=== PATIENT | female | born 1945 | race Caucasian/White ===

== ENCOUNTER 2017-03-20 00:54 | Inpatient (IN) ==
[2017-03-20] MEDS ORDERED: Ipratropium/Albuterol Neb 3 ML IH ONE (00:55)
[2017-03-20] MEDS ORDERED: predniSONE 20 MG TABLET PO ONE (00:56)
[2017-03-20] MEDS ORDERED: methylPREDNISolone 125 MG/2 ML VIAL IVP ONE (01:11)
--- NOTE | 2017-03-20 01:22 | Emergency Department Note ---
Disposition Clinical Impression: Acute exacerbation of chronic obstructive airways disease, Hypoxia Disposition: Admitted As Inpatient Condition: Undetermined Referrals: Lokesh Cooper MD [Primary Care Provider] - Forms: ED Satisfaction Letter Time of Disposition: 01:51 SOB HPI - General Chief Complaint: ED Shortness of Breath/Dyspnea Stated Complaint: matheus Time Seen by Provider: 03/20/17 00:55 Source: patient Mode of arrival: EMS Limitations: no limitations Nursing Notes Reviewed: Yes Vital Signs Reviewed: Yes - History of Present Illness 71-year-old female with history of asthma and COPD arrives [facility] [place] emergency department complaining of shortness of breath after the patient woke up this evening. The patient states that she woke up she cannot catch her breath. Upon arrival by EMS they stated that the patient's O2 saturation was 94% on room air. They quickly placed the patient on nasal cannula 6 L/m which jack her O2 saturation to 93%. The patient was complaining of epigastric pain radiating into her chest that was associated with this difficulty breathing. The patient denies any other complaints including nausea , vomiting, fever, chills, unilateral leg swelling, recent surgeries, recent immobilizations, hemoptysis, history of DVT or PE. 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 Severity: moderate, severe Consistency/Duration: constant Improves with: oxygen Worsens with: nothing Known history of: COPD Associated symptoms: Reports: chest pain Treatment prior to arrival: oxygen Cough present: No Sputum production: No - Related Data Home oxygen amount: none Home Medications Medication Instructions Recorded Confirmed Acetaminophen [Tylenol] 650 mg PO BID PRN 04/30/15 06/19/16 Aspirin Enteric Coated [Aspirin EC] 81 mg PO DAILY 04/30/15 06/19/16 Atorvastatin Calcium [Lipitor] 20 mg PO DAILY 04/30/15 06/19/16 Carvedilol [Coreg] 6.25 mg PO BID 04/30/15 06/19/16 Cyclosporine [Restasis] 1 drop OP BID 04/30/15 06/19/16 Esomeprazole Magnesium [Nexium] 40 mg PO DAILY 04/30/15 06/19/16 Fluticasone Propionate [Flovent 2 puff IH BID 04/30/15 06/19/16 Diskus] Isosorbide MONOnitrate [Isosorbide 60 mg PO DAILY 04/30/15 06/19/16 Mononitrate ER] Psyllium [Metamucil Fiber Singles 1 packet PO DAILY PRN 04/30/15 06/19/16 Packet] Alendronate Sodium [Fosamax] 70 mg PO MO 06/19/16 06/19/16 Cetirizine HCl [Zyrtec] 10 mg PO DAILY PRN 06/19/16 06/19/16 Levalbuterol [Xopenex INH] 2 puff IH Q6H 06/19/16 06/19/16 Potassium Chloride 20 meq PO BID 06/19/16 06/19/16 Quetiapine Fumarate [Seroquel] 50 mg PO HS 06/19/16 06/19/16 Previous Rx's Medication Instructions Recorded HYDROcodone/Acet 7.5/325 mg [[place] 1 tab PO BID PRN #20 tablet 05/07/15 7.5-325 mg] Calcium Carbonate/Vitamin D3 1 each PO DAILY #90 capsule 06/20/16 [Calcium 600 + Vit D Softgel] Docusate [Colace] 100 mg PO BID PRN 30 Days 06/20/16 Allergies Allergy/AdvReac Type Severity Reaction Status Date / Time ciprofloxacin [From Cipro] Allergy Hives Verified 06/19/16 11:04 meperidine [From Demerol] AdvReac Vomiting Verified 06/19/16 11:04 All systems ED: reviewed and negative except as stated. Constitutional: Denies: fever, chills, weakness, weight change Cardiovascular: Reports: chest pain. Denies: palpitations, dyspnea on exertion , edema, syncope Respiratory: Reports: dyspnea. Denies: cough, wheezes, hemoptysis, stridor Gastrointestinal: Denies: abdominal pain, nausea, vomiting, diarrhea, constipation, hematemesis, melena, hematochezia Musculoskeletal: Denies: back pain, neck pain, arthralgia, myalgia Integumentary: Denies: rash, abrasion, lesions Neurological: Denies: headache, weakness, numbness, paresthesias, confusion, abnormal gait, vertigo Past Medical History - Past Medical History Attestation: Yes The following information was validated with the patient. 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 history - Social History Smoking Status: Never smoker Smokeless Tobacco Status: No Alcohol use: Reports: none Drug use: Reports: none Physical Exam - General Limitations: no limitations General appearance: alert, in distress (moderate respiratory) - Head Head exam: atraumatic, normocephalic, normal inspection - Chest Chest inspection: Present: normal inspection, symmetric chest wall rise - Respiratory Respiratory exam: Present: wheezes (Diffuse with overall decreased breath sounds ) - Cardiovascular Cardiovascular exam: Present: regular rate, normal rhythm, normal heart sounds - Abdominal Exam Abdominal exam: Present: soft, Non-Tender. Absent: tenderness, distention, guarding, rebound, rigidity - Extremities Exam Extremities exam: Present: normal inspection, full ROM. Absent: tenderness, pedal edema - Neurological Exam Neurological exam: Present: alert, oriented X3 - Skin Skin exam: Present: warm, dry, intact, normal color Course Vital Signs Temperature 97.6 F 03/20/17 00:54 Pulse Rate 74 03/20/17 00:54 Respiratory Rate 24 03/20/17 00:54 Blood Pressure 114/102 03/20/17 00:54 O2 Sat by Pulse Oximetry 96 03/20/17 00:54 Temperature 97.6 F 03/20/17 00:54 Pulse Rate 70 03/20/17 01:29 Respiratory Rate 18 03/20/17 01:29 Blood Pressure 94/73 03/20/17 01:29 O2 Sat by Pulse Oximetry 100 03/20/17 01:29 Oxygen Delivery Oxygen Delivery Bipap Shortness of Breath/Dyspnea - MDM Narrative Medical decision making narrative: Patient noted to have bilateral trace pleural effusions on chest x-ray. This appears to be more of a COPD exacerbation and CHF exacerbation. The patient has had no unilateral leg swelling or bilateral leg swelling noted. No rails on auscultation. The patient is resting comfortably on BiPAP at this time. The patient was administered DuoNeb as well as steroids. She is resting comfortably on BiPAP. We will admit the patient to the hospital for further workup and care given her symptoms and finding of hypoxia at 62% on room air when found by EMS. The patient agrees to this plan. The patient was accepted by Dr. Diaz. - Lab Data Lab results reviewed: Yes I reviewed the patient's lab results. Result diagrams: 03/20/17 01:10 03/20/17 01:10 Lab Results 03/20/17 03/20/17 03/20/17 Range/Units 01:10 01:10 01:10 WBC 7.9 (4.3-11.1) K/mcL RBC 3.79 L (3.82-4.97) M/mcL Hgb 11.2 L (11.5-15.4) g/dL Hct 34.9 L (35.3-44.9) % MCV 92.1 (83.0-100.0) fL MCH 29.6 (28.0-33.3) pg MCHC 32.1 (31.6-35.5) g/dL RDW 13.6 (11.5-14.5) % Plt Count 160 (140-400) K/mcL MPV 10.0 (9.4-12.4) fL Immature Gran % 3.3 (0-4) % Seg Neutrophils % 83.5 % Lymphocytes % 8.1 % Monocytes % 2.4 % Eosinophils % 2.3 % Basophils % 0.4 % Neutrophils # 6.6 (1.6-8.9) K/mcL Lymphocytes # 0.6 (0.6-4.6) K/mcL Monocytes # 0.2 (0.0-1.3) K/mcL Eosinophils # 0.2 (0.0-0.6) K/mcL Basophils # 0.0 (0.0-0.2) K/mcL Sodium 140 (136-145) mEq/L Potassium 4.3 (3.5-4.5) mEq/L Chloride 106 (98-109) mEq/L Carbon Dioxide 22 (19-29) mEq/L BUN 27 H (7-20) mg/dL Creatinine 1.88 H (0.57-1.11) mg/dL Est GFR ( Amer) 32 L (> 60) Est GFR (Non-Af Amer) 26 L (> 60) BUN/Creatinine Ratio 14 (6-26) Glucose 118 H (70-99) mg/dL Calculated Osmolality 296 (280-300) Lactic Acid (0.5-2.2) mmol/L Calcium 9.3 (8.6-10.8) mg/dL Total Bilirubin 0.4 (0.2-1.2) mg/dL AST 20 (5-34) Units/L ALT 14 (0-55) Units/L Alkaline Phosphatase 75 (38-126) Units/L Troponin I 0.00 (0-0.03) ng/mL Serum Total Protein 7.9 (6.0-8.3) g/dL Albumin 3.5 (3.5-5.0) g/dL Globulin 4.4 H (2.4-3.5) g/dL Albumin/Globulin Ratio 0.8 L (1.1-2.2) 03/20/17 Range/Units 01:10 WBC (4.3-11.1) K/mcL RBC (3.82-4.97) M/mcL Hgb (11.5-15.4) g/dL Hct (35.3-44.9) % MCV (83.0-100.0) fL MCH (28.0-33.3) pg MCHC (31.6-35.5) g/dL RDW (11.5-14.5) % Plt Count (140-400) K/mcL MPV (9.4-12.4) fL Immature Gran % (0-4) % Seg Neutrophils % % Lymphocytes % % Monocytes % % Eosinophils % % Basophils % % Neutrophils # (1.6-8.9) K/mcL Lymphocytes # (0.6-4.6) K/mcL Monocytes # (0.0-1.3) K/mcL Eosinophils # (0.0-0.6) K/mcL Basophils # (0.0-0.2) K/mcL Sodium (136-145) mEq/L Potassium (3.5-4.5) mEq/L Chloride (98-109) mEq/L Carbon Dioxide (19-29) mEq/L BUN (7-20) mg/dL Creatinine (0.57-1.11) mg/dL Est GFR ( Amer) (> 60) Est GFR (Non-Af Amer) (> 60) BUN/Creatinine Ratio (6-26) Glucose (70-99) mg/dL Calculated Osmolality (280-300) Lactic Acid 2.2 (0.5-2.2) mmol/L Calcium (8.6-10.8) mg/dL Total Bilirubin (0.2-1.2) mg/dL AST (5-34) Units/L ALT (0-55) Units/L Alkaline Phosphatase (38-126) Units/L Troponin I (0-0.03) ng/mL Serum Total Protein (6.0-8.3) g/dL Albumin (3.5-5.0) g/dL Globulin (2.4-3.5) g/dL Albumin/Globulin Ratio (1.1-2.2) - Radiology Data Radiology results reviewed: Yes I reviewed the patient's radiology results. - EKG Data EKG attestation: Yes I reviewed and interpreted this EKG. EKG results narrative: Heart rate 81 bpm. MA interval 174 ms. QTc 382 ms. Normal axis. Normal sinus rhythm. No ST elevation or ST depression noted. EKG similar to EKG from 06/19/2016.
[2017-03-20 01:24] LABS: Basophils % 0.4 %; Eosinophils # 0.2 K/mcL (0.0-0.6); Eosinophils % 2.3 %; Hematocrit 34.9 % (35.3-44.9); Hemoglobin 11.2 g/dL (11.5-15.4); Immature Granulocytes % 3.3 % (0-4); Lymphocytes # 0.6 K/mcL (0.6-4.6); Lymphocytes % 8.1 %; Mean Corpuscular HGB Conc 32.1 g/dL (31.6-35.5); Mean Corpuscular Hemoglobin 29.6 pg (28.0-33.3); Mean Corpuscular Volume 92.1 fL (83.0-100.0); Monocytes # 0.2 K/mcL (0.0-1.3); Monocytes % 2.4 %; Neutrophils # 6.6 K/mcL (1.6-8.9); Platelet Count 160 K/mcL (140-400); Red Blood Count 3.79 M/mcL (3.82-4.97); Red Cell Distribution Width 13.6 % (11.5-14.5); Segmented Neutrophils % 83.5 %
--- NOTE | 2017-03-20 01:37 | Emergency Department Note ---
START Narrative - START START: I examined this patient and my medical decision-making was reviewed with the MOBILE LOUNGE DRIVER/PA/Advanced Practice Nurse/Resident Physician. I agree with the documented findings, disposition and treatment plan as described except to the extent set forth below. ED attending note: Patient seen with emergency medicine resident Dr. Head. Please see a copy of his note for details of the H&P, evaluation, management and disposition of this patient. We independently had [id number] contact with the patient Briefly: 71-year-old female by EMS for shortness of breath. Home O2 dependent COPD or woke up with extreme shortness of breath with sats down into the 70s. Perked up to the low 90s with supplemental oxygen. Patient had some expiratory wheezing some respiratory distress much improved after the emergent application of BiPAP. An breathing treatments. Provided 45 minutes critical care services to this patient. Plan is x-ray,labs, breathing treatments and admission. Disposition pending.
[2017-03-20 01:38] LABS: Albumin 3.5 g/dL (3.5-5.0); Albumin/Globulin Ratio 0.8 (1.1-2.2); Bilirubin,Total 0.4 mg/dL (0.2-1.2); Calcium 9.3 mg/dL (8.6-10.8); Globulin 4.4 g/dL (2.4-3.5); Potassium 4.3 mEq/L (3.5-4.5); Total Protein 7.9 g/dL (6.0-8.3)
[2017-03-20] MEDS ORDERED: Naloxone 0.4 MG/ML INJ IVP PRN (03:46)
[2017-03-20] MEDS ORDERED: Ondansetron 4 MG/2 ML VIAL IVP PRN (03:46)
[2017-03-20] MEDS ORDERED: Ipratropium/Albuterol Neb 3 ML IH PRN (03:48)
[2017-03-20] MEDS ORDERED: *HR* OxyCODONE/APAP 7.5/325 TABLET PO PRN (03:49)
--- NOTE | 2017-03-20 03:56 | Internal Med History&Physical ---
Date of Encounter: 03/20/17 Time of Encounter: 03:20 Assessment and Plan (1) Acute respiratory failure with hypoxia Current visit: Yes Status: Acute Secondary to COPD exacerbation Improved with O2 supplementation continue systemic steroids (Methylprednisolone 40mg IV q12h) Bronchodilator support O2 supplementation Bipap support as needed ABG as needed Patient will need to undergo O2 qualification study prior to discharge continue to monitor O2 saturation. Goal O2 sat: 89-92% Please verify home medications and resume after verification (2) Acute exacerbation of chronic obstructive airways disease Current visit: Yes Status: Acute as listed above (3) Chronic back pain Current visit: No Status: Chronic continue home medications after verification Qualifiers: Back pain location: low back pain Back pain laterality: unspecified Sciatica presence: unspecified whether sciatica present Qualified Code(s): M54.5 - Low back pain; G89.29 - Other chronic pain (4) Chronic kidney disease Current visit: No Status: Chronic Renal function at baseline continue to monitor Qualifiers: Chronic kidney disease stage: stage 3 (moderate) Qualified Code(s): N18.3 - Chronic kidney disease, stage 3 (moderate) (5) Hypertension Current visit: No Status: Chronic BP within acceptable range continue home medications after verification Qualifiers: Hypertension type: essential hypertension Qualified Code(s): I10 - Essential (primary) hypertension (6) Congestive heart failure Current visit: Yes Status: Chronic No clinical signs of acute exacerbation continue home medications in am Qualifiers: Congestive heart failure type: diastolic Congestive heart failure chronicity: chronic Qualified Code(s): I50.32 - Chronic diastolic (congestive ) heart failure (7) DVT prophylaxis Current visit: Yes Status: Acute Heparin SQ Internal Medicine - H&P: HPI Chief complaint: shortness of breath Admitted From: Home Plans for Post Hospital Care: Home History of present illness: Ms. Barber is a 71 year old female with PMH of HTN, CKD stage 3, asthma, COPD , chronic back pain, Diastolic CHF, legal blindness, GERD, and psych disorder who was brought to the ER for evaluation of severe respiratory distress. Patient reports of not being on home oxygen and had difficulty breathing. States she took her inhaler at home but that only provided her with mild relief due to which she came to the ER. Upon arrival she was found to have acute respiratory failure with hypoxia with O2 saturation in the 60s. Her respiratory distress improved with O2 supplementation. She reports of never being a smoker, however has COPD due to second hand smoking. At this time she is s/p receiving Solumedrol and duonebs. reports of significant relief in her respiratory status. Denies using oxygen therapy at home. Currently saturating well on nasal cannula. Denies any chest pain, abd pain, n/v, fever, or chills at this time. Reports of having two COPD exacerbations in the recent past. Please verify patient's home medications and start them in am. Past Med Surg Social Fam HX - Past Medical History Medical history: arthritis, asthma, cardiomyopathy, CHF, COPD, GERD, hyperlipidemia, hypertension, osteoporosis, renal disease, venous stasis, valvular heart disease, other Psychiatric history: anxiety, depression, other - Past Surgical History Surgical History: cataract, cholecystectomy, herniorrhaphy, hysterectomy, knee replacement, orthopedic, other, sinus surgery, other - Social History Smoking Status: Never smoker Smokeless Tobacco Status: No Alcohol use: none Drug use: none - Family History Sister Hx Family Endocrine Disorder: Yes Mother Living Status: Internal Medicine - H&P: Meds Acetaminophen [Tylenol] 650 mg PO BID PRN 04/30/15 [History] Aspirin Enteric Coated [Aspirin EC] 81 mg PO DAILY 04/30/15 [History] Atorvastatin Calcium [Lipitor] 20 mg PO DAILY 04/30/15 [History] Carvedilol [Coreg] 6.25 mg PO BID 04/30/15 [History] Cyclosporine [Restasis] 1 drop OP BID 04/30/15 [History] Esomeprazole Magnesium [Nexium] 40 mg PO DAILY 04/30/15 [History] Fluticasone Propionate [Flovent Diskus] 2 puff IH BID 04/30/15 [History] Isosorbide MONOnitrate [Isosorbide Mononitrate ER] 60 mg PO DAILY 04/30/15 [ History] Psyllium [Metamucil Fiber Singles Packet] 1 packet PO DAILY PRN 04/30/15 [ History] HYDROcodone/Acet 7.5/325 mg [[place] 7.5-325 mg] 1 tab PO BID PRN #20 tablet 05/07 [Rx] Alendronate Sodium [Fosamax] 70 mg PO MO 06/19/16 [History] Cetirizine HCl [Zyrtec] 10 mg PO DAILY PRN 06/19/16 [History] Levalbuterol [Xopenex INH] 2 puff IH Q6H 06/19/16 [History] Potassium Chloride 20 meq PO BID 06/19/16 [History] Quetiapine Fumarate [Seroquel] 50 mg PO HS 06/19/16 [History] Calcium Carbonate/Vitamin D3 [Calcium 600 + Vit D Softgel] 1 each PO DAILY #90 capsule 06/20/16 [Rx] Docusate [Colace] 100 mg PO BID PRN 30 Days 06/20/16 [Rx] Allergies ciprofloxacin [From Cipro] Allergy (Verified 06/19/16 11:04) Hives meperidine [From Demerol] Adverse Reaction (Verified 06/19/16 11:04) Vomiting All Systems PM: A 10-system review of systems was performed and is negative for pertinent findings except as documented above in the HPI. - Constitutional Constitutional: as per HPI - Constitutional Vitals: Temp Pulse Resp BP Pulse Ox 97.6 F 68 16 150/73 99 03/20/17 00:54 03/20/17 02:56 03/20/17 02:56 03/20/17 02:56 03/20/17 03:25 General appearance: Present: cooperative, A&O X 3, no acute distress, obese, answers questions appropriately - Head Head exam: Present: atraumatic, normocephalic - Eye Eye exam: Present: conjuntiva pink, sclera anicteric - Respiratory Respiratory exam: Present: decreased breath sounds. Absent: respiratory distress, wheezes - Cardiovascular Cardiovascular exam: Present: RRR, +S1, +S2, systolic murmur. Absent: diastolic murmur, gallop, rubs - GI/Abdominal GI/Abdominal exam: Present: normal bowel sounds, soft, no peritoneal signs. Absent: distended, tenderness - Extremities Exam Extremities exam: Present: pedal edema, warm, radial pulses palpable and symetrical. Absent: calf tenderness - Neurological Exam Neurological exam: Present: alert, oriented X3 - Psychiatric Psychiatric exam: Present: normal affect, normal mood Internal Med - H&P Results - Labs CBC & Chem 7: 03/20/17 01:10 03/20/17 01:10
[2017-03-20 04:54] LABS: Basophils % 0.1 %; Eosinophils # 0.1 K/mcL (0.0-0.6); Eosinophils % 0.9 %; Hematocrit 32.1 % (35.3-44.9); Hemoglobin 10.4 g/dL (11.5-15.4); Immature Granulocytes % 0.8 % (0-4); Lymphocytes # 0.5 K/mcL (0.6-4.6); Lymphocytes % 5.5 %; Mean Corpuscular HGB Conc 32.4 g/dL (31.6-35.5); Mean Corpuscular Hemoglobin 29.6 pg (28.0-33.3); Mean Corpuscular Volume 91.5 fL (83.0-100.0); Mean Platelet Volume 10.3 fL (9.4-12.4); Monocytes # 0.4 K/mcL (0.0-1.3); Monocytes % 3.6 %; Neutrophils # 8.8 K/mcL (1.6-8.9); Platelet Count 156 K/mcL (140-400); Red Blood Count 3.51 M/mcL (3.82-4.97); Red Cell Distribution Width 13.6 % (11.5-14.5); Segmented Neutrophils % 89.1 %
[2017-03-20 05:05] LABS: Magnesium 1.5 mg/dL (1.6-2.6); Phosphorous 2.6 mg/dL (2.3-4.7); Potassium 4.3 mEq/L (3.5-4.5)
[2017-03-20] MEDS: *HR* Heparin 5,000 UNIT/ML VIAL SQ SCH ×2 (05:59→16:07)
[2017-03-20] MEDS ORDERED: Pantoprazole 40 MG VIAL IVP SCH (06:30)
[2017-03-20] MEDS: Ipratropium/Albuterol Neb 3 ML IH SCH ×5 (07:45→23:25)
[2017-03-20] MEDS ORDERED: ALPRAZolam 0.5 MG TABLET PO PRN (07:56)
[2017-03-20] MEDS ORDERED: Magnesium Sulfate 2 GM in D5% in Water 100 ML IVPB ONE (07:59)
[2017-03-20] MEDS: Furosemide 40 MG TABLET PO SCH ×2 (08:56→20:47)
[2017-03-20] MEDS: Aspirin Enteric Coated 81 MG Tablet PO SCH (08:56)
[2017-03-20] MEDS: Isosorbide MONOnitrate (24 HR) 60 MG TAB.ER.24H PO SCH (08:56)
[2017-03-20] MEDS ORDERED: Furosemide 40 MG/4 ML VIAL IVP ONE (10:05)
--- NOTE | 2017-03-20 10:06 | Event Note ---
<Lloyd Mcginnis G - Last Filed: 03/20/17 10:03> Date of Encounter: 03/20/17 Time of Encounter: 10:04 Patient seen and examined at bedside. Patient states that her breathing feels slightly better than on admission. She does report some mild chest pain associated with deep breathing and cough. She denies fever, chills. On physical exam the patient has some scattered end expiratory wheezes, no rales or rhonchi noted. Heart is regular rate and rhythm with no murmurs rubs or gallops. Abdomen soft nontender nondistended with normoactive bowel sounds. Patient has 1+ lower extremity pitting edema. Plan is to continue current treatment for COPD exacerbation during IV steroids, antibiotics, scheduled bronchodilators. For patient's lower extremity edema we will continue with her home by mouth Lasix and give a one-time dose of IV Lasix. No shortness of breath, does not appear to be in acute heart failure. <Liu Shrestha - Last Filed: 03/20/17 17:22> Date of Encounter: 03/20/17 I examined this patient and my medical decision-making was reviewed with the SPOT REMOVER/PA/Advanced Practice Nurse/Resident Physician. I agree with the documented findings, disposition and treatment plan as described except to the extent set forth below.
[2017-03-20] MEDS: Acetaminophen 325 MG TABLET PO PRN ×2 (11:31→20:47)
[2017-03-20] MEDS: MethylPREDNISolone 40 MG/ML VIAL IVP SCH ×2 (11:32→20:47)
--- NOTE | 2017-03-20 13:08 | Electrocardiograph Report ---
[place] [address] Test Date: 2017-03-20 Pat Name: Janiya Barber Department: 105 Room: 2NE24 Gender: F Operations Developer: BRYCE : [id number] Requested By: Jose Rafael Head Order Number: [id number] Reading MD: Arnaud Strickland MD Measurements Intervals [place] Rate: 81 P: 59 NC: 174 QRS: 45 QRSD: 88 T: 61 QT: 345 QTc: 382 Interpretive Statements SINUS RHYTHM BASELINE ARTIFACT Electronically Signed On 03-20-2017 13:06:47 EDT by Arnaud Strickland MD
[2017-03-21] MEDS: Ipratropium/Albuterol Neb 3 ML IH SCH ×6 (04:08→23:39)
[2017-03-21] MEDS: *HR* Heparin 5,000 UNIT/ML VIAL SQ SCH ×2 (04:39→18:20)
[2017-03-21] MEDS: Isosorbide MONOnitrate (24 HR) 60 MG TAB.ER.24H PO SCH (08:24)
[2017-03-21] MEDS: Furosemide 40 MG TABLET PO SCH (08:24)
[2017-03-21] MEDS: Aspirin Enteric Coated 81 MG Tablet PO SCH (08:25)
[2017-03-21] MEDS: MethylPREDNISolone 40 MG/ML VIAL IVP SCH ×2 (08:25→22:05)
[2017-03-21 09:41] LABS: Albumin 3.2 g/dL (3.5-5.0); Albumin/Globulin Ratio 0.8 (1.1-2.2); Bilirubin,Total 0.2 mg/dL (0.2-1.2); Calcium 9.1 mg/dL (8.6-10.8); Globulin 4.1 g/dL (2.4-3.5); Potassium 4.4 mEq/L (3.5-4.5); Total Protein 7.3 g/dL (6.0-8.3)
[2017-03-21 09:45] LABS: Eosinophils % 0.1 %; Hematocrit 30.7 % (35.3-44.9); Hemoglobin 10.4 g/dL (11.5-15.4); Immature Granulocytes % 0.3 % (0-4); Lymphocytes # 0.6 K/mcL (0.6-4.6); Mean Corpuscular HGB Conc 33.9 g/dL (31.6-35.5); Mean Corpuscular Hemoglobin 30.4 pg (28.0-33.3); Mean Corpuscular Volume 89.8 fL (83.0-100.0); Mean Platelet Volume 10.9 fL (9.4-12.4); Monocytes # 0.4 K/mcL (0.0-1.3); Monocytes % 3.2 %; Neutrophils # 10.1 K/mcL (1.6-8.9); Platelet Count 162 K/mcL (140-400); Red Blood Count 3.42 M/mcL (3.82-4.97); Red Cell Distribution Width 13.8 % (11.5-14.5); Segmented Neutrophils % 91.4 %
--- NOTE | 2017-03-21 15:26 | Internal Med Progress Note ---
Date of Encounter: 03/21/17 Time of Encounter: 15:26 - Assessment and plan (1) Acute respiratory failure with hypoxia Current Visit: Yes Status: Acute Assessment and plan: Admitted with COPD exacerbation. On ceftriaxone/azithromycin Methyl prednisone every 12 hours Inhaled bronchodilators. Patient feels much better as compared to yesterday. Plan: We will continue present management (2) Acute exacerbation of chronic obstructive airways disease Current Visit: Yes Status: Acute Assessment and plan: Patient is much improved as compared to yesterday. Antibiotics are needed in view of COPD exacerbation. (3) Chronic kidney disease Current Visit: No Status: Chronic Assessment and plan: Noted that patient's creatinine has worsened. Lasix discontinued. Patient follows with Dr. Clark. If the creatinine is not downward trend tomorrow then we will get Dr. Barbour's help Qualifiers: Chronic kidney disease stage: stage 3 (moderate) Qualified Code(s): N18.3 - Chronic kidney disease, stage 3 (moderate) (4) Hypertension Current Visit: No Status: Chronic Assessment and plan: Presently within acceptable range Qualifiers: Hypertension type: essential hypertension Qualified Code(s): I10 - Essential (primary) hypertension - Subjective Interval history: Patient seen and examined. Chart reviewed. Patient is sitting up in a chair and was taking breathing treatment at the time of examination. Patient denies chest pain, shortness of breath, abdominal pain, nausea and vomiting. - Constitutional Vitals: Temp Pulse Resp BP Pulse Ox 97.6 F 64 16 118/60 96 03/21/17 12:04 03/21/17 12:04 03/21/17 12:04 03/21/17 12:04 03/21/17 12:04 General appearance: Present: cooperative, A&O X 3, no acute distress, obese, answers questions appropriately - Head Head exam: Present: atraumatic, normocephalic - Eye Eye exam: Present: PERRL, conjuntiva pink, sclera anicteric Pupils: Present: PERRL - Neck Neck exam general surgery: Present: supple, trachea midline. Absent: lymphadenopathy - Respiratory Respiratory exam: Present: CTAB, rhonchi. Absent: accessory muscle use, rales, wheezes Additional comments: Still has occasional polyphonic rhonchi. - Cardiovascular Cardiovascular exam: Present: RRR, +S1, +S2. Absent: diastolic murmur, gallop, rubs, systolic murmur - GI/Abdominal GI/Abdominal exam: Present: normal bowel sounds, soft, no peritoneal signs. Absent: distended, tenderness - Extremities Exam Extremities exam: Present: warm, radial pulses palpable and symetrical. Absent : calf tenderness, cyanotic, pedal edema - Neurological Exam Neurological exam: Present: CN II-XII intact, oriented X3, no focal deficits. Absent: pronater drift, facial droop, speech deficit - Skin Skin exam: Present: dry, intact Internal Medicine: Result - Labs CBC & Chem 7: 03/21/17 09:05 03/21/17 09:05 Labs: Short CBC 03/21/17 Range/Units 09:05 WBC 11.1 (4.3-11.1) K/mcL Hgb 10.4 L (11.5-15.4) g/dL Hct 30.7 L (35.3-44.9) % Plt Count 162 (140-400) K/mcL Neutrophils # 10.1 H (1.6-8.9) K/mcL BMP 03/21/17 09:05 Sodium 135 L Potassium 4.4 Chloride 103 Carbon Dioxide 23 BUN 35 H Creatinine 2.10 H Glucose 169 H Calcium 9.1 Liver Function 03/21/17 Range/Units 09:05 Total Bilirubin 0.2 (0.2-1.2) mg/dL AST 17 (5-34) Units/L ALT 10 (0-55) Units/L Alkaline Phosphatase 60 (38-126) Units/L Albumin 3.2 L (3.5-5.0) g/dL Consult Discharge Plan - Plan Referrals: Lokesh Cooper MD [Primary Care Provider] -
[2017-03-21] MEDS: Azithromycin 500 MG in D5% in Water 250 ML IVPB SCH (18:20)
[2017-03-21] MEDS: Acetaminophen 325 MG TABLET PO PRN (22:05)
[2017-03-22] MEDS: Ipratropium/Albuterol Neb 3 ML IH SCH ×5 (04:15→19:52)
[2017-03-22 04:31] LABS: Basophils % 0.1 %; Eosinophils % 0.2 %; Hematocrit 29.5 % (35.3-44.9); Hemoglobin 9.8 g/dL (11.5-15.4); Immature Granulocytes % 0.8 % (0-4); Lymphocytes # 0.4 K/mcL (0.6-4.6); Lymphocytes % 3.6 %; Mean Corpuscular HGB Conc 33.2 g/dL (31.6-35.5); Mean Corpuscular Hemoglobin 29.6 pg (28.0-33.3); Mean Corpuscular Volume 89.1 fL (83.0-100.0); Mean Platelet Volume 10.8 fL (9.4-12.4); Monocytes # 0.4 K/mcL (0.0-1.3); Monocytes % 3.1 %; Nucleated Red Blood Cells 0.2 /100 WBC (0); Platelet Count 167 K/mcL (140-400); Red Blood Count 3.31 M/mcL (3.82-4.97); Red Cell Distribution Width 13.9 % (11.5-14.5); Segmented Neutrophils % 92.2 %
[2017-03-22 04:34] LABS: Albumin/Globulin Ratio 0.8 (1.1-2.2); Bilirubin,Total 0.2 mg/dL (0.2-1.2); Calcium 8.6 mg/dL (8.6-10.8); Globulin 3.7 g/dL (2.4-3.5); Potassium 5.1 mEq/L (3.5-4.5); Total Protein 6.7 g/dL (6.0-8.3)
[2017-03-22] MEDS: *HR* Heparin 5,000 UNIT/ML VIAL SQ SCH ×2 (05:42→17:54)
[2017-03-22] MEDS: Acetaminophen 325 MG TABLET PO PRN ×2 (05:47→20:57)
[2017-03-22] MEDS: Aspirin Enteric Coated 81 MG Tablet PO SCH (08:44)
[2017-03-22] MEDS: MethylPREDNISolone 40 MG/ML VIAL IVP SCH ×2 (08:44→20:57)
[2017-03-22] MEDS: Isosorbide MONOnitrate (24 HR) 60 MG TAB.ER.24H PO SCH (08:44)
--- NOTE | 2017-03-22 14:33 | Internal Med Progress Note ---
Date of Encounter: 03/22/17 Time of Encounter: 14:31 - Assessment and plan (1) Acute respiratory failure with hypoxia Current Visit: Yes Status: Acute Assessment and plan: Admitted with COPD exacerbation. On ceftriaxone/azithromycin Methyl prednisone every 12 hours Inhaled bronchodilators. Patient feels much better as compared to yesterday. Plan: We will continue present management 03/22/2017 Patient has a significant improvement in terms of her respiratory failure. Patient is no more hypoxic. Patient is using 2 L of oxygen and her oxygen saturation is between 90 and 92. Plan: Will continue present management at this point. (2) Acute exacerbation of chronic obstructive airways disease Current Visit: Yes Status: Acute Assessment and plan: Patient is much improved as compared to yesterday. Antibiotics are needed in view of COPD exacerbation. 03/22/2017 Patient is presently on antibiotics, steroids, bronchodilator (3) Chronic kidney disease Current Visit: No Status: Chronic Assessment and plan: Noted that patient's creatinine has worsened. Lasix discontinued. Patient follows with Dr. Clark. If the creatinine is not downward trend tomorrow then we will get Dr. Barbour's help 03/22/2017 Noted that patient's creatinine improved from 2.1-1.9. We will discontinue IV Lasix. We will get nephrology evaluation tomorrow morning. Qualifiers: Chronic kidney disease stage: stage 3 (moderate) Qualified Code(s): N18.3 - Chronic kidney disease, stage 3 (moderate) (4) Hypertension Current Visit: No Status: Chronic Assessment and plan: Presently within acceptable range Qualifiers: Hypertension type: essential hypertension Qualified Code(s): I10 - Essential (primary) hypertension - Subjective Interval history: Patient seen and examined. Chart reviewed. Patient is sitting up in a chair and was taking breathing treatment at the time of examination. Patient denies chest pain, shortness of breath, abdominal pain, nausea and vomiting. 03/22/2017 Patient seen and examined. Chart reviewed. Patient is lying in a bed comfortably. Patient denies any chest pain, shortness of breath, nausea, vomiting and diarrhea. - Constitutional Vitals: Temp Pulse Resp BP Pulse Ox 97.8 F 64 16 131/73 94 03/22/17 12:00 03/22/17 12:00 03/22/17 12:00 03/22/17 12:03/22/17 12:00 General appearance: Present: cooperative, A&O X 3, no acute distress, obese, answers questions appropriately - Head Head exam: Present: atraumatic, normocephalic - Eye Eye exam: Present: PERRL, conjuntiva pink, sclera anicteric Pupils: Present: PERRL - Neck Neck exam general surgery: Present: supple, trachea midline. Absent: lymphadenopathy - Respiratory Respiratory exam: Present: CTAB. Absent: accessory muscle use, rales, rhonchi, wheezes - Cardiovascular Cardiovascular exam: Present: RRR, +S1, +S2. Absent: diastolic murmur, gallop, rubs, systolic murmur - GI/Abdominal GI/Abdominal exam: Present: normal bowel sounds, soft, no peritoneal signs. Absent: distended, tenderness - Extremities Exam Extremities exam: Present: warm, radial pulses palpable and symetrical. Absent : calf tenderness, cyanotic, pedal edema - Neurological Exam Neurological exam: Present: CN II-XII intact, oriented X3, no focal deficits. Absent: pronater drift, facial droop, speech deficit - Skin Skin exam: Present: dry, intact Internal Medicine: Result - Labs CBC & Chem 7: 03/22/17 04:01 03/22/17 04:01 Labs: Short CBC 03/22/17 Range/Units 04:01 WBC 11.9 H (4.3-11.1) K/mcL Hgb 9.8 L (11.5-15.4) g/dL Hct 29.5 L (35.3-44.9) % Plt Count 167 (140-400) K/mcL Neutrophils # 11.0 H (1.6-8.9) K/mcL BMP 03/22/17 04:01 Sodium 136 Potassium 5.1 H Chloride 104 Carbon Dioxide 24 BUN 47 H D Creatinine 1.90 H Glucose 137 H Calcium 8.6 Liver Function 03/22/17 Range/Units 04:01 Total Bilirubin 0.2 (0.2-1.2) mg/dL AST 15 (5-34) Units/L ALT 10 (0-55) Units/L Alkaline Phosphatase 53 (38-126) Units/L Albumin 3.0 L (3.5-5.0) g/dL Consult Discharge Plan - Plan Referrals: Lokesh Cooper MD [Primary Care Provider] -
[2017-03-22] MEDS: Azithromycin 500 MG in D5% in Water 250 ML IVPB SCH (17:55)
[2017-03-22] MEDS: Menthol 9.1 MG LOZENGE PO PRN ×2 (19:31→21:53)
[2017-03-23] MEDS: Ipratropium/Albuterol Neb 3 ML IH SCH ×5 (00:09→15:51)
[2017-03-23 04:17] LABS: Basophils % 0.1 %; Hematocrit 29.7 % (35.3-44.9); Hemoglobin 9.7 g/dL (11.5-15.4); Immature Granulocytes % 1.1 % (0-4); Lymphocytes # 0.4 K/mcL (0.6-4.6); Lymphocytes % 3.7 %; Mean Corpuscular HGB Conc 32.7 g/dL (31.6-35.5); Mean Corpuscular Hemoglobin 29.5 pg (28.0-33.3); Mean Corpuscular Volume 90.3 fL (83.0-100.0); Mean Platelet Volume 10.8 fL (9.4-12.4); Monocytes # 0.4 K/mcL (0.0-1.3); Monocytes % 3.9 %; Neutrophils # 10.2 K/mcL (1.6-8.9); Platelet Count 165 K/mcL (140-400); Red Blood Count 3.29 M/mcL (3.82-4.97); Red Cell Distribution Width 14.1 % (11.5-14.5); Segmented Neutrophils % 91.2 %
[2017-03-23] MEDS: *HR* Heparin 5,000 UNIT/ML VIAL SQ SCH (04:29)
[2017-03-23 04:35] LABS: Albumin 2.9 g/dL (3.5-5.0); Albumin/Globulin Ratio 0.8 (1.1-2.2); Bilirubin,Total 0.2 mg/dL (0.2-1.2); Calcium 8.3 mg/dL (8.6-10.8); Globulin 3.6 g/dL (2.4-3.5); Potassium 4.7 mEq/L (3.5-4.5); Total Protein 6.5 g/dL (6.0-8.3)
[2017-03-23] MEDS: Isosorbide MONOnitrate (24 HR) 60 MG TAB.ER.24H PO SCH (08:40)
[2017-03-23] MEDS: Aspirin Enteric Coated 81 MG Tablet PO SCH (08:40)
[2017-03-23] MEDS: MethylPREDNISolone 40 MG/ML VIAL IVP SCH (08:41)
[2017-03-23] MEDS: Acetaminophen 325 MG TABLET PO PRN (08:44)
--- NOTE | 2017-03-23 09:38 | Nephrology Consult Note ---
Date of Encounter: 03/23/17 Time of Encounter: 09:36 Assessment and Plan (1) Chronic kidney disease, stage III (moderate) Current Visit: Yes Status: Acute The patient has late stage III to early stage IV chronic kidney disease. Currently she is at her baseline. From renal perspective she is stable. It is okay for her to be discharged home. She can follow-up as an outpatient. (2) Acute exacerbation of chronic obstructive airways disease Current Visit: Yes Status: Acute History of Present Illness - History of Present Illness This is a 71-year-old female who is followed as an outpatient for stage III chronic kidney disease. Patient was admitted with worsening shortness of breath thought to be related to acute exacerbation of COPD. Baseline creatinine is 1.6-1.8. During the patient's hospital stay her creatinine went up to 2.10. Currently she is back down to 1.82 which is within her baseline. She reports that her breathing is improved. She does have chronic lower extremity swelling. She denies any chest pain. She denies any difficulty emptying her bladder. Overall she seems to be back to her previous baseline. Past Med Surg Social Fam HX - Past Medical History Medical history: arthritis, asthma, cardiomyopathy, CHF, COPD, GERD, hyperlipidemia, hypertension, osteoporosis, renal disease, venous stasis, valvular heart disease, other Psychiatric history: anxiety, depression, other - Past Surgical History Surgical History: cataract, cholecystectomy, herniorrhaphy, hysterectomy, knee replacement, orthopedic, other, sinus surgery, other - Social History Smoking Status: Never smoker Smokeless Tobacco Status: No Alcohol use: none Drug use: none - Family History Sister Hx Family Endocrine Disorder: Yes Mother Living Status: Medications and Allergies Acetaminophen [Tylenol] 650 mg PO BID PRN 04/30/15 [History] Aspirin Enteric Coated [Aspirin EC] 81 mg PO DAILY 04/30/15 [History] Atorvastatin Calcium [Lipitor] 20 mg PO DAILY 04/30/15 [History] Carvedilol [Coreg] 6.25 mg PO BID 04/30/15 [History] Cyclosporine [Restasis] 1 drop OP BID 04/30/15 [History] Esomeprazole Magnesium [Nexium] 40 mg PO DAILY 04/30/15 [History] Fluticasone Propionate [Flovent Diskus] 2 puff IH BID 04/30/15 [History] Isosorbide MONOnitrate [Isosorbide Mononitrate ER] 60 mg PO DAILY 04/30/15 [ History] HYDROcodone/Acet 7.5/325 mg [[place] 7.5-325 mg] 1 tab PO BID PRN #20 tablet 05/07 [Rx] Alendronate Sodium [Fosamax] 70 mg PO MO 06/19/16 [History] Cetirizine HCl [Zyrtec] 10 mg PO DAILY PRN 06/19/16 [History] Levalbuterol [Xopenex INH] 2 puff IH Q6H 06/19/16 [History] Potassium Chloride 20 meq PO BID 06/19/16 [History] Quetiapine Fumarate [Seroquel] 50 mg PO HS 06/19/16 [History] Calcium Carbonate/Vitamin D3 [Calcium 600 + Vit D Softgel] 1 each PO DAILY #90 capsule 06/20/16 [Rx] Docusate [Colace] 100 mg PO BID PRN 30 Days 06/20/16 [Rx] ALPRAZolam [Xanax 0.5 MG Tablet] 0.5 mg PO DAILY PRN 03/20/17 [History] Calcitriol [Rocaltrol] 0.25 mcg PO DAILY 03/20/17 [History] Fluticasone Propionate Nasal [Flonase] 1 spray NS DAILY 03/20/17 [History] Furosemide [Lasix] 40 mg PO BID 03/20/17 [History] Guaifenesin [Mucinex] 600 mg PO BID PRN 03/20/17 [History] Lactulose 15 ml PO TID PRN 03/20/17 [History] Olopatadine HCl [Pataday] 1 drop OP AD 03/20/17 [History] Allergies ciprofloxacin [From Cipro] Allergy (Verified 06/19/16 11:04) Hives meperidine [From Demerol] Adverse Reaction (Verified 06/19/16 11:04) Vomiting Review of Systems Constitutional: as per HPI Eyes: bilateral: loss of vision Nose, mouth and throat: no dizziness, no headache(s) Cardiovascular: as per HPI, dyspnea, dyspnea on exertion, edema Respiratory: dyspnea, dyspnea on exertion Gastrointestinal: as per HPI Musculoskeletal: no muscle weakness, no numbness Integumentary: no hirsutism, no striae Neurological: as per HPI Psychiatric: no depression, no difficulty concentrating Endocrine: as per HPI Hematologic/Lymphatic: no easy bruising, no lymphadenopathy Exam - Vital Signs Vital signs: Initial Vital Signs Temp Pulse Resp BP Pulse Ox 97.6 F 74 24 114/102 96 03/20/17 00:54 03/20/17 00:54 03/20/17 00:54 03/20/17 00:54 03/20/17 00:54 Vital Signs - Last 8 Hours Temp Pulse Resp BP Pulse Ox 03/23/17 08:52 96 03/23/17 07:46 18 96 03/23/17 07:00 66 16 132/67 97 03/23/17 04:15 97.9 F 72 18 142/63 95 03/23/17 03:53 14 99 Intake and Output 03/22/17 03/23/17 03/23/17 23:59 07:59 15:59 Intake Total 340 / 340 240 / 240 Output Total 200 / 200 Balance 140 / 140 240 / 240 Intake: IV Fluids 100 / 100 Rocephin 1,000 MG In 100 / 100 Dextrose 5% (Minibag+) 100 ML 100 ML @ 200 mls/ hr IVPB Q24H [facility] Rx#: [id number] Oral 240 / 240 240 / 240 Output: Urine 200 / 200 Other: Meal Dinner Breakfast Percent of Meal Consumed 100% 100% Weight 91.8 kg Patient Weight 03/23/17 23:59 Weight 91.8 kg - General Appearance Exam: The patient is alert and oriented. She is in no acute distress. Neck is supple. Lungs symmetric breath sounds otherwise clear. Heart regular rate and rhythm with a 2/6 talk ejection murmur. Abdomen is benign. Lower extremities show 1+ lower extremity swelling. Results - Lab Results 03/23/17 03:57 03/23/17 03:57 Most recent lab results Calcium 8.3 mg/dL (8.6-10.8) L 03/23/17 03:57 Phosphorus 2.6 mg/dL (2.3-4.7) 03/20/17 04:05 Magnesium 1.5 mg/dL (1.6-2.6) L 03/20/17 04:05 Consult Discharge Plan - Plan Additional Instructions: pcp requested Referrals: Lokesh Cooper MD [Primary Care Provider] -
--- NOTE | 2017-03-23 15:11 | Discharge Summary ---
<Jose Pichardo - Last Filed: 03/23/17 17:14> Date of Encounter: 03/23/17 Time of Encounter: 14:57 - Discharge Diagnosis (1) Acute exacerbation of chronic obstructive airways disease Priority: Primary Status: Acute (2) Acute respiratory failure with hypoxia Priority: Primary Status: Acute Comments: resolved (3) Hypertension Priority: Secondary Status: Chronic Qualifiers: Hypertension type: essential hypertension Qualified Code(s): I10 - Essential (primary) hypertension (4) Chronic kidney disease Priority: Secondary Status: Chronic Qualifiers: Chronic kidney disease stage: stage 3 (moderate) Qualified Code(s): N18.3 - Chronic kidney disease, stage 3 (moderate) - Discharge Medications Prescriptions: Cefdinir [Omnicef] 300 mg PO BID 3 Days PredniSONE [Deltasone] 20 mg PO BID 5 Days Home Medications: Acetaminophen [Tylenol] 650 mg PO BID PRN 04/30/15 [History] Aspirin Enteric Coated [Aspirin EC] 81 mg PO DAILY 04/30/15 [History] Atorvastatin Calcium [Lipitor] 20 mg PO DAILY 04/30/15 [History] Carvedilol [Coreg] 6.25 mg PO BID 04/30/15 [History] Cyclosporine [Restasis] 1 drop OP BID 04/30/15 [History] Esomeprazole Magnesium [Nexium] 40 mg PO DAILY 04/30/15 [History] Fluticasone Propionate [Flovent Diskus] 2 puff IH BID 04/30/15 [History] Isosorbide MONOnitrate [Isosorbide Mononitrate ER] 60 mg PO DAILY 04/30/15 [ History] HYDROcodone/Acet 7.5/325 mg [[place] 7.5-325 mg] 1 tab PO BID PRN #20 tablet 05/07 [Rx] Alendronate Sodium [Fosamax] 70 mg PO MO 06/19/16 [History] Cetirizine HCl [Zyrtec] 10 mg PO DAILY PRN 06/19/16 [History] Levalbuterol [Xopenex INH] 2 puff IH Q6H 06/19/16 [History] Potassium Chloride 20 meq PO BID 06/19/16 [History] Quetiapine Fumarate [Seroquel] 50 mg PO HS 06/19/16 [History] Calcium Carbonate/Vitamin D3 [Calcium 600 + Vit D Softgel] 1 each PO DAILY #90 capsule 06/20/16 [Rx] Docusate [Colace] 100 mg PO BID PRN 30 Days 06/20/16 [Rx] ALPRAZolam [Xanax 0.5 MG Tablet] 0.5 mg PO DAILY PRN 03/20/17 [History] Calcitriol [Rocaltrol] 0.25 mcg PO DAILY 03/20/17 [History] Fluticasone Propionate Nasal [Flonase] 1 spray NS DAILY 03/20/17 [History] Furosemide [Lasix] 40 mg PO BID 03/20/17 [History] Guaifenesin [Mucinex] 600 mg PO BID PRN 03/20/17 [History] Lactulose 15 ml PO TID PRN 03/20/17 [History] Olopatadine HCl [Pataday] 1 drop OP AD 03/20/17 [History] Cefdinir [Omnicef] 300 mg PO BID 3 Days 03/23/17 [Rx] PredniSONE [Deltasone] 20 mg PO BID 5 Days 03/23/17 [Rx] Allergies/Adverse Reactions: Allergies ciprofloxacin [From Cipro] Allergy (Verified 06/19/16 11:04) Hives meperidine [From Demerol] Adverse Reaction (Verified 06/19/16 11:04) Vomiting Date of admission: 03/20/17 03:46 Primary care physician: Lokesh Cooper MD Discharging clinician: Jose Pichardo Anticipated date of discharge: 03/23/17 - Patient Status Disposition: Home Health Service Condition: Good Functional capacity at discharge: uses cane/walker Overall status at discharge: patient is progressing back to baseline - Discharge Instructions Instructions: Chronic Obstructive Pulmonary Disease (DC) Follow Up With: Lokesh Cooper MD [Primary Care Provider] - Additional Instructions: pcp requested - Diet and Activity Activity: resume usual activities as tolerated Diet: advance to your usual diet Hospital course: Ms. Barber is a 71 year old female with a past medical history of COPD, asthma who was admitted to the [facility] for an acute exacerbation of COPD as well as acute hypoxemic respiratory failure. The patient was treated with bronchodilators, foods, and antibiotics. She improved significantly. She has had an uncomplicated hospital course. Today she states she is back to her baseline. She is on room air and saturating in the 90s without difficulty. Additionally she has clear breath sounds bilaterally and appears to be comfortable on exam. She has no major vital signs or laboratory abnormalities today. We will discharge her home with home health. Patient has a home health aide establish. At this time the patient voices back her understanding and agreement to the above plan. - Time Spent with Patient Total time spent providing and/or coordinating discharge services: Greater than 30 minutes - Constitutional Vitals: Temp Pulse Resp BP Pulse Ox 97.9 F 66 18 132/67 97 03/23/17 04:15 03/23/17 07:00 03/23/17 11:05 03/23/17 07:00 03/23/17 12:09 Exam: Gen.: This is a well-developed well-nourished 71-year-old female who is alert and orientated to person place time and situation. She sitting in the hospital bed appears to be comfortable and in no acute distress at this time. HEENT: Anicteric sclera, pupils are mildly disproportionate. With the left being greater than right. She states this is her baseline. Pupils are reactive to light. Normal external appearance of ears, nose and eyes. , moist mucous membranes, poor dentition, neck is supple without mass or thyromegaly. No cervical submandibular or supraclavicular lymphadenopathy palpable on exam. Heart: Regular rate and rhythm without murmurs rubs or gallops are Lungs: She has normal effort of breathing. Normal rise express of the chest wall bilaterally. Clear to auscultation bilaterally. Abdomen: The abdomen is obese, nondistended, bowel sounds are positive in all quadrants. No bruits no organomegaly. No tenderness to palpation. Musculoskeletal: Grossly normal for age no gross deformity noted. Extremities: There is no clubbing or cyanosis. She does have a 1+ pedal pedal edema bilaterally that is symmetric. Integument: No rashes or lesions were noted on exam. <Liu Shrestha P - Last Filed: 03/23/17 17:44> Date of Encounter: 03/23/17 - Discharge Diagnosis (1) Acute respiratory failure with hypoxia Status: Acute (2) Acute exacerbation of chronic obstructive airways disease Status: Acute (3) Chronic kidney disease Status: Chronic Qualifiers: Chronic kidney disease stage: stage 3 (moderate) Qualified Code(s): N18.3 - Chronic kidney disease, stage 3 (moderate) (4) Hypertension Status: Chronic Qualifiers: Hypertension type: essential hypertension Qualified Code(s): I10 - Essential (primary) hypertension Date of admission: 03/20/17 03:46 Primary care physician: Lokesh Cooper MD Hospital course: Ms. Barber is a 71 year old female - Time Spent with Patient Total time spent providing and/or coordinating discharge services: - Constitutional Vitals: Temp Pulse Resp BP Pulse Ox 97.9 F 66 17 132/67 98 03/23/17 04:15 03/23/17 07:00 03/23/17 15:52 03/23/17 07:00 03/23/17 15:52 - Attending Attestation I examined this patient and my medical decision-making was reviewed with the MECHANICAL OPERATOR/PA/Advanced Practice Nurse/Resident Physician. I agree with the documented findings, disposition and treatment plan as described except to the extent set forth below.
--- NOTE | 2017-03-23 15:32 | Physician Discharge Referral ---
<Jose Pichardo - Last Filed: 03/23/17 17:14> Home Health/Hosp Referral Info Transfer to: Home Health Provider in Charge Post Discharge: PCP - Diagnosis (1) Acute exacerbation of chronic obstructive airways disease Status: Acute (2) Acute respiratory failure with hypoxia Status: Acute (3) Hypertension Status: Chronic (4) Chronic kidney disease Status: Chronic - Respiratory Orders Smoking Cessation: Smoking cessation has been advised. For more information, call the [place] Tobacco Quit Line at 0-778-NGGP-NOW. - Diet/Nutrition Diet/Nutrition Orders: Cardiac - Activity Activity Orders: Walker (with assistance.) - Services Needed Following services are medically necessary services: Nursing, Home Health Aide, Physical Therapy, Occupational Therapy - Transfer Medications Prescriptions: Cefdinir [Omnicef] 300 mg PO BID 3 Days PredniSONE [Deltasone] 20 mg PO BID 5 Days Home Medications: Acetaminophen [Tylenol] 650 mg PO BID PRN 04/30/15 [History] Aspirin Enteric Coated [Aspirin EC] 81 mg PO DAILY 04/30/15 [History] Atorvastatin Calcium [Lipitor] 20 mg PO DAILY 04/30/15 [History] Carvedilol [Coreg] 6.25 mg PO BID 04/30/15 [History] Cyclosporine [Restasis] 1 drop OP BID 04/30/15 [History] Esomeprazole Magnesium [Nexium] 40 mg PO DAILY 04/30/15 [History] Fluticasone Propionate [Flovent Diskus] 2 puff IH BID 04/30/15 [History] Isosorbide MONOnitrate [Isosorbide Mononitrate ER] 60 mg PO DAILY 04/30/15 [ History] HYDROcodone/Acet 7.5/325 mg [[place] 7.5-325 mg] 1 tab PO BID PRN #20 tablet 05/07 [Rx] Alendronate Sodium [Fosamax] 70 mg PO MO 06/19/16 [History] Cetirizine HCl [Zyrtec] 10 mg PO DAILY PRN 06/19/16 [History] Levalbuterol [Xopenex INH] 2 puff IH Q6H 06/19/16 [History] Potassium Chloride 20 meq PO BID 06/19/16 [History] Quetiapine Fumarate [Seroquel] 50 mg PO HS 06/19/16 [History] Calcium Carbonate/Vitamin D3 [Calcium 600 + Vit D Softgel] 1 each PO DAILY #90 capsule 06/20/16 [Rx] Docusate [Colace] 100 mg PO BID PRN 30 Days 06/20/16 [Rx] ALPRAZolam [Xanax 0.5 MG Tablet] 0.5 mg PO DAILY PRN 03/20/17 [History] Calcitriol [Rocaltrol] 0.25 mcg PO DAILY 03/20/17 [History] Fluticasone Propionate Nasal [Flonase] 1 spray NS DAILY 03/20/17 [History] Furosemide [Lasix] 40 mg PO BID 03/20/17 [History] Guaifenesin [Mucinex] 600 mg PO BID PRN 03/20/17 [History] Lactulose 15 ml PO TID PRN 03/20/17 [History] Olopatadine HCl [Pataday] 1 drop OP AD 03/20/17 [History] Cefdinir [Omnicef] 300 mg PO BID 3 Days 03/23/17 [Rx] PredniSONE [Deltasone] 20 mg PO BID 5 Days 03/23/17 [Rx] Allergies/Adverse Reactions: Allergies ciprofloxacin [From Cipro] Allergy (Verified 06/19/16 11:04) Hives meperidine [From Demerol] Adverse Reaction (Verified 06/19/16 11:04) Vomiting Certification: Further, I certify that my clinical findings support that this patient is homebound (i.e. absences from home require considerable and taxing effort and are for medical reasons or congregation services or infrequently or short duration when for other reasons) because: Homebound Reason: Leaving home requires considerable and taxing effort due to condition, Severity of cardiac or pulmonary status limits activity tolerance Attestation: My signature below is to certify that this patient is under my care and that I, or nurse practitioner, or a physician's assistant banquet manager working with me, has a face-to -face encounter with this patient. <Liu Shrestha - Last Filed: 03/23/17 17:44> - Diagnosis (1) Acute respiratory failure with hypoxia Status: Acute (2) Acute exacerbation of chronic obstructive airways disease Status: Acute (3) Chronic kidney disease Status: Chronic (4) Hypertension Status: Chronic - Respiratory Orders Smoking Cessation: Smoking cessation has been advised. For more information, call the [place] Tobacco Quit Line at 3-716-LKOI-NOW. Certification: Further, I certify that my clinical findings support that this patient is homebound (i.e. absences from home require considerable and taxing effort and are for medical reasons or congregation services or infrequently or short duration when for other reasons) because: Attestation: My signature below is to certify that this patient is under my care and that I, or nurse practitioner, or a physician's assistant banquet manager working with me, has a face-to -face encounter with this patient.
[2017-03-28 12:35] VITALS: BP 132/67
== END 2017-03-23 18:17 | disposition home health service (06) | DRG 190 ==
LOC: EMEROO 00:54 → 2NENU 00:54
PROVIDERS: ADMIT Internal Medicine; ATTEND Internal Medicine

== ENCOUNTER 2017-10-06 13:28 | Inpatient (IN) ==
[2017-10-06] MEDS ORDERED: Ipratropium/Albuterol Neb 3 ML IH ONE (13:33)
[2017-10-06] MEDS ORDERED: Furosemide 40 MG/4 ML VIAL IVP ONE (13:33)
[2017-10-06] MEDS ORDERED: methylPREDNISolone 125 MG/2 ML VIAL IVP ONE (13:33)
[2017-10-06 13:46] LABS: ABG Base Excess -4 mEq/L (-2 to 3); ABG HCO3 23 mEq/L (21-27); ABG Oxygen Saturation 99 % (95-98); ABG PCO2 47 mmHg (35-45); ABG PO2 152 mmHg (85-104); ABG TCO2 25 mEq/L (20-26)
[2017-10-06 13:51] LABS: Basophils % 0.2 %; Eosinophils # 0.2 K/mcL (0.0-0.6); Eosinophils % 1.7 %; Hematocrit 36.8 % (35.3-44.9); Hemoglobin 11.3 g/dL (11.5-15.4); Lymphocytes # 1.7 K/mcL (0.6-4.6); Mean Corpuscular HGB Conc 30.7 g/dL (31.6-35.5); Mean Corpuscular Hemoglobin 28.3 pg (28.0-33.3); Mean Platelet Volume 10.8 fL (9.4-12.4); Monocytes # 0.3 K/mcL (0.0-1.3); Monocytes % 3.2 %; Neutrophils # 8.2 K/mcL (1.6-8.9); Platelet Count 129 K/mcL (140-400); Red Cell Distribution Width 15.4 % (11.5-14.5); Segmented Neutrophils % 77.9 %
[2017-10-06 13:57] LABS: INR 1.2; Prothrombin Time 13.2 Seconds (9.4-12.1)
--- NOTE | 2017-10-06 14:09 | Emergency Department Note ---
Disposition Clinical Impression: Hypoxia CHF exacerbation Qualifiers: Congestive heart failure type: unspecified Qualified Code(s): I50.9 - Heart failure, unspecified Disposition: Admitted As Inpatient Condition: Fair Time of Disposition: 16:28 SOB HPI - General Chief Complaint: ED Shortness of Breath/Dyspnea Stated Complaint: APOLLO, Hypotension Time Seen by Provider: 10/06/17 13:32 Source: patient Mode of arrival: ambulatory Limitations: no limitations Nursing Notes Reviewed: Yes Vital Signs Reviewed: Yes - History of Present Illness 71-year-old female history of CHF, COPD, CAD, presents complaining of shortness of breath, she is brought from home, paramedics gave her Solu-Medrol and a breathing treatment of albuterol. Patient arrives by EMS, she states that she is worsening short of breath today, she reports a cough but denies hemoptysis. Patient denies fever or chills, she denies any chest pain or pressure. She states it is hard to get a breath and she feels more short of breath today. Patient is not hypoxic at baseline. She does not take oxygen but has been exposed to smokers she has a history of CHF, with pulmonary hypertension. She also has a previous admission to [facility] for "brain bleed" in May Pt Subjective Complaint: shortness of breath Onset (ago): day(s) Severity: moderate Consistency/Duration: constant Improves with: oxygen Worsens with: nothing Known history of: COPD, congestive heart failure Associated symptoms: Reports: wheezing, sputum production. Denies: chest pain, pain with inspiration, fever Treatment prior to arrival: none Cough present: Yes - Related Data Home Medications Medication Instructions Recorded Confirmed Carvedilol [Coreg] 6.25 mg PO BID 04/30/15 10/06/17 Cyclosporine [Restasis] 1 drop BOTH EYES BID 04/30/15 10/06/17 Fluticasone Propionate [Flovent 2 puff IH BID 04/30/15 10/06/17 Diskus] Isosorbide MONOnitrate [Isosorbide 60 mg PO DAILY 04/30/15 10/06/17 Mononitrate ER] Potassium Chloride 20 meq PO DAILY 06/19/16 10/06/17 Calcitriol [Rocaltrol] 0.25 mcg PO DAILY 03/20/17 10/06/17 Furosemide [Lasix] 40 mg PO DAILY 03/20/17 10/06/17 Azelastine HCl 1 drop OP BID 07/20/17 10/06/17 Fluticasone/Vilanterol [Breo 1 each IH DAILY 07/20/17 10/06/17 Ellipta 100-25 Mcg INH] Gabapentin [Neurontin] 100 mg PO HS 07/20/17 10/06/17 Loratadine [Claritin] 10 mg PO DAILY 07/20/17 10/06/17 Nystatin POWDER [Nystop] 1 appl TP BID 07/20/17 10/06/17 Tamsulosin [Flomax] 0.4 mg PO DAILY 07/20/17 10/06/17 Albuterol Sulfate [Albuterol 2 puff IH Q4HR PRN 08/27/17 10/06/17 Inhaler] Albuterol Neb [AccuNeb] 0.63 mg IH Q12H PRN 10/06/17 10/06/17 Atorvastatin Calcium [Lipitor] 20 mg PO HS 10/06/17 10/06/17 Esomeprazole Magnesium [Nexium] 40 mg PO DAILY 10/06/17 10/06/17 Guaifenesin [Mucinex] 600 mg PO Q12H PRN 10/06/17 10/06/17 Allergies Allergy/AdvReac Type Severity Reaction Status Date / Time ciprofloxacin [From Cipro] Allergy Hives Verified 08/27/17 11:02 meperidine [From Demerol] AdvReac Vomiting Verified 08/27/17 11:02 All systems ED: reviewed and negative except as stated. Review of Systems: As Per HPI Constitutional: Denies: fever, chills Eyes: Denies: eye pain ENT ED: Denies: ear pain Cardiovascular: Denies: chest pain Respiratory: Reports: as per HPI, cough, dyspnea, wheezes. Denies: hemoptysis, stridor, sputum production Gastrointestinal: Denies: abdominal pain, nausea Genitourinary: Denies: urgency, dysuria Musculoskeletal: Denies: back pain, neck pain Integumentary: Denies: rash, abrasion Neurological: Denies: headache Past Medical History - Past Medical History Attestation: Yes The following information was validated with the patient. Source: patient, old records reviewed Medical history: Reports: arthritis, asthma, cardiomyopathy, CHF, COPD, GERD, hyperlipidemia, hypertension, osteoporosis, renal disease, venous stasis, valvular heart disease, other Surgical history: Reports: cataract, cholecystectomy, heart valve replacement, herniorrhaphy, hysterectomy, knee replacement, orthopedic, other, sinus surgery , other Psychiatric history: Reports: anxiety, depression TIN ASSORTER history: Reports: no TIN ASSORTER history - Social History Smoking Status: Never smoker Smokeless Tobacco Status: No Alcohol use: Reports: none Drug use: Reports: none Physical Exam Constitutional: Dyspneic elderly female is tachypneic and tachycardic Eyes: PERRLA, sclera anicteric ENT & Mouth: MM dry Neck: normal inspection, neck is supple Resp: Diminished breath sounds bilaterally, scattered wheezes diminished bibasilar CV: Tachycardia, no m/g/r, 2 pitting edema GI: normal inspection, soft, no guarding or rigidity Neuro: A&O3, CNII-XII grossly intact, ELIZABETH Skin: Poor skin turgor, right leg post operative, lesion, no cellulitis or echymossis, no crepitus - General General appearance: alert, in distress Course Course Narrative: 71-year-old female with shortness of breath dyspnea, she appears moderately dyspneic on a facemask giving a breathing treatment when she arrives, I suspect the mixed acute respiratory failure picture she is also as part nonproductive cough but she is out of for several days, given the acuity of her hypoxia, and she is not on oxygen at baseline we will get a VQ scan that she has poor kidney function, basic lab work do an absent diuresis. Plan for likely admission also blood gas and BiPAP is been ordered - Reevaluation(s) Reevaluation #1: He was not that acidemic her blood gases 7.3 PCO2 47, she was markedly dyspneic with exertional dyspnea, she is tolerating BiPAP well at this time, her hypoxia is improved, her VQ scan was low probability for pulmonary embolus, she appears in the next respiratory failure from CHF exacerbation and COPD exacerbation, diuresis of 700 mL of fluid so far with 40 of Lasix, Parks placed, patient is going to be admitted to [facility]. for diuresis Lyme overload plan is for admission Dr. Moy is excepting Time: 16:28 Vital Signs Temperature 97.4 F L 10/06/17 13:30 Pulse Rate 117 10/06/17 13:30 Respiratory Rate 30 01/16/18 13:30 Blood Pressure 148/112 10/06/17 13:30 O2 Sat by Pulse Oximetry 96 10/06/17 13:30 Temperature 98.6 F 10/06/17 16:46 Pulse Rate 110 10/06/17 16:46 Respiratory Rate 18 10/06/17 16:48 Blood Pressure 132/77 10/06/17 16:48 O2 Sat by Pulse Oximetry 97 10/06/17 16:46 Oxygen Delivery Oxygen Delivery Bipap Shortness of Breath/Dyspnea - Differential Diagnosis Likely: acute exacerbation of chronic obstructive airways disease, congestive heart failure, pneumonia - Medical Records Medical records reviewed: Yes I reviewed the patient's medical records. - Lab Data Lab results reviewed: Yes I reviewed the patient's lab results. Result diagrams: 10/06/17 13:42 10/06/17 13:42 Lab Results 10/06/17 10/06/17 10/06/17 Range/Units 13:42 13:42 13:42 WBC 10.5 (4.3-11.1) K/mcL RBC 4.00 (3.82-4.97) M/mcL Hgb 11.3 L (11.5-15.4) g/dL Hct 36.8 (35.3-44.9) % MCV 92.0 (83.0-100.0) fL MCH 28.3 (28.0-33.3) pg MCHC 30.7 L (31.6-35.5) g/dL RDW 15.4 H (11.5-14.5) % Plt Count 129 L (140-400) K/mcL MPV 10.8 (9.4-12.4) fL Immature Gran % 1.0 (0-4) % Seg Neutrophils % 77.9 % Lymphocytes % 16.0 % Monocytes % 3.2 % Eosinophils % 1.7 % Basophils % 0.2 % Neutrophils # 8.2 (1.6-8.9) K/mcL Lymphocytes # 1.7 (0.6-4.6) K/mcL Monocytes # 0.3 (0.0-1.3) K/mcL Eosinophils # 0.2 (0.0-0.6) K/mcL Basophils # 0.0 (0.0-0.2) K/mcL PT 13.2 H (9.4-12.1) Seconds INR 1.2 APTT 29.0 (26.0-36.0) Seconds ABG pH (7.32-7.45) pH Units ABG pCO2 (35-45) mmHg ABG pO2 (85-104) mmHg ABG HCO3 (21-27) mEq/L ABG Total CO2 (20-26) mEq/L ABG O2 Saturation (95-98) % ABG Base Excess (-2 to 3) mEq/L Sodium 139 (136-145) mEq/L Potassium 5.0 (3.5-5.1) mEq/L Chloride 107 (98-107) mEq/L Carbon Dioxide 23 (23-29) mEq/L BUN 22 (8-23) mg/dL Creatinine 1.75 H (0.60-1.20) mg/dL Est GFR ( Amer) 35 L (> 60) Est GFR (Non-Af Amer) 28 L (> 60) BUN/Creatinine Ratio 13 (6-26) Glucose 105 (70-105) mg/dL Calculated Osmolality 292 (280-300) Lactic Acid (0.5-2.2) mmol/L Calcium 9.0 (8.6-10.3) mg/dL Troponin I (< 0.04) ng/mL B-Natriuretic Peptide (Less than 100) pg/mL Specimen Rejected 10/06/17 10/06/17 10/06/17 Range/Units 13:42 13:42 13:42 WBC (4.3-11.1) K/mcL RBC (3.82-4.97) M/mcL Hgb (11.5-15.4) g/dL Hct (35.3-44.9) % MCV (83.0-100.0) fL MCH (28.0-33.3) pg MCHC (31.6-35.5) g/dL RDW (11.5-14.5) % Plt Count (140-400) K/mcL MPV (9.4-12.4) fL Immature Gran % (0-4) % Seg Neutrophils % % Lymphocytes % % Monocytes % % Eosinophils % % Basophils % % Neutrophils # (1.6-8.9) K/mcL Lymphocytes # (0.6-4.6) K/mcL Monocytes # (0.0-1.3) K/mcL Eosinophils # (0.0-0.6) K/mcL Basophils # (0.0-0.2) K/mcL PT (9.4-12.1) Seconds INR APTT (26.0-36.0) Seconds ABG pH 7.30 L (7.32-7.45) pH Units ABG pCO2 47 H (35-45) mmHg ABG pO2 152 H (85-104) mmHg ABG HCO3 23 (21-27) mEq/L ABG Total CO2 25 (20-26) mEq/L ABG O2 Saturation 99 H (95-98) % ABG Base Excess -4 L (-2 to 3) mEq/L Sodium (136-145) mEq/L Potassium (3.5-5.1) mEq/L Chloride (98-107) mEq/L Carbon Dioxide (23-29) mEq/L BUN (8-23) mg/dL Creatinine (0.60-1.20) mg/dL Est GFR ( Amer) (> 60) Est GFR (Non-Af Amer) (> 60) BUN/Creatinine Ratio (6-26) Glucose (70-105) mg/dL Calculated Osmolality (280-300) Lactic Acid (0.5-2.2) mmol/L Calcium (8.6-10.3) mg/dL Troponin I < 0.03 (< 0.04) ng/mL B-Natriuretic Peptide 258 H (Less than 100) pg/mL Specimen Rejected 10/06/17 10/06/17 Range/Units 14:02 15:18 WBC (4.3-11.1) K/mcL RBC (3.82-4.97) M/mcL Hgb (11.5-15.4) g/dL Hct (35.3-44.9) % MCV (83.0-100.0) fL MCH (28.0-33.3) pg MCHC (31.6-35.5) g/dL RDW (11.5-14.5) % Plt Count (140-400) K/mcL MPV (9.4-12.4) fL Immature Gran % (0-4) % Seg Neutrophils % % Lymphocytes % % Monocytes % % Eosinophils % % Basophils % % Neutrophils # (1.6-8.9) K/mcL Lymphocytes # (0.6-4.6) K/mcL Monocytes # (0.0-1.3) K/mcL Eosinophils # (0.0-0.6) K/mcL Basophils # (0.0-0.2) K/mcL PT (9.4-12.1) Seconds INR APTT (26.0-36.0) Seconds ABG pH (7.32-7.45) pH Units ABG pCO2 (35-45) mmHg ABG pO2 (85-104) mmHg ABG HCO3 (21-27) mEq/L ABG Total CO2 (20-26) mEq/L ABG O2 Saturation (95-98) % ABG Base Excess (-2 to 3) mEq/L Sodium (136-145) mEq/L Potassium (3.5-5.1) mEq/L Chloride (98-107) mEq/L Carbon Dioxide (23-29) mEq/L BUN (8-23) mg/dL Creatinine (0.60-1.20) mg/dL Est GFR ( Amer) (> 60) Est GFR (Non-Af Amer) (> 60) BUN/Creatinine Ratio (6-26) Glucose (70-105) mg/dL Calculated Osmolality (280-300) Lactic Acid 1.0 (0.5-2.2) mmol/L Calcium (8.6-10.3) mg/dL Troponin I (< 0.04) ng/mL B-Natriuretic Peptide (Less than 100) pg/mL Specimen Rejected Hemolyzed - Radiology Data Radiology results reviewed: Yes I reviewed the patient's radiology results. Chest X-Ray 10/06/17 13:33 IMPRESSION: Stable chest examination with chronic interstitial changes and pleural thickening along the left lateral chest wall as well as atelectasis or scarring at the lung bases. No definite acute process noted. D/ / Gudelia Garcia MD / Gudelia Garcia MD Interpreting Provider: Gudelia Garcia MD Pulmonary Perfusion Imaging 10/06/17 14:12 IMPRESSION: Low probability for pulmonary embolus. D/ / 10/06/2017 15:35:06 Carlos Cueto MD / fab Interpreting Provider: Carlos Cueto MD - EKG Data EKG attestation: Yes I reviewed and interpreted this EKG. EKG shows normal: Reports: sinus rhythm (103 bpm 82QRS 373 QTC) Rate: Reports: normal Rhythm: Reports: NSR Hollister/QRS: Reports: normal - Core Measures AMI Core Measures Followed: No Measure Exclusions: not indicated Attestation Statement - Attestation Attestation: I, Iftikhar Holder, examined this patient and my medical decision-making was reviewed with the GRINDER HAND/PA/Advanced Practice Nurse/Resident Physician. I agree with the documented findings, disposition and treatment plan as described except to the extent set forth below. 71-year-old female presents emergency Department with concerns of shortness of breath and hypotension. EMS states they were called for shortness of breath. Initial BP was hypotensive with systolic BP in the 70s. Repeat blood pressure on arrival to the emergency department was not hypotensive. Patient has a history of CHF exacerbation. Patient started on BiPAP with significant improvement of symptoms. She was given Solu-Medrol and albuterol inhaler by EMS. Patient be admitted to the hospital for further care and evaluation.
[2017-10-06] MEDS ORDERED: Naloxone 0.4 MG/ML INJ IVP PRN (17:18)
[2017-10-06] MEDS ORDERED: Albuterol Neb 0.63 MG/3 ML VIAL IH PRN (17:32)
[2017-10-06] MEDS ORDERED: *HR* Digoxin 0.5 MG/2 ML AMPUL IVP ONE (17:40)
--- NOTE | 2017-10-06 18:18 | Event Note ---
Date of Encounter: 10/06/17 Time of Encounter: 18:12 Patients and examined with nurse practitioner. Acute congestive heart failure exacerbations due to diastolic dysfunction. Respiratory status significantly improved after diuresi. currently on nasal oxygen. Start the patient on Lasix 40 mg IV twice-daily. Patient is currently in atrial flutter will give one dose of digoxin for rate control. Start anticoagulation for now. Also has troponin elevation. Trend. Cardiology input.
[2017-10-06] MEDS ORDERED: *HR* Digoxin 0.5 MG/2 ML AMPUL ONE (18:22)
[2017-10-06 18:27] LABS: Thyroid Stimulating Hormone 4.7 mcIU/mL (0.340-5.600)
[2017-10-06] MEDS: Furosemide 40 MG/4 ML VIAL IVP SCH (18:40)
[2017-10-06] MEDS: Aspirin Enteric Coated 81 MG Tablet PO SCH (18:40)
[2017-10-06] MEDS: Acetaminophen 325 MG TABLET PO PRN (18:42)
--- NOTE | 2017-10-06 18:46 | Internal Med History&Physical ---
Date of Encounter: 10/06/17 Time of Encounter: 17:30 Assessment and Plan (1) CHF exacerbation Current visit: Yes Status: Acute Acute exacerbation of CHF w/sx beginning today. Concern was for possible PE, however perfusion imaging shows low probability for PE. BNP 258 on admission. Pt. reports taking 40 mg PO lasix daily. Will hold PO lasix and administer 40 mg IVP BID. Echocardiogram ordered. Continuous cardiac telemetry. Supplemental O2 w/titration and SpO2 monitoring. DuoNebs Q6 scheduled. Monitor I&O and daily weight. Pt. discussed w/Dr. Moy who is in agreement w/plan of care. Pt. is at high risk for further morbidity, respiratory, and/or cardiac distress d/t current exacerbation of CHF, chest pain, and new onset of atrial flutter. Inpatient. Qualifiers: Congestive heart failure type: diastolic Qualified Code(s): I50.33 - Acute on chronic diastolic (congestive) heart failure (2) Atrial flutter Current visit: Yes Status: Acute Acute onset of new atrial flutter. Pt. denies previous hx. Pt. also denies anticoagulation but reports CP w/radiation to rt. neck. Cardiology consult ordered and discussed with Dr. Arnold recommendation to begin low-dose heparin drip and I appreciate the consult. Echocardiogram. Digoxin .25 IVP once. Check TSH and free T4. Qualifiers: Atrial flutter type: atypical Qualified Code(s): I48.4 - Atypical atrial flutter (3) Chest pain Current visit: Yes Status: Acute Acute episode of right-sided chest pain today w/radiation to right neck. Subsided. Initial troponin <0.03. Will trend x2. Continuous cardiac telemetry. Echocardiogram ordered. Qualifiers: Chest pain type: unspecified Qualified Code(s): R07.9 - Chest pain, unspecified (4) Hypoxia Current visit: Yes Status: Acute Acute hypoxia r/t pts. current exacerbation of CHF. BiPap on/off times ordered. Supplemental O2 w/titration and SpO2 monitoring. (5) CKD (chronic kidney disease) stage 4, GFR 15-29 ml/min Current visit: Yes Status: Chronic Hx of CKD. Pt. is currently stage IV w/GFR of 28 and creatinine of 1.75. Will use IV fluids judiciously if warranted d/t current CKD and CHF exacerbation. Avoid nephrotoxins. Monitor I&O and daily weight. (6) COPD (chronic obstructive pulmonary disease) Current visit: Yes Status: Chronic Hx of chronic COPD. Stable. Supplemental O2 and SpO2 monitoring. DuoNebs Q6 scheduled. Qualifiers: COPD type: unspecified COPD Qualified Code(s): J44.9 - Chronic obstructive pulmonary disease, unspecified (7) GERD (gastroesophageal reflux disease) Current visit: Yes Status: Chronic Hx of chronic GERD. IVP Zofran 4 mg. Q8 for N/V. Continue pts. Nexium. Qualifiers: Esophagitis presence: esophagitis presence not specified Qualified Code(s) : K21.9 - Gastro-esophageal reflux disease without esophagitis (8) HLD (hyperlipidemia) Current visit: Yes Status: Chronic Hx of chronic HLD. Lipid panel in a.m. labs. Continue pts. Lipitor. Qualifiers: Hyperlipidemia type: pure hypercholesterolemia Qualified Code(s): E78.00 - Pure hypercholesterolemia, unspecified; E78.0 - Pure hypercholesterolemia (9) HTN (hypertension) Current visit: Yes Status: Chronic Hx of chronic HTN. Monitor pt. and VS. Continue patient's Coreg and isosorbide. Qualifiers: Hypertension type: essential hypertension Qualified Code(s): I10 - Essential (primary) hypertension (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 Current visit: Yes Status: Chronic Hx of blindness. Falls/safety precautions. PT/OT consults to assess pt. for ambulation strength and stability. (11) DVT prophylaxis Current visit: Yes Status: Acute Pt. placed on heparin drip d/t new onset of atrial flutter. Monitor pt. for signs of bleeding. Internal Medicine - H&P: HPI Chief complaint: SOB/Dyspnea/Chest pain Admitted From: Emergency Dept Plans for Post Hospital Care: Home History of present illness: Ms. Barber is a 71 year old female with medical hx of arthritis, asthma, cardiomyopathy, CHF, COPD, GERD, HLD, HTN, osteoporosis, renal disease, venous stasis, and valvular heart disease presents in the ED with chief complaint of shortness of breath and dyspnea that began at noon today. Patient reports she has shortness of breath chronically patient's symptoms worsened today. Patient reports cough, right-sided chest pain w/radiation to rt. neck, SOB, and dyspnea w/wo exertion but denies recent illness, fever, chills, nausea, vomiting, changes in vision, headache, unusual bleeding, numbness, tingling, weakness, fatigue, dizziness, diaphoresis, lightheadedness, pre-syncope, or syncope. Past Med Surg Social Fam HX - Past Medical History Source: patient, old records reviewed Medical history: arthritis, asthma, cardiomyopathy, CHF, COPD, GERD, hyperlipidemia, hypertension, osteoporosis, renal disease, venous stasis, valvular heart disease, other Psychiatric history: anxiety, depression - Past Surgical History Surgical History: cataract, cholecystectomy, heart valve replacement, herniorrhaphy, hysterectomy, knee replacement, orthopedic, other, sinus surgery , other - Social History Smoking Status: Never smoker Smokeless Tobacco Status: No Alcohol use: none Drug use: none Current living situation: Home Activity Level: Independent ambulation Recent Out of Country Travel Within the Last 8 Weeks: No Exposure or Possible Exposure to Illness During Travel: No - Family History Father Race: Family Member Ethnicity: Non- Living Status: Age at : 88 Cause of : HD Hx Family Cardiac Disorders: Yes (HD, Pig valve, HD) Hx Family Cancer: Yes (Cancer on lip) Hx Family GI Disorders: Yes (CKD) Hx Family Endocrine Disorder: Yes (Gallstones) Sister Race: Family Member Ethnicity: Non- Living Status: Age at : 60 Cause of : DM complications Hx Family Genitourinary Disorders: Yes (Gout) Hx Family Endocrine Disorder: Yes (DM) Mother Living Status: Age at : 81 Cause of : HD Hx Family Cardiac Disorders: Yes (HD, Anemia) Hx Family Genitourinary Disorders: Yes (CKD) Hx Family Medical Disorders: Yes (Anemia) Internal Medicine - H&P: Meds Carvedilol [Coreg] 6.25 mg PO BID 04/30/15 [History] Cyclosporine [Restasis] 1 drop BOTH EYES BID 04/30/15 [History] Fluticasone Propionate [Flovent Diskus] 2 puff IH BID 04/30/15 [History] Isosorbide MONOnitrate [Isosorbide Mononitrate ER] 60 mg PO DAILY 04/30/15 [ History] Potassium Chloride 20 meq PO DAILY 06/19/16 [History] Calcitriol [Rocaltrol] 0.25 mcg PO DAILY 03/20/17 [History] Furosemide [Lasix] 40 mg PO DAILY 03/20/17 [History] Azelastine HCl 1 drop OP BID 07/20/17 [History] Fluticasone/Vilanterol [Breo Ellipta 100-25 Mcg INH] 1 each IH DAILY 07/20/17 [ History] Gabapentin [Neurontin] 100 mg PO HS 07/20/17 [History] Loratadine [Claritin] 10 mg PO DAILY 07/20/17 [History] Nystatin POWDER [Nystop] 1 appl TP BID 07/20/17 [History] Tamsulosin [Flomax] 0.4 mg PO DAILY 07/20/17 [History] Albuterol Sulfate [Albuterol Inhaler] 2 puff IH Q4HR PRN 08/27/17 [History] Albuterol Neb [AccuNeb] 0.63 mg IH Q12H PRN 10/06/17 [History] Atorvastatin Calcium [Lipitor] 20 mg PO HS 10/06/17 [History] Esomeprazole Magnesium [Nexium] 40 mg PO DAILY 10/06/17 [History] Guaifenesin [Mucinex] 600 mg PO Q12H PRN 10/06/17 [History] 3 Allergy/AdvReac Type Severity Reaction Status Date / Time ciprofloxacin [From Cipro] Allergy Hives Verified 08/27/17 11:02 meperidine [From Demerol] AdvReac Vomiting Verified 08/27/17 11:02 All Systems PM: A 10-system review of systems was performed and is negative for pertinent findings except as documented above in the HPI. - Constitutional Constitutional: no chills, no fever(s), no night sweats - EENT Eyes: no change in vision, no discharge, no pain, no photophobia Ears: no ear discharge, no ear pain, no tinnitus Nose, mouth and throat: no dysphagia, no nasal discharge, no neck pain, no sore throat - Breasts Breasts: as per HPI - Cardiovascular Cardiovascular ROS IM: as per HPI, chest pain, dyspnea, dyspnea on exertion, edema (Bilateral LEs), irregular heart rhythm, no lightheadedness, no palpitations, no syncope - Respiratory Respiratory: as per HPI, cough, dyspnea, dyspnea on exertion, no wheezing, no excessive phlegm production - Gastrointestinal Gastrointestinal: no abdominal pain, no diarrhea, no hematemesis, no hematochezia, no melena, no nausea, no vomiting - Genitourinary Genitourinary: no change in urinary stream, no dysuria, no flank pain, no hematuria Menstruation: as per HPI, post hysterectomy - Musculoskeletal Musculoskeletal ROS IM: no numbness, no tingling - Integumentary Integumentary IM: no rash, no unusual bruising - Neurological Neurological ROS: no confusion, no convulsions, no focal weakness, no numbness, no tingling, no tremor(s) - Psychiatric Psychiatric: as per HPI - Endocrine Endocrine IM: as per HPI - Hematologic/Lymphatic Hematologic/Lymphatic: no easy bruising - Allergic/Immunologic Allergic/Immunologic: as per HPI - Constitutional Vitals: Temp Pulse Resp BP Pulse Ox 98.3 F 119 18 125/86 95 10/06/17 18:33 10/06/17 18:33 10/06/17 18:33 10/06/17 18:33 10/06/17 18:33 General appearance: Present: cooperative, A&O X 3, pleasant, no acute distress, obese, answers questions appropriately - Head Head exam: Present: atraumatic, normal inspection, normocephalic - Eye Eye exam: Present: PERRL, conjuntiva pink, sclera anicteric Pupils: Present: PERRL - Neck Neck exam general surgery: Present: normal inspection - Respiratory Respiratory exam: Present: accessory muscle use, decreased breath sounds. Absent: rales, rhonchi, wheezes - Cardiovascular Cardiovascular exam: Present: irregular rhythm. Absent: gallop, rubs - GI/Abdominal GI/Abdominal exam: Present: normal bowel sounds, soft, no peritoneal signs. Absent: distended, tenderness - Rectal Rectal exam: Present: deferred - Additional comments: exam deferred. - Extremities Exam Extremities exam: Present: pedal edema, warm, radial pulses palpable and symmetrical. Absent: calf tenderness, cyanotic - Expanded Lower Extremities Exam Lower Leg exam: Present: erythema (RLE) - Back Exam Back exam: Present: normal inspection - Neurological Exam Neurological exam: Present: CN II-XII intact, oriented X3, no focal deficits. Absent: pronater drift, facial droop, speech deficit - Psychiatric Psychiatric exam: Present: normal affect, normal mood - Skin Skin exam: Present: dry, erythema (RLE), intact Internal Med - H&P Results - Labs CBC & Chem 7: 10/06/17 13:42 10/06/17 13:42 - Diagnostic Studies Chest x-ray Additional comments: Impressions Chest X-Ray 10/06/17 13:33 IMPRESSION: Stable chest examination with chronic interstitial changes and pleural thickening along the left lateral chest wall as well as atelectasis or scarring at the lung bases. No definite acute process noted. D/ / Gudelia Garcia MD / Gudelia Garcia MD Interpreting Provider: Gudelia Garcia MD Other Images Additional comments: Impressions Pulmonary Perfusion Imaging 10/06/17 14:12 IMPRESSION: Low probability for pulmonary embolus. D/ / 10/06/2017 15:35:06 Carlos Cueto MD / fab Interpreting Provider: Carlos Cueto MD
[2017-10-06] MEDS: Heparin 25,000 UNIT/500 ML D5W 25,000 UNIT/500 ML BAG IVC SCH (19:34)
[2017-10-06] MEDS: (Cyclosporine [Restasis] 1 DROP) OP SCH (19:35)
[2017-10-06] MEDS: FLUTICASONE PROPIONATE IH SCH (19:35)
[2017-10-06] MEDS: (Azelastine Hcl [Azelastine Hcl] 1 DROP) OP SCH (19:35)
[2017-10-06] MEDS: Gabapentin 100 MG CAPSULE PO SCH (19:35)
[2017-10-06] MEDS: Nystatin POWDER 30 GM BOTTLE TP SCH (19:36)
[2017-10-06] MEDS: Ipratropium/Albuterol Neb 3 ML IH SCH (22:43)
[2017-10-07 01:27] LABS: Basophils % 0.2 %; Eosinophils % 0.2 %; Hematocrit 30.6 % (35.3-44.9); Immature Granulocytes % 0.2 % (0-4); Immature Platelets 2.6 % (1.1-6.1); Lymphocytes # 0.3 K/mcL (0.6-4.6); Lymphocytes % 6.9 %; Mean Corpuscular HGB Conc 32.7 g/dL (31.6-35.5); Mean Corpuscular Hemoglobin 28.8 pg (28.0-33.3); Mean Corpuscular Volume 88.2 fL (83.0-100.0); Mean Platelet Volume 11.2 fL (9.4-12.4); Monocytes # 0.1 K/mcL (0.0-1.3); Monocytes % 2.4 %; Neutrophils # 4.4 K/mcL (1.6-8.9); Platelet Count 130 K/mcL (140-400); Red Blood Count 3.47 M/mcL (3.82-4.97); Red Cell Distribution Width 15.3 % (11.5-14.5); Segmented Neutrophils % 90.1 %
[2017-10-07 01:41] LABS: Albumin 3.5 g/dL (3.5-5.7); Albumin/Globulin Ratio 1.1 (1.1-2.2); Bilirubin,Total 0.4 mg/dL (0.3-1.0); Calcium 8.4 mg/dL (8.6-10.3); Chol/HDL Ratio 3.3 (0-4.9); Globulin 3.2 g/dL (2.4-3.5); Magnesium 1.7 mg/dL (1.6-2.6); Potassium 3.9 mEq/L (3.5-5.1); Total Protein 6.7 g/dL (6.4-8.9)
[2017-10-07] MEDS: Ipratropium/Albuterol Neb 3 ML IH SCH ×4 (05:06→21:53)
[2017-10-07] MEDS: Nystatin POWDER 30 GM BOTTLE TP SCH ×2 (08:05→21:07)
[2017-10-07] MEDS: (Azelastine Hcl [Azelastine Hcl] 1 DROP) OP SCH ×2 (08:05→21:07)
[2017-10-07] MEDS: (Cyclosporine [Restasis] 1 DROP) OP SCH ×2 (08:06→21:07)
[2017-10-07] MEDS: (Fluticasone/Vilanterol [Breo Ellipta 100-25 Mcg Inh]) IH SCH (08:06)
[2017-10-07] MEDS: FLUTICASONE PROPIONATE IH SCH ×2 (08:06→21:07)
[2017-10-07] MEDS: Furosemide 40 MG/4 ML VIAL IVP SCH ×2 (08:16→16:51)
[2017-10-07] MEDS: Acetaminophen 325 MG TABLET PO PRN ×2 (08:17→21:06)
[2017-10-07] MEDS: Aspirin Enteric Coated 81 MG Tablet PO SCH (08:18)
[2017-10-07] MEDS: Loratadine 10 MG TABLET PO SCH (08:18)
--- NOTE | 2017-10-07 08:36 | Cardiology Consult Note ---
Date of Encounter: 10/07/17 Time of Encounter: 08:32 Assessment and Plan (1) Atrial fibrillation Current Visit: Yes Status: Acute Patient s/p Ross procedure at [facility] in 1994 secondary to congenital bicuspid aortic valve. (Pulmonic valve moved to aortic position, prosthetic PV placed). -Lexiscan nuclear stress test at [place] 05/2017. -No recent echocardiogram. -CXR 10-06-2016- chronic interstitial changes, no acute process. -ECG 10/06/2016 atrial fibrilltion with RVR. -RHC/LHC 2008 at [facility]- pulmonary HTN, related to LV diastolic dysfunction -Patient currently receiving Coreg. HR suboptimal. Optimize as BP will allow. -Agree with heparin drip. Moderate thromboembolic risk. -Coumadin optimal choice for [facility] anticoagulation due to CKD. -FU echocardiogram Qualifiers: Atrial fibrillation type: unspecified Qualified Code(s): I48.91 - Unspecified atrial fibrillation (2) CHF exacerbation Current Visit: Yes Status: Acute Echocardiogram on 01/01/2017 LVEF 60-65% with moderate left ventricular diastolic dysfunction, bioprosthetic aortic valve, moderate aortic regurgitation , mild tricuspid regurgitation, moderate pulmonary regurgitation, and moderate pulmonary hypertension. -IV Lasix twice a day 40 mg. -Monitor SHAMEKA's, daily weights. -FU echocardiogram Qualifiers: Congestive heart failure type: diastolic Qualified Code(s): I50.33 - Acute on chronic diastolic (congestive) heart failure (3) Chronic kidney disease, stage III (moderate) Current Visit: No Status: Acute Creatinine at baseline. -continue to monitor Discussion w patient/family: The assessment and plan as outlined above was discussed with the patient and/or family members who expressed understanding and agreement. All questions were answered. Thank you for involving us in the care of your patient. Please call with any questions. History of Present Illness Consult date: 10/07/17 Requesting physician: Jose Rafael Guzmán Consult reason: New onset atrial flutter/CHF exacerbation Chief complaint: shortness of breath History of present illness: Ms. Barber is a 71 year old female with PMHX of diastolic CHF, COPD, CAD, retinitis pigmentosa, and multiple medical comorbidities who presented to the [facility] on 10/06/2017 complaining of shortness of breath via EMS. Patient reported worsening shortness of breath with a cough and nasal congestion, but denied hemoptysis, fever, or chills. Patient initially denied any chest pain or pressure, however, she subsequently reported right-sided chest pain with radiation to right neck. She denied palpitations. Patient was found to be hypoxic. VQ scan was negative for possible PE. BNP 258. Patient at home dose of 40 mg by mouth Lasix daily was stopped and patient was began on IV Lasix 40 mg twice a day. EKG examination showed atrial flutter, which according to patient was new in onset. Patient was started on BiPAP and DuoNeb' s. Physical examination indicative of fluid overload. Patient's respiratory status improved with interventions. Patient was also started on low dose heparin drip for new onset atrial flutter. Troponins were mildly elevated at less than 0.03. Patient has PMhx of Ross procedure in 1994. She follows with Dr. Lopez in [place]. Her most recent echocardiogram and heart catheterizations are from 2008 at [facility]. Patient also reporting recent neck surgery with subsequent intracranial bleed. She states she is living at home with her nephew. This morning, she is cheerful and resting comfortably. She states her shortness of breath is greatly improved. Past Med Surg Social Fam HX - Past Medical History Attestation: Yes The following information was validated with the patient. Source: patient, old records reviewed Medical history: arthritis, asthma, cardiomyopathy, CHF, COPD, GERD, hyperlipidemia, hypertension, osteoporosis, renal disease, venous stasis, valvular heart disease, other (retinitis pigmentosa and Pablo Bonnet Syndrome) Psychiatric history: anxiety, depression - Past Surgical History Surgical History: cataract, cholecystectomy, heart valve replacement, herniorrhaphy, hysterectomy, knee replacement, orthopedic, other, sinus surgery , other - Social History Smoking Status: Never smoker Smokeless Tobacco Status: No Alcohol use: none Drug use: none - Family History Father Race: Family Member Ethnicity: Non- Living Status: Age at : 88 Cause of : HD Hx Family Cardiac Disorders: Yes (HD, Pig valve, HD) Hx Family Cancer: Yes (Cancer on lip) Hx Family GI Disorders: Yes (CKD) Hx Family Endocrine Disorder: Yes (Gallstones) Sister Race: Family Member Ethnicity: Non- Living Status: Age at : 60 Cause of : DM complications Hx Family Genitourinary Disorders: Yes (Gout) Hx Family Endocrine Disorder: Yes (DM) Mother Living Status: Age at : 81 Cause of : HD Hx Family Cardiac Disorders: Yes (HD, Anemia) Hx Family Genitourinary Disorders: Yes (CKD) Hx Family Medical Disorders: Yes (Anemia) Medications and Allergies Carvedilol [Coreg] 6.25 mg PO BID 04/30/15 [History] Cyclosporine [Restasis] 1 drop BOTH EYES BID 04/30/15 [History] Fluticasone Propionate [Flovent Diskus] 2 puff IH BID 04/30/15 [History] Isosorbide MONOnitrate [Isosorbide Mononitrate ER] 60 mg PO DAILY 04/30/15 [ History] Potassium Chloride 20 meq PO DAILY 06/19/16 [History] Calcitriol [Rocaltrol] 0.25 mcg PO DAILY 03/20/17 [History] Furosemide [Lasix] 40 mg PO DAILY 03/20/17 [History] Azelastine HCl 1 drop OP BID 07/20/17 [History] Fluticasone/Vilanterol [Breo Ellipta 100-25 Mcg INH] 1 each IH DAILY 07/20/17 [ History] Gabapentin [Neurontin] 100 mg PO HS 07/20/17 [History] Loratadine [Claritin] 10 mg PO DAILY 07/20/17 [History] Nystatin POWDER [Nystop] 1 appl TP BID 07/20/17 [History] Tamsulosin [Flomax] 0.4 mg PO DAILY 07/20/17 [History] Albuterol Sulfate [Albuterol Inhaler] 2 puff IH Q4HR PRN 08/27/17 [History] Albuterol Neb [AccuNeb] 0.63 mg IH Q12H PRN 10/06/17 [History] Atorvastatin Calcium [Lipitor] 20 mg PO HS 10/06/17 [History] Esomeprazole Magnesium [Nexium] 40 mg PO DAILY 10/06/17 [History] Guaifenesin [Mucinex] 600 mg PO Q12H PRN 10/06/17 [History] 3 Allergy/AdvReac Type Severity Reaction Status Date / Time ciprofloxacin [From Cipro] Allergy Hives Verified 08/27/17 11:02 meperidine [From Demerol] AdvReac Vomiting Verified 08/27/17 11:02 All Systems Review: A 10-system review of systems was performed and is negative for pertinent findings except as documented above in the HPI. - Constitutional Constitutional: no fatigue, no fever(s), no headache(s) - EENT Eyes: loss of vision (chronic from retinitis pigmetosa) - Cardiovascular Cardiovascular: dyspnea at rest, dyspnea on exertion, no radiating jaw, neck or arm pain, no lightheadedness, no palpitations, no slow heart rate - Respiratory Respiratory: cough - Gastrointestinal Gastrointestinal: constipation, no abdominal pain, no hematemesis, no hematochezia, no melena - Neurological Neurological: other (legal blindness with Pablo Bonnet Syndrome), no abnormal speech Physical Examination Vital Signs, Last 4 Hours Temp Pulse Resp BP Pulse Ox 10/07/17 08:23 75 10/07/17 07:20 97.8 F 101 19 128/78 97 10/07/17 05:06 16 97 General: Conversant, No Apparent Distress HEENT: Atraumatic, Normocephaly, Mucus Membranes Moist Cardiac: Other (Irregular rate and rhythm. ) Lungs: Other (Rales bilaterally at bases of lungs) Neuro: Alert and responsive Abdomen: Soft, Non-Tender Skin: No rashes noted on visualized skin Extremities: No Clubbing, Other (2+ pitting edema. ) Results 10/07/17 01:19 10/07/17 01:19 Lab Results 10/06/17 10/07/17 10/07/17 19:35 01:19 01:19 WBC 4.9 D Hgb 10.0 L Hct 30.6 L Plt Count 130 L APTT Sodium Potassium Chloride Carbon Dioxide BUN Creatinine Glucose Calcium Magnesium Total Bilirubin AST ALT Alkaline Phosphatase Troponin I < 0.03 < 0.03 10/07/17 10/07/17 10/07/17 01:19 01:19 08:06 WBC Hgb Hct Plt Count APTT 79.2 H D 105.2 H Sodium 138 Potassium 3.9 Chloride 105 Carbon Dioxide 25 BUN 24 H Creatinine 1.68 H Glucose 234 H Calcium 8.4 L Magnesium 1.7 Total Bilirubin 0.4 AST 13 ALT 10 Alkaline Phosphatase 57 Troponin I Consult Discharge Plan - Plan Referrals: Lokesh Cooper MD [Primary Care Provider] -
[2017-10-07] MEDS ORDERED: Isosorbide MONOnitrate (24 HR) 60 MG TAB.ER.24H PO SCH (09:00)
--- NOTE | 2017-10-07 09:35 | Internal Med Progress Note ---
Date of Encounter: 10/07/17 Time of Encounter: 09:28 - Assessment and plan (1) Atrial flutter Current Visit: Yes Status: Acute Assessment and plan: Acute onset of new atrial flutter. TSH and free T4. Heart rate is from 90-120 , she denies palpation. She is on carvedilol 6.25 twice a day, allergy cardiology was consulted. Continue heparin drip Qualifiers: Atrial flutter type: atypical Qualified Code(s): I48.4 - Atypical atrial flutter (2) Acute respiratory failure with hypoxia Current Visit: No Status: Acute Assessment and plan: In the emergency room patient was found to hypoxia placed on BiPAP, she received IV Lasix. Her oxygenation improved currently on room air. She had the VQ scan shows low probability. Likely from combination of CHF and atrial flutter (3) CHF exacerbation Current Visit: Yes Status: Acute Assessment and plan: Patient had echocardiogram done in December 2016 showed a normal EF 60-65%, possible acute on chronic diastolic CHF exacerbation improved and was IV Lasix. Qualifiers: Congestive heart failure type: diastolic Qualified Code(s): I50.33 - Acute on chronic diastolic (congestive) heart failure (4) DVT prophylaxis Current Visit: Yes Status: Acute Assessment and plan: All heparin drip (5) Chronic kidney disease, stage III (moderate) Current Visit: No Status: Acute (6) COPD (chronic obstructive pulmonary disease) Current Visit: Yes Status: Chronic Assessment and plan: History of COPD not on acute exacerbation, she is not on home O2. No wheezing Qualifiers: COPD type: unspecified COPD Qualified Code(s): J44.9 - Chronic obstructive pulmonary disease, unspecified (7) GERD (gastroesophageal reflux disease) Current Visit: Yes Status: Chronic Assessment and plan: Continue PPI Qualifiers: Esophagitis presence: esophagitis presence not specified Qualified Code(s) : K21.9 - Gastro-esophageal reflux disease without esophagitis (8) HLD (hyperlipidemia) Current Visit: Yes Status: Chronic Assessment and plan: Continue stain Qualifiers: Hyperlipidemia type: pure hypercholesterolemia Qualified Code(s): E78.00 - Pure hypercholesterolemia, unspecified; E78.0 - Pure hypercholesterolemia (9) HTN (hypertension) Current Visit: Yes Status: Chronic Assessment and plan: Continue home medication home medication Qualifiers: Hypertension type: essential hypertension Qualified Code(s): I10 - Essential (primary) hypertension (10) Chronic kidney disease Current Visit: No Status: Chronic Assessment and plan: CK D stages 3, her baseline creatinine is from 1.5-2.2. Creatinine has been stable Qualifiers: Chronic kidney disease stage: stage 3 (moderate) Qualified Code(s): N18.3 - Chronic kidney disease, stage 3 (moderate) (11) Obesity (BMI 30-39.9) Current Visit: No Status: Chronic Assessment and plan: BMI 33, recommended lifestyle modification (12) Chest pain Current Visit: Yes Status: Acute Assessment and plan: Chest pain is soft, she has 2 negative troponin. Likely from atrial flutter and hypoxia combination. Pending echocardiogram. Qualifiers: Chest pain type: unspecified Qualified Code(s): R07.9 - Chest pain, unspecified - Time Spent With Patient 25 - 35 minutes - Subjective Interval history: Ms. Barber is a 71 year old female with medical hx of arthritis, asthma, cardiomyopathy, CHF, COPD, GERD, HLD, HTN, osteoporosis, renal disease, venous stasis, and valvular heart disease presents in the ED with chief complaint of shortness of breath and dyspnea on 10/06. Patient reports she has shortness of breath chronically patient's symptoms worsening, Patient reports cough, right- sided chest pain w/radiation to rt. neck, SOB, and dyspnea w/wo exertion but denies recent illness, fever, chills, nausea, vomiting, changes in vision, headache, unusual bleeding, numbness, tingling, weakness, fatigue, dizziness, diaphoresis, lightheadedness, pre-syncope, or syncope. Patient was admitted on October 06 for atrial fibrillation was RVR, shortness of breath Patient is doing well overnight she is on room air sitting 98-100%. Patient's reported that she was not on home O2. She was recently discharged from long-term to home. Her shortness of breast improved and her leg swelling also improved. She denies active chest pain Heart rate is between 100-120. Continue heparin drip. - Constitutional Vitals: Temp Pulse Resp BP Pulse Ox 97.8 F 75 19 128/78 97 10/07/17 07:20 10/07/17 08:23 10/07/17 07:20 10/07/17 07:20 10/07/17 07:20 General appearance: Present: cooperative, A&O X 3, pleasant, no acute distress, obese, answers questions appropriately Exam: CONSTITUTIONAL: patient appears as an age appropriate female in no acute distress. EYES Clear sclerae, bilateral pupils are equal, reactive to light. EMOI. RESPIRATORY: No accessory muscle use, bilateral clear to auscultation, no wheezing, no crackles/rales. CARDIOVASCULAR: Irregular irregular heart rate, normal S1 and S2, no murmurs GASTROINTESTINAL: bowel sounds present, soft, no tenderness. MUSCULOSKELETAL: Joints in normal range of motion, no clubbing, mild ankle edema edema, no cyanosis. Bilateral peripheral pulses 2+. NEUROLOGIC: CN II to XII are grossly intact, no focal neurological deficit. Internal Medicine: Result - Labs CBC & Chem 7: 10/07/17 01:19 10/07/17 01:19 Labs: Short CBC 10/07/17 Range/Units 01:19 WBC 4.9 D (4.3-11.1) K/mcL Hgb 10.0 L (11.5-15.4) g/dL Hct 30.6 L (35.3-44.9) % Plt Count 130 L (140-400) K/mcL Neutrophils # 4.4 (1.6-8.9) K/mcL BMP 10/07/17 01:19 Sodium 138 Potassium 3.9 Chloride 105 Carbon Dioxide 25 BUN 24 H Creatinine 1.68 H Glucose 234 H Calcium 8.4 L Cardiac Enzymes 10/06/17 10/07/17 Range/Units 19:35 01:19 Troponin I < 0.03 < 0.03 (< 0.04) ng/mL Liver Function 10/07/17 Range/Units 01:19 Total Bilirubin 0.4 (0.3-1.0) mg/dL AST 13 (13-39) Units/L ALT 10 (7-52) Units/L Alkaline Phosphatase 57 (34-104) Units/L Albumin 3.5 (3.5-5.7) g/dL - ABG Interpretation ABG results: ABG ABG pH 7.30 pH Units (7.32-7.45) L 10/06/17 13:42 ABG pCO2 47 mmHg (35-45) H 10/06/17 13:42 ABG pO2 152 mmHg (85-104) H 10/06/17 13:42 ABG O2 Saturation 99 % (95-98) H 10/06/17 13:42 PT/INR, D-dimer PT 13.2 Seconds (9.4-12.1) H 10/06/17 13:42 Consult Discharge Plan - Plan Referrals: Lokesh Cooper MD [Primary Care Provider] -
--- NOTE | 2017-10-07 11:39 | Electrocardiograph Report ---
[address] [address] Test Date: 2017-10-06 Pat Name: Janiya Barber Department: 104 Room: 2N12 Gender: F Save All Operator: MICHELE : 1945 Requested By: Bill Ferreira Order Number: [id number] Reading MD: Arnaud Strickland MD Measurements Intervals [place] Rate: 103 P: WI: 0 QRS: 55 QRSD: 82 T: 105 QT: 314 QTc: 373 Interpretive Statements ATRIAL FIBRILLATION WITH RAPID VENTRICULAR RESPONSE VERSUS SINUS RHYTHM WITH PACS BASELINE ARTIFACT, REPEAT EKG BASELINE ARTIFACT COMPLICATES ACCURATE INTERPRETATION Electronically Signed On 10-07-2017 11:37:40 EST by Arnaud Strickland MD
--- NOTE | 2017-10-07 11:49 | Electrocardiograph Report ---
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
--- NOTE | 2017-10-07 13:44 | Event Note ---
Date of Encounter: 10/07/17 Time of Encounter: 13:32 Please consider this my attestation to the resident cardiology note performed today. I examined this patient and my medical decision-making was reviewed with the Resident Physician. I agree with the documented findings, disposition and treatment plan as described except to the extent set forth below. 71 y/o with a congenital bicuspid aortic valve. s/p Ross Procedure at [facility] in 1994 (Pulmonic valve moved to aortic position, prosthetic PV placed). No recent TTEs at [place]. Lexiscan nuclear stress test at [place] 05/2017 - negative for ischemia. Presents with increasing dyspnea. Chest xray - chronic interstitial changes. No acute process. ECG 10/06/2017- Atrial fibrillation, RVR. Patient diagnosed with CHF primary team, given Lasix 40 mg IV BID. Examination: Irregular rate and rhythm, unable to appreciate murmurs Breath sounds clear. No significant edema. Impressions: Dyspnea unclear etiology. Symptoms have improved with diuresis. Appears euvolemic on my examination today. AF better HR control, but remains suboptimal. History of bicuspid AV s/p Ross procedure 1994 at [facility]. No recent TTEs at [place]. CKD, Cr at baseline. PHTN (per RHC at [facility]). Group II per reports, related to LV diastolic dysfunction Recommendations: Given dyspnea and new AF, recommend TTE. Agree with Heparin. CHADS-VASc is elevated, at least moderate thromboembolic risk. If no compelling contraindication, I would recommend full anticoagulation. Given CKD, Coumadin would probably be the best choice. HR better controlled, but suboptimal. BP some what marginal, will continue to monitor HR for now. Ok to hold Imdur. Recent negative stress test, no chest pain, no known history of CAD. Ischemic evaluation not necessary at this time. Thanks, Edward Arnold DO, FACC
[2017-10-07] MEDS: Gabapentin 100 MG CAPSULE PO SCH (21:06)
[2017-10-08] MEDS: Heparin 25,000 UNIT/500 ML D5W 25,000 UNIT/500 ML BAG IVC SCH (00:30)
[2017-10-08] MEDS: Ipratropium/Albuterol Neb 3 ML IH SCH ×4 (04:07→21:56)
[2017-10-08 05:22] LABS: Basophils % 0.3 %; Eosinophils # 0.2 K/mcL (0.0-0.6); Eosinophils % 2.3 %; Hematocrit 30.4 % (35.3-44.9); Hemoglobin 9.4 g/dL (11.5-15.4); Immature Granulocytes % 0.1 % (0-4); Lymphocytes # 0.8 K/mcL (0.6-4.6); Lymphocytes % 12.3 %; Mean Corpuscular HGB Conc 30.9 g/dL (31.6-35.5); Mean Corpuscular Hemoglobin 27.7 pg (28.0-33.3); Mean Corpuscular Volume 89.7 fL (83.0-100.0); Monocytes # 0.4 K/mcL (0.0-1.3); Neutrophils # 5.4 K/mcL (1.6-8.9); Platelet Count 121 K/mcL (140-400); Red Blood Count 3.39 M/mcL (3.82-4.97); Red Cell Distribution Width 15.5 % (11.5-14.5)
[2017-10-08 05:38] LABS: Albumin 3.3 g/dL (3.5-5.7); Albumin/Globulin Ratio 1.1 (1.1-2.2); Bilirubin,Total 0.3 mg/dL (0.3-1.0); Calcium 8.2 mg/dL (8.6-10.3); Globulin 3.1 g/dL (2.4-3.5); Potassium 3.6 mEq/L (3.5-5.1); Total Protein 6.4 g/dL (6.4-8.9)
[2017-10-08] MEDS: FLUTICASONE PROPIONATE IH SCH ×2 (08:21→20:23)
[2017-10-08] MEDS: (Cyclosporine [Restasis] 1 DROP) OP SCH ×2 (08:21→20:23)
[2017-10-08] MEDS: (Azelastine Hcl [Azelastine Hcl] 1 DROP) OP SCH ×2 (08:21→20:23)
[2017-10-08] MEDS: (Fluticasone/Vilanterol [Breo Ellipta 100-25 Mcg Inh]) IH SCH (08:22)
[2017-10-08] MEDS: Furosemide 40 MG/4 ML VIAL IVP SCH (08:26)
[2017-10-08] MEDS: Aspirin Enteric Coated 81 MG Tablet PO SCH (08:26)
[2017-10-08] MEDS: Loratadine 10 MG TABLET PO SCH (08:26)
[2017-10-08] MEDS: Nystatin POWDER 30 GM BOTTLE TP SCH ×2 (08:27→20:23)
--- NOTE | 2017-10-08 09:33 | Cardiology Progress Note ---
Addendum entered and electronically signed by Paola Rodriguez MD 10/08/17 14 :13: As patient with recent history of intracranial bleed (subdural hematoma along the falx) (ct head performed here at [facility] on 06/04/2017 with subsequent transfer to [place]) coupled with patient's need for potential halfway anticoagulation, we decided to consult neurology. 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 Original Note: <Paola Rodriguez - Last Filed: 10/08/17 12:51> Date of Encounter: 10/08/17 Time of Encounter: 09:29 Assessment and Plan (1) Atrial fibrillation Current Visit: Yes Status: Acute Patient s/p Ross procedure at [facility] in 1994 secondary to congenital bicuspid aortic valve. (Pulmonic valve moved to aortic position, prosthetic PV placed). -Lexiscan nuclear stress test at [facility] 05/2017. -No recent echocardiogram. -CXR 10-06-2016- chronic interstitial changes, no acute process. -ECG 10/06/2016 atrial fibrilltion with RVR. -RHC/LHC 2008 at [facility]- pulmonary HTN, related to LV diastolic dysfunction -Echcardiogram on 10/06/2017 demonstrates LVEF of 65%, atypical septal wall motion with postoperative status, indeterminate diastolic function, right ventricle dilation with normal function, moderate paravalvular prosthetic aortic regurgitation, bioprosthetic aortic valve well visualized. Mild mitral regurgitation, moderate tricuspid regurgitation, mild pulmonic regurgitation, mild pulmonary hypertension. -Paravalvular aortic regurgitation appears stabled and unchanged from previous echo. -BP stable overnight, increased Coreg to 12.5 mg ADRIÁN BID (from 6.25 mg PO BID). -ASA, lipitor -Agree with heparin drip. Moderate thromboembolic risk (CHADS-VASc score of 4). -Coumadin optimal choice for halfway anticoagulation due to CKD. -Due to patient's history of recent intracranial bleed s/p fall as well as blindness, will discuss with patient halfway anticoagulation with coumadin. Discussed with Dr. Mcgrath the potential for cardioversion. Qualifiers: Atrial fibrillation type: unspecified Qualified Code(s): I48.91 - Unspecified atrial fibrillation (2) CHF exacerbation Current Visit: Yes Status: Acute Echocardiogram on 01/01/2017 LVEF 60-65% with moderate left ventricular diastolic dysfunction, bioprosthetic aortic valve, moderate aortic regurgitation , mild tricuspid regurgitation, moderate pulmonary regurgitation, and moderate pulmonary hypertension. Echcardiogram on 10/06/2017 demonstrates LVEF of 65%, atypical septal wall motion with postoperative status, indeterminate diastolic function, right ventricle dilation with normal function, moderate paravalvular prosthetic aortic regurgitation, bioprosthetic aortic valve well visualized. Mild mitral regurgitation, moderate tricuspid regurgitation, mild pulmonic regurgitation, mild pulmonary hypertension. -Patient appears euvolemic on physical exam. Creatinine trending upwards to 2.16 today. -Changed IV lasix to PO daily. -Monitor SHAMEKA's, daily weights. Qualifiers: Congestive heart failure type: diastolic Qualified Code(s): I50.33 - Acute on chronic diastolic (congestive) heart failure (3) Chronic kidney disease, stage III (moderate) Current Visit: No Status: Acute Creatinine trending upwars from 1.75 on admission to 2.16 today -Patient's dyspnea resolved. Clear lung sounds, minimal extremity edema. -Changed lasix to PO from IV. Discussion w patient/family: The assessment and plan as outlined above was discussed with the patient and/or family members who expressed understanding and agreement. All questions were answered. Thank you for involving us in the care of your patient. Please call with any questions. Subjective Principal diagnosis: Atrial Fibrillation with RVR Interval history: 71 yo female with PMHx of HTN, COPD, GERD, diastolic CHF, s/p Ross procedure in 1994 at [facility] admitted to [facility] on 10/06/2017 for dypnea and CHF acute on chronic failure/exacerbation. Patient is resting comfortably this morning. She does report intermittent chest pressure in the midsternal region with no radiation, associated SOB, or nausea. She does report feeling her heart flutter this morning. Patient expressed concern over the risks of long-term anticoagulation. Objective Vital Signs, Last 4 Hours Temp Pulse Resp BP Pulse Ox 10/08/17 08:34 98.6 F 89 18 117/87 94 General: Conversant, No Apparent Distress HEENT: Atraumatic, Mucus Membranes Moist Cardiac: Normal S1 and S2, Other (Tachycardia, regular.) Lungs: Normal Breath Sounds, No Wheeze, Rales, Rhonchi Neuro: Alert and responsive, Other Abdomen: Soft, Non-Tender Skin: Other (Patient with covered wound on her right lower extremity. Bandage clean/dry/intact. ) Musculoskeletal: No Chest Wall Tenderness Extremities: No Clubbing, No Cyanosis, Other (mild 1+ bilateral pittin edema) Results 10/08/17 04:46 10/08/17 04:46 Lab Results 10/07/17 10/07/17 10/08/17 15:12 21:22 04:46 WBC 6.8 Hgb 9.4 L Hct 30.4 L Plt Count 121 L APTT 67.0 H 57.0 H Sodium Potassium Chloride Carbon Dioxide BUN Creatinine Glucose Calcium Magnesium Total Bilirubin AST ALT Alkaline Phosphatase 10/08/17 10/08/17 10/08/17 04:46 04:46 04:46 WBC Hgb Hct Plt Count APTT 45.6 H Sodium 139 Potassium 3.6 Chloride 105 Carbon Dioxide 25 BUN 37 H Creatinine 2.16 H Glucose 117 H Calcium 8.2 L Magnesium 1.8 Total Bilirubin 0.3 AST 12 L ALT 8 Alkaline Phosphatase 51 Consult Discharge Plan - Plan Referrals: Lokesh Cooper MD [Primary Care Provider] - 10/16/17 9:45 am Fernando Najera MD [Partnered Physician] - 11/17/17 2:30 pm <Criselda Mcgrath - Last Filed: 10/08/17 15:03> Date of Encounter: 10/08/17 Assessment and Plan Discussion w patient/family: I have seen and examined Janiya Barber independently of the house staff and discussed with them all pertinent findings. I have personally reviewed all available clinical data. I have been involved in the formulation of the documented assessment and plan. 1. AFIB: Recent echo demonstrates normal LVEF with moderate paravalvular prosthetic aortic regurgitation, similar to prior echo. Nuclear stress test at [facility] in May 2017 was negative for ischemia. Recommend uptitrating coreg for better HR control. Briefly discussed role for RICHARD/DCCV - patient is open to proceeding but this would require full anticoagulation for at least 3 months. In regards to anticoagulation, CHADSVASC score is 4, possibly higher (history suggests possibility of TIA's). Ideally would recommend full AC. However, she recently had a fall and intracranial bleed in May 2017. She is also legally blind and there is risk for fall. At this time, we've asked Neurology for their assistance to help guide medical therapy. 2. CHF: Presumably diastolic CHF - creatinine is worsening. Recommend stopping IV lasix and transitioning to PO. Objective Vital Signs, Last 4 Hours Temp Pulse Resp BP Pulse Ox 10/08/17 11:52 97.7 F 110 18 101/75 96 10/08/17 11:14 16 95 Results 10/08/17 04:46 10/08/17 04:46 Lab Results 10/07/17 10/07/17 10/08/17 15:12 21:22 04:46 WBC 6.8 Hgb 9.4 L Hct 30.4 L Plt Count 121 L APTT 67.0 H 57.0 H Sodium Potassium Chloride Carbon Dioxide BUN Creatinine Glucose Calcium Magnesium Total Bilirubin AST ALT Alkaline Phosphatase 10/08/17 10/08/17 10/08/17 04:46 04:46 04:46 WBC Hgb Hct Plt Count APTT 45.6 H Sodium 139 Potassium 3.6 Chloride 105 Carbon Dioxide 25 BUN 37 H Creatinine 2.16 H Glucose 117 H Calcium 8.2 L Magnesium 1.8 Total Bilirubin 0.3 AST 12 L ALT 8 Alkaline Phosphatase 51 10/08/17 11:57 WBC Hgb Hct Plt Count APTT 104.2 H D Sodium Potassium Chloride Carbon Dioxide BUN Creatinine Glucose Calcium Magnesium Total Bilirubin AST ALT Alkaline Phosphatase
--- NOTE | 2017-10-08 15:03 | Neurology - Consult Note ---
Date of Encounter: 10/08/17 Time of Encounter: 15:00 Assessment and Plan (1) History of subdural hematoma (post traumatic) Current Visit: Yes Status: Resolved Patient has a history of subdural hematoma in May 2017 that occurred after a fall. Patient was treated nonoperatively at [facility]. In regards to chronic anticoagulation for atrial fibrillation a traumatic subdural hematoma that has resolved is not an absolute contraindication to long-term anticoagulation. We will repeat head CT to ensure resolution and no other intracranial pathology is present. Nevertheless the patient is at high risk for falls and bleeding with chronic anticoagulation given her legal blindness and other chronic medical conditions. On the other hand the patient is at high risk for thromboembolic stroke due to A. fib given that her [id number] score is at least 4 and possibly 6 if the episodes of facial drooping that she reports in the past are considered a TIA. This would put her yearly CVA risk at 5-10%. Will check head CT to ensure resolution of her subdural hematoma and obtain records from [facility] regarding her treatment course of her subdural hematoma. Once all the information is obtained we will have further discussions with the patient and hopefully her nephew who is her primary caregiver so that they can participate in a shared decision making process regarding long-term anticoagulation as patient is high risk for both CVA and falls. This was discussed at length with the cardiology team. (2) Atrial fibrillation Current Visit: Yes Status: Acute Qualifiers: Atrial fibrillation type: unspecified Qualified Code(s): I48.91 - Unspecified atrial fibrillation (3) Legally blind Current Visit: Yes Status: Chronic History of Present Illness Chief complaint: Dyspnea HPI: Ms. 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 She was found to have new onset atrial fibrillation. Neurology was consulted for assistance with possible anticoagulation in the setting of atrial fibrillation for stroke prevention. Patient states that in May she went to sit on a chair and missed in the chair flipped up over her head and she hit her head. She states that she had some soreness in the back of her head but otherwise felt fine. She went to see her primary care physician next day and a head CT was performed at that time that revealed a subdural hematoma. The patient was transferred to [facility] where she was observed and did not require operative management of her subdural hematoma. She states that she has felt good since then. She denies any recent falls but has had episodes where she is unsteady on her feet. She does not use a walker at home. She lives at home with her nephew who assists her in her activities of daily living. She denies history of stroke but does report several episodes of facial drooping that resolved spontaneously and she is not been evaluated for these episodes. She denies any other history of neurologic disorders or abnormal bleeding. Past Med Surg Social Fam HX - Past Medical History Medical history: arthritis, asthma, cardiomyopathy, CHF, COPD, GERD, hyperlipidemia, hypertension, osteoporosis, renal disease, venous stasis, valvular heart disease, other (retinitis pigmentosa and Pablo Bonnet Syndrome) Psychiatric history: anxiety, depression - Past Surgical History Surgical History: cataract, cholecystectomy, heart valve replacement, herniorrhaphy, hysterectomy, knee replacement, orthopedic, other, sinus surgery , other - Social History Smoking Status: Never smoker Smokeless Tobacco Status: No Alcohol use: none Drug use: none - Family History Father Race: Family Member Ethnicity: Non- Living Status: Age at : 88 Cause of : HD Hx Family Cardiac Disorders: Yes (HD, Pig valve, HD) Hx Family Cancer: Yes (Cancer on lip) Hx Family GI Disorders: Yes (CKD) Hx Family Endocrine Disorder: Yes (Gallstones) Sister Race: Family Member Ethnicity: Non- Living Status: Age at : 60 Cause of : DM complications Hx Family Genitourinary Disorders: Yes (Gout) Hx Family Endocrine Disorder: Yes (DM) Mother Living Status: Age at : 81 Cause of : HD Hx Family Cardiac Disorders: Yes (HD, Anemia) Hx Family Genitourinary Disorders: Yes (CKD) Hx Family Medical Disorders: Yes (Anemia) Medications and Allergies Carvedilol [Coreg] 6.25 mg PO BID 04/30/15 [History] Cyclosporine [Restasis] 1 drop BOTH EYES BID 04/30/15 [History] Fluticasone Propionate [Flovent Diskus] 2 puff IH BID 04/30/15 [History] Isosorbide MONOnitrate [Isosorbide Mononitrate ER] 60 mg PO DAILY 04/30/15 [ History] Potassium Chloride 20 meq PO DAILY 06/19/16 [History] Calcitriol [Rocaltrol] 0.25 mcg PO DAILY 03/20/17 [History] Furosemide [Lasix] 40 mg PO DAILY 03/20/17 [History] Azelastine HCl 1 drop OP BID 07/20/17 [History] Fluticasone/Vilanterol [Breo Ellipta 100-25 Mcg INH] 1 each IH DAILY 07/20/17 [ History] Gabapentin [Neurontin] 100 mg PO HS 07/20/17 [History] Loratadine [Claritin] 10 mg PO DAILY 07/20/17 [History] Nystatin POWDER [Nystop] 1 appl TP BID 07/20/17 [History] Tamsulosin [Flomax] 0.4 mg PO DAILY 07/20/17 [History] Albuterol Sulfate [Albuterol Inhaler] 2 puff IH Q4HR PRN 08/27/17 [History] Albuterol Neb [AccuNeb] 0.63 mg IH Q12H PRN 10/06/17 [History] Atorvastatin Calcium [Lipitor] 20 mg PO HS 10/06/17 [History] Esomeprazole Magnesium [Nexium] 40 mg PO DAILY 10/06/17 [History] Guaifenesin [Mucinex] 600 mg PO Q12H PRN 10/06/17 [History] 3 Allergy/AdvReac Type Severity Reaction Status Date / Time ciprofloxacin [From Cipro] Allergy Hives Verified 08/27/17 11:02 meperidine [From Demerol] AdvReac Vomiting Verified 08/27/17 11:02 All Systems: A 10-system review of systems was performed and is negative for pertinent findings except as documented above in the HPI. Physical Examination - Vital Signs Vital Signs: Initial Vital Signs Temp Pulse Resp BP Pulse Ox 97.4 F L 117 30 148/112 96 10/06/17 13:30 10/06/17 13:30 10/06/17 13:30 10/06/17 13:30 10/06/17 13:30 - Exam Exam: Patient is blind and has no reaction to rapid movements in front of her eyes. - Constitutional General appearance: comfortable - Neurologic Sensorimotor examination: intact Detailed motor examination: grossly full strength in all extremities Detailed sensory examination: intact Mental Status Examination: awake, alert, oriented to person, oriented to place, oriented to time, follows commands appropriately, answers questions appropriately Ocular dysmotility: ocular dysmetria Results - Laboratory Findings CBC and BMP: 10/08/17 04:46 10/08/17 04:46 Abnormal lab findings: Abnormal lab results RBC 3.39 M/mcL (3.82-4.97) L 10/08/17 04:46 Hgb 9.4 g/dL (11.5-15.4) L 10/08/17 04:46 Hct 30.4 % (35.3-44.9) L 10/08/17 04:46 MCH 27.7 pg (28.0-33.3) L 10/08/17 04:46 MCHC 30.9 g/dL (31.6-35.5) L 10/08/17 04:46 RDW 15.5 % (11.5-14.5) H 10/08/17 04:46 Plt Count 121 K/mcL (140-400) L 10/08/17 04:46 PT 13.2 Seconds (9.4-12.1) H 10/06/17 13:42 APTT 104.2 Seconds (26.0-36.0) H D 10/08/17 11:57 ABG pH 7.30 pH Units (7.32-7.45) L 10/06/17 13:42 ABG pCO2 47 mmHg (35-45) H 10/06/17 13:42 ABG pO2 152 mmHg (85-104) H 10/06/17 13:42 ABG O2 Saturation 99 % (95-98) H 10/06/17 13:42 ABG Base Excess -4 mEq/L (-2 to 3) L 10/06/17 13:42 BUN 37 mg/dL (8-23) H 10/08/17 04:46 Creatinine 2.16 mg/dL (0.60-1.20) H 10/08/17 04:46 Est GFR ( Amer) 27 (> 60) L 10/08/17 04:46 Est GFR (Non-Af Amer) 22 (> 60) L 10/08/17 04:46 Glucose 117 mg/dL (70-105) H 10/08/17 04:46 Calcium 8.2 mg/dL (8.6-10.3) L 10/08/17 04:46 AST 12 Units/L (13-39) L 10/08/17 04:46 B-Natriuretic Peptide 258 pg/mL (Less than 100) H 10/06/17 13:42 Albumin 3.3 g/dL (3.5-5.7) L 10/08/17 04:46 HDL Cholesterol 28 mg/dL (40-59) L 10/07/17 01:19 Consult Discharge Plan - Plan Referrals: Lokesh Cooper MD [Primary Care Provider] - 10/16/17 9:45 am Fernando Najera MD [Partnered Physician] - 11/17/17 2:30 pm
[2017-10-08] MEDS: Acetaminophen 325 MG TABLET PO PRN (15:57)
[2017-10-08] MEDS: Levalbuterol Neb 0.63 MG/3 ML IH SCH ×2 (16:28→21:57)
--- NOTE | 2017-10-08 17:10 | Internal Med Progress Note ---
Date of Encounter: 10/08/17 Time of Encounter: 17:07 - Assessment and plan (1) Atrial fibrillation Current Visit: Yes Status: Acute Assessment and plan: Acute onset of new atrial flutter. TSH and free T4. Heart rate is from 90-120 , she denies palpation. She is on carvedilol twice a day, cardiology was consulted. Continue heparin drip. cardiology recommend coumadin await for neurology to in due to hx ICH. Qualifiers: Atrial fibrillation type: unspecified Qualified Code(s): I48.91 - Unspecified atrial fibrillation (2) Acute respiratory failure with hypoxia Current Visit: No Status: Acute Assessment and plan: In the emergency room patient was found to hypoxia placed on BiPAP, she received IV Lasix. Her oxygenation improved currently on room air. She had the VQ scan shows low probability. Likely from combination of CHF and atrial flutter resolved on RA now (3) CHF exacerbation Current Visit: Yes Status: Acute Assessment and plan: Patient had echocardiogram done in December 2016 showed a normal EF 60-65%, possible acute on chronic diastolic CHF exacerbation improved and was IV Lasix. Qualifiers: Congestive heart failure type: diastolic Qualified Code(s): I50.33 - Acute on chronic diastolic (congestive) heart failure (4) DVT prophylaxis Current Visit: Yes Status: Acute Assessment and plan: All heparin drip (5) Chronic kidney disease, stage III (moderate) Current Visit: No Status: Acute Assessment and plan: Cr trending up, will monitor (6) COPD (chronic obstructive pulmonary disease) Current Visit: Yes Status: Chronic Assessment and plan: History of COPD not on acute exacerbation, she is not on home O2. No wheezing Qualifiers: COPD type: unspecified COPD Qualified Code(s): J44.9 - Chronic obstructive pulmonary disease, unspecified (7) GERD (gastroesophageal reflux disease) Current Visit: Yes Status: Chronic Assessment and plan: Continue PPI Qualifiers: Esophagitis presence: esophagitis presence not specified Qualified Code(s) : K21.9 - Gastro-esophageal reflux disease without esophagitis (8) HLD (hyperlipidemia) Current Visit: Yes Status: Chronic Assessment and plan: Continue stain Qualifiers: Hyperlipidemia type: pure hypercholesterolemia Qualified Code(s): E78.00 - Pure hypercholesterolemia, unspecified; E78.0 - Pure hypercholesterolemia (9) HTN (hypertension) Current Visit: Yes Status: Chronic Assessment and plan: Continue home medication home medication Qualifiers: Hypertension type: essential hypertension Qualified Code(s): I10 - Essential (primary) hypertension (10) Obesity (BMI 30-39.9) Current Visit: No Status: Chronic (11) Chest pain Current Visit: Yes Status: Acute Assessment and plan: Chest pain is soft, she has 2 negative troponin. Likely from atrial flutter and hypoxia combination.-Echcardiogram on 10/06/2017 demonstrates LVEF of 65%, atypical septal wall motion with postoperative status, indeterminate diastolic function, right ventricle dilation with normal function, moderate paravalvular prosthetic aortic regurgitation, bioprosthetic aortic valve well visualized. Mild mitral regurgitation, moderate tricuspid regurgitation, mild pulmonic regurgitation, mild pulmonary hypertension. Qualifiers: Chest pain type: unspecified Qualified Code(s): R07.9 - Chest pain, unspecified (12) History of subdural hematoma (post traumatic) Current Visit: Yes Status: Resolved Assessment and plan: (1) History of subdural hematoma (post traumatic) Current Visit: Yes Status: Resolved Patient has a history of subdural hematoma in May 2017 that occurred after a fall. neurology was consulted, CT head showed resolving, await for neurology to in for coumadin - Time Spent With Patient Greater than 35 minutes - Subjective Interval history: Ms. Barber is a 71 year old female with medical hx of arthritis, asthma, cardiomyopathy, CHF, COPD, GERD, HLD, HTN, osteoporosis, renal disease, venous stasis, and valvular heart disease presents in the ED with chief complaint of shortness of breath and dyspnea on 10/06. Patient reports she has shortness of breath chronically patient's symptoms worsening, Patient reports cough, right- sided chest pain w/radiation to rt. neck, SOB, and dyspnea w/wo exertion but denies recent illness, fever, chills, nausea, vomiting, changes in vision, headache, unusual bleeding, numbness, tingling, weakness, fatigue, dizziness, diaphoresis, lightheadedness, pre-syncope, or syncope. Patient was admitted on October 06 for atrial fibrillation was RVR, shortness of breath Patient is doing well overnight she is on room air sitting 98-100%. Patient's reported that she was not on home O2. She was recently discharged from long-term to home. Her shortness of breast improved and her leg swelling also improved. She denies active chest pain Heart rate is between 100-120. Continue heparin drip. she c/o nasal congestion, just started last night, will give flonase - Constitutional Vitals: Temp Pulse Resp BP Pulse Ox 98.8 F 94 20 110/76 95 10/08/17 15:59 10/08/17 15:59 10/08/17 16:27 10/08/17 15:59 10/08/17 16:27 General appearance: Present: cooperative, A&O X 3, pleasant, no acute distress, obese, answers questions appropriately Exam: CONSTITUTIONAL: patient appears as an age appropriate female in no acute distress. EYES Clear sclerae, bilateral pupils are equal, reactive to light. EMOI. RESPIRATORY: No accessory muscle use, bilateral diminished breath sounds to auscultation, no wheezing, no crackles/rales. CARDIOVASCULAR: Regular heart rate, normal S1 and S2, no murmurs GASTROINTESTINAL: bowel sounds present, soft, no tenderness. MUSCULOSKELETAL: Joints in normal range of motion, no clubbing, no edema, no cyanosis. Bilateral peripheral pulses 2+. NEUROLOGIC: CN II to XII are grossly intact, no focal neurological deficit. Internal Medicine: Result - Labs CBC & Chem 7: 10/08/17 04:46 10/08/17 04:46 Labs: Short CBC 10/08/17 Range/Units 04:46 WBC 6.8 (4.3-11.1) K/mcL Hgb 9.4 L (11.5-15.4) g/dL Hct 30.4 L (35.3-44.9) % Plt Count 121 L (140-400) K/mcL Neutrophils # 5.4 (1.6-8.9) K/mcL BMP 10/08/17 04:46 Sodium 139 Potassium 3.6 Chloride 105 Carbon Dioxide 25 BUN 37 H Creatinine 2.16 H Glucose 117 H Calcium 8.2 L Liver Function 10/08/17 Range/Units 04:46 Total Bilirubin 0.3 (0.3-1.0) mg/dL AST 12 L (13-39) Units/L ALT 8 (7-52) Units/L Alkaline Phosphatase 51 (34-104) Units/L Albumin 3.3 L (3.5-5.7) g/dL - ABG Interpretation ABG results: ABG ABG pH 7.30 pH Units (7.32-7.45) L 10/06/17 13:42 ABG pCO2 47 mmHg (35-45) H 10/06/17 13:42 ABG pO2 152 mmHg (85-104) H 10/06/17 13:42 ABG O2 Saturation 99 % (95-98) H 10/06/17 13:42 PT/INR, D-dimer PT 13.2 Seconds (9.4-12.1) H 10/06/17 13:42 - Impressions Impressions Head CT 10/08/17 14:39 IMPRESSION: No acute intracranial abnormality. Interval resolution of previously noted foci of intracranial hemorrhage. D/ / Kirt Pemberton MD / Kirt Pemberton MD Interpreting Provider: Kirt Pemberton MD Consult Discharge Plan - Plan Referrals: Lokesh Cooper MD [Primary Care Provider] - 10/16/17 9:45 am Fernando Najera MD [Partnered Physician] - 11/17/17 2:30 pm
[2017-10-08] MEDS: Fluticasone Propionate Nasal 50 MCG/SPRAY BOTTLE NS SCH (18:30)
[2017-10-08] MEDS: Gabapentin 100 MG CAPSULE PO SCH (20:22)
[2017-10-09] MEDS: Heparin 25,000 UNIT/500 ML D5W 25,000 UNIT/500 ML BAG IVC SCH (01:05)
[2017-10-09 01:41] LABS: Basophils % 0.2 %; Eosinophils # 0.2 K/mcL (0.0-0.6); Eosinophils % 2.7 %; Hematocrit 29.4 % (35.3-44.9); Hemoglobin 9.5 g/dL (11.5-15.4); Immature Granulocytes % 0.3 % (0-4); Lymphocytes # 0.8 K/mcL (0.6-4.6); Lymphocytes % 12.9 %; Mean Corpuscular HGB Conc 32.3 g/dL (31.6-35.5); Mean Corpuscular Hemoglobin 28.4 pg (28.0-33.3); Monocytes # 0.4 K/mcL (0.0-1.3); Monocytes % 6.4 %; Neutrophils # 4.9 K/mcL (1.6-8.9); Platelet Count 118 K/mcL (140-400); Red Blood Count 3.34 M/mcL (3.82-4.97); Red Cell Distribution Width 15.5 % (11.5-14.5); Segmented Neutrophils % 77.5 %
[2017-10-09 02:04] LABS: Albumin 3.2 g/dL (3.5-5.7); Bilirubin,Total 0.3 mg/dL (0.3-1.0); Calcium 8.2 mg/dL (8.6-10.3); Globulin 3.1 g/dL (2.4-3.5); Potassium 3.7 mEq/L (3.5-5.1); Total Protein 6.3 g/dL (6.4-8.9)
[2017-10-09] MEDS: Ipratropium/Albuterol Neb 3 ML IH SCH ×4 (03:15→22:35)
[2017-10-09] MEDS: Levalbuterol Neb 0.63 MG/3 ML IH SCH ×4 (03:16→22:34)
[2017-10-09] MEDS: (Cyclosporine [Restasis] 1 DROP) OP SCH ×2 (08:14→19:43)
[2017-10-09] MEDS: FLUTICASONE PROPIONATE IH SCH ×2 (08:14→22:39)
[2017-10-09] MEDS: (Azelastine Hcl [Azelastine Hcl] 1 DROP) OP SCH ×2 (08:14→19:43)
[2017-10-09] MEDS: (Fluticasone/Vilanterol [Breo Ellipta 100-25 Mcg Inh]) IH SCH (08:15)
[2017-10-09] MEDS: Furosemide Oral Soln 40 MG/4 ML UDC PO SCH (08:28)
[2017-10-09] MEDS: Aspirin Enteric Coated 81 MG Tablet PO SCH (08:28)
[2017-10-09] MEDS: Loratadine 10 MG TABLET PO SCH (08:29)
--- NOTE | 2017-10-09 09:25 | Cardiology Progress Note ---
Addendum entered and electronically signed by Paola Rodriguez MD 10/09/17 16 :09: Cardiology signing off. -FU 2 weeks, continue increased dosage of Coreg and Coumadin. Original Note: <Paola Rodriguez - Last Filed: 10/09/17 14:04> Date of Encounter: 10/09/17 Time of Encounter: 09:23 Assessment and Plan (1) Atrial fibrillation Current Visit: Yes Status: Acute Patient s/p Ross procedure at [facility] in 1994 secondary to congenital bicuspid aortic valve. (Pulmonic valve moved to aortic position, prosthetic PV placed). -Lexiscan nuclear stress test at [place] 05/2017. -No recent echocardiogram. -CXR 10-06-2016- chronic interstitial changes, no acute process. -ECG 10/06/2016 atrial fibrilltion with RVR. -RHC/LHC 2008 at [facility]- pulmonary HTN, related to LV diastolic dysfunction -Echcardiogram on 10/06/2017 demonstrates LVEF of 65%, atypical septal wall motion with postoperative status, indeterminate diastolic function, right ventricle dilation with normal function, moderate paravalvular prosthetic aortic regurgitation, bioprosthetic aortic valve well visualized. Mild mitral regurgitation, moderate tricuspid regurgitation, mild pulmonic regurgitation, mild pulmonary hypertension. -Paravalvular aortic regurgitation appears stabled and unchanged from previous echo. -BP stable overnight, increased Coreg to 12.5 mg ADRIÁN BID (from 6.25 mg PO BID). -Patient Tachycardic this morning -ASA, lipitor -Moderate thromboembolic risk (CHADS-VASc score of at least 4). -Coumadin optimal choice for technician terminal and repeater anticoagulation due to CKD. -Neurology consulted. PMHx of traumatic intracranial bleed not a contraindication to anticoagulation. Patient still at risk for falls due to legal blindness combined with multiple chronic medical problems, however, arterial thromboembolic risk moderate to high. -10/09/2017- Reviewed neurology notes, after discussion of fall risk, we have decided that usp anticoagulation benefits outweight potential fall risk. -DC heparin, start coumadin. No need to bridge as its for afib. Qualifiers: Atrial fibrillation type: unspecified Qualified Code(s): I48.91 - Unspecified atrial fibrillation (2) CHF exacerbation Current Visit: Yes Status: Acute Echocardiogram on 01/01/2017 LVEF 60-65% with moderate left ventricular diastolic dysfunction, bioprosthetic aortic valve, moderate aortic regurgitation , mild tricuspid regurgitation, moderate pulmonary regurgitation, and moderate pulmonary hypertension. Echcardiogram on 10/06/2017 demonstrates LVEF of 65%, atypical septal wall motion with postoperative status, indeterminate diastolic function, right ventricle dilation with normal function, moderate paravalvular prosthetic aortic regurgitation, bioprosthetic aortic valve well visualized. Mild mitral regurgitation, moderate tricuspid regurgitation, mild pulmonic regurgitation, mild pulmonary hypertension. -Patient appears euvolemic on physical exam. Creatinine trending downwards from 2.15 yesterday to 2.06 today. -Changed IV lasix to PO daily yesterday. -Patient is minus 2 liters. Weight down from 95 to 91 kg -Does not appear to be fluid overload. -Recommend daily lasix 40 mg PO with follow up as an outpatient. Adjustments as tolerated by renal function. Qualifiers: Congestive heart failure type: diastolic Qualified Code(s): I50.33 - Acute on chronic diastolic (congestive) heart failure (3) Chronic kidney disease, stage III (moderate) Current Visit: No Status: Acute Creatinine trending upwars from 1.75 on admission, 2.16 yesterday, 2.06 today. -Patient's dyspnea resolved. Clear lung sounds, minimal extremity edema. -Changed lasix to PO from IV 10/08/2016. Discussion w patient/family: The assessment and plan as outlined above was discussed with the patient and/or family members who expressed understanding and agreement. All questions were answered. Thank you for involving us in the care of your patient. Please call with any questions. Subjective Principal diagnosis: Atrial Fibrillation with RVR Interval history: 71 yo female with PMHx of HTN, COPD, GERD, diastolic CHF, s/p Ross procedure in 1994 at [facility] admitted [facility] on 10/06/2017 for dypnea and CHF acute on chronic failure/exacerbation. Patient is resting comfortably this morning. She denies chest pain, sob, nausea, or palpitations. She denies lightheadness or dizziness. Objective Vital Signs, Last 4 Hours Temp Pulse Resp BP Pulse Ox 10/09/17 07:03 97.7 F 88 18 117/75 95 General: Conversant, No Apparent Distress HEENT: Atraumatic, Normocephaly, Mucus Membranes Moist Neck: No JVD Cardiac: Normal S1 and S2, Other (Tachycardia, irregular) Lungs: Normal Breath Sounds, No Wheeze, Rales, Rhonchi Neuro: Alert and responsive Abdomen: Soft, Non-Tender Skin: No rashes noted on visualized skin Extremities: No Clubbing, No Cyanosis, No Edema Results 10/09/17 01:32 10/09/17 01:32 Lab Results 10/08/17 10/08/17 10/09/17 11:57 19:30 01:32 WBC 6.4 Hgb 9.5 L Hct 29.4 L Plt Count 118 L APTT 104.2 H D 63.1 H Sodium Potassium Chloride Carbon Dioxide BUN Creatinine Glucose Calcium Total Bilirubin AST ALT Alkaline Phosphatase 10/09/17 10/09/17 01:32 01:32 WBC Hgb Hct Plt Count APTT 81.8 H Sodium 137 Potassium 3.7 Chloride 104 Carbon Dioxide 25 BUN 43 H Creatinine 2.06 H Glucose 103 Calcium 8.2 L Total Bilirubin 0.3 AST 10 L ALT 8 Alkaline Phosphatase 49 Consult Discharge Plan - Plan Referrals: Lokesh Cooper MD [Primary Care Provider] - 10/16/17 9:45 am Fernando Najera MD [Partnered Physician] - 11/17/17 2:30 pm <Criselda Mcgrath - Last Filed: 10/09/17 17:52> Date of Encounter: 10/09/17 Assessment and Plan Discussion w patient/family: I examined this patient and my medical decision-making was reviewed with the Resident Physician. I agree with the documented findings, disposition and treatment plan. Ms. Barber has no new complaints today. No new exam findings. Recommend continuing coreg at present dose - heart rates fairly controlled. Reviewed Neurology notes. Recommend anticoagulation with coumadin dosed per pharmacy. Heparin gtt can be stopped. Will need close outpatient follow up and re-evaluation of fall risk. Renal function improving after stopping IV lasix. Continue PO. No further recommendations. We will sign off. Please call with questions. Objective Vital Signs, Last 4 Hours Temp Pulse Resp BP Pulse Ox 10/09/17 16:11 97.9 F 90 18 112/75 98 Results 10/09/17 01:32 10/09/17 01:32 Lab Results 10/08/17 10/09/17 10/09/17 19:30 01:32 01:32 WBC 6.4 Hgb 9.5 L Hct 29.4 L Plt Count 118 L APTT 63.1 H Sodium 137 Potassium 3.7 Chloride 104 Carbon Dioxide 25 BUN 43 H Creatinine 2.06 H Glucose 103 Calcium 8.2 L Total Bilirubin 0.3 AST 10 L ALT 8 Alkaline Phosphatase 49 B-Natriuretic Peptide 10/09/17 10/09/17 10/09/17 01:32 10:16 12:28 WBC Hgb Hct Plt Count APTT 81.8 H 83.0 H Sodium Potassium Chloride Carbon Dioxide BUN Creatinine Glucose Calcium Total Bilirubin AST ALT Alkaline Phosphatase B-Natriuretic Peptide 311 H
[2017-10-09] MEDS: Fluticasone Propionate Nasal 50 MCG/SPRAY BOTTLE NS SCH (10:01)
[2017-10-09] MEDS: Nystatin POWDER 30 GM BOTTLE TP SCH ×2 (10:01→22:39)
--- NOTE | 2017-10-09 17:55 | Internal Med Progress Note ---
Date of Encounter: 10/09/17 Time of Encounter: 17:53 - Assessment and plan (1) Atrial fibrillation Current Visit: Yes Status: Acute Assessment and plan: Acute onset of new atrial flutter. TSH and free T4. Heart rate is from 90-120 , she denies palpation. She is on carvedilol twice a day, cardiology was consulted. Continue heparin drip. cardiology recommend coumadin await for neurology to ok due to hx ICH. Neurology is ok to start coumadin, cardiology discussed with patient , she agrees to have coumadin, coumadin started to night Qualifiers: Atrial fibrillation type: unspecified Qualified Code(s): I48.91 - Unspecified atrial fibrillation (2) Acute respiratory failure with hypoxia Current Visit: No Status: Acute Assessment and plan: In the emergency room patient was found to hypoxia placed on BiPAP, she received IV Lasix. Her oxygenation improved currently on room air. She had the VQ scan shows low probability. Likely from combination of CHF and atrial flutter resolved on RA now (3) CHF exacerbation Current Visit: Yes Status: Acute Assessment and plan: Patient had echocardiogram done in December 2016 showed a normal EF 60-65%, possible acute on chronic diastolic CHF exacerbation improved and was IV Lasix. Qualifiers: Congestive heart failure type: diastolic Qualified Code(s): I50.33 - Acute on chronic diastolic (congestive) heart failure (4) DVT prophylaxis Current Visit: Yes Status: Acute Assessment and plan: All heparin drip (5) Chronic kidney disease, stage III (moderate) Current Visit: No Status: Acute Assessment and plan: Cr trending up, will monitor (6) COPD (chronic obstructive pulmonary disease) Current Visit: Yes Status: Chronic Assessment and plan: History of COPD not on acute exacerbation, she is not on home O2. No wheezing Qualifiers: COPD type: unspecified COPD Qualified Code(s): J44.9 - Chronic obstructive pulmonary disease, unspecified (7) GERD (gastroesophageal reflux disease) Current Visit: Yes Status: Chronic Assessment and plan: Continue PPI Qualifiers: Esophagitis presence: esophagitis presence not specified Qualified Code(s) : K21.9 - Gastro-esophageal reflux disease without esophagitis (8) HLD (hyperlipidemia) Current Visit: Yes Status: Chronic Assessment and plan: Continue stain Qualifiers: Hyperlipidemia type: pure hypercholesterolemia Qualified Code(s): E78.00 - Pure hypercholesterolemia, unspecified; E78.0 - Pure hypercholesterolemia (9) HTN (hypertension) Current Visit: Yes Status: Chronic Qualifiers: Hypertension type: essential hypertension Qualified Code(s): I10 - Essential (primary) hypertension (10) Obesity (BMI 30-39.9) Current Visit: No Status: Chronic Assessment and plan: BMI 33, recommended lifestyle modification (11) Chest pain Current Visit: Yes Status: Acute Assessment and plan: Chest pain is soft, she has 2 negative troponin. Likely from atrial flutter and hypoxia combination.-Echcardiogram on 10/06/2017 demonstrates LVEF of 65%, atypical septal wall motion with postoperative status, indeterminate diastolic function, right ventricle dilation with normal function, moderate paravalvular prosthetic aortic regurgitation, bioprosthetic aortic valve well visualized. Mild mitral regurgitation, moderate tricuspid regurgitation, mild pulmonic regurgitation, mild pulmonary hypertension. Qualifiers: Chest pain type: unspecified Qualified Code(s): R07.9 - Chest pain, unspecified (12) History of subdural hematoma (post traumatic) Current Visit: Yes Status: Resolved Assessment and plan: (1) History of subdural hematoma (post traumatic) Current Visit: Yes Status: Resolved Patient has a history of subdural hematoma in May 2017 that occurred after a fall. neurology was consulted, CT head showed resolving, await for neurology to [place] for coumadin - Subjective Interval history: Ms. Barber is a 71 year old female with medical hx of arthritis, asthma, cardiomyopathy, CHF, COPD, GERD, HLD, HTN, osteoporosis, renal disease, venous stasis, and valvular heart disease presents in the ED with chief complaint of shortness of breath and dyspnea on 10/06. Patient reports she has shortness of breath chronically patient's symptoms worsening, Patient reports cough, right- sided chest pain w/radiation to rt. neck, SOB, and dyspnea w/wo exertion but denies recent illness, fever, chills, nausea, vomiting, changes in vision, headache, unusual bleeding, numbness, tingling, weakness, fatigue, dizziness, diaphoresis, lightheadedness, pre-syncope, or syncope. Patient was admitted on October 06 for atrial fibrillation was RVR, shortness of breath Patient is doing well overnight she is on room air sitting 98-100%. Patient's reported that she was not on home O2. She was recently discharged from longterm to home. Her shortness of breast improved and her leg swelling also improved. She denies active chest pain Heart rate is between 100-120. Continue heparin drip. nasal congestion improved with flonase she decided to go for coumadin - Constitutional Vitals: Temp Pulse Resp BP Pulse Ox 97.9 F 90 18 112/75 98 10/09/17 16:11 10/09/17 16:11 10/09/17 16:11 10/09/17 16:11 10/09/17 16:11 General appearance: Present: cooperative, A&O X 3, pleasant, no acute distress, obese, answers questions appropriately Exam: CONSTITUTIONAL: patient appears as an age appropriate female in no acute distress. EYES Clear sclerae, bilateral pupils are equal, reactive to light. EMOI. RESPIRATORY: No accessory muscle use, bilateral diminished breath sounds to auscultation, no wheezing, no crackles/rales. CARDIOVASCULAR: Regular heart rate, normal S1 and S2, no murmurs GASTROINTESTINAL: bowel sounds present, soft, no tenderness. MUSCULOSKELETAL: Joints in normal range of motion, no clubbing, no edema, no cyanosis. Bilateral peripheral pulses 2+. NEUROLOGIC: CN II to XII are grossly intact, no focal neurological deficit. Internal Medicine: Result - Labs CBC & Chem 7: 10/09/17 01:32 10/09/17 01:32 Labs: Short CBC 10/09/17 Range/Units 01:32 WBC 6.4 (4.3-11.1) K/mcL Hgb 9.5 L (11.5-15.4) g/dL Hct 29.4 L (35.3-44.9) % Plt Count 118 L (140-400) K/mcL Neutrophils # 4.9 (1.6-8.9) K/mcL BMP 10/09/17 01:32 Sodium 137 Potassium 3.7 Chloride 104 Carbon Dioxide 25 BUN 43 H Creatinine 2.06 H Glucose 103 Calcium 8.2 L Liver Function 10/09/17 Range/Units 01:32 Total Bilirubin 0.3 (0.3-1.0) mg/dL AST 10 L (13-39) Units/L ALT 8 (7-52) Units/L Alkaline Phosphatase 49 (34-104) Units/L Albumin 3.2 L (3.5-5.7) g/dL - ABG Interpretation ABG results: ABG ABG pH 7.30 pH Units (7.32-7.45) L 10/06/17 13:42 ABG pCO2 47 mmHg (35-45) H 10/06/17 13:42 ABG pO2 152 mmHg (85-104) H 10/06/17 13:42 ABG O2 Saturation 99 % (95-98) H 10/06/17 13:42 PT/INR, D-dimer PT 13.2 Seconds (9.4-12.1) H 10/06/17 13:42 Consult Discharge Plan - Plan Referrals: Lokesh Cooper MD [Primary Care Provider] - 10/16/17 9:45 am Fernando Najera MD [Partnered Physician] - 11/17/17 2:30 pm
[2017-10-09] MEDS ORDERED: Warfarin perPT PO PRN (18:00)
[2017-10-09] MEDS ORDERED: *HR* Warfarin 2.5 MG TABLET PO ONE (18:00)
[2017-10-09] MEDS: Acetaminophen 325 MG TABLET PO PRN (19:39)
[2017-10-09] MEDS: Gabapentin 100 MG CAPSULE PO SCH (19:39)
[2017-10-10 03:45] LABS: Basophils % 0.2 %; Eosinophils # 0.2 K/mcL (0.0-0.6); Eosinophils % 3.2 %; Hematocrit 30.7 % (35.3-44.9); Hemoglobin 9.7 g/dL (11.5-15.4); Immature Granulocytes % 0.3 % (0-4); Lymphocytes # 0.7 K/mcL (0.6-4.6); Lymphocytes % 10.7 %; Mean Corpuscular HGB Conc 31.6 g/dL (31.6-35.5); Mean Corpuscular Hemoglobin 28.2 pg (28.0-33.3); Mean Corpuscular Volume 89.2 fL (83.0-100.0); Mean Platelet Volume 10.1 fL (9.4-12.4); Monocytes # 0.4 K/mcL (0.0-1.3); Monocytes % 6.8 %; Platelet Count 132 K/mcL (140-400); Red Blood Count 3.44 M/mcL (3.82-4.97); Red Cell Distribution Width 15.3 % (11.5-14.5); Segmented Neutrophils % 78.8 %
[2017-10-10 04:02] LABS: INR 1.2
[2017-10-10 04:11] LABS: Albumin 3.2 g/dL (3.5-5.7); Albumin/Globulin Ratio 1.1 (1.1-2.2); Bilirubin,Total 0.3 mg/dL (0.3-1.0); Calcium 8.4 mg/dL (8.6-10.3); Potassium 3.9 mEq/L (3.5-5.1); Total Protein 6.2 g/dL (6.4-8.9)
[2017-10-10] MEDS: Ipratropium/Albuterol Neb 3 ML IH SCH ×4 (04:30→22:57)
[2017-10-10] MEDS: Levalbuterol Neb 0.63 MG/3 ML IH SCH ×4 (04:30→22:56)
[2017-10-10] MEDS: Loratadine 10 MG TABLET PO SCH (08:06)
[2017-10-10] MEDS: Aspirin Enteric Coated 81 MG Tablet PO SCH (08:06)
[2017-10-10] MEDS: Furosemide Oral Soln 40 MG/4 ML UDC PO SCH (08:06)
[2017-10-10] MEDS: Fluticasone Propionate Nasal 50 MCG/SPRAY BOTTLE NS SCH (08:06)
[2017-10-10] MEDS: Nystatin POWDER 30 GM BOTTLE TP SCH ×2 (08:07→21:35)
[2017-10-10] MEDS: FLUTICASONE PROPIONATE IH SCH ×2 (08:08→21:35)
[2017-10-10] MEDS: (Azelastine Hcl [Azelastine Hcl] 1 DROP) OP SCH ×2 (08:08→21:34)
[2017-10-10] MEDS: (Cyclosporine [Restasis] 1 DROP) OP SCH ×2 (08:08→21:34)
[2017-10-10] MEDS: (Fluticasone/Vilanterol [Breo Ellipta 100-25 Mcg Inh]) IH SCH (08:08)
[2017-10-10] MEDS: Acetaminophen 325 MG TABLET PO PRN ×2 (08:13→20:46)
--- NOTE | 2017-10-10 13:59 | Internal Med Progress Note ---
Date of Encounter: 10/10/17 Time of Encounter: 13:50 - Assessment and plan (1) Atrial fibrillation Current Visit: Yes Status: Acute Assessment and plan: Patient with atrial flutter/atrial fibrillation with rapid ventricular rate. Shee is on Coreg. Heart rate still in 100s. Cardiology following. Recommendation for anticoagulation documented. The patient had a recent intracranial bleed in May 2000 717. Neurology elevated for up to 20 coagulation. [place]a okay to anticoagulate. She was initially on IV heparin. Being changed to Coumadin. Heart rate needs better control. She also had the Onset of congestive heart failure. Received received diuretics. Her BUN/creatinine increasing. Clinically lungs are better. Qualifiers: Atrial fibrillation type: unspecified Qualified Code(s): I48.91 - Unspecified atrial fibrillation (2) CHF exacerbation Current Visit: Yes Status: Acute Assessment and plan: Patient had echocardiogram done in December 2016 showed a normal EF 60-65%, possible acute on chronic diastolic CHF exacerbation improved and was IV Lasix. Qualifiers: Congestive heart failure type: diastolic Qualified Code(s): I50.33 - Acute on chronic diastolic (congestive) heart failure (3) Acute on chronic renal failure Current Visit: Yes Status: Acute Assessment and plan: He has been on IV diuretics. Her creatinine was 1.75 to start with now it is 1.8 was increased up to 2.1. BUN is 44. Deterioration in renal function likely due to diuretic therapy. Since she is clinically improving with regard to CHF possibly can decrease the Lasix. Qualifiers: Qualified Code(s): N17.9 - Acute kidney failure, unspecified; N18.9 - Chronic kidney disease, unspecified; N18.9 - Chronic kidney disease, unspecified (4) Anemia Current Visit: Yes Status: Acute Assessment and plan: Her hemoglobin has been steadily decreasing. Her hemoglobin was 11.3 to start with has decreased to 9.7. She was on IV heparin. Now on Coumadin. Very closely have to monitor for any GI bleed. But have to reconsider about the anticoagulation again. Qualifiers: Anemia type: unspecified type Qualified Code(s): D64.9 - Anemia, unspecified - Time Spent With Patient Greater than 35 minutes - Subjective Interval history: Patient with atrial fibrillation/atrial flutter with a rapid ventricular rate and a decompensated congestive heart failure. She has been on Coreg. Had a history of intracranial bleed in May 2017. Neurology has been consulted regarding anticoagulation and felt okay to start anticoagulation. She received 2.5 mg of Coumadin last night. She is still in atrial flutter heart rate up to 90s her shortness of breath the is better. Denies any dizziness no syncopal episode. But she is still at very high risk for fall and recurrent bleed. Patient verbalized understanding. We will order another 2.5 mg of Coumadin tonight. Cardiology did not want to bridge with the Lovenox her heart rate has to be better controlled. He also had a CHF exacerbation which was treated with IV Lasix her Echcardiogram on 10/06/2017 demonstrates LVEF of 65%, atypical septal wall motion with postoperative status, indeterminate diastolic function, right ventricle dilation with normal function, moderate paravalvular prosthetic aortic regurgitation, bioprosthetic aortic valve well visualized. Mild mitral regurgitation, moderate tricuspid regurgitation, mild pulmonic regurgitation, mild pulmonary hypertension. - Constitutional Vitals: Temp Pulse Resp BP Pulse Ox 97.3 F L 87 18 107/61 95 10/10/17 11:45 10/10/17 11:45 10/10/17 11:45 10/10/17 11:45 10/10/17 11:45 General appearance: Present: cooperative, A&O X 3, pleasant, no acute distress, obese, answers questions appropriately Exam: Elderly female not in acute respiratory distress. She has pallor but no cyanosis or jaundice. Neck without any cervical or supraclavicular lymphadenopathy. CVS, S1-S2 regular, she is in atrial flutter. No murmur heard. Respiratory system decreased air entry bilaterally, occasional crepitations. Abdomen, soft nontender. No hepatomegaly. Extremities, edema 2+, has a skin lesion on the right leg which is a skin graft healing. There is erythema. On the right leg. 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 No focal neurological deficit. Internal Medicine: Result - Labs CBC & Chem 7: 10/10/17 03:30 10/10/17 03:30 Labs: Short CBC 10/10/17 Range/Units 03:30 WBC 6.3 (4.3-11.1) K/mcL Hgb 9.7 L (11.5-15.4) g/dL Hct 30.7 L (35.3-44.9) % Plt Count 132 L (140-400) K/mcL Neutrophils # 5.0 (1.6-8.9) K/mcL BMP 10/10/17 03:30 Sodium 137 Potassium 3.9 Chloride 105 Carbon Dioxide 25 BUN 44 H Creatinine 1.83 H Glucose 99 Calcium 8.4 L Liver Function 10/10/17 Range/Units 03:30 Total Bilirubin 0.3 (0.3-1.0) mg/dL AST 21 (13-39) Units/L ALT 20 (7-52) Units/L Alkaline Phosphatase 51 (34-104) Units/L Albumin 3.2 L (3.5-5.7) g/dL - ABG Interpretation ABG results: ABG ABG pH 7.30 pH Units (7.32-7.45) L 10/06/17 13:42 ABG pCO2 47 mmHg (35-45) H 10/06/17 13:42 ABG pO2 152 mmHg (85-104) H 10/06/17 13:42 ABG O2 Saturation 99 % (95-98) H 10/06/17 13:42 PT/INR, D-dimer PT 13.0 Seconds (9.4-12.1) H 10/10/17 03:30 Consult Discharge Plan - Plan Referrals: Lokesh Cooper MD [Primary Care Provider] - 10/16/17 9:45 am Fernando Najera MD [Partnered Physician] - 11/17/17 2:30 pm
[2017-10-10] MEDS ORDERED: *HR* Warfarin 5 MG TABLET PO ONE (18:00)
[2017-10-10] MEDS ORDERED: *HR* Warfarin 2.5 MG TABLET PO ONE (18:00)
[2017-10-10] MEDS: Gabapentin 100 MG CAPSULE PO SCH (20:45)
[2017-10-11] MEDS: Levalbuterol Neb 0.63 MG/3 ML IH SCH ×4 (04:46→21:50)
[2017-10-11] MEDS: Ipratropium/Albuterol Neb 3 ML IH SCH ×4 (04:47→21:50)
[2017-10-11 05:10] LABS: Basophils % 0.1 %; Eosinophils # 0.2 K/mcL (0.0-0.6); Eosinophils % 2.8 %; Hematocrit 30.5 % (35.3-44.9); Hemoglobin 9.7 g/dL (11.5-15.4); Immature Granulocytes % 0.4 % (0-4); Lymphocytes # 0.7 K/mcL (0.6-4.6); Lymphocytes % 10.4 %; Mean Corpuscular HGB Conc 31.8 g/dL (31.6-35.5); Mean Corpuscular Hemoglobin 28.4 pg (28.0-33.3); Mean Corpuscular Volume 89.4 fL (83.0-100.0); Mean Platelet Volume 10.7 fL (9.4-12.4); Monocytes # 0.5 K/mcL (0.0-1.3); Monocytes % 7.7 %; Neutrophils # 5.4 K/mcL (1.6-8.9); Platelet Count 128 K/mcL (140-400); Red Blood Count 3.41 M/mcL (3.82-4.97); Red Cell Distribution Width 15.4 % (11.5-14.5); Segmented Neutrophils % 78.6 %
[2017-10-11 05:14] LABS: INR 1.3; Prothrombin Time 13.9 Seconds (9.4-12.1)
[2017-10-11 05:30] LABS: Albumin 3.3 g/dL (3.5-5.7); Albumin/Globulin Ratio 1.1 (1.1-2.2); Bilirubin,Total 0.3 mg/dL (0.3-1.0); Calcium 8.4 mg/dL (8.6-10.3); Potassium 4.3 mEq/L (3.5-5.1); Total Protein 6.3 g/dL (6.4-8.9)
[2017-10-11] MEDS: Aspirin Enteric Coated 81 MG Tablet PO SCH (08:31)
[2017-10-11] MEDS: Furosemide Oral Soln 40 MG/4 ML UDC PO SCH (08:31)
[2017-10-11] MEDS: Loratadine 10 MG TABLET PO SCH (08:31)
[2017-10-11] MEDS: Fluticasone Propionate Nasal 50 MCG/SPRAY BOTTLE NS SCH (08:32)
[2017-10-11] MEDS: Nystatin POWDER 30 GM BOTTLE TP SCH ×2 (08:32→20:58)
[2017-10-11] MEDS: (Azelastine Hcl [Azelastine Hcl] 1 DROP) OP SCH ×2 (08:33→20:56)
[2017-10-11] MEDS: FLUTICASONE PROPIONATE IH SCH ×2 (08:33→20:57)
[2017-10-11] MEDS: (Fluticasone/Vilanterol [Breo Ellipta 100-25 Mcg Inh]) IH SCH (08:33)
[2017-10-11] MEDS: (Cyclosporine [Restasis] 1 DROP) OP SCH ×2 (08:33→20:57)
[2017-10-11] MEDS: Acetaminophen 325 MG TABLET PO PRN ×2 (11:31→20:55)
--- NOTE | 2017-10-11 15:31 | Internal Med Progress Note ---
Date of Encounter: 10/11/17 Time of Encounter: 15:28 - Assessment and plan (1) Chronic atrial fibrillation with rapid ventricular response Current Visit: Yes Status: Acute Assessment and plan: Currently in atrial fibrillation. Continue with Coreg for rate control. Follow -up with cardiology. Heart rate is better controlled between 80 and low 100s. Continue anticoagulation with Coumadin. (2) Legally blind Current Visit: Yes Status: Chronic Assessment and plan: Assistance with ADLs by nursing staff. (3) Obesity (BMI 30-39.9) Current Visit: No Status: Chronic Assessment and plan: BMI 34, recommended lifestyle modification (4) DVT prophylaxis Current Visit: Yes Status: Acute Assessment and plan: On Coumadin (5) CHF exacerbation Current Visit: Yes Status: Acute Assessment and plan: Patient had echocardiogram done in December 2016 showed a normal EF 60-65%, possible acute on chronic diastolic CHF exacerbation. We will continue with oral Lasix 40 mg daily. Daily weights. Strict I's and O' s. Qualifiers: Congestive heart failure type: diastolic Qualified Code(s): I50.33 - Acute on chronic diastolic (congestive) heart failure (6) CKD (chronic kidney disease) stage 4, GFR 15-29 ml/min Current Visit: Yes Status: Chronic Assessment and plan: Monitor GFR. Avoid nephrotoxins. Creatinine is 1.78 today, close to her baseline. (7) COPD (chronic obstructive pulmonary disease) Current Visit: Yes Status: Chronic Assessment and plan: History of COPD not on acute exacerbation, she is not on home O2. No wheezing. Continue inhaled Xopenex. Qualifiers: COPD type: unspecified COPD Qualified Code(s): J44.9 - Chronic obstructive pulmonary disease, unspecified (8) Atrial fibrillation Current Visit: Yes Status: Acute Assessment and plan: Rate controlled with Coreg. Continue with Coumadin for anticoagulation. No need for bridging with heparin due to history of intracranial bleed and increased risk of bleeding. Qualifiers: Atrial fibrillation type: unspecified Qualified Code(s): I48.91 - Unspecified atrial fibrillation - Subjective Interval history: Reports improvement in shortness of breath. She presented to the hospital 4 days ago with severe shortness of breath and respiratory distress. She had been treated for A. fib with RVR and CHF over the last 4 days. - Constitutional Vitals: Temp Pulse Resp BP Pulse Ox 97.7 F 89 20 122/88 98 10/11/17 12:17 10/11/17 12:17 10/11/17 12:17 10/11/17 12:17 10/11/17 12:17 General appearance: Present: cooperative, A&O X 3, pleasant, no acute distress, obese, answers questions appropriately - Respiratory Respiratory exam: Present: CTAB. Absent: accessory muscle use, rales, rhonchi, wheezes - Cardiovascular Cardiovascular exam: Present: irregular rhythm, +S1, +S2. Absent: diastolic murmur, gallop, rubs, systolic murmur - GI/Abdominal GI/Abdominal exam: Present: normal bowel sounds, soft, no peritoneal signs. Absent: distended, tenderness - Extremities Exam Extremities exam: Present: pedal edema, warm, radial pulses palpable and symmetrical. Absent: calf tenderness, cyanotic - Skin Skin exam: Present: dry, intact Internal Medicine: Result - Labs CBC & Chem 7: 10/11/17 04:38 10/11/17 04:38 Labs: Short CBC 10/11/17 Range/Units 04:38 WBC 6.8 (4.3-11.1) K/mcL Hgb 9.7 L (11.5-15.4) g/dL Hct 30.5 L (35.3-44.9) % Plt Count 128 L (140-400) K/mcL Neutrophils # 5.4 (1.6-8.9) K/mcL BMP 10/11/17 04:38 Sodium 142 Potassium 4.3 Chloride 107 Carbon Dioxide 25 BUN 44 H Creatinine 1.78 H Glucose 98 Calcium 8.4 L Liver Function 10/11/17 Range/Units 04:38 Total Bilirubin 0.3 (0.3-1.0) mg/dL AST 27 (13-39) Units/L ALT 28 (7-52) Units/L Alkaline Phosphatase 57 (34-104) Units/L Albumin 3.3 L (3.5-5.7) g/dL - ABG Interpretation ABG results: ABG ABG pH 7.30 pH Units (7.32-7.45) L 10/06/17 13:42 ABG pCO2 47 mmHg (35-45) H 10/06/17 13:42 ABG pO2 152 mmHg (85-104) H 10/06/17 13:42 ABG O2 Saturation 99 % (95-98) H 10/06/17 13:42 PT/INR, D-dimer PT 13.9 Seconds (9.4-12.1) H 10/11/17 04:38 Consult Discharge Plan - Plan Referrals: Lokesh Cooper MD [Primary Care Provider] - 10/16/17 9:45 am Fernando Najera MD [Partnered Physician] - 11/17/17 2:30 pm
[2017-10-11] MEDS ORDERED: *HR* Warfarin 5 MG TABLET PO ONE (18:00)
[2017-10-11] MEDS: Gabapentin 100 MG CAPSULE PO SCH (20:55)
[2017-10-12] MEDS: Ipratropium/Albuterol Neb 3 ML IH SCH ×4 (04:29→22:15)
[2017-10-12] MEDS: Levalbuterol Neb 0.63 MG/3 ML IH SCH ×3 (04:29→16:12)
[2017-10-12 04:42] LABS: Basophils % 0.1 %; Eosinophils # 0.2 K/mcL (0.0-0.6); Hematocrit 30.8 % (35.3-44.9); Hemoglobin 9.6 g/dL (11.5-15.4); Immature Granulocytes % 0.7 % (0-4); Lymphocytes # 0.8 K/mcL (0.6-4.6); Lymphocytes % 11.1 %; Mean Corpuscular HGB Conc 31.2 g/dL (31.6-35.5); Mean Corpuscular Hemoglobin 27.7 pg (28.0-33.3); Mean Platelet Volume 10.5 fL (9.4-12.4); Monocytes # 0.5 K/mcL (0.0-1.3); Monocytes % 7.7 %; Neutrophils # 5.3 K/mcL (1.6-8.9); Platelet Count 136 K/mcL (140-400); Red Blood Count 3.46 M/mcL (3.82-4.97); Red Cell Distribution Width 15.5 % (11.5-14.5); Segmented Neutrophils % 77.4 %
[2017-10-12 04:46] LABS: INR 1.3; Prothrombin Time 14.6 Seconds (9.4-12.1)
[2017-10-12 05:01] LABS: Calcium 8.7 mg/dL (8.6-10.3); Magnesium 1.9 mg/dL (1.6-2.6); Potassium 4.3 mEq/L (3.5-5.1)
[2017-10-12] MEDS: Furosemide 40 MG TABLET PO SCH (08:33)
[2017-10-12] MEDS: Aspirin Enteric Coated 81 MG Tablet PO SCH (08:33)
[2017-10-12] MEDS: Loratadine 10 MG TABLET PO SCH (08:34)
[2017-10-12] MEDS: Fluticasone Propionate Nasal 50 MCG/SPRAY BOTTLE NS SCH (08:35)
[2017-10-12] MEDS: (Cyclosporine [Restasis] 1 DROP) OP SCH (08:35)
[2017-10-12] MEDS: (Fluticasone/Vilanterol [Breo Ellipta 100-25 Mcg Inh]) IH SCH (08:35)
[2017-10-12] MEDS: FLUTICASONE PROPIONATE IH SCH (08:35)
[2017-10-12] MEDS: (Azelastine Hcl [Azelastine Hcl] 1 DROP) OP SCH (08:35)
[2017-10-12] MEDS: Acetaminophen 325 MG TABLET PO PRN ×2 (08:45→21:07)
[2017-10-12] MEDS: Nystatin POWDER 30 GM BOTTLE TP SCH ×2 (11:50→21:04)
--- NOTE | 2017-10-12 15:42 | Internal Med Progress Note ---
Date of Encounter: 10/12/17 Time of Encounter: 15:40 - Assessment and plan (1) Chronic atrial fibrillation with rapid ventricular response Current Visit: Yes Status: Acute Assessment and plan: Currently in atrial fibrillation. Continue with Coreg for rate control. Heart rate is better controlled between 80 and low 100s. Continue anticoagulation with Coumadin monitor daily INR to determine outpatient dosing needs. She had 2 days of IV heparin bridging, no need to continue with IV heparin at this time. CHADS-Vasc score of 4 puts her at high risk for embolic stroke. I have discussed the risk of intracranial bleeding at length with the patient given her multiple falls in the past. She states that she will be living with her nephew who will provide assistance with mobility, ambulation and transfers. (2) Legally blind Current Visit: Yes Status: Chronic Assessment and plan: Assistance with ADLs by nursing staff. (3) Obesity (BMI 30-39.9) Current Visit: No Status: Chronic Assessment and plan: BMI 34, recommended lifestyle modification (4) DVT prophylaxis Current Visit: Yes Status: Acute Assessment and plan: On Coumadin (5) CHF exacerbation Current Visit: Yes Status: Acute Assessment and plan: Patient had echocardiogram done in December 2016 showed a normal EF 60-65%, possible acute on chronic diastolic CHF exacerbation. We will continue with oral Lasix 40 mg daily which is her home dose. Patient currently appears euvolemic. Qualifiers: Congestive heart failure type: diastolic Qualified Code(s): I50.33 - Acute on chronic diastolic (congestive) heart failure (6) CKD (chronic kidney disease) stage 4, GFR 15-29 ml/min Current Visit: Yes Status: Chronic Assessment and plan: Monitor GFR. Avoid nephrotoxins. Creatinine is 1.78 today, close to her baseline. (7) COPD (chronic obstructive pulmonary disease) Current Visit: Yes Status: Chronic Assessment and plan: History of COPD not on acute exacerbation, she is not on home O2. No wheezing. Continue inhaled Xopenex. Qualifiers: COPD type: unspecified COPD Qualified Code(s): J44.9 - Chronic obstructive pulmonary disease, unspecified - Subjective Interval history: Reports breathing now back to normal. She presented to the hospital 6 days ago with severe shortness of breath and respiratory distress. She had been treated for A. fib with RVR and CHF. She reports having had 5 falls in the past while living by herself, last in May when she had an intracranial bleed that resolved w/o surgery. Says she will start living w/ nephew who will take care of her and will provide assistance with transfer and ambulation. - Constitutional Vitals: Temp Pulse Resp BP Pulse Ox 98.3 F 100 20 118/80 97 10/12/17 11:38 10/12/17 14:10 10/12/17 14:10 10/12/17 11:38 10/12/17 14:10 General appearance: Present: cooperative, A&O X 3, pleasant, no acute distress, obese, answers questions appropriately - Respiratory Respiratory exam: Present: CTAB. Absent: accessory muscle use, rales, rhonchi, wheezes - Cardiovascular Cardiovascular exam: Present: irregular rhythm, +S1, +S2. Absent: diastolic murmur, gallop, rubs, systolic murmur - GI/Abdominal GI/Abdominal exam: Present: normal bowel sounds, soft, no peritoneal signs. Absent: distended, tenderness - Extremities Exam Extremities exam: Present: warm, radial pulses palpable and symmetrical. Absent : calf tenderness, cyanotic, pedal edema Internal Medicine: Result - Labs CBC & Chem 7: 10/12/17 03:42 10/12/17 03:42 Labs: Short CBC 10/12/17 Range/Units 03:42 WBC 6.9 (4.3-11.1) K/mcL Hgb 9.6 L (11.5-15.4) g/dL Hct 30.8 L (35.3-44.9) % Plt Count 136 L (140-400) K/mcL Neutrophils # 5.3 (1.6-8.9) K/mcL BMP 10/12/17 03:42 Sodium 140 Potassium 4.3 Chloride 108 H Carbon Dioxide 25 BUN 46 H Creatinine 1.90 H Glucose 101 Calcium 8.7 - ABG Interpretation ABG results: ABG ABG pH 7.30 pH Units (7.32-7.45) L 10/06/17 13:42 ABG pCO2 47 mmHg (35-45) H 10/06/17 13:42 ABG pO2 152 mmHg (85-104) H 10/06/17 13:42 ABG O2 Saturation 99 % (95-98) H 10/06/17 13:42 PT/INR, D-dimer PT 14.6 Seconds (9.4-12.1) H 10/12/17 03:42 Consult Discharge Plan - Plan Referrals: Lokesh Cooper MD [Primary Care Provider] - 10/16/17 9:45 am Fernando Najera MD [Partnered Physician] - 11/17/17 2:30 pm
[2017-10-12] MEDS ORDERED: *HR* Warfarin 5 MG TABLET PO ONE (18:00)
[2017-10-12] MEDS: Gabapentin 100 MG CAPSULE PO SCH (21:04)
[2017-10-12] MEDS: Budesonide/Formoterol 160/4.5 MDI IH SCH (22:15)
[2017-10-13] MEDS: Ipratropium/Albuterol Neb 3 ML IH SCH ×4 (03:39→22:44)
[2017-10-13 06:16] LABS: Basophils % 0.2 %; Eosinophils # 0.2 K/mcL (0.0-0.6); Eosinophils % 3.1 %; Hematocrit 30.4 % (35.3-44.9); Hemoglobin 9.7 g/dL (11.5-15.4); Immature Granulocytes % 0.7 % (0-4); Lymphocytes # 0.6 K/mcL (0.6-4.6); Lymphocytes % 9.1 %; Mean Corpuscular HGB Conc 31.9 g/dL (31.6-35.5); Mean Corpuscular Hemoglobin 28.3 pg (28.0-33.3); Mean Corpuscular Volume 88.6 fL (83.0-100.0); Mean Platelet Volume 10.8 fL (9.4-12.4); Monocytes # 0.6 K/mcL (0.0-1.3); Monocytes % 9.8 %; Neutrophils # 4.7 K/mcL (1.6-8.9); Platelet Count 143 K/mcL (140-400); Red Blood Count 3.43 M/mcL (3.82-4.97); Red Cell Distribution Width 15.6 % (11.5-14.5); Segmented Neutrophils % 77.1 %
[2017-10-13 06:20] LABS: INR 2.4; Prothrombin Time 26.6 Seconds (9.4-12.1)
[2017-10-13 06:31] LABS: Calcium 8.7 mg/dL (8.6-10.3); Magnesium 1.8 mg/dL (1.6-2.6); Potassium 4.1 mEq/L (3.5-5.1)
[2017-10-13] MEDS: Furosemide 40 MG TABLET PO SCH (08:32)
[2017-10-13] MEDS: Aspirin Enteric Coated 81 MG Tablet PO SCH (08:33)
[2017-10-13] MEDS: Loratadine 10 MG TABLET PO SCH (08:33)
[2017-10-13] MEDS: Nystatin POWDER 30 GM BOTTLE TP SCH ×2 (10:31→20:52)
[2017-10-13] MEDS: Fluticasone Propionate Nasal 50 MCG/SPRAY BOTTLE NS SCH (10:31)
[2017-10-13] MEDS: Budesonide/Formoterol 160/4.5 MDI IH SCH ×2 (10:44→22:44)
--- NOTE | 2017-10-13 13:48 | Internal Med Progress Note ---
Date of Encounter: 10/13/17 Time of Encounter: 13:46 - Subjective Interval history: Interval history: A&O x3 in NAD. Complaining of sinus congestion and a nonproductive cough Physical exam: see below Assessment and Plan: Chronic atrial fibrillation with rapid ventricular response Rate controlled with Coreg Stroke prophylaxis (CHADS-Vasc score of 4) was initiate with Heparin drip and transitioned to Coumadin. INR is therapeutic. C Risk of intracranial bleeding d/w with the patient given her multiple falls in the past and recent ICH following fall. She understands and accepts this risk. Chronic Diastolic HF exacerbation Complicated by AFib with RVR Patient had echocardiogram done in December 2016 showed a normal EF 60-65%. Continue with oral Lasix 40 mg daily which is her home dose. Patient currently appears euvolemic. CKD (chronic kidney disease) stage 4, GFR 15-29 ml/min Monitor GFR. Avoid nephrotoxins. Renal function alost back to Legally blind Assistance with ADLs by nursing staff. DVT prophylaxis On Coumadin - Constitutional Vitals: Temp Pulse Resp BP Pulse Ox 97.8 F 78 16 123/68 98 10/13/17 11:39 10/13/17 11:39 10/13/17 11:39 10/13/17 11:39 10/13/17 11:39 General appearance: Present: cooperative, A&O X 3, pleasant, no acute distress, obese, answers questions appropriately - Head Head exam: Present: atraumatic, normocephalic - Eye Eye exam: Present: PERRL, conjuntiva pink, sclera anicteric Pupils: Present: PERRL - ENT ENT exam: Present: mucous membranes moist - Neck Neck exam general surgery: Present: supple. Absent: lymphadenopathy, thyromegaly - Respiratory Respiratory exam: Present: CTAB. Absent: respiratory distress, rhonchi, stridor , wheezes, tachypnea - Cardiovascular Cardiovascular exam: Present: RRR, +S1, +S2 - GI/Abdominal GI/Abdominal exam: Present: normal bowel sounds, soft, no peritoneal signs. Absent: distended, firm, rebound, rigid - Extremities Exam Extremities exam: Present: warm, radial pulses palpable and symmetrical. Absent : calf tenderness, cyanotic, pedal edema - Neurological Exam Neurological exam: Present: oriented X3, no focal deficits - Skin Skin exam: Present: dry, warm Internal Medicine: Result - Labs CBC & Chem 7: 10/13/17 05:26 10/13/17 05:26 Labs: Short CBC 10/13/17 Range/Units 05:26 WBC 6.1 (4.3-11.1) K/mcL Hgb 9.7 L (11.5-15.4) g/dL Hct 30.4 L (35.3-44.9) % Plt Count 143 (140-400) K/mcL Neutrophils # 4.7 (1.6-8.9) K/mcL BMP 10/13/17 05:26 Sodium 140 Potassium 4.1 Chloride 108 H Carbon Dioxide 25 BUN 45 H Creatinine 1.74 H Glucose 96 Calcium 8.7 - ABG Interpretation ABG results: ABG ABG pH 7.30 pH Units (7.32-7.45) L 10/06/17 13:42 ABG pCO2 47 mmHg (35-45) H 10/06/17 13:42 ABG pO2 152 mmHg (85-104) H 10/06/17 13:42 ABG O2 Saturation 99 % (95-98) H 10/06/17 13:42 PT/INR, D-dimer PT 26.6 Seconds (9.4-12.1) H D 10/13/17 05:26 Consult Discharge Plan - Plan Referrals: Lokesh Cooper MD [Primary Care Provider] - 10/16/17 9:45 am Fernando Najera MD [Partnered Physician] - 11/17/17 2:30 pm
[2017-10-13] MEDS: Acetaminophen 325 MG TABLET PO PRN (15:33)
[2017-10-13] MEDS: Benzonatate 100 MG CAPSULE PO PRN (15:33)
[2017-10-13] MEDS: Gabapentin 100 MG CAPSULE PO SCH (20:52)
[2017-10-14] MEDS: Ipratropium/Albuterol Neb 3 ML IH SCH ×4 (04:47→22:10)
[2017-10-14 06:26] LABS: INR 2.5; Prothrombin Time 27.8 Seconds (9.4-12.1)
[2017-10-14] MEDS: Aspirin Enteric Coated 81 MG Tablet PO SCH (09:02)
[2017-10-14] MEDS: Benzonatate 100 MG CAPSULE PO PRN ×2 (09:02→20:44)
[2017-10-14] MEDS: Fluticasone Propionate Nasal 50 MCG/SPRAY BOTTLE NS SCH (09:03)
[2017-10-14] MEDS: Loratadine 10 MG TABLET PO SCH (09:03)
[2017-10-14] MEDS: Nystatin POWDER 30 GM BOTTLE TP SCH ×2 (09:03→20:33)
[2017-10-14] MEDS: Furosemide 40 MG TABLET PO SCH (09:03)
[2017-10-14] MEDS: Acetaminophen 325 MG TABLET PO PRN ×2 (09:08→20:44)
[2017-10-14] MEDS: Budesonide/Formoterol 160/4.5 MDI IH SCH ×2 (10:31→22:10)
--- NOTE | 2017-10-14 15:54 | Internal Med Progress Note ---
Date of Encounter: 10/14/17 Time of Encounter: 15:53 - Subjective Interval history: Interval history: A&O x3 in NAD. Complaining of sinus congestion and a nonproductive cough Physical exam: see below Assessment and Plan: Chronic atrial fibrillation with rapid ventricular response Rate controlled with Coreg Stroke prophylaxis (CHADS-Vasc score of 4) was initiate with Heparin drip and transitioned to Coumadin. INR is therapeutic. C Risk of intracranial bleeding d/w with the patient given her multiple falls in the past and recent ICH following fall. She understands and accepts this risk. Chronic Diastolic HF exacerbation Complicated by AFib with RVR Patient had echocardiogram done in December 2016 showed a normal EF 60-65%. Continue with oral Lasix 40 mg daily which is her home dose. Patient currently appears euvolemic. CKD (chronic kidney disease) stage 4, GFR 15-29 ml/min Monitor GFR. Avoid nephrotoxins. Renal function alost back to Legally blind Assistance with ADLs by nursing staff. DVT prophylaxis On Coumadin General appearance: Present: cooperative, A&O X 3, pleasant, no acute distress, obese, answers questions appropriately - Head Head exam: Present: atraumatic, normocephalic - Eye Eye exam: Present: PERRL, conjuntiva pink, sclera anicteric Pupils: Present: PERRL - ENT ENT exam: Present: mucous membranes moist - Neck Neck exam general surgery: Present: supple. Absent: lymphadenopathy, thyromegaly - Respiratory Respiratory exam: Present: CTAB. Absent: respiratory distress, rhonchi, stridor , wheezes, tachypnea - Cardiovascular Cardiovascular exam: Present: RRR, +S1, +S2 - GI/Abdominal GI/Abdominal exam: Present: normal bowel sounds, soft, no peritoneal signs. Absent: distended, firm, rebound, rigid - Extremities Exam Extremities exam: Present: warm, radial pulses palpable and symmetrical. Absent : calf tenderness, cyanotic, pedal edema - Neurological Exam Neurological exam: Present: oriented X3, no focal deficits - Skin Skin exam: Present: dry, warm - Constitutional Vitals: Temp Pulse Resp BP Pulse Ox 98.5 F 96 18 129/66 92 10/14/17 15:39 10/14/17 15:39 10/14/17 15:39 10/14/17 15:39 10/14/17 15:39 General appearance: Present: cooperative, A&O X 3, pleasant, no acute distress, obese, answers questions appropriately Internal Medicine: Result - Labs CBC & Chem 7: 10/13/17 05:26 10/13/17 05:26 - ABG Interpretation ABG results: ABG ABG pH 7.30 pH Units (7.32-7.45) L 10/06/17 13:42 ABG pCO2 47 mmHg (35-45) H 10/06/17 13:42 ABG pO2 152 mmHg (85-104) H 10/06/17 13:42 ABG O2 Saturation 99 % (95-98) H 10/06/17 13:42 PT/INR, D-dimer PT 27.8 Seconds (9.4-12.1) H 10/14/17 06:10 Consult Discharge Plan - Plan Referrals: Lokesh Cooper MD [Primary Care Provider] - 10/16/17 9:45 am Fernando Najera MD [Partnered Physician] - 11/17/17 2:30 pm
[2017-10-14] MEDS ORDERED: *HR* Warfarin 2.5 MG TABLET PO ONE (18:00)
[2017-10-14] MEDS: Gabapentin 100 MG CAPSULE PO SCH (20:33)
[2017-10-15 04:10] LABS: INR 2.1; Prothrombin Time 22.5 Seconds (9.4-12.1)
[2017-10-15] MEDS: Ipratropium/Albuterol Neb 3 ML IH SCH ×4 (04:45→22:03)
--- NOTE | 2017-10-15 08:43 | Internal Med Progress Note ---
Date of Encounter: 10/16/17 Time of Encounter: 14:20 - Subjective Interval history: Interval history: 10/14/2017: A&O x3 in NAD. Complaining of sinus congestion and a nonproductive cough 10/15/2017: A&O x3 but in respiratory distress. She has mild labored breathing and is tachycardic (A-Fib with rate in 105-110 Range). She's also c/o chest pain. CXR: CM with no interval change ABG: CBC: BMP: BNP: 379 ECG:Tele: Sinus tach Trp: 0.04 Physical exam: see below Assessment and Plan: Acute respiratory distress: ECG, Troponin, CXR, ABG, CBC, BMP, and BNP ordered. PO Lasix decreased and IV Lasix started 40 mg BID mg Watch renal function with increased diaeresis Chronic atrial fibrillation with rapid ventricular response Rate controlled with Coreg Stroke prophylaxis (CHADS-Vasc score of 4) was initiate with Heparin drip and transitioned to Coumadin. INR is therapeutic. C Risk of intracranial bleeding d/w with the patient given her multiple falls in the past and recent ICH following fall. She understands and accepts this risk. Chronic Diastolic HF exacerbation Complicated by AFib with RVR Patient had echocardiogram done in December 2016 showed a normal EF 60-65%. Continue with oral Lasix 40 mg daily which is her home dose. Patient currently appears euvolemic. CKD (chronic kidney disease) stage 4, GFR 15-29 ml/min Monitor GFR. Avoid nephrotoxins. Renal function alost back to Legally blind Assistance with ADLs by nursing staff. DVT prophylaxis On Coumadin General appearance: Present: cooperative, A&O X 3, pleasant, no acute distress, obese, answers questions appropriately - Head Head exam: Present: atraumatic, normocephalic - Eye Eye exam: Present: PERRL, conjuntiva pink, sclera anicteric Pupils: Present: PERRL - ENT ENT exam: Present: mucous membranes moist - Neck Neck exam general surgery: Present: supple. Absent: lymphadenopathy, thyromegaly - Respiratory Respiratory exam: Present: CTAB. Absent: respiratory distress, rhonchi, stridor , wheezes, tachypnea - Cardiovascular Cardiovascular exam: Present: RRR, +S1, +S2 - GI/Abdominal GI/Abdominal exam: Present: normal bowel sounds, soft, no peritoneal signs. Absent: distended, firm, rebound, rigid - Extremities Exam Extremities exam: Present: warm, radial pulses palpable and symmetrical. Absent : calf tenderness, cyanotic, pedal edema - Neurological Exam Neurological exam: Present: oriented X3, no focal deficits - Skin Skin exam: Present: dry, warm - Constitutional Vitals: Temp Pulse Resp BP Pulse Ox 98.2 F 115 22 126/97 97 10/15/17 07:00 10/15/17 07:00 10/15/17 07:00 10/15/17 07:00 10/15/17 07:00 General appearance: Present: cooperative, A&O X 3, pleasant, no acute distress, obese, answers questions appropriately - Respiratory Respiratory exam: Present: decreased breath sounds, respiratory distress, tachypnea. Absent: accessory muscle use, stridor, wheezes Additional comments: Her lungs sound wet with decreased LS at both bases. Internal Medicine: Result - Labs CBC & Chem 7: 10/15/17 09:41 10/15/17 09:41 - ABG Interpretation ABG results: ABG ABG pH 7.30 pH Units (7.32-7.45) L 10/06/17 13:42 ABG pCO2 47 mmHg (35-45) H 10/06/17 13:42 ABG pO2 152 mmHg (85-104) H 10/06/17 13:42 ABG O2 Saturation 99 % (95-98) H 10/06/17 13:42 PT/INR, D-dimer PT 22.5 Seconds (9.4-12.1) H 10/15/17 03:40 - Impressions Impressions Chest X-Ray 10/14/17 15:51 IMPRESSION: Small bilateral pleural effusions, unchanged. Pleural thickening along the left chest wall laterally, similar to previous exam. Findings may represent chronic changes. Streaky perihilar and bibasilar opacities which are similar in distribution on previous exam but slightly more prominent. Findings may represent edema or multifocal pneumonia. D/ / Ana Alberto MD / Ana Alberto MD Interpreting Provider: Ana Alberto MD Consult Discharge Plan - Plan Referrals: Lokesh Cooper MD [Primary Care Provider] - 10/22/17 1:15 pm Fernando Najera MD [Partnered Physician] - 11/17/17 2:30 pm
[2017-10-15 09:15] LABS: ABG Base Excess -1 mEq/L (-2 to 3); ABG HCO3 26 mEq/L (21-27); ABG Oxygen Saturation 98 % (95-98); ABG PCO2 49 mmHg (35-45); ABG PH 7.33 pH Units (7.32-7.45); ABG PO2 112 mmHg (85-104); ABG TCO2 27 mEq/L (20-26)
[2017-10-15] MEDS: Nystatin POWDER 30 GM BOTTLE TP SCH ×2 (09:26→22:04)
[2017-10-15] MEDS: Furosemide 40 MG/4 ML VIAL IVP SCH ×2 (09:26→17:27)
[2017-10-15 09:51] LABS: Basophils % 0.3 %; Eosinophils # 0.2 K/mcL (0.0-0.6); Eosinophils % 3.6 %; Hematocrit 35.6 % (35.3-44.9); Hemoglobin 11.2 g/dL (11.5-15.4); Immature Granulocytes % 0.4 % (0-4); Lymphocytes # 0.5 K/mcL (0.6-4.6); Lymphocytes % 7.3 %; Mean Corpuscular HGB Conc 31.5 g/dL (31.6-35.5); Mean Corpuscular Hemoglobin 28.3 pg (28.0-33.3); Mean Corpuscular Volume 89.9 fL (83.0-100.0); Mean Platelet Volume 10.2 fL (9.4-12.4); Monocytes # 0.7 K/mcL (0.0-1.3); Monocytes % 10.8 %; Neutrophils # 5.2 K/mcL (1.6-8.9); Platelet Count 128 K/mcL (140-400); Red Blood Count 3.96 M/mcL (3.82-4.97); Red Cell Distribution Width 15.2 % (11.5-14.5); Segmented Neutrophils % 77.6 %
[2017-10-15] MEDS: Loratadine 10 MG TABLET PO SCH (10:06)
[2017-10-15] MEDS: Acetaminophen 325 MG TABLET PO PRN ×2 (10:06→17:30)
[2017-10-15] MEDS: Aspirin Enteric Coated 81 MG Tablet PO SCH (10:06)
[2017-10-15] MEDS: Benzonatate 100 MG CAPSULE PO PRN (10:06)
[2017-10-15] MEDS: Fluticasone Propionate Nasal 50 MCG/SPRAY BOTTLE NS SCH (10:07)
[2017-10-15] MEDS: Budesonide/Formoterol 160/4.5 MDI IH SCH ×2 (10:21→22:04)
[2017-10-15 10:27] LABS: Calcium 9.1 mg/dL (8.6-10.3)
[2017-10-15] MEDS: *HR* Warfarin 2.5 MG TABLET PO SCH ×2 (17:27→17:31)
[2017-10-15] MEDS: Gabapentin 100 MG CAPSULE PO SCH (22:03)
[2017-10-16] MEDS ORDERED: *HR* Metoprolol 5 MG/5 ML VIAL IVP ONE ×2 (01:10→04:44)
[2017-10-16] MEDS: Ipratropium/Albuterol Neb 3 ML IH SCH ×4 (04:15→21:49)
[2017-10-16 04:30] LABS: INR 2.3
[2017-10-16 05:23] LABS: VBG HCO3 29 mEq/L (21-27); VBG PCO2 51 mmHg (41-51); VBG PH 7.36 pH Units (7.32-7.42); VBG PO2 57 mmHg (25-50)
[2017-10-16] MEDS: Loratadine 10 MG TABLET PO SCH (09:50)
[2017-10-16] MEDS: Acetaminophen 325 MG TABLET PO PRN ×2 (09:53→21:10)
[2017-10-16] MEDS: Benzonatate 100 MG CAPSULE PO PRN ×2 (09:55→21:10)
[2017-10-16] MEDS: Aspirin Enteric Coated 81 MG Tablet PO SCH (09:57)
[2017-10-16] MEDS: Furosemide 40 MG/4 ML VIAL IVP SCH ×2 (09:58→17:44)
[2017-10-16] MEDS: Fluticasone Propionate Nasal 50 MCG/SPRAY BOTTLE NS SCH (10:18)
[2017-10-16] MEDS: Budesonide/Formoterol 160/4.5 MDI IH SCH ×2 (10:55→21:49)
[2017-10-16] MEDS: *HR* Warfarin 2.5 MG TABLET PO SCH (17:44)
[2017-10-16] MEDS: Nystatin POWDER 30 GM BOTTLE TP SCH ×2 (17:53→21:12)
[2017-10-16] MEDS: Gabapentin 100 MG CAPSULE PO SCH (21:07)
--- NOTE | 2017-10-16 22:22 | Internal Med Progress Note ---
Date of Encounter: 10/16/17 Time of Encounter: 15:20 - Subjective Interval history: Interval history: 10/14/2017: A&O x3 in NAD. Complaining of sinus congestion and a nonproductive cough 10/15/2017: A&O x3 but in respiratory distress. She has mild labored breathing and is tachycardic (A-Fib with rate in 105-110 Range). She's also c/o chest pain. 10/16/2017: A&O x3 in NAD and breathing much more comfortably. Physical exam: see below Assessment and Plan: Acute respiratory distress: ECG, Troponin, CXR, ABG, CBC, BMP, and BNP ordered. PO Lasix d/c'd and IV Lasix started 40 mg BID mg Watch renal function with increased diaeresis. Her breathing improved with increased diuresis. Chronic atrial fibrillation with rapid ventricular response Rate controlled with Coreg Stroke prophylaxis (CHADS-Vasc score of 4) was initiate with Heparin drip and transitioned to Coumadin. INR is therapeutic. C Risk of intracranial bleeding d/w with the patient given her multiple falls in the past and recent ICH following fall. She understands and accepts this risk. Chronic Diastolic HF exacerbation Complicated by AFib with RVR Patient had echocardiogram done in December 2016 showed a normal EF 60-65%. Lasix had been held but was restarte increased temorarily yesterday. She has bilateral LE pitting edema CKD (chronic kidney disease) stage 4, GFR 15-29 ml/min Monitor GFR. Avoid nephrotoxins. Renal function almost back to BL Legally blind Assistance with ADLs by family once home DVT prophylaxis On Coumadin Physical Exam: General appearance: Present: cooperative, A&O X 3, pleasant, no acute distress, obese, answers questions appropriately - Head Head exam: Present: atraumatic, normocephalic - Eye Eye exam: Present: PERRL, conjuntiva pink, sclera anicteric Pupils: Present: PERRL - ENT ENT exam: Present: mucous membranes moist - Neck Neck exam general surgery: Present: supple. Absent: lymphadenopathy, thyromegaly - Respiratory Respiratory exam: Present: CTAB. Absent: respiratory distress, rhonchi, stridor , wheezes, tachypnea - Cardiovascular Cardiovascular exam: Present: RRR, +S1, +S2 - GI/Abdominal GI/Abdominal exam: Present: normal bowel sounds, soft, no peritoneal signs. Absent: distended, firm, rebound, rigid - Extremities Exam Extremities exam: Present: warm, radial pulses palpable and symmetrical. Absent : calf tenderness, cyanotic, pedal edema - Neurological Exam Neurological exam: Present: oriented X3, no focal deficits - Skin Skin exam: Present: dry, warm Labs: - Constitutional Vitals: Temp Pulse Resp BP Pulse Ox 97.8 F 119 18 127/87 97 10/16/17 18:00 10/16/17 18:00 10/16/17 18:00 10/16/17 18:00 10/16/17 18:00 General appearance: Present: cooperative, A&O X 3, pleasant, no acute distress, obese, answers questions appropriately Internal Medicine: Result - Labs CBC & Chem 7: 10/15/17 09:41 10/15/17 09:41 - ABG Interpretation ABG results: ABG ABG pH 7.33 pH Units (7.32-7.45) 10/15/17 09:03 ABG pCO2 49 mmHg (35-45) H 10/15/17 09:03 ABG pO2 112 mmHg (85-104) H 10/15/17 09:03 ABG O2 Saturation 98 % (95-98) 10/15/17 09:03 PT/INR, D-dimer PT 25.0 Seconds (9.4-12.1) H 10/16/17 03:37 Consult Discharge Plan - Plan Referrals: Lokesh Cooper MD [Primary Care Provider] - 10/22/17 1:15 pm Fernando Najera MD [Partnered Physician] - 11/17/17 2:30 pm
[2017-10-17] MEDS: Ipratropium/Albuterol Neb 3 ML IH SCH ×4 (03:30→22:08)
[2017-10-17 06:54] LABS: INR 2.4
[2017-10-17 09:04] LABS: Basophils % 0.2 %; Eosinophils # 0.2 K/mcL (0.0-0.6); Eosinophils % 2.7 %; Hemoglobin 10.7 g/dL (11.5-15.4); Immature Granulocytes % 0.3 % (0-4); Lymphocytes # 0.7 K/mcL (0.6-4.6); Lymphocytes % 11.4 %; Mean Corpuscular HGB Conc 31.5 g/dL (31.6-35.5); Mean Corpuscular Hemoglobin 27.8 pg (28.0-33.3); Mean Corpuscular Volume 88.3 fL (83.0-100.0); Mean Platelet Volume 10.6 fL (9.4-12.4); Monocytes # 0.5 K/mcL (0.0-1.3); Monocytes % 7.7 %; Neutrophils # 4.8 K/mcL (1.6-8.9); Platelet Count 123 K/mcL (140-400); Red Blood Count 3.85 M/mcL (3.82-4.97); Red Cell Distribution Width 14.9 % (11.5-14.5); Segmented Neutrophils % 77.7 %
[2017-10-17] MEDS: Furosemide 40 MG/4 ML VIAL IVP SCH (09:23)
[2017-10-17] MEDS: Aspirin Enteric Coated 81 MG Tablet PO SCH (09:23)
[2017-10-17] MEDS: Loratadine 10 MG TABLET PO SCH (09:23)
[2017-10-17] MEDS: Nystatin POWDER 30 GM BOTTLE TP SCH ×2 (09:24→19:47)
[2017-10-17] MEDS: Fluticasone Propionate Nasal 50 MCG/SPRAY BOTTLE NS SCH (09:24)
[2017-10-17 09:28] LABS: Calcium 8.7 mg/dL (8.6-10.3); Potassium 3.8 mEq/L (3.5-5.1)
[2017-10-17] MEDS: Budesonide/Formoterol 160/4.5 MDI IH SCH ×2 (10:41→22:08)
[2017-10-17] MEDS: *HR* Warfarin 2.5 MG TABLET PO SCH (17:42)
--- NOTE | 2017-10-17 18:28 | Internal Med Progress Note ---
Date of Encounter: 10/18/17 Time of Encounter: 18:28 - Subjective Interval history: Interval history: 10/14/2017: A&O x3 in NAD. Complaining of sinus congestion and a nonproductive cough 10/15/2017: A&O x3 but in respiratory distress. She has mild labored breathing and is tachycardic (A-Fib with rate in 105-110 Range). She's also c/o chest pain. 10/16/2017: A&O x3 in NAD and breathing much more comfortably. 10/17/2017: A&O x3 in NAD but very wheezy. RN concerned pt having A-Flutter with rates in loww 100s. Completely asx and with known h/o of A-fib with tx INR on warfarin. Assessment and Plan: Acute respiratory distress: ECG, Troponin, CXR, ABG, CBC, BMP, and BNP ordered. PO Lasix d/c'd and IV Lasix started 40 mg BID mg Watch renal function with increased diaeresis. Her breathing improved with increased diuresis. Wheezing today so prednisone restarted Continue Nebs PRN Chronic atrial fibrillation with rapid ventricular response Rate controlled with Coreg Stroke prophylaxis (CHADS-Vasc score of 4) was initiate with Heparin drip and transitioned to Coumadin. INR is therapeutic. C Risk of intracranial bleeding d/w with the patient given her multiple falls in the past and recent ICH following fall. She understands and accepts this risk. Chronic Diastolic HF exacerbation Complicated by AFib with RVR Patient had echocardiogram done in December 2016 showed a normal EF 60-65%. Lasix had been held but was restarted increased temporarily yesterday. Closely watch renal function She has bilateral LE pitting edema CKD (chronic kidney disease) stage 4, GFR 15-29 ml/min Monitor GFR. Avoid nephrotoxins. Renal function almost back to BL COPD (chronic obstructive pulmonary disease) Prednisone restarted due to scattered wheezing. Continue PRN DuoNebs Legally blind Assistance with ADLs by family once home DVT prophylaxis On Coumadin Physical Exam: General appearance: Present: cooperative, A&O X 3, pleasant, no acute distress, obese, answers questions appropriately - Head Head exam: Present: atraumatic, normocephalic - Eye Eye exam: Present: PERRL, conjuntiva pink, sclera anicteric Pupils: Present: PERRL - ENT ENT exam: Present: mucous membranes moist - Neck Neck exam general surgery: Present: supple. Absent: lymphadenopathy, thyromegaly - Respiratory Respiratory exam: Present: CTAB except some scattered wheezing. Absent: respiratory distress, rhonchi, stridor, tachypnea - Cardiovascular Cardiovascular exam: Present: RRR, +S1, +S2 - GI/Abdominal GI/Abdominal exam: Present: normal bowel sounds, soft, no peritoneal signs. Absent: distended, firm, rebound, rigid - Extremities Exam Extremities exam: Present: warm, radial pulses palpable and symmetrical. Absent : calf tenderness, cyanotic, pedal edema - Neurological Exam Neurological exam: Present: oriented X3, no focal deficits - Skin Skin exam: Present: dry, warm Labs: - Constitutional Vitals: Temp Pulse Resp BP Pulse Ox 97.2 F L 118 16 110/70 100 10/17/17 16:09 10/17/17 16:09 10/17/17 16:09 10/17/17 16:09 10/17/17 16:09 General appearance: Present: cooperative, A&O X 3, pleasant, no acute distress, obese, answers questions appropriately Internal Medicine: Result - Labs CBC & Chem 7: 10/17/17 08:20 10/17/17 08:20 Labs: Short CBC 10/17/17 Range/Units 08:20 WBC 6.2 (4.3-11.1) K/mcL Hgb 10.7 L (11.5-15.4) g/dL Hct 34.0 L (35.3-44.9) % Plt Count 123 L (140-400) K/mcL Neutrophils # 4.8 (1.6-8.9) K/mcL BMP 10/17/17 08:20 Sodium 138 Potassium 3.8 Chloride 101 Carbon Dioxide 29 BUN 44 H Creatinine 1.82 H Glucose 99 Calcium 8.7 - ABG Interpretation ABG results: ABG ABG pH 7.33 pH Units (7.32-7.45) 10/15/17 09:03 ABG pCO2 49 mmHg (35-45) H 10/15/17 09:03 ABG pO2 112 mmHg (85-104) H 10/15/17 09:03 ABG O2 Saturation 98 % (95-98) 10/15/17 09:03 PT/INR, D-dimer PT 26.0 Seconds (9.4-12.1) H 10/17/17 06:10 Consult Discharge Plan - Plan Referrals: Lokesh Cooper MD [Primary Care Provider] - 10/22/17 1:15 pm Fernando Najera MD [Partnered Physician] - 11/17/17 2:30 pm
[2017-10-17] MEDS: Gabapentin 100 MG CAPSULE PO SCH (19:44)
[2017-10-17] MEDS: Benzonatate 100 MG CAPSULE PO PRN (19:46)
[2017-10-17] MEDS: Acetaminophen 325 MG TABLET PO PRN (19:46)
[2017-10-17] MEDS: *HR* Metoprolol 5 MG/5 ML VIAL IVP PRN (20:32)
[2017-10-18] MEDS: *HR* Metoprolol 5 MG/5 ML VIAL IVP PRN (02:51)
[2017-10-18] MEDS: Ipratropium/Albuterol Neb 3 ML IH SCH ×4 (04:08→22:42)
[2017-10-18 04:26] LABS: INR 2.8; Prothrombin Time 30.6 Seconds (9.4-12.1)
[2017-10-18 07:45] LABS: Basophils % 0.2 %; Eosinophils # 0.1 K/mcL (0.0-0.6); Eosinophils % 2.3 %; Hematocrit 32.8 % (35.3-44.9); Hemoglobin 10.4 g/dL (11.5-15.4); Immature Granulocytes % 0.5 % (0-4); Lymphocytes # 0.7 K/mcL (0.6-4.6); Lymphocytes % 11.8 %; Mean Corpuscular HGB Conc 31.7 g/dL (31.6-35.5); Mean Corpuscular Hemoglobin 28.1 pg (28.0-33.3); Mean Corpuscular Volume 88.6 fL (83.0-100.0); Mean Platelet Volume 10.3 fL (9.4-12.4); Monocytes # 0.4 K/mcL (0.0-1.3); Monocytes % 6.4 %; Neutrophils # 4.4 K/mcL (1.6-8.9); Platelet Count 114 K/mcL (140-400); Red Cell Distribution Width 14.7 % (11.5-14.5); Segmented Neutrophils % 78.8 %
[2017-10-18 08:13] LABS: Calcium 8.6 mg/dL (8.6-10.3); Potassium 3.7 mEq/L (3.5-5.1)
[2017-10-18] MEDS: Loratadine 10 MG TABLET PO SCH (08:47)
[2017-10-18] MEDS: predniSONE 20 MG TABLET PO SCH (08:47)
[2017-10-18] MEDS: Aspirin Enteric Coated 81 MG Tablet PO SCH (08:47)
[2017-10-18] MEDS: Furosemide 40 MG/4 ML VIAL IVP SCH (08:48)
[2017-10-18] MEDS: Fluticasone Propionate Nasal 50 MCG/SPRAY BOTTLE NS SCH (08:49)
[2017-10-18] MEDS: Nystatin POWDER 30 GM BOTTLE TP SCH (08:49)
[2017-10-18] MEDS: Benzonatate 100 MG CAPSULE PO PRN ×2 (08:51→19:55)
[2017-10-18] MEDS: Acetaminophen 325 MG TABLET PO PRN ×2 (08:51→19:55)
[2017-10-18] MEDS: Ondansetron 4 MG/2 ML VIAL IVP PRN (08:54)
[2017-10-18] MEDS: Budesonide/Formoterol 160/4.5 MDI IH SCH ×2 (09:36→22:45)
[2017-10-18] MEDS: *HR* Warfarin 2.5 MG TABLET PO SCH (16:50)
[2017-10-18] MEDS: Gabapentin 100 MG CAPSULE PO SCH (19:55)
--- NOTE | 2017-10-18 22:22 | Internal Med Progress Note ---
Date of Encounter: 10/18/17 Time of Encounter: 13:15 - Subjective Interval history: Interval history: 10/14/2017: A&O x3 in NAD. Complaining of sinus congestion and a nonproductive cough 10/15/2017: A&O x3 but in respiratory distress. She has mild labored breathing and is tachycardic (A-Fib with rate in 105-110 Range). She's also c/o chest pain. 10/16/2017: A&O x3 in NAD and breathing much more comfortably. 10/17/2017: A&O x3 in NAD but very wheezy. RN concerned pt having A-Flutter with rates in loww 100s. Completely asx and with known h/o of A-fib with tx INR on warfarin. 10/18/2017: Breathing much more comforta afterstarting low dose of Prenisone yeserday Assessment and Plan: Acute respiratory distress: Breathing much improved today Continue lasix but change to PO Watch renal function with increased diaeresis. Her breathing improved with increased diuresis. Prednisone restarted yester. Continwith rapid taper Continue Nebs PRN Chronic atrial fibrillation with rapid ventricular response Rate controlled with Coreg Stroke prophylaxis (CHADS-Vasc score of 4) was initiate with Heparin drip and transitioned to Coumadin. INR is therapeutic. Risk of intracranial bleeding d/w with the patient given her multiple falls in the past and recent ICH following fall. She understands and accepts this risk. Chronic Diastolic HF exacerbation Complicated by AFib with RVR Patient had echocardiogram done in December 2016 showed a normal EF 60-65%. Lasix had been held but was restarted increased temporarily yesterday. Closely watch renal function She has bilateral LE pitting edema CKD (chronic kidney disease) stage 4, GFR 15-29 ml/min Monitor GFR. Avoid nephrotoxins. Renal function almost back to BL COPD (chronic obstructive pulmonary disease) Prednisone restarted due to scattered wheezing. Continue PRN DuoNebs Legally blind Assistance with ADLs by family once home DVT prophylaxis On Coumadin Dispo: Tomorrow Physical Exam: General appearance: Present: cooperative, A&O X 3, pleasant, no acute distress, obese, answers questions appropriately - Head Head exam: Present: atraumatic, normocephalic - Eye Eye exam: Present: PERRL, conjuntiva pink, sclera anicteric Pupils: Present: PERRL - ENT ENT exam: Present: mucous membranes moist - Neck Neck exam general surgery: Present: supple. Absent: lymphadenopathy, thyromegaly - Respiratory Respiratory exam: Present: CTAB . Absent: respiratory distress, rhonchi, stridor, tachypnea - Cardiovascular Cardiovascular exam: Present: RRR, +S1, +S2 - GI/Abdominal GI/Abdominal exam: Present: normal bowel sounds, soft, no peritoneal signs. Absent: distended, firm, rebound, rigid - Extremities Exam Extremities exam: Present: warm, radial pulses palpable and symmetrical. Absent : calf tenderness, cyanotic, pedal edema - Neurological Exam Neurological exam: Present: oriented X3, no focal deficits - Skin Skin exam: Present: dry, warm Labs: - Constitutional Vitals: Temp Pulse Resp BP Pulse Ox 97.4 F L 114 18 120/86 98 10/18/17 19:48 10/18/17 19:48 10/18/17 19:48 10/18/17 19:48 10/18/17 19:48 General appearance: Present: cooperative, A&O X 3, pleasant, no acute distress, obese, answers questions appropriately Internal Medicine: Result - Labs CBC & Chem 7: 10/18/17 07:36 10/18/17 07:36 Labs: Short CBC 10/18/17 Range/Units 07:36 WBC 5.6 (4.3-11.1) K/mcL Hgb 10.4 L (11.5-15.4) g/dL Hct 32.8 L (35.3-44.9) % Plt Count 114 L (140-400) K/mcL Neutrophils # 4.4 (1.6-8.9) K/mcL BMP 10/18/17 07:36 Sodium 138 Potassium 3.7 Chloride 102 Carbon Dioxide 27 BUN 48 H Creatinine 1.92 H Glucose 89 Calcium 8.6 - ABG Interpretation ABG results: ABG ABG pH 7.33 pH Units (7.32-7.45) 10/15/17 09:03 ABG pCO2 49 mmHg (35-45) H 10/15/17 09:03 ABG pO2 112 mmHg (85-104) H 10/15/17 09:03 ABG O2 Saturation 98 % (95-98) 10/15/17 09:03 PT/INR, D-dimer PT 30.6 Seconds (9.4-12.1) H 10/18/17 03:54 Consult Discharge Plan - Plan Referrals: Lokesh Cooper MD [Primary Care Provider] - 10/22/17 1:15 pm Fernando Najera MD [Partnered Physician] - 11/17/17 2:30 pm
[2017-10-19] MEDS: Ipratropium/Albuterol Neb 3 ML IH SCH ×4 (04:51→22:54)
[2017-10-19 07:03] LABS: INR 3.8; Prothrombin Time 42.4 Seconds (9.4-12.1)
[2017-10-19 07:20] LABS: Basophils % 0.2 %; Eosinophils % 0.5 %; Hemoglobin 10.2 g/dL (11.5-15.4); Immature Granulocytes % 0.5 % (0-4); Lymphocytes # 0.6 K/mcL (0.6-4.6); Lymphocytes % 8.5 %; Mean Corpuscular HGB Conc 31.9 g/dL (31.6-35.5); Mean Corpuscular Hemoglobin 27.7 pg (28.0-33.3); Mean Platelet Volume 10.8 fL (9.4-12.4); Monocytes # 0.5 K/mcL (0.0-1.3); Monocytes % 6.8 %; Neutrophils # 5.5 K/mcL (1.6-8.9); Platelet Count 127 K/mcL (140-400); Red Blood Count 3.68 M/mcL (3.82-4.97); Red Cell Distribution Width 14.3 % (11.5-14.5); Segmented Neutrophils % 83.5 %
[2017-10-19 09:40] LABS: Calcium 8.6 mg/dL (8.6-10.3)
[2017-10-19] MEDS: Budesonide/Formoterol 160/4.5 MDI IH SCH ×2 (09:43→22:54)
[2017-10-19] MEDS: Nystatin POWDER 30 GM BOTTLE TP SCH ×2 (09:43→20:54)
[2017-10-19] MEDS: Aspirin Enteric Coated 81 MG Tablet PO SCH (09:43)
[2017-10-19] MEDS: Loratadine 10 MG TABLET PO SCH (09:43)
[2017-10-19] MEDS: Furosemide 40 MG/4 ML VIAL IVP SCH (09:44)
[2017-10-19] MEDS: predniSONE 20 MG TABLET PO SCH (09:44)
[2017-10-19] MEDS: Fluticasone Propionate Nasal 50 MCG/SPRAY BOTTLE NS SCH (09:44)
--- NOTE | 2017-10-19 17:43 | Internal Med Progress Note ---
Date of Encounter: 10/19/17 Time of Encounter: 17:43 - Subjective Interval history: Interval history: 10/14/2017: A&O x3 in NAD. Complaining of sinus congestion and a nonproductive cough 10/15/2017: A&O x3 but in respiratory distress. She has mild labored breathing and is tachycardic (A-Fib with rate in 105-110 Range). She's also c/o chest pain. 10/16/2017: A&O x3 in NAD and breathing much more comfortably. 10/17/2017: A&O x3 in NAD but very wheezy. RN concerned pt having A-Flutter with rates in loww 100s. Completely asx and with known h/o of A-fib with tx INR on warfarin. 10/18/2017: Breathing much more comforta afterstarting low dose of Prenisone yeserday 10/19/2017: Respiratory status back to baseline but INR 3.8. No bleeding but with hx of recent ICH, falls and blindness she needs to monirored as INR drifts down to 2-3 range. Assessment and Plan: Acute respiratory distress: Breathing much improved today Continue lasix but change to PO Watch renal function with increased diaeresis. Her breathing improved with increased diuresis. Prednisone restarted yester. Continwith rapid taper Continue Nebs PRN Chronic atrial fibrillation with rapid ventricular response Rate controlled with Coreg Stroke prophylaxis (CHADS-Vasc score of 4) was initiate with Heparin drip and transitioned to Coumadin. INR is therapeutic. Risk of intracranial bleeding d/w with the patient given her multiple falls in the past and recent ICH following fall. She understands and accepts this risk. Chronic Diastolic HF exacerbation Complicated by AFib with RVR Patient had echocardiogram done in December 2016 showed a normal EF 60-65%. Lasix had been held but was restarted increased temporarily yesterday. Closely watch renal function She has bilateral LE pitting edema CKD (chronic kidney disease) stage 4, GFR 15-29 ml/min Monitor GFR. Avoid nephrotoxins. Renal function almost back to BL COPD (chronic obstructive pulmonary disease) Prednisone restarted due to scattered wheezing. Continue PRN DuoNebs Legally blind Assistance with ADLs by family once home DVT prophylaxis On Coumadin Dispo: Tomorrow Physical Exam: General appearance: Present: cooperative, A&O X 3, pleasant, no acute distress, obese, answers questions appropriately - Head Head exam: Present: atraumatic, normocephalic - Eye Eye exam: Present: PERRL, conjuntiva pink, sclera anicteric Pupils: Present: PERRL - ENT ENT exam: Present: mucous membranes moist - Neck Neck exam general surgery: Present: supple. Absent: lymphadenopathy, thyromegaly - Respiratory Respiratory exam: Present: CTAB . Absent: respiratory distress, rhonchi, stridor, tachypnea - Cardiovascular Cardiovascular exam: Present: RRR, +S1, +S2 - GI/Abdominal GI/Abdominal exam: Present: normal bowel sounds, soft, no peritoneal signs. Absent: distended, firm, rebound, rigid - Extremities Exam Extremities exam: Present: warm, radial pulses palpable and symmetrical. Absent : calf tenderness, cyanotic, pedal edema - Neurological Exam Neurological exam: Present: oriented X3, no focal deficits - Skin Skin exam: Present: dry, warm Labs: - Constitutional Vitals: Temp Pulse Resp BP Pulse Ox 97.9 F 113 16 129/92 91 10/19/17 10:51 10/19/17 16:29 10/19/17 16:29 10/19/17 16:29 10/19/17 16:29 General appearance: Present: cooperative, A&O X 3, pleasant, no acute distress, obese, answers questions appropriately Internal Medicine: Result - Labs CBC & Chem 7: 10/19/17 07:07 10/19/17 07:07 Labs: Short CBC 10/19/17 Range/Units 07:07 WBC 6.6 (4.3-11.1) K/mcL Hgb 10.2 L (11.5-15.4) g/dL Hct 32.0 L (35.3-44.9) % Plt Count 127 L (140-400) K/mcL Neutrophils # 5.5 (1.6-8.9) K/mcL BMP 10/19/17 07:07 Sodium 135 L Potassium 4.0 Chloride 101 Carbon Dioxide 25 BUN 55 H Creatinine 1.81 H Glucose 118 H Calcium 8.6 - ABG Interpretation ABG results: ABG ABG pH 7.33 pH Units (7.32-7.45) 10/15/17 09:03 ABG pCO2 49 mmHg (35-45) H 10/15/17 09:03 ABG pO2 112 mmHg (85-104) H 10/15/17 09:03 ABG O2 Saturation 98 % (95-98) 10/15/17 09:03 PT/INR, D-dimer PT 42.4 Seconds (9.4-12.1) H 10/19/17 05:42 Consult Discharge Plan - Plan Referrals: Lokesh Cooper MD [Primary Care Provider] - 10/22/17 1:15 pm Fernando Najera MD [Partnered Physician] - 11/17/17 2:30 pm
[2017-10-19] MEDS: Acetaminophen 325 MG TABLET PO PRN (20:52)
[2017-10-19] MEDS: Benzonatate 100 MG CAPSULE PO PRN (20:52)
[2017-10-19] MEDS: Gabapentin 100 MG CAPSULE PO SCH (20:52)
[2017-10-20] MEDS: Ipratropium/Albuterol Neb 3 ML IH SCH ×4 (03:33→21:34)
[2017-10-20 05:00] LABS: Basophils % 0.1 %; Eosinophils % 0.1 %; Hematocrit 30.5 % (35.3-44.9); Hemoglobin 9.8 g/dL (11.5-15.4); Immature Granulocytes % 0.6 % (0-4); Lymphocytes # 0.6 K/mcL (0.6-4.6); Lymphocytes % 7.1 %; Mean Corpuscular HGB Conc 32.1 g/dL (31.6-35.5); Mean Corpuscular Hemoglobin 27.9 pg (28.0-33.3); Mean Corpuscular Volume 86.9 fL (83.0-100.0); Mean Platelet Volume 11.2 fL (9.4-12.4); Monocytes # 0.5 K/mcL (0.0-1.3); Platelet Count 134 K/mcL (140-400); Red Blood Count 3.51 M/mcL (3.82-4.97); Red Cell Distribution Width 14.3 % (11.5-14.5); Segmented Neutrophils % 86.1 %
[2017-10-20 05:14] LABS: INR 4.8; Prothrombin Time 53.4 Seconds (9.4-12.1)
[2017-10-20 05:31] LABS: Calcium 8.6 mg/dL (8.6-10.3); Potassium 4.4 mEq/L (3.5-5.1)
[2017-10-20] MEDS: Furosemide 40 MG/4 ML VIAL IVP SCH (09:09)
[2017-10-20] MEDS: predniSONE 20 MG TABLET PO SCH (09:10)
[2017-10-20] MEDS: Loratadine 10 MG TABLET PO SCH (09:10)
[2017-10-20] MEDS: Aspirin Enteric Coated 81 MG Tablet PO SCH (09:11)
[2017-10-20] MEDS: Acetaminophen 325 MG TABLET PO PRN ×2 (09:14→21:24)
[2017-10-20] MEDS: Benzonatate 100 MG CAPSULE PO PRN ×2 (09:14→21:24)
[2017-10-20] MEDS: Fluticasone Propionate Nasal 50 MCG/SPRAY BOTTLE NS SCH (09:15)
--- NOTE | 2017-10-20 09:42 | Internal Med Progress Note ---
<Garrick Becker - Last Filed: 10/20/17 09:39> Date of Encounter: 10/20/17 Time of Encounter: 09:39 - Assessment and plan (1) Acute respiratory distress Current Visit: Yes Status: Acute Assessment and plan: Patient's breathing is close to baseline. Patient is currently stable. Patient remains fluid overloaded - IV lasix changed to PO 40 mg BID; will need new lasix Rx on d/c - closely monitor renal function; strict i/o - continue 40 mg PO prednisone, will need taper on d/c - continue breathing treatments - will be D/C to nephew most likely tomorrow, if INR is in goal. High risk right now. (2) Chronic atrial fibrillation with rapid ventricular response Current Visit: Yes Status: Acute Assessment and plan: was in afib, currently not. CHADS-Vasc score 4 - high risk for embolic stroke. - Continue with Coreg for rate control. goal HR <100 - anticoagulation elevated; see above (3) Elevated INR Current Visit: Yes Status: Acute Assessment and plan: INR 4.8 today. - hold coumadin. - goal INR is 2-3. (4) CKD (chronic kidney disease) stage 4, GFR 15-29 ml/min Current Visit: Yes Status: Chronic Assessment and plan: Monitor GFR. Avoid nephrotoxins. Creatinine is 1.65 today, close to her baseline. (5) COPD (chronic obstructive pulmonary disease) Current Visit: Yes Status: Chronic Assessment and plan: History of COPD not on acute exacerbation, she is not on home O2. No wheezing. Continue inhaled Xopenex. Qualifiers: COPD type: unspecified COPD Qualified Code(s): J44.9 - Chronic obstructive pulmonary disease, unspecified (6) Legally blind Current Visit: Yes Status: Chronic Assessment and plan: Assistance with ADLs by nursing staff. (7) Obesity (BMI 30-39.9) Current Visit: No Status: Chronic Assessment and plan: BMI 33.6, recommended lifestyle modification. To be managed outpatient (8) DVT prophylaxis Current Visit: Yes Status: Acute Assessment and plan: On Coumadin (9) CHF exacerbation Current Visit: Yes Status: Acute Assessment and plan: Complicated by AFib with RVR. echo 01/05 - LVEF 60-65%. continues to have bilateral edema - see above Qualifiers: Congestive heart failure type: diastolic Qualified Code(s): I50.33 - Acute on chronic diastolic (congestive) heart failure - Subjective Interval history: Ms Barber is 72 yo F on day 15 admission for Acute Respiratory Distress. Patient reports that her breathing is close to back to baseline but continues to have SOB on exertion. She reports that she continues to have swelling in her legs. - Constitutional Vitals: Temp Pulse Resp BP Pulse Ox 97.6 F 116 16 123/89 99 10/20/17 05:54 10/20/17 05:54 10/20/17 05:54 10/20/17 05:54 10/20/17 05:54 General appearance: Present: cooperative, A&O X 3, pleasant, no acute distress, obese, answers questions appropriately - Respiratory Respiratory exam: Present: decreased breath sounds, prolonged expiratory phase. Absent: accessory muscle use, rales, rhonchi, stridor, wheezes, tachypnea - Cardiovascular Cardiovascular exam: Present: RRR, +S1, +S2. Absent: diastolic murmur, gallop, rubs, systolic murmur - Extremities Exam Extremities exam: Present: pedal edema (3/4 bilateral lower edema) - Neurological Exam Neurological exam: Present: alert, oriented X3. Absent: altered - Psychiatric Psychiatric exam: Present: normal affect, normal mood Internal Medicine: Result - Labs CBC & Chem 7: 10/20/17 04:07 10/20/17 04:07 Labs: Short CBC 10/20/17 Range/Units 04:07 WBC 8.1 (4.3-11.1) K/mcL Hgb 9.8 L (11.5-15.4) g/dL Hct 30.5 L (35.3-44.9) % Plt Count 134 L (140-400) K/mcL Neutrophils # 7.0 (1.6-8.9) K/mcL BMP 10/19/17 10/20/17 07:07 04:07 Sodium 135 L 136 Potassium 4.0 4.4 Chloride 101 101 Carbon Dioxide 25 28 BUN 55 H 56 H Creatinine 1.81 H 1.65 H Glucose 118 H 128 H Calcium 8.6 8.6 - ABG Interpretation ABG results: ABG ABG pH 7.33 pH Units (7.32-7.45) 10/15/17 09:03 ABG pCO2 49 mmHg (35-45) H 10/15/17 09:03 ABG pO2 112 mmHg (85-104) H 10/15/17 09:03 ABG O2 Saturation 98 % (95-98) 10/15/17 09:03 PT/INR, D-dimer PT 53.4 Seconds (9.4-12.1) H* 10/20/17 04:07 Consult Discharge Plan - Plan Referrals: Lokesh Cooper MD [Primary Care Provider] - 10/22/17 1:15 pm Fernando Najera MD [Partnered Physician] - 11/17/17 2:30 pm <Liu Shrestha P - Last Filed: 10/20/17 17:41> Date of Encounter: 10/20/17 - Constitutional Vitals: Temp Pulse Resp BP Pulse Ox 97.9 F 120 18 138/83 96 10/20/17 16:01 10/20/17 16:01 10/20/17 16:01 10/20/17 16:01 10/20/17 16:01 Internal Medicine: Result - Labs CBC & Chem 7: 10/20/17 04:07 10/20/17 04:07 Labs: Short CBC 10/20/17 Range/Units 04:07 WBC 8.1 (4.3-11.1) K/mcL Hgb 9.8 L (11.5-15.4) g/dL Hct 30.5 L (35.3-44.9) % Plt Count 134 L (140-400) K/mcL Neutrophils # 7.0 (1.6-8.9) K/mcL BMP 10/20/17 04:07 Sodium 136 Potassium 4.4 Chloride 101 Carbon Dioxide 28 BUN 56 H Creatinine 1.65 H Glucose 128 H Calcium 8.6 - ABG Interpretation ABG results: ABG ABG pH 7.33 pH Units (7.32-7.45) 10/15/17 09:03 ABG pCO2 49 mmHg (35-45) H 10/15/17 09:03 ABG pO2 112 mmHg (85-104) H 10/15/17 09:03 ABG O2 Saturation 98 % (95-98) 10/15/17 09:03 PT/INR, D-dimer PT 53.4 Seconds (9.4-12.1) H* 10/20/17 04:07 - Attending Attestation I examined this patient and my medical decision-making was reviewed with the Resident Physician. I agree with the documented findings, disposition and treatment plan as described except to the extent set forth below.
[2017-10-20] MEDS: Budesonide/Formoterol 160/4.5 MDI IH SCH ×2 (10:44→21:34)
[2017-10-20] MEDS: Furosemide 40 MG TABLET PO SCH (16:03)
--- NOTE | 2017-10-20 17:16 | Electrocardiograph Report ---
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
[2017-10-20] MEDS: Gabapentin 100 MG CAPSULE PO SCH (21:17)
[2017-10-20] MEDS: Nystatin POWDER 30 GM BOTTLE TP SCH (21:19)
[2017-10-20] MEDS: *HR* Metoprolol 5 MG/5 ML VIAL IVP PRN (21:49)
[2017-10-21] MEDS: Ipratropium/Albuterol Neb 3 ML IH SCH ×4 (04:53→21:33)
[2017-10-21] MEDS: Benzonatate 100 MG CAPSULE PO PRN ×2 (05:29→22:10)
[2017-10-21] MEDS: Acetaminophen 325 MG TABLET PO PRN ×2 (05:32→22:10)
[2017-10-21] MEDS: *HR* Metoprolol 5 MG/5 ML VIAL IVP PRN (05:32)
[2017-10-21 05:38] LABS: Hematocrit 31.3 % (35.3-44.9); Hemoglobin 10.2 g/dL (11.5-15.4); Mean Corpuscular HGB Conc 32.6 g/dL (31.6-35.5); Mean Corpuscular Hemoglobin 28.1 pg (28.0-33.3); Mean Corpuscular Volume 86.2 fL (83.0-100.0); Platelet Count 148 K/mcL (140-400); Red Blood Count 3.63 M/mcL (3.82-4.97); Red Cell Distribution Width 14.5 % (11.5-14.5)
[2017-10-21 05:41] LABS: INR 3.4; Prothrombin Time 37.7 Seconds (9.4-12.1)
[2017-10-21 05:49] LABS: Calcium 8.8 mg/dL (8.6-10.3); Potassium 4.1 mEq/L (3.5-5.1)
[2017-10-21] MEDS: predniSONE 20 MG TABLET PO SCH (09:28)
[2017-10-21] MEDS: Aspirin Enteric Coated 81 MG Tablet PO SCH (09:28)
[2017-10-21] MEDS: Loratadine 10 MG TABLET PO SCH (09:28)
[2017-10-21] MEDS: Fluticasone Propionate Nasal 50 MCG/SPRAY BOTTLE NS SCH (09:28)
[2017-10-21] MEDS: Furosemide 40 MG TABLET PO SCH ×2 (09:28→17:58)
[2017-10-21] MEDS: Budesonide/Formoterol 160/4.5 MDI IH SCH ×2 (10:44→21:33)
--- NOTE | 2017-10-21 17:52 | Internal Med Progress Note ---
Date of Encounter: 10/21/17 Time of Encounter: 17:49 - Assessment and plan (1) Chronic atrial fibrillation with rapid ventricular response Current Visit: Yes Status: Acute Assessment and plan: was in afib, currently not. CHADS-Vasc score 4 - high risk for embolic stroke. - Continue with Coreg for rate control. goal HR <100 - anticoagulation elevated; see above 10/21/2017 Noted that this morning patient was having occasional shortness of breath and continues palpitation. Ventricular rate was between 120 and 140. Patient was symptomatic in terms of shortness of breath secondary to the rapid ventricular response. Plan: Decided to start intravenous Cardizem. We will closely monitor the patient regarding ventricular rate. After 45 minutes it was noted that titration was in upscale direction. At Cardizem 7.5 mg per hour, patient's heart rate was between 80 and 100 bpm. We will closely monitor her. (2) Elevated INR Current Visit: Yes Status: Acute Assessment and plan: INR 4.8 today. - hold coumadin. - goal INR is 2-3. 10/21/2017 INR trending down. Yesterday INR was 4.8. This morning it was 3.4. (3) CKD (chronic kidney disease) stage 4, GFR 15-29 ml/min Current Visit: Yes Status: Chronic Assessment and plan: Monitor GFR. Avoid nephrotoxins. Creatinine is 1.65 today, close to her baseline. (4) HTN (hypertension) Current Visit: Yes Status: Chronic Assessment and plan: Continue home medication home medication Qualifiers: Hypertension type: essential hypertension Qualified Code(s): I10 - Essential (primary) hypertension (5) DVT prophylaxis Current Visit: Yes Status: Acute Assessment and plan: On Coumadin Medical decision making: This patient has a moderate to severe risk of worsening in spite of being on appropriate medication/therapy due to the underlying chronic comorbid conditions. - Subjective Interval history: Patient seen and examined. Chart reviewed. Patient is sitting upright on a chair. Patient is occasionally short of breath. Patient claims that she has a palpitations. - Constitutional Vitals: Temp Pulse Resp BP Pulse Ox 97.6 F 79 16 126/67 96 10/21/17 16:23 10/21/17 16:23 10/21/17 16:23 10/21/17 16:23 10/21/17 16:23 General appearance: Present: cooperative, A&O X 3, pleasant, no acute distress, obese, answers questions appropriately - Head Head exam: Present: atraumatic, normocephalic - Eye Eye exam: Present: PERRL, conjuntiva pink, sclera anicteric Pupils: Present: PERRL - Neck Neck exam general surgery: Present: supple, trachea midline. Absent: lymphadenopathy - Respiratory Respiratory exam: Present: CTAB. Absent: accessory muscle use, rales, rhonchi, wheezes - Cardiovascular Cardiovascular exam: Present: RRR, +S1, +S2. Absent: diastolic murmur, gallop, rubs, systolic murmur - GI/Abdominal GI/Abdominal exam: Present: normal bowel sounds, soft, no peritoneal signs. Absent: distended, tenderness - Extremities Exam Extremities exam: Present: warm, radial pulses palpable and symmetrical. Absent : calf tenderness, cyanotic, pedal edema - Neurological Exam Neurological exam: Present: CN II-XII intact, oriented X3, no focal deficits. Absent: pronater drift, facial droop, speech deficit - Skin Skin exam: Present: dry, intact Internal Medicine: Result - Labs CBC & Chem 7: 10/21/17 04:41 10/21/17 04:41 Labs: Short CBC 10/21/17 Range/Units 04:41 WBC 9.4 (4.3-11.1) K/mcL Hgb 10.2 L (11.5-15.4) g/dL Hct 31.3 L (35.3-44.9) % Plt Count 148 (140-400) K/mcL BMP 10/21/17 04:41 Sodium 137 Potassium 4.1 Chloride 102 Carbon Dioxide 29 BUN 55 H Creatinine 1.65 H Glucose 116 H Calcium 8.8 - ABG Interpretation ABG results: ABG ABG pH 7.33 pH Units (7.32-7.45) 10/15/17 09:03 ABG pCO2 49 mmHg (35-45) H 10/15/17 09:03 ABG pO2 112 mmHg (85-104) H 10/15/17 09:03 ABG O2 Saturation 98 % (95-98) 10/15/17 09:03 PT/INR, D-dimer PT 37.7 Seconds (9.4-12.1) H 10/21/17 04:41 Consult Discharge Plan - Plan Additional Instructions: appt with coumadin clinic oct 27 @ 7102 Referrals: Lokesh Cooper MD [Primary Care Provider] - 10/22/17 1:15 pm Fernando Najera MD [Partnered Physician] - 11/17/17 2:30 pm
[2017-10-21] MEDS ORDERED: *HR* Warfarin 1 MG TABLET PO ONE (18:00)
[2017-10-21] MEDS: Gabapentin 100 MG CAPSULE PO SCH (22:10)
[2017-10-21] MEDS: Nystatin POWDER 30 GM BOTTLE TP SCH (22:11)
[2017-10-22 03:55] LABS: Basophils % 0.1 %; Eosinophils % 0.1 %; Hematocrit 30.5 % (35.3-44.9); Hemoglobin 9.8 g/dL (11.5-15.4); Immature Granulocytes % 0.9 % (0-4); Lymphocytes # 0.5 K/mcL (0.6-4.6); Lymphocytes % 4.3 %; Mean Corpuscular HGB Conc 32.1 g/dL (31.6-35.5); Mean Corpuscular Hemoglobin 27.9 pg (28.0-33.3); Mean Corpuscular Volume 86.9 fL (83.0-100.0); Mean Platelet Volume 11.1 fL (9.4-12.4); Monocytes # 0.7 K/mcL (0.0-1.3); Monocytes % 5.6 %; Neutrophils # 10.3 K/mcL (1.6-8.9); Platelet Count 152 K/mcL (140-400); Red Blood Count 3.51 M/mcL (3.82-4.97); Red Cell Distribution Width 14.6 % (11.5-14.5)
[2017-10-22 03:57] LABS: INR 2.7; Prothrombin Time 29.5 Seconds (9.4-12.1)
[2017-10-22 04:27] LABS: Albumin 3.3 g/dL (3.5-5.7); Albumin/Globulin Ratio 1.1 (1.1-2.2); Bilirubin,Total 0.3 mg/dL (0.3-1.0); Calcium 8.7 mg/dL (8.6-10.3); Globulin 3.1 g/dL (2.4-3.5); Potassium 4.4 mEq/L (3.5-5.1); Total Protein 6.4 g/dL (6.4-8.9)
[2017-10-22] MEDS: Ipratropium/Albuterol Neb 3 ML IH SCH ×4 (04:29→22:34)
[2017-10-22] MEDS: Furosemide 40 MG TABLET PO SCH ×2 (09:13→17:40)
[2017-10-22] MEDS: Loratadine 10 MG TABLET PO SCH (09:13)
[2017-10-22] MEDS: predniSONE 20 MG TABLET PO SCH (09:13)
[2017-10-22] MEDS: Aspirin Enteric Coated 81 MG Tablet PO SCH (09:13)
[2017-10-22] MEDS: Benzonatate 100 MG CAPSULE PO PRN ×2 (09:13→20:45)
[2017-10-22] MEDS: Acetaminophen 325 MG TABLET PO PRN ×2 (09:18→20:45)
[2017-10-22] MEDS: Fluticasone Propionate Nasal 50 MCG/SPRAY BOTTLE NS SCH (09:30)
[2017-10-22] MEDS: Budesonide/Formoterol 160/4.5 MDI IH SCH ×2 (10:33→22:35)
--- NOTE | 2017-10-22 16:08 | Internal Med Progress Note ---
Date of Encounter: 10/22/17 Time of Encounter: 16:06 - Assessment and plan (1) Chronic atrial fibrillation with rapid ventricular response Current Visit: Yes Status: Acute Assessment and plan: was in afib, currently not. CHADS-Vasc score 4 - high risk for embolic stroke. - Continue with Coreg for rate control. goal HR <100 - anticoagulation elevated; see above 10/21/2017 Noted that this morning patient was having occasional shortness of breath and continues palpitation. Ventricular rate was between 120 and 140. Patient was symptomatic in terms of shortness of breath secondary to the rapid ventricular response. Plan: Decided to start intravenous Cardizem. We will closely monitor the patient regarding ventricular rate. After 45 minutes it was noted that titration was in upscale direction. At Cardizem 7.5 mg per hour, patient's heart rate was between 80 and 100 bpm. We will closely monitor her. 10/22/2017 Noted that patient's heart rate is getting better with the Cardizem drip. Patient had rate is within 9200 since morning. We will continue Cardizem drip at this point. We will try to get oral Cardizem tomorrow morning. Gradual weaning off the drip. Plan of care discussed with the patient and she verbalized understanding. (2) Elevated INR Current Visit: Yes Status: Acute Assessment and plan: INR 4.8 today. - hold coumadin. - goal INR is 2-3. 10/21/2017 INR trending down. Yesterday INR was 4.8. This morning it was 3.4. 10/22/2017 Today's INR is 2.7. Pharmacy to resume Coumadin. (3) CKD (chronic kidney disease) stage 4, GFR 15-29 ml/min Current Visit: Yes Status: Chronic Assessment and plan: Monitor GFR. Avoid nephrotoxins. Creatinine is 1.68 today, close to her baseline. (4) HTN (hypertension) Current Visit: Yes Status: Chronic Assessment and plan: Continue home medication home medication Qualifiers: Hypertension type: essential hypertension Qualified Code(s): I10 - Essential (primary) hypertension (5) DVT prophylaxis Current Visit: Yes Status: Acute Assessment and plan: On Coumadin Medical decision making: This patient has a moderate to severe risk of worsening in spite of being on appropriate medication/therapy due to the underlying chronic comorbid conditions. - Subjective Interval history: Patient seen and examined. Chart reviewed. Patient is sitting upright on a chair. Patient is occasionally short of breath. Patient claims that she has a palpitations. 10/22/2017 Patient seen and examined. Chart reviewed. Patient is lying down flat on her bed. Patient denies any chest pain, nausea, abdominal pain, dizziness and diarrhea. - Constitutional Vitals: Temp Pulse Resp BP Pulse Ox 97.9 F 79 18 131/74 94 10/22/17 15:00 10/22/17 15:00 10/22/17 15:45 10/22/17 15:00 10/22/17 15:45 General appearance: Present: cooperative, A&O X 3, pleasant, no acute distress, obese, answers questions appropriately - Head Head exam: Present: atraumatic, normocephalic - Eye Eye exam: Present: PERRL, conjuntiva pink, sclera anicteric Pupils: Present: PERRL - Neck Neck exam general surgery: Present: supple, trachea midline. Absent: lymphadenopathy - Respiratory Respiratory exam: Present: CTAB. Absent: accessory muscle use, rales, rhonchi, wheezes - Cardiovascular Cardiovascular exam: Present: RRR, +S1, +S2. Absent: diastolic murmur, gallop, rubs, systolic murmur - GI/Abdominal GI/Abdominal exam: Present: normal bowel sounds, soft, no peritoneal signs. Absent: distended, tenderness - Extremities Exam Extremities exam: Present: warm, radial pulses palpable and symmetrical. Absent : calf tenderness, cyanotic, pedal edema - Neurological Exam Neurological exam: Present: CN II-XII intact, oriented X3, no focal deficits. Absent: pronater drift, facial droop, speech deficit - Skin Skin exam: Present: dry, intact Internal Medicine: Result - Labs CBC & Chem 7: 10/22/17 03:30 10/22/17 03:30 Labs: Short CBC 10/22/17 Range/Units 03:30 WBC 11.5 H (4.3-11.1) K/mcL Hgb 9.8 L (11.5-15.4) g/dL Hct 30.5 L (35.3-44.9) % Plt Count 152 (140-400) K/mcL Neutrophils # 10.3 H (1.6-8.9) K/mcL BMP 10/22/17 03:30 Sodium 138 Potassium 4.4 Chloride 103 Carbon Dioxide 29 BUN 58 H Creatinine 1.68 H Glucose 121 H Calcium 8.7 Liver Function 10/22/17 Range/Units 03:30 Total Bilirubin 0.3 (0.3-1.0) mg/dL AST 18 (13-39) Units/L ALT 27 (7-52) Units/L Alkaline Phosphatase 51 (34-104) Units/L Albumin 3.3 L (3.5-5.7) g/dL - ABG Interpretation ABG results: ABG ABG pH 7.33 pH Units (7.32-7.45) 10/15/17 09:03 ABG pCO2 49 mmHg (35-45) H 10/15/17 09:03 ABG pO2 112 mmHg (85-104) H 10/15/17 09:03 ABG O2 Saturation 98 % (95-98) 10/15/17 09:03 PT/INR, D-dimer PT 29.5 Seconds (9.4-12.1) H 10/22/17 03:30 Consult Discharge Plan - Plan Additional Instructions: appt with coumadin clinic oct 27 @ 1030 Referrals: Lokesh Cooper MD [Primary Care Provider] - 10/22/17 1:15 pm Fernando Najera MD [Partnered Physician] - 11/17/17 2:30 pm
--- NOTE | 2017-10-22 17:19 | Electrocardiograph Report ---
[address] [address] Test Date: 2017-10-21 Pat Name: Janiya Barber Department: 111 Room: 2NE25 Gender: F Hand Tier: ANGELES : 1945 Requested By: Liu Shrestha Order Number: [id number] Reading MD: Iftikhar Apodaca Measurements Intervals [place] Rate: 79 P: [place]: 0 QRS: 47 QRSD: 86 T: 79 QT: 395 QTc: 430 Interpretive Statements ATRIAL FLUTTER Electronically Signed On 10-22-2017 17:17:36 EST by Iftikhar Apodaca
[2017-10-22] MEDS ORDERED: *HR* Warfarin 2 MG TABLET PO ONE (18:00)
[2017-10-22] MEDS: Gabapentin 100 MG CAPSULE PO SCH (20:42)
[2017-10-22] MEDS: Nystatin POWDER 30 GM BOTTLE TP SCH (20:52)
[2017-10-23] MEDS: Ipratropium/Albuterol Neb 3 ML IH SCH ×4 (04:09→22:36)
[2017-10-23 04:44] LABS: INR 2.7; Prothrombin Time 29.4 Seconds (9.4-12.1)
[2017-10-23 04:53] LABS: Basophils % 0.1 %; Eosinophils % 0.1 %; Hematocrit 31.2 % (35.3-44.9); Hemoglobin 9.9 g/dL (11.5-15.4); Lymphocytes # 0.5 K/mcL (0.6-4.6); Lymphocytes % 3.9 %; Mean Corpuscular HGB Conc 31.7 g/dL (31.6-35.5); Mean Corpuscular Hemoglobin 27.7 pg (28.0-33.3); Mean Corpuscular Volume 87.2 fL (83.0-100.0); Mean Platelet Volume 10.7 fL (9.4-12.4); Monocytes # 0.7 K/mcL (0.0-1.3); Monocytes % 5.7 %; Neutrophils # 11.3 K/mcL (1.6-8.9); Platelet Count 170 K/mcL (140-400); Red Blood Count 3.58 M/mcL (3.82-4.97); Red Cell Distribution Width 14.5 % (11.5-14.5); Segmented Neutrophils % 89.2 %
[2017-10-23 04:58] LABS: Albumin 3.5 g/dL (3.5-5.7); Albumin/Globulin Ratio 1.1 (1.1-2.2); Bilirubin,Total 0.4 mg/dL (0.3-1.0); Calcium 8.7 mg/dL (8.6-10.3); Globulin 3.1 g/dL (2.4-3.5); Potassium 4.1 mEq/L (3.5-5.1); Total Protein 6.6 g/dL (6.4-8.9)
[2017-10-23] MEDS: Nystatin POWDER 30 GM BOTTLE TP SCH ×3 (07:35→21:24)
[2017-10-23] MEDS: Aspirin Enteric Coated 81 MG Tablet PO SCH (09:02)
[2017-10-23] MEDS: Furosemide 40 MG TABLET PO SCH ×2 (09:02→17:06)
[2017-10-23] MEDS: Loratadine 10 MG TABLET PO SCH (09:02)
[2017-10-23] MEDS: predniSONE 20 MG TABLET PO SCH (09:02)
[2017-10-23] MEDS: Acetaminophen 325 MG TABLET PO PRN ×2 (09:04→21:20)
[2017-10-23] MEDS: Budesonide/Formoterol 160/4.5 MDI IH SCH ×2 (11:04→22:36)
--- NOTE | 2017-10-23 12:30 | Cardiology Progress Note ---
<Paola Rodriguez - Last Filed: 10/23/17 12:41> Date of Encounter: 10/23/17 Time of Encounter: 12:19 Assessment and Plan (1) Atrial fibrillation Current Visit: Yes Status: Acute Patient s/p Ross procedure at [facility] in 1994 secondary to congenital bicuspid aortic valve. (Pulmonic valve moved to aortic position, prosthetic PV placed). -Lexiscan nuclear stress test at [place] 05/2017. -No recent echocardiogram. -CXR 10-06-2016- chronic interstitial changes, no acute process. -ECG 10/06/2016 atrial fibrilltion with RVR. -RHC/LHC 2008 at [facility]- pulmonary HTN, related to LV diastolic dysfunction -Echcardiogram on 10/06/2017 demonstrates LVEF of 65%, atypical septal wall motion with postoperative status, indeterminate diastolic function, right ventricle dilation with normal function, moderate paravalvular prosthetic aortic regurgitation, bioprosthetic aortic valve well visualized. Mild mitral regurgitation, moderate tricuspid regurgitation, mild pulmonic regurgitation, mild pulmonary hypertension. -Paravalvular aortic regurgitation appears stabled and unchanged from previous echo. -CHADS-VASc score of 4- continue coumadin for INR goal 2-3. -On 10/21/2017, Patient complained of palpitations and SOB. Found to be in a fib with RVR. 120-140 bpm. Patient was started on cardizem drip. HR controlled at rate of 7.5. On 10/22/2017, HR was well controlled on cardizem drip. 10/23/2017 -Continue coreg 12.5 BID for rate control. -Will start short-acting PO cardizem 30 mg q6. Began to wean IV cardizem drip 2 hours after first dose of oral cardizem, with HR goal of less than 100. -We will continue to titrate short-acting PO cardizem, until able to discontinue IV drip. -After discontinuation of IV drip with HR less than 100, we will convert the effective short acting PO cardizem dose to long acting formulation. Qualifiers: Atrial fibrillation type: unspecified Qualified Code(s): I48.91 - Unspecified atrial fibrillation (2) CHF exacerbation Current Visit: Yes Status: Acute Echocardiogram on 01/01/2017 LVEF 60-65% with moderate left ventricular diastolic dysfunction, bioprosthetic aortic valve, moderate aortic regurgitation , mild tricuspid regurgitation, moderate pulmonary regurgitation, and moderate pulmonary hypertension. Echcardiogram on 10/06/2017 demonstrates LVEF of 65%, atypical septal wall motion with postoperative status, indeterminate diastolic function, right ventricle dilation with normal function, moderate paravalvular prosthetic aortic regurgitation, bioprosthetic aortic valve well visualized. Mild mitral regurgitation, moderate tricuspid regurgitation, mild pulmonic regurgitation, mild pulmonary hypertension. -Resolved, continue management per primary team. Qualifiers: Congestive heart failure type: diastolic Qualified Code(s): I50.33 - Acute on chronic diastolic (congestive) heart failure (3) Chronic kidney disease, stage III (moderate) Current Visit: No Status: Acute Creatinine improved to baseline. Continue managment per primary team. Discussion w patient/family: The assessment and plan as outlined above was discussed with the patient and/or family members who expressed understanding and agreement. All questions were answered. Thank you for involving us in the care of your patient. Please call with any questions. Subjective Principal diagnosis: Atrial Fibrillation with RVR Interval history: 71 yo female with PMHx of HTN, COPD, GERD, diastolic CHF, s/p Ross procedure in 1994 at [facility] admitted to [facility] on 10/06/2017 for dypnea and CHF acute on chronic failure/exacerbation. Patient is resting comfortably this morning. She denies chest pain, sob, nausea, or palpitations. She denies lightheadness or dizziness. She does report wheezing overnight which kept her from getting restful sleep. Objective Vital Signs, Last 4 Hours Resp Pulse Ox 10/23/17 11:04 16 98 General: Conversant, No Apparent Distress HEENT: Atraumatic, Normocephaly, Mucus Membranes Moist Neck: No JVD Cardiac: Reg Rate and Rhythm, Normal S1 and S2 Lungs: Normal Breath Sounds, No Wheeze, Rales, Rhonchi Neuro: Alert and responsive, Other (patient blind, not focusing on physical exam ) Abdomen: Soft, Non-Tender Musculoskeletal: No Chest Wall Tenderness Extremities: No Clubbing, No Cyanosis, No Edema Results 10/23/17 04:30 10/23/17 04:30 Lab Results 10/23/17 10/23/17 10/23/17 04:30 04:30 04:30 WBC 12.6 H Hgb 9.9 L Hct 31.2 L Plt Count 170 INR 2.7 Sodium 141 Potassium 4.1 Chloride 105 Carbon Dioxide 29 BUN 56 H Creatinine 1.67 H Glucose 123 H Calcium 8.7 Total Bilirubin 0.4 AST 20 ALT 38 Alkaline Phosphatase 50 Consult Discharge Plan - Plan Additional Instructions: appt with coumadin clinic oct 27 @ 1031 Referrals: Lokesh Cooper MD [Primary Care Provider] - 10/22/17 1:15 pm Fernando Najera MD [Partnered Physician] - 11/17/17 2:30 pm <Iftikhar Apodaca - Last Filed: 10/23/17 16:56> Date of Encounter: 10/23/17 Assessment and Plan Discussion w patient/family: The assessment and plan as outlined above was discussed with the patient and/or family members who expressed understanding and agreement. All questions were answered. Thank you for involving us in the care of your patient. Please call with any questions. Objective Vital Signs, Last 4 Hours Temp Pulse Resp BP Pulse Ox 10/23/17 16:00 16 96 10/23/17 15:10 98.4 F 81 16 125/72 96 Results 10/23/17 04:30 10/23/17 04:30 Lab Results 10/23/17 10/23/17 10/23/17 04:30 04:30 04:30 WBC 12.6 H Hgb 9.9 L Hct 31.2 L Plt Count 170 INR 2.7 Sodium 141 Potassium 4.1 Chloride 105 Carbon Dioxide 29 BUN 56 H Creatinine 1.67 H Glucose 123 H Calcium 8.7 Total Bilirubin 0.4 AST 20 ALT 38 Alkaline Phosphatase 50
[2017-10-23] MEDS: Fluticasone Propionate Nasal 50 MCG/SPRAY BOTTLE NS SCH (13:11)
--- NOTE | 2017-10-23 16:40 | Internal Med Progress Note ---
Date of Encounter: 10/23/17 Time of Encounter: 16:35 - Assessment and plan (1) Chronic atrial fibrillation with rapid ventricular response Current Visit: Yes Status: Acute Assessment and plan: was in afib, currently not. CHADS-Vasc score 4 - high risk for embolic stroke. - Continue with Coreg for rate control. goal HR <100 - anticoagulation elevated; see above 10/21/2017 Noted that this morning patient was having occasional shortness of breath and continues palpitation. Ventricular rate was between 120 and 140. Patient was symptomatic in terms of shortness of breath secondary to the rapid ventricular response. Plan: Decided to start intravenous Cardizem. We will closely monitor the patient regarding ventricular rate. After 45 minutes it was noted that titration was in upscale direction. At Cardizem 7.5 mg per hour, patient's heart rate was between 80 and 100 bpm. We will closely monitor her. 10/22/2017 Noted that patient's heart rate is getting better with the Cardizem drip. Patient had rate is within 100 b/m since morning. We will continue Cardizem drip at this point. We will try to get oral Cardizem tomorrow morning. Gradual weaning off the drip. Plan of care discussed with the patient and she verbalized understanding. 10/23/2017 Patient's heart rate was still fluctuating between 100-120 bpm She is getting occasional shortness of breath. At this point I will consult/reconsult cardiology for further management. (2) Elevated INR Current Visit: Yes Status: Acute Assessment and plan: INR 4.8 today. - hold coumadin. - goal INR is 2-3. 10/21/2017 INR trending down. Yesterday INR was 4.8. This morning it was 3.4. 10/22/2017 Today's INR is 2.7. Pharmacy to resume Coumadin. 10/23/2017 INR: 2.7. Pharmacy to manage Coumadin. (3) CKD (chronic kidney disease) stage 4, GFR 15-29 ml/min Current Visit: Yes Status: Chronic Assessment and plan: Monitor GFR. Avoid nephrotoxins. Creatinine is 1.67 today, close to her baseline. (4) HTN (hypertension) Current Visit: Yes Status: Chronic Assessment and plan: Continue home medication home medication Qualifiers: Hypertension type: essential hypertension Qualified Code(s): I10 - Essential (primary) hypertension (5) DVT prophylaxis Current Visit: Yes Status: Acute Assessment and plan: On Coumadin Medical decision making: This patient has a moderate to severe risk of worsening in spite of being on appropriate medication/therapy due to the underlying chronic comorbid conditions. - Subjective Interval history: Patient seen and examined. Chart reviewed. Patient is sitting upright on a chair. Patient is occasionally short of breath. Patient claims that she has a palpitations. 10/22/2017 Patient seen and examined. Chart reviewed. Patient is lying down flat on her bed. Patient denies any chest pain, nausea, abdominal pain, dizziness and diarrhea. 10/23/2017 Patient seen and examined. Chart reviewed. Patient is sitting up comfortably in a chair. She denies any palpitation, nausea, vomiting, abdominal pain. - Constitutional Vitals: Temp Pulse Resp BP Pulse Ox 98.4 F 81 16 125/72 96 10/23/17 15:10 10/23/17 15:10 10/23/17 16:00 10/23/17 15:10 10/23/17 16:00 General appearance: Present: cooperative, A&O X 3, pleasant, no acute distress, obese, answers questions appropriately - Head Head exam: Present: atraumatic, normocephalic - Eye Eye exam: Present: PERRL, conjuntiva pink, sclera anicteric Pupils: Present: PERRL - Neck Neck exam general surgery: Present: supple, trachea midline. Absent: lymphadenopathy - Respiratory Respiratory exam: Present: CTAB. Absent: accessory muscle use, rales, rhonchi, wheezes - Cardiovascular Cardiovascular exam: Present: RRR, +S1, +S2. Absent: diastolic murmur, gallop, rubs, systolic murmur - GI/Abdominal GI/Abdominal exam: Present: normal bowel sounds, soft, no peritoneal signs. Absent: distended, tenderness - Extremities Exam Extremities exam: Present: warm, radial pulses palpable and symmetrical. Absent : calf tenderness, cyanotic, pedal edema - Neurological Exam Neurological exam: Present: CN II-XII intact, oriented X3, no focal deficits. Absent: pronater drift, facial droop, speech deficit - Skin Skin exam: Present: dry, intact Internal Medicine: Result - Labs CBC & Chem 7: 10/23/17 04:30 10/23/17 04:30 Labs: Short CBC 10/23/17 Range/Units 04:30 WBC 12.6 H (4.3-11.1) K/mcL Hgb 9.9 L (11.5-15.4) g/dL Hct 31.2 L (35.3-44.9) % Plt Count 170 (140-400) K/mcL Neutrophils # 11.3 H (1.6-8.9) K/mcL BMP 10/23/17 04:30 Sodium 141 Potassium 4.1 Chloride 105 Carbon Dioxide 29 BUN 56 H Creatinine 1.67 H Glucose 123 H Calcium 8.7 Liver Function 10/23/17 Range/Units 04:30 Total Bilirubin 0.4 (0.3-1.0) mg/dL AST 20 (13-39) Units/L ALT 38 (7-52) Units/L Alkaline Phosphatase 50 (34-104) Units/L Albumin 3.5 (3.5-5.7) g/dL - ABG Interpretation ABG results: ABG ABG pH 7.33 pH Units (7.32-7.45) 10/15/17 09:03 ABG pCO2 49 mmHg (35-45) H 10/15/17 09:03 ABG pO2 112 mmHg (85-104) H 10/15/17 09:03 ABG O2 Saturation 98 % (95-98) 10/15/17 09:03 PT/INR, D-dimer PT 29.4 Seconds (9.4-12.1) H 10/23/17 04:30 Consult Discharge Plan - Plan Additional Instructions: appt with coumadin clinic oct 27 @ 1030 Referrals: Lokesh Cooper MD [Primary Care Provider] - 10/22/17 1:15 pm Fernando Najera MD [Partnered Physician] - 11/17/17 2:30 pm
[2017-10-23] MEDS ORDERED: *HR* Warfarin 2 MG TABLET PO ONE (18:00)
[2017-10-23] MEDS: Gabapentin 100 MG CAPSULE PO SCH (21:11)
[2017-10-23] MEDS: *HR* Metoprolol 5 MG/5 ML VIAL IVP PRN (21:11)
[2017-10-23] MEDS: Benzonatate 100 MG CAPSULE PO PRN (21:20)
[2017-10-24] MEDS: Ipratropium/Albuterol Neb 3 ML IH SCH ×4 (03:38→21:52)
[2017-10-24 05:36] LABS: INR 3.4; Prothrombin Time 37.6 Seconds (9.4-12.1)
[2017-10-24] MEDS: *HR* Metoprolol 5 MG/5 ML VIAL IVP PRN ×2 (08:42→15:05)
[2017-10-24] MEDS: Aspirin Enteric Coated 81 MG Tablet PO SCH (08:42)
[2017-10-24] MEDS: Loratadine 10 MG TABLET PO SCH (08:42)
[2017-10-24] MEDS: Benzonatate 100 MG CAPSULE PO PRN ×2 (08:42→21:34)
[2017-10-24] MEDS: Furosemide 40 MG TABLET PO SCH ×2 (08:43→17:26)
[2017-10-24] MEDS: Nystatin POWDER 30 GM BOTTLE TP SCH ×3 (08:43→21:32)
[2017-10-24] MEDS: Fluticasone Propionate Nasal 50 MCG/SPRAY BOTTLE NS SCH (08:43)
--- NOTE | 2017-10-24 10:38 | Event Note ---
Date of Encounter: 10/24/17 Time of Encounter: 10:36 - Cardiology Event Note Pt is rate controlled this AM on PO Cardizem 30mg Q6hrs and Coreg 12.5mg BID. Will transition to long acting Cardizem CD 120mg daily. Continue BB and CCB for rate control, coumadin for anticoagulation. 12 hr tele AVG HR 93, A-Fib, no significant pauses. Cardiology signing off. Reconsult PRN. Will coordinate outpt follow-up in 2-3 weeks.
[2017-10-24] MEDS: Budesonide/Formoterol 160/4.5 MDI IH SCH ×2 (10:46→21:54)
[2017-10-24] MEDS: Diltiazem CD (24hr) 120 MG CAPSULE PO SCH (11:15)
--- NOTE | 2017-10-24 16:00 | Internal Med Progress Note ---
Date of Encounter: 10/24/17 Time of Encounter: 15:58 - Assessment and plan (1) Chronic atrial fibrillation with rapid ventricular response Current Visit: Yes Status: Acute Assessment and plan: was in afib, currently not. CHADS-Vasc score 4 - high risk for embolic stroke. - Continue with Coreg for rate control. goal HR <100 - anticoagulation elevated; see above 10/21/2017 Noted that this morning patient was having occasional shortness of breath and continues palpitation. Ventricular rate was between 120 and 140. Patient was symptomatic in terms of shortness of breath secondary to the rapid ventricular response. Plan: Decided to start intravenous Cardizem. We will closely monitor the patient regarding ventricular rate. After 45 minutes it was noted that titration was in upscale direction. At Cardizem 7.5 mg per hour, patient's heart rate was between 80 and 100 bpm. We will closely monitor her. 10/22/2017 Noted that patient's heart rate is getting better with the Cardizem drip. Patient had rate is within 100 b/m since morning. We will continue Cardizem drip at this point. We will try to get oral Cardizem tomorrow morning. Gradual weaning off the drip. Plan of care discussed with the patient and she verbalized understanding. 10/23/2017 Patient's heart rate was still fluctuating between 100-120 bpm She is getting occasional shortness of breath. At this point I will consult/reconsult cardiology for further management. 10/24/2017 Noted that patient's ventricular rate is between 70 and 96. Presently patient is on Cardizem extended release 120 mg. Noted that patient is on beta blockers. Cardiology has signed off. If patient remains in this condition then probably we will consider discharging on Thursday. (2) Elevated INR Current Visit: Yes Status: Acute Assessment and plan: INR 4.8 today. - hold coumadin. - goal INR is 2-3. 10/21/2017 INR trending down. Yesterday INR was 4.8. This morning it was 3.4. 10/22/2017 Today's INR is 2.7. Pharmacy to resume Coumadin. 10/23/2017 INR: 2.7. Pharmacy to manage Coumadin. 10/24/2017 Today's INR: 3.4. Pharmacy to manage Coumadin (3) CKD (chronic kidney disease) stage 4, GFR 15-29 ml/min Current Visit: Yes Status: Chronic Assessment and plan: Monitor GFR. Avoid nephrotoxins. Creatinine is 1.67 today, close to her baseline. (4) HTN (hypertension) Current Visit: Yes Status: Chronic Assessment and plan: Continue home medication home medication Qualifiers: Hypertension type: essential hypertension Qualified Code(s): I10 - Essential (primary) hypertension (5) DVT prophylaxis Current Visit: Yes Status: Acute Assessment and plan: On Coumadin Medical decision making: This patient has a moderate to severe risk of worsening in spite of being on appropriate medication/therapy due to the underlying chronic comorbid conditions. - Subjective Interval history: Patient seen and examined. Chart reviewed. Patient is sitting upright on a chair. Patient is occasionally short of breath. Patient claims that she has a palpitations. 10/22/2017 Patient seen and examined. Chart reviewed. Patient is lying down flat on her bed. Patient denies any chest pain, nausea, abdominal pain, dizziness and diarrhea. 10/23/2017 Patient seen and examined. Chart reviewed. Patient is sitting up comfortably in a chair. She denies any palpitation, nausea, vomiting, abdominal pain. 10/24/2017 Patient seen and examined. Chart reviewed. Patient is comfortably sitting in a chair. Patient denies any chest pain, palpitation, nausea, vomiting, abdominal pain - Constitutional Vitals: Temp Pulse Resp BP Pulse Ox 98.2 F 79 16 122/46 99 10/24/17 15:40 10/24/17 15:40 10/24/17 15:40 10/24/17 15:40 10/24/17 15:40 General appearance: Present: cooperative, A&O X 3, pleasant, no acute distress, obese, answers questions appropriately - Head Head exam: Present: atraumatic, normocephalic - Eye Eye exam: Present: PERRL, conjuntiva pink, sclera anicteric Pupils: Present: PERRL - Neck Neck exam general surgery: Present: supple, trachea midline. Absent: lymphadenopathy - Respiratory Respiratory exam: Present: CTAB. Absent: accessory muscle use, rales, rhonchi, wheezes - Cardiovascular Cardiovascular exam: Present: RRR, +S1, +S2. Absent: diastolic murmur, gallop, rubs, systolic murmur - GI/Abdominal GI/Abdominal exam: Present: normal bowel sounds, soft, no peritoneal signs. Absent: distended, tenderness - Extremities Exam Extremities exam: Present: warm, radial pulses palpable and symmetrical. Absent : calf tenderness, cyanotic, pedal edema - Neurological Exam Neurological exam: Present: CN II-XII intact, oriented X3, no focal deficits. Absent: pronater drift, facial droop, speech deficit - Skin Skin exam: Present: dry, intact Internal Medicine: Result - Labs CBC & Chem 7: 10/23/17 04:30 10/23/17 04:30 - ABG Interpretation ABG results: ABG ABG pH 7.33 pH Units (7.32-7.45) 10/15/17 09:03 ABG pCO2 49 mmHg (35-45) H 10/15/17 09:03 ABG pO2 112 mmHg (85-104) H 10/15/17 09:03 ABG O2 Saturation 98 % (95-98) 10/15/17 09:03 PT/INR, D-dimer PT 37.6 Seconds (9.4-12.1) H 10/24/17 05:09 Consult Discharge Plan - Plan Additional Instructions: appt with coumadin clinic oct 27 @ 1030 Referrals: Lokesh Cooper MD [Primary Care Provider] - 10/22/17 1:15 pm Fernando Najera MD [Partnered Physician] - 11/17/17 2:30 pm
[2017-10-24] MEDS: Gabapentin 100 MG CAPSULE PO SCH (21:28)
[2017-10-24] MEDS: Acetaminophen 325 MG TABLET PO PRN (21:34)
[2017-10-25] MEDS: Ipratropium/Albuterol Neb 3 ML IH SCH ×4 (04:04→22:25)
[2017-10-25 06:51] LABS: Basophils % 0.2 %; Eosinophils # 0.2 K/mcL (0.0-0.6); Eosinophils % 1.7 %; Hemoglobin 10.2 g/dL (11.5-15.4); Lymphocytes # 0.7 K/mcL (0.6-4.6); Mean Corpuscular HGB Conc 31.9 g/dL (31.6-35.5); Mean Corpuscular Hemoglobin 27.9 pg (28.0-33.3); Mean Corpuscular Volume 87.7 fL (83.0-100.0); Mean Platelet Volume 9.8 fL (9.4-12.4); Monocytes # 0.8 K/mcL (0.0-1.3); Monocytes % 6.8 %; Neutrophils # 9.8 K/mcL (1.6-8.9); Platelet Count 183 K/mcL (140-400); Red Blood Count 3.65 M/mcL (3.82-4.97); Red Cell Distribution Width 14.8 % (11.5-14.5); Segmented Neutrophils % 83.3 %
[2017-10-25 07:01] LABS: INR 2.6
[2017-10-25 07:08] LABS: Albumin 3.4 g/dL (3.5-5.7); Albumin/Globulin Ratio 1.1 (1.1-2.2); Bilirubin,Total 0.5 mg/dL (0.3-1.0); Calcium 8.8 mg/dL (8.6-10.3); Globulin 3.1 g/dL (2.4-3.5); Potassium 3.8 mEq/L (3.5-5.1); Total Protein 6.5 g/dL (6.4-8.9)
[2017-10-25] MEDS: Fluticasone Propionate Nasal 50 MCG/SPRAY BOTTLE NS SCH (07:32)
[2017-10-25] MEDS: Aspirin Enteric Coated 81 MG Tablet PO SCH (07:32)
[2017-10-25] MEDS: Furosemide 40 MG TABLET PO SCH ×2 (07:32→15:48)
[2017-10-25] MEDS: Diltiazem CD (24hr) 120 MG CAPSULE PO SCH (07:32)
[2017-10-25] MEDS: Benzonatate 100 MG CAPSULE PO PRN ×2 (07:32→20:08)
[2017-10-25] MEDS: Loratadine 10 MG TABLET PO SCH (07:32)
[2017-10-25] MEDS: Nystatin POWDER 30 GM BOTTLE TP SCH ×2 (07:32→20:06)
[2017-10-25] MEDS: Acetaminophen 325 MG TABLET PO PRN ×2 (07:39→20:08)
[2017-10-25] MEDS ORDERED: Diltiazem CD (24hr) 120 MG CAPSULE PO SCH (09:00)
[2017-10-25] MEDS: Budesonide/Formoterol 160/4.5 MDI IH SCH ×2 (09:15→22:25)
[2017-10-25] MEDS ORDERED: Diltiazem CD (24hr) 120 MG CAPSULE PO ONE (09:16)
[2017-10-25] MEDS ORDERED: *HR* OxyCODONE/APAP 5/325 TABLET PO ONE (15:25)
--- NOTE | 2017-10-25 15:48 | Internal Med Progress Note ---
Date of Encounter: 10/25/17 Time of Encounter: 15:47 - Assessment and plan (1) Chronic atrial fibrillation with rapid ventricular response Current Visit: Yes Status: Acute Assessment and plan: was in afib, currently not. CHADS-Vasc score 4 - high risk for embolic stroke. - Continue with Coreg for rate control. goal HR <100 - anticoagulation elevated; see above 10/21/2017 Noted that this morning patient was having occasional shortness of breath and continues palpitation. Ventricular rate was between 120 and 140. Patient was symptomatic in terms of shortness of breath secondary to the rapid ventricular response. Plan: Decided to start intravenous Cardizem. We will closely monitor the patient regarding ventricular rate. After 45 minutes it was noted that titration was in upscale direction. At Cardizem 7.5 mg per hour, patient's heart rate was between 80 and 100 bpm. We will closely monitor her. 10/22/2017 Noted that patient's heart rate is getting better with the Cardizem drip. Patient had rate is within 100 b/m since morning. We will continue Cardizem drip at this point. We will try to get oral Cardizem tomorrow morning. Gradual weaning off the drip. Plan of care discussed with the patient and she verbalized understanding. 10/23/2017 Patient's heart rate was still fluctuating between 100-120 bpm She is getting occasional shortness of breath. At this point I will consult/reconsult cardiology for further management. 10/24/2017 Noted that patient's ventricular rate is between 70 and 96. Presently patient is on Cardizem extended release 120 mg. Noted that patient is on beta blockers. Cardiology has signed off. If patient remains in this condition then probably we will consider discharging on Thursday. 10/25/2017 Patient is back in rapid ventricular rate. I personally spoke with Dr. Apodaca who is cardiology cash controller as well as product safety test engineer. Cardiology team will help us to adjust the ventricular rate. We will follow the recommendations from cardiology. (2) Elevated INR Current Visit: Yes Status: Acute Assessment and plan: INR 4.8 today. - hold coumadin. - goal INR is 2-3. 10/21/2017 INR trending down. Yesterday INR was 4.8. This morning it was 3.4. 10/22/2017 Today's INR is 2.7. Pharmacy to resume Coumadin. 10/23/2017 INR: 2.7. Pharmacy to manage Coumadin. 10/24/2017 Today's INR: 3.4. Pharmacy to manage Coumadin (3) CKD (chronic kidney disease) stage 4, GFR 15-29 ml/min Current Visit: Yes Status: Chronic Assessment and plan: Monitor GFR. Avoid nephrotoxins. Creatinine is 1.67 today, close to her baseline. (4) HTN (hypertension) Current Visit: Yes Status: Chronic Assessment and plan: Continue home medication home medication Qualifiers: Hypertension type: essential hypertension Qualified Code(s): I10 - Essential (primary) hypertension (5) DVT prophylaxis Current Visit: Yes Status: Acute Assessment and plan: On Coumadin Medical decision making: This patient has a moderate to severe risk of worsening in spite of being on appropriate medication/therapy due to the underlying chronic comorbid conditions. - Subjective Interval history: Patient seen and examined. Chart reviewed. Patient is sitting upright on a chair. Patient is occasionally short of breath. Patient claims that she has a palpitations. 10/22/2017 Patient seen and examined. Chart reviewed. Patient is lying down flat on her bed. Patient denies any chest pain, nausea, abdominal pain, dizziness and diarrhea. 10/23/2017 Patient seen and examined. Chart reviewed. Patient is sitting up comfortably in a chair. She denies any palpitation, nausea, vomiting, abdominal pain. 10/24/2017 Patient seen and examined. Chart reviewed. Patient is comfortably sitting in a chair. Patient denies any chest pain, palpitation, nausea, vomiting, abdominal pain 10/25/2017 Patient seen and examined. Chart reviewed. Noted that patient is back in rapid ventricular rate. Patient denies chest pain, nausea, vomiting, abdominal pain - Constitutional Vitals: Temp Pulse Resp BP Pulse Ox 97.8 F 108 14 116/77 94 10/25/17 15:06 10/25/17 15:06 10/25/17 15:27 10/25/17 15:06 10/25/17 15:27 General appearance: Present: cooperative, A&O X 3, pleasant, no acute distress, obese, answers questions appropriately - Head Head exam: Present: atraumatic, normocephalic - Eye Eye exam: Present: PERRL, conjuntiva pink, sclera anicteric Pupils: Present: PERRL - Neck Neck exam general surgery: Present: supple, trachea midline. Absent: lymphadenopathy - Respiratory Respiratory exam: Present: CTAB. Absent: accessory muscle use, rales, rhonchi, wheezes - Cardiovascular Cardiovascular exam: Present: RRR, +S1, +S2. Absent: diastolic murmur, gallop, rubs, systolic murmur - GI/Abdominal GI/Abdominal exam: Present: normal bowel sounds, soft, no peritoneal signs. Absent: distended, tenderness - Extremities Exam Extremities exam: Present: warm, radial pulses palpable and symmetrical. Absent : calf tenderness, cyanotic, pedal edema - Neurological Exam Neurological exam: Present: CN II-XII intact, oriented X3, no focal deficits. Absent: pronater drift, facial droop, speech deficit - Skin Skin exam: Present: dry, intact Internal Medicine: Result - Labs CBC & Chem 7: 10/25/17 06:44 10/25/17 06:44 Labs: Short CBC 10/25/17 Range/Units 06:44 WBC 11.8 H (4.3-11.1) K/mcL Hgb 10.2 L (11.5-15.4) g/dL Hct 32.0 L (35.3-44.9) % Plt Count 183 (140-400) K/mcL Neutrophils # 9.8 H (1.6-8.9) K/mcL BMP 10/25/17 06:44 Sodium 143 Potassium 3.8 Chloride 103 Carbon Dioxide 31 H BUN 56 H Creatinine 1.58 H Glucose 91 Calcium 8.8 Liver Function 10/25/17 Range/Units 06:44 Total Bilirubin 0.5 (0.3-1.0) mg/dL AST 15 (13-39) Units/L ALT 27 (7-52) Units/L Alkaline Phosphatase 47 (34-104) Units/L Albumin 3.4 L (3.5-5.7) g/dL - ABG Interpretation ABG results: ABG ABG pH 7.33 pH Units (7.32-7.45) 10/15/17 09:03 ABG pCO2 49 mmHg (35-45) H 10/15/17 09:03 ABG pO2 112 mmHg (85-104) H 10/15/17 09:03 ABG O2 Saturation 98 % (95-98) 10/15/17 09:03 PT/INR, D-dimer PT 29.0 Seconds (9.4-12.1) H 10/25/17 06:44 Consult Discharge Plan - Plan Additional Instructions: appt with coumadin clinic oct 27 @ 1030 Referrals: Lokesh Cooper MD [Primary Care Provider] - 10/22/17 1:15 pm Fernando Najera MD [Partnered Physician] - 11/17/17 2:30 pm
[2017-10-25] MEDS ORDERED: Warfarin perPT PO PRN (18:00)
[2017-10-25] MEDS ORDERED: *HR* Warfarin 2 MG TABLET PO ONE (18:00)
[2017-10-25] MEDS: Gabapentin 100 MG CAPSULE PO SCH (20:06)
[2017-10-26] MEDS: Ipratropium/Albuterol Neb 3 ML IH SCH ×4 (03:47→21:29)
[2017-10-26 03:53] LABS: INR 2.3; Prothrombin Time 25.3 Seconds (9.4-12.1)
[2017-10-26 03:54] LABS: Basophils % 0.2 %; Eosinophils # 0.1 K/mcL (0.0-0.6); Eosinophils % 1.2 %; Hematocrit 30.7 % (35.3-44.9); Hemoglobin 9.6 g/dL (11.5-15.4); Immature Granulocytes % 1.6 % (0-4); Lymphocytes # 0.7 K/mcL (0.6-4.6); Lymphocytes % 6.7 %; Mean Corpuscular HGB Conc 31.3 g/dL (31.6-35.5); Mean Corpuscular Hemoglobin 27.4 pg (28.0-33.3); Mean Corpuscular Volume 87.5 fL (83.0-100.0); Mean Platelet Volume 10.6 fL (9.4-12.4); Monocytes # 0.8 K/mcL (0.0-1.3); Monocytes % 7.3 %; Neutrophils # 8.5 K/mcL (1.6-8.9); Nucleated Red Blood Cells 0.2 /100 WBC (0); Platelet Count 186 K/mcL (140-400); Red Blood Count 3.51 M/mcL (3.82-4.97); Red Cell Distribution Width 14.8 % (11.5-14.5)
[2017-10-26 04:26] LABS: Albumin 3.2 g/dL (3.5-5.7); Albumin/Globulin Ratio 1.1 (1.1-2.2); Bilirubin,Total 0.5 mg/dL (0.3-1.0); Calcium 8.5 mg/dL (8.6-10.3); Potassium 3.8 mEq/L (3.5-5.1); Total Protein 6.2 g/dL (6.4-8.9)
[2017-10-26] MEDS: Loratadine 10 MG TABLET PO SCH (08:12)
[2017-10-26] MEDS: Aspirin Enteric Coated 81 MG Tablet PO SCH (08:12)
[2017-10-26] MEDS: Furosemide 40 MG TABLET PO SCH ×2 (08:13→16:03)
[2017-10-26] MEDS: Benzonatate 100 MG CAPSULE PO PRN ×2 (08:13→21:10)
[2017-10-26] MEDS: Nystatin POWDER 30 GM BOTTLE TP SCH ×2 (08:18→21:11)
[2017-10-26] MEDS: Fluticasone Propionate Nasal 50 MCG/SPRAY BOTTLE NS SCH (08:18)
[2017-10-26] MEDS: Acetaminophen 325 MG TABLET PO PRN ×2 (08:18→21:11)
[2017-10-26] MEDS ORDERED: Diltiazem CD (24hr) 120 MG CAPSULE PO SCH (09:00)
[2017-10-26] MEDS ORDERED: Diltiazem CD (24hr) 120 MG CAPSULE PO ONE (10:28)
[2017-10-26] MEDS: Budesonide/Formoterol 160/4.5 MDI IH SCH ×2 (11:03→21:29)
--- NOTE | 2017-10-26 13:33 | Internal Med Progress Note ---
Date of Encounter: 10/26/17 Time of Encounter: 13:31 - Assessment and plan (1) Chronic atrial fibrillation with rapid ventricular response Current Visit: Yes Status: Acute Assessment and plan: was in afib, currently not. CHADS-Vasc score 4 - high risk for embolic stroke. - Continue with Coreg for rate control. goal HR <100 - anticoagulation elevated; see above 10/21/2017 Noted that this morning patient was having occasional shortness of breath and continues palpitation. Ventricular rate was between 120 and 140. Patient was symptomatic in terms of shortness of breath secondary to the rapid ventricular response. Plan: Decided to start intravenous Cardizem. We will closely monitor the patient regarding ventricular rate. After 45 minutes it was noted that titration was in upscale direction. At Cardizem 7.5 mg per hour, patient's heart rate was between 80 and 100 bpm. We will closely monitor her. 10/22/2017 Noted that patient's heart rate is getting better with the Cardizem drip. Patient had rate is within 100 b/m since morning. We will continue Cardizem drip at this point. We will try to get oral Cardizem tomorrow morning. Gradual weaning off the drip. Plan of care discussed with the patient and she verbalized understanding. 10/23/2017 Patient's heart rate was still fluctuating between 100-120 bpm She is getting occasional shortness of breath. At this point I will consult/reconsult cardiology for further management. 10/24/2017 Noted that patient's ventricular rate is between 70 and 96. Presently patient is on Cardizem extended release 120 mg. Noted that patient is on beta blockers. Cardiology has signed off. If patient remains in this condition then probably we will consider discharging on Thursday. 10/25/2017 Patient is back in rapid ventricular rate. I personally spoke with Dr. Apodaca who is cardiology electronics commodity manager as well as africana studies professor. Cardiology team will help us to adjust the ventricular rate. We will follow the recommendations from cardiology. 10/26/2017 still has RVR in a background of Chronic Afib Cardiology on board. Possibility of cardioversion is coined by cardiology. on 2 j carlos mitzi ( cardizem and metoprolol) will follow cardiology opinion (2) Elevated INR Current Visit: Yes Status: Acute Assessment and plan: INR 4.8 today. - hold coumadin. - goal INR is 2-3. 10/21/2017 INR trending down. Yesterday INR was 4.8. This morning it was 3.4. 10/22/2017 Today's INR is 2.7. Pharmacy to resume Coumadin. 10/23/2017 INR: 2.7. Pharmacy to manage Coumadin. 10/24/2017 Today's INR: 3.4. Pharmacy to manage Coumadin (3) CKD (chronic kidney disease) stage 4, GFR 15-29 ml/min Current Visit: Yes Status: Chronic Assessment and plan: Monitor GFR. Avoid nephrotoxins. Creatinine is 1.67 today, close to her baseline. (4) HTN (hypertension) Current Visit: Yes Status: Chronic Assessment and plan: Continue home medication home medication Qualifiers: Hypertension type: essential hypertension Qualified Code(s): I10 - Essential (primary) hypertension (5) DVT prophylaxis Current Visit: Yes Status: Acute Assessment and plan: On Coumadin Medical decision making: This patient has a moderate to severe risk of worsening in spite of being on appropriate medication/therapy due to the underlying chronic comorbid conditions. - Subjective Interval history: Patient seen and examined. Chart reviewed. Patient is sitting upright on a chair. Patient is occasionally short of breath. Patient claims that she has a palpitations. 10/22/2017 Patient seen and examined. Chart reviewed. Patient is lying down flat on her bed. Patient denies any chest pain, nausea, abdominal pain, dizziness and diarrhea. 10/23/2017 Patient seen and examined. Chart reviewed. Patient is sitting up comfortably in a chair. She denies any palpitation, nausea, vomiting, abdominal pain. 10/24/2017 Patient seen and examined. Chart reviewed. Patient is comfortably sitting in a chair. Patient denies any chest pain, palpitation, nausea, vomiting, abdominal pain 10/25/2017 Patient seen and examined. Chart reviewed. Noted that patient is back in rapid ventricular rate. Patient denies chest pain, nausea, vomiting, abdominal pain 10/26/2017 patient seen and examined. chart reviewed. still complains of palpitations. denies chest pain. - Constitutional Vitals: Temp Pulse Resp BP Pulse Ox 97.5 F L 107 16 101/53 96 10/26/17 11:41 10/26/17 11:41 10/26/17 11:41 10/26/17 11:41 10/26/17 11:41 General appearance: Present: cooperative, A&O X 3, pleasant, no acute distress, obese, answers questions appropriately - Head Head exam: Present: atraumatic, normocephalic - Eye Eye exam: Present: PERRL, conjuntiva pink, sclera anicteric Pupils: Present: PERRL - Neck Neck exam general surgery: Present: supple, trachea midline. Absent: lymphadenopathy - Respiratory Respiratory exam: Present: CTAB. Absent: accessory muscle use, rales, rhonchi, wheezes - Cardiovascular Cardiovascular exam: Present: RRR, +S1, +S2. Absent: diastolic murmur, gallop, rubs, systolic murmur - GI/Abdominal GI/Abdominal exam: Present: normal bowel sounds, soft, no peritoneal signs. Absent: distended, tenderness - Extremities Exam Extremities exam: Present: warm, radial pulses palpable and symmetrical. Absent : calf tenderness, cyanotic, pedal edema - Neurological Exam Neurological exam: Present: CN II-XII intact, oriented X3, no focal deficits. Absent: pronater drift, facial droop, speech deficit - Skin Skin exam: Present: dry, intact Internal Medicine: Result - Labs CBC & Chem 7: 10/26/17 02:42 10/26/17 02:42 Labs: Short CBC 10/26/17 Range/Units 02:42 WBC 10.2 (4.3-11.1) K/mcL Hgb 9.6 L (11.5-15.4) g/dL Hct 30.7 L (35.3-44.9) % Plt Count 186 (140-400) K/mcL Neutrophils # 8.5 (1.6-8.9) K/mcL BMP 10/26/17 02:42 Sodium 136 Potassium 3.8 Chloride 99 Carbon Dioxide 30 H BUN 56 H Creatinine 1.76 H Glucose 114 H Calcium 8.5 L Liver Function 10/26/17 Range/Units 02:42 Total Bilirubin 0.5 (0.3-1.0) mg/dL AST 16 (13-39) Units/L ALT 23 (7-52) Units/L Alkaline Phosphatase 49 (34-104) Units/L Albumin 3.2 L (3.5-5.7) g/dL - ABG Interpretation ABG results: ABG ABG pH 7.33 pH Units (7.32-7.45) 10/15/17 09:03 ABG pCO2 49 mmHg (35-45) H 10/15/17 09:03 ABG pO2 112 mmHg (85-104) H 10/15/17 09:03 ABG O2 Saturation 98 % (95-98) 10/15/17 09:03 PT/INR, D-dimer PT 25.3 Seconds (9.4-12.1) H 10/26/17 02:42 Consult Discharge Plan - Plan Additional Instructions: appt with coumadin clinic oct 27 @ 1032 Referrals: Lokesh Cooper MD [Primary Care Provider] - 10/22/17 1:15 pm Fernando Najera MD [Partnered Physician] - 11/17/17 2:30 pm
[2017-10-26] MEDS ORDERED: *HR* Warfarin 3 MG TABLET PO ONE (18:00)
[2017-10-26] MEDS: Gabapentin 100 MG CAPSULE PO SCH (21:11)
[2017-10-27] MEDS: Ipratropium/Albuterol Neb 3 ML IH SCH ×4 (04:16→21:11)
[2017-10-27 04:21] LABS: Basophils % 0.2 %; Eosinophils # 0.2 K/mcL (0.0-0.6); Eosinophils % 1.4 %; Hematocrit 31.3 % (35.3-44.9); Hemoglobin 9.8 g/dL (11.5-15.4); Immature Granulocytes % 1.4 % (0-4); Lymphocytes # 0.9 K/mcL (0.6-4.6); Lymphocytes % 8.2 %; Mean Corpuscular HGB Conc 31.3 g/dL (31.6-35.5); Mean Corpuscular Hemoglobin 27.5 pg (28.0-33.3); Mean Corpuscular Volume 87.7 fL (83.0-100.0); Mean Platelet Volume 10.9 fL (9.4-12.4); Monocytes # 0.8 K/mcL (0.0-1.3); Monocytes % 7.2 %; Neutrophils # 9.1 K/mcL (1.6-8.9); Platelet Count 192 K/mcL (140-400); Red Blood Count 3.57 M/mcL (3.82-4.97); Red Cell Distribution Width 14.9 % (11.5-14.5); Segmented Neutrophils % 81.6 %
[2017-10-27 04:57] LABS: Albumin 3.3 g/dL (3.5-5.7); Bilirubin,Total 0.6 mg/dL (0.3-1.0); Calcium 8.6 mg/dL (8.6-10.3); Globulin 3.3 g/dL (2.4-3.5); Potassium 3.7 mEq/L (3.5-5.1); Total Protein 6.6 g/dL (6.4-8.9)
[2017-10-27 05:07] LABS: INR 2.2; Prothrombin Time 23.8 Seconds (9.4-12.1)
[2017-10-27] MEDS: Furosemide 40 MG TABLET PO SCH ×2 (08:54→18:07)
[2017-10-27] MEDS: Aspirin Enteric Coated 81 MG Tablet PO SCH (08:55)
[2017-10-27] MEDS: Loratadine 10 MG TABLET PO SCH (08:55)
[2017-10-27] MEDS: Benzonatate 100 MG CAPSULE PO PRN ×2 (08:55→20:28)
[2017-10-27] MEDS: Diltiazem CD (24hr) 120 MG CAPSULE PO SCH (08:56)
[2017-10-27] MEDS: Acetaminophen 325 MG TABLET PO PRN ×2 (08:58→20:29)
[2017-10-27] MEDS: Fluticasone Propionate Nasal 50 MCG/SPRAY BOTTLE NS SCH (09:02)
[2017-10-27] MEDS: Nystatin POWDER 30 GM BOTTLE TP SCH ×2 (09:04→20:29)
[2017-10-27] MEDS: Budesonide/Formoterol 160/4.5 MDI IH SCH ×2 (11:13→21:11)
--- NOTE | 2017-10-27 11:13 | Cardiology Progress Note ---
Date of Encounter: 10/27/17 Time of Encounter: 11:20 Assessment and Plan (1) Atrial fibrillation Current Visit: Yes Status: Acute Newly diagnosed atrial fibrillation, chronicity unclear. Length hospitalization , difficulty with rate control. Hx of Ross procedure. Nuclear stress ([place]) 05/2017: negative for ischemia or infarct. TTE 10/07/17: LVEF 65%, RV mildly dilated with normal function, moderate paravalvular prosthetic AR, mild MR, moderate TR, normal wall motion Telemetry review: avg VM=326 atrial fibrillation. On cardizem, betablocker. Suspect difficulty controlling HR until underlying illness resolved. Continues to desat without supplemental oxygen. Pt. was not on oxygen prior to admission. Discussed with Dr. Iftikhar Apodaca, will start IV digoxin with load today; then every other day dosing given CKD. Will continue to follow. Continue coumadin for AC, pharmacy to dose as inpatient. Qualifiers: Atrial fibrillation type: persistent Qualified Code(s): I48.1 - Persistent atrial fibrillation Discussion w patient/family: The assessment and plan as outlined above was discussed with the patient and/or family members who expressed understanding and agreement. All questions were answered. Thank you for involving us in the care of your patient. Please call with any questions. The patient will be discussed and reviewed with Dr. Strickland, changes to be made accordingly. Subjective Principal diagnosis: Atrial Fibrillation with RVR Interval history: Seen and examined. Reports continues to have shortness of breath, desaturates without supplemental o2. No chest pain/discomfort or palpitations. Objective Vital Signs, Last 4 Hours Temp Pulse Resp BP Pulse Ox 10/27/17 11:09 98 F 123 18 109/71 94 10/27/17 10:16 97.6 F 122 18 102/74 94 10/27/17 09:08 118 94 General: Conversant, No Apparent Distress HEENT: Atraumatic, Normocephaly, Mucus Membranes Moist Cardiac: Other (irregularly irregular) Lungs: Other (decreased throughout) Neuro: Alert and responsive Abdomen: Soft Skin: No rashes noted on visualized skin Musculoskeletal: No Chest Wall Tenderness Extremities: No Edema, Normal Pulses Results 10/27/17 03:16 10/27/17 03:16 Lab Results 10/27/17 10/27/17 10/27/17 03:16 03:16 03:16 WBC 11.1 Hgb 9.8 L Hct 31.3 L Plt Count 192 INR 2.2 Sodium 136 Potassium 3.7 Chloride 100 Carbon Dioxide 29 BUN 57 H Creatinine 1.92 H Glucose 113 H Calcium 8.6 Total Bilirubin 0.6 AST 15 ALT 24 Alkaline Phosphatase 55 Active Medications Acetaminophen (Tylenol) 650 mg PO Q6HR PRN PRN Reason: Mild Pain (1-3) Stop: 04/07/18 17:19 Last Admin: 10/27/17 08:58 Dose: 650 mg Albuterol/Ipratropium (Duoneb) 3 ml IH [id number] DEREK Stop: 04/07/18 22:01 Last Admin: 10/27/17 04:16 Dose: 3 ml Aspirin (Aspirin Ec) 81 mg PO DAILY DEREK Stop: 04/07/18 17:46 Last Admin: 10/27/17 08:55 Dose: 81 mg Atorvastatin Calcium (Lipitor) 20 mg PO HS DEREK Stop: 04/07/18 21:01 Last Admin: 10/26/17 21:11 Dose: 20 mg Benzonatate (Tessalon) 100 mg PO TID PRN PRN Reason: Cough Stop: 04/14/18 13:45 Last Admin: 10/27/17 08:55 Dose: 100 mg Budesonide/Formoterol Fumarate (Symbicort) 2 puff IH BIDR DEREK Stop: 04/13/18 22:01 Last Admin: 10/26/17 21:29 Dose: 2 puff Calcitriol (Rocaltrol) 0.25 mcg PO DAILY DEREK Stop: 04/08/18 09:01 Last Admin: 10/27/17 08:54 Dose: 0.25 mcg Carvedilol (Coreg) 12.5 mg PO BIDWM DEREK PRN Reason: Protocol Stop: 04/09/18 17:01 Last Admin: 10/27/17 08:55 Dose: 12.5 mg Diltiazem HCl (Cardizem Cd) 360 mg PO DAILY DEREK Stop: 04/28/18 09:01 Last Admin: 10/27/17 08:56 Dose: 360 mg Fluticasone Propionate (Flonase) 50 mcg NS DAILY DEREK PRN Reason: Protocol Stop: 04/09/18 17:16 Last Admin: 10/27/17 09:02 Dose: 50 mcg Furosemide (Lasix) 40 mg PO BIDDIURETIC DEREK Stop: 04/21/18 17:01 Last Admin: 10/27/17 08:54 Dose: 40 mg Gabapentin (Neurontin) 100 mg PO HS DEREK Stop: 04/07/18 21:01 Last Admin: 10/26/17 21:11 Dose: 100 mg Guaifenesin (Mucinex) 600 mg PO Q12H PRN PRN Reason: Congestion Stop: 04/07/18 17:33 Last Admin: 10/26/17 08:13 Dose: 600 mg Loratadine (Claritin) 10 mg PO DAILY [facility] Stop: 04/08/18 09:01 Last Admin: 10/27/17 08:55 Dose: 10 mg Naloxone HCl (Narcan) 0.4 mg IVP Q2MIN PRN PRN Reason: Opioid Reversal Stop: 04/07/18 17:19 Nystatin (Nystop) 1 appl TP BID [facility] Stop: 04/07/18 21:01 Last Admin: 10/27/17 09:04 Dose: 1 appl Omeprazole (Prilosec) 40 mg PO 0630 [facility] Stop: 04/08/18 06:31 Last Admin: 10/27/17 06:36 Dose: 40 mg Ondansetron HCl (Zofran) 4 mg IVP Q8HR PRN PRN Reason: Nausea And Vomiting Stop: 04/07/18 17:19 Last Admin: 10/18/17 08:54 Dose: 4 mg Potassium Chloride (Potassium Chloride) 20 meq PO DAILY [facility] Stop: 04/08/18 09:01 Last Admin: 10/27/17 08:54 Dose: 20 meq Tamsulosin HCl (Flomax) 0.4 mg PO DAILY [facility] PRN Reason: Protocol Stop: 04/08/18 09:01 Last Admin: 10/27/17 08:54 Dose: 0.4 mg Warfarin Sodium (Coumadin Perpt) 1 each PO DAILY@1800 PRN PRN Reason: SEE COMMENTS Stop: 04/26/18 18:01 Warfarin Sodium (Coumadin) 2 mg PO 1800 ONE Stop: 10/27/17 18:01 - Imaging and Cardiology Echo: report reviewed - EKG Interpretation EKG results cardiology: personally reviewed Consult Discharge Plan - Plan Additional Instructions: appt with coumadin clinic oct 27 @ 1030 Referrals: Lokesh Cooper MD [Primary Care Provider] - 10/22/17 1:15 pm Fernando Najera MD [Partnered Physician] - 11/17/17 2:30 pm
[2017-10-27] MEDS ORDERED: *HR* Digoxin 0.5 MG/2 ML AMPUL IVP ONE (12:00)
[2017-10-27] MEDS ORDERED: *HR* Warfarin 2 MG TABLET PO ONE (18:00)
--- NOTE | 2017-10-27 18:06 | Internal Med Progress Note ---
<Jose Rafael London - Last Filed: 10/27/17 17:48> Date of Encounter: 10/27/17 Time of Encounter: 13:00 - Assessment and plan (1) Chronic atrial fibrillation with rapid ventricular response Current Visit: Yes Status: Acute Assessment and plan: Currently A-Fib CHADS-Vasc score 4 with high risk for embolic stroke. TTE 10/07/17: LVEF 65%, RV mildly dilated with normal function, moderate paravalvular prosthetic AR, mild MR, moderate TR, normal wall motion Patient has had shortness of breath throughout her inpatient stay with bilateral rhonchi in lung bases. Cardiology recommending trans-esophageal echocardiogram for evaluation of prosthetic aVR for severe aortic regurgitation if hypoxemia is continued to be unexplained. - Continued current IV Lasix dose. 10/27/17: Difficulty controlling atrial fibrillation with rapid ventricular rate, cardiology following appreciated recommendations. - Crowd he started digoxin with current heart rate between 80 and 100 - Continued on Coreg 12.5 mg by mouth twice a day - Continued on Cardizem 360 mg CD - Continue anticoagulation with warfarin therapy goal range INR 2-3 - Strict intake and output monitoring (2) Hypertension Current Visit: No Status: Chronic Assessment and plan: Known history of hypertension. Blood pressures controlled - Continue current antihypertensive therapy Qualifiers: Hypertension type: essential hypertension Qualified Code(s): I10 - Essential (primary) hypertension (3) CKD (chronic kidney disease) stage 4, GFR 15-29 ml/min Current Visit: Yes Status: Chronic Assessment and plan: Patient has stage IV chronic kidney disease, creatinine and GFR is stable - continue to avoid nephrotoxic medications and renally dose antibiotics - Monitor intake and output, avoid excess volume (4) DVT prophylaxis Current Visit: Yes Status: Acute Assessment and plan: On Coumadin, therapeutic - Subjective Interval history: Ms. Barber 72-year-old female seen in the patient bedside. She is alert awake interactive in no acute distress. She has no complaints at this time just awaiting further regulation of her heart rate. She does have some mild shortness of breath which she says comes and goes around her baseline. Denies any further concerns at this time. - Constitutional Vitals: General appearance: Present: cooperative, A&O X 3, pleasant, no acute distress, obese, answers questions appropriately Exam: General: Patient alert, awake, oriented 3, interactive, in no acute distress HEENT: Normocephalic, atraumatic, patient legally blind, slow lateral nystagmus- Baseline, oral mucosa moist, uvula midline, neck supple trachea midline no palpable lymphadenopathy, no thyromegaly. Chest: Symmetric bilateral correlating with respiratory effort, effort nonlabored. Cardiac: Irregularly irregular heart rate and rhythm, Radial pulses 2+ bilateral , posterior tibial and dorsal pedal pulses 2+ bilateral. Respiratory: Bilateral rhonchi at lung bases. Abdomen: Soft, nontender, positive bowel sounds, no palpable masses appreciated on examination Extremities: Symmetric bilateral, bilateral, lower extremities with 1+ pitting edema symmetric bilaterally. Scar secondary to skin graft on right lateral robles , ecchymosis of the distal right lateral/anterior LE Neurologic: No focal deficits appreciated on examination. Face symmetric, muscle strength symmetric bilateral upper and lower extremities. Internal Medicine: Result - Labs CBC & Chem 7: 10/27/17 03:16 10/27/17 03:16 Labs: Short CBC 10/27/17 Range/Units 03:16 WBC 11.1 (4.3-11.1) K/mcL Hgb 9.8 L (11.5-15.4) g/dL Hct 31.3 L (35.3-44.9) % Plt Count 192 (140-400) K/mcL Neutrophils # 9.1 H (1.6-8.9) K/mcL BMP 10/27/17 03:16 Sodium 136 Potassium 3.7 Chloride 100 Carbon Dioxide 29 BUN 57 H Creatinine 1.92 H Glucose 113 H Calcium 8.6 Liver Function 10/27/17 Range/Units 03:16 Total Bilirubin 0.6 (0.3-1.0) mg/dL AST 15 (13-39) Units/L ALT 24 (7-52) Units/L Alkaline Phosphatase 55 (34-104) Units/L Albumin 3.3 L (3.5-5.7) g/dL - ABG Interpretation ABG results: ABG ABG pH 7.33 pH Units (7.32-7.45) 10/15/17 09:03 ABG pCO2 49 mmHg (35-45) H 10/15/17 09:03 ABG pO2 112 mmHg (85-104) H 10/15/17 09:03 ABG O2 Saturation 98 % (95-98) 10/15/17 09:03 PT/INR, D-dimer PT 23.8 Seconds (9.4-12.1) H 10/27/17 03:16 Consult Discharge Plan - Plan Additional Instructions: appt with coumadin clinic oct 27 @ 1030 Referrals: Lokesh Cooper MD [Primary Care Provider] - 10/22/17 1:15 pm Fernando Najera MD [Partnered Physician] - 11/17/17 2:30 pm <Jose Garcia - Last Filed: 10/27/17 18:39> Date of Encounter: 10/27/17 - Assessment and plan (1) Atrial flutter Current Visit: Yes Status: Acute Qualifiers: Atrial flutter type: typical Qualified Code(s): I48.3 - Typical atrial flutter (2) CKD (chronic kidney disease) stage 4, GFR 15-29 ml/min Current Visit: Yes Status: Chronic (3) COPD (chronic obstructive pulmonary disease) Current Visit: Yes Status: Chronic Qualifiers: COPD type: unspecified COPD Qualified Code(s): J44.9 - Chronic obstructive pulmonary disease, unspecified (4) HLD (hyperlipidemia) Current Visit: Yes Status: Chronic Qualifiers: Hyperlipidemia type: mixed hyperlipidemia Qualified Code(s): E78.2 - Mixed hyperlipidemia (5) HTN (hypertension) Current Visit: Yes Status: Chronic Qualifiers: Hypertension type: essential hypertension Qualified Code(s): I10 - Essential (primary) hypertension (6) Legally blind Current Visit: Yes Status: Chronic (7) CHF exacerbation Current Visit: Yes Status: Acute Qualifiers: Congestive heart failure type: diastolic Qualified Code(s): I50.33 - Acute on chronic diastolic (congestive) heart failure - Constitutional Vitals: Temp Pulse Resp BP Pulse Ox 97.9 F 86 18 120/93 95 10/27/17 17:29 10/27/17 17:29 10/27/17 17:29 10/27/17 17:29 10/27/17 17:29 Internal Medicine: Result - Labs CBC & Chem 7: 10/27/17 03:16 10/27/17 03:16 Labs: Short CBC 10/27/17 Range/Units 03:16 WBC 11.1 (4.3-11.1) K/mcL Hgb 9.8 L (11.5-15.4) g/dL Hct 31.3 L (35.3-44.9) % Plt Count 192 (140-400) K/mcL Neutrophils # 9.1 H (1.6-8.9) K/mcL BMP 10/27/17 03:16 Sodium 136 Potassium 3.7 Chloride 100 Carbon Dioxide 29 BUN 57 H Creatinine 1.92 H Glucose 113 H Calcium 8.6 Liver Function 10/27/17 Range/Units 03:16 Total Bilirubin 0.6 (0.3-1.0) mg/dL AST 15 (13-39) Units/L ALT 24 (7-52) Units/L Alkaline Phosphatase 55 (34-104) Units/L Albumin 3.3 L (3.5-5.7) g/dL - ABG Interpretation ABG results: ABG ABG pH 7.33 pH Units (7.32-7.45) 10/15/17 09:03 ABG pCO2 49 mmHg (35-45) H 10/15/17 09:03 ABG pO2 112 mmHg (85-104) H 10/15/17 09:03 ABG O2 Saturation 98 % (95-98) 10/15/17 09:03 PT/INR, D-dimer PT 23.8 Seconds (9.4-12.1) H 10/27/17 03:16 - Attending Attestation I examined this patient and my medical decision-making was reviewed with the Resident Physician on 10/27/17. I agree with the documented findings, disposition and treatment plan as described except to the extent set forth below. Ms Barber remains hospitalized due to rapid atrial flutter. She remains moderate to high risk due to potential for worsening clinical status. Ms Barber is up in chair. She remains in flutter - rapid. She is having palpitations. No pain. No other acute issues. Exam alert. Comfortable Mucus membranes dry Heart irreg Lungs clear Abd soft I/P 1. A flutter Further diagnoses and plan as above.
[2017-10-27] MEDS: *HR* Digoxin 0.5 MG/2 ML AMPUL IVP SCH (18:08)
--- NOTE | 2017-10-27 19:53 | Electrocardiograph Report ---
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
[2017-10-27] MEDS: Gabapentin 100 MG CAPSULE PO SCH (20:28)
[2017-10-27] MEDS: Ondansetron 4 MG/2 ML VIAL IVP PRN (20:44)
[2017-10-28] MEDS: *HR* Digoxin 0.5 MG/2 ML AMPUL IVP SCH (00:15)
[2017-10-28] MEDS: Ipratropium/Albuterol Neb 3 ML IH SCH ×4 (03:47→21:48)
[2017-10-28 05:29] LABS: INR 2.1; Prothrombin Time 22.8 Seconds (9.4-12.1)
[2017-10-28] MEDS: Benzonatate 100 MG CAPSULE PO PRN ×2 (05:30→20:35)
[2017-10-28 05:32] LABS: Basophils % 0.1 %; Eosinophils # 0.1 K/mcL (0.0-0.6); Hematocrit 27.4 % (35.3-44.9); Lymphocytes # 0.9 K/mcL (0.6-4.6); Lymphocytes % 8.7 %; Mean Corpuscular HGB Conc 32.8 g/dL (31.6-35.5); Mean Corpuscular Hemoglobin 28.6 pg (28.0-33.3); Mean Platelet Volume 10.7 fL (9.4-12.4); Monocytes # 0.7 K/mcL (0.0-1.3); Monocytes % 7.3 %; Neutrophils # 8.3 K/mcL (1.6-8.9); Platelet Count 164 K/mcL (140-400); Red Blood Count 3.15 M/mcL (3.82-4.97); Red Cell Distribution Width 14.9 % (11.5-14.5); Segmented Neutrophils % 81.9 %
[2017-10-28 05:44] LABS: Albumin 2.8 g/dL (3.5-5.7); Albumin/Globulin Ratio 0.9 (1.1-2.2); Bilirubin,Total 0.5 mg/dL (0.3-1.0); Calcium 8.2 mg/dL (8.6-10.3); Total Protein 5.8 g/dL (6.4-8.9)
[2017-10-28] MEDS: Nystatin POWDER 30 GM BOTTLE TP SCH ×2 (09:00→20:31)
[2017-10-28] MEDS: Aspirin Enteric Coated 81 MG Tablet PO SCH (09:51)
[2017-10-28] MEDS: *HR* Digoxin 0.125 MG TABLET PO SCH (09:51)
[2017-10-28] MEDS: Loratadine 10 MG TABLET PO SCH (09:52)
[2017-10-28] MEDS: Furosemide 40 MG TABLET PO SCH (09:52)
[2017-10-28] MEDS: Diltiazem CD (24hr) 120 MG CAPSULE PO SCH (09:53)
--- NOTE | 2017-10-28 10:04 | Cardiology Progress Note ---
Date of Encounter: 10/28/17 Time of Encounter: 08:30 Assessment and Plan (1) Atrial fibrillation Current Visit: Yes Status: Acute Per cardiology: -Newly diagnosed atrial fibrillation/flutter, chronicity unclear. Lengthy hospitalization, difficulty with rate control. -Hx of Ross procedure. -Nuclear stress ([place]) 05/2017: negative for ischemia or infarct. -TTE 10/07/17: LVEF 65%, RV mildly dilated with normal function, moderate paravalvular prosthetic AR, mild MR, moderate TR, normal wall motion -Telemetry reviewed with average HR previous 12 hours noted to be 74, atrial fluuter. -Currently on digoxin 0.125mg QOD, cardizem CD 360mg, cored 12.5 BID. -On coumadin for anticoagulation. -Patient reports breathing is better today. Currently on O2 @ 2LPM per nasal cannular. SpO2 98%. -Cardiology will sign off and will follow in outpatient setting. Follow up set. Qualifiers: Atrial fibrillation type: persistent Qualified Code(s): I48.1 - Persistent atrial fibrillation Discussion w patient/family: The assessment and plan as outlined above was discussed with the patient who expressed understanding and agreement. All questions were answered. Thank you for involving us in the care of your patient. Please call with any questions. Discussed and reviewed with . Subjective Principal diagnosis: Atrial Fibrillation with RVR Interval history: Patient reports breathing has improved today. Currently on O2 at 2LPM per nasal cannula. SpO2 98%. Objective Vital Signs, Last 4 Hours Temp Pulse Resp BP Pulse Ox 10/28/17 07:22 98.2 F 78 16 113/60 98 General: Conversant, No Apparent Distress HEENT: Atraumatic, Normocephaly, Mucus Membranes Moist Neck: No JVD, Normal carotid pulses Cardiac: Normal S1 and S2, No Murmur, Other (Regularly irregular) Lungs: Normal Breath Sounds, No Wheeze, Rales, Rhonchi Neuro: Alert and responsive, No focal deficits noted Abdomen: Soft, Non-Tender Skin: No rashes noted on visualized skin Musculoskeletal: No Chest Wall Tenderness Extremities: No Clubbing, No Cyanosis, Normal Pulses, Other (mild bilateral pedal edema, non-pitting. ) Results 10/28/17 04:14 10/28/17 04:14 Lab Results Active Medications Acetaminophen (Tylenol) 650 mg PO Q6HR PRN PRN Reason: Mild Pain (1-3) Stop: 04/07/18 17:19 Last Admin: 10/27/17 20:29 Dose: 650 mg Albuterol/Ipratropium (Duoneb) 3 ml IH [id number] DEREK Stop: 04/07/18 22:01 Last Admin: 10/28/17 03:47 Dose: 3 ml Aspirin (Aspirin Ec) 81 mg PO DAILY DEREK Stop: 04/07/18 17:46 Last Admin: 10/27/17 08:55 Dose: 81 mg Atorvastatin Calcium (Lipitor) 20 mg PO HS DEREK Stop: 04/07/18 21:01 Last Admin: 10/27/17 20:29 Dose: 20 mg Benzonatate (Tessalon) 100 mg PO TID PRN PRN Reason: Cough Stop: 04/14/18 13:45 Last Admin: 10/28/17 05:30 Dose: 100 mg Budesonide/Formoterol Fumarate (Symbicort) 2 puff IH BIDR DEREK Stop: 04/13/18 22:01 Last Admin: 10/27/17 21:11 Dose: 2 puff Calcitriol (Rocaltrol) 0.25 mcg PO DAILY DEREK Stop: 04/08/18 09:01 Last Admin: 10/27/17 08:54 Dose: 0.25 mcg Carvedilol (Coreg) 12.5 mg PO BIDWM DEREK PRN Reason: Protocol Stop: 04/09/18 17:01 Last Admin: 10/27/17 18:07 Dose: 12.5 mg Digoxin (Lanoxin) 0.125 mg PO QOD DEREK Stop: 04/29/18 09:01 Diltiazem HCl (Cardizem Cd) 360 mg PO DAILY DEREK Stop: 04/28/18 09:01 Last Admin: 10/27/17 08:56 Dose: 360 mg Fluticasone Propionate (Flonase) 50 mcg NS DAILY DEREK PRN Reason: Protocol Stop: 04/09/18 17:16 Last Admin: 10/27/17 09:02 Dose: 50 mcg Furosemide (Lasix) 40 mg PO BIDDIURETIC DEREK Stop: 04/21/18 17:01 Last Admin: 10/27/17 18:07 Dose: 40 mg Gabapentin (Neurontin) 100 mg PO HS [facility] Stop: 04/07/18 21:01 Last Admin: 10/27/17 20:28 Dose: 100 mg Guaifenesin (Mucinex) 600 mg PO Q12H PRN PRN Reason: Congestion Stop: 04/07/18 17:33 Last Admin: 10/26/17 08:13 Dose: 600 mg Loratadine (Claritin) 10 mg PO DAILY [facility] Stop: 04/08/18 09:01 Last Admin: 10/27/17 08:55 Dose: 10 mg Naloxone HCl (Narcan) 0.4 mg IVP Q2MIN PRN PRN Reason: Opioid Reversal Stop: 04/07/18 17:19 Nystatin (Nystop) 1 appl TP BID [facility] Stop: 04/07/18 21:01 Last Admin: 10/27/17 20:29 Dose: 1 appl Omeprazole (Prilosec) 40 mg PO 0630 [facility] Stop: 04/08/18 06:31 Last Admin: 10/28/17 05:30 Dose: 40 mg Ondansetron HCl (Zofran) 4 mg IVP Q8HR PRN PRN Reason: Nausea And Vomiting Stop: 04/07/18 17:19 Last Admin: 10/27/17 20:44 Dose: 4 mg Potassium Chloride (Potassium Chloride) 20 meq PO DAILY [facility] Stop: 04/08/18 09:01 Last Admin: 10/27/17 08:54 Dose: 20 meq Tamsulosin HCl (Flomax) 0.4 mg PO DAILY DEREK PRN Reason: Protocol Stop: 04/08/18 09:01 Last Admin: 10/27/17 08:54 Dose: 0.4 mg Warfarin Sodium (Coumadin Perpt) 1 each PO DAILY@1800 PRN PRN Reason: SEE COMMENTS Stop: 04/26/18 18:01 Laboratory Tests 10/27/17 10/28/17 10/28/17 03:16 04:14 04:14 Hgb 9.0 L INR 2.1 Potassium Creatinine 1.92 H 10/28/17 04:14 Hgb INR Potassium 4.0 Creatinine 2.13 H - Imaging and Cardiology Chest Xray: report reviewed Echo: report reviewed - EKG Interpretation EKG results cardiology: other (Telemetry reviewed with average HR previous 12 hours noted to be 74, atrial flutter.) Consult Discharge Plan - Plan Additional Instructions: appt with coumadin clinic oct 27 @ 1030 Referrals: Lokesh Cooper MD [Primary Care Provider] - 10/22/17 1:15 pm Fernando Najera MD [Partnered Physician] - 11/17/17 2:30 pm
[2017-10-28] MEDS: Budesonide/Formoterol 160/4.5 MDI IH SCH ×2 (11:12→21:48)
[2017-10-28] MEDS: Fluticasone Propionate Nasal 50 MCG/SPRAY BOTTLE NS SCH (15:05)
--- NOTE | 2017-10-28 16:07 | Internal Med Progress Note ---
<Jose Rafael London - Last Filed: 10/28/17 16:03> Date of Encounter: 10/28/17 Time of Encounter: 13:00 - Assessment and plan (1) Chronic atrial fibrillation with rapid ventricular response Current Visit: Yes Status: Acute Assessment and plan: Currently A-Fib CHADS-Vasc score 4 with high risk for embolic stroke. TTE 10/07/17: LVEF 65%, RV mildly dilated with normal function, moderate paravalvular prosthetic AR, mild MR, moderate TR, normal wall motion Patient has had shortness of breath throughout her inpatient stay with bilateral rhonchi in lung bases. Cardiology recommending trans-esophageal echocardiogram for evaluation of prosthetic aVR for severe aortic regurgitation if hypoxemia is continued to be unexplained. - Continued current IV Lasix dose. 10/27/17: Difficulty controlling atrial fibrillation with rapid ventricular rate, cardiology following appreciated recommendations. - Crowd he started digoxin with current heart rate between 80 and 100 - Continued on Coreg 12.5 mg by mouth twice a day - Continued on Cardizem 360 mg CD - Continue anticoagulation with warfarin therapy goal range INR 2-3 - Strict intake and output monitoring 10/28/2017: Atrial fibrillation rate controlled. Heart rate decreased to 40-50 on current rate control. - We will hold Cardizem 360 CD - Continue digoxin - Reduce Cardizem to 6.25mg PO BID - Monitor HR closely (2) Hypertension Current Visit: No Status: Chronic Assessment and plan: Known history of hypertension. Blood pressures controlled - Continue current antihypertensive therapy Qualifiers: Hypertension type: essential hypertension Qualified Code(s): I10 - Essential (primary) hypertension (3) CKD (chronic kidney disease) stage 4, GFR 15-29 ml/min Current Visit: Yes Status: Chronic Assessment and plan: Patient has stage IV chronic kidney disease, creatinine and GFR is stable - continue to avoid nephrotoxic medications and renally dose antibiotics - Monitor intake and output, avoid excess volume (4) DVT prophylaxis Current Visit: Yes Status: Acute Assessment and plan: On Coumadin, therapeutic - Subjective Interval history: Ms. Barber 72-year-old female seen in the patient bedside. She is alert awake interactive in no acute distress. She feels better, breathing improved. No acute complaints at this time. She is eating, drinking, and having bowel movements without complaint. - Constitutional Vitals: Temp Pulse Resp BP Pulse Ox 97.7 F 70 16 114/56 100 10/28/17 15:58 10/28/17 15:58 10/28/17 15:58 10/28/17 15:58 10/28/17 15:58 General appearance: Present: cooperative, A&O X 3, pleasant, no acute distress, obese, answers questions appropriately Exam: General: Patient alert, awake, oriented 3, interactive, in no acute distress HEENT: Normocephalic, atraumatic, patient legally blind, slow lateral nystagmus- Baseline, oral mucosa moist, uvula midline, neck supple trachea midline no palpable lymphadenopathy, no thyromegaly. Chest: Symmetric bilateral correlating with respiratory effort, effort nonlabored. Cardiac: Irregularly irregular heart rate and rhythm, Radial pulses 2+ bilateral , posterior tibial and dorsal pedal pulses 2+ bilateral. Respiratory: CTABL Abdomen: Soft, nontender, positive bowel sounds, no palpable masses appreciated on examination Extremities: Symmetric bilateral, bilateral, lower extremities with 1+ pitting edema symmetric bilaterally. Scar secondary to skin graft on right lateral robles , ecchymosis of the distal right lateral/anterior LE Neurologic: No focal deficits appreciated on examination. Face symmetric, muscle strength symmetric bilateral upper and lower extremities. Internal Medicine: Result - Labs CBC & Chem 7: 10/28/17 04:14 10/28/17 04:14 Labs: Short CBC 10/28/17 Range/Units 04:14 WBC 10.1 (4.3-11.1) K/mcL Hgb 9.0 L (11.5-15.4) g/dL Hct 27.4 L (35.3-44.9) % Plt Count 164 (140-400) K/mcL Neutrophils # 8.3 (1.6-8.9) K/mcL BMP 10/28/17 04:14 Sodium 136 Potassium 4.0 Chloride 101 Carbon Dioxide 28 BUN 56 H Creatinine 2.13 H Glucose 97 Calcium 8.2 L Liver Function 10/28/17 Range/Units 04:14 Total Bilirubin 0.5 (0.3-1.0) mg/dL AST 14 (13-39) Units/L ALT 21 (7-52) Units/L Alkaline Phosphatase 52 (34-104) Units/L Albumin 2.8 L (3.5-5.7) g/dL - ABG Interpretation ABG results: ABG ABG pH 7.33 pH Units (7.32-7.45) 10/15/17 09:03 ABG pCO2 49 mmHg (35-45) H 10/15/17 09:03 ABG pO2 112 mmHg (85-104) H 10/15/17 09:03 ABG O2 Saturation 98 % (95-98) 10/15/17 09:03 PT/INR, D-dimer PT 22.8 Seconds (9.4-12.1) H 10/28/17 04:14 Consult Discharge Plan - Plan Additional Instructions: appt with coumadin clinic oct 27 @ 1030 Referrals: Lokesh Cooper MD [Primary Care Provider] - 10/22/17 1:15 pm Fernando Najera MD [Partnered Physician] - 11/17/17 2:30 pm <Jose Garcia - Last Filed: 10/28/17 18:18> Date of Encounter: 10/28/17 - Assessment and plan (1) Atrial flutter Current Visit: Yes Status: Acute Qualifiers: Atrial flutter type: typical Qualified Code(s): I48.3 - Typical atrial flutter (2) CKD (chronic kidney disease) stage 4, GFR 15-29 ml/min Current Visit: Yes Status: Chronic (3) COPD (chronic obstructive pulmonary disease) Current Visit: Yes Status: Chronic Qualifiers: COPD type: unspecified COPD Qualified Code(s): J44.9 - Chronic obstructive pulmonary disease, unspecified (4) HLD (hyperlipidemia) Current Visit: Yes Status: Chronic Qualifiers: Hyperlipidemia type: mixed hyperlipidemia Qualified Code(s): E78.2 - Mixed hyperlipidemia (5) HTN (hypertension) Current Visit: Yes Status: Chronic Qualifiers: Hypertension type: essential hypertension Qualified Code(s): I10 - Essential (primary) hypertension (6) Legally blind Current Visit: Yes Status: Chronic (7) CHF exacerbation Current Visit: Yes Status: Acute Qualifiers: Congestive heart failure type: diastolic Qualified Code(s): I50.33 - Acute on chronic diastolic (congestive) heart failure - Constitutional Vitals: Temp Pulse Resp BP Pulse Ox 97.7 F 70 16 114/56 100 10/28/17 15:58 10/28/17 15:58 10/28/17 16:16 10/28/17 15:58 10/28/17 16:16 Internal Medicine: Result - Labs CBC & Chem 7: 10/28/17 04:14 10/28/17 04:14 Labs: Short CBC 10/28/17 Range/Units 04:14 WBC 10.1 (4.3-11.1) K/mcL Hgb 9.0 L (11.5-15.4) g/dL Hct 27.4 L (35.3-44.9) % Plt Count 164 (140-400) K/mcL Neutrophils # 8.3 (1.6-8.9) K/mcL BMP 10/28/17 04:14 Sodium 136 Potassium 4.0 Chloride 101 Carbon Dioxide 28 BUN 56 H Creatinine 2.13 H Glucose 97 Calcium 8.2 L Liver Function 10/28/17 Range/Units 04:14 Total Bilirubin 0.5 (0.3-1.0) mg/dL AST 14 (13-39) Units/L ALT 21 (7-52) Units/L Alkaline Phosphatase 52 (34-104) Units/L Albumin 2.8 L (3.5-5.7) g/dL - ABG Interpretation ABG results: ABG ABG pH 7.33 pH Units (7.32-7.45) 10/15/17 09:03 ABG pCO2 49 mmHg (35-45) H 10/15/17 09:03 ABG pO2 112 mmHg (85-104) H 10/15/17 09:03 ABG O2 Saturation 98 % (95-98) 10/15/17 09:03 PT/INR, D-dimer PT 22.8 Seconds (9.4-12.1) H 10/28/17 04:14 - Attending Attestation I examined this patient and my medical decision-making was reviewed with the Resident Physician on 10/28/17. I agree with the documented findings, disposition and treatment plan as described except to the extent set forth below. Ms Barber is currently admitted for management of rapid a flutter. She remains moderate to high risk due to potential for worsening clinical status. Ms Barber is up in chair. Her heart rate has improved with dig but now is actually low. No fever. Still has a cough. No CP. Exam Alert. Comfortable Mucus membranes dry Heart irreg - intermittently jac Lungs clear I/P 1. A flutter 2. Cough - check CXR. Add Robitussin Further diagnoses and plan as above.
[2017-10-28] MEDS ORDERED: *HR* Warfarin 2 MG TABLET PO ONE (18:00)
[2017-10-28] MEDS: Gabapentin 100 MG CAPSULE PO SCH (20:32)
[2017-10-28] MEDS: Acetaminophen 325 MG TABLET PO PRN (20:35)
[2017-10-29] MEDS: Ipratropium/Albuterol Neb 3 ML IH SCH ×4 (03:16→23:18)
[2017-10-29] MEDS: Acetaminophen 325 MG TABLET PO PRN ×2 (07:57→18:43)
[2017-10-29] MEDS: Nystatin POWDER 30 GM BOTTLE TP SCH ×2 (08:41→21:18)
[2017-10-29] MEDS: Aspirin Enteric Coated 81 MG Tablet PO SCH (08:41)
[2017-10-29] MEDS: Loratadine 10 MG TABLET PO SCH (08:41)
[2017-10-29] MEDS: Fluticasone Propionate Nasal 50 MCG/SPRAY BOTTLE NS SCH (08:41)
[2017-10-29] MEDS: Budesonide/Formoterol 160/4.5 MDI IH SCH ×2 (10:51→23:18)
--- NOTE | 2017-10-29 11:15 | Internal Med Progress Note ---
<Jose Rafael London - Last Filed: 10/29/17 14:44> Date of Encounter: 10/29/17 Time of Encounter: 11:13 - Assessment and plan (1) Chronic atrial fibrillation with rapid ventricular response Current Visit: Yes Status: Acute Assessment and plan: Currently A-Fib CHADS-Vasc score 4 with high risk for embolic stroke. TTE 10/07/17: LVEF 65%, RV mildly dilated with normal function, moderate paravalvular prosthetic AR, mild MR, moderate TR, normal wall motion Patient has had shortness of breath throughout her inpatient stay with bilateral rhonchi in lung bases. Cardiology recommending trans-esophageal echocardiogram for evaluation of prosthetic aVR for severe aortic regurgitation if hypoxemia is continued to be unexplained. - Continued current IV Lasix dose. 10/27/17: Difficulty controlling atrial fibrillation with rapid ventricular rate, cardiology following appreciated recommendations. - Crowd he started digoxin with current heart rate between 80 and 100 - Continued on Coreg 12.5 mg by mouth twice a day - Continued on Cardizem 360 mg CD - Continue anticoagulation with warfarin therapy goal range INR 2-3 - Strict intake and output monitoring 10/28/2017: Atrial fibrillation rate controlled. Heart rate decreased to 40-50 on current rate control. - We will hold Cardizem 360 CD - Continue digoxin - Reduce Cardizem to 6.25mg PO BID - Monitor HR closely 10/29/2017: Atrial fibrillation rate controlled. - Continue to hold Cardizem 360 CD - Continue digoxin - Continue Coreg 6.25mg PO BID - Monitor HR closely possible D/c tomorrow. (2) Hypertension Current Visit: No Status: Chronic Assessment and plan: Known history of hypertension. Blood pressures controlled - Continue current antihypertensive therapy Qualifiers: Hypertension type: essential hypertension Qualified Code(s): I10 - Essential (primary) hypertension (3) CKD (chronic kidney disease) stage 4, GFR 15-29 ml/min Current Visit: Yes Status: Chronic Assessment and plan: Patient has stage IV chronic kidney disease, creatinine and GFR is stable - continue to avoid nephrotoxic medications and renally dose antibiotics - Monitor intake and output, avoid excess volume (4) DVT prophylaxis Current Visit: Yes Status: Acute Assessment and plan: On Coumadin, therapeutic - Subjective Interval history: Ms. Barber 72-year-old female seen in the patient bedside. She is alert awake interactive in no acute distress. She feels better, breathing improved. No acute complaints at this time. She is eating, drinking, and having bowel movements without complaint. - Constitutional Vitals: Temp Pulse Resp BP Pulse Ox 97.6 F 74 14 127/46 95 10/29/17 07:38 10/29/17 07:38 10/29/17 07:38 10/29/17 07:38 10/29/17 07:38 General appearance: Present: cooperative, A&O X 3, pleasant, no acute distress, obese, answers questions appropriately Exam: General: Patient alert, awake, oriented 3, interactive, in no acute distress HEENT: Normocephalic, atraumatic, patient legally blind, slow lateral nystagmus- Baseline, oral mucosa moist, uvula midline, neck supple trachea midline no palpable lymphadenopathy, no thyromegaly. Chest: Symmetric bilateral correlating with respiratory effort, effort nonlabored. Cardiac: Irregularly irregular heart rate and rhythm, Radial pulses 2+ bilateral , posterior tibial and dorsal pedal pulses 2+ bilateral. Respiratory: CTABL Abdomen: Soft, nontender, positive bowel sounds, no palpable masses appreciated on examination Extremities: Symmetric bilateral, bilateral, lower extremities with 1+ pitting edema symmetric bilaterally. Scar secondary to skin graft on right lateral robles , ecchymosis of the distal right lateral/anterior LE Neurologic: No focal deficits appreciated on examination. Face symmetric, muscle strength symmetric bilateral upper and lower extremities. Internal Medicine: Result - Labs CBC & Chem 7: 10/29/17 11:46 10/29/17 11:46 - ABG Interpretation ABG results: ABG ABG pH 7.33 pH Units (7.32-7.45) 10/15/17 09:03 ABG pCO2 49 mmHg (35-45) H 10/15/17 09:03 ABG pO2 112 mmHg (85-104) H 10/15/17 09:03 ABG O2 Saturation 98 % (95-98) 10/15/17 09:03 PT/INR, D-dimer PT 22.0 Seconds (9.4-12.1) H 10/29/17 06:13 Consult Discharge Plan - Plan Additional Instructions: appt with coumadin clinic oct 27 @ 1030 Referrals: Lokesh Cooper MD [Primary Care Provider] - 10/22/17 1:15 pm Fernando Najera MD [Partnered Physician] - 11/17/17 2:30 pm <Jose Garcia - Last Filed: 10/29/17 16:43> Date of Encounter: 10/29/17 - Assessment and plan (1) Atrial flutter Current Visit: Yes Status: Acute Qualifiers: Atrial flutter type: typical Qualified Code(s): I48.3 - Typical atrial flutter (2) CKD (chronic kidney disease) stage 4, GFR 15-29 ml/min Current Visit: Yes Status: Chronic (3) COPD (chronic obstructive pulmonary disease) Current Visit: Yes Status: Chronic Qualifiers: COPD type: unspecified COPD Qualified Code(s): J44.9 - Chronic obstructive pulmonary disease, unspecified (4) HLD (hyperlipidemia) Current Visit: Yes Status: Chronic Qualifiers: Hyperlipidemia type: mixed hyperlipidemia Qualified Code(s): E78.2 - Mixed hyperlipidemia (5) HTN (hypertension) Current Visit: Yes Status: Chronic Qualifiers: Hypertension type: essential hypertension Qualified Code(s): I10 - Essential (primary) hypertension (6) Legally blind Current Visit: Yes Status: Chronic (7) CHF exacerbation Current Visit: Yes Status: Acute Qualifiers: Congestive heart failure type: diastolic Qualified Code(s): I50.33 - Acute on chronic diastolic (congestive) heart failure - Constitutional Vitals: Temp Pulse Resp BP Pulse Ox 97.6 F 62 16 110/61 97 10/29/17 15:33 10/29/17 15:33 10/29/17 15:58 10/29/17 15:33 10/29/17 15:58 Internal Medicine: Result - Labs CBC & Chem 7: 10/29/17 11:46 10/29/17 11:46 Labs: Short CBC 10/29/17 Range/Units 11:46 WBC 11.1 (4.3-11.1) K/mcL Hgb 9.2 L (11.5-15.4) g/dL Hct 28.8 L (35.3-44.9) % Plt Count 168 (140-400) K/mcL Neutrophils # 9.9 H (1.6-8.9) K/mcL BMP 10/29/17 11:46 Sodium 133 L Potassium 4.5 Chloride 100 Carbon Dioxide 26 BUN 58 H Creatinine 2.38 H Glucose 132 H Calcium 8.5 L Liver Function 10/29/17 Range/Units 11:46 Total Bilirubin 0.5 (0.3-1.0) mg/dL AST 19 (13-39) Units/L ALT 25 (7-52) Units/L Alkaline Phosphatase 54 (34-104) Units/L Albumin 3.1 L (3.5-5.7) g/dL - ABG Interpretation ABG results: ABG ABG pH 7.33 pH Units (7.32-7.45) 10/15/17 09:03 ABG pCO2 49 mmHg (35-45) H 10/15/17 09:03 ABG pO2 112 mmHg (85-104) H 10/15/17 09:03 ABG O2 Saturation 98 % (95-98) 10/15/17 09:03 PT/INR, D-dimer PT 22.0 Seconds (9.4-12.1) H 10/29/17 06:13 - Attending Attestation I examined this patient and my medical decision-making was reviewed with the Resident Physician on 10/29/17. I agree with the documented findings, disposition and treatment plan as described except to the extent set forth below. Ms Barber is currently admitted for a flutter with rate control issues. She remains moderate to high risk due to potential for worsening clinical status. Ms Barber is up in chair. She feels OK. Heart rate appears to be better today. Meds were adjusted yesterday. No CP or SOB. Exam Alert. Comfortable Mucus membranes dry Heart irreg and not tachy Lungs clear at this time. Abd soft I/P 1. A flutter 2. HTN Further diagnoses and plan as above. Will monitor on tele overnight to verify current med doses. Anticipate d/c tomorrow. Did not qualify for home oxygen.
[2017-10-29 11:55] LABS: Basophils % 0.1 %; Eosinophils # 0.1 K/mcL (0.0-0.6); Eosinophils % 0.9 %; Hematocrit 28.8 % (35.3-44.9); Hemoglobin 9.2 g/dL (11.5-15.4); Immature Granulocytes % 0.5 % (0-4); Lymphocytes # 0.7 K/mcL (0.6-4.6); Lymphocytes % 5.8 %; Mean Corpuscular HGB Conc 31.9 g/dL (31.6-35.5); Mean Corpuscular Hemoglobin 28.1 pg (28.0-33.3); Mean Corpuscular Volume 88.1 fL (83.0-100.0); Mean Platelet Volume 10.1 fL (9.4-12.4); Monocytes # 0.4 K/mcL (0.0-1.3); Neutrophils # 9.9 K/mcL (1.6-8.9); Platelet Count 168 K/mcL (140-400); Red Blood Count 3.27 M/mcL (3.82-4.97); Red Cell Distribution Width 14.6 % (11.5-14.5); Segmented Neutrophils % 88.7 %
[2017-10-29 12:13] LABS: Albumin 3.1 g/dL (3.5-5.7); Bilirubin,Total 0.5 mg/dL (0.3-1.0); Calcium 8.5 mg/dL (8.6-10.3); Globulin 3.2 g/dL (2.4-3.5); Potassium 4.5 mEq/L (3.5-5.1); Total Protein 6.3 g/dL (6.4-8.9)
[2017-10-29] MEDS ORDERED: *HR* Warfarin 2 MG TABLET PO SCH (18:00)
[2017-10-29] MEDS: Gabapentin 100 MG CAPSULE PO SCH (21:17)
[2017-10-30] MEDS: Ipratropium/Albuterol Neb 3 ML IH SCH ×4 (04:19→21:37)
[2017-10-30 04:55] LABS: Basophils % 0.1 %; Eosinophils # 0.1 K/mcL (0.0-0.6); Eosinophils % 1.3 %; Hematocrit 26.5 % (35.3-44.9); Hemoglobin 8.5 g/dL (11.5-15.4); Immature Granulocytes % 0.6 % (0-4); Lymphocytes # 0.7 K/mcL (0.6-4.6); Lymphocytes % 7.1 %; Mean Corpuscular HGB Conc 32.1 g/dL (31.6-35.5); Mean Corpuscular Hemoglobin 28.2 pg (28.0-33.3); Mean Platelet Volume 10.1 fL (9.4-12.4); Monocytes # 0.5 K/mcL (0.0-1.3); Monocytes % 5.5 %; Neutrophils # 8.2 K/mcL (1.6-8.9); Platelet Count 161 K/mcL (140-400); Red Blood Count 3.01 M/mcL (3.82-4.97); Red Cell Distribution Width 14.6 % (11.5-14.5); Segmented Neutrophils % 85.4 %
[2017-10-30 05:04] LABS: INR 2.4; Prothrombin Time 26.6 Seconds (9.4-12.1)
[2017-10-30 05:49] LABS: Albumin 2.9 g/dL (3.5-5.7); Albumin/Globulin Ratio 0.9 (1.1-2.2); Bilirubin,Total 0.4 mg/dL (0.3-1.0); Calcium 8.4 mg/dL (8.6-10.3); Globulin 3.1 g/dL (2.4-3.5); Potassium 4.3 mEq/L (3.5-5.1)
--- NOTE | 2017-10-30 08:59 | Discharge Summary ---
Date of Encounter: 10/30/17 Time of Encounter: 08:57 - Discharge Diagnosis (1) Chronic atrial fibrillation with rapid ventricular response Status: Acute (2) Hypertension Status: Chronic Qualifiers: Hypertension type: essential hypertension Qualified Code(s): I10 - Essential (primary) hypertension (3) CKD (chronic kidney disease) stage 4, GFR 15-29 ml/min Status: Chronic (4) DVT prophylaxis Status: Acute - Discharge Medications Home Medications: Carvedilol [Coreg] 6.25 mg PO BID 04/30/15 [History] Cyclosporine [Restasis] 1 drop BOTH EYES BID 04/30/15 [History] Fluticasone Propionate [Flovent Diskus] 2 puff IH BID 04/30/15 [History] Isosorbide MONOnitrate [Isosorbide Mononitrate ER] 60 mg PO DAILY 04/30/15 [ History] Potassium Chloride 20 meq PO DAILY 06/19/16 [History] Calcitriol [Rocaltrol] 0.25 mcg PO DAILY 03/20/17 [History] Furosemide [Lasix] 40 mg PO DAILY 03/20/17 [History] Azelastine HCl 1 drop OP BID 07/20/17 [History] Fluticasone/Vilanterol [Breo Ellipta 100-25 Mcg INH] 1 each IH DAILY 07/20/17 [ History] Gabapentin [Neurontin] 100 mg PO HS 07/20/17 [History] Loratadine [Claritin] 10 mg PO DAILY 07/20/17 [History] Nystatin POWDER [Nystop] 1 appl TP BID 07/20/17 [History] Tamsulosin [Flomax] 0.4 mg PO DAILY 07/20/17 [History] Albuterol Sulfate [Albuterol Inhaler] 2 puff IH Q4HR PRN 08/27/17 [History] Albuterol Neb [AccuNeb] 0.63 mg IH Q12H PRN 10/06/17 [History] Atorvastatin Calcium [Lipitor] 20 mg PO HS 10/06/17 [History] Esomeprazole Magnesium [Nexium] 40 mg PO DAILY 10/06/17 [History] Guaifenesin [Mucinex] 600 mg PO Q12H PRN 10/06/17 [History] Warfarin [Coumadin] 1.5 mg PO MOFR 10/30/17 [History] Warfarin [Coumadin] 2 mg PO SUTUWETHSA 10/30/17 [History] Allergies/Adverse Reactions: 3 Allergy/AdvReac Type Severity Reaction Status Date / Time ciprofloxacin [From Cipro] Allergy Hives Verified 08/27/17 11:02 meperidine [From Demerol] AdvReac Vomiting Verified 08/27/17 11:02 Procedures/tests Complete & Pending: Procedures Performed prior 72 hours Category Date Time Status EV venous imaging UE RT Routine Y 10/30/17 07:45 Ordered Date of admission: 10/06/17 16:24 Primary care physician: Lokesh Cooper MD Consults: 10/06/17 17:15 Consult to Nutrition [CONS] Routine Comment: Consulting Provider: NUTRITION Reason for Dietary Consult: PO Supplementation Consult to [facility] [CONS] Routine Reason for SW Consult: Possible need for home care 10/06/17 17:30 Consult to Occupational Therapy [CONS] Routine Comment: Evaluate, develop and implement POC Reason for Consult: Patient reports she is unsteady on her feet when ambulating. States she is able to use walker but has difficulty. Please assess patient for ambulation strength, stability, safety, and for possible home assistive needs for post- discharge planning. 10/06/17 17:31 Consult to Physical Therapy [CONS] Routine Comment: Evaluate, develop and implement POC Reason for Consult: Patient reports she is unsteady on her feet when ambulating. States she is able to use walker but has difficulty. Please assess patient for ambulation strength, stability, safety, and for possible home assistive needs for post- discharge planning. 10/06/17 17:45 Consult to Wound Care [CONS] Routine Reason for Consult: Patient has wound on RLE that will require wound care recommendations for daily care. Call Completed: No 10/06/17 17:48 Consult to Cardiology [CONS] Routine Comment: Consulting Provider: [facility] Reason for Consult: Patient is being admitted w/CHF exacerbation and has new onset of atrial flutter. Denies previous hx. Pt. also reports right-sided chest pain today w/radiation to right neck. Initial troponin <0.03. Will trend x2. Echocardiogram ordered. Pt. has hx of Ross procedure, cardiomyopathy, valvular heart disease, HLD , and HTN. Call Completed: Yes 10/08/17 13:50 Consult to Neurology [CONS] Routine Consulting Provider: [facility] Reason for Consult: Patient with recent intracraniel bleed/now with new onset atrial fibrillation. Trying to assess need for anti-coagulation with history of fall/ blindness and risk for further head trauma. Call Completed: No 10/25/17 07:15 Consult to Cardiology [CONS] Routine Comment: Consulting Provider: [facility] Reason for Consult: per hospitalist, a-fib rvr Call Completed: Yes - Patient Status Condition: Fair Functional capacity at discharge: uses cane/walker Overall status at discharge: patient is progressing back to baseline - Discharge Instructions Follow Up With: Lokesh Cooper MD [Primary Care Provider] - 10/22/17 1:15 pm Fernando Najera MD [Partnered Physician] - 11/17/17 2:30 pm Additional Instructions: appt with coumadin clinic oct 27 @ 1030 1. Follow-up with your primary care provider in the next 3-5 days 2. Take all prescriptions as prescribed, any concerns or questions contact her primary care provider. 3. Return to the emergency department if: - Diet and Activity Activity: increase activity as tolerated Diet: advance to your usual diet Hospital course: Ms. Barber is a 72 year old female - Time Spent with Patient Total time spent providing and/or coordinating discharge services: - Constitutional Vitals: Temp Pulse Resp BP Pulse Ox 97.8 F 80 15 116/89 100 10/30/17 07:00 10/30/17 07:00 10/30/17 07:00 10/30/17 07:00 10/30/17 07:00 General appearance: Present: cooperative, A&O X 3, pleasant, no acute distress, obese, answers questions appropriately
[2017-10-30] MEDS: *HR* Digoxin 0.125 MG TABLET PO SCH (10:35)
[2017-10-30] MEDS: Loratadine 10 MG TABLET PO SCH (10:35)
[2017-10-30] MEDS: Aspirin Enteric Coated 81 MG Tablet PO SCH (10:35)
[2017-10-30] MEDS: Nystatin POWDER 30 GM BOTTLE TP SCH ×2 (10:35→20:35)
[2017-10-30] MEDS: Fluticasone Propionate Nasal 50 MCG/SPRAY BOTTLE NS SCH (10:36)
[2017-10-30] MEDS: Budesonide/Formoterol 160/4.5 MDI IH SCH ×2 (10:55→21:37)
--- NOTE | 2017-10-30 11:53 | Internal Med Progress Note ---
<PjalliealbertJose Rafael White - Last Filed: 10/30/17 17:11> Date of Encounter: 10/30/17 Time of Encounter: 08:20 - Assessment and plan (1) Chronic atrial fibrillation with rapid ventricular response Current Visit: Yes Status: Acute Assessment and plan: Currently A-Fib CHADS-Vasc score 4 with high risk for embolic stroke. TTE 10/07/17: LVEF 65%, RV mildly dilated with normal function, moderate paravalvular prosthetic AR, mild MR, moderate TR, normal wall motion Patient has had shortness of breath throughout her inpatient stay with bilateral rhonchi in lung bases. Cardiology recommending trans-esophageal echocardiogram for evaluation of prosthetic aVR for severe aortic regurgitation if hypoxemia is continued to be unexplained. - Continued current IV Lasix dose. 10/27/17: Difficulty controlling atrial fibrillation with rapid ventricular rate, cardiology following appreciated recommendations. - Crowd he started digoxin with current heart rate between 80 and 100 - Continued on Coreg 12.5 mg by mouth twice a day - Continued on Cardizem 360 mg CD - Continue anticoagulation with warfarin therapy goal range INR 2-3 - Strict intake and output monitoring 10/28/2017: Atrial fibrillation rate controlled. Heart rate decreased to 40-50 on current rate control. - We will hold Cardizem 360 CD - Continue digoxin - Reduce Cardizem to 6.25mg PO BID - Monitor HR closely 10/29/2017: Atrial fibrillation rate controlled. - Continue to hold Cardizem 360 CD - Continue digoxin - Continue Coreg 6.25mg PO BID - Monitor HR closely 10/30/2017: Atrial fibrillation rate controlled. 14:20 15 second pause with symptomatic patient with spontaneous recover -Cardiology called and patient placed on Amiodarone - Cardizem, coreg discontinued - Continued on Digoxin with next dose scheduled 11/01/2017. Will discuss with Cardiology regarding necessity (2) Hypertension Current Visit: No Status: Chronic Assessment and plan: Known history of hypertension. Blood pressures controlled - Continue current antihypertensive therapy Qualifiers: Hypertension type: essential hypertension Qualified Code(s): I10 - Essential (primary) hypertension (3) CKD (chronic kidney disease) stage 4, GFR 15-29 ml/min Current Visit: Yes Status: Chronic Assessment and plan: Patient has stage IV chronic kidney disease, creatinine and GFR is stable - continue to avoid nephrotoxic medications and renally dose antibiotics - Monitor intake and output, avoid excess volume (4) DVT prophylaxis Current Visit: Yes Status: Acute Assessment and plan: On Coumadin, therapeutic - Subjective Interval history: Ms. Barber 72-year-old female seen in the patient bedside. She is alert awake interactive in no acute distress. She denies any difficulty with her respiratory status feels that is improving compared to admission. She however has developed right upper extremity edema with some erythema around the site of her EPIV which was removed. She denies any pain or discomfort but has noticed a little bit of edema feeling in her right upper extremity. She denies any other fevers chills, riggers, nausea vomiting diarrhea or other symptoms. - Constitutional Vitals: Temp Pulse Resp BP Pulse Ox 97.8 F 80 15 116/89 100 10/30/17 07:00 10/30/17 07:00 10/30/17 07:00 10/30/17 07:00 10/30/17 07:00 General appearance: Present: cooperative, A&O X 3, pleasant, no acute distress, obese, answers questions appropriately Exam: General: Patient alert, awake, oriented 3, interactive, in no acute distress HEENT: Normocephalic, atraumatic, patient legally blind, slow lateral nystagmus- Baseline, oral mucosa moist, uvula midline, neck supple trachea midline no palpable lymphadenopathy, no thyromegaly. Chest: Symmetric bilateral correlating with respiratory effort, effort nonlabored. Cardiac: Irregularly irregular heart rate and rhythm, Radial pulses 2+ bilateral , posterior tibial and dorsal pedal pulses 2+ bilateral. Respiratory: CTABL Abdomen: Soft, nontender, positive bowel sounds, no palpable masses appreciated on examination Extremities: Symmetric bilateral, bilateral, lower extremities with 1+ pitting edema symmetric bilaterally. Scar secondary to skin graft on right lateral robles , ecchymosis of the distal right lateral/anterior LE. Right upper extremity with trace edema and erythema at his previous EPIV site. Neurologic: No focal deficits appreciated on examination. Face symmetric, muscle strength symmetric bilateral upper and lower extremities. Internal Medicine: Result - Labs CBC & Chem 7: 10/30/17 04:44 10/30/17 04:44 Labs: Short CBC 10/29/17 10/30/17 Range/Units 11:46 04:44 WBC 11.1 9.6 (4.3-11.1) K/mcL Hgb 9.2 L 8.5 L (11.5-15.4) g/dL Hct 28.8 L 26.5 L (35.3-44.9) % Plt Count 168 161 (140-400) K/mcL Neutrophils # 9.9 H 8.2 (1.6-8.9) K/mcL BMP 10/29/17 10/30/17 11:46 04:44 Sodium 133 L 135 L Potassium 4.5 4.3 Chloride 100 102 Carbon Dioxide 26 25 BUN 58 H 54 H Creatinine 2.38 H 2.01 H Glucose 132 H 98 Calcium 8.5 L 8.4 L Liver Function 10/29/17 10/30/17 Range/Units 11:46 04:44 Total Bilirubin 0.5 0.4 (0.3-1.0) mg/dL AST 19 20 (13-39) Units/L ALT 25 25 (7-52) Units/L Alkaline Phosphatase 54 53 (34-104) Units/L Albumin 3.1 L 2.9 L (3.5-5.7) g/dL - ABG Interpretation ABG results: ABG ABG pH 7.33 pH Units (7.32-7.45) 10/15/17 09:03 ABG pCO2 49 mmHg (35-45) H 10/15/17 09:03 ABG pO2 112 mmHg (85-104) H 10/15/17 09:03 ABG O2 Saturation 98 % (95-98) 10/15/17 09:03 PT/INR, D-dimer PT 26.6 Seconds (9.4-12.1) H 10/30/17 04:44 Consult Discharge Plan - Plan Additional Instructions: appt with coumadin clinic oct 27 @ 1030 1. Follow-up with your primary care provider in the next 3-5 days 2. Take all prescriptions as prescribed, any concerns or questions contact her primary care provider. 3. Return to the emergency department if: Referrals: Lokesh Cooper MD [Primary Care Provider] - 10/22/17 1:15 pm Fernando Najera MD [Partnered Physician] - 11/17/17 2:30 pm <Jose Garcia - Last Filed: 10/30/17 18:05> Date of Encounter: 10/30/17 - Assessment and plan (1) Atrial flutter Current Visit: Yes Status: Acute Qualifiers: Atrial flutter type: typical Qualified Code(s): I48.3 - Typical atrial flutter (2) Superficial thrombophlebitis of right upper extremity Current Visit: Yes Status: Acute Assessment and plan: RUE. Warm compresses. (3) CKD (chronic kidney disease) stage 4, GFR 15-29 ml/min Current Visit: Yes Status: Chronic (4) COPD (chronic obstructive pulmonary disease) Current Visit: Yes Status: Chronic Qualifiers: COPD type: unspecified COPD Qualified Code(s): J44.9 - Chronic obstructive pulmonary disease, unspecified (5) HLD (hyperlipidemia) Current Visit: Yes Status: Chronic Qualifiers: Hyperlipidemia type: mixed hyperlipidemia Qualified Code(s): E78.2 - Mixed hyperlipidemia (6) HTN (hypertension) Current Visit: Yes Status: Chronic Qualifiers: Hypertension type: essential hypertension Qualified Code(s): I10 - Essential (primary) hypertension (7) Legally blind Current Visit: Yes Status: Chronic (8) CHF exacerbation Current Visit: Yes Status: Acute Qualifiers: Qualified Code(s): I50.33 - Acute on chronic diastolic (congestive) heart failure - Constitutional Vitals: Temp Pulse Resp BP Pulse Ox 97.7 F 70 16 122/49 98 10/30/17 15:30 10/30/17 15:30 10/30/17 16:12 10/30/17 15:30 10/30/17 16:12 Internal Medicine: Result - Labs CBC & Chem 7: 10/30/17 04:44 10/30/17 04:44 Labs: Short CBC 10/30/17 Range/Units 04:44 WBC 9.6 (4.3-11.1) K/mcL Hgb 8.5 L (11.5-15.4) g/dL Hct 26.5 L (35.3-44.9) % Plt Count 161 (140-400) K/mcL Neutrophils # 8.2 (1.6-8.9) K/mcL BMP 10/30/17 04:44 Sodium 135 L Potassium 4.3 Chloride 102 Carbon Dioxide 25 BUN 54 H Creatinine 2.01 H Glucose 98 Calcium 8.4 L Liver Function 10/30/17 Range/Units 04:44 Total Bilirubin 0.4 (0.3-1.0) mg/dL AST 20 (13-39) Units/L ALT 25 (7-52) Units/L Alkaline Phosphatase 53 (34-104) Units/L Albumin 2.9 L (3.5-5.7) g/dL - ABG Interpretation ABG results: ABG ABG pH 7.33 pH Units (7.32-7.45) 10/15/17 09:03 ABG pCO2 49 mmHg (35-45) H 10/15/17 09:03 ABG pO2 112 mmHg (85-104) H 10/15/17 09:03 ABG O2 Saturation 98 % (95-98) 10/15/17 09:03 PT/INR, D-dimer PT 26.6 Seconds (9.4-12.1) H 10/30/17 04:44 - Impressions Impressions Chest X-Ray 10/30/17 09:42 IMPRESSION: Stable chest. No acute cardiopulmonary disease. D/ / Alfredito Ruiz MD / Alfredito Ruiz MD Interpreting Provider: Alfredito Ruiz MD - Attending Attestation I examined this patient and my medical decision-making was reviewed with the Resident Physician on 10/30/17. I agree with the documented findings, disposition and treatment plan as described except to the extent set forth below. Ms Barber is currently admitted for difficult to control atrial flutter. She remains moderate to high risk due to potential for worsening clinical status. Ms Barber had some arm swelling today - has superficial thrombus. Was going to be discharged and at 1420 developed a nearly 15 second ventricular pause. She was very symptomatic. Coreg has been stopped and amiodarone started by cardiology. She also was concerned about her breathing and repeat CXR is negative. At this time she is feeling somewhat better. Exam alert. Comfortable at this time. Mucus membranes dry Heart irreg - not tachy or jac now Lungs with occ upper airway rhonchi Abd soft I/P 1. Atrial flutter with block 2. Superficial thrombophlebitis R arm Further diagnoses and plan as above.
--- NOTE | 2017-10-30 15:41 | Cardiology Progress Note ---
Date of Encounter: 10/30/17 Time of Encounter: 15:36 Assessment and Plan (1) Atrial fibrillation Current Visit: Yes Status: Acute Per cardiology: -Newly diagnosed atrial fibrillation/flutter, chronicity unclear. Lengthy hospitalization, difficulty with rate control. -Hx of Ross procedure. -Nuclear stress ([place]) 05/2017: negative for ischemia or infarct. -TTE 10/07/17: LVEF 65%, RV mildly dilated with normal function, moderate paravalvular prosthetic AR, mild MR, moderate TR, normal wall motion -Telemetry reviewed with average HR previous 12 hours noted to be 74, atrial fluuter. -Currently on digoxin 0.125mg QOD, cored 12.5 BID. -On coumadin for anticoagulation. - Cardiology re-consulted for atrial flutter with slow ventricular response. HR as low as 21 BPM and 8.5 second pause. - Cardizem stopped and coreg decreased two days ago for bradycardia. - Recommend stopping carvedilol. Add amiodarone 400 mg BID. -Continue to monitor telemetry. Qualifiers: Atrial fibrillation type: persistent Qualified Code(s): I48.1 - Persistent atrial fibrillation (2) Atrial flutter Current Visit: Yes Status: Acute Qualifiers: Atrial flutter type: typical Qualified Code(s): I48.3 - Typical atrial flutter (3) CHF exacerbation Current Visit: Yes Status: Acute Echocardiogram on 01/01/2017 LVEF 60-65% with moderate left ventricular diastolic dysfunction, bioprosthetic aortic valve, moderate aortic regurgitation , mild tricuspid regurgitation, moderate pulmonary regurgitation, and moderate pulmonary hypertension. Echcardiogram on 10/06/2017 demonstrates LVEF of 65%, atypical septal wall motion with postoperative status, indeterminate diastolic function, right ventricle dilation with normal function, moderate paravalvular prosthetic aortic regurgitation, bioprosthetic aortic valve well visualized. Mild mitral regurgitation, moderate tricuspid regurgitation, mild pulmonic regurgitation, mild pulmonary hypertension. -Resolved, continue management per primary team. Qualifiers: Qualified Code(s): I50.33 - Acute on chronic diastolic (congestive) heart failure Discussion w patient/family: The assessment and plan as outlined above was discussed with the patient and/or family members who expressed understanding and agreement. All questions were answered. Thank you for involving us in the care of your patient. Please call with any questions. Subjective Principal diagnosis: Atrial Fibrillation with RVR Interval history: Ms. Rathburn developed atrial flutter with slow ventricular response and 8.5 second pause today. She was noted to have nausea and vomiting after the pause. C /o SOB and azar midsternal chest discomfort with ambulation to the bath room. Objective Vital Signs, Last 4 Hours Temp Pulse Resp BP Pulse Ox 10/30/17 15:30 97.7 F 70 16 122/49 97 General: Conversant, No Apparent Distress HEENT: Atraumatic, Normocephaly, Mucus Membranes Moist Neck: No JVD, Normal carotid pulses Cardiac: Other (Irregularly irregular, 2/6 systolic murmur) Lungs: Normal Breath Sounds, No Wheeze, Rales, Rhonchi Neuro: Alert and responsive, No focal deficits noted Abdomen: Soft, Non-Tender Skin: No rashes noted on visualized skin Musculoskeletal: No Chest Wall Tenderness Extremities: No Clubbing, No Cyanosis, No Edema, Normal Pulses Results 10/30/17 04:44 10/30/17 04:44 Lab Results 10/30/17 10/30/17 10/30/17 04:44 04:44 04:44 WBC 9.6 Hgb 8.5 L Hct 26.5 L Plt Count 161 INR 2.4 Sodium 135 L Potassium 4.3 Chloride 102 Carbon Dioxide 25 BUN 54 H Creatinine 2.01 H Glucose 98 Calcium 8.4 L Total Bilirubin 0.4 AST 20 ALT 25 Alkaline Phosphatase 53 - Imaging and Cardiology Echo: report reviewed Consult Discharge Plan - Plan Additional Instructions: appt with coumadin clinic oct 27 @ 1409 1. Follow-up with your primary care provider in the next 3-5 days 2. Take all prescriptions as prescribed, any concerns or questions contact her primary care provider. 3. Return to the emergency department if: Referrals: Lokesh Cooper MD [Primary Care Provider] - 10/22/17 1:15 pm Fernando Najera MD [Partnered Physician] - 11/17/17 2:30 pm
[2017-10-30] MEDS ORDERED: *HR* Amiodarone 200 MG TABLET PO SCH ×2 (17:30→21:00)
[2017-10-30] MEDS ORDERED: *HR* Warfarin 3 MG TABLET PO SCH ×2 (18:00→21:00)
[2017-10-30] MEDS: Acetaminophen 325 MG TABLET PO PRN (20:35)
[2017-10-30] MEDS: Gabapentin 100 MG CAPSULE PO SCH (20:35)
[2017-10-30] MEDS ORDERED: Warfarin perPT PO PRN (21:00)
[2017-10-31] MEDS: Ipratropium/Albuterol Neb 3 ML IH SCH ×4 (03:45→21:23)
[2017-10-31 07:18] LABS: INR 2.1; Prothrombin Time 22.8 Seconds (9.4-12.1)
--- NOTE | 2017-10-31 08:56 | Internal Med Progress Note ---
<LitaJose Rafael White - Last Filed: 10/31/17 15:22> Date of Encounter: 10/31/17 Time of Encounter: 08:56 - Assessment and plan (1) Chronic atrial fibrillation with rapid ventricular response Current Visit: Yes Status: Acute Assessment and plan: Currently A-Fib CHADS-Vasc score 4 with high risk for embolic stroke. TTE 10/07/17: LVEF 65%, RV mildly dilated with normal function, moderate paravalvular prosthetic AR, mild MR, moderate TR, normal wall motion Patient has had shortness of breath throughout her inpatient stay with bilateral rhonchi in lung bases. Cardiology recommending trans-esophageal echocardiogram for evaluation of prosthetic aVR for severe aortic regurgitation if hypoxemia is continued to be unexplained. - Continued current IV Lasix dose. 10/27/17: Difficulty controlling atrial fibrillation with rapid ventricular rate, cardiology following appreciated recommendations. - Crowd he started digoxin with current heart rate between 80 and 100 - Continued on Coreg 12.5 mg by mouth twice a day - Continued on Cardizem 360 mg CD - Continue anticoagulation with warfarin therapy goal range INR 2-3 - Strict intake and output monitoring 10/28/2017: Atrial fibrillation rate controlled. Heart rate decreased to 40-50 on current rate control. - We will hold Cardizem 360 CD - Continue digoxin - Reduce Cardizem to 6.25mg PO BID - Monitor HR closely 10/29/2017: Atrial fibrillation rate controlled. - Continue to hold Cardizem 360 CD - Continue digoxin - Continue Coreg 6.25mg PO BID - Monitor HR closely 10/30/2017: Atrial fibrillation rate controlled. 14:20 15 second pause with symptomatic patient with spontaneous recover -Cardiology called and patient placed on Amiodarone - Cardizem, coreg discontinued - Continued on Digoxin with next dose scheduled 11/01/2017. Will discuss with Cardiology regarding necessity 10/31/17: Atrial fibrillation rate controlled. - Amiodarone 400mg PO per cardiology. - Motoprolol 12.5 BID (2) Hypertension Current Visit: No Status: Chronic Assessment and plan: Known history of hypertension. Blood pressures controlled - Continue current antihypertensive therapy Qualifiers: Hypertension type: essential hypertension Qualified Code(s): I10 - Essential (primary) hypertension (3) CKD (chronic kidney disease) stage 4, GFR 15-29 ml/min Current Visit: Yes Status: Chronic Assessment and plan: Patient has stage IV chronic kidney disease, creatinine and GFR is stable - continue to avoid nephrotoxic medications and renally dose antibiotics - Monitor intake and output, avoid excess volume (4) DVT prophylaxis Current Visit: Yes Status: Acute Assessment and plan: On Coumadin, therapeutic - Subjective Interval history: Ms. Barber 72-year-old female seen in the patient bedside. She is alert awake interactive in no acute distress. She states that she is feeling well no acute concerns at this time. Looking forward to discharge when she is able. Denies any pain or discomfort in her right upper extremity. - Constitutional Vitals: Temp Pulse Resp BP Pulse Ox 97.8 F 77 18 125/55 96 10/31/17 07:52 10/31/17 07:52 10/31/17 07:52 10/31/17 07:52 10/31/17 07:52 General appearance: Present: cooperative, A&O X 3, pleasant, no acute distress, obese, answers questions appropriately Exam: General: Patient alert, awake, oriented 3, interactive, in no acute distress HEENT: Normocephalic, atraumatic, patient legally blind, slow lateral nystagmus- Baseline, oral mucosa moist, uvula midline, neck supple trachea midline no palpable lymphadenopathy, no thyromegaly. Chest: Symmetric bilateral correlating with respiratory effort, effort nonlabored. Cardiac: Irregularly irregular heart rate and rhythm, Radial pulses 2+ bilateral , posterior tibial and dorsal pedal pulses 2+ bilateral. Respiratory: CTABL Abdomen: Soft, nontender, positive bowel sounds, no palpable masses appreciated on examination Extremities: Symmetric bilateral, bilateral, lower extremities with 1+ pitting edema symmetric bilaterally. Scar secondary to skin graft on right lateral robles , ecchymosis of the distal right lateral/anterior LE. Right upper extremity with trace edema and erythema at his previous EPIV site. Neurologic: No focal deficits appreciated on examination. Face symmetric, muscle strength symmetric bilateral upper and lower extremities. Internal Medicine: Result - Labs CBC & Chem 7: 10/30/17 04:44 10/30/17 04:44 - ABG Interpretation ABG results: ABG ABG pH 7.33 pH Units (7.32-7.45) 10/15/17 09:03 ABG pCO2 49 mmHg (35-45) H 10/15/17 09:03 ABG pO2 112 mmHg (85-104) H 10/15/17 09:03 ABG O2 Saturation 98 % (95-98) 10/15/17 09:03 PT/INR, D-dimer PT 22.8 Seconds (9.4-12.1) H 10/31/17 06:26 - Impressions Impressions Chest X-Ray 10/30/17 09:42 IMPRESSION: Stable chest. No acute cardiopulmonary disease. D/ / Alfredito Ruiz MD / Alfredito Ruiz MD Interpreting Provider: Alfredito Ruiz MD Consult Discharge Plan - Plan Additional Instructions: appt with coumadin clinic oct 27 @ 1030 1. Follow-up with your primary care provider in the next 3-5 days 2. Take all prescriptions as prescribed, any concerns or questions contact her primary care provider. 3. Return to the emergency department if: Referrals: Lokesh Cooper MD [Primary Care Provider] - 10/22/17 1:15 pm Fernando Najera MD [Partnered Physician] - 11/17/17 2:30 pm <Jose Garcia - Last Filed: 10/31/17 17:24> Date of Encounter: 10/31/17 - Assessment and plan (1) Atrial flutter Current Visit: Yes Status: Acute Qualifiers: Atrial flutter type: typical Qualified Code(s): I48.3 - Typical atrial flutter (2) Superficial thrombophlebitis of right upper extremity Current Visit: Yes Status: Acute (3) CKD (chronic kidney disease) stage 4, GFR 15-29 ml/min Current Visit: Yes Status: Chronic (4) COPD (chronic obstructive pulmonary disease) Current Visit: Yes Status: Chronic Qualifiers: COPD type: unspecified COPD Qualified Code(s): J44.9 - Chronic obstructive pulmonary disease, unspecified (5) HLD (hyperlipidemia) Current Visit: Yes Status: Chronic Qualifiers: Hyperlipidemia type: mixed hyperlipidemia Qualified Code(s): E78.2 - Mixed hyperlipidemia (6) HTN (hypertension) Current Visit: Yes Status: Chronic Qualifiers: Hypertension type: essential hypertension Qualified Code(s): I10 - Essential (primary) hypertension (7) Legally blind Current Visit: Yes Status: Chronic - Constitutional Vitals: Temp Pulse Resp BP Pulse Ox 98.7 F 78 17 109/63 98 10/31/17 15:10 10/31/17 15:10 10/31/17 15:24 10/31/17 15:10 10/31/17 15:24 Internal Medicine: Result - Labs CBC & Chem 7: 10/30/17 04:44 10/30/17 04:44 - ABG Interpretation ABG results: ABG ABG pH 7.33 pH Units (7.32-7.45) 10/15/17 09:03 ABG pCO2 49 mmHg (35-45) H 10/15/17 09:03 ABG pO2 112 mmHg (85-104) H 10/15/17 09:03 ABG O2 Saturation 98 % (95-98) 10/15/17 09:03 PT/INR, D-dimer PT 22.8 Seconds (9.4-12.1) H 10/31/17 06:26 - Attending Attestation I examined this patient and my medical decision-making was reviewed with the Resident Physician on 10/31/17. I agree with the documented findings, disposition and treatment plan as described except to the extent set forth below. Ms Barber is currently admitted with atrial flutter that is difficult to control. She remains moderate to high risk due to potential for worsening clinical status. Ms Barber is having some tachycardia. She denies CP or SOB. No fever or chills. She actually is feeling a little better. Exam alert. Comfortable Mucus membranes dry Heart irreg Lungs diminished Abd soft I/P 1. A flutter - on amiodarone and metoprolol Hopeful d/c early week. Further diagnoses and plan as above.
[2017-10-31] MEDS: Loratadine 10 MG TABLET PO SCH (09:15)
[2017-10-31] MEDS: Acetaminophen 325 MG TABLET PO PRN ×2 (09:15→21:46)
[2017-10-31] MEDS: Fluticasone Propionate Nasal 50 MCG/SPRAY BOTTLE NS SCH (09:15)
[2017-10-31] MEDS: Aspirin Enteric Coated 81 MG Tablet PO SCH (09:16)
[2017-10-31] MEDS: Nystatin POWDER 30 GM BOTTLE TP SCH ×2 (09:16→21:49)
[2017-10-31] MEDS: Budesonide/Formoterol 160/4.5 MDI IH SCH ×2 (11:31→21:23)
--- NOTE | 2017-10-31 13:36 | Cardiology Progress Note ---
Date of Encounter: 10/31/17 Time of Encounter: 10:30 Assessment and Plan (1) Atrial fibrillation Current Visit: Yes Status: Acute Per cardiology: -Newly diagnosed atrial fibrillation/flutter, chronicity unclear. Lengthy hospitalization, difficulty with rate control. -Hx of Ross procedure. -Nuclear stress ([place]) 05/2017: negative for ischemia or infarct. -TTE 10/07/17: LVEF 65%, RV mildly dilated with normal function, moderate paravalvular prosthetic AR, mild MR, moderate TR, normal wall motion -Telemetry reviewed with average HR previous 12 hours noted to be 79, atrial fluuter. No recurrent pauses or bradycardia. Patient had 8.5 second pause yesterday and cardiology re-consulted. -Currently on amiodarone gtt. Low dose bb started. Digoxin discontinued. -On coumadin for anticoagulation. -Recommend continuing amiodarone 400 mg BID for one week, and then 400 mg daily for one week, and then 200 mg daily. Please call with questions/ concerns. Qualifiers: Atrial fibrillation type: persistent Qualified Code(s): I48.1 - Persistent atrial fibrillation (2) Atrial flutter Current Visit: Yes Status: Acute Qualifiers: Atrial flutter type: typical Qualified Code(s): I48.3 - Typical atrial flutter (3) Diastolic CHF, acute on chronic Current Visit: Yes Status: Resolved Acute on chronic systolic CHF on admission. Now resolved. TTE 10/07/17: LVEF 65%, RV mildly dilated with normal function, moderate paravalvular prosthetic AR, mild MR, moderate TR, normal wall motion. Restart maintenance lasix. Continue low sodium diet and daily weights. Discussion w patient/family: The assessment and plan as outlined above was discussed with the patient and/or family members who expressed understanding and agreement. All questions were answered. Thank you for involving us in the care of your patient. Please call with any questions. Subjective Principal diagnosis: Atrial Fibrillation with RVR Interval history: Ms. Barber is sitting in her chair. No events overnight noted. Objective Vital Signs, Last 4 Hours Temp Pulse Resp BP Pulse Ox 10/31/17 11:31 15 98 10/31/17 11:04 97.7 F 73 16 108/52 96 General: Conversant, No Apparent Distress HEENT: Atraumatic, Normocephaly, Mucus Membranes Moist Neck: No JVD, Normal carotid pulses Cardiac: Other (Irregularly irregular) Lungs: Normal Breath Sounds, No Wheeze, Rales, Rhonchi Neuro: Alert and responsive, No focal deficits noted Abdomen: Soft, Non-Tender Skin: No rashes noted on visualized skin Musculoskeletal: No Chest Wall Tenderness Extremities: No Clubbing, No Cyanosis, No Edema, Normal Pulses Results 10/30/17 04:44 10/30/17 04:44 Lab Results 10/31/17 06:26 INR 2.1 - EKG Interpretation EKG results cardiology: personally reviewed Consult Discharge Plan - Plan Additional Instructions: appt with coumadin clinic oct 27 @ 1037 1. Follow-up with your primary care provider in the next 3-5 days 2. Take all prescriptions as prescribed, any concerns or questions contact her primary care provider. 3. Return to the emergency department if: Referrals: Lokesh Cooper MD [Primary Care Provider] - 10/22/17 1:15 pm Fernando Najera MD [Partnered Physician] - 11/17/17 2:30 pm
[2017-10-31] MEDS: Furosemide 20 MG TABLET PO SCH (14:07)
[2017-10-31] MEDS: *HR* Warfarin 2 MG TABLET PO SCH (18:03)
[2017-10-31] MEDS: Gabapentin 100 MG CAPSULE PO SCH (21:43)
[2017-10-31] MEDS: *HR* Amiodarone 200 MG TABLET PO SCH (21:43)
[2017-10-31] MEDS: Benzonatate 100 MG CAPSULE PO PRN (21:46)
[2017-11-01] MEDS: Ipratropium/Albuterol Neb 3 ML IH SCH ×4 (03:49→21:06)
[2017-11-01 07:53] LABS: INR 2.3; Prothrombin Time 24.7 Seconds (9.4-12.1)
[2017-11-01 08:07] LABS: Basophils % 0.1 %; Eosinophils # 0.1 K/mcL (0.0-0.6); Eosinophils % 1.3 %; Hematocrit 26.9 % (35.3-44.9); Hemoglobin 8.2 g/dL (11.5-15.4); Immature Granulocytes % 0.6 % (0-4); Lymphocytes # 0.7 K/mcL (0.6-4.6); Lymphocytes % 7.8 %; Mean Corpuscular HGB Conc 30.5 g/dL (31.6-35.5); Mean Corpuscular Hemoglobin 27.6 pg (28.0-33.3); Mean Corpuscular Volume 90.6 fL (83.0-100.0); Mean Platelet Volume 10.3 fL (9.4-12.4); Monocytes # 0.4 K/mcL (0.0-1.3); Monocytes % 4.3 %; Neutrophils # 7.4 K/mcL (1.6-8.9); Platelet Count 173 K/mcL (140-400); Red Blood Count 2.97 M/mcL (3.82-4.97); Red Cell Distribution Width 14.8 % (11.5-14.5); Segmented Neutrophils % 85.9 %
[2017-11-01 08:47] LABS: Albumin 2.9 g/dL (3.5-5.7); Bilirubin,Total 0.4 mg/dL (0.3-1.0); Calcium 8.1 mg/dL (8.6-10.3); Potassium 4.3 mEq/L (3.5-5.1); Total Protein 5.9 g/dL (6.4-8.9)
[2017-11-01] MEDS: Acetaminophen 325 MG TABLET PO PRN ×2 (09:47→20:10)
[2017-11-01] MEDS: Nystatin POWDER 30 GM BOTTLE TP SCH ×2 (09:48→20:18)
[2017-11-01] MEDS: Loratadine 10 MG TABLET PO SCH (09:48)
[2017-11-01] MEDS: Fluticasone Propionate Nasal 50 MCG/SPRAY BOTTLE NS SCH (09:48)
[2017-11-01] MEDS: *HR* Amiodarone 200 MG TABLET PO SCH ×2 (09:48→20:10)
[2017-11-01] MEDS: Furosemide 20 MG TABLET PO SCH (09:48)
[2017-11-01] MEDS: Aspirin Enteric Coated 81 MG Tablet PO SCH (09:48)
[2017-11-01] MEDS: Budesonide/Formoterol 160/4.5 MDI IH SCH ×2 (10:46→21:06)
--- NOTE | 2017-11-01 12:14 | Internal Med Progress Note ---
<PjalliealbertJose Rafael White - Last Filed: 11/01/17 12:12> Date of Encounter: 11/01/17 Time of Encounter: 09:30 - Assessment and plan (1) Chronic atrial fibrillation with rapid ventricular response Current Visit: Yes Status: Acute Assessment and plan: Currently A-Fib CHADS-Vasc score 4 with high risk for embolic stroke. TTE 10/07/17: LVEF 65%, RV mildly dilated with normal function, moderate paravalvular prosthetic AR, mild MR, moderate TR, normal wall motion Patient has had shortness of breath throughout her inpatient stay with bilateral rhonchi in lung bases. Cardiology recommending trans-esophageal echocardiogram for evaluation of prosthetic aVR for severe aortic regurgitation if hypoxemia is continued to be unexplained. - Continued current IV Lasix dose. 10/27/17: Difficulty controlling atrial fibrillation with rapid ventricular rate, cardiology following appreciated recommendations. - Crowd he started digoxin with current heart rate between 80 and 100 - Continued on Coreg 12.5 mg by mouth twice a day - Continued on Cardizem 360 mg CD - Continue anticoagulation with warfarin therapy goal range INR 2-3 - Strict intake and output monitoring 10/28/2017: Atrial fibrillation rate controlled. Heart rate decreased to 40-50 on current rate control. - We will hold Cardizem 360 CD - Continue digoxin - Reduce Cardizem to 6.25mg PO BID - Monitor HR closely 10/29/2017: Atrial fibrillation rate controlled. - Continue to hold Cardizem 360 CD - Continue digoxin - Continue Coreg 6.25mg PO BID - Monitor HR closely 10/30/2017: Atrial fibrillation rate controlled. 14:20 15 second pause with symptomatic patient with spontaneous recover -Cardiology called and patient placed on Amiodarone - Cardizem, coreg discontinued - Continued on Digoxin with next dose scheduled 11/01/2017. Will discuss with Cardiology regarding necessity 10/31/17: Atrial fibrillation rate controlled. - Amiodarone 400mg PO per cardiology. - Motoprolol 12.5 BID 11/01/2017: Atrial fibrillation rate controlled. - Amiodarone 400mg PO per cardiology. - Motoprolol 12.5 BID - Continue Warfarin dose, INR theraputic - possible discharge (2) Hypertension Current Visit: No Status: Chronic Assessment and plan: Known history of hypertension. Blood pressures controlled - Continue current antihypertensive therapy Qualifiers: Hypertension type: essential hypertension Qualified Code(s): I10 - Essential (primary) hypertension (3) CKD (chronic kidney disease) stage 4, GFR 15-29 ml/min Current Visit: Yes Status: Chronic Assessment and plan: Patient has stage IV chronic kidney disease, creatinine and GFR is stable - continue to avoid nephrotoxic medications and renally dose antibiotics - Monitor intake and output, avoid excess volume (4) DVT prophylaxis Current Visit: Yes Status: Acute Assessment and plan: On Coumadin, therapeutic - Subjective Interval history: Ms. Barber 72-year-old female seen in the patient bedside. She is alert awake interactive in no acute distress. She states that she is feeling well no acute concerns at this time. Looking forward to discharge when she is able. Continues to deny any pain or discomfort in her right upper extremity. - Constitutional Vitals: Temp Pulse Resp BP Pulse Ox 98.2 F 99 16 115/69 98 11/01/17 08:02 11/01/17 07:37 11/01/17 10:47 11/01/17 07:37 11/01/17 10:47 General appearance: Present: cooperative, A&O X 3, pleasant, no acute distress, obese, answers questions appropriately Exam: General: Patient alert, awake, oriented 3, interactive, in no acute distress HEENT: Normocephalic, atraumatic, patient legally blind, slow lateral nystagmus- Baseline, oral mucosa moist, uvula midline, neck supple trachea midline no palpable lymphadenopathy, no thyromegaly. Chest: Symmetric bilateral correlating with respiratory effort, effort nonlabored. Cardiac: Irregularly irregular heart rate and rhythm, Radial pulses 2+ bilateral , posterior tibial and dorsal pedal pulses 2+ bilateral. Respiratory: CTABL Abdomen: Soft, nontender, positive bowel sounds, no palpable masses appreciated on examination Extremities: Symmetric bilateral, bilateral, lower extremities with 1+ pitting edema symmetric bilaterally. Scar secondary to skin graft on right lateral robles , ecchymosis of the distal right lateral/anterior LE. Neurologic: No focal deficits appreciated on examination. Face symmetric, muscle strength symmetric bilateral upper and lower extremities. Internal Medicine: Result - Labs CBC & Chem 7: 11/01/17 07:30 11/01/17 07:30 Labs: Short CBC 11/01/17 Range/Units 07:30 WBC 8.6 (4.3-11.1) K/mcL Hgb 8.2 L (11.5-15.4) g/dL Hct 26.9 L (35.3-44.9) % Plt Count 173 (140-400) K/mcL Neutrophils # 7.4 (1.6-8.9) K/mcL BMP 11/01/17 07:30 Sodium 139 Potassium 4.3 Chloride 105 Carbon Dioxide 27 BUN 41 H Creatinine 1.82 H Glucose 93 Calcium 8.1 L Liver Function 11/01/17 Range/Units 07:30 Total Bilirubin 0.4 (0.3-1.0) mg/dL AST 19 (13-39) Units/L ALT 27 (7-52) Units/L Alkaline Phosphatase 56 (34-104) Units/L Albumin 2.9 L (3.5-5.7) g/dL - ABG Interpretation ABG results: ABG ABG pH 7.33 pH Units (7.32-7.45) 10/15/17 09:03 ABG pCO2 49 mmHg (35-45) H 10/15/17 09:03 ABG pO2 112 mmHg (85-104) H 10/15/17 09:03 ABG O2 Saturation 98 % (95-98) 10/15/17 09:03 PT/INR, D-dimer PT 24.7 Seconds (9.4-12.1) H 11/01/17 07:30 Consult Discharge Plan - Plan Additional Instructions: appt with coumadin clinic oct 27 @ 1030 1. Follow-up with your primary care provider in the next 3-5 days 2. Take all prescriptions as prescribed, any concerns or questions contact her primary care provider. 3. Return to the emergency department if: Referrals: Lokesh Cooper MD [Primary Care Provider] - 10/22/17 1:15 pm Fernando Najera MD [Partnered Physician] - 11/17/17 2:30 pm <Jose Garcia - Last Filed: 11/01/17 18:45> Date of Encounter: 11/01/17 - Assessment and plan (1) Atrial flutter Current Visit: Yes Status: Acute Qualifiers: Atrial flutter type: typical Qualified Code(s): I48.3 - Typical atrial flutter (2) Superficial thrombophlebitis of right upper extremity Current Visit: Yes Status: Acute (3) CKD (chronic kidney disease) stage 4, GFR 15-29 ml/min Current Visit: Yes Status: Chronic (4) COPD (chronic obstructive pulmonary disease) Current Visit: Yes Status: Chronic Qualifiers: COPD type: unspecified COPD Qualified Code(s): J44.9 - Chronic obstructive pulmonary disease, unspecified (5) HLD (hyperlipidemia) Current Visit: Yes Status: Chronic Qualifiers: Hyperlipidemia type: mixed hyperlipidemia Qualified Code(s): E78.2 - Mixed hyperlipidemia (6) HTN (hypertension) Current Visit: Yes Status: Chronic Qualifiers: Hypertension type: essential hypertension Qualified Code(s): I10 - Essential (primary) hypertension (7) Legally blind Current Visit: Yes Status: Chronic - Constitutional Vitals: Temp Pulse Resp BP Pulse Ox 97.7 F 74 16 109/51 94 11/01/17 16:24 11/01/17 16:24 11/01/17 16:24 11/01/17 16:24 11/01/17 16:24 Internal Medicine: Result - Labs CBC & Chem 7: 11/01/17 07:30 11/01/17 07:30 Labs: Short CBC 11/01/17 Range/Units 07:30 WBC 8.6 (4.3-11.1) K/mcL Hgb 8.2 L (11.5-15.4) g/dL Hct 26.9 L (35.3-44.9) % Plt Count 173 (140-400) K/mcL Neutrophils # 7.4 (1.6-8.9) K/mcL BMP 11/01/17 07:30 Sodium 139 Potassium 4.3 Chloride 105 Carbon Dioxide 27 BUN 41 H Creatinine 1.82 H Glucose 93 Calcium 8.1 L Liver Function 11/01/17 Range/Units 07:30 Total Bilirubin 0.4 (0.3-1.0) mg/dL AST 19 (13-39) Units/L ALT 27 (7-52) Units/L Alkaline Phosphatase 56 (34-104) Units/L Albumin 2.9 L (3.5-5.7) g/dL - ABG Interpretation ABG results: ABG ABG pH 7.33 pH Units (7.32-7.45) 10/15/17 09:03 ABG pCO2 49 mmHg (35-45) H 10/15/17 09:03 ABG pO2 112 mmHg (85-104) H 10/15/17 09:03 ABG O2 Saturation 98 % (95-98) 10/15/17 09:03 PT/INR, D-dimer PT 24.7 Seconds (9.4-12.1) H 11/01/17 07:30 - Attending Attestation I examined this patient and my medical decision-making was reviewed with the Resident Physician on 11/01/17. I agree with the documented findings, disposition and treatment plan as described except to the extent set forth below. Ms Barber is currently admitted for atrial flutter and needing rate control She remains moderate risk at this time. Ms Barber feels OK. No new issues. No fever or chills. No CP or SOB. Exam alert Comfortable Mucus membranes dry Heart irreg Lungs clear I/P 1. A flutter Further diagnoses and plan as above.
[2017-11-01] MEDS: *HR* Warfarin 2 MG TABLET PO SCH (17:46)
[2017-11-01] MEDS: Gabapentin 100 MG CAPSULE PO SCH (20:10)
[2017-11-01] MEDS: Benzonatate 100 MG CAPSULE PO PRN (20:10)
[2017-11-02] MEDS: Ipratropium/Albuterol Neb 3 ML IH SCH ×4 (03:40→22:03)
[2017-11-02 06:49] LABS: INR 2.5; Prothrombin Time 27.7 Seconds (9.4-12.1)
--- NOTE | 2017-11-02 08:34 | Discharge Summary ---
Date of Encounter: 11/02/17 Time of Encounter: 08:31 - Discharge Diagnosis (1) Acute respiratory failure with hypoxia Priority: Primary Status: Resolved (2) Diastolic CHF, acute on chronic Priority: Primary Status: Resolved (3) Atrial flutter Priority: Primary Status: Chronic Qualifiers: Atrial flutter type: typical Qualified Code(s): I48.3 - Typical atrial flutter (4) Superficial thrombophlebitis of right upper extremity Priority: Secondary Status: Resolved (5) CKD (chronic kidney disease) stage 4, GFR 15-29 ml/min Priority: Secondary Status: Chronic (6) COPD (chronic obstructive pulmonary disease) Priority: Secondary Status: Chronic Qualifiers: COPD type: unspecified COPD Qualified Code(s): J44.9 - Chronic obstructive pulmonary disease, unspecified (7) HLD (hyperlipidemia) Priority: Secondary Status: Chronic Qualifiers: Hyperlipidemia type: mixed hyperlipidemia Qualified Code(s): E78.2 - Mixed hyperlipidemia (8) HTN (hypertension) Priority: Secondary Status: Chronic Qualifiers: Hypertension type: essential hypertension Qualified Code(s): I10 - Essential (primary) hypertension (9) Legally blind Priority: Secondary Status: Chronic (10) GERD (gastroesophageal reflux disease) Priority: Secondary Status: Chronic Qualifiers: Esophagitis presence: without esophagitis Qualified Code(s): K21.9 - Gastro -esophageal reflux disease without esophagitis (11) Anemia Priority: Secondary Status: Chronic Qualifiers: Anemia type: other cause Other causes of anemia: chronic disease, other Qualified Code(s): D63.8 - Anemia in other chronic diseases classified elsewhere (12) History of subdural hematoma (post traumatic) Priority: Secondary Status: Resolved - Discharge Medications Prescriptions: Amiodarone [Cordarone] 400 mg PO BID #75 tablet Benzonatate [Tessalon] 100 mg PO TID PRN #60 capsule PRN Reason: Cough Metoprolol [Lopressor] 12.5 mg PO BID #60 tablet Warfarin [Coumadin] 1.5 mg PO 1800 #90 tablet Home Medications: Cyclosporine [Restasis] 1 drop BOTH EYES BID 04/30/15 [History] Fluticasone Propionate [Flovent Diskus] 2 puff IH BID 04/30/15 [History] Isosorbide MONOnitrate [Isosorbide Mononitrate ER] 60 mg PO DAILY 04/30/15 [ History] Potassium Chloride 20 meq PO DAILY 06/19/16 [History] Calcitriol [Rocaltrol] 0.25 mcg PO DAILY 03/20/17 [History] Furosemide [Lasix] 40 mg PO DAILY 03/20/17 [History] Azelastine HCl 1 drop OP BID 07/20/17 [History] Fluticasone/Vilanterol [Breo Ellipta 100-25 Mcg INH] 1 each IH DAILY 07/20/17 [ History] Gabapentin [Neurontin] 100 mg PO HS 07/20/17 [History] Loratadine [Claritin] 10 mg PO DAILY 07/20/17 [History] Nystatin POWDER [Nystop] 1 appl TP BID 07/20/17 [History] Tamsulosin [Flomax] 0.4 mg PO DAILY 07/20/17 [History] Albuterol Sulfate [Albuterol Inhaler] 2 puff IH Q4HR PRN 08/27/17 [History] Albuterol Neb [AccuNeb] 0.63 mg IH Q12H PRN 10/06/17 [History] Atorvastatin Calcium [Lipitor] 20 mg PO HS 10/06/17 [History] Esomeprazole Magnesium [Nexium] 40 mg PO DAILY 10/06/17 [History] Guaifenesin [Mucinex] 600 mg PO Q12H PRN 10/06/17 [History] Amiodarone [Cordarone] 400 mg PO BID #75 tablet 11/02/17 [Rx] Aspirin Enteric Coated [Aspirin EC] 81 mg PO DAILY tablet. 11/02/17 [Rx] Benzonatate [Tessalon] 100 mg PO TID PRN #60 capsule 11/02/17 [Rx] GuaiFENesin/Dextromethorphan [Robitussin/Dm] 10 ml PO Q6HR PRN udc 11/02/17 [Rx ] Metoprolol [Lopressor] 12.5 mg PO BID #60 tablet 11/02/17 [Rx] Warfarin [Coumadin] 1.5 mg PO 1800 #90 tablet 11/02/17 [Rx] Allergies/Adverse Reactions: 3 Allergy/AdvReac Type Severity Reaction Status Date / Time ciprofloxacin [From Cipro] Allergy Hives Verified 08/27/17 11:02 meperidine [From Demerol] AdvReac Vomiting Verified 08/27/17 11:02 Procedures/tests Complete & Pending: Procedures Performed prior 72 hours Category Date Time Status EV venous imaging UE RT Routine Y 10/30/17 07:45 Completed Date of admission: 10/06/17 16:24 Primary care physician: Lokesh Cooper MD Consults: 10/06/17 17:15 Consult to Nutrition [CONS] Routine Comment: Consulting Provider: [facility]UTRITION Reason for Dietary Consult: PO Supplementation Consult to [facility] [CONS] Routine Reason for SW Consult: Possible need for home care 10/06/17 17:30 Consult to Occupational Therapy [CONS] Routine Comment: Evaluate, develop and implement POC Reason for Consult: Patient reports she is unsteady on her feet when ambulating. States she is able to use walker but has difficulty. Please assess patient for ambulation strength, stability, safety, and for possible home assistive needs for post- discharge planning. 10/06/17 17:31 Consult to Physical Therapy [CONS] Routine Comment: Evaluate, develop and implement POC Reason for Consult: Patient reports she is unsteady on her feet when ambulating. States she is able to use walker but has difficulty. Please assess patient for ambulation strength, stability, safety, and for possible home assistive needs for post- discharge planning. 10/06/17 17:45 Consult to Wound Care [CONS] Routine Reason for Consult: Patient has wound on RLE that will require wound care recommendations for daily care. Call Completed: No 10/06/17 17:48 Consult to Cardiology [CONS] Routine Comment: Consulting Provider: [facility] Reason for Consult: Patient is being admitted w/CHF exacerbation and has new onset of atrial flutter. Denies previous hx. Pt. also reports right-sided chest pain today w/radiation to right neck. Initial troponin <0.03. Will trend x2. Echocardiogram ordered. Pt. has hx of Ross procedure, cardiomyopathy, valvular heart disease, HLD , and HTN. Call Completed: Yes 10/08/17 13:50 Consult to Neurology [CONS] Routine Consulting Provider: Neurology [facility] Reason for Consult: Patient with recent intracraniel bleed/now with new onset atrial fibrillation. Trying to assess need for anti-coagulation with history of fall/ blindness and risk for further head trauma. Call Completed: No 10/25/17 07:15 Consult to Cardiology [CONS] Routine Comment: Consulting Provider: [facility] Reason for Consult: per hospitalist, layla-fib rvr Call Completed: Yes Discharging clinician: Jose Garcia Anticipated date of discharge: 11/02/17 - Patient Status Disposition: Transfer SNF Condition: Fair Functional capacity at discharge: uses cane/walker Overall status at discharge: patient is progressing back to baseline - Discharge Instructions Follow Up With: Lokesh Cooper MD [Primary Care Provider] - 11/05/17 2:45 pm Fernando Najera MD [Partnered Physician] - 11/17/17 2:30 pm Additional Instructions: appt with coumadin clinic oct 27 @ 1030 1. Follow-up with your primary care provider in the next 3-5 days 2. Take all prescriptions as prescribed, any concerns or questions contact her primary care provider. 3. Return to the emergency department if: - Diet and Activity Activity: increase activity as tolerated Diet: low fat, low cholesterol, low salt diet Hospital course: Ms. Barber is a 72 year old female - Time Spent with Patient Total time spent providing and/or coordinating discharge services: - Constitutional Vitals: Temp Pulse Resp BP Pulse Ox 98.8 F 92 17 144/78 94 11/02/17 08:10 11/02/17 08:10 11/02/17 08:10 11/02/17 08:10 11/02/17 08:10 General appearance: Present: cooperative, A&O X 3, pleasant, no acute distress, obese, answers questions appropriately
--- NOTE | 2017-11-02 08:51 | Physician Discharge Referral ---
Home Health/Hosp Referral Info Transfer to: Home Health Provider in Charge Post Discharge: PCP - Diagnosis (1) Acute respiratory failure with hypoxia Priority: Primary Status: Resolved (2) Diastolic CHF, acute on chronic Priority: Primary Status: Resolved (3) Atrial flutter Priority: Primary Status: Chronic (4) Superficial thrombophlebitis of right upper extremity Priority: Secondary Status: Resolved (5) CKD (chronic kidney disease) stage 4, GFR 15-29 ml/min Priority: Secondary Status: Chronic (6) COPD (chronic obstructive pulmonary disease) Priority: Secondary Status: Chronic (7) HLD (hyperlipidemia) Priority: Secondary Status: Chronic (8) HTN (hypertension) Priority: Secondary Status: Chronic (9) Legally blind Priority: Secondary Status: Chronic (10) GERD (gastroesophageal reflux disease) Priority: Secondary Status: Chronic (11) Anemia Priority: Secondary Status: Chronic (12) History of subdural hematoma (post traumatic) Priority: Secondary Status: Resolved - Respiratory Orders None Smoking Cessation: Smoking cessation has been advised. For more information, call the [place] Tobacco Quit Line at 2-322-TXZC-NOW. - Diet/Nutrition Diet/Nutrition Orders: No Added Salt (MADELEINE), Cardiac - Activity Activity Orders: Up ad hollie - Services Needed Following services are medically necessary services: Nursing, Physical Therapy, Occupational Therapy - Transfer Medications Prescriptions: Amiodarone [Cordarone] 400 mg PO BID #75 tablet Benzonatate [Tessalon] 100 mg PO TID PRN #60 capsule PRN Reason: Cough Metoprolol [Lopressor] 12.5 mg PO BID #60 tablet Warfarin [Coumadin] 1.5 mg PO 1800 #90 tablet Home Medications: Cyclosporine [Restasis] 1 drop BOTH EYES BID 04/30/15 [History] Fluticasone Propionate [Flovent Diskus] 2 puff IH BID 04/30/15 [History] Isosorbide MONOnitrate [Isosorbide Mononitrate ER] 60 mg PO DAILY 04/30/15 [ History] Potassium Chloride 20 meq PO DAILY 06/19/16 [History] Calcitriol [Rocaltrol] 0.25 mcg PO DAILY 03/20/17 [History] Furosemide [Lasix] 40 mg PO DAILY 03/20/17 [History] Azelastine HCl 1 drop OP BID 07/20/17 [History] Fluticasone/Vilanterol [Breo Ellipta 100-25 Mcg INH] 1 each IH DAILY 07/20/17 [ History] Gabapentin [Neurontin] 100 mg PO HS 07/20/17 [History] Loratadine [Claritin] 10 mg PO DAILY 07/20/17 [History] Nystatin POWDER [Nystop] 1 appl TP BID 07/20/17 [History] Tamsulosin [Flomax] 0.4 mg PO DAILY 07/20/17 [History] Albuterol Sulfate [Albuterol Inhaler] 2 puff IH Q4HR PRN 08/27/17 [History] Albuterol Neb [AccuNeb] 0.63 mg IH Q12H PRN 10/06/17 [History] Atorvastatin Calcium [Lipitor] 20 mg PO HS 10/06/17 [History] Esomeprazole Magnesium [Nexium] 40 mg PO DAILY 10/06/17 [History] Guaifenesin [Mucinex] 600 mg PO Q12H PRN 10/06/17 [History] Amiodarone [Cordarone] 400 mg PO BID #75 tablet 11/02/17 [Rx] Aspirin Enteric Coated [Aspirin EC] 81 mg PO DAILY tablet. 11/02/17 [Rx] Benzonatate [Tessalon] 100 mg PO TID PRN #60 capsule 11/02/17 [Rx] GuaiFENesin/Dextromethorphan [Robitussin/Dm] 10 ml PO Q6HR PRN udc 11/02/17 [Rx ] Metoprolol [Lopressor] 12.5 mg PO BID #60 tablet 11/02/17 [Rx] Warfarin [Coumadin] 1.5 mg PO 1800 #90 tablet 11/02/17 [Rx] Allergies/Adverse Reactions: 3 Allergy/AdvReac Type Severity Reaction Status Date / Time ciprofloxacin [From Cipro] Allergy Hives Verified 08/27/17 11:02 meperidine [From Demerol] AdvReac Vomiting Verified 08/27/17 11:02 Certification: Further, I certify that my clinical findings support that this patient is homebound (i.e. absences from home require considerable and taxing effort and are for medical reasons or sabianism services or infrequently or short duration when for other reasons) because: Homebound Reason: Patient requires assistance of a person or device to safely leave home, Leaving home requires considerable and taxing effort due to condition Attestation: My signature below is to certify that this patient is under my care and that I, or nurse practitioner, or a physician's educational program assistant working with me, has a face-to -face encounter with this patient.
[2017-11-02] MEDS: Budesonide/Formoterol 160/4.5 MDI IH SCH ×2 (11:16→22:03)
[2017-11-02] MEDS: Furosemide 20 MG TABLET PO SCH (11:29)
[2017-11-02] MEDS: *HR* Amiodarone 200 MG TABLET PO SCH ×2 (11:29→22:06)
[2017-11-02] MEDS: Loratadine 10 MG TABLET PO SCH (11:29)
[2017-11-02] MEDS: Aspirin Enteric Coated 81 MG Tablet PO SCH (11:29)
[2017-11-02] MEDS: Fluticasone Propionate Nasal 50 MCG/SPRAY BOTTLE NS SCH (11:30)
[2017-11-02] MEDS: Nystatin POWDER 30 GM BOTTLE TP SCH ×2 (11:30→22:10)
--- NOTE | 2017-11-02 15:27 | Physician Discharge Referral ---
ExtendedCare Referral Info Transfer To: [facility] Provider in Charge after Transfer: PCP Institutional Level of Care: Skilled - Diagnosis (1) Acute respiratory failure with hypoxia Priority: Primary Status: Resolved (2) Diastolic CHF, acute on chronic Priority: Primary Status: Resolved (3) Atrial flutter Priority: Primary Status: Chronic (4) Superficial thrombophlebitis of right upper extremity Priority: Secondary Status: Resolved (5) CKD (chronic kidney disease) stage 4, GFR 15-29 ml/min Priority: Secondary Status: Chronic (6) COPD (chronic obstructive pulmonary disease) Priority: Secondary Status: Chronic (7) HLD (hyperlipidemia) Priority: Secondary Status: Chronic (8) HTN (hypertension) Priority: Secondary Status: Chronic (9) Legally blind Priority: Secondary Status: Chronic (10) GERD (gastroesophageal reflux disease) Priority: Secondary Status: Chronic (11) Anemia Priority: Secondary Status: Chronic (12) History of subdural hematoma (post traumatic) Priority: Secondary Status: Resolved Expected Duration of Placement: Less than 30 days Prognosis: Fair Aware of Diagnosis: Patient, Family Aware of Prognosis: Patient, Family - Transfer Medications Prescriptions: Amiodarone [Cordarone] 400 mg PO BID #75 tablet Benzonatate [Tessalon] 100 mg PO TID PRN #60 capsule PRN Reason: Cough Metoprolol [Lopressor] 12.5 mg PO BID #60 tablet Warfarin [Coumadin] 1.5 mg PO 1800 #90 tablet Home Medications: Cyclosporine [Restasis] 1 drop BOTH EYES BID 04/30/15 [History] Fluticasone Propionate [Flovent Diskus] 2 puff IH BID 04/30/15 [History] Isosorbide MONOnitrate [Isosorbide Mononitrate ER] 60 mg PO DAILY 04/30/15 [ History] Potassium Chloride 20 meq PO DAILY 06/19/16 [History] Calcitriol [Rocaltrol] 0.25 mcg PO DAILY 03/20/17 [History] Furosemide [Lasix] 40 mg PO DAILY 03/20/17 [History] Azelastine HCl 1 drop OP BID 07/20/17 [History] Fluticasone/Vilanterol [Breo Ellipta 100-25 Mcg INH] 1 each IH DAILY 07/20/17 [ History] Gabapentin [Neurontin] 100 mg PO HS 07/20/17 [History] Loratadine [Claritin] 10 mg PO DAILY 07/20/17 [History] Nystatin POWDER [Nystop] 1 appl TP BID 07/20/17 [History] Tamsulosin [Flomax] 0.4 mg PO DAILY 07/20/17 [History] Albuterol Sulfate [Albuterol Inhaler] 2 puff IH Q4HR PRN 08/27/17 [History] Albuterol Neb [AccuNeb] 0.63 mg IH Q12H PRN 10/06/17 [History] Atorvastatin Calcium [Lipitor] 20 mg PO HS 10/06/17 [History] Esomeprazole Magnesium [Nexium] 40 mg PO DAILY 10/06/17 [History] Guaifenesin [Mucinex] 600 mg PO Q12H PRN 10/06/17 [History] Amiodarone [Cordarone] 400 mg PO BID #75 tablet 11/02/17 [Rx] Aspirin Enteric Coated [Aspirin EC] 81 mg PO DAILY tablet. 11/02/17 [Rx] Benzonatate [Tessalon] 100 mg PO TID PRN #60 capsule 11/02/17 [Rx] GuaiFENesin/Dextromethorphan [Robitussin/Dm] 10 ml PO Q6HR PRN udc 11/02/17 [Rx ] Metoprolol [Lopressor] 12.5 mg PO BID #60 tablet 11/02/17 [Rx] Warfarin [Coumadin] 1.5 mg PO 1800 #90 tablet 11/02/17 [Rx] Allergies/Adverse Reactions: 3 Allergy/AdvReac Type Severity Reaction Status Date / Time ciprofloxacin [From Cipro] Allergy Hives Verified 08/27/17 11:02 meperidine [From Demerol] AdvReac Vomiting Verified 08/27/17 11:02 - Respiratory Orders None Smoking Cessation: Smoking cessation has been advised. For more information, call the [place] Tobacco Quit Line at 5-458-GHXF-NOW. - Lab Orders Lab Orders: 2 Step Mantoux Test per State regulation - Ancillary Orders May use pressure relief devices daily prn, May consult with Dentist, Tableau Analyst, Tool/Die Maker PRN - Advance Directives Code Status: Full Code - Mobility Orders Ambulate - Rehabiliation Orders Rehab Potential: Fair Rehab Orders: Evaluation for Physical Therapy, Evaluation for Occupational Therapy - Treatments Skin tear care topically daily PRN per policy, May check for fecal impaction rectally daily PRN, Fleet enema rectally every other day PRN cleansing purposes - Diet Orders No Added Salt (MADELEINE), Cardiac CERTIFICATION: I certify that the transfer of the above named patient to an Extended Care Facility is necessary for the continuing treatment of the diagnosis listed. The above information is true and accurate reflection of patient's current condition. Confidential - Redisclosure prohibited without a patient's written consent.
--- NOTE | 2017-11-02 16:09 | Internal Med Progress Note ---
Date of Encounter: 11/02/17 Time of Encounter: 08:30 - Assessment and plan (1) Diastolic CHF, acute on chronic Current Visit: Yes Status: Resolved Assessment and plan: Resolved at this time. Continue to monitor (2) Atrial flutter Current Visit: Yes Status: Chronic Assessment and plan: Rate controlled most of the time. Had some tachycardia this AM. Improved after metoprolol. Qualifiers: Atrial flutter type: typical Qualified Code(s): I48.3 - Typical atrial flutter (3) Superficial thrombophlebitis of right upper extremity Current Visit: Yes Status: Resolved Assessment and plan: RUE. Warm compresses. (4) CKD (chronic kidney disease) stage 4, GFR 15-29 ml/min Current Visit: Yes Status: Chronic Assessment and plan: Patient has stage IV chronic kidney disease, creatinine and GFR is stable - continue to avoid nephrotoxic medications and renally dose antibiotics - Monitor intake and output, avoid excess volume (5) COPD (chronic obstructive pulmonary disease) Current Visit: Yes Status: Chronic Assessment and plan: History of COPD not on acute exacerbation, she is not on home O2. No wheezing. Qualifiers: COPD type: unspecified COPD Qualified Code(s): J44.9 - Chronic obstructive pulmonary disease, unspecified (6) HLD (hyperlipidemia) Current Visit: Yes Status: Chronic Assessment and plan: Continue stain Qualifiers: Hyperlipidemia type: mixed hyperlipidemia Qualified Code(s): E78.2 - Mixed hyperlipidemia (7) HTN (hypertension) Current Visit: Yes Status: Chronic Assessment and plan: Continue home medication home medication Qualifiers: Hypertension type: essential hypertension Qualified Code(s): I10 - Essential (primary) hypertension (8) Legally blind Current Visit: Yes Status: Chronic Assessment and plan: Assistance with ADLs by nursing staff. (9) GERD (gastroesophageal reflux disease) Current Visit: Yes Status: Chronic Assessment and plan: Continue PPI Qualifiers: Esophagitis presence: without esophagitis Qualified Code(s): K21.9 - Gastro -esophageal reflux disease without esophagitis (10) Anemia Current Visit: Yes Status: Chronic Assessment and plan: Hemoglobin has been drifting down but has been this low in the past. Monitoring at this time. If persists may need outpatient GI work up especially with need for anticoagulation. Qualifiers: Anemia type: other cause Other causes of anemia: chronic disease, other Qualified Code(s): D63.8 - Anemia in other chronic diseases classified elsewhere (11) History of subdural hematoma (post traumatic) Current Visit: Yes Status: Resolved Assessment and plan: (1) History of subdural hematoma (post traumatic) Current Visit: Yes Status: Resolved Patient has a history of subdural hematoma in May 2017 that occurred after a fall. neurology was consulted, CT head showed resolving, await for neurology to [place] for coumadin - Subjective Interval history: Ms Barber is currently admitted for acute CHF exac and a flutter. She remains moderate risk at this time. Ms Barber was to be discharged home today. She then changed her mind and wanted to go to SNF. Referral sent to [facility] and after acceptance nephew said no to [facility]. Not able to get her another place tonight. She denies new issues - no pain or dyspnea. Heartrate has been higher in AM but better now. - Constitutional Vitals: Temp Pulse Resp BP Pulse Ox 98.6 F 74 16 118/57 98 11/02/17 14:46 11/02/17 14:46 11/02/17 15:38 11/02/17 14:46 11/02/17 15:38 General appearance: Present: cooperative, A&O X 3, pleasant, answers questions appropriately - Head Head exam: Present: normocephalic - Eye Eye exam: Present: EOMI, conjuntiva pink - ENT ENT exam: Present: mucous membranes moist - Respiratory Respiratory exam: Present: decreased breath sounds. Absent: rales, rhonchi, wheezes - Cardiovascular Cardiovascular exam: Present: irregular rhythm. Absent: tachycardia - GI/Abdominal GI/Abdominal exam: Present: soft. Absent: tenderness - Extremities Exam Extremities exam: Present: warm. Absent: tenderness - Neurological Exam Neurological exam: Present: alert, oriented X3 - Skin Skin exam: Present: warm. Absent: rash Internal Medicine: Result - Labs CBC & Chem 7: 11/01/17 07:30 11/01/17 07:30 - ABG Interpretation ABG results: ABG ABG pH 7.33 pH Units (7.32-7.45) 10/15/17 09:03 ABG pCO2 49 mmHg (35-45) H 10/15/17 09:03 ABG pO2 112 mmHg (85-104) H 10/15/17 09:03 ABG O2 Saturation 98 % (95-98) 10/15/17 09:03 PT/INR, D-dimer PT 27.7 Seconds (9.4-12.1) H 11/02/17 06:27 Consult Discharge Plan - Plan Additional Instructions: appt with coumadin clinic oct 27 @ 5049 1. Follow-up with your primary care provider in the next 3-5 days 2. Take all prescriptions as prescribed, any concerns or questions contact her primary care provider. 3. Return to the emergency department if: Referrals: Lokesh Cooper MD [Primary Care Provider] - 11/05/17 2:45 pm Fernando Najera MD [Partnered Physician] - 11/17/17 2:30 pm Prescriptions: Amiodarone [Cordarone] 400 mg PO BID #75 tablet Benzonatate [Tessalon] 100 mg PO TID PRN #60 capsule PRN Reason: Cough Metoprolol [Lopressor] 12.5 mg PO BID #60 tablet Warfarin [Coumadin] 1.5 mg PO 1800 #90 tablet
[2017-11-02] MEDS ORDERED: *HR* Warfarin 3 MG TABLET PO SCH (18:00)
[2017-11-02] MEDS: Acetaminophen 325 MG TABLET PO PRN (18:19)
[2017-11-02] MEDS: Gabapentin 100 MG CAPSULE PO SCH (22:07)
[2017-11-03] MEDS: Ipratropium/Albuterol Neb 3 ML IH SCH ×3 (03:34→16:13)
[2017-11-03 07:14] LABS: INR 2.3; Prothrombin Time 25.5 Seconds (9.4-12.1)
[2017-11-03 07:50] LABS: Hematocrit 25.5 % (35.3-44.9); Mean Corpuscular HGB Conc 31.4 g/dL (31.6-35.5); Mean Corpuscular Hemoglobin 27.9 pg (28.0-33.3); Mean Corpuscular Volume 88.9 fL (83.0-100.0); Mean Platelet Volume 10.2 fL (9.4-12.4); Platelet Count 158 K/mcL (140-400); Red Blood Count 2.87 M/mcL (3.82-4.97); Red Cell Distribution Width 15.1 % (11.5-14.5)
[2017-11-03] MEDS: Loratadine 10 MG TABLET PO SCH (08:32)
[2017-11-03] MEDS: Aspirin Enteric Coated 81 MG Tablet PO SCH (08:33)
[2017-11-03] MEDS: *HR* Amiodarone 200 MG TABLET PO SCH (08:33)
[2017-11-03] MEDS: Furosemide 20 MG TABLET PO SCH (08:33)
[2017-11-03] MEDS: Acetaminophen 325 MG TABLET PO PRN (08:36)
[2017-11-03] MEDS: Fluticasone Propionate Nasal 50 MCG/SPRAY BOTTLE NS SCH (08:41)
[2017-11-03] MEDS: Nystatin POWDER 30 GM BOTTLE TP SCH (08:41)
[2017-11-03 08:47] LABS: Calcium 8.5 mg/dL (8.6-10.3); Potassium 4.3 mEq/L (3.5-5.1)
[2017-11-03] MEDS ORDERED: Furosemide 40 MG TABLET PO SCH (10:05)
--- NOTE | 2017-11-03 10:09 | Discharge Summary ---
Date of Encounter: 11/03/17 Time of Encounter: 10:07 - Discharge Diagnosis (1) Diastolic CHF, acute on chronic Priority: Primary Status: Resolved (2) Atrial flutter Priority: Primary Status: Chronic Comments: with RVR Qualifiers: Atrial flutter type: typical Qualified Code(s): I48.3 - Typical atrial flutter (3) CKD (chronic kidney disease) stage 4, GFR 15-29 ml/min Priority: Secondary Status: Chronic (4) Legally blind Priority: Secondary Status: Chronic (5) H/O bicuspid aortic valve Priority: Secondary Status: Chronic (6) History of vertebroplasty Priority: Secondary Status: Chronic (7) GERD (gastroesophageal reflux disease) Priority: Secondary Status: Chronic Qualifiers: Esophagitis presence: without esophagitis Qualified Code(s): K21.9 - Gastro -esophageal reflux disease without esophagitis (8) HTN (hypertension) Priority: Secondary Status: Chronic Qualifiers: Hypertension type: essential hypertension Qualified Code(s): I10 - Essential (primary) hypertension (9) Superficial thrombophlebitis of right upper extremity Priority: Secondary Status: Resolved - Discharge Medications Prescriptions: Amiodarone [Cordarone] 200 mg PO DAILY #90 tablet Benzonatate [Tessalon] 100 mg PO TID PRN #60 capsule PRN Reason: Cough Furosemide [Lasix] 20 mg PO BID #90 tablet Metoprolol [Lopressor] 12.5 mg PO BID #60 tablet Warfarin [Coumadin] 1.5 mg PO 1800 #90 tablet Home Medications: Cyclosporine [Restasis] 1 drop BOTH EYES BID 04/30/15 [History] Fluticasone Propionate [Flovent Diskus] 2 puff IH BID 04/30/15 [History] Isosorbide MONOnitrate [Isosorbide Mononitrate ER] 60 mg PO DAILY 04/30/15 [ History] Potassium Chloride 20 meq PO DAILY 06/19/16 [History] Calcitriol [Rocaltrol] 0.25 mcg PO DAILY 03/20/17 [History] Azelastine HCl 1 drop OP BID 07/20/17 [History] Fluticasone/Vilanterol [Breo Ellipta 100-25 Mcg INH] 1 each IH DAILY 07/20/17 [ History] Gabapentin [Neurontin] 100 mg PO HS 07/20/17 [History] Loratadine [Claritin] 10 mg PO DAILY 07/20/17 [History] Nystatin POWDER [Nystop] 1 appl TP BID 07/20/17 [History] Tamsulosin [Flomax] 0.4 mg PO DAILY 07/20/17 [History] Albuterol Sulfate [Albuterol Inhaler] 2 puff IH Q4HR PRN 08/27/17 [History] Albuterol Neb [AccuNeb] 0.63 mg IH Q12H PRN 10/06/17 [History] Atorvastatin Calcium [Lipitor] 20 mg PO HS 10/06/17 [History] Esomeprazole Magnesium [Nexium] 40 mg PO DAILY 10/06/17 [History] Guaifenesin [Mucinex] 600 mg PO Q12H PRN 10/06/17 [History] Aspirin Enteric Coated [Aspirin EC] 81 mg PO DAILY tablet. 11/02/17 [Rx] Benzonatate [Tessalon] 100 mg PO TID PRN #60 capsule 11/02/17 [Rx] GuaiFENesin/Dextromethorphan [Robitussin/Dm] 10 ml PO Q6HR PRN udc 11/02/17 [Rx ] Metoprolol [Lopressor] 12.5 mg PO BID #60 tablet 11/02/17 [Rx] Warfarin [Coumadin] 1.5 mg PO 1800 #90 tablet 11/02/17 [Rx] Amiodarone [Cordarone] 200 mg PO DAILY #90 tablet 11/03/17 [Rx] Furosemide [Lasix] 20 mg PO BID #90 tablet 11/03/17 [Rx] Warfarin [Coumadin] 1.5 mg PO 1800 tablet 11/03/17 [Rx] Allergies/Adverse Reactions: 3 Allergy/AdvReac Type Severity Reaction Status Date / Time ciprofloxacin [From Cipro] Allergy Hives Verified 08/27/17 11:02 meperidine [From Demerol] AdvReac Vomiting Verified 08/27/17 11:02 Date of admission: 10/06/17 16:24 Primary care physician: Lokesh Cooper MD Consults: 10/06/17 17:15 Consult to Nutrition [CONS] Routine Comment: Consulting Provider: NUTRITION Reason for Dietary Consult: PO Supplementation Consult to Director Of Payroll [CONS] Routine Reason for SW Consult: Possible need for home care 10/06/17 17:30 Consult to Occupational Therapy [CONS] Routine Comment: Evaluate, develop and implement POC Reason for Consult: Patient reports she is unsteady on her feet when ambulating. States she is able to use walker but has difficulty. Please assess patient for ambulation strength, stability, safety, and for possible home assistive needs for post- discharge planning. 10/06/17 17:31 Consult to Physical Therapy [CONS] Routine Comment: Evaluate, develop and implement POC Reason for Consult: Patient reports she is unsteady on her feet when ambulating. States she is able to use walker but has difficulty. Please assess patient for ambulation strength, stability, safety, and for possible home assistive needs for post- discharge planning. 10/06/17 17:45 Consult to Wound Care [CONS] Routine Reason for Consult: Patient has wound on RLE that will require wound care recommendations for daily care. Call Completed: No 10/06/17 17:48 Consult to Cardiology [CONS] Routine Comment: Consulting Provider: Jennifer Chiu Reason for Consult: Patient is being admitted w/CHF exacerbation and has new onset of atrial flutter. Denies previous hx. Pt. also reports right-sided chest pain today w/radiation to right neck. Initial troponin <0.03. Will trend x2. Echocardiogram ordered. Pt. has hx of Ross procedure, cardiomyopathy, valvular heart disease, HLD , and HTN. Call Completed: Yes 10/08/17 13:50 Consult to Neurology [CONS] Routine Consulting Provider: [facility] Reason for Consult: Patient with recent intracraniel bleed/now with new onset atrial fibrillation. Trying to assess need for anti-coagulation with history of fall/ blindness and risk for further head trauma. Call Completed: No 10/25/17 07:15 Consult to Cardiology [CONS] Routine Comment: Consulting Provider: [facility] Reason for Consult: per hospitalistlennie rvr Call Completed: Yes - Patient Status Disposition: Transfer SNF Condition: Fair Overall status at discharge: patient is progressing back to baseline - Discharge Instructions Follow Up With: Lokesh Cooper MD [Primary Care Provider] - 11/05/17 2:45 pm Fernando Najera MD [Partnered Physician] - 11/17/17 2:30 pm Additional Instructions: Follow-up with Coumadin clinic, take coumadin 1.5 mg daily. Amiodarone taper: 400 mg twice a day for 7 days, then 400 mg daily for 7 days, then 200 mg daily. Take 40 mg of Lasix in the morning and 20 mg in the afternoon. Metoprolol 12.5 mg twice daily 1. Follow-up with your primary care provider after discharge from group home facility. 2. Take all prescriptions as prescribed, any concerns or questions contact primary care provider. - Diet and Activity Activity: increase activity as tolerated Diet: low fat, low cholesterol Hospital course: Ms. Barber is a 72 year old female with PMHX of diastolic CHF, COPD not oxygen dependent, CAD, retinitis pigmentosa, history of subdural hematoma in May 2017 after a fall, Pablo Bonnet Syndrome, nearly blind, GERD, hyperlipidemia, hypertension, osteoporosis, chronic kidney disease stage IV, who presented to the [facility] on 10/06/2017 complaining of shortness of breath via EMS. Patient reported worsening shortness of breath with a cough and nasal congestion, but denied hemoptysis, fever, or chills. Patient initially denied any chest pain or pressure, however, she subsequently reported right-sided chest pain with radiation to right neck. She denied palpitations. Patient was found to be hypoxic. VQ scan was negative for possible PE. BNP 258. Patient at home dose of 40 mg by mouth Lasix daily was stopped and patient was began on IV Lasix 40 mg twice a day. EKG examination showed atrial flutter, which according to patient was new in onset. Patient was started on BiPAP and DuoNeb's. Physical examination indicative of fluid overload. Patient's respiratory status improved with interventions. Patient was also started on low dose heparin drip for new onset atrial flutter. Troponins were mildly elevated at less than 0.03. Patient has PMhx of Ross procedure in 1994. She follows with Dr. Lopez in [place]. Her most recent echocardiogram and heart catheterizations are from 2008 at [facility]. Patient also reporting recent neck surgery with subsequent intracranial bleed. She states she is living at home with her nephew. During her hospitalization the patient was on Coreg, Cardizem, digoxin, all of those medications were switched to amiodarone taper and metoprolol 12.5 g twice a day per cardiology. Her leg edema has not improved much for which we will increase her dose of Lasix to 40 mg in the morning and 20 mg in the afternoon. We will be sending her on Coumadin 1.5 mg once daily. - Time Spent with Patient Total time spent providing and/or coordinating discharge services: Greater than 30 minutes (40 min) - Constitutional Vitals: Temp Pulse Resp BP Pulse Ox 98 F 73 16 108/74 95 11/03/17 08:15 11/03/17 08:15 11/03/17 08:15 11/03/17 08:15 11/03/17 08:15 General appearance: Present: cooperative, A&O X 3, pleasant, answers questions appropriately - Head Head exam: Present: atraumatic, normocephalic - Eye Eye exam: Present: conjuntiva pink, sclera anicteric. Absent: PERRL (Legally blind) Pupils: Absent: PERRL - Neck Neck exam general surgery: Present: supple, trachea midline. Absent: lymphadenopathy - Respiratory Respiratory exam: Present: CTAB. Absent: accessory muscle use, rales, rhonchi, wheezes - Cardiovascular Cardiovascular exam: Present: RRR, +S1, +S2. Absent: diastolic murmur, gallop, rubs, systolic murmur - GI/Abdominal GI/Abdominal exam: Present: normal bowel sounds, soft, no peritoneal signs. Absent: distended, tenderness - Extremities Exam Extremities exam: Present: pedal edema (+2 pitting edema in both lower extremities), warm, radial pulses palpable and symmetrical. Absent: calf tenderness, cyanotic - Neurological Exam Neurological exam: Present: CN II-XII intact, oriented X3, no focal deficits. Absent: pronater drift, facial droop, speech deficit - Skin Skin exam: Present: dry, intact
--- NOTE | 2017-11-03 10:20 | Physician Discharge Referral ---
- Diagnosis (1) Diastolic CHF, acute on chronic Priority: Primary Status: Resolved (2) Atrial flutter Priority: Primary Status: Chronic (3) CKD (chronic kidney disease) stage 4, GFR 15-29 ml/min Priority: Secondary Status: Chronic (4) Legally blind Priority: Secondary Status: Chronic (5) H/O bicuspid aortic valve Priority: Secondary Status: Chronic (6) History of vertebroplasty Priority: Secondary Status: Chronic (7) GERD (gastroesophageal reflux disease) Priority: Secondary Status: Chronic (8) HTN (hypertension) Priority: Secondary Status: Chronic (9) Superficial thrombophlebitis of right upper extremity Priority: Secondary Status: Resolved - Transfer Medications Prescriptions: Amiodarone [Cordarone] 200 mg PO DAILY #90 tablet Benzonatate [Tessalon] 100 mg PO TID PRN #60 capsule PRN Reason: Cough Furosemide [Lasix] 20 mg PO BID #90 tablet Metoprolol [Lopressor] 12.5 mg PO BID #60 tablet Warfarin [Coumadin] 1.5 mg PO 1800 #90 tablet Home Medications: Cyclosporine [Restasis] 1 drop BOTH EYES BID 04/30/15 [History] Fluticasone Propionate [Flovent Diskus] 2 puff IH BID 04/30/15 [History] Isosorbide MONOnitrate [Isosorbide Mononitrate ER] 60 mg PO DAILY 04/30/15 [ History] Potassium Chloride 20 meq PO DAILY 06/19/16 [History] Calcitriol [Rocaltrol] 0.25 mcg PO DAILY 03/20/17 [History] Azelastine HCl 1 drop OP BID 07/20/17 [History] Fluticasone/Vilanterol [Breo Ellipta 100-25 Mcg INH] 1 each IH DAILY 07/20/17 [ History] Gabapentin [Neurontin] 100 mg PO HS 07/20/17 [History] Loratadine [Claritin] 10 mg PO DAILY 07/20/17 [History] Nystatin POWDER [Nystop] 1 appl TP BID 07/20/17 [History] Tamsulosin [Flomax] 0.4 mg PO DAILY 07/20/17 [History] Albuterol Sulfate [Albuterol Inhaler] 2 puff IH Q4HR PRN 08/27/17 [History] Albuterol Neb [AccuNeb] 0.63 mg IH Q12H PRN 01/16/18 [History] Atorvastatin Calcium [Lipitor] 20 mg PO HS 10/06/17 [History] Esomeprazole Magnesium [Nexium] 40 mg PO DAILY 10/06/17 [History] Guaifenesin [Mucinex] 600 mg PO Q12H PRN 10/06/17 [History] Aspirin Enteric Coated [Aspirin EC] 81 mg PO DAILY tablet. 11/02/17 [Rx] Benzonatate [Tessalon] 100 mg PO TID PRN #60 capsule 11/02/17 [Rx] GuaiFENesin/Dextromethorphan [Robitussin/Dm] 10 ml PO Q6HR PRN udc 11/02/17 [Rx ] Metoprolol [Lopressor] 12.5 mg PO BID #60 tablet 11/02/17 [Rx] Warfarin [Coumadin] 1.5 mg PO 1800 #90 tablet 11/02/17 [Rx] Amiodarone [Cordarone] 200 mg PO DAILY #90 tablet 11/03/17 [Rx] Furosemide [Lasix] 20 mg PO BID #90 tablet 11/03/17 [Rx] Warfarin [Coumadin] 1.5 mg PO 1800 tablet 11/03/17 [Rx] Allergies/Adverse Reactions: 3 Allergy/AdvReac Type Severity Reaction Status Date / Time ciprofloxacin [From Cipro] Allergy Hives Verified 08/27/17 11:02 meperidine [From Demerol] AdvReac Vomiting Verified 08/27/17 11:02 - Respiratory Orders Smoking Cessation: Smoking cessation has been advised. For more information, call the [place] Tobacco Quit Line at 2-652-DASZ-NOW. - Advance Directives Code Status: Full Code - Rehabiliation Orders Other: Follow-up with Coumadin clinic, take coumadin 1.5 mg daily. Amiodarone taper: 400 mg twice a day for 7 days, then 400 mg daily for 7 days, then 200 mg daily. Take 40 mg of Lasix in the morning and 20 mg in the afternoon. 1. Follow-up with your primary care provider after discharge from residential facility 2. Take all prescriptions as prescribed, any concerns or questions contact primary care provider. - Diet Orders No Added Salt (MADELEINE) CERTIFICATION: I certify that the transfer of the above named patient to an Extended Care Facility is necessary for the continuing treatment of the diagnosis listed. The above information is true and accurate reflection of patient's current condition. Confidential - Redisclosure prohibited without a patient's written consent.
[2017-11-03] MEDS: Budesonide/Formoterol 160/4.5 MDI IH SCH (10:44)
[2017-11-03 12:00] VITALS: BP 108/55
== END 2017-11-03 16:10 | DRG 291 ==
LOC: EMEROO 13:28 → 2NNU 16:24 → SUATTDRO 16:24 → 2NNU 16:42 → 2NENU 10-15 10:47
PROVIDERS: ADMIT Nurse Practitioner Family; ATTEND Internal Medicine

== ENCOUNTER 2017-11-28 09:01 | Inpatient (IN) ==
[2017-11-28] MEDS ORDERED: Ipratropium/Albuterol Neb 3 ML IH ONE (09:12)
[2017-11-28] MEDS ORDERED: methylPREDNISolone 125 MG/2 ML VIAL IVP ONE (09:12)
--- NOTE | 2017-11-28 09:22 | Emergency Department Note ---
Disposition Clinical Impression: Supratherapeutic INR, Severe sepsis CHF exacerbation Qualifiers: Heart failure type: unspecified Qualified Code(s): I50.9 - Heart failure, unspecified Disposition: Admitted As Inpatient Condition: Serious Time of Disposition: 12:42 SOB HPI - General Chief Complaint: ED Shortness of Breath/Dyspnea Source: patient, EMS Mode of arrival: EMS Limitations: no limitations Nursing Notes Reviewed: Yes Vital Signs Reviewed: Yes - History of Present Illness 72-year-old female with a past medical history of CHF, COPD, asthma presents with the complaint of shortness of breath and weakness. Patient states that the symptoms have been present for the past 2 months but have been worse recently. She states the shortness of breath is present both with rest and with exertion and is worse with lying down. Also admits to swelling of the lower extremities as well as a nonproductive cough. States she has chills but denies any symptoms of fevers, chest pain, nausea, vomiting, abdominal pain. Per EMS report, patient has been falling recently from senior care which she was discharged from yesterday. She lives with her nephew at home. She does take Coumadin for what she sates his atrial fibrillation. She is also complaining of some right knee pain at this time. Pt Subjective Complaint: shortness of breath Onset (ago): week(s) Context: recent illness - Related Data Home Medications Medication Instructions Recorded Confirmed Cyclosporine [Restasis] 1 drop BOTH EYES BID 04/30/15 11/28/17 Fluticasone Propionate [Flovent 2 puff IH BID 04/30/15 11/28/17 Diskus] Isosorbide MONOnitrate [Isosorbide 60 mg PO DAILY 04/30/15 11/28/17 Mononitrate ER] Potassium Chloride 20 meq PO DAILY 06/19/16 11/28/17 Calcitriol [Rocaltrol] 0.25 mcg PO DAILY 03/20/17 11/28/17 Azelastine HCl 1 drop OP BID 07/20/17 11/28/17 Fluticasone/Vilanterol [Breo 1 each IH DAILY 07/20/17 11/28/17 Ellipta 100-25 Mcg INH] Loratadine [Claritin] 10 mg PO DAILY 07/20/17 11/28/17 Nystatin POWDER [Nystop] 1 appl TP BID 07/20/17 11/28/17 Tamsulosin [Flomax] 0.4 mg PO DAILY 07/20/17 11/28/17 Albuterol Sulfate [Albuterol 2 puff IH Q4HR PRN 08/27/17 11/28/17 Inhaler] Atorvastatin Calcium [Lipitor] 20 mg PO HS 10/06/17 11/28/17 Esomeprazole Magnesium [Nexium] 40 mg PO DAILY 10/06/17 11/28/17 Amiodarone [Cordarone] 200 mg PO BID 11/28/17 11/28/17 Warfarin [Coumadin] 2 mg PO 1800 11/28/17 11/28/17 Previous Rx's Medication Instructions Recorded Aspirin Enteric Coated [Aspirin EC] 81 mg PO DAILY tablet. 11/02/17 Metoprolol [Lopressor] 12.5 mg PO BID #60 tablet 11/02/17 Furosemide [Lasix] 20 mg PO BID #90 tablet 11/03/17 Allergies Allergy/AdvReac Type Severity Reaction Status Date / Time ciprofloxacin [From Cipro] Allergy Hives Verified 08/27/17 11:02 meperidine [From Demerol] AdvReac Vomiting Verified 08/27/17 11:02 All systems ED: reviewed and negative except as stated. 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 ENGINEERING PROFESSOR history - Social History Smoking Status: Never smoker Smokeless Tobacco Status: No Alcohol use: Reports: none Drug use: Reports: none Physical Exam - General Limitations: no limitations General appearance: alert, in no apparent distress - Head Head exam: normocephalic, normal inspection - ENT ENT exam: normal exam, normal oropharynx, mucous membranes moist - Chest Chest inspection: Present: normal inspection, symmetric chest wall rise - Respiratory Respiratory exam: Present: normal lung sounds bilaterally - Cardiovascular Cardiovascular exam: Present: regular rate, normal rhythm, normal heart sounds - Abdominal Exam Abdominal exam: Present: soft, tenderness, normal bowel sounds. Absent: distention, guarding, rebound, rigidity Abdominal tenderness: Present: epigastrium - Extremities Exam Extremities exam: Present: normal capillary refill, pedal edema. Absent: tenderness - Expanded Lower Extremity Exam Knee exam: Present: ecchymosis Lower leg exam: Present: swelling, ecchymosis. Absent: dislocation, erythema Ankle exam: Present: ecchymosis - Neurological Exam Neurological exam: Present: alert, oriented X3 - Psychiatric Psychiatric exam: Present: normal affect, normal mood - Skin Skin exam: Present: warm, dry, intact, other (diffuse ecchymosis in all extremities, chest wall, abdomen) Course Course Narrative: Will begin sepsis protocol occluding CBC, BMP, lactic acid, BNP, chest x-ray, knee x-ray, x-ray of abdomen and pelvis, blood cultures. Vital Signs Temperature 97.5 F L 11/28/17 09:10 Pulse Rate 95 11/28/17 09:10 Respiratory Rate 18 11/28/17 09:10 Blood Pressure 106/67 11/28/17 09:10 O2 Sat by Pulse Oximetry 100 11/28/17 09:10 Temperature 97.8 F 11/28/17 14:29 Pulse Rate 116 11/28/17 14:29 Respiratory Rate 20 11/28/17 14:29 Blood Pressure 139/68 11/28/17 14:29 O2 Sat by Pulse Oximetry 89 11/28/17 14:29 Oxygen Delivery Oxygen Delivery Nasal Cannula Shortness of Breath/Dyspnea - MDM Narrative Medical decision making narrative: 72 year old female presenting with SOB. Labs significant for WBC of 17, INR of 23, elevated PT/PTT, Hgb of 7.9, Na of 148, TUCKER, troponin of 0.07, lactic acid 2.2. CXR revealed no acute changes. Pelvis and knee xray showed no acute changes. We did start 2 units of FFP and 10 of Vitamin K in the ED for elevated coagulation studies. We also gave 20 IV lasix for clinical fluid overload. We discussed this with the hospitalist who agrees for admission after head CT. Head CT negative for bleed. - Lab Data Result diagrams: 11/28/17 09:51 11/28/17 09:06 Lab Results 11/28/17 11/28/17 11/28/17 Range/Units 09:06 09:06 09:06 WBC (4.3-11.1) K/mcL RBC (3.82-4.97) M/mcL Hgb (11.5-15.4) g/dL Hct (35.3-44.9) % MCV (83.0-100.0) fL MCH (28.0-33.3) pg MCHC (31.6-35.5) g/dL RDW (11.5-14.5) % Plt Count (140-400) K/mcL MPV (9.4-12.4) fL Immature Gran % (0-4) % Seg Neutrophils % % Lymphocytes % % Monocytes % % Eosinophils % % Basophils % % Neutrophils # (1.6-8.9) K/mcL Lymphocytes # (0.6-4.6) K/mcL Monocytes # (0.0-1.3) K/mcL Eosinophils # (0.0-0.6) K/mcL Basophils # (0.0-0.2) K/mcL Nucleated RBCs/100 WBC (0) /100 WBC PT 266.4 H* (9.4-12.1) Seconds INR 23.1 H* APTT 51.9 H (26.0-36.0) Seconds Sodium 148 H (136-145) mEq/L Potassium 3.9 (3.5-5.1) mEq/L Chloride 111 H (98-107) mEq/L Carbon Dioxide 29 (23-29) mEq/L BUN 54 H (8-23) mg/dL Creatinine 2.18 H (0.60-1.20) mg/dL Est GFR ( Amer) 27 L (> 60) Est GFR (Non-Af Amer) 22 L (> 60) BUN/Creatinine Ratio 25 (6-26) Glucose 109 H (70-105) mg/dL Calculated Osmolality 321 H (280-300) Lactic Acid 2.2 (0.5-2.2) mmol/L Calcium 9.3 (8.6-10.3) mg/dL Troponin I 0.07 H* (< 0.04) ng/mL B-Natriuretic Peptide (Less than 100) pg/mL Urine Color (Yellow) Urine Clarity (Clear) Urine pH (5.0-8.0) pH Units Ur Specific Clarence (1.010-1.025) Urine Protein (Neg-Trace) mg/dL Urine Glucose (UA) (Normal) mg/dL Urine Ketones (Negative) mg/dL Urine Blood (Negative) Urine Nitrite (Negative) Urine Bilirubin (Negative) Urine Urobilinogen (Normal) mg/dL Ur Leukocyte Esterase (Negative) Urine Microscopic RBC (0-3) per hpf Urine Microscopic WBC (0-3) per hpf Ur Squamous Epith Cells (None-Few) per lpf Urine Bacteria (None-Few) per hpf Hyaline Casts (None-Few) per lpf Ur Culture Indicated? (NO) Specimen Rejected Blood Type 11/28/17 11/28/17 11/28/17 Range/Units 09:06 09:24 09:51 WBC 17.3 H (4.3-11.1) K/mcL RBC 2.61 L (3.82-4.97) M/mcL Hgb 7.6 L (11.5-15.4) g/dL Hct 26.1 L (35.3-44.9) % MCV 100.0 D (83.0-100.0) fL MCH 29.1 (28.0-33.3) pg MCHC 29.1 L (31.6-35.5) g/dL RDW 20.2 H (11.5-14.5) % Plt Count 172 (140-400) K/mcL MPV 10.6 (9.4-12.4) fL Immature Gran % 0.9 (0-4) % Seg Neutrophils % 85.5 % Lymphocytes % 6.8 % Monocytes % 6.5 % Eosinophils % 0.2 % Basophils % 0.1 % Neutrophils # 14.8 H (1.6-8.9) K/mcL Lymphocytes # 1.2 (0.6-4.6) K/mcL Monocytes # 1.1 (0.0-1.3) K/mcL Eosinophils # 0.0 (0.0-0.6) K/mcL Basophils # 0.0 (0.0-0.2) K/mcL Nucleated RBCs/100 WBC 1.3 H (0) /100 WBC PT (9.4-12.1) Seconds INR APTT (26.0-36.0) Seconds Sodium (136-145) mEq/L Potassium (3.5-5.1) mEq/L Chloride (98-107) mEq/L Carbon Dioxide (23-29) mEq/L BUN (8-23) mg/dL Creatinine (0.60-1.20) mg/dL Est GFR ( Amer) (> 60) Est GFR (Non-Af Amer) (> 60) BUN/Creatinine Ratio (6-26) Glucose (70-105) mg/dL Calculated Osmolality (280-300) Lactic Acid (0.5-2.2) mmol/L Calcium (8.6-10.3) mg/dL Troponin I (< 0.04) ng/mL B-Natriuretic Peptide 1007 H (Less than 100) pg/mL Urine Color (Yellow) Urine Clarity (Clear) Urine pH (5.0-8.0) pH Units Ur Specific [place]rence (1.010-1.025) Urine Protein (Neg-Trace) mg/dL Urine Glucose (UA) (Normal) mg/dL Urine Ketones (Negative) mg/dL Urine Blood (Negative) Urine Nitrite (Negative) Urine Bilirubin (Negative) Urine Urobilinogen (Normal) mg/dL Ur Leukocyte Esterase (Negative) Urine Microscopic RBC (0-3) per hpf Urine Microscopic WBC (0-3) per hpf Ur Squamous Epith Cells (None-Few) per lpf Urine Bacteria (None-Few) per hpf Hyaline Casts (None-Few) per lpf Ur Culture Indicated? (NO) Specimen Rejected MCV Delta Blood Type 11/28/17 11/28/17 Range/Units 10:17 10:35 WBC (4.3-11.1) K/mcL RBC (3.82-4.97) M/mcL Hgb (11.5-15.4) g/dL Hct (35.3-44.9) % MCV (83.0-100.0) fL MCH (28.0-33.3) pg MCHC (31.6-35.5) g/dL RDW (11.5-14.5) % Plt Count (140-400) K/mcL MPV (9.4-12.4) fL Immature Gran % (0-4) % Seg Neutrophils % % Lymphocytes % % Monocytes % % Eosinophils % % Basophils % % Neutrophils # (1.6-8.9) K/mcL Lymphocytes # (0.6-4.6) K/mcL Monocytes # (0.0-1.3) K/mcL Eosinophils # (0.0-0.6) K/mcL Basophils # (0.0-0.2) K/mcL Nucleated RBCs/100 WBC (0) /100 WBC PT (9.4-12.1) Seconds INR APTT (26.0-36.0) Seconds Sodium (136-145) mEq/L Potassium (3.5-5.1) mEq/L Chloride (98-107) mEq/L Carbon Dioxide (23-29) mEq/L BUN (8-23) mg/dL Creatinine (0.60-1.20) mg/dL Est GFR ( Amer) (> 60) Est GFR (Non-Af Amer) (> 60) BUN/Creatinine Ratio (6-26) Glucose (70-105) mg/dL Calculated Osmolality (280-300) Lactic Acid (0.5-2.2) mmol/L Calcium (8.6-10.3) mg/dL Troponin I (< 0.04) ng/mL B-Natriuretic Peptide (Less than 100) pg/mL Urine Color Yellow (Yellow) Urine Clarity Clear (Clear) Urine pH 5.5 (5.0-8.0) pH Units Ur Specific Clarence 1.027 H (1.010-1.025) Urine Protein 100 H (Neg-Trace) mg/dL Urine Glucose (UA) Normal (Normal) mg/dL Urine Ketones Negative (Negative) mg/dL Urine Blood Trace H (Negative) Urine Nitrite Negative (Negative) Urine Bilirubin Negative (Negative) Urine Urobilinogen Normal (Normal) mg/dL Ur Leukocyte Esterase Negative (Negative) Urine Microscopic RBC 3-5 H (0-3) per hpf Urine Microscopic WBC 0-3 (0-3) per hpf Ur Squamous Epith Cells Many H (None-Few) per lpf Urine Bacteria None Seen (None-Few) per hpf Hyaline Casts Few (None-Few) per lpf Ur Culture Indicated? NO (NO) Specimen Rejected Blood Type A POSITIVE - EKG Data EKG shows normal: Reports: sinus rhythm Rate: Reports: normal Rhythm: Reports: NSR [place]/QRS: Reports: normal Heart block present: Reports: 1st Degree When compared to previous EKG there are: no significant changes Interpretation: Reports: unchanged when compared to prior tracing (date) Critical Care Time Critical Care Time: Yes Total Critical Care Time: 35 Attestation: Critical care time 35 minutes. Attestation Statement - Attestation Attestation: Patient was seen with resident physician. I reviewed the history, physical, assessment and plan, and agree with the findings. I also personally evaluated this patient and had [id number] time with this patient. 72-year-old female presents to the emergency department with chief complaint shortness of breath. Patient's been in and out of the hospital with pneumonia CHF and COPD for the last month or so. She also notes that she has been taking her Coumadin but they have not been able to test her blood. She said the shortness of breath has gotten progressively worse over the last 48 hours. No fevers or chills. She does have a raspy cough. On exam vital signs pulse is stable. Blood pressure is greater than 100 systolic. Initial oxygenation per EMS was in the high 80s. This improved with the breathing treatment. Heart was regular rhythm and rate. ENT is unremarkable. Lungs poor air exchange diffuse wheezing and crackles heard throughout. Abdomen soft and nontender. Extremities swelling of the lower exam is bilaterally multiple bruises over the arms or legs knees and hips. Neurologically alert and oriented. Skin bruising is noted. Psych normal. ED course patient was found to have multiple abnormalities. BNP was elevated. INR was also severely elevated. X-rays did not reveal any obvious fractures. Patient had an elevated troponin. Her EKG was similar to her prior EKG. Patient was given breathing treatments while in the emergency department she was also given Lasix. Hemodynamically patient remained stable while in the emergency department. She will require intensive care once hospitalized. Hospitalist did come and evaluate patient while in the emergency department. Antibiotics were also ordered while she was in the emergency department though we do not have a source for potential infection, she did not meet some of the SIRS criteria. We will admit to the hospitalist service for further evaluation treatment. Critical care time is 35 minutes for this patient.
[2017-11-28 09:45] LABS: Activated Partial Thrombo Time 51.9 Seconds (26.0-36.0)
[2017-11-28 09:50] LABS: Calcium 9.3 mg/dL (8.6-10.3); Potassium 3.9 mEq/L (3.5-5.1)
[2017-11-28 09:51] LABS: Troponin I 0.07 ng/mL (< 0.04)
[2017-11-28 09:55] LABS: Prothrombin Time 266.4 Seconds (9.4-12.1)
[2017-11-28 09:56] LABS: INR 23.1
[2017-11-28] MEDS ORDERED: Furosemide 20 MG/2 ML VIAL IVP ONE (10:01)
[2017-11-28 10:10] LABS: Basophils % 0.1 %; Eosinophils % 0.2 %; Hematocrit 26.1 % (35.3-44.9); Immature Granulocytes % 0.9 % (0-4); Lymphocytes # 1.2 K/mcL (0.6-4.6); Lymphocytes % 6.8 %; Mean Corpuscular HGB Conc 29.1 g/dL (31.6-35.5); Mean Corpuscular Hemoglobin 29.1 pg (28.0-33.3); Mean Platelet Volume 10.6 fL (9.4-12.4); Monocytes # 1.1 K/mcL (0.0-1.3); Monocytes % 6.5 %; Neutrophils # 14.8 K/mcL (1.6-8.9); Nucleated Red Blood Cells 1.3 /100 WBC (0); Platelet Count 172 K/mcL (140-400); Red Blood Count 2.61 M/mcL (3.82-4.97); Red Cell Distribution Width 20.2 % (11.5-14.5); Segmented Neutrophils % 85.5 %
[2017-11-28 10:18] LABS: Hemoglobin 7.6 g/dL (11.5-15.4)
[2017-11-28 10:49] LABS: Bilirubin,Urine Negative (Negative); Blood,Urine Trace (Negative); Clarity,Urine Clear (Clear); Color,Urine Yellow (Yellow); Glucose,Urine (UA) Normal (Normal); Ketones,Urine Negative (Negative); Leukocyte Esterase,Urine Negative (Negative); Nitrite,Urine Negative (Negative); PH,Urine 5.5 pH Units (5.0-8.0); Protein,Urine 100 mg/dL (Neg-Trace); Specific Gravity,Urine 1.027 (1.010-1.025); Urobilinogen,Urine Normal (Normal)
[2017-11-28 10:51] LABS: Bacteria,Urine None Seen per hpf (None-Few); Hyaline Casts,Urine Few per lpf (None-Few); Squamous Epithelial Cell,Urine Many per lpf (None-Few); WBC,Urine 0-3 per hpf (0-3)
[2017-11-28] MEDS ORDERED: 0.9 % Sodium Chloride 250 ML IVC ONE (11:02)
[2017-11-28] MEDS ORDERED: Piperacillin/Tazobactam 3.375 GM in 0.9 % Sodium Chloride Mini Bag 100 ML IVPB ONE ×2 (12:48→18:14)
[2017-11-28] MEDS ORDERED: Acetaminophen 325 MG TABLET PO PRN (12:50)
[2017-11-28] MEDS ORDERED: Naloxone 0.4 MG/ML INJ IVP PRN ×2 (12:50→18:14)
[2017-11-28] MEDS ORDERED: *HR* Promethazine 25 MG/ML VIAL IVP PRN ×2 (12:50→18:14)
[2017-11-28] MEDS ORDERED: Ondansetron 4 MG/2 ML VIAL IVP PRN ×2 (12:50→18:14)
[2017-11-28] MEDS ORDERED: *HR* HYDROcodone/Acet 5/325 mg TABLET PO PRN (12:50)
[2017-11-28] MEDS ORDERED: 0.9 % Sodium Chloride 250 ML ONE (13:25)
--- NOTE | 2017-11-28 15:35 | Internal Med History&Physical ---
Date of Encounter: 11/28/17 Time of Encounter: 12:30 Assessment and Plan (1) Supratherapeutic INR Current visit: Yes Status: Acute Severe supra therapeutic INR Admit the pt into ICU for close monitoring since she is very high risk for fall and bleed IV Vit K 10 mg and 2 U FFP given already Check PT / INR at [address] of head - no ICH (2) Sepsis Current visit: Yes Status: Acute Pt does meet sepsis criteria with elevated WBC, source of inf as pneumonia and tachycardia blood cx drawn in the ER check step pneumonia, Legionella antigen, sputum culture and resp viral panel on broad spec abx Zosyn Qualifiers: Qualified Code(s): A41.9 - Sepsis, unspecified organism (3) Acute respiratory failure with hypoxia Current visit: No Status: Acute Due to CHF exacerbation + PNA Cont abx, IV lasix (4) Pneumonia Current visit: Yes Status: Acute Mostly bacterial reviewed chest x-ray showed patching infiltrates in the right middle lobe and lower lobe abx Zosyn Qualifiers: Pneumonia type: due to unspecified organism Laterality: right Lung location: middle lobe of lung Qualified Code(s): J18.1 - Lobar pneumonia, unspecified organism (5) Diastolic CHF, acute on chronic Current visit: No Status: Acute Decompensated started on IV Lasix Resumed all other home meds slightly elevated Trop - mostly demand ischemia will trend on them reviewed Echo from 11/08 showed preserved LVEF, Diastolic dysfunction (6) Elevated troponin Current visit: Yes Status: Acute slightly elevated Trop - mostly demand ischemia will trend on them (7) Paroxysmal A-fib Current visit: Yes Status: Acute rate fairly controlled resumed home medication metoprolol and Amiodarone held Coumadin (8) CKD (chronic kidney disease) stage 4, GFR 15-29 ml/min Current visit: No Status: Chronic stable Cr (9) COPD (chronic obstructive pulmonary disease) Current visit: No Status: Chronic not in exacerbation cont Duoneb Qualifiers: COPD type: unspecified COPD Qualified Code(s): J44.9 - Chronic obstructive pulmonary disease, unspecified (10) Hypertension Current visit: No Status: Chronic resumed home meds Qualifiers: Hypertension type: essential hypertension Qualified Code(s): I10 - Essential (primary) hypertension Internal Medicine - H&P: HPI Chief complaint: Shortness of breath Admitted From: Emergency Dept Plans for Post Hospital Care: Home History of present illness: Ms. Barber is a 72 year old female PMHX of diastolic CHF, COPD not oxygen dependent, CAD, retinitis pigmentosa, history of subdural hematoma in May 2017 after a fall, Pablo Bonnet Syndrome, nearly blind, GERD, hyperlipidemia, hypertension, osteoporosis, chronic kidney disease stage IV, and recently diagnosed A. Flutter currently on Coumadin for anti coag, who presented to the ER complaining of shortness of breath. She states the shortness of breath is present both with rest and with exertion and is worse with lying down. She was recently admitted here in October for CHF exacerbation and Atrila flutter. She also mentioned her b/l LE swelling never got better. She has been having multiple falls at home, had a fall last night too. She does have ecchmmosis over both extremities mainly over Rt arm side. Her lab work showed significantly elevated INR 23.1, she denied of an active bleeding anywhere. She denied any melena, BRBPR and hematemesis. Past Med Surg Social Fam HX - Past Medical History Medical history: arthritis, asthma, cardiomyopathy, CHF, COPD, GERD, hyperlipidemia, hypertension, osteoporosis, renal disease, venous stasis, valvular heart disease, other Psychiatric history: anxiety, depression - Past Surgical History Surgical History: cataract, cholecystectomy, heart valve replacement, herniorrhaphy, hysterectomy, knee replacement, orthopedic, other, sinus surgery , other - Social History Smoking Status: Never smoker Smokeless Tobacco Status: No Alcohol use: none Drug use: none - Family History Father History Unknown: Yes Family Member Ethnicity: Non- Living Status: Hx Family Cardiac Disorders: Yes (HD, Pig valve, HD) Hx Family Cancer: Yes (Cancer on lip) Hx Family GI Disorders: Yes (CKD) Hx Family Endocrine Disorder: Yes (Gallstones) Sister History Unknown: Yes Family Member Ethnicity: Non- Living Status: Hx Family Endocrine Disorder: Yes (DM) Mother History Unknown: Yes Living Status: Hx Family Cardiac Disorders: Yes (HD, Anemia) Internal Medicine - H&P: Meds Cyclosporine [Restasis] 1 drop BOTH EYES BID 04/30/15 [History] Fluticasone Propionate [Flovent Diskus] 2 puff IH BID 04/30/15 [History] Isosorbide MONOnitrate [Isosorbide Mononitrate ER] 60 mg PO DAILY 04/30/15 [ History] Potassium Chloride 20 meq PO DAILY 06/19/16 [History] Calcitriol [Rocaltrol] 0.25 mcg PO DAILY 03/20/17 [History] Azelastine HCl 1 drop OP BID 07/20/17 [History] Fluticasone/Vilanterol [Breo Ellipta 100-25 Mcg INH] 1 each IH DAILY 07/20/17 [ History] Loratadine [Claritin] 10 mg PO DAILY 07/20/17 [History] Nystatin POWDER [Nystop] 1 appl TP BID 07/20/17 [History] Tamsulosin [Flomax] 0.4 mg PO DAILY 07/20/17 [History] Albuterol Sulfate [Albuterol Inhaler] 2 puff IH Q4HR PRN 08/27/17 [History] Atorvastatin Calcium [Lipitor] 20 mg PO HS 10/06/17 [History] Esomeprazole Magnesium [Nexium] 40 mg PO DAILY 10/06/17 [History] Aspirin Enteric Coated [Aspirin EC] 81 mg PO DAILY tablet. 11/02/17 [Rx] Metoprolol [Lopressor] 12.5 mg PO BID #60 tablet 11/02/17 [Rx] Furosemide [Lasix] 20 mg PO BID #90 tablet 11/03/17 [Rx] Amiodarone [Cordarone] 200 mg PO BID 11/28/17 [History] Warfarin [Coumadin] 2 mg PO 1800 11/28/17 [History] 3 Allergy/AdvReac Type Severity Reaction Status Date / Time ciprofloxacin [From Cipro] Allergy Hives Verified 08/27/17 11:02 meperidine [From Demerol] AdvReac Vomiting Verified 08/27/17 11:02 All Systems PM: A 10-system review of systems was performed and is negative for pertinent findings except as documented above in the HPI. Review of systems: All the systems are reviewed everything is benign except the systems and symptoms I mentioned in the history of present illness - Constitutional Vitals: Temp Pulse Resp BP Pulse Ox 97.8 F 116 20 139/68 89 11/28/17 14:29 11/28/17 14:29 11/28/17 14:29 11/28/17 14:29 11/28/17 14:29 General appearance: Present: cooperative, mild distress, A&O X 3, answers questions appropriately - Head Head exam: Present: atraumatic, normal inspection - Neck Neck exam general surgery: Present: supple - Respiratory Respiratory exam: Present: decreased breath sounds, rales (+), respiratory distress (mild), wheezes (mild) - Cardiovascular Cardiovascular exam: Present: RRR, +S1, +S2. Absent: tachycardia - GI/Abdominal GI/Abdominal exam: Present: normal bowel sounds, soft. Absent: distended, rebound, rigid, tenderness - Extremities Exam Extremities exam: Present: pedal edema (2-3+). Absent: calf tenderness, tenderness - Back Exam Back exam: Absent: CVA tenderness (L), CVA tenderness (R) - Neurological Exam Neurological exam: Present: alert, oriented X3 - Psychiatric Psychiatric exam: Present: normal affect, normal mood Internal Med - H&P Results - Labs CBC & Chem 7: 11/28/17 09:51 11/28/17 09:06
[2017-11-28] MEDS ORDERED: Piperacillin/Tazobactam 3.375 GM in 0.9 % Sodium Chloride Mini Bag 100 ML IVPB SCH (16:00)
[2017-11-28 16:35] LABS: INR 2.8; Prothrombin Time 31.1 Seconds (9.4-12.1)
[2017-11-28] MEDS: Acetaminophen 325 MG TABLET PO PRN (19:16)
[2017-11-28] MEDS: Furosemide 40 MG/4 ML VIAL IVP SCH (19:55)
[2017-11-28] MEDS ORDERED: Furosemide 40 MG/4 ML VIAL IVP SCH (21:00)
[2017-11-28] MEDS ORDERED: RESTASIS OP SCH (21:00)
[2017-11-28] MEDS: (Azelastine Hcl [Azelastine Hcl] 1 DROP) OP SCH (22:35)
--- NOTE | 2017-11-28 22:44 | Event Note ---
Date of Encounter: 11/28/17 Time of Encounter: 22:21 Notified this evening of troponin of 0.56. This is the 3rd in the series. The patient was admitted with sepsis pneumonia and acute on chronic respiratory failure with hypoxia. Troponin elevation is likely result of demand ischemia as she is denying any chest pain or shortness of breath. The patient is currently anticoagulated with Coumadin and was severe supratherapeutic originally this morning however PT INR is now 2.8/31.1. Consult cardiology, dayshift team to call.
[2017-11-29] MEDS: Piperacillin/Tazobactam 3.375 GM in 0.9 % Sodium Chloride Mini Bag 100 ML IVPB SCH ×2 (05:21→18:00)
[2017-11-29 06:54] LABS: Basophils % 0.1 %; Hematocrit 21.6 % (35.3-44.9); Hemoglobin 6.4 g/dL (11.5-15.4); Immature Granulocytes % 0.8 % (0-4); Lymphocytes # 0.6 K/mcL (0.6-4.6); Lymphocytes % 5.6 %; Mean Corpuscular HGB Conc 29.6 g/dL (31.6-35.5); Mean Corpuscular Hemoglobin 29.2 pg (28.0-33.3); Mean Corpuscular Volume 98.6 fL (83.0-100.0); Mean Platelet Volume 10.1 fL (9.4-12.4); Monocytes # 0.7 K/mcL (0.0-1.3); Monocytes % 6.6 %; Neutrophils # 9.6 K/mcL (1.6-8.9); Nucleated Red Blood Cells 1.7 /100 WBC (0); Platelet Count 134 K/mcL (140-400); Red Blood Count 2.19 M/mcL (3.82-4.97); Red Cell Distribution Width 21.1 % (11.5-14.5); Segmented Neutrophils % 86.9 %
[2017-11-29 06:59] LABS: INR 1.6; Prothrombin Time 17.1 Seconds (9.4-12.1)
[2017-11-29 07:12] LABS: Albumin 3.4 g/dL (3.5-5.7); Albumin/Globulin Ratio 1.4 (1.1-2.2); Bilirubin,Total 1.3 mg/dL (0.3-1.0); Calcium 8.9 mg/dL (8.6-10.3); Chol/HDL Ratio 4.5 (0-4.9); Globulin 2.4 g/dL (2.4-3.5); Magnesium 2.1 mg/dL (1.6-2.6); Potassium 3.4 mEq/L (3.5-5.1); Total Protein 5.8 g/dL (6.4-8.9)
[2017-11-29] MEDS: (Azelastine Hcl [Azelastine Hcl] 1 DROP) OP SCH (07:38)
[2017-11-29] MEDS: *HR* Amiodarone 200 MG TABLET PO SCH (07:42)
[2017-11-29] MEDS: Loratadine 10 MG TABLET PO SCH (07:42)
[2017-11-29] MEDS: Isosorbide MONOnitrate (24 HR) 60 MG TAB.ER.24H PO SCH (07:43)
[2017-11-29] MEDS: Furosemide 40 MG/4 ML VIAL IVP SCH ×2 (07:43→18:00)
[2017-11-29] MEDS: Fluticasone Propionate Nasal 50 MCG/SPRAY BOTTLE NS SCH (07:44)
[2017-11-29] MEDS ORDERED: *HR* Amiodarone 200 MG TABLET PO SCH (09:00)
[2017-11-29] MEDS ORDERED: Fluticasone Propionate Nasal 50 MCG/SPRAY BOTTLE NS SCH (09:00)
[2017-11-29] MEDS ORDERED: Loratadine 10 MG TABLET PO SCH (09:00)
[2017-11-29] MEDS ORDERED: Isosorbide MONOnitrate (24 HR) 60 MG TAB.ER.24H PO SCH (09:00)
[2017-11-29] MEDS ORDERED: (Fluticasone/Vilanterol [Breo Ellipta 100-25 Mcg Inh] IH SCH (09:00)
--- NOTE | 2017-11-29 09:40 | Cardiology Consult Note ---
Date of Encounter: 11/29/17 Time of Encounter: 09:39 Assessment and Plan (1) Elevated troponin Current Visit: Yes Status: Acute Elevated troponin likely secondary to sepsis, doubt ACS. Would continue medical mgmt. Doubt further cardiac testing will be needed. (2) Paroxysmal A-fib Current Visit: Yes Status: Acute AF, atypical atrial flutter. Continue amio., resume anticoagulation when able. Discussion w patient/family: The assessment and plan as outlined above was discussed with the patient and/or family members who expressed understanding and agreement. All questions were answered. Thank you for involving us in the care of your patient. Please call with any questions. History of Present Illness Consult date: 11/29/17 Requesting physician: Edgard Newman Consult reason: Abnormal troponin History of present illness: Ms. Barber is a 72 year old female with multiple medical problems including bicuspid aortic valve S/P Ross procedure, AF , diastolic CHF presents with sepsis form possible pneumonia and supratherapeutic INR. Noted to have mildy positive trop. which is likely secondary. C/O SOB but no chest pain. Past Med Surg Social Fam HX - Past Medical History Medical history: arthritis, asthma, cardiomyopathy, CHF, COPD, GERD, hyperlipidemia, hypertension, osteoporosis, renal disease, venous stasis, valvular heart disease, other Psychiatric history: anxiety, depression - Past Surgical History Surgical History: cataract, cholecystectomy, heart valve replacement, herniorrhaphy, hysterectomy, knee replacement, orthopedic, other, sinus surgery , other - Social History Smoking Status: Never smoker Smokeless Tobacco Status: No Alcohol use: none Drug use: none - Family History Father History Unknown: Yes Family Member Ethnicity: Non- Living Status: Hx Family Cardiac Disorders: Yes (HD, Pig valve, HD) Hx Family Cancer: Yes (Cancer on lip) Hx Family GI Disorders: Yes (CKD) Hx Family Endocrine Disorder: Yes (Gallstones) Sister History Unknown: Yes Family Member Ethnicity: Non- Living Status: Hx Family Endocrine Disorder: Yes (DM) Mother History Unknown: Yes Living Status: Hx Family Cardiac Disorders: Yes (HD, Anemia) Medications and Allergies Cyclosporine [Restasis] 1 drop BOTH EYES BID 04/30/15 [History] Isosorbide MONOnitrate [Isosorbide Mononitrate ER] 60 mg PO DAILY 04/30/15 [ History] Potassium Chloride 20 meq PO DAILY 06/19/16 [History] Calcitriol [Rocaltrol] 0.25 mcg PO DAILY 03/20/17 [History] Azelastine HCl 1 drop OP BID 07/20/17 [History] Fluticasone/Vilanterol [Breo Ellipta 100-25 Mcg INH] 1 each IH DAILY 07/20/17 [ History] Loratadine [Claritin] 10 mg PO DAILY 07/20/17 [History] Nystatin POWDER [Nystop] 1 appl TP BID 07/20/17 [History] Tamsulosin [Flomax] 0.4 mg PO DAILY 07/20/17 [History] Albuterol Sulfate [Albuterol Inhaler] 2 puff IH Q4HR PRN 08/27/17 [History] Atorvastatin Calcium [Lipitor] 20 mg PO HS 10/06/17 [History] Esomeprazole Magnesium [Nexium] 40 mg PO DAILY 10/06/17 [History] Aspirin Enteric Coated [Aspirin EC] 81 mg PO DAILY tablet. 11/02/17 [Rx] Metoprolol [Lopressor] 12.5 mg PO BID #60 tablet 11/02/17 [Rx] Furosemide [Lasix] 20 mg PO BID #90 tablet 11/03/17 [Rx] Amiodarone [Cordarone] 200 mg PO DAILY 11/28/17 [History] Fluticasone Propionate Nasal [Flonase] 1 spray NS DAILY 11/28/17 [History] Warfarin [Coumadin] 2 mg PO 1800 11/28/17 [History] 3 Allergy/AdvReac Type Severity Reaction Status Date / Time ciprofloxacin [From Cipro] Allergy Hives Verified 08/27/17 11:02 meperidine [From Demerol] AdvReac Vomiting Verified 08/27/17 11:02 All Systems Review: The remainder of the systems were reviewed and are negative Physical Examination Vital Signs, Last 4 Hours Temp Pulse Resp BP Pulse Ox 11/29/17 07:27 98.0 F 104 18 138/76 99 General: Conversant, No Apparent Distress HEENT: Atraumatic, Normocephaly, Mucus Membranes Moist Neck: No JVD, Normal carotid pulses Cardiac: Other (Irregular, systolic murmur) Lungs: Other (Scattered ronchi) Neuro: Alert and responsive, No focal deficits noted Abdomen: Soft Skin: No rashes noted on visualized skin Results 11/29/17 06:33 11/29/17 06:33 Lab Results 11/28/17 11/28/17 11/28/17 16:08 16:08 21:30 WBC Hgb Hct Plt Count INR 2.8 D Sodium Potassium Chloride Carbon Dioxide BUN Creatinine Glucose Calcium Magnesium Total Bilirubin AST ALT Alkaline Phosphatase Troponin I 0.14 H* 0.56 H* 11/29/17 11/29/17 11/29/17 06:33 06:33 06:33 WBC 11.0 Hgb 6.4 L Hct 21.6 L Plt Count 134 L INR 1.6 Sodium 147 H Potassium 3.4 L Chloride 109 H Carbon Dioxide 32 H BUN 50 H Creatinine 1.94 H Glucose 120 H Calcium 8.9 Magnesium 2.1 Total Bilirubin 1.3 H AST 16 ALT 16 Alkaline Phosphatase 54 Troponin I Consult Discharge Plan - Plan Referrals: Lokesh Cooper MD [Primary Care Provider] -
[2017-11-29] MEDS ORDERED: 0.9 % Sodium Chloride 250 ML ONE (10:50)
[2017-11-29 11:40] LABS: Hemoglobin 6.6 g/dL (11.5-15.4)
--- NOTE | 2017-11-29 17:39 | Internal Med Progress Note ---
Date of Encounter: 11/29/17 Time of Encounter: 12:15 - Assessment and plan (1) Supratherapeutic INR Current Visit: Yes Status: Acute Assessment and plan: Due to sepsis s/p IV Vit K 10 mg and 2 U FFP Improved INR today @ 1.6 (2) Sepsis Current Visit: Yes Status: Acute Assessment and plan: Pt does meet sepsis criteria with elevated WBC, source of inf as pneumonia and tachycardia Blood Cx - P Con broad spec abx Zosyn Qualifiers: Qualified Code(s): A41.9 - Sepsis, unspecified organism (3) Acute respiratory failure with hypoxia Current Visit: No Status: Acute Assessment and plan: Due to CHF exacerbation + PNA Improving Cont empirical abx, Cont diuresis IV lasix (4) Pneumonia Current Visit: Yes Status: Acute Assessment and plan: Mostly bacterial Qualifiers: Pneumonia type: due to unspecified organism Laterality: right Lung location: middle lobe of lung Qualified Code(s): J18.1 - Lobar pneumonia, unspecified organism (5) Diastolic CHF, acute on chronic Current Visit: No Status: Acute Assessment and plan: Decompensated Improving slowly Strict I & O Cont IV Lasix Resumed all other home meds (6) Elevated troponin Current Visit: Yes Status: Acute Assessment and plan: NSTEMI Due to demand ischemia + CHF exacerbation + Sepsis cont close monitoring for now Card on board resume anti coag with Coumadin today (7) Paroxysmal A-fib Current Visit: Yes Status: Acute Assessment and plan: rate controlled with BB + Amiodarone Resumed Coumadin (8) CKD (chronic kidney disease) stage 4, GFR 15-29 ml/min Current Visit: No Status: Chronic (9) COPD (chronic obstructive pulmonary disease) Current Visit: No Status: Chronic Assessment and plan: On Duoneb Qualifiers: COPD type: unspecified COPD Qualified Code(s): J44.9 - Chronic obstructive pulmonary disease, unspecified (10) Hypertension Current Visit: No Status: Chronic Assessment and plan: stable with current meds Qualifiers: Hypertension type: essential hypertension Qualified Code(s): I10 - Essential (primary) hypertension - Subjective Interval history: Ms. Barber is a 72 year old female PMHX of diastolic CHF, COPD not oxygen dependent, CAD, retinitis pigmentosa, history of subdural hematoma in May 2017 after a fall, Pablo Bonnet Syndrome, nearly blind, GERD, hyperlipidemia, hypertension, osteoporosis, chronic kidney disease stage IV, and recently diagnosed Francisco Javier Hartley currently on Coumadin for anti coag, who presented to the ER complaining of shortness of breath. She has been having multiple falls at home.Her lab work showed significantly elevated INR 23.1. Pt was admitted into ICU for close monitoring. Her INR improved so she got moved to step down unit. Pt is more alert, awake and O x 3. Denied any CP. Still has mild SOB. No abdominal pain. - Constitutional Vitals: Temp Pulse Resp BP Pulse Ox 98.7 F 102 16 127/86 99 11/29/17 15:30 11/29/17 15:30 11/29/17 13:58 11/29/17 15:30 11/29/17 15:30 General appearance: Present: cooperative, A&O X 3, answers questions appropriately - Head Head exam: Present: atraumatic, normal inspection - Neck Neck exam general surgery: Present: supple - Respiratory Respiratory exam: Present: decreased breath sounds. Absent: rales, respiratory distress, rhonchi, wheezes - Cardiovascular Cardiovascular exam: Present: irregular rhythm, +S1, +S2. Absent: tachycardia - GI/Abdominal GI/Abdominal exam: Present: normal bowel sounds, soft. Absent: rebound, rigid, tenderness - Extremities Exam Extremities exam: Present: pedal edema. Absent: calf tenderness, tenderness - Back Exam Back exam: Absent: CVA tenderness (L), CVA tenderness (R) - Neurological Exam Neurological exam: Present: alert, oriented X3 - Psychiatric Psychiatric exam: Present: normal affect, normal mood Internal Medicine: Result - Labs CBC & Chem 7: 11/29/17 10:42 11/29/17 06:33 Labs: Short CBC 11/29/17 11/29/17 Range/Units 06:33 10:42 WBC 11.0 (4.3-11.1) K/mcL Hgb 6.4 L 6.6 L (11.5-15.4) g/dL Hct 21.6 L 23.0 L (35.3-44.9) % Plt Count 134 L (140-400) K/mcL Neutrophils # 9.6 H (1.6-8.9) K/mcL BMP 11/29/17 06:33 Sodium 147 H Potassium 3.4 L Chloride 109 H Carbon Dioxide 32 H BUN 50 H Creatinine 1.94 H Glucose 120 H Calcium 8.9 Cardiac Enzymes 11/28/17 11/28/17 Range/Units 16:08 21:30 Troponin I 0.14 H* 0.56 H* (< 0.04) ng/mL Liver Function 11/29/17 Range/Units 06:33 Total Bilirubin 1.3 H (0.3-1.0) mg/dL AST 16 (13-39) Units/L ALT 16 (7-52) Units/L Alkaline Phosphatase 54 (34-104) Units/L Albumin 3.4 L (3.5-5.7) g/dL - ABG Interpretation ABG results: PT/INR, D-dimer PT 17.1 Seconds (9.4-12.1) H 11/29/17 06:33 Consult Discharge Plan - Plan Referrals: Lokesh Cooper MD [Primary Care Provider] -
[2017-11-29] MEDS ORDERED: Warfarin perPT PO PRN (18:00)
[2017-11-29] MEDS: Acetaminophen 325 MG TABLET PO PRN (19:17)
[2017-11-30 03:43] LABS: Eosinophils # 0.1 K/mcL (0.0-0.6); Eosinophils % 0.8 %; Hematocrit 29.7 % (35.3-44.9); Lymphocytes # 0.8 K/mcL (0.6-4.6); Lymphocytes % 7.7 %; Mean Corpuscular HGB Conc 31.3 g/dL (31.6-35.5); Mean Corpuscular Hemoglobin 29.7 pg (28.0-33.3); Mean Corpuscular Volume 94.9 fL (83.0-100.0); Mean Platelet Volume 10.2 fL (9.4-12.4); Monocytes # 0.7 K/mcL (0.0-1.3); Monocytes % 6.5 %; Neutrophils # 9.1 K/mcL (1.6-8.9); Nucleated Red Blood Cells 0.9 /100 WBC (0); Platelet Count 125 K/mcL (140-400); Red Blood Count 3.13 M/mcL (3.82-4.97); Red Cell Distribution Width 19.6 % (11.5-14.5)
[2017-11-30 03:47] LABS: Hemoglobin 9.3 g/dL (11.5-15.4)
[2017-11-30 04:05] LABS: Calcium 8.7 mg/dL (8.6-10.3); Magnesium 1.9 mg/dL (1.6-2.6)
[2017-11-30 04:15] LABS: Troponin I 1.58 ng/mL (< 0.04)
[2017-11-30] MEDS: Piperacillin/Tazobactam 3.375 GM in 0.9 % Sodium Chloride Mini Bag 100 ML IVPB SCH ×2 (05:50→16:45)
[2017-11-30] MEDS: (Azelastine Hcl [Azelastine Hcl] 1 DROP) OP SCH ×3 (05:51→21:15)
[2017-11-30] MEDS: Isosorbide MONOnitrate (24 HR) 60 MG TAB.ER.24H PO SCH (08:37)
[2017-11-30] MEDS: Loratadine 10 MG TABLET PO SCH (08:37)
[2017-11-30] MEDS: *HR* Amiodarone 200 MG TABLET PO SCH (08:37)
[2017-11-30] MEDS: Furosemide 40 MG/4 ML VIAL IVP SCH ×2 (08:37→16:09)
[2017-11-30] MEDS: Fluticasone Propionate Nasal 50 MCG/SPRAY BOTTLE NS SCH (08:38)
[2017-11-30] MEDS: *HR* HYDROcodone/Acet 5/325 mg TABLET PO PRN ×2 (09:04→16:08)
[2017-11-30] MEDS: Ipratropium/Albuterol Neb 3 ML IH SCH ×4 (10:45→20:48)
--- NOTE | 2017-11-30 17:50 | Internal Med Progress Note ---
Date of Encounter: 11/30/17 Time of Encounter: 17:49 - Assessment and plan (1) Supratherapeutic INR Current Visit: Yes Status: Acute Assessment and plan: Due to sepsis Resolved s/p IV Vit K 10 mg and 2 U FFP Improved INR Resumed Coumadin (2) Sepsis Current Visit: Yes Status: Acute Assessment and plan: Pt does meet sepsis criteria with elevated WBC, source of inf as pneumonia and tachycardia Blood Cx - No growth so far Con broad spec abx Zosyn Qualifiers: Sepsis type: sepsis due to unspecified organism Qualified Code(s): A41.9 - Sepsis, unspecified organism (3) Acute respiratory failure with hypoxia Current Visit: No Status: Acute Assessment and plan: Due to CHF exacerbation + PNA Improving Cont empirical abx, Cont diuresis IV lasix (4) Pneumonia Current Visit: Yes Status: Acute Assessment and plan: Mostly bacterial on Abx Zosyn will change to PO Augmentin in AM Qualifiers: Pneumonia type: due to unspecified organism Laterality: right Lung location: middle lobe of lung Qualified Code(s): J18.1 - Lobar pneumonia, unspecified organism (5) Diastolic CHF, acute on chronic Current Visit: No Status: Acute Assessment and plan: Decompensated Improving slowly Strict I & O Cont IV Lasix Resumed all other home meds (6) Elevated troponin Current Visit: Yes Status: Acute Assessment and plan: NSTEMI Peaked at 1.58, started trending down now Due to demand ischemia + CHF exacerbation + Sepsis cont close monitoring for now Card on board resume anti coag with Coumadin (7) Paroxysmal A-fib Current Visit: Yes Status: Acute (8) CKD (chronic kidney disease) stage 4, GFR 15-29 ml/min Current Visit: No Status: Chronic (9) COPD (chronic obstructive pulmonary disease) Current Visit: No Status: Chronic Assessment and plan: On Duoneb Qualifiers: COPD type: unspecified COPD Qualified Code(s): J44.9 - Chronic obstructive pulmonary disease, unspecified (10) Hypertension Current Visit: No Status: Chronic Assessment and plan: stable with current meds Qualifiers: Hypertension type: essential hypertension Qualified Code(s): I10 - Essential (primary) hypertension - Subjective Interval history: Ms. Barber is a 72 year old female PMHX of diastolic CHF, COPD not oxygen dependent, CAD, retinitis pigmentosa, history of subdural hematoma in May 2017 after a fall, Pablo Bonnet Syndrome, nearly blind, GERD, hyperlipidemia, hypertension, osteoporosis, chronic kidney disease stage IV, and recently diagnosed Francisco Javier Hartley currently on Coumadin for anti coag, who presented to the ER complaining of shortness of breath. She has been having multiple falls at home.Her lab work showed significantly elevated INR 23.1. Pt was admitted into ICU for close monitoring. Her INR improved so she got moved to step down unit. Pt is more alert, awake and O x 3. Denied any CP. Pt stated her SOB also lot better today. Overall feels better. - Constitutional Vitals: Temp Pulse Resp BP Pulse Ox 97.7 F 105 16 119/65 96 11/30/17 12:12 11/30/17 15:56 11/30/17 15:56 11/30/17 16:45 11/30/17 15:56 General appearance: Present: cooperative, A&O X 3, answers questions appropriately - Head Head exam: Present: atraumatic, normal inspection - Neck Neck exam general surgery: Present: supple - Respiratory Respiratory exam: Present: decreased breath sounds, rales (+), wheezes (mild). Absent: respiratory distress, rhonchi - Cardiovascular Cardiovascular exam: Present: irregular rhythm, +S1, +S2. Absent: tachycardia - GI/Abdominal GI/Abdominal exam: Present: normal bowel sounds, soft. Absent: rebound, rigid, tenderness - Extremities Exam Extremities exam: Present: pedal edema (2+ ..Improving). Absent: calf tenderness, tenderness - Back Exam Back exam: Absent: CVA tenderness (L), CVA tenderness (R) - Neurological Exam Neurological exam: Present: alert, oriented X3 - Psychiatric Psychiatric exam: Present: normal affect, normal mood - Skin Skin exam: Absent: rash Internal Medicine: Result - Labs CBC & Chem 7: 11/30/17 03:10 11/30/17 03:10 Labs: Short CBC 11/30/17 Range/Units 03:10 WBC 10.9 (4.3-11.1) K/mcL Hgb 9.3 L D (11.5-15.4) g/dL Hct 29.7 L (35.3-44.9) % Plt Count 125 L (140-400) K/mcL Neutrophils # 9.1 H (1.6-8.9) K/mcL BMP 11/30/17 03:10 Sodium 146 H Potassium 3.0 L Chloride 106 Carbon Dioxide 31 H BUN 54 H Creatinine 2.07 H Glucose 97 Calcium 8.7 Cardiac Enzymes 11/30/17 11/30/17 Range/Units 03:10 09:34 Troponin I 1.58 H* 1.15 H* (< 0.04) ng/mL - ABG Interpretation ABG results: PT/INR, D-dimer PT 17.1 Seconds (9.4-12.1) H 11/29/17 06:33 - Impressions Impressions Chest X-Ray 11/30/17 09:04 IMPRESSION: No significant change in left-sided effusion and associated airspace disease which could represent atelectasis or pneumonia. D/ / Jose Edwards MD / Jose Edwards MD Interpreting Provider: Jose Edwards MD Consult Discharge Plan - Plan Referrals: Lokesh Cooper MD [Primary Care Provider] - 12/08/17 9:45 am
[2017-11-30] MEDS ORDERED: *HR* Warfarin 2 MG TABLET PO ONE (18:00)
[2017-12-01] MEDS: Ipratropium/Albuterol Neb 3 ML IH SCH ×6 (00:02→19:55)
[2017-12-01] MEDS: Acetaminophen 325 MG TABLET PO PRN ×2 (00:17→18:13)
[2017-12-01 05:10] LABS: Basophils % 0.1 %; Eosinophils # 0.1 K/mcL (0.0-0.6); Eosinophils % 1.2 %; Hematocrit 27.6 % (35.3-44.9); Hemoglobin 8.6 g/dL (11.5-15.4); Immature Granulocytes % 0.6 % (0-4); Lymphocytes # 0.6 K/mcL (0.6-4.6); Lymphocytes % 6.7 %; Mean Corpuscular HGB Conc 31.2 g/dL (31.6-35.5); Mean Corpuscular Hemoglobin 29.9 pg (28.0-33.3); Mean Corpuscular Volume 95.8 fL (83.0-100.0); Mean Platelet Volume 10.9 fL (9.4-12.4); Monocytes # 0.6 K/mcL (0.0-1.3); Monocytes % 6.5 %; Neutrophils # 7.4 K/mcL (1.6-8.9); Nucleated Red Blood Cells 0.7 /100 WBC (0); Platelet Count 104 K/mcL (140-400); Red Blood Count 2.88 M/mcL (3.82-4.97); Red Cell Distribution Width 19.9 % (11.5-14.5); Segmented Neutrophils % 84.9 %
[2017-12-01 05:17] LABS: INR 1.4
[2017-12-01 05:26] LABS: Calcium 8.4 mg/dL (8.6-10.3); Magnesium 1.8 mg/dL (1.6-2.6); Potassium 3.1 mEq/L (3.5-5.1)
[2017-12-01] MEDS: Piperacillin/Tazobactam 3.375 GM in 0.9 % Sodium Chloride Mini Bag 100 ML IVPB SCH ×2 (05:51→17:11)
--- NOTE | 2017-12-01 07:14 | Electrocardiograph Report ---
[address] [address] Test Date: 2017-11-30 Pat Name: Janiya Barber Department: 110 Room: 2N04 Gender: F Account Support Manager: TOVA : 1945 Requested By: Néstor Chacon Order Number: [id number] Reading MD: Arnaud Strickland MD Measurements Intervals [place] Rate: 104 P: [place]: 0 QRS: 47 QRSD: 95 T: 240 QT: 210 QTc: 271 Interpretive Statements Supraventricular Tachycardia 2:1 BLOCK, CONSIDER ATRIAL FLUTTER Electronically Signed On 12-01-2017 7:12:28 EDT by Arnaud Strickland MD
[2017-12-01] MEDS ORDERED: Potassium Chloride Elixir 20 MEQ/15 ML UDC PO ONE (08:19)
[2017-12-01] MEDS: *HR* Amiodarone 200 MG TABLET PO SCH (08:22)
[2017-12-01] MEDS: Loratadine 10 MG TABLET PO SCH (08:22)
[2017-12-01] MEDS: Isosorbide MONOnitrate (24 HR) 60 MG TAB.ER.24H PO SCH (08:22)
[2017-12-01] MEDS: Furosemide 40 MG/4 ML VIAL IVP SCH ×2 (08:23→17:18)
[2017-12-01] MEDS: Fluticasone Propionate Nasal 50 MCG/SPRAY BOTTLE NS SCH (08:34)
[2017-12-01] MEDS: (Azelastine Hcl [Azelastine Hcl] 1 DROP) OP SCH ×2 (10:03→19:52)
[2017-12-01] MEDS ORDERED: MOM Conc 10 ML UD.LIQ PO PRN (12:10)
--- NOTE | 2017-12-01 16:52 | Electrocardiograph Report ---
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
--- NOTE | 2017-12-01 17:53 | Internal Med Progress Note ---
Date of Encounter: 12/01/17 Time of Encounter: 10:00 - Assessment and plan (1) Supratherapeutic INR Current Visit: Yes Status: Acute Assessment and plan: Due to sepsis Resolved s/p IV Vit K 10 mg and 2 U FFP Improved INR ..today @ 1.4 Resumed Coumadin (2) Sepsis Current Visit: Yes Status: Acute Assessment and plan: Pt does meet sepsis criteria with elevated WBC, source of inf as pneumonia and tachycardia Blood Cx - No growth so far Con broad spec abx Zosyn Qualifiers: Sepsis type: sepsis due to unspecified organism Qualified Code(s): A41.9 - Sepsis, unspecified organism (3) Acute respiratory failure with hypoxia Current Visit: No Status: Acute Assessment and plan: Due to CHF exacerbation + PNA Improving Cont empirical abx, will switch to PO Lasix (4) Pneumonia Current Visit: Yes Status: Acute Assessment and plan: Mostly bacterial on Abx Zosyn will change to PO Augmentin in AM Qualifiers: Pneumonia type: due to unspecified organism Laterality: right Lung location: middle lobe of lung Qualified Code(s): J18.1 - Lobar pneumonia, unspecified organism (5) Diastolic CHF, acute on chronic Current Visit: No Status: Acute Assessment and plan: Decompensated Improving slowly Strict I & O Switch to PO Lasix Resumed all other home meds (6) Elevated troponin Current Visit: Yes Status: Acute Assessment and plan: NSTEMI Peaked at 1.58, started trending down now Due to demand ischemia + CHF exacerbation + Sepsis cont close monitoring for now Card on board resume anti coag with Coumadin Her Echo fro 10/07/17 showed Preserved LVEF, atypical septal motion consistent with post operative status (7) Paroxysmal A-fib Current Visit: Yes Status: Acute Assessment and plan: rate fairly controlled Inc Metoprolol to 50mg BID (8) CKD (chronic kidney disease) stage 4, GFR 15-29 ml/min Current Visit: No Status: Chronic (9) COPD (chronic obstructive pulmonary disease) Current Visit: No Status: Chronic Qualifiers: COPD type: unspecified COPD Qualified Code(s): J44.9 - Chronic obstructive pulmonary disease, unspecified (10) Hypertension Current Visit: No Status: Chronic Qualifiers: Hypertension type: essential hypertension Qualified Code(s): I10 - Essential (primary) hypertension - Subjective Interval history: Ms. Barber is a 72 year old female PMHX of diastolic CHF, COPD not oxygen dependent, CAD, retinitis pigmentosa, history of subdural hematoma in May 2017 after a fall, Pablo Bonnet Syndrome, nearly blind, GERD, hyperlipidemia, hypertension, osteoporosis, chronic kidney disease stage IV, and recently diagnosed A. Flutter currently on Coumadin for anti coag, who presented to the ER complaining of shortness of breath. She has been having multiple falls at home.Her lab work showed significantly elevated INR 23.1. Pt was admitted into ICU for close monitoring. Her INR improved so she got moved to step down unit. Pt is more alert, awake and O x 3. Denied any CP. Pt stated her SOB also lot better today. Overall feels better. No events over night - Constitutional Vitals: Temp Pulse Resp BP Pulse Ox 97.9 F 107 21 120/71 95 12/01/17 15:34 12/01/17 15:34 12/01/17 15:34 12/01/17 15:34 12/01/17 15:34 General appearance: Present: cooperative, A&O X 3, answers questions appropriately - Head Head exam: Present: atraumatic, normal inspection - Neck Neck exam general surgery: Present: supple - Respiratory Respiratory exam: Present: decreased breath sounds, wheezes (mild). Absent: rales, respiratory distress, rhonchi - Cardiovascular Cardiovascular exam: Present: RRR, +S1, +S2. Absent: tachycardia - GI/Abdominal GI/Abdominal exam: Present: normal bowel sounds, soft. Absent: rebound, rigid, tenderness - Extremities Exam Extremities exam: Present: pedal edema (improving). Absent: calf tenderness, tenderness - Back Exam Back exam: Absent: CVA tenderness (L), CVA tenderness (R) - Neurological Exam Neurological exam: Present: alert, oriented X3 - Psychiatric Psychiatric exam: Present: normal affect, normal mood Internal Medicine: Result - Labs CBC & Chem 7: 12/01/17 03:31 12/01/17 03:31 Labs: Short CBC 12/01/17 Range/Units 03:31 WBC 8.7 (4.3-11.1) K/mcL Hgb 8.6 L (11.5-15.4) g/dL Hct 27.6 L (35.3-44.9) % Plt Count 104 L (140-400) K/mcL Neutrophils # 7.4 (1.6-8.9) K/mcL BMP 12/01/17 03:31 Sodium 146 H Potassium 3.1 L Chloride 104 Carbon Dioxide 31 H BUN 50 H Creatinine 1.91 H Glucose 97 Calcium 8.4 L - ABG Interpretation ABG results: PT/INR, D-dimer PT 15.0 Seconds (9.4-12.1) H 12/01/17 03:31 Consult Discharge Plan - Plan Referrals: Lokesh Cooper MD [Primary Care Provider] - 12/08/17 9:45 am
[2017-12-01] MEDS ORDERED: Furosemide 40 MG TABLET PO SCH (18:00)
[2017-12-01] MEDS ORDERED: *HR* Warfarin 3 MG TABLET PO ONE (18:00)
[2017-12-02] MEDS: Ipratropium/Albuterol Neb 3 ML IH SCH ×4 (00:25→11:36)
[2017-12-02 03:49] LABS: Mean Corpuscular Volume 95.5 fL (83.0-100.0)
[2017-12-02 03:51] LABS: Eosinophils # 0.1 K/mcL (0.0-0.6); Eosinophils % 1.2 %; Hematocrit 27.7 % (35.3-44.9); Hemoglobin 8.6 g/dL (11.5-15.4); Immature Granulocytes % 0.8 % (0-4); Immature Platelets 4.1 % (1.1-6.1); Lymphocytes # 0.6 K/mcL (0.6-4.6); Lymphocytes % 9.6 %; Mean Corpuscular Hemoglobin 29.7 pg (28.0-33.3); Mean Platelet Volume 10.6 fL (9.4-12.4); Monocytes # 0.5 K/mcL (0.0-1.3); Monocytes % 7.1 %; Neutrophils # 5.4 K/mcL (1.6-8.9); Nucleated Red Blood Cells 0.8 /100 WBC (0); Platelet Count 101 K/mcL (140-400); Red Cell Distribution Width 19.9 % (11.5-14.5); Segmented Neutrophils % 81.3 %
[2017-12-02 04:33] LABS: INR 1.9; Prothrombin Time 20.2 Seconds (9.4-12.1)
[2017-12-02 05:22] LABS: Calcium 8.3 mg/dL (8.6-10.3); Magnesium 2.1 mg/dL (1.6-2.6); Potassium 3.2 mEq/L (3.5-5.1)
[2017-12-02] MEDS: Piperacillin/Tazobactam 3.375 GM in 0.9 % Sodium Chloride Mini Bag 100 ML IVPB SCH (06:00)
[2017-12-02] MEDS: Acetaminophen 325 MG TABLET PO PRN (06:06)
[2017-12-02] MEDS ORDERED: Furosemide 40 MG TABLET PO SCH (08:00)
[2017-12-02] MEDS: Loratadine 10 MG TABLET PO SCH (08:26)
[2017-12-02] MEDS: *HR* Amiodarone 200 MG TABLET PO SCH (08:26)
[2017-12-02] MEDS: Isosorbide MONOnitrate (24 HR) 60 MG TAB.ER.24H PO SCH (08:27)
[2017-12-02] MEDS: Fluticasone Propionate Nasal 50 MCG/SPRAY BOTTLE NS SCH (08:27)
[2017-12-02] MEDS: (Azelastine Hcl [Azelastine Hcl] 1 DROP) OP SCH (08:40)
--- NOTE | 2017-12-02 10:24 | Discharge Summary ---
- NOTES TO OUTPATIENT PROVIDER Notes to Outpatient Provider: Please stop taking Coumadin since you are high risk for fall and bleeding. Cont taking Lasix 40mg BID for now, once your leg swelling improves you can go down to daily dose. Also talk to SNF staff about life alert for emergency situations. f/u with [facility] Dr. Mantilla in 1 week Orders not resulted at time of discharge: Pending orders 11/29/17 10:30 Red Blood Cells [BBK] Stat 11/30/17 09:06 Culture,Sputum with Gram Stain [RM] Stat Respiratory Infection Panel [MOLMIC] Stat 12/03/17 04:00 PT/INR [Prothrombin Time INR] [COAG] AM 0400 12/04/17 04:00 PT/INR [Prothrombin Time INR] [COAG] AM 0400 12/05/17 04:00 PT/INR [Prothrombin Time INR] [COAG] AM 0400 Date of Encounter: 12/02/17 Time of Encounter: 10:22 - Discharge Diagnosis (1) Supratherapeutic INR Priority: Primary Status: Acute (2) Sepsis Priority: Primary Status: Acute Qualifiers: Sepsis type: sepsis due to unspecified organism Qualified Code(s): A41.9 - Sepsis, unspecified organism (3) Acute respiratory failure with hypoxia Priority: Primary Status: Acute (4) Pneumonia Priority: Primary Status: Acute Qualifiers: Pneumonia type: due to unspecified organism Laterality: right Lung location: middle lobe of lung Qualified Code(s): J18.1 - Lobar pneumonia, unspecified organism (5) Diastolic CHF, acute on chronic Priority: Secondary Status: Acute (6) Elevated troponin Priority: Secondary Status: Acute (7) Paroxysmal A-fib Priority: Secondary Status: Acute (8) CKD (chronic kidney disease) stage 4, GFR 15-29 ml/min Priority: Secondary Status: Chronic (9) COPD (chronic obstructive pulmonary disease) Priority: Secondary Status: Chronic Qualifiers: COPD type: unspecified COPD Qualified Code(s): J44.9 - Chronic obstructive pulmonary disease, unspecified (10) Hypertension Priority: Secondary Status: Chronic Qualifiers: Hypertension type: essential hypertension Qualified Code(s): I10 - Essential (primary) hypertension Hospital course: Ms. Barber is a 72 year old female PMHX of diastolic CHF, COPD not oxygen dependent, CAD, retinitis pigmentosa, history of subdural hematoma in May 2017 after a fall, Pablo Bonnet Syndrome, nearly blind, GERD, hyperlipidemia, hypertension, osteoporosis, chronic kidney disease stage IV, and recently diagnosed Fred. Flutter currently on Coumadin for anti coag, who presented to the ER complaining of shortness of breath. She has been having multiple falls at home.Her lab work showed significantly elevated INR 23.1. Pt was admitted into ICU for close monitoring. Her INR improved so she got moved to step down unit. Pt does have decompensated diastolic CHF exacerbation so started her on aggressive IV diuresis with Lasix 40mg BID. She did meet sepsis criteria initially with Pneumonia. Pt was placed on empirical abx Zosyn and switched to Augmentin today. Pt has been doing well now. She did have significantly elevated Troponin peak at 1. 58 due to demand ischemia and sepsis. Pt was evaluated Card, did not recommend any further work up. She is high risk for falls and possible cranial bleed, so she is not a cnadiate for Coumadin. Talked to [facility] [employer] Dr. Mantilla, pt does have bioprosthetic aortic valve for which she does not need any Coumadin, since it is for A fib and she is high risk for bleeding, so he is ok to d/c her Coumadin. Pt is more alert, awake and O x 3. Tolerating PO intake well. Her pedal edema also improved - Time Spent with Patient Total time spent providing and/or coordinating discharge services: - Discharge Medications Prescriptions: Amoxicillin/Clavulanate [Augmentin] 500 mg PO BIDWM #6 tablet Home Medications: Cyclosporine [Restasis] 1 drop BOTH EYES BID 04/30/15 [History] Isosorbide MONOnitrate [Isosorbide Mononitrate ER] 60 mg PO DAILY 04/30/15 [ History] Potassium Chloride 20 meq PO DAILY 06/19/16 [History] Calcitriol [Rocaltrol] 0.25 mcg PO DAILY 03/20/17 [History] Azelastine HCl 1 drop OP BID 07/20/17 [History] Fluticasone/Vilanterol [Breo Ellipta 100-25 Mcg INH] 1 each IH DAILY 07/20/17 [ History] Loratadine [Claritin] 10 mg PO DAILY 07/20/17 [History] Nystatin POWDER [Nystop] 1 appl TP BID 07/20/17 [History] Tamsulosin [Flomax] 0.4 mg PO DAILY 07/20/17 [History] Albuterol Sulfate [Albuterol Inhaler] 2 puff IH Q4HR PRN 08/27/17 [History] Atorvastatin Calcium [Lipitor] 20 mg PO HS 10/06/17 [History] Esomeprazole Magnesium [Nexium] 40 mg PO DAILY 10/06/17 [History] Aspirin Enteric Coated [Aspirin EC] 81 mg PO DAILY tablet. 11/02/17 [Rx] Amiodarone [Cordarone] 200 mg PO DAILY 11/28/17 [History] Fluticasone Propionate Nasal [Flonase] 1 spray NS DAILY 11/28/17 [History] Amoxicillin/Clavulanate [Augmentin] 500 mg PO BIDWM #6 tablet 12/02/17 [Rx] Docusate [Colace] 100 mg PO BID PRN capsule 12/02/17 [Rx] Fluticasone Propionate Nasal [Flonase] 50 mcg NS DAILY bottle 12/02/17 [Rx] Furosemide [Lasix] 40 mg PO BIDDIURETIC tablet 12/02/17 [Rx] Ipratropium/Albuterol Neb [Duoneb] 3 ml IH [id number] PRN 30 Days inhsol 12/02/17 [Rx] Metoprolol [Lopressor] 50 mg PO BID tablet 12/02/17 [Rx] Omeprazole [PriLOSEC] 20 mg PO DAILY@0630 capsule. 12/02/17 [Rx] Allergies/Adverse Reactions: 3 Allergy/AdvReac Type Severity Reaction Status Date / Time ciprofloxacin [From Cipro] Allergy Hives Verified 08/27/17 11:02 meperidine [From Demerol] AdvReac Vomiting Verified 08/27/17 11:02 Date of admission: 11/28/17 12:57 Primary care physician: Lokesh Cooper MD Consults: 11/28/17 14:49 Consult to Pastoral Services [CONS] Routine Comment: 11/28/17 18:50 Consult to Mixer Pigment [CONS] Routine Reason for SW Consult: Need for placement 11/28/17 22:23 Consult to Cardiology [CONS] Routine Comment: Consulting Provider: Cardiology Apple Reason for Consult: elevated troponin of 0.56. This is the 3rd in the series. 0.7, 0.14 and now 0.56 Time Notified: 22:24 Call Completed: No 11/29/17 13:01 Consult to Physical Therapy [CONS] Routine Comment: Evaluate, develop and implement POC Reason for Consult: Possible need for placement OT [Consult to Occupational Therapy] [CONS] Routine Comment: Evaluate, develop and implement POC Reason for Consult: Possible need for placement - Constitutional Vitals: Temp Pulse Resp BP Pulse Ox 97.6 F 107 16 117/64 94 12/02/17 07:51 12/02/17 08:20 12/02/17 07:51 12/02/17 07:51 12/02/17 07:51 General appearance: Present: cooperative, A&O X 3, answers questions appropriately - Head Head exam: Present: atraumatic, normal inspection - Neck Neck exam general surgery: Present: supple - Respiratory Respiratory exam: Present: decreased breath sounds, wheezes (mild). Absent: respiratory distress, rhonchi - Cardiovascular Cardiovascular exam: Present: +S1, +S2, systolic murmur. Absent: tachycardia - GI/Abdominal GI/Abdominal exam: Present: normal bowel sounds, soft. Absent: rebound, rigid, tenderness - Extremities Exam Extremities exam: Present: pedal edema. Absent: calf tenderness, tenderness - Neurological Exam Neurological exam: Present: alert, oriented X3 - Patient Status Disposition: Transfer SNF Condition: Good Overall status at discharge: patient is back to baseline - Discharge Instructions Follow Up With: Lokesh Cooper MD [Primary Care Provider] - 12/08/17 9:45 am Slim Lopez MD [Partnered Physician] - - Diet and Activity Activity: as per physical therapy, increase activity as tolerated, wear oxygen at all times Diet: low salt diet
--- NOTE | 2017-12-02 10:37 | Physician Discharge Referral ---
ExtendedCare Referral Info Transfer To: ECF Provider in Charge after Transfer: PCP Institutional Level of Care: Skilled (check daily weights) - Diagnosis (1) Supratherapeutic INR Status: Acute (2) Sepsis Status: Acute (3) Acute respiratory failure with hypoxia Status: Acute (4) Pneumonia Status: Acute (5) Diastolic CHF, acute on chronic Status: Acute (6) Elevated troponin Status: Acute (7) Paroxysmal A-fib Status: Acute (8) CKD (chronic kidney disease) stage 4, GFR 15-29 ml/min Status: Chronic (9) COPD (chronic obstructive pulmonary disease) Status: Chronic (10) Hypertension Status: Chronic - Transfer Medications Prescriptions: Amoxicillin/Clavulanate [Augmentin] 500 mg PO BIDWM #6 tablet Home Medications: Cyclosporine [Restasis] 1 drop BOTH EYES BID 04/30/15 [History] Isosorbide MONOnitrate [Isosorbide Mononitrate ER] 60 mg PO DAILY 04/30/15 [ History] Potassium Chloride 20 meq PO DAILY 06/19/16 [History] Calcitriol [Rocaltrol] 0.25 mcg PO DAILY 03/20/17 [History] Azelastine HCl 1 drop OP BID 07/20/17 [History] Fluticasone/Vilanterol [Breo Ellipta 100-25 Mcg INH] 1 each IH DAILY 07/20/17 [ History] Loratadine [Claritin] 10 mg PO DAILY 07/20/17 [History] Nystatin POWDER [Nystop] 1 appl TP BID 07/20/17 [History] Tamsulosin [Flomax] 0.4 mg PO DAILY 07/20/17 [History] Albuterol Sulfate [Albuterol Inhaler] 2 puff IH Q4HR PRN 08/27/17 [History] Atorvastatin Calcium [Lipitor] 20 mg PO HS 10/06/17 [History] Esomeprazole Magnesium [Nexium] 40 mg PO DAILY 10/06/17 [History] Aspirin Enteric Coated [Aspirin EC] 81 mg PO DAILY tablet. 11/02/17 [Rx] Amiodarone [Cordarone] 200 mg PO DAILY 11/28/17 [History] Fluticasone Propionate Nasal [Flonase] 1 spray NS DAILY 11/28/17 [History] Amoxicillin/Clavulanate [Augmentin] 500 mg PO BIDWM #6 tablet 12/02/17 [Rx] Docusate [Colace] 100 mg PO BID PRN capsule 12/02/17 [Rx] Fluticasone Propionate Nasal [Flonase] 50 mcg NS DAILY bottle 12/02/17 [Rx] Furosemide [Lasix] 40 mg PO BIDDIURETIC tablet 12/02/17 [Rx] Ipratropium/Albuterol Neb [Duoneb] 3 ml IH [id number] PRN 30 Days inhsol 12/02/17 [Rx] Metoprolol [Lopressor] 50 mg PO BID tablet 12/02/17 [Rx] Omeprazole [PriLOSEC] 20 mg PO DAILY@0630 capsule. 12/02/17 [Rx] Allergies/Adverse Reactions: 3 Allergy/AdvReac Type Severity Reaction Status Date / Time ciprofloxacin [From Cipro] Allergy Hives Verified 08/27/17 11:02 meperidine [From Demerol] AdvReac Vomiting Verified 08/27/17 11:02 - Respiratory Orders Smoking Cessation: Smoking cessation has been advised. For more information, call the [place] Tobacco Quit Line at 6-077-GMGX-NOW. CERTIFICATION: I certify that the transfer of the above named patient to an Extended Care Facility is necessary for the continuing treatment of the diagnosis listed. The above information is true and accurate reflection of patient's current condition. Confidential - Redisclosure prohibited without a patient's written consent.
[2017-12-02 10:47] VITALS: BP 108/64
[2017-12-02] MEDS ORDERED: *HR* Warfarin 1 MG TABLET PO ONE (18:00)
== END 2017-12-02 15:18 | DRG 871 ==
LOC: EMEROO 09:01 → 2ANU 12:57 → 2NNU 13:02 → ICNU 13:06 → 2NNU 18:14
PROVIDERS: ADMIT Family Medicine; ATTEND Family Medicine

== ENCOUNTER 2018-03-09 16:49 | Inpatient (IN) ==
[2018-03-09] MEDS ORDERED: Piperacillin/Tazobactam 3.375 GM in 0.9 % Sodium Chloride Mini Bag 100 ML IVPB ONE (17:07)
--- NOTE | 2018-03-09 17:12 | Emergency Department Note ---
Disposition Clinical Impression: Paroxysmal A-fib, Chronic kidney disease, stage III (moderate) Acute appendicitis Qualifiers: Acute appendicitis type: unspecified acute appendicitis type Qualified Code(s) : K35.80 - Unspecified acute appendicitis CHF (congestive heart failure) Qualifiers: Heart failure type: unspecified Heart failure chronicity: chronic Qualified Code(s): I50.9 - Heart failure, unspecified Disposition: Admitted As Inpatient Condition: Undetermined Referrals: Lokesh Cooper MD [Primary Care Provider] - Forms: Work/School Release, ED Satisfaction Letter Time of Disposition: 19:19 General Adult HPI - General Chief complaint: ED Abdominal Pain Stated complaint: Abdominal pain Time Seen by Provider: 03/09/18 16:58 Source: patient, EMS Mode of arrival: EMS Limitations: no limitations Nursing Notes Reviewed: Yes Vital Signs Reviewed: Yes - History of Present Illness HPI Narrative: 72-year-old female with history of pancytopenia is currently being seen at the [facility] by Dr. Michelle who receive an outpatient CT of the abdomen and pelvis today arrives to the emergency department with concern for acute appendicitis on CT scan. The patient does state that she does have a small amount of right lower quadrant pain that is nonradiating. No associated nausea. No diarrhea. The patient is unsure when this started. She denies any fevers or chills. Patient has a history of atrial fibrillation, hyperlipidemia, hypertension, and renal disease stage IV. The patient denies any other complaints at this time. She is resting comfortably in the room. The patient does have a history of blindness. - Related Data Home Medications Medication Instructions Recorded Confirmed Cyclosporine [Restasis] 1 drop BOTH EYES BID 04/30/15 03/09/18 Isosorbide MONOnitrate [Isosorbide 60 mg PO DAILY 04/30/15 03/09/18 Mononitrate ER] Potassium Chloride 20 meq PO DAILY 06/19/16 03/09/18 Calcitriol [Rocaltrol] 0.25 mcg PO DAILY 03/20/17 03/09/18 Fluticasone/Vilanterol [Breo 1 each IH DAILY 07/20/17 03/09/18 Ellipta 100-25 Mcg INH] Loratadine [Claritin] 10 mg PO DAILY 07/20/17 03/09/18 Nystatin POWDER [Nystop] 1 appl TP BID 07/20/17 03/09/18 Albuterol Sulfate [Albuterol 2 puff IH Q4HR PRN 08/27/17 03/09/18 Inhaler] Atorvastatin Calcium [Lipitor] 20 mg PO HS 10/06/17 03/09/18 Esomeprazole Magnesium [Nexium] 40 mg PO DAILY 10/06/17 03/09/18 Amiodarone [Cordarone] 200 mg PO DAILY 11/28/17 03/09/18 Acetaminophen [Tylenol] 650 mg PO Q4HR PRN 02/11/18 03/09/18 GuaiFENesin Liq [Robitussin Liq] 200 mg PO Q4HR PRN 02/11/18 03/09/18 Furosemide [Lasix] 40 mg PO DAILY 03/09/18 03/09/18 Quetiapine Fumarate [Seroquel] 50 mg PO HS 03/09/18 03/09/18 Previous Rx's Medication Instructions Recorded Aspirin Enteric Coated [Aspirin EC] 81 mg PO DAILY tablet. 11/02/17 Docusate [Colace] 100 mg PO BID PRN capsule 12/02/17 Fluticasone Propionate Nasal 50 mcg NS DAILY bottle 12/02/17 [Flonase] Ipratropium/Albuterol Neb [Duoneb] 3 ml IH [id number] PRN 30 Days inhsol 12/02/17 Metoprolol [Lopressor] 50 mg PO BID tablet 12/02/17 Allergies Allergy/AdvReac Type Severity Reaction Status Date / Time ciprofloxacin [From Cipro] Allergy Hives Verified 02/11/18 14:06 meperidine [From Demerol] AdvReac Vomiting Verified 02/11/18 14:06 All systems ED: reviewed and negative except as stated. Constitutional: Reports: weakness. Denies: fever, chills ENT ED: Denies: congestion Cardiovascular: Denies: chest pain Respiratory: Denies: dyspnea Gastrointestinal: Reports: abdominal pain. Denies: nausea, vomiting, diarrhea, constipation, hematemesis, melena, hematochezia Genitourinary: Denies: urgency, dysuria Musculoskeletal: Denies: back pain, neck pain Past Medical History - Past Medical History Attestation: Yes The following information was validated with the patient. 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 HEALTH SOCIAL WORKER history: Reports: no MENTAL HEALTH SOCIAL WORKER history - Social History Smoking Status: Never smoker Smokeless Tobacco Status: No Alcohol use: Reports: none Drug use: Reports: none Physical Exam - General Limitations: physical limitation General appearance: alert, in no apparent distress - Head Head exam: atraumatic, normocephalic, normal inspection - Eye Eye exam: Present: EOMI - ENT ENT exam: normal exam, normal oropharynx, mucous membranes moist - Neck Neck exam: Present: normal inspection, full ROM, trachea midline - Chest Chest inspection: Present: normal inspection, symmetric chest wall rise - Respiratory Respiratory exam: Present: normal lung sounds bilaterally - Cardiovascular Cardiovascular exam: Present: regular rate, normal rhythm, normal heart sounds - Abdominal Exam Abdominal exam: Present: soft, tenderness (RLQ pain), tenderness at McBurney's Point, scar. Absent: distention, guarding, rebound, rigidity, Humphries's sign, Rovsing's sign, pulsatile mass, hernia - Extremities Exam Extremities exam: Present: normal inspection, full ROM. Absent: tenderness, pedal edema - Neurological Exam Neurological exam: Present: alert, oriented X3 - Skin Skin exam: Present: warm, dry, intact, normal color Course - Consultations Consultation #1: Spoke with Dr. Barahona who will see patient at bedside. Time: 17:55 Consultation #2: Spoke with Dr. Barahona who requested admit to medicine. They are currently consulted. Time: 18:11 Consultation #3: We spoke with Jose Rafael Small NP who stated that he will not accept this patient until he speaks with his attending as he was concerned about an appendix rupture. We explained that he should discuss the case with Dr. Barahona in Surgery in order to clarify. He agreed and stated he will return the call. Time: 18:44 Vital Signs Temperature 98.9 F 03/09/18 17:08 Pulse Rate 84 03/09/18 17:08 Respiratory Rate 16 03/09/18 17:08 Blood Pressure 141/98 03/09/18 17:08 O2 Sat by Pulse Oximetry 100 03/09/18 17:08 Temperature 98.9 F 03/09/18 17:08 Pulse Rate 75 03/09/18 19:09 Respiratory Rate 16 03/09/18 19:09 Blood Pressure 134/81 03/09/18 19:09 O2 Sat by Pulse Oximetry 100 03/09/18 19:09 Oxygen Delivery Oxygen Delivery Nasal Cannula Medical Decision Making - MDM Narrative Medical decision making narrative: 1918: Patient accepted by hospitalist, Jose Rafael Small. - Medical Records Medical records reviewed: Yes I reviewed the patient's medical records. - Lab Data Lab results reviewed: Yes I reviewed the patient's lab results. Result diagrams: 03/09/18 17:14 03/09/18 17:14 Lab Results 03/09/18 03/09/18 03/09/18 Range/Units 17:14 17:14 17:14 WBC 9.8 (4.3-11.1) K/mcL RBC 3.22 L (3.82-4.97) M/mcL Hgb 9.8 L (11.5-15.4) g/dL Hct 30.7 L (35.3-44.9) % MCV 95.3 (83.0-100.0) fL MCH 30.4 (28.0-33.3) pg MCHC 31.9 (31.6-35.5) g/dL RDW 16.8 H (11.5-14.5) % Plt Count 124 L (140-400) K/mcL MPV 10.5 (9.4-12.4) fL Immature Gran % 0.8 (0-4) % Seg Neutrophils % 81.4 % Lymphocytes % 11.1 % Monocytes % 5.6 % Eosinophils % 0.9 % Basophils % 0.2 % Neutrophils # 8.0 (1.6-8.9) K/mcL Lymphocytes # 1.1 (0.6-4.6) K/mcL Monocytes # 0.6 (0.0-1.3) K/mcL Eosinophils # 0.1 (0.0-0.6) K/mcL Basophils # 0.0 (0.0-0.2) K/mcL Nucleated RBCs/100 WBC 0.2 H (0) /100 WBC PT 13.8 H (9.4-12.1) Seconds INR 1.3 APTT 34.1 (26.0-36.0) Seconds Sodium 136 (136-145) mEq/L Potassium 4.9 (3.5-5.1) mEq/L Chloride 104 (98-107) mEq/L Carbon Dioxide 25 (23-29) mEq/L BUN 52 H (8-23) mg/dL Creatinine 2.57 H (0.60-1.20) mg/dL Est GFR ( Amer) 22 L (> 60) Est GFR (Non-Af Amer) 18 L (> 60) BUN/Creatinine Ratio 20 (6-26) Glucose 96 (70-105) mg/dL Calculated Osmolality 296 (280-300) Calcium 9.3 (8.6-10.3) mg/dL
--- NOTE | 2018-03-09 17:35 | Emergency Department Note ---
Disposition Clinical Impression: Abdominal pain Disposition: Still a Patient Condition: Fair Forms: ED Satisfaction Letter, Work/School Release Abdominal Pain HPI - General Chief Complaint: ED Abdominal Pain Stated Complaint: Abdominal pain Time Seen by Provider: 03/09/18 16:58 Source: patient, EMS Mode of arrival: EMS Nursing Notes Reviewed: Yes Vital Signs Reviewed: Yes - History of Present Illness Pain Scale: 6 - Related Data Home Medications Medication Instructions Recorded Confirmed Cyclosporine [Restasis] 1 drop BOTH EYES BID 04/30/15 02/11/18 Isosorbide MONOnitrate [Isosorbide 60 mg PO DAILY 04/30/15 02/11/18 Mononitrate ER] Potassium Chloride 20 meq PO DAILY 06/19/16 02/11/18 Calcitriol [Rocaltrol] 0.25 mcg PO DAILY 03/20/17 02/11/18 Azelastine HCl 1 drop OP BID 07/20/17 02/11/18 Fluticasone/Vilanterol [Breo 1 each IH DAILY 07/20/17 02/11/18 Ellipta 100-25 Mcg INH] Loratadine [Claritin] 10 mg PO DAILY 07/20/17 02/11/18 Nystatin POWDER [Nystop] 1 appl TP BID 07/20/17 02/11/18 Albuterol Sulfate [Albuterol 2 puff IH Q4HR PRN 08/27/17 02/11/18 Inhaler] Atorvastatin Calcium [Lipitor] 20 mg PO HS 10/06/17 02/11/18 Esomeprazole Magnesium [Nexium] 40 mg PO DAILY 10/06/17 02/11/18 Amiodarone [Cordarone] 200 mg PO DAILY 11/28/17 02/11/18 Acetaminophen [Tylenol] 650 mg PO Q4HR PRN 02/11/18 02/11/18 Atorvastatin Calcium [Lipitor] 20 mg PO DAILY 02/11/18 02/11/18 GuaiFENesin Liq [Robitussin Liq] 200 mg PO Q4HR PRN 02/11/18 02/11/18 Quetiapine Fumarate [Quetiapine 50 mg PO HS 02/11/18 02/11/18 Fumarate ER] metOLazone [Zaroxolyn] 2.5 mg PO DAILY 02/11/18 02/11/18 Previous Rx's Medication Instructions Recorded Aspirin Enteric Coated [Aspirin EC] 81 mg PO DAILY tablet. 11/02/17 Docusate [Colace] 100 mg PO BID PRN capsule 12/02/17 Fluticasone Propionate Nasal 50 mcg NS DAILY bottle 12/02/17 [Flonase] Furosemide [Lasix] 40 mg PO BIDDIURETIC tablet 12/02/17 Ipratropium/Albuterol Neb [Duoneb] 3 ml IH [id number] PRN 30 Days inhsol 12/02/17 Metoprolol [Lopressor] 50 mg PO BID tablet 12/02/17 Allergies Allergy/AdvReac Type Severity Reaction Status Date / Time ciprofloxacin [From Cipro] Allergy Hives Verified 02/11/18 14:06 meperidine [From Demerol] AdvReac Vomiting Verified 02/11/18 14:06 Constitutional: Reports: weakness. Denies: fever, chills ENT ED: Denies: congestion Cardiovascular: Denies: chest pain Respiratory: Denies: dyspnea Gastrointestinal: Reports: abdominal pain. 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 history: Reports: no APPRENTICE COSMETOLOGIST history Psychiatric history: Reports: anxiety, depression - Social History Smoking status: Never smoker Alcohol use: Reports: none Drug use: Reports: none Physical Exam - General Limitations: physical limitation General appearance: alert, in no apparent distress Course Vital Signs Temperature 98.9 F 03/09/18 17:08 Pulse Rate 84 03/09/18 17:08 Respiratory Rate 16 03/09/18 17:08 Blood Pressure 141/98 03/09/18 17:08 O2 Sat by Pulse Oximetry 100 03/09/18 17:08 Temperature 98.9 F 03/09/18 17:08 Pulse Rate 84 03/09/18 17:08 Respiratory Rate 16 03/09/18 17:08 Blood Pressure 141/98 03/09/18 17:08 O2 Sat by Pulse Oximetry 100 03/09/18 17:08 Oxygen Delivery Oxygen Delivery Nasal Cannula Attestation Statement - Attestation Attestation: I, Iftikhar Holder, examined this patient and my medical decision-making was reviewed with the SENIOR WINDOWS ENGINEER/PA/Advanced Practice Nurse/Resident Physician. I agree with the documented findings, disposition and treatment plan as described except to the extent set forth below. 72-year-old female presents emergency Department with concerns of right lower quadrant abdominal pain and possible appendicitis. She had a CT performed as outpatient for screening secondary to pancytopenia. CT showed evidence of likely appendicitis. Patient is tender to the right lower quadrant but states the pain does not radiate. Patient is unable to describe when the pain started. Patient denies fever, chills, nausea, vomiting, diarrhea. Patient will likely be admitted to the hospital for further evaluation by surgery. Laboratory evaluation and Disposition pending at this time.
[2018-03-09 17:44] LABS: Basophils % 0.2 %; Eosinophils # 0.1 K/mcL (0.0-0.6); Eosinophils % 0.9 %; Hematocrit 30.7 % (35.3-44.9); Hemoglobin 9.8 g/dL (11.5-15.4); Immature Granulocytes % 0.8 % (0-4); Lymphocytes # 1.1 K/mcL (0.6-4.6); Lymphocytes % 11.1 %; Mean Corpuscular HGB Conc 31.9 g/dL (31.6-35.5); Mean Corpuscular Hemoglobin 30.4 pg (28.0-33.3); Mean Corpuscular Volume 95.3 fL (83.0-100.0); Mean Platelet Volume 10.5 fL (9.4-12.4); Monocytes # 0.6 K/mcL (0.0-1.3); Monocytes % 5.6 %; Nucleated Red Blood Cells 0.2 /100 WBC (0); Platelet Count 124 K/mcL (140-400); Red Blood Count 3.22 M/mcL (3.82-4.97); Red Cell Distribution Width 16.8 % (11.5-14.5); Segmented Neutrophils % 81.4 %
[2018-03-09 18:00] LABS: Calcium 9.3 mg/dL (8.6-10.3); Potassium 4.9 mEq/L (3.5-5.1)
[2018-03-09 18:06] LABS: INR 1.3; Prothrombin Time 13.8 Seconds (9.4-12.1)
[2018-03-09 18:08] LABS: Activated Partial Thrombo Time 34.1 Seconds (26.0-36.0)
--- NOTE | 2018-03-09 18:23 | General Surgery Consult Note ---
Date of Encounter: 03/09/18 Time of Encounter: 18:21 Assessment and Plan (1) Atrial fibrillation Current Visit: Yes Status: Chronic medical management per hospitalist Qualifiers: Atrial fibrillation type: chronic Qualified Code(s): I48.2 - Chronic atrial fibrillation (2) H/O prosthetic heart valve Current Visit: Yes Status: Chronic (3) Pulmonary hypertension Current Visit: Yes Status: Chronic will consult cardiology for cardiac clearance (4) Right lower quadrant pain Current Visit: Yes Status: Acute discussed with patient that she states she has RLQ pain that she has had for years and hasnt changed but during deep palpation of RLQ she states "oh thats a new pain". CT scan personally reviewed by myself and was done for pancystopenia will admit to hosptilist with general surgery on consult serial abdominal exams antibiotics cardiology consult for clearance for possible OR will re-evaluate in am (5) Abnormal CT of the abdomen Current Visit: Yes Status: Acute reviewed History of Present Illness Consult date: 03/09/18 Reason for consult: abdominal pain Requesting physician: Jose Rafael Head History of present illness: Patient isa72 yo female who was recently seen by oncology for pancytopenia. A ct scan of the abdomen and pelvis was ordered as an outpatient. CT was done showing " Prominent appendix identified in the right lower quadrant with focus of high density within the lumen that could represent a small appendicular with or focus of hemorrhage. Regional inflammation is identified, with free fluid tracking into the cul-de-sac. Unremarkable appendix." Patient states she has had RLQ pain for years and that she doesnt feel the pain has changed at all. She denies nausea or emesis. She has no diarrhea. Patient was admitted for pneumonia in November and went to rehab and has been there since. She fell recently in rehab and hit her right shoulder neck area which is why there is bruising. She used to be on anticoagulation for her atrial fibrillation but is no longer on it. She has pulmonary hypertension and has a history of a Ross procedure, right pleurodesis. Past Med Surg Social Fam HX - Past Medical History Source: patient Medical history: arthritis, asthma, atrial fibrillation, cardiomyopathy, CHF, COPD, GERD, hyperlipidemia, hypertension, osteoporosis, renal disease (CKD4), venous stasis, valvular heart disease, other Additional medical history: blind Psychiatric history: anxiety, depression - Past Surgical History Surgical History: cataract, cholecystectomy (open), heart valve replacement, herniorrhaphy, hysterectomy, knee replacement, orthopedic, other, sinus surgery , other Additional surgical history: lung surgery - right pleurodesis secondary to pleural effusions after cardiac surgery. "Ross" heart procedure- 1994 [facility] - Social History Smoking Status: Never smoker Smokeless Tobacco Status: No Alcohol use: none Drug use: none - Family History Father Family Member Ethnicity: Non- Living Status: Hx Family Cardiac Disorders: Yes (HD, Pig valve, HD) Hx Family Cancer: Yes (Cancer on lip) Hx Family GI Disorders: Yes (CKD) Hx Family Endocrine Disorder: Yes (Gallstones) Sister Family Member Ethnicity: Non- Living Status: Hx Family Endocrine Disorder: Yes (DM) Mother Living Status: Hx Family Cardiac Disorders: Yes (HD, Anemia) Medications and Allergies Cyclosporine [Restasis] 1 drop BOTH EYES BID 04/30/15 [History] Isosorbide MONOnitrate [Isosorbide Mononitrate ER] 60 mg PO DAILY 04/30/15 [ History] Potassium Chloride 20 meq PO DAILY 06/19/16 [History] Calcitriol [Rocaltrol] 0.25 mcg PO DAILY 03/20/17 [History] Fluticasone/Vilanterol [Breo Ellipta 100-25 Mcg INH] 1 each IH DAILY 07/20/17 [ History] Loratadine [Claritin] 10 mg PO DAILY 07/20/17 [History] Nystatin POWDER [Nystop] 1 appl TP BID 07/20/17 [History] Albuterol Sulfate [Albuterol Inhaler] 2 puff IH Q4HR PRN 08/27/17 [History] Atorvastatin Calcium [Lipitor] 20 mg PO HS 10/06/17 [History] Esomeprazole Magnesium [Nexium] 40 mg PO DAILY 10/06/17 [History] Aspirin Enteric Coated [Aspirin EC] 81 mg PO DAILY tablet. 11/02/17 [Rx] Amiodarone [Cordarone] 200 mg PO DAILY 11/28/17 [History] Docusate [Colace] 100 mg PO BID PRN capsule 12/02/17 [Rx] Fluticasone Propionate Nasal [Flonase] 50 mcg NS DAILY bottle 12/02/17 [Rx] Ipratropium/Albuterol Neb [Duoneb] 3 ml IH [id number] PRN 30 Days inhsol 12/02/17 [Rx] Metoprolol [Lopressor] 50 mg PO BID tablet 12/02/17 [Rx] Acetaminophen [Tylenol] 650 mg PO Q4HR PRN 02/11/18 [History] GuaiFENesin Liq [Robitussin Liq] 200 mg PO Q4HR PRN 02/11/18 [History] Furosemide [Lasix] 40 mg PO DAILY 03/09/18 [History] Quetiapine Fumarate [Seroquel] 50 mg PO HS 03/09/18 [History] 3 Allergy/AdvReac Type Severity Reaction Status Date / Time ciprofloxacin [From Cipro] Allergy Hives Verified 02/11/18 14:06 meperidine [From Demerol] AdvReac Vomiting Verified 02/11/18 14:06 Review of Systems All systems PM: reviewed and no additional remarkable complaints except as stated All systems PM: The remainder of the systems were reviewed and are negative General Surgery Exam Initial Vital Signs Temp Pulse Resp BP Pulse Ox 98.9 F 84 16 141/98 100 03/09/18 17:08 03/09/18 17:08 03/09/18 17:08 03/09/18 17:08 03/09/18 17:08 - General physical appearance well developed, no distress, obese - Eyes normal ocular movement - ENT normal mucosa, normocephalic - Neck other (right neck ecchymosis) - Respiratory normal expansion, clear to auscultation - Cardiovascular Cardiovascular exam: Present: irregular rhythm - Abdomen Abdomen general surgery: Present: bowel sounds present, soft, tender. Absent: guarding, rebound Abdominal Tenderness: Present: RLQ (mild pain with deep palpation) - Neurologic Present: CN 2-12 grossly intact - Musculoskeletal Present: normal posture - Psychiatric Psychiatric general surgery: Present: A&Ox3, speech is normal Exam Initial Vital Signs Temp Pulse Resp BP Pulse Ox 98.9 F 84 16 141/98 100 03/09/18 17:08 03/09/18 17:08 03/09/18 17:08 03/09/18 17:08 03/09/18 17:08 Results - Labs 03/09/18 17:14 03/09/18 17:14 Abnormal lab results RBC 3.22 M/mcL (3.82-4.97) L 03/09/18 17:14 Hgb 9.8 g/dL (11.5-15.4) L 03/09/18 17:14 Hct 30.7 % (35.3-44.9) L 03/09/18 17:14 RDW 16.8 % (11.5-14.5) H 03/09/18 17:14 Plt Count 124 K/mcL (140-400) L 03/09/18 17:14 Nucleated RBCs/100 WBC 0.2 /100 WBC (0) H 03/09/18 17:14 PT 13.8 Seconds (9.4-12.1) H 03/09/18 17:14 BUN 52 mg/dL (8-23) H 03/09/18 17:14 Creatinine 2.57 mg/dL (0.60-1.20) H 03/09/18 17:14 Est GFR ( Amer) 22 (> 60) L 03/09/18 17:14 Est GFR (Non-Af Amer) 18 (> 60) L 03/09/18 17:14 Diabetes panel 03/09/18 Range/Units 17:14 Sodium 136 (136-145) mEq/L Potassium 4.9 (3.5-5.1) mEq/L Chloride 104 (98-107) mEq/L Carbon Dioxide 25 (23-29) mEq/L BUN 52 H (8-23) mg/dL Creatinine 2.57 H (0.60-1.20) mg/dL Glucose 96 (70-105) mg/dL Calcium 9.3 (8.6-10.3) mg/dL Calcium panel 03/09/18 Range/Units 17:14 Calcium 9.3 (8.6-10.3) mg/dL Pituitary panel 03/09/18 Range/Units 17:14 Sodium 136 (136-145) mEq/L Potassium 4.9 (3.5-5.1) mEq/L Chloride 104 (98-107) mEq/L Carbon Dioxide 25 (23-29) mEq/L BUN 52 H (8-23) mg/dL Creatinine 2.57 H (0.60-1.20) mg/dL Glucose 96 (70-105) mg/dL Calcium 9.3 (8.6-10.3) mg/dL Adrenal panel 03/09/18 Range/Units 17:14 Sodium 136 (136-145) mEq/L Potassium 4.9 (3.5-5.1) mEq/L Chloride 104 (98-107) mEq/L Carbon Dioxide 25 (23-29) mEq/L BUN 52 H (8-23) mg/dL Creatinine 2.57 H (0.60-1.20) mg/dL Glucose 96 (70-105) mg/dL Calcium 9.3 (8.6-10.3) mg/dL All other labs normal. - Imaging CT scan - abdomen: report reviewed, image reviewed CT scan - pelvis: report reviewed, image reviewed Consult Discharge Plan - Plan Referrals: Lokesh Cooper MD [Primary Care Provider] -
[2018-03-09] MEDS ORDERED: Acetaminophen 325 MG TABLET PO PRN (20:58)
[2018-03-09] MEDS ORDERED: Naloxone 0.4 MG/ML INJ IVP PRN (20:58)
--- NOTE | 2018-03-09 21:16 | Internal Med History&Physical ---
Date of Encounter: 03/09/18 Time of Encounter: 20:00 Internal Medicine - H&P: HPI Chief complaint: Acute Appendicitis Admitted From: Home Plans for Post Hospital Care: Home History of present illness: Ms. Barber is a 72 year old female Patient was being seen in outpatient by an oncologist and was having imaging done of her abdomen. CT results showed a prominent appendix with right lower quadrant with high density focus within the lumen as well as a focus of hemorrhage and regional inflammation and free fluid tracking to the cul-de-sac. [facility], and told to go the emergency room. She denies nausea and vomiting fever and chills. She has had some constipation lately but no diarrhea. She states that she has had right lower quadrant pain for many years, earlier when the general surgeon did his exam and palpated her right lower quadrant she noted an increased pain in that area that she was not familiar with. Patient has a past medical history of atrial fibrillation, chronic kidney disease stage IV, retinitis pigmentosa and macular degeneration. She also has congestive heart failure and history of pancytopenia for which the oncologist is investigating. General surgeon decided to have patient be evaluated by cardiology prior to any decision regarding appendectomy. She will be admitted and treated with antibiotics in the meantime. Patient is also been having some burning with urination over the last few days. Past Med Surg Social Fam HX - Past Medical History Medical history: arthritis, asthma, cardiomyopathy, CHF, COPD, GERD, hyperlipidemia, hypertension, osteoporosis, renal disease, venous stasis, valvular heart disease, other Additional medical history: blind Psychiatric history: anxiety, depression - Past Surgical History Surgical History: cataract, cholecystectomy, heart valve replacement, herniorrhaphy, hysterectomy, knee replacement, orthopedic, other, sinus surgery , other Additional surgical history: lung surgery - right pleurodesis secondary to pleural effusions after cardiac surgery. "Ross" heart procedure- 1994 [facility] - Social History Smoking Status: Never smoker Smokeless Tobacco Status: No Alcohol use: none Drug use: none - Family History Father Family Member Ethnicity: Non- Living Status: Hx Family Cardiac Disorders: Yes (HD, Pig valve, HD) Hx Family Cancer: Yes (Cancer on lip) Hx Family GI Disorders: Yes (CKD) Hx Family Endocrine Disorder: Yes (Gallstones) Sister Family Member Ethnicity: Non- Living Status: Hx Family Endocrine Disorder: Yes (DM) Mother Living Status: Hx Family Cardiac Disorders: Yes (HD, Anemia) Internal Medicine - H&P: Meds Cyclosporine [Restasis] 1 drop BOTH EYES BID 04/30/15 [History] Isosorbide MONOnitrate [Isosorbide Mononitrate ER] 60 mg PO DAILY 04/30/15 [ History] Potassium Chloride 20 meq PO DAILY 06/19/16 [History] Calcitriol [Rocaltrol] 0.25 mcg PO DAILY 03/20/17 [History] Fluticasone/Vilanterol [Breo Ellipta 100-25 Mcg INH] 1 each IH DAILY 07/20/17 [ History] Loratadine [Claritin] 10 mg PO DAILY 07/20/17 [History] Nystatin POWDER [Nystop] 1 appl TP BID 07/20/17 [History] Albuterol Sulfate [Albuterol Inhaler] 2 puff IH Q4HR PRN 08/27/17 [History] Atorvastatin Calcium [Lipitor] 20 mg PO HS 10/06/17 [History] Esomeprazole Magnesium [Nexium] 40 mg PO DAILY 10/06/17 [History] Aspirin Enteric Coated [Aspirin EC] 81 mg PO DAILY tablet. 11/02/17 [Rx] Amiodarone [Cordarone] 200 mg PO DAILY 11/28/17 [History] Docusate [Colace] 100 mg PO BID PRN capsule 12/02/17 [Rx] Fluticasone Propionate Nasal [Flonase] 50 mcg NS DAILY bottle 12/02/17 [Rx] Ipratropium/Albuterol Neb [Duoneb] 3 ml IH [id number] PRN 30 Days inhsol 12/02/17 [Rx] Metoprolol [Lopressor] 50 mg PO BID tablet 12/02/17 [Rx] Acetaminophen [Tylenol] 650 mg PO Q4HR PRN 02/11/18 [History] GuaiFENesin Liq [Robitussin Liq] 200 mg PO Q4HR PRN 02/11/18 [History] Furosemide [Lasix] 40 mg PO DAILY 03/09/18 [History] Quetiapine Fumarate [Seroquel] 50 mg PO HS 03/09/18 [History] 3 Allergy/AdvReac Type Severity Reaction Status Date / Time ciprofloxacin [From Cipro] Allergy Hives Verified 02/11/18 14:06 meperidine [From Demerol] AdvReac Vomiting Verified 02/11/18 14:06 All Systems PM: A 10-system review of systems was performed and is negative for pertinent findings except as documented above in the HPI. - Constitutional Vitals: Temp Pulse Resp BP Pulse Ox 98.9 F 75 18 132/79 100 03/09/18 17:08 03/09/18 19:09 03/09/18 20:19 03/09/18 20:19 03/09/18 19:09 General appearance: Present: A&O X 3, pleasant, no acute distress, answers questions appropriately - Head Head exam: Present: normal inspection - Eye Eye exam: Present: normal appearance Additional comments: Blindness bilaterally, can identify objects but not with acuity. - Respiratory Respiratory exam: Present: CTAB. Absent: rales, rhonchi, wheezes - Cardiovascular Cardiovascular exam: Present: irregular rhythm. Absent: diastolic murmur, systolic murmur - GI/Abdominal GI/Abdominal exam: Present: normal bowel sounds, soft, tenderness. Absent: distended, firm, guarding, rebound Additional comments: Tenderness in the right lower quadrant with palpation. No rebound tenderness - Extremities Exam Extremities exam: Present: pedal edema, warm, radial pulses palpable and symmetrical. Absent: calf tenderness, tenderness - Neurological Exam Neurological exam: Present: oriented X3, no focal deficits. Absent: speech deficit - Skin Skin exam: Present: dry, warm. Absent: rash Internal Med - H&P Results - Labs CBC & Chem 7: 03/09/18 17:14 03/09/18 17:14 - Assessment and plan (1) Right lower quadrant pain Current Visit: No Status: Acute Assessment and plan: Patient's CT results indicate possible acute appendicitis, however patient also states that she has a history of multiple abdominal surgeries including hernia repair, hysterectomy, and exploratory surgeries for endometriosis. Scar tissue and adhesions could also be contributing to her pain. The CT also showed regional inflammation and a focus of hemorrhage in the right lower quadrant with free fluid tracking to the cul-de-sac. General surgery evaluated the patient and will continue to monitor and consult. Cardiology has also been consulted and will see the patient tomorrow, as patient is a complicated candidate for surgery due to her multiple cardiac comorbidities. Continue Unasyn 3.375 g every 6 hours NPO after midnight Follow-up Gen. surgery and cardiology recommendations. (2) Abnormal CT of the abdomen Current Visit: No Status: Acute Assessment and plan: As above. CT showed prominent appendix in RLQ with high density focus within lumen. There was a focus of hemorrhage and regional inflammation seen as well with free fluid tracking to the cul-de-sac. (3) Dysuria Current Visit: No Status: Acute Assessment and plan: Patient expressed during my exam that she had some burning with urination. Order urinalysis follow-up results (4) Chronic kidney disease, stage IV (severe) Current Visit: No Status: Acute Assessment and plan: A review of patient's labs and her GFR shows that her glomerular filtration rate ranges between 15 to below 30 over the last several months. This places her in Chronic Kidney Disease stage IV category. Continue to monitor. (5) Atrial fibrillation Current Visit: No Status: Acute Assessment and plan: Noted on exam, chronic history of atrial fibrillation. Patient is on amiodarone 200 mg daily. Continue current management. Cardiology consult tomorrow. Follow-up recommendations. Qualifiers: Atrial fibrillation type: persistent Qualified Code(s): I48.1 - Persistent atrial fibrillation (6) Congestive heart failure Current Visit: No Status: Chronic Assessment and plan: Patient has chronic history of congestive heart failure, she is currently on metoprolol 50 mg twice a day. Based on her list available at time of admission I am unsure if her treatment has been optimized. Follow-up cardiology recommendations. Continue current regimen. Qualifiers: Heart failure type: unspecified Heart failure chronicity: chronic Qualified Code(s): I50.9 - Heart failure, unspecified (7) Legally blind Current Visit: No Status: Chronic Assessment and plan: Patient has history of retinitis pigmentosa and macular degeneration. (8) HTN (hypertension) Current Visit: No Status: Chronic Assessment and plan: Chronic continue home meds. Qualifiers: Hypertension type: essential hypertension Qualified Code(s): I10 - Essential (primary) hypertension (9) GERD (gastroesophageal reflux disease) Current Visit: No Status: Chronic Assessment and plan: Chronic patient takes esomeprazole Continue current management. Qualifiers: Esophagitis presence: without esophagitis Qualified Code(s): K21.9 - Gastro -esophageal reflux disease without esophagitis (10) DVT prophylaxis Current Visit: No Status: Acute Assessment and plan: Calf compression devices. Because patient may be going to surgery, we will hold chemical prophylaxis. Patient's platelets are also borderline low and 124. - Time Spent With Patient Total time spent is greater than 50% in coordination of care (as documented) at patient's floor/unit and/or counseling patient:
[2018-03-09] MEDS ORDERED: Ipratropium/Albuterol Neb 3 ML IH PRN (22:16)
[2018-03-09] MEDS ORDERED: GuaiFENesin Liq 200 MG/10 ML UDC PO PRN (22:16)
[2018-03-10] MEDS: Piperacillin/Tazobactam 3.375 GM in 0.9 % Sodium Chloride Mini Bag 100 ML IVPB SCH ×2 (05:40→18:02)
[2018-03-10 07:10] LABS: Hemoglobin 9.3 g/dL (11.5-15.4); Mean Corpuscular HGB Conc 32.1 g/dL (31.6-35.5); Mean Corpuscular Hemoglobin 30.5 pg (28.0-33.3); Mean Corpuscular Volume 95.1 fL (83.0-100.0); Mean Platelet Volume 10.2 fL (9.4-12.4); Platelet Count 101 K/mcL (140-400); Red Blood Count 3.05 M/mcL (3.82-4.97); Red Cell Distribution Width 16.7 % (11.5-14.5)
[2018-03-10 07:31] LABS: Calcium 8.8 mg/dL (8.6-10.3); Potassium 4.1 mEq/L (3.5-5.1)
[2018-03-10] MEDS ORDERED: Fluticasone Propionate Nasal 50 MCG/SPRAY BOTTLE NS SCH (09:00)
[2018-03-10] MEDS ORDERED: Aspirin Enteric Coated 81 MG Tablet PO SCH (09:00)
[2018-03-10] MEDS ORDERED: Isosorbide MONOnitrate (24 HR) 60 MG TAB.ER.24H PO SCH (09:00)
[2018-03-10] MEDS ORDERED: (Fluticasone/Vilanterol [Breo Ellipta 100-25 Mcg Inh]) IH SCH (09:00)
[2018-03-10] MEDS ORDERED: *HR* Amiodarone 200 MG TABLET PO SCH (09:00)
[2018-03-10] MEDS ORDERED: Loratadine 10 MG TABLET PO SCH (09:00)
[2018-03-10] MEDS: Furosemide 40 MG TABLET PO SCH ×2 (09:27→09:42)
[2018-03-10] MEDS: (Cyclosporine [Restasis] 1 DROP) OP SCH (09:30)
--- NOTE | 2018-03-10 09:55 | Cardiology Consult Note ---
Addendum entered and electronically signed by Andrew Rivera CNP 03/10/18 14:28 : Discussed with Kasandra Breaux CNP, surgery [employer]ITION GUIDE. Stress test was not completed today due to patient receiving medications. Stress test ordered for risk stratification as requested by Dr. Jimenez. If surgery is deemed urgent patient should proceed with surgery without further cardiac testing per guidelines. If it is not urgent we will proceed with stress test tomorrow. Please call with questions. Addendum entered and electronically signed by Andrew Rivera CNP 03/10/18 10:57 : Patient received imdur this morning. She will not be able to have stress test until tomorrow. Original Note: <Andrew Rivera - Last Filed: 03/10/18 09:43> Date of Encounter: 03/10/18 Time of Encounter: 09:44 Assessment and Plan (1) Pre-operative cardiovascular examination Current Visit: Yes Status: Acute Patient may need appendectomy for appendicitis. If surgery is urgent patient should proceed with surgery as per guidelines. If surgery is not urgent recommend optimizing from cardiac standpoint if needed based on testing. Check EKG- history of atrial fibrillation and c/o intermittent chest pain. Recommend telemetry monitoring-ordered. Prior cardiac testing reviewed. Stress test completed at OSH 05/2017 was negative for ischemia. TTE completed 09/2017- preserved EF, moderate peravalvular regurgitation, bioprosthetic valve was not well visualized. Mild PAH. [facility] 2008- luminal irregularities. No CAD seen. Reports atypical chest pain and dyspnea on exertion over the past month. EKG reviewed, shows rate controlled atrial fibrillation and no acute T/ST changes. Check BNP. CT showed small chronic left pleural effusion. No acute CHF on CT. BLE appears to be chronic. Continue lasix. Discussed with Dr. Mcgrath, if surgery is not urgent we will proceed with stress test and echocardiogram for further risk startification. If stress test is abnormal she would be high risk. Do not expect that she would be a good candidate for LHC with known pancytopenia and advanced CKD. (2) H/O bicuspid aortic valve Current Visit: No Status: Chronic S/p Ross procedure in 1994. Moderate peravalvular regurgitation seen on last TTE. WIll repeat for risk assessment. (3) Congestive heart failure Current Visit: No Status: Chronic H/o chronic CHFpEF. Last TTE 09/2017 showed EF 65%. Also whith CKD. Chronic BLE edema. Reports some increase in BLE and dyspnea on exertion. CT of abdomen and pelvis showed small LLL pleural effusion. No acute findings noted. Check BNP. Continue oral lasix. Qualifiers: Heart failure type: diastolic Heart failure chronicity: chronic Qualified Code(s): I50.32 - Chronic diastolic (congestive) heart failure (4) Paroxysmal A-fib Current Visit: No Status: Acute EKG shows rate controlled afib. Recommend telemetry tyron-procedure. Continue amiodarone and bb periopertively. She is not on AC due to history of falls and low PLT earlier this year. Continue asa. Discussion w patient/family: The assessment and plan as outlined above was discussed with the patient and/or family members who expressed understanding and agreement. All questions were answered. Thank you for involving us in the care of your patient. Please call with any questions. History of Present Illness Consult date: 03/10/18 Requesting physician: Crystal Jimenez Consult reason: Pre-operative cardiovascular risk assessment. Chief complaint: Sent to ED for abnormal abdomen CT. History of present illness: Ms. Barber is a 72 year old female with past medical history of atrial fibrillation/atrial flutter, chronic diastolic CHF, aortic bicuspid valve s/p Ross procedure in 1994, HTN, COPD, CKD and she is legally blind. She was sent to the ED after having a abdominal CT showing acute appendicitis. Abdominal CT was ordered by hematology for pancytopenia. She admits to abdominal pain. C/o intermittent substernal chest pain over the past month that occurs at rest. Her pain occasionally radiates to her abdomen in the LUQ. C/o dyspnea on exertion and increased BLE edema. C/o orthopnea. Symptoms have been on going since her last hospital stay in November of this year. Prior cardiac testing: Nuclear Stress test 05/2017 at [facility] found to be negative for ischemia. EF 70%. TTE 10/07/17-EF 65%, Atypical septal motion consistent with post-operative status. Indeterminate diastolic function. RV is dilated with normal function. Moderate paravalvular prosthetic aortic regurgitation. Bioprosthetic aortic valve is not well visualized. No evidence of stenosis. Mild MR. Moderate TR Mild MT. Mild PAH. [facility] 2008- PAH related to LV diastolic dysfunction. Luminal irregularities. Past Med Surg Social Fam HX - Past Medical History Medical history: arthritis, asthma, CHF, COPD, GERD, hyperlipidemia, hypertension, osteoporosis, renal disease, venous stasis, valvular heart disease , other Additional medical history: blind Psychiatric history: anxiety, depression - Past Surgical History Surgical History: cataract, cholecystectomy, heart valve replacement, herniorrhaphy, hysterectomy, knee replacement, orthopedic, other, sinus surgery , other Additional surgical history: lung surgery - right pleurodesis secondary to pleural effusions after cardiac surgery. "Ross" heart procedure- 1994 [facility] - Social History Smoking Status: Never smoker Smokeless Tobacco Status: No Alcohol use: none Drug use: none - Family History Father Family Member Ethnicity: Non- Living Status: Hx Family Cardiac Disorders: Yes (HD, Pig valve, HD) Hx Family Cancer: Yes (Cancer on lip) Hx Family GI Disorders: Yes (CKD) Hx Family Endocrine Disorder: Yes (Gallstones) Sister Family Member Ethnicity: Non- Living Status: Hx Family Endocrine Disorder: Yes (DM) Mother Living Status: Hx Family Cardiac Disorders: Yes (HD, Anemia) Medications and Allergies Cyclosporine [Restasis] 1 drop BOTH EYES BID 04/30/15 [History] Isosorbide MONOnitrate [Isosorbide Mononitrate ER] 60 mg PO DAILY 04/30/15 [ History] Potassium Chloride 20 meq PO DAILY 06/19/16 [History] Calcitriol [Rocaltrol] 0.25 mcg PO DAILY 03/20/17 [History] Fluticasone/Vilanterol [Breo Ellipta 100-25 Mcg INH] 1 each IH DAILY 07/20/17 [ History] Loratadine [Claritin] 10 mg PO DAILY 07/20/17 [History] Nystatin POWDER [Nystop] 1 appl TP BID 07/20/17 [History] Albuterol Sulfate [Albuterol Inhaler] 2 puff IH Q4HR PRN 08/27/17 [History] Atorvastatin Calcium [Lipitor] 20 mg PO HS 10/06/17 [History] Esomeprazole Magnesium [Nexium] 40 mg PO DAILY 10/06/17 [History] Aspirin Enteric Coated [Aspirin EC] 81 mg PO DAILY tablet. 11/02/17 [Rx] Amiodarone [Cordarone] 200 mg PO DAILY 11/28/17 [History] Docusate [Colace] 100 mg PO BID PRN capsule 12/02/17 [Rx] Fluticasone Propionate Nasal [Flonase] 50 mcg NS DAILY bottle 12/02/17 [Rx] Ipratropium/Albuterol Neb [Duoneb] 3 ml IH [id number] PRN 30 Days inhsol 12/02/17 [Rx] Metoprolol [Lopressor] 50 mg PO BID tablet 12/02/17 [Rx] Acetaminophen [Tylenol] 650 mg PO Q4HR PRN 02/11/18 [History] GuaiFENesin Liq [Robitussin Liq] 200 mg PO Q4HR PRN 02/11/18 [History] Furosemide [Lasix] 40 mg PO DAILY 03/09/18 [History] Quetiapine Fumarate [Seroquel] 50 mg PO HS 03/09/18 [History] 3 Allergy/AdvReac Type Severity Reaction Status Date / Time ciprofloxacin [From Cipro] Allergy Hives Verified 02/11/18 14:06 meperidine [From Demerol] AdvReac Vomiting Verified 02/11/18 14:06 All Systems Review: The remainder of the systems were reviewed and are negative Physical Examination Vital Signs Temp Pulse Resp BP Pulse Ox 03/10/18 09:45 69 109/70 03/10/18 05:36 97.9 F 71 16 97/69 97 03/10/18 00:11 97.8 F 72 16 98/62 98 03/09/18 21:22 97.3 F L 74 15 93/55 98 03/09/18 20:19 18 132/79 03/09/18 19:09 75 16 134/81 100 03/09/18 17:08 98.9 F 84 16 141/98 100 Intake and Output 03/09/18 03/10/18 03/10/18 23:59 07:59 15:59 Intake Total 0 / 0 0 / 0 100 / 100 Output Total 0 / 0 200 / 200 Balance 0 / 0 -200 / -200 100 / 100 Intake: IV Fluids 100 / 100 Zosyn 3.375 GM In 0.9 % Sodium 100 / 100 Chloride (Mini-Bag +) 100 ML @ 25 mls/hr IVPB Q12HR [facility] Rx#: [id number] Oral 0 / 0 0 / 0 Output: Urine 0 / 0 200 / 200 Other: Meal NPO BREAKFAST Stool Characteristics Normal for Patient Weight 93.7 kg 93.7 kg Blood Glucose* 126 Patient Weight 03/10/18 23:59 Weight 93.7 kg General: Conversant, No Apparent Distress HEENT: Atraumatic, Normocephaly, Mucus Membranes Moist Neck: No JVD, Normal carotid pulses Cardiac: No Murmur, Other (Apical irregular) Lungs: Normal Breath Sounds, No Wheeze, Rales, Rhonchi Neuro: Alert and responsive, No focal deficits noted Abdomen: Soft, Other (Tender to palpation over midepigastric and LUQ) Skin: No rashes noted on visualized skin Musculoskeletal: Other (Midsternal chest wall tender to palpation.) Extremities: Other (1-2 + edema in BLE. ) Results 03/10/18 06:30 03/10/18 06:30 Lab Results 03/10/18 03/10/18 06:30 06:30 WBC 6.1 Hgb 9.3 L Hct 29.0 L Plt Count 101 L Sodium 140 Potassium 4.1 Chloride 107 Carbon Dioxide 26 BUN 52 H Creatinine 2.25 H Glucose 93 Calcium 8.8 - Imaging and Cardiology Stress Test: report reviewed Echo: report reviewed Cardiac cath: report reviewed - EKG Interpretation EKG results cardiology: other (EKG ordered) Consult Discharge Plan - Plan Referrals: Lokesh Cooper MD [Primary Care Provider] - <[email or web address] - Last Filed: 03/10/18 16:41> Date of Encounter: 03/10/18 - Attending Attestation I examined this patient and my medical decision-making was reviewed with the RECRUITING CONSULTANT. I agree with the documented findings, disposition and treatment plan. Ms. Barber presents to the hospital after an incidental finding discovered on CT ordered by Hematology for pancytopenia. This demonstrated findings concerning for acute appendicitis. We were asked by the Surgical Team to evaluate the patient's cardiac risk for possible surgery. At the bedside, she admits to mild abdominal discomfort but she is in no acute distress. She is hemodynamically stable. She endorses recent chest pain intermittently occurring over the past month. Prior stress testing in May demonstrated no evidence for ischemia. LVEF previously normal. ECG without acute ischemic findings on presentation. Given patient's recent complaints of chest pain and poor/unknown functional capacity with risk factors for CAD, we have recommended risk assessment with stress testing. If patient's surgery is emergent, recommend proceeding with surgery without further testing as recommended by the ACC/AHA guidelines. If surgery is not emergent, will proceed with stress testing for risk assessment. Assessment and Plan Discussion w patient/family: The assessment and plan as outlined above was discussed with the patient and/or family members who expressed understanding and agreement. All questions were answered. Thank you for involving us in the care of your patient. Please call with any questions. History of Present Illness History of present illness: Ms. Barber is a 72 year old female All Systems Review: The remainder of the systems were reviewed and are negative Physical Examination Vital Signs, Last 4 Hours Temp Pulse Resp BP Pulse Ox 03/10/18 14:23 97.6 F 75 16 114/74 99 Results 03/10/18 06:30 03/10/18 06:30 Lab Results 03/10/18 03/10/18 03/10/18 06:30 06:30 06:30 WBC 6.1 Hgb 9.3 L Hct 29.0 L Plt Count 101 L Sodium 140 Potassium 4.1 Chloride 107 Carbon Dioxide 26 BUN 52 H Creatinine 2.25 H Glucose 93 Calcium 8.8 B-Natriuretic Peptide 597 H
--- NOTE | 2018-03-10 11:37 | Internal Med Progress Note ---
Date of Encounter: 03/10/18 Time of Encounter: 11:33 - Assessment and plan (1) Acute appendicitis Current Visit: Yes Status: Acute Assessment and plan: Patient presented with right lower quadrant abdominal pain as well as nausea and vomiting CT imaging of the abdomen showed prominent appendix in the right lower quadrant with high density focus within the lumen as well as a focus of hemorrhage and regional inflammation and free fluid tracking to the cul-de-sac. Concern for appendicitis per imaging as previously mentioned Surgery seeing in consultation, appreciate recommendations. Patient to have surgery this afternoon. Cardiology seeing in consultation for cardiac clearance, appreciate recommendations patient will need stress test in the morning for risk stratification; as noted per cardiology if surgery is urgent consider foregoing cardiac stress per guidelines nothing by mouth after midnight hold Imdur in the morning Continue serial abdominal exams Continue antibiotics DVT and antibiotic prophylaxis per surgical team Qualifiers: Acute appendicitis type: unspecified acute appendicitis type Qualified Code (s): K35.80 - Unspecified acute appendicitis (2) Right lower quadrant pain Current Visit: No Status: Acute Assessment and plan: Please see above (3) Abnormal CT of the abdomen Current Visit: No Status: Acute Assessment and plan: Findings concerning for acute appendicitis Also, new findings of 10 mm lateral basal left lower lobe pulmonary nodules slightly increased in city left-sided pleural effusion with calcifications. Consider follow-up CT scan 3 months (4) Dysuria Current Visit: Yes Status: Acute Assessment and plan: Patient having intermittent dysuria Urinalysis does not appear to show UTI (5) Atrial fibrillation Current Visit: No Status: Acute Assessment and plan: History of A. fib, irregular rhythm noted per auscultation A. fib chronically, currently rate controlled Taking amiodarone, continue this medication Cardiology seeing in consultation. Appreciate recommendations-follow up recommendations Qualifiers: Atrial fibrillation type: persistent Qualified Code(s): I48.1 - Persistent atrial fibrillation (6) Chronic kidney disease, stage IV (severe) Current Visit: No Status: Acute Assessment and plan: History of chronic renal disease Serum creatinine, BUN and GFR at baseline Continue to monitor, avoid nephrotoxins (7) Congestive heart failure Current Visit: No Status: Chronic Assessment and plan: History of CHF, not in acute exacerbation Lasix 40 mg by mouth daily TTE 03/10/18- LVEF 60-65%. Normal LV chamber size, wall thickness and function. Indeterminate diastolic function. Right ventricle was not well visualized. Grossly, it is normal in function. Atypical septal motion consistent with post-operative status. Prosthetic aortic valve per reported. Appears well seated, leaflets not well visualized. Mild aortic regurgitation. No aortic stenosis. Moderate tricuspid regurgitation. Moderate-severe pulmonary hypertension. Estimated RVSP is 52-57 mmHg. Estimated RA pressure is 15-20 mmHg. Cardiology following in consultation, appreciate recommendations Qualifiers: Heart failure type: diastolic Heart failure chronicity: chronic Qualified Code(s): I50.32 - Chronic diastolic (congestive) heart failure (8) GERD (gastroesophageal reflux disease) Current Visit: No Status: Chronic Assessment and plan: Continue Prilosec Qualifiers: Esophagitis presence: without esophagitis Qualified Code(s): K21.9 - Gastro -esophageal reflux disease without esophagitis (9) HTN (hypertension) Current Visit: No Status: Chronic Assessment and plan: History of HTN, continue beta mitzi Qualifiers: Hypertension type: essential hypertension Qualified Code(s): I10 - Essential (primary) hypertension (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 Current Visit: No Status: Chronic Assessment and plan: History of retinitis pigmentosa and macula degeneration Falls precautions, up with assist only (11) History of aortic valve replacement Current Visit: Yes Status: Acute Assessment and plan: History of valve replacement with prosthetic valve No longer taking Coumadin due to history of recurrent falls Coumadin was stopped by patient's development lead Dr. Lopez Remains on daily aspirin See above (12) Cardiomyopathy Current Visit: Yes Status: Acute Assessment and plan: See above Qualifiers: Cardiomyopathy type: unspecified Qualified Code(s): I42.9 - Cardiomyopathy , unspecified - Time Spent With Patient Total time spent is greater than 50% in coordination of care (as documented) at patient's floor/unit and/or counseling patient: 25 - 35 minutes - Subjective Interval history: Patient seen and examined at bedside today. No acute changes overnight. Continued to report right lower quadrant abdominal pain. However, denies nausea , vomiting or diarrhea. - Constitutional Vitals: Temp Pulse Resp BP Pulse Ox 97.4 F L 73 16 103/67 100 03/10/18 10:17 03/10/18 10:17 03/10/18 10:17 03/10/18 10:17 03/10/18 10:17 General appearance: Present: A&O X 3, pleasant, no acute distress, answers questions appropriately - Head Head exam: Present: atraumatic, normocephalic - Eye Eye exam: Present: EOMI, PERRL, conjuntiva pink, sclera anicteric Pupils: Present: PERRL - Neck Neck exam general surgery: Present: supple, trachea midline. Absent: lymphadenopathy - Respiratory Respiratory exam: Present: decreased breath sounds, CTAB. Absent: accessory muscle use, rales, respiratory distress, rhonchi, wheezes, tachypnea - Cardiovascular Cardiovascular exam: Present: RRR, +S1, +S2. Absent: diastolic murmur, gallop, rubs, systolic murmur - GI/Abdominal GI/Abdominal exam: Present: normal bowel sounds, soft, tenderness (RLQ), no peritoneal signs. Absent: distended, rebound - Extremities Exam Extremities exam: Present: normal capillary refill, normal inspection, warm, radial pulses palpable and symmetrical. Absent: calf tenderness, cyanotic, joint swelling, pedal edema, tenderness - Neurological Exam Neurological exam: Present: alert, CN II-XII intact, oriented X3, no focal deficits. Absent: pronater drift, facial droop, speech deficit - Skin Skin exam: Present: dry, intact Internal Medicine: Result - Labs CBC & Chem 7: 03/10/18 06:30 03/10/18 06:30 Labs: Short CBC 03/10/18 Range/Units 06:30 WBC 6.1 (4.3-11.1) K/mcL Hgb 9.3 L (11.5-15.4) g/dL Hct 29.0 L (35.3-44.9) % Plt Count 101 L (140-400) K/mcL [facility] 03/10/18 06:30 Sodium 140 Potassium 4.1 Chloride 107 Carbon Dioxide 26 BUN 52 H Creatinine 2.25 H Glucose 93 Calcium 8.8 - ABG Interpretation ABG results: PT/INR, D-dimer PT 13.8 Seconds (9.4-12.1) H 03/09/18 17:14 - VTE Documentation of Mechanical Device: Intermittent pneumatic compression device Consult Discharge Plan - Plan Referrals: Lokesh Cooper MD [Primary Care Provider] -
[2018-03-10] MEDS: Regadenoson 0.4 MG/5 ML SYRINGE IVP ONE ×2 (12:16→12:22)
--- NOTE | 2018-03-10 12:40 | Electrocardiograph Report ---
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
[2018-03-10 14:29] LABS: Bilirubin,Urine Negative (Negative); Blood,Urine Small (Negative); Clarity,Urine Clear (Clear); Color,Urine Yellow (Yellow); Glucose,Urine (UA) Normal (Normal); Ketones,Urine Negative (Negative); Leukocyte Esterase,Urine Small (Negative); Nitrite,Urine Negative (Negative); Protein,Urine 30 mg/dL (Neg-Trace); Specific Gravity,Urine 1.024 (1.010-1.025); Urobilinogen,Urine Normal (Normal)
[2018-03-10 14:31] LABS: Bacteria,Urine None Seen per hpf (None-Few); Hyaline Casts,Urine None Seen per lpf (None-Few); Squamous Epithelial Cell,Urine Many per lpf (None-Few)
--- NOTE | 2018-03-10 19:23 | Anesthesia Evaluation PreOp ---
Date of Encounter: 03/10/18 Time of Encounter: 20:34 - Past History Planned Operation: Lap. APPY Cardiac History: CHF, HTN, Hyperlipidemia, Cardiac Surgery (s/p cadaveric aortic valve replacement) Pulmonary History: Asthma, COPD, Other (Severe multilevel cervical myopathy with stenosis) Other Medical History: Renal (cri), Other (blind) Anesthesia History: No Prior Anesthetic Complications, Past Anesthesia (PAM, AVR ) : No Alcohol Use: none Drug use: none Medications and Allergies Cyclosporine [Restasis] 1 drop BOTH EYES BID 04/30/15 [History] Isosorbide MONOnitrate [Isosorbide Mononitrate ER] 60 mg PO DAILY 04/30/15 [ History] Potassium Chloride 20 meq PO DAILY 06/19/16 [History] Calcitriol [Rocaltrol] 0.25 mcg PO DAILY 03/20/17 [History] Fluticasone/Vilanterol [Breo Ellipta 100-25 Mcg INH] 1 each IH DAILY 07/20/17 [ History] Loratadine [Claritin] 10 mg PO DAILY 07/20/17 [History] Nystatin POWDER [Nystop] 1 appl TP BID 07/20/17 [History] Albuterol Sulfate [Albuterol Inhaler] 2 puff IH Q4HR PRN 08/27/17 [History] Atorvastatin Calcium [Lipitor] 20 mg PO HS 10/06/17 [History] Esomeprazole Magnesium [Nexium] 40 mg PO DAILY 10/06/17 [History] Aspirin Enteric Coated [Aspirin EC] 81 mg PO DAILY tablet. 11/02/17 [Rx] Amiodarone [Cordarone] 200 mg PO DAILY 11/28/17 [History] Docusate [Colace] 100 mg PO BID PRN capsule 12/02/17 [Rx] Fluticasone Propionate Nasal [Flonase] 50 mcg NS DAILY bottle 12/02/17 [Rx] Ipratropium/Albuterol Neb [Duoneb] 3 ml IH [id number] PRN 30 Days inhsol 12/02/17 [Rx] Metoprolol [Lopressor] 50 mg PO BID tablet 12/02/17 [Rx] Acetaminophen [Tylenol] 650 mg PO Q4HR PRN 02/11/18 [History] GuaiFENesin Liq [Robitussin Liq] 200 mg PO Q4HR PRN 02/11/18 [History] Furosemide [Lasix] 40 mg PO DAILY 03/09/18 [History] Quetiapine Fumarate [Seroquel] 50 mg PO HS 03/09/18 [History] 3 Allergy/AdvReac Type Severity Reaction Status Date / Time ciprofloxacin [From Cipro] Allergy Hives Verified 02/11/18 14:06 meperidine [From Demerol] AdvReac Vomiting Verified 02/11/18 14:06 - Meds/Allergy Pre-op Review Medications Reviewed: Yes Allergies Reviewed: Yes Beta Blockers on Current Med List: No (Not given Due to BP) Anesthesia Results - Labs 03/10/18 06:30 03/10/18 06:30 Echocardiogram Name: Janiya Barber Date of Study: 03/10/2018 EV/EV echocardiogram Impressions: Technically sub-optimal due to poor echocardiographic windows. LVEF 60-65%. Normal LV chamber size, wall thickness and function. Indeterminate diastolic function. Right ventricle was not well visualized. Grossly, it is normal in function. Atypical septal motion consistent with post-operative status. Prosthetic aortic valve per reported. Appears well seated, leaflets not well visualized. Mild aortic regurgitation. No aortic stenosis. Moderate tricuspid regurgitation. Moderate-severe pulmonary hypertension. - Imaging EKG: report reviewed (ATRIAL FIBRILLATION LOW QRS VOLTAGE IN EXTREMITY LEADS PROLONGED QT INTERVAL) Anesthesia Exam Vital Signs/O2 Sat, Most Current Temp Pulse Resp BP Pulse Ox 97.6 F 75 16 114/74 99 03/10/18 14:23 03/10/18 14:23 03/10/18 14:23 03/10/18 14:23 03/10/18 14:23 - HEENT Pupil (Motor): Pupils equal, EOMI Mallampati: II Teeth: Poor dentition Oral Opening: Greater than 3 - CLINICAL APPEALS SPECIALIST LOC: Oriented CLINICAL APPEALS SPECIALIST Motor: Normal RUE, Normal LUE, Normal RLE, Normal LLE, Normal Face CLINICAL APPEALS SPECIALIST Sensory: Normal: RUE, LUE, RLE, LLE, Face - Cardiac Rhythm: Irregular Murmur: None JVD: No Carotid Bruit: No - Pulmonary Breath Sounds: bilateral Clear Respiratory Effort: Symmetrical Anesthesia Assess/Plan ASA Score: 4 Modified Brenda Scale for Level of Consciousness: Cooperative, oriented, and tranquil Anesthetic Plan: General Autologous Blood: Yes Monitoring Plan: Standard Monitors Recovery Plan: PACU
[2018-03-10] MEDS ORDERED: *HR* Rocuronium Bromide 50 MG/5 ML VIAL ONE (20:38)
[2018-03-10] MEDS ORDERED: Ondansetron 4 MG/2 ML VIAL ONE (20:38)
[2018-03-10] MEDS ORDERED: *HR* Midazolam HCl 2 MG/2 ML VIAL ONE (20:38)
[2018-03-10] MEDS ORDERED: Dexamethasone 4 MG/ML VIAL ONE (20:38)
[2018-03-10] MEDS ORDERED: Lidocaine -MPF 2% 2 ML VIAL ONE (20:38)
[2018-03-10] MEDS ORDERED: *HR* FentaNYL (PF) 100 MCG/2 ML VIAL ONE (20:38)
[2018-03-10] MEDS ORDERED: *HR* Succinylcholine 200 MG/10 ML VIAL IVP ONE (20:38)
[2018-03-10] MEDS ORDERED: *HR* Propofol 200 MG/20 ML VIAL IVP ONE (20:38)
[2018-03-10] MEDS ORDERED: *HR* PHENYLEPHRINE 1,000 MCG/10 ML SYRINGE IVP ONE (20:57)
[2018-03-10] MEDS ORDERED: Albuterol 2.5 MG/3 ML NEBULIZER IH ONE (21:08)
[2018-03-10] MEDS ORDERED: Ondansetron 4 MG/2 ML VIAL IVP ONE (21:08)
[2018-03-10] MEDS ORDERED: Ketorolac 15 MG/ML VIAL IVP ONE (21:08)
[2018-03-10] MEDS ORDERED: *HR* Promethazine 25 MG/ML VIAL IVP PRN (21:08)
[2018-03-10] MEDS ORDERED: *HR* OxyCODONE Immed Rel 5 MG TABLET PO PRN (21:08)
[2018-03-10] MEDS ORDERED: *HR* Labetalol 20 MG/4 ML SYRINGE IVP PRN (21:08)
[2018-03-10] MEDS ORDERED: MORPHINE SUL Oral CONC 10 MG/0.5 ML ORAL.SYG SL PRN (21:08)
--- NOTE | 2018-03-10 21:37 | Operative Note ---
Date of procedure: 03/10/18 Pre-op diagnosis: acute appendicitis Post-op diagnosis: same Procedure: laparoscopic appendectomy Complications: none immediate Anesthesia: GETA, local Local Anesthetics: 0.5% Sensorcaine HCL SubQ (cc) Surgeon: Crystal Jimenez Was there an workers compensation claims assistant present: No Estimated blood loss (cc): 5 Specimen: appendix Condition: stable Disposition: PACU Procedure in Detail: The patient was brought into the operating suite and placed supine on the operating table. Sign-in was performed and everyone was in agreement. Anesthesia was induced and patient was endotracheally intubated by anesthesia without incident. An OG tube was placed by anesthesia. Parks catheter was placed by circulating nurse. The abdomen was prepped and draped in the usual sterile fashion. A timeout was performed and again everyone was in agreement. A supraumbilical incision was made through the skin and the subcutaneous tissue with an 11 blade. Towel clamps were placed on either side of the umbilicus for retraction. S-retractors were used to dissect down to the anterior abdominal wall linea alba fascia. A Veress needle was placed into this incision and a water drop test confirmed placement and the abdomen was insufflated. We then entered the abdomen with the 5 mm 0 degree laparoscope on a 5 mm X-kavon trocar. The area under entry was visualized and there was no bleeding and no apparent bowel injury. We placed a suprapubic 5 mm port under direct visualization after first incising the skin with an 11 blade. The laparoscope was placed through this and we exchanged the supraumbilical port for a 12 mm port under direct visualization. We then placed another 5 mm port in the left lower quadrant position under direct visualization after first incising the skin with an 11 blade. The patient was placed in slight Trendelenburg left side down position. The cecum was located as was the appendix. The appendix was grasped and retracted anteriorly and caudally with a laparoscopic Radha. The tip of the appendix was adherent to the retroperitoneum. A [place] was used to dissect between the mesoappendix and the appendix at the base of the cecum. The appendix was transected at the base of the cecum with the Flex-ex ETS stapler utilizing a white load. The appendix was then elevated with a laparoscopic radha and mesoappendix was dissected off the retroperitoneum with the bovie. During the retraction the appendix tore. The still adherent distal appendix tip was dissected free with gentle blunt dissection. Both pieces of appendix were removed from the abdomen. The staple line was evaluated and there was no bleeding and the staple line were intact. The area was irrigated with sterile saline which was then suctioned free from the abdomen. A large surgicel was placed at the site for 5 minutes then removed. There was no bleeding at the site. The insufflation was suctioned free from the abdomen and all trochars removed. We closed the abdominal wall at the supraumbilical incision site with an 0 Vicryl [id number] stitch. A 30 cc of 0.5% Marcaine was injected subcutaneously at the 3 port sites. The skin at the two 5 mm port sites was closed with 4-0 Monocryl interrupted subcuticular stitches. The skin at the supraumbilical incision site was closed with a 4-0 Monocryl running subcuticular stitch. Steri-Strips were applied to the wounds. The patient was extubated in the OR and tolerated the procedure well and was taken to PACU after all lap and instrument counts were correct at the end of the case.
[2018-03-10] MEDS ORDERED: Acetaminophen IV 1,000 MG/100 ML INFUS..BTL ONE (22:05)
[2018-03-10] MEDS ORDERED: Acetaminophen IV 1,000 MG/100 ML INFUS..BTL IVPB ONE (22:12)
[2018-03-10] MEDS ORDERED: *HR* Labetalol 100 MG/20 ML MDV IVP PRN (22:15)
--- NOTE | 2018-03-10 22:36 | Anesthesia Evaluation Post Op ---
Date of Encounter: 03/10/18 Time of Encounter: 22:36 - Vital Signs Vital Signs: Vital Signs/O2 Sat, Most Current Temp Pulse Resp BP Pulse Ox 97.2 F L 85 16 111/89 98 03/10/18 22:19 03/10/18 22:29 03/10/18 22:29 03/10/18 22:29 03/10/18 22:29 - Lungs Lungs: Clear Ascult./Percussion - Airway Airway: Non-obstructed - Cardiovascular Regular Rate - Mental Status Mental Status: Alert & Oriented, Answers Appropriately - Pain Pain Scale: 5 Pain Scale used: Numeric (1 - 10) - Nausea Vomiting Nausea Vomiting: Not Present - Hydration Hydration: Ice chips, Has not voided - Discharge PostOp Status: Transfer Patient to floor
[2018-03-10] MEDS ORDERED: Ipratropium/Albuterol Neb 3 ML IH PRN (22:40)
[2018-03-10] MEDS ORDERED: GuaiFENesin Liq 200 MG/10 ML UDC PO PRN (22:40)
[2018-03-11] MEDS ORDERED: 0.9 % Sodium Chloride 500 ML ONE ×3 (00:06→04:11)
[2018-03-11 01:27] LABS: Basophils % 0.2 %; Eosinophils # 0.1 K/mcL (0.0-0.6); Hematocrit 21.7 % (35.3-44.9); Hemoglobin 6.7 g/dL (11.5-15.4); Immature Granulocytes % 0.6 % (0-4); Mean Corpuscular HGB Conc 30.9 g/dL (31.6-35.5); Mean Corpuscular Volume 97.3 fL (83.0-100.0); Mean Platelet Volume 10.3 fL (9.4-12.4); Monocytes # 0.2 K/mcL (0.0-1.3); Monocytes % 2.2 %; Neutrophils # 7.4 K/mcL (1.6-8.9); Platelet Count 118 K/mcL (140-400); Red Blood Count 2.23 M/mcL (3.82-4.97)
[2018-03-11] MEDS ORDERED: 0.9 % Sodium Chloride 250 ML IVC ONE (01:30)
--- NOTE | 2018-03-11 01:30 | Event Note ---
Date of Encounter: 03/10/18 Time of Encounter: 23:58 Alerted by pts. nurse NICKY Carl that pt. had returned to the floor post- laparoscopic appendectomy by Dr. Jimenez this evening. Pt. returned to floor at approximately 22:40. BP was 62/43 w/axillary temperature of 96.1F, HR of 95, and SpO2 of 100% on 2L via NC. Went to see the pt. who was alert and oriented x3 and resting comfortably in bed. Pt. stated she was experiencing minor abdominal pain from the surgery but denied any SOB, CP, or other discomfort. Discussed pt. w/Dr. Fraga. Order for 500 mL 0.9 NS bolus placed w/orders to check BP Q15MIN. BP @ 00:11 was 62/48, @ 00:20 was 82/45, and @ 00:35 was 85/ 49. BP continued to drop w/IV fluids running. @ 01:15 BP was 58/40. Discussion to place central line and move pt. to ICU discussed w/Dr. Fraga and Elder in Bed Management. Pts. Hgb 9.3 @ 06:30 this morning. Hgb 6.7 @ 00:47. Concern for bleeding post-procedure. Surgery paged and pt. condition discussed by Dr. Fraga w/Dr. Silva. Pt. to be transfused 2 units PRBCs and transferred to ICU.
[2018-03-11 01:32] LABS: Calcium 8.1 mg/dL (8.6-10.3); Potassium 4.8 mEq/L (3.5-5.1)
[2018-03-11] MEDS: 0.9 % Sodium Chloride 500 ML IVC ONE ×2 (01:33→03:15)
[2018-03-11] MEDS: Piperacillin/Tazobactam 3.375 GM in 0.9 % Sodium Chloride Mini Bag 100 ML IVPB SCH ×2 (02:10→14:01)
[2018-03-11] MEDS ORDERED: Ringers Solution, Lactated 1,000 ML ONE (02:17)
[2018-03-11] MEDS ORDERED: Ondansetron 4 MG/2 ML VIAL ONE (02:21)
--- NOTE | 2018-03-11 04:06 | Event Note ---
Date of Encounter: 03/11/18 Time of Encounter: 03:57 Patient arrived to the ICU and does not look well at all. She is pale, hypotensive and hypoxic. She is complaining of severe nausea and had a very loose non-bloody BM. Nursing staff placed a herrera catheter and noticed large clots of blood in her vagina. Patient was started on Dopamine via peripheral IV for MAP in the low 50's. She was c/o nausea and started to dry heave when she became bradycardic into the 40's. She was placed on transcutaneous pacer pads and have atropine on standby. Patient also getting blood at this time but we decided to pressure bag it in and her BP responded very well to this. 2U PRBCs have been given, 2 more will be ordered for a total of 4U PRBCs. Bedside US shows moderate amount of free fluid in the RUQ concerning for blood but patient is very recent post-op and according to the note had saline irrigation prior to closure. On-call surgeon consulted, Dr. Silva, and is on his way in to see the patient. Suspect that she is bleeding post-procedure and will likely need to return to the OR if she does not stabilize. Patient is quite anxious and tachycardic now and has a h/o A-fib. EKG shows a-fib with no acute ischemia. We were setting up for a R-IJ CVC and patient will not tolerate laying flat and pre-procedure US shows that her IJ is directly overlying her carotid and she is very difficult to keep still. Her MAP has now improved with blood and dopamine. We will hold off on CVC placement at this time as this would be safest for the patient to have it placed under general anesthesia if she returns to the OR. 04:15 - Dr. Silva at bedside. Ordering STAT labs and will monitor. Patient has significantly stabilized after blood administration and has now been weaned off pressors. Labs are looking ok as well. Will continue to monitor. No OR currently per surgery but patient will remain in the ICU and will consult critical care team
[2018-03-11] MEDS ORDERED: 0.9 % Sodium Chloride 250 ML ONE (04:17)
[2018-03-11 04:46] LABS: Basophils % 0.1 %; Monocytes % 3.6 %
[2018-03-11 04:48] LABS: Eosinophils % 0.2 %; Hematocrit 30.5 % (35.3-44.9); Hemoglobin 10.2 g/dL (11.5-15.4); Immature Granulocytes % 0.8 % (0-4); Immature Platelets 3.7 % (1.1-6.1); Lymphocytes # 1.1 K/mcL (0.6-4.6); Lymphocytes % 5.8 %; Mean Corpuscular HGB Conc 33.4 g/dL (31.6-35.5); Mean Corpuscular Hemoglobin 31.4 pg (28.0-33.3); Mean Corpuscular Volume 93.8 fL (83.0-100.0); Mean Platelet Volume 10.7 fL (9.4-12.4); Monocytes # 0.7 K/mcL (0.0-1.3); Neutrophils # 17.3 K/mcL (1.6-8.9); Nucleated Red Blood Cells 0.3 /100 WBC (0); Platelet Count 101 K/mcL (140-400); Red Blood Count 3.25 M/mcL (3.82-4.97); Red Cell Distribution Width 15.2 % (11.5-14.5); Segmented Neutrophils % 89.5 %
[2018-03-11 04:56] LABS: INR 1.8; Prothrombin Time 19.7 Seconds (9.4-12.1)
[2018-03-11 04:58] LABS: Activated Partial Thrombo Time 27.9 Seconds (26.0-36.0)
[2018-03-11 05:09] LABS: Albumin 2.8 g/dL (3.5-5.7); Albumin/Globulin Ratio 1.2 (1.1-2.2); Bilirubin,Direct 0.2 mg/dL (0.0-0.2); Bilirubin,Indirect 0.6 mg/dL (0.0-1.2); Bilirubin,Total 0.8 mg/dL (0.3-1.0); Calcium 7.9 mg/dL (8.6-10.3); Globulin 2.4 g/dL (2.4-3.5); Potassium 5.3 mEq/L (3.5-5.1); Total Protein 5.2 g/dL (6.4-8.9)
[2018-03-11] MEDS ORDERED: Regadenoson 0.4 MG/5 ML SYRINGE IVP ONE (06:09)
--- NOTE | 2018-03-11 06:16 | Event Note ---
Date of Encounter: 03/11/18 Time of Encounter: 04:00 Patient seen and examined; 72F PMH significant for asthma, atrial fibrillation, cardiomyopathy, CHF, COPD, valvular heart disease s/p Ross Procedure who is now patient is s/p lap appy now with hypotension (lowest SBP ~ 60s, currently @ 80s- 100s); tachycardic (patient has history of afib), elevated Cr (patient has CKD stage IV); currently on pressors; concerned that the abdomen is more distended since arrival to ICU, possibly indicating post procedural bleeding. patient is A&Ox 3, pale skin, appropriately tender post op; abdomen is obese, but soft; mildly distended; non peritoneal; hgb@6.7, currently on dopamine; completing third PRBC; recommend repeat labs; if poor response, then patient will need to return to the OR; This was discussed with the patient 2nd evaluation - patient did have appropriate response to transfusion; recommended weaning off pressors; 3rd evaluation - The nurse managed to wean pressors off; patient maintaining blood pressure; Will continue to monitor; no return to OR at present
--- NOTE | 2018-03-11 06:44 | Pulmonology Consult Note ---
<Chris Henriquez - Last Filed: 03/11/18 09:18> Date of Encounter: 03/11/18 Time of Encounter: 06:39 Assessment and Plan (1) Anemia Current Visit: Yes Status: Acute 1. s/p 3U PRBC transfusion 2. Monitor H/H closely 3. Transfuse to keep HGB >7 4. Surgery following, if high concern of bleeding then will likely need trip to OR but is stable for now 5. Patient was hypotensive and tachycardic prior to PRBCs and was on pressors for a short time. A CVC was not placed at that time and she is now off pressors , if she develops the need again for pressure support, will place a CVC Qualifiers: Anemia type: other cause Other causes of anemia: acute posthemorrhagic Qualified Code(s): D62 - Acute posthemorrhagic anemia (2) Atrial fibrillation Current Visit: No Status: Acute 1. Chronic, maintain home meds Qualifiers: Atrial fibrillation type: persistent Qualified Code(s): I48.1 - Persistent atrial fibrillation (3) Right lower quadrant pain Current Visit: No Status: Acute 1. POD 1 s/p lap appy 2. Abd distended and expected post-op tenderness 3. Abd slightly more distended than her usual and some concern over potential bleeding, will monitor closely while in ICU but otherwise surgery is aware and following (4) DVT prophylaxis Current Visit: No Status: Acute 1. Hold chemical prophylaxis at this time due to concern over bleeding 2. EPCDs ordered and on History of Present Illness Consult date: 03/11/18 Requesting physician: Renetta Fraga Reason for consult: other Chief complaint: hypotension s/p surgery History of present illness: Patient is a 72-year-old female who underwent laparoscopic appendectomy yesterday for appendicitis. Patient was postop on the surgery floor when she became hypotensive and short of breath so she was transferred down to the ICU. Upon arrival to the ICU. Patient was hypotensive with maps in the 50s. Her abdomen was distended and mildly tender but soft. There was some concern over postoperative bleeding, so 2 units of blood were ordered. She had responded well to the blood, but was requiring pressor support with dopamine. A third unit of blood was ordered and she was able to be weaned off the dopamine. Central line was not placed as she has stabilized and likely will not require continued pressors support. Patient denying any chest pain, shortness of breath at this time. Her abdominal pain has not worsened and her nausea is under control. Also of note, she had some bleeding from her vagina and has a small laceration to her inferior introitus Past Med Surg Social Fam HX - Past Medical History Medical history: arthritis, asthma, CHF, COPD, GERD, hyperlipidemia, hypertension, osteoporosis, renal disease, venous stasis, valvular heart disease , other Additional medical history: blind Psychiatric history: anxiety, depression - Past Surgical History Surgical History: cataract, cholecystectomy, heart valve replacement, herniorrhaphy, hysterectomy, knee replacement, orthopedic, other, sinus surgery , other Additional surgical history: lung surgery - right pleurodesis secondary to pleural effusions after cardiac surgery. "Ross" heart procedure- 1994 [facility] - Social History Smoking Status: Never smoker Smokeless Tobacco Status: No Alcohol use: none Drug use: none - Family History Father Family Member Ethnicity: Non- Living Status: Hx Family Cardiac Disorders: Yes (HD, Pig valve, HD) Hx Family Cancer: Yes (Cancer on lip) Hx Family GI Disorders: Yes (CKD) Hx Family Endocrine Disorder: Yes (Gallstones) Sister Family Member Ethnicity: Non- Living Status: Hx Family Endocrine Disorder: Yes (DM) Mother Living Status: Hx Family Cardiac Disorders: Yes (HD, Anemia) Medications and Allergies Cyclosporine [Restasis] 1 drop BOTH EYES BID 04/30/15 [History] Isosorbide MONOnitrate [Isosorbide Mononitrate ER] 60 mg PO DAILY 04/30/15 [ History] Potassium Chloride 20 meq PO DAILY 06/19/16 [History] Calcitriol [Rocaltrol] 0.25 mcg PO DAILY 03/20/17 [History] Fluticasone/Vilanterol [Breo Ellipta 100-25 Mcg INH] 1 each IH DAILY 07/20/17 [ History] Loratadine [Claritin] 10 mg PO DAILY 07/20/17 [History] Nystatin POWDER [Nystop] 1 appl TP BID 07/20/17 [History] Albuterol Sulfate [Albuterol Inhaler] 2 puff IH Q4HR PRN 08/27/17 [History] Atorvastatin Calcium [Lipitor] 20 mg PO HS 10/06/17 [History] Esomeprazole Magnesium [Nexium] 40 mg PO DAILY 10/06/17 [History] Aspirin Enteric Coated [Aspirin EC] 81 mg PO DAILY tablet. 11/02/17 [Rx] Amiodarone [Cordarone] 200 mg PO DAILY 11/28/17 [History] Docusate [Colace] 100 mg PO BID PRN capsule 12/02/17 [Rx] Fluticasone Propionate Nasal [Flonase] 50 mcg NS DAILY bottle 12/02/17 [Rx] Ipratropium/Albuterol Neb [Duoneb] 3 ml IH [id number] PRN 30 Days inhsol 12/02/17 [Rx] Metoprolol [Lopressor] 50 mg PO BID tablet 12/02/17 [Rx] Acetaminophen [Tylenol] 650 mg PO Q4HR PRN 02/11/18 [History] GuaiFENesin Liq [Robitussin Liq] 200 mg PO Q4HR PRN 02/11/18 [History] Furosemide [Lasix] 40 mg PO DAILY 03/09/18 [History] Quetiapine Fumarate [Seroquel] 50 mg PO HS 03/09/18 [History] 3 Allergy/AdvReac Type Severity Reaction Status Date / Time ciprofloxacin [From Cipro] Allergy Hives Verified 02/11/18 14:06 meperidine [From Demerol] AdvReac Vomiting Verified 02/11/18 14:06 All Systems: The remainder of the systems were reviewed and are negative Review of Systems: As reviewed in the HPI. All other systems reviewed are negative or normal. Physical Examination Vital Signs: Vital Signs, Last 4 Hours Temp Pulse Resp BP Pulse Ox 03/11/18 06:00 96.6 F L 90 18 107/57 100 03/11/18 05:27 96.2 F L 98 16 100/54 100 03/11/18 05:11 96.2 F L 101 16 92/58 98 03/11/18 05:00 108 16 111/66 99 03/11/18 04:52 96.6 F L 107 16 94/63 100 03/11/18 04:47 96.6 F L 109 18 92/57 100 03/11/18 04:33 95.7 F L 105 18 111/64 100 03/11/18 04:30 111 14 117/69 100 03/11/18 04:22 96.4 F L 110 28 102/62 100 03/11/18 04:08 96.4 F L 106 18 105/63 100 03/11/18 03:44 95 F L 115 22 111/76 100 03/11/18 03:37 95.2 F L 112 16 90/54 100 03/11/18 03:30 107 22 71/47 81 03/11/18 03:20 95.4 F L 111 16 103/88 100 03/11/18 03:05 95.9 F L 90 20 103/88 97 General appearance: no acute distress, alert Eyes: nonicteric ENT: oropharynx dry Neck: supple Effort: normal Inspection: normal Auscultation: bilateral: diminished breath sounds Cardiovascular: irregular rhythm (Tachycardic) Gastrointestinal: hypoactive bowel sounds, tender (as expected post-op, laparoscopic incisions are clean, dry and intact, no guarding) Integumentary: other (There is a small laceration to the inferior introitus which is unclear in etiology, but no active bleeding after clot was evacuated.) Extremities: no cyanosis, pulses normal Musculoskeletal: no deformities, ROM normal normal mental status, non-focal exam, pupils equal and round mood appropriate, affect normal Results - Laboratory Findings CBC and BMP: 03/11/18 06:49 03/11/18 04:17 PT/INR, D-dimer PT 19.7 Seconds (9.4-12.1) H 03/11/18 04:17 Abnormal lab findings: Abnormal lab results WBC 19.3 K/mcL (4.3-11.1) H D 03/11/18 04:17 RBC 3.25 M/mcL (3.82-4.97) L 03/11/18 04:17 Hgb 10.2 g/dL (11.5-15.4) L D 03/11/18 04:17 Hct 30.5 % (35.3-44.9) L 03/11/18 04:17 RDW 15.2 % (11.5-14.5) H 03/11/18 04:17 Plt Count 101 K/mcL (140-400) L 03/11/18 04:17 Neutrophils # 17.3 K/mcL (1.6-8.9) H 03/11/18 04:17 Nucleated RBCs/100 WBC 0.3 /100 WBC (0) H 03/11/18 04:17 PT 19.7 Seconds (9.4-12.1) H 03/11/18 04:17 Potassium 5.3 mEq/L (3.5-5.1) H 03/11/18 04:17 Chloride 111 mEq/L (98-107) H 03/11/18 04:17 Carbon Dioxide 19 mEq/L (23-29) L 03/11/18 04:17 BUN 46 mg/dL (8-23) H 03/11/18 04:17 Creatinine 2.27 mg/dL (0.60-1.20) H 03/11/18 04:17 Est GFR ( Amer) 26 (> 60) L 03/11/18 04:17 Est GFR (Non-Af Amer) 21 (> 60) L 03/11/18 04:17 Glucose 204 mg/dL (70-105) H 03/11/18 04:17 POC Glucose 134 mg/dL (70-99) H 03/11/18 02:07 Calculated Osmolality 308 (280-300) H 03/11/18 04:17 Calcium 7.9 mg/dL (8.6-10.3) L 03/11/18 04:17 B-Natriuretic Peptide 597 pg/mL (Less than 100) H 03/10/18 06:30 Serum Total Protein 5.2 g/dL (6.4-8.9) L 03/11/18 04:17 Albumin 2.8 g/dL (3.5-5.7) L 03/11/18 04:17 Urine Protein 30 mg/dL (Neg-Trace) H 03/10/18 14:10 Urine Blood Small (Negative) H 03/10/18 14:10 Ur Leukocyte Esterase Small (Negative) H 03/10/18 14:10 Urine Microscopic RBC 5-15 per hpf (0-3) H 03/10/18 14:10 Urine Microscopic WBC 5-15 per hpf (0-3) H 03/10/18 14:10 Ur Squamous Epith Cells Many per lpf (None-Few) H 03/10/18 14:10 Ur Culture Indicated? NO. (NO) A 03/10/18 14:10 - Clinical Findings Intake & Output: Intake & Output 0603/10/18 03/11/18 15:59 23:59 07:59 Intake Total 100 / 100 100 / 100 1982.1981.1 Output Total 800 / 800 205 / 205 50 / 50 Balance -700 / -700 -105 / -105 1931.1931. Consult Discharge Plan - Plan Referrals: Lokesh Cooper MD [Primary Care Provider] - <[place] Minor Gaurang - Last Filed: 03/11/18 17:06> Date of Encounter: 03/11/18 All Systems: The remainder of the systems were reviewed and are negative Physical Examination Vital Signs: Vital Signs, Last 4 Hours Temp Pulse Resp BP Pulse Ox 03/11/18 16:00 99.0 F 98 18 102/54 96 03/11/18 15:15 102 22 103/53 96 03/11/18 14:33 100 16 102/50 97 Results - Laboratory Findings CBC and BMP: 03/11/18 11:55 03/11/18 04:17 PT/INR, D-dimer PT 19.7 Seconds (9.4-12.1) H 03/11/18 04:17 Abnormal lab findings: Abnormal lab results WBC 19.3 K/mcL (4.3-11.1) H D 03/11/18 04:17 RBC 3.25 M/mcL (3.82-4.97) L 03/11/18 04:17 RDW 15.2 % (11.5-14.5) H 03/11/18 04:17 Plt Count 101 K/mcL (140-400) L 03/11/18 04:17 Neutrophils # 17.3 K/mcL (1.6-8.9) H 03/11/18 04:17 Nucleated RBCs/100 WBC 0.3 /100 WBC (0) H 03/11/18 04:17 PT 19.7 Seconds (9.4-12.1) H 03/11/18 04:17 Potassium 5.3 mEq/L (3.5-5.1) H 03/11/18 04:17 Chloride 111 mEq/L (98-107) H 03/11/18 04:17 Carbon Dioxide 19 mEq/L (23-29) L 03/11/18 04:17 BUN 46 mg/dL (8-23) H 03/11/18 04:17 Creatinine 2.27 mg/dL (0.60-1.20) H 03/11/18 04:17 Est GFR ( Amer) 26 (> 60) L 03/11/18 04:17 Est GFR (Non-Af Amer) 21 (> 60) L 03/11/18 04:17 Glucose 204 mg/dL (70-105) H 03/11/18 04:17 POC Glucose 107 mg/dL (70-99) H 03/11/18 11:16 Calculated Osmolality 308 (280-300) H 03/11/18 04:17 Calcium 7.9 mg/dL (8.6-10.3) L 03/11/18 04:17 B-Natriuretic Peptide 597 pg/mL (Less than 100) H 03/10/18 06:30 Serum Total Protein 5.2 g/dL (6.4-8.9) L 03/11/18 04:17 Albumin 2.8 g/dL (3.5-5.7) L 03/11/18 04:17 Urine Protein 30 mg/dL (Neg-Trace) H 03/10/18 14:10 Urine Blood Small (Negative) H 03/10/18 14:10 Ur Leukocyte Esterase Small (Negative) H 03/10/18 14:10 Urine Microscopic RBC 5-15 per hpf (0-3) H 03/10/18 14:10 Urine Microscopic WBC 5-15 per hpf (0-3) H 03/10/18 14:10 Ur Squamous Epith Cells Many per lpf (None-Few) H 03/10/18 14:10 Ur Culture Indicated? NO. (NO) A 03/10/18 14:10 - Clinical Findings Intake & Output: Intake & Output 03/11/18 03/11/18 03/11/18 07:59 15:59 23:59 Intake Total 1981.1981.1 75 / 75 25 / 25 Output Total 50 / 50 30 Balance 1931. / 1931.1 45 / 45 - Attending Attestation I examined this patient and my medical decision-making was reviewed with the Resident Physician. I agree with the documented findings, disposition and treatment plan as described except to the extent set forth below. Patient seen and examined. Labs, radiology, chart personally reviewed. Agree with resident's history and physical, assessment, plan with following comments: CONSULTING TECHNICAL MANAGER: Patient follows commands, Pulmonary: Acceptable oxygenation and ventilation and need bronchodilators. Cardiovascular: stable GI: Nutrition per dietary and GI prophylaxis per routine. Patient abdominal examination is tender and its postsurgical and surgery is aware of CT finding and for now with monitoring. Heme: DVT prophylaxis per routine. Monitor H&H and transfuse packed RBC if hemoglobin drops. Renal; urine out put and renal funtion reviewed Endorcine: blood glucose is monitored Lines: all lines checked and no evidence of infections Skin: skin care to prevent pressure ulcers per nursing routine care Patient needs close monitoring in ICU.
[2018-03-11 07:08] LABS: Hematocrit 42.9 % (35.3-44.9)
[2018-03-11 07:23] LABS: Hemoglobin 14.4 g/dL (11.5-15.4)
[2018-03-11] MEDS ORDERED: FLUTICASONE IH SCH (09:00)
[2018-03-11] MEDS ORDERED: (Cyclosporine [Restasis] 1 DROP) OP SCH (09:00)
[2018-03-11] MEDS ORDERED: VILANTEROL IH SCH (09:00)
[2018-03-11] MEDS ORDERED: Isosorbide MONOnitrate (24 HR) 60 MG TAB.ER.24H PO SCH (09:00)
[2018-03-11] MEDS: Loratadine 10 MG TABLET PO SCH (09:44)
[2018-03-11] MEDS: Aspirin Enteric Coated 81 MG Tablet PO SCH (09:45)
[2018-03-11] MEDS: Furosemide 40 MG TABLET PO SCH (09:45)
[2018-03-11] MEDS: *HR* Amiodarone 200 MG TABLET PO SCH (09:45)
[2018-03-11] MEDS ORDERED: Artificial Tears SOLN 15 ML BOTTLE OP PRN (10:28)
[2018-03-11] MEDS ORDERED: D5% in Water 1,000 ML IVC PRN (10:29)
[2018-03-11] MEDS ORDERED: *HR* Dextrose 50 % in Water (Syg) 50 ML SYRINGE IVP PRN (10:29)
[2018-03-11] MEDS ORDERED: Dextrose Gel 15 GM/37.5 ML TUBE PO PRN ×2 (10:29)
[2018-03-11] MEDS: *HR* HYDROcodone/Acet 5/325 mg TABLET PO PRN ×2 (11:19→19:35)
[2018-03-11] MEDS: Fluticasone Propionate Nasal 50 MCG/SPRAY BOTTLE NS SCH (11:20)
[2018-03-11] MEDS: Insulin LISPRO 300 UNITS/3 ML VIAL SQ SCH ×3 (11:27→23:03)
--- NOTE | 2018-03-11 12:13 | Cardiology Progress Note ---
Date of Encounter: 03/11/18 Time of Encounter: 12:05 Assessment and Plan (1) Pre-operative cardiovascular examination Current Visit: Yes Status: Acute Cardiology consulted for pre-operative cardiovascular examination. S/p laparoscopic appendectomy. Surgery completed last night. Stress test deferred due to urgency of surgey. TTE was completed and reviewed. EF remains preserved. No cardiac complications noted tyron-operatively. Remains in rate controlled afib. Stress test cancelled. Cardiology will sign off. Call with questions or cardiac concerns. (2) Chest pain Current Visit: No Status: Acute C/o intermittent chest pain over lawt month. Chest pain is atypical. Stress test cancelled due to urgency of surgery. TTE reviewed:LVEF 60-65%. Normal LV chamber size, wall thickness and function. Indeterminate diastolic function. Right ventricle was not well visualized. Grossly, it is normal in function. Atypical septal motion consistent with post- operative status. Prosthetic aortic valve per reported. Appears well seated, leaflets not well visualized. Mild aortic regurgitation. No aortic stenosis. Moderate tricuspid regurgitation. Moderate-severe pulmonary hypertension. Estimated RVSP is 52-57 mmHg. Estimated RA pressure is 15-20 mmHg. No hsitory of CAD. LHC in 2008 showed luminal irregularities. Stress test 2014 was negative for ischemia. No further cardiac testing at this time recommended s/p appendectomy. She is not a candidate for ischemic evaluation. Out-pt f/u with Dr. Lopez will be scheduled. Qualifiers: Chest pain type: unspecified Qualified Code(s): R07.9 - Chest pain, unspecified (3) H/O bicuspid aortic valve Current Visit: No Status: Chronic S/p Ross procedure in 1994.TTE shows well seated aortic valve with mild regurgitation. Follows with Dr. Lopez. (4) Congestive heart failure Current Visit: No Status: Chronic H/o chronic CHFpEF. Repeat TTE shows preserved EF. Noted to have chronic BLE edema. Currently receiving IV fluid for resucitation. Monitor closely while receiving IV fluid. On maintenence oral lasix. Low sodium diet. Qualifiers: Heart failure type: diastolic Heart failure chronicity: chronic Qualified Code(s): I50.32 - Chronic diastolic (congestive) heart failure (5) Paroxysmal A-fib Current Visit: No Status: Acute EKG shows rate controlled afib. Rate controlled afib on telemetry. Continue amiodarone. Re-start lopressor when bb allows. Reports multiple falls this year and was evaluated for pancytopenia. AC stopped in November for concerns. Restart asa when safe from surgery standpoint. CT shows hematoma after surgery. Currently not a candidate for snf AC. Discussion w patient/family: The assessment and plan as outlined above was discussed with the patient and/or family members who expressed understanding and agreement. All questions were answered. Thank you for involving us in the care of your patient. Please call with any questions. Subjective Principal diagnosis: acute appendacitis Interval history: s/p lap appendectomy for acute appendacitis. Patient taken to OR last night due to concern of no improvement with IV antibiotic. No cardiac events noted during surgery. After surgery patient developed hypotension and anemia (Hgb 6.7) requiring blood transfusion. Blood pressure improved. Hgb up to 14.4. Patient currently denies chest pain. States that she did have chest discomfort last night when blood pressure was low. Chest pain resolved. C/o abdominal discomfort and tenderness. Objective Vital Signs, Last 4 Hours Temp Pulse Resp BP Pulse Ox 03/11/18 12:00 98.1 F 94 20 119/54 99 03/11/18 11:09 95 22 115/64 100 03/11/18 10:00 96 20 107/56 99 03/11/18 09:20 98 20 98/52 96 03/11/18 08:24 98 16 95/49 98 03/11/18 08:06 94 General: Conversant, No Apparent Distress HEENT: Atraumatic, Normocephaly, Mucus Membranes Moist Neck: No JVD, Normal carotid pulses Cardiac: Other (Irregularly irregular) Lungs: Normal Breath Sounds, No Wheeze, Rales, Rhonchi Neuro: Alert and responsive, No focal deficits noted Abdomen: Other (abdomen distended and tender) Skin: No rashes noted on visualized skin Musculoskeletal: No Chest Wall Tenderness Extremities: No Clubbing, No Cyanosis, Normal Pulses, Other (Non-pitting edema noted. ) Results 03/11/18 06:49 03/11/18 04:17 Lab Results 03/11/18 03/11/18 03/11/18 00:47 00:47 04:17 WBC 8.7 19.3 H D Hgb 6.7 L D 10.2 L D Hct 21.7 L 30.5 L Plt Count 118 L 101 L INR APTT Sodium 140 Potassium 4.8 Chloride 111 H Carbon Dioxide 24 BUN 46 H Creatinine 2.30 H Glucose 140 H Calcium 8.1 L Total Bilirubin AST ALT Alkaline Phosphatase 03/11/18 03/11/18 03/11/18 04:17 04:17 06:49 WBC Hgb 14.4 D Hct 42.9 Plt Count INR 1.8 APTT 27.9 Sodium 140 Potassium 5.3 H Chloride 111 H Carbon Dioxide 19 L BUN 46 H Creatinine 2.27 H Glucose 204 H Calcium 7.9 L Total Bilirubin 0.8 AST 27 ALT 18 Alkaline Phosphatase 46 - Imaging and Cardiology Echo: report reviewed - EKG Interpretation EKG results cardiology: personally reviewed - VTE Documentation of Mechanical Device: Graduated compression elastic hosiery Consult Discharge Plan - Plan Referrals: Lokesh Cooper MD [Primary Care Provider] -
[2018-03-11 12:44] LABS: Hematocrit 39.7 % (35.3-44.9); Hemoglobin 13.6 g/dL (11.5-15.4)
[2018-03-11] MEDS: Acetaminophen 325 MG TABLET PO PRN (15:31)
[2018-03-11] MEDS: MORPHINE SUL Oral CONC 10 MG/0.5 ML ORAL.SYG SL PRN ×2 (15:53→21:12)
[2018-03-11 18:29] LABS: Hematocrit 37.9 % (35.3-44.9); Hemoglobin 13.2 g/dL (11.5-15.4)
[2018-03-11] MEDS: Budesonide/Formoterol 160/4.5 MDI IH SCH (20:33)
[2018-03-12 00:36] LABS: Hematocrit 35.7 % (35.3-44.9); Hemoglobin 11.9 g/dL (11.5-15.4)
[2018-03-12] MEDS ORDERED: 0.9 % Sodium Chloride 500 ML IVC ONE (01:11)
[2018-03-12] MEDS: Piperacillin/Tazobactam 3.375 GM in 0.9 % Sodium Chloride Mini Bag 100 ML IVPB SCH ×2 (01:24→13:17)
[2018-03-12 04:20] LABS: Basophils % 0.2 %; Lymphocytes % 5.2 %; Mean Corpuscular Volume 90.4 fL (83.0-100.0); Mean Platelet Volume 10.9 fL (9.4-12.4); Nucleated Red Blood Cells 0.1 /100 WBC (0)
[2018-03-12 04:22] LABS: Eosinophils # 0.1 K/mcL (0.0-0.6); Eosinophils % 0.5 %; Hematocrit 36.8 % (35.3-44.9); Hemoglobin 12.3 g/dL (11.5-15.4); Immature Granulocytes % 0.4 % (0-4); Immature Platelets 3.7 % (1.1-6.1); Mean Corpuscular HGB Conc 33.4 g/dL (31.6-35.5); Mean Corpuscular Hemoglobin 30.2 pg (28.0-33.3); Monocytes # 0.8 K/mcL (0.0-1.3); Monocytes % 4.1 %; Red Blood Count 4.07 M/mcL (3.82-4.97); Red Cell Distribution Width 17.5 % (11.5-14.5); Segmented Neutrophils % 89.6 %
[2018-03-12 04:25] LABS: Neutrophils # 16.7 K/mcL (1.6-8.9); Platelet Count 89 K/mcL (140-400)
[2018-03-12 04:28] LABS: Calcium 8.2 mg/dL (8.6-10.3); Potassium 5.4 mEq/L (3.5-5.1)
[2018-03-12] MEDS ORDERED: 0.9 % Sodium Chloride 500 ML ONE ×2 (05:45→10:24)
[2018-03-12] MEDS: Insulin LISPRO 300 UNITS/3 ML VIAL SQ SCH ×4 (05:51→23:06)
--- NOTE | 2018-03-12 07:16 | Electrocardiograph Report ---
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
[2018-03-12] MEDS: (Cyclosporine [Restasis] 1 DROP) OP SCH (07:30)
[2018-03-12] MEDS ORDERED: 0.9 % Sodium Chloride 1,000 ML IVC ONE (08:13)
[2018-03-12] MEDS: Furosemide 40 MG TABLET PO SCH (08:30)
[2018-03-12] MEDS: Loratadine 10 MG TABLET PO SCH (08:30)
[2018-03-12] MEDS: *HR* Amiodarone 200 MG TABLET PO SCH (08:30)
[2018-03-12] MEDS: Aspirin Enteric Coated 81 MG Tablet PO SCH (08:30)
[2018-03-12] MEDS: Fluticasone Propionate Nasal 50 MCG/SPRAY BOTTLE NS SCH (08:31)
[2018-03-12] MEDS ORDERED: Saliva Stimulant 100ml BOTTLE PO PRN (08:32)
--- NOTE | 2018-03-12 09:52 | Pulmonology Progress Note ---
<Cheyenne Minor M - Last Filed: 03/12/18 16:22> Date of Encounter: 03/12/18 Objective PUL Vital signs: Last Vital Signs Temp 98.3 F 03/12/18 12:09 Pulse 92 03/12/18 16:00 Resp 16 03/12/18 16:00 BP 103/59 03/12/18 16:00 Pulse Ox 98 03/12/18 16:00 Results - Laboratory Findings CBC and BMP: 03/12/18 10:00 03/12/18 03:59 PT/INR, D-dimer PT 19.7 Seconds (9.4-12.1) H 03/11/18 04:17 Abnormal lab findings: Abnormal lab results WBC 18.6 K/mcL (4.3-11.1) H 03/12/18 03:59 RDW 17.5 % (11.5-14.5) H 03/12/18 03:59 Plt Count 89 K/mcL (140-400) L 03/12/18 03:59 Neutrophils # 16.7 K/mcL (1.6-8.9) H 03/12/18 03:59 Nucleated RBCs/100 WBC 0.1 /100 WBC (0) H 03/12/18 03:59 PT 19.7 Seconds (9.4-12.1) H 03/11/18 04:17 Potassium 5.4 mEq/L (3.5-5.1) H 03/12/18 03:59 Chloride 109 mEq/L (98-107) H 03/12/18 03:59 Carbon Dioxide 21 mEq/L (23-29) L 03/12/18 03:59 BUN 55 mg/dL (8-23) H 03/12/18 03:59 Creatinine 3.15 mg/dL (0.60-1.20) H 03/12/18 03:59 Est GFR ( Amer) 17 (> 60) L 03/12/18 03:59 Est GFR (Non-Af Amer) 14 (> 60) L 03/12/18 03:59 POC Glucose 100 mg/dL (70-99) H 03/12/18 15:23 Calculated Osmolality 301 (280-300) H 03/12/18 03:59 Calcium 8.2 mg/dL (8.6-10.3) L 03/12/18 03:59 B-Natriuretic Peptide 597 pg/mL (Less than 100) H 03/10/18 06:30 Serum Total Protein 5.2 g/dL (6.4-8.9) L 03/11/18 04:17 Albumin 2.8 g/dL (3.5-5.7) L 03/11/18 04:17 Urine Protein 30 mg/dL (Neg-Trace) H 03/10/18 14:10 Urine Blood Small (Negative) H 03/10/18 14:10 Ur Leukocyte Esterase Small (Negative) H 03/10/18 14:10 Urine Microscopic RBC 5-15 per hpf (0-3) H 03/10/18 14:10 Urine Microscopic WBC 5-15 per hpf (0-3) H 03/10/18 14:10 Ur Squamous Epith Cells Many per lpf (None-Few) H 03/10/18 14:10 Ur Culture Indicated? NO. (NO) A 03/10/18 14:10 - Clinical Findings Intake & Output: Intake & Output 03/12/18 03/12/18 03/12/18 07:59 15:59 23:59 Intake Total 600 / 600 946.9 / 946.9 Output Total 75 / 75 10 / 10 Balance 525 / 525 936.9 / 936.9 Weight 93.9 kg Consult Discharge Plan - Plan Referrals: Lokesh Cooper MD [Primary Care Provider] - - Attending Attestation I examined this patient and my medical decision-making was reviewed with the Resident Physician. I agree with the documented findings, disposition and treatment plan as described except to the extent set forth below. Patient seen and examined. Labs, radiology, chart personally reviewed. Agree with resident's history and physical, assessment, plan with following comments: QUALITY CONTROL CHEMIST: Patient follows commands, Pulmonary: Acceptable oxygenation and ventilation and continue bronchodilators. Cardiovascular: Patient initially was on low-dose dopamine and after giving her fluid boluses she responded and were able to get her off dopamine. GI: Nutrition per dietary and GI prophylaxis per routine. I have discussed with the surgery team and abdominal examination was done. Concern about increase intra-abdominal pressure, however surgery does not believe there is abdominal compartment syndrome. Continue to monitor. Heme: DVT prophylaxis per routine. Continue monitoring H&H. ID: Continue antibiotics and plan to de-escalation Renal; urine out put and renal funtion reviewed. Patient with acute on chronic stage IV kidney disease and fluid was given and nephrology is being consulted. Endorcine: blood glucose is monitored Lines: all lines checked and no evidence of infections Skin: skin care to prevent pressure ulcers per nursing routine care <Gary Navarrete - Last Filed: 03/12/18 16:36> Date of Encounter: 03/12/18 Time of Encounter: 10:45 Assessment and Plan (1) Anemia Current Visit: Yes Status: Acute CT 03/11/18: postoperative mesenteric hemorrhage in RLQ/central lower abdomen along ARSEN - no IV contrast used. Hgb level stable at 12.3. S/P 4 units of PRBC tranfusion. - Continue to monitor H/H q6H. - Transfuse to keep hgb > 7. - Hold ASA. Qualifiers: Anemia type: other cause Other causes of anemia: acute posthemorrhagic Qualified Code(s): D62 - Acute posthemorrhagic anemia (2) Atrial fibrillation Current Visit: Yes Status: Chronic Chronic, maintain home meds. Qualifiers: Atrial fibrillation type: chronic Qualified Code(s): I48.2 - Chronic atrial fibrillation (3) Acute appendicitis Current Visit: Yes Status: Acute POD #2 s/p laparoscopic appendectomy. WBC count decreased from yesterday at 19.3 down to 18.6. Abdomen is tender b/l in lower region. There was an increas in abdominal pressure at 22. Given that the creatinine was also elevated, there was a concern for compartment syndrome v. intrabdominal HTN. However after evaluation from surgery, patient's symptoms seem inconsistent with compartment syndrome. CT scan was reviewed and seems there is mostly irrigation fluid in the abdominal cavity. On zosyn day #2. Patient afebrile. - Continue NPO. - Hold off on TPN for now. - Continue zosyn - Serial abdominal exams. Qualifiers: Acute appendicitis type: with localized peritonitis Qualified Code(s): K35.3 - Acute appendicitis with localized peritonitis (4) Sepsis Current Visit: No Status: Acute Leukocytosis of 18.6 and hypotensive BP of 74/37. Currently on DA. Good O2 sat on nasal cannula 2 L. Lactic acid within normal limits at 0.8. Patient to be given 250 IV fluid bolus challenges. On day 2 of zosyn. Qualifiers: Sepsis type: sepsis due to unspecified organism Qualified Code(s): A41.9 - Sepsis, unspecified organism (5) Acute on chronic renal failure Current Visit: No Status: Acute Creatinine level increased yesterday from 2.27 to 3.15. Baseline creatinine from 2.5-3.0. Hyperkalemic at 5.4. - Consult to nephrology placed. Qualifiers: Qualified Code(s): N17.9 - Acute kidney failure, unspecified; N18.9 - Chronic kidney disease, unspecified; N18.9 - Chronic kidney disease, unspecified (6) DVT prophylaxis Current Visit: No Status: Acute SCDs. Subjective Principal diagnosis: acute appendacitis Interval history: Patient denies any chest pain, shortness of breath, fever. She continues to admit to lower abdominal pain although she says it has improved since yesterday. Objective PUL Vital signs: Last Vital Signs Temp 98.3 F 03/12/18 07:41 Pulse 92 03/12/18 09:00 Resp 16 03/12/18 09:00 BP 93/62 03/12/18 09:00 Pulse Ox 100 03/12/18 09:00 General appearance: no acute distress Eyes: nonicteric ENT: oropharynx moist Neck: supple Effort: normal Auscultation: bilateral: clear Percussion: bilateral: not dull Tactile fremitus: bilateral: normal Cardiovascular: regular rate and rhythm Gastrointestinal: normoactive bowel sounds, non-distended, other (Abdominal incision over umbilicus intact with no signs of bleeding, pus, or drainage.) Integumentary: other (There is noted in left lower abdominal region.) Extremities: no cyanosis, no edema, no clubbing, pulses normal, no ischemia or petechiae Musculoskeletal: no deformities normal mental status Results - Laboratory Findings CBC and BMP: 03/12/18 16:00 03/12/18 03:59 PT/INR, D-dimer PT 19.7 Seconds (9.4-12.1) H 03/11/18 04:17 Abnormal lab findings: Abnormal lab results WBC 18.6 K/mcL (4.3-11.1) H 03/12/18 03:59 RDW 17.5 % (11.5-14.5) H 03/12/18 03:59 Plt Count 89 K/mcL (140-400) L 03/12/18 03:59 Neutrophils # 16.7 K/mcL (1.6-8.9) H 03/12/18 03:59 Nucleated RBCs/100 WBC 0.1 /100 WBC (0) H 03/12/18 03:59 PT 19.7 Seconds (9.4-12.1) H 03/11/18 04:17 Potassium 5.4 mEq/L (3.5-5.1) H 03/12/18 03:59 Chloride 109 mEq/L (98-107) H 03/12/18 03:59 Carbon Dioxide 21 mEq/L (23-29) L 03/12/18 03:59 BUN 55 mg/dL (8-23) H 03/12/18 03:59 Creatinine 3.15 mg/dL (0.60-1.20) H 03/12/18 03:59 Est GFR ( Amer) 17 (> 60) L 03/12/18 03:59 Est GFR (Non-Af Amer) 14 (> 60) L 03/12/18 03:59 Calculated Osmolality 301 (280-300) H 03/12/18 03:59 Calcium 8.2 mg/dL (8.6-10.3) L 03/12/18 03:59 B-Natriuretic Peptide 597 pg/mL (Less than 100) H 03/10/18 06:30 Serum Total Protein 5.2 g/dL (6.4-8.9) L 03/11/18 04:17 Albumin 2.8 g/dL (3.5-5.7) L 03/11/18 04:17 Urine Protein 30 mg/dL (Neg-Trace) H 03/10/18 14:10 Urine Blood Small (Negative) H 03/10/18 14:10 Ur Leukocyte Esterase Small (Negative) H 03/10/18 14:10 Urine Microscopic RBC 5-15 per hpf (0-3) H 03/10/18 14:10 Urine Microscopic WBC 5-15 per hpf (0-3) H 03/10/18 14:10 Ur Squamous Epith Cells Many per lpf (None-Few) H 03/10/18 14:10 Ur Culture Indicated? NO. (NO) A 03/10/18 14:10 - Clinical Findings Intake & Output: Intake & Output 03/11/18 03/12/18 03/12/18 23:59 07:59 15:59 Intake Total 175 / 175 500 / 500 354.9 / 354.9 Output Total 34 / 34 75 / 75 Balance 141 / 141 425 / 425 354.9 / 354.9 Weight 93.9 kg - VTE Documentation of Mechanical Device: Intermittent pneumatic compression device
[2018-03-12] MEDS: Budesonide/Formoterol 160/4.5 MDI IH SCH ×2 (09:59→19:59)
--- NOTE | 2018-03-12 10:26 | General Surgery Progress Note ---
<Jun Pierce - Last Filed: 03/12/18 15:44> Date of Encounter: 03/12/18 Time of Encounter: 07:40 - Assessment and Plan (2) Acute appendicitis Status: Acute POD #2 s/p laparoscopic appendectomy with Dr. Jimenez Became hypotensive and dyspnic and moved to the ICU - on Dopamine infusion CT 03/11/18: postoperative mesenteric hemorrhage in RLQ/central lower abdomen along ARSEN - no IV contrast used Pt does have anemia - now hgb stable at 12.3 s/p 4U RBCs yesterday morning Abdomen is tender as expected post-op, firm but not rigid without rebound Symptoms inconsistent with abdominal compartment syndrome at this time, abdominal pressure is less useful with an awake patient No acute need for surgical intervention at this time PLAN: NPO today - anticipate ability to start diet soon Do not think it is necessary to start TPN yet Pain and nausea control Serial abdominal exams and close monitoring of her symptoms Hypotension and IV fluids per primary team Renal management per nephrology Final recommendations pending Attending Attestation Qualifiers: Acute appendicitis type: with localized peritonitis Qualified Code(s): K35.3 - Acute appendicitis with localized peritonitis (3) Anemia Status: Acute Hgb stable at 12.3 - s/p 4 total U RBCs - management per primary team Qualifiers: Anemia type: other cause Other causes of anemia: acute posthemorrhagic Qualified Code(s): D62 - Acute posthemorrhagic anemia (4) Atrial fibrillation Status: Chronic Management per primary team Qualifiers: Atrial fibrillation type: chronic Qualified Code(s): I48.2 - Chronic atrial fibrillation (5) Chronic kidney disease, stage IV (severe) Status: Acute Management per nephrology (6) Hypotension Status: Acute Management per primary team Qualifiers: Hypotension type: unspecified hypotension type Qualified Code(s): I95.9 - Hypotension, unspecified Subjective Patient reports: no new complaints, feels better, still having pain, pain is less, flatus, bowel movement, afebrile Narrative: Pt states that her pain is mildly improved compared to yesterday. She is passing gas and having BMs. No N/V noted. Poor UOP. Objective Vital Signs - Last 8 Hours Temp Pulse Resp BP Pulse Ox 03/12/18 10:00 92 74/37 94 03/12/18 09:59 16 99 03/12/18 09:00 92 16 93/62 100 03/12/18 08:40 95 20 84/58 100 03/12/18 08:00 86 03/12/18 07:41 98.3 F 03/12/18 07:00 87 16 76/51 99 03/12/18 05:53 90 12 87/56 95 03/12/18 05:00 90 12 74/53 95 03/12/18 03:54 97.6 F 98 14 79/52 95 03/12/18 03:00 93 14 74/43 95 Intake and Output 03/11/18 03/12/18 03/12/18 23:59 07:59 15:59 Intake Total 175 / 175 500 / 500 354.9 / 354.9 Output Total 75 / 75 Balance 141 / 141 425 / 425 354.9 / 354.9 Intake: IV Fluids 100 / 100 500 / 500 354.9 / 354.9 0.9 % Sodium Chloride 1,000 ML 250 / 250 @ 250 mls/hr IVC .Q4H [facility] Rx#: [id number] 0.9 % Sodium Chloride 500 ML @ 500 / 500 999 mls/hr IVC .Q31M [facility] Rx#: [id number] DOPamine Premix 400mg/250mL 400 0 / 0 104.9 / 104.9 mg In 250 ml @ 2.5 MCG/KG/MIN 8.784 mls/hr IVC .Q24H [facility] Rx#: [id number] Zosyn 3.375 GM In 0.9 % Sodium 100 / 100 Chloride (Mini-Bag +) 100 ML @ 25 mls/hr IVPB Q12H [facility] Rx#: [id number] Oral 75 / 75 Output: Catheter 75 / 75 Other: Weight 93.9 kg Blood Glucose* 86 Patient Weight 03/12/18 23:59 Weight 93.9 kg - General physical appearance well developed, well nourished, no distress - Eyes normal ocular movement - Respiratory normal expansion, normal respiratory effort - Cardiovascular Cardiovascular exam: Present: irregular rhythm - Abdomen Abdomen: Present: bowel sounds present, distended (firm, but not rigid), tender (expected), guarding. Absent: rebound, rigid, peritoneal - Incision Incision: Present: clean and dry, intact. Absent: erythema, purulent - Integumentary no rash, no growths, other (ecchymosis near incision sites) - Neurologic CN 2-12 grossly intact, normal coordination - Labs 03/12/18 10:00 03/12/18 03:59 Diabetes panel 03/12/18 Range/Units 03:59 Sodium 138 (136-145) mEq/L Potassium 5.4 H (3.5-5.1) mEq/L Chloride 109 H (98-107) mEq/L Carbon Dioxide 21 L (23-29) mEq/L BUN 55 H (8-23) mg/dL Creatinine 3.15 H (0.60-1.20) mg/dL Glucose 100 (70-105) mg/dL Calcium 8.2 L (8.6-10.3) mg/dL Calcium panel 03/12/18 Range/Units 03:59 Calcium 8.2 L (8.6-10.3) mg/dL Pituitary panel 03/12/18 Range/Units 03:59 Sodium 138 (136-145) mEq/L Potassium 5.4 H (3.5-5.1) mEq/L Chloride 109 H (98-107) mEq/L Carbon Dioxide 21 L (23-29) mEq/L BUN 55 H (8-23) mg/dL Creatinine 3.15 H (0.60-1.20) mg/dL Glucose 100 (70-105) mg/dL Calcium 8.2 L (8.6-10.3) mg/dL Adrenal panel 03/12/18 Range/Units 03:59 Sodium 138 (136-145) mEq/L Potassium 5.4 H (3.5-5.1) mEq/L Chloride 109 H (98-107) mEq/L Carbon Dioxide 21 L (23-29) mEq/L BUN 55 H (8-23) mg/dL Creatinine 3.15 H (0.60-1.20) mg/dL Glucose 100 (70-105) mg/dL Calcium 8.2 L (8.6-10.3) mg/dL - VTE Documentation of Mechanical Device: Intermittent pneumatic compression device Consult Discharge Plan - Plan Instructions: Laparoscopic Appendectomy (DC) Additional Instructions: General Surgical Discharge Instructions 1. No pushing, pulling, or lifting greater than 15 lbs for 2 weeks (depending upon procedure). 2. You may shower beginning today, but no tub baths, soaking, or swimming for 2 weeks. 3. You may resume driving when you are off narcotics and are safe to react in a car. 4. You may take the as needed Percocet. Take narcotics as directed. Do not take more narcotics then directed and do not share your narcotics with any other person. Do not drink alcohol while on narcotics. 5. Take stool softeners (Colace) or a water based laxative (Miralax) while taking narcotics. You may hold for loose stools. 6. Report any fevers greater than 100.5F, increase abdominal discomfort, drainage that looks like pus, increased redness or pain at the surgical site, or any vomiting. 7. Report any pain in the calves, shortness of breath, or rapid heartbeat. 8. Follow-up in the office as directed. 9. If you were prescribed antibiotics, do not stop them without talking to your provider. Referrals: Lokesh Cooper MD [Primary Care Provider] - Ericka Breaux CNP [Advanced Practice Nurse] - 03/25/18 8:30 am Prescriptions: Amoxicillin/Clavulanate [Augmentin] 875 mg PO BIDWM 5 Days #10 tablet Budesonide/Formoterol 160/4.5 [Symbicort 160/4.5] 2 puff IH BIDR 30 Days #30 inhaler <Crystal Jimenez - Last Filed: 03/16/18 16:41> Date of Encounter: 03/12/18 - Assessment and Plan (1) Atrial fibrillation Status: Chronic Qualifiers: Atrial fibrillation type: chronic Qualified Code(s): I48.2 - Chronic atrial fibrillation (2) H/O prosthetic heart valve Status: Chronic (3) Pulmonary hypertension Status: Chronic (4) Right lower quadrant pain Status: Acute (5) Abnormal CT of the abdomen Status: Acute (6) Sepsis Status: Acute repeat CT scan of abdomen reviewed by myself, there is increased fluid within intra-abdominal cavity compared to admission but not significantly, does not account for sepsis presentation was transfused for what was likely erroneous lab result, TUCKER secondary to volume depletion/dehydration, will bolus and recommend start fluid resuscitation abdominal exam is not unexpected postoperatively, she does have more bruising at each port site compared to what is usual but she was still taking her aspirin until yesterday am. agree with antibiotics but intra-abdominal source of sepsis is unlikely herrera -strict I/O's. prn pain control would start diet when more hemodynamically stable Qualifiers: Sepsis type: sepsis due to unspecified organism Qualified Code(s): A41.9 - Sepsis, unspecified organism Subjective Patient reports: no new complaints, still having pain, flatus, bowel movement, afebrile Objective - General physical appearance well developed, no distress - Eyes normal ocular movement - ENT normal mucosa, normocephalic - Neck Neck exam: trachea midline - Respiratory normal expansion, clear to auscultation - Cardiovascular Cardiovascular exam: Present: irregular rhythm - Abdomen Abdomen: Present: bowel sounds present, soft, distended (minimally distended, mildly firm), tender (appropriate post op tenderness). Absent: guarding, rebound - Incision Incision: Present: clean and dry, intact (ecchymosis at each incision site) - Integumentary no rash, no growths - Neurologic normal coordination - Musculoskeletal normal posture - Psychiatric oriented to time, oriented to person, memory intact - Labs 03/15/18 04:05 03/15/18 04:05 - Attending Attestation I examined this patient and my medical decision-making was reviewed with the Resident Physician. I agree with the documented findings, disposition and treatment plan as described except to the extent set forth below.
[2018-03-12 10:50] LABS: Hematocrit 35.8 % (35.3-44.9)
[2018-03-12] MEDS ORDERED: Lidocaine -MPF 1% 5 ML AMPUL INFILT ONE (11:13)
[2018-03-12] MEDS: MORPHINE SUL Oral CONC 10 MG/0.5 ML ORAL.SYG SL PRN (11:45)
[2018-03-12 16:26] LABS: Hematocrit 33.5 % (35.3-44.9); Hemoglobin 11.1 g/dL (11.5-15.4)
[2018-03-12] MEDS: Acetaminophen 325 MG TABLET PO PRN (21:14)
[2018-03-12 21:31] LABS: Hematocrit 32.5 % (35.3-44.9); Hemoglobin 10.9 g/dL (11.5-15.4)
[2018-03-13] MEDS: Piperacillin/Tazobactam 3.375 GM in 0.9 % Sodium Chloride Mini Bag 100 ML IVPB SCH ×2 (03:42→15:23)
[2018-03-13 04:08] LABS: Basophils % 0.1 %; Eosinophils # 0.1 K/mcL (0.0-0.6); Eosinophils % 1.2 %; Hematocrit 30.3 % (35.3-44.9); Hemoglobin 9.9 g/dL (11.5-15.4); Immature Granulocytes % 0.6 % (0-4); Lymphocytes # 0.7 K/mcL (0.6-4.6); Lymphocytes % 7.7 %; Mean Corpuscular HGB Conc 32.7 g/dL (31.6-35.5); Mean Corpuscular Hemoglobin 30.3 pg (28.0-33.3); Mean Corpuscular Volume 92.7 fL (83.0-100.0); Mean Platelet Volume 10.6 fL (9.4-12.4); Monocytes # 0.3 K/mcL (0.0-1.3); Monocytes % 3.3 %; Neutrophils # 7.4 K/mcL (1.6-8.9); Red Blood Count 3.27 M/mcL (3.82-4.97); Red Cell Distribution Width 17.2 % (11.5-14.5); Segmented Neutrophils % 87.1 %
[2018-03-13 04:10] LABS: Platelet Count 64 K/mcL (140-400)
[2018-03-13 04:18] LABS: Potassium 5.4 mEq/L (3.5-5.1)
[2018-03-13] MEDS: Insulin LISPRO 300 UNITS/3 ML VIAL SQ SCH ×3 (04:53→19:48)
--- NOTE | 2018-03-13 07:26 | Pulmonology Progress Note ---
<PamelaJohny W - Last Filed: 03/13/18 09:47> Date of Encounter: 03/13/18 Objective PUL Vital signs: Last Vital Signs Temp 98.3 F 03/13/18 07:56 Pulse 90 03/13/18 09:00 Resp 16 03/13/18 09:00 BP 122/58 03/13/18 09:00 Pulse Ox 100 03/13/18 09:00 Results - Laboratory Findings CBC and BMP: 03/13/18 03:15 03/13/18 03:15 PT/INR, D-dimer PT 19.7 Seconds (9.4-12.1) H 03/11/18 04:17 Abnormal lab findings: Abnormal lab results RBC 3.27 M/mcL (3.82-4.97) L 03/13/18 03:15 Hgb 9.9 g/dL (11.5-15.4) L 03/13/18 03:15 Hct 30.3 % (35.3-44.9) L 03/13/18 03:15 RDW 17.2 % (11.5-14.5) H 03/13/18 03:15 Plt Count 64 K/mcL (140-400) L 03/13/18 03:15 Nucleated RBCs/100 WBC 0.1 /100 WBC (0) H 03/12/18 03:59 PT 19.7 Seconds (9.4-12.1) H 03/11/18 04:17 Potassium 5.4 mEq/L (3.5-5.1) H 03/13/18 03:15 Chloride 112 mEq/L (98-107) H 03/13/18 03:15 Carbon Dioxide 20 mEq/L (23-29) L 03/13/18 03:15 BUN 58 mg/dL (8-23) H 03/13/18 03:15 Creatinine 3.21 mg/dL (0.60-1.20) H 03/13/18 03:15 Est GFR ( Amer) 17 (> 60) L 03/13/18 03:15 Est GFR (Non-Af Amer) 14 (> 60) L 03/13/18 03:15 Calculated Osmolality 308 (280-300) H 03/13/18 03:15 Calcium 8.0 mg/dL (8.6-10.3) L 03/13/18 03:15 B-Natriuretic Peptide 597 pg/mL (Less than 100) H 03/10/18 06:30 Serum Total Protein 5.2 g/dL (6.4-8.9) L 03/11/18 04:17 Albumin 2.8 g/dL (3.5-5.7) L 03/11/18 04:17 Urine Protein 30 mg/dL (Neg-Trace) H 03/10/18 14:10 Urine Blood Small (Negative) H 03/10/18 14:10 Ur Leukocyte Esterase Small (Negative) H 03/10/18 14:10 Urine Microscopic RBC 5-15 per hpf (0-3) H 03/10/18 14:10 Urine Microscopic WBC 5-15 per hpf (0-3) H 03/10/18 14:10 Ur Squamous Epith Cells Many per lpf (None-Few) H 03/10/18 14:10 Ur Culture Indicated? NO. (NO) A 03/10/18 14:10 - Clinical Findings Intake & Output: Intake & Output 03/12/18 03/13/18 03/13/18 23:59 07:59 15:59 Intake Total 100 / 100 100 / 100 Output Total 227 / 227 275 / 275 Balance -127 / -127 -175 / -175 Weight 96.3 kg Consult Discharge Plan - Plan Referrals: Lokesh Cooper MD [Primary Care Provider] - - Attending Attestation I examined this patient and my medical decision-making was reviewed with the Resident Physician. I agree with the documented findings, disposition and treatment plan as described except to the extent set forth below. We independently had [id number] contact with the patient Patient seen and examined at bedside Labs, radiology, chart personally reviewed. Management was reviewed during multidisciplinary critical care rounds. Impression/Recs: Acute Hypoxic Respiratory Failure s/t Hydrostatic Pulmonary Edema Acute Blood Loss Anemia Sepsis s/t Acute Appendicitis s/p LAP/APPY TUCKER on CKD -Stable on nasal cannula wean as tolerated encourage incentive spirometry out of bed to chair and ambulation as tolerated -Transfusion goal greater than 7 continue to trend CBC -General surgery monitoring -Continue antibiotics will likely need 10-14 day course de-escalation to oral antibiotics once taking by mouth -Nephrology recommendations appreciated Pulmonary will sign off please reconsult with any questions <Gary Navarrete - Last Filed: 03/13/18 11:29> Date of Encounter: 03/13/18 Time of Encounter: 08:30 Assessment and Plan (1) Anemia Current Visit: Yes Status: Acute CT 03/11/18: postoperative mesenteric hemorrhage in RLQ/central lower abdomen along ARSEN - no IV contrast used. Hgb level stable at 12.3. S/P 4 units of PRBC tranfusion. Hemoglobin decreased from 10.9 to 9.9 which seems to likely be a dilution effect from IVF. - Continue to monitor H/H. - Transfuse to keep hgb > 7. - Hold ASA. Patient to be transferred out of the ICU by surgery team to telemetry floor. Pulmonology will now sign off on this patient. Qualifiers: Anemia type: other cause Other causes of anemia: acute posthemorrhagic Qualified Code(s): D62 - Acute posthemorrhagic anemia (2) Atrial fibrillation Current Visit: Yes Status: Chronic Chronic, maintain home meds. Qualifiers: Atrial fibrillation type: chronic Qualified Code(s): I48.2 - Chronic atrial fibrillation (3) Acute appendicitis Current Visit: Yes Status: Acute POD #3 s/p laparoscopic appendectomy. White blood cell count has normalized from 18.6 down to 8.5. Abdomen is tender b/l in lower region although has improved from yesterday. No guarding or rigidity on exam. Symptoms inconsistent with compartment syndrome. Blood pressure stable. Patient afebrile. On day 3 of Zosyn. - Advance to clear liquid diet. - Continue zosyn - Serial abdominal exams. Qualifiers: Acute appendicitis type: with localized peritonitis Qualified Code(s): K35.3 - Acute appendicitis with localized peritonitis (4) Sepsis Current Visit: No Status: Acute Leukocytosis is improved from 18.6 down to 8.5 from yesterday. Dopamine was stopped. Stable blood pressure. Good O2 sat on nasal cannula 2 L. On day 3 of zosyn. - Continue antibiotics. Qualifiers: Sepsis type: sepsis due to unspecified organism Qualified Code(s): A41.9 - Sepsis, unspecified organism (5) Acute on chronic renal failure Current Visit: No Status: Acute Creatinine level increased yesterday from 3.15 to 3.21. Baseline creatinine from 2.5-3.0. Hyperkalemic at 5.4. Nephrology consultation. - Per nephrology patient's creatinine starting to plateau. Urine output remains to be low. Echocardiogram shows moderate to severe pulmonary hypertension. This signifies that patient might require higher preload to maintain cardiac output and as a result she was started on IV fluids in addition to a 1 time dose of Lasix to stimulate urine output. Hemodialysis not indicated at this point. Note: PICC line was inserted on patient yesterday. Decision was place was brought to attention of nephrology for which they were okay with. Qualifiers: Acute renal failure type: unspecified Chronic kidney disease stage: stage 4 (severe) Qualified Code(s): N17.9 - Acute kidney failure, unspecified; N18.4 - Chronic kidney disease, stage 4 (severe) (6) DVT prophylaxis Current Visit: No Status: Acute SCDs. Subjective Principal diagnosis: acute appendacitis Interval history: Patient denies any chest pain, shortness of breath, nausea, or vomiting. Patient unsure whether she has a fever or not but admits to chills. Admits to right lower quadrant abdominal pain which she says has improved from yesterday. Objective PUL Vital signs: Last Vital Signs Temp 98.6 F 03/13/18 04:00 Pulse 89 03/13/18 06:00 Resp 12 03/13/18 06:00 BP 103/52 03/13/18 06:00 Pulse Ox 99 03/13/18 06:00 General appearance: no acute distress Eyes: nonicteric ENT: oropharynx moist Neck: supple Effort: normal Auscultation: bilateral: clear Percussion: bilateral: not dull Tactile fremitus: bilateral: normal Cardiovascular: regular rate and rhythm Gastrointestinal: normoactive bowel sounds, soft, non-distended Integumentary: normal Extremities: no cyanosis, no clubbing, pulses normal, no ischemia or petechiae, edema (+1 bilateral pedal pitting edema) Musculoskeletal: no deformities normal mental status mood appropriate, affect normal Results - Laboratory Findings CBC and BMP: 03/13/18 03:15 03/13/18 03:15 PT/INR, D-dimer PT 19.7 Seconds (9.4-12.1) H 03/11/18 04:17 Abnormal lab findings: Abnormal lab results RBC 3.27 M/mcL (3.82-4.97) L 03/13/18 03:15 Hgb 9.9 g/dL (11.5-15.4) L 03/13/18 03:15 Hct 30.3 % (35.3-44.9) L 03/13/18 03:15 RDW 17.2 % (11.5-14.5) H 03/13/18 03:15 Plt Count 64 K/mcL (140-400) L 03/13/18 03:15 Nucleated RBCs/100 WBC 0.1 /100 WBC (0) H 03/12/18 03:59 PT 19.7 Seconds (9.4-12.1) H 03/11/18 04:17 Potassium 5.4 mEq/L (3.5-5.1) H 03/13/18 03:15 Chloride 112 mEq/L (98-107) H 03/13/18 03:15 Carbon Dioxide 20 mEq/L (23-29) L 03/13/18 03:15 BUN 58 mg/dL (8-23) H 03/13/18 03:15 Creatinine 3.21 mg/dL (0.60-1.20) H 03/13/18 03:15 Est GFR ( Amer) 17 (> 60) L 03/13/18 03:15 Est GFR (Non-Af Amer) 14 (> 60) L 03/13/18 03:15 Calculated Osmolality 308 (280-300) H 03/13/18 03:15 Calcium 8.0 mg/dL (8.6-10.3) L 03/13/18 03:15 B-Natriuretic Peptide 597 pg/mL (Less than 100) H 03/10/18 06:30 Serum Total Protein 5.2 g/dL (6.4-8.9) L 03/11/18 04:17 Albumin 2.8 g/dL (3.5-5.7) L 03/11/18 04:17 Urine Protein 30 mg/dL (Neg-Trace) H 03/10/18 14:10 Urine Blood Small (Negative) H 03/10/18 14:10 Ur Leukocyte Esterase Small (Negative) H 03/10/18 14:10 Urine Microscopic RBC 5-15 per hpf (0-3) H 03/10/18 14:10 Urine Microscopic WBC 5-15 per hpf (0-3) H 03/10/18 14:10 Ur Squamous Epith Cells Many per lpf (None-Few) H 03/10/18 14:10 Ur Culture Indicated? NO. (NO) A 03/10/18 14:10 - Clinical Findings Intake & Output: Intake & Output 03/12/18 03/12/18 03/13/18 15:59 23:59 07:59 Intake Total 946.9 / 946.9 100 / 100 Output Total 227 / 227 125 / 125 Balance 936.9 / 936.9 -127 / -127 -125 / -125 Weight 96.3 kg - VTE Documentation of Mechanical Device: Intermittent pneumatic compression device
--- NOTE | 2018-03-13 07:59 | Nephrology Consult Note ---
Date of Encounter: 03/13/18 Time of Encounter: 07:57 Assessment and Plan (1) Acute kidney failure, unspecified Current Visit: Yes Status: Acute The patient has a clinical picture of acute kidney injury superimposed on stage IV chronic kidney disease in the setting of postoperative hemorrhage following a laparoscopic appendectomy. Patient's serum creatinine may be starting to plateau. Urine output does remain low. Echocardiogram shows a finding of moderate to severe pulmonary hypertension. She may require a higher preload to help maintain cardiac output. For that reason she may benefit from some maintenance IV fluids. She also may benefit from 1 dose of Lasix to try and stimulate her urine output. Potassium is mildly elevated. Acid base status appears to be satisfactory. At this point time I do not believe the patient needs urgent dialysis. Certainly if her renal function should worsen she may require dialysis in the near future. Qualifiers: Acute renal failure type: unspecified Qualified Code(s): N17.9 - Acute kidney failure, unspecified (2) Chronic kidney disease, stage IV (severe) Current Visit: Yes Status: Acute History of Present Illness - History of Present Illness This is a 72-year-old female is followed as an outpatient for stage IV chronic kidney disease. Baseline creatinine is 1.8-2.3. Patient was measured on March 09 with symptoms of acute appendicitis. She underwent an appendectomy on March 10. Postoperative period was complicated by postoperative hemorrhage in hypotension requiring transfer to the intensive care unit on March 11. She did receive several units of packed red blood cells and did require vasopressors for blood pressure support. Her serum creatinine went from 2.27 up to 3.15 intimidates up to 3.21. Urine output yesterday was about 312 mL. Patient is now off vasopressors. Blood pressure is 103/52. Hemoglobin is 9.9. Patient's main complaint is of some postoperative pain. She denies any shortness of breath or chest pain. She did have a preoperative cardiology evaluation. Echocardiogram showed left ventricular ejection fraction of 60% and moderate to severe pulmonary hypertension. 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 Past Med Surg Social Fam HX - Past Medical History Medical history: arthritis, asthma, CHF, COPD, GERD, hyperlipidemia, hypertension, osteoporosis, renal disease, venous stasis, valvular heart disease , other Additional medical history: blind Psychiatric history: anxiety, depression - Past Surgical History Surgical History: cataract, cholecystectomy, heart valve replacement, herniorrhaphy, hysterectomy, knee replacement, orthopedic, other, sinus surgery , other Additional surgical history: lung surgery - right pleurodesis secondary to pleural effusions after cardiac surgery. "Ross" heart procedure- 1994 [facility] - Social History Smoking Status: Never smoker Smokeless Tobacco Status: No Alcohol use: none Drug use: none - Family History Father Family Member Ethnicity: Non- Living Status: Hx Family Cardiac Disorders: Yes (HD, Pig valve, HD) Hx Family Cancer: Yes (Cancer on lip) Hx Family GI Disorders: Yes (CKD) Hx Family Endocrine Disorder: Yes (Gallstones) Sister Family Member Ethnicity: Non- Living Status: Hx Family Endocrine Disorder: Yes (DM) Mother Living Status: Hx Family Cardiac Disorders: Yes (HD, Anemia) Medications and Allergies Cyclosporine [Restasis] 1 drop BOTH EYES BID 04/30/15 [History] Isosorbide MONOnitrate [Isosorbide Mononitrate ER] 60 mg PO DAILY 04/30/15 [ History] Potassium Chloride 20 meq PO DAILY 06/19/16 [History] Calcitriol [Rocaltrol] 0.25 mcg PO DAILY 03/20/17 [History] Fluticasone/Vilanterol [Breo Ellipta 100-25 Mcg INH] 1 each IH DAILY 07/20/17 [ History] Loratadine [Claritin] 10 mg PO DAILY 07/20/17 [History] Nystatin POWDER [Nystop] 1 appl TP BID 07/20/17 [History] Albuterol Sulfate [Albuterol Inhaler] 2 puff IH Q4HR PRN 08/27/17 [History] Atorvastatin Calcium [Lipitor] 20 mg PO HS 10/06/17 [History] Esomeprazole Magnesium [Nexium] 40 mg PO DAILY 10/06/17 [History] Aspirin Enteric Coated [Aspirin EC] 81 mg PO DAILY tablet. 11/02/17 [Rx] Amiodarone [Cordarone] 200 mg PO DAILY 11/28/17 [History] Docusate [Colace] 100 mg PO BID PRN capsule 12/02/17 [Rx] Fluticasone Propionate Nasal [Flonase] 50 mcg NS DAILY bottle 12/02/17 [Rx] Ipratropium/Albuterol Neb [Duoneb] 3 ml IH [id number] PRN 30 Days inhsol 12/02/17 [Rx] Metoprolol [Lopressor] 50 mg PO BID tablet 12/02/17 [Rx] Acetaminophen [Tylenol] 650 mg PO Q4HR PRN 02/11/18 [History] GuaiFENesin Liq [Robitussin Liq] 200 mg PO Q4HR PRN 02/11/18 [History] Furosemide [Lasix] 40 mg PO DAILY 03/09/18 [History] Quetiapine Fumarate [Seroquel] 50 mg PO HS 03/09/18 [History] 3 Allergy/AdvReac Type Severity Reaction Status Date / Time ciprofloxacin [From Cipro] Allergy Hives Verified 02/11/18 14:06 meperidine [From Demerol] AdvReac Vomiting Verified 02/11/18 14:06 Review of Systems Constitutional: as per HPI, weakness Eyes: bilateral: blurred vision (patient denies), diplopia (patient denies) Nose, mouth and throat: no dizziness, no headache(s) Cardiovascular: edema, no chest pain, no palpitations Respiratory: dyspnea Gastrointestinal: abdominal pain Musculoskeletal: no muscle weakness, no numbness Integumentary: no hirsutism, no striae Neurological: as per HPI Psychiatric: no depression, no difficulty concentrating Endocrine: as per HPI Hematologic/Lymphatic: no easy bruising, no lymphadenopathy Exam - Vital Signs Vital signs: Initial Vital Signs Temp Pulse Resp BP Pulse Ox 98.9 F 84 16 141/98 100 03/09/18 17:08 03/09/18 17:08 03/09/18 17:08 03/09/18 17:08 03/09/18 17:08 Vital Signs - Last 8 Hours Temp Pulse Resp BP Pulse Ox 03/13/18 07:00 88 16 124/59 100 03/13/18 06:00 89 12 103/52 99 03/13/18 05:00 89 12 105/50 99 03/13/18 04:00 98.6 F 86 12 119/57 99 03/13/18 03:00 86 12 114/55 99 03/13/18 02:00 84 16 104/48 99 03/13/18 01:00 96 16 97/53 99 03/12/18 23:59 101 16 93/51 99 Intake and Output 03/12/18 03/12/18 03/13/18 15:59 23:59 07:59 Intake Total 946.9 / 946.9 100 / 100 Output Total 227 / 227 275 / 275 Balance 936.9 / 936.9 -127 / -127 -275 / -275 Intake: IV Fluids 725.9 / 725.9 100 / 100 0.9 % Sodium Chloride 1,000 ML 500 / 500 @ 250 mls/hr IVC .Q4H ONE Rx#: [id number] DOPamine Premix 400mg/250mL 400 225.9 / 225.9 mg In 250 ml @ 2.5 MCG/KG/MIN 8.784 mls/hr IVC .Q24H [facility] Rx#: [id number] Zosyn 3.375 GM In 0.9 % Sodium 100 / 100 Chloride (Mini-Bag +) 100 ML @ 25 mls/hr IVPB Q12H [facility] Rx#: [id number] Oral 0 / 0 0 / 0 Blood Product 221 / 221 Platelet Pheresis Lp Irr 2nd 221 / 221 Unit [id number] Output: Catheter 227 / 227 275 / 275 Urethral (Parks) 150 / 150 Other: Weight 96.3 kg Blood Glucose* 78 82 - General Appearance Exam: The patient is alert and oriented. She is no acute distress. She is on nasal cannula oxygen and resting comfortably. Blood pressure is 103/52. Lungs somewhat diminished breath sounds otherwise clear. Heart regular rate and rhythm with a 2/6 ejection murmur. Abdomen is tender. There is minimal lower extremity swelling. Results - Lab Results 03/13/18 03:15 03/13/18 03:15 Most recent lab results Calcium 8.0 mg/dL (8.6-10.3) L 03/13/18 03:15 Urine Sodium 97.5 mEq/L 03/12/18 08:45 Consult Discharge Plan - Plan Referrals: Lokesh Cooper MD [Primary Care Provider] -
[2018-03-13] MEDS ORDERED: Furosemide 40 MG/4 ML VIAL IVP ONE (08:04)
[2018-03-13] MEDS ORDERED: 0.9 % Sodium Chloride 1,000 ML IVC SCH (08:15)
[2018-03-13] MEDS: Loratadine 10 MG TABLET PO SCH (09:24)
[2018-03-13] MEDS: *HR* Amiodarone 200 MG TABLET PO SCH (09:24)
[2018-03-13] MEDS: Fluticasone Propionate Nasal 50 MCG/SPRAY BOTTLE NS SCH (09:25)
[2018-03-13] MEDS: Budesonide/Formoterol 160/4.5 MDI IH SCH ×2 (09:47→19:53)
[2018-03-13] MEDS ORDERED: Dextrose Gel 15 GM/37.5 ML TUBE PO PRN ×2 (10:28)
[2018-03-13] MEDS ORDERED: Saliva Stimulant 100ml BOTTLE PO PRN (10:28)
[2018-03-13] MEDS ORDERED: MORPHINE SUL Oral CONC 10 MG/0.5 ML ORAL.SYG SL PRN (10:28)
[2018-03-13] MEDS ORDERED: Artificial Tears SOLN 15 ML BOTTLE OP PRN (10:28)
[2018-03-13] MEDS ORDERED: *HR* Dextrose 50 % in Water (Syg) 50 ML SYRINGE IVP PRN (10:28)
[2018-03-13] MEDS ORDERED: D5% in Water 1,000 ML IVC PRN (10:28)
[2018-03-13] MEDS ORDERED: GuaiFENesin Liq 200 MG/10 ML UDC PO PRN (10:28)
[2018-03-13] MEDS ORDERED: Ipratropium/Albuterol Neb 3 ML IH PRN (10:28)
--- NOTE | 2018-03-13 11:33 | General Surgery Progress Note ---
<Jun Pierce - Last Filed: 03/13/18 11:31> Date of Encounter: 03/13/18 Time of Encounter: 07:30 - Assessment and Plan (1) Sepsis Current Visit: Yes Status: Acute Sepsis of undetermined origin Appendicitis unlikely the cause with no rupture or abscess formation Leukocytosis improving. Improving clinically No longer hypotensive. No longer on pressors Continue antibiotics Qualifiers: Sepsis type: sepsis due to unspecified organism Qualified Code(s): A41.9 - Sepsis, unspecified organism (2) Acute appendicitis Current Visit: Yes Status: Acute POD #3 s/p laparoscopic appendectomy with Dr. Jimenez CT 03/11/18: postoperative mesenteric hemorrhage/fluid in RLQ/central lower abdomen along ARSEN - no IV contrast used, Likely post-op fluid Pt does have anemia - hgb 9.9 - transfuse to maintain > 7 Abdomen is tender as expected post-op, softer and less distended than yesterday No acute need for surgical intervention at this time PLAN: Advance to liquid diet - advance as tolerated Pain and nausea control Serial abdominal exams Renal management per nephrology AM labs Pt may be transferred to with telemetry Qualifiers: Acute appendicitis type: with localized peritonitis Qualified Code(s): K35.3 - Acute appendicitis with localized peritonitis (3) Hypotension Current Visit: Yes Status: Acute Management per primary team No longer requiring pressor support Qualifiers: Hypotension type: unspecified hypotension type Qualified Code(s): I95.9 - Hypotension, unspecified (4) Anemia Current Visit: Yes Status: Acute Hgb 9.9 - s/p 4 total U RBCs - transfuse to maintain > 7 Qualifiers: Anemia type: other cause Other causes of anemia: acute posthemorrhagic Qualified Code(s): D62 - Acute posthemorrhagic anemia (5) Atrial fibrillation Current Visit: Yes Status: Chronic Regular now. Management per primary team Qualifiers: Atrial fibrillation type: chronic Qualified Code(s): I48.2 - Chronic atrial fibrillation (6) Chronic kidney disease, stage IV (severe) Current Visit: Yes Status: Acute Management per nephrology Subjective Patient reports: no new complaints, feels better, still having pain, pain is less, flatus Narrative: Pt reports some abdominal tenderness, but no distention. States her abdomen feels better than yesterday. No N/V. No BM for a couple of days. Low grade temp to 99.9 overnight. Objective Vital Signs - Last 8 Hours Temp Pulse Resp BP Pulse Ox 03/13/18 09:47 16 100 03/13/18 09:00 90 16 122/58 100 03/13/18 07:56 98.3 F 88 16 121/58 100 03/13/18 07:00 88 16 124/59 100 03/13/18 06:00 89 12 103/52 99 03/13/18 05:00 89 12 105/50 99 03/13/18 04:00 98.6 F 86 12 119/57 99 Intake and Output 03/12/18 03/13/18 03/13/18 23:59 07:59 15:59 Intake Total 100 / 100 100 / 100 Output Total 227 / 227 275 / 275 Balance -127 / -127 -175 / -175 Intake: IV Fluids 100 / 100 100 / 100 Zosyn 3.375 GM In 0.9 % Sodium 100 / 100 100 / 100 Chloride (Mini-Bag +) 100 ML @ 25 mls/hr IVPB Q12H [facility] Rx#: [id number] Oral 0 / 0 Output: Catheter 227 / 227 275 / 275 Urethral (Parks) 150 / 150 Other: Weight 96.3 kg Blood Glucose* 82 - General physical appearance no distress - Respiratory normal expansion, normal respiratory effort, clear to auscultation - Cardiovascular Cardiovascular exam: Present: RRR - Abdomen Abdomen: Present: bowel sounds present, soft, tender (appropriately). Absent: distended - Integumentary no rash, no abnormal pigmentation, other (no cyanosis) - Neurologic CN 2-12 grossly intact, normal coordination - Psychiatric oriented to time, oriented to person, oriented to place, speech is normal, memory intact - Labs 03/13/18 03:15 03/13/18 03:15 Diabetes panel 03/13/18 Range/Units 03:15 Sodium 141 (136-145) mEq/L Potassium 5.4 H (3.5-5.1) mEq/L Chloride 112 H (98-107) mEq/L Carbon Dioxide 20 L (23-29) mEq/L BUN 58 H (8-23) mg/dL Creatinine 3.21 H (0.60-1.20) mg/dL Glucose 89 (70-105) mg/dL Calcium 8.0 L (8.6-10.3) mg/dL Calcium panel 03/13/18 Range/Units 03:15 Calcium 8.0 L (8.6-10.3) mg/dL Pituitary panel 03/13/18 Range/Units 03:15 Sodium 141 (136-145) mEq/L Potassium 5.4 H (3.5-5.1) mEq/L Chloride 112 H (98-107) mEq/L Carbon Dioxide 20 L (23-29) mEq/L BUN 58 H (8-23) mg/dL Creatinine 3.21 H (0.60-1.20) mg/dL Glucose 89 (70-105) mg/dL Calcium 8.0 L (8.6-10.3) mg/dL Adrenal panel 03/13/18 Range/Units 03:15 Sodium 141 (136-145) mEq/L Potassium 5.4 H (3.5-5.1) mEq/L Chloride 112 H (98-107) mEq/L Carbon Dioxide 20 L (23-29) mEq/L BUN 58 H (8-23) mg/dL Creatinine 3.21 H (0.60-1.20) mg/dL Glucose 89 (70-105) mg/dL Calcium 8.0 L (8.6-10.3) mg/dL - VTE Documentation of Mechanical Device: Intermittent pneumatic compression device Consult Discharge Plan - Plan Referrals: Lokesh Cooper MD [Primary Care Provider] - <Chapito Calderon - Last Filed: 03/13/18 12:24> Date of Encounter: 03/13/18 Objective Vital Signs - Last 8 Hours Temp Pulse Resp BP Pulse Ox 03/13/18 12:00 98.0 F 90 16 120/95 100 03/13/18 09:47 16 100 03/13/18 09:00 90 16 122/58 100 03/13/18 07:56 98.3 F 88 16 121/58 100 03/13/18 07:00 88 16 124/59 100 03/13/18 06:00 89 12 103/52 99 03/13/18 05:00 89 12 105/50 99 Intake and Output 03/12/18 03/13/18 03/13/18 23:59 07:59 15:59 Intake Total 100 / 100 100 / 100 120 / 120 Output Total 227 / 227 275 / 275 525 / 525 Balance -127 / -127 -175 / -175 -405 / -405 Intake: IV Fluids 100 / 100 100 / 100 Zosyn 3.375 GM In 0.9 % Sodium 100 / 100 100 / 100 Chloride (Mini-Bag +) 100 ML @ 25 mls/hr IVPB Q12H [facility] Rx#: [id number] Oral 0 / 0 120 / 120 Output: Catheter 227 / 227 275 / 275 525 / 525 Urethral (Parks) 150 / 150 Other: Weight 96.3 kg Blood Glucose* 82 67 - Labs 03/13/18 03:15 03/13/18 03:15 Diabetes panel 03/13/18 Range/Units 03:15 Sodium 141 (136-145) mEq/L Potassium 5.4 H (3.5-5.1) mEq/L Chloride 112 H (98-107) mEq/L Carbon Dioxide 20 L (23-29) mEq/L BUN 58 H (8-23) mg/dL Creatinine 3.21 H (0.60-1.20) mg/dL Glucose 89 (70-105) mg/dL Calcium 8.0 L (8.6-10.3) mg/dL Calcium panel 03/13/18 Range/Units 03:15 Calcium 8.0 L (8.6-10.3) mg/dL Pituitary panel 03/13/18 Range/Units 03:15 Sodium 141 (136-145) mEq/L Potassium 5.4 H (3.5-5.1) mEq/L Chloride 112 H (98-107) mEq/L Carbon Dioxide 20 L (23-29) mEq/L BUN 58 H (8-23) mg/dL Creatinine 3.21 H (0.60-1.20) mg/dL Glucose 89 (70-105) mg/dL Calcium 8.0 L (8.6-10.3) mg/dL Adrenal panel 03/13/18 Range/Units 03:15 Sodium 141 (136-145) mEq/L Potassium 5.4 H (3.5-5.1) mEq/L Chloride 112 H (98-107) mEq/L Carbon Dioxide 20 L (23-29) mEq/L BUN 58 H (8-23) mg/dL Creatinine 3.21 H (0.60-1.20) mg/dL Glucose 89 (70-105) mg/dL Calcium 8.0 L (8.6-10.3) mg/dL - Attending Attestation I examined this patient and my medical decision-making was reviewed with the Resident Physician. I agree with the documented findings, disposition and treatment plan as described except to the extent set forth below. The patient is seen and evaluated on morning rounds with resident. She is awake and alert. Complaining of less abdominal pain compared to yesterday. There is no guarding and no rebound. She has normal bowel sounds. Blood pressure has markedly improved. She has increasing urinary output with IV fluid and Lasix. Her BUN and creatinine are still elevated. We will continue with hydration support. We can start her on clear liquids. She can be transferred out of the intensive care unit. Thanks to nephrology for followed closely Chapito Calderon MD FACS
[2018-03-13] MEDS: 0.9 % Sodium Chloride 1,000 ML IVC SCH (15:23)
[2018-03-13] MEDS: Acetaminophen 325 MG TABLET PO PRN (19:49)
[2018-03-14] MEDS: Insulin LISPRO 300 UNITS/3 ML VIAL SQ SCH ×2 (00:26→06:32)
[2018-03-14] MEDS: Piperacillin/Tazobactam 3.375 GM in 0.9 % Sodium Chloride Mini Bag 100 ML IVPB SCH ×2 (01:55→13:14)
[2018-03-14] MEDS: 0.9 % Sodium Chloride 1,000 ML IVC SCH ×2 (02:00→15:09)
[2018-03-14 04:25] LABS: Eosinophils # 0.1 K/mcL (0.0-0.6); Eosinophils % 1.8 %; Immature Granulocytes % 0.6 % (0-4); Lymphocytes # 0.5 K/mcL (0.6-4.6); Mean Corpuscular HGB Conc 31.5 g/dL (31.6-35.5); Mean Corpuscular Hemoglobin 29.7 pg (28.0-33.3); Mean Corpuscular Volume 94.2 fL (83.0-100.0); Mean Platelet Volume 10.6 fL (9.4-12.4); Monocytes # 0.3 K/mcL (0.0-1.3); Monocytes % 3.8 %; Neutrophils # 5.7 K/mcL (1.6-8.9); Nucleated Red Blood Cells 0.3 /100 WBC (0); Red Blood Count 2.76 M/mcL (3.82-4.97); Red Cell Distribution Width 17.3 % (11.5-14.5); Segmented Neutrophils % 86.8 %
[2018-03-14 04:26] LABS: Hemoglobin 8.2 g/dL (11.5-15.4); Platelet Count 60 K/mcL (140-400)
[2018-03-14 04:42] LABS: Albumin 2.3 g/dL (3.5-5.7); Bilirubin,Total 0.6 mg/dL (0.3-1.0); Calcium 6.8 mg/dL (8.6-10.3); Globulin 2.2 g/dL (2.4-3.5); Potassium 3.2 mEq/L (3.5-5.1); Total Protein 4.5 g/dL (6.4-8.9)
[2018-03-14] MEDS: Budesonide/Formoterol 160/4.5 MDI IH SCH ×2 (07:24→19:55)
[2018-03-14] MEDS: Loratadine 10 MG TABLET PO SCH (08:28)
[2018-03-14] MEDS: *HR* Amiodarone 200 MG TABLET PO SCH (08:28)
[2018-03-14] MEDS: Fluticasone Propionate Nasal 50 MCG/SPRAY BOTTLE NS SCH (08:29)
[2018-03-14] MEDS ORDERED: Aspirin Enteric Coated 81 MG Tablet PO SCH (09:00)
[2018-03-14] MEDS ORDERED: Isosorbide MONOnitrate (24 HR) 60 MG TAB.ER.24H PO SCH (09:00)
--- NOTE | 2018-03-14 09:16 | General Surgery Progress Note ---
<Jun Pierce - Last Filed: 03/14/18 10:19> Date of Encounter: 03/14/18 Time of Encounter: 08:10 - Assessment and Plan (1) Sepsis Current Visit: Yes Status: Acute Sepsis of undetermined origin Appendicitis unlikely the cause with no rupture or abscess formation Leukocytosis improving. Improving clinically No longer hypotensive. No longer on pressors Continue antibiotics Qualifiers: Sepsis type: sepsis due to unspecified organism Qualified Code(s): A41.9 - Sepsis, unspecified organism (2) Acute appendicitis Current Visit: Yes Status: Acute POD #4 s/p laparoscopic appendectomy with Dr. Jimenez CT 03/11/18: postoperative mesenteric hemorrhage/fluid in RLQ/central lower abdomen along ARSEN - no IV contrast used, Likely post-op fluid Pt does have anemia - hgb 8.2 - transfuse to maintain > 7 Abdomen is tender as expected post-op, softer and not distended PLAN: Full liquid diet - Advance diet as tolerated Pain and nausea control Serial abdominal exams Renal management per nephrology - hypokalemia today - replacement per nephrology AM labs - continue to monitor Hgb closely Qualifiers: Acute appendicitis type: with localized peritonitis Qualified Code(s): K35.3 - Acute appendicitis with localized peritonitis (3) Anemia Current Visit: Yes Status: Acute Hgb 8.2 - s/p 4 total U RBCs - transfuse to maintain > 7 No signs of bleeding Has decreased but also received IV fluids yesterday - continue to monitor Qualifiers: Anemia type: other cause Other causes of anemia: acute posthemorrhagic Qualified Code(s): D62 - Acute posthemorrhagic anemia (4) Atrial fibrillation Current Visit: Yes Status: Chronic Regular now. Management per primary team Qualifiers: Atrial fibrillation type: chronic Qualified Code(s): I48.2 - Chronic atrial fibrillation (5) Chronic kidney disease, stage IV (severe) Current Visit: Yes Status: Acute Management per nephrology Renal function improving Subjective Patient reports: no new complaints, feels better, still having pain, pain is less, tolerating liquids well, voiding w/o difficulty (herrera in place), bowel movement, afebrile Narrative: She denies complaints. Reports having BM. States her pain is a little better. Able to tolerate liquids yesterday without N/V. Objective Vital Signs - Last 8 Hours Temp Pulse Resp BP Pulse Ox 03/14/18 07:24 16 99 03/14/18 07:16 97.6 F 73 16 112/70 93 03/14/18 04:33 97.5 F L 74 15 105/68 96 Intake and Output 03/13/18 03/14/18 03/14/18 23:59 07:59 15:59 Intake Total 580 / 580 1120 / 1120 Output Total 350 / 350 Balance 580 / 580 770 / 770 Intake: IV Fluids 100 / 100 1000 / 1000 0.9 % Sodium Chloride 1,000 ML 1000 / 1000 @ 75 mls/hr IVC .[id number] [facility] Rx #:[id number] Zosyn 3.375 GM In 0.9 % Sodium 100 / 100 Chloride (Mini-Bag +) 100 ML @ 25 mls/hr IVPB Q12H [facility] Rx#: [id number] Oral 480 / 480 120 / 120 Output: Urine 0 / 0 Catheter 350 / 350 Other: Stool Size Small Moderate Stool Consistency liquid loose Stool Characteristics Mucoid Stool Color Brown Brown # Bowel Movements 1 2 Weight 97.8 kg Blood Glucose* 110 87 Patient Weight 03/14/18 23:59 Weight 97.8 kg - General physical appearance no distress - Respiratory normal expansion, normal respiratory effort, clear to auscultation - Cardiovascular Cardiovascular exam: Present: RRR - Abdomen Abdomen: Present: bowel sounds present, soft, tender (appropriately). Absent: distended, guarding, rebound, rigid - Incision Incision: Present: clean and dry, intact - Integumentary no rash, no growths, no abnormal pigmentation - Psychiatric oriented to time, oriented to person, oriented to place, speech is normal, memory intact - Labs 03/14/18 04:00 03/14/18 04:00 Diabetes panel 03/14/18 Range/Units 04:00 Sodium 143 (136-145) mEq/L Potassium 3.2 L (3.5-5.1) mEq/L Chloride 117 H (98-107) mEq/L Carbon Dioxide 19 L (23-29) mEq/L BUN 45 H (8-23) mg/dL Creatinine 2.35 H (0.60-1.20) mg/dL Glucose 92 (70-105) mg/dL Calcium 6.8 L (8.6-10.3) mg/dL AST 9 L (13-39) Units/L ALT 11 (7-52) Units/L Alkaline Phosphatase 39 (34-104) Units/L Albumin 2.3 L (3.5-5.7) g/dL Calcium panel 03/14/18 Range/Units 04:00 Calcium 6.8 L (8.6-10.3) mg/dL Albumin 2.3 L (3.5-5.7) g/dL Pituitary panel 03/14/18 Range/Units 04:00 Sodium 143 (136-145) mEq/L Potassium 3.2 L (3.5-5.1) mEq/L Chloride 117 H (98-107) mEq/L Carbon Dioxide 19 L (23-29) mEq/L BUN 45 H (8-23) mg/dL Creatinine 2.35 H (0.60-1.20) mg/dL Glucose 92 (70-105) mg/dL Calcium 6.8 L (8.6-10.3) mg/dL Adrenal panel 03/14/18 Range/Units 04:00 Sodium 143 (136-145) mEq/L Potassium 3.2 L (3.5-5.1) mEq/L Chloride 117 H (98-107) mEq/L Carbon Dioxide 19 L (23-29) mEq/L BUN 45 H (8-23) mg/dL Creatinine 2.35 H (0.60-1.20) mg/dL Glucose 92 (70-105) mg/dL Calcium 6.8 L (8.6-10.3) mg/dL Total Bilirubin 0.6 (0.3-1.0) mg/dL AST 9 L (13-39) Units/L ALT 11 (7-52) Units/L Alkaline Phosphatase 39 (34-104) Units/L Albumin 2.3 L (3.5-5.7) g/dL - VTE Documentation of Mechanical Device: Intermittent pneumatic compression device Consult Discharge Plan - Plan Referrals: Lokesh Cooper MD [Primary Care Provider] - <Chapito Calderon - Last Filed: 03/14/18 11:11> Date of Encounter: 03/14/18 Objective Vital Signs - Last 8 Hours Temp Pulse Resp BP Pulse Ox 03/14/18 07:24 16 99 03/14/18 07:16 97.6 F 73 16 112/70 93 03/14/18 04:33 97.5 F L 74 15 105/68 96 Intake and Output 03/13/18 03/14/18 03/14/18 23:59 07:59 15:59 Intake Total 580 / 580 1120 / 1120 580 / 580 Output Total 350 / 350 Balance 580 / 580 770 / 770 580 / 580 Intake: IV Fluids 100 / 100 1000 / 1000 100 / 100 0.9 % Sodium Chloride 1,000 ML 1000 / 1000 @ 75 mls/hr IVC .[id number] [facility] Rx #:[id number] Zosyn 3.375 GM In 0.9 % Sodium 100 / 100 100 / 100 Chloride (Mini-Bag +) 100 ML @ 25 mls/hr IVPB Q12H [facility] Rx#: [id number] Oral 480 / 480 120 / 120 480 / 480 Output: Urine 0 / 0 Catheter 350 / 350 Other: Meal clear liquids Stool Size Small Moderate Stool Consistency liquid loose Stool Characteristics Mucoid Stool Color Brown Brown # Bowel Movements 1 2 Weight 97.8 kg Blood Glucose* 110 87 Patient Weight 03/14/18 23:59 Weight 97.8 kg - Labs 03/14/18 04:00 03/14/18 04:00 Diabetes panel 03/14/18 Range/Units 04:00 Sodium 143 (136-145) mEq/L Potassium 3.2 L (3.5-5.1) mEq/L Chloride 117 H (98-107) mEq/L Carbon Dioxide 19 L (23-29) mEq/L BUN 45 H (8-23) mg/dL Creatinine 2.35 H (0.60-1.20) mg/dL Glucose 92 (70-105) mg/dL Calcium 6.8 L (8.6-10.3) mg/dL AST 9 L (13-39) Units/L ALT 11 (7-52) Units/L Alkaline Phosphatase 39 (34-104) Units/L Albumin 2.3 L (3.5-5.7) g/dL Calcium panel 03/14/18 Range/Units 04:00 Calcium 6.8 L (8.6-10.3) mg/dL Albumin 2.3 L (3.5-5.7) g/dL Pituitary panel 03/14/18 Range/Units 04:00 Sodium 143 (136-145) mEq/L Potassium 3.2 L (3.5-5.1) mEq/L Chloride 117 H (98-107) mEq/L Carbon Dioxide 19 L (23-29) mEq/L BUN 45 H (8-23) mg/dL Creatinine 2.35 H (0.60-1.20) mg/dL Glucose 92 (70-105) mg/dL Calcium 6.8 L (8.6-10.3) mg/dL Adrenal panel 03/14/18 Range/Units 04:00 Sodium 143 (136-145) mEq/L Potassium 3.2 L (3.5-5.1) mEq/L Chloride 117 H (98-107) mEq/L Carbon Dioxide 19 L (23-29) mEq/L BUN 45 H (8-23) mg/dL Creatinine 2.35 H (0.60-1.20) mg/dL Glucose 92 (70-105) mg/dL Calcium 6.8 L (8.6-10.3) mg/dL Total Bilirubin 0.6 (0.3-1.0) mg/dL AST 9 L (13-39) Units/L ALT 11 (7-52) Units/L Alkaline Phosphatase 39 (34-104) Units/L Albumin 2.3 L (3.5-5.7) g/dL - Attending Attestation I examined this patient and my medical decision-making was reviewed with the Resident Physician. I agree with the documented findings, disposition and treatment plan as described except to the extent set forth below. The patient is seen and evaluated with the resident on morning rounds. The patient is doing much better. Her BUN/creatinine have improved. We will start her on a diet today. She is not having any abdominal pain. Chapito Calderon MD FACS
--- NOTE | 2018-03-14 11:45 | Internal Med Progress Note ---
Date of Encounter: 03/14/18 Time of Encounter: 11:40 - Assessment and plan (1) Severe sepsis Current Visit: No Status: Acute Assessment and plan: Likely from appendicitis. Leukocytosis has improved and patient is off pressors. Cotninue zosyn. Plan to complete 10- 14 day course of antibiotics once ready for discharge (2) Acute appendicitis Current Visit: Yes Status: Acute Assessment and plan: POD #4 s/p laparoscopic appendectomy. Surgery following. Continue antibiotics Qualifiers: Acute appendicitis type: with localized peritonitis Qualified Code(s): K35.3 - Acute appendicitis with localized peritonitis (3) Atrial fibrillation Current Visit: No Status: Acute Assessment and plan: Continue amiodarone and aspirin. Pt currently not a candidate for usp anticoagulation Qualifiers: Atrial fibrillation type: persistent Qualified Code(s): I48.1 - Persistent atrial fibrillation (4) Anemia Current Visit: Yes Status: Acute Assessment and plan: LCT 03/11/18: postoperative mesenteric hemorrhage in RLQ/central lower abdomen along ARSEN - no IV contrast used. S/P 4 units of PRBC tranfusion. Hemoglobin levels 8.2 this am. Monitor hemoglobin and transfuse as needed Qualifiers: Anemia type: other cause Other causes of anemia: acute posthemorrhagic Qualified Code(s): D62 - Acute posthemorrhagic anemia (5) Legally blind Current Visit: No Status: Chronic Assessment and plan: History of retinitis pigmentosa and macula degeneration Falls precautions, up with assist only (6) Congestive heart failure Current Visit: No Status: Chronic Assessment and plan: Euvolemic, not in acute exacerbation. Lasix on hold Qualifiers: Heart failure type: diastolic Heart failure chronicity: chronic Qualified Code(s): I50.32 - Chronic diastolic (congestive) heart failure (7) GERD (gastroesophageal reflux disease) Current Visit: No Status: Chronic Assessment and plan: Continue Prilosec Qualifiers: Esophagitis presence: without esophagitis Qualified Code(s): K21.9 - Gastro -esophageal reflux disease without esophagitis (8) HTN (hypertension) Current Visit: No Status: Chronic Assessment and plan: History of HTN, continue beta mitzi Qualifiers: Hypertension type: essential hypertension Qualified Code(s): I10 - Essential (primary) hypertension (9) Chronic kidney disease, stage IV (severe) Current Visit: Yes Status: Acute Assessment and plan: History of chronic renal disease Serum creatinine, BUN and GFR at baseline Continue to monitor, avoid nephrotoxins (10) Acute kidney injury superimposed on CKD Current Visit: Yes Status: Acute Assessment and plan: Possibly worsened by hypvolemia from post op hemorrhage. Renal following. Continue IV fluids and lasix to stimulate urine output (11) Hypokalemia Current Visit: Yes Status: Acute Assessment and plan: Replaced - Time Spent With Patient Total time spent is greater than 50% in coordination of care (as documented) at patient's floor/unit and/or counseling patient: - Subjective Interval history: No acute events overnight - Constitutional Vitals: Temp Pulse Resp BP Pulse Ox 97.6 F 73 16 112/70 99 03/14/18 07:16 03/14/18 07:16 03/14/18 07:24 03/14/18 07:16 03/14/18 07:24 General appearance: Present: A&O X 3, pleasant, no acute distress, answers questions appropriately - Head Head exam: Present: atraumatic, normocephalic - Eye Eye exam: Present: PERRL, conjuntiva pink, sclera anicteric Pupils: Present: PERRL - Neck Neck exam general surgery: Present: supple, trachea midline. Absent: lymphadenopathy - Respiratory Respiratory exam: Present: CTAB. Absent: accessory muscle use, rales, rhonchi, wheezes - Cardiovascular Cardiovascular exam: Present: RRR, +S1, +S2. Absent: diastolic murmur, gallop, rubs, systolic murmur - GI/Abdominal GI/Abdominal exam: Present: normal bowel sounds, soft, no peritoneal signs. Absent: distended, tenderness - Extremities Exam Extremities exam: Present: warm, radial pulses palpable and symmetrical. Absent : calf tenderness, cyanotic, pedal edema - Neurological Exam Neurological exam: Present: CN II-XII intact, oriented X3, no focal deficits. Absent: pronater drift, facial droop, speech deficit - Skin Skin exam: Present: dry, intact Internal Medicine: Result - Labs CBC & Chem 7: 03/14/18 04:00 03/14/18 04:00 Labs: Short CBC 03/14/18 Range/Units 04:00 WBC 6.6 (4.3-11.1) K/mcL Hgb 8.2 L D (11.5-15.4) g/dL Hct 26.0 L (35.3-44.9) % Plt Count 60 L (140-400) K/mcL Neutrophils # 5.7 (1.6-8.9) K/mcL BMP 03/14/18 04:00 Sodium 143 Potassium 3.2 L Chloride 117 H Carbon Dioxide 19 L BUN 45 H Creatinine 2.35 H Glucose 92 Calcium 6.8 L Liver Function 03/14/18 Range/Units 04:00 Total Bilirubin 0.6 (0.3-1.0) mg/dL AST 9 L (13-39) Units/L ALT 11 (7-52) Units/L Alkaline Phosphatase 39 (34-104) Units/L Albumin 2.3 L (3.5-5.7) g/dL - ABG Interpretation ABG results: PT/INR, D-dimer PT 19.7 Seconds (9.4-12.1) H 03/11/18 04:17 - VTE Documentation of Mechanical Device: Intermittent pneumatic compression device Consult Discharge Plan - Plan Referrals: Lokesh Cooper MD [Primary Care Provider] -
[2018-03-14] MEDS: *HR* HYDROcodone/Acet 5/325 mg TABLET PO PRN (20:30)
[2018-03-15] MEDS: Piperacillin/Tazobactam 3.375 GM in 0.9 % Sodium Chloride Mini Bag 100 ML IVPB SCH (02:52)
[2018-03-15] MEDS: *HR* HYDROcodone/Acet 5/325 mg TABLET PO PRN (03:15)
[2018-03-15 04:24] LABS: Basophils % 0.1 %; Lymphocytes % 7.9 %; Monocytes % 5.3 %; Nucleated Red Blood Cells 0.4 /100 WBC (0)
[2018-03-15 04:26] LABS: Eosinophils # 0.2 K/mcL (0.0-0.6); Eosinophils % 2.6 %; Hematocrit 29.8 % (35.3-44.9); Hemoglobin 9.7 g/dL (11.5-15.4); Immature Granulocytes % 0.6 % (0-4); Immature Platelets 2.6 % (1.1-6.1); Mean Corpuscular HGB Conc 32.6 g/dL (31.6-35.5); Mean Corpuscular Hemoglobin 31.2 pg (28.0-33.3); Mean Corpuscular Volume 95.8 fL (83.0-100.0); Mean Platelet Volume 10.3 fL (9.4-12.4); Monocytes # 0.4 K/mcL (0.0-1.3); Red Blood Count 3.11 M/mcL (3.82-4.97); Red Cell Distribution Width 17.4 % (11.5-14.5); Segmented Neutrophils % 83.5 %
[2018-03-15 04:29] LABS: Lymphocytes # 0.7 K/mcL (0.6-4.6); Neutrophils # 6.9 K/mcL (1.6-8.9); Platelet Count 88 K/mcL (140-400)
[2018-03-15] MEDS: 0.9 % Sodium Chloride 1,000 ML IVC SCH (04:30)
[2018-03-15 04:41] LABS: Calcium 7.9 mg/dL (8.6-10.3); Magnesium 1.7 mg/dL (1.6-2.6); Phosphorous 2.6 mg/dL (2.7-4.5); Potassium 4.6 mEq/L (3.5-5.1)
[2018-03-15] MEDS: Budesonide/Formoterol 160/4.5 MDI IH SCH (07:54)
[2018-03-15] MEDS: *HR* Amiodarone 200 MG TABLET PO SCH (08:30)
[2018-03-15] MEDS: Loratadine 10 MG TABLET PO SCH (08:30)
[2018-03-15] MEDS: Fluticasone Propionate Nasal 50 MCG/SPRAY BOTTLE NS SCH (08:34)
--- NOTE | 2018-03-15 10:19 | General Surgery Progress Note ---
<GioJosephine Locke - Last Filed: 03/15/18 10:17> Date of Encounter: 03/15/18 Time of Encounter: 10:00 - Assessment and Plan (1) Acute appendicitis Status: Acute Date of procedure: 03/10/18 Pre-op diagnosis: acute appendicitis Post-op diagnosis: same Procedure: laparoscopic appendectomy Complications: none immediate POD #[address] 03/11/2018 postoperative mesenteric hemorrhage/fluid in RLQ/central lower abdomen along ARSEN - no IV contrast used, Likely post-op fluid s/p transfusion 4U PRBCs and 1 Platelets for acute on chronic anemia. Current hgb 9.7 and no evidence of acute bleeding WBC normal Her abdominal exam is as expected postoperatively, with the exception of abdominal edema (most likely 3rd spacing versus fluid overload). Her Herrera catheter remains in place. There are some small areas of ecchymosis at the surgical sites but otherwise the sites are within normal limits. She reports having a bowel movement yesterday and passing small amounts of flatus. She denies nausea or vomiting. No surgical indication to continue IV fluids I did review with Dr. Florez (primary team) who is agreeable to stop IVF and also noted continued acute on chronic KI and further fluid management per primary/nephrology. Plan: advance diet to soft dietary supplement TID stopped IVF as above add MiraLAX daily until p.m. daily. Continue Colace continue supportive care and discomfort management PT/OT per primary team Continue IV ATBX; may transition to p.o. when applicable Qualifiers: Acute appendicitis type: with localized peritonitis Qualified Code(s): K35.3 - Acute appendicitis with localized peritonitis (2) Anemia Status: Acute Acute on chronic anemia. See a/p above Qualifiers: Anemia type: other cause Other causes of anemia: acute posthemorrhagic Qualified Code(s): D62 - Acute posthemorrhagic anemia (3) Acute kidney injury superimposed on CKD Status: Acute Creatinine 2.22 today, no surgical indication for continued IV fluids at this time. nephrology is following and noted that patient may benefit from preloaded to help maintain cardiac output and they did trial one dose of Lasix yesterday. Noted certainly for renal function worsens then she may require dialysis in the future. Management per nephrology. Subjective Patient reports: no new complaints, feels better, still having pain, pain is less, tolerating liquids well, voiding w/o difficulty (per herrera), flatus, bowel movement (Yesterday), shortness of breath (with activity) Objective Vital Signs - Last 8 Hours Temp Pulse Resp BP Pulse Ox 03/15/18 07:54 15 97 03/15/18 07:34 97.8 F 85 15 113/70 97 03/15/18 03:15 97.7 F 78 15 114/72 94 Intake and Output 03/14/18 03/15/18 03/15/18 23:59 07:59 15:59 Intake Total 220 / 220 1000 / 1000 340 / 340 Output Total 575 / 575 100 / 100 Balance -355 / -355 900 / 900 340 / 340 Intake: IV Fluids 100 / 100 1000 / 1000 100 / 100 0.9 % Sodium Chloride 1,000 ML 1000 / 1000 @ 75 mls/hr IVC .[id number] [facility] Rx #:[id number] Zosyn 3.375 GM In 0.9 % Sodium 100 / 100 100 / 100 Chloride (Mini-Bag +) 100 ML @ 25 mls/hr IVPB Q12H [facility] Rx#: [id number] Oral 120 / 120 0 / 0 240 / 240 Output: Urine 0 / 0 0 / 0 Catheter 575 / 575 100 / 100 Other: Meal Breakfast Percent of Meal Consumed 75% VITAL SIGNS: [facility] GENERAL: In no apparent distress. HEENT: Normocephalic, atraumatic, legally blind, oropharynx is pink and moist, there is no neck adenopathy. There is +JVD noted. CHEST/RESPIRATORY: The thorax is free from signs of trauma. Lung sounds: crackles noted BL CARDIAC: Distant heart tones. Irregular. VASCULAR: 3+ pitting edema BLLE. 2+ peripheral pulses. ABDOMEN: Edmatous (appears 3rd spaced vs fluid overload), ABS, expected postoperative tenderness INCISION: Surgical incision is clean, dry, and intact. There are no signs of cellulitis or infection noted. MUSCULOSKELETAL: generalized deconditioning noted. NEUROLOGIC EXAM: Alert and oriented x 3. Speech normal. Follows commands. PSYCHIATRIC: Mood normal. SKIN: No rash or lesions. - Labs 03/15/18 04:05 03/15/18 04:05 Diabetes panel 03/15/18 Range/Units 04:05 Sodium 143 (136-145) mEq/L Potassium 4.6 (3.5-5.1) mEq/L Chloride 116 H (98-107) mEq/L Carbon Dioxide 23 (23-29) mEq/L BUN 42 H (8-23) mg/dL Creatinine 2.22 H (0.60-1.20) mg/dL Glucose 107 H (70-105) mg/dL Calcium 7.9 L (8.6-10.3) mg/dL Calcium panel 03/15/18 Range/Units 04:05 Calcium 7.9 L (8.6-10.3) mg/dL Phosphorus 2.6 L (2.7-4.5) mg/dL Pituitary panel 03/15/18 Range/Units 04:05 Sodium 143 (136-145) mEq/L Potassium 4.6 (3.5-5.1) mEq/L Chloride 116 H (98-107) mEq/L Carbon Dioxide 23 (23-29) mEq/L BUN 42 H (8-23) mg/dL Creatinine 2.22 H (0.60-1.20) mg/dL Glucose 107 H (70-105) mg/dL Calcium 7.9 L (8.6-10.3) mg/dL Adrenal panel 03/15/18 Range/Units 04:05 Sodium 143 (136-145) mEq/L Potassium 4.6 (3.5-5.1) mEq/L Chloride 116 H (98-107) mEq/L Carbon Dioxide 23 (23-29) mEq/L BUN 42 H (8-23) mg/dL Creatinine 2.22 H (0.60-1.20) mg/dL Glucose 107 H (70-105) mg/dL Calcium 7.9 L (8.6-10.3) mg/dL - VTE Documentation of Mechanical Device: Intermittent pneumatic compression device Consult Discharge Plan - Plan Instructions: Laparoscopic Appendectomy (DC) Additional Instructions: General Surgical Discharge Instructions 1. No pushing, pulling, or lifting greater than 15 lbs for 2 weeks (depending upon procedure). 2. You may shower beginning today, but no tub baths, soaking, or swimming for 2 weeks. 3. You may resume driving when you are off narcotics and are safe to react in a car. 4. You may take the as needed Percocet. Take narcotics as directed. Do not take more narcotics then directed and do not share your narcotics with any other person. Do not drink alcohol while on narcotics. 5. Take stool softeners (Colace) or a water based laxative (Miralax) while taking narcotics. You may hold for loose stools. 6. Report any fevers greater than 100.5F, increase abdominal discomfort, drainage that looks like pus, increased redness or pain at the surgical site, or any vomiting. 7. Report any pain in the calves, shortness of breath, or rapid heartbeat. 8. Follow-up in the office as directed. 9. If you were prescribed antibiotics, do not stop them without talking to your provider. Referrals: Lokesh Cooper MD [Primary Care Provider] - Ericka Breaux CNP [Advanced Practice Nurse] - 03/25/18 8:30 am Prescriptions: Amoxicillin/Clavulanate [Augmentin] 875 mg PO BIDWM 5 Days #10 tablet Budesonide/Formoterol 160/4.5 [Symbicort 160/4.5] 2 puff IH BIDR 30 Days #30 inhaler <Crystal Jimenez - Last Filed: 03/15/18 15:33> Date of Encounter: 03/15/18 - Assessment and Plan (1) Atrial fibrillation Status: Chronic Qualifiers: Atrial fibrillation type: chronic Qualified Code(s): I48.2 - Chronic atrial fibrillation (2) H/O prosthetic heart valve Status: Chronic (3) Pulmonary hypertension Status: Chronic (4) Right lower quadrant pain Status: Acute (5) Abnormal CT of the abdomen Status: Acute Objective Vital Signs - Last 8 Hours Temp Pulse Resp BP Pulse Ox 03/15/18 10:54 97.5 F L 91 15 104/72 97 03/15/18 07:54 15 97 03/15/18 07:34 97.8 F 85 15 113/70 97 Intake and Output 03/14/18 03/15/18 03/15/18 23:59 07:59 15:59 Intake Total 220 / 220 1000 / 1000 340 / 340 Output Total 575 / 575 100 / 100 0 / 0 Balance -355 / -355 900 / 900 340 / 340 Intake: IV Fluids 100 / 100 1000 / 1000 100 / 100 0.9 % Sodium Chloride 1,000 ML 1000 / 1000 @ 75 mls/hr IVC .[id number] REPLACED BY [facility] Rx #:[id number] Zosyn 3.375 GM In 0.9 % Sodium 100 / 100 100 / 100 Chloride (Mini-Bag +) 100 ML @ 25 mls/hr IVPB Q12H REPLACED BY [facility] Rx#: [id number] Oral 120 / 120 0 / 0 240 / 240 Output: Urine 0 / 0 0 / 0 Catheter 575 / 575 100 / 100 0 / 0 Other: Meal Breakfast Percent of Meal Consumed 75% - Labs 03/15/18 04:05 03/15/18 04:05 Diabetes panel 03/15/18 Range/Units 04:05 Sodium 143 (136-145) mEq/L Potassium 4.6 (3.5-5.1) mEq/L Chloride 116 H (98-107) mEq/L Carbon Dioxide 23 (23-29) mEq/L BUN 42 H (8-23) mg/dL Creatinine 2.22 H (0.60-1.20) mg/dL Glucose 107 H (70-105) mg/dL Calcium 7.9 L (8.6-10.3) mg/dL Calcium panel 03/15/18 Range/Units 04:05 Calcium 7.9 L (8.6-10.3) mg/dL Phosphorus 2.6 L (2.7-4.5) mg/dL Pituitary panel 03/15/18 Range/Units 04:05 Sodium 143 (136-145) mEq/L Potassium 4.6 (3.5-5.1) mEq/L Chloride 116 H (98-107) mEq/L Carbon Dioxide 23 (23-29) mEq/L BUN 42 H (8-23) mg/dL Creatinine 2.22 H (0.60-1.20) mg/dL Glucose 107 H (70-105) mg/dL Calcium 7.9 L (8.6-10.3) mg/dL Adrenal panel 03/15/18 Range/Units 04:05 Sodium 143 (136-145) mEq/L Potassium 4.6 (3.5-5.1) mEq/L Chloride 116 H (98-107) mEq/L Carbon Dioxide 23 (23-29) mEq/L BUN 42 H (8-23) mg/dL Creatinine 2.22 H (0.60-1.20) mg/dL Glucose 107 H (70-105) mg/dL Calcium 7.9 L (8.6-10.3) mg/dL - Attending Attestation patient was discharged by hospitalist before I was able to see patient
[2018-03-15] MEDS: Acetaminophen 325 MG TABLET PO PRN (10:39)
[2018-03-15 10:56] VITALS: BP 104/72
--- NOTE | 2018-03-15 12:01 | Discharge Summary ---
Date of Encounter: 03/15/18 Time of Encounter: 11:55 - Discharge Diagnosis (1) Severe sepsis Priority: Primary Status: Acute Assessment and Plan: 72 year old female patient with right lower quadrant pain with nausea and vomiting. Was being seen in outpatient by an oncologist and was having imaging done of her abdomen. CT results showed a prominent appendix with high density focus within the lumen as well as a focus of hemorrhage and regional inflammation and free fluid tracking to the cul-de-sac. She was notified at her long term, and told to go the emergency room She was assessed with appendicitis and seen by surgery. She underwent laparoscopic appendectomy on 03/10. Patient was postop on the surgery floor when she became hypotensive and short of breath so she was transferred down to the ICU. Upon arrival to the ICU. Patient was hypotensive with maps in the 50s. Her abdomen was distended and mildly tender but soft. There was some concern over postoperative bleeding, so 2 units of blood were ordered. She responded well to the blood, but was requiring pressor support with dopamine. A third unit of blood was ordered and she was able to be weaned off the dopamine. She was also noted to have a leukocytosis up to 19 and was treated for sepsis with zosyn. Possible source of sepsis was from appendicitis. Elvis WBC gradually trended down, she was weaned off pressors and transferred back to the floor. Etiology of her hypotension was thought to be secondary to acute blood loss anemia from post op mesenteric hemorrhage which was demonstrated on CT scan vs sepsis. These resolved with PRBC and antibiotics. She also had Tiffany and received IV fluids. She was gradually transitioned to a diet and was discharged to F once she tolerated her diet. She will complete a 5 day course of augmentin. 35minutes was spent discharging this patient (2) Acute appendicitis Priority: Secondary Status: Acute Assessment and Plan: POD #4 s/p laparoscopic appendectomy. Surgery following. 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 (6) Congestive heart failure Priority: Secondary Status: Chronic Qualifiers: Heart failure type: diastolic Heart failure chronicity: chronic Qualified Code(s): I50.32 - Chronic diastolic (congestive) heart failure (7) GERD (gastroesophageal reflux disease) Priority: Secondary Status: Chronic Qualifiers: Esophagitis presence: without esophagitis Qualified Code(s): K21.9 - Gastro -esophageal reflux disease without esophagitis (8) HTN (hypertension) Priority: Secondary Status: Chronic Qualifiers: Hypertension type: essential hypertension Qualified Code(s): I10 - Essential (primary) hypertension (9) Chronic kidney disease, stage IV (severe) Priority: Secondary Status: Acute (10) Acute kidney injury superimposed on CKD Priority: Secondary Status: Acute (11) Hypokalemia Priority: Secondary Status: Acute Hospital course: Ms. Barber is a 72 year old female - Time Spent with Patient Total time spent providing and/or coordinating discharge services: - Discharge Medications Prescriptions: Amoxicillin/Clavulanate [Augmentin] 875 mg PO BIDWM 5 Days #10 tablet Budesonide/Formoterol 160/4.5 [Symbicort 160/4.5] 2 puff IH BIDR 30 Days #30 inhaler Home Medications: Cyclosporine [Restasis] 1 drop BOTH EYES BID 04/30/15 [History] Isosorbide MONOnitrate [Isosorbide Mononitrate ER] 60 mg PO DAILY 04/30/15 [ History] Potassium Chloride 20 meq PO DAILY 06/19/16 [History] Calcitriol [Rocaltrol] 0.25 mcg PO DAILY 03/20/17 [History] Fluticasone/Vilanterol [Breo Ellipta 100-25 Mcg INH] 1 each IH DAILY 07/20/17 [ History] Loratadine [Claritin] 10 mg PO DAILY 07/20/17 [History] Nystatin POWDER [Nystop] 1 appl TP BID 07/20/17 [History] Albuterol Sulfate [Albuterol Inhaler] 2 puff IH Q4HR PRN 08/27/17 [History] Atorvastatin Calcium [Lipitor] 20 mg PO HS 10/06/17 [History] Esomeprazole Magnesium [Nexium] 40 mg PO DAILY 10/06/17 [History] Aspirin Enteric Coated [Aspirin EC] 81 mg PO DAILY tablet. 11/02/17 [Rx] Amiodarone [Cordarone] 200 mg PO DAILY 11/28/17 [History] Docusate [Colace] 100 mg PO BID PRN capsule 12/02/17 [Rx] Fluticasone Propionate Nasal [Flonase] 50 mcg NS DAILY bottle 12/02/17 [Rx] Ipratropium/Albuterol Neb [Duoneb] 3 ml IH [id number] PRN 30 Days inhsol 12/02/17 [Rx] Metoprolol [Lopressor] 50 mg PO BID tablet 12/02/17 [Rx] Acetaminophen [Tylenol] 650 mg PO Q4HR PRN 02/11/18 [History] GuaiFENesin Liq [Robitussin Liq] 200 mg PO Q4HR PRN 02/11/18 [History] Furosemide [Lasix] 40 mg PO DAILY 03/09/18 [History] Quetiapine Fumarate [Seroquel] 50 mg PO HS 03/09/18 [History] Amoxicillin/Clavulanate [Augmentin] 875 mg PO BIDWM 5 Days #10 tablet 03/15/18 [ Rx] Budesonide/Formoterol 160/4.5 [Symbicort 160/4.5] 2 puff IH BIDR 30 Days #30 inhaler 03/15/18 [Rx] Allergies/Adverse Reactions: 3 Allergy/AdvReac Type Severity Reaction Status Date / Time ciprofloxacin [From Cipro] Allergy Hives Verified 02/11/18 14:06 meperidine [From Demerol] AdvReac Vomiting Verified 02/11/18 14:06 Date of admission: 03/09/18 20:58 Primary care physician: Lokesh Cooper MD Consults: 03/09/18 21:41 Consult to [employer] [CONS] Routine Reason for SW Consult: ECF 03/11/18 06:23 Consult to Critical Care [CONS] Stat Consulting Provider: Pulm [facility] Reason for Consult: AMS, hypotension, recent lap appy, concern for bleeding Time Notified: 06:23 Call Completed: Yes 03/12/18 09:44 Consult to Nephrology [CONS] Routine Consulting Provider: [facility]ONAK Reason for Consult: Acute/chronic kidney injury Time Notified: 09:44 Call Completed: Yes 03/14/18 11:52 Consult to Physical Therapy [CONS] Routine Comment: Evaluate, develop and implement POC Reason for Consult: mobilization, weakness Does patient have active BEDREST order?: No Is patient medically & hemodynamically stable?: Yes Patient assessed for mobility or mobilized this visit?: Yes - Constitutional Vitals: Temp Pulse Resp BP Pulse Ox 97.5 F L 91 15 104/72 97 03/15/18 10:54 03/15/18 10:54 03/15/18 10:54 03/15/18 10:54 03/15/18 10:54 General appearance: Present: A&O X 3, pleasant, no acute distress, answers questions appropriately - Head Head exam: Present: atraumatic, normocephalic - Eye Eye exam: Present: PERRL, conjuntiva pink, sclera anicteric Pupils: Present: PERRL - Neck Neck exam general surgery: Present: supple, trachea midline. Absent: lymphadenopathy - Respiratory Respiratory exam: Present: CTAB. Absent: accessory muscle use, rales, rhonchi, wheezes - Cardiovascular Cardiovascular exam: Present: RRR, +S1, +S2. Absent: diastolic murmur, gallop, rubs, systolic murmur - GI/Abdominal GI/Abdominal exam: Present: normal bowel sounds, soft, no peritoneal signs. Absent: distended, tenderness - Extremities Exam Extremities exam: Present: warm, radial pulses palpable and symmetrical. Absent : calf tenderness, cyanotic, pedal edema - Neurological Exam Neurological exam: Present: CN II-XII intact, oriented X3, no focal deficits. Absent: pronater drift, facial droop, speech deficit - Skin Skin exam: Present: dry, intact - Patient Status Disposition: Transfer SNF Condition: Good - Discharge Instructions Instructions: Laparoscopic Appendectomy (DC) Follow Up With: Lokesh Cooper MD [Primary Care Provider] - Ericka Breaux CNP [Advanced Practice Nurse] - 03/25/18 8:30 am Additional Instructions: General Surgical Discharge Instructions 1. No pushing, pulling, or lifting greater than 15 lbs for 2 weeks (depending upon procedure). 2. You may shower beginning today, but no tub baths, soaking, or swimming for 2 weeks. 3. You may resume driving when you are off narcotics and are safe to react in a car. 4. You may take the as needed Percocet. Take narcotics as directed. Do not take more narcotics then directed and do not share your narcotics with any other person. Do not drink alcohol while on narcotics. 5. Take stool softeners (Colace) or a water based laxative (Miralax) while taking narcotics. You may hold for loose stools. 6. Report any fevers greater than 100.5F, increase abdominal discomfort, drainage that looks like pus, increased redness or pain at the surgical site, or any vomiting. 7. Report any pain in the calves, shortness of breath, or rapid heartbeat. 8. Follow-up in the office as directed. 9. If you were prescribed antibiotics, do not stop them without talking to your provider. - VTE Documentation of Mechanical Device: Intermittent pneumatic compression device
--- NOTE | 2018-03-15 12:20 | Nephrology Progress Note ---
Date of Encounter: 03/15/18 Time of Encounter: 12:00 - Assessment and Plan (1) Acute on chronic renal failure Current Visit: No Status: Acute TUCKER superimosed on CKD, post op lap appy with post hemorrhage. Renal fct stable , creat 2.22 Baseline creat 1.8-2.3. Documented urine output 1125cc. Will continue to monitor. Qualifiers: Acute renal failure type: unspecified Chronic kidney disease stage: stage 4 (severe) Qualified Code(s): N17.9 - Acute kidney failure, unspecified; N18.4 - Chronic kidney disease, stage 4 (severe) Subjective Principal diagnosis: acute appendacitis Interval history: Laying inbed. Complains of RLQ discomfort. States had pain RX earlier. Objective - Vital Signs Vital signs: Vital Signs Temp Pulse Resp BP Pulse Ox 03/15/18 10:54 97.5 F L 91 15 104/72 97 03/15/18 07:54 15 97 03/15/18 07:34 97.8 F 85 15 113/70 97 03/15/18 03:15 97.7 F 78 15 114/72 94 03/14/18 23:44 99.1 F 91 15 111/70 98 03/14/18 19:59 16 96 03/14/18 18:59 97.8 F 66 15 117/75 94 03/14/18 16:32 98.1 F 73 16 112/68 93 Intake and Output 03/14/18 03/15/18 03/15/18 23:59 07:59 15:59 Intake Total 220 / 220 1000 / 1000 340 / 340 Output Total 575 / 575 100 / 100 0 / 0 Balance -355 / -355 900 / 900 340 / 340 Intake: IV Fluids 100 / 100 1000 / 1000 100 / 100 0.9 % Sodium Chloride 1,000 ML 1000 / 1000 @ 75 mls/hr IVC .[id number] DEREK Rx #:[id number] Zosyn 3.375 GM In 0.9 % Sodium 100 / 100 100 / 100 Chloride (Mini-Bag +) 100 ML @ 25 mls/hr IVPB Q12H DEREK Rx#: [id number] Oral 120 / 120 0 / 0 240 / 240 Output: Urine 0 / 0 0 / 0 Catheter 575 / 575 100 / 100 0 / 0 Other: Meal Breakfast Percent of Meal Consumed 75% - General Appearance General appearance: Present: well-developed, well-nourished, appears started age , obese EENT: Present: mucous membranes moist Neck: Present: no JVD Respiratory: Present: clear Cardiology: Present: edema, regular rate, regular rhythm Gastrointestinal: Present: normoactive bowel sounds, tenderness Integumentary: Present: warm and dry Psychiatric: Present: mood/affect appropriate, cooperative - Lab 03/15/18 04:05 03/15/18 04:05 Most recent lab results Calcium 7.9 mg/dL (8.6-10.3) L 03/15/18 04:05 Phosphorus 2.6 mg/dL (2.7-4.5) L 03/15/18 04:05 Magnesium 1.7 mg/dL (1.6-2.6) 03/15/18 04:05 Urine Sodium 97.5 mEq/L 03/12/18 08:45 - VTE Documentation of Mechanical Device: Intermittent pneumatic compression device Consult Discharge Plan - Plan Instructions: Laparoscopic Appendectomy (DC) Additional Instructions: General Surgical Discharge Instructions 1. No pushing, pulling, or lifting greater than 15 lbs for 2 weeks (depending upon procedure). 2. You may shower beginning today, but no tub baths, soaking, or swimming for 2 weeks. 3. You may resume driving when you are off narcotics and are safe to react in a car. 4. You may take the as needed Percocet. Take narcotics as directed. Do not take more narcotics then directed and do not share your narcotics with any other person. Do not drink alcohol while on narcotics. 5. Take stool softeners (Colace) or a water based laxative (Miralax) while taking narcotics. You may hold for loose stools. 6. Report any fevers greater than 100.5F, increase abdominal discomfort, drainage that looks like pus, increased redness or pain at the surgical site, or any vomiting. 7. Report any pain in the calves, shortness of breath, or rapid heartbeat. 8. Follow-up in the office as directed. 9. If you were prescribed antibiotics, do not stop them without talking to your provider. Referrals: Lokesh Cooper MD [Primary Care Provider] - Ericka Breaux CNP [Advanced Practice Nurse] - 03/25/18 8:30 am Prescriptions: Amoxicillin/Clavulanate [Augmentin] 875 mg PO BIDWM 5 Days #10 tablet Budesonide/Formoterol 160/4.5 [Symbicort 160/4.5] 2 puff IH BIDR 30 Days #30 inhaler
--- NOTE | 2018-03-15 13:01 | Physician Discharge Referral ---
ExtendedCare Referral Info Transfer To: [facility] - Diagnosis (1) Severe sepsis Priority: Primary Status: Acute (2) Acute appendicitis Status: Acute (3) Atrial fibrillation Status: Acute (4) Anemia Status: Acute (5) Legally blind Status: Chronic (6) Congestive heart failure Status: Chronic (7) GERD (gastroesophageal reflux disease) Status: Chronic (8) HTN (hypertension) Status: Chronic (9) Chronic kidney disease, stage IV (severe) Status: Acute (10) Acute kidney injury superimposed on CKD Status: Acute (11) Hypokalemia Status: Acute - Transfer Medications Prescriptions: Amoxicillin/Clavulanate [Augmentin] 875 mg PO BIDWM 5 Days #10 tablet Budesonide/Formoterol 160/4.5 [Symbicort 160/4.5] 2 puff IH BIDR 30 Days #30 inhaler Home Medications: Cyclosporine [Restasis] 1 drop BOTH EYES BID 04/30/15 [History] Isosorbide MONOnitrate [Isosorbide Mononitrate ER] 60 mg PO DAILY 04/30/15 [ History] Potassium Chloride 20 meq PO DAILY 06/19/16 [History] Calcitriol [Rocaltrol] 0.25 mcg PO DAILY 03/20/17 [History] Fluticasone/Vilanterol [Breo Ellipta 100-25 Mcg INH] 1 each IH DAILY 07/20/17 [ History] Loratadine [Claritin] 10 mg PO DAILY 07/20/17 [History] Nystatin POWDER [Nystop] 1 appl TP BID 07/20/17 [History] Albuterol Sulfate [Albuterol Inhaler] 2 puff IH Q4HR PRN 08/27/17 [History] Atorvastatin Calcium [Lipitor] 20 mg PO HS 10/06/17 [History] Esomeprazole Magnesium [Nexium] 40 mg PO DAILY 10/06/17 [History] Aspirin Enteric Coated [Aspirin EC] 81 mg PO DAILY tablet. 11/02/17 [Rx] Amiodarone [Cordarone] 200 mg PO DAILY 11/28/17 [History] Docusate [Colace] 100 mg PO BID PRN capsule 12/02/17 [Rx] Fluticasone Propionate Nasal [Flonase] 50 mcg NS DAILY bottle 12/02/17 [Rx] Ipratropium/Albuterol Neb [Duoneb] 3 ml IH [id number] PRN 30 Days inhsol 12/02/17 [Rx] Metoprolol [Lopressor] 50 mg PO BID tablet 12/02/17 [Rx] Acetaminophen [Tylenol] 650 mg PO Q4HR PRN 02/11/18 [History] GuaiFENesin Liq [Robitussin Liq] 200 mg PO Q4HR PRN 02/11/18 [History] Furosemide [Lasix] 40 mg PO DAILY 03/09/18 [History] Quetiapine Fumarate [Seroquel] 50 mg PO HS 03/09/18 [History] Amoxicillin/Clavulanate [Augmentin] 875 mg PO BIDWM 5 Days #10 tablet 03/15/18 [ Rx] Budesonide/Formoterol 160/4.5 [Symbicort 160/4.5] 2 puff IH BIDR 30 Days #30 inhaler 03/15/18 [Rx] Allergies/Adverse Reactions: 3 Allergy/AdvReac Type Severity Reaction Status Date / Time ciprofloxacin [From Cipro] Allergy Hives Verified 02/11/18 14:06 meperidine [From Demerol] AdvReac Vomiting Verified 02/11/18 14:06 - Respiratory Orders Smoking Cessation: Smoking cessation has been advised. For more information, call the [place] Tobacco Quit Line at 9-108-FVMX-NOW. - Mobility Orders Ambulate - Rehabiliation Orders Rehab Potential: Good - Diet Orders Cardiac CERTIFICATION: I certify that the transfer of the above named patient to an Extended Care Facility is necessary for the continuing treatment of the diagnosis listed. The above information is true and accurate reflection of patient's current condition. Confidential - Redisclosure prohibited without a patient's written consent.
== END 2018-03-15 14:28 | DRG 338 ==
LOC: EMEROO 16:49 → 3ANU 16:49 → ICNU 03-11 02:13 → 3ANU 03-13 12:56
PROVIDERS: ADMIT Nurse Practitioner Family; ATTEND Nurse Practitioner Family

== ENCOUNTER 2018-03-29 11:38 | Inpatient (IN) ==
--- NOTE | 2018-03-29 12:05 | Emergency Department Note ---
Disposition Clinical Impression: Chronic kidney disease, stage IV (severe) UTI (urinary tract infection) Qualifiers: Urinary tract infection type: site unspecified Hematuria presence: with hematuria Qualified Code(s): N39.0 - Urinary tract infection, site not specified ; R31.9 - Hematuria, unspecified Abdominal pain Qualifiers: Abdominal location: generalized Qualified Code(s): R10.84 - Generalized abdominal pain Atrial fibrillation Qualifiers: Atrial fibrillation type: chronic Qualified Code(s): I48.2 - Chronic atrial fibrillation Disposition: Admitted As Inpatient Condition: Undetermined Referrals: Lokesh Cooper MD [Primary Care Provider] - Forms: ED Satisfaction Letter, Work/School Release Time of Disposition: 15:26 Abdominal Pain HPI - General Chief Complaint: ED Abdominal Pain Stated Complaint: Abdominal Pain Time Seen by Provider: 03/29/18 11:44 Source: patient Mode of arrival: ambulatory Limitations: no limitations Nursing Notes Reviewed: Yes Vital Signs Reviewed: Yes - History of Present Illness HPI Narrative: 72-year-old female with recent history of appendectomy roughly 2 weeks ago. The patient had postop complication likely postoperative bleeding with the patient received 3 units of blood and became hypotensive. The patient was in the ICU at this time. The patient continued to experience worsening abdominal pain. She has a history of chronic atrial fibrillation on aspirin only. The patient also appears to have some chronic kidney disease based on lab work when I was looking through the patient's medical record. The patient arrives today with continued abdominal pain that is worse since she had her appendectomy. Hypertension pain is primarily in the right lower quadrant radiating posteriorly into her back and right flank. The patient does have some radiation as well to her left lower quadrant. She denies any fevers but admits to chills. She denies any nausea, vomiting, dysuria. She denies any cough as well. The patient was scheduled to see her client reporting associate today outpatient. The patient decided to come to the emergency department from her [facility] facility to be evaluated for this worsening abdominal pain. Pain Scale: 8 - Related Data Home Medications Medication Instructions Recorded Confirmed Cyclosporine [Restasis] 1 drop BOTH EYES BID 04/30/15 03/29/18 Isosorbide MONOnitrate [Isosorbide 60 mg PO DAILY 04/30/15 03/29/18 Mononitrate ER] Potassium Chloride 20 meq PO DAILY 06/19/16 03/29/18 Calcitriol [Rocaltrol] 0.25 mcg PO DAILY 03/20/17 03/29/18 Loratadine [Claritin] 10 mg PO DAILY 07/20/17 03/29/18 Albuterol Sulfate [Albuterol 2 puff IH Q4HR PRN 08/27/17 03/29/18 Inhaler] Atorvastatin Calcium [Lipitor] 20 mg PO HS 10/06/17 03/29/18 Esomeprazole Magnesium [Nexium] 40 mg PO DAILY 10/06/17 03/29/18 Amiodarone [Cordarone] 200 mg PO DAILY 11/28/17 03/29/18 Acetaminophen [Tylenol] 650 mg PO Q4HR PRN 02/11/18 03/29/18 GuaiFENesin Liq [Robitussin Liq] 200 mg PO Q4HR PRN 02/11/18 03/29/18 Furosemide [Lasix] 40 mg PO DAILY 03/09/18 03/29/18 Quetiapine Fumarate [Seroquel] 50 mg PO HS 03/09/18 03/29/18 Loperamide [Imodium] 2 mg PO Q6H PRN 03/29/18 03/29/18 Ondansetron [Zofran] 8 mg PO Q6H PRN 03/29/18 03/29/18 Oxycodone HCl [Oxaydo] 5 mg PO QID PRN 03/29/18 03/29/18 Previous Rx's Medication Instructions Recorded Aspirin Enteric Coated [Aspirin EC] 81 mg PO DAILY tablet. 11/02/17 Docusate [Colace] 100 mg PO BID PRN capsule 12/02/17 Fluticasone Propionate Nasal 50 mcg NS DAILY bottle 12/02/17 [Flonase] Ipratropium/Albuterol Neb [Duoneb] 3 ml IH [id number] PRN 30 Days inhsol 12/02/17 Metoprolol [Lopressor] 50 mg PO BID tablet 12/02/17 Budesonide/Formoterol 160/4.5 2 puff IH BIDR 30 Days #30 inhaler 03/15/18 [Symbicort 160/4.5] Allergies Allergy/AdvReac Type Severity Reaction Status Date / Time ciprofloxacin [From Cipro] Allergy Hives Verified 02/11/18 14:06 meperidine [From Demerol] AdvReac Vomiting Verified 02/11/18 14:06 All systems ED: reviewed and negative except as stated. Constitutional: Reports: chills, weakness. Denies: fever ENT ED: Denies: ear pain Cardiovascular: Denies: chest pain Respiratory: Denies: dyspnea Gastrointestinal: Reports: abdominal pain. Denies: nausea, vomiting, diarrhea, constipation, hematemesis, melena Genitourinary: Denies: urgency, dysuria, frequency Musculoskeletal: Reports: back pain. Denies: neck pain, arthralgia, myalgia Integumentary: Denies: rash Neurological: Reports: weakness. Denies: headache Abdominal Pain PMH - Past Medical History Medical history: Reports: arthritis, asthma, atrial fibrillation, CHF, COPD, GERD, hyperlipidemia, hypertension, osteoporosis, renal disease, venous stasis, valvular heart disease, other Female Surgical History: Reports: appendectomy CRATE LINER history: Reports: no CRATE LINER history Psychiatric history: Reports: anxiety, depression - Social History Smoking status: Never smoker Alcohol use: Reports: none Drug use: Reports: none Physical Exam - General Limitations: physical limitation (Patient is blind at baseline) General appearance: alert, in no apparent distress - Head Head exam: atraumatic, normocephalic, normal inspection - Eye Eye exam: Present: normal appearance, PERRL, EOMI - ENT ENT exam: normal exam, normal oropharynx, mucous membranes moist - Neck Neck exam: Present: normal inspection, full ROM, trachea midline - Chest Chest inspection: Present: normal inspection, symmetric chest wall rise - Respiratory Respiratory exam: Present: normal lung sounds bilaterally - Cardiovascular Cardiovascular exam: Present: regular rate, irregular rhythm, normal heart sounds - Abdominal Exam Abdominal exam: Present: tenderness (Diffuse), distention, incision (intact without erythema, large amount of ecchymosis). Absent: guarding, rebound, rigidity - Extremities Exam Extremities exam: Present: full ROM, pedal edema (1+). Absent: tenderness - Neurological Exam Neurological exam: Present: alert, oriented X3 - Skin Skin exam: Present: warm, dry, intact, normal color Course Vital Signs Temperature 97.6 F 03/29/18 11:41 Pulse Rate 90 03/29/18 11:41 Respiratory Rate 18 03/29/18 11:41 Blood Pressure 110/72 03/29/18 11:41 O2 Sat by Pulse Oximetry 100 03/29/18 11:41 Temperature 97.6 F 03/29/18 11:41 Pulse Rate 92 03/29/18 15:04 Respiratory Rate 18 03/29/18 15:04 Blood Pressure 110/68 03/29/18 15:04 O2 Sat by Pulse Oximetry 100 03/29/18 15:04 Oxygen Delivery Oxygen Delivery Nasal Cannula Abdominal Pain - MDM Narrative Medical decision making narrative: Patient's lab work did not treats a leukocytosis. Physical exam demonstrates ecchymosis of her abdomen. There is increased amount of free fluid in her belly but no increase in blood. A subacute blood that was noted within her belly is less than previously. The patient is resting comfortably at this time. The patient does have a urinary tract infection on lab work as well. The patient was given 1 g or Rocephin here in the emergency department. Surgical consult was placed due to abdominal pain and status post surgery. The patient will be admitted to the hospital at this time, accepted by Dr. Banerjee. - Medical Records Medical records reviewed: Yes I reviewed the patient's medical records. - Lab Data Lab results reviewed: Yes I reviewed the patient's lab results. Result diagrams: 03/29/18 12:28 03/29/18 12:28 Lab Results 03/29/18 03/29/18 03/29/18 Range/Units 12:28 12:28 12:28 WBC 12.7 H (4.3-11.1) K/mcL RBC 3.52 L (3.82-4.97) M/mcL Hgb 10.4 L (11.5-15.4) g/dL Hct 31.7 L (35.3-44.9) % MCV 90.1 (83.0-100.0) fL MCH 29.5 (28.0-33.3) pg MCHC 32.8 (31.6-35.5) g/dL RDW 16.8 H (11.5-14.5) % Plt Count 276 (140-400) K/mcL MPV 9.6 (9.4-12.4) fL Immature Gran % 1.9 (0-4) % Seg Neutrophils % 86.1 % Lymphocytes % 5.1 % Monocytes % 5.9 % Eosinophils % 0.9 % Basophils % 0.1 % Neutrophils # 10.9 H (1.6-8.9) K/mcL Lymphocytes # 0.6 (0.6-4.6) K/mcL Monocytes # 0.8 (0.0-1.3) K/mcL Eosinophils # 0.1 (0.0-0.6) K/mcL Basophils # 0.0 (0.0-0.2) K/mcL Nucleated RBCs/100 WBC 0.2 H (0) /100 WBC Sodium 133 L (136-145) mEq/L Potassium 5.0 (3.5-5.1) mEq/L Chloride 105 (98-107) mEq/L Carbon Dioxide 19 L (23-29) mEq/L BUN 51 H (8-23) mg/dL Creatinine 2.71 H (0.60-1.20) mg/dL Est GFR ( Amer) 21 L (> 60) Est GFR (Non-Af Amer) 17 L (> 60) BUN/Creatinine Ratio 19 (6-26) Glucose 99 (70-105) mg/dL Calculated Osmolality 290 (280-300) Calcium 8.4 L (8.6-10.3) mg/dL Total Bilirubin 0.7 (0.3-1.0) mg/dL AST 16 (13-39) Units/L ALT 10 (7-52) Units/L Alkaline Phosphatase 98 (34-104) Units/L Troponin I 0.03 (< 0.04) ng/mL B-Natriuretic Peptide 379 H (Less than 100) pg/mL Serum Total Protein 5.6 L (6.4-8.9) g/dL Albumin 2.5 L (3.5-5.7) g/dL Globulin 3.1 (2.4-3.5) g/dL Albumin/Globulin Ratio 0.8 L (1.1-2.2) Urine Color (Yellow) Urine Clarity (Clear) Urine pH (5.0-8.0) pH Units Ur Specific [place] (1.010-1.025) Urine Protein (Neg-Trace) mg/dL Urine Glucose (UA) (Normal) mg/dL Urine Ketones (Negative) mg/dL Urine Blood (Negative) Urine Nitrite (Negative) Urine Bilirubin (Negative) Urine Urobilinogen (Normal) mg/dL Ur Leukocyte Esterase (Negative) Urine Microscopic RBC (0-3) per hpf Urine Microscopic WBC (0-3) per hpf Ur Squamous Epith Cells (None-Few) per lpf Ur Transition Epith Cell (None-Few) per hpf Ur Renal Epithelial Cell (None-Few) per hpf Urine Bacteria (None-Few) per hpf Urine Yeast (None Seen) per hpf Ur Culture Indicated? (NO) 03/29/18 Range/Units 12:44 WBC (4.3-11.1) K/mcL RBC (3.82-4.97) M/mcL Hgb (11.5-15.4) g/dL Hct (35.3-44.9) % MCV (83.0-100.0) fL MCH (28.0-33.3) pg MCHC (31.6-35.5) g/dL RDW (11.5-14.5) % Plt Count (140-400) K/mcL MPV (9.4-12.4) fL Immature Gran % (0-4) % Seg Neutrophils % % Lymphocytes % % Monocytes % % Eosinophils % % Basophils % % Neutrophils # (1.6-8.9) K/mcL Lymphocytes # (0.6-4.6) K/mcL Monocytes # (0.0-1.3) K/mcL Eosinophils # (0.0-0.6) K/mcL Basophils # (0.0-0.2) K/mcL Nucleated RBCs/100 WBC (0) /100 WBC Sodium (136-145) mEq/L Potassium (3.5-5.1) mEq/L Chloride (98-107) mEq/L Carbon Dioxide (23-29) mEq/L BUN (8-23) mg/dL Creatinine (0.60-1.20) mg/dL Est GFR ( Amer) (> 60) Est GFR (Non-Af Amer) (> 60) BUN/Creatinine Ratio (6-26) Glucose (70-105) mg/dL Calculated Osmolality (280-300) Calcium (8.6-10.3) mg/dL Total Bilirubin (0.3-1.0) mg/dL AST (13-39) Units/L ALT (7-52) Units/L Alkaline Phosphatase (34-104) Units/L Troponin I (< 0.04) ng/mL B-Natriuretic Peptide (Less than 100) pg/mL Serum Total Protein (6.4-8.9) g/dL Albumin (3.5-5.7) g/dL Globulin (2.4-3.5) g/dL Albumin/Globulin Ratio (1.1-2.2) Urine Color Yellow (Yellow) Urine Clarity Turbid A (Clear) Urine pH 5.0 (5.0-8.0) pH Units Ur Specific [place] 1.016 (1.010-1.025) Urine Protein Negative (Neg-Trace) mg/dL Urine Glucose (UA) Normal (Normal) mg/dL Urine Ketones Negative (Negative) mg/dL Urine Blood Small H (Negative) Urine Nitrite Positive A (Negative) Urine Bilirubin Negative (Negative) Urine Urobilinogen Normal (Normal) mg/dL Ur Leukocyte Esterase Large H (Negative) Urine Microscopic RBC Present (0-3) per hpf Urine Microscopic WBC TNTC H (0-3) per hpf Ur Squamous Epith Cells Many H (None-Few) per lpf Ur Transition Epith Cell Present (None-Few) per hpf Ur Renal Epithelial Cell Present (None-Few) per hpf Urine Bacteria Many H (None-Few) per hpf Urine Yeast Present H (None Seen) per hpf Ur Culture Indicated? NO. A (NO) - Radiology Data Radiology results reviewed: Yes I reviewed the patient's radiology results. Abdomen/Pelvis CT 03/29/18 11:48 IMPRESSION: 1. Moderate volume of fluid in the pelvis and along the mesentery with subacute blood. The volume of blood has slightly decreased compared to the exam of March 11, 2018. The volume of fluid has increased. 2. Circumferential subcutaneous edema. Please correlate with clinical symptoms of anasarca. 3. Status post cholecystectomy, hysterectomy, and appendectomy. 4. Atrophic left kidney. 5. Calcified pleural plaques in the left hemithorax suggestive of prior asbestos exposure. Stable loculated 5.2 x 0.9 cm fluid collection along the left anterior hemithorax. D/ / 03/29/2018 12:40:39 Pepito Cruz MD / deepali Interpreting Provider: Pepito Cruz MD Chest X-Ray 03/29/18 12:01 IMPRESSION: 1. Stable chest demonstrating cardiomegaly without evidence of failure. 2. Chronic left pleural thickening versus loculated pleural effusion. 3. Bilateral lung parenchymal scarring. D/ / Brian Coto MD / Brian Coto MD Interpreting Provider: Brian Coto MD - EKG Data EKG attestation: Yes I reviewed and interpreted this EKG. EKG results narrative: Heart rate [address]pm[address]. No ST elevation or ST depression noted. No acute changes noted.
[2018-03-29 12:52] LABS: Basophils % 0.1 %; Eosinophils # 0.1 K/mcL (0.0-0.6); Eosinophils % 0.9 %; Hematocrit 31.7 % (35.3-44.9); Hemoglobin 10.4 g/dL (11.5-15.4); Immature Granulocytes % 1.9 % (0-4); Lymphocytes # 0.6 K/mcL (0.6-4.6); Lymphocytes % 5.1 %; Mean Corpuscular HGB Conc 32.8 g/dL (31.6-35.5); Mean Corpuscular Hemoglobin 29.5 pg (28.0-33.3); Mean Corpuscular Volume 90.1 fL (83.0-100.0); Mean Platelet Volume 9.6 fL (9.4-12.4); Monocytes # 0.8 K/mcL (0.0-1.3); Monocytes % 5.9 %; Neutrophils # 10.9 K/mcL (1.6-8.9); Nucleated Red Blood Cells 0.2 /100 WBC (0); Platelet Count 276 K/mcL (140-400); Red Blood Count 3.52 M/mcL (3.82-4.97); Red Cell Distribution Width 16.8 % (11.5-14.5); Segmented Neutrophils % 86.1 %
[2018-03-29 13:10] LABS: Bilirubin,Urine Negative (Negative); Blood,Urine Small (Negative); Clarity,Urine Turbid (Clear); Color,Urine Yellow (Yellow); Glucose,Urine (UA) Normal (Normal); Ketones,Urine Negative (Negative); Leukocyte Esterase,Urine Large (Negative); Nitrite,Urine Positive (Negative); Protein,Urine Negative (Neg-Trace); Specific Gravity,Urine 1.016 (1.010-1.025); Urobilinogen,Urine Normal (Normal)
[2018-03-29 13:14] LABS: Bacteria,Urine Many per hpf (None-Few); Squamous Epithelial Cell,Urine Many per lpf (None-Few); WBC,Urine TNTC per hpf (0-3)
[2018-03-29 13:26] LABS: Troponin I 0.03 ng/mL (< 0.04)
[2018-03-29 13:29] LABS: RBC,Urine Present per hpf (0-3); Yeast,Urine Present per hpf (None Seen)
[2018-03-29 13:30] LABS: Renal Epithelial Cells,Urine Present per hpf (None-Few); Transitional Epi Cells,Urine Present per hpf (None-Few)
[2018-03-29] MEDS ORDERED: cefTRIAXone 1,000 MG in Water for inj. (sterile) 20 ML 10 ML IVP ONE (14:02)
--- NOTE | 2018-03-29 14:16 | Emergency Department Note ---
Disposition Clinical Impression: UTI (urinary tract infection) Qualifiers: Urinary tract infection type: site unspecified Hematuria presence: with hematuria Qualified Code(s): N39.0 - Urinary tract infection, site not specified ; R31.9 - Hematuria, unspecified Disposition: Admitted As Inpatient Forms: ED Satisfaction Letter, Work/School Release General Adult HPI - General Chief complaint: ED Abdominal Pain Stated complaint: Abdominal Pain Time Seen by Provider: 03/29/18 11:44 Source: patient Mode of arrival: ambulatory Limitations: physical limitation (Patient is blind at baseline) - History of Present Illness Pain Scale: 9 - Related Data Home Medications Medication Instructions Recorded Confirmed Cyclosporine [Restasis] 1 drop BOTH EYES BID 04/30/15 03/09/18 Isosorbide MONOnitrate [Isosorbide 60 mg PO DAILY 04/30/15 03/09/18 Mononitrate ER] Potassium Chloride 20 meq PO DAILY 06/19/16 03/09/18 Calcitriol [Rocaltrol] 0.25 mcg PO DAILY 03/20/17 03/09/18 Fluticasone/Vilanterol [Breo 1 each IH DAILY 07/20/17 03/09/18 Ellipta 100-25 Mcg INH] Loratadine [Claritin] 10 mg PO DAILY 07/20/17 03/09/18 Nystatin POWDER [Nystop] 1 appl TP BID 07/20/17 03/09/18 Albuterol Sulfate [Albuterol 2 puff IH Q4HR PRN 08/27/17 03/09/18 Inhaler] Atorvastatin Calcium [Lipitor] 20 mg PO HS 10/06/17 03/09/18 Esomeprazole Magnesium [Nexium] 40 mg PO DAILY 10/06/17 03/09/18 Amiodarone [Cordarone] 200 mg PO DAILY 11/28/17 03/09/18 Acetaminophen [Tylenol] 650 mg PO Q4HR PRN 02/11/18 03/09/18 GuaiFENesin Liq [Robitussin Liq] 200 mg PO Q4HR PRN 02/11/18 03/09/18 Furosemide [Lasix] 40 mg PO DAILY 03/09/18 03/09/18 Quetiapine Fumarate [Seroquel] 50 mg PO HS 03/09/18 03/09/18 Previous Rx's Medication Instructions Recorded Aspirin Enteric Coated [Aspirin EC] 81 mg PO DAILY tablet. 11/02/17 Docusate [Colace] 100 mg PO BID PRN capsule 12/02/17 Fluticasone Propionate Nasal 50 mcg NS DAILY bottle 12/02/17 [Flonase] Ipratropium/Albuterol Neb [Duoneb] 3 ml IH [id number] PRN 30 Days inhsol 12/02/17 Metoprolol [Lopressor] 50 mg PO BID tablet 12/02/17 Amoxicillin/Clavulanate [Augmentin] 875 mg PO BIDWM 5 Days #10 tablet 03/15/18 Budesonide/Formoterol 160/4.5 2 puff IH BIDR 30 Days #30 inhaler 03/15/18 [Symbicort 160/4.5] Allergies Allergy/AdvReac Type Severity Reaction Status Date / Time ciprofloxacin [From Cipro] Allergy Hives Verified 02/11/18 14:06 meperidine [From Demerol] AdvReac Vomiting Verified 02/11/18 14:06 Constitutional: Reports: chills, weakness. Denies: fever ENT ED: Denies: ear pain Cardiovascular: Denies: chest pain Respiratory: Denies: dyspnea Gastrointestinal: Reports: abdominal pain. Denies: nausea, vomiting, diarrhea, constipation, hematemesis, melena Genitourinary: Denies: urgency, dysuria, frequency Musculoskeletal: Reports: back pain. Denies: neck pain, arthralgia, myalgia Integumentary: Denies: rash Neurological: Reports: weakness. Denies: headache Past Medical History - Past Medical History Medical history: Reports: arthritis, asthma, atrial fibrillation, CHF, COPD, GERD, hyperlipidemia, hypertension, osteoporosis, renal disease, venous stasis, valvular heart disease, other Surgical history: Reports: cataract, cholecystectomy, heart valve replacement, herniorrhaphy, hysterectomy, knee replacement, orthopedic, other, sinus surgery , other Psychiatric history: Reports: anxiety, depression WARP STARTER history: Reports: no WARP STARTER history - Social History Smoking Status: Never smoker Smokeless Tobacco Status: No Alcohol use: Reports: none Drug use: Reports: none Physical Exam - General Limitations: physical limitation (Patient is blind at baseline) General appearance: alert, in no apparent distress Course Vital Signs Temperature 97.6 F 03/29/18 11:41 Pulse Rate 90 03/29/18 11:41 Respiratory Rate 18 03/29/18 11:41 Blood Pressure 110/72 03/29/18 11:41 O2 Sat by Pulse Oximetry 100 03/29/18 11:41 Temperature 97.6 F 03/29/18 11:41 Pulse Rate 90 03/29/18 14:04 Respiratory Rate 16 03/29/18 14:04 Blood Pressure 115/78 03/29/18 14:04 O2 Sat by Pulse Oximetry 100 03/29/18 14:04 Oxygen Delivery Oxygen Delivery Nasal Cannula Medical Decision Making - Lab Data Result diagrams: 03/29/18 12:28 Lab Results 03/29/18 03/29/18 03/29/18 Range/Units 12:28 12:28 12:28 WBC 12.7 H (4.3-11.1) K/mcL RBC 3.52 L (3.82-4.97) M/mcL Hgb 10.4 L (11.5-15.4) g/dL Hct 31.7 L (35.3-44.9) % MCV 90.1 (83.0-100.0) fL MCH 29.5 (28.0-33.3) pg MCHC 32.8 (31.6-35.5) g/dL RDW 16.8 H (11.5-14.5) % Plt Count 276 (140-400) K/mcL MPV 9.6 (9.4-12.4) fL Immature Gran % 1.9 (0-4) % Seg Neutrophils % 86.1 % Lymphocytes % 5.1 % Monocytes % 5.9 % Eosinophils % 0.9 % Basophils % 0.1 % Neutrophils # 10.9 H (1.6-8.9) K/mcL Lymphocytes # 0.6 (0.6-4.6) K/mcL Monocytes # 0.8 (0.0-1.3) K/mcL Eosinophils # 0.1 (0.0-0.6) K/mcL Basophils # 0.0 (0.0-0.2) K/mcL Nucleated RBCs/100 WBC 0.2 H (0) /100 WBC Troponin I 0.03 (< 0.04) ng/mL B-Natriuretic Peptide 379 H (Less than 100) pg/mL Urine Color (Yellow) Urine Clarity (Clear) Urine pH (5.0-8.0) pH Units Ur Specific [place] (1.010-1.025) Urine Protein (Neg-Trace) mg/dL Urine Glucose (UA) (Normal) mg/dL Urine Ketones (Negative) mg/dL Urine Blood (Negative) Urine Nitrite (Negative) Urine Bilirubin (Negative) Urine Urobilinogen (Normal) mg/dL Ur Leukocyte Esterase (Negative) Urine Microscopic RBC (0-3) per hpf Urine Microscopic WBC (0-3) per hpf Ur Squamous Epith Cells (None-Few) per lpf Ur Transition Epith Cell (None-Few) per hpf Ur Renal Epithelial Cell (None-Few) per hpf Urine Bacteria (None-Few) per hpf Urine Yeast (None Seen) per hpf Ur Culture Indicated? (NO) 03/29/18 Range/Units 12:44 WBC (4.3-11.1) K/mcL RBC (3.82-4.97) M/mcL Hgb (11.5-15.4) g/dL Hct (35.3-44.9) % MCV (83.0-100.0) fL MCH (28.0-33.3) pg MCHC (31.6-35.5) g/dL RDW (11.5-14.5) % Plt Count (140-400) K/mcL MPV (9.4-12.4) fL Immature Gran % (0-4) % Seg Neutrophils % % Lymphocytes % % Monocytes % % Eosinophils % % Basophils % % Neutrophils # (1.6-8.9) K/mcL Lymphocytes # (0.6-4.6) K/mcL Monocytes # (0.0-1.3) K/mcL Eosinophils # (0.0-0.6) K/mcL Basophils # (0.0-0.2) K/mcL Nucleated RBCs/100 WBC (0) /100 WBC Troponin I (< 0.04) ng/mL B-Natriuretic Peptide (Less than 100) pg/mL Urine Color Yellow (Yellow) Urine Clarity Turbid A (Clear) Urine pH 5.0 (5.0-8.0) pH Units Ur Specific [place] 1.016 (1.010-1.025) Urine Protein Negative (Neg-Trace) mg/dL Urine Glucose (UA) Normal (Normal) mg/dL Urine Ketones Negative (Negative) mg/dL Urine Blood Small H (Negative) Urine Nitrite Positive A (Negative) Urine Bilirubin Negative (Negative) Urine Urobilinogen Normal (Normal) mg/dL Ur Leukocyte Esterase Large H (Negative) Urine Microscopic RBC Present (0-3) per hpf Urine Microscopic WBC TNTC H (0-3) per hpf Ur Squamous Epith Cells Many H (None-Few) per lpf Ur Transition Epith Cell Present (None-Few) per hpf Ur Renal Epithelial Cell Present (None-Few) per hpf Urine Bacteria Many H (None-Few) per hpf Urine Yeast Present H (None Seen) per hpf Ur Culture Indicated? NO. A (NO) Attestation Statement - Attestation Attestation: I examined this patient and my medical decision-making was reviewed with the Resident Physician. I agree with the documented findings, disposition and treatment plan as described except to the extent set forth below. 72 year old female presnet to the ED with complants of abdominal pain s/o appendectomy per Dr. Jimenez and has CHF and appears to have volume overload as well althugh she is not dypsneic or hypoxic and no crackles. PAtint appears to also have a UTI. CT confris in subactue bleed but increase in fluid and her BP is stable. We will treat her with Rocephin and consult with surgery after labs and then admit to medicine.
[2018-03-29 15:13] LABS: Albumin 2.5 g/dL (3.5-5.7); Albumin/Globulin Ratio 0.8 (1.1-2.2); Bilirubin,Total 0.7 mg/dL (0.3-1.0); Calcium 8.4 mg/dL (8.6-10.3); Globulin 3.1 g/dL (2.4-3.5); Total Protein 5.6 g/dL (6.4-8.9)
--- NOTE | 2018-03-29 16:14 | Internal Med History&Physical ---
Date of Encounter: 03/29/18 Time of Encounter: 16:14 Internal Medicine - H&P: HPI Chief complaint: Abdominal pain History of present illness: Ms. Barber is a 72 year old female with recent history of appendectomy roughly 2 weeks ago with postop complication due to postoperative bleeding with the patient received 3 units of blood and became hypotensive who presented with abdominal pain that is persistent since surgery. The pain is dull aching in character and localized in the right lower quadrant radiating posteriorly into her back and right flank as well to her left lower quadrant. She denies any fevers but admits to chills. She denies any nausea, vomiting, dysuria. CT scan of the abdomen revealed Moderate volume of fluid in the pelvis and along the mesentery with subacute blood. The volume of blood has slightly decreased compared to the exam of March 11, 2018. The volume of fluid has increased. Surgery was consulted and they stated that the finding were similar to last exam and patient is showing some improvement. Laboratory data revealed a UTI and patient was admitted for further evaluation and management Past Med Surg Social Fam HX - Past Medical History Medical history: arthritis, asthma, atrial fibrillation, CHF, COPD, GERD, hyperlipidemia, hypertension, osteoporosis, renal disease, venous stasis, valvular heart disease, other Additional medical history: blind Psychiatric history: anxiety, depression - Past Surgical History Surgical History: cataract, cholecystectomy, heart valve replacement, herniorrhaphy, hysterectomy, knee replacement, orthopedic, other, sinus surgery , other Additional surgical history: lung surgery - right pleurodesis secondary to pleural effusions after cardiac surgery. "Ross" heart procedure- 1994 [facility] - Social History Smoking Status: Never smoker Smokeless Tobacco Status: No Alcohol use: none Drug use: none - Family History Father Family Member Ethnicity: Non- Living Status: Hx Family Cardiac Disorders: Yes (HD, Pig valve, HD) Hx Family Cancer: Yes (Cancer on lip) Hx Family GI Disorders: Yes (CKD) Hx Family Endocrine Disorder: Yes (Gallstones) Sister Family Member Ethnicity: Non- Living Status: Hx Family Endocrine Disorder: Yes (DM) Mother Living Status: Hx Family Cardiac Disorders: Yes (HD, Anemia) Internal Medicine - H&P: Meds Cyclosporine [Restasis] 1 drop BOTH EYES BID 04/30/15 [History] Potassium Chloride 20 meq PO DAILY 06/19/16 [History] Calcitriol [Rocaltrol] 0.25 mcg PO DAILY 03/20/17 [History] Loratadine [Claritin] 10 mg PO DAILY 07/20/17 [History] Albuterol Sulfate [Albuterol Inhaler] 2 puff IH Q4HR PRN 08/27/17 [History] Atorvastatin Calcium [Lipitor] 20 mg PO HS 10/06/17 [History] Esomeprazole Magnesium [Nexium] 40 mg PO DAILY 10/06/17 [History] Aspirin Enteric Coated [Aspirin EC] 81 mg PO DAILY tablet. 11/02/17 [Rx] Amiodarone [Cordarone] 200 mg PO DAILY 11/28/17 [History] Docusate [Colace] 100 mg PO BID PRN capsule 12/02/17 [Rx] Fluticasone Propionate Nasal [Flonase] 50 mcg NS DAILY bottle 12/02/17 [Rx] Metoprolol [Lopressor] 50 mg PO BID tablet 12/02/17 [Rx] Acetaminophen [Tylenol] 650 mg PO Q4HR PRN 02/11/18 [History] GuaiFENesin Liq [Robitussin Liq] 200 mg PO Q4HR PRN 02/11/18 [History] Furosemide [Lasix] 40 mg PO DAILY 03/09/18 [History] Quetiapine Fumarate [Seroquel] 50 mg PO HS 03/09/18 [History] Budesonide/Formoterol 160/4.5 [Symbicort 160/4.5] 2 puff IH BIDR 30 Days #30 inhaler 03/15/18 [Rx] Fluticasone/Vilanterol [Breo Ellipta 100-25 Mcg INH] 1 puff IH DAILY 03/29/18 [ History] Isosorbide MONOnitrate (24 HR) [Imdur] 60 mg PO DAILY 03/29/18 [History] Loperamide [Imodium] 2 mg PO Q6H PRN 03/29/18 [History] Ondansetron [Zofran] 8 mg PO Q6H PRN 03/29/18 [History] Oxycodone HCl [Oxaydo] 5 mg PO QID PRN 03/29/18 [History] 3 Allergy/AdvReac Type Severity Reaction Status Date / Time ciprofloxacin [From Cipro] Allergy Hives Verified 03/29/18 21:41 meperidine [From Demerol] AdvReac Vomiting Verified 03/29/18 21:41 All Systems PM: A 10-system review of systems was performed and is negative for pertinent findings except as documented above in the HPI. - Constitutional Constitutional: no chills, no fever(s), no night sweats - Cardiovascular Cardiovascular ROS IM: no chest pain, no diaphoresis, no dyspnea, no lightheadedness, no palpitations, no syncope - Respiratory Respiratory: no cough, no dyspnea, no wheezing, no excessive phlegm production - Gastrointestinal Gastrointestinal: abdominal pain, no diarrhea, no hematemesis, no hematochezia, no melena, no nausea, no vomiting - Genitourinary Genitourinary: as per HPI - Neurological Neurological ROS: no confusion, no convulsions, no focal weakness, no numbness, no tingling, no tremor(s) - Constitutional Vitals: Temp Pulse Resp BP Pulse Ox 97.6 F 87 18 116/85 99 03/29/18 11:41 03/29/18 15:51 03/29/18 15:51 03/29/18 15:51 03/29/18 15:51 General appearance: Present: A&O X 3 - Neck Neck exam general surgery: Present: supple, trachea midline. Absent: lymphadenopathy - Respiratory Respiratory exam: Present: CTAB. Absent: accessory muscle use, rales, rhonchi, wheezes - Cardiovascular Cardiovascular exam: Present: RRR, +S1, +S2. Absent: diastolic murmur, gallop, rubs, systolic murmur - GI/Abdominal GI/Abdominal exam: Present: normal bowel sounds, soft, no peritoneal signs. Absent: distended, tenderness - Extremities Exam Extremities exam: Present: warm, radial pulses palpable and symmetrical. Absent : calf tenderness, cyanotic, pedal edema Internal Med - H&P Results - Labs CBC & Chem 7: 03/29/18 12:28 03/29/18 12:28 Labs: Short CBC 03/29/18 Range/Units 12:28 WBC 12.7 H (4.3-11.1) K/mcL Hgb 10.4 L (11.5-15.4) g/dL Hct 31.7 L (35.3-44.9) % Plt Count 276 (140-400) K/mcL Neutrophils # 10.9 H (1.6-8.9) K/mcL BMP 03/29/18 12:28 Sodium 133 L Potassium 5.0 Chloride 105 Carbon Dioxide 19 L BUN 51 H Creatinine 2.71 H Glucose 99 Calcium 8.4 L Cardiac Enzymes 03/29/18 Range/Units 12:28 Troponin I 0.03 (< 0.04) ng/mL Liver Function 03/29/18 Range/Units 12:28 Total Bilirubin 0.7 (0.3-1.0) mg/dL AST 16 (13-39) Units/L ALT 10 (7-52) Units/L Alkaline Phosphatase 98 (34-104) Units/L Albumin 2.5 L (3.5-5.7) g/dL Urine 03/29/18 Range/Units 12:44 Urine Color Yellow (Yellow) Urine Clarity Turbid A (Clear) Urine pH 5.0 (5.0-8.0) pH Units Ur Specific [place] 1.016 (1.010-1.025) Urine Protein Negative (Neg-Trace) mg/dL Urine Glucose (UA) Normal (Normal) mg/dL - Impressions ITS Impressions Abdomen/Pelvis CT 03/29/18 11:48 IMPRESSION: 1. Moderate volume of fluid in the pelvis and along the mesentery with subacute blood. The volume of blood has slightly decreased compared to the exam of March 11, 2018. The volume of fluid has increased. 2. Circumferential subcutaneous edema. Please correlate with clinical symptoms of anasarca. 3. Status post cholecystectomy, hysterectomy, and appendectomy. 4. Atrophic left kidney. 5. Calcified pleural plaques in the left hemithorax suggestive of prior asbestos exposure. Stable loculated 5.2 x 0.9 cm fluid collection along the left anterior hemithorax. D/ / 03/29/2018 12:40:39 Pepito Cruz MD / [facility] Interpreting Provider: Pepito Cruz MD Chest X-Ray 03/29/18 12:01 IMPRESSION: 1. Stable chest demonstrating cardiomegaly without evidence of failure. 2. Chronic left pleural thickening versus loculated pleural effusion. 3. Bilateral lung parenchymal scarring. D/ / Brian Coto MD / Brian Coto MD Interpreting Provider: Brian Coto MD - Assessment and plan (1) UTI (urinary tract infection) Current Visit: Yes Status: Acute Assessment and plan: The patient was started and antibiotics with ceftriaxone, urine culture were obtained. We will follow up on culture result and adjust antibiotic accordingly Qualifiers: Urinary tract infection type: site unspecified Hematuria presence: with hematuria Qualified Code(s): N39.0 - Urinary tract infection, site not specified; R31.9 - Hematuria, unspecified (2) Chronic kidney disease, stage IV (severe) Current Visit: Yes Status: Acute Assessment and plan: Patient creatinine appears to be at baseline, we will continue to monitor renal function, renal dosing of medication, strict I&O's (3) Hypertension Current Visit: No Status: Chronic Assessment and plan: We will continue home antihypertensive and adjust regimen if indicated Qualifiers: Hypertension type: essential hypertension Qualified Code(s): I10 - Essential (primary) hypertension (4) Atrial fibrillation Current Visit: Yes Status: Chronic Assessment and plan: The patient not an anticoagulation, she is in aspirin, we will continue home meds Qualifiers: Atrial fibrillation type: chronic Qualified Code(s): I48.2 - Chronic atrial fibrillation (5) Anemia Current Visit: No Status: Acute Assessment and plan: Hemoglobin is stable, will continue to monitor H&H Qualifiers: Anemia type: other cause Other causes of anemia: acute posthemorrhagic Qualified Code(s): D62 - Acute posthemorrhagic anemia (6) Hyponatremia Current Visit: Yes Status: Acute Assessment and plan: Mild hyponatremia, most likely secondary to hypovolemia, patient started an IV hydration with isotonic fluid. (7) Metabolic acidosis Current Visit: Yes Status: Acute Assessment and plan: Most likely secondary to impaired kidney function, target bicarbonate is 22 we will start sodium bicarbonate, and consult nephrology to establish outpatient follow-up (8) DVT prophylaxis Current Visit: No Status: Acute Assessment and plan: We will start the patient on SCDs - Time Spent With Patient Total time spent is greater than 50% in coordination of care (as documented) at patient's floor/unit and/or counseling patient:
--- NOTE | 2018-03-29 16:39 | General Surgery Consult Note ---
<PariUrbanCorwin Maryam - Last Filed: 03/29/18 17:00> Date of Encounter: 03/29/18 Time of Encounter: 16:28 Assessment and Plan (1) Abdominal pain Current Visit: Yes Status: Acute Abdominal pain from previous surgery vs UTI or combination - At this point we do not recommend surgical intervention - Will continue to follow if needed - Hematoma from previous surgery is resolving Qualifiers: Abdominal location: lower abdomen, unspecified Qualified Code(s): R10.30 - Lower abdominal pain, unspecified (2) UTI (urinary tract infection) Current Visit: Yes Status: Acute Follow primary's plan of treatment Qualifiers: Urinary tract infection type: site unspecified Hematuria presence: with hematuria Qualified Code(s): N39.0 - Urinary tract infection, site not specified; R31.9 - Hematuria, unspecified (3) Abnormal CT of the abdomen Current Visit: No Status: Acute 1. Moderate volume of fluid in the pelvis and along the mesentery with subacute blood. The volume of blood has slightly decreased compared to the exam of March 11, 2018. The volume of fluid has increased. 2. Circumferential subcutaneous edema. Please correlate with clinical symptoms of anasarca. -Findings were similar to last exam and patient is showing some improvement History of Present Illness Consult date: 03/29/18 Reason for consult: abdominal pain History of present illness: Patient is a 72-year-old female who presented to the ED with abdominal pain and pain with urination. Patient is status post Appendectomy on 03/10/18. Also status post cholecystectomy, hysterectomy and cardiac valve repair. Patient has several comorbidities. Patient lives in a senior care facility. Patient states the pain with urination as lasted a few days and she has an increased urgency. Patient has abdominal pain and difficult when she gets up to move the pain is located in the right lower quadrant and the left lower quadrant. The pain is dull. It is relieved by laying still. The patient has not had any nausea vomiting from her last bowel movement was yesterday. White blood cell count is elevated at 12.7. H&H is low at 10.4 and 31.7% but this. The H&H appears to be similar to her baseline. CT abdomen and pelvis: "1. Moderate volume of fluid in the pelvis and along the mesentery with subacute blood. The volume of blood has slightly decreased compared to the exam of March 11, 2018. The volume of fluid has increased. 2. Circumferential subcutaneous edema. Please correlate with clinical symptoms of anasarca..." Past Med Surg Social Fam HX - Past Medical History Medical history: arthritis, asthma, atrial fibrillation, CHF, COPD, GERD, hyperlipidemia, hypertension, osteoporosis, renal disease, venous stasis, valvular heart disease, other Additional medical history: blind Psychiatric history: anxiety, depression - Past Surgical History Surgical History: cataract, cholecystectomy, heart valve replacement, herniorrhaphy, hysterectomy, knee replacement, orthopedic, other, sinus surgery , other Additional surgical history: lung surgery - right pleurodesis secondary to pleural effusions after cardiac surgery. "Ross" heart procedure- 1994 [facility] - Social History Smoking Status: Never smoker Smokeless Tobacco Status: No Alcohol use: none Drug use: none - Family History Father Family Member Ethnicity: Non- Living Status: Hx Family Cardiac Disorders: Yes (HD, Pig valve, HD) Hx Family Cancer: Yes (Cancer on lip) Hx Family GI Disorders: Yes (CKD) Hx Family Endocrine Disorder: Yes (Gallstones) Sister Family Member Ethnicity: Non- Living Status: Hx Family Endocrine Disorder: Yes (DM) Mother Living Status: Hx Family Cardiac Disorders: Yes (HD, Anemia) Medications and Allergies Cyclosporine [Restasis] 1 drop BOTH EYES BID 04/30/15 [History] Isosorbide MONOnitrate [Isosorbide Mononitrate ER] 60 mg PO DAILY 04/30/15 [ History] Potassium Chloride 20 meq PO DAILY 06/19/16 [History] Calcitriol [Rocaltrol] 0.25 mcg PO DAILY 03/20/17 [History] Loratadine [Claritin] 10 mg PO DAILY 07/20/17 [History] Albuterol Sulfate [Albuterol Inhaler] 2 puff IH Q4HR PRN 08/27/17 [History] Atorvastatin Calcium [Lipitor] 20 mg PO HS 10/06/17 [History] Esomeprazole Magnesium [Nexium] 40 mg PO DAILY 10/06/17 [History] Aspirin Enteric Coated [Aspirin EC] 81 mg PO DAILY tablet. 11/02/17 [Rx] Amiodarone [Cordarone] 200 mg PO DAILY 11/28/17 [History] Docusate [Colace] 100 mg PO BID PRN capsule 12/02/17 [Rx] Fluticasone Propionate Nasal [Flonase] 50 mcg NS DAILY bottle 12/02/17 [Rx] Ipratropium/Albuterol Neb [Duoneb] 3 ml IH [id number] PRN 30 Days inhsol 12/02/17 [Rx] Metoprolol [Lopressor] 50 mg PO BID tablet 12/02/17 [Rx] Acetaminophen [Tylenol] 650 mg PO Q4HR PRN 02/11/18 [History] GuaiFENesin Liq [Robitussin Liq] 200 mg PO Q4HR PRN 02/11/18 [History] Furosemide [Lasix] 40 mg PO DAILY 03/09/18 [History] Quetiapine Fumarate [Seroquel] 50 mg PO HS 03/09/18 [History] Budesonide/Formoterol 160/4.5 [Symbicort 160/4.5] 2 puff IH BIDR 30 Days #30 inhaler 03/15/18 [Rx] Loperamide [Imodium] 2 mg PO Q6H PRN 03/29/18 [History] Ondansetron [Zofran] 8 mg PO Q6H PRN 03/29/18 [History] Oxycodone HCl [Oxaydo] 5 mg PO QID PRN 03/29/18 [History] 3 Allergy/AdvReac Type Severity Reaction Status Date / Time ciprofloxacin [From Cipro] Allergy Hives Verified 02/11/18 14:06 meperidine [From Demerol] AdvReac Vomiting Verified 02/11/18 14:06 Review of Systems All systems PM: The remainder of the systems were reviewed and are negative - EENT Eyes: bilateral: loss of vision (retinitis pigmentosa) - Cardiovascular no chest pain at rest, no dyspnea on exertion - Respiratory no dyspnea on exertion - Gastrointestinal as per HPI - Genitourinary Genitourinary: dysuria, urinary frequency, urinary urgency General Surgery Exam Initial Vital Signs Temp Pulse Resp BP Pulse Ox 97.6 F 90 18 110/72 100 03/29/18 11:41 03/29/18 11:41 03/29/18 11:41 03/29/18 11:41 03/29/18 11:41 - General physical appearance obese - Eyes deviation - Respiratory normal expansion - Cardiovascular Cardiovascular exam: Present: RRR - Abdomen Abdomen general surgery: Present: bowel sounds present, tender, surgical scars Abdominal Tenderness: Present: RLQ, LLQ Exam Initial Vital Signs Temp Pulse Resp BP Pulse Ox 97.6 F 90 18 110/72 100 03/29/18 11:41 03/29/18 11:41 03/29/18 11:41 03/29/18 11:41 03/29/18 11:41 Results - Labs 03/29/18 12:28 03/29/18 12:28 Abnormal lab results WBC 12.7 K/mcL (4.3-11.1) H 03/29/18 12:28 RBC 3.52 M/mcL (3.82-4.97) L 03/29/18 12:28 Hgb 10.4 g/dL (11.5-15.4) L 03/29/18 12:28 Hct 31.7 % (35.3-44.9) L 03/29/18 12:28 RDW 16.8 % (11.5-14.5) H 03/29/18 12:28 Neutrophils # 10.9 K/mcL (1.6-8.9) H 03/29/18 12:28 Nucleated RBCs/100 WBC 0.2 /100 WBC (0) H 03/29/18 12:28 Sodium 133 mEq/L (136-145) L 03/29/18 12:28 Carbon Dioxide 19 mEq/L (23-29) L 03/29/18 12:28 BUN 51 mg/dL (8-23) H 03/29/18 12:28 Creatinine 2.71 mg/dL (0.60-1.20) H 03/29/18 12:28 Est GFR ( Amer) 21 (> 60) L 03/29/18 12:28 Est GFR (Non-Af Amer) 17 (> 60) L 03/29/18 12:28 Calcium 8.4 mg/dL (8.6-10.3) L 03/29/18 12:28 B-Natriuretic Peptide 379 pg/mL (Less than 100) H 03/29/18 12:28 Serum Total Protein 5.6 g/dL (6.4-8.9) L 03/29/18 12:28 Albumin 2.5 g/dL (3.5-5.7) L 03/29/18 12:28 Albumin/Globulin Ratio 0.8 (1.1-2.2) L 03/29/18 12:28 Urine Clarity Turbid (Clear) A 03/29/18 12:44 Urine Blood Small (Negative) H 03/29/18 12:44 Urine Nitrite Positive (Negative) A 03/29/18 12:44 Ur Leukocyte Esterase Large (Negative) H 03/29/18 12:44 Urine Microscopic WBC TNTC per hpf (0-3) H 03/29/18 12:44 Ur Squamous Epith Cells Many per lpf (None-Few) H 03/29/18 12:44 Urine Bacteria Many per hpf (None-Few) H 03/29/18 12:44 Urine Yeast Present per hpf (None Seen) H 03/29/18 12:44 Ur Culture Indicated? NO. (NO) A 03/29/18 12:44 Diabetes panel 03/29/18 Range/Units 12:28 Sodium 133 L (136-145) mEq/L Potassium 5.0 (3.5-5.1) mEq/L Chloride 105 (98-107) mEq/L Carbon Dioxide 19 L (23-29) mEq/L BUN 51 H (8-23) mg/dL Creatinine 2.71 H (0.60-1.20) mg/dL Glucose 99 (70-105) mg/dL Calcium 8.4 L (8.6-10.3) mg/dL AST 16 (13-39) Units/L ALT 10 (7-52) Units/L Alkaline Phosphatase 98 (34-104) Units/L Albumin 2.5 L (3.5-5.7) g/dL Calcium panel 03/29/18 Range/Units 12:28 Calcium 8.4 L (8.6-10.3) mg/dL Albumin 2.5 L (3.5-5.7) g/dL Pituitary panel 03/29/18 Range/Units 12:28 Sodium 133 L (136-145) mEq/L Potassium 5.0 (3.5-5.1) mEq/L Chloride 105 (98-107) mEq/L Carbon Dioxide 19 L (23-29) mEq/L BUN 51 H (8-23) mg/dL Creatinine 2.71 H (0.60-1.20) mg/dL Glucose 99 (70-105) mg/dL Calcium 8.4 L (8.6-10.3) mg/dL Adrenal panel 03/29/18 Range/Units 12:28 Sodium 133 L (136-145) mEq/L Potassium 5.0 (3.5-5.1) mEq/L Chloride 105 (98-107) mEq/L Carbon Dioxide 19 L (23-29) mEq/L BUN 51 H (8-23) mg/dL Creatinine 2.71 H (0.60-1.20) mg/dL Glucose 99 (70-105) mg/dL Calcium 8.4 L (8.6-10.3) mg/dL Total Bilirubin 0.7 (0.3-1.0) mg/dL AST 16 (13-39) Units/L ALT 10 (7-52) Units/L Alkaline Phosphatase 98 (34-104) Units/L Albumin 2.5 L (3.5-5.7) g/dL All other labs normal. Consult Discharge Plan - Plan Referrals: Lokesh Cooper MD [Primary Care Provider] - <Crystal Jimenez - Last Filed: 03/29/18 17:29> Date of Encounter: 03/29/18 Assessment and Plan (1) Abdominal pain Current Visit: Yes Status: Acute Hb has increased since previous admission labs CT results noted, will follow peripherally patient states tolerating diet and having appropriate bm's recommend diet no surgical intervention at this time Qualifiers: Abdominal location: lower abdomen, unspecified Qualified Code(s): R10.30 - Lower abdominal pain, unspecified (2) Abnormal CT of the abdomen Current Visit: No Status: Acute History of Present Illness Reason for consult: abdominal pain Requesting physician: Jose Rafael Head History of present illness: Patient is a 72 yo female known to me. She is status post laparoscopic appendectomy with postoperative mesenteric bleed on 03/10/18. She states she was having some RLQ abdominal pain upon discharge. The pain has not necessarily gone away. She has sharp, sometimes dull, RLQ and LLQ pain that occurs intermittently. The pain is mostly with movement. She denies pain when laying still. She has become very weak since her surgery. She had nausea and emesis a few days after getting home from the hospital but none since. Denies diarrhea and no bm today (calls it constipation). Patient has been having pain with urination but cannot tell me for how long. She denies fevers or chills. Denies pain changes or increases with eating. CT showed "Moderate volume of fluid in the pelvis and along the mesentery with subacute blood. The volume of blood has slightly decreased compared to the exam of March 11, 2018. The volume of fluid has increased." wbc 12.7. Past Med Surg Social Fam HX - Past Medical History Source: patient Medical history: other Review of Systems All systems PM: reviewed and no additional remarkable complaints except as stated All systems PM: The remainder of the systems were reviewed and are negative General Surgery Exam Initial Vital Signs Temp Pulse Resp BP Pulse Ox 97.6 F 90 18 110/72 100 03/29/18 11:41 03/29/18 11:41 03/29/18 11:41 03/29/18 11:41 03/29/18 11:41 - General physical appearance well developed, well nourished, no distress - Eyes PERRL, normal ocular movement - ENT normal mucosa, normocephalic - Neck trachea midline - Respiratory normal expansion, normal respiratory effort - Cardiovascular Cardiovascular exam: Present: RRR - Abdomen Abdomen general surgery: Present: bowel sounds present, soft, tender. Absent: distended, guarding, rebound Abdominal Tenderness: Present: RLQ, LLQ - Integumentary Integumentary general surgery: Present: warm and dry, other (healing ecchymosis anterior abdominal wall) - Neurologic Present: CN 2-12 grossly intact - Musculoskeletal Present: normal posture - Psychiatric Psychiatric general surgery: Present: A&Ox3 Exam Initial Vital Signs Temp Pulse Resp BP Pulse Ox 97.6 F 90 18 110/72 100 03/29/18 11:41 03/29/18 11:41 03/29/18 11:41 03/29/18 11:41 03/29/18 11:41 Results - Labs 03/29/18 12:28 03/29/18 12:28 Abnormal lab results WBC 12.7 K/mcL (4.3-11.1) H 03/29/18 12:28 RBC 3.52 M/mcL (3.82-4.97) L 03/29/18 12:28 Hgb 10.4 g/dL (11.5-15.4) L 03/29/18 12:28 Hct 31.7 % (35.3-44.9) L 03/29/18 12:28 RDW 16.8 % (11.5-14.5) H 03/29/18 12:28 Neutrophils # 10.9 K/mcL (1.6-8.9) H 03/29/18 12:28 Nucleated RBCs/100 WBC 0.2 /100 WBC (0) H 03/29/18 12:28 Sodium 133 mEq/L (136-145) L 03/29/18 12:28 Carbon Dioxide 19 mEq/L (23-29) L 03/29/18 12:28 BUN 51 mg/dL (8-23) H 03/29/18 12:28 Creatinine 2.71 mg/dL (0.60-1.20) H 03/29/18 12:28 Est GFR ( Amer) 21 (> 60) L 03/29/18 12:28 Est GFR (Non-Af Amer) 17 (> 60) L 03/29/18 12:28 Calcium 8.4 mg/dL (8.6-10.3) L 03/29/18 12:28 B-Natriuretic Peptide 379 pg/mL (Less than 100) H 03/29/18 12:28 Serum Total Protein 5.6 g/dL (6.4-8.9) L 03/29/18 12:28 Albumin 2.5 g/dL (3.5-5.7) L 03/29/18 12:28 Albumin/Globulin Ratio 0.8 (1.1-2.2) L 03/29/18 12:28 Urine Clarity Turbid (Clear) A 03/29/18 12:44 Urine Blood Small (Negative) H 03/29/18 12:44 Urine Nitrite Positive (Negative) A 03/29/18 12:44 Ur Leukocyte Esterase Large (Negative) H 03/29/18 12:44 Urine Microscopic WBC TNTC per hpf (0-3) H 03/29/18 12:44 Ur Squamous Epith Cells Many per lpf (None-Few) H 03/29/18 12:44 Urine Bacteria Many per hpf (None-Few) H 03/29/18 12:44 Urine Yeast Present per hpf (None Seen) H 03/29/18 12:44 Ur Culture Indicated? NO. (NO) A 03/29/18 12:44 Diabetes panel 03/29/18 Range/Units 12:28 Sodium 133 L (136-145) mEq/L Potassium 5.0 (3.5-5.1) mEq/L Chloride 105 (98-107) mEq/L Carbon Dioxide 19 L (23-29) mEq/L BUN 51 H (8-23) mg/dL Creatinine 2.71 H (0.60-1.20) mg/dL Glucose 99 (70-105) mg/dL Calcium 8.4 L (8.6-10.3) mg/dL AST 16 (13-39) Units/L ALT 10 (7-52) Units/L Alkaline Phosphatase 98 (34-104) Units/L Albumin 2.5 L (3.5-5.7) g/dL Calcium panel 03/29/18 Range/Units 12:28 Calcium 8.4 L (8.6-10.3) mg/dL Albumin 2.5 L (3.5-5.7) g/dL Pituitary panel 03/29/18 Range/Units 12:28 Sodium 133 L (136-145) mEq/L Potassium 5.0 (3.5-5.1) mEq/L Chloride 105 (98-107) mEq/L Carbon Dioxide 19 L (23-29) mEq/L BUN 51 H (8-23) mg/dL Creatinine 2.71 H (0.60-1.20) mg/dL Glucose 99 (70-105) mg/dL Calcium 8.4 L (8.6-10.3) mg/dL Adrenal panel 03/29/18 Range/Units 12:28 Sodium 133 L (136-145) mEq/L Potassium 5.0 (3.5-5.1) mEq/L Chloride 105 (98-107) mEq/L Carbon Dioxide 19 L (23-29) mEq/L BUN 51 H (8-23) mg/dL Creatinine 2.71 H (0.60-1.20) mg/dL Glucose 99 (70-105) mg/dL Calcium 8.4 L (8.6-10.3) mg/dL Total Bilirubin 0.7 (0.3-1.0) mg/dL AST 16 (13-39) Units/L ALT 10 (7-52) Units/L Alkaline Phosphatase 98 (34-104) Units/L Albumin 2.5 L (3.5-5.7) g/dL All other labs normal. - Imaging CT scan - abdomen: report reviewed, image reviewed CT scan - pelvis: report reviewed, image reviewed - Attending Attestation I examined this patient and my medical decision-making was reviewed with the Resident Physician. I agree with the documented findings, disposition and treatment plan as described except to the extent set forth below.
[2018-03-29] MEDS ORDERED: GuaiFENesin Liq 200 MG/10 ML UDC PO PRN (20:51)
[2018-03-29] MEDS ORDERED: Acetaminophen 325 MG TABLET PO PRN (20:51)
[2018-03-29] MEDS ORDERED: Naloxone 0.4 MG/ML INJ IVP PRN (20:58)
[2018-03-29] MEDS ORDERED: Ondansetron 4 MG/2 ML VIAL IVP PRN (20:58)
[2018-03-29] MEDS: Budesonide/Formoterol 160/4.5 MDI IH SCH (22:39)
[2018-03-29] MEDS: 0.9 % Sodium Chloride 1,000 ML IVC SCH (23:54)
[2018-03-30] MEDS: *HR* HYDROcodone/Acet 5/325 mg TABLET PO PRN ×3 (00:03→23:39)
[2018-03-30] MEDS: (Cyclosporine [Restasis] 1 DROP) OP SCH (02:09)
--- NOTE | 2018-03-30 06:28 | Internal Med Progress Note ---
Date of Encounter: 03/30/18 Time of Encounter: 06:28 - Assessment and plan (1) UTI (urinary tract infection) Current Visit: Yes Status: Acute Assessment and plan: The patient was started and antibiotics with ceftriaxone, urine culture were obtained. We will follow up on culture result and adjust antibiotic accordingly Qualifiers: Hematuria presence: with hematuria Qualified Code(s): N39.0 - Urinary tract infection, site not specified; R31.9 - Hematuria, unspecified (2) Chronic kidney disease, stage IV (severe) Current Visit: No Status: Acute (3) Hypertension Current Visit: No Status: Chronic Assessment and plan: We will continue home antihypertensive and adjust regimen if indicated Qualifiers: Hypertension type: essential hypertension Qualified Code(s): I10 - Essential (primary) hypertension (4) Atrial fibrillation Current Visit: No Status: Chronic Assessment and plan: The patient not an anticoagulation, she is in aspirin, we will continue home meds Qualifiers: Atrial fibrillation type: chronic Qualified Code(s): I48.2 - Chronic atrial fibrillation (5) Anemia Current Visit: No Status: Acute Assessment and plan: Hemoglobin is stable, will continue to monitor H&H Qualifiers: Anemia type: other cause Other causes of anemia: acute posthemorrhagic Qualified Code(s): D62 - Acute posthemorrhagic anemia (6) Hyponatremia Current Visit: Yes Status: Acute Assessment and plan: Mild hyponatremia, most likely secondary to hypervolemia, DC IV fluid. (7) Metabolic acidosis Current Visit: Yes Status: Acute Assessment and plan: Most likely secondary to impaired kidney function, target bicarbonate is 22 we will start sodium bicarbonate, and consult nephrology to establish outpatient follow-up (8) Hypervolemia without edema Current Visit: Yes Status: Acute Assessment and plan: Rule out cardiorenal syndrome versus nutritional due to low albumin We will obtain 2-D echo, the prelbumin We will start Lasix 40 IV daily (9) DVT prophylaxis Current Visit: No Status: Acute Assessment and plan: We will start the patient on SCDs - Time Spent With Patient Total time spent is greater than 50% in coordination of care (as documented) at patient's floor/unit and/or counseling patient: - Subjective Interval history: The patient is lying in the mid comfortable, however she has be volume overloaded. - Constitutional Vitals: Temp Pulse Resp BP Pulse Ox 97.9 F 91 14 112/72 100 03/30/18 04:35 03/30/18 04:35 03/30/18 04:35 03/30/18 04:35 03/30/18 04:35 General appearance: Present: A&O X 3 - Head Head exam: Present: atraumatic, normocephalic - Neck Neck exam general surgery: Present: supple, trachea midline. Absent: lymphadenopathy - Respiratory Respiratory exam: Present: rhonchi, wheezes. Absent: accessory muscle use, rales - Cardiovascular Cardiovascular exam: Present: RRR, +S1, +S2. Absent: diastolic murmur, gallop, rubs, systolic murmur - GI/Abdominal GI/Abdominal exam: Present: normal bowel sounds, soft, no peritoneal signs. Absent: distended, tenderness - Extremities Exam Extremities exam: Present: pedal edema, warm, radial pulses palpable and symmetrical. Absent: calf tenderness, cyanotic - Neurological Exam Neurological exam: Present: CN II-XII intact, oriented X3, no focal deficits. Absent: pronater drift, facial droop, speech deficit Internal Medicine: Result - Labs CBC & Chem 7: 03/30/18 06:58 03/30/18 06:58 Consult Discharge Plan - Plan Referrals: Lokesh Cooper MD [Primary Care Provider] -
[2018-03-30 07:17] LABS: Hematocrit 29.8 % (35.3-44.9); Hemoglobin 9.3 g/dL (11.5-15.4); Mean Corpuscular HGB Conc 31.2 g/dL (31.6-35.5); Mean Corpuscular Hemoglobin 28.5 pg (28.0-33.3); Mean Corpuscular Volume 91.4 fL (83.0-100.0); Mean Platelet Volume 9.8 fL (9.4-12.4); Platelet Count 241 K/mcL (140-400); Red Blood Count 3.26 M/mcL (3.82-4.97); Red Cell Distribution Width 16.8 % (11.5-14.5)
[2018-03-30 07:34] LABS: INR 1.4; Prothrombin Time 15.8 Seconds (9.4-12.1)
[2018-03-30 07:36] LABS: Activated Partial Thrombo Time 29.5 Seconds (26.0-36.0)
[2018-03-30 07:40] LABS: Albumin 2.3 g/dL (3.5-5.7); Albumin/Globulin Ratio 0.8 (1.1-2.2); Bilirubin,Total 0.6 mg/dL (0.3-1.0); Calcium 8.2 mg/dL (8.6-10.3); Chol/HDL Ratio 4.1 (0-4.9); Globulin 2.9 g/dL (2.4-3.5); Magnesium 1.6 mg/dL (1.6-2.6); Phosphorous 4.6 mg/dL (2.7-4.5); Potassium 4.8 mEq/L (3.5-5.1); Total Protein 5.2 g/dL (6.4-8.9)
[2018-03-30] MEDS: Budesonide/Formoterol 160/4.5 MDI IH SCH ×2 (07:49→19:31)
[2018-03-30] MEDS: cefTRIAXone 1,000 MG in Water for inj. (sterile) 20 ML 10 ML IVP SCH (08:01)
[2018-03-30] MEDS: Aspirin Enteric Coated 81 MG Tablet PO SCH (08:01)
[2018-03-30] MEDS: Loratadine 10 MG TABLET PO SCH (08:02)
[2018-03-30] MEDS: *HR* Amiodarone 200 MG TABLET PO SCH (08:02)
[2018-03-30] MEDS: Isosorbide MONOnitrate (24 HR) 60 MG TAB.ER.24H PO SCH (08:02)
[2018-03-30] MEDS: *HR* OxyCODONE Immed Rel 5 MG TABLET PO PRN (08:04)
[2018-03-30] MEDS ORDERED: Furosemide 40 MG TABLET PO SCH (09:00)
[2018-03-30] MEDS: Fluticasone Propionate Nasal 50 MCG/SPRAY BOTTLE NS SCH (10:00)
--- NOTE | 2018-03-30 13:46 | Nephrology Consult Note ---
Date of Encounter: 03/30/18 Time of Encounter: 13:39 Assessment and Plan (1) Chronic kidney disease, stage IV (severe) Current Visit: Yes Status: Acute Is a patient of Dr. Bustos for CKD IV. Scr 2.51 down from 2.71. GFR 19 up from 17, improving. GFR was 26 when d/c from hospital 03/19/18. Continue to renal dose and avoid nephrotoxins. Retroperitoneal US ordered. Serum/urine studies ordered to rule out other processes. Patient reported poor appetite when at home and has not eaten/or drank much this hospital stay. Encouraged adequate PO intake. (2) Abdominal pain Current Visit: Yes Status: Acute Per primary/surgery. Qualifiers: Abdominal location: lower abdomen, unspecified Qualified Code(s): R10.30 - Lower abdominal pain, unspecified (3) UTI (urinary tract infection) Current Visit: Yes Status: Acute Per primary. Qualifiers: Urinary tract infection type: site unspecified Hematuria presence: with hematuria Qualified Code(s): N39.0 - Urinary tract infection, site not specified; R31.9 - Hematuria, unspecified History of Present Illness - Reason for Consult Acute Kidney Injury, Chronic Kidney Disease - Chief Complaint abdominal pain - History of Present Illness Ms. Barber is a CKD IV patient of Dr. Bustos. She has not been seen by him recently because of her recent illness. Pt is s/p appendectomy 2 weeks ago. She went to ICU after for bleeding issues, had since been released to [facility]. Presented back to ED with abdominal pain. Surgery on board for management. I am unable to see her baseline outpatient records but it does appear she is CKD IV with the recent hospitalizations. Retroperitoneal US ordered for today. Urine and serum labs ordered to rule out other processes. Will hold off on CKD workup at this time. Past Med Surg Social Fam HX - Past Medical History Medical history: arthritis, asthma, atrial fibrillation, CHF, COPD, GERD, hyperlipidemia, hypertension, osteoporosis, renal disease, venous stasis, valvular heart disease, other Additional medical history: blind Psychiatric history: anxiety, depression - Past Surgical History Surgical History: cataract, cholecystectomy, heart valve replacement, herniorrhaphy, hysterectomy, knee replacement, orthopedic, other, sinus surgery , other Additional surgical history: lung surgery - right pleurodesis secondary to pleural effusions after cardiac surgery. "Ross" heart procedure- 1994 [facility] - Social History Smoking Status: Never smoker Smokeless Tobacco Status: No Alcohol use: none Drug use: none - Family History Father History Unknown: Yes Adopted: No Family Member Ethnicity: Non- Living Status: Hx Family Cardiac Disorders: Yes (HD, Pig valve, HD) Hx Family Cancer: Yes (Cancer on lip) Hx Family GI Disorders: Yes (CKD) Hx Family Endocrine Disorder: Yes (Gallstones) Sister Family Member Ethnicity: Non- Living Status: Hx Family Endocrine Disorder: Yes (DM) Mother History Unknown: Yes Adopted: No Family Member Ethnicity: Non- Living Status: Hx Family Cardiac Disorders: Yes (HD, Anemia) Medications and Allergies Cyclosporine [Restasis] 1 drop BOTH EYES BID 04/30/15 [History] Potassium Chloride 20 meq PO DAILY 06/19/16 [History] Calcitriol [Rocaltrol] 0.25 mcg PO DAILY 03/20/17 [History] Loratadine [Claritin] 10 mg PO DAILY 07/20/17 [History] Albuterol Sulfate [Albuterol Inhaler] 2 puff IH Q4HR PRN 08/27/17 [History] Atorvastatin Calcium [Lipitor] 20 mg PO HS 10/06/17 [History] Esomeprazole Magnesium [Nexium] 40 mg PO DAILY 10/06/17 [History] Aspirin Enteric Coated [Aspirin EC] 81 mg PO DAILY tablet. 11/02/17 [Rx] Amiodarone [Cordarone] 200 mg PO DAILY 11/28/17 [History] Docusate [Colace] 100 mg PO BID PRN capsule 12/02/17 [Rx] Fluticasone Propionate Nasal [Flonase] 50 mcg NS DAILY bottle 12/02/17 [Rx] Metoprolol [Lopressor] 50 mg PO BID tablet 12/02/17 [Rx] Acetaminophen [Tylenol] 650 mg PO Q4HR PRN 02/11/18 [History] GuaiFENesin Liq [Robitussin Liq] 200 mg PO Q4HR PRN 02/11/18 [History] Furosemide [Lasix] 40 mg PO DAILY 03/09/18 [History] Quetiapine Fumarate [Seroquel] 50 mg PO HS 03/09/18 [History] Budesonide/Formoterol 160/4.5 [Symbicort 160/4.5] 2 puff IH BIDR 30 Days #30 inhaler 03/15/18 [Rx] Fluticasone/Vilanterol [Breo Ellipta 100-25 Mcg INH] 1 puff IH DAILY 03/29/18 [ History] Isosorbide MONOnitrate (24 HR) [Imdur] 60 mg PO DAILY 03/29/18 [History] Loperamide [Imodium] 2 mg PO Q6H PRN 03/29/18 [History] Ondansetron [Zofran] 8 mg PO Q6H PRN 03/29/18 [History] Oxycodone HCl [Oxaydo] 5 mg PO QID PRN 03/29/18 [History] 3 Allergy/AdvReac Type Severity Reaction Status Date / Time ciprofloxacin [From Cipro] Allergy Hives Verified 03/29/18 21:41 meperidine [From Demerol] AdvReac Vomiting Verified 03/29/18 21:41 Review of Systems Constitutional: no chills, no fever(s) Cardiovascular: no chest pain Respiratory: no cough Gastrointestinal: abdominal pain, no diarrhea, no nausea, no vomiting Genitourinary Female: no difficulty urinating, no urinary frequency, no urinary hesitancy, no urinary incontinence Exam - Vital Signs Vital signs: Initial Vital Signs Temp Pulse Resp BP Pulse Ox 97.6 F 90 18 110/72 100 03/29/18 11:41 03/29/18 11:41 03/29/18 11:41 03/29/18 11:41 03/29/18 11:41 Vital Signs - Last 8 Hours Temp Pulse Resp BP Pulse Ox 03/30/18 12:24 98.4 F 93 14 123/77 99 03/30/18 07:42 16 100 03/30/18 07:20 98.3 F 94 14 108/72 100 Intake and Output 03/29/18 03/30/18 03/30/18 23:59 07:59 15:59 Intake Total 100 / 100 Balance 100 / 100 Intake: Oral 100 / 100 Other: # Urine Diapers 1 Weight 103.2 kg 103.2 kg Patient Weight 03/30/18 23:59 Weight 103.2 kg - General Appearance General appearance: frail EENT: ATNC, hearing intact, vision intact Neck: supple Respiratory: clear Cardiology: edema (+2 pitting edema noted bilateral lower extremities.), normal S1, normal S2 Gastrointestinal: normoactive bowel sounds, no tenderness, no guarding Integumentary: no rash, warm and dry Neurologic: alert and oriented x3 Psychiatric: mood/affect appropriate, cooperative Results - Lab Results 03/30/18 06:58 03/30/18 06:58 Most recent lab results Calcium 8.2 mg/dL (8.6-10.3) L 03/30/18 06:58 Phosphorus 4.6 mg/dL (2.7-4.5) H 03/30/18 06:58 Magnesium 1.6 mg/dL (1.6-2.6) 03/30/18 06:58 Consult Discharge Plan - Plan Referrals: Lokesh Cooper MD [Primary Care Provider] -
[2018-03-30] MEDS ORDERED: Furosemide 40 MG/4 ML VIAL IVP ONE (14:06)
[2018-03-30 14:12] LABS: Bilirubin,Urine Negative (Negative); Blood,Urine Negative (Negative); Clarity,Urine Cloudy (Clear); Color,Urine Yellow (Yellow); Glucose,Urine (UA) Normal (Normal); Ketones,Urine Negative (Negative); Leukocyte Esterase,Urine Large (Negative); Nitrite,Urine Negative (Negative); PH,Urine 5.5 pH Units (5.0-8.0); Protein,Urine Negative (Neg-Trace); Specific Gravity,Urine 1.014 (1.010-1.025); Urobilinogen,Urine Normal (Normal)
[2018-03-30 14:14] LABS: Squamous Epithelial Cell,Urine Many per lpf (None-Few); WBC,Urine 50-100 per hpf (0-3)
--- NOTE | 2018-03-30 14:36 | Electrocardiograph Report ---
[facility] Test Date: 2018-03-29 Pat Name: Janiya Barber Department: 103 Room: 3A47 Gender: F Map Maker: ALBER : 1945 Requested By: Jose Rafael Head Order Number: [id number] Reading MD: Chetan Ybarra Measurements Intervals [place] Rate: 91 P: CA: 0 QRS: 40 QRSD: 97 T: 91 QT: 380 QTc: 429 Interpretive Statements ATRIAL FIBRILLATION LOW QRS VOLTAGE IN EXTREMITY LEADS [QRS DEFLECTION < 0.5 mV IN LIMB LEADS] POSSIBLE ANTERIOR MYOCARDIAL INFARCTION [30 ms Q WAVE IN V3/V4, OR R < 0.2 mV IN V4], PROBABLY OLD ABNORMAL RHYTHM ECG Electronically Signed On 03-30-2018 14:34:59 EDT by Chetan Ybarra
[2018-03-30 14:45] LABS: Bacteria,Urine Moderate per hpf (None-Few); Granular Casts,Urine Few per lpf (None Seen); Hyaline Casts,Urine Few per lpf (None-Few); Mucus,Urine Moderate (Few); RBC,Urine 0-3 per hpf (0-3)
[2018-03-31 07:22] LABS: Uric Acid 12.7 mg/dL (2.3-7.6)
[2018-03-31] MEDS: Budesonide/Formoterol 160/4.5 MDI IH SCH ×2 (07:47→20:24)
[2018-03-31] MEDS: (Cyclosporine [Restasis] 1 DROP) OP SCH ×3 (10:43→11:05)
[2018-03-31] MEDS: cefTRIAXone 1,000 MG in Water for inj. (sterile) 20 ML 10 ML IVP SCH (10:46)
[2018-03-31] MEDS: Furosemide 40 MG/4 ML VIAL IVP SCH (10:47)
[2018-03-31] MEDS: Aspirin Enteric Coated 81 MG Tablet PO SCH (10:47)
[2018-03-31] MEDS: *HR* OxyCODONE Immed Rel 5 MG TABLET PO PRN ×2 (10:47→18:47)
[2018-03-31] MEDS: Loratadine 10 MG TABLET PO SCH (10:47)
[2018-03-31 10:59] LABS: Calcium 8.1 mg/dL (8.6-10.3); Potassium 5.1 mEq/L (3.5-5.1)
[2018-03-31] MEDS: *HR* Amiodarone 200 MG TABLET PO SCH (11:04)
[2018-03-31] MEDS: Isosorbide MONOnitrate (24 HR) 60 MG TAB.ER.24H PO SCH (11:04)
[2018-03-31] MEDS: Fluticasone Propionate Nasal 50 MCG/SPRAY BOTTLE NS SCH (11:05)
--- NOTE | 2018-03-31 11:37 | Nephrology Progress Note ---
Date of Encounter: 03/31/18 Time of Encounter: 11:33 - Assessment and Plan (1) Chronic kidney disease, stage IV (severe) Current Visit: No Status: Acute Scr 2.57 up from 2.51. GFR 22 down from 23. Continue to avoid nephrotoxins and renal dose all medications. Uop hard to measure due to incontinence, unable to obtain urine studies as well. Pt does c/o of burning with urination. (2) Abdominal pain Current Visit: Yes Status: Acute Per primary. Qualifiers: Abdominal location: unspecified location Qualified Code(s): R10.9 - Unspecified abdominal pain (3) UTI (urinary tract infection) Current Visit: Yes Status: Acute Per primary. Qualifiers: Hematuria presence: without hematuria Qualified Code(s): N30.00 - Acute cystitis without hematuria Subjective Principal diagnosis: Abdominal Pain Interval history: Pt seen and examined.NAD. Objective - Vital Signs Vital signs: Vital Signs Temp Pulse Resp BP Pulse Ox 03/31/18 10:39 97.9 F 104 16 101/67 98 03/31/18 07:50 18 100 03/31/18 04:29 98.0 F 70 18 94/61 96 03/30/18 23:35 98.0 F 96 16 97/63 100 03/30/18 19:33 97.9 F 108 18 110/63 98 03/30/18 19:31 18 98 03/30/18 17:16 97.6 F 105 18 109/72 97 03/30/18 12:24 98.4 F 93 14 123/77 99 Intake and Output 03/30/18 03/31/18 03/31/18 23:59 07:59 15:59 Intake Total 240 / 240 120 / 120 Balance 240 / 240 120 / 120 Intake: Oral 240 / 240 120 / 120 Other: Meal Dinner Percent of Meal Consumed 15% # Urine Diapers 0 0 # Bowel Movement Diapers 0 - General Appearance General appearance: Present: chronically ill, frail EENT: Present: ATNC, hearing intact, vision intact Neck: Present: supple Respiratory: Present: clear Cardiology: Present: edema (+1 pitting edema to all four extremities.), normal S1, normal S2 Gastrointestinal: Present: normoactive bowel sounds, no tenderness, no guarding Integumentary: Present: no rash, warm and dry Neurologic: Present: alert and oriented x3 Psychiatric: Present: mood/affect appropriate, cooperative - Lab 03/30/18 06:58 03/31/18 10:33 Most recent lab results Calcium 8.1 mg/dL (8.6-10.3) L 03/31/18 10:33 Phosphorus 4.6 mg/dL (2.7-4.5) H 03/30/18 06:58 Magnesium 1.6 mg/dL (1.6-2.6) 03/30/18 06:58 Consult Discharge Plan - Plan Referrals: Lokesh Cooper MD [Primary Care Provider] -
[2018-03-31] MEDS: 0.9 % Sodium Chloride 1,000 ML IVC SCH (13:38)
[2018-03-31] MEDS: *HR* HYDROcodone/Acet 5/325 mg TABLET PO PRN ×2 (13:45→20:52)
[2018-03-31] MEDS ORDERED: Perflutren Lipid Microsphere 1.3 ML in 0.9 % Sodium Chloride 8.7 ML IVP ONE (15:05)
--- NOTE | 2018-03-31 19:06 | Internal Med Progress Note ---
Date of Encounter: 03/31/18 Time of Encounter: 19:00 - Assessment and plan (1) Abdominal pain Current Visit: Yes Status: Acute Assessment and plan: Abdomen firm and tender today. Checking STAT abd x ray. Will encourage give stool softner. Seen bby surgery no surgical intervention at this time. Qualifiers: Abdominal location: unspecified location Qualified Code(s): R10.9 - Unspecified abdominal pain (2) Abnormal CT of the abdomen Current Visit: No Status: Acute Assessment and plan: Surgery on board. CT abdomen and pelvis 1. Moderate volume of fluid in the pelvis and along the mesentery with subacute blood. The volume of blood has slightly decreased compared to the exam of March 11, 2018. The volume of fluid has increased. 2. Circumferential subcutaneous edema. Please correlate with clinical symptoms of anasarca. -Findings were similar to last exam and patient is showing some improvement (3) UTI (urinary tract infection) Current Visit: Yes Status: Acute Assessment and plan: [place] Qualifiers: Hematuria presence: without hematuria Qualified Code(s): N30.00 - Acute cystitis without hematuria (4) HTN (hypertension) Current Visit: No Status: Chronic Assessment and plan: Lopressor, imdur, Qualifiers: Hypertension type: essential hypertension Qualified Code(s): I10 - Essential (primary) hypertension (5) Atrial fibrillation Current Visit: No Status: Acute Assessment and plan: The patient is not an anticoagulation, she is in aspirin, amiodarone and lopressor, we will continue home meds Qualifiers: Atrial fibrillation type: persistent Qualified Code(s): I48.1 - Persistent atrial fibrillation (6) Anemia Current Visit: No Status: Acute Qualifiers: Anemia type: other cause Other causes of anemia: acute posthemorrhagic Qualified Code(s): D62 - Acute posthemorrhagic anemia (7) Chronic kidney disease, stage IV (severe) Current Visit: No Status: Acute Assessment and plan: Nephrology following. Continue to avoid nephrotoxins and renal dose all medications. (8) Hyponatremia Current Visit: Yes Status: Acute Assessment and plan: Mild hyponatremia, most likely secondary to hypervolemia, DC IV fluid. Na 133 now 135 (9) Metabolic acidosis Current Visit: Yes Status: Acute Assessment and plan: Most likely secondary to impaired kidney function, target bicarbonate is 22 we will start sodium bicarbonate, and consult nephrology to establish outpatient follow-up. (10) Hypervolemia without edema Current Visit: Yes Status: Acute Assessment and plan: Rule out cardiorenal syndrome versus nutritional due to low albumin Obtaining 2-D echo, the prelbumin. Was started on Lasix 40 IV daily - Time Spent With Patient Total time spent is greater than 50% in coordination of care (as documented) at patient's floor/unit and/or counseling patient: less than 15 minutes - Subjective Interval history: Pt complaining of abdomen being firm and painful. States she developed abdominal pain when eating her lunch. Denies fever or chills. Denies CP or SOB. - Constitutional Vitals: Temp Pulse Resp BP Pulse Ox 98.2 F 107 15 120/77 99 03/31/18 18:44 03/31/18 18:44 03/31/18 18:44 03/31/18 18:44 03/31/18 18:44 General appearance: Present: A&O X 3 - Head Head exam: Present: atraumatic, normocephalic - Eye Eye exam: Present: PERRL, conjuntiva pink, sclera anicteric Pupils: Present: PERRL - Neck Neck exam general surgery: Present: supple, trachea midline. Absent: lymphadenopathy - Respiratory Respiratory exam: Present: CTAB. Absent: accessory muscle use, rales, rhonchi, wheezes - Cardiovascular Cardiovascular exam: Present: RRR, +S1, +S2. Absent: diastolic murmur, gallop, rubs, systolic murmur - GI/Abdominal GI/Abdominal exam: Present: distended, normal bowel sounds, no peritoneal signs. Absent: soft, tenderness Additional comments: slightly firm - Extremities Exam Extremities exam: Present: warm, radial pulses palpable and symmetrical. Absent : calf tenderness, cyanotic, pedal edema - Neurological Exam Neurological exam: Present: CN II-XII intact, oriented X3, no focal deficits. Absent: pronater drift, facial droop, speech deficit - Skin Skin exam: Present: dry, intact Internal Medicine: Result - Labs CBC & Chem 7: 03/30/18 06:58 03/31/18 10:33 Labs: BMP 03/31/18 10:33 Sodium 135 L Potassium 5.1 Chloride 107 Carbon Dioxide 19 L BUN 51 H Creatinine 2.57 H Glucose 136 H Calcium 8.1 L - ABG Interpretation ABG results: PT/INR, D-dimer PT 15.8 Seconds (9.4-12.1) H 03/30/18 06:58 - Impressions Impressions Retroperitoneum Ultrasound 03/30/18 17:30 IMPRESSION: 1. Large septated collection superior to the bladder within the pelvis which corresponds to large volume of intra-abdominal fluid on recent CT. Sterility of this fluid is indeterminate. Findings may reflect sequela of previously described postoperative hemorrhage is noted on CT abdomen pelvis from March 11, 2018. 2. Unremarkable appearance of the right kidney with no evidence for hydronephrosis. 3. The left kidney is not visualized. The left kidney is atrophic per the prior CTs. D/ / Jf Braden MD / Jf Braden MD Interpreting Provider: Jf Braden MD Echocardiogram 03/31/18 23:43 Impressions: LVEF 65%. Normal LV chamber size, wall thickness and function. Indeterminate diastolic function. Technically sub-optimal due to poor echocardiographic windows. Right ventricle was not well visualized. Bioprosthetic aortic valve appears well seated. Leaflets not well visualized. Acceptable function by Doppler. Mild tricuspid regurgitation. Mild pulmonary hypertension. Left Ventricular Wall Motion: Rest Echo Findings All wall segments showed normal motion. Findings: Study Quality * Technically sub-optimal due to poor echocardiographic windows. ECG Findings * Difficult to determine rhythm, tachycardia noted. Left Ventricle * LVEF 65%. * Normal LV chamber size, wall thickness and function. * Indeterminate diastolic function. Right Ventricle * Right ventricle was not well visualized. Left Atrium * Mildly dilated left atrium. Right Atrium * Normal right atrial size. Aortic Valve * Bioprosthetic aortic valve appears well seated. Leaflets not well visualized. Acceptable function by Doppler. * Mild aortic regurgitation. * No aortic stenosis. Mean gradient 8 mmHg. Mitral Valve * Mild mitral annular calcification * Trace mitral regurgitation. * No mitral stenosis. Tricuspid Valve * Normal tricuspid valve structure. * Mild tricuspid regurgitation. * Mild pulmonary hypertension. Pulmonic Valve * Pulmonic valve not well visualized. Aorta * Normally sized aortic root. Pericardium * The pericardium appears normal. IVC * The IVC is not well evaluated. Pulmonary Artery * Normal visualized portions of the main pulmonary artery. Consult Discharge Plan - Plan Referrals: Lokesh Cooper MD [Primary Care Provider] -
[2018-03-31 20:15] LABS: Protein/Creatinine Ratio,Urine 0.29 mg/mg (0.00-0.20); Sodium, Urine 16.5 mEq/L
[2018-04-01] MEDS: Budesonide/Formoterol 160/4.5 MDI IH SCH ×2 (07:40→20:06)
[2018-04-01] MEDS: *HR* HYDROcodone/Acet 5/325 mg TABLET PO PRN ×2 (09:03→20:51)
[2018-04-01] MEDS: Isosorbide MONOnitrate (24 HR) 60 MG TAB.ER.24H PO SCH (09:03)
[2018-04-01] MEDS: Furosemide 40 MG/4 ML VIAL IVP SCH ×2 (09:04→20:52)
[2018-04-01] MEDS: cefTRIAXone 1,000 MG in Water for inj. (sterile) 20 ML 10 ML IVP SCH (09:04)
[2018-04-01] MEDS: Loratadine 10 MG TABLET PO SCH (09:04)
[2018-04-01] MEDS: Aspirin Enteric Coated 81 MG Tablet PO SCH (09:04)
[2018-04-01] MEDS: *HR* Amiodarone 200 MG TABLET PO SCH (09:04)
[2018-04-01] MEDS: Fluticasone Propionate Nasal 50 MCG/SPRAY BOTTLE NS SCH (09:05)
[2018-04-01 10:11] LABS: Basophils % 0.2 %; Eosinophils # 0.1 K/mcL (0.0-0.6); Eosinophils % 1.4 %; Hematocrit 32.4 % (35.3-44.9); Hemoglobin 10.1 g/dL (11.5-15.4); Immature Granulocytes % 2.3 % (0-4); Lymphocytes # 0.5 K/mcL (0.6-4.6); Lymphocytes % 4.9 %; Mean Corpuscular HGB Conc 31.2 g/dL (31.6-35.5); Mean Corpuscular Volume 89.8 fL (83.0-100.0); Mean Platelet Volume 9.9 fL (9.4-12.4); Monocytes # 0.5 K/mcL (0.0-1.3); Monocytes % 4.9 %; Neutrophils # 7.8 K/mcL (1.6-8.9); Nucleated Red Blood Cells 0.2 /100 WBC (0); Platelet Count 235 K/mcL (140-400); Red Blood Count 3.61 M/mcL (3.82-4.97); Segmented Neutrophils % 86.3 %
--- NOTE | 2018-04-01 10:20 | Internal Med Progress Note ---
<Abdirashid Major S - Last Filed: 04/01/18 14:01> Date of Encounter: 04/01/18 Time of Encounter: 09:35 - Assessment and plan (1) UTI (urinary tract infection) Current Visit: Yes Status: Acute Assessment and plan: Rocephin day 3 UA showed 50-100 WBC, (+) leukocyte esterase, (+) bacteria Culture is pending Pt not complaining of any dysuria or hematuria (2) Hypertension Current Visit: No Status: Chronic Assessment and plan: Pt BP today is 123/77 Pt BP stable on Lopressor home med Qualifiers: Hypertension type: essential hypertension Qualified Code(s): I10 - Essential (primary) hypertension (3) DVT prophylaxis Current Visit: No Status: Acute Assessment and plan: Pt on 5000U heparin SQ (4) Atrial fibrillation Current Visit: No Status: Chronic Assessment and plan: Pt is on ASA, Lopressor HR today is 104 Qualifiers: Atrial fibrillation type: chronic Qualified Code(s): I48.2 - Chronic atrial fibrillation (5) Anemia Current Visit: No Status: Chronic Assessment and plan: Monitor H&H Qualifiers: Anemia type: other cause Other causes of anemia: other cause, not classified Qualified Code(s): D64.89 - Other specified anemias (6) Chronic kidney disease, stage IV (severe) Current Visit: No Status: Chronic Assessment and plan: Strict I&O's, 2L fluid restriction, renal diet Creatinine 2.57, BUN 51. Appears to be stable and at baseline. Range of creatinine 1.6-3.35. BUN was 111 on 02/05/18 but is stable as of now. In february was averaged around 40. March average is around 49-50. (7) Abdominal pain Current Visit: Yes Status: Acute Assessment and plan: Pt had complaints of abdominal pain last night -was firm and tender yesterday -attending ordered STAT x-ray - showed no acute obstruction -added colace BID and miralax one time daily -surgery evaluated and said no acute surgical intervention needed CT showed moderate volume of fluid in the pelvis and along the mesentery with subacute blood -volume of fluid has increased but blood has decreased compared to March 11, 2018 -circumferential SQ edema, correlate with clinical s/s of spring Pt is s/p appendectomy. She was her for lap appy 2 weeks ago Qualifiers: Abdominal location: unspecified location Qualified Code(s): R10.9 - Unspecified abdominal pain - Time Spent With Patient Total time spent is greater than 50% in coordination of care (as documented) at patient's floor/unit and/or counseling patient: less than 15 minutes - Subjective Interval history: Pt is seen at bedside. SHe came to the ER from her SNF on 03/29 because of increasing abdominal pain. She had some radiation to the back. She was recently here for an appendectomy and had to be transfused 3U of blood and was in the ICU because she was hypotensive. She denies any chest pain, SOB, n/v/d, painful urination She currently has abdominal pain still, says her back hurts and it is rated as a 6/10. She denies any radiation or any palliative/provocative factors. Nurse recommends increasing colace BID and miralax 1 time daily. Put in orders for this. Pt reported to nurse her belly pain got better Fluids - currently held, strict I&O's, 2L fluid restriction Electrolytes - currently normal Nutrition - renal diet GI prophylaxis - on prilosec DVT prophylaxis - heparin 5000U SQ - Constitutional Vitals: Temp Pulse Resp BP Pulse Ox 98.4 F 104 16 123/77 98 04/01/18 06:57 04/01/18 06:57 04/01/18 07:40 04/01/18 06:57 04/01/18 07:40 General appearance: Present: A&O X 3 - Head Head exam: Present: normal inspection - Respiratory Respiratory exam: Present: decreased breath sounds - Cardiovascular Cardiovascular exam: Present: irregular rhythm - GI/Abdominal GI/Abdominal exam: Present: hypoactive bowel sounds, tenderness, no peritoneal signs - Incison Incision: Present: clean and dry, intact - Skin Skin exam: Present: intact Additional comments: multiple bruises Internal Medicine: Result - Labs CBC & Chem 7: 04/01/18 09:55 04/01/18 09:55 Labs: Short CBC 04/01/18 Range/Units 09:55 WBC 9.1 (4.3-11.1) K/mcL Hgb 10.1 L (11.5-15.4) g/dL Hct 32.4 L (35.3-44.9) % Plt Count 235 (140-400) K/mcL Neutrophils # 7.8 (1.6-8.9) K/mcL BMP 03/31/18 10:33 Sodium 135 L Potassium 5.1 Chloride 107 Carbon Dioxide 19 L BUN 51 H Creatinine 2.57 H Glucose 136 H Calcium 8.1 L - ABG Interpretation ABG results: PT/INR, D-dimer PT 15.8 Seconds (9.4-12.1) H 03/30/18 06:58 - Impressions Impressions Chest/Abdomen X-ray 03/31/18 19:01 IMPRESSION: 1. Re- demonstration chronic parenchymal scarring within the lungs as well as chronic left pleural thickening and likely loculated pleural fluid is noted on recent CT. 2. Nonspecific bowel gas pattern with no obstruction identified. D/ / Jf Braden MD / Jf Braden MD Interpreting Provider: Jf Braden MD Echocardiogram 03/31/18 23:43 Impressions: LVEF 65%. Normal LV chamber size, wall thickness and function. Indeterminate diastolic function. Technically sub-optimal due to poor echocardiographic windows. Right ventricle was not well visualized. Bioprosthetic aortic valve appears well seated. Leaflets not well visualized. Acceptable function by Doppler. Mild tricuspid regurgitation. Mild pulmonary hypertension. Left Ventricular Wall Motion: Rest Echo Findings All wall segments showed normal motion. Findings: Study Quality * Technically sub-optimal due to poor echocardiographic windows. ECG Findings * Difficult to determine rhythm, tachycardia noted. Left Ventricle * LVEF 65%. * Normal LV chamber size, wall thickness and function. * Indeterminate diastolic function. Right Ventricle * Right ventricle was not well visualized. Left Atrium * Mildly dilated left atrium. Right Atrium * Normal right atrial size. Aortic Valve * Bioprosthetic aortic valve appears well seated. Leaflets not well visualized. Acceptable function by Doppler. * Mild aortic regurgitation. * No aortic stenosis. Mean gradient 8 mmHg. Mitral Valve * Mild mitral annular calcification * Trace mitral regurgitation. * No mitral stenosis. Tricuspid Valve * Normal tricuspid valve structure. * Mild tricuspid regurgitation. * Mild pulmonary hypertension. Pulmonic Valve * Pulmonic valve not well visualized. Aorta * Normally sized aortic root. Pericardium * The pericardium appears normal. IVC * The IVC is not well evaluated. Pulmonary Artery * Normal visualized portions of the main pulmonary artery. Consult Discharge Plan - Plan Referrals: Lokesh Cooper MD [Primary Care Provider] - <Jess Lee - Last Filed: 04/01/18 18:09> Date of Encounter: 04/01/18 - Assessment and plan (1) Hypertension Current Visit: No Status: Chronic (2) DVT prophylaxis Current Visit: No Status: Acute (3) Atrial fibrillation Current Visit: No Status: Chronic (4) Anemia Current Visit: No Status: Chronic Qualifiers: Anemia type: other cause Other causes of anemia: other cause, not classified Qualified Code(s): D64.89 - Other specified anemias (5) Chronic kidney disease, stage IV (severe) Current Visit: No Status: Chronic (6) UTI (urinary tract infection) Current Visit: Yes Status: Acute (7) Abdominal pain Current Visit: Yes Status: Acute Qualifiers: Abdominal location: unspecified location Qualified Code(s): R10.9 - Unspecified abdominal pain - Time Spent With Patient Total time spent is greater than 50% in coordination of care (as documented) at patient's floor/unit and/or counseling patient: - Constitutional Vitals: Temp Pulse Resp BP Pulse Ox 98.4 F 102 14 92/61 100 04/01/18 15:22 04/01/18 15:22 04/01/18 15:22 04/01/18 15:22 04/01/18 15:22 Internal Medicine: Result - Labs CBC & Chem 7: 04/01/18 09:55 04/01/18 09:55 Labs: Short CBC 04/01/18 Range/Units 09:55 WBC 9.1 (4.3-11.1) K/mcL Hgb 10.1 L (11.5-15.4) g/dL Hct 32.4 L (35.3-44.9) % Plt Count 235 (140-400) K/mcL Neutrophils # 7.8 (1.6-8.9) K/mcL BMP 04/01/18 09:55 Sodium 134 L Potassium 4.4 Chloride 106 Carbon Dioxide 18 L BUN 51 H Creatinine 2.50 H Glucose 122 H Calcium 8.2 L - ABG Interpretation ABG results: PT/INR, D-dimer PT 15.8 Seconds (9.4-12.1) H 03/30/18 06:58 - Impressions Impressions Chest/Abdomen X-ray 03/31/18 19:01 IMPRESSION: 1. Re- demonstration chronic parenchymal scarring within the lungs as well as chronic left pleural thickening and likely loculated pleural fluid is noted on recent CT. 2. Nonspecific bowel gas pattern with no obstruction identified. D/ / Jf Braden MD / Jf Braden MD Interpreting Provider: Jf Braden MD - Attending Attestation I saw and evaluated the patient at bedside. I have reviewed the progress note obtained and documented by the resident and personally participated in the baltazar components. I have discussed the case and management of the patient's care. I agree with the findings and plan of care.The following comments revise or confirm relevant baltazar components of their note Post op Appendicitis Ct AP reveals pelvic fluid plus blood - pt seen by Gen surgery and deemed to be stable Her abdomne feels distended and harder Will check new imaging today- may need bowel protocol consider GI consult or reconsult to Gen surgery if abdominal complaints continue. Discussed in detail with Resident team as well.
[2018-04-01 10:33] LABS: Calcium 8.2 mg/dL (8.6-10.3); Potassium 4.4 mEq/L (3.5-5.1)
--- NOTE | 2018-04-01 10:51 | Event Note ---
Date of Encounter: 04/01/18 Time of Encounter: 10:47 Pt states abdominal discomfort is improved. She reports BM and passing flatus ( BM last recorded 03/29). Her abdominal exam is unchanged. Noted she is on Colace PRN-would recommend changing this to scheduled BID and add miralax daily prn. There remains no acute surgical intervention indicated. Surgery will sign off at this time. Thank you for allowing us to participate in Ms. Barber. Further questions or needs.
[2018-04-01] MEDS ORDERED: Furosemide 40 MG/4 ML VIAL IVP ONE (13:59)
[2018-04-01] MEDS: *HR* Heparin 5,000 UNIT/ML VIAL SQ SCH ×2 (16:58→20:52)
[2018-04-01] MEDS: Ondansetron ODT 4 MG TAB.RAPDIS PO PRN (20:51)
--- NOTE | 2018-04-01 22:50 | Nephrology Progress Note ---
Date of Encounter: 04/01/18 Time of Encounter: 22:40 - Assessment and Plan (1) Acute kidney injury superimposed on CKD Current Visit: No Status: Acute Renal function improving. Continue current therapy. Subjective Principal diagnosis: Abdominal Pain Interval history: Patient seen. No new complaint. Objective - Vital Signs Vital signs: Vital Signs Temp Pulse Resp BP Pulse Ox 04/01/18 20:06 16 98 04/01/18 19:12 98.7 F 107 15 112/73 97 04/01/18 15:22 98.4 F 102 14 92/61 100 04/01/18 10:57 97.9 F 92 14 92/60 97 04/01/18 10:46 98 04/01/18 07:40 16 98 04/01/18 06:57 98.4 F 104 14 123/77 99 04/01/18 04:28 98.4 F 107 15 119/76 100 Intake and Output 04/01/18 04/01/18 04/01/18 07:59 15:59 23:59 Intake Total 100 / 100 240 / 240 340 / 340 Output Total 0 / 0 0 / 0 Balance 100 / 100 240 / 240 340 / 340 Intake: Oral 100 / 100 240 / 240 340 / 340 Output: Urine 0 / 0 Catheter 0 / 0 Other: Meal Lunch Dinner Percent of Meal Consumed 0% 0% # Voids 1 # Urine Diapers 1 1 0 Weight 104.9 kg Blood Glucose* 249 Patient Weight 04/01/18 23:59 Weight 104.9 kg - Lab 04/01/18 09:55 04/01/18 09:55 Most recent lab results Calcium 8.2 mg/dL (8.6-10.3) L 04/01/18 09:55 Phosphorus 4.6 mg/dL (2.7-4.5) H 03/30/18 06:58 Magnesium 1.6 mg/dL (1.6-2.6) 03/30/18 06:58 Urine Creatinine 89 mg/dL 03/31/18 19:50 Urine Sodium 16.5 mEq/L 03/31/18 19:50 Urine Total Protein 26 mg/dL (1-14) H 03/31/18 19:50 Consult Discharge Plan - Plan Referrals: Lokesh Cooper MD [Primary Care Provider] -
[2018-04-02 06:01] LABS: Basophils % 0.5 %; Eosinophils # 0.1 K/mcL (0.0-0.6); Eosinophils % 0.9 %; Hematocrit 31.9 % (35.3-44.9); Immature Granulocytes % 2.7 % (0-4); Lymphocytes # 0.6 K/mcL (0.6-4.6); Lymphocytes % 6.5 %; Mean Corpuscular HGB Conc 31.3 g/dL (31.6-35.5); Mean Corpuscular Hemoglobin 28.4 pg (28.0-33.3); Mean Corpuscular Volume 90.6 fL (83.0-100.0); Mean Platelet Volume 10.1 fL (9.4-12.4); Monocytes # 0.4 K/mcL (0.0-1.3); Monocytes % 4.9 %; Neutrophils # 7.3 K/mcL (1.6-8.9); Nucleated Red Blood Cells 0.3 /100 WBC (0); Platelet Count 231 K/mcL (140-400); Red Blood Count 3.52 M/mcL (3.82-4.97); Red Cell Distribution Width 16.9 % (11.5-14.5); Segmented Neutrophils % 84.5 %
[2018-04-02] MEDS: *HR* Heparin 5,000 UNIT/ML VIAL SQ SCH ×2 (06:07→15:15)
[2018-04-02 06:23] LABS: Potassium 4.6 mEq/L (3.5-5.1)
[2018-04-02 06:26] LABS: Albumin 2.3 g/dL (3.5-5.7); Albumin/Globulin Ratio 0.7 (1.1-2.2); Bilirubin,Total 0.5 mg/dL (0.3-1.0); Calcium 8.1 mg/dL (8.6-10.3); Globulin 3.2 g/dL (2.4-3.5); Potassium 4.6 mEq/L (3.5-5.1); Total Protein 5.5 g/dL (6.4-8.9)
[2018-04-02] MEDS: Budesonide/Formoterol 160/4.5 MDI IH SCH ×2 (07:14→23:32)
[2018-04-02] MEDS: *HR* Amiodarone 200 MG TABLET PO SCH (09:14)
[2018-04-02] MEDS: Furosemide 40 MG/4 ML VIAL IVP SCH ×2 (09:14→15:35)
[2018-04-02] MEDS: Aspirin Enteric Coated 81 MG Tablet PO SCH (09:14)
[2018-04-02] MEDS: Loratadine 10 MG TABLET PO SCH (09:15)
[2018-04-02] MEDS: Isosorbide MONOnitrate (24 HR) 60 MG TAB.ER.24H PO SCH (09:15)
[2018-04-02] MEDS: Fluticasone Propionate Nasal 50 MCG/SPRAY BOTTLE NS SCH (09:15)
[2018-04-02] MEDS: cefTRIAXone 1,000 MG in Water for inj. (sterile) 20 ML 10 ML IVP SCH (09:17)
--- NOTE | 2018-04-02 11:03 | Nephrology Progress Note ---
Date of Encounter: 04/02/18 Time of Encounter: 11:00 - Assessment and Plan (1) Chronic kidney disease, stage IV (severe) Current Visit: No Status: Chronic Baseline GFR 22-25, she does see Dr. Bustos in the office. GFR 19 today. Parks placed for accurate I/Os. Continue to avoid nephrotoxins and renal dose all medications. (2) Abdominal pain Current Visit: Yes Status: Acute Per primary. Qualifiers: Abdominal location: unspecified location Qualified Code(s): R10.9 - Unspecified abdominal pain (3) UTI (urinary tract infection) Current Visit: Yes Status: Acute Per primary. Qualifiers: Hematuria presence: without hematuria Qualified Code(s): N30.00 - Acute cystitis without hematuria Subjective Principal diagnosis: Abdominal Pain Interval history: Pt seen and examined.NAD. Objective - Vital Signs Vital signs: Vital Signs Pulse Ox 04/02/18 10:35 98 - General Appearance General appearance: Present: chronically ill, frail EENT: Present: ATNC, hearing intact Neck: Present: supple Respiratory: Present: clear Cardiology: Present: edema (+2 pitting edema noted bilat lower etremities.), normal S1, normal S2 Gastrointestinal: Present: normoactive bowel sounds, no tenderness, no guarding Integumentary: Present: no rash, warm and dry Neurologic: Present: alert and oriented x3 Psychiatric: Present: mood/affect appropriate, cooperative - Lab 04/02/18 05:22 04/02/18 05:22 Most recent lab results Calcium 8.1 mg/dL (8.6-10.3) L 04/02/18 05:22 Phosphorus 4.6 mg/dL (2.7-4.5) H 03/30/18 06:58 Magnesium 1.6 mg/dL (1.6-2.6) 03/30/18 06:58 Urine Creatinine 89 mg/dL 03/31/18 19:50 Urine Sodium 16.5 mEq/L 03/31/18 19:50 Urine Total Protein 26 mg/dL (1-14) H 03/31/18 19:50 Consult Discharge Plan - Plan Referrals: Lokesh Cooper MD [Primary Care Provider] -
[2018-04-02] MEDS: Ondansetron ODT 4 MG TAB.RAPDIS PO PRN ×2 (12:20→19:31)
--- NOTE | 2018-04-02 13:29 | Internal Med Progress Note ---
<Abdirashid Major S - Last Filed: 04/02/18 13:26> Date of Encounter: 04/02/18 Time of Encounter: 09:00 - Assessment and plan (1) Abdominal pain Current Visit: Yes Status: Acute Assessment and plan: Pt had complaints of abdominal pain last night -was firm and tender today moreso than yesterday, increasing periumbilical bruising -attending ordered STAT x-ray - showed no acute obstruction. -CT abdomen showed complex fluid collection in pelvis, decreasing size of hematoma, possible capsule formation vs possible abscess. Increased right hydronephrosis causing compression of rt ureter -added colace BID and miralax one time daily. Will add mag citrate PO today -surgery evaluated and said no acute surgical intervention, surgery signed off Pt is s/p appendectomy. She was her for lap appy 2 weeks ago Pt is extremely fluid overload. We will add IV albumin 25g twice today with a dose of Lasix 20mg IVP right after the first dose. Give albumin over 30min-1hr Qualifiers: Abdominal location: unspecified location Qualified Code(s): R10.9 - Unspecified abdominal pain (2) UTI (urinary tract infection) Current Visit: Yes Status: Acute Assessment and plan: Rocephin day 3 UA showed 50-100 WBC, (+) leukocyte esterase, (+) bacteria Culture is pending Pt not complaining of any dysuria or hematuria (3) Hypertension Current Visit: No Status: Chronic Assessment and plan: Pt BP today is 102/67 Pt BP stable on Lopressor home med Qualifiers: Hypertension type: essential hypertension Qualified Code(s): I10 - Essential (primary) hypertension (4) DVT prophylaxis Current Visit: No Status: Acute Assessment and plan: Pt on 5000U heparin SQ -some brusing noted around injection site (5) Atrial fibrillation Current Visit: No Status: Chronic Assessment and plan: Pt is on ASA, Lopressor HR today is 107 Qualifiers: Atrial fibrillation type: chronic Qualified Code(s): I48.2 - Chronic atrial fibrillation (6) Anemia Current Visit: No Status: Chronic Assessment and plan: Monitor H&H -likely due to anemia of chronic dz Qualifiers: Anemia type: other cause Other causes of anemia: other cause, not classified Qualified Code(s): D64.89 - Other specified anemias (7) Chronic kidney disease, stage IV (severe) Current Visit: No Status: Chronic Assessment and plan: Strict I&O's, 1.5L fluid restriction, renal diet Creatinine 2.45 BUN 56. Appears to be stable and at baseline. Range of creatinine 1.6-3.35. BUN was 111 on 02/05/18 but is stable as of now. In february was averaged around 40. March average is around 49-50. (8) CHF exacerbation Current Visit: Yes Status: Acute Assessment and plan: Acute exacerbation of chronic CHF -ECHO showed LVEF 65%, mild pulmonary HTN -Lasix IV 40mg BID -Pt has a lot of fluid overload and has hypoalbuminemia, contributing to low oncotic pressure which is worsening third spacing and not allowing proper diuresis of pt. We will add 25g IV albumin BID given over 30min-1hr followed by IV Lasix 20mg after the first dose. Will make nursing aware of these specific instructions Strict I&O's -pt has catheter in. Urine output was 200cc overnight -fluid restrict to 1.5 L per day -cardiac /renal diet, low fat low cholesterol low salt Qualifiers: Heart failure type: diastolic Qualified Code(s): I50.33 - Acute on chronic diastolic (congestive) heart failure - Time Spent With Patient Total time spent is greater than 50% in coordination of care (as documented) at patient's floor/unit and/or counseling patient: less than 15 minutes - Subjective Interval history: Pt is seen at bedside. SHe came to the ER from her SNF on 03/29 because of increasing abdominal pain. She had some radiation to the back. She was recently here for an appendectomy and had to be transfused 3U of blood and was in the ICU because she was hypotensive. She denies any chest pain, SOB, n/v/d, painful urination Today the patient has complaints of abdominal pain, she has diffuse tenderness on palpation -CT abdomen yesterday showed complex fluid collection in pelvis with decreasing hematoma size, possible capsule formation, possible abscess; increasing right hydronephrosis and compression of the right ureter -no fecal impaction seen but yesterday I increased colace BID and miralax 1 time daily. Put in orders for this. Pt reported to nurse her belly pain got better after a bowel movement -today will add mag citrate PO for the patient to see if this relieves any of the belly pain Fluids - strict I&O's, 2L fluid restriction Electrolytes - currently normal Nutrition - renal diet GI prophylaxis - on prilosec DVT prophylaxis - heparin 5000U SQ - Constitutional Vitals: Temp Pulse Resp BP Pulse Ox 97.9 F 106 16 125/81 98 04/02/18 11:10 04/02/18 11:10 04/02/18 11:10 04/02/18 11:10 04/02/18 11:10 General appearance: Present: A&O X 3, obese - Head Head exam: Present: normal inspection - Neck Neck exam general surgery: Present: supple - Respiratory Respiratory exam: Present: decreased breath sounds - Cardiovascular Cardiovascular exam: Present: tachycardia - GI/Abdominal GI/Abdominal exam: Present: hypoactive bowel sounds, tenderness, no peritoneal signs - Extremities Exam Extremities exam: Present: pedal edema (3+ pitting edema) - Incison Incision: Present: clean and dry (increased bruising noted around periumbilical region) - Skin Skin exam: Present: intact Internal Medicine: Result - Labs CBC & Chem 7: 04/02/18 05:22 04/02/18 05:22 - ABG Interpretation ABG results: PT/INR, D-dimer PT 15.8 Seconds (9.4-12.1) H 03/30/18 06:58 Consult Discharge Plan - Plan Referrals: Lokesh Cooper MD [Primary Care Provider] - <Jess Lee - Last Filed: 04/02/18 17:53> Date of Encounter: 04/02/18 - Assessment and plan (1) Hypertension Current Visit: No Status: Chronic (2) DVT prophylaxis Current Visit: No Status: Acute (3) Atrial fibrillation Current Visit: No Status: Chronic (4) Anemia Current Visit: No Status: Chronic Qualifiers: Anemia type: other cause Other causes of anemia: other cause, not classified Qualified Code(s): D64.89 - Other specified anemias (5) Chronic kidney disease, stage IV (severe) Current Visit: No Status: Chronic (6) UTI (urinary tract infection) Current Visit: Yes Status: Acute (7) Abdominal pain Current Visit: Yes Status: Acute (8) CHF exacerbation Current Visit: Yes Status: Acute Qualifiers: Heart failure type: diastolic Qualified Code(s): I50.33 - Acute on chronic diastolic (congestive) heart failure - Time Spent With Patient Total time spent is greater than 50% in coordination of care (as documented) at patient's floor/unit and/or counseling patient: - Constitutional Vitals: Temp Pulse Resp BP Pulse Ox 98.0 F 112 18 122/81 100 04/02/18 15:32 04/02/18 15:32 04/02/18 15:32 04/02/18 15:32 04/02/18 15:32 Internal Medicine: Result - Labs CBC & Chem 7: 04/02/18 05:22 04/02/18 05:22 - ABG Interpretation ABG results: PT/INR, D-dimer PT 15.8 Seconds (9.4-12.1) H 03/30/18 06:58 - Attending Attestation I saw and evaluated the patient at bedside. I have reviewed the progress note obtained and documented by the resident and personally participated in the baltazar components. I have discussed the case and management of the patient's care. I agree with the findings and plan of care.The following comments revise or confirm relevant baltazar components of their note. Abdominal pain better but exam still shows abdominal tenderness imaging does not suggest any new pathology but old post op changes will start a bowel regimen low threshold to get GI or Surgery back on board rest as per resident plan
[2018-04-02] MEDS ORDERED: Furosemide 20 MG/2 ML VIAL IVP ONE ×2 (13:39→16:30)
[2018-04-02] MEDS: Albumin 25% 25gram/100mL 25 GM/100 ML IV.SOLN IVPB SCH ×2 (15:26→17:17)
[2018-04-02] MEDS: *HR* OxyCODONE Immed Rel 5 MG TABLET PO PRN (19:15)
[2018-04-03] MEDS: *HR* Heparin 5,000 UNIT/ML VIAL SQ SCH ×4 (01:32→20:50)
[2018-04-03 02:37] LABS: Basophils % 0.3 %; Eosinophils # 0.1 K/mcL (0.0-0.6); Eosinophils % 0.9 %; Hematocrit 28.7 % (35.3-44.9); Hemoglobin 9.3 g/dL (11.5-15.4); Immature Granulocytes % 4.2 % (0-4); Lymphocytes # 0.5 K/mcL (0.6-4.6); Lymphocytes % 5.8 %; Mean Corpuscular HGB Conc 32.4 g/dL (31.6-35.5); Mean Corpuscular Hemoglobin 28.9 pg (28.0-33.3); Mean Corpuscular Volume 89.1 fL (83.0-100.0); Mean Platelet Volume 9.8 fL (9.4-12.4); Monocytes # 0.3 K/mcL (0.0-1.3); Monocytes % 4.2 %; Neutrophils # 6.7 K/mcL (1.6-8.9); Nucleated Red Blood Cells 0.3 /100 WBC (0); Platelet Count 200 K/mcL (140-400); Red Blood Count 3.22 M/mcL (3.82-4.97); Red Cell Distribution Width 16.8 % (11.5-14.5); Segmented Neutrophils % 84.6 %
[2018-04-03 02:54] LABS: Albumin/Globulin Ratio 1.1 (1.1-2.2); Bilirubin,Total 0.5 mg/dL (0.3-1.0); Calcium 8.4 mg/dL (8.6-10.3); Globulin 2.8 g/dL (2.4-3.5); Potassium 4.2 mEq/L (3.5-5.1); Total Protein 5.8 g/dL (6.4-8.9)
[2018-04-03 06:15] LABS: Calcium 8.2 mg/dL (8.6-10.3); Potassium 4.7 mEq/L (3.5-5.1)
[2018-04-03] MEDS: Budesonide/Formoterol 160/4.5 MDI IH SCH ×2 (08:10→21:48)
[2018-04-03] MEDS ORDERED: Bisacodyl 10 MG RECTAL SUPPOSITORY RC PRN (10:11)
[2018-04-03] MEDS: cefTRIAXone 1,000 MG in Water for inj. (sterile) 20 ML 10 ML IVP SCH (10:25)
[2018-04-03] MEDS: Furosemide 40 MG/4 ML VIAL IVP SCH (10:25)
[2018-04-03] MEDS: *HR* Amiodarone 200 MG TABLET PO SCH (10:25)
[2018-04-03] MEDS: Aspirin Enteric Coated 81 MG Tablet PO SCH (10:25)
[2018-04-03] MEDS: Isosorbide MONOnitrate (24 HR) 60 MG TAB.ER.24H PO SCH (10:25)
[2018-04-03] MEDS: Ondansetron ODT 4 MG TAB.RAPDIS PO PRN (10:36)
--- NOTE | 2018-04-03 14:51 | Internal Med Progress Note ---
Date of Encounter: 04/03/18 Time of Encounter: 08:00 - Assessment and plan (1) Abdominal pain Current Visit: Yes Status: Acute Assessment and plan: Multifactorial: UTI, resolving post-op hematoma, increasing R hydronephrosis ? extrinsic compression from pelvic fluid no BM charted since 03/29, may also be attributed to constipation will try dulcolax suppository today and increase miralax to BID no evidence of pyelonephritis, D6 abx -> complete today if Cr continues to get worse (presumably from worsening mass effect from pelvic fluid), will reconsult surgery (2) UTI (urinary tract infection) Current Visit: Yes Status: Acute Assessment and plan: D6 Rocephin today, d/c after today's dose (3) Anasarca Current Visit: Yes Status: Acute Assessment and plan: patient appears to have total body volume overload but intravascularly depleted -> was given IV lasix 40mg x 2 followed by additional 20mg x 2 with 2 doses of IV albumin yesterday, Cr higher today and BP low normal. hold off all diuretics and imdur, monitor BP closely nutritional supplement for hypoalbuminemia (4) Atrial fibrillation Current Visit: No Status: Chronic Assessment and plan: on bb, amiodarone. Not on AC hold bb in view of borderline BP (5) Chronic kidney disease, stage IV (severe) Current Visit: No Status: Chronic Assessment and plan: Cr slightly increased as above, likely due to diuretic use yesterday but unable to exclude obstructive uropathy from pelvic fluid as a cause in view of the CT finding of R hydronephrosis monitor without diuretic today, may need to reconsult surgery (6) Anemia Current Visit: No Status: Chronic Assessment and plan: likely due to AoCD monitor Qualifiers: Anemia type: other cause Other causes of anemia: other cause, not classified Qualified Code(s): D64.89 - Other specified anemias (7) DVT prophylaxis Current Visit: No Status: Acute Assessment and plan: SQ heparin - Time Spent With Patient Total time spent is greater than 50% in coordination of care (as documented) at patient's floor/unit and/or counseling patient: - Subjective Interval history: Does not complain of significant abdominal pain but has not had any BM and mildly nauseous. No fever/chills, chest pain, SOB. No BM charted since 03/29 - Constitutional Vitals: Temp Pulse Resp BP Pulse Ox 97.7 F 97 16 90/60 93 04/03/18 11:15 04/03/18 11:15 04/03/18 11:15 04/03/18 11:15 04/03/18 11:15 General appearance: Present: A&O X 3, obese Exam: General: Alert and oriented, blind Cardiovascular:Normal S1 & S2, no murmurs or gallops. No JVD. Pulse regular. Lungs:Normal breath sounds, no wheezes or crackles. Abdomen: Firm on palpation but non-tender, no rebound/guarding Extremities:No deformity, no edema or tenderness, no joint swelling. Internal Medicine: Result - Labs CBC & Chem 7: 04/03/18 01:55 04/03/18 05:39 Labs: Short CBC 04/03/18 Range/Units 01:55 WBC 7.9 (4.3-11.1) K/mcL Hgb 9.3 L (11.5-15.4) g/dL Hct 28.7 L (35.3-44.9) % Plt Count 200 (140-400) K/mcL Neutrophils # 6.7 (1.6-8.9) K/mcL BMP 04/03/18 04/03/18 01:55 05:39 Sodium 135 L 134 L Potassium 4.2 4.7 Chloride 103 104 Carbon Dioxide 20 L 19 L BUN 55 H 57 H Creatinine 2.76 H 2.73 H Glucose 96 88 Calcium 8.4 L 8.2 L Liver Function 04/03/18 Range/Units 01:55 Total Bilirubin 0.5 (0.3-1.0) mg/dL AST 25 (13-39) Units/L ALT 10 (7-52) Units/L Alkaline Phosphatase 168 H (34-104) Units/L Albumin 3.0 L (3.5-5.7) g/dL - ABG Interpretation ABG results: PT/INR, D-dimer PT 15.8 Seconds (9.4-12.1) H 03/30/18 06:58 Consult Discharge Plan - Plan Referrals: Lokesh Cooper MD [Primary Care Provider] -
--- NOTE | 2018-04-03 16:59 | Nephrology Progress Note ---
Date of Encounter: 04/03/18 Time of Encounter: 16:57 - Assessment and Plan (1) Acute kidney injury superimposed on CKD Current Visit: No Status: Acute Renal function stable. Continue current therapy. She is at her baseline renal function. Avoid nephrotoxins. Subjective Principal diagnosis: Abdominal Pain Interval history: Patient seen. No new complaint. Patient is asleep Objective - Vital Signs Vital signs: Vital Signs Temp Pulse Resp BP Pulse Ox 04/03/18 15:08 98 F 98 16 93/48 93 04/03/18 11:15 97.7 F 97 16 90/60 93 04/03/18 08:10 16 95 04/03/18 06:51 97.8 F 100 17 99/65 93 04/03/18 04:23 97.4 F L 97 15 96/62 95 04/03/18 00:11 97.6 F 96 17 93/61 95 04/02/18 23:32 18 96 04/02/18 19:35 97.8 F 114 16 123/78 99 Intake and Output 04/03/18 04/03/18 04/03/18 07:59 15:59 23:59 Intake Total 120 / 120 240 / 240 Output Total 200 / 200 150 / 150 Balance -80 / -80 90 / 90 Intake: Oral 120 / 120 240 / 240 Output: Catheter 200 / 200 150 / 150 Other: # Urine Diapers 0 Weight 104 kg Patient Weight 04/03/18 23:59 Weight 104 kg - General Appearance General appearance: Present: well-developed, well-nourished Cardiology: Present: regular rate - Lab 04/03/18 01:55 04/03/18 05:39 Most recent lab results Calcium 8.2 mg/dL (8.6-10.3) L 04/03/18 05:39 Phosphorus 4.6 mg/dL (2.7-4.5) H 03/30/18 06:58 Magnesium 1.6 mg/dL (1.6-2.6) 03/30/18 06:58 Urine Creatinine 89 mg/dL 03/31/18 19:50 Urine Sodium 16.5 mEq/L 03/31/18 19:50 Urine Total Protein 26 mg/dL (1-14) H 03/31/18 19:50 Consult Discharge Plan - Plan Referrals: Lokesh Cooper MD [Primary Care Provider] -
[2018-04-03] MEDS: Fluticasone Propionate Nasal 50 MCG/SPRAY BOTTLE NS SCH (17:31)
[2018-04-04] MEDS: *HR* Heparin 5,000 UNIT/ML VIAL SQ SCH ×3 (05:01→21:01)
[2018-04-04 06:34] LABS: Basophils % 0.4 %; Eosinophils # 0.1 K/mcL (0.0-0.6); Eosinophils % 1.1 %; Hematocrit 30.2 % (35.3-44.9); Hemoglobin 9.7 g/dL (11.5-15.4); Immature Granulocytes % 4.2 % (0-4); Lymphocytes # 0.6 K/mcL (0.6-4.6); Lymphocytes % 5.9 %; Mean Corpuscular HGB Conc 32.1 g/dL (31.6-35.5); Mean Corpuscular Hemoglobin 28.9 pg (28.0-33.3); Mean Corpuscular Volume 89.9 fL (83.0-100.0); Mean Platelet Volume 10.1 fL (9.4-12.4); Monocytes # 0.5 K/mcL (0.0-1.3); Monocytes % 4.7 %; Neutrophils # 8.7 K/mcL (1.6-8.9); Nucleated Red Blood Cells 0.3 /100 WBC (0); Platelet Count 190 K/mcL (140-400); Red Blood Count 3.36 M/mcL (3.82-4.97); Red Cell Distribution Width 16.9 % (11.5-14.5); Segmented Neutrophils % 83.7 %
[2018-04-04 06:55] LABS: Calcium 8.4 mg/dL (8.6-10.3); Potassium 4.6 mEq/L (3.5-5.1)
[2018-04-04] MEDS: Budesonide/Formoterol 160/4.5 MDI IH SCH ×2 (08:16→22:02)
[2018-04-04] MEDS: Aspirin Enteric Coated 81 MG Tablet PO SCH (10:15)
[2018-04-04] MEDS: Loratadine 10 MG TABLET PO SCH (10:15)
[2018-04-04] MEDS: *HR* Amiodarone 200 MG TABLET PO SCH (10:15)
[2018-04-04] MEDS: Fluticasone Propionate Nasal 50 MCG/SPRAY BOTTLE NS SCH (10:20)
--- NOTE | 2018-04-04 12:39 | Event Note ---
Date of Encounter: 04/04/18 Time of Encounter: 12:37 I spoke with the primary service. Pt with a hematoma from a surgery by Dr. Jimenez on 03/10. There are concerns about hydro ureter as a result of the hematoma. I asked for an opinion by urology. There would be no indication for surgical evacuation of the hematoma. Stent placement may be an option vs CT guided drainage if radiology felt necessary.
--- NOTE | 2018-04-04 14:03 | Urology - Consult Note ---
Date of Encounter: 04/04/18 Time of Encounter: 14:02 - Assessment and Plan (1) Hydronephrosis Current Visit: Yes Status: Acute Assessment and plan: I reviewed the CT images. very large pelvic fluid collection described as a hematoma on CT report. Gen surgery has planned to observe. On my review there is very mild hydroureter/nephrosis. There seems to be a transition point in the pelvis near the fluid collection. I agree extrinsic compression of the ureter from the fluid collection could be causing obstruction. At the same time inflammation from the hematoma could be causing decreased peristalsis of the ureter which can also cause a similar appearance. She unfortunately has an atrophic kidney on the left side and I suspect the majority of her renal function is derived from the right kidney. The creatinine is up today but she is producing adequate urine. Will reassess renal function in the morning and hopefully a renal stent will not be required. If the renal function worsens we will definitely need to consider cystoscopy and ureteral stent placement. Alternatively, need to consider management of the large pelvic hematoma as it is now causing other issues such as pain, fullness and potential ureteral obstruction. I will defer management to general surgery but consider interventional radiology drainage. If the patient is percutaneously drained and the fluid appears more serous in nature it will need to be sent for creatinine level to rule out urine. will reassess patient in the AM. Qualifiers: Qualified Code(s): N13.39 - Other hydronephrosis Urology CN:HPI Consult date: 04/04/18 Reason for consult Urology: Hydronephrosis History of present illness: 72-year-old female underwent a lap appendectomy last month. known post op hematoma. pt continues to return to hospital bc of pain. CT from shows large pelvic hematoma. Cr up to 3.0 today. baseline in mid 2 range. pt states no flank pain. unable to eat much bc of fullness. Past Med Surg Social Fam HX - Past Medical History Medical history: arthritis, asthma, atrial fibrillation, CHF, COPD, GERD, hyperlipidemia, hypertension, osteoporosis, renal disease, venous stasis, valvular heart disease, other Additional medical history: blind Psychiatric history: anxiety, depression - Past Surgical History Surgical History: cataract, cholecystectomy, heart valve replacement, herniorrhaphy, hysterectomy, knee replacement, orthopedic, other, sinus surgery , other Additional surgical history: lung surgery - right pleurodesis secondary to pleural effusions after cardiac surgery. "Ross" heart procedure- 1994 [facility] - Social History Smoking Status: Never smoker Smokeless Tobacco Status: No Alcohol use: none Drug use: none - Family History Father History Unknown: Yes Adopted: No Family Member Ethnicity: Non- Living Status: Hx Family Cardiac Disorders: Yes (HD, Pig valve, HD) Hx Family Cancer: Yes (Cancer on lip) Hx Family GI Disorders: Yes (CKD) Hx Family Endocrine Disorder: Yes (Gallstones) Sister Family Member Ethnicity: Non- Living Status: Hx Family Endocrine Disorder: Yes (DM) Mother History Unknown: Yes Adopted: No Family Member Ethnicity: Non- Living Status: Hx Family Cardiac Disorders: Yes (HD, Anemia) Medications and Allergies Cyclosporine [Restasis] 1 drop BOTH EYES BID 04/30/15 [History] Potassium Chloride 20 meq PO DAILY 06/19/16 [History] Calcitriol [Rocaltrol] 0.25 mcg PO DAILY 03/20/17 [History] Loratadine [Claritin] 10 mg PO DAILY 07/20/17 [History] Albuterol Sulfate [Albuterol Inhaler] 2 puff IH Q4HR PRN 08/27/17 [History] Atorvastatin Calcium [Lipitor] 20 mg PO HS 10/06/17 [History] Esomeprazole Magnesium [Nexium] 40 mg PO DAILY 10/06/17 [History] Aspirin Enteric Coated [Aspirin EC] 81 mg PO DAILY tablet. 11/02/17 [Rx] Amiodarone [Cordarone] 200 mg PO DAILY 11/28/17 [History] Docusate [Colace] 100 mg PO BID PRN capsule 12/02/17 [Rx] Fluticasone Propionate Nasal [Flonase] 50 mcg NS DAILY bottle 12/02/17 [Rx] Metoprolol [Lopressor] 50 mg PO BID tablet 12/02/17 [Rx] Acetaminophen [Tylenol] 650 mg PO Q4HR PRN 02/11/18 [History] GuaiFENesin Liq [Robitussin Liq] 200 mg PO Q4HR PRN 02/11/18 [History] Furosemide [Lasix] 40 mg PO DAILY 03/09/18 [History] Quetiapine Fumarate [Seroquel] 50 mg PO HS 03/09/18 [History] Fluticasone/Vilanterol [Breo Ellipta 100-25 Mcg INH] 1 puff IH DAILY 03/29/18 [ History] Isosorbide MONOnitrate (24 HR) [Imdur] 60 mg PO DAILY 03/29/18 [History] Loperamide [Imodium] 2 mg PO Q6H PRN 03/29/18 [History] Ondansetron [Zofran] 8 mg PO Q6H PRN 03/29/18 [History] Oxycodone HCl [Oxaydo] 5 mg PO QID PRN 03/29/18 [History] 3 Allergy/AdvReac Type Severity Reaction Status Date / Time ciprofloxacin [From Cipro] Allergy Hives Verified 03/29/18 21:41 meperidine [From Demerol] AdvReac Vomiting Verified 03/29/18 21:41 Review of Systems - Constitutional fatigue, weakness, no fever(s), no malaise - EENT Nose, mouth and throat: no dizziness - Cardiovascular no chest pain - Respiratory no cough - Gastrointestinal abdominal pain, nausea - Genitourinary Genitourinary: difficulty urinating, no flank pain - Musculoskeletal back pain - Integumentary no erythema - Neurological no confusion - Psychiatric no anxiety Exam Initial Vital Signs Temp Pulse Resp BP Pulse Ox 97.6 F 90 18 110/72 100 03/29/18 11:41 03/29/18 11:41 03/29/18 11:41 03/29/18 11:41 03/29/18 11:41 - General physical appearance Present: no distress, chronically ill - Eyes Present: PERRL - ENT Present: normal nares, no congestion - Neck Present: no masses, no lymphadenopathy - Respiratory Present: normal respiratory effort - Cardiovascular Cardiovascular exam IM: RRR - Abdomen Abdomen: Present: distended (ecchymosis around umbilicus. not acute. tender on deep palpation. ) - Integumentary Absent: lesions, disoriented - Neurologic Absent: disoriented, confused - Additional Findings herrera with clear urine. small debris. Urology Results - Labs 04/04/18 05:32 04/04/18 05:32 Abnormal lab results RBC 3.36 M/mcL (3.82-4.97) L 04/04/18 05:32 Hgb 9.7 g/dL (11.5-15.4) L 04/04/18 05:32 Hct 30.2 % (35.3-44.9) L 04/04/18 05:32 RDW 16.9 % (11.5-14.5) H 04/04/18 05:32 Immature Gran % 4.2 % (0-4) H 04/04/18 05:32 Nucleated RBCs/100 WBC 0.3 /100 WBC (0) H 04/04/18 05:32 PT 15.8 Seconds (9.4-12.1) H 03/30/18 06:58 Sodium 135 mEq/L (136-145) L 04/04/18 05:32 Carbon Dioxide 18 mEq/L (23-29) L 04/04/18 05:32 BUN 64 mg/dL (8-23) H 04/04/18 05:32 Creatinine 3.01 mg/dL (0.60-1.20) H 04/04/18 05:32 Est GFR ( Amer) 18 (> 60) L 04/04/18 05:32 Est GFR (Non-Af Amer) 15 (> 60) L 04/04/18 05:32 Uric Acid 12.7 mg/dL (2.3-7.6) H 03/31/18 06:31 Calcium 8.4 mg/dL (8.6-10.3) L 04/04/18 05:32 Phosphorus 4.6 mg/dL (2.7-4.5) H 03/30/18 06:58 Alkaline Phosphatase 168 Units/L (34-104) H 04/03/18 01:55 Creatine Kinase 13 Units/L (30-223) L 03/31/18 06:31 B-Natriuretic Peptide 379 pg/mL (Less than 100) H 03/29/18 12:28 Serum Total Protein 5.8 g/dL (6.4-8.9) L 04/03/18 01:55 Albumin 3.0 g/dL (3.5-5.7) L 04/03/18 01:55 Prealbumin 5.6 mg/dL (17.0-34.0) L 03/31/18 06:31 HDL Cholesterol 19 mg/dL (40-59) L 03/30/18 06:58 Urine Clarity Cloudy (Clear) A 03/30/18 13:25 Ur Leukocyte Esterase Large (Negative) H 03/30/18 13:25 Urine Microscopic WBC 50-100 per hpf (0-3) H 03/30/18 13:25 Ur Squamous Epith Cells Many per lpf (None-Few) H 03/30/18 13:25 Urine Bacteria Moderate per hpf (None-Few) H 03/30/18 13:25 Granular Casts Few per lpf (None Seen) H 03/30/18 13:25 Urine Mucus Moderate (Few) H 03/30/18 13:25 Urine Yeast Present per hpf (None Seen) H 03/29/18 12:44 Ur Culture Indicated? NO. (NO) A 03/29/18 12:44 Protein/Creatinin Ratio 0.29 mg/mg (0.00-0.20) H 03/31/18 19:50 Urine Total Protein 26 mg/dL (1-14) H 03/31/18 19:50 Diabetes panel 04/04/18 Range/Units 05:32 Sodium 135 L (136-145) mEq/L Potassium 4.6 (3.5-5.1) mEq/L Chloride 104 (98-107) mEq/L Carbon Dioxide 18 L (23-29) mEq/L BUN 64 H (8-23) mg/dL Creatinine 3.01 H (0.60-1.20) mg/dL Glucose 84 (70-105) mg/dL Calcium 8.4 L (8.6-10.3) mg/dL Calcium panel 04/04/18 Range/Units 05:32 Calcium 8.4 L (8.6-10.3) mg/dL Pituitary panel 04/04/18 Range/Units 05:32 Sodium 135 L (136-145) mEq/L Potassium 4.6 (3.5-5.1) mEq/L Chloride 104 (98-107) mEq/L Carbon Dioxide 18 L (23-29) mEq/L BUN 64 H (8-23) mg/dL Creatinine 3.01 H (0.60-1.20) mg/dL Glucose 84 (70-105) mg/dL Calcium 8.4 L (8.6-10.3) mg/dL Adrenal panel 04/04/18 Range/Units 05:32 Sodium 135 L (136-145) mEq/L Potassium 4.6 (3.5-5.1) mEq/L Chloride 104 (98-107) mEq/L Carbon Dioxide 18 L (23-29) mEq/L BUN 64 H (8-23) mg/dL Creatinine 3.01 H (0.60-1.20) mg/dL Glucose 84 (70-105) mg/dL Calcium 8.4 L (8.6-10.3) mg/dL All other labs normal. Consult Discharge Plan - Plan Referrals: Lokesh Cooper MD [Primary Care Provider] -
--- NOTE | 2018-04-04 14:19 | Internal Med Progress Note ---
Date of Encounter: 04/04/18 Time of Encounter: 14:00 - Assessment and plan (1) Chronic kidney disease, stage IV (severe) Current Visit: No Status: Chronic Assessment and plan: Cr continues to trend up, likely due to diuretic use yesterday but unable to exclude obstructive uropathy from pelvic fluid as a cause in view of the CT finding of increasing R hydronephrosis L kidney is atrophic was given AM dose of diuretic yesterday before it was d/osbaldo. Will monitor today without any diuretic spoke to nephrology over the phone, obstructive uropathy could certainly contribute to worsening Cr re-consulted surgery in view of potential hematoma causing R hydronephrosis -> no indication for evacuation of hematoma by surgery, requested for urology's opinion appreciate urology's input -> monitor Cr and if worsens, may require cystoscopy +/- stent placement. Can also consider IR guided drainage. (2) Abdominal pain Current Visit: Yes Status: Acute Assessment and plan: Multifactorial: UTI, resolving post-op hematoma, increasing R hydronephrosis ? extrinsic compression from pelvic fluid no BM charted since 03/29, may also be attributed to constipation -> had BM this AM, continue current bowel regimen no evidence of pyelonephritis, D6 abx -> completed yesterday see above for mx of ?obstructive uropathy (3) Anasarca Current Visit: Yes Status: Acute Assessment and plan: patient appears to have total body volume overload but intravascularly depleted -> was given IV lasix 40mg x 2 followed by additional 20mg x 2 with 2 doses of IV albumin on 04/02, Cr trending up and drop in BP hold off all diuretics and imdur, BP marginally improved nutritional supplement for hypoalbuminemia (4) UTI (urinary tract infection) Current Visit: Yes Status: Acute Assessment and plan: completed Rocephin (5) Atrial fibrillation Current Visit: No Status: Chronic Assessment and plan: on bb, amiodarone. Not on AC hold bb in view of borderline BP (6) Anemia Current Visit: No Status: Chronic Assessment and plan: likely due to AoCD monitor Qualifiers: Anemia type: other cause Other causes of anemia: other cause, not classified Qualified Code(s): D64.89 - Other specified anemias (7) DVT prophylaxis Current Visit: No Status: Acute Assessment and plan: SQ heparin - Time Spent With Patient Total time spent is greater than 50% in coordination of care (as documented) at patient's floor/unit and/or counseling patient: - Subjective Interval history: Had moderate BM this morning, denies nausea or significant abdominal pain. Cr trending up, produced about 25ml/hr of urine for the last 4 hours - Constitutional Vitals: Temp Pulse Resp BP Pulse Ox 98.9 F 105 16 113/80 97 04/04/18 11:06 04/04/18 11:06 04/04/18 11:06 04/04/18 11:06 04/04/18 11:06 General appearance: Present: A&O X 3, obese Exam: General: Alert and oriented, blind Cardiovascular:Normal S1 & S2, no murmurs or gallops. No JVD. Pulse regular. Lungs:Normal breath sounds, no wheezes or crackles. Abdomen: Firm on palpation but non-tender, no rebound/guarding Extremities:diffuse limb swelling consistent with anasarca Internal Medicine: Result - Labs CBC & Chem 7: 04/04/18 05:32 04/04/18 05:32 Labs: Short CBC 04/04/18 Range/Units 05:32 WBC 10.4 (4.3-11.1) K/mcL Hgb 9.7 L (11.5-15.4) g/dL Hct 30.2 L (35.3-44.9) % Plt Count 190 (140-400) K/mcL Neutrophils # 8.7 (1.6-8.9) K/mcL BMP 04/04/18 05:32 Sodium 135 L Potassium 4.6 Chloride 104 Carbon Dioxide 18 L BUN 64 H Creatinine 3.01 H Glucose 84 Calcium 8.4 L - ABG Interpretation ABG results: PT/INR, D-dimer PT 15.8 Seconds (9.4-12.1) H 03/30/18 06:58 Consult Discharge Plan - Plan Referrals: Lokesh Cooper MD [Primary Care Provider] -
--- NOTE | 2018-04-04 17:47 | Nephrology Progress Note ---
Date of Encounter: 04/04/18 Time of Encounter: 10:27 - Assessment and Plan (1) Acute kidney injury superimposed on CKD Current Visit: No Status: Acute Patient's creatinine is slowly trending up. She is nonoliguric, but on a CT scan on Thursday there was hydronephrosis right kidney. Her left kidney is atrophic. I spoke to the primary team and based off the CT finding and associated mild decrease in her renal function I agree with having general surgery and/or urology evaluate the patient. Appreciate general surgery and urology's note. Patient does not emergently need dialysis. Avoid nephrotoxins. Adjust medication for renal function. (2) Anemia Current Visit: No Status: Chronic Patient has anemia. Hemoglobin appears to be stable. Monitor for the need for transfusion. Qualifiers: Anemia type: other cause Other causes of anemia: other cause, not classified Qualified Code(s): D64.89 - Other specified anemias (3) Hydronephrosis Current Visit: Yes Status: Acute Urology following. Qualifiers: Hydronephrosis type: other Qualified Code(s): N13.39 - Other hydronephrosis (4) Pelvic fluid collection Current Visit: Yes Status: Acute Defer management to surgery. Subjective Principal diagnosis: Abdominal Pain Interval history: Patient seen and evaluated. She has some discomfort in her abdomen. She denies aster pain in her abdomen. She denies chest pain, shortness of breath. Her review of system otherwise is stable. Objective - Vital Signs Vital signs: Vital Signs Temp Pulse Resp BP Pulse Ox 04/04/18 14:53 98.3 F 99 17 108/71 96 04/04/18 11:06 98.9 F 105 16 113/80 97 04/04/18 08:16 16 102/61 97 04/04/18 07:07 98.8 F 104 16 102/61 93 04/04/18 04:25 97.5 F L 104 16 103/69 95 04/04/18 00:00 98 F 108 15 106/73 95 04/03/18 21:49 16 94 04/03/18 20:49 99.2 F 107 14 103/70 92 Intake and Output 04/04/18 04/04/18 04/04/18 07:59 15:59 23:59 Intake Total 180 / 180 240 / 240 Output Total 250 / 250 200 / 200 Balance -70 / -70 40 / 40 Intake: Oral 180 / 180 240 / 240 Output: Catheter 250 / 250 200 / 200 Other: Stool Size Moderate Stool Consistency soft Stool Characteristics Pasty Stool Color Brown # Bowel Movements 1 Weight 106.2 kg Patient Weight 04/04/18 23:59 Weight 106.2 kg - General Appearance General appearance: Present: well-developed, well-nourished EENT: Present: ATNC Neck: Present: supple Respiratory: Present: clear (Anteriorly) Cardiology: Present: edema (2 + pitting edema in the bilateral lower extremity' s.) Additional Comments: Tachycardic Gastrointestinal: Present: distended Neurologic: Present: alert and oriented x3 Additional Comments: Patient is blind Musculoskeletal: Present: no cyanosis - Lab 04/04/18 05:32 04/04/18 05:32 Most recent lab results Calcium 8.4 mg/dL (8.6-10.3) L 04/04/18 05:32 Phosphorus 4.6 mg/dL (2.7-4.5) H 03/30/18 06:58 Magnesium 1.6 mg/dL (1.6-2.6) 03/30/18 06:58 Urine Creatinine 89 mg/dL 03/31/18 19:50 Urine Sodium 16.5 mEq/L 03/31/18 19:50 Urine Total Protein 26 mg/dL (1-14) H 03/31/18 19:50 Consult Discharge Plan - Plan Referrals: Lokesh Cooper MD [Primary Care Provider] -
[2018-04-04] MEDS: *HR* HYDROcodone/Acet 5/325 mg TABLET PO PRN (21:02)
[2018-04-05 02:33] LABS: Calcium 8.4 mg/dL (8.6-10.3); Potassium 4.3 mEq/L (3.5-5.1)
[2018-04-05] MEDS: *HR* Heparin 5,000 UNIT/ML VIAL SQ SCH ×3 (05:07→20:38)
--- NOTE | 2018-04-05 06:46 | Event Note ---
Date of Encounter: 04/05/18 Time of Encounter: 06:45 renal function slightly improved. no need for urgent stent today. will await decision regarind possible IR drainage of the hematoma.
[2018-04-05] MEDS: *HR* Amiodarone 200 MG TABLET PO SCH (09:50)
[2018-04-05] MEDS: Aspirin Enteric Coated 81 MG Tablet PO SCH (09:50)
[2018-04-05] MEDS: Fluticasone Propionate Nasal 50 MCG/SPRAY BOTTLE NS SCH (09:51)
[2018-04-05] MEDS: Budesonide/Formoterol 160/4.5 MDI IH SCH ×2 (10:36→20:07)
--- NOTE | 2018-04-05 12:13 | Internal Med Progress Note ---
Date of Encounter: 04/05/18 Time of Encounter: 10:40 - Assessment and plan (1) Chronic kidney disease, stage IV (severe) Current Visit: Yes Status: Chronic Assessment and plan: Cr slightly trended down today with adequote UOP unable to exclude obstructive uropathy from pelvic fluid as a cause in view of the CT finding of increasing R hydronephrosis L kidney is atrophic Continue to monitor without any diuretic spoke to IR regarding percutaneous drainage of the complex pelvic fluid collection, will be done tomorrow Urology also on consult -> follow Cr, no urgent need for stent insertion (2) Abdominal pain Current Visit: Yes Status: Acute Assessment and plan: Multifactorial: UTI, resolving post-op hematoma, increasing R hydronephrosis ? extrinsic compression from pelvic fluid no BM charted since 03/29, may also be attributed to constipation -> had BM yesterday, continue current bowel regimen no evidence of pyelonephritis, D6 abx -> completed see above for mx of ?obstructive uropathy Qualifiers: Abdominal location: unspecified location Qualified Code(s): R10.9 - Unspecified abdominal pain (3) Anasarca Current Visit: Yes Status: Acute Assessment and plan: patient appears to have total body volume overload but intravascularly depleted -> was given IV lasix 40mg x 2 followed by additional 20mg x 2 with 2 doses of IV albumin on 04/02, Cr trending up and drop in BP hold off all diuretics and imdur, BP has improved since then nutritional supplement for hypoalbuminemia (4) Atrial fibrillation Current Visit: No Status: Chronic Assessment and plan: on bb, amiodarone at home. Not on AC HR ~ 100, BP stable. Restart bb if BP tolerates Qualifiers: Atrial fibrillation type: chronic Qualified Code(s): I48.2 - Chronic atrial fibrillation (5) UTI (urinary tract infection) Current Visit: Yes Status: Resolved Assessment and plan: completed Rocephin (6) Anemia Current Visit: No Status: Chronic Assessment and plan: likely due to AoCD monitor Qualifiers: Anemia type: other cause Other causes of anemia: other cause, not classified Qualified Code(s): D64.89 - Other specified anemias (7) DVT prophylaxis Current Visit: No Status: Acute Assessment and plan: SQ heparin - Time Spent With Patient Total time spent is greater than 50% in coordination of care (as documented) at patient's floor/unit and/or counseling patient: 25 - 35 minutes - Subjective Interval history: No new complaints today, intermittent abdominal discomfort but certainly not worsening. Cr slightly came down today with UOP ~ 30cc/hr for the last 24 hours. - Constitutional Vitals: Temp Pulse Resp BP Pulse Ox 97.8 F 113 16 93/59 94 04/05/18 10:50 04/05/18 10:50 04/05/18 10:50 04/05/18 10:50 04/05/18 10:50 General appearance: Present: A&O X 3, obese Exam: General: Alert and oriented, blind Cardiovascular:Normal S1 & S2, no murmurs or gallops. No JVD. Pulse regular. Lungs:Normal breath sounds, no wheezes or crackles. Abdomen: feels softer today on palpation, non-tender, no rebound/guarding Extremities:diffuse limb swelling consistent with anasarca Internal Medicine: Result - Labs CBC & Chem 7: 04/04/18 05:32 04/05/18 01:01 Labs: BMP 04/05/18 01:01 Sodium 135 L Potassium 4.3 Chloride 104 Carbon Dioxide 21 L BUN 64 H Creatinine 2.88 H Glucose 96 Calcium 8.4 L - ABG Interpretation ABG results: PT/INR, D-dimer PT 15.8 Seconds (9.4-12.1) H 03/30/18 06:58 Consult Discharge Plan - Plan Referrals: Lokesh Cooper MD [Primary Care Provider] -
[2018-04-05 13:34] LABS: Bilirubin,Urine Small (Negative); Blood,Urine Moderate (Negative); Clarity,Urine Clear (Clear); Color,Urine Yellow (Yellow); Glucose,Urine (UA) Normal (Normal); Ketones,Urine Negative (Negative); Leukocyte Esterase,Urine Small (Negative); Nitrite,Urine Negative (Negative); PH,Urine 5.5 pH Units (5.0-8.0); Protein,Urine 100 mg/dL (Neg-Trace); Urobilinogen,Urine Normal (Normal)
[2018-04-05 13:39] LABS: Bacteria,Urine None Seen per hpf (None-Few); Squamous Epithelial Cell,Urine Many per lpf (None-Few); WBC,Urine 50-100 per hpf (0-3)
--- NOTE | 2018-04-05 13:55 | General Surgery Progress Note ---
Date of Encounter: 04/05/18 Time of Encounter: 13:52 - Assessment and Plan (1) Abdominal pain Current Visit: Yes Status: Acute Placed order for IR consult to drain complex pelvic fluid. No indications for surgery. Will continue monitoring. Qualifiers: Abdominal location: unspecified location Qualified Code(s): R10.9 - Unspecified abdominal pain Subjective Patient reports: no new complaints, bowel movement, diarrhea Narrative: Patient is in no acute distress. Has moderate pain in lower abdominal quadrants. Reports having bowel water bowel movement today. Patient reports she is drowsy today. Objective Vital Signs - Last 8 Hours Temp Pulse Resp BP Pulse Ox 04/05/18 10:50 97.8 F 113 16 93/59 94 04/05/18 10:41 16 96 04/05/18 06:46 97.6 F 103 15 132/81 96 Intake and Output 04/04/18 04/05/18 04/05/18 23:59 07:59 15:59 Intake Total 240 / 240 50 / 50 120 / 120 Output Total 350 / 350 300 / 300 Balance 240 / 240 -300 / -300 -180 / -180 Intake: Oral 240 / 240 50 / 50 120 / 120 Output: Catheter 350 / 350 300 / 300 Other: Meal Dinner Breakfast Percent of Meal Consumed 15% 25% Stool Size Smear Stool Color Brown # Bowel Movements 1 Weight 107.4 kg Patient Weight 04/05/18 23:59 Weight 107.4 kg - General physical appearance well developed, no distress - Respiratory normal expansion, normal respiratory effort - Cardiovascular Cardiovascular exam: Present: RRR - Abdomen Abdominal Tenderness: RLQ, LLQ - Neurologic CN 2-12 grossly intact - Psychiatric oriented to time, oriented to person, oriented to place, speech is normal - Labs 04/04/18 05:32 04/05/18 01:01 Diabetes panel 04/05/18 Range/Units 01:01 Sodium 135 L (136-145) mEq/L Potassium 4.3 (3.5-5.1) mEq/L Chloride 104 (98-107) mEq/L Carbon Dioxide 21 L (23-29) mEq/L BUN 64 H (8-23) mg/dL Creatinine 2.88 H (0.60-1.20) mg/dL Glucose 96 (70-105) mg/dL Calcium 8.4 L (8.6-10.3) mg/dL Calcium panel 04/05/18 Range/Units 01:01 Calcium 8.4 L (8.6-10.3) mg/dL Pituitary panel 04/05/18 Range/Units 01:01 Sodium 135 L (136-145) mEq/L Potassium 4.3 (3.5-5.1) mEq/L Chloride 104 (98-107) mEq/L Carbon Dioxide 21 L (23-29) mEq/L BUN 64 H (8-23) mg/dL Creatinine 2.88 H (0.60-1.20) mg/dL Glucose 96 (70-105) mg/dL Calcium 8.4 L (8.6-10.3) mg/dL Adrenal panel 04/05/18 Range/Units 01:01 Sodium 135 L (136-145) mEq/L Potassium 4.3 (3.5-5.1) mEq/L Chloride 104 (98-107) mEq/L Carbon Dioxide 21 L (23-29) mEq/L BUN 64 H (8-23) mg/dL Creatinine 2.88 H (0.60-1.20) mg/dL Glucose 96 (70-105) mg/dL Calcium 8.4 L (8.6-10.3) mg/dL Consult Discharge Plan - Plan Referrals: Lokesh Cooper MD [Primary Care Provider] -
[2018-04-05 13:56] LABS: Yeast,Urine Moderate per hpf (None Seen)
--- NOTE | 2018-04-05 14:39 | Nephrology Progress Note ---
Date of Encounter: 04/05/18 Time of Encounter: 10:00 - Assessment and Plan (1) Chronic kidney disease, stage IV (severe) Current Visit: Yes Status: Chronic Relatively stable CKD stage IV without hyperkalemia. Found to have hydro and Urology has been closely following: appreciate Urology and Gen Surgery. She is not hyperkalemic or fluid overloaded and not uremic on my exam, so today she does not have indications for [employer] INCOME [employer]. SCr actually slightly improved. Continue to follow a renal protective strategy. Will follow with you. (2) Hydronephrosis Current Visit: Yes Status: Acute Appreciate urology Qualifiers: Hydronephrosis type: other Qualified Code(s): N13.39 - Other hydronephrosis Subjective Principal diagnosis: Abdominal Pain Interval history: Pt was s/e earlier today. She did not affirm uremic complaints of confusion, N/V , diminished appetite. Objective - Vital Signs Vital signs: Vital Signs Temp Pulse Resp BP Pulse Ox 04/05/18 10:50 97.8 F 113 16 93/59 94 04/05/18 10:41 16 96 04/05/18 06:46 97.6 F 103 15 132/81 96 04/05/18 04:45 97.4 F L 100 15 108/73 98 04/04/18 22:04 18 97 04/04/18 20:22 97.6 F 107 14 137/81 98 04/04/18 14:53 98.3 F 99 17 108/71 96 Intake and Output 04/04/18 04/05/18 04/05/18 23:59 07:59 15:59 Intake Total 240 / 240 50 / 50 120 / 120 Output Total 350 / 350 300 / 300 Balance 240 / 240 -300 / -300 -180 / -180 Intake: Oral 240 / 240 50 / 50 120 / 120 Output: Catheter 350 / 350 300 / 300 Other: Meal Dinner Breakfast Percent of Meal Consumed 15% 25% Stool Size Smear Stool Color Brown # Bowel Movements 1 Weight 107.4 kg Patient Weight 04/05/18 23:59 Weight 107.4 kg - General Appearance General appearance: Present: well-developed, fatigue, frail EENT: Present: ATNC, PERRL Neck: Present: supple Respiratory: Present: course breath sounds Cardiology: Present: edema (1-2+ pitting pretibial edema b/l), normal S1, normal S2 Gastrointestinal: Present: normoactive bowel sounds, no tenderness Integumentary: Present: no rash Neurologic: Present: no asterixis, alert and oriented x3 Musculoskeletal: Present: no clubbing Psychiatric: Present: cooperative - Lab 04/04/18 05:32 04/05/18 01:01 Most recent lab results Calcium 8.4 mg/dL (8.6-10.3) L 04/05/18 01:01 Phosphorus 4.6 mg/dL (2.7-4.5) H 03/30/18 06:58 Magnesium 1.6 mg/dL (1.6-2.6) 03/30/18 06:58 Urine Creatinine 89 mg/dL 03/31/18 19:50 Urine Sodium 16.5 mEq/L 03/31/18 19:50 Urine Total Protein 26 mg/dL (1-14) H 03/31/18 19:50 - Imaging Kidney/bladder ultrasound: image reviewed Consult Discharge Plan - Plan Referrals: Lokesh Cooper MD [Primary Care Provider] -
[2018-04-05] MEDS: *HR* HYDROcodone/Acet 5/325 mg TABLET PO PRN (20:37)
[2018-04-06] MEDS: *HR* Heparin 5,000 UNIT/ML VIAL SQ SCH ×3 (05:53→20:56)
[2018-04-06 07:06] LABS: Eosinophils # 0.2 K/mcL (0.0-0.6); Hematocrit 31.7 % (35.3-44.9); Mean Corpuscular HGB Conc 31.5 g/dL (31.6-35.5); Mean Corpuscular Hemoglobin 28.2 pg (28.0-33.3); Mean Corpuscular Volume 89.3 fL (83.0-100.0); Mean Platelet Volume 10.4 fL (9.4-12.4); Monocytes # 0.5 K/mcL (0.0-1.3); Nucleated Red Blood Cells 0.3 /100 WBC (0); Platelet Count 174 K/mcL (140-400); Red Blood Count 3.55 M/mcL (3.82-4.97); Red Cell Distribution Width 17.1 % (11.5-14.5)
[2018-04-06 07:21] LABS: Calcium 8.6 mg/dL (8.6-10.3); Potassium 4.6 mEq/L (3.5-5.1)
[2018-04-06] MEDS: Loratadine 10 MG TABLET PO SCH (07:52)
[2018-04-06] MEDS: Aspirin Enteric Coated 81 MG Tablet PO SCH (07:52)
[2018-04-06] MEDS: Fluticasone Propionate Nasal 50 MCG/SPRAY BOTTLE NS SCH (07:52)
[2018-04-06] MEDS: *HR* Amiodarone 200 MG TABLET PO SCH (07:53)
[2018-04-06 08:02] LABS: Lymphocytes # 1.2 K/mcL (0.6-4.6); Neutrophils # 9.8 K/mcL (1.6-8.9); Platelet Estimate Normal (Normal)
[2018-04-06] MEDS: Budesonide/Formoterol 160/4.5 MDI IH SCH ×2 (10:32→20:01)
--- NOTE | 2018-04-06 10:43 | Nephrology Progress Note ---
Date of Encounter: 04/06/18 Time of Encounter: 10:41 - Assessment and Plan (1) Chronic kidney disease, stage IV (severe) Current Visit: Yes Status: Chronic Baseline GFR 22-25, she does see Dr. Bustos in the office. GFR 19 today. Continue to avoid nephrotoxins and renal dose all medications. Gen. Surgery EMERGENCY DEPT TECH spoke with IR to drain fluid today. Hopeful this will help perfusion to the right kidney, left is atrophic. CT 04/01/18: There is increasing right-sided hydronephrosis, presumably from compression of the distal right ureteral compression. (2) Hydronephrosis Current Visit: Yes Status: Acute Appreciate Urology and Gen. Surgery recommendations. Usually CKD IV with Akash. Qualifiers: Hydronephrosis type: other Qualified Code(s): N13.39 - Other hydronephrosis (3) Abdominal pain Current Visit: Yes Status: Acute Per primary. Qualifiers: Abdominal location: unspecified location Qualified Code(s): R10.9 - Unspecified abdominal pain (4) UTI (urinary tract infection) Current Visit: Yes Status: Resolved Per primary. Qualifiers: Hematuria presence: without hematuria Qualified Code(s): N39.0 - Urinary tract infection, site not specified Subjective Principal diagnosis: Abdominal Pain Interval history: Pt seen and examined.NAD. Objective - Vital Signs Vital signs: Vital Signs Temp Pulse Resp BP Pulse Ox 04/06/18 10:38 97.8 F 87 16 94/67 99 04/06/18 10:35 16 97 04/06/18 06:38 97.7 F 94 16 113/73 97 04/06/18 03:16 97.6 F 94 15 103/68 97 04/05/18 20:08 16 94 04/05/18 18:51 97.8 F 98 15 96/68 94 04/05/18 15:15 98.3 F 99 18 114/79 94 04/05/18 10:50 97.8 F 113 16 93/59 94 04/05/18 10:41 16 96 Intake and Output 04/05/18 04/06/18 04/06/18 23:59 07:59 15:59 Intake Total 120 / 120 0 / 0 Output Total 0 / 0 0 / 0 350 / 350 Balance 120 / 120 0 / 0 -350 / -350 Intake: Oral 120 / 120 0 / 0 Output: Urine 0 / 0 0 / 0 Catheter 0 / 0 350 / 350 Other: Meal Dinner Percent of Meal Consumed 25% Weight 107.9 kg Blood Glucose* 109 Patient Weight 04/06/18 23:59 Weight 107.9 kg - General Appearance General appearance: Present: well-developed, well-nourished EENT: Present: ATNC, hearing intact Neck: Present: supple Respiratory: Present: clear Cardiology: Present: edema (+2 pitting edema noted to bilateral lower extremities.), normal S1, normal S2 Gastrointestinal: Present: normoactive bowel sounds, no tenderness, no guarding Integumentary: Present: no rash, warm and dry Neurologic: Present: alert and oriented x3 Psychiatric: Present: mood/affect appropriate, cooperative - Lab 04/06/18 06:31 04/06/18 06:31 Most recent lab results Calcium 8.6 mg/dL (8.6-10.3) 04/06/18 06:31 Phosphorus 4.6 mg/dL (2.7-4.5) H 03/30/18 06:58 Magnesium 1.6 mg/dL (1.6-2.6) 03/30/18 06:58 Urine Creatinine 89 mg/dL 03/31/18 19:50 Urine Sodium 16.5 mEq/L 03/31/18 19:50 Urine Total Protein 26 mg/dL (1-14) H 03/31/18 19:50 Consult Discharge Plan - Plan Referrals: Lokesh Cooper MD [Primary Care Provider] -
[2018-04-06] MEDS: *HR* HYDROcodone/Acet 5/325 mg TABLET PO PRN (20:55)
--- NOTE | 2018-04-06 20:55 | Internal Med Progress Note ---
Date of Encounter: 04/06/18 Time of Encounter: 20:55 - Assessment and plan (1) Abdominal pain Current Visit: Yes Status: Acute Qualifiers: Abdominal location: unspecified location Qualified Code(s): R10.9 - Unspecified abdominal pain (2) Atrial fibrillation Current Visit: No Status: Acute Qualifiers: Atrial fibrillation type: persistent Qualified Code(s): I48.1 - Persistent atrial fibrillation (3) COPD (chronic obstructive pulmonary disease) Current Visit: No Status: Chronic Qualifiers: COPD type: unspecified COPD Qualified Code(s): J44.9 - Chronic obstructive pulmonary disease, unspecified (4) GERD (gastroesophageal reflux disease) Current Visit: No Status: Chronic Qualifiers: Esophagitis presence: esophagitis presence not specified Qualified Code(s) : K21.9 - Gastro-esophageal reflux disease without esophagitis - Time Spent With Patient Total time spent is greater than 50% in coordination of care (as documented) at patient's floor/unit and/or counseling patient: 25 - 35 minutes - Subjective Interval history: .. The patient continues to have pain in lower quadrants of abdomen, right more than left. She had the drainage of her pelvic fluid by interventional radiology today. 60 mL of hemorrhagic purulent fluid was removed. The fluid was sent for diagnostic tests. The patient is drowsy. Denies nausea and vomiting. Denies chest pain. Denies difficulty breathing. OBJECTIVE: .. Skin: Free of rash and discoloration. ENMT: Oral/pharyngeal mucosa is normal in appearance. Eyes: Sclera is white. There is no discharge from eyes. Respiratory: Normal breath sounds; no crackles or wheezes. CV: Heart is regular; no gallop or murmur. GI: Abdomen is soft and mildly tender in the right lower quadrant.. There is no palpable mass or visceromegaly. Neuro: There is no focal deficits. ASSESSMENT AND PLAN: .. Abdominal pain. Fluid collection in pelvis. She had an appendectomy about 2 weeks ago. She developed some bleeding/got blood transfusions after the surgery. See notes from surgery. Awaiting cultures. She is not getting any antibiotics at this time. Atrial fibrillation. Rate controlled. We will continue amiodarone and Lopressor. COPD. Stable. We will continue Symbicort and when necessary DuoNeb inhalations. GERD. Under control. Will continue omeprazole. - Constitutional Vitals: Temp Pulse Resp BP Pulse Ox 97.3 F L 101 15 103/70 100 04/06/18 19:53 04/06/18 19:53 04/06/18 20:03 04/06/18 19:53 04/06/18 20:03 General appearance: Present: A&O X 3, obese Internal Medicine: Result - Labs CBC & Chem 7: 04/07/18 07:44 04/07/18 07:44 Labs: Short CBC 04/06/18 Range/Units 06:31 WBC 11.7 H (4.3-11.1) K/mcL Hgb 10.0 L (11.5-15.4) g/dL Hct 31.7 L (35.3-44.9) % Plt Count 174 (140-400) K/mcL Neutrophils # 9.8 H (1.6-8.9) K/mcL BMP 04/06/18 06:31 Sodium 136 Potassium 4.6 Chloride 106 Carbon Dioxide 19 L BUN 69 H Creatinine 2.70 H Glucose 103 Calcium 8.6 - ABG Interpretation ABG results: PT/INR, D-dimer PT 15.8 Seconds (9.4-12.1) H 03/30/18 06:58 - Impressions Impressions Needle Aspiration CT 04/06/18 00:00 IMPRESSION: Successful CT guided placement of abdominal abscess drainage catheter. D/ / Jf Toledo MD / Jf Toledo MD Interpreting Provider: Jf Toledo MD Consult Discharge Plan - Plan Referrals: Lokesh Cooper MD [Primary Care Provider] -
[2018-04-07] MEDS: *HR* Heparin 5,000 UNIT/ML VIAL SQ SCH ×3 (06:24→21:34)
[2018-04-07] MEDS: Budesonide/Formoterol 160/4.5 MDI IH SCH ×2 (07:32→20:40)
--- NOTE | 2018-04-07 08:16 | Urology Progress Note ---
Date of Encounter: 04/07/18 Time of Encounter: 08:15 - Assessment and Plan (1) Hydronephrosis Current Visit: Yes Status: Acute Assessment and plan: awaiting serum creatinine. if creatinine is improving will sign off. will follow up on labs. Qualifiers: Hydronephrosis type: other Qualified Code(s): N13.39 - Other hydronephrosis Progress Note Narrative: patient seen. feeling better after drainage. labs pending. Objective Initial Vital Signs Temp Pulse Resp BP Pulse Ox 97.6 F 90 18 110/72 100 03/29/18 11:41 03/29/18 11:41 03/29/18 11:41 03/29/18 11:41 03/29/18 11:41 - General physical appearance Present: well developed, well nourished - Abdomen Present: soft. Absent: tender (drain in place draining bloody appearing fluid) - Labs 04/06/18 06:31 04/06/18 06:31 Consult Discharge Plan - Plan Referrals: Lokesh Cooper MD [Primary Care Provider] -
[2018-04-07 08:20] LABS: Calcium 8.3 mg/dL (8.6-10.3); Potassium 4.2 mEq/L (3.5-5.1)
[2018-04-07 08:30] LABS: Hematocrit 29.4 % (35.3-44.9); Lymphocytes # 0.7 K/mcL (0.6-4.6); Mean Corpuscular HGB Conc 30.6 g/dL (31.6-35.5); Mean Corpuscular Hemoglobin 27.7 pg (28.0-33.3); Mean Corpuscular Volume 90.5 fL (83.0-100.0); Mean Platelet Volume 10.1 fL (9.4-12.4); Nucleated Red Blood Cells 0.2 /100 WBC (0); Platelet Count 154 K/mcL (140-400); Red Blood Count 3.25 M/mcL (3.82-4.97); Red Cell Distribution Width 17.2 % (11.5-14.5)
[2018-04-07] MEDS: Aspirin Enteric Coated 81 MG Tablet PO SCH (08:32)
[2018-04-07] MEDS: Fluticasone Propionate Nasal 50 MCG/SPRAY BOTTLE NS SCH (08:32)
[2018-04-07] MEDS: *HR* Amiodarone 200 MG TABLET PO SCH (08:32)
[2018-04-07 11:16] LABS: Monocytes # 0.7 K/mcL (0.0-1.3); Neutrophils # 9.5 K/mcL (1.6-8.9)
[2018-04-07 11:17] LABS: Platelet Estimate Normal (Normal)
[2018-04-07] MEDS ORDERED: Albumin 25% 25gram/100mL 25 GM/100 ML IV.SOLN IVPB ONE (12:13)
[2018-04-07] MEDS ORDERED: Furosemide 40 MG/4 ML VIAL IVP ONE (12:14)
--- NOTE | 2018-04-07 13:15 | Nephrology Progress Note ---
Date of Encounter: 04/07/18 Time of Encounter: 13:12 - Assessment and Plan (1) Chronic kidney disease, stage IV (severe) Current Visit: Yes Status: Chronic Baseline GFR 22-25, she does see Dr. Bustos in the office. GFR 20 today. Continue to avoid nephrotoxins and renal dose all medications. Abdominal drain noted. Ordered Albumin and Lasix to help with diuresis. Would recommend a voiding trial tomorrow to see if Parks can be d/osbaldo. (2) Hydronephrosis Current Visit: Yes Status: Acute Appears resolving with hematoma evacuation. Qualifiers: Hydronephrosis type: other Qualified Code(s): N13.39 - Other hydronephrosis (3) Abdominal pain Current Visit: Yes Status: Acute Per primary. Qualifiers: Abdominal location: unspecified location Qualified Code(s): R10.9 - Unspecified abdominal pain (4) Physical deconditioning Current Visit: Yes Status: Acute PT/OT ordered. Subjective Principal diagnosis: Abdominal Pain Interval history: Pt seen and examined.NAD. Objective - Vital Signs Vital signs: Vital Signs Temp Pulse Resp BP Pulse Ox 04/07/18 11:03 97.5 F L 89 18 92/64 98 04/07/18 08:25 100 04/07/18 07:33 18 100 04/07/18 06:47 98.5 F 86 18 93/61 100 04/07/18 04:21 97.4 F L 82 16 94/56 99 04/07/18 01:08 97.4 F L 84 15 94/64 99 04/06/18 20:03 15 100 04/06/18 19:53 97.3 F L 101 15 103/70 100 04/06/18 14:39 97.9 F 89 16 89/68 99 Intake and Output 04/06/18 04/07/18 04/07/18 23:59 07:59 15:59 Intake Total 0 / 0 150 / 150 120 / 120 Output Total 400 / 400 400 / 400 175 / 175 Balance -400 / -400 -250 / -250 -55 / -55 Intake: Oral 0 / 0 150 / 150 120 / 120 Output: Urine 0 / 0 Peracentesis 100 / 100 75 / 75 Catheter 300 / 300 100 / 100 Wound Drainage 400 / 400 0 / 0 Left paracentesis drain 400 / 400 0 / 0 Other: Meal Breakfast Percent of Meal Consumed 10% Stool Size Copious Stool Consistency loose liquid Stool Color Brown # Bowel Movements 0 1 # Bowel Movement Diapers 0 Weight 105 kg Patient Weight 04/07/18 23:59 Weight 105 kg - General Appearance General appearance: Present: well-developed, well-nourished EENT: Present: ATNC, hearing intact Neck: Present: supple Respiratory: Present: clear Cardiology: Present: edema (+2 pitting edema noted bilat lower extremities.), normal S1, normal S2 Gastrointestinal: Present: normoactive bowel sounds, no tenderness, no guarding Integumentary: Present: no rash, warm and dry Neurologic: Present: alert and oriented x3 Psychiatric: Present: mood/affect appropriate, cooperative - Lab 04/07/18 07:44 04/07/18 07:44 Most recent lab results Calcium 8.3 mg/dL (8.6-10.3) L 04/07/18 07:44 Phosphorus 4.6 mg/dL (2.7-4.5) H 03/30/18 06:58 Magnesium 1.6 mg/dL (1.6-2.6) 03/30/18 06:58 Urine Creatinine 89 mg/dL 03/31/18 19:50 Urine Sodium 16.5 mEq/L 03/31/18 19:50 Urine Total Protein 26 mg/dL (1-14) H 03/31/18 19:50 Consult Discharge Plan - Plan Referrals: Lokesh Cooper MD [Primary Care Provider] -
--- NOTE | 2018-04-07 21:48 | Internal Med Progress Note ---
Date of Encounter: 04/07/18 Time of Encounter: 21:48 - Assessment and plan (1) Abdominal pain Current Visit: Yes Status: Acute Qualifiers: Abdominal location: unspecified location Qualified Code(s): R10.9 - Unspecified abdominal pain (2) Atrial fibrillation Current Visit: No Status: Acute Qualifiers: Atrial fibrillation type: persistent Qualified Code(s): I48.1 - Persistent atrial fibrillation (3) COPD (chronic obstructive pulmonary disease) Current Visit: No Status: Chronic Qualifiers: COPD type: unspecified COPD Qualified Code(s): J44.9 - Chronic obstructive pulmonary disease, unspecified (4) GERD (gastroesophageal reflux disease) Current Visit: No Status: Chronic Qualifiers: Esophagitis presence: esophagitis presence not specified Qualified Code(s) : K21.9 - Gastro-esophageal reflux disease without esophagitis - Time Spent With Patient Total time spent is greater than 50% in coordination of care (as documented) at patient's floor/unit and/or counseling patient: 25 - 35 minutes - Subjective Interval history: .. The patient feels pretty good today. She continues to have mild pain in lower abdominal quadrants; right more than left. Denies nausea and vomiting. She seems to have normal appetite. Denies chest pain. Denies difficulty breathing. She has normal urination. OBJECTIVE: .. Skin: Free of rash and discoloration. ENMT: Oral/pharyngeal mucosa is normal in appearance. Eyes: Sclera is white. There is no discharge from eyes. Respiratory: Normal breath sounds; no crackles or wheezes. CV: Heart is regular; no gallop or murmur. GI: Abdomen is soft and mildly tender in the right lower quadrant.. There is no palpable mass or visceromegaly. Neuro: There is no focal deficits. ASSESSMENT AND PLAN: .. Abdominal pain. Fluid collection in pelvis. The fluid was drained by interventional radiology yesterday. They got 60 cc of hemorrhagic/purulent liquid. They sent it for diagnostic testing. She had an appendectomy about 2 weeks ago. She developed some bleeding/got blood transfusions after the surgery. See notes from surgery. Awaiting cultures. She is not getting any antibiotics at this time. Atrial fibrillation. Rate controlled. We will continue amiodarone and Lopressor. COPD. Stable. We will continue Symbicort and when necessary DuoNeb inhalations. GERD. Under control. Will continue omeprazole. Hypertensive renal disease with first CKD stage III. Will continue metoprolol tartrate. See notes from nephrology. - Constitutional Vitals: Temp Pulse Resp BP Pulse Ox 98.4 F 87 18 99/66 100 04/07/18 19:22 04/07/18 19:22 04/07/18 20:40 04/07/18 19:22 04/07/18 20:40 General appearance: Present: A&O X 3, obese Internal Medicine: Result - Labs CBC & Chem 7: 04/07/18 07:44 04/07/18 07:44 Labs: Short CBC 04/07/18 Range/Units 07:44 WBC 10.8 (4.3-11.1) K/mcL Hgb 9.0 L (11.5-15.4) g/dL Hct 29.4 L (35.3-44.9) % Plt Count 154 (140-400) K/mcL Neutrophils # 9.5 H (1.6-8.9) K/mcL BMP 04/07/18 07:44 Sodium 135 L Potassium 4.2 Chloride 106 Carbon Dioxide 22 L BUN 62 H Creatinine 2.42 H Glucose 90 Calcium 8.3 L - ABG Interpretation ABG results: PT/INR, D-dimer PT 15.8 Seconds (9.4-12.1) H 03/30/18 06:58 Consult Discharge Plan - Plan Referrals: Lokesh Cooper MD [Primary Care Provider] -
[2018-04-07] MEDS: *HR* OxyCODONE Immed Rel 5 MG TABLET PO PRN (22:26)
[2018-04-08] MEDS: *HR* Heparin 5,000 UNIT/ML VIAL SQ SCH ×3 (06:21→21:38)
[2018-04-08 06:54] LABS: Basophils % 0.3 %; Eosinophils # 0.1 K/mcL (0.0-0.6); Hematocrit 30.8 % (35.3-44.9); Hemoglobin 9.5 g/dL (11.5-15.4); Immature Granulocytes % 6.1 % (0-4); Lymphocytes # 0.9 K/mcL (0.6-4.6); Lymphocytes % 7.8 %; Mean Corpuscular HGB Conc 30.8 g/dL (31.6-35.5); Mean Corpuscular Hemoglobin 28.5 pg (28.0-33.3); Mean Corpuscular Volume 92.5 fL (83.0-100.0); Mean Platelet Volume 10.2 fL (9.4-12.4); Monocytes # 0.5 K/mcL (0.0-1.3); Monocytes % 4.3 %; Nucleated Red Blood Cells 0.2 /100 WBC (0); Platelet Count 151 K/mcL (140-400); Red Blood Count 3.33 M/mcL (3.82-4.97); Red Cell Distribution Width 17.2 % (11.5-14.5); Segmented Neutrophils % 80.5 %
[2018-04-08 06:59] LABS: Neutrophils # 8.9 K/mcL (1.6-8.9)
[2018-04-08 07:06] LABS: Calcium 8.5 mg/dL (8.6-10.3); Potassium 4.2 mEq/L (3.5-5.1)
[2018-04-08 07:39] LABS: Platelet Estimate Normal (Normal)
[2018-04-08] MEDS ORDERED: Albumin 25% 25gram/100mL 25 GM/100 ML IV.SOLN IVPB ONE (08:01)
[2018-04-08] MEDS ORDERED: Furosemide 40 MG/4 ML VIAL IVP ONE (08:02)
--- NOTE | 2018-04-08 08:03 | Nephrology Progress Note ---
Date of Encounter: 04/08/18 Time of Encounter: 08:03 - Assessment and Plan (1) Chronic kidney disease, stage IV (severe) Current Visit: Yes Status: Chronic Baseline GFR 22-25, she does see Dr. Bustos in the office. GFR 21 today. Continue to avoid nephrotoxins and renal dose all medications. Abdominal drain noted. Ordered Albumin and Lasix to help with diuresis yesterday and will order again today. Pt is very edematous, but pt verified today that she is typically "puffy" in bilat lower extremities. (2) Hydronephrosis Current Visit: Yes Status: Acute Appears resolving with hematoma evacuation. Qualifiers: Hydronephrosis type: other Qualified Code(s): N13.39 - Other hydronephrosis (3) Abdominal pain Current Visit: Yes Status: Acute Per primary. Qualifiers: Abdominal location: unspecified location Qualified Code(s): R10.9 - Unspecified abdominal pain (4) Physical deconditioning Current Visit: Yes Status: Acute PT/OT ordered. Subjective Principal diagnosis: Abdominal Pain Interval history: Pt seen and examined.NAD. Objective - Vital Signs Vital signs: Vital Signs Temp Pulse Resp BP Pulse Ox 04/08/18 07:42 97.4 F L 89 16 103/69 93 04/08/18 03:31 98.3 F 87 15 94/63 100 04/08/18 00:06 98.2 F 96 15 102/69 98 04/07/18 20:40 18 100 04/07/18 19:22 98.4 F 87 16 99/66 100 04/07/18 14:26 97.5 F L 84 16 94/64 99 04/07/18 11:03 97.5 F L 89 18 92/64 98 04/07/18 08:25 100 Intake and Output 04/07/18 04/08/18 04/08/18 23:59 07:59 15:59 Intake Total 770 / 770 0 / 0 Output Total 1240 / 1240 Balance 770 / 770 -1240 / -1240 Intake: Oral 770 / 770 0 / 0 Output: Peracentesis 125 / 125 Catheter 1050 / 1050 Wound Drainage Left paracentesis drain Other: Meal Lunch Percent of Meal Consumed 25% Stool Size Smear Stool Consistency liquid Stool Color Brown # Bowel Movement Diapers 1 Weight 103.7 kg Patient Weight 04/08/18 23:59 Weight 103.7 kg - General Appearance General appearance: Present: chronically ill, frail EENT: Present: ATNC, hearing intact Neck: Present: supple Respiratory: Present: clear Cardiology: Present: edema (+3 pitting edema to bilat feet. +2 pitting edema noted to bilat hips.), normal S1, normal S2 Gastrointestinal: Present: normoactive bowel sounds, no tenderness, no guarding Integumentary: Present: no rash, warm and dry Neurologic: Present: alert and oriented x3 Psychiatric: Present: mood/affect appropriate, cooperative - Lab 04/08/18 06:30 04/08/18 06:30 Most recent lab results Calcium 8.5 mg/dL (8.6-10.3) L 04/08/18 06:30 Phosphorus 4.6 mg/dL (2.7-4.5) H 03/30/18 06:58 Magnesium 1.6 mg/dL (1.6-2.6) 03/30/18 06:58 Urine Creatinine 89 mg/dL 03/31/18 19:50 Urine Sodium 16.5 mEq/L 03/31/18 19:50 Urine Total Protein 26 mg/dL (1-14) H 03/31/18 19:50 Consult Discharge Plan - Plan Referrals: Lokesh Cooper MD [Primary Care Provider] -
[2018-04-08] MEDS: Fluticasone Propionate Nasal 50 MCG/SPRAY BOTTLE NS SCH (09:27)
[2018-04-08] MEDS: Loratadine 10 MG TABLET PO SCH (09:27)
[2018-04-08] MEDS: Aspirin Enteric Coated 81 MG Tablet PO SCH (09:27)
[2018-04-08] MEDS: *HR* HYDROcodone/Acet 5/325 mg TABLET PO PRN (09:51)
[2018-04-08] MEDS: Budesonide/Formoterol 160/4.5 MDI IH SCH ×2 (10:43→22:40)
[2018-04-08] MEDS: *HR* Amiodarone 200 MG TABLET PO SCH (12:33)
[2018-04-08] MEDS: Ondansetron ODT 4 MG TAB.RAPDIS PO PRN (13:14)
--- NOTE | 2018-04-08 22:51 | Internal Med Progress Note ---
Date of Encounter: 04/08/18 Time of Encounter: 22:42 - Assessment and plan (1) Abdominal pain Current Visit: Yes Status: Acute Qualifiers: Abdominal location: unspecified location Qualified Code(s): R10.9 - Unspecified abdominal pain (2) Atrial fibrillation Current Visit: No Status: Acute Qualifiers: Atrial fibrillation type: persistent Qualified Code(s): I48.1 - Persistent atrial fibrillation (3) GERD (gastroesophageal reflux disease) Current Visit: No Status: Chronic Qualifiers: Esophagitis presence: esophagitis presence not specified Qualified Code(s) : K21.9 - Gastro-esophageal reflux disease without esophagitis (4) Hypertensive renal disease with renal failure Current Visit: Yes Status: Chronic (5) Anemia Current Visit: Yes Status: Chronic Qualifiers: Anemia type: other cause Other causes of anemia: chronic disease, other Qualified Code(s): D63.8 - Anemia in other chronic diseases classified elsewhere - Time Spent With Patient Total time spent is greater than 50% in coordination of care (as documented) at patient's floor/unit and/or counseling patient: 25 - 35 minutes - Subjective Interval history: .. She complains of nausea but not vomiting. She complains of lower abdominal pain. KARAN catheter was inserted by interventional radiology. It keeps draining fair amounts of hemorrhagic/purulent fluid. The patient is bedbound. She is legally blind. She needs assistance with feeding. OBJECTIVE: .. Skin: Free of rash and discoloration. ENMT: Oral/pharyngeal mucosa is normal in appearance. Eyes: Sclera is white. There is no discharge from eyes. Respiratory: Normal breath sounds; no crackles or wheezes. CV: Heart is regular; no gallop or murmur. GI: Abdomen is soft and mildly tender in the right lower quadrant.. There is no palpable mass or visceromegaly. Neuro: There is no focal deficits. ASSESSMENT AND PLAN: .. Abdominal pain. Fluid collection in pelvis, suspected of abscess. KARAN drain was inserted by interventional radiology the day before yesterday. We will continue drainage. She had an appendectomy about 2 weeks ago. She developed some bleeding/got blood transfusions after the surgery. See notes from surgery. Awaiting cultures. She is not getting any antibiotics at this time. Atrial fibrillation. Rate controlled. We will continue amiodarone and Lopressor. She is not a candidate for anticoagulation. COPD. Stable. We will continue Symbicort and when necessary DuoNeb inhalations. GERD. Under control. Will continue omeprazole. Hypertensive renal disease with first CKD stage III. Will continue metoprolol tartrate. See notes from nephrology. - Constitutional Vitals: Temp Pulse Resp BP Pulse Ox 98.1 F 94 16 90/59 97 04/08/18 19:12 04/08/18 19:12 04/08/18 19:12 04/08/18 19:12 04/08/18 19:12 General appearance: Present: A&O X 3, obese Internal Medicine: Result - Labs CBC & Chem 7: 04/11/18 07:15 04/11/18 07:15 Labs: Short CBC 04/08/18 Range/Units 06:30 WBC 11.1 (4.3-11.1) K/mcL Hgb 9.5 L (11.5-15.4) g/dL Hct 30.8 L (35.3-44.9) % Plt Count 151 (140-400) K/mcL Neutrophils # 8.9 (1.6-8.9) K/mcL BMP 04/08/18 06:30 Sodium 136 Potassium 4.2 Chloride 105 Carbon Dioxide 25 BUN 62 H Creatinine 2.32 H Glucose 98 Calcium 8.5 L - ABG Interpretation ABG results: PT/INR, D-dimer PT 15.8 Seconds (9.4-12.1) H 03/30/18 06:58 Consult Discharge Plan - Plan Referrals: Lokesh Cooper MD [Primary Care Provider] -
[2018-04-09] MEDS: Budesonide/Formoterol 160/4.5 MDI IH SCH ×2 (14:15→22:43)
[2018-04-09] MEDS: Ondansetron ODT 4 MG TAB.RAPDIS PO PRN (15:38)
[2018-04-09] MEDS: *HR* Heparin 5,000 UNIT/ML VIAL SQ SCH ×2 (19:06→19:08)
[2018-04-09] MEDS: Aspirin Enteric Coated 81 MG Tablet PO SCH (19:07)
[2018-04-09] MEDS: Fluticasone Propionate Nasal 50 MCG/SPRAY BOTTLE NS SCH (19:08)
[2018-04-09] MEDS: *HR* Amiodarone 200 MG TABLET PO SCH (19:08)
[2018-04-09] MEDS: *HR* HYDROcodone/Acet 5/325 mg TABLET PO PRN (19:48)
--- NOTE | 2018-04-09 21:04 | Internal Med Progress Note ---
Date of Encounter: 04/09/18 Time of Encounter: 21:03 - Assessment and plan (1) Abdominal pain Current Visit: Yes Status: Acute Qualifiers: Abdominal location: unspecified location Qualified Code(s): R10.9 - Unspecified abdominal pain (2) Atrial fibrillation Current Visit: No Status: Acute Qualifiers: Atrial fibrillation type: persistent Qualified Code(s): I48.1 - Persistent atrial fibrillation (3) GERD (gastroesophageal reflux disease) Current Visit: No Status: Chronic Qualifiers: Esophagitis presence: esophagitis presence not specified Qualified Code(s) : K21.9 - Gastro-esophageal reflux disease without esophagitis (4) Hypertensive renal disease with renal failure Current Visit: Yes Status: Chronic (5) Anemia Current Visit: Yes Status: Chronic Qualifiers: Anemia type: other cause Other causes of anemia: chronic disease, other Qualified Code(s): D63.8 - Anemia in other chronic diseases classified elsewhere - Time Spent With Patient Total time spent is greater than 50% in coordination of care (as documented) at patient's floor/unit and/or counseling patient: 25 - 35 minutes - Subjective Interval history: .. She she continues to have nausea but not vomiting. She does not complain of lower abdominal pain. KARAN catheter was inserted by interventional radiology. It keeps draining fair amounts of hemorrhagic/purulent fluid. The patient is bedbound. She is legally blind. She needs assistance with feeding. OBJECTIVE: .. Skin: Free of rash and discoloration. ENMT: Oral/pharyngeal mucosa is normal in appearance. Eyes: Sclera is white. There is no discharge from eyes. Respiratory: Normal breath sounds; no crackles or wheezes. CV: Heart is regular; no gallop or murmur. GI: Abdomen is soft and mildly tender in the right lower quadrant.. There is no palpable mass or visceromegaly. Neuro: There is no focal deficits. ASSESSMENT AND PLAN: .. Abdominal pain. Fluid collection in pelvis, suspected of abscess. KARAN drain was inserted by interventional radiology the day before yesterday. We will continue drainage. She had an appendectomy about 2 weeks ago. She developed some bleeding/got blood transfusions after the surgery. See notes from surgery. Awaiting cultures. She is not getting any antibiotics at this time. We will treat her nausea with low dose Phenergan and when necessary sublingual Zofran. Atrial fibrillation. Rate controlled. We will continue amiodarone and Lopressor. She is not a candidate for anticoagulation. COPD. Stable. We will continue Symbicort and when necessary DuoNeb inhalations. GERD. Under control. Will continue omeprazole. Hypertensive renal disease with first CKD stage III. Will continue metoprolol tartrate. See notes from nephrology. - Constitutional Vitals: Temp Pulse Resp BP Pulse Ox 97.8 F 90 16 110/71 98 04/09/18 19:42 04/09/18 19:42 04/09/18 19:42 04/09/18 19:42 04/09/18 19:42 General appearance: Present: A&O X 3, obese Internal Medicine: Result - Labs CBC & Chem 7: 04/11/18 07:15 04/11/18 07:15 - ABG Interpretation ABG results: PT/INR, D-dimer PT 15.8 Seconds (9.4-12.1) H 03/30/18 06:58 - VTE Documentation of Mechanical Device: Intermittent pneumatic compression device Consult Discharge Plan - Plan Referrals: Lokesh Cooper MD [Primary Care Provider] -
[2018-04-10] MEDS: *HR* Heparin 5,000 UNIT/ML VIAL SQ SCH ×4 (03:41→20:55)
[2018-04-10] MEDS: *HR* OxyCODONE Immed Rel 5 MG TABLET PO PRN (05:27)
[2018-04-10] MEDS: Budesonide/Formoterol 160/4.5 MDI IH SCH ×2 (07:44→20:10)
[2018-04-10] MEDS: *HR* HYDROcodone/Acet 5/325 mg TABLET PO PRN (09:18)
[2018-04-10] MEDS: Loratadine 10 MG TABLET PO SCH (09:18)
[2018-04-10] MEDS: Aspirin Enteric Coated 81 MG Tablet PO SCH (09:18)
[2018-04-10] MEDS: Ondansetron ODT 4 MG TAB.RAPDIS PO PRN ×2 (09:19→15:27)
[2018-04-10] MEDS: *HR* Amiodarone 200 MG TABLET PO SCH (09:19)
[2018-04-10] MEDS: Fluticasone Propionate Nasal 50 MCG/SPRAY BOTTLE NS SCH (09:23)
[2018-04-10 10:13] LABS: Basophils % 0.2 %; Calcium 8.6 mg/dL (8.6-10.3); Eosinophils # 0.1 K/mcL (0.0-0.6); Eosinophils % 0.6 %; Hematocrit 32.4 % (35.3-44.9); Hemoglobin 10.2 g/dL (11.5-15.4); Immature Granulocytes % 4.4 % (0-4); Lymphocytes # 1.5 K/mcL (0.6-4.6); Lymphocytes % 9.3 %; Magnesium 2.1 mg/dL (1.6-2.6); Mean Corpuscular HGB Conc 31.5 g/dL (31.6-35.5); Mean Corpuscular Hemoglobin 28.8 pg (28.0-33.3); Mean Corpuscular Volume 91.5 fL (83.0-100.0); Mean Platelet Volume 10.6 fL (9.4-12.4); Monocytes # 0.5 K/mcL (0.0-1.3); Monocytes % 3.2 %; Neutrophils # 13.5 K/mcL (1.6-8.9); Nucleated Red Blood Cells 0.1 /100 WBC (0); Platelet Count 170 K/mcL (140-400); Red Blood Count 3.54 M/mcL (3.82-4.97); Red Cell Distribution Width 17.5 % (11.5-14.5); Segmented Neutrophils % 82.3 %
--- NOTE | 2018-04-10 21:38 | Internal Med Progress Note ---
Date of Encounter: 04/10/18 Time of Encounter: 21:34 - Assessment and plan (1) Abdominal pain Current Visit: Yes Status: Acute Qualifiers: Abdominal location: unspecified location Qualified Code(s): R10.9 - Unspecified abdominal pain (2) Atrial fibrillation Current Visit: No Status: Acute Qualifiers: Atrial fibrillation type: persistent Qualified Code(s): I48.1 - Persistent atrial fibrillation (3) COPD (chronic obstructive pulmonary disease) Current Visit: No Status: Chronic Qualifiers: COPD type: unspecified COPD Qualified Code(s): J44.9 - Chronic obstructive pulmonary disease, unspecified (4) GERD (gastroesophageal reflux disease) Current Visit: No Status: Chronic Qualifiers: Esophagitis presence: esophagitis presence not specified Qualified Code(s) : K21.9 - Gastro-esophageal reflux disease without esophagitis - Time Spent With Patient Total time spent is greater than 50% in coordination of care (as documented) at patient's floor/unit and/or counseling patient: 25 - 35 minutes - Subjective Interval history: .. She continues to have nausea but not vomiting. She does not complain of lower abdominal pain. KARAN catheter was inserted by interventional radiology. It keeps draining fair amounts of hemorrhagic/purulent fluid. The patient is bedbound. She is legally blind. She needs assistance with feeding. OBJECTIVE: .. Skin: Free of rash and discoloration. ENMT: Oral/pharyngeal mucosa is normal in appearance. Eyes: Sclera is white. There is no discharge from eyes. Respiratory: Normal breath sounds; no crackles or wheezes. CV: Heart is regular; no gallop or murmur. GI: Abdomen is soft and mildly tender in the right lower quadrant.. There is no palpable mass or visceromegaly. Neuro: There is no focal deficits. ASSESSMENT AND PLAN: .. Abdominal pain. Fluid collection in pelvis, suspected of abscess. She is afebrile. Her WBC from today is 16.4; 11.1 two days ago. KARAN drain was inserted by interventional radiology. We will continue drainage. She had an appendectomy about 2 weeks ago. She developed some bleeding/got blood transfusions after the surgery. See notes from surgery. Awaiting cultures. She is not getting any antibiotics at this time. We will treat her nausea with low dose Phenergan and when necessary sublingual Zofran. Atrial fibrillation. Rate controlled. We will continue amiodarone and Lopressor. She is not a candidate for anticoagulation. COPD. Stable. We will continue Symbicort and when necessary DuoNeb inhalations. GERD. Under control. Will continue omeprazole. Hypertensive renal disease with first CKD stage III. Will continue metoprolol tartrate. See notes from nephrology. - Constitutional Vitals: Temp Pulse Resp BP Pulse Ox 97.5 F L 82 15 110/71 99 04/10/18 19:04 04/10/18 19:04 04/10/18 20:12 04/10/18 19:04 04/10/18 20:12 General appearance: Present: A&O X 3, obese Internal Medicine: Result - Labs CBC & Chem 7: 04/11/18 07:15 04/11/18 07:15 Labs: Short CBC 04/10/18 Range/Units 09:17 WBC 16.4 H (4.3-11.1) K/mcL Hgb 10.2 L (11.5-15.4) g/dL Hct 32.4 L (35.3-44.9) % Plt Count 170 (140-400) K/mcL Neutrophils # 13.5 H (1.6-8.9) K/mcL BMP 04/10/18 09:17 Sodium 135 L Potassium 4.0 Chloride 104 Carbon Dioxide 23 BUN 51 H Creatinine 1.88 H Glucose 96 Calcium 8.6 - ABG Interpretation ABG results: PT/INR, D-dimer PT 15.8 Seconds (9.4-12.1) H 03/30/18 06:58 - VTE Documentation of Mechanical Device: Intermittent pneumatic compression device Consult Discharge Plan - Plan Referrals: Lokesh Cooper MD [Primary Care Provider] -
[2018-04-11] MEDS: *HR* Heparin 5,000 UNIT/ML VIAL SQ SCH ×3 (06:02→21:10)
[2018-04-11 07:32] LABS: Basophils % 0.2 %; Eosinophils # 0.1 K/mcL (0.0-0.6); Eosinophils % 0.6 %; Hematocrit 33.3 % (35.3-44.9); Hemoglobin 10.4 g/dL (11.5-15.4); Immature Granulocytes % 4.1 % (0-4); Lymphocytes # 0.9 K/mcL (0.6-4.6); Lymphocytes % 6.1 %; Mean Corpuscular HGB Conc 31.2 g/dL (31.6-35.5); Mean Corpuscular Hemoglobin 28.7 pg (28.0-33.3); Mean Platelet Volume 9.5 fL (9.4-12.4); Monocytes # 0.7 K/mcL (0.0-1.3); Neutrophils # 12.2 K/mcL (1.6-8.9); Platelet Count 186 K/mcL (140-400); Red Blood Count 3.62 M/mcL (3.82-4.97); Red Cell Distribution Width 17.8 % (11.5-14.5)
[2018-04-11 07:53] LABS: Calcium 8.7 mg/dL (8.6-10.3)
[2018-04-11] MEDS: Budesonide/Formoterol 160/4.5 MDI IH SCH ×2 (07:56→19:29)
[2018-04-11] MEDS: Aspirin Enteric Coated 81 MG Tablet PO SCH (11:01)
[2018-04-11] MEDS: *HR* Amiodarone 200 MG TABLET PO SCH (11:01)
[2018-04-11] MEDS: Fluticasone Propionate Nasal 50 MCG/SPRAY BOTTLE NS SCH (11:01)
--- NOTE | 2018-04-11 23:03 | Internal Med Progress Note ---
Date of Encounter: 04/11/18 Time of Encounter: 23:03 - Assessment and plan (1) Abdominal pain Current Visit: Yes Status: Acute Qualifiers: Abdominal location: unspecified location Qualified Code(s): R10.9 - Unspecified abdominal pain (2) Atrial fibrillation Current Visit: No Status: Acute Qualifiers: Atrial fibrillation type: persistent Qualified Code(s): I48.1 - Persistent atrial fibrillation (3) GERD (gastroesophageal reflux disease) Current Visit: No Status: Chronic Qualifiers: Esophagitis presence: esophagitis presence not specified Qualified Code(s) : K21.9 - Gastro-esophageal reflux disease without esophagitis (4) Hypertensive renal disease with renal failure Current Visit: Yes Status: Chronic (5) Anemia Current Visit: Yes Status: Chronic Qualifiers: Anemia type: other cause Other causes of anemia: chronic disease, other Qualified Code(s): D63.8 - Anemia in other chronic diseases classified elsewhere - Time Spent With Patient Total time spent is greater than 50% in coordination of care (as documented) at patient's floor/unit and/or counseling patient: 25 - 35 minutes - Subjective Interval history: .. Her nausea seems to be under control. She denies abdominal pain. KARAN catheter is draining fair amounts of hemorrhagic/purulent fluid. It was 350 cc and 425 cc in the last 2 days. The patient is bedbound. She is legally blind. She needs assistance with feeding. OBJECTIVE: .. Skin: Free of rash and discoloration. ENMT: Oral/pharyngeal mucosa is normal in appearance. Eyes: Sclera is white. There is no discharge from eyes. Respiratory: Normal breath sounds; no crackles or wheezes. CV: Heart is regular; no gallop or murmur. GI: Abdomen is soft and mildly tender in the right lower quadrant.. There is no palpable mass or visceromegaly. ASSESSMENT AND PLAN: .. Abdominal pain. Fluid collection in pelvis, suspected of abscess. She is afebrile. Her WBC from today is 14.5 thousand; 16.4 thousand yesterday. KARAN drain was inserted by interventional radiology. We will continue drainage. She had an appendectomy about 2 weeks ago. She developed some bleeding/got blood transfusions after the surgery. See notes from surgery. Awaiting cultures. She is not getting any antibiotics at this time. We will treat her nausea with low dose Phenergan and when necessary sublingual Zofran. Atrial fibrillation. Rate controlled. We will continue amiodarone and Lopressor. She is not a candidate for anticoagulation. COPD. Stable. We will continue Symbicort and when necessary DuoNeb inhalations. GERD. Under control. Will continue omeprazole. Hypertensive renal disease with first CKD stage III. Will continue metoprolol tartrate. See notes from nephrology. - Constitutional Vitals: Temp Pulse Resp BP Pulse Ox 97.7 F 88 14 123/69 98 04/11/18 19:56 04/11/18 19:56 04/11/18 19:56 04/11/18 19:56 04/11/18 19:56 General appearance: Present: A&O X 3, obese Internal Medicine: Result - Labs CBC & Chem 7: 04/11/18 07:15 04/11/18 07:15 Labs: Short CBC 04/11/18 Range/Units 07:15 WBC 14.5 H (4.3-11.1) K/mcL Hgb 10.4 L (11.5-15.4) g/dL Hct 33.3 L (35.3-44.9) % Plt Count 186 (140-400) K/mcL Neutrophils # 12.2 H (1.6-8.9) K/mcL BMP 04/11/18 07:15 Sodium 138 Potassium 4.0 Chloride 104 Carbon Dioxide 26 BUN 50 H Creatinine 1.90 H Glucose 95 Calcium 8.7 - ABG Interpretation ABG results: PT/INR, D-dimer PT 15.8 Seconds (9.4-12.1) H 03/30/18 06:58 - VTE Documentation of Mechanical Device: Intermittent pneumatic compression device Consult Discharge Plan - Plan Referrals: Lokesh Cooper MD [Primary Care Provider] -
[2018-04-12] MEDS: *HR* Heparin 5,000 UNIT/ML VIAL SQ SCH ×3 (05:47→22:17)
[2018-04-12] MEDS: Budesonide/Formoterol 160/4.5 MDI IH SCH ×2 (07:29→20:41)
[2018-04-12] MEDS: Loratadine 10 MG TABLET PO SCH (09:04)
[2018-04-12] MEDS: Fluticasone Propionate Nasal 50 MCG/SPRAY BOTTLE NS SCH (09:05)
[2018-04-12] MEDS: *HR* Amiodarone 200 MG TABLET PO SCH (09:05)
[2018-04-12] MEDS: Aspirin Enteric Coated 81 MG Tablet PO SCH (09:05)
[2018-04-12] MEDS: *HR* HYDROcodone/Acet 5/325 mg TABLET PO PRN ×2 (11:58→18:29)
--- NOTE | 2018-04-12 17:41 | General Surgery Progress Note ---
Date of Encounter: 04/12/18 Time of Encounter: 17:39 - Assessment and Plan (1) Abnormal CT of the abdomen Current Visit: No Status: Acute (2) Intra-abdominal hematoma Current Visit: Yes Status: Acute patient s/p IR drain placement into hematoma - is infected, start antibiotics - meropenum and consult to ID need to leave drain in place at this time, no dot remove Qualifiers: Encounter type: initial encounter Qualified Code(s): S36.92XA - Contusion of unspecified intra-abdominal organ, initial encounter (3) Leukocytosis Current Visit: Yes Status: Acute continue antibiotics Qualifiers: Leukocytosis type: unspecified Qualified Code(s): D72.829 - Elevated white blood cell count, unspecified Subjective Patient reports: no new complaints, still having pain, pain is less, tolerating liquids well, flatus, bowel movement, afebrile Objective Vital Signs - Last 8 Hours Temp Pulse Resp BP Pulse Ox 04/12/18 14:42 98.0 F 79 18 106/66 98 04/12/18 10:44 97.8 F 78 16 115/68 100 Intake and Output 04/12/18 04/12/18 04/12/18 07:59 15:59 23:59 Intake Total 120 / 120 Output Total 300 / 300 550 / 550 100 / 100 Balance -300 / -300 -430 / -430 -100 / -100 Intake: Oral 120 / 120 Output: Urine 100 / 100 Catheter 200 / 200 300 / 300 50 / 50 Urethral (Parks) 50 / 50 50 / 50 Wound Drainage 100 / 100 150 / 150 50 / 50 Left paracentesis drain 100 / 100 150 / 150 50 / 50 Other: Meal Breakfast Percent of Meal Consumed 25% Stool Size Large Stool Consistency liquid Stool Color Brown Weight 101.6 kg Patient Weight 04/12/18 23:59 Weight 101.6 kg - General physical appearance no distress, chronically ill - ENT normal mucosa, normocephalic - Neck Neck exam: trachea midline - Respiratory normal expansion, clear to auscultation - Cardiovascular Cardiovascular exam: Present: RRR - Abdomen Abdomen: Present: soft, tender (minimal discomfort generalized). Absent: distended, guarding, rebound - Integumentary no rash, no growths - Neurologic normal sensation - Musculoskeletal normal posture - Psychiatric oriented to time, oriented to person, oriented to place, speech is normal, memory intact - Labs 04/11/18 07:15 04/11/18 07:15 Vital Signs Temp Pulse Resp BP Pulse Ox 04/12/18 14:42 98.0 F 79 18 106/66 98 04/12/18 10:44 97.8 F 78 16 115/68 100 04/12/18 09:13 98 04/12/18 07:32 97.9 F 81 18 110/73 98 04/12/18 07:29 18 100 04/12/18 04:18 96.8 F L 80 14 113/73 99 04/11/18 19:56 97.7 F 88 14 123/69 98 04/11/18 19:50 99 04/11/18 19:31 14 99 Intake and Output 04/12/18 04/12/18 04/12/18 07:59 15:59 23:59 Intake Total 120 / 120 Output Total 300 / 300 550 / 550 100 / 100 Balance -300 / -300 -430 / -430 -100 / -100 Intake: Oral 120 / 120 Output: Urine 100 / 100 Catheter 200 / 200 300 / 300 50 / 50 Urethral (Parks) 50 / 50 50 / 50 Wound Drainage 100 / 100 150 / 150 50 / 50 Left paracentesis drain 100 / 100 150 / 150 50 / 50 Other: Meal Breakfast Percent of Meal Consumed 25% Stool Size Large Stool Consistency liquid Stool Color Brown Weight 101.6 kg Patient Weight 04/12/18 23:59 Weight 101.6 kg - VTE Documentation of Mechanical Device: Intermittent pneumatic compression device Consult Discharge Plan - Plan Referrals: Lokesh Cooper MD [Primary Care Provider] -
[2018-04-12] MEDS ORDERED: Meropenem 1,000 MG in Water for inj. (sterile) 20 ML 10 ML IVP SCH (19:00)
--- NOTE | 2018-04-13 06:32 | Internal Med Progress Note ---
Date of Encounter: 04/12/18 Time of Encounter: 19:00 - Assessment and plan (1) Abdominal pain Current Visit: Yes Status: Acute Qualifiers: Abdominal location: unspecified location Qualified Code(s): R10.9 - Unspecified abdominal pain (2) Atrial fibrillation Current Visit: No Status: Acute Qualifiers: Atrial fibrillation type: persistent Qualified Code(s): I48.1 - Persistent atrial fibrillation (3) GERD (gastroesophageal reflux disease) Current Visit: No Status: Chronic Qualifiers: Esophagitis presence: esophagitis presence not specified Qualified Code(s) : K21.9 - Gastro-esophageal reflux disease without esophagitis (4) Hypertensive renal disease with renal failure Current Visit: Yes Status: Chronic (5) Anemia Current Visit: Yes Status: Chronic Qualifiers: Anemia type: other cause Other causes of anemia: chronic disease, other Qualified Code(s): D63.8 - Anemia in other chronic diseases classified elsewhere - Time Spent With Patient Total time spent is greater than 50% in coordination of care (as documented) at patient's floor/unit and/or counseling patient: 25 - 35 minutes - Subjective Interval history: .. Her nausea seems to be under control. She denies abdominal pain. KARAN catheter is draining fair amounts of hemorrhagic/purulent fluid. It was 425 cc yesterday The patient is bedbound. She is legally blind. She needs assistance with feeding. OBJECTIVE: .. Skin: Free of rash and discoloration. ENMT: Oral/pharyngeal mucosa is normal in appearance. Eyes: Sclera is white. There is no discharge from eyes. Respiratory: Normal breath sounds; no crackles or wheezes. CV: Heart is regular; no gallop or murmur. GI: Abdomen is soft and not tender. There is no palpable mass or visceromegaly. There is a KAARN drain located on the left side. ASSESSMENT AND PLAN: .. Abdominal pain. Fluid collection in pelvis. It seems to be infected. See microbiology report. She is afebrile. Her last WBC is 14.5 thousand. KARAN drain was inserted by interventional radiology at admission to drain "hematoma" resulting from earlier appendectomy. I talked to the general surgery. They are going to reevaluate the patient. Atrial fibrillation. Rate controlled. We will continue amiodarone and Lopressor. She is not a candidate for anticoagulation. COPD. Stable. We will continue Symbicort and when necessary DuoNeb inhalations. GERD. Under control. Will continue omeprazole. Hypertensive renal disease with first CKD stage III. Will continue metoprolol tartrate. See notes from nephrology. - Constitutional Vitals: Temp Pulse Resp BP Pulse Ox 97.5 F L 76 16 84/53 100 04/13/18 04:30 04/13/18 04:30 04/13/18 04:30 04/13/18 04:30 04/13/18 04:30 General appearance: Present: A&O X 3, obese Internal Medicine: Result - Labs CBC & Chem 7: 04/11/18 07:15 04/11/18 07:15 - ABG Interpretation ABG results: PT/INR, D-dimer PT 15.8 Seconds (9.4-12.1) H 03/30/18 06:58 - Impressions Impressions Abdomen/Pelvis CT 04/12/18 10:00 IMPRESSION: Again identified is a large complex appearing fluid collection which may represent an abscess, with an indwelling locking loop drainage catheter. This measures approximately 17 x 11 x 8 cm in size, and appears somewhat decreased in size when compared to the previous examination however a large amount of fluid remains. Anasarca with mesenteric edema. Chronic appearing calcified pleural plaques with loculated chronic appearing small left pleural effusion. This can be seen in the setting of asbestos exposure. Small right pleural effusion also noted. The increasing right-sided hydronephrosis has improved on today's examination. Gaseous distention of the colon, particularly the transverse colon, related to ileus. No obstruction point is identified. D/ / Slim Vega MD / Slim Vega MD Interpreting Provider: Slim Vega MD - VTE Documentation of Mechanical Device: Intermittent pneumatic compression device Consult Discharge Plan - Plan Referrals: Lokesh Cooper MD [Primary Care Provider] -
[2018-04-13] MEDS: *HR* Heparin 5,000 UNIT/ML VIAL SQ SCH ×3 (06:58→21:41)
[2018-04-13] MEDS: Fluticasone Propionate Nasal 50 MCG/SPRAY BOTTLE NS SCH (07:37)
[2018-04-13] MEDS: *HR* Amiodarone 200 MG TABLET PO SCH (07:37)
[2018-04-13] MEDS: Aspirin Enteric Coated 81 MG Tablet PO SCH (07:37)
[2018-04-13] MEDS: Budesonide/Formoterol 160/4.5 MDI IH SCH ×2 (07:48→20:57)
[2018-04-13 11:20] LABS: Basophils % 0.1 %; Eosinophils # 0.1 K/mcL (0.0-0.6); Eosinophils % 0.8 %; Hematocrit 32.8 % (35.3-44.9); Hemoglobin 10.1 g/dL (11.5-15.4); Immature Granulocytes % 2.5 % (0-4); Lymphocytes # 0.7 K/mcL (0.6-4.6); Lymphocytes % 4.8 %; Mean Corpuscular HGB Conc 30.8 g/dL (31.6-35.5); Mean Corpuscular Hemoglobin 28.5 pg (28.0-33.3); Mean Corpuscular Volume 92.7 fL (83.0-100.0); Mean Platelet Volume 9.9 fL (9.4-12.4); Monocytes # 0.7 K/mcL (0.0-1.3); Monocytes % 4.6 %; Neutrophils # 12.3 K/mcL (1.6-8.9); Platelet Count 198 K/mcL (140-400); Red Blood Count 3.54 M/mcL (3.82-4.97); Segmented Neutrophils % 87.2 %
[2018-04-13 11:35] LABS: Albumin 2.7 g/dL (3.5-5.7); Bilirubin,Total 0.3 mg/dL (0.3-1.0); Calcium 8.7 mg/dL (8.6-10.3); Globulin 2.6 g/dL (2.4-3.5); Potassium 3.9 mEq/L (3.5-5.1); Total Protein 5.3 g/dL (6.4-8.9)
--- NOTE | 2018-04-13 12:52 | Event Note ---
Date of Encounter: 04/13/18 Time of Encounter: 10:00 Bedside RN concerned b/c patient with significant anasarca and no iv access. Reviewed nephrology notes for albumin followed by lasix. Advised RN to place peripheal line. Will order one time albumin followed by lasix. Further management per primary team or nephrology. Surgical drains are not ready to be removed. See progress note.
[2018-04-13] MEDS ORDERED: Furosemide 40 MG/4 ML VIAL IVP ONE (13:15)
[2018-04-13] MEDS: Albumin 25% 25gram/100mL 25 GM/100 ML IV.SOLN IVC SCH ×2 (13:33→15:38)
--- NOTE | 2018-04-13 13:35 | Infectious Disease Consult ---
Date of Encounter: 04/13/18 Time of Encounter: 13:33 Assessment and Plan (1) Infected hematoma following procedure Status: Acute Assessment and plan: - Secondary to gram-negative sammy as demonstrated by culture on 04/10 -Interventional radiology has placed a drain; per the instructions of general surgery, drainage remain in place - White count is improving; 14.2 today - Will discontine meropenem; instead will place patient on cefepime 2g IV daily and flagyl 500 IV Q8 (2) Leukocytosis Status: Acute Assessment and plan: -Secondary to infectious versus non-infectious process; likely secondary to intra-abdominal infection - Continue IV antibiotics as above Qualifiers: Leukocytosis type: unspecified Qualified Code(s): D72.829 - Elevated white blood cell count, unspecified (3) Chronic kidney disease, stage IV (severe) Status: Acute Assessment and plan: - has known stage IV chronic kidney disease - Nephrology is currently on board - Creatinine is improving Infectious Disease HPI - Data of Consult Requesting Physician: Bruce Trejo Primary Care Provider: Lokesh Cooper MD - Consult Narrative Reason for consult: infcted hematoma History of present illness: Patient is a 72-year-old female who presented to the emergency department on 03/29 for abdominal pain. We are consulted by general surgery for an infected hematoma. Patient presented with a recent history of appendectomy 2 weeks prior to admission. Patient had a postop competition in the form of postop bleeding. Patient received 3 units of blood and became hypotensive. She was in the ICU at that time. Patient continued to experience worsening abdominal pain, and presented to the emergency department with worsening pain located in the right lower quadrant radiating posteriorly into her back and right flank. There is also some radiation to the left lower quadrant. Admitted to having some chills. Denied having any nausea, vomiting, diarrhea. Patient is normally a resident at the senior care facility. Upon arrival, patients vital signs were as follows: Temperature is 97.6, pulse was 90, respiratory rate was 18, blood pressure was 110/72, and O2 sat was 100. Initial labs demonstrated the following: Patient had an elevated white count of 12.7 with left shift, elevated creatinine at 2.71, BNP was elevated at 379, and urinalysis demonstrated likely UTI. Abdomen and pelvis CT demonstrated moderate amount of fluid in the pelvis along the mesentery with subacute blood. Circumferential subcutaneous edema. Atrophic left kidney. Calcified pleural plaques suggestive of prior asbestos exposure. Stable loculated 5.2 x 0.9 cm fluid collection along the left anterior hemithorax. Chest x-ray does read as stable chest demonstrating cardiac regular without evidence of failure. Chronic left pleural thickening versus loculated pleural effusion. Bilateral lung parenchymal scarring. Patient was initially placed on Rocephin for her UTI, and surgery was consulted. She was found to have a hematoma in the abdomen. Nephrology was consulted for the management of patients chronic kidney disease. CT demonstrated very large pelvic fluid collection which was described as a hematoma. Urology was consulted, as it was suspected that this hematoma was causing hydronephrosis. Eventual radiology was consulted to drain the fluid. IR placed a drain into the hematoma. Per surgery note, hematoma is infected. Meropenem was started. Drain must be left in place at this time; do not remove. Peritoneal fluid from 04/10 grew gram-negative rods; final report is still pending. Patient had a jump in white count on 04/10 from 11.1-16.4. White count has been decreasing since then, it is 14.2 today. Retinae and has been improving; 1.71 today. Patient is currently day 2 of meropenem. Patient seen and examined at bedside; patient reports that she is feeling somewhat better than she did on admission. Drain is visible at bedside; blood and pus is visible from the drain. She denies fever, chills, nausea, vomiting. No complaints at this time. CC: Bruce Trejo Past Med Surg Social Fam HX - Past Medical History Medical history: arthritis, asthma, atrial fibrillation, CHF, COPD, GERD, hyperlipidemia, hypertension, osteoporosis, renal disease, venous stasis, valvular heart disease, other Additional medical history: blind Psychiatric history: anxiety, depression - Past Surgical History Surgical History: cataract, cholecystectomy, heart valve replacement, herniorrhaphy, hysterectomy, knee replacement, orthopedic, other, sinus surgery , other Additional surgical history: lung surgery - right pleurodesis secondary to pleural effusions after cardiac surgery. "Ross" heart procedure- 1994 [facility] - Social History Smoking Status: Never smoker Smokeless Tobacco Status: No Alcohol use: none Drug use: none - Family History Father History Unknown: Yes Adopted: No Family Member Ethnicity: Non- Living Status: Hx Family Cardiac Disorders: Yes (HD, Pig valve, HD) Hx Family Cancer: Yes (Cancer on lip) Hx Family GI Disorders: Yes (CKD) Hx Family Endocrine Disorder: Yes (Gallstones) Sister Family Member Ethnicity: Non- Living Status: Hx Family Endocrine Disorder: Yes (DM) Mother History Unknown: Yes Adopted: No Family Member Ethnicity: Non- Living Status: Hx Family Cardiac Disorders: Yes (HD, Anemia) Infectious Disease-CN:Meds Cyclosporine [Restasis] 1 drop BOTH EYES BID 04/30/15 [History] Potassium Chloride 20 meq PO DAILY 06/19/16 [History] Calcitriol [Rocaltrol] 0.25 mcg PO DAILY 03/20/17 [History] Loratadine [Claritin] 10 mg PO DAILY 07/20/17 [History] Albuterol Sulfate [Albuterol Inhaler] 2 puff IH Q4HR PRN 08/27/17 [History] Atorvastatin Calcium [Lipitor] 20 mg PO HS 10/06/17 [History] Esomeprazole Magnesium [Nexium] 40 mg PO DAILY 10/06/17 [History] Aspirin Enteric Coated [Aspirin EC] 81 mg PO DAILY tablet. 11/02/17 [Rx] Amiodarone [Cordarone] 200 mg PO DAILY 11/28/17 [History] Docusate [Colace] 100 mg PO BID PRN capsule 12/02/17 [Rx] Fluticasone Propionate Nasal [Flonase] 50 mcg NS DAILY bottle 12/02/17 [Rx] Metoprolol [Lopressor] 50 mg PO BID tablet 12/02/17 [Rx] Acetaminophen [Tylenol] 650 mg PO Q4HR PRN 02/11/18 [History] GuaiFENesin Liq [Robitussin Liq] 200 mg PO Q4HR PRN 02/11/18 [History] Furosemide [Lasix] 40 mg PO DAILY 03/09/18 [History] Quetiapine Fumarate [Seroquel] 50 mg PO HS 03/09/18 [History] Fluticasone/Vilanterol [Breo Ellipta 100-25 Mcg INH] 1 puff IH DAILY 03/29/18 [ History] Isosorbide MONOnitrate (24 HR) [Imdur] 60 mg PO DAILY 03/29/18 [History] Loperamide [Imodium] 2 mg PO Q6H PRN 03/29/18 [History] Ondansetron [Zofran] 8 mg PO Q6H PRN 03/29/18 [History] Oxycodone HCl [Oxaydo] 5 mg PO QID PRN 03/29/18 [History] 3 Allergy/AdvReac Type Severity Reaction Status Date / Time ciprofloxacin [From Cipro] Allergy Hives Verified 03/29/18 21:41 meperidine [From Demerol] AdvReac Vomiting Verified 03/29/18 21:41 Review of systems: 10 point review of systems done, negative other for what mentioned in history of present illness. - Constitutional Constitutional: Absent: chills, fatigue, fever(s), lethargy - Respiratory Respiratory: Absent: cough, dyspnea Exam - Constitutional Vitals: Temp Pulse Resp BP Pulse Ox 97.5 F L 86 18 118/73 100 04/13/18 11:02 04/13/18 11:02 04/13/18 11:02 04/13/18 11:02 04/13/18 11:02 - Head Head exam: Present: atraumatic, normal inspection - Eye Eye exam: Present: EOMI, PERRL, sclera anicteric - ENT ENT exam: Present: mucous membranes dry Additional comments: No oral lesions - Respiratory Respiratory exam: Present: CTAB. Absent: rhonchi, wheezes, tachypnea - Cardiovascular Cardiovascular exam: Present: RRR, +S1, +S2. Absent: bradycardia, tachycardia - GI/Abdominal GI/Abdominal exam: Present: normal bowel sounds, soft, tenderness Additional comments: Drain visible from the left side of the abdomen. Purulent and sanguinous drainage is visible. - Extremities Exam Extremities exam: Present: full ROM. Absent: pedal edema - Neurological Exam Neurological exam: Present: alert, oriented X3 - Psychiatric Psychiatric exam: Present: normal affect, normal mood - Skin Skin exam: Present: dry, intact Infectious Disease CN: Results - Labs CBC & Chem 7: 04/13/18 10:29 04/13/18 10:29 Cultures: Cultures 04/10/18 20:55 Body Fluid Culture - Preliminary Peritoneal Fluid Gram Negative Sammy Serology: Serology 04/05/18 Range/Units 13:15 Urine Color Yellow (Yellow) Urine Clarity Clear (Clear) Urine pH 5.5 (5.0-8.0) pH Units Ur Specific [place] 1.020 (1.010-1.025) Urine Protein 100 H (Neg-Trace) mg/dL Urine Glucose (UA) Normal (Normal) mg/dL Urine Ketones Negative (Negative) mg/dL Urine Blood Moderate H (Negative) Urine Nitrite Negative (Negative) Urine Bilirubin Small H (Negative) Urine Urobilinogen Normal (Normal) mg/dL Ur Leukocyte Esterase Small H (Negative) Urine Microscopic RBC 5-15 H (0-3) per hpf Urine Microscopic WBC 50-100 H (0-3) per hpf Ur Squamous Epith Cells Many H (None-Few) per lpf Urine Bacteria None Seen (None-Few) per hpf Urine Yeast Moderate H (None Seen) per hpf Ur Culture Indicated? NO. A (NO) - VTE Documentation of Mechanical Device: Intermittent pneumatic compression device Consult Discharge Plan - Plan Referrals: Lokesh Cooper MD [Primary Care Provider] - - Attending Attestation I examined this patient and my medical decision-making was reviewed with the Resident Physician. I agree with the documented findings, disposition and treatment plan as described except to the extent set forth below. This is an addendum to original report dictated by resident physician. Please refer to resident's note for full detail. Patient is 72-year-old woman who got admitted to [place] around March 10 and underwent an appendectomy. Post surgery patient had abdominal bleeding and was transferred to the ICU for hemodynamic stability. Patient was discharged home and then came back with abdominal pain and nausea. On admission patient was tachycardic and had leukocytosis. Patient also had acute kidney injury. A CT abdomen of this revealed moderate amount of fluid in the pelvis. Patient was taken to the interventional radiology where she had a drain placed. Fluid culture were positive for gram-negative rods. Patient was started on empiric meropenem we were asked to evaluate the patient and make further recommendations. Assessment and plan: Infected hematoma following procedure: Causative organism is gram-negative sammy. Status post drain placement. Repeat CT significantly improved than the initial CT on admission. I was able to review both of them. Patient is on meropenem which I think is a great antibiotic and is adequate for treatment but I think we can go with something simpler likely cefepime plus Flagyl. Patient' s creatinine clearance was measured by me at around 2024 so we will do cefepime 22 g IV every 24 hours sensitive every 12 hours. Patient has sepsis on admission Acute on chronic kidney disease; kidney seems to be improving. Duration of treatment likely 4 weeks depending on the clinical picture. Based on the culture results we will make further recommendations if we can do oral antibiotics or if we can continue IV antibiotics. Monitor labs and for drug toxicity
[2018-04-13] MEDS ORDERED: Meropenem 1,000 MG in Water for inj. (sterile) 20 ML 10 ML IVP SCH (14:00)
--- NOTE | 2018-04-13 16:19 | General Surgery Progress Note ---
Date of Encounter: 04/13/18 Time of Encounter: 16:17 - Assessment and Plan (1) Intra-abdominal hematoma Current Visit: Yes Status: Acute patient s/p IR drain placement into hematoma - is infected, started meropenum yesterday ID consult - awaiting input need to leave drain in place at this time, no dot remove continue diet Qualifiers: Encounter type: initial encounter Qualified Code(s): S36.92XA - Contusion of unspecified intra-abdominal organ, initial encounter (2) Leukocytosis Current Visit: Yes Status: Acute continue antibiotics trend, improved Qualifiers: Leukocytosis type: unspecified Qualified Code(s): D72.829 - Elevated white blood cell count, unspecified Subjective Patient reports: no new complaints, feels better, still having pain, tolerating a regular diet, flatus, afebrile Objective Vital Signs - Last 8 Hours Temp Pulse Resp BP Pulse Ox 04/13/18 15:01 97.9 F 85 16 93/60 100 04/13/18 11:02 97.5 F L 86 18 118/73 100 04/13/18 09:00 115/66 Intake and Output 04/13/18 04/13/18 04/13/18 07:59 15:59 23:59 Intake Total 0 / 0 340 / 340 Output Total 400 / 400 175 / 175 Balance -400 / -400 165 / 165 Intake: IV Fluids 100 / 100 Flexbumin 25 gm In 100 ml @ 60 100 / 100 mls/hr IVC .Q1H40M [facility] Rx#: [id number] Oral 0 / 0 240 / 240 Output: Urine 0 / 0 Catheter 250 / 250 175 / 175 Wound Drainage 150 / 150 0 / 0 Left paracentesis drain 150 / 150 0 / 0 Other: Meal Lunch Percent of Meal Consumed 15% Stool Size Moderate Stool Consistency liquid Stool Color Brown Weight 103.6 kg Patient Weight 04/13/18 23:59 Weight 103.6 kg - General physical appearance well developed, well nourished, no distress, obese - Eyes normal ocular movement - ENT normal mucosa, normocephalic - Neck Neck exam: trachea midline - Respiratory normal expansion, clear to auscultation - Cardiovascular Cardiovascular exam: Present: RRR - Abdomen Abdomen: Present: bowel sounds present, soft, tender (minimal discomfort with palpation). Absent: guarding, rebound - Integumentary no rash, no growths - Neurologic CN 2-12 grossly intact - Musculoskeletal normal posture - Psychiatric oriented to time, oriented to person, oriented to place, speech is normal, memory intact - Labs 04/13/18 10:29 04/13/18 10:29 Diabetes panel 04/13/18 Range/Units 10:29 Sodium 136 (136-145) mEq/L Potassium 3.9 (3.5-5.1) mEq/L Chloride 102 (98-107) mEq/L Carbon Dioxide 28 (23-29) mEq/L BUN 44 H (8-23) mg/dL Creatinine 1.71 H (0.60-1.20) mg/dL Glucose 105 (70-105) mg/dL Calcium 8.7 (8.6-10.3) mg/dL AST 26 (13-39) Units/L ALT 15 (7-52) Units/L Alkaline Phosphatase 93 (34-104) Units/L Albumin 2.7 L (3.5-5.7) g/dL Calcium panel 04/13/18 Range/Units 10:29 Calcium 8.7 (8.6-10.3) mg/dL Albumin 2.7 L (3.5-5.7) g/dL Pituitary panel 04/13/18 Range/Units 10:29 Sodium 136 (136-145) mEq/L Potassium 3.9 (3.5-5.1) mEq/L Chloride 102 (98-107) mEq/L Carbon Dioxide 28 (23-29) mEq/L BUN 44 H (8-23) mg/dL Creatinine 1.71 H (0.60-1.20) mg/dL Glucose 105 (70-105) mg/dL Calcium 8.7 (8.6-10.3) mg/dL Adrenal panel 04/13/18 Range/Units 10:29 Sodium 136 (136-145) mEq/L Potassium 3.9 (3.5-5.1) mEq/L Chloride 102 (98-107) mEq/L Carbon Dioxide 28 (23-29) mEq/L BUN 44 H (8-23) mg/dL Creatinine 1.71 H (0.60-1.20) mg/dL Glucose 105 (70-105) mg/dL Calcium 8.7 (8.6-10.3) mg/dL Total Bilirubin 0.3 (0.3-1.0) mg/dL AST 26 (13-39) Units/L ALT 15 (7-52) Units/L Alkaline Phosphatase 93 (34-104) Units/L Albumin 2.7 L (3.5-5.7) g/dL - VTE Documentation of Mechanical Device: Intermittent pneumatic compression device Consult Discharge Plan - Plan Referrals: Lokesh Cooper MD [Primary Care Provider] -
[2018-04-13] MEDS: MetroNIDAZOLE 500 MG/100 ML 500 MG/100 ML BAG IVPB SCH (17:22)
[2018-04-13] MEDS: Cefepime HCl 2,000 MG in 0.9 % Sodium Chloride Mini Bag 100 ML IVPB SCH (17:22)
--- NOTE | 2018-04-13 17:22 | Internal Med Progress Note ---
Date of Encounter: 04/13/18 Time of Encounter: 17:15 - Assessment and plan (1) Abdominal pain Current Visit: Yes Status: Acute Assessment and plan: 04/12/18 -Multifactorial: UTI, resolving post-op hematoma, increasing R hydronephrosis ?extrinsic compression from pelvic fluid no BM charted since 03/29, may also be attributed to constipation -> had BM yesterday, continue current bowel regimen no evidence of pyelonephritis, D6 abx -> completed see above for mx of ?obstructive uropathy 04/13/18 -also with infected hematoma which could be contributing to symptoms; pain not worsening; infectious disease consultation today. Meropenem was initially started by general surgery however this was changed to cefepime and IV Flagyl. Cultures from the abdominal catheter are growing gram-negative rods sensitivities are currently pending; ID and general surgery following, appreciate recs. Qualifiers: Abdominal location: unspecified location Qualified Code(s): R10.9 - Unspecified abdominal pain (2) Hypotension Current Visit: Yes Status: Acute Assessment and plan: Likely due to IV Lasix. The patient's become hypotensive with IV Lasix earlier in the admission. IV albumin being given today for a total of 50g; this may need to be repeated. Although the patient has an infected hematoma the patient is afebrile and white count is improving; i believe this hypotension is unlikely this is due to infection. We will monitor closely. Qualifiers: Hypotension type: unspecified hypotension type Qualified Code(s): I95.9 - Hypotension, unspecified (3) Anasarca Current Visit: Yes Status: Acute Assessment and plan: 04/12/18 - patient appears to have total body volume overload but intravascularly depleted -> was given IV lasix 40mg x 2 followed by additional 20mg x 2 with 2 doses of IV albumin on 04/02, Cr trending up and drop in BP hold off all diuretics and imdur, BP has improved since then nutritional supplement for hypoalbuminemia 04/13/18 - patient was given 50 g of 25% albumin today as well as IV Lasix. The patient does appear volume overloaded however the patient's blood pressure does drop moderately with IV Lasix. Due to her relative hypotension with IV Lasix earlier this admission and today we will likely hold off on scheduled diuresis (4) Acute thrombosis of cephalic vein Current Visit: Yes Status: Acute Assessment and plan: Left upper extremity swelling was noted and ultrasound was performed which revealed acute superficial venous thrombosis of the left cephalic vein. Due to the patient's current intra-abdominal hematoma and superficial nature anticoagulation will not be started. We will monitor. Qualifiers: Laterality: left Qualified Code(s): I82.612 - Acute embolism and thrombosis of superficial veins of left upper extremity (5) Atrial fibrillation Current Visit: Yes Status: Chronic Assessment and plan: 04/12/18 - on bb, amiodarone at home. Not on AC HR ~ 100, BP stable. Restart bb if BP tolerates 04/13/18 - HR controlled in 80-90s, cannot tolerate anticoagulation currently (6) Anemia Current Visit: Yes Status: Chronic Assessment and plan: 04/12/18 likely due to AoCD monitor 04/13/18 - hgb stable Qualifiers: Anemia type: other cause Other causes of anemia: chronic disease, other Qualified Code(s): D63.8 - Anemia in other chronic diseases classified elsewhere (7) Chronic kidney disease, stage IV (severe) Current Visit: Yes Status: Chronic Assessment and plan: 04/12/18 - Cr slightly trended down today with adequote UOP unable to exclude obstructive uropathy from pelvic fluid as a cause in view of the CT finding of increasing R hydronephrosis L kidney is atrophic Continue to monitor without any diuretic spoke to IR regarding percutaneous drainage of the complex pelvic fluid collection, will be done tomorrow Urology also on consult -> follow Cr, no urgent need for stent insertion 04/13/18 - creatinine continues to improve, fluid balance -1.9L; will monitor (8) UTI (urinary tract infection) Current Visit: Yes Status: Resolved Assessment and plan: s/p completed Rocephin regimen (9) DVT prophylaxis Current Visit: Yes Status: Acute Assessment and plan: SQ heparin - Time Spent With Patient Total time spent is greater than 50% in coordination of care (as documented) at patient's floor/unit and/or counseling patient: Greater than 35 minutes - Subjective Interval history: Patient was seen and examined at bedside. Previously she is doing "okay". Patient states that she has intermittent abdominal pain. Patient denies any fevers or chills overnight. The patient denies any chest pain, shortness of breath, nausea vomiting or diarrhea. Patient states she feels swollen. Patient was given IV Lasix and IV albumin has been ordered. Patient was started on IV meropenem per general surgery with infectious disease consult. Patient had PICC line placed today. - Constitutional Vitals: Temp Pulse Resp BP Pulse Ox 97.9 F 85 16 93/60 100 04/13/18 15:01 04/13/18 15:01 04/13/18 15:01 04/13/18 15:01 04/13/18 15:01 General appearance: Present: A&O X 3, obese Exam: Constitutional: No acute distress, Alert, cooperative but keeps eyes closed Psych: AAO x 3 HEENT: NCAT, EOMI Neck: supple Cardio: regular rate, +s1s2, 2/6 systolic murmur, no jvd difficult to appreciate Resp: Decreased breath sounds in the bases Abd: soft, mildly ttp/non distended, drain in place draining prululent material Extremities: no clubbing/cyanosis/ 2+ pitting edema appreciated in bl le; LUE mildy more edematous than right Neuro: no focal deficits appreciated Internal Medicine: Result - Labs CBC & Chem 7: 04/13/18 10:29 04/13/18 10:29 Labs: Short CBC 04/13/18 Range/Units 10:29 WBC 14.2 H (4.3-11.1) K/mcL Hgb 10.1 L (11.5-15.4) g/dL Hct 32.8 L (35.3-44.9) % Plt Count 198 (140-400) K/mcL Neutrophils # 12.3 H (1.6-8.9) K/mcL BMP 04/13/18 10:29 Sodium 136 Potassium 3.9 Chloride 102 Carbon Dioxide 28 BUN 44 H Creatinine 1.71 H Glucose 105 Calcium 8.7 Liver Function 04/13/18 Range/Units 10:29 Total Bilirubin 0.3 (0.3-1.0) mg/dL AST 26 (13-39) Units/L ALT 15 (7-52) Units/L Alkaline Phosphatase 93 (34-104) Units/L Albumin 2.7 L (3.5-5.7) g/dL - ABG Interpretation ABG results: PT/INR, D-dimer PT 15.8 Seconds (9.4-12.1) H 03/30/18 06:58 - VTE Documentation of Mechanical Device: Intermittent pneumatic compression device Consult Discharge Plan - Plan Referrals: Lokesh Cooper MD [Primary Care Provider] -
[2018-04-14] MEDS: MetroNIDAZOLE 500 MG/100 ML 500 MG/100 ML BAG IVPB SCH ×4 (03:31→23:38)
[2018-04-14] MEDS: *HR* Heparin 5,000 UNIT/ML VIAL SQ SCH ×3 (06:08→21:44)
[2018-04-14] MEDS: Budesonide/Formoterol 160/4.5 MDI IH SCH ×2 (07:52→20:05)
--- NOTE | 2018-04-14 08:55 | General Surgery Progress Note ---
<Corwin Yañez W - Last Filed: 04/14/18 09:11> Date of Encounter: 04/14/18 Time of Encounter: 08:52 - Assessment and Plan (1) Abdominal pain Current Visit: Yes Status: Acute patient s/p IR drain placement into hematoma - infected ID recommended switching meropenum to cefepime 2g IV daily and flagyl 500 IV Q8 appreciate rec continue drain, do not remove continue diet as tolerated will continue to follow For additional information please refer to Dr. Jimenez's attestation below Qualifiers: Abdominal location: unspecified location Qualified Code(s): R10.9 - Unspecified abdominal pain (2) Leukocytosis Current Visit: Yes Status: Acute continue antibiotics per ID and primary Qualifiers: Qualified Code(s): D72.829 - Elevated white blood cell count, unspecified Subjective Patient reports: no new complaints, feels better, still having pain, pain is less, tolerating a regular diet, voiding w/o difficulty, bowel movement, afebrile Narrative: Patient was laying in bed sleeping when we entered the room. Patient states she is feeling better today. Only has minimal discomfort in her abdomen. Denies fevers, chills, or night sweats. Denies SOB and chest pain. Has been having BM' s and passing gas. Objective Vital Signs - Last 8 Hours Temp Pulse Resp BP Pulse Ox 04/14/18 07:00 98.2 F 75 15 109/69 95 04/14/18 04:10 98.0 F 83 16 96/60 100 Intake and Output 04/13/18 04/14/18 04/14/18 23:59 07:59 15:59 Intake Total 320 / 320 150 / 150 Output Total 500 / 500 150 / 150 Balance -180 / -180 0 / 0 Intake: IV Fluids 200 / 200 100 / 100 Flexbumin 25 gm In 100 ml @ 60 100 / 100 mls/hr IVC .[id number] [facility] Rx#: [id number] Flagyl Premix 500 MG/100 ML 500 100 / 100 100 / 100 mg In 100 ml @ 100 mls/hr IVPB Q8HR [facility] Rx#:[id number] Oral 120 / 120 50 / 50 Output: Catheter 450 / 450 150 / 150 Wound Drainage 50 / 50 0 / 0 Left paracentesis drain 50 / 50 0 / 0 Other: Meal Dinner Percent of Meal Consumed 20% Stool Size Small Stool Consistency loose liquid Stool Color Manjinder Colored # Bowel Movements 1 Weight 104.5 kg Patient Weight 04/14/18 23:59 Weight 104.5 kg - General physical appearance well developed, well nourished, no distress - Eyes PERRL, normal ocular movement - ENT atraumatic, normocephalic, CN 2-12 grossly intact - Neck Neck exam: no masses - Respiratory normal expansion, normal respiratory effort, clear to auscultation - Cardiovascular Cardiovascular exam: Present: RRR, no murmurs/rubs/gallops - Abdomen Abdomen: Present: bowel sounds present, soft, tender (mild TTP) Abdominal Tenderness: diffusely - Incision Incision: Present: serosanguinous (drainage improving slightly from yesterday) - Labs 04/13/18 10:29 04/13/18 10:29 Diabetes panel 04/13/18 Range/Units 10:29 Sodium 136 (136-145) mEq/L Potassium 3.9 (3.5-5.1) mEq/L Chloride 102 (98-107) mEq/L Carbon Dioxide 28 (23-29) mEq/L BUN 44 H (8-23) mg/dL Creatinine 1.71 H (0.60-1.20) mg/dL Glucose 105 (70-105) mg/dL Calcium 8.7 (8.6-10.3) mg/dL AST 26 (13-39) Units/L ALT 15 (7-52) Units/L Alkaline Phosphatase 93 (34-104) Units/L Albumin 2.7 L (3.5-5.7) g/dL Calcium panel 04/13/18 Range/Units 10:29 Calcium 8.7 (8.6-10.3) mg/dL Albumin 2.7 L (3.5-5.7) g/dL Pituitary panel 04/13/18 Range/Units 10:29 Sodium 136 (136-145) mEq/L Potassium 3.9 (3.5-5.1) mEq/L Chloride 102 (98-107) mEq/L Carbon Dioxide 28 (23-29) mEq/L BUN 44 H (8-23) mg/dL Creatinine 1.71 H (0.60-1.20) mg/dL Glucose 105 (70-105) mg/dL Calcium 8.7 (8.6-10.3) mg/dL Adrenal panel 04/13/18 Range/Units 10:29 Sodium 136 (136-145) mEq/L Potassium 3.9 (3.5-5.1) mEq/L Chloride 102 (98-107) mEq/L Carbon Dioxide 28 (23-29) mEq/L BUN 44 H (8-23) mg/dL Creatinine 1.71 H (0.60-1.20) mg/dL Glucose 105 (70-105) mg/dL Calcium 8.7 (8.6-10.3) mg/dL Total Bilirubin 0.3 (0.3-1.0) mg/dL AST 26 (13-39) Units/L ALT 15 (7-52) Units/L Alkaline Phosphatase 93 (34-104) Units/L Albumin 2.7 L (3.5-5.7) g/dL - VTE Documentation of Mechanical Device: Intermittent pneumatic compression device Consult Discharge Plan - Plan Referrals: Lokesh Cooper MD [Primary Care Provider] - <Crystal Jimenez - Last Filed: 04/14/18 17:55> Date of Encounter: 04/14/18 - Assessment and Plan (1) Intra-abdominal hematoma Current Visit: Yes Status: Acute Qualifiers: Encounter type: initial encounter Qualified Code(s): S36.92XA - Contusion of unspecified intra-abdominal organ, initial encounter (2) Leukocytosis Current Visit: Yes Status: Acute Qualifiers: Leukocytosis type: unspecified Qualified Code(s): D72.829 - Elevated white blood cell count, unspecified Objective Vital Signs - Last 8 Hours Temp Pulse Resp BP Pulse Ox 04/14/18 15:00 98.4 F 76 16 130/71 100 04/14/18 11:14 98.5 F 85 17 106/59 99 Intake and Output 04/14/18 04/14/18 04/14/18 07:59 15:59 23:59 Intake Total 150 / 150 480 / 480 Output Total 150 / 150 300 / 300 Balance 0 / 0 180 / 180 Intake: IV Fluids 100 / 100 100 / 100 Flagyl Premix 500 MG/100 ML 500 100 / 100 100 / 100 mg In 100 ml @ 100 mls/hr IVPB Q8HR [facility] Rx#:[id number] Oral 50 / 50 380 / 380 Output: Catheter 150 / 150 300 / 300 Wound Drainage 0 / 0 0 / 0 Left paracentesis drain 0 / 0 0 / 0 Other: Meal Lunch few bites of noodles and ice cream Percent of Meal Consumed 0% Stool Size Large Stool Consistency loose Stool Characteristics [place] Stool Color Brown # Bowel Movements 1 Weight 104.5 kg Patient Weight 04/14/18 23:59 Weight 104.5 kg - Labs 04/13/18 10:29 04/13/18 10:29 - Attending Attestation I examined this patient and my medical decision-making was reviewed with the Resident Physician. I agree with the documented findings, disposition and treatment plan as described except to the extent set forth below.
--- NOTE | 2018-04-14 10:36 | Infectious Disease Progress No ---
Date of Encounter: 04/14/18 Time of Encounter: 11:30 - Assessment and Plan (1) Infected hematoma following procedure Current Visit: Yes Status: Acute - Secondary to GNRX2 and CPCX2 as demonstrated by culture on 04/10 -Interventional radiology has placed a drain; per the instructions of general surgery, drainage remain in place - White count is improving; 14.2 today - Cefepime 2g IV daily and flagyl 500 IV Q8 - Due to CX growing 2 GPC, will add Vancomycin (2) Leukocytosis Current Visit: Yes Status: Acute -Secondary to infectious versus non-infectious process; likely secondary to intra-abdominal infection - Continue IV antibiotics as above Qualifiers: Leukocytosis type: unspecified Qualified Code(s): D72.829 - Elevated white blood cell count, unspecified (3) Chronic kidney disease, stage IV (severe) Current Visit: No Status: Acute - Has known stage IV chronic kidney disease - Nephrology is currently on board - Creatinine is improving - Subjective Interval history: Patient was seen and exmained at bedside; she is feeling similar today as she was yeaterday. She admits to having some abdominal pain in the LLQ and RLQ, but that it is relatively unchanged. Drain is visible at bedside, purulent drainage noted. There is more pus than yesterday. She denies fever, chills, nausea, or vomiting. No complaints at this time. Infect Dis PN-Objective Data - Labs CBC & Chem 7: 04/15/18 03:15 04/15/18 03:15 Labs: Laboratory Results - last 24 hr 04/13/18 04/13/18 04/13/18 10:29 10:29 10:29 WBC 14.2 H RBC 3.54 L Hgb 10.1 L Hct 32.8 L MCV 92.7 MCH 28.5 MCHC 30.8 L RDW 18.0 H Plt Count 198 MPV 9.9 Immature Gran % 2.5 Seg Neutrophils % 87.2 Lymphocytes % 4.8 Monocytes % 4.6 Eosinophils % 0.8 Basophils % 0.1 Neutrophils # 12.3 H Lymphocytes # 0.7 Monocytes # 0.7 Eosinophils # 0.1 Basophils # 0.0 Sodium 136 Potassium 3.9 Chloride 102 Carbon Dioxide 28 BUN 44 H Creatinine 1.71 H Est GFR ( Amer) 35 L Est GFR (Non-Af Amer) 29 L BUN/Creatinine Ratio 26 Glucose 105 Calculated Osmolality 294 Calcium 8.7 Total Bilirubin 0.3 AST 26 ALT 15 Alkaline Phosphatase 93 Serum Total Protein 5.3 L Albumin 2.7 L Globulin 2.6 Albumin/Globulin Ratio 1.0 L Prealbumin 11.2 L Cultures: Cultures 04/10/18 20:55 Body Fluid Culture - Preliminary Peritoneal Fluid Gram Negative Sammy Serology 04/05/18 Range/Units 13:15 Urine Color Yellow (Yellow) Urine Clarity Clear (Clear) Urine pH 5.5 (5.0-8.0) pH Units Ur Specific Brandt 1.020 (1.010-1.025) Urine Protein 100 H (Neg-Trace) mg/dL Urine Glucose (UA) Normal (Normal) mg/dL Urine Ketones Negative (Negative) mg/dL Urine Blood Moderate H (Negative) Urine Nitrite Negative (Negative) Urine Bilirubin Small H (Negative) Urine Urobilinogen Normal (Normal) mg/dL Ur Leukocyte Esterase Small H (Negative) Urine Microscopic RBC 5-15 H (0-3) per hpf Urine Microscopic WBC 50-100 H (0-3) per hpf Ur Squamous Epith Cells Many H (None-Few) per lpf Urine Bacteria None Seen (None-Few) per hpf Urine Yeast Moderate H (None Seen) per hpf Ur Culture Indicated? NO. A (NO) Exam - Constitutional Vitals: Temp Pulse Resp BP Pulse Ox 98.2 F 75 16 109/69 100 04/14/18 07:00 04/14/18 07:00 04/14/18 07:52 04/14/18 07:00 04/14/18 07:52 - Additional findings Additional findings: - Head Head exam: Present: atraumatic, normal inspection - Eye Eye exam: Present: EOMI, PERRL, sclera anicteric - ENT ENT exam: Present: mucous membranes dry Additional comments: No oral lesions - Respiratory Respiratory exam: Present: CTAB. Absent: rhonchi, wheezes, tachypnea - Cardiovascular Cardiovascular exam: Present: RRR, +S1, +S2. Absent: bradycardia, tachycardia - GI/Abdominal GI/Abdominal exam: Present: normal bowel sounds, soft, tenderness Additional comments: Drain visible from the left side of the abdomen. Purulent drainage is visible. - Extremities Exam Extremities exam: Present: full ROM. Absent: pedal edema - Neurological Exam Neurological exam: Present: alert, oriented X3 - Psychiatric Psychiatric exam: Present: normal affect, normal mood - Skin Skin exam: Present: dry, intact - VTE Documentation of Mechanical Device: Intermittent pneumatic compression device Consult Discharge Plan - Plan Referrals: Lokesh Cooper MD [Primary Care Provider] - - Attending Attestation I examined this patient and my medical decision-making was reviewed with the Resident Physician. I agree with the documented findings, disposition and treatment plan as described except to the extent set forth below. Patient on cefepime and Flagyl. Cultures are also growing gram-positive cocci, not sure this is enterococcus versus MRSA versus staph aureus versus Streptococcus versus anaerobes. I will add vancomycin empirically
[2018-04-14] MEDS: Aspirin Enteric Coated 81 MG Tablet PO SCH (11:44)
[2018-04-14] MEDS: *HR* Amiodarone 200 MG TABLET PO SCH (11:44)
[2018-04-14] MEDS: Loratadine 10 MG TABLET PO SCH (11:44)
[2018-04-14] MEDS ORDERED: 0.9 % Sodium Chloride Mini Bag 100 ML ONE (11:47)
[2018-04-14] MEDS: Fluticasone Propionate Nasal 50 MCG/SPRAY BOTTLE NS SCH (11:48)
[2018-04-14] MEDS: Cefepime HCl 2,000 MG in 0.9 % Sodium Chloride Mini Bag 100 ML IVPB SCH (11:48)
[2018-04-14] MEDS: Acetaminophen 325 MG TABLET PO PRN (11:58)
--- NOTE | 2018-04-14 12:03 | Internal Med Progress Note ---
Date of Encounter: 04/14/18 Time of Encounter: 11:56 - Assessment and plan (1) Abdominal pain Current Visit: Yes Status: Acute Assessment and plan: 04/12/18 -Multifactorial: UTI, resolving post-op hematoma, increasing R hydronephrosis ?extrinsic compression from pelvic fluid no BM charted since 03/29, may also be attributed to constipation -> had BM yesterday, continue current bowel regimen no evidence of pyelonephritis, D6 abx -> completed see above for mx of ?obstructive uropathy 04/13/18 -also with infected hematoma which could be contributing to symptoms; pain not worsening; infectious disease consultation today. Meropenem was initially started by general surgery however this was changed to cefepime and IV Flagyl. Cultures from the abdominal catheter are growing gram-negative rods sensitivities are currently pending; ID and general surgery following, appreciate recs. 04/14/18 -cultures from the abdominal hematoma drain are currently growing 2 different gram-negative rods in 2 different gram-positive cocci -Drain remains in place draining purulent material -Infectious disease following will continue IV Flagyl and cefepime -Patient now with diffuse abdominal pain and copious loose diarrhea. Will check C. difficile toxin; if positive will start oral vancomycin -We will likely need long-term antibiotics will discuss with ID -Infectious disease recommendations appreciated Qualifiers: Abdominal location: unspecified location Qualified Code(s): R10.9 - Unspecified abdominal pain (2) Diarrhea Current Visit: Yes Status: Acute Assessment and plan: Patient with copious loose diarrhea this morning. This could be antibiotic associated diarrhea with abdominal pain and recent antibiotic use and current antibiotic use we will check C. difficile toxin. Positive we will start oral pain medicine. Qualifiers: Qualified Code(s): R19.7 - Diarrhea, unspecified (3) Hypotension Current Visit: Yes Status: Acute Assessment and plan: Patient's blood pressure is slowly improving. Patient will be unlikely to tolerate scheduled diuresis at this time. Patient's renal dysfunction patient may need Midrin in the future. Qualifiers: Hypotension type: unspecified hypotension type Qualified Code(s): I95.9 - Hypotension, unspecified (4) Anasarca Current Visit: Yes Status: Acute Assessment and plan: 04/12/18 - patient appears to have total body volume overload but intravascularly depleted -> was given IV lasix 40mg x 2 followed by additional 20mg x 2 with 2 doses of IV albumin on 04/02, Cr trending up and drop in BP hold off all diuretics and imdur, BP has improved since then nutritional supplement for hypoalbuminemia 04/13/18 - patient was given 50 g of 25% albumin today as well as IV Lasix. The patient does appear volume overloaded however the patient's blood pressure does drop moderately with IV Lasix. Due to her relative hypotension with IV Lasix earlier this admission and today we will likely hold off on scheduled diuresis 04/14/18- patient with a -2 L fluid balance over the last 24 hours; Patient would obviously benefit from scheduled diuresis but however blood pressures unable to tolerate. May need Midrin with diuresis the future. (5) Acute thrombosis of cephalic vein Current Visit: Yes Status: Acute Assessment and plan: Left upper extremity swelling was noted and ultrasound was performed which revealed acute superficial venous thrombosis of the left cephalic vein. Due to the patient's current intra-abdominal hematoma and superficial nature anticoagulation will not be started. We will monitor. -We will apply warm compress to the left upper extremity Qualifiers: Laterality: left Qualified Code(s): I82.612 - Acute embolism and thrombosis of superficial veins of left upper extremity (6) Atrial fibrillation Current Visit: Yes Status: Chronic Assessment and plan: 04/12/18 - on bb, amiodarone at home. Not on AC HR ~ 100, BP stable. Restart bb if BP tolerates 04/13/18 - HR controlled in 80-90s, cannot tolerate anticoagulation currently 04/14/18-ray still controlled Qualifiers: Atrial fibrillation type: chronic Qualified Code(s): I48.2 - Chronic atrial fibrillation (7) Anemia Current Visit: Yes Status: Chronic Assessment and plan: Likely due to anemia of chronic disease. Hemoglobin stable. Qualifiers: Anemia type: other cause Other causes of anemia: chronic disease, other Qualified Code(s): D63.8 - Anemia in other chronic diseases classified elsewhere (8) Chronic kidney disease, stage IV (severe) Current Visit: Yes Status: Chronic Assessment and plan: 04/12/18 - Cr slightly trended down today with adequote UOP unable to exclude obstructive uropathy from pelvic fluid as a cause in view of the CT finding of increasing R hydronephrosis L kidney is atrophic Continue to monitor without any diuretic spoke to IR regarding percutaneous drainage of the complex pelvic fluid collection, will be done tomorrow Urology also on consult -> follow Cr, no urgent need for stent insertion 04/13/18 - creatinine continues to improve, fluid balance -1.9L; will monitor 04/14/18 -2 L fluid balance over the last 24 hours. Creatinine stable at 1.71. (9) UTI (urinary tract infection) Current Visit: Yes Status: Resolved Assessment and plan: s/p completed Rocephin regimen (10) DVT prophylaxis Current Visit: Yes Status: Acute Assessment and plan: SQ heparin - Time Spent With Patient Total time spent is greater than 50% in coordination of care (as documented) at patient's floor/unit and/or counseling patient: - Subjective Interval history: Patient seen and evaluated at bedside. Patient then had several copious loose bowel movements this morning With a foul odor; check C. difficile. Patient states she feels a little better than yesterday. Having some abdominal pain. Patient denies any nausea or vomiting but does admit to diarrhea started this morning. Patient denies any chest pain or shortness of breath. No acute events overnight. - Constitutional Vitals: Temp Pulse Resp BP Pulse Ox 98.5 F 85 17 106/59 99 04/14/18 11:14 04/14/18 11:14 04/14/18 11:14 04/14/18 11:14 04/14/18 11:14 General appearance: Present: A&O X 3, obese Exam: Constitutional: No acute distress, Alert Psych: AAO x 3 HEENT: NCAT, EOMI Neck: supple, no JVD Cardio: regular rate and rhythm, +s1s2, no murmurs/rubs/ronchi, no lower extremity edema, no JVD Resp: Decreased breath sounds in bases. Abd: soft, mildly tender to palpation throughout, no guarding rebound or rigidity, drain in place still draining purulent material. Extremities: Pain in the bilateral lower extremities there is 2-3+ pitting edema bilaterally unchanged, there is some mild ecchymosis on the anterior shins. Neuro: Moves extremities symmetrically, notable chronic weakness in the lower cavities Internal Medicine: Result - Labs CBC & Chem 7: 04/13/18 10:29 04/13/18 10:29 - ABG Interpretation ABG results: PT/INR, D-dimer PT 15.8 Seconds (9.4-12.1) H 03/30/18 06:58 - VTE Documentation of Mechanical Device: Intermittent pneumatic compression device Consult Discharge Plan - Plan Referrals: Lokesh Cooper MD [Primary Care Provider] -
[2018-04-15 03:33] LABS: Basophils % 0.1 %; Eosinophils # 0.1 K/mcL (0.0-0.6); Eosinophils % 1.2 %; Hematocrit 27.6 % (35.3-44.9); Hemoglobin 8.6 g/dL (11.5-15.4); Immature Granulocytes % 2.7 % (0-4); Lymphocytes # 0.6 K/mcL (0.6-4.6); Lymphocytes % 7.1 %; Mean Corpuscular HGB Conc 31.2 g/dL (31.6-35.5); Mean Corpuscular Hemoglobin 28.6 pg (28.0-33.3); Mean Corpuscular Volume 91.7 fL (83.0-100.0); Mean Platelet Volume 9.7 fL (9.4-12.4); Monocytes # 0.4 K/mcL (0.0-1.3); Monocytes % 4.8 %; Neutrophils # 7.1 K/mcL (1.6-8.9); Platelet Count 164 K/mcL (140-400); Red Blood Count 3.01 M/mcL (3.82-4.97); Red Cell Distribution Width 18.5 % (11.5-14.5); Segmented Neutrophils % 84.1 %
[2018-04-15 03:52] LABS: Calcium 8.2 mg/dL (8.6-10.3); Potassium 3.6 mEq/L (3.5-5.1)
[2018-04-15] MEDS: *HR* Heparin 5,000 UNIT/ML VIAL SQ SCH ×3 (05:17→22:58)
[2018-04-15] MEDS: Budesonide/Formoterol 160/4.5 MDI IH SCH ×2 (07:47→20:50)
[2018-04-15] MEDS: Aspirin Enteric Coated 81 MG Tablet PO SCH (10:10)
[2018-04-15] MEDS: *HR* Amiodarone 200 MG TABLET PO SCH (10:10)
[2018-04-15] MEDS: MetroNIDAZOLE 500 MG/100 ML 500 MG/100 ML BAG IVPB SCH ×2 (10:10→16:43)
[2018-04-15] MEDS: Fluticasone Propionate Nasal 50 MCG/SPRAY BOTTLE NS SCH (10:11)
--- NOTE | 2018-04-15 11:46 | Internal Med Progress Note ---
Date of Encounter: 04/15/18 Time of Encounter: 11:51 - Assessment and plan (1) Abdominal pain Current Visit: Yes Status: Acute Assessment and plan: Multifactorial: UTI s/p tx Should with infected abdominal hematoma -cultures from the abdominal hematoma drain are currently growing Escherichia coli/staph epidermidis/enteroccocus -Drain remains in place draining purulent material -Infectious disease following will continue IV Flagyl and cefepime; IV vancomycin added secondary to cultures -Diarrhea improved and C. difficile is negative -We will likely need long-term antibiotics will discuss with ID; however continue to await sensitivities -Infectious disease recommendations appreciated Qualifiers: Abdominal location: unspecified location Qualified Code(s): R10.9 - Unspecified abdominal pain (2) Diarrhea Current Visit: Yes Status: Acute Assessment and plan: Diarrhea has improved C. difficile is negative Qualifiers: Qualified Code(s): R19.7 - Diarrhea, unspecified (3) Hypotension Current Visit: Yes Status: Acute Assessment and plan: Patient's blood pressure continues to be stable and improved Patient will be unlikely to tolerate scheduled diuresis at this time. Patient' s renal dysfunction patient may need Midrin in the future. Qualifiers: Hypotension type: unspecified hypotension type Qualified Code(s): I95.9 - Hypotension, unspecified (4) Anasarca Current Visit: Yes Status: Acute Assessment and plan: Patient has been given several doses of IV Lasix with albumin and this has been effective with diuresis however the patient's blood pressure is unable to tolerate scheduled diuresis Patient is a -1.2 L fluid last 24 hours (5) Acute thrombosis of cephalic vein Current Visit: Yes Status: Acute Assessment and plan: Left upper extremity swelling was noted and ultrasound was performed which revealed acute superficial venous thrombosis of the left cephalic vein. Due to the patient's current intra-abdominal hematoma and superficial nature anticoagulation will not be started. We will monitor. -Continue to apply warm compress to the left upper extremity Qualifiers: Laterality: left Qualified Code(s): I82.612 - Acute embolism and thrombosis of superficial veins of left upper extremity (6) Atrial fibrillation Current Visit: Yes Status: Chronic Assessment and plan: 04/12/18 - on bb, amiodarone at home. Not on AC Heart rate remains controlled patient will not tolerate anticoagulation therapy Will resume medications as blood pressure allows (7) Anemia Current Visit: Yes Status: Chronic Assessment and plan: Likely due to anemia of chronic disease. Patient did have a slight drop in her hemoglobin today from 10.1 to 8.6 however the patient is hemodynamically stable with improved physical exam, we will monitor Qualifiers: Anemia type: other cause Other causes of anemia: chronic disease, other Qualified Code(s): D63.8 - Anemia in other chronic diseases classified elsewhere (8) Chronic kidney disease, stage IV (severe) Current Visit: Yes Status: Chronic Assessment and plan: 04/12/18 - Cr slightly trended down today with adequote UOP unable to exclude obstructive uropathy from pelvic fluid as a cause in view of the CT finding of increasing R hydronephrosis L kidney is atrophic Continue to monitor without any diuretic spoke to IR regarding percutaneous drainage of the complex pelvic fluid collection, will be done tomorrow Urology also on consult -> follow Cr, no urgent need for stent insertion 04/13/18 - creatinine continues to improve, fluid balance -1.9L; will monitor 04/14/18 -2 L fluid balance over the last 24 hours. Creatinine stable at 1.71. 04/14/18 - -1.2 L fluid balance over the last 24 hours creatinine remained stable at 1.69 (9) UTI (urinary tract infection) Current Visit: Yes Status: Resolved Assessment and plan: s/p completed Rocephin regimen (10) DVT prophylaxis Current Visit: Yes Status: Acute Assessment and plan: SQ heparin - Time Spent With Patient Total time spent is greater than 50% in coordination of care (as documented) at patient's floor/unit and/or counseling patient: 25 - 35 minutes - Subjective Interval history: Patient seen and evaluated at bedside. Patient had no overnight events. Patient states her diarrhea has improved. Clostridium difficile toxin is negative. Patient states her abdominal pain is a little improved, denies any chest pain, shortness breath, nausea, vomiting. IV vancomycin was added by ID yesterday secondary to culture results. - Constitutional Vitals: Temp Pulse Resp BP Pulse Ox 97.6 F 84 16 118/72 99 04/15/18 07:22 04/15/18 07:22 04/15/18 07:49 04/15/18 07:22 04/15/18 07:49 General appearance: Present: A&O X 3, obese Exam: Constitutional: No acute distress, Alert Psych: AAO x 3 HEENT: NCAT, EOMI Neck: supple, no JVD Cardio: regular rate and rhythm, +s1s2, no murmurs/rubs/ronchi, no lower extremity edema, no JVD Resp: Decreased breath sounds in bases. Abd: soft, mildly tender to palpation throughout, no guarding rebound or rigidity, drain in place still draining purulent material. No change in exam Extremities: Pain in the bilateral lower extremities there is 2-3+ pitting edema bilaterally unchanged, there is some mild ecchymosis on the anterior shins. Neuro: Moves extremities symmetrically, notable chronic weakness in the lower cavities Internal Medicine: Result - Labs CBC & Chem 7: 04/15/18 03:15 04/15/18 03:15 Labs: Short CBC 04/15/18 Range/Units 03:15 WBC 8.5 (4.3-11.1) K/mcL Hgb 8.6 L D (11.5-15.4) g/dL Hct 27.6 L (35.3-44.9) % Plt Count 164 (140-400) K/mcL Neutrophils # 7.1 (1.6-8.9) K/mcL BMP 04/15/18 03:15 Sodium 138 Potassium 3.6 Chloride 106 Carbon Dioxide 22 L BUN 39 H Creatinine 1.69 H Glucose 90 Calcium 8.2 L - ABG Interpretation ABG results: PT/INR, D-dimer PT 15.8 Seconds (9.4-12.1) H 03/30/18 06:58 - VTE Documentation of Mechanical Device: Intermittent pneumatic compression device Consult Discharge Plan - Plan Referrals: Lokesh Cooper MD [Primary Care Provider] -
[2018-04-15] MEDS: Cefepime HCl 2,000 MG in 0.9 % Sodium Chloride Mini Bag 100 ML IVPB SCH (12:22)
--- NOTE | 2018-04-15 12:43 | Infectious Disease Progress No ---
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 Her only complaint today is a feeling of mild indigestion. She denies worsening abdominal pain. Denies fever , chills, nausea, or vomiting. No further complaints. Infect Dis PN-Objective Data - Labs CBC & Chem 7: 04/15/18 03:15 04/15/18 03:15 Labs: Laboratory Results - last 24 hr 04/14/18 04/15/18 04/15/18 11:25 03:15 03:15 WBC 8.5 RBC 3.01 L Hgb 8.6 L D Hct 27.6 L MCV 91.7 MCH 28.6 MCHC 31.2 L RDW 18.5 H Plt Count 164 MPV 9.7 Immature Gran % 2.7 Seg Neutrophils % 84.1 Lymphocytes % 7.1 Monocytes % 4.8 Eosinophils % 1.2 Basophils % 0.1 Neutrophils # 7.1 Lymphocytes # 0.6 Monocytes # 0.4 Eosinophils # 0.1 Basophils # 0.0 Sodium 138 Potassium 3.6 Chloride 106 Carbon Dioxide 22 L BUN 39 H Creatinine 1.69 H Est GFR ( Amer) 36 L Est GFR (Non-Af Amer) 30 L BUN/Creatinine Ratio 23 Glucose 90 Calculated Osmolality 295 Calcium 8.2 L Stl C. diff Tox B Gene Negative Random Vancomycin 04/15/18 03:15 WBC RBC Hgb Hct MCV MCH MCHC RDW Plt Count MPV Immature Gran % Seg Neutrophils % Lymphocytes % Monocytes % Eosinophils % Basophils % Neutrophils # Lymphocytes # Monocytes # Eosinophils # Basophils # Sodium Potassium Chloride Carbon Dioxide BUN Creatinine Est GFR ( Amer) Est GFR (Non-Af Amer) BUN/Creatinine Ratio Glucose Calculated Osmolality Calcium Stl C. diff Tox B Gene Random Vancomycin 15 Cultures: Cultures 04/10/18 20:55 Body Fluid Culture - Preliminary Peritoneal Fluid Gram Negative Sammy Escherichia coli Staphylococcus epidermidis Enterococcus faecium Serology 04/14/18 04/05/18 Range/Units 11:25 13:15 Urine Color Yellow (Yellow) Urine Clarity Clear (Clear) Urine pH 5.5 (5.0-8.0) pH Units Ur Specific [place] 1.020 (1.010-1.025) Urine Protein 100 H (Neg-Trace) mg/dL Urine Glucose (UA) Normal (Normal) mg/dL Urine Ketones Negative (Negative) mg/dL Urine Blood Moderate H (Negative) Urine Nitrite Negative (Negative) Urine Bilirubin Small H (Negative) Urine Urobilinogen Normal (Normal) mg/dL Ur Leukocyte Esterase Small H (Negative) Urine Microscopic RBC 5-15 H (0-3) per hpf Urine Microscopic WBC 50-100 H (0-3) per hpf Ur Squamous Epith Cells Many H (None-Few) per lpf Urine Bacteria None Seen (None-Few) per hpf Urine Yeast Moderate H (None Seen) per hpf Ur Culture Indicated? NO. A (NO) Stl C. diff Tox B Gene Negative (Negative) Exam - Constitutional Vitals: Temp Pulse Resp BP Pulse Ox 98.2 F 76 14 110/73 95 04/15/18 11:55 04/15/18 11:55 04/15/18 11:55 04/15/18 11:55 04/15/18 11:55 - Additional findings Additional findings: - Head Head exam: Present: atraumatic, normal inspection - Respiratory Respiratory exam: Present: CTAB. Absent: rhonchi, wheezes, tachypnea - Cardiovascular Cardiovascular exam: Present: RRR, +S1, +S2. Absent: bradycardia, tachycardia - GI/Abdominal GI/Abdominal exam: Present: normal bowel sounds, soft, tenderness Additional comments: Drain visible from the left side of the abdomen. Purulent drainage is visible. - Extremities Exam Extremities exam: Present: full ROM. Absent: pedal edema - Neurological Exam Neurological exam: Present: alert, oriented X3 - Psychiatric Psychiatric exam: Present: normal affect, normal mood - Skin Skin exam: Present: dry, intact - VTE Documentation of Mechanical Device: Intermittent pneumatic compression device Consult Discharge Plan - Plan Referrals: Lokesh Cooper MD [Primary Care Provider] - - Attending Attestation I examined this patient and my medical decision-making was reviewed with the Resident Physician. I agree with the documented findings, disposition and treatment plan as described except to the extent set forth below.
[2018-04-15] MEDS ORDERED: DAPTOmycin 500 MG in 0.9 % Sodium Chloride 100 ML IVPB SCH (16:00)
[2018-04-15] MEDS: Acetaminophen 325 MG TABLET PO PRN (23:02)
[2018-04-16] MEDS: MetroNIDAZOLE 500 MG/100 ML 500 MG/100 ML BAG IVPB SCH ×3 (00:43→15:53)
[2018-04-16 05:07] LABS: Basophils % 0.2 %; Eosinophils # 0.1 K/mcL (0.0-0.6); Eosinophils % 1.3 %; Hematocrit 27.5 % (35.3-44.9); Hemoglobin 8.6 g/dL (11.5-15.4); Immature Granulocytes % 2.1 % (0-4); Lymphocytes # 0.8 K/mcL (0.6-4.6); Lymphocytes % 9.3 %; Mean Corpuscular HGB Conc 31.3 g/dL (31.6-35.5); Mean Corpuscular Hemoglobin 28.8 pg (28.0-33.3); Mean Platelet Volume 10.7 fL (9.4-12.4); Monocytes # 0.4 K/mcL (0.0-1.3); Monocytes % 4.5 %; Platelet Count 188 K/mcL (140-400); Red Blood Count 2.99 M/mcL (3.82-4.97); Red Cell Distribution Width 18.8 % (11.5-14.5); Segmented Neutrophils % 82.6 %
[2018-04-16 05:20] LABS: BUN/Creatinine Ratio 22 (6-26); Blood Urea Nitrogen 36 mg/dL (8-23); Calcium 8.3 mg/dL (8.6-10.3); Carbon Dioxide 24 mEq/L (23-29); Chloride 106 mEq/L (98-107); Creatine Kinase < 10 Units/L (30-223); Glucose 91 mg/dL (70-105); Osmolality,Calculated 290 (280-300); Potassium 3.6 mEq/L (3.5-5.1); Sodium 136 mEq/L (136-145); eGFR For Non-African Americans 31 (> 60)
[2018-04-16] MEDS: *HR* Heparin 5,000 UNIT/ML VIAL SQ SCH ×3 (06:28→21:27)
[2018-04-16] MEDS: Budesonide/Formoterol 160/4.5 MDI IH SCH ×2 (07:40→21:47)
--- NOTE | 2018-04-16 09:17 | General Surgery Progress Note ---
Date of Encounter: 04/16/18 Time of Encounter: 08:00 - Assessment and Plan (1) Intra-abdominal hematoma Current Visit: Yes Status: Acute patient s/p IR drain placement into hematoma - is infected, antibiotics per ID need to leave drain in place at this time, no not remove continue diet having appropriate bowel function Qualifiers: Encounter type: initial encounter Qualified Code(s): S36.92XA - Contusion of unspecified intra-abdominal organ, initial encounter Subjective Patient reports: no new complaints, still having pain, pain is less, tolerating a regular diet, flatus, bowel movement Objective Vital Signs - Last 8 Hours Temp Pulse Resp BP Pulse Ox 04/16/18 07:41 17 98 04/16/18 04:20 97.9 F 80 16 109/70 97 Intake and Output 04/15/18 04/16/18 04/16/18 23:59 07:59 15:59 Intake Total 460 / 460 100 / 100 Output Total 225 / 225 125 / 125 Balance 235 / 235 -25 / -25 Intake: IV Fluids 100 / 100 100 / 100 Flagyl Premix 500 MG/100 ML 500 100 / 100 100 / 100 mg In 100 ml @ 100 mls/hr IVPB Q8HR [facility] Rx#:[id number] Oral 360 / 360 0 / 0 Output: Catheter 200 / 200 100 / 100 Wound Drainage 25 / 25 25 / 25 Left paracentesis drain 25 / 25 25 / 25 Other: Meal Dinner Percent of Meal Consumed 25% Stool Size Small Stool Consistency liquid Stool Color Brown Weight 103.4 kg Patient Weight 04/16/18 23:59 Weight 103.4 kg - General physical appearance well developed, well nourished, no distress - Eyes normal ocular movement - ENT normal mucosa, normocephalic - Neck Neck exam: trachea midline - Respiratory normal expansion, normal respiratory effort - Cardiovascular Cardiovascular exam: Present: RRR - Abdomen Abdomen: Present: bowel sounds present, soft, distended, tender (minimal tenderness). Absent: guarding, rebound - Integumentary no growths - Neurologic CN 2-12 grossly intact - Musculoskeletal normal posture - Psychiatric oriented to time, oriented to person, speech is normal - Labs 04/16/18 04:05 04/16/18 04:05 Diabetes panel 04/16/18 Range/Units 04:05 Sodium 136 (136-145) mEq/L Potassium 3.6 (3.5-5.1) mEq/L Chloride 106 (98-107) mEq/L Carbon Dioxide 24 (23-29) mEq/L BUN 36 H (8-23) mg/dL Creatinine 1.61 H (0.60-1.20) mg/dL Glucose 91 (70-105) mg/dL Calcium 8.3 L (8.6-10.3) mg/dL Calcium panel 04/16/18 Range/Units 04:05 Calcium 8.3 L (8.6-10.3) mg/dL Pituitary panel 04/16/18 Range/Units 04:05 Sodium 136 (136-145) mEq/L Potassium 3.6 (3.5-5.1) mEq/L Chloride 106 (98-107) mEq/L Carbon Dioxide 24 (23-29) mEq/L BUN 36 H (8-23) mg/dL Creatinine 1.61 H (0.60-1.20) mg/dL Glucose 91 (70-105) mg/dL Calcium 8.3 L (8.6-10.3) mg/dL Adrenal panel 04/16/18 Range/Units 04:05 Sodium 136 (136-145) mEq/L Potassium 3.6 (3.5-5.1) mEq/L Chloride 106 (98-107) mEq/L Carbon Dioxide 24 (23-29) mEq/L BUN 36 H (8-23) mg/dL Creatinine 1.61 H (0.60-1.20) mg/dL Glucose 91 (70-105) mg/dL Calcium 8.3 L (8.6-10.3) mg/dL - VTE Documentation of Mechanical Device: Intermittent pneumatic compression device Consult Discharge Plan - Plan Referrals: Lokesh Cooper MD [Primary Care Provider] -
[2018-04-16] MEDS: Aspirin Enteric Coated 81 MG Tablet PO SCH (09:30)
[2018-04-16] MEDS: *HR* Amiodarone 200 MG TABLET PO SCH (09:30)
[2018-04-16] MEDS: Loratadine 10 MG TABLET PO SCH (09:30)
[2018-04-16] MEDS: Fluticasone Propionate Nasal 50 MCG/SPRAY BOTTLE NS SCH (09:31)
--- NOTE | 2018-04-16 09:56 | Infectious Disease Progress No ---
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 Her only complaint today was mild left sided groin pain. She denies worsening abdominal pain. Denies fever, chills, nausea, or vomiting. No further complaints. Infect Dis PN-Objective Data - Labs CBC & Chem 7: 04/16/18 04:05 04/16/18 04:05 Labs: Laboratory Results - last 24 hr 04/16/18 04/16/18 04:05 04:05 WBC 8.5 RBC 2.99 L Hgb 8.6 L Hct 27.5 L MCV 92.0 MCH 28.8 MCHC 31.3 L RDW 18.8 H Plt Count 188 MPV 10.7 Immature Gran % 2.1 Seg Neutrophils % 82.6 Lymphocytes % 9.3 Monocytes % 4.5 Eosinophils % 1.3 Basophils % 0.2 Neutrophils # 7.0 Lymphocytes # 0.8 Monocytes # 0.4 Eosinophils # 0.1 Basophils # 0.0 Sodium 136 Potassium 3.6 Chloride 106 Carbon Dioxide 24 BUN 36 H Creatinine 1.61 H Est GFR ( Amer) 38 L Est GFR (Non-Af Amer) 31 L BUN/Creatinine Ratio 22 Glucose 91 Calculated Osmolality 290 Calcium 8.3 L Creatine Kinase < 10 L Cultures: Cultures 04/10/18 20:55 Body Fluid Culture - Preliminary Peritoneal Fluid Gram Negative Sammy Escherichia coli Staphylococcus epidermidis Enterococcus faecium Serology 04/14/18 04/05/18 Range/Units 11:25 13:15 Urine Color Yellow (Yellow) Urine Clarity Clear (Clear) Urine pH 5.5 (5.0-8.0) pH Units Ur Specific [place] 1.020 (1.010-1.025) Urine Protein 100 H (Neg-Trace) mg/dL Urine Glucose (UA) Normal (Normal) mg/dL Urine Ketones Negative (Negative) mg/dL Urine Blood Moderate H (Negative) Urine Nitrite Negative (Negative) Urine Bilirubin Small H (Negative) Urine Urobilinogen Normal (Normal) mg/dL Ur Leukocyte Esterase Small H (Negative) Urine Microscopic RBC 5-15 H (0-3) per hpf Urine Microscopic WBC 50-100 H (0-3) per hpf Ur Squamous Epith Cells Many H (None-Few) per lpf Urine Bacteria None Seen (None-Few) per hpf Urine Yeast Moderate H (None Seen) per hpf Ur Culture Indicated? NO. A (NO) Stl C. diff Tox B Gene Negative (Negative) Exam - Constitutional Vitals: Temp Pulse Resp BP Pulse Ox 97.4 F L 87 15 114/72 98 04/16/18 08:25 04/16/18 08:25 04/16/18 08:25 04/16/18 08:25 04/16/18 08:25 - Additional findings Additional findings: - Head Head exam: Present: atraumatic, normal inspection - Respiratory Respiratory exam: Present: CTAB. Absent: rhonchi, wheezes, tachypnea - Cardiovascular Cardiovascular exam: Present: RRR, +S1, +S2. Absent: bradycardia, tachycardia - GI/Abdominal GI/Abdominal exam: Present: normal bowel sounds, soft, tenderness Additional comments: Drain visible from the left side of the abdomen. Purulent drainage is visible. - Extremities Exam Extremities exam: Present: full ROM. Absent: pedal edema - Skin Skin exam: Present: dry, intact - VTE Documentation of Mechanical Device: Intermittent pneumatic compression device Consult Discharge Plan - Plan Referrals: Lokesh Cooper MD [Primary Care Provider] - - Attending Attestation I examined this patient and my medical decision-making was reviewed with the Resident Physician. I agree with the documented findings, disposition and treatment plan as described except to the extent set forth below.
[2018-04-16] MEDS: Cefepime HCl 2,000 MG in 0.9 % Sodium Chloride Mini Bag 100 ML IVPB SCH (10:50)
--- NOTE | 2018-04-16 11:49 | Internal Med Progress Note ---
Date of Encounter: 04/16/18 Time of Encounter: 11:48 - Assessment and plan (1) Abdominal pain Current Visit: Yes Status: Acute Assessment and plan: Multifactorial: UTI s/p tx Should with infected abdominal hematoma -cultures from the abdominal hematoma drain are currently growing Escherichia coli/staph epidermidis/enteroccocus -Drain remains in place draining purulent material -Infectious disease following will continue IV Flagyl and cefepime; IV vanco changed to dapto 2/2 enteroccus fac. typically being VRE -Diarrhea improved and C. difficile is negative -We will likely need long-term antibiotics will discuss with ID; however continue to await sensitivities; possibly rocephin and dapto per current sensitivies; await final report -Infectious disease recommendations appreciated Qualifiers: Abdominal location: unspecified location Qualified Code(s): R10.9 - Unspecified abdominal pain (2) Diarrhea Current Visit: Yes Status: Acute Assessment and plan: Diarrhea has continue to improve C. difficile is negative Qualifiers: Qualified Code(s): R19.7 - Diarrhea, unspecified (3) Hypotension Current Visit: Yes Status: Acute Assessment and plan: Patient's blood pressure continues to be stable and improved and is now normal Patient will be unlikely to tolerate scheduled diuresis at this time. may need Midrin in the future. Qualifiers: Hypotension type: unspecified hypotension type Qualified Code(s): I95.9 - Hypotension, unspecified (4) Anasarca Current Visit: Yes Status: Acute Assessment and plan: Patient has been given several doses of IV Lasix with albumin and this has been effective with diuresis however the patient's blood pressure is unable to tolerate scheduled diuresis; although this is improved today Patient is a -0.9L fluid last 24 hours (5) Acute thrombosis of cephalic vein Current Visit: Yes Status: Acute Assessment and plan: Left upper extremity swelling was noted and ultrasound was performed which revealed acute superficial venous thrombosis of the left cephalic vein. Due to the patient's current intra-abdominal hematoma and superficial nature anticoagulation will not be started. We will monitor. -Continue to apply warm compress to the left upper extremity Qualifiers: Laterality: left Qualified Code(s): I82.612 - Acute embolism and thrombosis of superficial veins of left upper extremity (6) Atrial fibrillation Current Visit: Yes Status: Chronic Assessment and plan: on bb, amiodarone at home. Not on AC Heart rate remains controlled patient will not tolerate anticoagulation therapy Will resume medications as blood pressure allows; continue to hold for now (7) Anemia Current Visit: Yes Status: Chronic Assessment and plan: Likely due to anemia of chronic disease. Patient did have a slight drop in her hemoglobin yesterday from 10.1 to 8.6 however the patient is hemodynamically stable with improved physical exam, we will monitor -hg 8.6 again today Qualifiers: Anemia type: other cause Other causes of anemia: chronic disease, other Qualified Code(s): D63.8 - Anemia in other chronic diseases classified elsewhere (8) Chronic kidney disease, stage IV (severe) Current Visit: Yes Status: Chronic Assessment and plan: 04/12/18 - Cr slightly trended down today with adequote UOP unable to exclude obstructive uropathy from pelvic fluid as a cause in view of the CT finding of increasing R hydronephrosis L kidney is atrophic Continue to monitor without any diuretic spoke to IR regarding percutaneous drainage of the complex pelvic fluid collection, will be done tomorrow Urology also on consult -> follow Cr, no urgent need for stent insertion 04/13/18 - creatinine continues to improve, fluid balance -1.9L; will monitor 04/14/18 -2 L fluid balance over the last 24 hours. Creatinine stable at 1.71. 04/15/18 - -1.2 L fluid balance over the last 24 hours creatinine remained stable at 1.69 04/16/18 - creatinine continues to improve the 1.69 which is better than her baseline, continue to monitor (9) UTI (urinary tract infection) Current Visit: Yes Status: Resolved Assessment and plan: s/p completed Rocephin regimen (10) DVT prophylaxis Current Visit: Yes Status: Acute Assessment and plan: SQ heparin - Time Spent With Patient Total time spent is greater than 50% in coordination of care (as documented) at patient's floor/unit and/or counseling patient: 25 - 35 minutes - Subjective Interval history: Patient seen and examined at bedside. Patient had no overnight events. Patient working with physical therapy and evaluation. The patient is in much better spirits today. Patient denies any complaints other than weakness. She denies any chest pain, shortness breath, nausea, vomiting. Patient states that her abdominal pain is improved. Patient also states that her diarrhea is improved. Still awaiting the final microbiology culture report for sensitivities. - Constitutional Vitals: Temp Pulse Resp BP Pulse Ox 97.4 F L 87 15 114/72 98 04/16/18 08:25 04/16/18 08:25 04/16/18 08:25 04/16/18 08:25 04/16/18 09:40 General appearance: Present: A&O X 3, obese Exam: Constitutional: No acute distress, Alert Psych: AAO x 3 HEENT: NCAT, EOMI Neck: supple, no JVD Cardio: regular rate and rhythm, 2/6 systolic murmur that is chronic Resp: Decreased breath sounds in bases 2/2 habitus Abd: soft, mildly tender to palpation throughout but less than prior. no guarding rebound or rigidity, drain in place still draining purulent material. Extremities: Pain in the bilateral lower extremities there is 2-3+ pitting edema bilaterally unchanged, there is some mild ecchymosis on the anterior shins. Neuro: Moves extremities symmetrically, notable chronic weakness in the lower cavities Internal Medicine: Result - Labs CBC & Chem 7: 04/16/18 04:05 04/16/18 04:05 Labs: Short CBC 04/16/18 Range/Units 04:05 WBC 8.5 (4.3-11.1) K/mcL Hgb 8.6 L (11.5-15.4) g/dL Hct 27.5 L (35.3-44.9) % Plt Count 188 (140-400) K/mcL Neutrophils # 7.0 (1.6-8.9) K/mcL BMP 04/16/18 04:05 Sodium 136 Potassium 3.6 Chloride 106 Carbon Dioxide 24 BUN 36 H Creatinine 1.61 H Glucose 91 Calcium 8.3 L - ABG Interpretation ABG results: PT/INR, D-dimer PT 15.8 Seconds (9.4-12.1) H 03/30/18 06:58 - VTE Documentation of Mechanical Device: Intermittent pneumatic compression device Consult Discharge Plan - Plan Referrals: Lokesh Cooper MD [Primary Care Provider] -
[2018-04-16] MEDS: Acetaminophen 325 MG TABLET PO PRN (16:08)
[2018-04-17] MEDS: MetroNIDAZOLE 500 MG/100 ML 500 MG/100 ML BAG IVPB SCH ×3 (00:41→16:08)
[2018-04-17 01:51] LABS: Basophils % 0.2 %; Eosinophils # 0.1 K/mcL (0.0-0.6); Eosinophils % 1.4 %; Hematocrit 29.6 % (35.3-44.9); Hemoglobin 9.3 g/dL (11.5-15.4); Immature Granulocytes % 1.7 % (0-4); Lymphocytes # 0.9 K/mcL (0.6-4.6); Lymphocytes % 9.7 %; Mean Corpuscular HGB Conc 31.4 g/dL (31.6-35.5); Mean Corpuscular Hemoglobin 29.2 pg (28.0-33.3); Mean Corpuscular Volume 92.8 fL (83.0-100.0); Mean Platelet Volume 9.5 fL (9.4-12.4); Monocytes # 0.4 K/mcL (0.0-1.3); Monocytes % 4.3 %; Neutrophils # 7.5 K/mcL (1.6-8.9); Platelet Count 175 K/mcL (140-400); Red Blood Count 3.19 M/mcL (3.82-4.97); Red Cell Distribution Width 18.9 % (11.5-14.5); Segmented Neutrophils % 82.7 %
[2018-04-17 02:17] LABS: Calcium 8.1 mg/dL (8.6-10.3); Potassium 3.5 mEq/L (3.5-5.1)
[2018-04-17] MEDS: *HR* Heparin 5,000 UNIT/ML VIAL SQ SCH ×3 (06:22→22:47)
[2018-04-17] MEDS: Aspirin Enteric Coated 81 MG Tablet PO SCH (08:38)
[2018-04-17] MEDS: *HR* Amiodarone 200 MG TABLET PO SCH (08:39)
[2018-04-17] MEDS: Fluticasone Propionate Nasal 50 MCG/SPRAY BOTTLE NS SCH (10:00)
[2018-04-17] MEDS: Budesonide/Formoterol 160/4.5 MDI IH SCH ×2 (10:42→19:36)
--- NOTE | 2018-04-17 11:57 | Internal Med Progress Note ---
Date of Encounter: 04/17/18 Time of Encounter: 11:55 - Assessment and plan (1) Abdominal pain Current Visit: Yes Status: Acute Assessment and plan: Multifactorial: UTI s/p tx Should with infected abdominal hematoma -cultures from the abdominal hematoma drain are currently growing Escherichia coli/staph epidermidis/enteroccocus -Drain remains in place draining purulent material -Infectious disease following will continue IV Flagyl and cefepime; IV vanco -Diarrhea improved and C. difficile is negative -Case discussed with infectious disease; we will obtain a repeat CT scan on Thursday 04/19 for evaluation of hematoma -We will likely discharge on IV antibiotics with IV vancomycin and possibly Rocephin(or ID recs) for 2 additional weeks followed by 2 additional weeks of by mouth antibiotics -We will discontinue Flagyl soon if okay with ID Qualifiers: Abdominal location: unspecified location Qualified Code(s): R10.9 - Unspecified abdominal pain (2) Diarrhea Current Visit: Yes Status: Acute Assessment and plan: Patient denies diarrhea today C. difficile is negative Qualifiers: Qualified Code(s): R19.7 - Diarrhea, unspecified (3) Hypotension Current Visit: Yes Status: Acute Assessment and plan: Patient's blood pressure continues to be stable and improved and is now normal -We will attempt to restart the patient's Lasix today; may have to discontinue if blood pressure cannot tolerate -may need Midrin in the future. Qualifiers: Hypotension type: unspecified hypotension type Qualified Code(s): I95.9 - Hypotension, unspecified (4) Anasarca Current Visit: Yes Status: Acute Assessment and plan: Patient has been given several doses of IV Lasix with albumin and this has been effective with diuresis -She has been unable to tolerate diuresis; however due to her improved blood pressure, will resume her home Lasix of 40 mg daily; need to be increased to reach threshold with her chronic kidney disease, -will monitor Patient is a -0.875L fluid last 24 hours (5) Acute thrombosis of cephalic vein Current Visit: Yes Status: Acute Assessment and plan: Left upper extremity swelling was noted and ultrasound was performed which revealed acute superficial venous thrombosis of the left cephalic vein. Due to the patient's current intra-abdominal hematoma and superficial nature anticoagulation will not be started. We will monitor. -Continue to apply warm compress to the left upper extremity Qualifiers: Laterality: left Qualified Code(s): I82.612 - Acute embolism and thrombosis of superficial veins of left upper extremity (6) Atrial fibrillation Current Visit: Yes Status: Chronic Assessment and plan: on bb, amiodarone at home. Not on AC -Heart rate remains controlled patient will not tolerate anticoagulation therapy -Will resume medications as blood pressure allows; continue to hold for now -resuming Lasix today and blood pressure is stable tomorrow will likely resume amiodarone (7) Anemia Current Visit: Yes Status: Chronic Assessment and plan: Likely due to anemia of chronic disease. -hg 9.3 today -will monitor Qualifiers: Anemia type: other cause Other causes of anemia: chronic disease, other Qualified Code(s): D63.8 - Anemia in other chronic diseases classified elsewhere (8) Chronic kidney disease, stage IV (severe) Current Visit: Yes Status: Chronic Assessment and plan: 04/12/18 - Cr slightly trended down today with adequote UOP unable to exclude obstructive uropathy from pelvic fluid as a cause in view of the CT finding of increasing R hydronephrosis L kidney is atrophic Continue to monitor without any diuretic spoke to IR regarding percutaneous drainage of the complex pelvic fluid collection, will be done tomorrow Urology also on consult -> follow Cr, no urgent need for stent insertion 04/13/18 - creatinine continues to improve, fluid balance -1.9L; will monitor 04/14/18 -2 L fluid balance over the last 24 hours. Creatinine stable at 1.71. 04/15/18 - -1.2 L fluid balance over the last 24 hours creatinine remained stable at 1.69 04/16/18 - creatinine continues to improve the 1.69 which is better than her baseline, continue to monitor 04/17/18 - creatinine stable 1.59 today; will resume home Lasix (9) UTI (urinary tract infection) Current Visit: Yes Status: Resolved Assessment and plan: s/p completed Rocephin regimen (10) DVT prophylaxis Current Visit: Yes Status: Acute Assessment and plan: SQ heparin - Time Spent With Patient Total time spent is greater than 50% in coordination of care (as documented) at patient's floor/unit and/or counseling patient: 25 - 35 minutes - Subjective Interval history: Patient seen and examined at bedside. Patient had no overnight events. Patient denies any specific complaints other than some discomfort at the site of the abdominal drain. Patient denies any chest pain, shortness breath, nausea , vomiting, diarrhea. Patient remains afebrile. - Constitutional Vitals: Temp Pulse Resp BP Pulse Ox 97.8 F 86 18 114/73 100 04/17/18 11:03 04/17/18 11:03 04/17/18 11:03 04/17/18 11:03 04/17/18 11:03 General appearance: Present: A&O X 3, obese Exam: Constitutional: No acute distress, Alert Psych: AAO x 3 HEENT: NCAT, EOMI Neck: supple, no JVD Cardio: regular rate and rhythm, 2/6 systolic murmur that is chronic Resp: Decreased breath sounds in bases 2/2 habitus Abd: soft, mildly tender to palpation throughout but; no guarding rebound or rigidity, drain in place still draining purulent material. benign exam Extremities: Pain in the bilateral lower extremities there is 2-3+ pitting edema bilaterally unchanged, there is some mild ecchymosis on the anterior shins. PICC in RUE with no erythema Neuro: Moves extremities symmetrically, notable chronic weakness in the lower cavities Internal Medicine: Result - Labs CBC & Chem 7: 04/17/18 01:39 04/17/18 01:39 Labs: Short CBC 04/17/18 Range/Units 01:39 WBC 9.1 (4.3-11.1) K/mcL Hgb 9.3 L (11.5-15.4) g/dL Hct 29.6 L (35.3-44.9) % Plt Count 175 (140-400) K/mcL Neutrophils # 7.5 (1.6-8.9) K/mcL BMP 04/17/18 01:39 Sodium 138 Potassium 3.5 Chloride 106 Carbon Dioxide 22 L BUN 32 H Creatinine 1.59 H Glucose 98 Calcium 8.1 L - ABG Interpretation ABG results: PT/INR, D-dimer PT 15.8 Seconds (9.4-12.1) H 03/30/18 06:58 - VTE Documentation of Mechanical Device: Intermittent pneumatic compression device Consult Discharge Plan - Plan Referrals: Lokesh Cooper MD [Primary Care Provider] -
[2018-04-17] MEDS: Furosemide 40 MG TABLET PO SCH (12:36)
[2018-04-17] MEDS: Ondansetron ODT 4 MG TAB.RAPDIS PO PRN (12:58)
[2018-04-17] MEDS: Acetaminophen 325 MG TABLET PO PRN (16:11)
[2018-04-17] MEDS: Ipratropium/Albuterol Neb 3 ML IH PRN (19:36)
[2018-04-18] MEDS: MetroNIDAZOLE 500 MG/100 ML 500 MG/100 ML BAG IVPB SCH ×4 (00:50→23:58)
[2018-04-18 04:37] LABS: Basophils % 0.2 %; Eosinophils # 0.2 K/mcL (0.0-0.6); Eosinophils % 1.8 %; Hematocrit 29.5 % (35.3-44.9); Hemoglobin 8.9 g/dL (11.5-15.4); Lymphocytes % 9.6 %; Mean Corpuscular HGB Conc 30.2 g/dL (31.6-35.5); Mean Corpuscular Hemoglobin 28.2 pg (28.0-33.3); Mean Corpuscular Volume 93.4 fL (83.0-100.0); Mean Platelet Volume 10.4 fL (9.4-12.4); Monocytes # 0.5 K/mcL (0.0-1.3); Monocytes % 4.9 %; Neutrophils # 8.3 K/mcL (1.6-8.9); Platelet Count 203 K/mcL (140-400); Red Blood Count 3.16 M/mcL (3.82-4.97); Red Cell Distribution Width 19.3 % (11.5-14.5); Segmented Neutrophils % 81.5 %
[2018-04-18 04:53] LABS: Calcium 7.9 mg/dL (8.6-10.3); Potassium 3.8 mEq/L (3.5-5.1)
[2018-04-18] MEDS: *HR* Heparin 5,000 UNIT/ML VIAL SQ SCH ×3 (06:38→21:08)
[2018-04-18] MEDS: Acetaminophen 325 MG TABLET PO PRN ×2 (06:39→16:31)
[2018-04-18] MEDS: Budesonide/Formoterol 160/4.5 MDI IH SCH ×2 (07:49→21:42)
--- NOTE | 2018-04-18 08:59 | Internal Med Progress Note ---
Date of Encounter: 04/18/18 Time of Encounter: 08:56 - Assessment and plan (1) Abdominal pain Current Visit: Yes Status: Acute Assessment and plan: Multifactorial: UTI s/p tx Pt with infected abdominal hematoma; with hx of recent appendectomy -cultures from the abdominal hematoma drain are currently growing Escherichia coli/staph epidermidis/enteroccocus -Drain remains in place draining purulent material -Infectious disease following will continue IV Flagyl and cefepime; IV vanco -Diarrhea improved and C. difficile is negative -We will likely discharge on IV antibiotics with IV vancomycin and possibly Rocephin(or ID recs) for 2 additional weeks followed by 2 additional weeks of by mouth antibiotics -We will discontinue Flagyl soon if okay with ID -Obtain CT scan of the abdomen without contrast tomorrow for evaluation of hematoma size Qualifiers: Abdominal location: unspecified location Qualified Code(s): R10.9 - Unspecified abdominal pain (2) Diarrhea Current Visit: Yes Status: Acute Assessment and plan: Patient denies diarrhea today -likely secondary to antibiotic -C. difficile is negative Qualifiers: Qualified Code(s): R19.7 - Diarrhea, unspecified (3) Hypotension Current Visit: Yes Status: Acute Assessment and plan: Patient's blood pressure continues to be stable and improved and is now normal -Patient vomited Lasix yesterday so today will be her first dose -We will monitor renal function -Blood pressure tolerates Lasix will consider adding amiodarone back within 24- 48 hours -may need Midrin in the future. Qualifiers: Hypotension type: unspecified hypotension type Qualified Code(s): I95.9 - Hypotension, unspecified (4) Anasarca Current Visit: Yes Status: Acute Assessment and plan: Patient has been given several doses of IV Lasix with albumin and this has been effective with diuresis -Home dose of Lasix will be restarted today 40 mg daily as she vomited her first dose yesterday; may need to be increased to reach threshold with her chronic kidney disease, -will monitor Patient is a -0.6L fluid last 24 hours (5) Acute thrombosis of cephalic vein Current Visit: Yes Status: Acute Assessment and plan: Left upper extremity swelling was noted and ultrasound was performed which revealed acute superficial venous thrombosis of the left cephalic vein. Due to the patient's current intra-abdominal hematoma and superficial nature anticoagulation will not be started. We will monitor. -Continue to apply warm compress to the left upper extremity Qualifiers: Laterality: left Qualified Code(s): I82.612 - Acute embolism and thrombosis of superficial veins of left upper extremity (6) Atrial fibrillation Current Visit: Yes Status: Chronic Assessment and plan: on bb, amiodarone at home. Not on AC -Heart rate remains controlled patient will not tolerate anticoagulation therapy -Will resume medications as blood pressure allows; continue to hold for now -resuming Lasix today, if blood pressure is stable tomorrow will likely resume amiodarone soon (7) Anemia Current Visit: Yes Status: Chronic Assessment and plan: Likely due to anemia of chronic disease. -hg 8.9 today; stable -will monitor Qualifiers: Anemia type: other cause Other causes of anemia: chronic disease, other Qualified Code(s): D63.8 - Anemia in other chronic diseases classified elsewhere (8) Chronic kidney disease, stage IV (severe) Current Visit: Yes Status: Chronic Assessment and plan: 04/12/18 - Cr slightly trended down today with adequote UOP unable to exclude obstructive uropathy from pelvic fluid as a cause in view of the CT finding of increasing R hydronephrosis L kidney is atrophic Urology recommended to follow Cr, no urgent need for stent insertion; if creatinine worsens and hydronephrosis worsens then would likely need ureteral stent 04/13/18 - creatinine continues to improve, fluid balance -1.9L; will monitor 04/14/18 -2 L fluid balance over the last 24 hours. Creatinine stable at 1.71. 04/15/18 - -1.2 L fluid balance over the last 24 hours creatinine remained stable at 1.69 04/16/18 - creatinine continues to improve the 1.69 which is better than her baseline, continue to monitor 04/17/18 - creatinine stable 1.59 today 04/18/18 - creatinine continues to be stable 1.61 today; will monitor with the resumption of Lasix today (9) UTI (urinary tract infection) Current Visit: Yes Status: Resolved Assessment and plan: s/p completed Rocephin regimen (10) DVT prophylaxis Current Visit: Yes Status: Acute Assessment and plan: SQ heparin - Time Spent With Patient Total time spent is greater than 50% in coordination of care (as documented) at patient's floor/unit and/or counseling patient: 25 - 35 minutes - Subjective Interval history: Patient seen and examined at bedside. Patient had no overnight events. Pt states that her abdominal pain is about the same. Patient denies any chest pain , shortness breath, nausea, vomiting. Patient states she is no longer having frequent bowel movements but her bowel movements continue to be loose. Patient remains afebrile. - Constitutional Vitals: Temp Pulse Resp BP Pulse Ox 97.2 F L 78 16 110/76 99 04/18/18 06:43 04/18/18 06:43 04/18/18 06:43 04/18/18 06:43 04/18/18 06:43 General appearance: Present: A&O X 3, obese Exam: Constitutional: No acute distress, Alert, anasarca is present Psych: AAO x 3 HEENT: NCAT, EOMI Neck: supple, no JVD Cardio: regular rate and rhythm, 2/6 systolic murmur that is chronic Resp: Decreased breath sounds in bases 2/2 habitus Abd: soft, mildly tender to palpation throughout but; no guarding rebound or rigidity, drain in place still draining purulent material. benign exam Extremities: Pain in the bilateral lower extremities there is 2-3+ pitting edema bilaterally unchanged, there is some mild ecchymosis on the anterior shins. PICC in RUE with no erythema Neuro: Moves extremities symmetrically, notable chronic weakness in the lower cavities Internal Medicine: Result - Labs CBC & Chem 7: 04/18/18 03:45 04/18/18 03:45 Labs: Short CBC 04/18/18 Range/Units 03:45 WBC 10.2 (4.3-11.1) K/mcL Hgb 8.9 L (11.5-15.4) g/dL Hct 29.5 L (35.3-44.9) % Plt Count 203 (140-400) K/mcL Neutrophils # 8.3 (1.6-8.9) K/mcL BMP 04/18/18 03:45 Sodium 137 Potassium 3.8 Chloride 108 H Carbon Dioxide 24 BUN 31 H Creatinine 1.61 H Glucose 84 Calcium 7.9 L - ABG Interpretation ABG results: PT/INR, D-dimer PT 15.8 Seconds (9.4-12.1) H 03/30/18 06:58 - VTE Documentation of Mechanical Device: Intermittent pneumatic compression device Consult Discharge Plan - Plan Referrals: Lokesh Cooper MD [Primary Care Provider] -
[2018-04-18] MEDS: Fluticasone Propionate Nasal 50 MCG/SPRAY BOTTLE NS SCH (09:25)
[2018-04-18] MEDS: *HR* Amiodarone 200 MG TABLET PO SCH (09:49)
[2018-04-18] MEDS: Aspirin Enteric Coated 81 MG Tablet PO SCH (09:50)
[2018-04-18] MEDS: Loratadine 10 MG TABLET PO SCH (09:50)
[2018-04-18] MEDS: Furosemide 40 MG TABLET PO SCH (09:50)
[2018-04-18] MEDS: Cefepime HCl 2,000 MG in 0.9 % Sodium Chloride Mini Bag 100 ML IVPB SCH (09:50)
[2018-04-18] MEDS: Lactobacillus 1 EACH CAP.SPRINK PO SCH (16:13)
[2018-04-18] MEDS: Nystatin POWDER 30 GM BOTTLE TP SCH (21:07)
[2018-04-19 05:39] LABS: Basophils % 0.1 %; Eosinophils # 0.2 K/mcL (0.0-0.6); Eosinophils % 1.8 %; Hematocrit 29.1 % (35.3-44.9); Hemoglobin 8.8 g/dL (11.5-15.4); Immature Granulocytes % 2.4 % (0-4); Lymphocytes # 0.8 K/mcL (0.6-4.6); Lymphocytes % 8.3 %; Mean Corpuscular HGB Conc 30.2 g/dL (31.6-35.5); Mean Corpuscular Hemoglobin 28.2 pg (28.0-33.3); Mean Corpuscular Volume 93.3 fL (83.0-100.0); Mean Platelet Volume 10.2 fL (9.4-12.4); Monocytes # 0.5 K/mcL (0.0-1.3); Monocytes % 4.6 %; Neutrophils # 8.4 K/mcL (1.6-8.9); Platelet Count 189 K/mcL (140-400); Red Blood Count 3.12 M/mcL (3.82-4.97); Red Cell Distribution Width 19.5 % (11.5-14.5); Segmented Neutrophils % 82.8 %
[2018-04-19 05:59] LABS: Calcium 8.1 mg/dL (8.6-10.3); Phosphorous 2.7 mg/dL (2.7-4.5); Potassium 3.4 mEq/L (3.5-5.1)
[2018-04-19] MEDS: *HR* Heparin 5,000 UNIT/ML VIAL SQ SCH ×3 (06:12→21:22)
[2018-04-19] MEDS: Budesonide/Formoterol 160/4.5 MDI IH SCH ×2 (07:33→20:15)
[2018-04-19] MEDS: Lactobacillus 1 EACH CAP.SPRINK PO SCH (08:23)
[2018-04-19] MEDS: MetroNIDAZOLE 500 MG/100 ML 500 MG/100 ML BAG IVPB SCH ×2 (08:24→16:02)
[2018-04-19] MEDS: Cefepime HCl 2,000 MG in 0.9 % Sodium Chloride Mini Bag 100 ML IVPB SCH ×2 (08:25→08:26)
[2018-04-19] MEDS: Aspirin Enteric Coated 81 MG Tablet PO SCH (08:27)
[2018-04-19] MEDS: Furosemide 40 MG TABLET PO SCH (08:27)
[2018-04-19] MEDS: *HR* Amiodarone 200 MG TABLET PO SCH (08:27)
[2018-04-19] MEDS: Nystatin POWDER 30 GM BOTTLE TP SCH ×3 (08:28→23:06)
[2018-04-19] MEDS: Fluticasone Propionate Nasal 50 MCG/SPRAY BOTTLE NS SCH (08:33)
--- NOTE | 2018-04-19 10:00 | General Surgery Progress Note ---
<Pamela Garza E - Last Filed: 04/19/18 11:27> Date of Encounter: 04/19/18 Time of Encounter: 09:58 - Assessment and Plan (1) Intra-abdominal hematoma Current Visit: Yes Status: Acute IR drain placement into hematoma- is infected, antibiotics per ID drain to be left in place at this time continue diet Qualifiers: Encounter type: subsequent encounter Qualified Code(s): S36.92XD - Contusion of unspecified intra-abdominal organ, subsequent encounter Subjective Patient reports: feels better, pain is less, flatus, afebrile Narrative: tolerating diet, no bowel movement today but had one yesterday Objective Vital Signs - Last 8 Hours Temp Pulse Resp BP Pulse Ox 04/19/18 07:33 16 99 04/19/18 06:57 97.7 F 78 15 113/73 98 04/19/18 04:45 98.2 F 76 15 109/70 97 Intake and Output 04/18/18 04/19/18 04/19/18 23:59 07:59 15:59 Intake Total 140 / 140 700 / 700 320 / 320 Output Total 0 / 0 Balance 140 / 140 700 / 700 320 / 320 Intake: IV Fluids 100 / 100 600 / 600 200 / 200 Maxipime 2,000 MG In 0.9 % 100 / 100 Sodium Chloride (Mini-Bag +) 100 ML @ 200 mls/hr IVPB DAILY [facility] Rx#:[id number] Flagyl Premix 500 MG/100 ML 500 100 / 100 100 / 100 100 / 100 mg In 100 ml @ 100 mls/hr IVPB Q8HR [facility] Rx#:[id number] Vancocin 750 MG In 0.9 % Sodium 250 / 250 Chloride 250 ML @ 250 mls/hr IVPB ONCE ONE Rx#:[id number] Oral 40 / 40 100 / 100 120 / 120 Output: Urine 0 / 0 Other: Meal Dinner Breakfast Percent of Meal Consumed 20% 35% - General physical appearance well developed, well nourished, no distress, moderate pain - Eyes PERRL, normal ocular movement - ENT atraumatic, normocephalic - Respiratory normal expansion, normal respiratory effort, clear to auscultation - Cardiovascular Cardiovascular exam: Present: RRR, no murmurs/rubs/gallops - Abdomen Abdomen: Present: bowel sounds present, soft, non tender - Incision Incision: Present: draining, intact, purulent (drainage looks red/brown and purulent on the bottom of the drainage collection but has a layer of more serosanguinous drainage on top), serosanguinous - Integumentary no rash, no growths, no abnormal pigmentation - Neurologic normal coordination, normal sensation - Musculoskeletal normal posture - Psychiatric oriented to time, oriented to person, oriented to place - Labs 04/19/18 04:40 04/19/18 04:40 Diabetes panel 04/19/18 Range/Units 04:40 Sodium 136 (136-145) mEq/L Potassium 3.4 L (3.5-5.1) mEq/L Chloride 106 (98-107) mEq/L Carbon Dioxide 23 (23-29) mEq/L BUN 31 H (8-23) mg/dL Creatinine 1.67 H (0.60-1.20) mg/dL Glucose 84 (70-105) mg/dL Calcium 8.1 L (8.6-10.3) mg/dL Calcium panel 04/19/18 Range/Units 04:40 Calcium 8.1 L (8.6-10.3) mg/dL Phosphorus 2.7 (2.7-4.5) mg/dL Pituitary panel 04/19/18 Range/Units 04:40 Sodium 136 (136-145) mEq/L Potassium 3.4 L (3.5-5.1) mEq/L Chloride 106 (98-107) mEq/L Carbon Dioxide 23 (23-29) mEq/L BUN 31 H (8-23) mg/dL Creatinine 1.67 H (0.60-1.20) mg/dL Glucose 84 (70-105) mg/dL Calcium 8.1 L (8.6-10.3) mg/dL Adrenal panel 04/19/18 Range/Units 04:40 Sodium 136 (136-145) mEq/L Potassium 3.4 L (3.5-5.1) mEq/L Chloride 106 (98-107) mEq/L Carbon Dioxide 23 (23-29) mEq/L BUN 31 H (8-23) mg/dL Creatinine 1.67 H (0.60-1.20) mg/dL Glucose 84 (70-105) mg/dL Calcium 8.1 L (8.6-10.3) mg/dL - VTE Documentation of Mechanical Device: Intermittent pneumatic compression device Consult Discharge Plan - Plan Referrals: Lokesh Cooper MD [Primary Care Provider] - <Crystal Jimenez Chucky - Last Filed: 04/19/18 14:56> Date of Encounter: 04/19/18 Time of Encounter: 14:53 - Assessment and Plan (1) Intra-abdominal hematoma Current Visit: Yes Status: Acute patient had repeat CT abd/pelvis done 04/19 - if any further CT scans done please do with po contrast CT shows no signficant decrease in intraabdominal abscess size as drain is high , consulted IR for second drain placement lower on abdomen, cultures ordered continue abx Qualifiers: Qualified Code(s): S36.92XD - Contusion of unspecified intra-abdominal organ , subsequent encounter Subjective Patient reports: no new complaints Objective Vital Signs - Last 8 Hours Temp Pulse Resp BP Pulse Ox 04/19/18 10:30 98.7 F 85 17 116/59 99 04/19/18 07:33 16 99 04/19/18 06:57 97.7 F 78 15 113/73 98 Intake and Output 04/18/18 04/19/18 04/19/18 23:59 07:59 15:59 Intake Total 140 / 140 700 / 700 320 / 320 Output Total 0 / 0 30 Balance 140 / 140 700 / 700 290 / 290 Intake: IV Fluids 100 / 100 600 / 600 200 / 200 Maxipime 2,000 MG In 0.9 % 100 / 100 Sodium Chloride (Mini-Bag +) 100 ML @ 200 mls/hr IVPB DAILY [facility] Rx#:[id number] Flagyl Premix 500 MG/100 ML 500 100 / 100 100 / 100 100 / 100 mg In 100 ml @ 100 mls/hr IVPB Q8HR [facility] Rx#:[id number] Vancocin 750 MG In 0.9 % Sodium 250 / 250 Chloride 250 ML @ 250 mls/hr IVPB ONCE ONE Rx#:[id number] Oral 40 / 40 100 / 100 120 / 120 Output: Urine 0 / 0 Stool 30 / 30 Other: Meal Dinner Lunch Percent of Meal Consumed 20% 25% Stool Size Small Stool Consistency soft Stool Characteristics Foamy Stool Color Brown # Bowel Movements 1 - General physical appearance well developed, well nourished, no distress - Eyes PERRL, normal ocular movement - ENT dry mucosa, normocephalic - Neck Neck exam: trachea midline - Respiratory normal expansion, clear to auscultation - Cardiovascular Cardiovascular exam: Present: RRR - Abdomen Abdomen: Present: bowel sounds present, soft, non tender - Integumentary no growths - Neurologic normal sensation - Musculoskeletal normal posture - Psychiatric oriented to time, oriented to person, oriented to place, memory intact - Labs 04/19/18 04:40 04/19/18 04:40 Diabetes panel 04/19/18 Range/Units 04:40 Sodium 136 (136-145) mEq/L Potassium 3.4 L (3.5-5.1) mEq/L Chloride 106 (98-107) mEq/L Carbon Dioxide 23 (23-29) mEq/L BUN 31 H (8-23) mg/dL Creatinine 1.67 H (0.60-1.20) mg/dL Glucose 84 (70-105) mg/dL Calcium 8.1 L (8.6-10.3) mg/dL Calcium panel 04/19/18 Range/Units 04:40 Calcium 8.1 L (8.6-10.3) mg/dL Phosphorus 2.7 (2.7-4.5) mg/dL Pituitary panel 04/19/18 Range/Units 04:40 Sodium 136 (136-145) mEq/L Potassium 3.4 L (3.5-5.1) mEq/L Chloride 106 (98-107) mEq/L Carbon Dioxide 23 (23-29) mEq/L BUN 31 H (8-23) mg/dL Creatinine 1.67 H (0.60-1.20) mg/dL Glucose 84 (70-105) mg/dL Calcium 8.1 L (8.6-10.3) mg/dL Adrenal panel 04/19/18 Range/Units 04:40 Sodium 136 (136-145) mEq/L Potassium 3.4 L (3.5-5.1) mEq/L Chloride 106 (98-107) mEq/L Carbon Dioxide 23 (23-29) mEq/L BUN 31 H (8-23) mg/dL Creatinine 1.67 H (0.60-1.20) mg/dL Glucose 84 (70-105) mg/dL Calcium 8.1 L (8.6-10.3) mg/dL - Attending Attestation I examined this patient and my medical decision-making was reviewed with the Resident Physician. I agree with the documented findings, disposition and treatment plan as described except to the extent set forth below.
--- NOTE | 2018-04-19 14:49 | Internal Med Progress Note ---
Hospitalist Progress Note - Encounter Date of Encounter: 04/19/18 Time of Encounter: 15:37 - Subjective Interval History: Patient seen and examined at bedside. Patient had no overnight events. Continues to complain of mild abdominal pain. Patient denies any chest pain, shortness breath, nausea, vomiting. Patient had significant loose bowels yesterday however this is improved today. Patient remains afebrile. - Exam Vitals: Temp Pulse Resp BP Pulse Ox 98.7 F 85 17 116/59 99 04/19/18 10:30 04/19/18 10:30 04/19/18 10:30 04/19/18 10:30 04/19/18 10:30 Exam: Constitutional: No acute distress, Alert, anasarca is present Psych: AAO x 3 HEENT: NCAT, EOMI Neck: supple, no JVD Cardio: regular rate and rhythm, 2/6 systolic murmur that is chronic Resp: Decreased breath sounds in bases 2/2 habitus Abd: soft, mildly tender to palpation throughout but; no guarding rebound or rigidity, drain in place still draining purulent material. benign exam Extremities: Pain in the bilateral lower extremities there is 2-3+ pitting edema bilaterally unchanged, there is ecchymosis on the anterior shins. PICC in RUE with no erythema, eccymosis on left hand Neuro: Moves extremities symmetrically, notable chronic weakness in the lower cavities - Assessment and Plan (1) Abdominal pain Current Visit: Yes Status: Acute Assessment and Plan: Pt with infected abdominal hematoma/abcess; with hx of recent appendectomy 2 weeks prior to admission -repeat CT done 04/19 compared to 04/12 shows :Complex large abscess in the lower abdomen and pelvis. Unchanged appearance of the percutaneous drainage catheter. Only slight decrease in size of the large abscess compared to prior examination possibly secondary to multiloculation. Large amount of fluid remains in the abscess. -cultures from 04/10 from the the abdominal hematoma drain with 2 strains of Escherichia coli/staph epidermidis/enteroccocus faecium -Drain remains in place draining purulent material -General sx following; recommends 2nd abd drain into hematoma/abcess with repeat cx which will be done today by IR -Infectious disease following will continue IV Flagyl and cefepime; IV vanco -fungal cx ordered -Diarrhea improved and C. difficile is negative -previous hydronephrosis not appreciated on CT done 04/19 (2) Diarrhea Current Visit: Yes Status: Acute Assessment and Plan: Diarrhea improved -likely secondary to antibiotic -C. difficile is negative (3) Hypotension Current Visit: Yes Status: Acute Assessment and Plan: Patient's blood pressure continues to be stable and improved and is now normal -Lasix resumed yesterday -continue to monitor renal function -BP continues to be stable; will resume amiodarone tomorrow; start with 100mg daily (pt takes 200mg/day normally but has been held this admission) -may need Midrin in the future. (4) Anasarca Current Visit: Yes Status: Acute Assessment and Plan: Patient has been given several doses of IV Lasix with albumin and this has been effective with diuresis -Home dose of Lasix will be restarted 40 mg daily as she vomited her first dose yesterday; may need to be increased to reach threshold with her chronic kidney disease, -will monitor -Patient is a positive 0.99L -Previously reported I&Os on prior progress notes by myself are incorrect; those reported numbers were cumulative intake and output since admission. . -Pts weight up 2kg since admission (5) Acute thrombosis of cephalic vein Current Visit: Yes Status: Acute Assessment and Plan: Left upper extremity swelling was noted and ultrasound was performed which revealed acute superficial venous thrombosis of the left cephalic vein. Due to the patient's current intra-abdominal hematoma and superficial nature anticoagulation will not be started. We will monitor. -Continue to apply warm compress to the left upper extremity -No change in exam (6) Atrial fibrillation Current Visit: Yes Status: Chronic Assessment and Plan: on bb, amiodarone at home. Not on AC -Heart rate remains controlled patient will not tolerate anticoagulation therapy -Will resume medications as blood pressure allows; continue to hold for now -resume half of pts home dose amiodarone tomorrow; will start 100mg/day (7) Anemia Current Visit: Yes Status: Chronic Assessment and Plan: Likely due to anemia of chronic disease. -hg 8.8 today; stable -will monitor (8) Chronic kidney disease, stage IV (severe) Current Visit: Yes Status: Chronic Assessment and Plan: Stage IV chronic kidney disease; Baseline SCr appears to be anywhere between 1.7 -2.5 with wide variation -initally unable to exclude obstructive uropathy from pelvic fluid as a cause in view of the CT finding of increasing R hydronephrosis -L kidney is atrophic; repeat CT scan on 04/19 revealed no evidence of hydronephrosis previously seen -Urology has signed off the patient developed hydronephrosis again place ureteral stent -04/19/18 - serum creatinine 1.67 today up slightly from 1.61 yesterday continue Lasix; continue to renally dose medications and avoid nephrotoxins (9) UTI (urinary tract infection) Current Visit: Yes Status: Resolved Assessment and Plan: s/p completed Rocephin regimen (10) DVT prophylaxis Current Visit: Yes Status: Acute Assessment and Plan: SQ heparin - Time Spent with Patient Total time spent is greater than 50% in coordination of care (as documented) at patient's floor/unit and/or counseling patient: 25 - 35 minutes Plan of Care Discussed with: patient Internal Medicine: Result - Labs CBC & Chem 7: 04/19/18 04:40 04/19/18 04:40 Labs: Short CBC 04/19/18 Range/Units 04:40 WBC 10.2 (4.3-11.1) K/mcL Hgb 8.8 L (11.5-15.4) g/dL Hct 29.1 L (35.3-44.9) % Plt Count 189 (140-400) K/mcL Neutrophils # 8.4 (1.6-8.9) K/mcL BMP 04/19/18 04:40 Sodium 136 Potassium 3.4 L Chloride 106 Carbon Dioxide 23 BUN 31 H Creatinine 1.67 H Glucose 84 Calcium 8.1 L - ABG Interpretation ABG results: PT/INR, D-dimer PT 15.8 Seconds (9.4-12.1) H 03/30/18 06:58 - Impressions Impressions Abdomen/Pelvis CT 04/19/18 08:00 IMPRESSION: Complex large abscess in the lower abdomen and pelvis. Unchanged appearance of the percutaneous drainage catheter. Only slight decrease in size of the large abscess compared to prior examination possibly secondary to multiloculation. Large amount of fluid remains in the abscess. Findings suggesting anasarca with bilateral pleural effusions, mesenteric edema and diffuse subcutaneous edema. Chronic pleural thickening with calcified pleural plaques and stable small bilateral pleural effusions. This may be related to prior asbestos exposure. No evidence of hydronephrosis or obstructing renal stones. Severe left renal atrophy. D/ / 04/19/2018 08:52:40 Sidney Morrison MD / marcelo Interpreting Provider: Sidney Morrison MD - VTE Documentation of Mechanical Device: Intermittent pneumatic compression device Consult Discharge Plan - Plan Referrals: Lokesh Cooper MD [Primary Care Provider] - (1) Abdominal pain Qualifiers: Abdominal location: unspecified location Qualified Code(s): R10.9 - Unspecified abdominal pain (2) Diarrhea Qualifiers: Diarrhea type: unspecified type (3) Hypotension Qualifiers: Hypotension type: unspecified hypotension type Qualified Code(s): I95.9 - Hypotension, unspecified (5) Acute thrombosis of cephalic vein Qualifiers: Laterality: left Qualified Code(s): I82.612 - Acute embolism and thrombosis of superficial veins of left upper extremity (6) Atrial fibrillation Qualifiers: Atrial fibrillation type: chronic Qualified Code(s): I48.2 - Chronic atrial fibrillation (7) Anemia Qualifiers: Anemia type: other cause Other causes of anemia: chronic disease, other Qualified Code(s): D63.8 - Anemia in other chronic diseases classified elsewhere
--- NOTE | 2018-04-19 15:02 | Infectious Disease Progress No ---
Date of Encounter: 04/19/18 Time of Encounter: 14:58 - Assessment and Plan (1) Leukocytosis Current Visit: Yes Status: Acute Likely secondary to infected hematoma. Resolved. Continue to trend. Qualifiers: Leukocytosis type: unspecified Qualified Code(s): D72.829 - Elevated white blood cell count, unspecified (2) Infected hematoma following procedure Current Visit: Yes Status: Acute CT scan completed 03/29/2018 showed moderate volume of fluid in the pelvis and along the mesentery with subacute blood. Repeat CT of the abdomen and pelvis completed 04/01/18 showed a complex fluid collection within the pelvis, here unchanged in size and the density continued to decrease making the finding concerning for an organizing hematoma, although there was suggestion of possible capsule formation, and the possibility of an abscess should be considered. She also had some increasing right-sided hydronephrosis, but presumably from compression of the distal right ureteral compression. Status post CT-guided placement of abdominal abscess drainage catheter on by interventional radiology. No cultures were obtained at the time of catheter placement, but pathology was negative for malignancy. Culture obtained on 04/10/18 positive for and or coccus fascia, staph epi, and 2 strains of Escherichia coli. Repeat CT scan on 04/12/18 showed a large complex appearing fluid collection likely representing an abscess measuring approximately 17 x 11 x 8 cm in size and appears somewhat decreased in size when compared to the previous examination , however a large amount of fluid remained. Additional repeat CAT scan completed 04/19/18 showed complex large abscess in the lower abdomen and pelvis, unchanged in appearance and only slightly decreased in the size of the large abscess compared to prior examination, possibly secondary to multi loculation with a large amount of fluid remaining in the abscess. Gen. surgery continues to follow. They have consult would interventional radiology to place a new drain as it appears the old one seems to be too high. Please resend specimen for cultures. Clinically, the patient is improved. Her white blood cell count has normalized. Continue vancomycin IV. Pharmacy to dose. Goal trough approximately 15. Continue cefepime 2 g IV daily. Continue Flagyl 500 mg IV 3 times a day. Duration of treatment depends on the clinical picture. Monitor renal function and for drug toxicity and dose adjust antibiotics. (3) Diarrhea Current Visit: Yes Status: Acute Etiology unclear, but likely secondary to antibiotics. C. difficile was checked last week and was negative. Continue probiotics, consider increasing to twice a day. At this time, low index of suspicion for C. difficile given the patient's clinical picture. Qualifiers: Diarrhea type: unspecified type Qualified Code(s): R19.7 - Diarrhea, unspecified (4) Chronic kidney disease, stage IV (severe) Current Visit: Yes Status: Chronic Serum creatinine is improved, appears to be back at baseline. Continue to trend. Dose adjust antibiotics and avoid nephrotoxins as able. - Subjective Interval history: Patient seen and examined. No acute events noted overnight. Patient states overall she feels okay. She does report some abdominal pain, but denies nausea or vomiting. Denies fevers, chills, rigors. Denies chest pain, shortness of breath, or cough. Denies urinary complaints or appetite changes. Denies oral thrush or new skin lesions. Infect Dis PN-Objective Data - Labs CBC & Chem 7: 04/21/18 04:26 04/21/18 04:26 Labs: Laboratory Results - last 24 hr 04/18/18 04/19/18 04/19/18 19:15 04:40 04:40 WBC 10.2 RBC 3.12 L Hgb 8.8 L Hct 29.1 L MCV 93.3 MCH 28.2 MCHC 30.2 L RDW 19.5 H Plt Count 189 MPV 10.2 Immature Gran % 2.4 Seg Neutrophils % 82.8 Lymphocytes % 8.3 Monocytes % 4.6 Eosinophils % 1.8 Basophils % 0.1 Neutrophils # 8.4 Lymphocytes # 0.8 Monocytes # 0.5 Eosinophils # 0.2 Basophils # 0.0 Sodium 136 Potassium 3.4 L Chloride 106 Carbon Dioxide 23 BUN 31 H Creatinine 1.67 H Est GFR ( Amer) 36 L Est GFR (Non-Af Amer) 30 L BUN/Creatinine Ratio 19 Glucose 84 Calculated Osmolality 288 Calcium 8.1 L Phosphorus 2.7 Magnesium 2.0 Random Vancomycin 17 04/19/18 04:40 WBC RBC Hgb Hct MCV MCH MCHC RDW Plt Count MPV Immature Gran % Seg Neutrophils % Lymphocytes % Monocytes % Eosinophils % Basophils % Neutrophils # Lymphocytes # Monocytes # Eosinophils # Basophils # Sodium Potassium Chloride Carbon Dioxide BUN Creatinine Est GFR ( Amer) Est GFR (Non-Af Amer) BUN/Creatinine Ratio Glucose Calculated Osmolality Calcium Phosphorus Magnesium Random Vancomycin 22 Cultures: Cultures 04/10/18 20:55 Body Fluid Culture - Final Peritoneal Fluid Escherichia coli#2 Escherichia coli Staphylococcus epidermidis Enterococcus faecium Serology 04/14/18 04/05/18 Range/Units 11:25 13:15 Urine Color Yellow (Yellow) Urine Clarity Clear (Clear) Urine pH 5.5 (5.0-8.0) pH Units Ur Specific [place] 1.020 (1.010-1.025) Urine Protein 100 H (Neg-Trace) mg/dL Urine Glucose (UA) Normal (Normal) mg/dL Urine Ketones Negative (Negative) mg/dL Urine Blood Moderate H (Negative) Urine Nitrite Negative (Negative) Urine Bilirubin Small H (Negative) Urine Urobilinogen Normal (Normal) mg/dL Ur Leukocyte Esterase Small H (Negative) Urine Microscopic RBC 5-15 H (0-3) per hpf Urine Microscopic WBC 50-100 H (0-3) per hpf Ur Squamous Epith Cells Many H (None-Few) per lpf Urine Bacteria None Seen (None-Few) per hpf Urine Yeast Moderate H (None Seen) per hpf Ur Culture Indicated? NO. A (NO) Stl C. diff Tox B Gene Negative (Negative) - Impressions Impressions Abdomen/Pelvis CT 04/19/18 08:00 IMPRESSION: Complex large abscess in the lower abdomen and pelvis. Unchanged appearance of the percutaneous drainage catheter. Only slight decrease in size of the large abscess compared to prior examination possibly secondary to multiloculation. Large amount of fluid remains in the abscess. Findings suggesting anasarca with bilateral pleural effusions, mesenteric edema and diffuse subcutaneous edema. Chronic pleural thickening with calcified pleural plaques and stable small bilateral pleural effusions. This may be related to prior asbestos exposure. No evidence of hydronephrosis or obstructing renal stones. Severe left renal atrophy. D/ / 04/19/2018 08:52:40 Sidney Morrison MD / marcelo Interpreting Provider: Sidney Morrison MD Exam - Constitutional Vitals: Temp Pulse Resp BP Pulse Ox 98.7 F 85 17 116/59 99 04/19/18 10:30 04/19/18 10:30 04/19/18 10:30 04/19/18 10:30 04/19/18 10:30 General appearance: cooperative, no acute distress, obese - Head Head exam: Present: atraumatic, normal inspection, normocephalic - Eye Eye exam: Present: EOMI, normal appearance, PERRL Pupils: Present: normal accommodation - ENT ENT exam: Present: mucous membranes moist - Neck Neck exam: Present: normal inspection - Respiratory Respiratory exam: Present: CTAB. Absent: rales, respiratory distress, rhonchi, wheezes - Cardiovascular Cardiovascular exam: Present: RRR, +S1, +S2 - GI/Abdominal GI/Abdominal exam: Present: distended (Obese), normal bowel sounds, soft, tenderness (Generalized) Additional comments: Drain noted to the left lower quadrant with seropurulent drainage noted. Parks catheter noted draining clear yellow urine. - Extremities Exam Extremities exam: Present: normal inspection. Absent: joint swelling, pedal edema, tenderness - Neurological Exam Neurological exam: Present: alert, oriented X3, no focal deficits - Psychiatric Psychiatric exam: Present: normal affect, normal mood - Skin Skin exam: Present: dry, intact, normal color, warm - VTE Documentation of Mechanical Device: Intermittent pneumatic compression device Consult Discharge Plan - Plan Referrals: Lokesh Cooper MD [Primary Care Provider] - - Attending Attestation I examined this patient and my medical decision-making was reviewed with the Resident Physician. I agree with the documented findings, disposition and treatment plan as described except to the extent set forth below.
--- NOTE | 2018-04-19 15:32 | IR Procedure Note ---
Date of procedure: 04/19/18 Consent Obtained: Verbal consent, Written consent Timeout: Correct patient and procedure verified, Correct site verified, Time out performed, Skin prep completed Local anesthetic: Lidocaine 1% Indications: Pelvic abscess Procedure Performed: CT guided drain placement Was there an office services assistant present: No Site/Technique: 14 Fr pelvic abscess drain placed Results/Findings: CT guided placement of midline pelvic abscess drain Estimated blood loss (cc): 2 Complications: None; Tolerated procedure well Post Procedure Treatment Plan: Routine flushes and drain to KARAN suction Specimen: 30 cc purulent fluid
--- NOTE | 2018-04-19 15:54 | Event Note ---
Date of Encounter: 04/19/18 Time of Encounter: 15:52 IR placed new drain, may resume previous diet
[2018-04-19] MEDS: Acetaminophen 325 MG TABLET PO PRN (21:20)
[2018-04-20] MEDS: MetroNIDAZOLE 500 MG/100 ML 500 MG/100 ML BAG IVPB SCH ×3 (00:20→15:39)
[2018-04-20 03:27] LABS: Basophils % 0.2 %; Eosinophils # 0.2 K/mcL (0.0-0.6); Hematocrit 29.7 % (35.3-44.9); Hemoglobin 9.1 g/dL (11.5-15.4); Immature Granulocytes % 2.3 % (0-4); Lymphocytes # 0.9 K/mcL (0.6-4.6); Lymphocytes % 8.5 %; Mean Corpuscular HGB Conc 30.6 g/dL (31.6-35.5); Mean Corpuscular Hemoglobin 28.4 pg (28.0-33.3); Mean Corpuscular Volume 92.8 fL (83.0-100.0); Mean Platelet Volume 10.1 fL (9.4-12.4); Monocytes # 0.5 K/mcL (0.0-1.3); Monocytes % 4.9 %; Neutrophils # 8.3 K/mcL (1.6-8.9); Platelet Count 185 K/mcL (140-400); Red Cell Distribution Width 19.6 % (11.5-14.5); Segmented Neutrophils % 82.1 %
[2018-04-20 03:44] LABS: Calcium 8.1 mg/dL (8.6-10.3); Magnesium 1.9 mg/dL (1.6-2.6); Phosphorous 2.8 mg/dL (2.7-4.5); Potassium 3.3 mEq/L (3.5-5.1)
[2018-04-20] MEDS: Acetaminophen 325 MG TABLET PO PRN ×2 (03:48→14:06)
[2018-04-20] MEDS: *HR* Heparin 5,000 UNIT/ML VIAL SQ SCH (05:58)
[2018-04-20] MEDS: Budesonide/Formoterol 160/4.5 MDI IH SCH ×2 (07:40→20:17)
--- NOTE | 2018-04-20 08:14 | General Surgery Progress Note ---
Date of Encounter: 04/20/18 Time of Encounter: 08:12 - Assessment and Plan (1) Intra-abdominal hematoma Current Visit: Yes Status: Acute second drain placed yesterday, is bloody purulent continue drains continue antibiotics prn pain control, added po morphine low dose OOB to chair for all meals start scheduled miralax cont diet she continues to bleed from poke sites from IR, stop heparin sq, is on asa, start epcds right leg only due to tenderness LLE check PT/INR Qualifiers: Encounter type: subsequent encounter Qualified Code(s): S36.92XD - Contusion of unspecified intra-abdominal organ, subsequent encounter Subjective Narrative: patient had IR drain placed yesterday, complained of abdominal pain last night and took tylenol but she states was not enough pain control no nausea passing flatus Objective Vital Signs - Last 8 Hours Temp Pulse Resp BP Pulse Ox 04/20/18 07:39 18 99 04/20/18 03:42 97.8 F 73 15 96/59 100 Intake and Output 04/19/18 04/20/18 04/20/18 23:59 07:59 15:59 Intake Total 240 / 240 200 / 200 Output Total 520 / 520 170 / 170 Balance -280 / -280 30 / 30 Intake: IV Fluids 100 / 100 100 / 100 Flagyl Premix 500 MG/100 ML 500 100 / 100 100 / 100 mg In 100 ml @ 100 mls/hr IVPB Q8HR [facility] Rx#:[id number] Oral 140 / 140 100 / 100 Output: Catheter 400 / 400 150 / 150 Wound Drainage 120 / 120 20 / 20 Left paracentesis drain 100 / 100 20 / 20 Medial Abdomen 20 / 20 0 / 0 Other: Meal Dinner Percent of Meal Consumed 50% Weight 105.7 kg Patient Weight 04/20/18 23:59 Weight 105.7 kg - General physical appearance well developed, well nourished, no distress, obese - ENT normal mucosa, normocephalic - Neck Neck exam: trachea midline - Respiratory normal expansion - Cardiovascular Cardiovascular exam: Present: RRR - Abdomen Abdomen: Present: bowel sounds present, soft, tender (minimal discomfort, diffuesly) - Integumentary no growths - Neurologic CN 2-12 grossly intact - Musculoskeletal normal posture - Psychiatric oriented to time, oriented to person, oriented to place, speech is normal, memory intact - Labs 04/20/18 03:10 04/20/18 03:10 Diabetes panel 04/20/18 Range/Units 03:10 Sodium 135 L (136-145) mEq/L Potassium 3.3 L (3.5-5.1) mEq/L Chloride 105 (98-107) mEq/L Carbon Dioxide 22 L (23-29) mEq/L BUN 31 H (8-23) mg/dL Creatinine 1.81 H (0.60-1.20) mg/dL Glucose 102 (70-105) mg/dL Calcium 8.1 L (8.6-10.3) mg/dL Calcium panel 04/20/18 Range/Units 03:10 Calcium 8.1 L (8.6-10.3) mg/dL Phosphorus 2.8 (2.7-4.5) mg/dL Pituitary panel 04/20/18 Range/Units 03:10 Sodium 135 L (136-145) mEq/L Potassium 3.3 L (3.5-5.1) mEq/L Chloride 105 (98-107) mEq/L Carbon Dioxide 22 L (23-29) mEq/L BUN 31 H (8-23) mg/dL Creatinine 1.81 H (0.60-1.20) mg/dL Glucose 102 (70-105) mg/dL Calcium 8.1 L (8.6-10.3) mg/dL Adrenal panel 04/20/18 Range/Units 03:10 Sodium 135 L (136-145) mEq/L Potassium 3.3 L (3.5-5.1) mEq/L Chloride 105 (98-107) mEq/L Carbon Dioxide 22 L (23-29) mEq/L BUN 31 H (8-23) mg/dL Creatinine 1.81 H (0.60-1.20) mg/dL Glucose 102 (70-105) mg/dL Calcium 8.1 L (8.6-10.3) mg/dL - VTE Documentation of Mechanical Device: Intermittent pneumatic compression device Consult Discharge Plan - Plan Referrals: Lokesh Cooper MD [Primary Care Provider] -
[2018-04-20] MEDS: Nystatin POWDER 30 GM BOTTLE TP SCH ×3 (10:00→21:16)
[2018-04-20 10:03] LABS: INR 1.3; Prothrombin Time 14.8 Seconds (9.4-12.1)
[2018-04-20] MEDS: Furosemide 40 MG TABLET PO SCH (10:51)
[2018-04-20] MEDS: *HR* Amiodarone 200 MG TABLET PO SCH (10:51)
[2018-04-20] MEDS: Aspirin Enteric Coated 81 MG Tablet PO SCH (10:51)
[2018-04-20] MEDS: Lactobacillus 1 EACH CAP.SPRINK PO SCH ×2 (10:51→21:00)
[2018-04-20] MEDS: Loratadine 10 MG TABLET PO SCH (10:52)
[2018-04-20] MEDS: Cefepime HCl 2,000 MG in 0.9 % Sodium Chloride Mini Bag 100 ML IVPB SCH (10:53)
[2018-04-20] MEDS: Fluticasone Propionate Nasal 50 MCG/SPRAY BOTTLE NS SCH (11:21)
--- NOTE | 2018-04-20 14:19 | Infectious Disease Progress No ---
Date of Encounter: 04/20/18 Time of Encounter: 12:35 - Assessment and Plan (1) Leukocytosis Current Visit: Yes Status: Acute Likely secondary to infected hematoma. Resolved. Continue to trend. Qualifiers: Leukocytosis type: unspecified Qualified Code(s): D72.829 - Elevated white blood cell count, unspecified (2) Infected hematoma following procedure Current Visit: Yes Status: Acute CT scan completed 03/29/2018 showed moderate volume of fluid in the pelvis and along the mesentery with subacute blood. Repeat CT of the abdomen and pelvis completed 04/01/18 showed a complex fluid collection within the pelvis, here unchanged in size and the density continued to decrease making the finding concerning for an organizing hematoma, although there was suggestion of possible capsule formation, and the possibility of an abscess should be considered. She also had some increasing right-sided hydronephrosis, but presumably from compression of the distal right ureteral compression. Status post CT-guided placement of abdominal abscess drainage catheter on by interventional radiology. No cultures were obtained at the time of catheter placement, but pathology was negative for malignancy. Culture obtained on 04/10/18 positive for Enterococcus faecium, staph epi, and 2 strains of Escherichia coli. Repeat CT scan on 04/12/18 showed a large complex appearing fluid collection likely representing an abscess measuring approximately 17 x 11 x 8 cm in size and appears somewhat decreased in size when compared to the previous examination , however a large amount of fluid remained. Additional repeat CAT scan completed 04/19/18 showed complex large abscess in the lower abdomen and pelvis, unchanged in appearance and only slightly decreased in the size of the large abscess compared to prior examination, possibly secondary to multi loculation with a large amount of fluid remaining in the abscess. Gen. surgery continues to follow. Status post new drain placed in the lower LLQ due to previous drain being too high. 30ml pus removed and sent for culture this morning. Clinically, the patient is improved. Her white blood cell count has normalized. Continue vancomycin IV. Pharmacy to dose. Goal trough approximately 15. Continue cefepime 2 g IV daily. Continue Flagyl 500 mg IV 3 times a day. Duration of treatment depends on the clinical picture. Monitor renal function and for drug toxicity and dose adjust antibiotics. (3) Diarrhea Current Visit: Yes Status: Acute Etiology unclear, but likely secondary to antibiotics. C. difficile was checked last week and was negative. Continue probiotics, consider increasing to twice a day. At this time, low index of suspicion for C. difficile given the patient's clinical picture. Qualifiers: Diarrhea type: unspecified type Qualified Code(s): R19.7 - Diarrhea, unspecified (4) Chronic kidney disease, stage IV (severe) Current Visit: Yes Status: Chronic Serum creatinine is improved, appears to be back at baseline. Continue to trend. Dose adjust antibiotics and avoid nephrotoxins as able. - Subjective Interval history: Patient seen and examined. No acute events noted overnight. Patient states overall she feels okay. She does report some abdominal pain, but denies nausea or vomiting. Denies fevers, chills, rigors. Denies chest pain, shortness of breath, or cough. Denies urinary complaints or appetite changes. Denies oral thrush or new skin lesions. Infect Dis PN-Objective Data - Labs CBC & Chem 7: 04/20/18 03:10 04/20/18 03:10 Labs: Laboratory Results - last 24 hr 04/20/18 04/20/18 04/20/18 03:10 03:10 09:45 WBC 10.1 RBC 3.20 L Hgb 9.1 L Hct 29.7 L MCV 92.8 MCH 28.4 MCHC 30.6 L RDW 19.6 H Plt Count 185 MPV 10.1 Immature Gran % 2.3 Seg Neutrophils % 82.1 Lymphocytes % 8.5 Monocytes % 4.9 Eosinophils % 2.0 Basophils % 0.2 Neutrophils # 8.3 Lymphocytes # 0.9 Monocytes # 0.5 Eosinophils # 0.2 Basophils # 0.0 PT 14.8 H INR 1.3 Sodium 135 L Potassium 3.3 L Chloride 105 Carbon Dioxide 22 L BUN 31 H Creatinine 1.81 H Est GFR ( Amer) 33 L Est GFR (Non-Af Amer) 27 L BUN/Creatinine Ratio 17 Glucose 102 Calculated Osmolality 287 Calcium 8.1 L Phosphorus 2.8 Magnesium 1.9 Cultures: Cultures 04/19/18 15:21 Wound Culture - Preliminary Abdomen Gram Negative Sammy 04/10/18 20:55 Body Fluid Culture - Final Peritoneal Fluid Escherichia coli#2 Escherichia coli Staphylococcus epidermidis Enterococcus faecium Serology 04/14/18 04/05/18 Range/Units 11:25 13:15 Urine Color Yellow (Yellow) Urine Clarity Clear (Clear) Urine pH 5.5 (5.0-8.0) pH Units Ur Specific [place] 1.020 (1.010-1.025) Urine Protein 100 H (Neg-Trace) mg/dL Urine Glucose (UA) Normal (Normal) mg/dL Urine Ketones Negative (Negative) mg/dL Urine Blood Moderate H (Negative) Urine Nitrite Negative (Negative) Urine Bilirubin Small H (Negative) Urine Urobilinogen Normal (Normal) mg/dL Ur Leukocyte Esterase Small H (Negative) Urine Microscopic RBC 5-15 H (0-3) per hpf Urine Microscopic WBC 50-100 H (0-3) per hpf Ur Squamous Epith Cells Many H (None-Few) per lpf Urine Bacteria None Seen (None-Few) per hpf Urine Yeast Moderate H (None Seen) per hpf Ur Culture Indicated? NO. A (NO) Stl C. diff Tox B Gene Negative (Negative) - Impressions Impressions Needle Aspiration CT 04/19/18 15:35 IMPRESSION: Successful CT guided placement of a 14 Irish pelvic abscess drain. No immediate complications. Cultures are pending. D/ / Alfredito Ruiz MD / Alfredito Ruiz MD Interpreting Provider: Alfredito Ruiz MD Exam - Constitutional Vitals: Temp Pulse Resp BP Pulse Ox 96.9 F L 76 16 113/68 100 04/20/18 11:25 04/20/18 11:25 04/20/18 11:25 04/20/18 11:25 04/20/18 11:25 General appearance: cooperative, no acute distress, obese - Head Head exam: Present: atraumatic, normal inspection, normocephalic - Eye Eye exam: Present: conjuntiva pink - ENT ENT exam: Present: mucous membranes moist - Neck Neck exam: Present: normal inspection - Respiratory Respiratory exam: Present: CTAB. Absent: rales, respiratory distress, rhonchi, wheezes - Cardiovascular Cardiovascular exam: Present: RRR, +S1, +S2 - GI/Abdominal GI/Abdominal exam: Present: distended (obese), normal bowel sounds, soft. Absent: tenderness Additional comments: Parks catheter noted to be draining clear yellow urine. KARAN drain noted to the LLQ x 2 with purulent drainage noted. - Extremities Exam Extremities exam: Present: pedal edema (1+ BLE). Absent: joint swelling, tenderness - Neurological Exam Neurological exam: Present: alert, oriented X3, no focal deficits - Psychiatric Psychiatric exam: Present: normal affect, normal mood - Skin Skin exam: Present: dry, intact, normal color, warm - VTE Documentation of Mechanical Device: Intermittent pneumatic compression device Consult Discharge Plan - Plan Referrals: Lokesh Cooper MD [Primary Care Provider] -
--- NOTE | 2018-04-20 15:04 | Internal Med Progress Note ---
Hospitalist Progress Note - Encounter Date of Encounter: 04/20/18 Time of Encounter: 10:00 - Subjective Interval History: patient was seen and examined at bedside. has had no over night events. remains afebrile. she is S/P IR guided 14Fr pelvic abscess drain on 04/19/18 placed in the lower LLQ due to previous drain being too high. 30ml pus removed and sent for culture she denies any pain at the incision currently, reports that the diarrhea she had a few days ago has improved. denies nausea or vomiting is hopefull that with new drain placement she could be closer to discharge. denies fever, chills, chest pain, palpitations, SOB. - Exam Vitals: Temp Pulse Resp BP Pulse Ox 96.9 F L 76 16 113/68 100 04/20/18 11:25 04/20/18 11:25 04/20/18 11:25 04/20/18 11:25 04/20/18 11:25 Exam: Constitutional: No acute distress, Alert, Anasarca, obese HEENT: NCAT, legally blind, poor dentition, external ears normal. Neck: supple, no JVD Cardio: regular rate and rhythm, 2/6 systolic murmur Resp: Decreased breath sounds in bases 2/2 habitus Abd: soft, obese, BS+ve, new drain placed above umblicus dressing has minimal blood drainage. KARAN drain has yellow fluid about 30 cc Extremities: 2 anasarca of all extremities, there is ecchymosis on the anterior shins. PICC in RUE with no erythema, eccymosis on left hand Neuro: Moves extremities symmetrically, notable chronic weakness in the lower extremities - at baseline Psych: AAO x 3, affect is appropriate - Assessment and Plan (1) Abdominal pain Current Visit: Yes Status: Acute Assessment and Plan: Pt with infected abdominal hematoma/abcess; with hx of recent appendectomy 2 weeks prior to admission -repeat CT done 04/19 compared to 04/12 shows :Complex large abscess in the lower abdomen and pelvis. Unchanged appearance of the percutaneous drainage catheter. Only slight decrease in size of the large abscess compared to prior examination possibly secondary to multiloculation. Large amount of fluid remains in the abscess. -cultures from 04/10 from the the abdominal hematoma drain with 2 strains of Escherichia coli/staph epidermidis/enteroccocus faecium -General sx following -S/P new drain placement by IR on 04/19/18- cultures were sent will follow -Infectious disease following will continue IV Flagyl and cefepime; IV vanco -fungal cx ordered -Diarrhea improved and C. difficile is negative -previous hydronephrosis not appreciated on CT done 04/19 - will continue to follow renal function and adjust Abx - leukocytosis- resolved / clinically doing better. (2) Atrial fibrillation Current Visit: Yes Status: Chronic Assessment and Plan: currently on Amidarone, BB and ASA not on AC Heart rate remains controlled patient will not tolerate anticoagulation therapy vitals as per protocol (3) Anemia Current Visit: Yes Status: Chronic Assessment and Plan: will continue to monitor patients H/H with daily CBC H/H stable at 9.1 (4) Hypotension Current Visit: Yes Status: Resolved Assessment and Plan: Patient's blood pressure continues to be stable and improved and is now normal continue to monitor renal function BP continues to be stable; will resume amiodarone tomorrow; start with 100mg daily (pt takes 200mg/day normally but has been held this admission) -may need Midrin in the future. (5) Chronic kidney disease, stage IV (severe) Current Visit: Yes Status: Chronic Assessment and Plan: Stage IV chronic kidney disease; Baseline SCr appears to be anywhere between 1.7 -2.5 with wide variation as per previous documentation L kidney is atrophic; repeat CT scan on 04/19 revealed no evidence of hydronephrosis previously seen Urology has signed off the patient developed hydronephrosis again place ureteral stent 04/19/18 - serum creatinine increased to 1.81 will continue lasix - will follow BMP in AM and consider stopping it if renal function worsens. renally dose medications and avoid nephrotoxins (6) Anasarca Current Visit: Yes Status: Acute Assessment and Plan: Patient has been given several doses of IV Lasix with albumin and this has been effective with diuresis Home dose of Lasix was started on 04/17/18- now has mild increase in her creatinine 1.67 to 1.81. will continue lasix and follow BMP in the AM as she has anasarca. if creatinine trends up will consider discontinue lasix. nutrition following will follow recommendations . (7) Acute thrombosis of cephalic vein Current Visit: Yes Status: Acute Assessment and Plan: Left upper extremity swelling was noted and ultrasound was performed which revealed acute superficial venous thrombosis of the left cephalic vein. Due to the patient's current intra-abdominal hematoma and superficial nature anticoagulation will not be started. We will monitor. Continue to apply warm compress to the left upper extremity No change in exam (8) Diarrhea Current Visit: Yes Status: Acute Assessment and Plan: Diarrhea improved, likely secondary to antibiotic C. difficile was sent last week and negative probiotics increased to twice per day as per ID recs (9) Hypokalemia Current Visit: Yes Status: Acute Assessment and Plan: replaced will follow AM labs (10) UTI (urinary tract infection) Current Visit: Yes Status: Resolved Assessment and Plan: s/p completed Rocephin regimen (11) DVT prophylaxis Current Visit: Yes Status: Acute Assessment and Plan: SQ heparinheld due to minimal blood stained on the new abdominal drain dressing - on SCDs for now will consider restaring SC heparin in the AM DVT Prophylaxis: SQ heparinheld due to minimal blood stained on the new abdominal drain dressing - on SCDs for now will consider restaring SC heparin in the AM - Time Spent with Patient Total time spent is greater than 50% in coordination of care (as documented) at patient's floor/unit and/or counseling patient: Greater than 35 minutes (60) Plan of Care Discussed with: nurse Internal Medicine: Result - Labs CBC & Chem 7: 04/20/18 03:10 04/20/18 03:10 Labs: Short CBC 04/20/18 Range/Units 03:10 WBC 10.1 (4.3-11.1) K/mcL Hgb 9.1 L (11.5-15.4) g/dL Hct 29.7 L (35.3-44.9) % Plt Count 185 (140-400) K/mcL Neutrophils # 8.3 (1.6-8.9) K/mcL BMP 04/20/18 03:10 Sodium 135 L Potassium 3.3 L Chloride 105 Carbon Dioxide 22 L BUN 31 H Creatinine 1.81 H Glucose 102 Calcium 8.1 L - ABG Interpretation ABG results: PT/INR, D-dimer PT 14.8 Seconds (9.4-12.1) H 04/20/18 09:45 - Impressions Impressions Needle Aspiration CT 04/19/18 15:35 IMPRESSION: Successful CT guided placement of a 14 Yi pelvic abscess drain. No immediate complications. Cultures are pending. D/ / Alfredito Ruiz MD / Alfredito Ruiz MD Interpreting Provider: Alfredito Ruiz MD - VTE Documentation of Mechanical Device: Intermittent pneumatic compression device Consult Discharge Plan - Plan Referrals: Lokesh Cooper MD [Primary Care Provider] - (1) Abdominal pain Qualifiers: Abdominal location: unspecified location Qualified Code(s): R10.9 - Unspecified abdominal pain (2) Atrial fibrillation Qualifiers: Atrial fibrillation type: chronic Qualified Code(s): I48.2 - Chronic atrial fibrillation (3) Anemia Qualifiers: Anemia type: other cause Other causes of anemia: chronic disease, other Qualified Code(s): D63.8 - Anemia in other chronic diseases classified elsewhere (4) Hypotension Qualifiers: Hypotension type: unspecified hypotension type Qualified Code(s): I95.9 - Hypotension, unspecified (7) Acute thrombosis of cephalic vein Qualifiers: Laterality: left Qualified Code(s): I82.612 - Acute embolism and thrombosis of superficial veins of left upper extremity (8) Diarrhea Qualifiers: Diarrhea type: unspecified type Qualified Code(s): R19.7 - Diarrhea, unspecified
[2018-04-20] MEDS: *HR* Morphine Soln 10 MG/5 ML UDC PO PRN (21:01)
[2018-04-21] MEDS: MetroNIDAZOLE 500 MG/100 ML 500 MG/100 ML BAG IVPB SCH ×3 (00:01→15:37)
[2018-04-21 04:43] LABS: Hematocrit 26.9 % (35.3-44.9); Hemoglobin 8.3 g/dL (11.5-15.4); Mean Corpuscular HGB Conc 30.9 g/dL (31.6-35.5); Mean Corpuscular Hemoglobin 28.5 pg (28.0-33.3); Mean Corpuscular Volume 92.4 fL (83.0-100.0); Mean Platelet Volume 10.1 fL (9.4-12.4); Platelet Count 157 K/mcL (140-400); Red Blood Count 2.91 M/mcL (3.82-4.97); Red Cell Distribution Width 19.5 % (11.5-14.5)
[2018-04-21 05:00] LABS: Calcium 7.8 mg/dL (8.6-10.3); Potassium 3.4 mEq/L (3.5-5.1)
[2018-04-21] MEDS: Budesonide/Formoterol 160/4.5 MDI IH SCH ×2 (08:07→20:01)
[2018-04-21] MEDS: Aspirin Enteric Coated 81 MG Tablet PO SCH (08:21)
[2018-04-21] MEDS: Lactobacillus 1 EACH CAP.SPRINK PO SCH ×2 (08:21→20:47)
[2018-04-21] MEDS: Furosemide 40 MG TABLET PO SCH (08:21)
[2018-04-21] MEDS: Cefepime HCl 2,000 MG in 0.9 % Sodium Chloride Mini Bag 100 ML IVPB SCH (08:23)
[2018-04-21] MEDS: *HR* Amiodarone 200 MG TABLET PO SCH (08:23)
[2018-04-21] MEDS: Nystatin POWDER 30 GM BOTTLE TP SCH ×3 (12:37→20:48)
[2018-04-21] MEDS: Fluticasone Propionate Nasal 50 MCG/SPRAY BOTTLE NS SCH (12:37)
--- NOTE | 2018-04-21 13:51 | Infectious Disease Progress No ---
Date of Encounter: 04/21/18 Time of Encounter: 12:40 - Assessment and Plan (1) Leukocytosis Current Visit: Yes Status: Acute Likely secondary to infected hematoma. Resolved. Continue to trend. Qualifiers: Leukocytosis type: unspecified Qualified Code(s): D72.829 - Elevated white blood cell count, unspecified (2) Infected hematoma following procedure Current Visit: Yes Status: Acute Causative organism: S. epi, E. coli x 2, and Enterococcus faecium. Additional culture obtained with new drain placement grew E. coli. CT scan completed 03/29/2018 showed moderate volume of fluid in the pelvis and along the mesentery with subacute blood. Repeat CT of the abdomen and pelvis completed 04/01/18 showed a complex fluid collection within the pelvis, here unchanged in size and the density continued to decrease making the finding concerning for an organizing hematoma, although there was suggestion of possible capsule formation, and the possibility of an abscess should be considered. She also had some increasing right-sided hydronephrosis, but presumably from compression of the distal right ureteral compression. Status post CT-guided placement of abdominal abscess drainage catheter on by interventional radiology. No cultures were obtained at the time of catheter placement, but pathology was negative for malignancy. Culture obtained on 04/10/18 positive for and or coccus fascia, staph epi, and 2 strains of Escherichia coli. Repeat CT scan on 04/12/18 showed a large complex appearing fluid collection likely representing an abscess measuring approximately 17 x 11 x 8 cm in size and appears somewhat decreased in size when compared to the previous examination , however a large amount of fluid remained. Additional repeat CAT scan completed 04/19/18 showed complex large abscess in the lower abdomen and pelvis, unchanged in appearance and only slightly decreased in the size of the large abscess compared to prior examination, possibly secondary to multi loculation with a large amount of fluid remaining in the abscess. Gen. surgery continues to follow. New drain placed in the abscess 04/19/18. Clinically, the patient is improved. Her white blood cell count has normalized. Continue vancomycin IV. Pharmacy to dose. Goal trough approximately 15. Continue cefepime 2 g IV daily. Continue Flagyl 500 mg IV 3 times a day. Duration of treatment depends on the clinical picture. Monitor renal function and for drug toxicity and dose adjust antibiotics. (3) Diarrhea Current Visit: Yes Status: Resolved Etiology unclear, but likely secondary to antibiotics. C. difficile was checked last week and was negative. Continue probiotics, consider increasing to twice a day. Resolved. Qualifiers: Diarrhea type: unspecified type Qualified Code(s): R19.7 - Diarrhea, unspecified (4) Chronic kidney disease, stage IV (severe) Current Visit: Yes Status: Chronic Serum creatinine is improved, appears to be back at baseline. Continue to trend. Dose adjust antibiotics and avoid nephrotoxins as able. - Subjective Interval history: Patient seen and examined. No acute events noted overnight. Patient states overall she feels okay. She does report some abdominal pain at the drain sites , but denies nausea or vomiting. Denies fevers, chills, rigors. Denies chest pain, shortness of breath, or cough. Denies urinary complaints or appetite changes. Denies oral thrush or new skin lesions. Infect Dis PN-Objective Data - Labs CBC & Chem 7: 04/22/18 03:48 04/22/18 03:48 Labs: Laboratory Results - last 24 hr 04/20/18 04/21/18 04/21/18 20:00 04:26 04:26 WBC 8.1 RBC 2.91 L Hgb 8.3 L Hct 26.9 L MCV 92.4 MCH 28.5 MCHC 30.9 L RDW 19.5 H Plt Count 157 MPV 10.1 Sodium 133 L Potassium 3.4 L Chloride 105 Carbon Dioxide 22 L BUN 30 H Creatinine 1.78 H Est GFR ( Amer) 34 L Est GFR (Non-Af Amer) 28 L BUN/Creatinine Ratio 17 Glucose 83 Calculated Osmolality 281 Calcium 7.8 L Random Vancomycin 20 04/21/18 04/21/18 04:26 07:27 WBC RBC Hgb Hct MCV MCH MCHC RDW Plt Count MPV Sodium Potassium Chloride Carbon Dioxide BUN Creatinine Est GFR ( Amer) Est GFR (Non-Af Amer) BUN/Creatinine Ratio Glucose Calculated Osmolality Calcium Random Vancomycin 20 21 Cultures: Cultures 04/19/18 15:21 Wound Culture - Final Abdomen Escherichia coli 04/10/18 20:55 Body Fluid Culture - Final Peritoneal Fluid Escherichia coli#2 Escherichia coli Staphylococcus epidermidis Enterococcus faecium Serology 04/14/18 04/05/18 Range/Units 11:25 13:15 Urine Color Yellow (Yellow) Urine Clarity Clear (Clear) Urine pH 5.5 (5.0-8.0) pH Units Ur Specific [place] 1.020 (1.010-1.025) Urine Protein 100 H (Neg-Trace) mg/dL Urine Glucose (UA) Normal (Normal) mg/dL Urine Ketones Negative (Negative) mg/dL Urine Blood Moderate H (Negative) Urine Nitrite Negative (Negative) Urine Bilirubin Small H (Negative) Urine Urobilinogen Normal (Normal) mg/dL Ur Leukocyte Esterase Small H (Negative) Urine Microscopic RBC 5-15 H (0-3) per hpf Urine Microscopic WBC 50-100 H (0-3) per hpf Ur Squamous Epith Cells Many H (None-Few) per lpf Urine Bacteria None Seen (None-Few) per hpf Urine Yeast Moderate H (None Seen) per hpf Ur Culture Indicated? NO. A (NO) Stl C. diff Tox B Gene Negative (Negative) Exam - Constitutional Vitals: Temp Pulse Resp BP Pulse Ox 97.6 F 74 15 90/63 97 04/21/18 11:07 04/21/18 11:07 04/21/18 11:07 04/21/18 11:07 04/21/18 11:07 General appearance: cooperative, morbidly obese, no acute distress - Head Head exam: Present: atraumatic, normal inspection, normocephalic - ENT ENT exam: Present: mucous membranes moist - Neck Neck exam: Present: normal inspection - Respiratory Respiratory exam: Present: CTAB. Absent: rales, respiratory distress, rhonchi, wheezes - Cardiovascular Cardiovascular exam: Present: RRR, +S1, +S2 - GI/Abdominal GI/Abdominal exam: Present: distended, normal bowel sounds, soft, tenderness ( LLQ) Additional comments: Drain noted to the LLQ with small amount of seropurulent drainage noted in the collection bag. KARAN drain noted to the middle/LLQ with small amount of purulent sanguinous drainage. Parks catheter noted to be draining clear yellow urine. - Extremities Exam Extremities exam: Present: pedal edema (1+ BLE). Absent: joint swelling, tenderness - Neurological Exam Neurological exam: Present: alert, oriented X3, no focal deficits - Psychiatric Psychiatric exam: Present: normal affect, normal mood - Skin Skin exam: Present: dry, intact, normal color, warm - VTE Documentation of Mechanical Device: Intermittent pneumatic compression device Consult Discharge Plan - Plan Referrals: Lokesh Cooper MD [Primary Care Provider] - - Attending Attestation I examined this patient and my medical decision-making was reviewed with the Resident Physician. I agree with the documented findings, disposition and treatment plan as described except to the extent set forth below.
--- NOTE | 2018-04-21 15:29 | General Surgery Progress Note ---
Date of Encounter: 04/21/18 Time of Encounter: 15:30 - Assessment and Plan (1) Intra-abdominal hematoma Current Visit: Yes Status: Acute s/p IR drain placement X 2 Continue drainage Microbiology- e. coli IV antibiotic- management per ID Supportive care WBC normal Continue cardiac diet OOB to chair for meals PT/OT for mobilization INR- 1.3, PT- 14.8 Surgery will continue to follow from a distance Qualifiers: Encounter type: subsequent encounter Qualified Code(s): S36.92XD - Contusion of unspecified intra-abdominal organ, subsequent encounter Subjective Patient reports: no new complaints, feels better, still having pain, pain is less, tolerating a regular diet, flatus, bowel movement, afebrile Objective Vital Signs - Last 8 Hours Temp Pulse Resp BP Pulse Ox 04/21/18 15:04 98 F 81 17 130/70 100 04/21/18 11:07 97.6 F 74 15 90/63 97 04/21/18 08:08 15 97 Intake and Output 04/20/18 04/21/18 04/21/18 23:59 07:59 15:59 Intake Total 100 / 100 100 / 100 180 / 180 Output Total 0 / 0 270 / 270 150 / 150 Balance 100 / 100 -170 / -170 30 / 30 Intake: IV Fluids 100 / 100 100 / 100 Flagyl Premix 500 MG/100 ML 500 100 / 100 100 / 100 mg In 100 ml @ 100 mls/hr IVPB Q8HR [facility] Rx#:[id number] Oral 0 / 0 0 / 0 180 / 180 Output: Catheter 0 / 0 250 / 250 150 / 150 Wound Drainage 0 / 0 20 / 20 Left paracentesis drain 0 / 0 0 / 0 Medial Abdomen 0 / 0 20 / 20 Other: Stool Size Large Stool Consistency loose Stool Characteristics Foamy Stool Color Brown # Bowel Movements 1 Weight 104.9 kg Patient Weight 04/21/18 23:59 Weight 104.9 kg - General physical appearance no distress, chronically ill - ENT normal mucosa, atraumatic, normocephalic - Neck Neck exam: trachea midline - Respiratory normal respiratory effort, clear to auscultation, other (diminished bibasilar bases) - Cardiovascular Cardiovascular exam: Present: RRR - Abdomen Abdomen: Present: bowel sounds present, soft, tender (Expected tenderness around drain sites), wound (Pigtail drain medial- purulent, foul smelling (20ml since midnight); Pigtail drain left lateral- mostly serous, no odor (minimal drainage noted)) - Incision Incision: Present: clean and dry, intact - Genitourinary other (herrera cateter to SD with linarse, yellow urine noted) - Neurologic CN 2-12 grossly intact - Psychiatric oriented to person, oriented to place, speech is normal - Labs 04/21/18 04:26 04/21/18 04:26 Diabetes panel 04/21/18 Range/Units 04:26 Sodium 133 L (136-145) mEq/L Potassium 3.4 L (3.5-5.1) mEq/L Chloride 105 (98-107) mEq/L Carbon Dioxide 22 L (23-29) mEq/L BUN 30 H (8-23) mg/dL Creatinine 1.78 H (0.60-1.20) mg/dL Glucose 83 (70-105) mg/dL Calcium 7.8 L (8.6-10.3) mg/dL Calcium panel 04/21/18 Range/Units 04:26 Calcium 7.8 L (8.6-10.3) mg/dL Pituitary panel 04/21/18 Range/Units 04:26 Sodium 133 L (136-145) mEq/L Potassium 3.4 L (3.5-5.1) mEq/L Chloride 105 (98-107) mEq/L Carbon Dioxide 22 L (23-29) mEq/L BUN 30 H (8-23) mg/dL Creatinine 1.78 H (0.60-1.20) mg/dL Glucose 83 (70-105) mg/dL Calcium 7.8 L (8.6-10.3) mg/dL Adrenal panel 04/21/18 Range/Units 04:26 Sodium 133 L (136-145) mEq/L Potassium 3.4 L (3.5-5.1) mEq/L Chloride 105 (98-107) mEq/L Carbon Dioxide 22 L (23-29) mEq/L BUN 30 H (8-23) mg/dL Creatinine 1.78 H (0.60-1.20) mg/dL Glucose 83 (70-105) mg/dL Calcium 7.8 L (8.6-10.3) mg/dL - VTE Documentation of Mechanical Device: Intermittent pneumatic compression device Consult Discharge Plan - Plan Referrals: Lokesh Cooper MD [Primary Care Provider] - - Attending Attestation For this encounter, I have reviewed the COVER [employer]ER or PA documentation, treatment plan, and medical decision making; and I have had face to face time with this patient.
--- NOTE | 2018-04-21 15:48 | Internal Med Progress Note ---
Hospitalist Progress Note - Encounter Date of Encounter: 04/21/18 Time of Encounter: 10:00 - Subjective Interval History: patient was seen and examined at bedside. has had no over night events. remains afebrile. she is S/P IR guided 14Fr pelvic abscess drain on 04/19/18 placed in the lower LLQ due to previous drain being too high. 30ml pus removed and sent for culture which is growing E.coli. she denies any pain at the incision currently, reports that the diarrhea she had a few days ago has improved. denies nausea or vomiting denies fever, chills, chest pain, palpitations, SOB. - Exam Vitals: Temp Pulse Resp BP Pulse Ox 98 F 81 17 130/70 100 04/21/18 15:04 04/21/18 15:04 04/21/18 15:04 04/21/18 15:04 04/21/18 15:04 Exam: Constitutional: No acute distress, Alert, Anasarca, obese HEENT: NCAT, legally blind, poor dentition, external ears normal. Neck: supple, no JVD Cardio: regular rate and rhythm, 2/6 systolic murmur Resp: Decreased breath sounds in bases 2/2 habitus Abd: soft, obese, BS+ve, new drain placed above umblicus dressing has minimal blood drainage. KARAN drain has yellow fluid about 30 cc Extremities: 2 anasarca of all extremities, there is ecchymosis on the anterior shins. PICC in RUE with no erythema, ecchymosis on left hand Neuro: Moves extremities symmetrically, notable chronic weakness in the lower extremities - at baseline Psych: AAO x 3, affect is appropriate - Assessment and Plan (1) Abdominal pain Current Visit: Yes Status: Acute Assessment and Plan: Pt with infected abdominal hematoma/abcess; with hx of recent appendectomy 2 weeks prior to admission -repeat CT done 04/19 compared to 04/12 shows :Complex large abscess in the lower abdomen and pelvis. Unchanged appearance of the percutaneous drainage catheter. Only slight decrease in size of the large abscess compared to prior examination possibly secondary to multiloculation. Large amount of fluid remains in the abscess. -cultures from 04/10 from the the abdominal hematoma drain with 2 strains of Escherichia coli/staph epidermidis/enteroccocus faecium -General surgery following -S/P new drain placement by IR on 04/19/18- cultures growing E.coli -Infectious disease following will continue IV Flagyl and cefepime; IV vanco -fungal cx ordered -Diarrhea improved and C. difficile is negative -previous hydronephrosis not appreciated on CT done 04/19 - will continue to follow renal function and adjust Abx - leukocytosis- resolved / clinically doing better. (2) Atrial fibrillation Current Visit: Yes Status: Chronic Assessment and Plan: currently on Amidarone, BB and ASA not on AC Heart rate remains controlled patient will not tolerate anticoagulation therapy vitals as per protocol (3) Anemia Current Visit: Yes Status: Chronic Assessment and Plan: will continue to monitor patients H/H with daily CBC H/H stable above 8 (4) Chronic kidney disease, stage IV (severe) Current Visit: Yes Status: Chronic Assessment and Plan: Stage IV chronic kidney disease; Baseline SCr appears to be anywhere between 1.7 -2.5 with wide variation as per previous documentation L kidney is atrophic; repeat CT scan on 04/19 revealed no evidence of hydronephrosis previously seen Urology has signed off the patient developed hydronephrosis again place ureteral stent currntly renal function is improving again CR trended down will follow BMP in AM renally dose medications and avoid nephrotoxins (5) Anasarca Current Visit: Yes Status: Acute Assessment and Plan: Patient has been given several doses of IV Lasix with albumin and this has been effective with diuresis Home dose of Lasix was started on 04/17/18- now has mild increase in her creatinine 1.67 to 1.81. will continue lasix and follow BMP in the AM as she has anasarca. if creatinine trends up will consider discontinue lasix. nutrition following will follow recommendations Out of bed to chair during meals . (6) Acute thrombosis of cephalic vein Current Visit: Yes Status: Acute Assessment and Plan: Left upper extremity swelling was noted and ultrasound was performed which revealed acute superficial venous thrombosis of the left cephalic vein. Due to the patient's current intra-abdominal hematoma and superficial nature anticoagulation will not be started. We will monitor. Continue to apply warm compress to the left upper extremity (7) Diarrhea Current Visit: Yes Status: Resolved Assessment and Plan: Diarrhea improved, likely secondary to antibiotic C. difficile was sent last week and negative probiotics increased to twice per day as per ID recs all the stool softeners were discontinued today (8) Hypokalemia Current Visit: Yes Status: Acute Assessment and Plan: replaced will follow AM labs (9) UTI (urinary tract infection) Current Visit: Yes Status: Resolved Assessment and Plan: s/p completed Rocephin regimen (10) DVT prophylaxis Current Visit: Yes Status: Acute Assessment and Plan: on heparin Sc DVT Prophylaxis: on heparin SC - Time Spent with Patient Total time spent is greater than 50% in coordination of care (as documented) at patient's floor/unit and/or counseling patient: Plan of Care Discussed with: patient Internal Medicine: Result - Labs CBC & Chem 7: 04/21/18 04:26 04/21/18 04:26 Labs: Short CBC 04/21/18 Range/Units 04:26 WBC 8.1 (4.3-11.1) K/mcL Hgb 8.3 L (11.5-15.4) g/dL Hct 26.9 L (35.3-44.9) % Plt Count 157 (140-400) K/mcL BMP 04/21/18 04:26 Sodium 133 L Potassium 3.4 L Chloride 105 Carbon Dioxide 22 L BUN 30 H Creatinine 1.78 H Glucose 83 Calcium 7.8 L - ABG Interpretation ABG results: PT/INR, D-dimer PT 14.8 Seconds (9.4-12.1) H 04/20/18 09:45 - VTE Documentation of Mechanical Device: Intermittent pneumatic compression device Consult Discharge Plan - Plan Referrals: Lokesh Cooper MD [Primary Care Provider] - (1) Abdominal pain Qualifiers: Abdominal location: unspecified location (3) Anemia Qualifiers: Anemia type: other cause Other causes of anemia: chronic disease, other Qualified Code(s): D63.8 - Anemia in other chronic diseases classified elsewhere (6) Acute thrombosis of cephalic vein Qualifiers: Laterality: left Qualified Code(s): I82.612 - Acute embolism and thrombosis of superficial veins of left upper extremity (7) Diarrhea Qualifiers: Diarrhea type: unspecified type Qualified Code(s): R19.7 - Diarrhea, unspecified
[2018-04-21] MEDS: *HR* Heparin 5,000 UNIT/ML VIAL SQ SCH (18:41)
[2018-04-21] MEDS: *HR* Morphine Soln 10 MG/5 ML UDC PO PRN (20:47)
[2018-04-22] MEDS: MetroNIDAZOLE 500 MG/100 ML 500 MG/100 ML BAG IVPB SCH ×3 (00:22→15:02)
[2018-04-22 04:14] LABS: Hematocrit 28.5 % (35.3-44.9); Mean Corpuscular HGB Conc 31.6 g/dL (31.6-35.5); Mean Corpuscular Hemoglobin 29.4 pg (28.0-33.3); Mean Corpuscular Volume 93.1 fL (83.0-100.0); Platelet Count 160 K/mcL (140-400); Red Blood Count 3.06 M/mcL (3.82-4.97); Red Cell Distribution Width 19.8 % (11.5-14.5)
[2018-04-22 04:22] LABS: Potassium 3.3 mEq/L (3.5-5.1)
[2018-04-22] MEDS: *HR* Heparin 5,000 UNIT/ML VIAL SQ SCH (05:04)
[2018-04-22] MEDS: Budesonide/Formoterol 160/4.5 MDI IH SCH ×2 (08:00→20:10)
[2018-04-22] MEDS: Cefepime HCl 2,000 MG in 0.9 % Sodium Chloride Mini Bag 100 ML IVPB SCH (08:04)
[2018-04-22] MEDS: Aspirin Enteric Coated 81 MG Tablet PO SCH (08:06)
[2018-04-22] MEDS: Loratadine 10 MG TABLET PO SCH (08:06)
[2018-04-22] MEDS: *HR* Amiodarone 200 MG TABLET PO SCH (08:06)
[2018-04-22] MEDS: Lactobacillus 1 EACH CAP.SPRINK PO SCH ×2 (08:06→21:15)
[2018-04-22] MEDS: Nystatin POWDER 30 GM BOTTLE TP SCH ×3 (08:07→21:15)
[2018-04-22] MEDS: Fluticasone Propionate Nasal 50 MCG/SPRAY BOTTLE NS SCH (09:48)
--- NOTE | 2018-04-22 12:38 | Infectious Disease Progress No ---
Date of Encounter: 04/22/18 Time of Encounter: 12:36 - Assessment and Plan (1) Leukocytosis Current Visit: Yes Status: Acute Likely secondary to infected hematoma. Resolved. Continue to trend. Qualifiers: Leukocytosis type: unspecified Qualified Code(s): D72.829 - Elevated white blood cell count, unspecified (2) Infected hematoma following procedure Current Visit: Yes Status: Acute Causative organism: S. epi, E. coli x 2, and Enterococcus faecium. Additional culture obtained with new drain placement grew E. coli. CT scan completed 03/29/2018 showed moderate volume of fluid in the pelvis and along the mesentery with subacute blood. Repeat CT of the abdomen and pelvis completed 04/01/18 showed a complex fluid collection within the pelvis, here unchanged in size and the density continued to decrease making the finding concerning for an organizing hematoma, although there was suggestion of possible capsule formation, and the possibility of an abscess should be considered. She also had some increasing right-sided hydronephrosis, but presumably from compression of the distal right ureteral compression. Status post CT-guided placement of abdominal abscess drainage catheter on by interventional radiology. No cultures were obtained at the time of catheter placement, but pathology was negative for malignancy. Culture obtained on 04/10/18 positive for and or coccus fascia, staph epi, and 2 strains of Escherichia coli. Repeat CT scan on 04/12/18 showed a large complex appearing fluid collection likely representing an abscess measuring approximately 17 x 11 x 8 cm in size and appears somewhat decreased in size when compared to the previous examination , however a large amount of fluid remained. Additional repeat CAT scan completed 04/19/18 showed complex large abscess in the lower abdomen and pelvis, unchanged in appearance and only slightly decreased in the size of the large abscess compared to prior examination, possibly secondary to multi loculation with a large amount of fluid remaining in the abscess. Gen. surgery continues to follow. New drain placed in the abscess 04/19/18. Clinically, the patient is improved. Her white blood cell count has normalized. Continue vancomycin IV. Pharmacy to dose. Goal trough approximately 15. Discontinue Cefepime. Start Rocephin 2 grams IV daily. Continue Flagyl 500 mg 3 times a day, but can transition to PO. Duration of treatment depends on the clinical picture, but likely a total of 4 weeks from the placement of the second drain, through 05/17/18. Will plan to repeat CT scan before the patient is due to finish her antibiotics and make further recommendations at that time. Monitor renal function and for drug toxicity and dose adjust antibiotics. Due to the patient's CKD, she may need to have a tunneled PICC placed prior to discharge. Will discuss with the VAT and nephrology. Will need weekly CBC, BUN/Cr, ESR, CRP, and Vanc trough. Will need weekly PICC care per protocol. Follow up with ID 05/12/18 at 1350. (3) Diarrhea Current Visit: Yes Status: Resolved Etiology unclear, but likely secondary to antibiotics. C. difficile was checked last week and was negative. Continue probiotics twice a day. Resolved. Qualifiers: Diarrhea type: unspecified type Qualified Code(s): R19.7 - Diarrhea, unspecified (4) Chronic kidney disease, stage IV (severe) Current Visit: Yes Status: Chronic Serum creatinine is improved, appears to be back at baseline. Continue to trend. Dose adjust antibiotics and avoid nephrotoxins as able. - Subjective Interval history: Patient seen and examined. No acute events noted overnight. Patient states overall she feels okay. She does report some abdominal pain at the drain sites , but denies nausea or vomiting. Denies fevers, chills, rigors. Denies chest pain, shortness of breath, or cough. Denies urinary complaints or appetite changes. Denies oral thrush or new skin lesions. Complains of pain the lower portion of the LLE. Infect Dis PN-Objective Data - Labs CBC & Chem 7: 04/22/18 03:48 04/22/18 03:48 Labs: Laboratory Results - last 24 hr 04/22/18 04/22/18 04/22/18 03:48 03:48 03:48 WBC 8.5 RBC 3.06 L Hgb 9.0 L Hct 28.5 L MCV 93.1 MCH 29.4 MCHC 31.6 RDW 19.8 H Plt Count 160 MPV 10.0 Sodium 135 L Potassium 3.3 L Chloride 107 Carbon Dioxide 22 L BUN 29 H Creatinine 1.95 H Est GFR ( Amer) 30 L Est GFR (Non-Af Amer) 25 L BUN/Creatinine Ratio 15 Glucose 90 Calculated Osmolality 285 Calcium 8.0 L Random Vancomycin 18 Cultures: Cultures 04/19/18 15:21 Wound Culture - Final Abdomen Escherichia coli 07/21/18 20:55 Body Fluid Culture - Final Peritoneal Fluid Escherichia coli#2 Escherichia coli Staphylococcus epidermidis Enterococcus faecium Serology 04/14/18 04/05/18 Range/Units 11:25 13:15 Urine Color Yellow (Yellow) Urine Clarity Clear (Clear) Urine pH 5.5 (5.0-8.0) pH Units Ur Specific [place] 1.020 (1.010-1.025) Urine Protein 100 H (Neg-Trace) mg/dL Urine Glucose (UA) Normal (Normal) mg/dL Urine Ketones Negative (Negative) mg/dL Urine Blood Moderate H (Negative) Urine Nitrite Negative (Negative) Urine Bilirubin Small H (Negative) Urine Urobilinogen Normal (Normal) mg/dL Ur Leukocyte Esterase Small H (Negative) Urine Microscopic RBC 5-15 H (0-3) per hpf Urine Microscopic WBC 50-100 H (0-3) per hpf Ur Squamous Epith Cells Many H (None-Few) per lpf Urine Bacteria None Seen (None-Few) per hpf Urine Yeast Moderate H (None Seen) per hpf Ur Culture Indicated? NO. A (NO) Stl C. diff Tox B Gene Negative (Negative) Exam - Constitutional Vitals: Temp Pulse Resp BP Pulse Ox 98.5 F 84 17 91/63 97 04/22/18 10:42 04/22/18 10:42 04/22/18 10:42 04/22/18 10:42 04/22/18 10:42 General appearance: cooperative, morbidly obese, no acute distress - Head Head exam: Present: atraumatic, normal inspection, normocephalic - Eye Eye exam: Present: normal appearance, PERRL - ENT ENT exam: Present: mucous membranes moist - Neck Neck exam: Present: normal inspection - Respiratory Respiratory exam: Present: CTAB. Absent: rales, respiratory distress, rhonchi, wheezes - Cardiovascular Cardiovascular exam: Present: RRR, +S1, +S2 - GI/Abdominal GI/Abdominal exam: Present: distended (obese), normal bowel sounds, soft, tenderness (LLQ) Additional comments: Parks catheter noted to be draining clear yellow urine. Drainage catheter noted to the LLQ with small amount of dark yellow purulent drainage. KARAN drain noted to the middle of the abdomen with small amount of bloody purulent drainage. - Extremities Exam Extremities exam: Present: pedal edema (2+ BLE), tenderness (LLE). Absent: joint swelling - Neurological Exam Neurological exam: Present: alert, oriented X3, no focal deficits - Psychiatric Psychiatric exam: Present: normal affect, normal mood - Skin Skin exam: Present: dry, intact, normal color, warm - VTE Documentation of Mechanical Device: Intermittent pneumatic compression device Consult Discharge Plan - Plan Referrals: Lokesh Cooper MD [Primary Care Provider] - Grace Hicks MD [Partnered Physician] - 05/12/18 1:50 pm - Attending Attestation I examined this patient and my medical decision-making was reviewed with the Resident Physician. I agree with the documented findings, disposition and treatment plan as described except to the extent set forth below.
--- NOTE | 2018-04-22 17:45 | Internal Med Progress Note ---
Hospitalist Progress Note - Encounter Date of Encounter: 04/22/18 Time of Encounter: 07:45 - Subjective Interval History: patient was seen and examined at bedside. has had no over night events. remains afebrile. is working with PT and is OOB to chair daily for meals which she enjoys she denies any pain at the incision currently, reports that the diarrhea she had a few days ago hasnearly resolved. denies nausea or vomiting denies fever, chills, chest pain, palpitations, SOB. - Exam Vitals: Temp Pulse Resp BP Pulse Ox 98.3 F 83 17 103/59 98 04/22/18 15:11 04/22/18 15:11 04/22/18 15:11 04/22/18 15:11 04/22/18 15:11 Exam: Constitutional: No acute distress, Alert, Anasarca, obese HEENT: NCAT, legally blind, poor dentition, external ears normal. Neck: supple, no JVD Cardio: regular rate and rhythm, 2/6 systolic murmur Resp: Decreased breath sounds in bases 2/2 habitus Abd: soft, obese, BS+ve, new drain placed above umblicus dressing has minimal blood drainage. KARAN drain has yellow fluid about 30 cc Extremities: 2 anasarca of all extremities, there is ecchymosis on the anterior shins. PICC in RUE with no erythema, ecchymosis on left hand Neuro: Moves extremities symmetrically, notable chronic weakness in the lower extremities - at baseline Psych: AAO x 3, affect is appropriate - Assessment and Plan (1) Abdominal pain Current Visit: Yes Status: Acute Assessment and Plan: Pt with infected abdominal hematoma/abcess; with hx of recent appendectomy 2 weeks prior to admission -repeat CT done 04/19 compared to 04/12 shows :Complex large abscess in the lower abdomen and pelvis. Unchanged appearance of the percutaneous drainage catheter. Only slight decrease in size of the large abscess compared to prior examination possibly secondary to multiloculation. Large amount of fluid remains in the abscess. -cultures from 04/10 from the the abdominal hematoma drain with 2 strains of Escherichia coli/staph epidermidis/enteroccocus faecium -General surgery following -S/P new drain placement by IR on 04/19/18- cultures growing E.coli -Infectious disease following will continue IV Flagyl; IV vanco and now started on ceftriaxone as per ID -fungal cx ordered -Diarrhea improved and C. difficile is negative -previous hydronephrosis not appreciated on CT done 04/19 - will continue to follow renal function and adjust Abx - leukocytosis- resolved / clinically doing better. -Duration of treatment depends on the clinical picture, but likely a total of 4 weeks from the placement of the second drain, through 05/17/18 -CT scan before the patient is due to finish her antibiotics and make further recommendations at that time. -as per ID - Due to the patient's CKD, she may need to have a tunneled PICC placed prior to discharge. ID to discuss with the VAT and nephrology. Will need weekly CBC, BUN/Cr, ESR, CRP, and Vanc trough. on discharge Will need weekly PICC care per protocol. on discharge Follow up with ID 05/12/18 at 1350. (2) Atrial fibrillation Current Visit: Yes Status: Chronic Assessment and Plan: currently on Amidarone, BB and ASA not on AC Heart rate remains controlled patient will not tolerate anticoagulation therapy vitals as per protocol (3) Anemia Current Visit: Yes Status: Chronic Assessment and Plan: will continue to monitor patients H/H with daily CBC H/H stable above 8 (4) Chronic kidney disease, stage IV (severe) Current Visit: Yes Status: Chronic Assessment and Plan: Stage IV chronic kidney disease; Baseline SCr appears to be anywhere between 1.7 -2.5 with wide variation as per previous documentation L kidney is atrophic; repeat CT scan on 04/19 revealed no evidence of hydronephrosis previously seen Urology has signed off the patient developed hydronephrosis again place ureteral stent BMP on 04/22/18 shows that creatinine has trended up - will discontinue lasix for now will follow BMP in AM renally dose medications and avoid nephrotoxins (5) Anasarca Current Visit: Yes Status: Acute Assessment and Plan: will discontinue continue lasix and follow BMP in the AM as she has anasarca. nutrition following will follow recommendations Out of bed to chair during meals . (6) Acute thrombosis of cephalic vein Current Visit: Yes Status: Acute Assessment and Plan: Left upper extremity swelling was noted and ultrasound was performed which revealed acute superficial venous thrombosis of the left cephalic vein. Due to the patient's current intra-abdominal hematoma and superficial nature anticoagulation will not be started. We will monitor. Continue to apply warm compress to the left upper extremity (7) Diarrhea Current Visit: Yes Status: Resolved Assessment and Plan: Diarrhea resolved, likely secondary to antibiotic C. difficile was sent last week and negative probiotics increased to twice per day as per ID recs all the stool softeners were discontinued yesterday (8) Hypokalemia Current Visit: Yes Status: Acute Assessment and Plan: replaced will follow AM labs (9) UTI (urinary tract infection) Current Visit: Yes Status: Resolved Assessment and Plan: s/p completed Rocephin regimen (10) DVT prophylaxis Current Visit: Yes Status: Acute Assessment and Plan: on scds as rosalina drain site showed minimal bleeding DVT Prophylaxis: scds - Time Spent with Patient Total time spent is greater than 50% in coordination of care (as documented) at patient's floor/unit and/or counseling patient: Internal Medicine: Result - Labs CBC & Chem 7: 04/22/18 03:48 04/22/18 03:48 Labs: Short CBC 04/22/18 Range/Units 03:48 WBC 8.5 (4.3-11.1) K/mcL Hgb 9.0 L (11.5-15.4) g/dL Hct 28.5 L (35.3-44.9) % Plt Count 160 (140-400) K/mcL BMP 04/22/18 03:48 Sodium 135 L Potassium 3.3 L Chloride 107 Carbon Dioxide 22 L BUN 29 H Creatinine 1.95 H Glucose 90 Calcium 8.0 L - ABG Interpretation ABG results: PT/INR, D-dimer PT 14.8 Seconds (9.4-12.1) H 04/20/18 09:45 - VTE Documentation of Mechanical Device: Intermittent pneumatic compression device Consult Discharge Plan - Plan Referrals: Lokesh Cooper MD [Primary Care Provider] - Grace Hicks MD [Partnered Physician] - 05/12/18 1:50 pm (1) Abdominal pain Qualifiers: Abdominal location: unspecified location Qualified Code(s): R10.9 - Unspecified abdominal pain (2) Atrial fibrillation Qualifiers: Atrial fibrillation type: chronic Qualified Code(s): I48.2 - Chronic atrial fibrillation (3) Anemia Qualifiers: Anemia type: other cause Other causes of anemia: chronic disease, other Qualified Code(s): D63.8 - Anemia in other chronic diseases classified elsewhere (6) Acute thrombosis of cephalic vein Qualifiers: Laterality: left Qualified Code(s): I82.612 - Acute embolism and thrombosis of superficial veins of left upper extremity (7) Diarrhea Qualifiers: Diarrhea type: unspecified type Qualified Code(s): R19.7 - Diarrhea, unspecified
[2018-04-22] MEDS: cefTRIAXone 2,000 MG in Water for inj. (sterile) 20 ML 20 ML IVP SCH (18:29)
[2018-04-22] MEDS: Acetaminophen 325 MG TABLET PO PRN (18:29)
[2018-04-22] MEDS: metroNIDAZOLE 500 MG TABLET PO SCH (21:15)
[2018-04-23 03:47] LABS: Hematocrit 28.2 % (35.3-44.9); Hemoglobin 8.9 g/dL (11.5-15.4); Mean Corpuscular HGB Conc 31.6 g/dL (31.6-35.5); Mean Corpuscular Hemoglobin 29.6 pg (28.0-33.3); Mean Corpuscular Volume 93.7 fL (83.0-100.0); Mean Platelet Volume 9.6 fL (9.4-12.4); Platelet Count 160 K/mcL (140-400); Red Blood Count 3.01 M/mcL (3.82-4.97); Red Cell Distribution Width 20.2 % (11.5-14.5)
[2018-04-23 03:55] LABS: Calcium 7.9 mg/dL (8.6-10.3); Potassium 3.7 mEq/L (3.5-5.1)
[2018-04-23] MEDS: *HR* Morphine Soln 10 MG/5 ML UDC PO PRN (05:22)
[2018-04-23] MEDS: Budesonide/Formoterol 160/4.5 MDI IH SCH ×2 (07:37→20:18)
[2018-04-23] MEDS: metroNIDAZOLE 500 MG TABLET PO SCH ×3 (09:12→20:33)
[2018-04-23] MEDS: *HR* Amiodarone 200 MG TABLET PO SCH (09:13)
[2018-04-23] MEDS: Aspirin Enteric Coated 81 MG Tablet PO SCH (09:13)
[2018-04-23] MEDS: Lactobacillus 1 EACH CAP.SPRINK PO SCH ×2 (09:13→20:33)
[2018-04-23] MEDS ORDERED: Vancomycin 500 MG in 0.9 % Sodium Chloride Mini Bag 100 ML IVPB ONE (10:00)
[2018-04-23] MEDS: Fluticasone Propionate Nasal 50 MCG/SPRAY BOTTLE NS SCH (10:17)
[2018-04-23] MEDS: Nystatin POWDER 30 GM BOTTLE TP SCH ×3 (10:17→20:33)
[2018-04-23] MEDS: Acetaminophen 325 MG TABLET PO PRN (10:44)
[2018-04-23 10:51] LABS: Bilirubin,Urine Negative (Negative); Blood,Urine Small (Negative); Clarity,Urine Turbid (Clear); Color,Urine Yellow (Yellow); Glucose,Urine (UA) Normal (Normal); Ketones,Urine Trace mg/dL (Negative); Leukocyte Esterase,Urine Large (Negative); Nitrite,Urine Negative (Negative); PH,Urine 5.5 pH Units (5.0-8.0); Protein,Urine 100 mg/dL (Neg-Trace); Specific Gravity,Urine 1.023 (1.010-1.025); Urobilinogen,Urine Normal (Normal)
[2018-04-23 10:54] LABS: Bacteria,Urine None Seen per hpf (None-Few); Squamous Epithelial Cell,Urine Many per lpf (None-Few); WBC,Urine TNTC per hpf (0-3)
--- NOTE | 2018-04-23 11:16 | Infectious Disease Progress No ---
Date of Encounter: 04/23/18 Time of Encounter: 11:13 - Assessment and Plan (1) Leukocytosis Current Visit: Yes Status: Acute Likely secondary to infected hematoma. Resolved. Continue to trend. Qualifiers: Leukocytosis type: unspecified Qualified Code(s): D72.829 - Elevated white blood cell count, unspecified (2) Infected hematoma following procedure Current Visit: Yes Status: Acute Causative organism: S. epi, E. coli x 2, and Enterococcus faecium. Additional culture obtained with new drain placement grew E. coli. CT scan completed 03/29/2018 showed moderate volume of fluid in the pelvis and along the mesentery with subacute blood. Repeat CT of the abdomen and pelvis completed 04/01/18 showed a complex fluid collection within the pelvis, here unchanged in size and the density continued to decrease making the finding concerning for an organizing hematoma, although there was suggestion of possible capsule formation, and the possibility of an abscess should be considered. She also had some increasing right-sided hydronephrosis, but presumably from compression of the distal right ureteral compression. Status post CT-guided placement of abdominal abscess drainage catheter on by interventional radiology. No cultures were obtained at the time of catheter placement, but pathology was negative for malignancy. Culture obtained on 04/10/18 positive for and or coccus fascia, staph epi, and 2 strains of Escherichia coli. Repeat CT scan on 04/12/18 showed a large complex appearing fluid collection likely representing an abscess measuring approximately 17 x 11 x 8 cm in size and appears somewhat decreased in size when compared to the previous examination , however a large amount of fluid remained. Additional repeat CAT scan completed 04/19/18 showed complex large abscess in the lower abdomen and pelvis, unchanged in appearance and only slightly decreased in the size of the large abscess compared to prior examination, possibly secondary to multi loculation with a large amount of fluid remaining in the abscess. Gen. surgery continues to follow. New drain placed in the abscess 04/19/18. Clinically, the patient is improved. Her white blood cell count has normalized. Continue vancomycin IV. Pharmacy to dose. Goal trough approximately 15. Continue Rocephin 2 grams IV daily. Continue Flagyl 500 mg PO TID. Duration of treatment depends on the clinical picture, but likely a total of 4 weeks from the placement of the second drain, through 05/17/18. Will plan to repeat CT scan before the patient is due to finish her antibiotics and make further recommendations at that time. Monitor renal function and for drug toxicity and dose adjust antibiotics. Due to the patient's CKD, she may need to have a tunneled PICC placed prior to discharge. Discussed with the primary team. Will need weekly CBC, BUN/Cr, ESR, CRP, and Vanc trough. Will need weekly PICC care per protocol. Follow up with ID 05/12/18 at 1350. (3) Diarrhea Current Visit: Yes Status: Resolved Etiology unclear, but likely secondary to antibiotics. C. difficile was checked last week and was negative. Continue probiotics twice a day. Resolved. Qualifiers: Diarrhea type: unspecified type Qualified Code(s): R19.7 - Diarrhea, unspecified (4) Chronic kidney disease, stage IV (severe) Current Visit: Yes Status: Chronic Serum creatinine is improved, appears to be back at baseline. Continue to trend. Dose adjust antibiotics and avoid nephrotoxins as able. Typically follows with Dr. Bustos. Nephrology consulted. Await recommendations. - Subjective Interval history: Patient seen and examined. No acute events noted overnight. Patient states overall she feels okay. She does report some abdominal pain at the drain sites. She reports some nausea when she was eating breakfast this morning. Denies fevers, chills, rigors. Denies chest pain, shortness of breath, or cough. Denies urinary complaints or appetite changes. Denies oral thrush or new skin lesions. Complains of pain the lower portion of the LLE and right groin. Infect Dis PN-Objective Data - Labs CBC & Chem 7: 04/23/18 03:24 04/23/18 03:24 Labs: Laboratory Results - last 24 hr 04/23/18 04/23/18 04/23/18 03:24 03:24 03:24 WBC 7.8 RBC 3.01 L Hgb 8.9 L Hct 28.2 L MCV 93.7 MCH 29.6 MCHC 31.6 RDW 20.2 H Plt Count 160 MPV 9.6 Sodium 136 Potassium 3.7 Chloride 107 Carbon Dioxide 21 L BUN 29 H Creatinine 2.05 H Est GFR ( Amer) 29 L Est GFR (Non-Af Amer) 24 L BUN/Creatinine Ratio 14 Glucose 92 Calculated Osmolality 287 Calcium 7.9 L Magnesium Urine Color Urine Clarity Urine pH Ur Specific [place] Urine Protein Urine Glucose (UA) Urine Ketones Urine Blood Urine Nitrite Urine Bilirubin Urine Urobilinogen Ur Leukocyte Esterase Random Vancomycin 15 04/23/18 04/23/18 03:24 10:46 WBC RBC Hgb Hct MCV MCH MCHC RDW Plt Count MPV Sodium Potassium Chloride Carbon Dioxide BUN Creatinine Est GFR ( Amer) Est GFR (Non-Af Amer) BUN/Creatinine Ratio Glucose Calculated Osmolality Calcium Magnesium 1.8 Urine Color Yellow Urine Clarity Turbid A Urine pH 5.5 Ur Specific [place] 1.023 Urine Protein 100 H Urine Glucose (UA) Normal Urine Ketones Trace H Urine Blood Small H Urine Nitrite Negative Urine Bilirubin Negative Urine Urobilinogen Normal Ur Leukocyte Esterase Large H Random Vancomycin Cultures: Cultures 04/19/18 15:21 Wound Culture - Final Abdomen Escherichia coli 04/10/18 20:55 Body Fluid Culture - Final Peritoneal Fluid Escherichia coli#2 Escherichia coli Staphylococcus epidermidis Enterococcus faecium Serology 04/23/18 04/14/18 04/05/18 Range/Units 10:46 11:25 13:15 Urine Color Yellow Yellow (Yellow) Urine Clarity Turbid A Clear (Clear) Urine pH 5.5 5.5 (5.0-8.0) pH Units Ur Specific [place] 1.023 1.020 (1.010-1.025) Urine Protein 100 H 100 H (Neg-Trace) mg/dL Urine Glucose (UA) Normal Normal (Normal) mg/dL Urine Ketones Trace H Negative (Negative) mg/dL Urine Blood Small H Moderate H (Negative) Urine Nitrite Negative Negative (Negative) Urine Bilirubin Negative Small H (Negative) Urine Urobilinogen Normal Normal (Normal) mg/dL Ur Leukocyte Esterase Large H Small H (Negative) Urine Microscopic RBC 5-15 H (0-3) per hpf Urine Microscopic WBC 50-100 H (0-3) per hpf Ur Squamous Epith Cells Many H (None-Few) per lpf Urine Bacteria None Seen (None-Few) per hpf Urine Yeast Moderate H (None Seen) per hpf Ur Culture Indicated? NO. A (NO) Stl C. diff Tox B Gene Negative (Negative) Exam - Constitutional Vitals: Temp Pulse Resp BP Pulse Ox 97.8 F 94 18 104/64 99 04/23/18 08:00 04/23/18 08:00 04/23/18 08:00 04/23/18 08:00 04/23/18 08:00 General appearance: cooperative, no acute distress, obese - Head Head exam: Present: atraumatic, normal inspection, normocephalic - Eye Eye exam: Present: normal appearance - ENT ENT exam: Present: mucous membranes moist - Neck Neck exam: Present: normal inspection - Respiratory Respiratory exam: Present: CTAB. Absent: rales, respiratory distress, rhonchi, wheezes - Cardiovascular Cardiovascular exam: Present: RRR, +S1, +S2 - GI/Abdominal GI/Abdominal exam: Present: distended (obese), normal bowel sounds, soft, tenderness (LLQ) Additional comments: Drain noted to the LLQ with small amount of dark yellow purulent drainage. Drain noted to the middle of the lower abdomen with small amount of bloody purulent drainage noted. Parks catheter noted to be draining cloudy yellow urine. - Extremities Exam Extremities exam: Present: pedal edema (2+ BLE). Absent: joint swelling, normal inspection, tenderness - Neurological Exam Neurological exam: Present: alert, oriented X3, no focal deficits - Psychiatric Psychiatric exam: Present: normal affect, normal mood - Skin Skin exam: Present: dry, intact, normal color, warm - VTE Documentation of Mechanical Device: Intermittent pneumatic compression device Consult Discharge Plan - Plan Referrals: Lokesh Cooper MD [Primary Care Provider] - Grace Hicks MD [Partnered Physician] - 05/12/18 1:50 pm - Attending Attestation I examined this patient and my medical decision-making was reviewed with the Resident Physician. I agree with the documented findings, disposition and treatment plan as described except to the extent set forth below.
[2018-04-23 11:40] LABS: Yeast,Urine Many per hpf (None Seen)
--- NOTE | 2018-04-23 12:55 | Nephrology Consult Note ---
Date of Encounter: 04/23/18 Time of Encounter: 12:50 Assessment and Plan (1) Chronic kidney disease, stage IV (severe) Current Visit: Yes Status: Chronic Baseline SCR appears to be 1.8-2.5 and GFR appears to be 20-25, with a few in the 30's. This mostly depends on hydration status and whether she is on IV lasix or other nephrotoxins. I would recommend to continue to hold Lasix and avoid other nephrotoxins. Strict I/O. (2) Hydronephrosis Current Visit: Yes Status: Acute Appears resolved when hematoma was drained. Qualifiers: Hydronephrosis type: other Qualified Code(s): N13.39 - Other hydronephrosis (3) Abdominal pain Current Visit: Yes Status: Acute Per primary. Qualifiers: Abdominal location: unspecified location Qualified Code(s): R10.9 - Unspecified abdominal pain (4) Physical deconditioning Current Visit: Yes Status: Acute Pt is sitting on in chair, much improved from last time I saw the patient. Continue to get up to chair. History of Present Illness - Reason for Consult Consult date: 04/23/18 Chronic Kidney Disease - Chief Complaint abdominal pain - History of Present Illness Ms. Barber is a CKD IV patient of Dr. Bustos. She has not been seen by him recently because of her recent illness. Pt is s/p appendectomy 03/10/18. She went to ICU after for bleeding issues, had since been released to ECF. Presented back to ED with abdominal pain. Surgery on board for management. I am unable to see her baseline outpatient records but it does appear she is CKD IV with the recent hospitalizations. We saw this patient on February 28 of this year for worsening kidney function. At the time she was found to have hydronephrosis related to a hematoma that was hindering the right kidney function. The left kidney is atrophic. Her Scr varies from 1.8-2.5. No need to repeat TUCKER workup at this time. Continue to hold Lasix. If patient needs outpatient Antibiotics I would recommend a Tunneled CVC to not damage any veins for future Fistula placement. This is a patient of Dr. Bustos's patient and she will see him outpatient after hospitalization. Past Med Surg Social Fam HX - Past Medical History Medical history: arthritis, asthma, atrial fibrillation, CHF, COPD, GERD, hyperlipidemia, hypertension, osteoporosis, renal disease, venous stasis, valvular heart disease, other Additional medical history: blind Psychiatric history: anxiety, depression - Past Surgical History Surgical History: cataract, cholecystectomy, heart valve replacement, herniorrhaphy, hysterectomy, knee replacement, orthopedic, other, sinus surgery , other Additional surgical history: lung surgery - right pleurodesis secondary to pleural effusions after cardiac surgery. "Ross" heart procedure- 1994 [facility] - Social History Smoking Status: Never smoker Smokeless Tobacco Status: No Alcohol use: none Drug use: none - Family History Father History Unknown: Yes Adopted: No Family Member Ethnicity: Non- Living Status: Hx Family Cardiac Disorders: Yes (HD, Pig valve, HD) Hx Family Cancer: Yes (Cancer on lip) Hx Family GI Disorders: Yes (CKD) Hx Family Endocrine Disorder: Yes (Gallstones) Sister Family Member Ethnicity: Non- Living Status: Hx Family Endocrine Disorder: Yes (DM) Mother History Unknown: Yes Adopted: No Family Member Ethnicity: Non- Living Status: Hx Family Cardiac Disorders: Yes (HD, Anemia) Medications and Allergies Cyclosporine [Restasis] 1 drop BOTH EYES BID 04/30/15 [History] Potassium Chloride 20 meq PO DAILY 06/19/16 [History] Calcitriol [Rocaltrol] 0.25 mcg PO DAILY 03/20/17 [History] Loratadine [Claritin] 10 mg PO DAILY 07/20/17 [History] Albuterol Sulfate [Albuterol Inhaler] 2 puff IH Q4HR PRN 08/27/17 [History] Atorvastatin Calcium [Lipitor] 20 mg PO HS 10/06/17 [History] Esomeprazole Magnesium [Nexium] 40 mg PO DAILY 10/06/17 [History] Aspirin Enteric Coated [Aspirin EC] 81 mg PO DAILY tablet. 11/02/17 [Rx] Amiodarone [Cordarone] 200 mg PO DAILY 11/28/17 [History] Docusate [Colace] 100 mg PO BID PRN capsule 12/02/17 [Rx] Fluticasone Propionate Nasal [Flonase] 50 mcg NS DAILY bottle 12/02/17 [Rx] Metoprolol [Lopressor] 50 mg PO BID tablet 12/02/17 [Rx] Acetaminophen [Tylenol] 650 mg PO Q4HR PRN 02/11/18 [History] GuaiFENesin Liq [Robitussin Liq] 200 mg PO Q4HR PRN 02/11/18 [History] Furosemide [Lasix] 40 mg PO DAILY 03/09/18 [History] Quetiapine Fumarate [Seroquel] 50 mg PO HS 03/09/18 [History] Fluticasone/Vilanterol [Breo Ellipta 100-25 Mcg INH] 1 puff IH DAILY 03/29/18 [ History] Isosorbide MONOnitrate (24 HR) [Imdur] 60 mg PO DAILY 03/29/18 [History] Loperamide [Imodium] 2 mg PO Q6H PRN 03/29/18 [History] Ondansetron [Zofran] 8 mg PO Q6H PRN 03/29/18 [History] Oxycodone HCl [Oxaydo] 5 mg PO QID PRN 03/29/18 [History] 3 Allergy/AdvReac Type Severity Reaction Status Date / Time ciprofloxacin [From Cipro] Allergy Hives Verified 03/29/18 21:41 meperidine [From Demerol] AdvReac Vomiting Verified 03/29/18 21:41 Review of Systems Constitutional: no chills, no fever(s) Cardiovascular: no chest pain Respiratory: no cough Gastrointestinal: no change in bowel habits, no diarrhea, no nausea, no vomiting Exam - Vital Signs Vital signs: Initial Vital Signs Temp Pulse Resp BP Pulse Ox 97.6 F 90 18 110/72 100 03/29/18 11:41 03/29/18 11:41 03/29/18 11:41 03/29/18 11:41 03/29/18 11:41 Vital Signs - Last 8 Hours Temp Pulse Resp BP Pulse Ox 04/23/18 08:00 97.8 F 94 18 104/64 99 04/23/18 07:37 18 99 04/23/18 05:18 97.7 F 93 15 107/75 97 Intake and Output 04/22/18 04/23/18 04/23/18 23:59 07:59 15:59 Intake Total 120 / 120 0 / 0 170 / 170 Output Total 0 / 0 200 / 200 Balance 120 / 120 -200 / -200 170 / 170 Intake: IV Fluids 20 Rocephin 2,000 MG In Water for 20 / 20 inj. (sterile) 20 ML @ 600 mls/ hr IVP Q24H [facility] Rx#:[id number] Oral 120 / 120 0 / 0 150 / 150 Output: Urine 0 / 0 Catheter 200 / 200 Other: Meal Dinner Breakfast Percent of Meal Consumed 25% - General Appearance General appearance: well-developed, well-nourished EENT: ATNC, hearing intact Neck: supple Respiratory: clear Cardiology: edema (+2 pitting edema noted bilaterally.), normal S1, normal S2 Gastrointestinal: normoactive bowel sounds, no tenderness, no guarding Integumentary: no rash, warm and dry Neurologic: alert and oriented x3 Psychiatric: mood/affect appropriate, cooperative Results - Lab Results 04/23/18 03:24 04/23/18 03:24 Most recent lab results Calcium 7.9 mg/dL (8.6-10.3) L 04/23/18 03:24 Phosphorus 2.8 mg/dL (2.7-4.5) 04/20/18 03:10 Magnesium 1.8 mg/dL (1.6-2.6) 04/23/18 03:24 Urine Creatinine 89 mg/dL 03/31/18 19:50 Urine Sodium 16.5 mEq/L 03/31/18 19:50 Urine Total Protein 26 mg/dL (1-14) H 03/31/18 19:50 Consult Discharge Plan - Plan Referrals: Lokesh Cooper MD [Primary Care Provider] - Grace Hicks MD [Partnered Physician] - 05/12/18 1:50 pm
--- NOTE | 2018-04-23 14:10 | Internal Med Progress Note ---
Hospitalist Progress Note - Encounter Date of Encounter: 04/23/18 Time of Encounter: 09:00 - Subjective Interval History: patient was seen and examined at bedside. has had no over night events. remains afebrile. is OOB to chair daily for meals which she enjoys she denies any pain at the incision currently, reports that the diarrhea she had a few days ago has resolved. denies nausea or vomiting denies fever, chills, chest pain, palpitations, SOB. - Exam Vitals: Temp Pulse Resp BP Pulse Ox 97.4 F L 95 18 133/95 97 04/23/18 13:00 04/23/18 13:00 04/23/18 13:00 04/23/18 13:00 04/23/18 13:00 Exam: Constitutional: No acute distress, Alert, Anasarca, obese HEENT: NCAT, legally blind, poor dentition, external ears normal. Neck: supple, no JVD Cardio: regular rate and rhythm, 2/6 systolic murmur Resp: Decreased breath sounds in bases 2/2 habitus Abd: soft, obese, BS+ve, new drain placed above umblicus dressing has minimal blood drainage. KARAN drain has yellow fluid about 30 cc Extremities: +2 anasarca of all extremities, there is ecchymosis on the anterior shins. PICC in RUE with no erythema, ecchymosis on left hand Neuro: Moves extremities symmetrically, notable chronic weakness in the lower extremities - at baseline Psych: AAO x 3, affect is appropriate - Assessment and Plan (1) Abdominal pain Current Visit: Yes Status: Acute Assessment and Plan: Pt with infected abdominal hematoma/abcess; with hx of recent appendectomy 2 weeks prior to admission -repeat CT done 04/19 compared to 04/12 shows :Complex large abscess in the lower abdomen and pelvis. Unchanged appearance of the percutaneous drainage catheter. Only slight decrease in size of the large abscess compared to prior examination possibly secondary to multiloculation. Large amount of fluid remains in the abscess. -cultures from 04/10 from the the abdominal hematoma drain with 2 strains of Escherichia coli/staph epidermidis/enteroccocus faecium -General surgery following -S/P new drain placement by IR on 04/19/18- cultures growing E.coli -Infectious disease following will continue IV Flagyl; IV vanco and now started on ceftriaxone as per ID -fungal cx ordered -Diarrhea improved and C. difficile is negative -previous hydronephrosis not appreciated on CT done 04/19 - will continue to follow renal function and adjust Abx - leukocytosis- resolved / clinically doing better. -Duration of treatment depends on the clinical picture, but likely a total of 4 weeks from the placement of the second drain, through 05/17/18 -CT scan before the patient is due to finish her antibiotics and make further recommendations at that time. -as per ID - Due to the patient's CKD, she may need to have a tunneled PICC placed prior to discharge. ID to discuss with the VAT Will need weekly CBC, BUN/Cr, ESR, CRP, and Vanc trough. on discharge Will need weekly PICC care per protocol. on discharge Follow up with ID 05/12/18 at 1350. nephrology was consulted (2) Atrial fibrillation Current Visit: Yes Status: Chronic Assessment and Plan: currently on Amidarone, BB and ASA not on AC Heart rate remains controlled patient will not tolerate anticoagulation therapy vitals as per protocol (3) Anemia Current Visit: Yes Status: Chronic Assessment and Plan: will continue to monitor patients H/H with daily CBC H/H stable above 8 (4) Chronic kidney disease, stage IV (severe) Current Visit: Yes Status: Chronic Assessment and Plan: Stage IV chronic kidney disease; Baseline SCr appears to be anywhere between 1.7 -2.5 with wide variation as per previous documentation L kidney is atrophic; repeat CT scan on 04/19 revealed no evidence of hydronephrosis previously seen Urology has signed off the patient developed hydronephrosis again place ureteral stent BMP on 04/22/18 shows that creatinine has trended up - will continue to hold will follow BMP in AM renally dose medications and avoid nephrotoxins nephrology consulted will follow recommendations renal US ordered continue to follow I/O (5) Anasarca Current Visit: Yes Status: Acute Assessment and Plan: hold lasix and follow BMP in the AM as she has anasarca. nutrition following will follow recommendations Out of bed to chair during meals . (6) Acute thrombosis of cephalic vein Current Visit: Yes Status: Acute Assessment and Plan: Left upper extremity swelling was noted and ultrasound was performed which revealed acute superficial venous thrombosis of the left cephalic vein. Due to the patient's current intra-abdominal hematoma and superficial nature anticoagulation will not be started. We will monitor. Continue to apply warm compress to the left upper extremity (7) Diarrhea Current Visit: Yes Status: Resolved Assessment and Plan: Diarrhea resolved, likely secondary to antibiotic C. difficile was sent last week and negative probiotics increased to twice per day as per ID recs all the stool softeners were discontinued (8) Hypokalemia Current Visit: Yes Status: Acute Assessment and Plan: resolved (9) DVT prophylaxis Current Visit: Yes Status: Acute Assessment and Plan: on scds as the drain site showed minimal bleeding DVT Prophylaxis: as above - Time Spent with Patient Total time spent is greater than 50% in coordination of care (as documented) at patient's floor/unit and/or counseling patient: Plan of Care Discussed with: patient Internal Medicine: Result - Labs CBC & Chem 7: 04/23/18 03:24 04/23/18 03:24 Labs: Short CBC 04/23/18 Range/Units 03:24 WBC 7.8 (4.3-11.1) K/mcL Hgb 8.9 L (11.5-15.4) g/dL Hct 28.2 L (35.3-44.9) % Plt Count 160 (140-400) K/mcL BMP 04/23/18 03:24 Sodium 136 Potassium 3.7 Chloride 107 Carbon Dioxide 21 L BUN 29 H Creatinine 2.05 H Glucose 92 Calcium 7.9 L Urine 04/23/18 Range/Units 10:46 Urine Color Yellow (Yellow) Urine Clarity Turbid A (Clear) Urine pH 5.5 (5.0-8.0) pH Units Ur Specific [place] 1.023 (1.010-1.025) Urine Protein 100 H (Neg-Trace) mg/dL Urine Glucose (UA) Normal (Normal) mg/dL - ABG Interpretation ABG results: PT/INR, D-dimer PT 14.8 Seconds (9.4-12.1) H 04/20/18 09:45 - VTE Documentation of Mechanical Device: Intermittent pneumatic compression device Consult Discharge Plan - Plan Referrals: Lokesh Cooper MD [Primary Care Provider] - Grace Hicks MD [Partnered Physician] - 05/12/18 1:50 pm (1) Abdominal pain Qualifiers: Abdominal location: unspecified location Qualified Code(s): R10.9 - Unspecified abdominal pain (3) Anemia Qualifiers: Anemia type: other cause Other causes of anemia: chronic disease, other Qualified Code(s): D63.8 - Anemia in other chronic diseases classified elsewhere (6) Acute thrombosis of cephalic vein Qualifiers: Laterality: left Qualified Code(s): I82.612 - Acute embolism and thrombosis of superficial veins of left upper extremity (7) Diarrhea Qualifiers: Diarrhea type: unspecified type Qualified Code(s): R19.7 - Diarrhea, unspecified
[2018-04-23] MEDS: cefTRIAXone 2,000 MG in Water for inj. (sterile) 20 ML 20 ML IVP SCH (17:45)
[2018-04-24 03:41] LABS: Hematocrit 27.1 % (35.3-44.9); Hemoglobin 8.6 g/dL (11.5-15.4); Mean Corpuscular HGB Conc 31.7 g/dL (31.6-35.5); Mean Corpuscular Hemoglobin 29.5 pg (28.0-33.3); Mean Corpuscular Volume 92.8 fL (83.0-100.0); Mean Platelet Volume 9.9 fL (9.4-12.4); Platelet Count 163 K/mcL (140-400); Red Blood Count 2.92 M/mcL (3.82-4.97); Red Cell Distribution Width 20.4 % (11.5-14.5)
[2018-04-24 03:57] LABS: Calcium 7.7 mg/dL (8.6-10.3); Potassium 3.7 mEq/L (3.5-5.1)
[2018-04-24] MEDS: Budesonide/Formoterol 160/4.5 MDI IH SCH ×2 (08:13→20:04)
--- NOTE | 2018-04-24 08:48 | Nephrology Progress Note ---
Date of Encounter: 04/24/18 Time of Encounter: 08:48 - Assessment and Plan (1) Chronic kidney disease, stage IV (severe) Current Visit: Yes Status: Chronic The patient renal function appears to be relatively stable. Continue to monitor. If her renal function remains stable may be able to safely add her loop diuretic to improve her edema. (2) Hydronephrosis Current Visit: Yes Status: Acute Qualifiers: Hydronephrosis type: other Qualified Code(s): N13.39 - Other hydronephrosis Subjective Principal diagnosis: Abdominal Pain Interval history: Patient seen and evaluated. She denies any new complaints. Objective - Vital Signs Vital signs: Vital Signs Temp Pulse Resp BP Pulse Ox 04/24/18 08:14 16 100 04/24/18 06:32 98.1 F 79 16 111/59 98 04/24/18 03:26 97.8 F 80 15 101/65 97 04/23/18 20:19 16 99 04/23/18 18:50 97.3 F L 91 15 98/73 97 04/23/18 17:40 97.7 F 92 18 113/71 96 04/23/18 13:00 97.4 F L 95 18 133/95 97 Intake and Output 04/23/18 04/24/18 04/24/18 23:59 07:59 15:59 Intake Total 92 / 92 100 / 100 Output Total 25 / 25 190 / 190 Balance 67 / 67 -90 / -90 Intake: IV Fluids 20 / 20 Rocephin 2,000 MG In Water for 20 / 20 inj. (sterile) 20 ML @ 600 mls/ hr IVP Q24H [facility] Rx#:[id number] Oral 72 / 72 100 / 100 Output: Catheter 150 / 150 Wound Drainage 25 / 25 40 / 40 Left paracentesis drain 0 / 0 Medial Abdomen 25 / 25 40 / 40 Other: Meal Dinner Percent of Meal Consumed 5% Weight 108.6 kg Patient Weight 04/24/18 23:59 Weight 108.6 kg - General Appearance General appearance: Present: well-developed, well-nourished EENT: Present: ATNC Cardiology: Present: edema, regular rate Gastrointestinal: Present: obese Integumentary: Present: warm and dry Neurologic: Present: alert and oriented x3 Additional Comments: Blind. Psychiatric: Present: mood/affect appropriate - Lab 04/24/18 03:05 04/24/18 03:05 Most recent lab results Calcium 7.7 mg/dL (8.6-10.3) L 04/24/18 03:05 Phosphorus 2.8 mg/dL (2.7-4.5) 04/20/18 03:10 Magnesium 1.8 mg/dL (1.6-2.6) 04/23/18 03:24 Urine Creatinine 89 mg/dL 03/31/18 19:50 Urine Sodium 16.5 mEq/L 03/31/18 19:50 Urine Total Protein 26 mg/dL (1-14) H 03/31/18 19:50 - VTE Documentation of Mechanical Device: Intermittent pneumatic compression device Consult Discharge Plan - Plan Referrals: Lokesh Cooper MD [Primary Care Provider] - Grace Hicks MD [Partnered Physician] - 05/12/18 1:50 pm
[2018-04-24] MEDS: Aspirin Enteric Coated 81 MG Tablet PO SCH (11:16)
[2018-04-24] MEDS: Lactobacillus 1 EACH CAP.SPRINK PO SCH ×2 (11:16→20:37)
[2018-04-24] MEDS: Acetaminophen 325 MG TABLET PO PRN (11:16)
[2018-04-24] MEDS: Fluticasone Propionate Nasal 50 MCG/SPRAY BOTTLE NS SCH (11:17)
[2018-04-24] MEDS: Loratadine 10 MG TABLET PO SCH (11:17)
[2018-04-24] MEDS: Nystatin POWDER 30 GM BOTTLE TP SCH ×4 (11:17→21:27)
[2018-04-24] MEDS: *HR* Amiodarone 200 MG TABLET PO SCH (11:17)
[2018-04-24] MEDS: metroNIDAZOLE 500 MG TABLET PO SCH ×3 (11:17→20:37)
--- NOTE | 2018-04-24 14:46 | Internal Med Progress Note ---
Hospitalist Progress Note - Encounter Date of Encounter: 04/24/18 Time of Encounter: 09:00 - Subjective Interval History: patient was seen and examined at bedside. has had no over night events. remains afebrile. is OOB to chair daily for meals which she enjoys she denies any pain at the incision currently, reports that the diarrhea she had a few days ago has resolved. denies nausea or vomiting denies fever, chills, chest pain, palpitations, SOB. - Exam Vitals: Temp Pulse Resp BP Pulse Ox 97.8 F 86 16 102/68 96 04/24/18 14:19 04/24/18 14:19 04/24/18 14:19 04/24/18 14:19 04/24/18 14:19 Exam: Constitutional: No acute distress, Alert, Anasarca, obese HEENT: NCAT, legally blind, poor dentition, external ears normal. Neck: supple, no JVD Cardio: regular rate and rhythm, 2/6 systolic murmur Resp: Decreased breath sounds in bases 2/2 habitus Abd: soft, obese, BS+ve, new drain placed above umblicus dressing has minimal blood drainage. KARAN drain has yellow fluid about 30 cc Extremities: +2 anasarca of all extremities, there is ecchymosis on the anterior shins. PICC in RUE with no erythema, ecchymosis on left hand Neuro: Moves extremities symmetrically, notable chronic weakness in the lower extremities - at baseline Psych: AAO x 3, affect is appropriate - Assessment and Plan (1) Abdominal pain Current Visit: Yes Status: Acute Assessment and Plan: Pt with infected abdominal hematoma/abcess; with hx of recent appendectomy 2 weeks prior to admission -repeat CT done 04/19 compared to 04/12 shows :Complex large abscess in the lower abdomen and pelvis. Unchanged appearance of the percutaneous drainage catheter. Only slight decrease in size of the large abscess compared to prior examination possibly secondary to multiloculation. Large amount of fluid remains in the abscess. -cultures from 04/10 from the the abdominal hematoma drain with 2 strains of Escherichia coli/staph epidermidis/enteroccocus faecium -General surgery following -S/P new drain placement by IR on 04/19/18- cultures growing E.coli -Infectious disease following will continue IV Flagyl; IV vanco and now started on ceftriaxone as per ID -fungal cx ordered -Diarrhea improved and C. difficile is negative -previous hydronephrosis not appreciated on CT done 04/19 - will continue to follow renal function and adjust Abx - leukocytosis- resolved / clinically doing better. -Duration of treatment depends on the clinical picture, but likely a total of 4 weeks from the placement of the second drain, through 05/17/18 -CT scan before the patient is due to finish her antibiotics and make further recommendations at that time. -as per ID - Due to the patient's CKD, she may need to have a tunneled PICC placed prior to discharge. ID to discuss with the VAT Will need weekly CBC, BUN/Cr, ESR, CRP, and Vanc trough. on discharge Will need weekly PICC care per protocol. on discharge Follow up with ID 05/12/18 at 1350. nephrology was consulted (2) Atrial fibrillation Current Visit: Yes Status: Chronic Assessment and Plan: currently on Amidarone, BB and ASA not on AC Heart rate remains controlled patient will not tolerate anticoagulation therapy vitals as per protocol (3) Anemia Current Visit: Yes Status: Chronic Assessment and Plan: will continue to monitor patients H/H with daily CBC H/H stable above 8 (4) Chronic kidney disease, stage IV (severe) Current Visit: Yes Status: Chronic Assessment and Plan: Stage IV chronic kidney disease; Baseline SCr appears to be anywhere between 1.7 -2.5 with wide variation as per previous documentation L kidney is atrophic; repeat CT scan on 04/19 revealed no evidence of hydronephrosis previously seen Urology has signed off the patient developed hydronephrosis again place ureteral stent BMP on 04/22/18 shows that creatinine has trended up - will continue to hold will follow BMP in AM renally dose medications and avoid nephrotoxins nephrology consulted will follow recommendations renal US ordered continue to follow I/O (5) Anasarca Current Visit: Yes Status: Acute Assessment and Plan: hold lasix and follow BMP in the AM as she has anasarca. nutrition following will follow recommendations Out of bed to chair during meals . (6) Acute thrombosis of cephalic vein Current Visit: Yes Status: Acute Assessment and Plan: Left upper extremity swelling was noted and ultrasound was performed which revealed acute superficial venous thrombosis of the left cephalic vein. Due to the patient's current intra-abdominal hematoma and superficial nature anticoagulation will not be started. We will monitor. Continue to apply warm compress to the left upper extremity (7) Diarrhea Current Visit: Yes Status: Resolved Assessment and Plan: Diarrhea resolved, likely secondary to antibiotic C. difficile was sent last week and negative probiotics increased to twice per day as per ID recs all the stool softeners were discontinued (8) Hypokalemia Current Visit: Yes Status: Acute Assessment and Plan: resolved (9) DVT prophylaxis Current Visit: Yes Status: Acute Assessment and Plan: on scds as the drain site showed minimal bleeding DVT Prophylaxis: scds - Time Spent with Patient Total time spent is greater than 50% in coordination of care (as documented) at patient's floor/unit and/or counseling patient: Plan of Care Discussed with: patient Internal Medicine: Result - Labs CBC & Chem 7: 04/24/18 03:05 04/24/18 03:05 Labs: Short CBC 04/24/18 Range/Units 03:05 WBC 8.1 (4.3-11.1) K/mcL Hgb 8.6 L (11.5-15.4) g/dL Hct 27.1 L (35.3-44.9) % Plt Count 163 (140-400) K/mcL BMP 04/24/18 03:05 Sodium 135 L Potassium 3.7 Chloride 107 Carbon Dioxide 20 L BUN 30 H Creatinine 2.17 H Glucose 89 Calcium 7.7 L - ABG Interpretation ABG results: PT/INR, D-dimer PT 14.8 Seconds (9.4-12.1) H 04/20/18 09:45 - Impressions Impressions Retroperitoneum Ultrasound 04/23/18 16:30 IMPRESSION: 1. The partially visualized right kidney appears grossly unremarkable with no evidence for hydronephrosis. 2. Nonvisualization of the left kidney. 3. Nonvisualization of the bladder secondary to large complex fluid collection within the abdomen measuring approximately 9.3 x 15.9 x 8 cm. Drainage catheter in place. D/ / Jf Braden MD / Jf Braden MD Interpreting Provider: Jf Braden MD - VTE Documentation of Mechanical Device: Intermittent pneumatic compression device Consult Discharge Plan - Plan Referrals: Lokesh Cooper MD [Primary Care Provider] - Grace Hicks MD [Partnered Physician] - 05/12/18 1:50 pm (1) Abdominal pain Qualifiers: Abdominal location: unspecified location Qualified Code(s): R10.9 - Unspecified abdominal pain (3) Anemia Qualifiers: Anemia type: other cause Other causes of anemia: chronic disease, other Qualified Code(s): D63.8 - Anemia in other chronic diseases classified elsewhere (6) Acute thrombosis of cephalic vein Qualifiers: Laterality: left Qualified Code(s): I82.612 - Acute embolism and thrombosis of superficial veins of left upper extremity (7) Diarrhea Qualifiers: Diarrhea type: unspecified type Qualified Code(s): R19.7 - Diarrhea, unspecified
[2018-04-24] MEDS: cefTRIAXone 2,000 MG in Water for inj. (sterile) 20 ML 20 ML IVP SCH (17:48)
[2018-04-24] MEDS: *HR* Morphine Soln 10 MG/5 ML UDC PO PRN (17:48)
[2018-04-25] MEDS: *HR* Morphine Soln 10 MG/5 ML UDC PO PRN (03:48)
[2018-04-25 04:48] LABS: Basophils % 0.3 %; Eosinophils # 0.1 K/mcL (0.0-0.6); Eosinophils % 1.8 %; Hematocrit 26.8 % (35.3-44.9); Hemoglobin 8.4 g/dL (11.5-15.4); Immature Granulocytes % 2.2 % (0-4); Lymphocytes # 0.7 K/mcL (0.6-4.6); Lymphocytes % 9.7 %; Mean Corpuscular HGB Conc 31.3 g/dL (31.6-35.5); Mean Corpuscular Hemoglobin 28.8 pg (28.0-33.3); Mean Corpuscular Volume 91.8 fL (83.0-100.0); Mean Platelet Volume 10.1 fL (9.4-12.4); Monocytes # 0.4 K/mcL (0.0-1.3); Monocytes % 5.5 %; Neutrophils # 6.1 K/mcL (1.6-8.9); Platelet Count 165 K/mcL (140-400); Red Blood Count 2.92 M/mcL (3.82-4.97); Red Cell Distribution Width 20.6 % (11.5-14.5); Segmented Neutrophils % 80.5 %
[2018-04-25 04:53] LABS: Potassium 3.5 mEq/L (3.5-5.1)
[2018-04-25] MEDS: Ipratropium/Albuterol Neb 3 ML IH PRN ×2 (05:40→10:00)
[2018-04-25] MEDS ORDERED: Vancomycin 500 MG in 0.9 % Sodium Chloride Mini Bag 100 ML IVPB ONE (07:00)
[2018-04-25] MEDS: Budesonide/Formoterol 160/4.5 MDI IH SCH ×2 (08:12→22:55)
[2018-04-25] MEDS: Acetaminophen 325 MG TABLET PO PRN ×2 (08:22→19:53)
[2018-04-25] MEDS: *HR* Amiodarone 200 MG TABLET PO SCH (08:22)
[2018-04-25] MEDS: metroNIDAZOLE 500 MG TABLET PO SCH ×3 (08:22→20:01)
[2018-04-25] MEDS: Lactobacillus 1 EACH CAP.SPRINK PO SCH ×2 (08:22→20:01)
[2018-04-25] MEDS: Aspirin Enteric Coated 81 MG Tablet PO SCH (08:22)
[2018-04-25] MEDS: Fluticasone Propionate Nasal 50 MCG/SPRAY BOTTLE NS SCH (08:23)
[2018-04-25] MEDS: Nystatin POWDER 30 GM BOTTLE TP SCH ×3 (08:24→20:02)
--- NOTE | 2018-04-25 11:23 | Internal Med Progress Note ---
Hospitalist Progress Note - Encounter Date of Encounter: 04/25/18 Time of Encounter: 07:15 - Subjective Interval History: patient was seen and examined at bedside. has had no over night events. remains afebrile. is OOB to chair daily for meals which she enjoys pain is controlled, no N/v/D tolerating PO diet denies fever, chills, chest pain, palpitations, SOB. - Exam Vitals: Temp Pulse Resp BP Pulse Ox 98.1 F 95 16 114/71 97 04/25/18 10:31 04/25/18 10:31 04/25/18 10:31 04/25/18 10:31 04/25/18 10:31 Exam: Constitutional: No acute distress, Alert, Anasarca, obese HEENT: NCAT, legally blind, poor dentition, external ears normal. Neck: supple, no JVD Cardio: regular rate and rhythm, 2/6 systolic murmur Resp: Decreased breath sounds in bases 2/2 habitus Abd: soft, obese, BS+ve, new drain placed above umblicus dressing has minimal blood drainage. KARAN drain has yellow fluid about 30 cc Extremities: +2 anasarca of all extremities, there is ecchymosis on the anterior shins. PICC in RUE with no erythema, ecchymosis on left hand Neuro: Moves extremities symmetrically, notable chronic weakness in the lower extremities - at baseline Psych: AAO x 3, affect is appropriate - Assessment and Plan (1) Abdominal pain Current Visit: Yes Status: Acute Assessment and Plan: Pt with infected abdominal hematoma/abcess; with hx of recent appendectomy 2 weeks prior to admission -repeat CT done 04/19 compared to 04/12 shows :Complex large abscess in the lower abdomen and pelvis. Unchanged appearance of the percutaneous drainage catheter. Only slight decrease in size of the large abscess compared to prior examination possibly secondary to multiloculation. Large amount of fluid remains in the abscess. -cultures from 04/10 from the the abdominal hematoma drain with 2 strains of Escherichia coli/staph epidermidis/enteroccocus faecium -General surgery following -S/P new drain placement by IR on 04/19/18- cultures growing E.coli -Infectious disease following will continue IV Flagyl; IV vanco and now started on ceftriaxone as per ID -fungal cx ordered -Diarrhea improved and C. difficile is negative -previous hydronephrosis not appreciated on CT done 04/19 - will continue to follow renal function and adjust Abx - leukocytosis- resolved / clinically doing better. -Duration of treatment depends on the clinical picture, but likely a total of 4 weeks from the placement of the second drain, through 05/17/18 -CT scan before the patient is due to finish her antibiotics and make further recommendations at that time. -as per ID - Due to the patient's CKD, she may need to have a tunneled PICC placed prior to discharge. ID to discuss with the VAT Will need weekly CBC, BUN/Cr, ESR, CRP, and Vanc trough. on discharge Will need weekly PICC care per protocol. on discharge Follow up with ID 05/12/18 at 1350. nephrology was consulted will follow uyp With ID, nephrology and social work in the AM (2) Atrial fibrillation Current Visit: Yes Status: Chronic Assessment and Plan: currently on Amidarone, BB and ASA not on AC Heart rate remains controlled patient will not tolerate anticoagulation therapy vitals as per protocol (3) Anemia Current Visit: Yes Status: Chronic Assessment and Plan: will continue to monitor patients H/H with daily CBC H/H stable above 8 (4) Chronic kidney disease, stage IV (severe) Current Visit: Yes Status: Chronic Assessment and Plan: Stage IV chronic kidney disease; Baseline SCr appears to be anywhere between 1.7 -2.5 with wide variation as per previous documentation L kidney is atrophic; repeat CT scan on 04/19 revealed no evidence of hydronephrosis previously seen Urology has signed off the patient developed hydronephrosis again place ureteral stent BMP on 04/22/18 shows that creatinine has trended up - will continue to hold lasix will follow BMP in AM renally dose medications and avoid nephrotoxins nephrology consulted will follow recommendations continue to follow I/O (5) Anasarca Current Visit: Yes Status: Acute Assessment and Plan: hold lasix and follow BMP in the AM as she has anasarca. nutrition following will follow recommendations Out of bed to chair during meals . (6) Acute thrombosis of cephalic vein Current Visit: Yes Status: Acute Assessment and Plan: Left upper extremity swelling was noted and ultrasound was performed which revealed acute superficial venous thrombosis of the left cephalic vein. Due to the patient's current intra-abdominal hematoma and superficial nature anticoagulation will not be started. We will monitor. Continue to apply warm compress to the left upper extremity (7) Diarrhea Current Visit: Yes Status: Resolved Assessment and Plan: Diarrhea resolved, likely secondary to antibiotic C. difficile was sent last week and negative probiotics increased to twice per day as per ID recs all the stool softeners were discontinued (8) Hypokalemia Current Visit: Yes Status: Resolved Assessment and Plan: resolved (9) DVT prophylaxis Current Visit: Yes Status: Acute Assessment and Plan: on scds as the drain site showed minimal bleeding DVT Prophylaxis: as above - Time Spent with Patient Total time spent is greater than 50% in coordination of care (as documented) at patient's floor/unit and/or counseling patient: Plan of Care Discussed with: patient Internal Medicine: Result - Labs CBC & Chem 7: 04/25/18 04:00 04/25/18 04:00 Labs: Short CBC 04/25/18 Range/Units 04:00 WBC 7.6 (4.3-11.1) K/mcL Hgb 8.4 L (11.5-15.4) g/dL Hct 26.8 L (35.3-44.9) % Plt Count 165 (140-400) K/mcL Neutrophils # 6.1 (1.6-8.9) K/mcL BMP 04/25/18 04:00 Sodium 136 Potassium 3.5 Chloride 107 Carbon Dioxide 22 L BUN 28 H Creatinine 2.26 H Glucose 88 Calcium 8.0 L - ABG Interpretation ABG results: PT/INR, D-dimer PT 14.8 Seconds (9.4-12.1) H 04/20/18 09:45 - VTE Documentation of Mechanical Device: Intermittent pneumatic compression device Consult Discharge Plan - Plan Referrals: Lokesh Cooper MD [Primary Care Provider] - Grace Hicks MD [Partnered Physician] - 05/12/18 1:50 pm (1) Abdominal pain Qualifiers: Abdominal location: unspecified location Qualified Code(s): R10.9 - Unspecified abdominal pain (2) Atrial fibrillation Qualifiers: Atrial fibrillation type: chronic Qualified Code(s): I48.2 - Chronic atrial fibrillation (3) Anemia Qualifiers: Anemia type: other cause Other causes of anemia: chronic disease, other Qualified Code(s): D63.8 - Anemia in other chronic diseases classified elsewhere (6) Acute thrombosis of cephalic vein Qualifiers: Laterality: left Qualified Code(s): I82.612 - Acute embolism and thrombosis of superficial veins of left upper extremity (7) Diarrhea Qualifiers: Diarrhea type: unspecified type Qualified Code(s): R19.7 - Diarrhea, unspecified
[2018-04-25] MEDS: Ondansetron ODT 4 MG TAB.RAPDIS PO PRN (12:52)
[2018-04-25] MEDS: cefTRIAXone 2,000 MG in Water for inj. (sterile) 20 ML 20 ML IVP SCH (15:02)
[2018-04-26] MEDS: *HR* Morphine Soln 10 MG/5 ML UDC PO PRN (03:44)
[2018-04-26 05:04] LABS: Basophils % 0.1 %; Eosinophils # 0.2 K/mcL (0.0-0.6); Eosinophils % 2.2 %; Hematocrit 26.8 % (35.3-44.9); Hemoglobin 8.3 g/dL (11.5-15.4); Immature Granulocytes % 2.2 % (0-4); Lymphocytes # 0.6 K/mcL (0.6-4.6); Lymphocytes % 9.4 %; Mean Corpuscular Hemoglobin 28.5 pg (28.0-33.3); Mean Corpuscular Volume 92.1 fL (83.0-100.0); Mean Platelet Volume 10.3 fL (9.4-12.4); Monocytes # 0.4 K/mcL (0.0-1.3); Monocytes % 6.1 %; Neutrophils # 5.3 K/mcL (1.6-8.9); Platelet Count 171 K/mcL (140-400); Red Blood Count 2.91 M/mcL (3.82-4.97); Red Cell Distribution Width 21.1 % (11.5-14.5)
[2018-04-26 05:19] LABS: Potassium 3.5 mEq/L (3.5-5.1)
[2018-04-26] MEDS: Budesonide/Formoterol 160/4.5 MDI IH SCH ×2 (08:05→19:58)
--- NOTE | 2018-04-26 08:57 | Nephrology Progress Note ---
Date of Encounter: 04/26/18 Time of Encounter: 08:48 - Assessment and Plan (1) Chronic kidney disease, stage IV (severe) Current Visit: Yes Status: Chronic Scr is 2.3 today up from 2.26. Uop was 850 yesterday 250 already today. Baseline SCR appears to be 1.8-2.5 and GFR appears to be 20-25. For outpatient antibiotic administration I would recommend a Tunneled Picc Line to be placed by IR. A powerwand or midline or regular Picc line is not recommended due to her CKD IV. When ready to be d/osbaldo would recommend placing IR consult, making patient NPO at midnight the day before procedure. The only other recommendation to avoid a Tunneled line is to speak with her Supervisor Steffen House Dr. Bustos to see if he would be okay with an extended peripheral IV. Would recommend starting 40 MG PO Lasix daily to help with edema, discussed with Dr. Souza. (2) Hydronephrosis Current Visit: Yes Status: Acute Appears resolved with Parks Cath. Would recommend voiding trial to see if she can void without Parks cath. Qualifiers: Hydronephrosis type: other Qualified Code(s): N13.39 - Other hydronephrosis (3) Anemia Current Visit: Yes Status: Acute Goal Hgb is 10-11. Hgb is 8.3 today. Will do iron profile. Qualifiers: Qualified Code(s): D64.9 - Anemia, unspecified Subjective Principal diagnosis: Abdominal Pain Interval history: Pt seen and examined.NAD. C/O of pain around Parks catheter, clear urine noted in Parks bag. Objective - Vital Signs Vital signs: Vital Signs Temp Pulse Resp BP Pulse Ox 04/26/18 08:05 16 98 04/26/18 06:55 98.0 F 79 16 136/79 97 04/26/18 04:50 97.7 F 92 14 116/74 98 04/26/18 03:38 97.7 F 93 16 109/71 95 04/26/18 00:16 98.2 F 92 14 133/73 97 04/25/18 22:55 16 97 04/25/18 20:12 97 04/25/18 18:42 97.9 F 91 15 100/72 97 04/25/18 16:11 98.2 F 94 15 117/70 95 04/25/18 10:31 98.1 F 95 16 114/71 97 04/25/18 10:00 16 97 Intake and Output 04/25/18 04/26/18 04/26/18 23:59 07:59 15:59 Intake Total 120 / 120 0 / 0 Output Total 400 / 400 250 / 250 Balance -280 / -280 -250 / -250 Intake: Oral 120 / 120 0 / 0 Output: Catheter 400 / 400 250 / 250 Other: # Bowel Movements 0 0 Weight 110.2 kg Patient Weight 04/26/18 23:59 Weight 110.2 kg - General Appearance General appearance: Present: well-developed, well-nourished EENT: Present: ATNC, hearing intact Neck: Present: supple Respiratory: Present: clear Cardiology: Present: edema (+2 pitting edema noted to all extremities.), normal S1, normal S2 Gastrointestinal: Present: normoactive bowel sounds, no tenderness, no guarding Integumentary: Present: no rash, warm and dry Neurologic: Present: alert and oriented x3 Psychiatric: Present: mood/affect appropriate, cooperative - Lab 04/26/18 04:34 04/26/18 04:34 Most recent lab results Calcium 8.0 mg/dL (8.6-10.3) L 04/26/18 04:34 Phosphorus 2.8 mg/dL (2.7-4.5) 04/20/18 03:10 Magnesium 1.8 mg/dL (1.6-2.6) 04/23/18 03:24 Urine Creatinine 89 mg/dL 03/31/18 19:50 Urine Sodium 16.5 mEq/L 03/31/18 19:50 Urine Total Protein 26 mg/dL (1-14) H 03/31/18 19:50 - VTE Documentation of Mechanical Device: Intermittent pneumatic compression device Consult Discharge Plan - Plan Referrals: Lokesh Cooper MD [Primary Care Provider] - Grace Hicks MD [Partnered Physician] - 05/12/18 1:50 pm
--- NOTE | 2018-04-26 09:05 | Internal Med Progress Note ---
Hospitalist Progress Note - Encounter Date of Encounter: 04/26/18 Time of Encounter: 07:45 - Subjective Interval History: patient was seen and examined at bedside. has had no over night events. remains afebrile. is OOB to chair daily for meals which she enjoys pain is controlled, no N/v/D tolerating PO diet denies fever, chills, chest pain, palpitations, SOB. - Exam Vitals: Temp Pulse Resp BP Pulse Ox 98.0 F 79 16 136/79 98 04/26/18 06:55 04/26/18 06:55 04/26/18 08:05 04/26/18 06:55 04/26/18 08:05 Exam: Constitutional: No acute distress, Alert, Anasarca, obese HEENT: NCAT, legally blind, poor dentition, external ears normal. Neck: supple, no JVD Cardio: regular rate and rhythm, 2/6 systolic murmur Resp: Decreased breath sounds in bases 2/2 habitus Abd: soft, obese, BS+ve, new drain placed above umblicus dressing has minimal blood drainage. KARAN drain has yellow fluid about 30 cc Extremities: +2 anasarca of all extremities, there is ecchymosis on the anterior shins. PICC in RUE with no erythema, ecchymosis on left hand Neuro: Moves extremities symmetrically, notable chronic weakness in the lower extremities - at baseline Psych: AAO x 3, affect is appropriate - Assessment and Plan (1) Abdominal pain Current Visit: Yes Status: Acute Assessment and Plan: Pt with infected abdominal hematoma/abcess; with hx of recent appendectomy 2 weeks prior to admission -repeat CT done 04/19 compared to 04/12 shows :Complex large abscess in the lower abdomen and pelvis. Unchanged appearance of the percutaneous drainage catheter. Only slight decrease in size of the large abscess compared to prior examination possibly secondary to multiloculation. Large amount of fluid remains in the abscess. -cultures from 04/10 from the the abdominal hematoma drain with 2 strains of Escherichia coli/staph epidermidis/enteroccocus faecium -General surgery following -S/P new drain placement by IR on 04/19/18- cultures growing E.coli -Infectious disease following will continue IV Flagyl; IV vanco and now started on ceftriaxone as per ID -fungal cx ordered -Diarrhea improved and C. difficile is negative -previous hydronephrosis not appreciated on CT done 04/19 - will continue to follow renal function and adjust Abx - leukocytosis- resolved / clinically doing better. -Duration of treatment depends on the clinical picture, but likely a total of 4 weeks from the placement of the second drain, through 05/17/18 -CT scan before the patient is due to finish her antibiotics and make further recommendations at that time. -as per ID - Due to the patient's CKD, she may need to have a tunneled PICC placed prior to discharge. ID to discuss with the VAT Will need weekly CBC, BUN/Cr, ESR, CRP, and Vanc trough. on discharge Will need weekly PICC care per protocol. on discharge Follow up with ID 05/12/18 at 1350. nephrology was consulted and recommend tunneled Picc line on 04/26/18 will speak to SW about placement LTAC vs ECF (2) Atrial fibrillation Current Visit: Yes Status: Chronic Assessment and Plan: currently on Amidarone, BB and ASA not on AC Heart rate remains controlled patient will not tolerate anticoagulation therapy vitals as per protocol (3) Anemia Current Visit: Yes Status: Chronic Assessment and Plan: will continue to monitor patients H/H H/H stable above 8 (4) Chronic kidney disease, stage IV (severe) Current Visit: Yes Status: Chronic Assessment and Plan: Stage IV chronic kidney disease; Baseline SCr appears to be anywhere between 1.7 -2.5 with wide variation as per previous documentation L kidney is atrophic; repeat CT scan on 04/19 revealed no evidence of hydronephrosis previously seen Urology has signed off the patient developed hydronephrosis again place ureteral stent BMP shows Cr at about the baseline - will restart lasix 40 mg Po qday - discussed with nephrology will follow BMP in AM renally dose medications and avoid nephrotoxins nephrology recommendations appreciated continue to follow I/O (5) Anasarca Current Visit: Yes Status: Acute Assessment and Plan: starte dlasix 40 mg PO nutrition following will follow recommendations Out of bed to chair during meals . (6) Acute thrombosis of cephalic vein Current Visit: Yes Status: Acute Assessment and Plan: Left upper extremity swelling was noted and ultrasound was performed which revealed acute superficial venous thrombosis of the left cephalic vein. Due to the patient's current intra-abdominal hematoma and superficial nature anticoagulation will not be started. We will monitor. Continue to apply warm compress to the left upper extremity (7) Diarrhea Current Visit: Yes Status: Resolved Assessment and Plan: Diarrhea resolved, likely secondary to antibiotic C. difficile was sent last week and negative probiotics increased to twice per day as per ID recs all the stool softeners were discontinued (8) DVT prophylaxis Current Visit: Yes Status: Acute DVT Prophylaxis: as per above - Time Spent with Patient Total time spent is greater than 50% in coordination of care (as documented) at patient's floor/unit and/or counseling patient: 25 - 35 minutes Plan of Care Discussed with: patient Internal Medicine: Result - Labs CBC & Chem 7: 04/26/18 04:34 04/26/18 04:34 Labs: Short CBC 04/26/18 Range/Units 04:34 WBC 6.7 (4.3-11.1) K/mcL Hgb 8.3 L (11.5-15.4) g/dL Hct 26.8 L (35.3-44.9) % Plt Count 171 (140-400) K/mcL Neutrophils # 5.3 (1.6-8.9) K/mcL BMP 04/26/18 04:34 Sodium 136 Potassium 3.5 Chloride 107 Carbon Dioxide 21 L BUN 27 H Creatinine 2.30 H Glucose 90 Calcium 8.0 L - ABG Interpretation ABG results: PT/INR, D-dimer PT 14.8 Seconds (9.4-12.1) H 04/20/18 09:45 - VTE Documentation of Mechanical Device: Intermittent pneumatic compression device Consult Discharge Plan - Plan Referrals: Lokesh Cooper MD [Primary Care Provider] - Grace Hicks MD [Partnered Physician] - 05/12/18 1:50 pm (1) Abdominal pain Qualifiers: Abdominal location: unspecified location Qualified Code(s): R10.9 - Unspecified abdominal pain (2) Atrial fibrillation Qualifiers: Atrial fibrillation type: chronic Qualified Code(s): I48.2 - Chronic atrial fibrillation (3) Anemia Qualifiers: Anemia type: other cause Other causes of anemia: chronic disease, other Qualified Code(s): D63.8 - Anemia in other chronic diseases classified elsewhere (6) Acute thrombosis of cephalic vein Qualifiers: Laterality: left Qualified Code(s): I82.612 - Acute embolism and thrombosis of superficial veins of left upper extremity (7) Diarrhea Qualifiers: Diarrhea type: unspecified type Qualified Code(s): R19.7 - Diarrhea, unspecified
[2018-04-26] MEDS: Lactobacillus 1 EACH CAP.SPRINK PO SCH ×2 (10:01→20:29)
[2018-04-26] MEDS: *HR* Amiodarone 200 MG TABLET PO SCH (10:01)
[2018-04-26] MEDS: Loratadine 10 MG TABLET PO SCH (10:01)
[2018-04-26] MEDS: Aspirin Enteric Coated 81 MG Tablet PO SCH (10:01)
[2018-04-26] MEDS: metroNIDAZOLE 500 MG TABLET PO SCH ×3 (10:01→20:29)
[2018-04-26] MEDS: Fluticasone Propionate Nasal 50 MCG/SPRAY BOTTLE NS SCH (10:02)
[2018-04-26] MEDS: Nystatin POWDER 30 GM BOTTLE TP SCH ×3 (10:03→20:30)
[2018-04-26] MEDS: Furosemide 40 MG TABLET PO SCH (10:07)
--- NOTE | 2018-04-26 11:13 | Infectious Disease Progress No ---
Date of Encounter: 04/26/18 Time of Encounter: 11:11 - Assessment and Plan (1) Leukocytosis Current Visit: Yes Status: Acute Likely secondary to infected hematoma. Resolved. Continue to trend. Qualifiers: Leukocytosis type: unspecified Qualified Code(s): D72.829 - Elevated white blood cell count, unspecified (2) Infected hematoma following procedure Current Visit: Yes Status: Acute Causative organism: S. epi, E. coli x 2, and Enterococcus faecium. Additional culture obtained with new drain placement grew E. coli. CT scan completed 03/29/2018 showed moderate volume of fluid in the pelvis and along the mesentery with subacute blood. Repeat CT of the abdomen and pelvis completed 04/01/18 showed a complex fluid collection within the pelvis, here unchanged in size and the density continued to decrease making the finding concerning for an organizing hematoma, although there was suggestion of possible capsule formation, and the possibility of an abscess should be considered. She also had some increasing right-sided hydronephrosis, but presumably from compression of the distal right ureteral compression. Status post CT-guided placement of abdominal abscess drainage catheter on by interventional radiology. No cultures were obtained at the time of catheter placement, but pathology was negative for malignancy. Culture obtained on 04/10/18 positive for and or coccus fascia, staph epi, and 2 strains of Escherichia coli. Repeat CT scan on 04/12/18 showed a large complex appearing fluid collection likely representing an abscess measuring approximately 17 x 11 x 8 cm in size and appears somewhat decreased in size when compared to the previous examination , however a large amount of fluid remained. Additional repeat CAT scan completed 04/19/18 showed complex large abscess in the lower abdomen and pelvis, unchanged in appearance and only slightly decreased in the size of the large abscess compared to prior examination, possibly secondary to multi loculation with a large amount of fluid remaining in the abscess. Gen. surgery continues to follow. New drain placed in the abscess 04/19/18. Large complex fluid collection noted to hbe obscuring the view of the bladder on RP UTS last week. Repeat CT scan now with PO contrast. Clinically, the patient is improved. Her white blood cell count has normalized. Continue vancomycin IV. Pharmacy to dose. Goal trough approximately 15. Continue Rocephin 2 grams IV daily. Continue Flagyl 500 mg PO TID. Duration of treatment depends on the clinical picture, but likely a total of 4 weeks from the placement of the second drain, through 05/17/18. Will plan to repeat CT scan before the patient is due to finish her antibiotics and make further recommendations at that time. Monitor renal function and for drug toxicity and dose adjust antibiotics. Due to the patient's CKD, she will need a tunneled PICC line placed per IR prior to discharge. Will need weekly CBC, BUN/Cr, ESR, CRP, and Vanc trough. Will need weekly PICC care per protocol. Follow up with ID 05/12/18 at 1350. (3) Diarrhea Current Visit: Yes Status: Resolved Etiology unclear, but likely secondary to antibiotics. C. difficile was checked last week and was negative. Continue probiotics twice a day. Resolved. Qualifiers: Diarrhea type: unspecified type Qualified Code(s): R19.7 - Diarrhea, unspecified (4) Chronic kidney disease, stage IV (severe) Current Visit: Yes Status: Chronic Serum creatinine is improved, appears to be back at baseline. Continue to trend. Dose adjust antibiotics and avoid nephrotoxins as able. Typically follows with Dr. Bustos. Nephrology consulted. - Subjective Interval history: Patient seen and examined. No acute events noted overnight. Patient states overall she feels okay. She does report some abdominal pain at the drain sites and intermittent bilateral groin pain. Denies fevers, chills, rigors. Denies chest pain, shortness of breath, or cough. Denies urinary complaints or appetite changes. Reports loose stool x 1 this morning. Denies oral thrush or new skin lesions. Infect Dis PN-Objective Data - Labs CBC & Chem 7: 04/27/18 04:00 04/27/18 04:00 Labs: Laboratory Results - last 24 hr 04/26/18 04/26/18 04:34 04:34 WBC 6.7 RBC 2.91 L Hgb 8.3 L Hct 26.8 L MCV 92.1 MCH 28.5 MCHC 31.0 L RDW 21.1 H Plt Count 171 MPV 10.3 Immature Gran % 2.2 Seg Neutrophils % 80.0 Lymphocytes % 9.4 Monocytes % 6.1 Eosinophils % 2.2 Basophils % 0.1 Neutrophils # 5.3 Lymphocytes # 0.6 Monocytes # 0.4 Eosinophils # 0.2 Basophils # 0.0 Sodium 136 Potassium 3.5 Chloride 107 Carbon Dioxide 21 L BUN 27 H Creatinine 2.30 H Est GFR ( Amer) 25 L Est GFR (Non-Af Amer) 21 L BUN/Creatinine Ratio 12 Glucose 90 Calculated Osmolality 287 Calcium 8.0 L Cultures: Cultures 04/19/18 15:21 Anaerobic Culture - Final Aspirate Anaerobic Gram Negative Cocci 04/19/18 15:21 Wound Culture - Final Abdomen Escherichia coli 04/10/18 20:55 Body Fluid Culture - Final Peritoneal Fluid Escherichia coli#2 Escherichia coli Staphylococcus epidermidis Enterococcus faecium Serology 04/23/18 04/14/18 04/05/18 Range/Units 10:46 11:25 13:15 Urine Color Yellow Yellow (Yellow) Urine Clarity Turbid A Clear (Clear) Urine pH 5.5 5.5 (5.0-8.0) pH Units Ur Specific [place] 1.023 1.020 (1.010-1.025) Urine Protein 100 H 100 H (Neg-Trace) mg/dL Urine Glucose (UA) Normal Normal (Normal) mg/dL Urine Ketones Trace H Negative (Negative) mg/dL Urine Blood Small H Moderate H (Negative) Urine Nitrite Negative Negative (Negative) Urine Bilirubin Negative Small H (Negative) Urine Urobilinogen Normal Normal (Normal) mg/dL Ur Leukocyte Esterase Large H Small H (Negative) Urine Microscopic RBC 3-5 H 5-15 H (0-3) per hpf Urine Microscopic WBC TNTC H 50-100 H (0-3) per hpf Ur Squamous Epith Cells Many H Many H (None-Few) per lpf Urine Bacteria None Seen None Seen (None-Few) per hpf Urine Yeast Many H Moderate H (None Seen) per hpf Ur Culture Indicated? NO. A (NO) Stl C. diff Tox B Gene Negative (Negative) Exam - Constitutional Vitals: Temp Pulse Resp BP Pulse Ox 98.2 F 80 16 129/80 100 04/26/18 09:00 04/26/18 09:00 04/26/18 09:00 04/26/18 09:00 04/26/18 09:00 General appearance: cooperative, morbidly obese, no acute distress - Head Head exam: Present: atraumatic, normal inspection, normocephalic - Eye Eye exam: Present: normal appearance - ENT ENT exam: Present: mucous membranes moist - Neck Neck exam: Present: normal inspection - Respiratory Respiratory exam: Present: CTAB. Absent: rales, respiratory distress, rhonchi, wheezes - Cardiovascular Cardiovascular exam: Present: RRR, +S1, +S2 - GI/Abdominal GI/Abdominal exam: Present: distended (obese), normal bowel sounds, soft, tenderness (LLQ) Additional comments: KARAN drain noted to the middle of the abdomen draining bloody/purulent drainage. LLQ drain noted to have moderate amount of dark yellow purulent drainage. Parks catheter noted to be draining clear yellow urine. - Extremities Exam Extremities exam: Present: pedal edema (2+ BLE). Absent: joint swelling, tenderness Additional comments: Anasarca noted. - Neurological Exam Neurological exam: Present: alert, oriented X3, no focal deficits - Psychiatric Psychiatric exam: Present: normal affect, normal mood - Skin Skin exam: Present: dry, intact, normal color, warm - VTE Documentation of Mechanical Device: Intermittent pneumatic compression device Consult Discharge Plan - Plan Referrals: Crystal Jimenez MD [Partnered Physician] - 05/13/18 9:55 am Lokesh Cooper MD [Primary Care Provider] - Grace Hicks MD [Partnered Physician] - 05/12/18 1:50 pm - Attending Attestation I examined this patient and my medical decision-making was reviewed with the Monica Waller CNP. I agree with the documented findings, disposition and treatment plan as described except to the extent set forth below.
[2018-04-26] MEDS: Ondansetron ODT 4 MG TAB.RAPDIS PO PRN (13:06)
[2018-04-26] MEDS: Acetaminophen 325 MG TABLET PO PRN ×2 (13:56→23:36)
--- NOTE | 2018-04-26 15:04 | Event Note ---
Date of Encounter: 04/26/18 Time of Encounter: 15:02 Drains functioning appropriately. Sites are unremarkable. Noted plans for LTAC vs ECF. If patient is d/c'd to LTAC, follow-up with Dr. Jimenez after d/c from LTAC. IF pt goes to ECF, follow-up with Dr. Jimenez in 1-2 weeks after d/c. - Patient Status Disposition: Still a Patient Condition: Undetermined - Discharge Instructions Follow Up With: Lokesh Cooper MD [Primary Care Provider] - Grace Hicks MD [Partnered Physician] - 05/12/18 1:50 pm
[2018-04-26] MEDS: cefTRIAXone 2,000 MG in Water for inj. (sterile) 20 ML 20 ML IVP SCH (16:57)
[2018-04-26] MEDS: Ipratropium/Albuterol Neb 3 ML IH PRN (19:58)
[2018-04-27 04:26] LABS: Basophils % 0.2 %; Eosinophils # 0.2 K/mcL (0.0-0.6); Eosinophils % 2.3 %; Hematocrit 27.1 % (35.3-44.9); Hemoglobin 8.6 g/dL (11.5-15.4); Immature Granulocytes % 2.2 % (0-4); Lymphocytes # 0.6 K/mcL (0.6-4.6); Lymphocytes % 9.7 %; Mean Corpuscular HGB Conc 31.7 g/dL (31.6-35.5); Mean Corpuscular Hemoglobin 29.8 pg (28.0-33.3); Mean Corpuscular Volume 93.8 fL (83.0-100.0); Monocytes # 0.4 K/mcL (0.0-1.3); Monocytes % 6.1 %; Neutrophils # 5.1 K/mcL (1.6-8.9); Platelet Count 150 K/mcL (140-400); Red Blood Count 2.89 M/mcL (3.82-4.97); Red Cell Distribution Width 20.9 % (11.5-14.5); Segmented Neutrophils % 79.5 %
[2018-04-27 04:44] LABS: Calcium 8.3 mg/dL (8.6-10.3); Potassium 3.4 mEq/L (3.5-5.1)
[2018-04-27 04:48] LABS: % Iron Saturation 27 % (15-50); Iron 36 mcg/dL (50-170); Transferrin 94 mg/dL (203-362)
[2018-04-27 05:04] LABS: Ferritin 668 ng/mL (10-120)
[2018-04-27 05:10] LABS: Folate 5.8 ng/mL (3.0-16.0)
[2018-04-27] MEDS ORDERED: Vancomycin 500 MG in 0.9 % Sodium Chloride Mini Bag 100 ML IVPB ONE (07:00)
[2018-04-27] MEDS: Budesonide/Formoterol 160/4.5 MDI IH SCH ×2 (08:07→22:29)
[2018-04-27] MEDS: Aspirin Enteric Coated 81 MG Tablet PO SCH (09:44)
[2018-04-27] MEDS: metroNIDAZOLE 500 MG TABLET PO SCH ×3 (09:48→21:16)
[2018-04-27] MEDS: Lactobacillus 1 EACH CAP.SPRINK PO SCH ×2 (09:48→21:16)
[2018-04-27] MEDS: *HR* Amiodarone 200 MG TABLET PO SCH (09:48)
[2018-04-27] MEDS: Furosemide 40 MG TABLET PO SCH (09:48)
[2018-04-27] MEDS: Nystatin POWDER 30 GM BOTTLE TP SCH ×3 (09:49→21:17)
[2018-04-27] MEDS: Fluticasone Propionate Nasal 50 MCG/SPRAY BOTTLE NS SCH (09:50)
--- NOTE | 2018-04-27 10:03 | Nephrology Progress Note ---
Date of Encounter: 04/27/18 Time of Encounter: 09:58 - Assessment and Plan (1) Chronic kidney disease, stage IV (severe) Current Visit: Yes Status: Chronic Kidney function at baseline Continue Lasix Good UOP 1000ml Avoid nephrotoxins if possible (2) Hydronephrosis Current Visit: Yes Status: Resolved Qualifiers: Hydronephrosis type: other Qualified Code(s): N13.39 - Other hydronephrosis (3) Anemia Current Visit: Yes Status: Acute Hgb 8.6, up from 8.3 Goal hgb 10-11 Transfuse per parameters Tsat 27 Iron 36 Ferritin 668 Qualifiers: Anemia type: unspecified type Qualified Code(s): D64.9 - Anemia, unspecified Subjective Principal diagnosis: Abdominal Pain Interval history: Patient seen and examined. Awaiting discharge to [facility] Objective - Vital Signs Vital signs: Vital Signs Temp Pulse Resp BP Pulse Ox 04/27/18 08:09 18 98 04/27/18 06:45 97.4 F L 84 18 113/71 98 04/27/18 03:44 97.6 F 79 16 100/65 100 04/26/18 23:39 97.6 F 81 16 94/58 100 04/26/18 20:37 77 108/59 100 04/26/18 19:59 16 100 04/26/18 19:11 97.6 F 76 15 78/49 100 04/26/18 16:23 99.1 F 80 16 105/70 99 Intake and Output 04/26/18 04/27/18 04/27/18 23:59 07:59 15:59 Intake Total 290 / 290 100 / 100 Output Total 890 / 890 10 Balance -600 / -600 90 / 90 Intake: IV Fluids 20 / 20 100 / 100 Rocephin 2,000 MG In Water for 20 20 inj. (sterile) 20 ML @ 600 mls/ hr IVP Q24H [facility] Rx#:[id number] Vancocin 500 MG In 0.9 % Sodium 100 / 100 Chloride (Mini-Bag +) 100 ML @ 100 mls/hr IVPB ONCE ONE Rx#: [id number] Oral 270 / 270 Output: Catheter 750 / 750 0 / 0 Wound Drainage 140 / 140 10 / 10 Left paracentesis drain 120 / 120 0 / 0 Medial Abdomen 20 / 20 10 / 10 Other: Meal Dinner Percent of Meal Consumed 25% Blood Glucose* 87 - General Appearance General appearance: Present: well-developed, well-nourished EENT: Present: ATNC, hearing intact Neck: Present: supple Respiratory: Present: clear Cardiology: Present: edema, normal S1, normal S2 Gastrointestinal: Present: no tenderness, no guarding Integumentary: Present: warm and dry Neurologic: Present: alert and oriented x3 Psychiatric: Present: mood/affect appropriate, cooperative - Lab 04/27/18 04:00 04/27/18 04:00 Most recent lab results Calcium 8.3 mg/dL (8.6-10.3) L 04/27/18 04:00 Phosphorus 2.8 mg/dL (2.7-4.5) 04/20/18 03:10 Magnesium 1.8 mg/dL (1.6-2.6) 04/23/18 03:24 Urine Creatinine 89 mg/dL 03/31/18 19:50 Urine Sodium 16.5 mEq/L 03/31/18 19:50 Urine Total Protein 26 mg/dL (1-14) H 03/31/18 19:50 - VTE Documentation of Mechanical Device: Intermittent pneumatic compression device Consult Discharge Plan - Plan Referrals: Crystal Jimenez MD [Partnered Physician] - 05/13/18 9:55 am Lokesh Cooper MD [Primary Care Provider] - Grace Hicks MD [Partnered Physician] - 05/12/18 1:50 pm
--- NOTE | 2018-04-27 10:36 | Event Note ---
Date of Encounter: 04/27/18 Time of Encounter: 10:[address] with po contrast 04/26/[address] Jimenez. No evidence of leak contributing to fluid collections. No acute surgical indication at this time. Continue drains. Recommend switching both drains to KARAN suction as the drain on the left is to gravity. If patient does not tolerate, can switch back to gravity.
--- NOTE | 2018-04-27 11:37 | Infectious Disease Progress No ---
Date of Encounter: 04/27/18 Time of Encounter: 09:35 - Assessment and Plan (1) Leukocytosis Current Visit: Yes Status: Resolved Likely secondary to infected hematoma. Resolved. Continue to trend. Qualifiers: Leukocytosis type: unspecified Qualified Code(s): D72.829 - Elevated white blood cell count, unspecified (2) Infected hematoma following procedure Current Visit: Yes Status: Acute Causative organism: S. epi, E. coli x 2, and Enterococcus faecium. Additional culture obtained with new drain placement grew E. coli. CT scan completed 03/29/2018 showed moderate volume of fluid in the pelvis and along the mesentery with subacute blood. Repeat CT of the abdomen and pelvis completed 04/01/18 showed a complex fluid collection within the pelvis, here unchanged in size and the density continued to decrease making the finding concerning for an organizing hematoma, although there was suggestion of possible capsule formation, and the possibility of an abscess should be considered. She also had some increasing right-sided hydronephrosis, but presumably from compression of the distal right ureteral compression. Status post CT-guided placement of abdominal abscess drainage catheter on by interventional radiology. No cultures were obtained at the time of catheter placement, but pathology was negative for malignancy. Culture obtained on 04/10/18 positive for and or coccus fascia, staph epi, and 2 strains of Escherichia coli. Repeat CT scan on 04/12/18 showed a large complex appearing fluid collection likely representing an abscess measuring approximately 17 x 11 x 8 cm in size and appears somewhat decreased in size when compared to the previous examination , however a large amount of fluid remained. Additional repeat CAT scan completed 04/19/18 showed complex large abscess in the lower abdomen and pelvis, unchanged in appearance and only slightly decreased in the size of the large abscess compared to prior examination, possibly secondary to multi loculation with a large amount of fluid remaining in the abscess. Gen. surgery continues to follow. New drain placed in the abscess 04/19/18. Large complex fluid collection noted to hbe obscuring the view of the bladder on RP UTS last week. Repeat CT scan with PO contrast shows minimal improvement in the intra- abdominal abscess, likely secondary to multiple loculations. Discussed with the surgery team. Await their recommendations. Clinically, the patient is improved. Her white blood cell count has normalized. Continue vancomycin IV. Pharmacy to dose. Goal trough approximately 15. Continue Rocephin 2 grams IV daily. Continue Flagyl 500 mg PO TID. Duration of treatment depends on the clinical picture, but likely a total of 4 weeks from the placement of the second drain, through 05/17/18. Will plan to repeat CT scan before the patient is due to finish her antibiotics and make further recommendations at that time. Monitor renal function and for drug toxicity and dose adjust antibiotics. Due to the patient's CKD, she will need a tunneled PICC line placed per IR prior to discharge.--> placement scheduled for later today. Will need weekly CBC, BUN/Cr, ESR, CRP, and Vanc trough. Will need weekly PICC care per protocol. Follow up with ID 05/12/18 at 1350. (3) Diarrhea Current Visit: Yes Status: Resolved Etiology unclear, but likely secondary to antibiotics. C. difficile was checked last week and was negative. Continue probiotics twice a day. Resolved. Qualifiers: Diarrhea type: unspecified type Qualified Code(s): R19.7 - Diarrhea, unspecified (4) Chronic kidney disease, stage IV (severe) Current Visit: Yes Status: Chronic Serum creatinine is improved, appears to be back at baseline. Continue to trend. Dose adjust antibiotics and avoid nephrotoxins as able. Typically follows with Dr. Bustos. Nephrology consulted. - Subjective Interval history: Patient seen and examined. No acute events noted overnight. Patient states overall she feels okay. She does report some abdominal pain at the drain sites. Denies fevers, chills, rigors. Denies chest pain, shortness of breath, or cough. Denies urinary complaints or appetite changes. Reports loose stool x 1 yesterday. Currently NPO for tunneled PICC line placement later today. Denies oral thrush or new skin lesions. Infect Dis PN-Objective Data - Labs CBC & Chem 7: 04/27/18 04:00 04/27/18 04:00 Labs: Laboratory Results - last 24 hr 04/27/18 04/27/18 04/27/18 04:00 04:00 04:00 WBC RBC Hgb Hct MCV MCH MCHC RDW Plt Count MPV Immature Gran % Seg Neutrophils % Lymphocytes % Monocytes % Eosinophils % Basophils % Neutrophils # Lymphocytes # Monocytes # Eosinophils # Basophils # Sodium Potassium Chloride Carbon Dioxide BUN Creatinine Est GFR ( Amer) Est GFR (Non-Af Amer) BUN/Creatinine Ratio Glucose POC Glucose Calculated Osmolality Calcium Iron 36 L % Saturation 27 Transferrin 94 L Ferritin 668 H Vitamin B12 1224 H Folate 5.8 Random Vancomycin 16 04/27/18 04/27/18 04/27/18 04:00 04:00 05:52 WBC 6.4 RBC 2.89 L Hgb 8.6 L Hct 27.1 L MCV 93.8 MCH 29.8 MCHC 31.7 RDW 20.9 H Plt Count 150 MPV 10.0 Immature Gran % 2.2 Seg Neutrophils % 79.5 Lymphocytes % 9.7 Monocytes % 6.1 Eosinophils % 2.3 Basophils % 0.2 Neutrophils # 5.1 Lymphocytes # 0.6 Monocytes # 0.4 Eosinophils # 0.2 Basophils # 0.0 Sodium 135 L Potassium 3.4 L Chloride 107 Carbon Dioxide 21 L BUN 28 H Creatinine 2.19 H Est GFR ( Amer) 27 L Est GFR (Non-Af Amer) 22 L BUN/Creatinine Ratio 13 Glucose 87 POC Glucose 87 Calculated Osmolality 285 Calcium 8.3 L Iron % Saturation Transferrin Ferritin Vitamin B12 Folate Random Vancomycin Cultures: Cultures 04/19/18 15:21 Anaerobic Culture - Final Aspirate Anaerobic Gram Negative Cocci 04/19/18 15:21 Wound Culture - Final Abdomen Escherichia coli 04/10/18 20:55 Body Fluid Culture - Final Peritoneal Fluid Escherichia coli#2 Escherichia coli Staphylococcus epidermidis Enterococcus faecium Serology 04/23/18 04/14/18 04/05/18 Range/Units 10:46 11:25 13:15 Urine Color Yellow Yellow (Yellow) Urine Clarity Turbid A Clear (Clear) Urine pH 5.5 5.5 (5.0-8.0) pH Units Ur Specific [place] 1.023 1.020 (1.010-1.025) Urine Protein 100 H 100 H (Neg-Trace) mg/dL Urine Glucose (UA) Normal Normal (Normal) mg/dL Urine Ketones Trace H Negative (Negative) mg/dL Urine Blood Small H Moderate H (Negative) Urine Nitrite Negative Negative (Negative) Urine Bilirubin Negative Small H (Negative) Urine Urobilinogen Normal Normal (Normal) mg/dL Ur Leukocyte Esterase Large H Small H (Negative) Urine Microscopic RBC 3-5 H 5-15 H (0-3) per hpf Urine Microscopic WBC TNTC H 50-100 H (0-3) per hpf Ur Squamous Epith Cells Many H Many H (None-Few) per lpf Urine Bacteria None Seen None Seen (None-Few) per hpf Urine Yeast Many H Moderate H (None Seen) per hpf Ur Culture Indicated? NO. A (NO) Stl C. diff Tox B Gene Negative (Negative) - Impressions Impressions Abdomen/Pelvis CT 04/26/18 17:00 IMPRESSION: The fluid collection with the pelvis now has [address]. Despite that, the fluid collection is only mildly decreased in size, now measuring 14.2 x 10.5 cm (previously 17.8 x 11.0 cm). Presumably this is secondary to multiple loculations. Re- demonstration of anasarca, with subcutaneous edema, small bilateral pleural effusions, and a small amount of intra- abdominal ascites. Patchy airspace disease in the lower lungs, atelectasis versus less likely pneumonia. Re- demonstration of calcified pleural plaques on the left. These could be from remote inflammation/ infection (and that is favored) but asbestosis measures also considered. D/ / Jey Houston MD / Jey Houston MD Interpreting Provider: Jey Houston MD Exam - Constitutional Vitals: Temp Pulse Resp BP Pulse Ox 97.1 F L 89 16 111/74 99 04/27/18 10:25 04/27/18 10:25 04/27/18 10:25 04/27/18 10:25 04/27/18 10:25 General appearance: cooperative, no acute distress, obese - Head Head exam: Present: atraumatic, normal inspection, normocephalic - Eye Eye exam: Present: normal appearance - ENT ENT exam: Present: mucous membranes moist - Neck Neck exam: Present: normal inspection - Respiratory Respiratory exam: Present: CTAB. Absent: rales, respiratory distress, rhonchi, wheezes - Cardiovascular Cardiovascular exam: Present: RRR, +S1, +S2 - GI/Abdominal GI/Abdominal exam: Present: distended (obese), normal bowel sounds, soft, tenderness (LLQ) Additional comments: Parks catheter noted to be draining clear yellow urine. Drain noted to the LLQ to gravity with dark yellow purulent drainage noted. KARAN drain noted to the middle lower abdomen with small amount of bloody purulent drainage noted. - Extremities Exam Extremities exam: Present: pedal edema (2+ BLE/BUE). Absent: joint swelling, tenderness - Neurological Exam Neurological exam: Present: alert, oriented X3, no focal deficits - Psychiatric Psychiatric exam: Present: normal affect, normal mood - Skin Skin exam: Present: dry, intact, normal color, warm - VTE Documentation of Mechanical Device: Intermittent pneumatic compression device Consult Discharge Plan - Plan Referrals: Crystal Jimenez MD [Partnered Physician] - 05/13/18 9:55 am Lokesh Cooper MD [Primary Care Provider] - Grace Hicks MD [Partnered Physician] - 05/12/18 1:50 pm - Attending Attestation I examined this patient and my medical decision-making was reviewed with the Resident Physician. I agree with the documented findings, disposition and treatment plan as described except to the extent set forth below.
--- NOTE | 2018-04-27 13:31 | Internal Med Progress Note ---
Hospitalist Progress Note - Encounter Date of Encounter: 04/27/18 Time of Encounter: 10:20 - Subjective Interval History: Patient is awake and alert. Denies any new complaints at this time. Feels better overall. No fever reported overnight. No nausea or vomiting. 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 Normal breath sounds. No wheezing or crackles.. Cardiovascular: Regular rate and rhythm. s1 and s2 No clicks, rubs, gallops, or murmurs. No pedal edema Abdomen: Abdomen is soft, distended. Mildly tender. KARAN drains in place. Skin: warm, dry, intact. Neuro: Alert, oriented x 3 normal cranial nerves, no focal deficits Psych: Patient's affect is normal - Assessment and Plan (1) Infected hematoma following procedure Current Visit: Yes Status: Acute Assessment and Plan: Infected hematoma following intra-abdominal procedure. Patient has KARAN drains in place for complex fluid abscesses. CT scan done yesterday did not show significant improvement in the size of the fluid collection. Likely due to loculations. Surgery adjusted drain position today. Per their recommendations , no further intervention needed. The recommend discharging patient with drains in place as there is no further leak whenever she is clinically stable and accepted at LTAC. Continue current antibiotics including vancomycin, Rocephin and Flagyl. (2) Atrial fibrillation Current Visit: Yes Status: Chronic Assessment and Plan: Rate controlled. Not on anticoagulation due to intra-abdominal hematoma with acute infection. (3) Anemia Current Visit: Yes Status: Chronic Assessment and Plan: Hemoglobin levels are stable. 8.6 today. She does have iron deficiency. We will replace orally. (4) Chronic kidney disease, stage IV (severe) Current Visit: Yes Status: Chronic Assessment and Plan: Creatinine 2.19. Stable. Nephrology following. No Changes to her treatment plan at this time (5) Abdominal pain Current Visit: Yes Status: Acute Assessment and Plan: Due to infected intra-abdominal hematoma. Pain is better controlled today. Continue IV antibiotics (6) Anasarca Current Visit: Yes Status: Acute Assessment and Plan: Patient has been restarted back on Lasix (7) Acute thrombosis of cephalic vein Current Visit: Yes Status: Acute Assessment and Plan: Not on medical anticoagulation as this is superficial thrombosis. Recommend warm compress (8) Diarrhea Current Visit: Yes Status: Resolved Assessment and Plan: Improved. Stool was negative for C. difficile. DVT Prophylaxis: SCDs - Time Spent with Patient Total time spent is greater than 50% in coordination of care (as documented) at patient's floor/unit and/or counseling patient: Plan of Care Discussed with: patient Internal Medicine: Result - Labs CBC & Chem 7: 04/27/18 04:00 04/27/18 04:00 Labs: Short CBC 04/27/18 Range/Units 04:00 WBC 6.4 (4.3-11.1) K/mcL Hgb 8.6 L (11.5-15.4) g/dL Hct 27.1 L (35.3-44.9) % Plt Count 150 (140-400) K/mcL Neutrophils # 5.1 (1.6-8.9) K/mcL BMP 04/27/18 04:00 Sodium 135 L Potassium 3.4 L Chloride 107 Carbon Dioxide 21 L BUN 28 H Creatinine 2.19 H Glucose 87 Calcium 8.3 L - ABG Interpretation ABG results: PT/INR, D-dimer PT 14.8 Seconds (9.4-12.1) H 04/20/18 09:45 - Impressions Impressions Abdomen/Pelvis CT 04/26/18 17:00 IMPRESSION: The fluid collection with the pelvis now has [address]. Despite that, the fluid collection is only mildly decreased in size, now measuring 14.2 x 10.5 cm (previously 17.8 x 11.0 cm). Presumably this is secondary to multiple loculations. Re- demonstration of anasarca, with subcutaneous edema, small bilateral pleural effusions, and a small amount of intra- abdominal ascites. Patchy airspace disease in the lower lungs, atelectasis versus less likely pneumonia. Re- demonstration of calcified pleural plaques on the left. These could be from remote inflammation/ infection (and that is favored) but asbestosis measures also considered. D/ / Jey Houston MD / Jey Houston MD Interpreting Provider: Jey Houston MD - VTE Documentation of Mechanical Device: Intermittent pneumatic compression device Consult Discharge Plan - Plan Referrals: Crystal Jimenez MD [Partnered Physician] - 05/13/18 9:55 am Lokesh Cooper MD [Primary Care Provider] - Grace Hicks MD [Partnered Physician] - 05/12/18 1:50 pm (3) Anemia Qualifiers: Anemia type: other cause Other causes of anemia: chronic disease, other Qualified Code(s): D63.8 - Anemia in other chronic diseases classified elsewhere (5) Abdominal pain Qualifiers: Abdominal location: unspecified location Qualified Code(s): R10.9 - Unspecified abdominal pain (7) Acute thrombosis of cephalic vein Qualifiers: Laterality: left Qualified Code(s): I82.612 - Acute embolism and thrombosis of superficial veins of left upper extremity (8) Diarrhea Qualifiers: Diarrhea type: unspecified type Qualified Code(s): R19.7 - Diarrhea, unspecified
--- NOTE | 2018-04-27 13:45 | IR Procedure Note ---
Date of procedure: 04/27/18 Consent Obtained: Verbal consent Timeout: Correct patient and procedure verified, Correct site verified, Time out performed, Skin prep completed Indications: infection Procedure Performed: tuneled picc Was there an field assistant present: No Site/Technique: rt IJ to SVC Results/Findings: CXR verificatiojn Estimated blood loss (cc): 2 Complications: None; Tolerated procedure well Post Procedure Treatment Plan: CXR Specimen: none
[2018-04-27] MEDS: cefTRIAXone 2,000 MG in Water for inj. (sterile) 20 ML 20 ML IVP SCH (17:51)
[2018-04-27] MEDS: Acetaminophen 325 MG TABLET PO PRN (21:18)
[2018-04-28] MEDS: Acetaminophen 325 MG TABLET PO PRN ×2 (04:50→20:44)
[2018-04-28] MEDS: Budesonide/Formoterol 160/4.5 MDI IH SCH ×2 (08:02→20:11)
[2018-04-28] MEDS: Ipratropium/Albuterol Neb 3 ML IH PRN ×2 (08:04→20:12)
[2018-04-28] MEDS: metroNIDAZOLE 500 MG TABLET PO SCH ×3 (10:32→20:42)
[2018-04-28] MEDS: Loratadine 10 MG TABLET PO SCH (10:33)
[2018-04-28] MEDS: Lactobacillus 1 EACH CAP.SPRINK PO SCH ×2 (10:33→20:42)
[2018-04-28] MEDS: Aspirin Enteric Coated 81 MG Tablet PO SCH (10:33)
[2018-04-28] MEDS: Nystatin POWDER 30 GM BOTTLE TP SCH ×3 (10:34→20:43)
[2018-04-28] MEDS: Furosemide 40 MG TABLET PO SCH (10:37)
[2018-04-28] MEDS: *HR* Amiodarone 200 MG TABLET PO SCH (10:37)
[2018-04-28] MEDS: Fluticasone Propionate Nasal 50 MCG/SPRAY BOTTLE NS SCH (10:44)
--- NOTE | 2018-04-28 13:08 | Infectious Disease Progress No ---
Date of Encounter: 04/28/18 Time of Encounter: 10:20 - Assessment and Plan (1) Leukocytosis Current Visit: Yes Status: Resolved Likely secondary to infected hematoma. Resolved. Continue to trend. Qualifiers: Leukocytosis type: unspecified Qualified Code(s): D72.829 - Elevated white blood cell count, unspecified (2) Infected hematoma following procedure Current Visit: Yes Status: Acute Causative organism: S. epi, E. coli x 2, and Enterococcus faecium. Additional culture obtained with new drain placement grew E. coli. CT scan completed 03/29/2018 showed moderate volume of fluid in the pelvis and along the mesentery with subacute blood. Repeat CT of the abdomen and pelvis completed 04/01/18 showed a complex fluid collection within the pelvis, here unchanged in size and the density continued to decrease making the finding concerning for an organizing hematoma, although there was suggestion of possible capsule formation, and the possibility of an abscess should be considered. She also had some increasing right-sided hydronephrosis, but presumably from compression of the distal right ureteral compression. Status post CT-guided placement of abdominal abscess drainage catheter on by interventional radiology. No cultures were obtained at the time of catheter placement, but pathology was negative for malignancy. Culture obtained on 04/10/18 positive for and or coccus fascia, staph epi, and 2 strains of Escherichia coli. Repeat CT scan on 04/12/18 showed a large complex appearing fluid collection likely representing an abscess measuring approximately 17 x 11 x 8 cm in size and appears somewhat decreased in size when compared to the previous examination , however a large amount of fluid remained. Additional repeat CAT scan completed 04/19/18 showed complex large abscess in the lower abdomen and pelvis, unchanged in appearance and only slightly decreased in the size of the large abscess compared to prior examination, possibly secondary to multi loculation with a large amount of fluid remaining in the abscess. Gen. surgery continues to follow. New drain placed in the abscess 04/19/18. Large complex fluid collection noted to hbe obscuring the view of the bladder on RP UTS last week. Repeat CT scan with PO contrast shows minimal improvement in the intra- abdominal abscess, likely secondary to multiple loculations. Discussed with the surgery team. Await their recommendations. Clinically, the patient is improved. Her white blood cell count has normalized. Continue vancomycin IV. Pharmacy to dose. Goal trough approximately 15. Continue Rocephin 2 grams IV daily. Continue Flagyl 500 mg PO TID. Duration of treatment depends on the clinical picture, but likely a total of 4 weeks from the placement of the second drain, through 05/17/18. Will plan to repeat CT scan before the patient is due to finish her antibiotics and make further recommendations at that time. Monitor renal function and for drug toxicity and dose adjust antibiotics. Status post tunneled PICC line placement 04/27/18. Will need weekly CBC, BUN/Cr, ESR, CRP, and Vanc trough. Will need weekly PICC care per protocol. Follow up with ID 05/12/18 at 1350. (3) Diarrhea Current Visit: Yes Status: Resolved Etiology unclear, but likely secondary to antibiotics. C. difficile was checked last week and was negative. Continue probiotics twice a day. Resolved. Qualifiers: Diarrhea type: unspecified type Qualified Code(s): R19.7 - Diarrhea, unspecified (4) Chronic kidney disease, stage IV (severe) Current Visit: Yes Status: Chronic Serum creatinine is improved, appears to be back at baseline. Continue to trend. Dose adjust antibiotics and avoid nephrotoxins as able. Typically follows with Dr. Bustos. Nephrology consulted. - Subjective Interval history: Patient seen and examined. No acute events noted overnight. Patient states overall she feels okay. She does report some abdominal pain at the drain sites. Denies fevers, chills, rigors. Denies chest pain, shortness of breath, or cough. Denies urinary complaints or appetite changes. Reports loose stool two days ago, but has flatus. Denies oral thrush or new skin lesions. Infect Dis PN-Objective Data - Labs CBC & Chem 7: 04/27/18 04:00 04/27/18 04:00 Labs: Laboratory Results - last 24 hr 04/27/18 17:04 POC Glucose 78 Cultures: Cultures 04/19/18 15:21 Anaerobic Culture - Final Aspirate Anaerobic Gram Negative Cocci 04/19/18 15:21 Wound Culture - Final Abdomen Escherichia coli 04/10/18 20:55 Body Fluid Culture - Final Peritoneal Fluid Escherichia coli#2 Escherichia coli Staphylococcus epidermidis Enterococcus faecium Serology 04/23/18 04/14/18 04/05/18 Range/Units 10:46 11:25 13:15 Urine Color Yellow Yellow (Yellow) Urine Clarity Turbid A Clear (Clear) Urine pH 5.5 5.5 (5.0-8.0) pH Units Ur Specific [place] 1.023 1.020 (1.010-1.025) Urine Protein 100 H 100 H (Neg-Trace) mg/dL Urine Glucose (UA) Normal Normal (Normal) mg/dL Urine Ketones Trace H Negative (Negative) mg/dL Urine Blood Small H Moderate H (Negative) Urine Nitrite Negative Negative (Negative) Urine Bilirubin Negative Small H (Negative) Urine Urobilinogen Normal Normal (Normal) mg/dL Ur Leukocyte Esterase Large H Small H (Negative) Urine Microscopic RBC 3-5 H 5-15 H (0-3) per hpf Urine Microscopic WBC TNTC H 50-100 H (0-3) per hpf Ur Squamous Epith Cells Many H Many H (None-Few) per lpf Urine Bacteria None Seen None Seen (None-Few) per hpf Urine Yeast Many H Moderate H (None Seen) per hpf Ur Culture Indicated? NO. A (NO) Stl C. diff Tox B Gene Negative (Negative) - Impressions Impressions Guidance Ultrasound 04/27/18 00:00 IMPRESSION: Successful ultrasound guided tunneled PICC catheter placement in the appropriate position. D/ / 04/27/2018 14:34:30 Yany Barrett MD / deepali Interpreting Provider: Yany Barrett MD Insertion Non-Tunneled Catheter 04/27/18 00:00 IMPRESSION: Successful ultrasound guided tunneled PICC catheter placement in the appropriate position. D/ / 04/27/2018 14:34:30 Yany Barrett MD / deepali Interpreting Provider: Yany Barrett MD Chest X-Ray 04/27/18 13:31 IMPRESSION: 1. Right side CVC tip overlies the proximal to mid superior vena cava level. 2. Findings suggestive of congestive heart failure. Pneumonia is a consideration. 3. Calcific atherosclerosis aorta. 4. Cardiomegaly. D/ / Bhanu Chen / Bhanu Chen Interpreting Provider: Bhanu Chen Exam - Constitutional Vitals: Temp Pulse Resp BP Pulse Ox 97.4 F L 77 15 93/56 97 08/08/18 04:47 04/28/18 04:47 04/28/18 08:06 04/28/18 04:47 04/28/18 08:06 General appearance: cooperative, morbidly obese, no acute distress - Head Head exam: Present: atraumatic, normal inspection, normocephalic - Eye Eye exam: Present: normal appearance - ENT ENT exam: Present: mucous membranes moist - Neck Neck exam: Present: normal inspection - Respiratory Respiratory exam: Present: CTAB. Absent: rales, respiratory distress, rhonchi, wheezes - Cardiovascular Cardiovascular exam: Present: RRR, +S1, +S2 - GI/Abdominal GI/Abdominal exam: Present: distended (obese), normal bowel sounds, soft, tenderness (LLQ) Additional comments: Drains x 2 noted to the LLQ and middle lower abdomen with small amount of bloody purulent drainage noted. Parks catheter noted to be draining clear yellow urine. - Extremities Exam Extremities exam: Present: pedal edema (2+ BLE). Absent: joint swelling, tenderness - Neurological Exam Neurological exam: Present: alert, oriented X3, no focal deficits - Psychiatric Psychiatric exam: Present: normal affect, normal mood - Skin Skin exam: Present: dry, intact, normal color, warm - Additional findings Additional findings: Tunneled PICC line noted to the right upper chest with transparent dressing C/D/ I. - VTE Documentation of Mechanical Device: Intermittent pneumatic compression device Consult Discharge Plan - Plan Referrals: Crystal Jimenez MD [Partnered Physician] - 05/13/18 9:55 am Lokesh oCoper MD [Primary Care Provider] - Grace Hicks MD [Partnered Physician] - 05/12/18 1:50 pm - Attending Attestation I examined this patient and my medical decision-making was reviewed with the Monica Waller CNP I agree with the documented findings, disposition and treatment plan as described except to the extent set forth below.
--- NOTE | 2018-04-28 13:47 | Internal Med Progress Note ---
Hospitalist Progress Note - Encounter Date of Encounter: 04/28/18 Time of Encounter: 10:30 - Subjective Interval History: Patient seen earlier today. Lying in bed. Comfortable. Getting ready to work with physical therapy. Underwent placement of tunneled PICC line yesterday. No complications postprocedure. No new complaints at this time. No fever reported overnight. - Exam Vitals: Temp Pulse Resp BP Pulse Ox 97.4 F L 77 15 93/56 97 04/28/18 04:47 04/28/18 04:47 04/28/18 08:06 04/28/18 04:47 04/28/18 08:06 Exam: General: Patient is alert, no acute distress, oriented x 3 Head: atraumatic, normocephalic, Eye: Blindness ENT: mucous membranes moist, normal external ear exam Neck: normal inspection, trachea midline, full ROM, no carotid bruits Chest: normal inspection, symmetric chest rise Respiratory: Good respiratory effort. Normal breath sounds. No wheezing or crackles.. Cardiovascular: Regular rate and rhythm. s1 and s2 No clicks, rubs, gallops, or murmurs. No pedal edema Abdomen: Abdomen is soft, nontender. Bowel sounds are present. KARAN drains are in place and draining serous fluid Musculoskeletal: Spontaneously moving all extremities. Skin: warm, dry, intact. Neuro: Alert oriented x 3 normal cranial nerves, no focal deficits Psych: Patient's affect is normal - Assessment and Plan (1) Infected hematoma following procedure Current Visit: Yes Status: Acute Assessment and Plan: Continue management per infectious disease recommendations. Continue IV antibiotics-vancomycin and Rocephin and Flagyl for a total of 4 weeks. Tunneled PICC line placed. counter supply worker working on placement for patient. From a medical standpoint she is stable to be discharged at this time. Will be discharged once she has an accepting facility. (2) Atrial fibrillation Current Visit: Yes Status: Chronic Assessment and Plan: Rate controlled. However patient is having low blood pressure. We will decrease metoprolol dosage to 12.5 mg twice daily. Continue amiodarone. Not on anticoagulation due to anemia and intra-abdominal hematoma (3) Anemia Current Visit: Yes Status: Chronic Assessment and Plan: Hemoglobin 8.6 yesterday. Will continue to monitor. Recheck levels in the morning (4) Chronic kidney disease, stage IV (severe) Current Visit: Yes Status: Chronic Assessment and Plan: Stable renal function. Creatinine 2.19 today. (5) Abdominal pain Current Visit: Yes Status: Acute Assessment and Plan: Improving. Due to infected hematoma. KARAN drains in place. (6) Anasarca Current Visit: Yes Status: Acute Assessment and Plan: Continue Lasix (7) Acute thrombosis of cephalic vein Current Visit: Yes Status: Acute Assessment and Plan: Superficial vein thrombosis. Local warm compresses and pain control. Swelling appears to be improving overall. (8) Diarrhea Current Visit: Yes Status: Resolved DVT Prophylaxis: SCDs - Time Spent with Patient Total time spent is greater than 50% in coordination of care (as documented) at patient's floor/unit and/or counseling patient: Plan of Care Discussed with: patient Internal Medicine: Result - Labs CBC & Chem 7: 04/27/18 04:00 04/27/18 04:00 - ABG Interpretation ABG results: PT/INR, D-dimer PT 14.8 Seconds (9.4-12.1) H 04/20/18 09:45 - Impressions Impressions Guidance Ultrasound 04/27/18 00:00 IMPRESSION: Successful ultrasound guided tunneled PICC catheter placement in the appropriate position. D/ / 04/27/2018 14:34:30 Yany Barrett MD / deepali Interpreting Provider: Yany Barrett MD Insertion Non-Tunneled Catheter 04/27/18 00:00 IMPRESSION: Successful ultrasound guided tunneled PICC catheter placement in the appropriate position. D/ / 04/27/2018 14:34:30 Yany Barrett MD / deepali Interpreting Provider: Yany Barrett MD Chest X-Ray 04/27/18 13:31 IMPRESSION: 1. Right side CVC tip overlies the proximal to mid superior vena cava level. 2. Findings suggestive of congestive heart failure. Pneumonia is a consideration. 3. Calcific atherosclerosis aorta. 4. Cardiomegaly. D/ / Bhanu Chen / Bhanu Chen Interpreting Provider: Bhanu Chen - VTE Documentation of Mechanical Device: Intermittent pneumatic compression device Consult Discharge Plan - Plan Referrals: Spahn,Crystal L, MD [Partnered Physician] - 05/13/18 9:55 am Lokesh Cooper MD [Primary Care Provider] - Grace Hicks MD [Partnered Physician] - 05/12/18 1:50 pm (3) Anemia Qualifiers: Anemia type: other cause Other causes of anemia: chronic disease, other Qualified Code(s): D63.8 - Anemia in other chronic diseases classified elsewhere (5) Abdominal pain Qualifiers: Abdominal location: unspecified location Qualified Code(s): R10.9 - Unspecified abdominal pain (7) Acute thrombosis of cephalic vein Qualifiers: Laterality: left Qualified Code(s): I82.612 - Acute embolism and thrombosis of superficial veins of left upper extremity (8) Diarrhea Qualifiers: Diarrhea type: unspecified type Qualified Code(s): R19.7 - Diarrhea, unspecified
[2018-04-28] MEDS: cefTRIAXone 2,000 MG in Water for inj. (sterile) 20 ML 20 ML IVP SCH (15:00)
[2018-04-29] MEDS: Acetaminophen 325 MG TABLET PO PRN ×3 (03:04→16:00)
[2018-04-29] MEDS ORDERED: Vancomycin 500 MG in 0.9 % Sodium Chloride Mini Bag 100 ML IVPB SCH (07:00)
[2018-04-29] MEDS: Budesonide/Formoterol 160/4.5 MDI IH SCH (08:21)
[2018-04-29] MEDS: Furosemide 40 MG TABLET PO SCH (08:25)
[2018-04-29] MEDS: Aspirin Enteric Coated 81 MG Tablet PO SCH (08:25)
[2018-04-29] MEDS: Lactobacillus 1 EACH CAP.SPRINK PO SCH (08:26)
[2018-04-29] MEDS: metroNIDAZOLE 500 MG TABLET PO SCH ×2 (08:26→14:39)
[2018-04-29] MEDS: Fluticasone Propionate Nasal 50 MCG/SPRAY BOTTLE NS SCH (08:27)
[2018-04-29] MEDS: *HR* Amiodarone 200 MG TABLET PO SCH (08:27)
[2018-04-29] MEDS: Nystatin POWDER 30 GM BOTTLE TP SCH ×2 (08:27→14:39)
[2018-04-29 09:14] LABS: Calcium 8.4 mg/dL (8.6-10.3); Potassium 3.4 mEq/L (3.5-5.1)
[2018-04-29 09:15] LABS: Eosinophils # 0.1 K/mcL (0.0-0.6); Eosinophils % 1.3 %; Hematocrit 29.3 % (35.3-44.9); Hemoglobin 9.2 g/dL (11.5-15.4); Immature Granulocytes % 2.5 % (0-4); Lymphocytes # 0.6 K/mcL (0.6-4.6); Lymphocytes % 10.5 %; Mean Corpuscular HGB Conc 31.4 g/dL (31.6-35.5); Mean Corpuscular Hemoglobin 29.7 pg (28.0-33.3); Mean Corpuscular Volume 94.5 fL (83.0-100.0); Mean Platelet Volume 9.8 fL (9.4-12.4); Monocytes # 0.4 K/mcL (0.0-1.3); Monocytes % 6.2 %; Neutrophils # 4.8 K/mcL (1.6-8.9); Platelet Count 142 K/mcL (140-400); Red Cell Distribution Width 21.1 % (11.5-14.5); Segmented Neutrophils % 79.5 %
[2018-04-29 09:54] VITALS: BP 102/74
--- NOTE | 2018-04-29 10:35 | Infectious Disease Progress No ---
Date of Encounter: 04/29/18 Time of Encounter: 10:33 - Assessment and Plan (1) Leukocytosis Current Visit: Yes Status: Resolved Likely secondary to infected hematoma. Resolved. Continue to trend. Qualifiers: Leukocytosis type: unspecified Qualified Code(s): D72.829 - Elevated white blood cell count, unspecified (2) Infected hematoma following procedure Current Visit: Yes Status: Acute Causative organism: S. epi, E. coli x 2, and Enterococcus faecium. Additional culture obtained with new drain placement grew E. coli. CT scan completed 03/29/2018 showed moderate volume of fluid in the pelvis and along the mesentery with subacute blood. Repeat CT of the abdomen and pelvis completed 04/01/18 showed a complex fluid collection within the pelvis, here unchanged in size and the density continued to decrease making the finding concerning for an organizing hematoma, although there was suggestion of possible capsule formation, and the possibility of an abscess should be considered. She also had some increasing right-sided hydronephrosis, but presumably from compression of the distal right ureteral compression. Status post CT-guided placement of abdominal abscess drainage catheter on by interventional radiology. No cultures were obtained at the time of catheter placement, but pathology was negative for malignancy. Culture obtained on 04/10/18 positive for and or coccus fascia, staph epi, and 2 strains of Escherichia coli. Repeat CT scan on 04/12/18 showed a large complex appearing fluid collection likely representing an abscess measuring approximately 17 x 11 x 8 cm in size and appears somewhat decreased in size when compared to the previous examination , however a large amount of fluid remained. Additional repeat CAT scan completed 04/19/18 showed complex large abscess in the lower abdomen and pelvis, unchanged in appearance and only slightly decreased in the size of the large abscess compared to prior examination, possibly secondary to multi loculation with a large amount of fluid remaining in the abscess. Gen. surgery continues to follow. New drain placed in the abscess 04/19/18. Large complex fluid collection noted to hbe obscuring the view of the bladder on RP UTS last week. Repeat CT scan with PO contrast shows minimal improvement in the intra- abdominal abscess, likely secondary to multiple loculations. Discussed with the surgery team. Await their recommendations. Clinically, the patient is improved. Her white blood cell count has normalized. Continue vancomycin IV. Pharmacy to dose. Goal trough approximately 15. Continue Rocephin 2 grams IV daily. Continue Flagyl 500 mg PO TID. Duration of treatment depends on the clinical picture, but likely a total of 4 weeks from the placement of the second drain, through 05/17/18. Will plan to repeat CT scan before the patient is due to finish her antibiotics and make further recommendations at that time. Monitor renal function and for drug toxicity and dose adjust antibiotics. Status post tunneled PICC line placement 04/27/18. Will need weekly CBC, BUN/Cr, ESR, CRP, and Vanc trough. Will need weekly PICC care per protocol. Follow up with ID 05/12/18 at 1350. (3) Diarrhea Current Visit: Yes Status: Resolved Etiology unclear, but likely secondary to antibiotics. C. difficile was checked last week and was negative. Continue probiotics twice a day. Resolved. Qualifiers: Diarrhea type: unspecified type Qualified Code(s): R19.7 - Diarrhea, unspecified (4) Chronic kidney disease, stage IV (severe) Current Visit: Yes Status: Chronic Serum creatinine is improved, appears to be back at baseline. Continue to trend. Dose adjust antibiotics and avoid nephrotoxins as able. Typically follows with Dr. Bustos. Nephrology consulted. - Subjective Interval history: Patient seen and examined. No acute events noted overnight. Patient states overall she feels okay. She does report some abdominal pain at the drain sites. Denies fevers, chills, rigors. Denies chest pain, shortness of breath, or cough. Denies urinary complaints or appetite changes. Reports loose stool this morning. Denies oral thrush or new skin lesions. Infect Dis PN-Objective Data - Labs CBC & Chem 7: 04/29/18 08:35 04/29/18 08:35 Labs: Laboratory Results - last 24 hr 04/29/18 04/29/18 04/29/18 03:12 08:35 08:35 WBC 6.1 RBC 3.10 L Hgb 9.2 L Hct 29.3 L MCV 94.5 MCH 29.7 MCHC 31.4 L RDW 21.1 H Plt Count 142 MPV 9.8 Immature Gran % 2.5 Seg Neutrophils % 79.5 Lymphocytes % 10.5 Monocytes % 6.2 Eosinophils % 1.3 Basophils % 0.0 Neutrophils # 4.8 Lymphocytes # 0.6 Monocytes # 0.4 Eosinophils # 0.1 Basophils # 0.0 Sodium 138 Potassium 3.4 L Chloride 107 Carbon Dioxide 22 L BUN 27 H Creatinine 2.38 H Est GFR ( Amer) 24 L Est GFR (Non-Af Amer) 20 L BUN/Creatinine Ratio 11 Glucose 86 Calculated Osmolality 290 Calcium 8.4 L Vancomycin Trough 15 H Cultures: Cultures 04/19/18 15:21 Anaerobic Culture - Final Aspirate Anaerobic Gram Negative Cocci 04/19/18 15:21 Wound Culture - Final Abdomen Escherichia coli 04/10/18 20:55 Body Fluid Culture - Final Peritoneal Fluid Escherichia coli#2 Escherichia coli Staphylococcus epidermidis Enterococcus faecium Serology 04/23/18 04/14/18 04/05/18 Range/Units 10:46 11:25 13:15 Urine Color Yellow Yellow (Yellow) Urine Clarity Turbid A Clear (Clear) Urine pH 5.5 5.5 (5.0-8.0) pH Units Ur Specific Powell 1.023 1.020 (1.010-1.025) Urine Protein 100 H 100 H (Neg-Trace) mg/dL Urine Glucose (UA) Normal Normal (Normal) mg/dL Urine Ketones Trace H Negative (Negative) mg/dL Urine Blood Small H Moderate H (Negative) Urine Nitrite Negative Negative (Negative) Urine Bilirubin Negative Small H (Negative) Urine Urobilinogen Normal Normal (Normal) mg/dL Ur Leukocyte Esterase Large H Small H (Negative) Urine Microscopic RBC 3-5 H 5-15 H (0-3) per hpf Urine Microscopic WBC TNTC H 50-100 H (0-3) per hpf Ur Squamous Epith Cells Many H Many H (None-Few) per lpf Urine Bacteria None Seen None Seen (None-Few) per hpf Urine Yeast Many H Moderate H (None Seen) per hpf Ur Culture Indicated? NO. A (NO) Stl C. diff Tox B Gene Negative (Negative) - Impressions Impressions Guidance Ultrasound 04/27/18 00:00 IMPRESSION: Successful ultrasound guided tunneled PICC catheter placement in the appropriate position. D/ / 04/27/2018 14:34:30 Yany Barrett MD / deepali Interpreting Provider: Yany Barrett MD Insertion Non-Tunneled Catheter 04/27/18 00:00 IMPRESSION: Successful ultrasound guided tunneled PICC catheter placement in the appropriate position. D/ / 04/27/2018 14:34:30 Yany Barrett MD / deepali Interpreting Provider: Yany Barrett MD Exam - Constitutional Vitals: Temp Pulse Resp BP Pulse Ox 98.0 F 82 16 102/74 99 04/29/18 09:53 04/29/18 09:53 04/29/18 09:53 04/29/18 09:53 04/29/18 09:53 General appearance: cooperative, no acute distress, obese - Head Head exam: Present: atraumatic, normal inspection, normocephalic - Eye Eye exam: Present: normal appearance - ENT ENT exam: Present: mucous membranes moist - Neck Neck exam: Present: normal inspection - Respiratory Respiratory exam: Present: CTAB. Absent: rales, respiratory distress, rhonchi, wheezes - Cardiovascular Cardiovascular exam: Present: RRR, +S1, +S2 - GI/Abdominal GI/Abdominal exam: Present: distended (obese), normal bowel sounds, soft, tenderness (LLQ) Additional comments: KARAN drain noted x2 to the left lower/middle abdomen with small amount of dark brown purulent drainage. Parks catheter noted to be draining clear yellow urine. - Extremities Exam Extremities exam: Present: normal inspection, pedal edema (2+ BLE). Absent: joint swelling, tenderness Additional comments: Upper extremity swelling noted bilaterally 1+. - Neurological Exam Neurological exam: Present: alert, oriented X3, no focal deficits - Psychiatric Psychiatric exam: Present: normal affect, normal mood - Skin Skin exam: Present: dry, intact, normal color, warm - Additional findings Additional findings: Tunneled PICC line noted to the right upper chest with transparent dressing C/D/ I. Mild ecchymosis noted surrounding the insertion site. - VTE Documentation of Mechanical Device: Intermittent pneumatic compression device Consult Discharge Plan - Plan Referrals: Crystal Jimenez MD [Partnered Physician] - 05/13/18 9:55 am Lokesh Cooper MD [Primary Care Provider] - Grace Hicks MD [Partnered Physician] - 05/12/18 1:50 pm
--- NOTE | 2018-04-29 14:01 | Discharge Summary ---
- NOTES TO OUTPATIENT PROVIDER Notes to Outpatient Provider: Patient who initially came in initially with postoperative complications following appendectomy with bleeding and hypotension has been hospitalized here for several days related to this. She developed Infected hematoma which was growing Escherichia coli, staph epidermidis and enterococcus faecium. She has had drains placed but there has not been much improvement in the size of the complex abscess. Most likely related to septations or loculations. At this time, she continues to have KARAN drain in place. Surgery will follow as outpatient for further management. Patient will be discharged on intravenous antibiotics to complete at least 4 weeks of IV antibiotics. Patient will be discharged to nursing home facility and has a tunneled PICC line in place to receive intravenous antibiotics. She did develop acute thrombosis of the superficial cephalic vein in the left upper extremity which is being managed conservatively. She will also follow-up with infectious disease after discharge. Orders not resulted at time of discharge: Pending orders 04/19/18 15:21 Fungal Culture [MYC] Routine Date of Encounter: 04/29/18 Time of Encounter: 13:56 - Discharge Diagnosis (1) Infected hematoma following procedure Priority: Primary Status: Acute (2) Atrial fibrillation Priority: Secondary Status: Chronic Qualifiers: Atrial fibrillation type: chronic Qualified Code(s): I48.2 - Chronic atrial fibrillation (3) Anemia Priority: Secondary Status: Chronic Qualifiers: Anemia type: other cause Other causes of anemia: chronic disease, other Qualified Code(s): D63.8 - Anemia in other chronic diseases classified elsewhere (4) Chronic kidney disease, stage IV (severe) Priority: Secondary Status: Chronic (5) Abdominal pain Priority: Secondary Status: Acute Qualifiers: Abdominal location: unspecified location Qualified Code(s): R10.9 - Unspecified abdominal pain (6) Anasarca Priority: Secondary Status: Acute (7) Acute thrombosis of cephalic vein Priority: Secondary Status: Acute Qualifiers: Laterality: left Qualified Code(s): I82.612 - Acute embolism and thrombosis of superficial veins of left upper extremity (8) Diarrhea Priority: Secondary Status: Resolved Qualifiers: Diarrhea type: unspecified type Qualified Code(s): R19.7 - Diarrhea, unspecified Hospital course: Ms. Barber is a 72 year old female Patient with history of blindness, COPD, atrial fibrillation, hypertension, chronic kidney disease, gastroesophageal reflux disease who initially came in initially with postoperative complications following appendectomy 2 weeks prior with bleeding and hypotension. She has been hospitalized here for several days related to this with a complicated course. She developed Infected hematoma which was growing Escherichia coli, staph epidermidis and enterococcus faecium. She has had drains placed but there has not been much improvement in the size of the complex abscess. Most likely related to septations or loculations. At this time, she continues to have [address] Surgery will follow as outpatient for further management. Patient will be discharged on intravenous antibiotics to complete at least 4 weeks of IV antibiotics. Patient will be discharged to nursing home facility and has a tunneled PICC line in place to receive intravenous antibiotics. She did develop acute thrombosis of the superficial cephalic vein in the left upper extremity which is being managed conservatively. She will also follow-up with infectious disease after discharge. Patient has atrial fibrillation and her heart rate has been controlled. She is not on anticoagulation due to anemia and intra-abdominal hematoma. She also has chronic kidney disease and bilateral renal function has been stable here, she underwent placement of tunneled PIC catheter per nephrology recommendations for IV antibiotics. Discharge discussed with: patient, nurse, social work, case management, telecom sales consultant - Time Spent with Patient Total time spent providing and/or coordinating discharge services: Greater than 30 minutes (50 min) - Discharge Medications Prescriptions: Acetaminophen [Tylenol] 650 mg PO Q4HR PRN #60 tablet PRN Reason: Pain Calcium Carbonate [Tums] 1,000 mg PO Q4HR PRN #30 tab.chew PRN Reason: Heartburn cefTRIAXone [Rocephin] 2,000 mg IVPB DAILY #20 vial Ferrous Sulfate 325 mg PO BIDWM #60 tablet Lactobacillus [Culturelle] 1 each PO BID #60 cap.sprink Metoprolol [Lopressor] 12.5 mg PO BID #30 tablet metroNIDAZOLE [Flagyl] 500 mg PO TID #54 tablet Vancomycin [Vancocin] 500 each IV Q48H #10 vial Home Medications: Cyclosporine [Restasis] 1 drop BOTH EYES BID 04/30/15 [History] Potassium Chloride 20 meq PO DAILY 06/19/16 [History] Calcitriol [Rocaltrol] 0.25 mcg PO DAILY 03/20/17 [History] Albuterol Sulfate [Albuterol Inhaler] 2 puff IH Q4HR PRN 08/27/17 [History] Atorvastatin Calcium [Lipitor] 20 mg PO HS 10/06/17 [History] Esomeprazole Magnesium [Nexium] 40 mg PO DAILY 10/06/17 [History] Aspirin Enteric Coated [Aspirin EC] 81 mg PO DAILY tablet. 11/02/17 [Rx] Amiodarone [Cordarone] 200 mg PO DAILY 11/28/17 [History] Docusate [Colace] 100 mg PO BID PRN capsule 12/02/17 [Rx] Fluticasone Propionate Nasal [Flonase] 50 mcg NS DAILY bottle 12/02/17 [Rx] GuaiFENesin Liq [Robitussin Liq] 200 mg PO Q4HR PRN 02/11/18 [History] Furosemide [Lasix] 40 mg PO DAILY 03/09/18 [History] Quetiapine Fumarate [Seroquel] 50 mg PO HS 03/09/18 [History] Fluticasone/Vilanterol [Breo Ellipta 100-25 Mcg INH] 1 puff IH DAILY 03/29/18 [ History] Loperamide [Imodium] 2 mg PO Q6H PRN 03/29/18 [History] Ondansetron [Zofran] 8 mg PO Q6H PRN 03/29/18 [History] Oxycodone HCl [Oxaydo] 5 mg PO QID PRN 03/29/18 [History] Acetaminophen [Tylenol] 650 mg PO Q4HR PRN #60 tablet 04/29/18 [Rx] Bisacodyl [Dulcolax] 10 mg RC DAILY PRN supp.rect 04/29/18 [Rx] Calcium Carbonate [Tums] 1,000 mg PO Q4HR PRN #30 tab.chew 04/29/18 [Rx] Ferrous Sulfate 325 mg PO BIDWM #60 tablet 04/29/18 [Rx] Lactobacillus [Culturelle] 1 each PO BID #60 cap.sprink 04/29/18 [Rx] Loratadine [Claritin] 10 mg PO Q48H #0 04/29/18 [Rx] Metoprolol [Lopressor] 12.5 mg PO BID #30 tablet 04/29/18 [Rx] Vancomycin [Vancocin] 500 each IV Q48H #10 vial 04/29/18 [Rx] cefTRIAXone [Rocephin] 2,000 mg IVPB DAILY #20 vial 04/29/18 [Rx] metroNIDAZOLE [Flagyl] 500 mg PO TID #54 tablet 04/29/18 [Rx] Allergies/Adverse Reactions: 3 Allergy/AdvReac Type Severity Reaction Status Date / Time ciprofloxacin [From Cipro] Allergy Hives Verified 03/29/18 21:41 meperidine [From Demerol] AdvReac Vomiting Verified 03/29/18 21:41 Date of admission: 04/02/18 09:46 Primary care physician: Lokesh Cooper MD Consults: 04/04/18 10:33 Consult to Surgery [CONS] Routine Consulting Provider: [facility] Reason for Consult: s/p appendectomy with hematoma, now causing R hydronephrosis with worsening Cr Time Notified: 10:40 Call Completed: Yes 04/04/18 10:44 Consult to Urology [CONS] Routine Consulting Provider: [facility] [place] Reason for Consult: R hydronephrosis with worsening Cr due to extrinsinc compression from post-surgical fluid collection. ?need for intervention Time Notified: 10:45 Call Completed: Yes 04/05/18 08:00 Consult to Interventional Radiology [CONS] Routine Consulting Provider: [facility]iology [facility] Reason for Consult: complex fluid collection in pelvis post lap appendectomy , now causing R hydronephrosis. For IR guided drainage Time Notified: 08:30 Call Completed: Yes 04/07/18 13:13 Consult to Occupational Therapy [CONS] Routine Comment: Evaluate, develop and implement POC Reason for Consult: physical deconditioning Does patient have active BEDREST order?: No Is patient medically & hemodynamically stable?: Yes Patient assessed for mobility or mobilized this visit?: No Consult to Physical Therapy [CONS] Routine Comment: Evaluate, develop and implement POC Reason for Consult: physical deconditioning. Does patient have active BEDREST order?: No Is patient medically & hemodynamically stable?: Yes Patient assessed for mobility or mobilized this visit?: No 04/12/18 13:13 Consult to Surgery [CONS] Routine Consulting Provider: [facility] Reason for Consult: Pelvic fluid; possible abscess. Time Notified: 13:15 Call Completed: Yes 04/12/18 17:45 Consult to Infectious Diseases [CONS] Routine Consulting Provider: Infectious [facility] [place] Reason for Consult: infected hematoma Time Notified: 17:45 Call Completed: No 04/19/18 11:04 Consult to Interventional Radiology [CONS] Routine Consulting Provider: Radiology [facility] Reason for Consult: please place another intraabdominal abscess drain, cultures ordered Time Notified: 11:04 Call Completed: Yes 04/23/18 12:09 Consult to Nephrology [CONS] Routine Consulting Provider: [facility] [place] Reason for Consult: kidney failure Call Completed: Yes 04/26/18 14:13 Consult to Interventional Radiology [CONS] Routine Consulting Provider: [facility] Reason for Consult: tunneled picc line for ABx Call Completed: No Discharging clinician: Timmy Lockett Anticipated date of discharge: 04/29/18 - Constitutional Vitals: Temp Pulse Resp BP Pulse Ox 98.0 F 82 16 102/74 99 04/29/18 09:53 04/29/18 09:53 04/29/18 09:53 04/29/18 09:53 04/29/18 09:53 General appearance: Present: A&O X 3, obese, answers questions appropriately - Eye Additional comments: Blindness - Respiratory Respiratory exam: Present: CTAB. Absent: accessory muscle use, rales, rhonchi, wheezes - Cardiovascular Cardiovascular exam: Present: RRR, +S1, +S2. Absent: diastolic murmur, gallop, rubs, systolic murmur - GI/Abdominal GI/Abdominal exam: Present: normal bowel sounds, soft, tenderness (Around KARAN drain site), no peritoneal signs. Absent: distended - Extremities Exam Extremities exam: Present: pedal edema, warm, radial pulses palpable and symmetrical. Absent: calf tenderness, cyanotic Additional comments: Pedal edema and swelling in both upper extremities. Improving overall. - Neurological Exam Neurological exam: Present: alert, CN II-XII intact, oriented X3, no focal deficits. Absent: facial droop, speech deficit - Skin Skin exam: Present: dry, intact - Patient Status Disposition: Transfer SNF Condition: Undetermined Functional capacity at discharge: bed bound Overall status at discharge: patient is not back to baseline - Discharge Instructions Follow Up With: Crystal Jimenez MD [Partnered Physician] - 05/13/18 9:55 am Grace Hicks MD [Partnered Physician] - 05/12/18 1:50 pm Lokesh Cooper MD [Primary Care Provider] - (In 1-2 weeks) - Diet and Activity Activity: as per physical therapy Diet: low fat, low cholesterol, low salt diet - VTE Documentation of Mechanical Device: Intermittent pneumatic compression device
--- NOTE | 2018-04-29 14:19 | Physician Discharge Referral ---
ExtendedCare Referral Info Provider in Charge after Transfer: PCP Institutional Level of Care: Intermediate - Diagnosis (1) Infected hematoma following procedure Priority: Primary Status: Acute (2) Atrial fibrillation Priority: Secondary Status: Chronic (3) Anemia Priority: Secondary Status: Chronic (4) Chronic kidney disease, stage IV (severe) Priority: Secondary Status: Chronic (5) Abdominal pain Priority: Secondary Status: Acute (6) Anasarca Priority: Secondary Status: Acute (7) Acute thrombosis of cephalic vein Priority: Secondary Status: Acute (8) Diarrhea Priority: Secondary Status: Resolved Prognosis: Fair Aware of Diagnosis: Patient Aware of Prognosis: Patient - Transfer Medications Prescriptions: Acetaminophen [Tylenol] 650 mg PO Q4HR PRN #60 tablet PRN Reason: Pain Calcium Carbonate [Tums] 1,000 mg PO Q4HR PRN #30 tab.chew PRN Reason: Heartburn cefTRIAXone [Rocephin] 2,000 mg IVPB DAILY #20 vial Ferrous Sulfate 325 mg PO BIDWM #60 tablet Lactobacillus [Culturelle] 1 each PO BID #60 cap.sprink Metoprolol [Lopressor] 12.5 mg PO BID #30 tablet metroNIDAZOLE [Flagyl] 500 mg PO TID #54 tablet Vancomycin [Vancocin] 500 each IV Q48H #10 vial Home Medications: Cyclosporine [Restasis] 1 drop BOTH EYES BID 04/30/15 [History] Potassium Chloride 20 meq PO DAILY 06/19/16 [History] Calcitriol [Rocaltrol] 0.25 mcg PO DAILY 03/20/17 [History] Albuterol Sulfate [Albuterol Inhaler] 2 puff IH Q4HR PRN 08/27/17 [History] Atorvastatin Calcium [Lipitor] 20 mg PO HS 10/06/17 [History] Esomeprazole Magnesium [Nexium] 40 mg PO DAILY 10/06/17 [History] Aspirin Enteric Coated [Aspirin EC] 81 mg PO DAILY tablet. 11/02/17 [Rx] Amiodarone [Cordarone] 200 mg PO DAILY 11/28/17 [History] Docusate [Colace] 100 mg PO BID PRN capsule 12/02/17 [Rx] Fluticasone Propionate Nasal [Flonase] 50 mcg NS DAILY bottle 12/02/17 [Rx] GuaiFENesin Liq [Robitussin Liq] 200 mg PO Q4HR PRN 02/11/18 [History] Furosemide [Lasix] 40 mg PO DAILY 03/09/18 [History] Quetiapine Fumarate [Seroquel] 50 mg PO HS 03/09/18 [History] Fluticasone/Vilanterol [Breo Ellipta 100-25 Mcg INH] 1 puff IH DAILY 03/29/18 [ History] Loperamide [Imodium] 2 mg PO Q6H PRN 03/29/18 [History] Ondansetron [Zofran] 8 mg PO Q6H PRN 03/29/18 [History] Oxycodone HCl [Oxaydo] 5 mg PO QID PRN 03/29/18 [History] Acetaminophen [Tylenol] 650 mg PO Q4HR PRN #60 tablet 04/29/18 [Rx] Bisacodyl [Dulcolax] 10 mg RC DAILY PRN supp.rect 04/29/18 [Rx] Calcium Carbonate [Tums] 1,000 mg PO Q4HR PRN #30 tab.chew 04/29/18 [Rx] Ferrous Sulfate 325 mg PO BIDWM #60 tablet 04/29/18 [Rx] Lactobacillus [Culturelle] 1 each PO BID #60 cap.sprink 04/29/18 [Rx] Loratadine [Claritin] 10 mg PO Q48H #0 04/29/18 [Rx] Metoprolol [Lopressor] 12.5 mg PO BID #30 tablet 04/29/18 [Rx] Vancomycin [Vancocin] 500 each IV Q48H #10 vial 04/29/18 [Rx] cefTRIAXone [Rocephin] 2,000 mg IVPB DAILY #20 vial 04/29/18 [Rx] metroNIDAZOLE [Flagyl] 500 mg PO TID #54 tablet 04/29/18 [Rx] Allergies/Adverse Reactions: 3 Allergy/AdvReac Type Severity Reaction Status Date / Time ciprofloxacin [From Cipro] Allergy Hives Verified 03/29/18 21:41 meperidine [From Demerol] AdvReac Vomiting Verified 03/29/18 21:41 - Respiratory Orders Smoking Cessation: Smoking cessation has been advised. For more information, call the [employer] Tobacco Quit Line at 1-290-RDJK-NOW. - Lab Orders Lab Orders: Other (include drug levels w/frequency) (Please check CBC, basic panel, ESR, CRP and Vancomycin trough levels every Thursday while receiving IV antibiotics) - Advance Directives Code Status: Full Code - Mobility Orders Other (per PT) - Rehabiliation Orders Rehab Potential: Fair Rehab Orders: Evaluation for Physical Therapy, Evaluation for Occupational Therapy - Treatments List/Other: KARAN drains care; - Diet Orders Cardiac CERTIFICATION: I certify that the transfer of the above named patient to an Extended Care Facility is necessary for the continuing treatment of the diagnosis listed. The above information is true and accurate reflection of patient's current condition. Confidential - Redisclosure prohibited without a patient's written consent.
[2018-04-29] MEDS: cefTRIAXone 2,000 MG in Water for inj. (sterile) 20 ML 20 ML IVP SCH (16:01)
[2018-04-29] MEDS ORDERED: Aminoglycoside Consult 1 EACH MC ONE (17:59)
== END 2018-04-29 18:00 | DRG 862 ==
LOC: EMEROO 11:38 → 3ANU 11:38 → SUATTDRO 18:57 → 3ANU 20:09 → SUATTDRO 04-02 09:46
PROVIDERS: ADMIT Internal Medicine Nephrology; ATTEND Internal Medicine
PROC: IRDRAIN (2018-04-19 12:00)

== ENCOUNTER 2018-05-12 12:55 | Inpatient (IN) ==
[2018-05-12] MEDS ORDERED: *HR* Dextrose 50 % in Water (Syg) 50 ML SYRINGE ONE (14:55)
[2018-05-12] MEDS ORDERED: Naloxone 0.4 MG/ML INJ IVP PRN (15:28)
[2018-05-12] MEDS ORDERED: Artificial Tears SOLN 15 ML BOTTLE BOTH EYES PRN (15:28)
[2018-05-12] MEDS ORDERED: D5% in Water 1,000 ML IVC PRN (15:43)
[2018-05-12] MEDS ORDERED: Dextrose Gel 15 GM/37.5 ML TUBE PO PRN ×2 (15:43)
--- NOTE | 2018-05-12 15:48 | General Surgery Consult Note ---
Date of Encounter: 05/12/18 Time of Encounter: 15:30 Assessment and Plan (1) Infected hematoma following procedure Current Visit: No Status: Acute NPO due to intubation Continue Pigtail drains- place smaller bulbs on drains (notified RN) IV antibiotics have been managed per ID- recommend consultation Supportive care No acute surgical intervention indicated Surgery will continue to follow and assess progress and make recommendations History of Present Illness Consult date: 05/12/18 Reason for consult: other (Hx of intra-abdominal abscess; s/p appendectomy) History of present illness: Patient is a 72-year-old female who presented to the ED with abdominal pain and pain with urination. Patient is status post Appendectomy on 03/10/18. Also status post cholecystectomy, hysterectomy and cardiac valve repair. Patient has several comorbidities. Her appendectomy was complicated by a post-operative hematoma which became infected. She was admitted to the hospital on 03/29/18 and had drains placed per IR which are currently in place. She was discharged to [facility] for rehabilitation on 04/29/18. The patient was intubated at [facility] and is currently unable to provide any information. The information is the chart was pulled from medical records sent with the patient from [facility]. The patient reportedly had hematemesis this morning and EMS was called. The patient was minimally responsive and she was intubated to protect her airway. She did have an OG tube placed at [facility] and there has been no reported bloody drainage since insertion. The patient's Hgb is 10.7 on presentation at [facility]. Her INR is 1.23. Her occult stool is negative for blood. She does have [address] (intra-abdominal) which are draining purulent, foul smelling drainage. She did have CT of the chest/abdomen/pelvis which will be uploaded to PACS. We have been asked to see and evaluate the patient for recommendations. Past Med Surg Social Fam HX - Past Medical History Source: old records reviewed Medical history: arthritis, asthma, atrial fibrillation, CHF, COPD, GERD, hyperlipidemia, hypertension, osteoporosis, renal disease, venous stasis, valvular heart disease, other Additional medical history: blind Psychiatric history: anxiety, depression - Past Surgical History Surgical History: cataract, cholecystectomy, heart valve replacement, herniorrhaphy, hysterectomy, knee replacement, orthopedic, other, sinus surgery , other Additional surgical history: lung surgery - right pleurodesis secondary to pleural effusions after cardiac surgery. "Ross" heart procedure- 1994 [facility] - Social History Smoking Status: Never smoker Smokeless Tobacco Status: No Alcohol use: none Drug use: none Current living situation: ECF - Family History Father Adopted: No Family Member Ethnicity: Non- Living Status: Hx Family Cardiac Disorders: Yes (HD, Pig valve, HD) Hx Family Cancer: Yes (Cancer on lip) Hx Family GI Disorders: Yes (CKD) Hx Family Endocrine Disorder: Yes (Gallstones) Sister Family Member Ethnicity: Non- Living Status: Hx Family Endocrine Disorder: Yes (DM) Mother Adopted: No Family Member Ethnicity: Non- Living Status: Hx Family Cardiac Disorders: Yes (HD, Anemia) Medications and Allergies Cyclosporine [Restasis] 1 drop BOTH EYES BID 04/30/15 [History] Potassium Chloride 20 meq PO DAILY 06/19/16 [History] Calcitriol [Rocaltrol] 0.25 mcg PO DAILY 03/20/17 [History] Albuterol Sulfate [Albuterol Inhaler] 2 puff IH Q4HR PRN 08/27/17 [History] Atorvastatin Calcium [Lipitor] 20 mg PO HS 10/06/17 [History] Esomeprazole Magnesium [Nexium] 40 mg PO DAILY 10/06/17 [History] Aspirin Enteric Coated [Aspirin EC] 81 mg PO DAILY tablet. 11/02/17 [Rx] Amiodarone [Cordarone] 200 mg PO DAILY 11/28/17 [History] Docusate [Colace] 100 mg PO BID PRN capsule 12/02/17 [Rx] Fluticasone Propionate Nasal [Flonase] 50 mcg NS DAILY bottle 12/02/17 [Rx] GuaiFENesin Liq [Robitussin Liq] 200 mg PO Q4HR PRN 02/11/18 [History] Furosemide [Lasix] 40 mg PO DAILY 03/09/18 [History] Quetiapine Fumarate [Seroquel] 50 mg PO HS 03/09/18 [History] Fluticasone/Vilanterol [Breo Ellipta 100-25 Mcg INH] 1 puff IH DAILY 03/29/18 [ History] Loperamide [Imodium] 2 mg PO Q6H PRN 03/29/18 [History] Ondansetron [Zofran] 8 mg PO Q6H PRN 03/29/18 [History] Oxycodone HCl [Oxaydo] 5 mg PO QID PRN 03/29/18 [History] Acetaminophen [Tylenol] 650 mg PO Q4HR PRN #60 tablet 04/29/18 [Rx] Bisacodyl [Dulcolax] 10 mg RC DAILY PRN supp.rect 04/29/18 [Rx] Calcium Carbonate [Tums] 1,000 mg PO Q4HR PRN #30 tab.chew 04/29/18 [Rx] Ferrous Sulfate 325 mg PO BIDWM #60 tablet 04/29/18 [Rx] Lactobacillus [Culturelle] 1 each PO BID #60 cap.sprink 04/29/18 [Rx] Loratadine [Claritin] 10 mg PO Q48H #0 04/29/18 [Rx] Metoprolol [Lopressor] 12.5 mg PO BID #30 tablet 04/29/18 [Rx] Vancomycin [Vancocin] 500 each IV Q48H #10 vial 04/29/18 [Rx] cefTRIAXone [Rocephin] 2,000 mg IVPB DAILY #20 vial 04/29/18 [Rx] metroNIDAZOLE [Flagyl] 500 mg PO TID #54 tablet 04/29/18 [Rx] 3 Allergy/AdvReac Type Severity Reaction Status Date / Time ciprofloxacin [From Cipro] Allergy Hives Verified 03/29/18 21:41 meperidine [From Demerol] AdvReac Vomiting Verified 03/29/18 21:41 Review of Systems ROS unobtainable: due to endotracheal tube All systems PM: The remainder of the systems were reviewed and are negative General Surgery Exam Initial Vital Signs Resp Pulse Ox 13 100 05/12/18 14:45 05/12/18 14:45 - General physical appearance chronically ill, other (Patient sedated and on ventilator support) - Eyes PERRL - ENT normal mucosa, atraumatic, normocephalic - Neck trachea midline - Respiratory clear to auscultation, other (Patient intubated and on ventilator support) - Abdomen Abdomen general surgery: Present: bowel sounds present, soft, non tender (no grimace with palpation), wound (Pigtail drain X 2 with purulent, foul smelling drainage noted) - Incision Incision: Present: clean and dry, intact - Integumentary Integumentary general surgery: Present: warm and dry - Psychiatric Psychiatric general surgery: Present: other (Unable to assess) Exam Initial Vital Signs Resp Pulse Ox 13 100 05/12/18 14:45 05/12/18 14:45 Results - Labs All other labs normal. Consult Discharge Plan - Plan Referrals: Lokesh Cooper MD [Primary Care Provider] - - Attending Attestation For this encounter, I have reviewed the OIL REFINERY PROCESS TECHNICIAN or PA documentation, treatment plan, and medical decision making; and I have had face to face time with this patient.
[2018-05-12] MEDS: *HR* Dextrose 50 % in Water (Syg) 50 ML SYRINGE IVP PRN ×2 (15:58→17:57)
[2018-05-12 16:08] LABS: Eosinophils % 1.7 %; Immature Granulocytes % 0.7 % (0-4); Red Cell Distribution Width 19.8 % (11.5-14.5)
[2018-05-12 16:10] LABS: Eosinophils # 0.1 K/mcL (0.0-0.6); Hematocrit 29.3 % (35.3-44.9); Hemoglobin 9.3 g/dL (11.5-15.4); Immature Platelets 2.4 % (1.1-6.1); Lymphocytes # 0.6 K/mcL (0.6-4.6); Mean Corpuscular HGB Conc 31.7 g/dL (31.6-35.5); Mean Corpuscular Hemoglobin 29.9 pg (28.0-33.3); Mean Corpuscular Volume 94.2 fL (83.0-100.0); Mean Platelet Volume 9.5 fL (9.4-12.4); Monocytes # 0.2 K/mcL (0.0-1.3); Monocytes % 5.4 %; Neutrophils # 3.2 K/mcL (1.6-8.9); Platelet Count 104 K/mcL (140-400); Red Blood Count 3.11 M/mcL (3.82-4.97); Segmented Neutrophils % 77.2 %
[2018-05-12 16:26] LABS: Albumin/Globulin Ratio 0.9 (1.1-2.2); Bilirubin,Total 0.3 mg/dL (0.3-1.0); Calcium 7.1 mg/dL (8.6-10.3); Globulin 2.3 g/dL (2.4-3.5); Magnesium 1.3 mg/dL (1.6-2.6); Potassium 2.9 mEq/L (3.5-5.1); Total Protein 4.3 g/dL (6.4-8.9)
[2018-05-12] MEDS: FentaNYL (PF) 1,000 MCG in 0.9 % Sodium Chloride 80 ML IVC SCH (16:27)
[2018-05-12 16:39] LABS: Hypochromasia Present (Not Present)
[2018-05-12] MEDS: Artificial Tears SOLN 15 ML BOTTLE BOTH EYES SCH ×2 (16:39→20:04)
[2018-05-12 16:40] LABS: ABG Base Excess -1 mEq/L (-2 to 3); ABG HCO3 22 mEq/L (21-27); ABG Oxygen Saturation 99 % (95-98); ABG PCO2 29 mmHg (35-45); ABG PH 7.49 pH Units (7.32-7.45); ABG PO2 108 mmHg (85-104); ABG TCO2 23 mEq/L (20-26); Blood Gas Modality VC; Blood Gas PEEP 5 cm H2O; Blood Gas Respiration Rate 12; Blood Gas VT 430 cc
[2018-05-12] MEDS ORDERED: Potassium Phosphate 44 MEQ in 0.9 % Sodium Chloride 250 ML IVPB PRN (16:47)
[2018-05-12] MEDS: Potassium Chloride Elixir 20 MEQ/15 ML UDC GTUBE SCH ×2 (16:48→22:52)
[2018-05-12] MEDS: Piperacillin/Tazobactam 3.375 GM in 0.9 % Sodium Chloride Mini Bag 100 ML IVPB SCH (16:56)
[2018-05-12] MEDS: Pantoprazole 40 MG VIAL IVP SCH (16:57)
--- NOTE | 2018-05-12 17:34 | Pulmonology History & Physical ---
<Lloyd Mcginnis - Last Filed: 05/12/18 17:32> Date of Encounter: 05/12/18 Time of Encounter: 17:33 Assessment and Plan (1) Acute respiratory failure with hypoxia Current visit: No Status: Acute Etiology unclear. Patient was apparently found unresponsive at the intermediate with blood in her mouth. No evidence of active bleeding at this time. Patient is currently intubated on mechanical ventilation which she is tolerating well. When sedation is lightened she is able to open her eyes, or spot verbal stimuli and follows basic commands. Except low oxygenation and ventilation. Continue mechanical ventilation and plan for spontaneous awake trial morning. (2) Infected hematoma following procedure Current visit: No Status: Acute Patient currently being treated with an extended course of IV antibiotics for infected intra-abdominal hematoma. Was on vanc, ceftriaxone, metronidazole at the intermediate. Has started vancomycin and Zosyn here. Does not appear to be septic at this time. Not requiring pressors, lactate normal. If the patient decompensates then we will consider adding antifungal regimen given that the patient had fungal elements on recent culture. Consider ID consult in the morning. (3) Chronic kidney disease, stage III (moderate) Current visit: No Status: Acute Creatinine appears to baseline. Good urine output. Continue to monitor. Electrolyte replacement per protocol. (4) COPD (chronic obstructive pulmonary disease) Current visit: No Status: Chronic Stable. Does not appear to be in acute exacerbation. No indication for steroids at this time. Continue mechanical ventilation as above and as needed bronchodilators. Qualifiers: COPD type: unspecified COPD Qualified Code(s): J44.9 - Chronic obstructive pulmonary disease, unspecified (5) GERD (gastroesophageal reflux disease) Current visit: No Status: Chronic Patient reportedly had blood in her mouth at outside facility however no evidence of bleeding at this time. Hemoglobin stable. We will start Protonix 40 mg twice a day Qualifiers: Esophagitis presence: esophagitis presence not specified Qualified Code(s) : K21.9 - Gastro-esophageal reflux disease without esophagitis (6) Atrial fibrillation Current visit: No Status: Acute Rate controlled. No anticoagulation due to concern for possible bleed as discussed above. Qualifiers: Atrial fibrillation type: persistent Qualified Code(s): I48.1 - Persistent atrial fibrillation (7) HLD (hyperlipidemia) Current visit: No Status: Chronic Qualifiers: Hyperlipidemia type: mixed hyperlipidemia Qualified Code(s): E78.2 - Mixed hyperlipidemia (8) HTN (hypertension) Current visit: No Status: Chronic Qualifiers: Hypertension type: essential hypertension Qualified Code(s): I10 - Essential (primary) hypertension (9) DVT prophylaxis Current visit: No Status: Acute EPCDs for now given concern for bleeding History of Present Illness Chief complaint: Unresponsive HPI: Ms. Barber is a 72 year old female with history of recent intra-abdominal abscess currently on IV antibiotics presented to outside emergency department unresponsive. Patient is currently intubated and sedated and there is no family present so history is extremely limited and obtained from the medical record. Patient was apparently found unresponsive at the intermediate and transported to the emergency department where she was intubated. The cause of this is unclear at this time. On evaluation the patient this afternoon she would respond to verbal stimuli, answer yes and no questions appropriately, and follow basic commands. She does not appear to be in any acute distress. Past Med Surg Social Fam HX - Past Medical History Medical history: arthritis, asthma, atrial fibrillation, CHF, COPD, GERD, hyperlipidemia, hypertension, osteoporosis, renal disease, venous stasis, valvular heart disease, other Additional medical history: blind Psychiatric history: anxiety, depression - Past Surgical History Surgical History: cataract, cholecystectomy, heart valve replacement, herniorrhaphy, hysterectomy, knee replacement, orthopedic, other, sinus surgery , other Additional surgical history: lung surgery - right pleurodesis secondary to pleural effusions after cardiac surgery. "Ross" heart procedure- 1994 [facility] - Social History Smoking Status: Never smoker Smokeless Tobacco Status: No Alcohol use: none Drug use: none - Family History Father Adopted: No Family Member Ethnicity: Non- Living Status: Hx Family Cardiac Disorders: Yes (HD, Pig valve, HD) Hx Family Cancer: Yes (Cancer on lip) Hx Family GI Disorders: Yes (CKD) Hx Family Endocrine Disorder: Yes (Gallstones) Sister Family Member Ethnicity: Non- Living Status: Hx Family Endocrine Disorder: Yes (DM) Mother Adopted: No Family Member Ethnicity: Non- Living Status: Hx Family Cardiac Disorders: Yes (HD, Anemia) Medications and Allergies Cyclosporine [Restasis] 1 drop BOTH EYES BID 04/30/15 [History] Potassium Chloride 20 meq PO DAILY 06/19/16 [History] Calcitriol [Rocaltrol] 0.25 mcg PO DAILY 03/20/17 [History] Albuterol Sulfate [Albuterol Inhaler] 2 puff IH Q4HR PRN 08/27/17 [History] Atorvastatin Calcium [Lipitor] 20 mg PO HS 10/06/17 [History] Esomeprazole Magnesium [Nexium] 40 mg PO DAILY 10/06/17 [History] Aspirin Enteric Coated [Aspirin EC] 81 mg PO DAILY tablet. 11/02/17 [Rx] Amiodarone [Cordarone] 200 mg PO DAILY 11/28/17 [History] Docusate [Colace] 100 mg PO BID PRN capsule 12/02/17 [Rx] Fluticasone Propionate Nasal [Flonase] 50 mcg NS DAILY bottle 12/02/17 [Rx] GuaiFENesin Liq [Robitussin Liq] 200 mg PO Q4HR PRN 02/11/18 [History] Furosemide [Lasix] 40 mg PO DAILY 03/09/18 [History] Quetiapine Fumarate [Seroquel] 50 mg PO HS 03/09/18 [History] Fluticasone/Vilanterol [Breo Ellipta 100-25 Mcg INH] 1 puff IH DAILY 03/29/18 [ History] Loperamide [Imodium] 2 mg PO Q6H PRN 03/29/18 [History] Ondansetron [Zofran] 8 mg PO Q6H PRN 03/29/18 [History] Oxycodone HCl [Oxaydo] 5 mg PO QID PRN 03/29/18 [History] Acetaminophen [Tylenol] 650 mg PO Q4HR PRN #60 tablet 04/29/18 [Rx] Bisacodyl [Dulcolax] 10 mg RC DAILY PRN supp.rect 04/29/18 [Rx] Calcium Carbonate [Tums] 1,000 mg PO Q4HR PRN #30 tab.chew 04/29/18 [Rx] Ferrous Sulfate 325 mg PO BIDWM #60 tablet 04/29/18 [Rx] Lactobacillus [Culturelle] 1 each PO BID #60 cap.sprink 04/29/18 [Rx] Loratadine [Claritin] 10 mg PO Q48H #0 04/29/18 [Rx] Metoprolol [Lopressor] 12.5 mg PO BID #30 tablet 04/29/18 [Rx] Vancomycin [Vancocin] 500 each IV Q48H #10 vial 04/29/18 [Rx] cefTRIAXone [Rocephin] 2,000 mg IVPB DAILY #20 vial 04/29/18 [Rx] metroNIDAZOLE [Flagyl] 500 mg PO TID #54 tablet 04/29/18 [Rx] 3 Allergy/AdvReac Type Severity Reaction Status Date / Time ciprofloxacin [From Cipro] Allergy Hives Verified 03/29/18 21:41 meperidine [From Demerol] AdvReac Vomiting Verified 03/29/18 21:41 ROS unobtainable: due to endotracheal tube All Systems: The remainder of the systems were reviewed and are negative Physical Examination Vital Signs: Vital Signs, Last 4 Hours Temp Pulse Resp BP Pulse Ox 05/12/18 17:20 15 110/88 100 05/12/18 17:00 73 20 110/68 100 05/12/18 16:20 12 89/58 100 05/12/18 16:00 74 12 89/58 100 05/12/18 15:37 74 05/12/18 15:15 72 05/12/18 14:48 97.1 F L 71 13 123/80 99 05/12/18 14:45 13 100 General appearance: no acute distress ENT: oropharynx dry Effort: normal Inspection: other (Tunnelled IV line present in the right anterior chest wall, no surrounding erythema or drainage noted) Auscultation: bilateral: diminished breath sounds Cardiovascular: regular rate and rhythm Gastrointestinal: normoactive bowel sounds, soft, non-tender, other (2 KARAN drains present to the abdomen draining purulent material. Dressing applied over these drains) Extremities: no cyanosis, no clubbing, edema (1+ lower extremities bilaterally) Musculoskeletal: no deformities unable to assess due to mental status Results - Laboratory Findings CBC and BMP: 05/12/18 15:29 05/12/18 15:28 ABG ABG pH 7.49 pH Units (7.32-7.45) H 05/12/18 16:37 ABG pCO2 29 mmHg (35-45) L 05/12/18 16:37 ABG pO2 108 mmHg (85-104) H 05/12/18 16:37 ABG O2 Saturation 99 % (95-98) H 05/12/18 16:37 Abnormal lab findings: Abnormal lab results WBC 4.1 K/mcL (4.3-11.1) L 05/12/18 15: RBC 3.11 M/mcL (3.82-4.97) L 05/12/18 15:29 Hgb 9.3 g/dL (11.5-15.4) L 05/12/18 15: Hct 29.3 % (35.3-44.9) L 05/12/18 15: RDW 19.8 % (11.5-14.5) H 05/12/18 15:29 Plt Count 104 K/mcL (140-400) L 05/12/18 15:29 Hypochromasia Present (Not Present) A 05/12/18 15:29 ABG pH 7.49 pH Units (7.32-7.45) H 05/12/18 16:37 ABG pCO2 29 mmHg (35-45) L 05/12/18 16:37 ABG pO2 108 mmHg (85-104) H 05/12/18 16:37 ABG O2 Saturation 99 % (95-98) H 05/12/18 16:37 Potassium 2.9 mEq/L (3.5-5.1) L 05/12/18 15:28 Chloride 108 mEq/L (98-107) H 05/12/18 15:28 Creatinine 1.30 mg/dL (0.60-1.20) H 05/12/18 15:28 Est GFR ( Amer) 49 (> 60) L 05/12/18 15:28 Est GFR (Non-Af Amer) 40 (> 60) L 05/12/18 15:28 Glucose 119 mg/dL (70-105) H 05/12/18 15:28 Calcium 7.1 mg/dL (8.6-10.3) L 05/12/18 15:28 Magnesium 1.3 mg/dL (1.6-2.6) L 05/12/18 15:28 ALT 5 Units/L (7-52) L 05/12/18 15:28 Serum Total Protein 4.3 g/dL (6.4-8.9) L 05/12/18 15:28 Albumin 2.0 g/dL (3.5-5.7) L 05/12/18 15:28 Globulin 2.3 g/dL (2.4-3.5) L 05/12/18 15:28 Albumin/Globulin Ratio 0.9 (1.1-2.2) L 05/12/18 15:28 <Fernando Najera S - Last Filed: 05/12/18 21:56> Date of Encounter: 05/12/18 History of Present Illness HPI: Ms. Barber is a 72 year old female All Systems: The remainder of the systems were reviewed and are negative Physical Examination Vital Signs: Vital Signs, Last 4 Hours Temp Pulse Resp BP Pulse Ox 05/12/18 20:52 96.2 F L 05/12/18 19:39 78 05/12/18 18:00 75 14 110/67 100 Results - Laboratory Findings CBC and BMP: 05/12/18 15:29 05/12/18 15:28 ABG ABG pH 7.49 pH Units (7.32-7.45) H 05/12/18 16:37 ABG pCO2 29 mmHg (35-45) L 05/12/18 16:37 ABG pO2 108 mmHg (85-104) H 05/12/18 16:37 ABG O2 Saturation 99 % (95-98) H 05/12/18 16:37 Abnormal lab findings: Abnormal lab results WBC 4.1 K/mcL (4.3-11.1) L 05/12/18 15:29 RBC 3.11 M/mcL (3.82-4.97) L 05/12/18 15:29 Hgb 9.3 g/dL (11.5-15.4) L 05/12/18 15:29 Hct 29.3 % (35.3-44.9) L 05/12/18 15:29 RDW 19.8 % (11.5-14.5) H 05/12/18 15:29 Plt Count 104 K/mcL (140-400) L 05/12/18 15:29 Hypochromasia Present (Not Present) A 05/12/18 15:29 ABG pH 7.49 pH Units (7.32-7.45) H 05/12/18 16:37 ABG pCO2 29 mmHg (35-45) L 05/12/18 16:37 ABG pO2 108 mmHg (85-104) H 05/12/18 16:37 ABG O2 Saturation 99 % (95-98) H 05/12/18 16:37 Potassium 2.9 mEq/L (3.5-5.1) L 05/12/18 15:28 Chloride 108 mEq/L (98-107) H 05/12/18 15:28 Creatinine 1.30 mg/dL (0.60-1.20) H 05/12/18 15:28 Est GFR ( Amer) 49 (> 60) L 05/12/18 15:28 Est GFR (Non-Af Amer) 40 (> 60) L 05/12/18 15:28 Glucose 119 mg/dL (70-105) H 05/12/18 15:28 Calcium 7.1 mg/dL (8.6-10.3) L 05/12/18 15:28 Magnesium 1.3 mg/dL (1.6-2.6) L 05/12/18 15:28 ALT 5 Units/L (7-52) L 05/12/18 15:28 Serum Total Protein 4.3 g/dL (6.4-8.9) L 05/12/18 15:28 Albumin 2.0 g/dL (3.5-5.7) L 05/12/18 15:28 Globulin 2.3 g/dL (2.4-3.5) L 05/12/18 15:28 Albumin/Globulin Ratio 0.9 (1.1-2.2) L 05/12/18 15:28 - Attending Attestation I saw and evaluated this patient and my medical decision-making was reviewed with the Resident Physician. I agree with the documented findings, disposition and treatment plan as described except to the extent set forth below. We independently had [id number] contact with the patient I spent 40 minutes of Critical Care time with this patient. It involved decision making of high complexity to assess, manipulate, and support vital organ system failure and/or to prevent further life threatening deterioration of the patient's condition. The time involved in the performance of separately reportable procedures was not counted toward critical care time. Patient seen and examined at bedside Labs, radiology, chart personally reviewed. Management was reviewed during multidisciplinary critical care rounds. [employer]ING [employer]CH[employer]IC: Patient is intubated and sedated when she wakes up and follows commands and clear etiology of encephalopathy may be due to underlying infectious process , spontaneous awakening trial tomorrow. Pulm: Supple oxygenation and ventilation no attempt low tidal volume strategy no significant consolidation or pneumonia found in the chest x-ray. Cards: And is hemodynamically stable no evidence of acute coronary syndrome as of now we will continue to monitor. Will be nothing by mouth FEN-GI: Gen. be nothing by mouth. Patient has this complicated pelvic abscess will consult surgery for further evaluation. Renal: Lab and urine output reviewed. ID:Patient has complicated pelvic abscess was on long-term antibiotic vancomycin ceftriaxone and Flagyl patient is getting her antibiotic [facility] at [email or web address] Patient also has fungal elements in the body fluid culture . If patient developing septic shock will order Anti fungal for now add Zosyn to Vancomycin . ID consult tomorrow . Heme/Onc: Thromboprophylaxis Endo: Glucose Monitored Integ/MSK: Skin Care per routine ICU Nursing Protocol to prevent ulcers. Lines: All lines examined without evidence of infection : Dispo: Critically ill CODE: Full Code
[2018-05-12] MEDS: Insulin LISPRO 300 UNITS/3 ML VIAL SQ SCH (17:59)
[2018-05-12] MEDS ORDERED: *HR* Heparin 5,000 UNIT/ML VIAL SQ SCH (18:00)
[2018-05-12] MEDS: Chlorhexidine Rinse 15 ML MOUTHWASH MM SCH (20:03)
[2018-05-13] MEDS: Artificial Tears SOLN 15 ML BOTTLE BOTH EYES SCH ×6 (00:17→19:20)
[2018-05-13] MEDS: Insulin LISPRO 300 UNITS/3 ML VIAL SQ SCH ×3 (00:21→12:30)
[2018-05-13] MEDS: *HR* Dextrose 50 % in Water (Syg) 50 ML SYRINGE IVP PRN ×2 (00:23→01:26)
[2018-05-13] MEDS: Piperacillin/Tazobactam 3.375 GM in 0.9 % Sodium Chloride Mini Bag 100 ML IVPB SCH ×3 (00:28→16:24)
[2018-05-13] MEDS: FentaNYL (PF) 1,000 MCG in 0.9 % Sodium Chloride 80 ML IVC SCH (01:19)
[2018-05-13 04:39] LABS: Basophils % 0.1 %; Eosinophils # 0.1 K/mcL (0.0-0.6); Hematocrit 34.6 % (35.3-44.9); Immature Granulocytes % 0.9 % (0-4); Lymphocytes # 1.1 K/mcL (0.6-4.6); Lymphocytes % 15.5 %; Mean Corpuscular HGB Conc 31.8 g/dL (31.6-35.5); Mean Corpuscular Hemoglobin 30.1 pg (28.0-33.3); Mean Corpuscular Volume 94.5 fL (83.0-100.0); Monocytes # 0.4 K/mcL (0.0-1.3); Monocytes % 5.1 %; Neutrophils # 5.2 K/mcL (1.6-8.9); Platelet Count 110 K/mcL (140-400); Red Blood Count 3.66 M/mcL (3.82-4.97); Red Cell Distribution Width 19.9 % (11.5-14.5); Segmented Neutrophils % 76.4 %
[2018-05-13 04:41] LABS: VBG Ionized Calcium 1.03 mmol/L (1.15-1.35)
[2018-05-13 04:43] LABS: INR 1.2; Prothrombin Time 13.3 Seconds (9.4-12.1)
[2018-05-13 05:01] LABS: Albumin 2.4 g/dL (3.5-5.7); Albumin/Globulin Ratio 0.9 (1.1-2.2); Bilirubin,Total 0.4 mg/dL (0.3-1.0); Calcium 7.2 mg/dL (8.6-10.3); Globulin 2.6 g/dL (2.4-3.5); Magnesium 1.8 mg/dL (1.6-2.6); Potassium 3.6 mEq/L (3.5-5.1)
[2018-05-13 05:14] LABS: ABG Base Excess -1 mEq/L (-2 to 3); ABG HCO3 24 mEq/L (21-27); ABG Oxygen Saturation 99 % (95-98); ABG PCO2 40 mmHg (35-45); ABG PH 7.38 pH Units (7.32-7.45); ABG PO2 122 mmHg (85-104); ABG TCO2 25 mEq/L (20-26); Blood Gas Modality ASSIST CONTROL; Blood Gas PEEP 5 cm H2O; Blood Gas Respiration Rate 12; Blood Gas VT 350 cc
[2018-05-13 05:37] LABS: Phosphorous 2.1 mg/dL (2.7-4.5)
[2018-05-13] MEDS: Pantoprazole 40 MG VIAL IVP SCH ×2 (05:59→17:02)
[2018-05-13] MEDS: Chlorhexidine Rinse 15 ML MOUTHWASH MM SCH ×2 (08:12→19:20)
--- NOTE | 2018-05-13 09:58 | General Surgery Progress Note ---
<Ericka Louise Fred - Last Filed: 05/13/18 09:56> Date of Encounter: 05/13/18 Time of Encounter: 09:45 - Assessment and Plan (1) Infected hematoma following procedure Current Visit: No Status: Acute May resume diet after evaluation by speech therapy- okay for soft from surgery standpoint Continue Pigtail drains IV antibiotics- Zosyn and Vancomycin ID consulted for management of antibiotics Supportive care No acute surgical intervention indicated at this time Subjective Patient reports: no new complaints, feels better, still having pain (lower abdominal discomfort and sore throat), no bowel movement, afebrile, other ( Patient extubated this morning. Awake and alert with no acute distress noted.) Objective Vital Signs - Last 8 Hours Temp Pulse Resp BP Pulse Ox 05/13/18 09:41 99 05/13/18 09:00 91 14 127/90 99 05/13/18 08:43 21 97 05/13/18 08:00 94 12 148/83 99 05/13/18 07:00 97.5 F L 98 18 142/84 100 05/13/18 06:30 22 126/77 100 05/13/18 06:00 93 12 120/86 100 05/13/18 05:00 78 17 126/75 100 05/13/18 04:35 96.4 F L 05/13/18 04:00 73 12 105/69 100 05/13/18 03:23 12 104/72 99 05/13/18 03:00 75 12 104/72 99 05/13/18 02:00 72 15 107/88 100 Intake and Output 05/12/18 05/13/18 05/13/18 23:59 07:59 15:59 Intake Total 722 / 722 292 / 292 174 / 174 Output Total 330 / 330 305 / 305 Balance 392 / 392 -13 / -13 174 / 174 Intake: IV Fluids 722 / 722 292 / 292 174 / 174 FentaNYL (PF) 1,000 MCG In 0.9 82 / 82 70 / 70 % Sodium Chloride 80 ML @ 50 MCG/HR 5 mls/hr IVC CONT DEREK Rx #:[id number] Calcium Gluconate 1,000 MG In 0 110 / 110 .9 % Sodium Chloride 100 ML @ 220 mls/hr IVPB Q6HR PRN Rx#: [id number] Magnesium Sulfate 2 GM In 0.9 % 104 / 104 104 / 104 Sodium Chloride 100 ML @ 52 mls/hr IVPB Q6H PRN Rx#: [id number] Zosyn 3.375 GM In 0.9 % Sodium 100 / 100 100 / 100 Chloride (Mini-Bag +) 100 ML @ 25 mls/hr IVPB Q8H [facility] Rx#: [id number] Vancocin 1,750 MG In 0.9 % 500 / 500 Sodium Chloride 500 ML @ 334. 014 mls/hr IVPB Q24H [facility] Rx#: [id number] Oral 0 / 0 Output: Catheter 300 / 300 225 / 225 Gastric Drainage 50 / 50 Wound Drainage / 30 30 / 30 Left Medial Abdomen 30 30 Other: Weight 109.9 kg Blood Glucose* 95 96 Patient Weight 05/13/18 23:59 Weight 109.9 kg - General physical appearance well developed, no distress, chronically ill - Eyes PERRL - ENT dry mucosa, atraumatic, normocephalic - Neck Neck exam: trachea midline - Respiratory normal respiratory effort, clear to auscultation, other (diminished bibasilar bases) - Cardiovascular Cardiovascular exam: Present: RRR - Abdomen Abdomen: Present: bowel sounds present, soft, tender, wound (Pigtail drains X 2 (suprapubic and LLQ) with small amount of purulent drainage noted (30ml noted from each drain since admission)) Abdominal Tenderness: RLQ, LLQ, suprapubic - Incision Incision: Present: clean and dry, intact - Genitourinary other (herrera catheter to SD with yellow urine noted) - Musculoskeletal other (physical deconditioning noted) - Psychiatric oriented to person, oriented to place, speech is normal - Labs 05/13/18 04:18 05/13/18 04:18 Diabetes panel 05/12/18 05/13/18 Range/Units 15:28 04:18 Sodium 138 134 L (136-145) mEq/L Potassium 2.9 L 3.6 (3.5-5.1) mEq/L Chloride 108 H 113 H (98-107) mEq/L Carbon Dioxide 25 23 (23-29) mEq/L BUN 14 13 (8-23) mg/dL Creatinine 1.30 H 1.31 H (0.60-1.20) mg/dL Glucose 119 H 102 (70-105) mg/dL Calcium 7.1 L 7.2 L (8.6-10.3) mg/dL AST 14 14 (13-39) Units/L ALT 5 L 5 L (7-52) Units/L Alkaline Phosphatase 63 72 (34-104) Units/L Albumin 2.0 L 2.4 L (3.5-5.7) g/dL Calcium panel 05/12/18 05/13/18 Range/Units 15:28 04:18 Calcium 7.1 L 7.2 L (8.6-10.3) mg/dL Phosphorus 2.1 L (2.7-4.5) mg/dL Albumin 2.0 L 2.4 L (3.5-5.7) g/dL Pituitary panel 05/12/18 05/13/18 Range/Units 15:28 04:18 Sodium 138 134 L (136-145) mEq/L Potassium 2.9 L 3.6 (3.5-5.1) mEq/L Chloride 108 H 113 H (98-107) mEq/L Carbon Dioxide 25 23 (23-29) mEq/L BUN 14 13 (8-23) mg/dL Creatinine 1.30 H 1.31 H (0.60-1.20) mg/dL Glucose 119 H 102 (70-105) mg/dL Calcium 7.1 L 7.2 L (8.6-10.3) mg/dL Adrenal panel 18 05/13/18 Range/Units 15:28 04:18 Sodium 138 134 L (136-145) mEq/L Potassium 2.9 L 3.6 (3.5-5.1) mEq/L Chloride 108 H 113 H (98-107) mEq/L Carbon Dioxide 25 23 (23-29) mEq/L BUN 14 13 (8-23) mg/dL Creatinine 1.30 H 1.31 H (0.60-1.20) mg/dL Glucose 119 H 102 (70-105) mg/dL Calcium 7.1 L 7.2 L (8.6-10.3) mg/dL Total Bilirubin 0.3 0.4 (0.3-1.0) mg/dL AST 14 14 (13-39) Units/L ALT 5 L 5 L (7-52) Units/L Alkaline Phosphatase 63 72 (34-104) Units/L Albumin 2.0 L 2.4 L (3.5-5.7) g/dL - VTE Documentation of Mechanical Device: Intermittent pneumatic compression device Consult Discharge Plan - Plan Referrals: Lokesh Cooper MD [Primary Care Provider] - - Attending Attestation For this encounter, I have reviewed the ECONOMIC FORECASTER or PA documentation, treatment plan, and medical decision making; and I have had face to face time with this patient. <Crystal Jimenez - Last Filed: 05/13/18 16:21> Date of Encounter: 05/13/18 - Assessment and Plan (1) Infected hematoma following procedure Current Visit: No Status: Acute Abdomen is soft and minimally tender at best, patient has anasarca. CT scan of the abdomen and pelvis was personally reviewed by myself in the infected hematoma is much smaller. Continue drains. Antibiotics per infectious disease. We will continue to follow along with patient's care as an outpatient. Subjective Patient reports: feels better, no bowel movement, shortness of breath, afebrile Objective Vital Signs - Last 8 Hours Temp Pulse Resp BP Pulse Ox 05/13/18 15:00 93 16 130/84 99 05/13/18 14:00 87 16 116/72 98 05/13/18 13:00 93 16 100 05/13/18 12:00 97.1 F L 80 16 118/95 100 05/13/18 11:00 92 18 116/89 100 05/13/18 10:00 82 18 133/86 100 05/13/18 09:41 99 05/13/18 09:00 91 14 127/90 99 05/13/18 08:43 21 97 Intake and Output 05/13/18 05/13/18 05/13/18 07:59 15:59 23:59 Intake Total 292 / 292 384 / 384 Output Total 305 / 305 50 / 50 Balance -13 / -13 334 / 334 Intake: IV Fluids 292 / 292 384 / 384 FentaNYL (PF) 1,000 MCG In 0.9 82 / 82 70 / 70 % Sodium Chloride 80 ML @ 50 MCG/HR 5 mls/hr IVC CONT DEREK Rx #:[id number] Calcium Gluconate 1,000 MG In 0 110 / 110 110 / 110 .9 % Sodium Chloride 100 ML @ 220 mls/hr IVPB Q6HR PRN Rx#: [id number] Magnesium Sulfate 2 GM In 0.9 % 104 / 104 Sodium Chloride 100 ML @ 52 mls/hr IVPB Q6H PRN Rx#: [id number] Zosyn 3.375 GM In 0.9 % Sodium 100 / 100 100 / 100 Chloride (Mini-Bag +) 100 ML @ 25 mls/hr IVPB Q8H [facility] Rx#: [id number] Oral 0 / 0 0 / 0 Output: Catheter 225 / 225 50 / 50 Gastric Drainage 50 / 50 Wound Drainage 30 / 30 Left Medial Abdomen Other: Weight 109.9 kg Blood Glucose* 96 74 Patient Weight 05/13/18 23:59 Weight 109.9 kg - General physical appearance well developed, no distress, chronically ill - Eyes PERRL - ENT dry mucosa, normocephalic - Neck Neck exam: trachea midline - Respiratory normal expansion, normal respiratory effort - Cardiovascular Cardiovascular exam: Present: RRR - Abdomen Abdomen: Present: soft, tender (anasarca) Additional Comments: drains with purulent drainage - Incision Incision: Present: clean and dry, intact - Neurologic CN 2-12 grossly intact - Musculoskeletal normal posture - Psychiatric oriented to time, oriented to person, oriented to place, speech is normal, memory intact - Labs 05/13/18 04:18 05/13/18 11:53 Diabetes panel 05/12/18 05/13/18 05/13/18 Range/Units 15:28 04:18 11:53 Sodium 138 134 L (136-145) mEq/L Potassium 2.9 L 3.6 3.6 (3.5-5.1) mEq/L Chloride 108 H 113 H (98-107) mEq/L Carbon Dioxide 25 23 (23-29) mEq/L BUN 14 13 (8-23) mg/dL Creatinine 1.30 H 1.31 H (0.60-1.20) mg/dL Glucose 119 H 102 (70-105) mg/dL Calcium 7.1 L 7.2 L (8.6-10.3) mg/dL AST 14 14 (13-39) Units/L ALT 5 L 5 L (7-52) Units/L Alkaline Phosphatase 63 72 (34-104) Units/L Albumin 2.0 L 2.4 L (3.5-5.7) g/dL Calcium panel 05/12/18 05/13/18 Range/Units 15:28 04:18 Calcium 7.1 L 7.2 L (8.6-10.3) mg/dL Phosphorus 2.1 L (2.7-4.5) mg/dL Albumin 2.0 L 2.4 L (3.5-5.7) g/dL Pituitary panel 05/12/18 05/13/18 05/13/18 Range/Units 15:28 04:18 11:53 Sodium 138 134 L (136-145) mEq/L Potassium 2.9 L 3.6 3.6 (3.5-5.1) mEq/L Chloride 108 H 113 H (98-107) mEq/L Carbon Dioxide 25 23 (23-29) mEq/L BUN 14 13 (8-23) mg/dL Creatinine 1.30 H 1.31 H (0.60-1.20) mg/dL Glucose 119 H 102 (70-105) mg/dL Calcium 7.1 L 7.2 L (8.6-10.3) mg/dL Adrenal panel 05/12/18 05/13/18 05/13/18 Range/Units 15: 04:18 11:53 Sodium 138 134 L (136-145) mEq/L Potassium 2.9 L 3.6 3.6 (3.5-5.1) mEq/L Chloride 108 H 113 H (98-107) mEq/L Carbon Dioxide 25 23 (23-29) mEq/L BUN 14 13 (8-23) mg/dL Creatinine 1.30 H 1.31 H (0.60-1.20) mg/dL Glucose 119 H 102 (70-105) mg/dL Calcium 7.1 L 7.2 L (8.6-10.3) mg/dL Total Bilirubin 0.3 0.4 (0.3-1.0) mg/dL AST 14 14 (13-39) Units/L ALT 5 L 5 L (7-52) Units/L Alkaline Phosphatase 63 72 (34-104) Units/L Albumin 2.0 L 2.4 L (3.5-5.7) g/dL - Attending Attestation I have personally performed a face to face evaluation on this patient. I have reviewed and agree with the care plan. History and Exam by me shows:
[2018-05-13 12:10] LABS: VBG Ionized Calcium 1.06 mmol/L (1.15-1.35)
[2018-05-13 12:47] LABS: Magnesium 2.1 mg/dL (1.6-2.6); Potassium 3.6 mEq/L (3.5-5.1)
--- NOTE | 2018-05-13 13:36 | Pulmonology Progress Note ---
<Lili Vo - Last Filed: 05/13/18 18:56> Date of Encounter: 05/13/18 Time of Encounter: 13:36 Assessment and Plan (1) Acute respiratory failure with hypoxia Current Visit: No Status: Acute Etiology unclear. Patient was apparently found unresponsive at the [facility] with blood in her mouth. No evidence of active bleeding at this time. She is extubated and is comfortable on 2 liters with 99% oxygen saturation. She is awake and alert and comfortable in bed. (2) Infected hematoma following procedure Current Visit: No Status: Acute Patient currently being treated with an extended course of IV antibiotics for infected intra-abdominal hematoma. Blood cultures from the outside facility were gram + cocci. Blood cultures here, preliminary is negative. She was discharged on 04/29/18 for the complicated abdominal abcess and intra-abdominal hematoma. Was on vanc, ceftriaxone, metronidazole at the [facility]. Has started vancomycin and Zosyn here. Does not appear to be septic at this time. Not requiring pressors, lactate normal. If the patient decompensates then we will consider adding antifungal regimen given that the patient had fungal elements on recent culture. ID is consulted. (3) COPD (chronic obstructive pulmonary disease) Current Visit: No Status: Chronic Stable. Has history of COPD. She does not appear to be in acute exacerbation. THere is no indicated for steroids. Albuterol as needed. Qualifiers: COPD type: unspecified COPD Qualified Code(s): J44.9 - Chronic obstructive pulmonary disease, unspecified (4) GERD (gastroesophageal reflux disease) Current Visit: Yes Status: Acute Has history of GERD. She was reported to have blood in her mouth at outside facility however there was no evidence of blood this loss at this time. Stopped the protonix IV BID and started the home dose of nexium. Qualifiers: Esophagitis presence: esophagitis presence not specified Qualified Code(s) : K21.9 - Gastro-esophageal reflux disease without esophagitis (5) HLD (hyperlipidemia) Current Visit: Yes Status: Acute History of hyperlipidemia, can start home lipitor tomorrow. Qualifiers: Hyperlipidemia type: unspecified Qualified Code(s): E78.5 - Hyperlipidemia , unspecified (6) Chronic kidney disease, stage 3 Current Visit: Yes Status: Chronic She has history of stage three kidney disease. She is on home lasix. Her home lasix was restarted today along with metolazone 2.5 mg one time dose. She also received albumin as her urine output was very minimal. She has responded to the therapies and has great urine output now. Her creatinine is baseline. Continue to monitor ad replace electrolytes given we started lasix. (7) Hypokalemia Current Visit: Yes Status: Acute Presenting potassium was 2.9 and she is on electrolyte protocol and receiving replacement potassium. Her repeat potassium today was 3.6. She is on diet now. Continue to monitor and replace as needed. (8) Hypocalcemia Current Visit: Yes Status: Acute Her presenting calcium was 7.1 and she is on replacement calcium. It is likely due to poor nutrition intake, her albumin was low as well. She is receiving replacement calcium gluconate. Continue to monitor. (9) Atrial fibrillation Current Visit: Yes Status: Acute History of atrial fibrillation. Since her presentation her heart rate has been controlled but her rhythm has remained irregular. Her home amiodarone is being restarted tomorrow as she is now able to have PO intake. Qualifiers: Atrial fibrillation type: persistent Qualified Code(s): I48.1 - Persistent atrial fibrillation (10) Depression Current Visit: Yes Status: Acute Started home dose of seroquel. Qualifiers: Depression Type: unspecified Qualified Code(s): F32.9 - Major depressive disorder, single episode, unspecified (11) DVT prophylaxis Current Visit: Yes Status: Acute EPCDs due to concern for bleeding Subjective Principal diagnosis: unresponsive Interval history: Ms. Barber was seen at bedside this morning. She was awake and alert this morning and was extubated. She is on 2 liters of nasal canula and has oxygen saturation of 99%. She has history of recent intra-abdominal abscess for which she was admitted in 03/29/18 and discharged on 04/29/18. She is comfortable in bed, she denies fever, chills, nausea, emesis, shortness of breath or chest pain. She does complain of abdominal pain only when palpating. Speech evaluated her this afternoon and she can tolerate oral diet. She is now producing urine after starting albumin. Objective PUL Vital signs: Last Vital Signs Temp 97.1 F L 05/13/18 12:00 Pulse 93 05/13/18 13:00 Resp 16 05/13/18 13:00 BP 118/95 05/13/18 12:00 Pulse Ox 100 05/13/18 13:00 General appearance: no acute distress Eyes: nonicteric ENT: oropharynx moist Auscultation: bilateral: clear Cardiovascular: irregular rhythm (a fib) Gastrointestinal: normoactive bowel sounds, tender (mild tenderness at right side of the abdomen near the drain site), non-distended Extremities: no cyanosis, edema (non pitting lower extremity edema) normal mental status (anxious) mood appropriate, affect normal Ventilator Settings Ventilator Settings: Ventilator Settings, Last 8 Hours Ventilator Tidal Volume 350 Setting Ventilator Tidal Volume 350 Setting Ventilator Respiratory Rate 12 Setting Ventilator Respiratory Rate 12 Setting Actual Respiratory Rate 22 Actual Respiratory Rate 12 Positive End Expiratory 5 Pressure Peak Inspiratory Airway 30 Pressure Peak Inspiratory Airway 30 Pressure Peak Inspiratory Airway 23 Pressure Peak Inspiratory Airway 23 Pressure Results - Laboratory Findings CBC and BMP: 05/13/18 04:18 05/13/18 11:53 ABG ABG pH 7.38 pH Units (7.32-7.45) 05/13/18 05:11 ABG pCO2 40 mmHg (35-45) 05/13/18 05:11 ABG pO2 122 mmHg (85-104) H 05/13/18 05:11 ABG O2 Saturation 99 % (95-98) H 05/13/18 05:11 PT/INR, D-dimer PT 13.3 Seconds (9.4-12.1) H 05/13/18 04:18 Abnormal lab findings: Abnormal lab results RBC 3.66 M/mcL (3.82-4.97) L 05/13/18 04:18 Hgb 11.0 g/dL (11.5-15.4) L D 05/13/18 04:18 Hct 34.6 % (35.3-44.9) L 05/13/18 04:18 RDW 19.9 % (11.5-14.5) H 05/13/18 04:18 Plt Count 110 K/mcL (140-400) L 05/13/18 04:18 Hypochromasia Present (Not Present) A 05/12/18 15:29 PT 13.3 Seconds (9.4-12.1) H 05/13/18 04:18 ABG pO2 122 mmHg (85-104) H 05/13/18 05:11 ABG O2 Saturation 99 % (95-98) H 05/13/18 05:11 Sodium 134 mEq/L (136-145) L 05/13/18 04:18 Chloride 113 mEq/L (98-107) H 05/13/18 04:18 Creatinine 1.31 mg/dL (0.60-1.20) H 05/13/18 04:18 Est GFR ( Amer) 48 (> 60) L 05/13/18 04:18 Est GFR (Non-Af Amer) 40 (> 60) L 05/13/18 04:18 Calculated Osmolality 278 (280-300) L 05/13/18 04:18 Calcium 7.2 mg/dL (8.6-10.3) L 05/13/18 04:18 Venous Ioniz Calcium 1.06 mmol/L (1.15-1.35) L 05/13/18 12:08 Phosphorus 2.1 mg/dL (2.7-4.5) L 05/13/18 04:18 ALT 5 Units/L (7-52) L 05/13/18 04:18 Serum Total Protein 5.0 g/dL (6.4-8.9) L 05/13/18 04:18 Albumin 2.4 g/dL (3.5-5.7) L 05/13/18 04:18 Albumin/Globulin Ratio 0.9 (1.1-2.2) L 05/13/18 04:18 - Microbiology Findings Microbiology Findings: Microbiology, Last 48 Hours 05/13/18 13:05 Blood Culture - Preliminary Central Venous Catheter Culture is incubating and being continuously monitored for growth. Final report to follow. - Clinical Findings Intake & Output: Intake & Output 05/12/18 05/13/18 05/13/18 23:59 07:59 15:59 Intake Total 722 / 722 292 / 292 274 / 274 Output Total 330 / 330 305 / 305 50 / 50 Balance 392 / 392 -13 / -13 224 / 224 Weight 109.9 kg - VTE Documentation of Mechanical Device: Intermittent pneumatic compression device Consult Discharge Plan - Plan Referrals: Lokesh Cooper MD [Primary Care Provider] - <Fernando Najera - Last Filed: 05/13/18 23:44> Date of Encounter: 05/13/18 Objective PUL Vital signs: Last Vital Signs Temp 97.6 F 05/13/18 19:35 Pulse 90 05/13/18 23:00 Resp 16 05/13/18 23:00 BP 106/65 05/13/18 23:00 Pulse Ox 100 05/13/18 23:00 Results - Laboratory Findings CBC and BMP: 05/13/18 04:18 05/13/18 11:53 ABG ABG pH 7.38 pH Units (7.32-7.45) 05/13/18 05:11 ABG pCO2 40 mmHg (35-45) 05/13/18 05:11 ABG pO2 122 mmHg (85-104) H 05/13/18 05:11 ABG O2 Saturation 99 % (95-98) H 05/13/18 05:11 PT/INR, D-dimer PT 13.3 Seconds (9.4-12.1) H 05/13/18 04:18 Abnormal lab findings: Abnormal lab results RBC 3.66 M/mcL (3.82-4.97) L 05/13/18 04:18 Hgb 11.0 g/dL (11.5-15.4) L D 05/13/18 04:18 Hct 34.6 % (35.3-44.9) L 05/13/18 04:18 RDW 19.9 % (11.5-14.5) H 05/13/18 04:18 Plt Count 110 K/mcL (140-400) L 05/13/18 04:18 Hypochromasia Present (Not Present) A 05/12/18 15:29 PT 13.3 Seconds (9.4-12.1) H 05/13/18 04:18 ABG pO2 122 mmHg (85-104) H 05/13/18 05:11 ABG O2 Saturation 99 % (95-98) H 05/13/18 05:11 Sodium 134 mEq/L (136-145) L 05/13/18 04:18 Chloride 113 mEq/L (98-107) H 05/13/18 04:18 Creatinine 1.31 mg/dL (0.60-1.20) H 05/13/18 04:18 Est GFR ( Amer) 48 (> 60) L 05/13/18 04:18 Est GFR (Non-Af Amer) 40 (> 60) L 05/13/18 04:18 Calculated Osmolality 278 (280-300) L 05/13/18 04:18 Calcium 7.2 mg/dL (8.6-10.3) L 05/13/18 04:18 Venous Ioniz Calcium 1.06 mmol/L (1.15-1.35) L 05/13/18 12:08 Phosphorus 2.1 mg/dL (2.7-4.5) L 05/13/18 04:18 ALT 5 Units/L (7-52) L 05/13/18 04:18 Serum Total Protein 5.0 g/dL (6.4-8.9) L 05/13/18 04:18 Albumin 2.4 g/dL (3.5-5.7) L 05/13/18 04:18 Albumin/Globulin Ratio 0.9 (1.1-2.2) L 05/13/18 04:18 - Microbiology Findings Microbiology Findings: Microbiology, Last 48 Hours 05/13/18 13:05 Blood Culture - Preliminary Peripheral Venipuncture Culture is incubating and being continuously monitored for growth. Final report to follow. 05/13/18 13:05 Blood Culture - Preliminary Peripheral Venipuncture Culture is incubating and being continuously monitored for growth. Final report to follow. 05/13/18 13:05 Blood Culture - Preliminary Central Venous Catheter Culture is incubating and being continuously monitored for growth. Final report to follow. - Clinical Findings Intake & Output: Intake & Output 05/13/18 05/13/18 05/13/18 07:59 15:59 23:59 Intake Total 292 / 292 384 / 384 250 / 250 Output Total 305 / 305 50 / 50 900 / 900 Balance -13 / -13 334 / 334 -650 / -650 Weight 109.9 kg - Attending Attestation - Attending Attestation I saw and evaluated this patient and my medical decision-making was reviewed with the Resident Physician. I agree with the documented findings, disposition and treatment plan as described except to the extent set forth below. We independently had [id number] contact with the patient I spent 33 minutes of Critical Care time with this patient. It involved decision making of high complexity to assess, manipulate, and support vital organ system failure and/or to prevent further life threatening deterioration of the patient's condition. The time involved in the performance of separately reportable procedures was not counted toward critical care time. Patient seen and examined at bedside Labs, radiology, chart personally reviewed. Management was reviewed during multidisciplinary critical care rounds. INVENTORY SPECIALIST MANAGER: Patient is intubated and sedated when she wakes up and follows commands and clear etiology of encephalopathy may be due to underlying infectious process , spontaneous awakening trial tomorrow. 05/13 Patient is awake and following commands Pulm: Supple oxygenation and ventilation no attempt low tidal volume strategy no significant consolidation or pneumonia found in the chest x-ray. Acceptable oxygenation and ventilation patient doing well on CPAP trial will extubate her today . Cards: And is hemodynamically stable no evidence of acute coronary syndrome as of now we will continue to monitor. FEN-GI: After extubation advance diet as tolerated . Renal: Lab and urine output reviewed. ID:Patient has complicated pelvic abscess was on long-term antibiotic vancomycin ceftriaxone and Flagyl patient is getting her antibiotic [facility]. Patient also has fungal elements in the body fluid culture . If patient developing septic shock will order Anti fungal for now add Zosyn to Vancomycin . ID consult tomorrow . 05/13 To continue broad spectrum antibiotics ID on Consult Heme/Onc: Thromboprophylaxis Endo: Glucose Monitored Integ/MSK: Skin Care per routine ICU Nursing Protocol to prevent ulcers. Lines: All lines examined without evidence of infection : Dispo: High chance of respiratory decline CODE: Full Code
[2018-05-13] MEDS: metOLazone 2.5 MG TABLET PO SCH (14:54)
[2018-05-13] MEDS: Furosemide 40 MG/4 ML VIAL IVP SCH (14:54)
[2018-05-14] MEDS: Artificial Tears SOLN 15 ML BOTTLE BOTH EYES SCH ×5 (00:05→18:34)
[2018-05-14] MEDS: Piperacillin/Tazobactam 3.375 GM in 0.9 % Sodium Chloride Mini Bag 100 ML IVPB SCH ×3 (00:06→17:48)
[2018-05-14 04:43] LABS: Calcium 7.8 mg/dL (8.6-10.3); Potassium 3.3 mEq/L (3.5-5.1)
[2018-05-14 05:45] LABS: Basophils % 0.2 %; Eosinophils # 0.2 K/mcL (0.0-0.6); Hematocrit 29.1 % (35.3-44.9); Immature Granulocytes % 0.9 % (0-4); Lymphocytes # 0.8 K/mcL (0.6-4.6); Lymphocytes % 17.4 %; Mean Corpuscular HGB Conc 30.9 g/dL (31.6-35.5); Mean Platelet Volume 10.3 fL (9.4-12.4); Monocytes # 0.3 K/mcL (0.0-1.3); Neutrophils # 3.2 K/mcL (1.6-8.9); Segmented Neutrophils % 71.5 %
[2018-05-14 05:59] LABS: Platelet Count 95 K/mcL (140-400)
[2018-05-14] MEDS ORDERED: Vancomycin 500 MG in 0.9 % Sodium Chloride Mini Bag 100 ML IVPB ONE (06:00)
[2018-05-14] MEDS: metOLazone 2.5 MG TABLET PO SCH (08:19)
[2018-05-14] MEDS: Furosemide 40 MG/4 ML VIAL IVP SCH (08:20)
[2018-05-14] MEDS: Chlorhexidine Rinse 15 ML MOUTHWASH MM SCH (08:42)
[2018-05-14] MEDS ORDERED: *HR* Amiodarone 200 MG TABLET PO SCH (09:00)
[2018-05-14] MEDS ORDERED: Lidocaine 1% 20 ML MDV INFILT ONE (09:38)
[2018-05-14] MEDS ORDERED: Vancomycin 1 EACH in EMPTY BAG 1 EACH IVPB SCH ×2 (10:00→15:46)
--- NOTE | 2018-05-14 10:10 | General Surgery Progress Note ---
Date of Encounter: 05/14/18 Time of Encounter: 08:45 - Assessment and Plan (1) Infected hematoma following procedure Current Visit: No Status: Acute Tolerating a cardiac diet without difficulty Continue Pigtail drains IV antibiotics- Zosyn and Vancomycin ID consulted for management of antibiotics Supportive care No acute surgical intervention indicated at this time Will plan to re-secure drains today Surgery will sign off and patient will need to follow-up as outpatient for management of drains Subjective Patient reports: no new complaints, feels better, tolerating a regular diet, flatus, bowel movement, afebrile Objective Vital Signs - Last 8 Hours Temp Pulse Resp BP Pulse Ox 05/14/18 08:42 92 05/14/18 08:02 92 16 128/85 99 05/14/18 07:43 96.8 F L 05/14/18 07:00 92 121/81 05/14/18 06:00 96 20 100/44 100 05/14/18 05:05 97.6 F 05/14/18 05:00 90 14 89/70 100 05/14/18 04:00 81 14 117/74 100 05/14/18 03:00 82 14 96/66 100 Intake and Output 05/13/18 05/14/18 05/14/18 23:59 07:59 15:59 Intake Total 350 / 350 350 / 350 Output Total 1350 / 1350 520 / 520 Balance -1000 / -1000 -170 / -170 Intake: IV Fluids 350 / 350 350 / 350 ALBURX 5% 12.5 gm In 250 ml @ 250 / 250 250 / 250 60 mls/hr IVC .[id number] DEREK Rx#: [id number] Zosyn 3.375 GM In 0.9 % Sodium 100 / 100 100 / 100 Chloride (Mini-Bag +) 100 ML @ 25 mls/hr IVPB Q8H DEREK Rx#: [id number] Output: Catheter 1350 / 1350 500 / 500 Wound Drainage 20 / 20 Left Lower Abdomen 0 / 0 Left Medial Abdomen 20 / 20 Other: Stool Size Small Stool Consistency soft Stool Color Brown Weight 109.7 kg 110.1 kg Blood Glucose* 76 Patient Weight 05/14/18 23:59 Weight 110.1 kg - General physical appearance no distress, chronically ill - Eyes PERRL - ENT normal mucosa, atraumatic, normocephalic - Neck Neck exam: trachea midline - Respiratory normal respiratory effort, clear to auscultation, other (Diminished bibasilar bases) - Cardiovascular Cardiovascular exam: Present: RRR - Abdomen Abdomen: Present: bowel sounds present, soft, tender, wound (KARAN drain X 2 with purulent drainage noted ) Abdominal Tenderness: RLQ, LLQ, suprapubic - Incision Incision: Present: clean and dry, intact - Genitourinary other (herrera catheter to SD ) - Musculoskeletal other (severe physical deconditioning) - Psychiatric oriented to person, oriented to place, speech is normal, memory intact - Labs 05/14/18 04:00 05/14/18 04:00 Diabetes panel 05/13/18 05/14/18 Range/Units 11:53 04:00 Sodium 142 (136-145) mEq/L Potassium 3.6 3.3 L (3.5-5.1) mEq/L Chloride 109 H (98-107) mEq/L Carbon Dioxide 26 (23-29) mEq/L BUN 12 (8-23) mg/dL Creatinine 1.33 H (0.60-1.20) mg/dL Glucose 78 (70-105) mg/dL Calcium 7.8 L (8.6-10.3) mg/dL Calcium panel 05/14/18 Range/Units 04:00 Calcium 7.8 L (8.6-10.3) mg/dL Pituitary panel 05/13/18 05/14/18 Range/Units 11:53 04:00 Sodium 142 (136-145) mEq/L Potassium 3.6 3.3 L (3.5-5.1) mEq/L Chloride 109 H (98-107) mEq/L Carbon Dioxide 26 (23-29) mEq/L BUN 12 (8-23) mg/dL Creatinine 1.33 H (0.60-1.20) mg/dL Glucose 78 (70-105) mg/dL Calcium 7.8 L (8.6-10.3) mg/dL Adrenal panel 05/13/18 05/14/18 Range/Units 11:53 04:00 Sodium 142 (136-145) mEq/L Potassium 3.6 3.3 L (3.5-5.1) mEq/L Chloride 109 H (98-107) mEq/L Carbon Dioxide 26 (23-29) mEq/L BUN 12 (8-23) mg/dL Creatinine 1.33 H (0.60-1.20) mg/dL Glucose 78 (70-105) mg/dL Calcium 7.8 L (8.6-10.3) mg/dL - VTE Documentation of Mechanical Device: Intermittent pneumatic compression device Consult Discharge Plan - Plan Additional Instructions: KARAN drain X 2- cleanse around drains with soap and water and pat dry daily, apply split 4X4 gauze and tape to secure daily. Empty drains 2 times per day and records outputs (mls) and bring to follow-up appointment on 05/20/18. Referrals: Lokesh Cooper MD [Primary Care Provider] - Ericka Louise CNP [Advanced Practice Nurse] - 05/20/18 10:30 am (hospital follow-up)
--- NOTE | 2018-05-14 11:34 | Infectious Disease Consult ---
Date of Encounter: 05/15/18 Time of Encounter: 11:18 Assessment and Plan (1) Bacteremia Status: Acute Assessment and plan: Causative organism: Enterococcus. Final ID and susceptibilities are pending. Source: Unclear. The patient does have a pelvic fluid collection that appears to be decreased in size from previous exams. Previous cultures did grow out enterococcus faecium. She also has a tunneled PICC line which is also a potential source. [facility]2 out of 2 sets for enterococcus species. Final ID and susceptibilities are pending. It appears that both sets of cultures were drawn peripherally. Repeat blood cultures obtained here 3 sets (2 peripheral and one from her tunneled PICC line) are pending. No endocarditis stigmata noted on exam. The patient does have a prosthetic heart valve. Depending on the strain of Enterococcus, may need to have TTE prior to discharge. Await finalization of cultures. Will discontinue Vancomycin. The patient's pelvic abscess cultures previously grew E. faecium, which is typically Vanc resistant, although it was reported as sensitive. Since the patient now has Enterococcus bacteremia, will discontinue Vanc and start Daptomycin as I am concerned that maybe this is a VRE until we get susceptibilities back. Start Daptomycin. Will ask pharmacy to assist with dosing due to the patient's CKD. Check baseline CK level. Continue Zosyn 2.375 g IV every 8 hours. If there is a high index of suspicion that the line is infected, we may need to remove it and/or exchange it, although clinically it does not appear infected. Duration of treatment depends on the clinical picture. Monitor renal function for drug toxicity and dosage adjust antibiotics. (2) Infected hematoma following procedure Status: Acute Assessment and plan: Causative organism: S. epi, E. coli x 2, and Enterococcus faecium. Additional culture obtained with new drain placement grew E. coli. Aspergillus also came back on the culture after the patient was discharged, but this is likely a contaminant. CT scan completed 03/29/2018 showed moderate volume of fluid in the pelvis and along the mesentery with subacute blood. Repeat CT of the abdomen and pelvis completed 04/01/18 showed a complex fluid collection within the pelvis, here unchanged in size and the density continued to decrease making the finding concerning for an organizing hematoma, although there was suggestion of possible capsule formation, and the possibility of an abscess should be considered. She also had some increasing right-sided hydronephrosis, but presumably from compression of the distal right ureteral compression. Status post CT-guided placement of abdominal abscess drainage catheter on by interventional radiology. No cultures were obtained at the time of catheter placement, but pathology was negative for malignancy. Culture obtained on 04/10/18 positive for and or coccus fascia, staph epi, and 2 strains of Escherichia coli. Repeat CT scan on 04/12/18 showed a large complex appearing fluid collection likely representing an abscess measuring approximately 17 x 11 x 8 cm in size and appears somewhat decreased in size when compared to the previous examination , however a large amount of fluid remained. Additional repeat CAT scan completed 04/19/18 showed complex large abscess in the lower abdomen and pelvis, unchanged in appearance and only slightly decreased in the size of the large abscess compared to prior examination, possibly secondary to multi loculation with a large amount of fluid remaining in the abscess. New drain placed in the abscess 04/19/18. Repeat CT scan 04/26/18 with PO contrast shows minimal improvement in the intra- abdominal abscess, likely secondary to multiple loculations. No surgical recommendations from the surgery team at that time. Gen. surgery consult and following. Repeat CT scan done at [place] was reviewed by the general surgery team who feels that the abscess has decreased in size. Discontinue Vanc and start Dapto as above. Continue Zosyn 3.375 g IV every 8 hours. Duration of treatment depends on the clinical picture. Originally, the patient was supposed to follow up with ID next week, but given the new incidence of bacteremia, we will likely continue IV antibiotics. Monitor renal function and for drug toxicity and dose adjust antibiotics. (3) Altered mental status Status: Resolved Assessment and plan: Etiology unclear. Based on the documentation, the patient had blood in her mouth and was incontinent of stool. Not sure if she had a seizure or if this was some other issue. CT of the head was negative. Altered mental status seems to have resolved. Continue to monitor closely. Qualifiers: Altered mental status type: unspecified Qualified Code(s): R41.82 - Altered mental status, unspecified (4) Anemia Status: Acute Assessment and plan: Hemoglobin stable around 9. Further workup and management per the primary team. Qualifiers: Anemia type: unspecified type Qualified Code(s): D64.9 - Anemia, unspecified (5) Acute respiratory failure with hypoxia Status: Resolved Assessment and plan: Etiology unclear. Intubated in the ER, but extubated 05/13/18. Resolved. (6) Hypokalemia Status: Resolved (7) Atrial fibrillation Status: Acute Qualifiers: Atrial fibrillation type: persistent Qualified Code(s): I48.1 - Persistent atrial fibrillation (8) HLD (hyperlipidemia) Status: Acute Qualifiers: Hyperlipidemia type: unspecified Qualified Code(s): E78.5 - Hyperlipidemia , unspecified (9) H/O prosthetic heart valve Status: Chronic (10) Chronic kidney disease, stage 3 Status: Chronic (11) GERD (gastroesophageal reflux disease) Status: Acute Qualifiers: Esophagitis presence: esophagitis presence not specified Qualified Code(s) : K21.9 - Gastro-esophageal reflux disease without esophagitis (12) COPD (chronic obstructive pulmonary disease) Status: Chronic Qualifiers: COPD type: unspecified COPD Qualified Code(s): J44.9 - Chronic obstructive pulmonary disease, unspecified Infectious Disease HPI - Data of Consult Patient: known to practice within the last 3 years Consult date: 05/14/18 Requesting Physician: Fernando Najera MD Primary Care Provider: Lokesh Cooper MD - Consult Narrative Reason for consult: Intra-abdominal abscess History of present illness: Ms. Barber is a 72 year old female with a past medical history of asthma, A. fib, CHF, COPD, blindness, hypertension hyperlipidemia, chronic kidney disease, and an intra-abdominal abscess following an appendectomy back in March. The patient was admitted to the hospital May 12 for altered mental status. We are consulted May 14 for further recommendations for intra-abdominal abscess. Briefly, the patient is a 72-year-old female with past medical history as stated above. The patient is well-known to the infectious disease service as we will consult on her case during her most recent hospitalization. At that time, the patient had come back to the hospital for postop hematoma/abscess in the pelvis status post lap appendectomy in February. Cultures grew Escherichia coli 2 stiff different strains, staph epi, enterococcus faecium. She had multiple CT scans while here in the hospital that showed minimal improvement in the abscess and she was discharged to a local extended care facility to complete a prolonged course of IV antibiotics including think, Rocephin, and Flagyl. She was scheduled for repeat CT scan as an outpatient was to follow up with us in the office in about a week. Apparently, on the day of admission, the patient was found unresponsive at the skilled nursing with blood in her mouth and on her down. It is unclear if the patient had actually been vomiting blood or not. Upon arrival to the ER, she was afebrile and hemodynamically stable. Her white blood cell count was normal. Troponin was negative. Her renal function was consistent with her known chronic kidney disease. She had a chest x-ray that showed chronic left pleural thickening. Blood cultures at pain 2 sets. She was intubated in the ER to protect her airway. She was given vancomycin and Rocephin and transferred here for evaluation. Upon arrival here, the patient was intubated and mildly sedated. She was responsive to verbal stimuli and attempted to follow commands. Repeat labs here again reveal a normal white blood cell count with a stable serum creatinine. LFTs were normal. Lactic acid was normal as well. Blood cultures obtained 3 sets here (1 from her tunneled PICC line and 2 from a peripheral stick) are pending. She had a repeat chest x-ray yesterday that showed a left basilar pleural/parenchymal disease that was unchanged from prior exams. Blood cultures obtained in the ER are +2 out of 2 sets for enterococcus, but final ID and susceptibilities are pending. She was extubated yesterday. Currently, the patient is on IV vancomycin Zosyn. We have been asked to evaluate and make further recommendations. During my exam today, the patient does not really remember what happened. She states she has been in her usual state of health until yesterday. She denies any known fevers or rigors. She reports she is chronically cold and has chills. She denies any chest pain. She reports intermittent chronic shortness of breath. She denies any cough. She states overall her appetite has not been very good since her original surgery back in February. She reports chronic intermittent bilateral groin pain, right worse than left. She reports chronic loosely stools 2-3 times per day. She has a chronic indwelling Parks catheter and denies any bladder spasms or dysuria. She denies any oral thrush. She is blind and is not aware of any new skin lesions. CC: Fernando Najera MD Past Med Surg Social Fam HX - Past Medical History Attestation: Yes The following information was validated with the patient. Source: patient, old records reviewed, nursing notes reviewed Medical history: arthritis, asthma, atrial fibrillation, CHF, COPD, GERD, hyperlipidemia, hypertension, osteoporosis, renal disease, venous stasis, valvular heart disease, other Additional medical history: blind Psychiatric history: anxiety, depression - Past Surgical History Surgical History: cataract, cholecystectomy, heart valve replacement, herniorrhaphy, hysterectomy, knee replacement, orthopedic, other, sinus surgery , other Additional surgical history: lung surgery - right pleurodesis secondary to pleural effusions after cardiac surgery. "Ross" heart procedure- 1994 [facility] - Social History Smoking Status: Never smoker Smokeless Tobacco Status: No Alcohol use: none Drug use: none - Family History Father Adopted: No Family Member Ethnicity: Non- Living Status: Hx Family Cardiac Disorders: Yes (HD, Pig valve, HD) Hx Family Cancer: Yes (Cancer on lip) Hx Family GI Disorders: Yes (CKD) Hx Family Endocrine Disorder: Yes (Gallstones) Sister Family Member Ethnicity: Non- Living Status: Hx Family Endocrine Disorder: Yes (DM) Mother Adopted: No Family Member Ethnicity: Non- Living Status: Hx Family Cardiac Disorders: Yes (HD, Anemia) Infectious Disease-CN:Meds Cyclosporine [Restasis] 1 drop BOTH EYES BID 04/30/15 [History] Potassium Chloride 20 meq PO DAILY 06/19/16 [History] Calcitriol [Rocaltrol] 0.25 mcg PO DAILY 03/20/17 [History] Albuterol Sulfate [Albuterol Inhaler] 2 puff IH Q4HR PRN 08/27/17 [History] Atorvastatin Calcium [Lipitor] 20 mg PO HS 10/06/17 [History] Esomeprazole Magnesium [Nexium] 40 mg PO DAILY 10/06/17 [History] Aspirin Enteric Coated [Aspirin EC] 81 mg PO DAILY tablet. 11/02/17 [Rx] Amiodarone [Cordarone] 200 mg PO DAILY 11/28/17 [History] Docusate [Colace] 100 mg PO BID PRN capsule 12/02/17 [Rx] Fluticasone Propionate Nasal [Flonase] 50 mcg NS DAILY bottle 12/02/17 [Rx] GuaiFENesin Liq [Robitussin Liq] 200 mg PO Q4HR PRN 02/11/18 [History] Furosemide [Lasix] 40 mg PO DAILY 03/09/18 [History] Quetiapine Fumarate [Seroquel] 50 mg PO HS 03/09/18 [History] Fluticasone/Vilanterol [Breo Ellipta 100-25 Mcg INH] 1 puff IH DAILY 03/29/18 [ History] Loperamide [Imodium] 2 mg PO Q6H PRN 03/29/18 [History] Ondansetron [Zofran] 8 mg PO Q6H PRN 03/29/18 [History] Acetaminophen [Tylenol] 650 mg PO Q4HR PRN #60 tablet 04/29/18 [Rx] Bisacodyl [Dulcolax] 10 mg RC DAILY PRN supp.rect 04/29/18 [Rx] Calcium Carbonate [Tums] 1,000 mg PO Q4HR PRN #30 tab.chew 04/29/18 [Rx] Ferrous Sulfate 325 mg PO BIDWM #60 tablet 04/29/18 [Rx] Lactobacillus [Culturelle] 1 each PO BID #60 cap.sprink 04/29/18 [Rx] Loratadine [Claritin] 10 mg PO Q48H #0 04/29/18 [Rx] Metoprolol [Lopressor] 12.5 mg PO BID #30 tablet 04/29/18 [Rx] Vancomycin [Vancocin] 500 each IV Q48H #10 vial 04/29/18 [Rx] cefTRIAXone [Rocephin] 2,000 mg IVPB DAILY #20 vial 04/29/18 [Rx] metroNIDAZOLE [Flagyl] 500 mg PO TID #54 tablet 04/29/18 [Rx] 3 Allergy/AdvReac Type Severity Reaction Status Date / Time ciprofloxacin [From Cipro] Allergy Hives Verified 03/29/18 21:41 meperidine [From Demerol] AdvReac Vomiting Verified 03/29/18 21:41 All systems: reviewed and no additional remarkable complaints except as stated Exam - Constitutional Vitals: Temp Pulse Resp BP Pulse Ox 96.8 F L 92 18 116/90 99 05/14/18 07:43 05/14/18 11:05 05/14/18 11:05 05/14/18 11:05 05/14/18 11:05 General appearance: cooperative, morbidly obese, no acute distress - Head Head exam: Present: atraumatic, normal inspection, normocephalic - Eye Additional comments: Conjunctiva clear bilaterally. Patient tracks sound around the room. - ENT ENT exam: Present: mucous membranes moist Additional comments: Ecchymosis noted to the tip of the tongue. No open sores or lesions noted. - Neck Neck exam: Present: normal inspection - Respiratory Respiratory exam: Present: CTAB. Absent: rales, respiratory distress, rhonchi, wheezes - Cardiovascular Cardiovascular exam: Present: irregular rhythm. Absent: tachycardia - GI/Abdominal GI/Abdominal exam: Present: distended (Obese), normal bowel sounds, soft, tenderness (Left lower quadrant) Additional comments: Parks catheter noted to be draining clear yellow urine. KARAN drain x 2 noted to the lower abdomen with small amount of purulent fluid noted. - Extremities Exam Extremities exam: Present: pedal edema (2+ bilateral lower extremities). Absent : joint swelling, tenderness - Neurological Exam Neurological exam: Present: alert, oriented X3, no focal deficits - Psychiatric Psychiatric exam: Present: normal affect, normal mood - Skin Skin exam: Present: dry, intact, normal color, warm - Additional findings Additional findings: Tunneled PICC line noted to the right upper chest with transparent dressing clean, dry, and intact. No erythema, warmth, tenderness, or drainage noted. Infectious Disease CN: Results - Labs CBC & Chem 7: 05/14/18 04:00 05/14/18 04:00 Cultures: Cultures 05/13/18 13:05 Blood Culture - Preliminary Peripheral Venipuncture Culture is incubating and being continuously monitored for growth. Final report to follow. 05/13/18 13:05 Blood Culture - Preliminary Peripheral Venipuncture Culture is incubating and being continuously monitored for growth. Final report to follow. 05/13/18 13:05 Blood Culture - Preliminary Central Venous Catheter Culture is incubating and being continuously monitored for growth. Final report to follow. - VTE Documentation of Mechanical Device: Intermittent pneumatic compression device Consult Discharge Plan - Plan Additional Instructions: KARAN drain X 2- cleanse around drains with soap and water and pat dry daily, apply split 4X4 gauze and tape to secure daily. Empty drains 2 times per day and records outputs (mls) and bring to follow-up appointment on 05/20/18. Referrals: Lokesh Cooper MD [Primary Care Provider] - Ericka Louise CNP [Advanced Practice Nurse] - 05/20/18 10:30 am (hospital follow-up)
[2018-05-14] MEDS ORDERED: Artificial Tears SOLN 15 ML BOTTLE BOTH EYES PRN (15:46)
[2018-05-14] MEDS ORDERED: Potassium Phosphate 44 MEQ in 0.9 % Sodium Chloride 250 ML IVPB PRN (15:46)
[2018-05-14] MEDS ORDERED: Naloxone 0.4 MG/ML INJ IVP PRN (15:46)
--- NOTE | 2018-05-14 22:29 | Pulmonology Progress Note ---
Date of Encounter: 05/14/18 Time of Encounter: 09:00 Assessment and Plan (1) Acute respiratory failure with hypoxia Current Visit: No Status: Resolved Patient was extubated yesterday patient is doing well with acceptable oxygenation and ventilation to continue O2 supplementation to keep saturation about 92% (2) COPD (chronic obstructive pulmonary disease) Current Visit: No Status: Chronic Symptoms are stable to continue bronchodilators. Qualifiers: COPD type: unspecified COPD Qualified Code(s): J44.9 - Chronic obstructive pulmonary disease, unspecified (3) Acute on chronic renal failure Current Visit: No Status: Acute giving some daily albumin helping her urine output and kidney function Qualifiers: Acute renal failure type: unspecified Chronic kidney disease stage: stage 4 (severe) Qualified Code(s): N17.9 - Acute kidney failure, unspecified; N18.4 - Chronic kidney disease, stage 4 (severe) (4) Pelvic fluid collection Current Visit: No Status: Acute Patient has complicated pelvic abscess after appendicectomy patient is on broad- spectrum antibiotics consult ID appreciate the recs. (5) Infected hematoma following procedure Current Visit: No Status: Acute Patient had this complicated abscess after appendectomy (6) DVT prophylaxis Current Visit: Yes Status: Acute Continue thromboprophylaxis. We will transfer the patient to medical telemetry. Subjective Principal diagnosis: Encephalopathy with acute respiratory failure Interval history: Patient says she is feeling a lot better doesnt have any chest pain, chest tightness denies any palpitations or syncope not much cough or sputum production denies any other constitutional symptoms. Objective PUL Vital signs: Last Vital Signs Temp 98.0 F 05/14/18 20:40 Pulse 88 05/14/18 20:40 Resp 14 05/14/18 20:40 BP 131/70 05/14/18 20:40 Pulse Ox 100 05/14/18 20:40 Auscultation: bilateral: diminished breath sounds (basilar diminshed breadth sounds ), rales (scattered rales ) Extremities: edema other (blind ) Results - Laboratory Findings CBC and BMP: 05/14/18 04:00 05/14/18 04:00 ABG ABG pH 7.38 pH Units (7.32-7.45) 05/13/18 05:11 ABG pCO2 40 mmHg (35-45) 05/13/18 05:11 ABG pO2 122 mmHg (85-104) H 05/13/18 05:11 ABG O2 Saturation 99 % (95-98) H 05/13/18 05:11 PT/INR, D-dimer PT 13.3 Seconds (9.4-12.1) H 05/13/18 04:18 Abnormal lab findings: Abnormal lab results RBC 3.00 M/mcL (3.82-4.97) L 05/14/18 04:00 Hgb 9.0 g/dL (11.5-15.4) L D 05/14/18 04:00 Hct 29.1 % (35.3-44.9) L 05/14/18 04:00 MCHC 30.9 g/dL (31.6-35.5) L 05/14/18 04:00 RDW 20.0 % (11.5-14.5) H 05/14/18 04:00 Plt Count 95 K/mcL (140-400) L 05/14/18 04:00 Hypochromasia Present (Not Present) A 05/12/18 15:29 PT 13.3 Seconds (9.4-12.1) H 05/13/18 04:18 ABG pO2 122 mmHg (85-104) H 05/13/18 05:11 ABG O2 Saturation 99 % (95-98) H 05/13/18 05:11 Potassium 3.3 mEq/L (3.5-5.1) L 05/14/18 04:00 Chloride 109 mEq/L (98-107) H 05/14/18 04:00 Creatinine 1.33 mg/dL (0.60-1.20) H 05/14/18 04:00 Est GFR ( Amer) 47 (> 60) L 05/14/18 04:00 Est GFR (Non-Af Amer) 39 (> 60) L 05/14/18 04:00 Calcium 7.8 mg/dL (8.6-10.3) L 05/14/18 04:00 Venous Ioniz Calcium 1.06 mmol/L (1.15-1.35) L 05/13/18 12:08 Phosphorus 2.1 mg/dL (2.7-4.5) L 05/13/18 04:18 ALT 5 Units/L (7-52) L 05/13/18 04:18 Serum Total Protein 5.0 g/dL (6.4-8.9) L 05/13/18 04:18 Albumin 2.4 g/dL (3.5-5.7) L 05/13/18 04:18 Albumin/Globulin Ratio 0.9 (1.1-2.2) L 05/13/18 04:18 - Microbiology Findings Microbiology Findings: Microbiology, Last 48 Hours 05/13/18 13:05 Blood Culture - Preliminary Peripheral Venipuncture Culture is incubating and being continuously monitored for growth. Final report to follow. 05/13/18 13:05 Blood Culture - Preliminary Peripheral Venipuncture Culture is incubating and being continuously monitored for growth. Final report to follow. 05/13/18 13:05 Blood Culture - Preliminary Central Venous Catheter Culture is incubating and being continuously monitored for growth. Final report to follow. - Clinical Findings Intake & Output: Intake & Output 05/14/18 05/14/18 05/14/18 07:59 15:59 23:59 Intake Total 350 / 350 250 / 250 160 / 160 Output Total 520 / 520 650 / 650 875 / 875 Balance -170 / -170 -400 / -400 -715 / -715 Weight 110.1 kg - VTE Documentation of Mechanical Device: Intermittent pneumatic compression device Consult Discharge Plan - Plan Additional Instructions: KARAN drain X 2- cleanse around drains with soap and water and pat dry daily, apply split 4X4 gauze and tape to secure daily. Empty drains 2 times per day and records outputs (mls) and bring to follow-up appointment on 05/20/18. Referrals: Lokesh Cooper MD [Primary Care Provider] - Ericka Louise CNP [Advanced Practice Nurse] - 05/20/18 10:30 am (hospital follow-up)
[2018-05-15] MEDS: Piperacillin/Tazobactam 3.375 GM in 0.9 % Sodium Chloride Mini Bag 100 ML IVPB SCH ×3 (01:31→16:15)
[2018-05-15] MEDS: Artificial Tears SOLN 15 ML BOTTLE BOTH EYES SCH ×6 (05:53→16:18)
[2018-05-15] MEDS ORDERED: Aminoglycoside Consult 1 EACH MC ONE (07:38)
[2018-05-15] MEDS: BREO ELLIPTA IH SCH ×2 (07:52→13:18)
[2018-05-15] MEDS: metOLazone 2.5 MG TABLET PO SCH (08:40)
[2018-05-15] MEDS: Acetaminophen 325 MG TABLET PO PRN ×2 (08:40→21:24)
[2018-05-15] MEDS: *HR* Amiodarone 200 MG TABLET PO SCH (08:40)
[2018-05-15] MEDS ORDERED: Furosemide 40 MG/4 ML VIAL IVP SCH (09:00)
[2018-05-15] MEDS: Furosemide 40 MG/4 ML VIAL IVP SCH (12:32)
[2018-05-15] MEDS: SODIUM CHLORIDE 0.9% IVPB SCH (13:46)
[2018-05-15] MEDS: DAPTOMYCIN IVPB SCH (13:46)
--- NOTE | 2018-05-15 15:21 | Internal Med Progress Note ---
Hospitalist Progress Note - Encounter Date of Encounter: 05/15/18 Time of Encounter: 13:00 - Subjective Interval History: Ms. Barber is a 72 year old female PMHX of diastolic CHF, COPD not oxygen dependent, CAD, retinitis pigmentosa, history of subdural hematoma in May 2017 after a fall, Pablo Bonnet Syndrome, nearly blind, GERD, hyperlipidemia, hypertension, osteoporosis, chronic kidney disease stage IV, recent intra- abdominal abscess / hematoma infection after appendectomy , who is currently on IV antibiotics presented to outside emergency department unresponsive. Pt was intubated in the ER and admitted into our ICU. She was extubated on 05/13/18 and transferred to [facility] for further care. She is alert, awake and O x 3. Denied any CP / SOB. Currently on 2 lit O2 - Exam Vitals: Temp Pulse Resp BP Pulse Ox 98.0 F 92 20 124/77 98 05/15/18 14:33 05/15/18 14:33 05/15/18 14:33 05/15/18 14:33 05/15/18 14:33 Exam: Gen: Alert, awake, Oriented to time,place and person Chest: Diminished breath sounds B/L, No wheezing, No crackles, No rales Heart: S1S2+ Abd: Soft, Tenderness lower abdomen, 2 KARAN drainage tubes with minimal secretions Ext: No edema, pulses are palpable, No calf tenderness Neuro : Benign findings Skin: No rash. - Assessment and Plan (1) Acute and chronic respiratory failure with hypoxia Current Visit: Yes Status: Acute Assessment and Plan: s/p VDRF Cont Duoneb and O2 (2) Bacteremia Current Visit: Yes Status: Acute Assessment and Plan: Blood cx from our hospital no growth so far will obtain blood cx results from her initial ER visit cont Zosyn and Vanc for now ID on board (3) Chronic kidney disease, stage 3 Current Visit: Yes Status: Chronic Assessment and Plan: stable Cr (4) Infected hematoma following procedure Current Visit: No Status: Acute Assessment and Plan: still has drainage tubes cont broad spec abx ID on board (5) Sepsis Current Visit: No Status: Acute Assessment and Plan: improving (6) COPD (chronic obstructive pulmonary disease) Current Visit: No Status: Chronic Assessment and Plan: improving cont duoneb (7) HTN (hypertension) Current Visit: No Status: Chronic Assessment and Plan: stable with current regimen - Time Spent with Patient Total time spent is greater than 50% in coordination of care (as documented) at patient's floor/unit and/or counseling patient: Internal Medicine: Result - Labs CBC & Chem 7: 05/14/18 04:00 05/14/18 04:00 - ABG Interpretation ABG results: ABG ABG pH 7.38 pH Units (7.32-7.45) 05/13/18 05:11 ABG pCO2 40 mmHg (35-45) 05/13/18 05:11 ABG pO2 122 mmHg (85-104) H 05/13/18 05:11 ABG O2 Saturation 99 % (95-98) H 05/13/18 05:11 PT/INR, D-dimer PT 13.3 Seconds (9.4-12.1) H 05/13/18 04:18 - VTE Documentation of Mechanical Device: Intermittent pneumatic compression device Consult Discharge Plan - Plan Additional Instructions: KARAN drain X 2- cleanse around drains with soap and water and pat dry daily, apply split 4X4 gauze and tape to secure daily. Empty drains 2 times per day and records outputs (mls) and bring to follow-up appointment on 05/20/18. Referrals: Lokesh Cooper MD [Primary Care Provider] - Ericka Louise CNP [Advanced Practice Nurse] - 05/20/18 10:30 am (hospital follow-up) (5) Sepsis Qualifiers: Sepsis type: sepsis due to unspecified organism Qualified Code(s): A41.9 - Sepsis, unspecified organism (6) COPD (chronic obstructive pulmonary disease) Qualifiers: COPD type: unspecified COPD Qualified Code(s): J44.9 - Chronic obstructive pulmonary disease, unspecified (7) HTN (hypertension) Qualifiers: Hypertension type: essential hypertension Qualified Code(s): I10 - Essential (primary) hypertension
[2018-05-16] MEDS: Piperacillin/Tazobactam 3.375 GM in 0.9 % Sodium Chloride Mini Bag 100 ML IVPB SCH ×3 (00:42→16:15)
[2018-05-16] MEDS: Artificial Tears SOLN 15 ML BOTTLE BOTH EYES SCH ×5 (08:25→15:21)
[2018-05-16] MEDS: *HR* Amiodarone 200 MG TABLET PO SCH (08:35)
[2018-05-16] MEDS: metOLazone 2.5 MG TABLET PO SCH (08:35)
[2018-05-16] MEDS: Furosemide 40 MG/4 ML VIAL IVP SCH (08:35)
[2018-05-16] MEDS: BREO ELLIPTA IH SCH (08:43)
[2018-05-16] MEDS: SODIUM CHLORIDE 0.9% IVPB SCH (11:34)
[2018-05-16] MEDS: DAPTOMYCIN IVPB SCH (11:34)
[2018-05-16] MEDS: Acetaminophen 325 MG TABLET PO PRN ×2 (12:27→20:57)
--- NOTE | 2018-05-16 13:51 | Internal Med Progress Note ---
Hospitalist Progress Note - Encounter Date of Encounter: 05/16/18 Time of Encounter: 11:30 - Subjective Interval History: Ms. Barber is a 72 year old female PMHX of diastolic CHF, COPD not oxygen dependent, CAD, retinitis pigmentosa, history of subdural hematoma in May 2017 after a fall, Pablo Bonnet Syndrome, nearly blind, GERD, hyperlipidemia, hypertension, osteoporosis, chronic kidney disease stage IV, recent intra- abdominal abscess / hematoma infection after appendectomy , who is currently on IV antibiotics presented to outside emergency department unresponsive. Pt was intubated in the ER and admitted into our ICU. She was extubated on 05/13/18 and transferred to [facility] for further care. She is alert, awake and O x 3. Denied any CP / SOB. Currently breathing comfortably on RA - Exam Vitals: Temp Pulse Resp BP Pulse Ox 97.8 F 92 18 108/69 95 05/16/18 10:47 05/16/18 10:47 05/16/18 10:47 05/16/18 10:47 05/16/18 10:47 Exam: Gen: Alert, awake, Oriented to time,place and person Chest: Diminished breath sounds B/L, No wheezing, No crackles, No rales Heart: S1S2+ Abd: Soft, Tenderness lower abdomen, 2 KARAN drainage tubes with minimal secretions Ext: 2+ edema, pulses are palpable, No calf tenderness Neuro : Benign findings Skin: No rash. - Assessment and Plan (1) Acute and chronic respiratory failure with hypoxia Current Visit: Yes Status: Acute Assessment and Plan: s/p VDRF Pt is off the O2 now She was on 2 lit O2 a assisted Cont Duoneb and O2 (2) Bacteremia Current Visit: Yes Status: Acute Assessment and Plan: Blood cx from our hospital no growth so far will obtain blood cx results from her initial ER visit cont Zosyn and Vanc for now ID on board (3) Diastolic CHF, acute on chronic Current Visit: No Status: Acute Assessment and Plan: Cont Lasix 40mg IV Daily resumed other home meds (4) Chronic kidney disease, stage 3 Current Visit: Yes Status: Chronic Assessment and Plan: stable Cr (5) Infected hematoma following procedure Current Visit: No Status: Acute Assessment and Plan: still has drainage tubes cont broad spec abx ID on board (6) Sepsis Current Visit: No Status: Acute Assessment and Plan: improving (7) COPD (chronic obstructive pulmonary disease) Current Visit: No Status: Chronic Assessment and Plan: improving cont duoneb (8) HTN (hypertension) Current Visit: No Status: Chronic Assessment and Plan: stable with current regimen - Time Spent with Patient Total time spent is greater than 50% in coordination of care (as documented) at patient's floor/unit and/or counseling patient: Internal Medicine: Result - Labs CBC & Chem 7: 05/14/18 04:00 05/14/18 04:00 - ABG Interpretation ABG results: ABG ABG pH 7.38 pH Units (7.32-7.45) 05/13/18 05:11 ABG pCO2 40 mmHg (35-45) 05/13/18 05:11 ABG pO2 122 mmHg (85-104) H 05/13/18 05:11 ABG O2 Saturation 99 % (95-98) H 05/13/18 05:11 PT/INR, D-dimer PT 13.3 Seconds (9.4-12.1) H 05/13/18 04:18 - VTE Documentation of Mechanical Device: Intermittent pneumatic compression device Consult Discharge Plan - Plan Additional Instructions: KARAN drain X 2- cleanse around drains with soap and water and pat dry daily, apply split 4X4 gauze and tape to secure daily. Empty drains 2 times per day and records outputs (mls) and bring to follow-up appointment on 05/20/18. Referrals: Lokesh Cooper MD [Primary Care Provider] - Ericka Louise CNP [Advanced Practice Nurse] - 05/20/18 10:30 am (hospital follow-up) (6) Sepsis Qualifiers: Sepsis type: sepsis due to unspecified organism Qualified Code(s): A41.9 - Sepsis, unspecified organism (7) COPD (chronic obstructive pulmonary disease) Qualifiers: COPD type: unspecified COPD Qualified Code(s): J44.9 - Chronic obstructive pulmonary disease, unspecified (8) HTN (hypertension) Qualifiers: Hypertension type: essential hypertension Qualified Code(s): I10 - Essential (primary) hypertension
[2018-05-17] MEDS: Artificial Tears SOLN 15 ML BOTTLE BOTH EYES SCH ×7 (00:57→22:20)
[2018-05-17] MEDS: Piperacillin/Tazobactam 3.375 GM in 0.9 % Sodium Chloride Mini Bag 100 ML IVPB SCH ×2 (01:05→10:13)
[2018-05-17] MEDS: Acetaminophen 325 MG TABLET PO PRN ×2 (05:27→22:20)
[2018-05-17 05:35] LABS: Basophils % 0.3 %; Immature Granulocytes % 0.5 % (0-4)
[2018-05-17 05:37] LABS: Eosinophils # 0.1 K/mcL (0.0-0.6); Eosinophils % 2.1 %; Hematocrit 28.9 % (35.3-44.9); Immature Platelets 2.7 % (1.1-6.1); Lymphocytes # 0.9 K/mcL (0.6-4.6); Lymphocytes % 23.6 %; Mean Corpuscular HGB Conc 31.1 g/dL (31.6-35.5); Mean Corpuscular Hemoglobin 29.9 pg (28.0-33.3); Mean Platelet Volume 9.4 fL (9.4-12.4); Monocytes # 0.3 K/mcL (0.0-1.3); Monocytes % 6.6 %; Neutrophils # 2.5 K/mcL (1.6-8.9); Platelet Count 93 K/mcL (140-400); Red Blood Count 3.01 M/mcL (3.82-4.97); Red Cell Distribution Width 18.6 % (11.5-14.5); Segmented Neutrophils % 66.9 %
[2018-05-17 05:54] LABS: Albumin 2.6 g/dL (3.5-5.7); Albumin/Globulin Ratio 1.1 (1.1-2.2); Bilirubin,Total 0.5 mg/dL (0.3-1.0); Calcium 8.1 mg/dL (8.6-10.3); Globulin 2.4 g/dL (2.4-3.5); Magnesium 1.5 mg/dL (1.6-2.6); Potassium 2.9 mEq/L (3.5-5.1)
--- NOTE | 2018-05-17 09:29 | Internal Med Progress Note ---
<Gabi Wheeler - Last Filed: 05/17/18 11:45> Hospitalist Progress Note - Encounter Date of Encounter: 05/17/18 - Exam Vitals: Temp Pulse Resp BP Pulse Ox 97.6 F 86 15 112/68 100 05/17/18 11:14 05/17/18 11:14 05/17/18 11:14 05/17/18 11:14 05/17/18 11:14 - Time Spent with Patient Total time spent is greater than 50% in coordination of care (as documented) at patient's floor/unit and/or counseling patient: Internal Medicine: Result - Labs CBC & Chem 7: 05/17/18 05:20 05/17/18 05:20 Labs: Short CBC 05/17/18 Range/Units 05:20 WBC 3.8 L (4.3-11.1) K/mcL Hgb 9.0 L (11.5-15.4) g/dL Hct 28.9 L (35.3-44.9) % Plt Count 93 L (140-400) K/mcL Neutrophils # 2.5 (1.6-8.9) K/mcL BMP 05/17/18 05:20 Sodium 140 Potassium 2.9 L Chloride 103 Carbon Dioxide 31 H BUN 10 Creatinine 1.34 H Glucose 75 Calcium 8.1 L Liver Function 05/17/18 Range/Units 05:20 Total Bilirubin 0.5 (0.3-1.0) mg/dL AST 13 (13-39) Units/L ALT 5 L (7-52) Units/L Alkaline Phosphatase 54 (34-104) Units/L Albumin 2.6 L (3.5-5.7) g/dL - ABG Interpretation ABG results: ABG ABG pH 7.38 pH Units (7.32-7.45) 05/13/18 05:11 ABG pCO2 40 mmHg (35-45) 05/13/18 05:11 ABG pO2 122 mmHg (85-104) H 05/13/18 05:11 ABG O2 Saturation 99 % (95-98) H 05/13/18 05:11 PT/INR, D-dimer PT 13.3 Seconds (9.4-12.1) H 05/13/18 04:18 Consult Discharge Plan - Plan Additional Instructions: KARAN drain X 2- cleanse around drains with soap and water and pat dry daily, apply split 4X4 gauze and tape to secure daily. Empty drains 2 times per day and records outputs (mls) and bring to follow-up appointment on 05/20/18. Referrals: Lokesh Cooper MD [Primary Care Provider] - Ericka Louise CNP [Advanced Practice Nurse] - 05/20/18 10:30 am (hospital follow-up) <Abraham Brandt - Last Filed: 05/17/18 13:29> Hospitalist Progress Note - Encounter Date of Encounter: 05/17/18 Time of Encounter: 09:05 - Subjective Interval History: Janiya Barber is a 72 yo F with a PMHx of arthritis, asthma, atrial fibrillation, CHF, COPD, GERD, hyperlipidemia, hypertension, osteoporosis, renal disease that was admitted initially for respiratory failure at [facility] rehab facility. Pt was at the rehab facility following an appendectomy that was complicated with a hematoma that became infected. Pt was extubated on 05/13/18 and states that she has had some trouble speaking and has had sore throat since that time. The pt states last night she began to have some sinus pressure and drainage that has gone down the back of her throat and she was given some Mucinex last night but has had minimal improvement. She notes that she has also had some coughing this morning as well, but believes that it is secondary to the drainage. She denies any fever or chills this morning. The pt reports still having some upper abd pain that she describes as "a tight band and fluid" across the epigastric region. She also notes some increased swelling to her left hand and states that she is feeling nauseated and has a decreased appetite. Pt notes that she was able to have a small BM last night as well. - Exam Vitals: Temp Pulse Resp BP Pulse Ox 97.6 F 91 14 116/67 99 05/17/18 08:04 05/17/18 08:04 05/17/18 08:04 05/17/18 08:04 05/17/18 08:04 Exam: Gen: A&O x 3, NAD, ENT: + left maxillary sinus tenderness, no frontal sinus tenderness CVS: 2+ DP pulses bilat, RRR, midline sternotomy scar, 2+ pitting edema to BLE and hands, right subclavian triple lumen in place, no signs of infection. Pulm: Decreased breath sounds bilaterally, no rales or rhonchi Abd: soft, mild tenderness to epigastric region without rebound or guarding, KARAN drains in place with small amount of brownish drainage Skin: warm dry and intact. - Assessment and Plan (1) Congestive heart failure Current Visit: No Status: Chronic Comments: increased edema of extremities. Increase 40 mg of Lasix to BID from QD. (2) Sepsis Current Visit: No Status: Acute (3) Infected hematoma following procedure Current Visit: No Status: Acute Comments: Continue Zosyn and Daptomycin (4) COPD (chronic obstructive pulmonary disease) Current Visit: No Status: Chronic Comments: Continue with Duoneb treatments BID. (5) Chronic kidney disease, stage 3 Current Visit: Yes Status: Chronic Comments: Creatinine is stable (6) Bacteremia Current Visit: Yes Status: Acute Comments: Cultures done here show no growth. (7) Acute and chronic respiratory failure with hypoxia Current Visit: Yes Status: Acute Comments: Improving. - Time Spent with Patient Total time spent is greater than 50% in coordination of care (as documented) at patient's floor/unit and/or counseling patient: 25 - 35 minutes Plan of Care Discussed with: patient Internal Medicine: Result - Labs CBC & Chem 7: 05/17/18 05:20 05/17/18 05:20 Labs: Short CBC 05/17/18 Range/Units 05:20 WBC 3.8 L (4.3-11.1) K/mcL Hgb 9.0 L (11.5-15.4) g/dL Hct 28.9 L (35.3-44.9) % Plt Count 93 L (140-400) K/mcL Neutrophils # 2.5 (1.6-8.9) K/mcL BMP 05/17/18 05:20 Sodium 140 Potassium 2.9 L Chloride 103 Carbon Dioxide 31 H BUN 10 Creatinine 1.34 H Glucose 75 Calcium 8.1 L Liver Function 05/17/18 Range/Units 05:20 Total Bilirubin 0.5 (0.3-1.0) mg/dL AST 13 (13-39) Units/L ALT 5 L (7-52) Units/L Alkaline Phosphatase 54 (34-104) Units/L Albumin 2.6 L (3.5-5.7) g/dL - ABG Interpretation ABG results: ABG ABG pH 7.38 pH Units (7.32-7.45) 05/13/18 05:11 ABG pCO2 40 mmHg (35-45) 05/13/18 05:11 ABG pO2 122 mmHg (85-104) H 05/13/18 05:11 ABG O2 Saturation 99 % (95-98) H 05/13/18 05:11 PT/INR, D-dimer PT 13.3 Seconds (9.4-12.1) H 05/13/18 04:18 - VTE Documentation of Mechanical Device: Intermittent pneumatic compression device <Abraham Brandt L - Last Filed: 05/17/18 13:29> (1) Congestive heart failure Qualifiers: Heart failure type: diastolic Heart failure chronicity: chronic Qualified Code(s): I50.32 - Chronic diastolic (congestive) heart failure (2) Sepsis Qualifiers: Sepsis type: sepsis due to unspecified organism Qualified Code(s): A41.9 - Sepsis, unspecified organism (4) COPD (chronic obstructive pulmonary disease) Qualifiers: COPD type: unspecified COPD Qualified Code(s): J44.9 - Chronic obstructive pulmonary disease, unspecified
[2018-05-17] MEDS: BREO ELLIPTA IH SCH (10:10)
[2018-05-17] MEDS: metOLazone 2.5 MG TABLET PO SCH (10:12)
[2018-05-17] MEDS: Furosemide 40 MG/4 ML VIAL IVP SCH ×2 (10:12→16:47)
[2018-05-17] MEDS: *HR* Amiodarone 200 MG TABLET PO SCH (10:12)
[2018-05-17] MEDS ORDERED: Potassium Chloride 40 MEQ, Lidocaine 1% 2 ML in D5% in Water 500 ML IVPB ONE (10:41)
[2018-05-17] MEDS: SODIUM CHLORIDE 0.9% IVPB SCH (13:10)
[2018-05-17] MEDS: Loratadine 10 MG TABLET PO SCH (13:10)
[2018-05-17] MEDS: DAPTOMYCIN IVPB SCH (13:10)
--- NOTE | 2018-05-17 14:26 | Infectious Disease Progress No ---
Date of Encounter: 05/17/18 Time of Encounter: 14:24 - Assessment and Plan (1) Bacteremia Current Visit: Yes Status: Acute Causative organism: VRE. Source: Unclear. The patient does have a pelvic fluid collection that appears to be decreased in size from previous exams. Previous cultures did grow out enterococcus faecium, which is typically Vanc-resistant, although her strain tested Vanc-susceptible. She also has a tunneled PICC line which is also a potential source. [facility]2 out of 2 sets for VRE. The specimen is labeled as being drawn from her PICI am unsure if there were any peripheral cultures drawn. Repeat blood cultures obtained here 3 sets (2 peripheral and one from her tunneled PICC line) are NGTD. No endocarditis stigmata noted on exam. The patient does have a prosthetic heart valve. Continue Daptomycin 6mg/kg IV daily. Check baseline CK level.--> 20. Given that the blood culture that is positive if from the tunneled PICC, we will need to remove it although I'm s the source vs. seeding from the bacteremia. Duration of treatment depends on the clinical picture. Monitor renal function for drug toxicity and dosage adjust antibiotics. (2) Infected hematoma following procedure Current Visit: No Status: Acute Causative organism: S. epi, E. coli x 2, and Enterococcus faecium. Additional culture obtained with new drain placement grew E. coli. Aspergillus also came back on the culture after the patient was discharged, but this is likely a contaminant as we recently had a known lab contamination. CT scan completed 03/29/2018 showed moderate volume of fluid in the pelvis and along the mesentery with subacute blood. Repeat CT of the abdomen and pelvis completed 04/01/18 showed a complex fluid collection within the pelvis, here unchanged in size and the density continued to decrease making the finding concerning for an organizing hematoma, although there was suggestion of possible capsule formation, and the possibility of an abscess should be considered. She also had some increasing right-sided hydronephrosis, but presumably from compression of the distal right ureteral compression. Status post CT-guided placement of abdominal abscess drainage catheter on by interventional radiology. No cultures were obtained at the time of catheter placement, but pathology was negative for malignancy. Culture obtained on 04/10/18 positive for and or coccus fascia, staph epi, and 2 strains of Escherichia coli. Repeat CT scan on 04/12/18 showed a large complex appearing fluid collection likely representing an abscess measuring approximately 17 x 11 x 8 cm in size and appears somewhat decreased in size when compared to the previous examination , however a large amount of fluid remained. Additional repeat CAT scan completed 04/19/18 showed complex large abscess in the lower abdomen and pelvis, unchanged in appearance and only slightly decreased in the size of the large abscess compared to prior examination, possibly secondary to multi loculation with a large amount of fluid remaining in the abscess. New drain placed in the abscess 04/19/18. Repeat CT scan 04/26/18 with PO contrast shows minimal improvement in the intra- abdominal abscess, likely secondary to multiple loculations. No surgical recommendations from the surgery team at that time. Get CT of the abdomen and pelvis with PO contrast in the AM. Continue Daptomycin 6mg/kg IV daily as above. Discontinue Zosyn. Start Rocephin 2 grams IV daily. Duration of treatment depends on the clinical picture. She has completed 4 weeks of IV antibiotics since the last drain was placed, which is likely adequate duration for the anaerobes. Monitor renal function and for drug toxicity and dose adjust antibiotics. (3) Altered mental status Current Visit: Yes Status: Resolved Etiology unclear. Based on the documentation, the patient had blood in her mouth and was incontinent of stool. Not sure if she had a seizure or if this was some other issue. CT of the head was negative. Altered mental status seems to have resolved. Continue to monitor closely. Qualifiers: Qualified Code(s): R41.82 - Altered mental status, unspecified (4) Anemia Current Visit: No Status: Acute Hemoglobin stable around 9. Further workup and management per the primary team. Qualifiers: Qualified Code(s): D64.9 - Anemia, unspecified (5) Acute respiratory failure with hypoxia Current Visit: No Status: Resolved Etiology unclear. Intubated in the ER, but extubated 05/13/18. Resolved. (6) Hypokalemia Current Visit: Yes Status: Acute (7) Atrial fibrillation Current Visit: Yes Status: Chronic Qualifiers: Qualified Code(s): I48.1 - Persistent atrial fibrillation (8) HLD (hyperlipidemia) Current Visit: Yes Status: Acute Qualifiers: Qualified Code(s): E78.5 - Hyperlipidemia, unspecified (9) H/O prosthetic heart valve Current Visit: No Status: Chronic (10) Chronic kidney disease, stage 3 Current Visit: Yes Status: Chronic (11) GERD (gastroesophageal reflux disease) Current Visit: Yes Status: Acute Qualifiers: Qualified Code(s): K21.9 - Gastro-esophageal reflux disease without esophagitis (12) COPD (chronic obstructive pulmonary disease) Current Visit: No Status: Chronic Qualifiers: Qualified Code(s): J44.9 - Chronic obstructive pulmonary disease, unspecified - Subjective Interval history: Patient seen and examined. No acute events noted overnight. Patient resting quietly in bed. Awakens easily to verbal stimuli. States overall she feels well. Reports intermittent chills, but denies fevers or rigors. Denies chest pain or cough, but does endorse some shortness of breath. She states she got nauseated with breakfast this morning, but she did eat some and the nausea has since resolved. She continues to report right groin pain and lower abdomen pain. Denies oral thrush. Infect Dis PN-Objective Data - Labs CBC & Chem 7: 05/17/18 05:20 05/18/18 07:21 Labs: Laboratory Results - last 24 hr 05/17/18 05/17/18 05:20 05:20 WBC 3.8 L RBC 3.01 L Hgb 9.0 L Hct 28.9 L MCV 96.0 MCH 29.9 MCHC 31.1 L RDW 18.6 H Plt Count 93 L MPV 9.4 Immature Gran % 0.5 Seg Neutrophils % 66.9 Lymphocytes % 23.6 Monocytes % 6.6 Eosinophils % 2.1 Basophils % 0.3 Neutrophils # 2.5 Lymphocytes # 0.9 Monocytes # 0.3 Eosinophils # 0.1 Basophils # 0.0 Immature Plt Fraction 2.7 Sodium 140 Potassium 2.9 L Chloride 103 Carbon Dioxide 31 H BUN 10 Creatinine 1.34 H Est GFR ( Amer) 47 L Est GFR (Non-Af Amer) 39 L BUN/Creatinine Ratio 7 Glucose 75 Calculated Osmolality 288 Calcium 8.1 L Magnesium 1.5 L Total Bilirubin 0.5 AST 13 ALT 5 L Alkaline Phosphatase 54 Serum Total Protein 5.0 L Albumin 2.6 L Globulin 2.4 Albumin/Globulin Ratio 1.1 Cultures: Cultures 05/13/18 13:05 Blood Culture - Preliminary Peripheral Venipuncture Culture is incubating and being continuously monitored for growth. Final report to follow. 05/13/18 13:05 Blood Culture - Preliminary Peripheral Venipuncture Culture is incubating and being continuously monitored for growth. Final report to follow. 05/13/18 13:05 Blood Culture - Preliminary Central Venous Catheter Culture is incubating and being continuously monitored for growth. Final report to follow. Exam - Constitutional Vitals: Temp Pulse Resp BP Pulse Ox 97.7 F 75 16 124/72 96 05/17/18 14:19 05/17/18 14:19 05/17/18 14:19 05/17/18 14:19 05/17/18 14:19 General appearance: cooperative, no acute distress, obese - Head Head exam: Present: atraumatic, normal inspection, normocephalic - Eye Eye exam: Present: normal appearance - ENT ENT exam: Present: mucous membranes moist - Neck Neck exam: Present: normal inspection - Respiratory Respiratory exam: Present: CTAB. Absent: rales, respiratory distress, rhonchi, wheezes - Cardiovascular Cardiovascular exam: Present: irregular rhythm. Absent: tachycardia - GI/Abdominal GI/Abdominal exam: Present: distended (obese), normal bowel sounds, soft, tenderness (LLQ) Additional comments: KARAN drain x 2 noted to the LLQ and left middle abdomen with small amount of cloudy, light brown drainage noted. Parks catheter noted to be draining clear yellow urine. - Extremities Exam Extremities exam: Present: normal inspection, pedal edema (1+ BLE). Absent: joint swelling, tenderness - Neurological Exam Neurological exam: Present: alert, oriented X3, no focal deficits - Psychiatric Psychiatric exam: Present: normal affect, normal mood - Skin Skin exam: Present: dry, intact, normal color, warm - Additional findings Additional findings: Tunneled PICC line noted to the right upper chest with transparent dressing C/D/ I. No erythema, warmth, drainage, or tenderness noted at the insertion site. - VTE Documentation of Mechanical Device: Intermittent pneumatic compression device Consult Discharge Plan - Plan Additional Instructions: KARAN drain X 2- cleanse around drains with soap and water and pat dry daily, apply split 4X4 gauze and tape to secure daily. Empty drains 2 times per day and records outputs (mls) and bring to follow-up appointment on 05/20/18. Referrals: Lokesh Cooper MD [Primary Care Provider] - Ericka Louise CNP [Advanced Practice Nurse] - 05/20/18 10:30 am (hospital follow-up) - Attending Attestation I examined this patient and my medical decision-making was reviewed with Monica Waller CNP. I agree with the documented findings, disposition and treatment plan as described except to the extent set forth below.
--- NOTE | 2018-05-17 15:02 | Internal Med Progress Note ---
<Gabi Wheeler - Last Filed: 05/17/18 14:58> Hospitalist Progress Note - Encounter Date of Encounter: 05/17/18 Time of Encounter: 10:00 - Subjective Interval History: Janiya Barber is a 72 yo F with a PMHx of arthritis, asthma, atrial fibrillation, CHF, COPD, GERD, hyperlipidemia, hypertension, osteoporosis, renal disease that was admitted initially for respiratory failure at [facility] rehab facility. Pt was at the rehab facility following an appendectomy that was complicated with a hematoma that became infected. Pt was extubated on 05/13/18 and states that she has had some trouble speaking and has had sore throat since that time. The pt states last night she began to have some sinus pressure and drainage that has gone down the back of her throat and she was given some Mucinex last night but has had minimal improvement. She notes that she has also had some coughing this morning as well, but believes that it is secondary to the drainage. She denies any fever or chills this morning. The pt reports still having some upper abd pain that she describes as "a tight band and fluid" across the epigastric region. She also notes some increased swelling to her left hand but denies pain and states that she is feeling nauseated and has a decreased appetite. Pt notes that she was able to have a small BM last night as well. - Exam Vitals: Temp Pulse Resp BP Pulse Ox 97.7 F 75 16 124/72 96 05/17/18 14:19 05/17/18 14:19 05/17/18 14:19 05/17/18 14:19 05/17/18 14:19 Exam: Exam: Gen: A&O x 3, NAD, ENT: + left maxillary sinus tenderness, no frontal sinus tenderness CVS: 2+ DP pulses bilat, RRR, midline sternotomy scar, 2+ pitting edema to BLE and left hand, right subclavian triple lumen in place, no signs of infection. Pulm: Decreased breath sounds bilaterally, no rales or rhonchi Abd: soft, mild tenderness to epigastric region without rebound or guarding, KARAN drains in place with small amount of brownish drainage Skin: warm dry and intact. Neuro: alert, answering questions appropriately Psych: cooperative with exam, affect appropriate - Assessment and Plan (1) Bacteremia Current Visit: Yes Status: Acute Assessment and Plan: 2/2 to enterococcus (e. faecium), unclear source, likely 2/2 to pelvic fluid but could be due to PICC line. Plan: - ID following - awaiting sensitivities - blood cultures negative here - consider RICHARD, depending upon strain - Antibiotics: continue Daptomycin day 3(started on 05/15) and Zosyn day 5, s/p 1 dose vancomycin 05/14 Comments: Cultures done here show no growth. (2) Acute and chronic respiratory failure with hypoxia Current Visit: Yes Status: Resolved Assessment and Plan: S/p intubation. Home O2 is NC 2L at night. She has been weaned to RA during the day. Plan: - continue DuoNebs prn - continue O2 support as needed Comments: Improving. (3) Hypomagnesemia Current Visit: Yes Status: Acute Assessment and Plan: Today Mg= 1.5, replaced with 2mg. Recheck in the AM (4) Chronic kidney disease, stage IV (severe) Current Visit: No Status: Chronic Assessment and Plan: stable currently with a creatinine of 1.33. Will recheck tomorrow. Continue avoiding nephrotoxic medications and will renally dose appropriate meds. (5) Hypokalemia Current Visit: No Status: Acute Assessment and Plan: Most likely 2/2 to Lasix. Replaced with 40mcg IV and 40mg orally. Will recheck K level at 6pm. (6) Congestive heart failure Current Visit: No Status: Chronic Assessment and Plan: Increasing Lasix from 40mg daily to 40mg BID due to pitting edema persistent. Comments: increased edema of extremities. Increase 40 mg of Lasix to BID from QD. (7) Infected hematoma following procedure Current Visit: No Status: Acute Assessment and Plan: See bactermia above. Drains still in place. (8) Thrombocytopenia Current Visit: Yes Status: Acute Assessment and Plan: Continue to monitor. DVT Prophylaxis: IPCDs - Time Spent with Patient Total time spent is greater than 50% in coordination of care (as documented) at patient's floor/unit and/or counseling patient: Plan of Care Discussed with: patient Internal Medicine: Result - Labs CBC & Chem 7: 05/17/18 05:20 05/17/18 05:20 Labs: Short CBC 05/17/18 Range/Units 05:20 WBC 3.8 L (4.3-11.1) K/mcL Hgb 9.0 L (11.5-15.4) g/dL Hct 28.9 L (35.3-44.9) % Plt Count 93 L (140-400) K/mcL Neutrophils # 2.5 (1.6-8.9) K/mcL BMP 05/17/18 05:20 Sodium 140 Potassium 2.9 L Chloride 103 Carbon Dioxide 31 H BUN 10 Creatinine 1.34 H Glucose 75 Calcium 8.1 L Liver Function 05/17/18 Range/Units 05:20 Total Bilirubin 0.5 (0.3-1.0) mg/dL AST 13 (13-39) Units/L ALT 5 L (7-52) Units/L Alkaline Phosphatase 54 (34-104) Units/L Albumin 2.6 L (3.5-5.7) g/dL - ABG Interpretation ABG results: ABG ABG pH 7.38 pH Units (7.32-7.45) 05/13/18 05:11 ABG pCO2 40 mmHg (35-45) 05/13/18 05:11 ABG pO2 122 mmHg (85-104) H 05/13/18 05:11 ABG O2 Saturation 99 % (95-98) H 05/13/18 05:11 PT/INR, D-dimer PT 13.3 Seconds (9.4-12.1) H 05/13/18 04:18 - VTE Documentation of Mechanical Device: Intermittent pneumatic compression device Consult Discharge Plan - Plan Additional Instructions: KARAN drain X 2- cleanse around drains with soap and water and pat dry daily, apply split 4X4 gauze and tape to secure daily. Empty drains 2 times per day and records outputs (mls) and bring to follow-up appointment on 05/20/18. Referrals: Lokesh Cooper MD [Primary Care Provider] - Ericka Louise CNP [Advanced Practice Nurse] - 05/20/18 10:30 am (hospital follow-up) <Edgard Newman - Last Filed: 05/17/18 15:53> Hospitalist Progress Note - Encounter Date of Encounter: 05/17/18 - Exam Vitals: Temp Pulse Resp BP Pulse Ox 97.7 F 75 16 124/72 96 05/17/18 14:19 05/17/18 14:19 05/17/18 14:19 05/17/18 14:19 05/17/18 14:19 - Assessment and Plan (1) Acute and chronic respiratory failure with hypoxia Current Visit: Yes Status: Resolved Comments: Improving. (2) Bacteremia Current Visit: Yes Status: Acute Comments: Cultures done here show no growth. (3) Diastolic CHF, acute on chronic Current Visit: No Status: Acute (4) Chronic kidney disease, stage 3 Current Visit: Yes Status: Chronic Comments: Creatinine is stable (5) Infected hematoma following procedure Current Visit: No Status: Acute (6) Sepsis Current Visit: No Status: Acute (7) COPD (chronic obstructive pulmonary disease) Current Visit: No Status: Chronic (8) HTN (hypertension) Current Visit: No Status: Chronic - Time Spent with Patient Total time spent is greater than 50% in coordination of care (as documented) at patient's floor/unit and/or counseling patient: Internal Medicine: Result - Labs CBC & Chem 7: 05/17/18 05:20 05/17/18 05:20 Labs: Short CBC 05/17/18 Range/Units 05:20 WBC 3.8 L (4.3-11.1) K/mcL Hgb 9.0 L (11.5-15.4) g/dL Hct 28.9 L (35.3-44.9) % Plt Count 93 L (140-400) K/mcL Neutrophils # 2.5 (1.6-8.9) K/mcL BMP 05/17/18 05:20 Sodium 140 Potassium 2.9 L Chloride 103 Carbon Dioxide 31 H BUN 10 Creatinine 1.34 H Glucose 75 Calcium 8.1 L Liver Function 05/17/18 Range/Units 05:20 Total Bilirubin 0.5 (0.3-1.0) mg/dL AST 13 (13-39) Units/L ALT 5 L (7-52) Units/L Alkaline Phosphatase 54 (34-104) Units/L Albumin 2.6 L (3.5-5.7) g/dL - ABG Interpretation ABG results: ABG ABG pH 7.38 pH Units (7.32-7.45) 05/13/18 05:11 ABG pCO2 40 mmHg (35-45) 05/13/18 05:11 ABG pO2 122 mmHg (85-104) H 05/13/18 05:11 ABG O2 Saturation 99 % (95-98) H 05/13/18 05:11 PT/INR, D-dimer PT 13.3 Seconds (9.4-12.1) H 05/13/18 04:18 - Attending Attestation I examined this patient and my medical decision-making was reviewed with the Resident Physician Dr. Wheeler. I agree with the documented findings, disposition and treatment plan as described except to the extent set forth below. Ms. Barber is a 72 year old female PMHX of diastolic CHF, COPD not oxygen dependent, CAD, retinitis pigmentosa, history of subdural hematoma in May 2017 after a fall, Pablo Bonnet Syndrome, nearly blind, GERD, hyperlipidemia, hypertension, osteoporosis, chronic kidney disease stage IV, recent intra- abdominal abscess / hematoma infection after appendectomy , who is currently on IV antibiotics presented to outside emergency department unresponsive. Pt was intubated in the ER and admitted into our ICU. She was extubated on 05/13/18 and transferred to [facility] for further care. She is alert, awake and O x 3. Denied any CP / SOB. Currently breathing comfortably on 2 lit O2. Gen : A, A, O x 3 Chest: Diminished BS b/l,no wheezing, no crackles Heart: S1S2+ Ext: 2+ pitting edema 1. Sepsis with bacteremia Pt did meet sepsis criteria with initial presentation now improving 2. Intra abdominal hematoma infection cont empirical abx Zosyn and Daptomycin 3. Acute on chronic hypoxic resp failure cont Duoneb and O2 cont IV diuresis 4. Acute on chronic diastolic CHF exacerbation 5. volume overload inc Lasix to 40 IV BID 6. She does have CKD-3 <Gabi Wheeler - Last Filed: 05/17/18 14:58> (6) Congestive heart failure Qualifiers: Heart failure type: diastolic Heart failure chronicity: chronic Qualified Code(s): I50.32 - Chronic diastolic (congestive) heart failure <Edgard Newman - Last Filed: 05/17/18 15:53> (6) Sepsis Qualifiers: Sepsis type: sepsis due to unspecified organism Qualified Code(s): A41.9 - Sepsis, unspecified organism (7) COPD (chronic obstructive pulmonary disease) Qualifiers: COPD type: unspecified COPD Qualified Code(s): J44.9 - Chronic obstructive pulmonary disease, unspecified (8) HTN (hypertension) Qualifiers: Hypertension type: essential hypertension Qualified Code(s): I10 - Essential (primary) hypertension
[2018-05-17] MEDS: Ondansetron 4 MG/2 ML VIAL IVP PRN (18:30)
[2018-05-17] MEDS: Lactobacillus 1 EACH CAP.SPRINK PO SCH (22:20)
[2018-05-17] MEDS: Budesonide/Formoterol 160/4.5 1 PUFF INH IH SCH (22:59)
[2018-05-18] MEDS: Artificial Tears SOLN 15 ML BOTTLE BOTH EYES SCH ×6 (01:05→21:24)
[2018-05-18 07:32] LABS: Basophils % 0.2 %; Eosinophils % 2.3 %; Immature Granulocytes % 0.5 % (0-4)
[2018-05-18 07:34] LABS: Eosinophils # 0.1 K/mcL (0.0-0.6); Hematocrit 29.6 % (35.3-44.9); Hemoglobin 9.3 g/dL (11.5-15.4); Immature Platelets 3.1 % (1.1-6.1); Lymphocytes # 1.1 K/mcL (0.6-4.6); Lymphocytes % 24.7 %; Mean Corpuscular HGB Conc 31.4 g/dL (31.6-35.5); Mean Corpuscular Hemoglobin 29.8 pg (28.0-33.3); Mean Corpuscular Volume 94.9 fL (83.0-100.0); Mean Platelet Volume 9.5 fL (9.4-12.4); Monocytes # 0.3 K/mcL (0.0-1.3); Monocytes % 7.1 %; Neutrophils # 2.8 K/mcL (1.6-8.9); Platelet Count 100 K/mcL (140-400); Red Blood Count 3.12 M/mcL (3.82-4.97); Red Cell Distribution Width 18.4 % (11.5-14.5); Segmented Neutrophils % 65.2 %
[2018-05-18 07:54] LABS: Calcium 8.3 mg/dL (8.6-10.3); Magnesium 1.6 mg/dL (1.6-2.6); Potassium 3.1 mEq/L (3.5-5.1)
--- NOTE | 2018-05-18 08:47 | Internal Med Progress Note ---
<Abraham Brandt Chucky - Last Filed: 05/18/18 14:49> Hospitalist Progress Note - Encounter Date of Encounter: 05/18/18 Time of Encounter: 08:30 - Subjective Interval History: Ms. Barber is a 72 yo F who was admitted for sepsis, infected hematoma, bacteremia, acute respiratory failure. Today the pt states that her sinus congestion and drainage has improved slightly but is still having some drainage and now has some left ear pain associated as well. She notes that she still has some lower abd pain and nausea when she attempts to eat but denies any vomiting and states that the Zofran does help with her nausea. She reports that she is feeling a little bit better compared to yesterday and states that she feels that the swelling in her hands has improved. The pt currently denies any fever, SOB, CP or any other sx at this time. - Exam Vitals: Temp Pulse Resp BP Pulse Ox 97.5 F L 93 15 116/77 100 05/18/18 08:00 05/18/18 08:00 05/18/18 08:00 05/18/18 08:00 05/18/18 08:00 Exam: Gen: A&O x 3, NAD, ENT: + left maxillary sinus tenderness, no frontal sinus tenderness, TMs are clear without erythema or bulging and good light reflex CVS: 2+ DP pulses bilat, RRR, midline sternotomy scar, 2+ pitting edema to BLE and decreased edema to the left hand compared to yesterday, right subclavian triple lumen in place without signs of infection. Pulm: Decreased breath sounds bilaterally, no rales or rhonchi. Pt is on 2 L O2 via nasal cannula. Abd: soft, mild tenderness to the RLQ but no rebound or guarding, KARAN drains in place with small amount of brownish drainage Skin: warm dry and intact. Neuro: alert, answering questions appropriately Psych: cooperative with exam, affect appropriate - Assessment and Plan (1) Bacteremia Current Visit: Yes Status: Acute Assessment and Plan: 2/2 to enterococcus (e. faecium), unclear source, likely 2/2 to pelvic fluid but could be due to PICC line as culture positive from [place] source was labeled PICC line per ID. Will remove today. Zosyn was d/c as anerobic coverage was given for 4 weeks, therefore switched to Rocephin. Plan: - ID following, due to Enterocococus growing on PICC line the PICC line will need to be removed today. Will consult IR. - blood cultures negative here - consider RICHARD, depending upon strain - Antibiotics: continue Daptomycin day 4(started on 05/15) and started Rocephin day 1, s/p 1 dose vancomycin 05/14, Zosyn 1 month per ID note. (2) Infected hematoma following procedure Current Visit: No Status: Acute Assessment and Plan: See bactermia above. Drains still in place. Repeat CT abd/pelvis with PO contrast ordered for re-evaluation shows that the abscess is still 9.2 x 5.[address] from 04/19/18 where it was 10.2 x 6.4 cm. Will consult IR regarding the KARAN drains given the abscess has not decreased sufficiently over the past month. (3) Acute and chronic respiratory failure with hypoxia Current Visit: Yes Status: Resolved Assessment and Plan: S/p intubation. Home O2 is NC 2L at night. Pt is currently on NC 2L O2. Plan: - continue DuoNebs prn - continue O2 support as needed (4) Congestive heart failure Current Visit: No Status: Chronic Assessment and Plan: Diastolic CHF. 2+ pitting edema to BLE, improved edema of the left hand. Pt's creatinine has increased from yesterday so will discontinue IV lasix and continue with home dose of 40 mg PO QD instead. (5) Sepsis Current Visit: No Status: Acute (6) COPD (chronic obstructive pulmonary disease) Current Visit: No Status: Chronic (7) Chronic kidney disease, stage 3 Current Visit: Yes Status: Chronic Comments: Creatinine is stable (8) Hypokalemia Current Visit: Yes Status: Acute Assessment and Plan: Most likely 2/2 to Lasix. Replaced with 40mcg IV and 40mg orally yesterday. This morning K is still 3.1. Will monitor as Lasix will be decreased. (9) Hypomagnesemia Current Visit: Yes Status: Acute Assessment and Plan: Magnesium was 1.5 yesterday and given 2 mg of magnesium and rechecked today and has improved to 1.6. DVT Prophylaxis: IPCDs - Time Spent with Patient Total time spent is greater than 50% in coordination of care (as documented) at patient's floor/unit and/or counseling patient: Plan of Care Discussed with: patient Internal Medicine: Result - Labs CBC & Chem 7: 05/18/18 12:45 05/18/18 07:21 Labs: BMP 05/17/18 05/18/18 18:37 07:21 Sodium 139 Potassium 3.4 L 3.1 L Chloride 99 Carbon Dioxide 34 H BUN 10 Creatinine 1.43 H Glucose 80 Calcium 8.3 L - ABG Interpretation ABG results: ABG ABG pH 7.38 pH Units (7.32-7.45) 05/13/18 05:11 ABG pCO2 40 mmHg (35-45) 05/13/18 05:11 ABG pO2 122 mmHg (85-104) H 05/13/18 05:11 ABG O2 Saturation 99 % (95-98) H 05/13/18 05:11 PT/INR, D-dimer PT 13.3 Seconds (9.4-12.1) H 05/13/18 04:18 - VTE Documentation of Mechanical Device: Intermittent pneumatic compression device Consult Discharge Plan - Plan Additional Instructions: KARAN drain X 2- cleanse around drains with soap and water and pat dry daily, apply split 4X4 gauze and tape to secure daily. Empty drains 2 times per day and records outputs (mls) and bring to follow-up appointment on 05/20/18. Referrals: Lokesh Cooper MD [Primary Care Provider] - Ericka Louise CNP [Advanced Practice Nurse] - 05/20/18 10:30 am (hospital follow-up) <Renetta Fraga - Last Filed: 05/18/18 15:07> Hospitalist Progress Note - Encounter Date of Encounter: 05/18/18 - Exam Vitals: Temp Pulse Resp BP Pulse Ox 97.5 F L 94 15 93/61 99 05/18/18 12:00 05/18/18 12:00 05/18/18 12:00 05/18/18 12:00 05/18/18 12:00 - Assessment and Plan (1) COPD (chronic obstructive pulmonary disease) Current Visit: No Status: Chronic (2) HTN (hypertension) Current Visit: No Status: Chronic (3) Diastolic CHF, acute on chronic Current Visit: No Status: Acute (4) Sepsis Current Visit: No Status: Acute (5) Infected hematoma following procedure Current Visit: No Status: Acute (6) Chronic kidney disease, stage 3 Current Visit: Yes Status: Chronic Comments: Creatinine is stable (7) Bacteremia Current Visit: Yes Status: Acute (8) Acute and chronic respiratory failure with hypoxia Current Visit: Yes Status: Resolved - Time Spent with Patient Total time spent is greater than 50% in coordination of care (as documented) at patient's floor/unit and/or counseling patient: Internal Medicine: Result - Labs CBC & Chem 7: 05/18/18 12:45 05/18/18 07:21 Labs: Short CBC 05/18/18 05/18/18 Range/Units 07:21 12:45 WBC 4.3 4.2 L (4.3-11.1) K/mcL Hgb 9.3 L 9.6 L (11.5-15.4) g/dL Hct 29.6 L 30.4 L (35.3-44.9) % Plt Count 100 L 100 L (140-400) K/mcL Neutrophils # 2.8 (1.6-8.9) K/mcL BMP 05/17/18 05/18/18 18:37 07:21 Sodium 139 Potassium 3.4 L 3.1 L Chloride 99 Carbon Dioxide 34 H BUN 10 Creatinine 1.43 H Glucose 80 Calcium 8.3 L - ABG Interpretation ABG results: ABG ABG pH 7.38 pH Units (7.32-7.45) 05/13/18 05:11 ABG pCO2 40 mmHg (35-45) 05/13/18 05:11 ABG pO2 122 mmHg (85-104) H 05/13/18 05:11 ABG O2 Saturation 99 % (95-98) H 05/13/18 05:11 PT/INR, D-dimer PT 14.9 Seconds (9.4-12.1) H 05/18/18 12:45 - Impressions Impressions Abdomen/Pelvis CT 05/18/18 10:45 IMPRESSION: Decreased size of large abscess in the intra-abdominal midline measuring approximately 9.2 x 5.1 cm status post percutaneous drainage. Abscess extends into the pelvis. Bilateral pleural effusions, abdominal/pelvic ascites and diffuse soft tissue edema suggesting anasarca/third-spacing. Other chronic findings are stable. D/ /18/2018 12:27:27 Sidney Morrison MD / Kandice Lopez Interpreting Provider: Sidney Morrison MD - Attending Attestation I have seen and examined this pt independently. I have discussed with resident physician Dr Wheeler and medical student regarding the management plan. Agree with the documentation. <Abraham Brandt - Last Filed: 05/18/18 14:49> (4) Congestive heart failure Qualifiers: Heart failure type: diastolic Heart failure chronicity: chronic Qualified Code(s): I50.32 - Chronic diastolic (congestive) heart failure (5) Sepsis Qualifiers: Sepsis type: sepsis due to unspecified organism Qualified Code(s): A41.9 - Sepsis, unspecified organism (6) COPD (chronic obstructive pulmonary disease) Qualifiers: COPD type: unspecified COPD Qualified Code(s): J44.9 - Chronic obstructive pulmonary disease, unspecified <Renetta Fraga - Last Filed: 05/18/18 15:07> (1) COPD (chronic obstructive pulmonary disease) Qualifiers: COPD type: unspecified COPD Qualified Code(s): J44.9 - Chronic obstructive pulmonary disease, unspecified (2) HTN (hypertension) Qualifiers: Hypertension type: essential hypertension Qualified Code(s): I10 - Essential (primary) hypertension (4) Sepsis Qualifiers: Sepsis type: sepsis due to unspecified organism Qualified Code(s): A41.9 - Sepsis, unspecified organism
[2018-05-18] MEDS: Furosemide 40 MG/4 ML VIAL IVP SCH (08:52)
[2018-05-18] MEDS: metOLazone 2.5 MG TABLET PO SCH (08:53)
[2018-05-18] MEDS: Loratadine 10 MG TABLET PO SCH (08:53)
[2018-05-18] MEDS: Lactobacillus 1 EACH CAP.SPRINK PO SCH ×2 (08:53→21:27)
[2018-05-18] MEDS: *HR* Amiodarone 200 MG TABLET PO SCH (08:53)
--- NOTE | 2018-05-18 10:23 | Infectious Disease Progress No ---
Date of Encounter: 05/18/18 Time of Encounter: 09:15 - Assessment and Plan (1) Bacteremia Current Visit: Yes Status: Acute Causative organism: VRE. Source: Unclear. The patient does have a pelvic fluid collection that appears to be decreased in size from previous exams. Previous cultures did grow out enterococcus faecium, which is typically Vanc-resistant, although her strain tested Vanc-susceptible. She also has a tunneled PICC line which is also a potential source. [facility] are +2 out of 2 sets for VRE. The specimen is labeled as being drawn from her PICC. I am unsure if there were any peripheral cultures drawn. Repeat blood cultures obtained here 3 sets (2 peripheral and one from her tunneled PICC line) are NGTD. No endocarditis stigmata noted on exam. The patient does have a prosthetic heart valve. Continue Daptomycin 6mg/kg IV daily. Check baseline CK level.--> 20. Given that the blood culture that is positive if from the tunneled PICC, we will need to remove it although I'm s the source vs. seeding from the bacteremia. Discussed with the primary team. Duration of treatment depends on the clinical picture. Monitor renal function for drug toxicity and dosage adjust antibiotics. (2) Infected hematoma following procedure Current Visit: No Status: Acute Causative organism: S. epi, E. coli x 2, and Enterococcus faecium. Additional culture obtained with new drain placement grew E. coli. Aspergillus also came back on the culture after the patient was discharged, but this is likely a contaminant as we recently had a known lab contamination. CT scan completed 03/29/2018 showed moderate volume of fluid in the pelvis and along the mesentery with subacute blood. Repeat CT of the abdomen and pelvis completed 04/01/18 showed a complex fluid collection within the pelvis, here unchanged in size and the density continued to decrease making the finding concerning for an organizing hematoma, although there was suggestion of possible capsule formation, and the possibility of an abscess should be considered. She also had some increasing right-sided hydronephrosis, but presumably from compression of the distal right ureteral compression. Status post CT-guided placement of abdominal abscess drainage catheter on by interventional radiology. No cultures were obtained at the time of catheter placement, but pathology was negative for malignancy. Culture obtained on 04/10/18 positive for and or coccus fascia, staph epi, and 2 strains of Escherichia coli. Repeat CT scan on 04/12/18 showed a large complex appearing fluid collection likely representing an abscess measuring approximately 17 x 11 x 8 cm in size and appears somewhat decreased in size when compared to the previous examination , however a large amount of fluid remained. Additional repeat CAT scan completed 04/19/18 showed complex large abscess in the lower abdomen and pelvis, unchanged in appearance and only slightly decreased in the size of the large abscess compared to prior examination, possibly secondary to multi loculation with a large amount of fluid remaining in the abscess. New drain placed in the abscess 04/19/18. Repeat CT scan 04/26/18 with PO contrast shows minimal improvement in the intra- abdominal abscess, likely secondary to multiple loculations. No surgical recommendations from the surgery team at that time. Get CT of the abdomen and pelvis with PO contrast this morning. Scheduled for 1045. Continue Daptomycin 6mg/kg IV daily as above. Continue Rocephin 2 grams IV daily. Re-start Flagyl 500mg PO TID. Duration of treatment depends on the clinical picture. She has completed 4 weeks of IV antibiotics since the last drain was placed. Monitor renal function and for drug toxicity and dose adjust antibiotics. (3) Altered mental status Current Visit: Yes Status: Resolved Etiology unclear. Based on the documentation, the patient had blood in her mouth and was incontinent of stool. Not sure if she had a seizure or if this was some other issue. CT of the head was negative. Altered mental status seems to have resolved. Continue to monitor closely. Qualifiers: Altered mental status type: unspecified Qualified Code(s): R41.82 - Altered mental status, unspecified (4) Anemia Current Visit: No Status: Acute Hemoglobin stable around 9. Further workup and management per the primary team. Qualifiers: Anemia type: unspecified type Qualified Code(s): D64.9 - Anemia, unspecified (5) Acute respiratory failure with hypoxia Current Visit: No Status: Resolved Etiology unclear. Intubated in the ER, but extubated 05/13/18. Resolved. (6) Hypokalemia Current Visit: Yes Status: Resolved Replacement per the primary team. (7) Atrial fibrillation Current Visit: Yes Status: Chronic Qualifiers: Atrial fibrillation type: persistent Qualified Code(s): I48.1 - Persistent atrial fibrillation (8) HLD (hyperlipidemia) Current Visit: Yes Status: Acute Qualifiers: Hyperlipidemia type: unspecified Qualified Code(s): E78.5 - Hyperlipidemia , unspecified (9) H/O prosthetic heart valve Current Visit: No Status: Chronic (10) Chronic kidney disease, stage 3 Current Visit: Yes Status: Chronic Continue to trend and dose-adjust antibiotics. (11) GERD (gastroesophageal reflux disease) Current Visit: Yes Status: Acute Qualifiers: Esophagitis presence: esophagitis presence not specified Qualified Code(s) : K21.9 - Gastro-esophageal reflux disease without esophagitis (12) COPD (chronic obstructive pulmonary disease) Current Visit: No Status: Chronic Qualifiers: COPD type: unspecified COPD Qualified Code(s): J44.9 - Chronic obstructive pulmonary disease, unspecified - Subjective Interval history: Patient seen and examined. No acute events noted overnight. Patient resting quietly in bed. Awakens easily to verbal stimuli. States overall she feels well. Reports intermittent chills, but denies fevers or rigors. Denies chest pain or cough, but does endorse some shortness of breath. Denies nausea, vomiting, or diarrhea. Last BM was two days ago. She continues to report right groin pain and lower abdomen pain. Denies oral thrush. CT of the abdomen and pelvis scheduled for 1045 this morning. Infect Dis PN-Objective Data - Labs CBC & Chem 7: 05/18/18 12:45 05/19/18 04:53 Labs: Laboratory Results - last 24 hr 05/17/18 05/18/18 05/18/18 18:37 05:40 07:21 Sodium 139 Potassium 3.4 L 3.1 L Chloride 99 Carbon Dioxide 34 H BUN 10 Creatinine 1.43 H Est GFR ( Amer) 43 L Est GFR (Non-Af Amer) 36 L BUN/Creatinine Ratio 7 Glucose 80 POC Glucose 90 Calculated Osmolality 286 Calcium 8.3 L Magnesium 1.6 Cultures: Cultures 05/13/18 13:05 Blood Culture - Preliminary Peripheral Venipuncture Culture is incubating and being continuously monitored for growth. Final report to follow. 05/13/18 13:05 Blood Culture - Preliminary Peripheral Venipuncture Culture is incubating and being continuously monitored for growth. Final report to follow. 05/13/18 13:05 Blood Culture - Preliminary Central Venous Catheter Culture is incubating and being continuously monitored for growth. Final report to follow. Exam - Constitutional Vitals: Temp Pulse Resp BP Pulse Ox 97.5 F L 93 15 116/77 100 05/18/18 08:00 05/18/18 08:00 05/18/18 08:00 05/18/18 08:00 05/18/18 08:00 General appearance: cooperative, no acute distress, obese - Head Head exam: Present: atraumatic, normal inspection, normocephalic - Eye Eye exam: Present: normal appearance - ENT ENT exam: Present: mucous membranes moist - Neck Neck exam: Present: normal inspection - Respiratory Respiratory exam: Present: CTAB. Absent: rales, respiratory distress, rhonchi, wheezes - Cardiovascular Cardiovascular exam: Present: irregular rhythm. Absent: tachycardia - GI/Abdominal GI/Abdominal exam: Present: distended (obese), normal bowel sounds, soft, tenderness (RLQ) Additional comments: KARAN drain x 2 to the lower left abdomen with small amount of dark brown purulent drainage noted. Parks catheter noted to be draining clear yellow urine. - Extremities Exam Extremities exam: Present: pedal edema (1+ BLE). Absent: joint swelling, tenderness - Neurological Exam Neurological exam: Present: alert, oriented X3, no focal deficits - Psychiatric Psychiatric exam: Present: normal affect, normal mood - Skin Skin exam: Present: dry, intact, normal color, warm - Additional findings Additional findings: Tunnelled PICC line noted to the right upper chest without redness, warmth, drainage, or tenderness. Transparent dressing C/D/I. - VTE Documentation of Mechanical Device: Intermittent pneumatic compression device Consult Discharge Plan - Plan Additional Instructions: KARAN drain X 2- cleanse around drains with soap and water and pat dry daily, apply split 4X4 gauze and tape to secure daily. Empty drains 2 times per day and records outputs (mls) and bring to follow-up appointment on 05/20/18. Referrals: Lokesh Cooper MD [Primary Care Provider] - Ericka Louise CNP [Advanced Practice Nurse] - 05/20/18 10:30 am (hospital follow-up) - Attending Attestation I examined this patient and my medical decision-making was reviewed with Monica Waller CNP. I agree with the documented findings, disposition and treatment plan as described except to the extent set forth below.
[2018-05-18] MEDS: Budesonide/Formoterol 160/4.5 1 PUFF INH IH SCH ×2 (10:26→19:59)
[2018-05-18 11:21] LABS: Anisocytosis 1+ (Not Present); Platelet Estimate Slight Decrease (Normal)
[2018-05-18] MEDS: DAPTOMYCIN IVPB SCH (12:53)
[2018-05-18] MEDS: SODIUM CHLORIDE 0.9% IVPB SCH (12:53)
[2018-05-18] MEDS: cefTRIAXone 2,000 MG in 0.9 % Sodium Chloride Mini Bag 100 ML IVPB SCH (12:54)
[2018-05-18 13:32] LABS: Hematocrit 30.4 % (35.3-44.9); Hemoglobin 9.6 g/dL (11.5-15.4); Mean Corpuscular HGB Conc 31.6 g/dL (31.6-35.5); Mean Corpuscular Hemoglobin 29.8 pg (28.0-33.3); Mean Corpuscular Volume 94.4 fL (83.0-100.0); Mean Platelet Volume 9.9 fL (9.4-12.4); Platelet Count 100 K/mcL (140-400); Red Blood Count 3.22 M/mcL (3.82-4.97); Red Cell Distribution Width 18.2 % (11.5-14.5)
[2018-05-18 13:37] LABS: INR 1.3; Prothrombin Time 14.9 Seconds (9.4-12.1)
[2018-05-19] MEDS: Artificial Tears SOLN 15 ML BOTTLE BOTH EYES SCH ×6 (00:23→20:37)
[2018-05-19 06:18] LABS: Calcium 8.6 mg/dL (8.6-10.3); Magnesium 1.9 mg/dL (1.6-2.6); Potassium 3.7 mEq/L (3.5-5.1)
[2018-05-19] MEDS: Budesonide/Formoterol 160/4.5 1 PUFF INH IH SCH ×2 (08:17→19:58)
--- NOTE | 2018-05-19 09:11 | Internal Med Progress Note ---
<AidaeliudAbraham Chucky - Last Filed: 05/19/18 11:46> Hospitalist Progress Note - Encounter Date of Encounter: 05/19/18 Time of Encounter: 11:46 - Subjective Interval History: Ms. Barber is a 72 yo F who was admitted for sepsis, infected hematoma, bacteremia, acute respiratory failure. Today the pt states that she feels like she has some "gas pain" but denies any abd pain currently and has been able to have a BM. She reports that she is feeling better today but feels like her mouth is dry. The pt states that her sins drainage has improved. She currently denies any nausea, vomiting, fever, chills, SOB or any other sx at this time. - Exam Vitals: Temp Pulse Resp BP Pulse Ox 97.8 F 95 18 112/70 97 05/19/18 06:54 05/19/18 06:54 05/19/18 06:54 05/19/18 06:54 05/19/18 06:54 Exam: Gen: A&O x 3, NAD, ENT: no sinus tenderness, slightly dry mucous membranes CVS: 2+ DP pulses bilat, slightly tachycardic with regular rhythm, midline sternotomy scar, 2+ pitting edema to BLE, no upper extremity edema. Pulm: Decreased breath sounds bilaterally, no rales or rhonchi. Pt is on 2 L O2 via nasal cannula. Abd: soft, mild tenderness to the RLQ but no rebound or guarding, KARAN drains in place with slightly increased amount of drainage today compared to yesterday Skin: warm dry and intact. Neuro: alert, answering questions appropriately Psych: cooperative with exam, affect appropriate - Assessment and Plan (1) Bacteremia Current Visit: Yes Status: Acute Assessment and Plan: 2/2 to enterococcus (e. faecium), unclear source, likely 2/2 to pelvic fluid but could be due to PICC line as culture positive from [place] source was labeled PICC line per ID. Will remove today. Zosyn was d/c as anerobic coverage was given for 4 weeks, therefore switched to Rocephin. Plan: - ID following, due to Enterocococus growing on PICC line the PICC was removed yesterday by IR. - blood cultures negative here - consider RICHARD, depending upon strain - Antibiotics: continue Daptomycin day 5(started on 05/15) and started Rocephin day 2 (started 05/18) s/p 1 dose vancomycin 05/14, Zosyn 1 month per ID note. (2) Infected hematoma following procedure Current Visit: No Status: Acute Assessment and Plan: See bactermia above. Drains still in place. Repeat CT abd/pelvis with PO contrast ordered for re-evaluation shows that the abscess is still 9.2 x 5.[address] from 04/19/18 where it was 10.2 x 6.4 cm. IR called nursing last night and requested that the drains be flushed by nursing and drains have been flushed twice since yesterday evening and there have only been 15 cc drained from both drains in over 12 hours. - Will discuss with IR regarding further intervention at this time given continued size of the abscess. (3) Acute and chronic respiratory failure with hypoxia Current Visit: Yes Status: Resolved Assessment and Plan: Pt is s/p intubation and currently on 2L NC and breathing comfortably. (4) Congestive heart failure Current Visit: No Status: Chronic (5) Sepsis Current Visit: No Status: Acute Assessment and Plan: Refer to bactermia above. (6) COPD (chronic obstructive pulmonary disease) Current Visit: No Status: Chronic (7) Chronic kidney disease, stage 3 Current Visit: Yes Status: Chronic Assessment and Plan: Creatinine has improved from 1.43 to 1.34. Will continue with lasix 40 mg PO, pt 's home dosing. Comments: Creatinine is stable (8) Hypokalemia Current Visit: Yes Status: Resolved Assessment and Plan: Potassium has improved to 3.7. Will hold off on furhter PO potassium and monitor. (9) Hypomagnesemia Current Visit: Yes Status: Resolved Assessment and Plan: Resolved. Magnesium is now 1.9. DVT Prophylaxis: IPCDs - Time Spent with Patient Total time spent is greater than 50% in coordination of care (as documented) at patient's floor/unit and/or counseling patient: Internal Medicine: Result - Labs CBC & Chem 7: 05/18/18 12:45 05/19/18 04:53 Labs: Short CBC 05/18/18 05/18/18 Range/Units 07:21 12:45 WBC 4.3 4.2 L (4.3-11.1) K/mcL Hgb 9.3 L 9.6 L (11.5-15.4) g/dL Hct 29.6 L 30.4 L (35.3-44.9) % Plt Count 100 L 100 L (140-400) K/mcL Neutrophils # 2.8 (1.6-8.9) K/mcL BMP 05/19/18 04:53 Sodium 137 Potassium 3.7 Chloride 96 L Carbon Dioxide 31 H BUN 10 Creatinine 1.34 H Glucose 69 L Calcium 8.6 - ABG Interpretation ABG results: ABG ABG pH 7.38 pH Units (7.32-7.45) 05/13/18 05:11 ABG pCO2 40 mmHg (35-45) 05/13/18 05:11 ABG pO2 122 mmHg (85-104) H 05/13/18 05:11 ABG O2 Saturation 99 % (95-98) H 05/13/18 05:11 PT/INR, D-dimer PT 14.9 Seconds (9.4-12.1) H 05/18/18 12:45 - Impressions Impressions Abdomen/Pelvis CT 05/18/18 10:45 IMPRESSION: Decreased size of large abscess in the intra-abdominal midline measuring approximately 9.2 x 5.1 cm status post percutaneous drainage. Abscess extends into the pelvis. Bilateral pleural effusions, abdominal/pelvic ascites and diffuse soft tissue edema suggesting anasarca/third-spacing. Other chronic findings are stable. D/ / 05/18/2018 12:27:27 Sidney Morrison MD / Kandice Lopez Interpreting Provider: Sidney Morrison MD - VTE Documentation of Mechanical Device: Intermittent pneumatic compression device Consult Discharge Plan - Plan Additional Instructions: KARAN drain X 2- cleanse around drains with soap and water and pat dry daily, apply split 4X4 gauze and tape to secure daily. Empty drains 2 times per day and records outputs (mls) and bring to follow-up appointment on 05/20/18. Referrals: Lokesh Cooper MD [Primary Care Provider] - Ericka Louise CNP [Advanced Practice Nurse] - 05/20/18 10:30 am (hospital follow-up) <Renetta Fraga - Last Filed: 05/19/18 12:26> Hospitalist Progress Note - Encounter Date of Encounter: 05/19/18 - Exam Vitals: Temp Pulse Resp BP Pulse Ox 98.4 F 96 16 111/75 96 05/19/18 10:53 05/19/18 10:53 05/19/18 10:53 05/19/18 10:53 05/19/18 10:53 - Assessment and Plan (1) COPD (chronic obstructive pulmonary disease) Current Visit: No Status: Chronic (2) HTN (hypertension) Current Visit: No Status: Chronic (3) Diastolic CHF, acute on chronic Current Visit: No Status: Acute (4) Sepsis Current Visit: No Status: Acute (5) Infected hematoma following procedure Current Visit: No Status: Acute (6) Chronic kidney disease, stage 3 Current Visit: Yes Status: Chronic Comments: Creatinine is stable (7) Bacteremia Current Visit: Yes Status: Acute (8) Acute and chronic respiratory failure with hypoxia Current Visit: Yes Status: Resolved - Time Spent with Patient Total time spent is greater than 50% in coordination of care (as documented) at patient's floor/unit and/or counseling patient: Internal Medicine: Result - Labs CBC & Chem 7: 05/18/18 12:45 05/19/18 04:53 Labs: Short CBC 05/18/18 05/18/18 Range/Units 07:21 12:45 WBC 4.3 4.2 L (4.3-11.1) K/mcL Hgb 9.3 L 9.6 L (11.5-15.4) g/dL Hct 29.6 L 30.4 L (35.3-44.9) % Plt Count 100 L 100 L (140-400) K/mcL BMP 05/19/18 04:53 Sodium 137 Potassium 3.7 Chloride 96 L Carbon Dioxide 31 H BUN 10 Creatinine 1.34 H Glucose 69 L Calcium 8.6 - ABG Interpretation ABG results: ABG ABG pH 7.38 pH Units (7.32-7.45) 05/13/18 05:11 ABG pCO2 40 mmHg (35-45) 05/13/18 05:11 ABG pO2 122 mmHg (85-104) H 05/13/18 05:11 ABG O2 Saturation 99 % (95-98) H 05/13/18 05:11 PT/INR, D-dimer PT 14.9 Seconds (9.4-12.1) H 05/18/18 12:45 - Impressions Impressions Abdomen/Pelvis CT 05/18/18 10:45 IMPRESSION: Decreased size of large abscess in the intra-abdominal midline measuring approximately 9.2 x 5.1 cm status post percutaneous drainage. Abscess extends into the pelvis. Bilateral pleural effusions, abdominal/pelvic ascites and diffuse soft tissue edema suggesting anasarca/third-spacing. Other chronic findings are stable. D/ / 05/18/2018 12:27:27 Sidney Morrison MD / Kandice Lopez Interpreting Provider: Sidney Morrison MD - Attending Attestation I have seen and examined this patient independently. I have discussed with medical collections specialist regarding the management plan. Agree with the documentation. Pt is awake, alert, oriented x 3. Pt is weak. Re-consult IR regarding KARAN drain as pt's infected hematoma seems not shrink significantly. PICC line infection was found. PICC line has been removed. Cont daptomycin and rocephin per ID. Will consult RD for diet supplement. <Abraham Brandt - Last Filed: 05/19/18 11:46> (4) Congestive heart failure Qualifiers: Heart failure type: diastolic Heart failure chronicity: chronic Qualified Code(s): I50.32 - Chronic diastolic (congestive) heart failure (5) Sepsis Qualifiers: Sepsis type: sepsis due to unspecified organism Qualified Code(s): A41.9 - Sepsis, unspecified organism (6) COPD (chronic obstructive pulmonary disease) Qualifiers: COPD type: unspecified COPD Qualified Code(s): J44.9 - Chronic obstructive pulmonary disease, unspecified <Catina Fragang - Last Filed: 05/19/18 12:26> (1) COPD (chronic obstructive pulmonary disease) Qualifiers: COPD type: unspecified COPD Qualified Code(s): J44.9 - Chronic obstructive pulmonary disease, unspecified (2) HTN (hypertension) Qualifiers: Hypertension type: essential hypertension Qualified Code(s): I10 - Essential (primary) hypertension (4) Sepsis Qualifiers: Sepsis type: sepsis due to unspecified organism Qualified Code(s): A41.9 - Sepsis, unspecified organism
[2018-05-19] MEDS: Acetaminophen 325 MG TABLET PO PRN ×2 (11:21→21:13)
[2018-05-19] MEDS: *HR* Amiodarone 200 MG TABLET PO SCH (11:21)
[2018-05-19] MEDS: Lactobacillus 1 EACH CAP.SPRINK PO SCH ×2 (11:21→20:37)
[2018-05-19] MEDS: metOLazone 2.5 MG TABLET PO SCH (11:21)
[2018-05-19] MEDS: Furosemide 40 MG TABLET PO SCH (11:22)
[2018-05-19] MEDS: Loratadine 10 MG TABLET PO SCH (11:22)
[2018-05-19] MEDS: cefTRIAXone 2,000 MG in 0.9 % Sodium Chloride Mini Bag 100 ML IVPB SCH (11:22)
[2018-05-19] MEDS ORDERED: SODIUM CHLORIDE 0.9% IVPB ONE (12:30)
[2018-05-19] MEDS ORDERED: ALTEPLASE IVPB ONE (12:30)
--- NOTE | 2018-05-19 13:40 | IR Progress Note ---
Vital Signs: Vital Signs/O2 Sat, Most Current Temp Pulse Resp BP Pulse Ox 98.4 F 96 16 111/75 96 05/19/18 10:53 05/19/18 10:53 05/19/18 10:53 05/19/18 10:53 05/19/18 10:53 Recent Labs: Lab Results 05/19/18 05/18/18 05/18/18 04:53 12:45 07:21 WBC 4.2 L 4.3 RBC 3.22 L 3.12 L Hgb 9.6 L 9.3 L Hct 30.4 L 29.6 L MCV 94.4 94.9 MCH 29.8 29.8 MCHC 31.6 31.4 L RDW 18.2 H 18.4 H Plt Count 100 L 100 L MPV 9.9 9.5 Neutrophils # 2.8 Lymphocytes # 1.1 Monocytes # 0.3 Eosinophils # 0.1 Basophils # 0.0 Sodium 137 Potassium 3.7 Chloride 96 L Carbon Dioxide 31 H BUN 10 Creatinine 1.34 H Est GFR ( Amer) 47 L Est GFR (Non-Af Amer) 39 L BUN/Creatinine Ratio 7 Glucose 69 L Calcium 8.6 Magnesium 1.9 05/18/18 05/17/18 05/17/18 07:21 18:37 05:20 WBC RBC Hgb Hct MCV MCH MCHC RDW Plt Count MPV Neutrophils # Lymphocytes # Monocytes # Eosinophils # Basophils # Sodium 139 140 Potassium 3.1 L 3.4 L 2.9 L Chloride 99 103 Carbon Dioxide 34 H 31 H BUN 10 10 Creatinine 1.43 H 1.34 H Est GFR ( Amer) 43 L 47 L Est GFR (Non-Af Amer) 36 L 39 L BUN/Creatinine Ratio 7 7 Glucose 80 75 Calcium 8.3 L 8.1 L Magnesium 1.6 1.5 L 05/17/18 05:20 WBC 3.8 L RBC 3.01 L Hgb 9.0 L Hct 28.9 L MCV 96.0 MCH 29.9 MCHC 31.1 L RDW 18.6 H Plt Count 93 L MPV 9.4 Neutrophils # 2.5 Lymphocytes # 0.9 Monocytes # 0.3 Eosinophils # 0.1 Basophils # 0.0 Sodium Potassium Chloride Carbon Dioxide BUN Creatinine Est GFR ( Amer) Est GFR (Non-Af Amer) BUN/Creatinine Ratio Glucose Calcium Magnesium Assessment and Plan Called by [facility] about IR drains not draining. Reviewed CT scan which showed both drain in good position within fluid cavity. Flushed both tubes with 10 ml NS and removed around 50 ml of brown-colored fluid. Recommend continued vigorous flushes with 10 ml NS. Once outputs less than 10 ml/day for 2 days, repeat CT scan to see if collection has resolved.
--- NOTE | 2018-05-19 14:07 | Infectious Disease Progress No ---
Date of Encounter: 05/19/18 Time of Encounter: 10:40 - Assessment and Plan (1) Bacteremia Current Visit: Yes Status: Acute Causative organism: VRE. Source: Unclear. The patient does have a pelvic fluid collection that appears to be decreased in size from previous exams. Previous cultures did grow out enterococcus faecium, which is typically Vanc-resistant, although her strain tested Vanc-susceptible. She also has a tunneled PICC line which is also a potential source. [facility] are +2 out of 2 sets for VRE. The specimen is labeled as being drawn from her PICC. I am unsure if there were any peripheral cultures drawn. Repeat blood cultures obtained here 3 sets (2 peripheral and one from her tunneled PICC line) are negative. No endocarditis stigmata noted on exam. The patient does have a prosthetic heart valve. Continue Daptomycin 6mg/kg IV daily. Check baseline CK level.--> 20. Tunnelled PICC line removed 05/18/18. Duration of treatment depends on the clinical picture, but likely an additional 4 weeks. Monitor renal function for drug toxicity and dosage adjust antibiotics. (2) Infected hematoma following procedure Current Visit: No Status: Acute Causative organism: S. epi, E. coli x 2, and Enterococcus faecium. Additional culture obtained with new drain placement grew E. coli. Aspergillus also came back on the culture after the patient was discharged, but this is likely a contaminant as we recently had a known lab contamination. CT scan completed 03/29/2018 showed moderate volume of fluid in the pelvis and along the mesentery with subacute blood. Repeat CT of the abdomen and pelvis completed 04/01/18 showed a complex fluid collection within the pelvis, here unchanged in size and the density continued to decrease making the finding concerning for an organizing hematoma, although there was suggestion of possible capsule formation, and the possibility of an abscess should be considered. She also had some increasing right-sided hydronephrosis, but presumably from compression of the distal right ureteral compression. Status post CT-guided placement of abdominal abscess drainage catheter on by interventional radiology. No cultures were obtained at the time of catheter placement, but pathology was negative for malignancy. Culture obtained on 04/10/18 positive for and or coccus fascia, staph epi, and 2 strains of Escherichia coli. Repeat CT scan on 04/12/18 showed a large complex appearing fluid collection likely representing an abscess measuring approximately 17 x 11 x 8 cm in size and appears somewhat decreased in size when compared to the previous examination , however a large amount of fluid remained. Additional repeat CAT scan completed 04/19/18 showed complex large abscess in the lower abdomen and pelvis, unchanged in appearance and only slightly decreased in the size of the large abscess compared to prior examination, possibly secondary to multi loculation with a large amount of fluid remaining in the abscess. New drain placed in the abscess 04/19/18. Repeat CT scan 04/26/18 with PO contrast shows minimal improvement in the intra- abdominal abscess, likely secondary to multiple loculations. No surgical recommendations from the surgery team at that time. Repeat CT of the abdomen and pelvis showed that the pelvic abscess had decreased in size, but was still there. Recommend surgery to re-evaluate. Not sure if surgical intervention vs. IR to replace drains would be indicated. Continue Daptomycin 6mg/kg IV daily as above. Continue Rocephin 2 grams IV daily. Continue Flagyl 500mg PO TID. Duration of treatment depends on the clinical picture. She has completed 4 weeks of IV antibiotics since the last drain was placed but will likely need an additional 4 weeks of Dapto + Rocephin. Monitor renal function and for drug toxicity and dose adjust antibiotics. (3) Altered mental status Current Visit: Yes Status: Resolved Etiology unclear. Based on the documentation, the patient had blood in her mouth and was incontinent of stool. Not sure if she had a seizure or if this was some other issue. CT of the head was negative. Altered mental status seems to have resolved. Continue to monitor closely. Qualifiers: Altered mental status type: unspecified Qualified Code(s): R41.82 - Altered mental status, unspecified (4) Anemia Current Visit: No Status: Acute Hemoglobin stable around 9. Further workup and management per the primary team. Qualifiers: Anemia type: unspecified type Qualified Code(s): D64.9 - Anemia, unspecified (5) Acute respiratory failure with hypoxia Current Visit: No Status: Resolved Etiology unclear. Intubated in the ER, but extubated 05/13/18. Resolved. (6) Hypokalemia Current Visit: Yes Status: Resolved Replacement per the primary team. (7) Atrial fibrillation Current Visit: Yes Status: Chronic Qualifiers: Atrial fibrillation type: persistent Qualified Code(s): I48.1 - Persistent atrial fibrillation (8) HLD (hyperlipidemia) Current Visit: Yes Status: Acute Qualifiers: Hyperlipidemia type: unspecified Qualified Code(s): E78.5 - Hyperlipidemia , unspecified (9) H/O prosthetic heart valve Current Visit: No Status: Chronic (10) Chronic kidney disease, stage 3 Current Visit: Yes Status: Chronic Continue to trend and dose-adjust antibiotics. (11) GERD (gastroesophageal reflux disease) Current Visit: Yes Status: Acute Qualifiers: Esophagitis presence: esophagitis presence not specified Qualified Code(s) : K21.9 - Gastro-esophageal reflux disease without esophagitis (12) COPD (chronic obstructive pulmonary disease) Current Visit: No Status: Chronic Qualifiers: COPD type: unspecified COPD Qualified Code(s): J44.9 - Chronic obstructive pulmonary disease, unspecified - Subjective Interval history: Patient seen and examined. No acute events noted overnight. Patient resting quietly in bed. Awakens easily to verbal stimuli. States overall she feels well. Reports intermittent chills, but denies fevers or rigors. Denies chest pain or cough or shortness of breath. Denies nausea, vomiting, or diarrhea. Last BM was yesterday. She continues to report right groin pain and lower abdomen pain. Denies oral thrush. Infect Dis PN-Objective Data - Labs CBC & Chem 7: 05/18/18 12:45 05/19/18 04:53 Labs: Laboratory Results - last 24 hr 05/18/18 05/18/18 05/18/18 07:21 12:12 16:56 WBC 4.3 RBC 3.12 L Hgb 9.3 L Hct 29.6 L MCV 94.9 MCH 29.8 MCHC 31.4 L RDW 18.4 H Plt Count 100 L MPV 9.5 Immature Plt Fraction 3.1 Sodium Potassium Chloride Carbon Dioxide BUN Creatinine Est GFR ( Amer) Est GFR (Non-Af Amer) BUN/Creatinine Ratio Glucose POC Glucose 75 83 Calculated Osmolality Calcium Magnesium 05/19/18 05/19/18 05/19/18 00:02 04:53 05:55 WBC RBC Hgb Hct MCV MCH MCHC RDW Plt Count MPV Immature Plt Fraction Sodium 137 Potassium 3.7 Chloride 96 L Carbon Dioxide 31 H BUN 10 Creatinine 1.34 H Est GFR ( Amer) 47 L Est GFR (Non-Af Amer) 39 L BUN/Creatinine Ratio 7 Glucose 69 L POC Glucose 74 71 Calculated Osmolality 281 Calcium 8.6 Magnesium 1.9 Cultures: Cultures 05/13/18 13:05 Blood Culture - Final Peripheral Venipuncture No growth. Final report. 05/13/18 13:05 Blood Culture - Final Peripheral Venipuncture No growth. Final report. 05/13/18 13:05 Blood Culture - Final Central Venous Catheter No growth. Final report. Exam - Constitutional Vitals: Temp Pulse Resp BP Pulse Ox 98.4 F 96 16 111/75 96 05/19/18 10:53 05/19/18 10:53 05/19/18 10:53 05/19/18 10:53 05/19/18 10:53 General appearance: cooperative, no acute distress, obese - Head Head exam: Present: atraumatic, normal inspection, normocephalic - Eye Eye exam: Present: normal appearance - ENT ENT exam: Present: mucous membranes moist - Neck Neck exam: Present: normal inspection - Respiratory Respiratory exam: Present: CTAB. Absent: rales, respiratory distress, rhonchi, wheezes - Cardiovascular Cardiovascular exam: Present: +S1, +S2, tachycardia. Absent: irregular rhythm - GI/Abdominal GI/Abdominal exam: Present: distended (obese), normal bowel sounds, soft, tenderness (RLQ) - Extremities Exam Extremities exam: Present: pedal edema (1+ BLE). Absent: joint swelling, tenderness - Neurological Exam Neurological exam: Present: alert, oriented X3, no focal deficits - Psychiatric Psychiatric exam: Present: normal affect, normal mood - Skin Skin exam: Present: dry, intact, normal color, warm - VTE Documentation of Mechanical Device: Intermittent pneumatic compression device Consult Discharge Plan - Plan Additional Instructions: KARAN drain X 2- cleanse around drains with soap and water and pat dry daily, apply split 4X4 gauze and tape to secure daily. Empty drains 2 times per day and records outputs (mls) and bring to follow-up appointment on 05/20/18. Referrals: Lokesh Cooper MD [Primary Care Provider] - Ericka Louise CNP [Advanced Practice Nurse] - 05/20/18 10:30 am (hospital follow-up) - Attending Attestation I examined this patient and my medical decision-making was reviewed with the Resident Physician. I agree with the documented findings, disposition and treatment plan as described except to the extent set forth below.
[2018-05-19] MEDS: DAPTOMYCIN IVPB SCH (15:28)
[2018-05-19] MEDS: SODIUM CHLORIDE 0.9% IVPB SCH (15:28)
[2018-05-20] MEDS: Artificial Tears SOLN 15 ML BOTTLE BOTH EYES SCH ×7 (00:09→22:56)
[2018-05-20] MEDS: Acetaminophen 325 MG TABLET PO PRN ×3 (03:49→18:27)
--- NOTE | 2018-05-20 08:20 | Internal Med Progress Note ---
Hospitalist Progress Note - Encounter Date of Encounter: 05/20/18 Time of Encounter: 09:23 - Subjective Interval History: Ms. Barber is a 72 yo F who was admitted for sepsis, infected hematoma, bacteremia, acute respiratory failure. Today the pt states that she feels like she has some continued "gas pain" but denies any abd pain currently and reports that she did not have a BM yesterday( nursing note shows a BM at 0420 yesterday). She reports that she is feeling better today. The pt states that her sinus drainage has improved with the Mucinex and did not have any drainage last night. She currently denies any nausea, vomiting, fever, chills, SOB or any other sx at this time. - Exam Vitals: Temp Pulse Resp BP Pulse Ox 98.1 F 96 18 118/77 98 05/20/18 07:45 05/20/18 07:45 05/20/18 07:45 05/20/18 07:45 05/20/18 07:45 Exam: Gen: A&O x 3, NAD, ENT: no sinus tenderness, slightly dry mucous membranes CVS: RRR, midline sternotomy scar, 2+ pitting edema to BLE, no upper extremity edema. Pulm: Decreased breath sounds bilaterally with poor inspiratory effort, no rales or rhonchi. Pt is on 2 L O2 via nasal cannula. Abd: soft, mild tenderness to the RLQ but no rebound or guarding, KARAN drains in place with increased drainage (55 cc drained this morning) Skin: warm dry and intact. Neuro: alert, answering questions appropriately Psych: cooperative with exam, affect appropriate - Assessment and Plan (1) Bacteremia Current Visit: Yes Status: Acute Assessment and Plan: 2/2 to enterococcus (e. faecium), unclear source, likely 2/2 to pelvic fluid but could be due to PICC line as culture positive from [place] source was labeled PICC line per ID. Subclavian tunnel PICC was removed 2 days ago and will continue with Daptomycin and Rocephin Plan: - ID following, due to Enterocococus growing on PICC line the PICC was removed 2 days ago by IR. - blood cultures negative here - Antibiotics: continue Daptomycin day 6(started on 05/15) and started Rocephin day 3 (started 05/18) s/p 1 dose vancomycin 05/14, Zosyn 1 month per ID note. ID has added Flagyl 750 mg PO QD today (05/20) and recommends it be continued for 2 weeks. - ID recommends continuing abx treatment for 4 more weeks and that the pt will need to f/u with ID in 4 weeks time as well for re-evaluation. (2) Infected hematoma following procedure Current Visit: No Status: Acute Assessment and Plan: See bactermia above. KARAN drains were discussed with IR yesterday and they had recommended repeated flushes with 10 mL saline daily to ensure drains are working properly. there was 130 mL of drainage collected yesterday and 65 mL collected so far this morning as well. IR recommended that once the drains produce less than 10 mL QD that the pt will need a repeat CT to assess the abscess. (3) Acute and chronic respiratory failure with hypoxia Current Visit: Yes Status: Resolved Assessment and Plan: Pt is s/p intubation and currently on 2L NC and breathing comfortably. (4) Congestive heart failure Current Visit: No Status: Chronic (5) Sepsis Current Visit: No Status: Resolved Assessment and Plan: Refer to bactermia assessment above. (6) COPD (chronic obstructive pulmonary disease) Current Visit: No Status: Chronic (7) Chronic kidney disease, stage 3 Current Visit: Yes Status: Chronic Assessment and Plan: Creatinine was elevated yesterday but is closer to pt's baseline. Given abx are being titrated to renal function and pt's h/o CKD will continue to monitor renal function with repeat BMP. Comments: Creatinine is stable (8) Hypokalemia Current Visit: Yes Status: Resolved (9) Hypomagnesemia Current Visit: Yes Status: Resolved DVT Prophylaxis: IPCDs - Time Spent with Patient Total time spent is greater than 50% in coordination of care (as documented) at patient's floor/unit and/or counseling patient: Internal Medicine: Result - Labs CBC & Chem 7: 05/18/18 12:45 05/19/18 04:53 - ABG Interpretation ABG results: ABG ABG pH 7.38 pH Units (7.32-7.45) 05/13/18 05:11 ABG pCO2 40 mmHg (35-45) 05/13/18 05:11 ABG pO2 122 mmHg (85-104) H 05/13/18 05:11 ABG O2 Saturation 99 % (95-98) H 05/13/18 05:11 PT/INR, D-dimer PT 14.9 Seconds (9.4-12.1) H 05/18/18 12:45 - VTE Documentation of Mechanical Device: Intermittent pneumatic compression device Consult Discharge Plan - Plan Additional Instructions: KARAN drain X 2- cleanse around drains with soap and water and pat dry daily, apply split 4X4 gauze and tape to secure daily. Empty drains 2 times per day and records outputs (mls) and bring to follow-up appointment on 05/20/18. Referrals: Lokesh Cooper MD [Primary Care Provider] - Ericka Louise CNP [Advanced Practice Nurse] - 05/20/18 10:30 am (hospital follow-up) (4) Congestive heart failure Qualifiers: Heart failure type: diastolic Heart failure chronicity: chronic Qualified Code(s): I50.32 - Chronic diastolic (congestive) heart failure (5) Sepsis Qualifiers: Sepsis type: sepsis due to unspecified organism Qualified Code(s): A41.9 - Sepsis, unspecified organism (6) COPD (chronic obstructive pulmonary disease) Qualifiers: COPD type: unspecified COPD Qualified Code(s): J44.9 - Chronic obstructive pulmonary disease, unspecified
[2018-05-20] MEDS: cefTRIAXone 2,000 MG in 0.9 % Sodium Chloride Mini Bag 100 ML IVPB SCH (10:13)
[2018-05-20] MEDS: Lactobacillus 1 EACH CAP.SPRINK PO SCH ×2 (10:14→22:30)
[2018-05-20] MEDS: metOLazone 2.5 MG TABLET PO SCH (10:15)
[2018-05-20] MEDS: *HR* Amiodarone 200 MG TABLET PO SCH (10:15)
[2018-05-20] MEDS: metroNIDAZOLE 500 MG TABLET PO SCH ×3 (10:15→22:30)
[2018-05-20] MEDS: Furosemide 40 MG TABLET PO SCH (10:15)
[2018-05-20] MEDS: Loratadine 10 MG TABLET PO SCH (10:16)
[2018-05-20] MEDS: Ondansetron 4 MG/2 ML VIAL IVP PRN ×2 (10:26→22:34)
[2018-05-20] MEDS: Budesonide/Formoterol 160/4.5 1 PUFF INH IH SCH ×2 (10:59→20:17)
--- NOTE | 2018-05-20 11:34 | Discharge Summary ---
<Gabi Wheeler - Last Filed: 05/20/18 14:08> - NOTES TO OUTPATIENT PROVIDER Notes to Outpatient Provider: - KARAN drain X 2- cleanse around drains with soap and water and pat dry daily, apply split 4X4 gauze and tape to secure daily. Empty drains 2 times per day and records outputs (mls) and bring to follow-up appointment with Surgery on 05/20/18. - Please flush drains with normal saline 10ml every 8 hours as drain became clogged during the hospital stay. - Once output in KARAN dains is less than 10 ml/day for 2 days, repeat CT scan to see if collection has resolved. - recommend PT/OT evaluation. - Will need to follow- up with surgery on 05/20 and infectious disease in 4 weeks. - will need to continue Daptomycin and Rocephin for another 28 days. Flagyl will need a total of 2 weeks for a total of 6 weeks of anerobic coverage. - Will need weekly CBC , BUN/Cr, ESR, and CRP. - Will need weekly Powerglide care per protocol. - Follow up with ID 06/03/18 at 1330. Orders not resulted at time of discharge: Pending orders 05/18/18 IR cvc repo tunnel wo prt/environmental engineer [IR] Routine 05/21/18 04:00 BMP [Basic Metabolic Panel] AM 0400 Complete Blood Count [HEME] AM 0400 Date of Encounter: 05/20/18 Time of Encounter: 11:00 - Discharge Diagnosis (1) Bacteremia Priority: Primary Status: Acute (2) Acute and chronic respiratory failure with hypoxia Priority: Secondary Status: Resolved (3) Hypomagnesemia Priority: Secondary Status: Resolved (4) Chronic kidney disease, stage IV (severe) Priority: Secondary Status: Chronic (5) Hypokalemia Priority: Secondary Status: Acute (6) Congestive heart failure Priority: Secondary Status: Chronic Qualifiers: Heart failure type: diastolic Heart failure chronicity: chronic Qualified Code(s): I50.32 - Chronic diastolic (congestive) heart failure (7) Infected hematoma following procedure Priority: Secondary Status: Acute (8) Thrombocytopenia Priority: Secondary Status: Acute Hospital course: Ms. Barber is a 72 year old female pmh of diastolic CHF, COPD not oxygen dependent, CAD, retinitis pigmentosa, history of subdural hematoma in May 2017 after a fall, Pablo Bonnet Syndrome, nearly blind, GERD, hyperlipidemia, hypertension, osteoporosis, chronic kidney disease stage IV, recent intra- abdominal abscess / hematoma infection after appendectomy presented to the ED at [place] on 05/12/18 after being found unresponsive in [facility]. She was at the facility after having KARAN drains placed for an intraabdominal abscess that developed after she had an appendectomy on 03/10/18 and had been on vanco and rocephin. She was found at [facility] unresponsive with reports of blood in her mouth. She presented to the ED at [place] intubated for respiratory failure secondary most likely 2/2 sepsis with bacteremia, source intraabdominal abscess. In the ED at [place], obtained cultures from the tunneled PICC line (PICC for longer term antibiotics) and 2 peripheral cultures. Pt was transferred to [place] and was admitted to the ICU for respiratory failure, sepsis 2/2 infected intraabdominal abscess. Pt was extubated on 05/13 and was transferred to the floor on 05/15 on NC 2L. Surgery was consulted about absess and did not think further surgical management and recommened continued Zosyn and Vanco. Patient's vitals remained stable throughout floor stay. Drain to wound had minimal drainage so repeat CT of the abdomen and pelvis was obtained and showed that the pelvic abscess had decreased in size, from 10.2 x 6.4 cm ( 04/19) to 9.2 by 5.1 cm.IR was consulted to due to decrease drainage and recommended vigerous flushing with normal saline 10mg Q8H. Drainage resumed after flushing. Blood cultures x 3 here negative. Cultures from abscess (obtained at [facility])on obtained on 04/10/18 positive for and or coccus fascia, staph epi, and 2 strains of Escherichia coli and was of them was labelled PICC line, so Tunnel picc was removed. Power glide was placed for supervisor intermediates antibiotics. Infectious disease recommended pt be placed on Daptomycin and to discontinue the Zosyn and begin pt on Rocephin along with the Daptomycin for 4 weeks and also continue anaerobic coverage with Flagyl for 2 additional weeks. Recommends f/u with ID in 4 weeks. Patient was discharged back to [facility] was follow up, Pt to f/u with surgery in 1 week, F /u with ID in 4 weeks and instructions from IR to Repeat CT once there is less than 10 mL drainage and consult as needed. Patient will need weekly CBC, BUN/Cr , ESR, and CRP. She will also need normal saline flushes of 10ml of the drain Q8Hs. INFECTIOUS DISEASE RECOMMENDATIONS/SUMMARY: Causative organism: S. epi, E. coli x 2, and Enterococcus faecium. Additional culture obtained with new drain placement grew E. coli. Aspergillus also came back on the culture after the patient was discharged, but this is likely a contaminant as we recently had a known lab contamination. CT scan completed 03/29/2018 showed moderate volume of fluid in the pelvis and along the mesentery with subacute blood. Repeat CT of the abdomen and pelvis completed 04/01/18 showed a complex fluid collection within the pelvis, here unchanged in size and the density continued to decrease making the finding concerning for an organizing hematoma, although there was suggestion of possible capsule formation, and the possibility of an abscess should be considered. She also had some increasing right-sided hydronephrosis, but presumably from compression of the distal right ureteral compression. Status post CT-guided placement of abdominal abscess drainage catheter on by interventional radiology. No cultures were obtained at the time of catheter placement, but pathology was negative for malignancy. Culture obtained on 04/10/18 positive for and or coccus fascia, staph epi, and 2 strains of Escherichia coli. Repeat CT scan on 04/12/18 showed a large complex appearing fluid collection likely representing an abscess measuring approximately 17 x 11 x 8 cm in size and appears somewhat decreased in size when compared to the previous examination , however a large amount of fluid remained. Additional repeat CAT scan completed 04/19/18 showed complex large abscess in the lower abdomen and pelvis, unchanged in appearance and only slightly decreased in the size of the large abscess compared to prior examination, possibly secondary to multi loculation with a large amount of fluid remaining in the abscess. New drain placed in the abscess 04/19/18. Repeat CT scan 04/26/18 with PO contrast shows minimal improvement in the intra- abdominal abscess, likely secondary to multiple loculations. No surgical recommendations from the surgery team at that time. Repeat CT of the abdomen and pelvis showed that the pelvic abscess had decreased in size, but was still there. Recommend surgery to re-evaluate. Not sure if surgical intervention vs. IR to replace drains would be indicated. Continue Daptomycin 6mg/kg IV daily as above. Continue Rocephin 2 grams IV daily. Continue Flagyl 500mg PO TID. Duration of treatment depends on the clinical picture. She has completed 4 weeks of IV antibiotics since the last drain was placed but will likely need an additional 4 weeks of Dapto + Rocephin + flagyl. Will plan to repeat CT scan in 4 weeks. Monitor renal function and for drug toxicity and dose adjust antibiotics. The patient has a Powerglide which we can use for now for her IV antibiotics on discharge in order to avoid placing another tunneled PICC line. Will need weekly CBC, BUN/Cr, ESR, and CRP. Will need weekly Powerglide care per protocol. Follow up with ID 06/03/18 at 1330. - Time Spent with Patient Total time spent providing and/or coordinating discharge services: - Discharge Medications Prescriptions: cefTRIAXone [Rocephin] 2,000 mg IVPB DAILY 28 Days #28 vial Daptomycin [Cubicin Rf] 640 mg IV DAILY 25 Days #30 vial metroNIDAZOLE [Flagyl] 500 mg PO TID 14 Days #42 tablet Home Medications: Cyclosporine [Restasis] 1 drop BOTH EYES BID 04/30/15 [History] Potassium Chloride 20 meq PO DAILY 06/19/16 [History] Calcitriol [Rocaltrol] 0.25 mcg PO DAILY 03/20/17 [History] Albuterol Sulfate [Albuterol Inhaler] 2 puff IH Q4HR PRN 08/27/17 [History] Atorvastatin Calcium [Lipitor] 20 mg PO HS 10/06/17 [History] Esomeprazole Magnesium [Nexium] 40 mg PO DAILY 10/06/17 [History] Aspirin Enteric Coated [Aspirin EC] 81 mg PO DAILY tablet. 11/02/17 [Rx] Amiodarone [Cordarone] 200 mg PO DAILY 11/28/17 [History] Docusate [Colace] 100 mg PO BID PRN capsule 12/02/17 [Rx] Fluticasone Propionate Nasal [Flonase] 50 mcg NS DAILY bottle 12/02/17 [Rx] GuaiFENesin Liq [Robitussin Liq] 200 mg PO Q4HR PRN 02/11/18 [History] Furosemide [Lasix] 40 mg PO DAILY 03/09/18 [History] Quetiapine Fumarate [Seroquel] 50 mg PO HS 03/09/18 [History] Fluticasone/Vilanterol [Breo Ellipta 100-25 Mcg INH] 1 puff IH DAILY 03/29/18 [ History] Loperamide [Imodium] 2 mg PO Q6H PRN 03/29/18 [History] Ondansetron [Zofran] 8 mg PO Q6H PRN 03/29/18 [History] Acetaminophen [Tylenol] 650 mg PO Q4HR PRN #60 tablet 04/29/18 [Rx] Bisacodyl [Dulcolax] 10 mg RC DAILY PRN supp.rect 04/29/18 [Rx] Calcium Carbonate [Tums] 1,000 mg PO Q4HR PRN #30 tab.chew 04/29/18 [Rx] Ferrous Sulfate 325 mg PO BIDWM #60 tablet 04/29/18 [Rx] Lactobacillus [Culturelle] 1 each PO BID #60 cap.sprink 04/29/18 [Rx] Loratadine [Claritin] 10 mg PO Q48H #0 04/29/18 [Rx] Metoprolol [Lopressor] 12.5 mg PO BID #30 tablet 04/29/18 [Rx] 0.9 % Sodium Chloride [Normal Saline Flush] 10 ml IVP Q8H syringe 05/20/18 [Rx] Daptomycin [Cubicin Rf] 640 mg IV DAILY 25 Days #30 vial 05/20/18 [Rx] cefTRIAXone [Rocephin] 2,000 mg IVPB DAILY 28 Days #28 vial 05/20/18 [Rx] metroNIDAZOLE [Flagyl] 500 mg PO TID 14 Days #42 tablet 05/20/18 [Rx] Allergies/Adverse Reactions: 3 Allergy/AdvReac Type Severity Reaction Status Date / Time ciprofloxacin [From Cipro] Allergy Hives Verified 03/29/18 21:41 meperidine [From Demerol] AdvReac Vomiting Verified 03/29/18 21:41 Date of admission: 05/12/18 14:40 Primary care physician: Lokesh Cooper MD Consults: 05/12/18 16:41 Consult to Invasive Line Access Team [CONS] Routine Reason for Consult: poor access Line Type: EPIV 05/13/18 08:46 Consult to Infectious Diseases [CONS] Routine Consulting Provider: [facility] Reason for Consult: history of pelvic abcess, was being treated outpatient and seen here before by ID. Recent finding of fungus from the abscess aspirate on 05/05/18 Call Completed: Yes 05/18/18 09:27 Consult to Physician Executive [CONS] Routine Reason for SW Consult: SW already following* ECF patient 05/18/18 10:57 Consult to Interventional Radiology [CONS] Routine Consulting Provider: Radiology Interventional Cols Reason for Consult: tunneled PICC line removal. Drain for abscess reassessment due to CT scan showing abscess is still 9.2 x 5.1 Time Notified: 10:58 Call Completed: Yes 05/19/18 11:18 Consult to Interventional Radiology [CONS] Routine Consulting Provider: Radiology Interventional Cols Reason for Consult: Reevaluate KARAN drain Call Completed: Yes Consult to Nutrition [CONS] Routine Comment: Consulting Provider: NUTRITION Reason for Dietary Consult: PO Supplementation Discharging clinician: Renetta Farga Anticipated date of discharge: 05/20/18 - Constitutional Vitals: Temp Pulse Resp BP Pulse Ox 97.6 F 94 18 96/63 100 05/20/18 09:45 05/20/18 09:45 05/20/18 11:00 05/20/18 09:45 05/20/18 11:00 Exam: Gen: no acute distress, answering questions appropriately, ENT: no sinus tenderness, slightly dry mucous membranes CVS: RRR, midline sternotomy scar, 2+ pitting edema to BLE, no upper extremity edema. Pulm: Decreased breath sounds bilaterally with poor inspiratory effort, no rales or rhonchi. Pt is on 2 L O2 via nasal cannula. Abd: soft, mild tenderness to the RLQ but no rebound or guarding, KARAN drains in place with drainage Skin: warm dry and intact. Neuro: intention tremor, alert, answering questions appropriately Psych: cooperative with exam, affect appropriate - Patient Status Disposition: Transfer SNF Functional capacity at discharge: wheelchair bound Overall status at discharge: patient is progressing back to baseline - Discharge Instructions Follow Up With: [facility]ious [facility] [Provider Group] - 06/03/18 1:30 pm Ericka Louise CNP [Advanced Practice Nurse] - 06/03/18 11:00 am (hospital follow-up) Additional Instructions: Instructions: - KARAN drain X 2- cleanse around drains with soap and water and pat dry daily, apply split 4X4 gauze and tape to secure daily. Empty drains 2 times per day and records outputs (mls) and bring to follow-up appointment with Surgery on . - Please flush drains with normal saline 10ml every 8 hours. - Once output in KARAN dains is less than 10 ml/day for 2 days, repeat CT scan to see if collection has resolved. - recommend PT/OT evaluation - Will need weekly CBC, BUN/Cr, ESR, and CRP. - Will need weekly Powerglide care per protocol. - Will need to follow-up with surgery on 05/20 and infectious disease On 06/03/18 AT 1330. - Diet and Activity Activity: increase activity as tolerated Diet: advance to your usual diet - VTE Documentation of Mechanical Device: Intermittent pneumatic compression device <Renetta Fraga - Last Filed: 05/20/18 19:30> Orders not resulted at time of discharge: Pending orders 05/18/18 IR cvc repo tunnel wo prt/environmental engineer [IR] Routine 05/21/18 04:00 BMP [Basic Metabolic Panel] AM 0400 Complete Blood Count [HEME] AM 0400 Date of Encounter: 05/20/18 - Discharge Diagnosis (1) COPD (chronic obstructive pulmonary disease) Status: Chronic Qualifiers: COPD type: unspecified COPD Qualified Code(s): J44.9 - Chronic obstructive pulmonary disease, unspecified (2) HTN (hypertension) Status: Chronic Qualifiers: Hypertension type: essential hypertension Qualified Code(s): I10 - Essential (primary) hypertension (3) Diastolic CHF, acute on chronic Status: Acute (4) Sepsis Status: Resolved Qualifiers: Sepsis type: sepsis due to unspecified organism Qualified Code(s): A41.9 - Sepsis, unspecified organism (5) Infected hematoma following procedure Status: Acute (6) Chronic kidney disease, stage 3 Status: Chronic (7) Bacteremia Status: Acute (8) Acute and chronic respiratory failure with hypoxia Status: Resolved Hospital course: Ms. Barber is a 72 year old female - Time Spent with Patient Total time spent providing and/or coordinating discharge services: Date of admission: 05/12/18 14:40 Primary care physician: Lokesh Cooper MD Consults: 05/12/18 16:41 Consult to Invasive Line Access Team [CONS] Routine Reason for Consult: poor access Line Type: EPIV 05/13/18 08:46 Consult to Infectious Diseases [CONS] Routine Consulting Provider: Infectious Disease [place] Reason for Consult: history of pelvic abcess, was being treated outpatient and seen here before by ID. Recent finding of fungus from the abscess aspirate on 05/05/18 Call Completed: Yes 05/18/18 09:27 Consult to Physician Executive [CONS] Routine Reason for SW Consult: SW already following* ECF patient 05/18/18 10:57 Consult to Interventional Radiology [CONS] Routine Consulting Provider: Radiology Interventional Cols Reason for Consult: tunneled PICC line removal. Drain for abscess reassessment due to CT scan showing abscess is still 9.2 x 5.1 Time Notified: 10:58 Call Completed: Yes 05/19/18 11:18 Consult to Interventional Radiology [CONS] Routine Consulting Provider: Radiology Interventional Cols Reason for Consult: Reevaluate KARAN drain Call Completed: Yes Consult to Nutrition [CONS] Routine Comment: Consulting Provider: NUTRITION Reason for Dietary Consult: PO Supplementation - Constitutional Vitals: Temp Pulse Resp BP Pulse Ox 97.6 F 94 18 96/63 100 05/20/18 09:45 05/20/18 09:45 05/20/18 11:00 05/20/18 09:45 05/20/18 11:00 - Attending Attestation I have seen and examined this pt independently. I have discussed with resident physician Dr. Wheeler regarding the discharge and follow up plan. Agree with the documentation.
--- NOTE | 2018-05-20 12:10 | Physician Discharge Referral ---
ExtendedCare Referral Info Transfer To: [facility] Provider in Charge: Flakito Provider in Charge after Transfer: PCP Institutional Level of Care: Skilled - Diagnosis (1) Bacteremia Priority: Primary Status: Acute (2) Acute and chronic respiratory failure with hypoxia Priority: Secondary Status: Resolved (3) Hypomagnesemia Priority: Secondary Status: Resolved (4) Chronic kidney disease, stage IV (severe) Priority: Secondary Status: Chronic (5) Hypokalemia Priority: Secondary Status: Acute (6) Congestive heart failure Priority: Secondary Status: Chronic (7) Infected hematoma following procedure Priority: Secondary Status: Acute (8) Thrombocytopenia Priority: Secondary Status: Acute - Transfer Medications Prescriptions: cefTRIAXone [Rocephin] 2,000 mg IVPB DAILY 28 Days #28 vial Daptomycin [Cubicin Rf] 640 mg IV DAILY 25 Days #30 vial metroNIDAZOLE [Flagyl] 500 mg PO TID 14 Days #42 tablet Home Medications: Cyclosporine [Restasis] 1 drop BOTH EYES BID 04/30/15 [History] Potassium Chloride 20 meq PO DAILY 06/19/16 [History] Calcitriol [Rocaltrol] 0.25 mcg PO DAILY 03/20/17 [History] Albuterol Sulfate [Albuterol Inhaler] 2 puff IH Q4HR PRN 08/27/17 [History] Atorvastatin Calcium [Lipitor] 20 mg PO HS 10/06/17 [History] Esomeprazole Magnesium [Nexium] 40 mg PO DAILY 10/06/17 [History] Aspirin Enteric Coated [Aspirin EC] 81 mg PO DAILY tablet. 11/02/17 [Rx] Amiodarone [Cordarone] 200 mg PO DAILY 11/28/17 [History] Docusate [Colace] 100 mg PO BID PRN capsule 12/02/17 [Rx] Fluticasone Propionate Nasal [Flonase] 50 mcg NS DAILY bottle 12/02/17 [Rx] GuaiFENesin Liq [Robitussin Liq] 200 mg PO Q4HR PRN 02/11/18 [History] Furosemide [Lasix] 40 mg PO DAILY 03/09/18 [History] Quetiapine Fumarate [Seroquel] 50 mg PO HS 03/09/18 [History] Fluticasone/Vilanterol [Breo Ellipta 100-25 Mcg INH] 1 puff IH DAILY 03/29/18 [ History] Loperamide [Imodium] 2 mg PO Q6H PRN 03/29/18 [History] Ondansetron [Zofran] 8 mg PO Q6H PRN 03/29/18 [History] Acetaminophen [Tylenol] 650 mg PO Q4HR PRN #60 tablet 04/29/18 [Rx] Bisacodyl [Dulcolax] 10 mg RC DAILY PRN supp.rect 04/29/18 [Rx] Calcium Carbonate [Tums] 1,000 mg PO Q4HR PRN #30 tab.chew 04/29/18 [Rx] Ferrous Sulfate 325 mg PO BIDWM #60 tablet 04/29/18 [Rx] Lactobacillus [Culturelle] 1 each PO BID #60 cap.sprink 04/29/18 [Rx] Loratadine [Claritin] 10 mg PO Q48H #0 04/29/18 [Rx] Metoprolol [Lopressor] 12.5 mg PO BID #30 tablet 04/29/18 [Rx] 0.9 % Sodium Chloride [Normal Saline Flush] 10 ml IVP Q8H syringe 05/20/18 [Rx] Daptomycin [Cubicin Rf] 640 mg IV DAILY 25 Days #30 vial 05/20/18 [Rx] cefTRIAXone [Rocephin] 2,000 mg IVPB DAILY 28 Days #28 vial 05/20/18 [Rx] metroNIDAZOLE [Flagyl] 500 mg PO TID 14 Days #42 tablet 05/20/18 [Rx] Allergies/Adverse Reactions: 3 Allergy/AdvReac Type Severity Reaction Status Date / Time ciprofloxacin [From Cipro] Allergy Hives Verified 03/29/18 21:41 meperidine [From Demerol] AdvReac Vomiting Verified 03/29/18 21:41 - Respiratory Orders Oxygen / L per min (2L) Smoking Cessation: Smoking cessation has been advised. For more information, call the [employer] Tobacco Quit Line at 9-461-CPEC-NOW. - Ancillary Orders May use pressure relief devices daily prn, May go on YUN w/family/respon alliance party w /meds at nurse discretion PRN, May consult with Dentist, Personal Care Assistant, Service Desk Specialist PRN - Advance Directives Code Status: Full Code - Mobility Orders Chair - Rehabiliation Orders Rehab Potential: Fair Rehab Orders: ROM Exercises, Evaluation for Physical Therapy, Evaluation for Occupational Therapy - Treatments Skin tear care topically daily PRN per policy, May check for fecal impaction rectally daily PRN, Fleet enema rectally every other day PRN cleansing purposes - Diet Orders Regular CERTIFICATION: I certify that the transfer of the above named patient to an Extended Care Facility is necessary for the continuing treatment of the diagnosis listed. The above information is true and accurate reflection of patient's current condition. Confidential - Redisclosure prohibited without a patient's written consent.
[2018-05-20] MEDS: SODIUM CHLORIDE 0.9% IVPB SCH (13:21)
[2018-05-20] MEDS: DAPTOMYCIN IVPB SCH (13:21)
--- NOTE | 2018-05-20 13:41 | Infectious Disease Progress No ---
Date of Encounter: 05/20/18 Time of Encounter: 09:20 - Assessment and Plan (1) Bacteremia Current Visit: Yes Status: Acute Causative organism: VRE. Source: Unclear. The patient does have a pelvic fluid collection that appears to be decreased in size from previous exams. Previous cultures did grow out enterococcus faecium, which is typically Vanc-resistant, although her strain tested Vanc-susceptible. She also had a tunneled PICC line which is also a potential source. Blood cultures obtained at the [facility] are +2 out of 2 sets for VRE. The specimen is labeled as being drawn from her PICC. I am unsure if there were any peripheral cultures drawn. Repeat blood cultures obtained here 3 sets (2 peripheral and one from her tunneled PICC line) are negative. No endocarditis stigmata noted on exam. The patient does have a prosthetic heart valve. Tunneled PICC line removed 05/18/18. At this time we will defer TTE/RICHARD. She has no endocarditis stigmata and we will be treating for 4-6 weeks with IV antibiotics regardless. Continue Daptomycin 6mg/kg IV daily. Check baseline CK level.--> 20. Duration of treatment depends on the clinical picture, but likely an additional 4-6 weeks. Monitor renal function for drug toxicity and dosage adjust antibiotics. (2) Infected hematoma following procedure Current Visit: No Status: Acute Causative organism: S. epi, E. coli x 2, and Enterococcus faecium. Additional culture obtained with new drain placement grew E. coli. Aspergillus also came back on the culture after the patient was discharged, but this is likely a contaminant as we recently had a known lab contamination. CT scan completed 03/29/2018 showed moderate volume of fluid in the pelvis and along the mesentery with subacute blood. Repeat CT of the abdomen and pelvis completed 04/01/18 showed a complex fluid collection within the pelvis, here unchanged in size and the density continued to decrease making the finding concerning for an organizing hematoma, although there was suggestion of possible capsule formation, and the possibility of an abscess should be considered. She also had some increasing right-sided hydronephrosis, but presumably from compression of the distal right ureteral compression. Status post CT-guided placement of abdominal abscess drainage catheter on by interventional radiology. No cultures were obtained at the time of catheter placement, but pathology was negative for malignancy. Culture obtained on 04/10/18 positive for and or coccus fascia, staph epi, and 2 strains of Escherichia coli. Repeat CT scan on 04/12/18 showed a large complex appearing fluid collection likely representing an abscess measuring approximately 17 x 11 x 8 cm in size and appears somewhat decreased in size when compared to the previous examination , however a large amount of fluid remained. Additional repeat CAT scan completed 04/19/18 showed complex large abscess in the lower abdomen and pelvis, unchanged in appearance and only slightly decreased in the size of the large abscess compared to prior examination, possibly secondary to multi loculation with a large amount of fluid remaining in the abscess. New drain placed in the abscess 04/19/18. Repeat CT scan 04/26/18 with PO contrast shows minimal improvement in the intra- abdominal abscess, likely secondary to multiple loculations. No surgical recommendations from the surgery team at that time. Repeat CT of the abdomen and pelvis showed that the pelvic abscess had decreased in size, but was still there. Recommend surgery to re-evaluate. Not sure if surgical intervention vs. IR to replace drains would be indicated. Continue Daptomycin 6mg/kg IV daily as above. Continue Rocephin 2 grams IV daily. Continue Flagyl 500mg PO TID. Duration of treatment depends on the clinical picture. She has completed 4 weeks of IV antibiotics since the last drain was placed but will likely need an additional 4 weeks of Dapto + Rocephin + flagyl. Will plan to repeat CT scan in 4 weeks. Monitor renal function and for drug toxicity and dose adjust antibiotics. The patient has a Powerglide which we can use for now for her IV antibiotics on discharge in order to avoid placing another tunneled PICC line. Will need weekly CBC, BUN/Cr, ESR, and CRP. Will need weekly Powerglide care per protocol. Follow up with ID 06/03/18 at 1330. (3) Altered mental status Current Visit: Yes Status: Resolved Etiology unclear. Based on the documentation, the patient had blood in her mouth and was incontinent of stool. Not sure if she had a seizure or if this was some other issue. CT of the head was negative. Altered mental status seems to have resolved. Continue to monitor closely. Qualifiers: Altered mental status type: unspecified Qualified Code(s): R41.82 - Altered mental status, unspecified (4) Anemia Current Visit: No Status: Acute Hemoglobin stable around 9. Further workup and management per the primary team. Qualifiers: Anemia type: unspecified type Qualified Code(s): D64.9 - Anemia, unspecified (5) Acute respiratory failure with hypoxia Current Visit: No Status: Resolved Etiology unclear. Intubated in the ER, but extubated 05/13/18. Resolved. (6) Hypokalemia Current Visit: Yes Status: Resolved Replacement per the primary team. (7) Atrial fibrillation Current Visit: Yes Status: Chronic Qualifiers: Atrial fibrillation type: persistent Qualified Code(s): I48.1 - Persistent atrial fibrillation (8) HLD (hyperlipidemia) Current Visit: Yes Status: Acute Qualifiers: Hyperlipidemia type: unspecified Qualified Code(s): E78.5 - Hyperlipidemia , unspecified (9) H/O prosthetic heart valve Current Visit: No Status: Chronic (10) Chronic kidney disease, stage 3 Current Visit: Yes Status: Chronic Continue to trend and dose-adjust antibiotics. (11) GERD (gastroesophageal reflux disease) Current Visit: Yes Status: Acute Qualifiers: Esophagitis presence: esophagitis presence not specified Qualified Code(s) : K21.9 - Gastro-esophageal reflux disease without esophagitis (12) COPD (chronic obstructive pulmonary disease) Current Visit: No Status: Chronic Qualifiers: COPD type: unspecified COPD Qualified Code(s): J44.9 - Chronic obstructive pulmonary disease, unspecified - Subjective Interval history: Patient seen and examined. No acute events noted overnight. Patient sitting up in bed with family at bedside. States overall she feels well. Reports intermittent chills, but denies fevers or rigors. Denies chest pain or cough or shortness of breath. Denies vomiting or diarrhea. Reports some nausea with breakfast this morning, but none currently Last BM was yesterday. She continues to report right groin pain and lower abdomen pain. Denies oral thrush. Infect Dis PN-Objective Data - Labs CBC & Chem 7: 05/18/18 12:45 05/19/18 04:53 Labs: Laboratory Results - last 24 hr 05/19/18 11:43 POC Glucose 69 L Cultures: Cultures 05/13/18 13:05 Blood Culture - Final Peripheral Venipuncture No growth. Final report. 05/13/18 13:05 Blood Culture - Final Peripheral Venipuncture No growth. Final report. 05/13/18 13:05 Blood Culture - Final Central Venous Catheter No growth. Final report. Exam - Constitutional Vitals: Temp Pulse Resp BP Pulse Ox 97.6 F 94 18 96/63 100 05/20/18 09:45 05/20/18 09:45 05/20/18 11:00 05/20/18 09:45 05/20/18 11:00 General appearance: cooperative, no acute distress, obese - Head Head exam: Present: atraumatic, normal inspection, normocephalic - Eye Additional comments: Conjunctiva clear bilaterally. - ENT ENT exam: Present: mucous membranes moist - Neck Neck exam: Present: normal inspection - Respiratory Respiratory exam: Present: CTAB. Absent: rales, respiratory distress, rhonchi, wheezes - Cardiovascular Cardiovascular exam: Present: RRR, +S1, +S2 - GI/Abdominal GI/Abdominal exam: Present: distended (obese), normal bowel sounds, soft, tenderness (RLQ, LLQ) Additional comments: Parks catheter noted to be draining clear yellow urine. KARAN drain x 2 noted to the lower middle and LLQ abdomen with dark brown purulent drainage. - Extremities Exam Extremities exam: Present: pedal edema (1+ BLE). Absent: joint swelling, tenderness - Neurological Exam Neurological exam: Present: alert, oriented X3, no focal deficits - Psychiatric Psychiatric exam: Present: normal affect, normal mood - Skin Skin exam: Present: dry, intact, normal color, warm - VTE Documentation of Mechanical Device: Intermittent pneumatic compression device Consult Discharge Plan - Plan Additional Instructions: Instructions: - KARAN drain X 2- cleanse around drains with soap and water and pat dry daily, apply split 4X4 gauze and tape to secure daily. Empty drains 2 times per day and records outputs (mls) and bring to follow-up appointment with Surgery on . - Please flush drains with normal saline 10ml every 8 hours. - Once output in KARAN dains is less than 10 ml/day for 2 days, repeat CT scan to see if collection has resolved. - recommend PT/OT evaluation - Will need to follow-up with surgery on 05/20 and infectious disease in 4 weeks Referrals: [facility] [Provider Group] - 06/03/18 1:30 pm Lokesh Cooper MD [Primary Care Provider] - Ericka Louise CNP [Advanced Practice Nurse] - 06/03/18 11:00 am (hospital follow-up) Prescriptions: cefTRIAXone [Rocephin] 2,000 mg IVPB DAILY 28 Days #28 vial Daptomycin [Cubicin Rf] 640 mg IV DAILY 25 Days #30 vial metroNIDAZOLE [Flagyl] 500 mg PO TID 14 Days #42 tablet - Attending Attestation I examined this patient and my medical decision-making was reviewed with the Resident Physician. I agree with the documented findings, disposition and treatment plan as described except to the extent set forth below.
[2018-05-21] MEDS: Artificial Tears SOLN 15 ML BOTTLE BOTH EYES SCH ×5 (01:59→16:05)
[2018-05-21] MEDS: Acetaminophen 325 MG TABLET PO PRN ×2 (04:53→16:13)
[2018-05-21 06:29] LABS: Basophils % 0.2 %; Hemoglobin 9.1 g/dL (11.5-15.4); Immature Granulocytes % 0.5 % (0-4); Mean Corpuscular Volume 92.5 fL (83.0-100.0)
[2018-05-21 06:30] LABS: Eosinophils # 0.1 K/mcL (0.0-0.6); Eosinophils % 1.9 %; Hematocrit 28.5 % (35.3-44.9); Immature Platelets 3.4 % (1.1-6.1); Lymphocytes # 0.9 K/mcL (0.6-4.6); Lymphocytes % 20.5 %; Mean Corpuscular HGB Conc 31.9 g/dL (31.6-35.5); Mean Corpuscular Hemoglobin 29.5 pg (28.0-33.3); Mean Platelet Volume 10.2 fL (9.4-12.4); Monocytes # 0.3 K/mcL (0.0-1.3); Monocytes % 6.4 %; Platelet Count 115 K/mcL (140-400); Red Blood Count 3.08 M/mcL (3.82-4.97); Red Cell Distribution Width 17.5 % (11.5-14.5); Segmented Neutrophils % 70.5 %
[2018-05-21 06:47] LABS: Calcium 8.5 mg/dL (8.6-10.3); Potassium 3.2 mEq/L (3.5-5.1)
[2018-05-21] MEDS: Ondansetron 4 MG/2 ML VIAL IVP PRN (08:25)
[2018-05-21] MEDS: cefTRIAXone 2,000 MG in 0.9 % Sodium Chloride Mini Bag 100 ML IVPB SCH (09:38)
[2018-05-21] MEDS: Loratadine 10 MG TABLET PO SCH (09:41)
[2018-05-21] MEDS: *HR* Amiodarone 200 MG TABLET PO SCH (09:41)
[2018-05-21] MEDS: Furosemide 40 MG TABLET PO SCH (09:42)
[2018-05-21] MEDS: Lactobacillus 1 EACH CAP.SPRINK PO SCH (09:42)
[2018-05-21] MEDS: metroNIDAZOLE 500 MG TABLET PO SCH ×2 (09:42→16:05)
--- NOTE | 2018-05-21 10:25 | Infectious Disease Progress No ---
Date of Encounter: 05/21/18 Time of Encounter: 09:25 - Assessment and Plan (1) Bacteremia Current Visit: Yes Status: Acute Causative organism: VRE. Source: Unclear. The patient does have a pelvic fluid collection that appears to be decreased in size from previous exams. Previous cultures did grow out enterococcus faecium, which is typically Vanc-resistant, although her strain tested Vanc-susceptible. She also had a tunneled PICC line which is also a potential source. Blood cultures obtained at the [facility] are +2 out of 2 sets for VRE. The specimen is labeled as being drawn from her PICC. I am unsure if there were any peripheral cultures drawn. Repeat blood cultures obtained here 3 sets (2 peripheral and one from her tunneled PICC line) are negative. No endocarditis stigmata noted on exam. The patient does have a prosthetic heart valve. Tunneled PICC line removed 05/18/18. At this time we will defer TTE/RICHARD. She has no endocarditis stigmata and we will be treating for 4-6 weeks with IV antibiotics regardless. Continue Daptomycin 6mg/kg IV, will switch to Q48H dosing for CrCl ~22. Discussed with Mandi Lopez. Check baseline CK level.--> 20. Re-check CK level now. Duration of treatment depends on the clinical picture, but likely an additional 4-6 weeks. Monitor renal function for drug toxicity and dosage adjust antibiotics. (2) Infected hematoma following procedure Current Visit: No Status: Acute Causative organism: S. epi, E. coli x 2, and Enterococcus faecium. Additional culture obtained with new drain placement grew E. coli. Aspergillus also came back on the culture after the patient was discharged, but this is likely a contaminant as we recently had a known lab contamination. CT scan completed 03/29/2018 showed moderate volume of fluid in the pelvis and along the mesentery with subacute blood. Repeat CT of the abdomen and pelvis completed 04/01/18 showed a complex fluid collection within the pelvis, here unchanged in size and the density continued to decrease making the finding concerning for an organizing hematoma, although there was suggestion of possible capsule formation, and the possibility of an abscess should be considered. She also had some increasing right-sided hydronephrosis, but presumably from compression of the distal right ureteral compression. Status post CT-guided placement of abdominal abscess drainage catheter on by interventional radiology. No cultures were obtained at the time of catheter placement, but pathology was negative for malignancy. Culture obtained on 04/10/18 positive for and or coccus fascia, staph epi, and 2 strains of Escherichia coli. Repeat CT scan on 04/12/18 showed a large complex appearing fluid collection likely representing an abscess measuring approximately 17 x 11 x 8 cm in size and appears somewhat decreased in size when compared to the previous examination , however a large amount of fluid remained. Additional repeat CAT scan completed 04/19/18 showed complex large abscess in the lower abdomen and pelvis, unchanged in appearance and only slightly decreased in the size of the large abscess compared to prior examination, possibly secondary to multi loculation with a large amount of fluid remaining in the abscess. New drain placed in the abscess 04/19/18. Repeat CT scan 04/26/18 with PO contrast shows minimal improvement in the intra- abdominal abscess, likely secondary to multiple loculations. No surgical recommendations from the surgery team at that time. Repeat CT of the abdomen and pelvis showed that the pelvic abscess had decreased in size, but was still there. Recommend surgery to re-evaluate. Not sure if surgical intervention vs. IR to replace drains would be indicated. Continue Daptomycin 6mg/kg IV daily as above. Continue Rocephin 2 grams IV daily. Continue Flagyl 500mg PO TID. Duration of treatment depends on the clinical picture. She has completed 4 weeks of IV antibiotics since the last drain was placed but will likely need an additional 4 weeks of Dapto + Rocephin + flagyl. Will plan to repeat CT scan in 4 weeks. Monitor renal function and for drug toxicity and dose adjust antibiotics. The patient has a Powerglide which we can use for now for her IV antibiotics on discharge in order to avoid placing another tunneled PICC line. Will need weekly CBC, BUN/Cr, ESR, and CRP. Will need weekly Powerglide care per protocol. Follow up with ID 06/03/18 at 1330. (3) Altered mental status Current Visit: Yes Status: Resolved Etiology unclear. Based on the documentation, the patient had blood in her mouth and was incontinent of stool. Not sure if she had a seizure or if this was some other issue. CT of the head was negative. Altered mental status seems to have resolved. Continue to monitor closely. Qualifiers: Altered mental status type: unspecified Qualified Code(s): R41.82 - Altered mental status, unspecified (4) Anemia Current Visit: No Status: Acute Hemoglobin stable around 9. Further workup and management per the primary team. Qualifiers: Anemia type: unspecified type Qualified Code(s): D64.9 - Anemia, unspecified (5) Hypokalemia Current Visit: Yes Status: Resolved Replacement per the primary team. (6) Atrial fibrillation Current Visit: Yes Status: Chronic Qualifiers: Atrial fibrillation type: persistent Qualified Code(s): I48.1 - Persistent atrial fibrillation (7) HLD (hyperlipidemia) Current Visit: Yes Status: Acute Qualifiers: Hyperlipidemia type: unspecified Qualified Code(s): E78.5 - Hyperlipidemia , unspecified (8) H/O prosthetic heart valve Current Visit: No Status: Chronic (9) Chronic kidney disease, stage 3 Current Visit: Yes Status: Chronic Continue to trend and dose-adjust antibiotics. (10) GERD (gastroesophageal reflux disease) Current Visit: Yes Status: Acute Qualifiers: Esophagitis presence: esophagitis presence not specified Qualified Code(s) : K21.9 - Gastro-esophageal reflux disease without esophagitis (11) COPD (chronic obstructive pulmonary disease) Current Visit: No Status: Chronic Qualifiers: COPD type: unspecified COPD Qualified Code(s): J44.9 - Chronic obstructive pulmonary disease, unspecified - Subjective Interval history: Patient seen and examined. No acute events noted overnight. Patient sitting up in bed with nursing at bedside, eating breakfast. States overall she feels well. Reports intermittent chills, but denies fevers or rigors. Denies chest pain or cough or shortness of breath. Denies vomiting or diarrhea. Reports some nausea at this time. Last BM was yesterday. She continues to report right groin pain and lower abdomen pain. Denies oral thrush. Infect Dis PN-Objective Data - Labs CBC & Chem 7: 05/21/18 06:14 05/21/18 06:14 Labs: Laboratory Results - last 24 hr 05/21/18 05/21/18 06:14 06:14 WBC 4.2 L RBC 3.08 L Hgb 9.1 L Hct 28.5 L MCV 92.5 MCH 29.5 MCHC 31.9 RDW 17.5 H Plt Count 115 L MPV 10.2 Immature Gran % 0.5 Seg Neutrophils % 70.5 Lymphocytes % 20.5 Monocytes % 6.4 Eosinophils % 1.9 Basophils % 0.2 Neutrophils # 3.0 Lymphocytes # 0.9 Monocytes # 0.3 Eosinophils # 0.1 Basophils # 0.0 Immature Plt Fraction 3.4 Sodium 135 L Potassium 3.2 L Chloride 89 L Carbon Dioxide 35 H BUN 12 Creatinine 1.42 H Est GFR ( Amer) 44 L Est GFR (Non-Af Amer) 36 L BUN/Creatinine Ratio 8 Glucose 70 Calculated Osmolality 278 L Calcium 8.5 L Cultures: Cultures 05/13/18 13:05 Blood Culture - Final Peripheral Venipuncture No growth. Final report. 05/13/18 13:05 Blood Culture - Final Peripheral Venipuncture No growth. Final report. 05/13/18 13:05 Blood Culture - Final Central Venous Catheter No growth. Final report. Exam - Constitutional Vitals: Temp Pulse Resp BP Pulse Ox 97.7 F 98 12 103/67 94 05/21/18 08:00 05/21/18 08:00 05/21/18 08:00 05/21/18 07:29 05/21/18 08:00 General appearance: cooperative, no acute distress, obese - Head Head exam: Present: atraumatic, normal inspection, normocephalic - Eye Eye exam: Present: normal appearance Additional comments: Conjunctiva clear bilaterally. - ENT ENT exam: Present: mucous membranes moist - Neck Neck exam: Present: normal inspection - Respiratory Respiratory exam: Present: CTAB. Absent: rales, respiratory distress, rhonchi, wheezes - Cardiovascular Cardiovascular exam: Present: RRR, +S1, +S2 - GI/Abdominal GI/Abdominal exam: Present: distended (obese), normal bowel sounds, soft, tenderness (RLQ, LLQ) Additional comments: KARAN drain to the middle lower abdomen and LLQ draining small amount of dark brown purulent drainage. Parks catheter noted to be draining clear yellow urine. - Extremities Exam Extremities exam: Present: pedal edema (1+ BLE). Absent: joint swelling, tenderness - Neurological Exam Neurological exam: Present: alert, oriented X3, no focal deficits - Psychiatric Psychiatric exam: Present: normal affect, normal mood - Skin Skin exam: Present: dry, intact, normal color, warm - VTE Documentation of Mechanical Device: Intermittent pneumatic compression device Consult Discharge Plan - Plan Additional Instructions: Instructions: - KARAN drain X 2- cleanse around drains with soap and water and pat dry daily, apply split 4X4 gauze and tape to secure daily. Empty drains 2 times per day and records outputs (mls) and bring to follow-up appointment with Surgery on . - Please flush drains with normal saline 10ml every 8 hours. - Once output in KARAN dains is less than 10 ml/day for 2 days, repeat CT scan to see if collection has resolved. - recommend PT/OT evaluation - Will need weekly CBC, BUN/Cr, ESR, and CRP. - Will need weekly Powerglide care per protocol. - Will need to follow-up with surgery on 05/20 and infectious disease On 06/03/18 AT 1330. Referrals: [facility] [Provider Group] - 06/03/18 1:30 pm Ericka Louise CNP [Advanced Practice Nurse] - 06/03/18 11:00 am (hospital follow-up) Prescriptions: cefTRIAXone [Rocephin] 2,000 mg IVPB DAILY 28 Days #28 vial DAPTOmycin [Cubicin] 640 mg IVPB Q48H 28 Days #14 vial metroNIDAZOLE [Flagyl] 500 mg PO TID 14 Days #42 tablet - Attending Attestation I examined this patient and my medical decision-making was reviewed with Monica Waller CNP. I agree with the documented findings, disposition and treatment plan as described except to the extent set forth below.
[2018-05-21] MEDS: Budesonide/Formoterol 160/4.5 1 PUFF INH IH SCH ×2 (10:37→20:03)
[2018-05-21] MEDS ORDERED: Saline Nasal Spray 44 ML BOTTLE NS PRN (11:39)
--- NOTE | 2018-05-21 15:38 | Internal Med Progress Note ---
Hospitalist Progress Note - Encounter Date of Encounter: 05/21/18 Time of Encounter: 10:00 - Subjective Interval History: Janiya Barber is a 72 yo F with a PMHx of arthritis, asthma, atrial fibrillation, CHF, COPD, GERD, hyperlipidemia, hypertension, osteoporosis, renal disease that was admitted initially for respiratory failure at [facility] rehab facility. Pt was at the rehab facility following an appendectomy that was complicated with a hematoma that became infected. Pt was extubated on 05/13/18 and states that she has had some trouble speaking and has had sore throat since that time. Yesterday, patient was unable to be discharged to the senior living due to coverage. The patient is doing about the same today. She is still having some nausea but is it well controlled with the zofran. She has had 3 watery stools today which is new. - Exam Vitals: Temp Pulse Resp BP Pulse Ox 97.6 F 95 14 117/78 94 05/21/18 13:55 05/21/18 13:55 05/21/18 13:55 05/21/18 13:55 05/21/18 13:55 Exam: Gen: alert, NAD, sitting up in bed ENT: no sinus tenderness, slightly dry mucous membranes CVS: 2+ DP pulses bilat, slightly tachycardic with regular rhythm, midline sternotomy scar, 2+ pitting edema to BLE, no upper extremity edema. Pulm: CTAB with full breath sounds, 2:1 expiratory phase, no rales or rhonchi. Pt is on 2 L O2 via nasal cannula. Abd: soft, mild tenderness to the RLQ but no rebound or guarding, KARAN drains in place Skin: warm dry and intact. Neuro: alert, answering questions appropriately Psych: cooperative with exam, affect appropriate - Assessment and Plan (1) Diarrhea Current Visit: Yes Status: Acute Assessment and Plan: Started today. High risk for c-diff due to antibiotic use and senior living resident. Will hold of discharge and check for c-diff. Patient already on Flagyl. (2) Bacteremia Current Visit: Yes Status: Acute Assessment and Plan: 2/2 to enterococcus (e. faecium), unclear source, likely 2/2 to pelvic fluid but could be due to PICC line as culture positive from [place] source was labeled PICC line per ID. Zosyn was d/c as anerobic coverage was given for 4 weeks, therefore switched to Rocephin. Plan: - KARAN drain X 2- cleanse around drains with soap and water and pat dry daily, apply split 4X4 gauze and tape to secure daily. Empty drains 2 times per day and records outputs (mls) and bring to follow-up appointment with Surgery on . - Please flush drains with normal saline 10ml every 8 hours as drain became clogged during the hospital stay. - ID following, due to Enterocococus growing on PICC line the PICC was removed. - Once output in KARAN dains is less than 10 ml/day for 2 days, repeat CT scan to see if collection has resolved. - blood cultures negative Will need to follow-up with surgery on 05/20 and infectious disease in 4 weeks. - will need to continue Daptomycin and Rocephin for another 28 days. Flagyl will need a total of 2 weeks for a total of 6 weeks of anerobic coverage. - Will need weekly CBC, BUN/Cr, ESR, and CRP. - Will need weekly Powerglide care per protocol. - Follow up with ID 06/03/18 at 1330. - Antibiotics: continue Flagyl day 2, Daptomycin day 6 (started on 05/15) and started Rocephin day 3(started 05/18) s/p 1 dose vancomycin 05/14, Zosyn 1 month per ID note. (3) Acute and chronic respiratory failure with hypoxia Current Visit: Yes Status: Resolved Assessment and Plan: Pt is s/p intubation and currently on 2L NC and breathing comfortably. (4) Hypomagnesemia Current Visit: Yes Status: Resolved (5) Chronic kidney disease, stage IV (severe) Current Visit: No Status: Chronic Assessment and Plan: Creatinine = 1.42, will continue home lasix 40 mg PO (6) Hypokalemia Current Visit: No Status: Acute Assessment and Plan: k=3.2 but currently taking KCl 20meq BID. (7) Congestive heart failure Current Visit: No Status: Chronic Assessment and Plan: stable. pedal edema. (8) Infected hematoma following procedure Current Visit: No Status: Acute Assessment and Plan: 2/2 to enterococcus (e. faecium), unclear source, likely 2/2 to pelvic fluid but could be due to PICC line as culture positive from [place] source was labeled PICC line per ID. Will remove today. Zosyn was d/c as anerobic coverage was given for 4 weeks, therefore switched to Rocephin. Plan: - ID following, due to Enterocococus growing on PICC line the PICC was removed yesterday by IR. - blood cultures negative here - consider RICHARD, depending upon strain - Antibiotics: continue Daptomycin day 5(started on 05/15) and started Rocephin day 2 (started 05/18) s/p 1 dose vancomycin 05/14, Zosyn 1 month per ID note. (9) Thrombocytopenia Current Visit: Yes Status: Acute Assessment and Plan: stable. DVT Prophylaxis: ICDS - Time Spent with Patient Total time spent is greater than 50% in coordination of care (as documented) at patient's floor/unit and/or counseling patient: Internal Medicine: Result - Labs CBC & Chem 7: 05/21/18 06:14 05/21/18 06:14 Labs: Short CBC 05/21/18 Range/Units 06:14 WBC 4.2 L (4.3-11.1) K/mcL Hgb 9.1 L (11.5-15.4) g/dL Hct 28.5 L (35.3-44.9) % Plt Count 115 L (140-400) K/mcL Neutrophils # 3.0 (1.6-8.9) K/mcL BMP 05/21/18 06:14 Sodium 135 L Potassium 3.2 L Chloride 89 L Carbon Dioxide 35 H BUN 12 Creatinine 1.42 H Glucose 70 Calcium 8.5 L - ABG Interpretation ABG results: ABG ABG pH 7.38 pH Units (7.32-7.45) 05/13/18 05:11 ABG pCO2 40 mmHg (35-45) 05/13/18 05:11 ABG pO2 122 mmHg (85-104) H 05/13/18 05:11 ABG O2 Saturation 99 % (95-98) H 05/13/18 05:11 PT/INR, D-dimer PT 14.9 Seconds (9.4-12.1) H 05/18/18 12:45 - Impressions Impressions Insertion Tunneled Catheter 05/18/18 00:00 IMPRESSION: Successful tunneled right internal jugular catheter D/ / Jf Toledo MD / Jf Toledo MD Interpreting Provider: Jf Toledo MD - VTE Documentation of Mechanical Device: Intermittent pneumatic compression device Consult Discharge Plan - Plan Additional Instructions: Instructions: - KARAN drain X 2- cleanse around drains with soap and water and pat dry daily, apply split 4X4 gauze and tape to secure daily. Empty drains 2 times per day and records outputs (mls) and bring to follow-up appointment with Surgery on . - Please flush drains with normal saline 10ml every 8 hours. - Once output in KARAN dains is less than 10 ml/day for 2 days, repeat CT scan to see if collection has resolved. - recommend PT/OT evaluation - Will need weekly CBC, BUN/Cr, ESR, and CRP. - Will need weekly Powerglide care per protocol. - Will need to follow-up with surgery on 05/20 and infectious disease On 06/03/18 AT 1330. Referrals: [facility] [Provider Group] - 06/03/18 1:30 pm Ericka Luoise CNP [Advanced Practice Nurse] - 06/03/18 11:00 am (hospital follow-up) Prescriptions: cefTRIAXone [Rocephin] 2,000 mg IVPB DAILY 28 Days #28 vial DAPTOmycin [Cubicin] 640 mg IVPB Q48H 28 Days #14 vial metroNIDAZOLE [Flagyl] 500 mg PO TID 14 Days #42 tablet (1) Diarrhea Qualifiers: Diarrhea type: unspecified type Qualified Code(s): R19.7 - Diarrhea, unspecified (7) Congestive heart failure Qualifiers: Heart failure type: diastolic Heart failure chronicity: chronic Qualified Code(s): I50.32 - Chronic diastolic (congestive) heart failure
--- NOTE | 2018-05-21 16:57 | Event Note ---
Date of Encounter: 05/21/18 Time of Encounter: 10:00 I have seen and examined this pt independently. I have discussed with resident physician Dr Wheeler regarding the management plan. Refer her note for details. Pt developped diarrhea. C Diff test sent, result pending, will hold discharge until there is the negative C diff test results.
[2018-05-21 17:28] VITALS: BP 108/58
--- NOTE | 2018-05-21 18:30 | Event Note ---
Date of Encounter: 05/21/18 Time of Encounter: 18:20 Pt's diarrhea stopped. No stool sample can be collected. Pt denies further fever. No increased WBC. Mild abd pain and nausea about same as previously, probably due to intra-abd hematoma. As diarrhea stopped, will go ahead to discharge pt to ECF as scheduled. Pt is on abx for a long time, has risk for C diff colitis, if she has diarrhea again in ECF, can check C diff test there. Will cont probiotics to prevent C diff. D/W pt, she agrees with the plan.
[2018-05-22] MEDS ORDERED: SODIUM CHLORIDE 0.9% IVPB SCH (12:00)
[2018-05-22] MEDS ORDERED: DAPTOMYCIN IVPB SCH (12:00)
--- NOTE | 2018-05-26 07:42 | EEG/EMG/Oth Biometrics Report ---
EEG Procedure Report Date of procedure: 05/26/18 EEG Procedure: Routine EEG Procedure Note: This is a report of a 21 channel bipolar and referential montage EEG. The posterior dominant rhythm consists of mixed alpha and beta frequencies. This rhythm is not reactive to eye opening. Hyperventilation is not performed in recording. There is no sleep activity identified during the study. Photic stimulations performed and does not produce a driving response. The EKG rhythm strip reveals normal sinus rhythm at 96 bpm. Impressions: This EEG recording is within normal limits. There is no evidence of epileptiform activity identified during the study. Comment: Beta frequencies are indeed recognized as a normal variant. However may also be reflective of a host of metabolic conditions, anxiety, and medication effect. A normal EEG does not preclude a diagnosis of seizure or epilepsy. If the clinical suspicion for seizure activity is high, serial EEGs or perhaps a prolonged recording may increase the yield. Correlate clinically.
== END 2018-05-21 20:00 | DRG 871 ==
LOC: ICNU 14:40 → SUATTDRO 14:40 → 3ANU 05-14 14:59
PROVIDERS: ADMIT Internal Medicine Pulmonary Disease; ATTEND Internal Medicine

== ENCOUNTER 2018-06-17 07:03 | Inpatient (IN) ==
[2018-06-17] MEDS ORDERED: Acetaminophen 325 MG TABLET PO PRN (13:33)
[2018-06-17] MEDS ORDERED: Bisacodyl 10 MG RECTAL SUPPOSITORY RC PRN (13:33)
[2018-06-17] MEDS ORDERED: Naloxone 0.4 MG/ML INJ IVP PRN (13:40)
--- NOTE | 2018-06-17 13:43 | Internal Med History&Physical ---
Date of Encounter: 06/17/18 Time of Encounter: 13:40 Internal Medicine - H&P: HPI Chief complaint: Difficulty breathing Admitted From: Hospital to Hospital Transfer Plans for Post Hospital Care: Transfer [facility] History of present illness: Ms. Barber is a 72 year old female who presented to the emergency department from nursing facility with difficulty in breathing and confusion. Patient recently admitted to the hospital for appendectomy and subsequently developed intra-abdominal pelvic abscess. The patient had a prolonged hospitalization at that time and was discharged to nursing facility on prolonged antibiotics including daptomycin and Zosyn. The patient had 2 KARAN drains placed during that hospitalization that are still in place. The patient was evaluated in the emergency department at [place] and was communicated to myself and the patient was hypoxic and required higher than normal supplemental oxygen to maintain adequate pulse oximetry. The patient had a CT scan of her chest abdomen and pelvis which revealed a increasing left-sided pleural effusion that now has a loculated component as well as a small stable right-sided pleural effusion. The CAT scan of her abdomen revealed that there does not appear to currently be any remaining loculated abscess. Patient's CT scan of her brain was negative for any acute intracranial pathology. The patient also had an ABG which revealed a mild metabolic acidosis with appropriate respiratory compensation. Currently the patient evaluated and states that she is feeling okay and does not quite remember how she ended up in the emergency department earlier this morning. The patient states that her breathing seems difficult set at some points but is currently not having any shortness of breath. Patient denies any recent cough or fevers. Patient denies any abdominal pain other than some discomfort where her drains have been coming out for the past month or so. Patient is having diarrhea today however it appears that she is on several medications for bowel regimen. Currently the patient is alert and oriented 3 however does seem somewhat confused at times; unsure of her baseline mentation. Review of notes from [place] mentions that the patient's only complaint was that she just did not feel right. It appears that she also received a dose of ertapenem at [place] emergency department. Past Med Surg Social Fam HX - Past Medical History Medical history: arthritis, asthma, atrial fibrillation, CHF, COPD, GERD, hyperlipidemia, hypertension, osteoporosis, renal disease, venous stasis, valvular heart disease, other Additional medical history: blind Psychiatric history: anxiety, depression - Past Surgical History Surgical History: cataract, cholecystectomy, heart valve replacement, herniorrhaphy, hysterectomy, knee replacement, orthopedic, other, sinus surgery , other Additional surgical history: lung surgery - right pleurodesis secondary to pleural effusions after cardiac surgery. "Ross" heart procedure- 1994 [facility] - Social History Smoking Status: Never smoker Smokeless Tobacco Status: No Alcohol use: none Drug use: none - Family History Father Adopted: No Family Member Ethnicity: Non- Living Status: Hx Family Cardiac Disorders: Yes (HD, Pig valve, HD) Hx Family Cancer: Yes (Cancer on lip) Hx Family GI Disorders: Yes (CKD) Hx Family Endocrine Disorder: Yes (Gallstones) Sister Family Member Ethnicity: Non- Living Status: Hx Family Endocrine Disorder: Yes (DM) Mother Adopted: No Family Member Ethnicity: Non- Living Status: Hx Family Cardiac Disorders: Yes (HD, Anemia) - Additional Family History Additional family history: Family history reviewed and negative for any pertinent history. Internal Medicine - H&P: Meds Cyclosporine [Restasis] 1 drop BOTH EYES BID 04/30/15 [History] Potassium Chloride 20 meq PO BID 06/19/16 [History] Calcitriol [Rocaltrol] 0.25 mcg PO DAILY 03/20/17 [History] Albuterol Sulfate [Albuterol Inhaler] 2 puff IH Q4HR PRN 08/27/17 [History] Esomeprazole Magnesium [Nexium] 40 mg PO DAILY 10/06/17 [History] Aspirin Enteric Coated [Aspirin EC] 81 mg PO DAILY tablet. 11/02/17 [Rx] Docusate [Colace] 100 mg PO BID PRN capsule 12/02/17 [Rx] Fluticasone Propionate Nasal [Flonase] 50 mcg NS DAILY bottle 12/02/17 [Rx] Quetiapine Fumarate [Seroquel] 50 mg PO HS 03/09/18 [History] Fluticasone/Vilanterol [Breo Ellipta 100-25 Mcg INH] 1 puff IH DAILY 03/29/18 [ History] Loperamide [Imodium] 2 mg PO Q6H PRN 03/29/18 [History] Ondansetron [Zofran] 8 mg PO Q6H PRN 03/29/18 [History] Acetaminophen [Tylenol] 650 mg PO Q4HR PRN #60 tablet 04/29/18 [Rx] Bisacodyl [Dulcolax] 10 mg RC DAILY PRN supp.rect 04/29/18 [Rx] Calcium Carbonate [Tums] 1,000 mg PO Q4HR PRN #30 tab.chew 04/29/18 [Rx] Ferrous Sulfate 325 mg PO BIDWM #60 tablet 04/29/18 [Rx] Loratadine [Claritin] 10 mg PO Q48H #0 04/29/18 [Rx] Metoprolol [Lopressor] 12.5 mg PO BID #30 tablet 04/29/18 [Rx] 0.9 % Sodium Chloride [Normal Saline Flush] 10 ml IVP Q8H syringe 05/20/18 [Rx] DAPTOmycin [Cubicin] 640 mg IVPB Q48H 28 Days #14 vial 05/21/18 [Rx] Levothyroxine [Synthroid] 112 mcg PO DAILY 06/17/18 [History] [id number]-Yaiq-Guhsvnvm,Iso [Zosyn 3.375 gm/50 ml Galaxy] 3.375 gm IV Q8H [History] 3 Allergy/AdvReac Type Severity Reaction Status Date / Time ciprofloxacin [From Cipro] Allergy Hives Verified 03/29/18 21:41 meperidine [From Demerol] AdvReac Vomiting Verified 03/29/18 21:41 All Systems PM: A 10-system review of systems was performed and is negative for pertinent findings except as documented above in the HPI. Review of systems: 10 point review of systems is obtained and is otherwise negative other than described in history of present illness - Constitutional Vitals: Temp Pulse Resp BP Pulse Ox 96.1 F L 96 15 96/73 99 06/17/18 13:13 06/17/18 13:13 06/17/18 13:13 06/17/18 13:13 06/17/18 13:13 Exam: Constitutional: No acute distress, Alert Psych: AAO x 3 however seems confused at times HEENT: NCAT, EOMI Neck: supple Derm: multiple eccymoses on bilateral upper extremities and abodmen Cardio: Irregularly irregular with controlled rate in low 90s, +s1s2 Resp: decreased breath sounds in bases; no wheezing Abd: soft, several nodules from subcutaneous heparin injections, 2 KARAN drains in left lower quadrant without significant surrounding erythema; they appear to be draining scant serous fluid at this time, BS positive Extremities: 3+ pitting edeam with anasarca present extending to abodmen Neuro: no focal deficits appreciated Lymph: no cervical denopahty apprecitated Internal Med - H&P Results - Labs CBC & Chem 7: 06/17/18 14:49 - Assessment and plan (1) Acute and chronic respiratory failure with hypoxia Current Visit: Yes Status: Acute Assessment and plan: -Per report the patient was hypoxic in the emergency department requiring higher than normal supplemental oxygen -Currently on home dose of 2 L -Unclear etiology; patient with interval increase in left pleural effusion now with apparent loculations; however this is not of significant size and may not be contributing to her respiratory failure -Patient does have recent history of what appears to be unexplained respiratory failure requiring intubation last admission -We will consult pulmonology for evaluation of a loculated effusion and further pulmonary recommendations; aware of consult -The patient seems to be improved and her respiratory status; he does have a history of COPD may have had some bronchospasm possibly related to aspiration; will order speech eval to rule out aspiration -Remains on antibiotics for intra-abdominal abscess -The patient is volume overloaded though with no overt signs of heart failure and is laying flat; CT did reveal findings of possible interstitial edema; the patient would benefit from diuresis however the patient has been unable to tolerate diuresis in the past secondary to low normal blood pressure; will consider diuresis if blood pressure improves and can tolerate -Continue supplemental oxygen and bronchodilators as needed -Patient very high risk for complications and deterioration (2) Loculated pleural effusion Current Visit: Yes Status: Acute Assessment and plan: Bilateral pleural effusions -Small right pleural stable pleural effusion -Enlarging left newly loculated pleural effusion however this remained small -Pulmonology consult to evaluate (3) Encephalopathy Current Visit: Yes Status: Acute Assessment and plan: Unclear etiology -Likely toxic metabolic encephalopathy presumably from hypoxia -Appears to be improving the patient is alert and oriented with just intermittent confusion; per documentation the patient was garbling her speech upon her vital to the emergency department -We will repeat ABG -We will continue to monitor closely (4) Intra-abdominal abscess post-procedure Current Visit: Yes Status: Acute Assessment and plan: -s/p appendectomy 03/10/18 -on parts counterman abx with Zosyn and Daptomycin -CT abd/pelvis today shows near resolution of abcess/hematoma -Continue IV abx for now -Consult ID to see if abx can be dced -hopefully remove drains soon Qualifiers: Encounter type: subsequent encounter (5) Metabolic acidosis Current Visit: Yes Status: Acute Assessment and plan: -mild non anion gap acidosis -likely 2/2 bicarb losses with diarrhea -pt has intermitent diarrhea and started again today -stool studies sent -will follow bmp (6) Thrombocytopenia Current Visit: Yes Status: Acute Assessment and plan: -Appears chronic and stable over the last5 weeks; possiblly related to her antibiotics -platelets 100K now; has been 93-115K over last 5 weeks -will monitor (7) Chronic indwelling Parks catheter Current Visit: Yes Status: Acute Assessment and plan: -doubt infection with current abx but with encephalopathy will get UA -ID consulted (8) CKD (chronic kidney disease) stage 3, GFR 30-59 ml/min Current Visit: Yes Status: Acute Assessment and plan: -Creat improved from baseline today -repeat bmp pending -watch renal function and dose abx appropirately (9) Congestive heart failure Current Visit: No Status: Chronic Assessment and plan: -Chronic compensated congestive heart failure with diastolic dysfunction -Would benefit from diuresis and long-term but blood pressures been unable to tolerate in the past secondary to low normal blood pressures -Continue to monitor and a blood pressure allows consider diuresis Qualifiers: Heart failure type: diastolic Heart failure chronicity: chronic Qualified Code(s): I50.32 - Chronic diastolic (congestive) heart failure (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 Current Visit: No Status: Chronic Assessment and plan: -stable (11) Obesity (BMI 30-39.9) Current Visit: No Status: Chronic Assessment and plan: -Continue lifestyle modification (12) Superficial thrombophlebitis of upper extremity Current Visit: Yes Status: Acute Assessment and plan: -noted on past admission -pt with anasarca but no unsymmetrical swelling of either upper or lower extremity Qualifiers: Laterality: left Qualified Code(s): I80.8 - Phlebitis and thrombophlebitis of other sites (13) DVT prophylaxis Current Visit: Yes Status: Acute Assessment and plan: -Subcutaneous heparin - Time Spent With Patient Total time spent is greater than 50% in coordination of care (as documented) at patient's floor/unit and/or counseling patient: Greater than 35 minutes (65 minutes)
[2018-06-17] MEDS ORDERED: NON-FORMULARY MEDICATION 1 EACH EACH (Piperacillin-Tazo-Dextrose,Iso [Zosyn 3.375 Gm/50 Ml IV SCH (13:45)
[2018-06-17] MEDS ORDERED: DAPTOmycin 500 MG VIAL IVPB SCH (14:00)
--- NOTE | 2018-06-17 15:01 | Infectious Disease Consult ---
Date of Encounter: 06/17/18 Time of Encounter: 14:46 Assessment and Plan (1) Pelvic fluid collection Status: Acute Assessment and plan: Causative organism: S. epi, E. coli x 2, and Enterococcus faecium. Additional culture obtained with new drain placement grew E. coli. Aspergillus also came back on the culture after the patient was discharged, but this is likely a contaminant as we recently had a known lab contamination. CT scan completed 03/29/2018 showed moderate volume of fluid in the pelvis and along the mesentery with subacute blood. Repeat CT of the abdomen and pelvis completed 04/01/18 showed a complex fluid collection within the pelvis, here unchanged in size and the density continued to decrease making the finding concerning for an organizing hematoma, although there was suggestion of possible capsule formation, and the possibility of an abscess should be considered. She also had some increasing right-sided hydronephrosis, but presumably from compression of the distal right ureteral compression. Status post CT-guided placement of abdominal abscess drainage catheter on by interventional radiology. No cultures were obtained at the time of catheter placement, but pathology was negative for malignancy. Culture obtained on 04/10/18 positive for and or coccus fascia, staph epi, and 2 strains of Escherichia coli. Repeat CT scan on 04/12/18 showed a large complex appearing fluid collection likely representing an abscess measuring approximately 17 x 11 x 8 cm in size and appears somewhat decreased in size when compared to the previous examination , however a large amount of fluid remained. Additional repeat CAT scan completed 04/19/18 showed complex large abscess in the lower abdomen and pelvis, unchanged in appearance and only slightly decreased in the size of the large abscess compared to prior examination, possibly secondary to multi loculation with a large amount of fluid remaining in the abscess. New drain placed in the abscess 04/19/18. Repeat CT scan 04/26/18 with PO contrast shows minimal improvement in the intra- abdominal abscess, likely secondary to multiple loculations. No surgical recommendations from the surgery team at that time. Repeat CT of the abdomen and pelvis showed that the pelvic abscess had decreased in size, but was still there. New CT scan completed 06/17/18 showed resolution of the abscess. Recommend IR consult to remove drains. Discontinue Daptomycin and Zosyn and observe. (2) Pleural effusion Status: Acute Assessment and plan: Location: bilateral with elements of loculation noted to the left side. Etiology unclear. Unlikely infectious, but if it is infectious, it is obviously resistant to Dapto and Zosyn so we will stop those and observe. Pulmonology consulted. Await recommendations. (3) H/O prosthetic heart valve Status: Chronic (4) Hypertension Status: Chronic Qualifiers: Hypertension type: essential hypertension Qualified Code(s): I10 - Essential (primary) hypertension (5) Legally blind Status: Chronic (6) Obesity (BMI 30-39.9) Status: Chronic (7) Diarrhea Status: Resolved Assessment and plan: Likely secondary to bowel regimen. If >4 loose watery stools in 24 hours, recommend GI panel to evaluate. Qualifiers: Diarrhea type: unspecified type Qualified Code(s): R19.7 - Diarrhea, unspecified Infectious Disease HPI - Data of Consult Patient: known to practice within the last 3 years Consult date: 06/17/18 Requesting Physician: Amanda Vazquez MD Primary Care Provider: Lokesh Cooper MD - Consult Narrative Reason for consult: Intra-abdominal abscess History of present illness: Ms. Barber is a 72 year old female with a past medical history of asthma, A. fib, CHF, COPD, blindness, hypertension, hyperlipidemia, chronic kidney disease , an intra-abdominal abscess status post appendectomy back in March currently on long-term IV antibiotics. The patient was admitted to the hospital June 17 for pleural effusion and altered mental status. We are consulted June 17 for antibiotic recommendations for her intra-abdominal abscess. Briefly, the patient is a 72-year-old female with past medical history as stated above. The patient is well-known to the ID services and consult on her case multiple times in the past. The patient had come back to the hospital for postop hematoma/abscess in the pelvis status post lap appendectomy in February. Cultures grew Escherichia coli 2 stiff different strains, staph epi, enterococcus faecium. She had multiple CT scans while here in the hospital that showed minimal improvement in the abscess and she was discharged to a local extended care facility to complete a prolonged course of IV antibiotics including Vanc, Rocephin, and Flagyl. She was scheduled for repeat CT scan as an outpatient was to follow up with us in the office in about a week. Apparently, on the day of her last admission, the patient was found unresponsive at the [facility] with blood in her mouth and on her gown. It was unclear if the patient had actually been vomiting blood or not. She was subsequently intubated and transferred here for further evaluation. She was extubated and did well clinically. Repeat CT scan of the abdomen showed that the pelvic abscess had decreased in size, but was still present. IR was consulted and recommended flushing the drains. Output resumed. Blood cultures drawn at OSH were positive for VRE 1/2. Repeat blood cultures drawn here were negative. Her antibiotics were transitioned to Daptomycin, Rocephin, and Flagyl to complete an additional 4 weeks of IV antibiotics given the new culture results. She was discharged to a local ECF to complete her course of treatment. Since discharge, the patient has been hospitalized at [place]. Our office has attempted to get records from [place] for several days, but we have been unsuccessful. Apparently, the patient's antibiotics were switched to Dapto and Zosyn for unknown reason. Today, the patient had shortness of breath and confusion. She was taken to [place] [facility] and was noted to be tachycardic, but otherwise hemodynamically stable. WBC, renal function, LFTs, CK level, and lipase were normal. Urinalysis was positive for moderate leukocyte esterase, 3- 4 squamous cells, and trace bacteria. She had a CT chest that showed increased left pleural effusion with elements of loculation. CT of the abdomen and pelvis did show any abscess. She was given a dose of IV Ertapenem and transferred here for further evaluation. During exam my exam today, the patient endorses the history as stated above. She states she has been in her usual state of health and is not sure what brought her to the ER. She reports some intermittent diarrhea and abdominal pain that has been ongoing for several months. She reports sinus drainage that has been causing a dry cough. She reports some intermittent chills, but denies fevers or rigors. Denies chest pain or shortness of breath. Denies nausea, vomiting. States her appetite has been better. Denies oral thrush or new skin lesions. CC: Amanda Vazquez MD Past Med Surg Social Fam HX - Past Medical History Source: patient, old records reviewed, nursing notes reviewed Medical history: arthritis, asthma, atrial fibrillation, CHF, COPD, GERD, hyperlipidemia, hypertension, osteoporosis, renal disease, venous stasis, valvular heart disease, other Additional medical history: blind Psychiatric history: anxiety, depression - Past Surgical History Surgical History: cataract, cholecystectomy, heart valve replacement, herniorrhaphy, hysterectomy, knee replacement, orthopedic, other, sinus surgery , other Additional surgical history: lung surgery - right pleurodesis secondary to pleural effusions after cardiac surgery. "Ross" heart procedure- 1994 [facility] - Social History Smoking Status: Never smoker Smokeless Tobacco Status: No Alcohol use: none Drug use: none - Family History Father Adopted: No Family Member Ethnicity: Non- Living Status: Hx Family Cardiac Disorders: Yes (HD, Pig valve, HD) Hx Family Cancer: Yes (Cancer on lip) Hx Family GI Disorders: Yes (CKD) Hx Family Endocrine Disorder: Yes (Gallstones) Sister Family Member Ethnicity: Non- Living Status: Hx Family Endocrine Disorder: Yes (DM) Mother Adopted: No Family Member Ethnicity: Non- Living Status: Hx Family Cardiac Disorders: Yes (HD, Anemia) Infectious Disease-CN:Meds Cyclosporine [Restasis] 1 drop BOTH EYES BID 04/30/15 [History] Potassium Chloride 20 meq PO BID 06/19/16 [History] Calcitriol [Rocaltrol] 0.25 mcg PO DAILY 03/20/17 [History] Albuterol Sulfate [Albuterol Inhaler] 2 puff IH Q4HR PRN 08/27/17 [History] Esomeprazole Magnesium [Nexium] 40 mg PO DAILY 10/06/17 [History] Aspirin Enteric Coated [Aspirin EC] 81 mg PO DAILY tablet. 11/02/17 [Rx] Docusate [Colace] 100 mg PO BID PRN capsule 12/02/17 [Rx] Fluticasone Propionate Nasal [Flonase] 50 mcg NS DAILY bottle 12/02/17 [Rx] Quetiapine Fumarate [Seroquel] 50 mg PO HS 03/09/18 [History] Fluticasone/Vilanterol [Breo Ellipta 100-25 Mcg INH] 1 puff IH DAILY 03/29/18 [ History] Loperamide [Imodium] 2 mg PO Q6H PRN 03/29/18 [History] Ondansetron [Zofran] 8 mg PO Q6H PRN 03/29/18 [History] Acetaminophen [Tylenol] 650 mg PO Q4HR PRN #60 tablet 04/29/18 [Rx] Bisacodyl [Dulcolax] 10 mg RC DAILY PRN supp.rect 04/29/18 [Rx] Calcium Carbonate [Tums] 1,000 mg PO Q4HR PRN #30 tab.chew 04/29/18 [Rx] Ferrous Sulfate 325 mg PO BIDWM #60 tablet 04/29/18 [Rx] Loratadine [Claritin] 10 mg PO Q48H #0 04/29/18 [Rx] Metoprolol [Lopressor] 12.5 mg PO BID #30 tablet 04/29/18 [Rx] 0.9 % Sodium Chloride [Normal Saline Flush] 10 ml IVP Q8H syringe 05/20/18 [Rx] DAPTOmycin [Cubicin] 640 mg IVPB Q48H 28 Days #14 vial 05/21/18 [Rx] Levothyroxine [Synthroid] 112 mcg PO DAILY 06/17/18 [History] Qjvbpwdnifxg-Uhuu-Uppjsxar,Iso [Zosyn 3.375 gm/50 ml Galaxy] 3.375 gm IV Q8H [History] 3 Allergy/AdvReac Type Severity Reaction Status Date / Time ciprofloxacin [From Cipro] Allergy Hives Verified 03/29/18 21:41 meperidine [From Demerol] AdvReac Vomiting Verified 03/29/18 21:41 All systems: reviewed and no additional remarkable complaints except as stated Exam - Constitutional Vitals: Temp Pulse Resp BP Pulse Ox 96.1 F L 96 15 96/73 99 06/17/18 13:13 06/17/18 13:13 06/17/18 13:13 06/17/18 13:13 06/17/18 13:13 General appearance: cooperative, morbidly obese, no acute distress - Head Head exam: Present: atraumatic, normal inspection, normocephalic - ENT ENT exam: Present: mucous membranes moist - Neck Neck exam: Present: normal inspection - Respiratory Respiratory exam: Present: CTAB. Absent: rales, respiratory distress, rhonchi, wheezes - Cardiovascular Cardiovascular exam: Present: RRR, +S1, +S2 - GI/Abdominal GI/Abdominal exam: Present: distended (obese), normal bowel sounds, soft. Absent: tenderness Additional comments: KARAN drain noted to the left lower abdomen with scant dark brown drainage noted in the bulbs. - Extremities Exam Extremities exam: Present: normal inspection, pedal edema (1+ BLE). Absent: joint swelling, tenderness - Neurological Exam Neurological exam: Present: alert, oriented X3, no focal deficits - Psychiatric Psychiatric exam: Present: normal affect, normal mood - Skin Skin exam: Present: dry, intact, normal color, warm - Additional findings Additional findings: Parks catheter noted to be draining clear yellow urine. Infectious Disease CN: Results - Labs CBC & Chem 7: 06/17/18 14:49 Consult Discharge Plan - Plan Referrals: Lokesh Cooper MD [Primary Care Provider] - - Attending Attestation I examined this patient and my medical decision-making was reviewed with the Resident Physician. I agree with the documented findings, disposition and treatment plan as described except to the extent set forth below. This is an addendum to original report dictated by Monica Waller CNP. Please refer to Monica's note for full details. Patient is 72-year-old woman well-known to our service was recently seen by us for pelvic abscess with Escherichia coli, staph epi and Enterococcus faecalis that was a VRE. Patient was discharged home on daptomycin and Rocephin and Flagyl. Apparently patient was seen at [place] for a different issue including altered mental status and Rocephin and Flagyl were switched to Zosyn. Patient has been on antibiotics since 04/06/2018. Patient came in right now for total different reason including altered mental status. Patient had a CT abdomen and pelvis at [facility] and apparently the fluid collection is fully resolved. We were asked make further recommendations on this patient. At this point we decided to stop the Zosyn and daptomycin and see how the patient does clinically. We will watch closely for any signs of sepsis will repeat cultures and reimage. In the meantime we will sign off please call us with any further questions
--- NOTE | 2018-06-17 15:01 | Pulmonology Consult Note ---
<Ayan Jameson - Last Filed: 06/17/18 18:04> Date of Encounter: 06/17/18 Time of Encounter: 15:00 Assessment and Plan (1) Acute and chronic respiratory failure with hypoxia Current Visit: No Status: Resolved - Likely mutifactorial due to her history of COPD and CHF. Patient is on 2 L of home oxygen. - Initial will workup in the [facility] showed a right-sided pleural effusion, opacity in both lungs with concerns for interstitial edema. -On physical exam patient has mild wheezing. With +1 pitting edema -Continue supplement oxygen, Duonebs PRN - Procalcitonin, sputum, blood culture pending. - (2) Loculated pleural effusion Current Visit: Yes Status: Acute - Radiographic studies showed right pleural effusion and small left pleural effusion. Effusion is loculated in nature. -On physical exam patient has diminished breath sounds in the base with but no wheezing. - Continue to monitor . Will consider the possibility of CT-guided pleural fluid drainage if necessary - (3) Encephalopathy Current Visit: Yes Status: Acute - At this point it is difficult to delineate the exact cause for her encephalopathy. Although her UA was unremarkable at [facility], we are going to repeat her UA, get sputum, blood cultures to rule out any infectious etiology. Does not appear to be septic at this moment - she is afebrile, not tachycardic her white blood count is normal. -Continue to monitor History of Present Illness Consult date: 06/17/18 Chief complaint: SOB History of present illness: This is a 72-year-old female with a past medical history of COPD, GERD, C Sylvia stage III, A. fib, s/p appendectomy who presented to the ER for nursing facility with shortness of breath and confusion. most of the Hx was obtained from the records obtained from the [facility]. Inititla workup was negative for any intra-treated masses and head CT. Her UA was unremarkable. Patient ABG revealed mild metabolic acidosis with appropriate dressed decompensation. Chest CT was positive for right side pleural effusion and a small on the L side , along groundglass opacities in both lungs with concerns for interstitial edema. CT also showed third spacing of fluid PAtient was recently admitted to the ICU about a month ago for acute respiratory failure with hypoxia and was intubated. Past Med Surg Social Fam HX - Past Medical History Medical history: arthritis, asthma, atrial fibrillation, CHF, COPD, GERD, hyperlipidemia, hypertension, osteoporosis, renal disease, venous stasis, valvular heart disease, other Additional medical history: blind Psychiatric history: anxiety, depression - Past Surgical History Surgical History: cataract, cholecystectomy, heart valve replacement, herniorrhaphy, hysterectomy, knee replacement, orthopedic, other, sinus surgery , other Additional surgical history: lung surgery - right pleurodesis secondary to pleural effusions after cardiac surgery. "Ross" heart procedure- 1994 [facility] - Social History Smoking Status: Never smoker Smokeless Tobacco Status: No Alcohol use: none Drug use: none - Family History Father Adopted: No Family Member Ethnicity: Non- Living Status: Hx Family Cardiac Disorders: Yes (HD, Pig valve, HD) Hx Family Cancer: Yes (Cancer on lip) Hx Family GI Disorders: Yes (CKD) Hx Family Endocrine Disorder: Yes (Gallstones) Sister Family Member Ethnicity: Non- Living Status: Hx Family Endocrine Disorder: Yes (DM) Mother Adopted: No Family Member Ethnicity: Non- Living Status: Hx Family Cardiac Disorders: Yes (HD, Anemia) Medications and Allergies Cyclosporine [Restasis] 1 drop BOTH EYES BID 04/30/15 [History] Potassium Chloride 20 meq PO BID 06/19/16 [History] Calcitriol [Rocaltrol] 0.25 mcg PO DAILY 03/20/17 [History] Albuterol Sulfate [Albuterol Inhaler] 2 puff IH Q4HR PRN 08/27/17 [History] Esomeprazole Magnesium [Nexium] 40 mg PO DAILY 10/06/17 [History] Aspirin Enteric Coated [Aspirin EC] 81 mg PO DAILY tablet. 11/02/17 [Rx] Docusate [Colace] 100 mg PO BID PRN capsule 12/02/17 [Rx] Fluticasone Propionate Nasal [Flonase] 50 mcg NS DAILY bottle 12/02/17 [Rx] Quetiapine Fumarate [Seroquel] 50 mg PO HS 03/09/18 [History] Fluticasone/Vilanterol [Breo Ellipta 100-25 Mcg INH] 1 puff IH DAILY 03/29/18 [ History] Loperamide [Imodium] 2 mg PO Q6H PRN 03/29/18 [History] Ondansetron [Zofran] 8 mg PO Q6H PRN 03/29/18 [History] Acetaminophen [Tylenol] 650 mg PO Q4HR PRN #60 tablet 04/29/18 [Rx] Bisacodyl [Dulcolax] 10 mg RC DAILY PRN supp.rect 04/29/18 [Rx] Calcium Carbonate [Tums] 1,000 mg PO Q4HR PRN #30 tab.chew 04/29/18 [Rx] Ferrous Sulfate 325 mg PO BIDWM #60 tablet 04/29/18 [Rx] Loratadine [Claritin] 10 mg PO Q48H #0 04/29/18 [Rx] Metoprolol [Lopressor] 12.5 mg PO BID #30 tablet 04/29/18 [Rx] 0.9 % Sodium Chloride [Normal Saline Flush] 10 ml IVP Q8H syringe 05/20/18 [Rx] DAPTOmycin [Cubicin] 640 mg IVPB Q48H 28 Days #14 vial 05/21/18 [Rx] Levothyroxine [Synthroid] 112 mcg PO DAILY 06/17/18 [History] Lxoqqeydndyf-Zlix-Arnxxarq,Iso [Zosyn 3.375 gm/50 ml Galaxy] 3.375 gm IV Q8H [History] 3 Allergy/AdvReac Type Severity Reaction Status Date / Time ciprofloxacin [From Cipro] Allergy Hives Verified 03/29/18 21:41 meperidine [From Demerol] AdvReac Vomiting Verified 03/29/18 21:41 All Systems: The remainder of the systems were reviewed and are negative Physical Examination Vital Signs: Vital Signs, Last 4 Hours Temp Pulse Resp BP Pulse Ox 06/17/18 13:13 96.1 F L 96 15 96/73 99 General appearance: no acute distress Auscultation: bilateral: diminished breath sounds (no wheeizing) Cardiovascular: irregular rhythm (rate controlled) Gastrointestinal: soft, non-tender, non-distended Extremities: edema (1+) Results - Laboratory Findings CBC and BMP: 06/17/18 14:49 - Clinical Findings Intake & Output: Intake & Output 06/16/18 06/17/18 06/17/18 23:59 07:59 15:59 Weight 99.2 kg Consult Discharge Plan - Plan Referrals: Lokesh Cooper MD [Primary Care Provider] - <Fernando Najera S - Last Filed: 06/17/18 21:06> Date of Encounter: 06/17/18 All Systems: The remainder of the systems were reviewed and are negative Physical Examination Vital Signs: Vital Signs, Last 4 Hours Temp Pulse Resp BP Pulse Ox 06/17/18 18:38 97.6 F 96 15 121/75 98 Results - Laboratory Findings CBC and BMP: 06/17/18 14:49 06/17/18 17:51 ABG ABG pH 7.31 pH Units (7.32-7.45) L 06/17/18 15:22 ABG pCO2 43 mmHg (35-45) 06/17/18 15:22 ABG pO2 83 mmHg (85-104) L 06/17/18 15:22 ABG O2 Saturation 95 % (95-98) 06/17/18 15:22 Abnormal lab findings: Abnormal lab results RBC 3.19 M/mcL (3.82-4.97) L 06/17/18 14:49 Hgb 9.5 g/dL (11.5-15.4) L 06/17/18 14:49 Hct 31.2 % (35.3-44.9) L 06/17/18 14:49 MCHC 30.4 g/dL (31.6-35.5) L 06/17/18 14:49 RDW 19.5 % (11.5-14.5) H 06/17/18 14:49 Plt Count 131 K/mcL (140-400) L 06/17/18 14:49 Nucleated RBCs/100 WBC 0.5 /100 WBC (0) H 06/17/18 14:49 ABG pH 7.31 pH Units (7.32-7.45) L 06/17/18 15:22 ABG pO2 83 mmHg (85-104) L 06/17/18 15:22 ABG Base Excess -5 mEq/L (-2 to 3) L 06/17/18 15:22 Chloride 112 mEq/L (98-107) H 06/17/18 17:51 Carbon Dioxide 20 mEq/L (23-29) L 06/17/18 17:51 Est GFR (Non-Af Amer) 50 (> 60) L 06/17/18 17:51 - Microbiology Findings Microbiology Findings: Microbiology, Last 48 Hours 06/17/18 18:13 Blood Culture - Preliminary Peripheral Venipuncture Culture is incubating and being continuously monitored for growth. Final report to follow. 06/17/18 18:07 Blood Culture - Preliminary Peripheral Venipuncture Culture is incubating and being continuously monitored for growth. Final report to follow. - Clinical Findings Intake & Output: Intake & Output 06/17/18 06/17/18 06/17/18 07:59 15:59 23:59 Intake Total 100 / 100 Output Total 350 / 350 Balance -350 / -350 100 / 100 Weight 99.2 kg - Attending Attestation I saw and evaluated this patient and my medical decision-making was reviewed with the Resident Physician. I agree with the documented findings, disposition and treatment plan as described except to the extent set forth below. We independently had [id number] contact with the patient Patient seen and examined at bedside Labs, radiology, chart personally reviewed. Acute on chronic respiratory failure due to V/Q mismatch is multifactorial complicated by a hydrostatic pulmonary edema, bilateral pleural effusion left- sided pleural effusion is more loculated i reviewed all the imaging patient had left-sided pneumonia in the past with pleural effusion looks like old inflammatory changes with some collection clinically and radiologically does not look infected if the patient's condition deteriorated will consider CT- guided diagnostic thoracentesis. We will now approach with conservative management to do workup for sepsis appreciate infectious disease recommendation and agree with their recs about stopping all antibiotics and will do waitful watching.
[2018-06-17 15:04] LABS: Basophils % 0.2 %; Eosinophils # 0.2 K/mcL (0.0-0.6); Hematocrit 31.2 % (35.3-44.9); Hemoglobin 9.5 g/dL (11.5-15.4); Immature Granulocytes % 1.9 % (0-4); Lymphocytes % 10.4 %; Mean Corpuscular HGB Conc 30.4 g/dL (31.6-35.5); Mean Corpuscular Hemoglobin 29.8 pg (28.0-33.3); Mean Corpuscular Volume 97.8 fL (83.0-100.0); Mean Platelet Volume 11.4 fL (9.4-12.4); Monocytes # 0.6 K/mcL (0.0-1.3); Monocytes % 5.8 %; Neutrophils # 7.8 K/mcL (1.6-8.9); Nucleated Red Blood Cells 0.5 /100 WBC (0); Platelet Count 131 K/mcL (140-400); Red Blood Count 3.19 M/mcL (3.82-4.97); Red Cell Distribution Width 19.5 % (11.5-14.5); Segmented Neutrophils % 79.7 %
[2018-06-17 15:23] LABS: Adenovirus F 40/41 PCR Not detected (Not detect); Astrovirus PCR Not detected (Not detect); C.difficile Toxin A/B by PCR Not detected (Not detect); Campylobacter by PCR Not detected (Not detect); Cryptosporidium by PCR Not detected (Not detect); Cyclospora cayetanensis PCR Not detected (Not detect); E. coli O157 by PCR Not detected (Not detect); Entamoeba histolytica PCR Not detected (Not detect); Enteroaggregative E.coli(EAEC) Not detected (Not detect); Enteropathogenic E.coli(EPEC) Not detected (Not detect); Enterotoxigenic E.coli (ETEC) Not detected (Not detect); Giardia lamblia PCR Not detected (Not detect); Norovirus GI/GII PCR Not detected (Not detect); Plesiomonas shigelloides PCR Not detected (Not detect); Rotavirus A PCR Not detected (Not detect); Salmonella PCR Not detected (Not detect); Sapovirus PCR Not detected (Not detect); Shig/EnteroinvasiveE coli EIEC Not detected (Not detect); Shigalike tox-prod E coli STEC Not detected (Not detect); Vibrio PCR Not detected (Not detect); Vibrio cholerae PCR Not detected (Not detect); Yersinia enterocolitica PCR Not detected (Not detect)
[2018-06-17 15:25] LABS: ABG Base Excess -5 mEq/L (-2 to 3); ABG HCO3 22 mEq/L (21-27); ABG Oxygen Saturation 95 % (95-98); ABG PCO2 43 mmHg (35-45); ABG PH 7.31 pH Units (7.32-7.45); ABG PO2 83 mmHg (85-104); ABG TCO2 23 mEq/L (20-26)
[2018-06-17] MEDS: Loratadine 10 MG TABLET PO SCH (16:43)
[2018-06-17] MEDS: Ondansetron ODT 4 MG TAB.RAPDIS PO PRN (16:49)
[2018-06-17] MEDS: *HR* Heparin 5,000 UNIT/ML VIAL SQ SCH (16:51)
[2018-06-17] MEDS ORDERED: Piperacillin/Tazobactam 3.375 GM in 0.9 % Sodium Chloride Mini Bag 100 ML IVPB SCH (16:54)
[2018-06-17 18:33] LABS: BUN/Creatinine Ratio 8 (6-26); Blood Urea Nitrogen 9 mg/dL (8-23); Calcium 9.2 mg/dL (8.6-10.3); Carbon Dioxide 20 mEq/L (23-29); Chloride 112 mEq/L (98-107); Glucose 97 mg/dL (70-105); Magnesium 1.6 mg/dL (1.6-2.6); Osmolality,Calculated 287 (280-300); Potassium 4.1 mEq/L (3.5-5.1); Sodium 139 mEq/L (136-145); eGFR For Non-African Americans 50 (> 60)
[2018-06-17] MEDS: (Cyclosporine [Restasis] 1 DROP) OP SCH (22:05)
[2018-06-18] MEDS: *HR* Heparin 5,000 UNIT/ML VIAL SQ SCH ×4 (00:12→23:59)
[2018-06-18 04:14] LABS: Basophils % 0.1 %; Eosinophils # 0.1 K/mcL (0.0-0.6); Eosinophils % 1.8 %; Hematocrit 25.3 % (35.3-44.9); Immature Granulocytes % 0.6 % (0-4); Lymphocytes # 0.9 K/mcL (0.6-4.6); Lymphocytes % 11.9 %; Mean Corpuscular HGB Conc 29.6 g/dL (31.6-35.5); Mean Corpuscular Hemoglobin 29.2 pg (28.0-33.3); Mean Corpuscular Volume 98.4 fL (83.0-100.0); Monocytes # 0.4 K/mcL (0.0-1.3); Monocytes % 4.9 %; Neutrophils # 5.8 K/mcL (1.6-8.9); Nucleated Red Blood Cells 0.6 /100 WBC (0); Platelet Count 105 K/mcL (140-400); Red Blood Count 2.57 M/mcL (3.82-4.97); Red Cell Distribution Width 19.3 % (11.5-14.5); Segmented Neutrophils % 80.7 %
[2018-06-18 04:16] LABS: Hemoglobin 7.5 g/dL (11.5-15.4)
[2018-06-18 04:38] LABS: BUN/Creatinine Ratio 9 (6-26); Blood Urea Nitrogen 10 mg/dL (8-23); Calcium 8.9 mg/dL (8.6-10.3); Carbon Dioxide 20 mEq/L (23-29); Chloride 113 mEq/L (98-107); Glucose 87 mg/dL (70-105); Osmolality,Calculated 288 (280-300); Potassium 4.4 mEq/L (3.5-5.1); Sodium 140 mEq/L (136-145); eGFR For Non-African Americans 50 (> 60)
[2018-06-18] MEDS: Aspirin Enteric Coated 81 MG Tablet PO SCH (08:21)
[2018-06-18] MEDS: Fluticasone Propionate Nasal 50 MCG/SPRAY BOTTLE NS SCH (08:21)
[2018-06-18] MEDS: (Cyclosporine [Restasis] 1 DROP) OP SCH (08:22)
[2018-06-18 08:52] LABS: Clarity,Urine Hazy (Clear); Color,Urine Yellow (Yellow); Glucose,Urine (UA) Normal (Normal)
[2018-06-18 08:53] LABS: Bilirubin,Urine Negative (Negative); Blood,Urine Moderate (Negative); Ketones,Urine Negative (Negative); PH,Urine 5.5 pH Units (5.0-8.0); Protein,Urine 100 mg/dL (Neg-Trace); Specific Gravity,Urine 1.026 (1.010-1.025); Urobilinogen,Urine Normal (Normal)
[2018-06-18 08:54] LABS: Leukocyte Esterase,Urine Large (Negative); Nitrite,Urine Negative (Negative)
[2018-06-18 08:57] LABS: Bacteria,Urine Few per hpf (None-Few); RBC,Urine 0-3 per hpf (0-3); WBC,Urine 30-50 per hpf (0-3)
[2018-06-18 08:59] LABS: Squamous Epithelial Cell,Urine Few per lpf (None-Few); Yeast,Urine Moderate per hpf (None Seen)
[2018-06-18] MEDS ORDERED: (Fluticasone/Vilanterol [Breo Ellipta 100-25 Mcg Inh] IH SCH (09:00)
--- NOTE | 2018-06-18 09:11 | Pulmonology Progress Note ---
<Fernando Najera S - Last Filed: 06/18/18 15:15> Date of Encounter: 06/18/18 Objective PUL Vital signs: Last Vital Signs Temp 98.4 F 06/18/18 14:14 Pulse 94 06/18/18 14:14 Resp 15 06/18/18 14:14 BP 125/81 06/18/18 14:14 Pulse Ox 99 06/18/18 09:55 Results - Laboratory Findings CBC and BMP: 06/18/18 03:59 06/18/18 03:59 ABG ABG pH 7.31 pH Units (7.32-7.45) L 06/17/18 15:22 ABG pCO2 43 mmHg (35-45) 06/17/18 15:22 ABG pO2 83 mmHg (85-104) L 06/17/18 15:22 ABG O2 Saturation 95 % (95-98) 06/17/18 15:22 Abnormal lab findings: Abnormal lab results RBC 2.57 M/mcL (3.82-4.97) L 06/18/18 03:59 Hgb 7.5 g/dL (11.5-15.4) L D 06/18/18 03:59 Hct 25.3 % (35.3-44.9) L 06/18/18 03:59 MCHC 29.6 g/dL (31.6-35.5) L 06/18/18 03:59 RDW 19.3 % (11.5-14.5) H 06/18/18 03:59 Plt Count 105 K/mcL (140-400) L 06/18/18 03:59 Nucleated RBCs/100 WBC 0.6 /100 WBC (0) H 06/18/18 03:59 ABG pH 7.31 pH Units (7.32-7.45) L 06/17/18 15:22 ABG pO2 83 mmHg (85-104) L 06/17/18 15:22 ABG Base Excess -5 mEq/L (-2 to 3) L 06/17/18 15:22 Chloride 113 mEq/L (98-107) H 06/18/18 03:59 Carbon Dioxide 20 mEq/L (23-29) L 06/18/18 03:59 Est GFR (Non-Af Amer) 50 (> 60) L 06/18/18 03:59 Urine Clarity Hazy (Clear) A 06/18/18 08:10 Ur Specific [place] 1.026 (1.010-1.025) H 06/18/18 08:10 Urine Protein 100 mg/dL (Neg-Trace) H 06/18/18 08:10 Urine Blood Moderate (Negative) H 06/18/18 08:10 Ur Leukocyte Esterase Large (Negative) H 06/18/18 08:10 Urine Microscopic WBC 30-50 per hpf (0-3) H 06/18/18 08:10 Urine Yeast Moderate per hpf (None Seen) H 06/18/18 08:10 Ur Culture Indicated? YES (NO) A 06/18/18 08:10 - Microbiology Findings Microbiology Findings: Microbiology, Last 48 Hours 06/17/18 18:13 Blood Culture - Preliminary Peripheral Venipuncture Culture is incubating and being continuously monitored for growth. Final report to follow. 06/17/18 18:07 Blood Culture - Preliminary Peripheral Venipuncture Culture is incubating and being continuously monitored for growth. Final report to follow. - Clinical Findings Intake & Output: Intake & Output 06/17/18 06/18/18 06/18/18 23:59 07:59 15:59 Intake Total 100 / 100 120 / 120 Output Total 125 / 125 0 / 0 Balance 100 / 100 -125 / -125 120 / 120 Weight 99.7 kg Consult Discharge Plan - Plan Referrals: Lokesh Cooper MD [Primary Care Provider] - - Attending Attestation I saw and evaluated this patient and my medical decision-making was reviewed with the Resident Physician. I agree with the documented findings, disposition and treatment plan as described except to the extent set forth below. We independently had [id number] contact with the patient Patient seen and examined at bedside Labs, radiology, chart personally reviewed. Pulmonary was consult that for evaluation of this loculated effusion looks like old collection of fluid from the previous admission clinically and radiographically does not look like fluid is empyema so we will hold off doing any diagnostic thoracentesis on this denies any signs of infection since this effusion is loculated patient will need CT-guided needle aspiration.. We will sign off please call with questions. <Ayan Jameson - Last Filed: 06/18/18 18:07> Date of Encounter: 06/18/18 Time of Encounter: : Assessment and Plan (1) Acute and chronic respiratory failure with hypoxia Current Visit: No Status: Resolved Likely mutifactorial due to her history of COPD and CHF. Patient is on 2 L of home oxygen. - Initial will workup in the [facility] showed a right-sided pleural effusion, opacity in both lungs with concerns for interstitial edema. -On physical exam patient has mild wheezing. With +1 pitting edema -Continue supplement oxygen, Duonebs PRN - Procalcitonin, sputum, blood culture pending. (2) Loculated pleural effusion Current Visit: Yes Status: Acute - Radiographic studies showed right pleural effusion and small left pleural effusion. Effusion is loculated in nature. -On physical exam patient has diminished breath sounds in the base with but no wheezing. - Continue to monitor . The effusion does not look like an empyema to there is no indication for diagnostic thoracentesis of this point. Will need CT-guided pleural fluid drainage in future if necessary - (3) Encephalopathy Current Visit: Yes Status: Acute - At this point it is difficult to delineate the exact cause for her encephalopathy. It could be secondary to her UTI . Patient had large amount of leukocyteesterase in her urine. Her sputum, blood cultures to rule out any infectious etiology. Does not appear to be septic at this moment - she is afebrile, not tachycardic her white blood count is normal. -Continue to monitor Subjective Principal diagnosis: pleural effusion Interval history: No acute events overnight. Met patient the bedside this morning. Breathing on 2 L nasal cannula no acute distress. Patient endorses no chest pain no coffee or shortness of breath. Objective PUL Vital signs: Last Vital Signs Temp 99.1 F 06/18/18 05:44 Pulse 96 06/18/18 05:44 Resp 16 06/18/18 05:44 BP 126/88 06/18/18 05:44 Pulse Ox 100 06/18/18 05:44 General appearance: no acute distress Effort: normal Auscultation: bilateral: diminished breath sounds (more on left side ) Percussion: bilateral: not dull Cardiovascular: regular rate and rhythm Extremities: no cyanosis, no edema, no clubbing Results - Laboratory Findings CBC and BMP: 06/18/18 03:59 06/18/18 03:59 ABG ABG pH 7.31 pH Units (7.32-7.45) L 06/17/18 15:22 ABG pCO2 43 mmHg (35-45) 06/17/18 15:22 ABG pO2 83 mmHg (85-104) L 06/17/18 15:22 ABG O2 Saturation 95 % (95-98) 06/17/18 15:22 Abnormal lab findings: Abnormal lab results RBC 2.57 M/mcL (3.82-4.97) L 06/18/18 03:59 Hgb 7.5 g/dL (11.5-15.4) L D 06/18/18 03:59 Hct 25.3 % (35.3-44.9) L 06/18/18 03:59 MCHC 29.6 g/dL (31.6-35.5) L 06/18/18 03:59 RDW 19.3 % (11.5-14.5) H 06/18/18 03:59 Plt Count 105 K/mcL (140-400) L 06/18/18 03:59 Nucleated RBCs/100 WBC 0.6 /100 WBC (0) H 06/18/18 03:59 ABG pH 7.31 pH Units (7.32-7.45) L 06/17/18 15:22 ABG pO2 83 mmHg (85-104) L 06/17/18 15:22 ABG Base Excess -5 mEq/L (-2 to 3) L 06/17/18 15:22 Chloride 113 mEq/L (98-107) H 06/18/18 03:59 Carbon Dioxide 20 mEq/L (23-29) L 06/18/18 03:59 Est GFR (Non-Af Amer) 50 (> 60) L 06/18/18 03:59 Urine Clarity Hazy (Clear) A 06/18/18 08:10 Ur Specific [place] 1.026 (1.010-1.025) H 06/18/18 08:10 Urine Protein 100 mg/dL (Neg-Trace) H 06/18/18 08:10 Urine Blood Moderate (Negative) H 06/18/18 08:10 Ur Leukocyte Esterase Large (Negative) H 06/18/18 08:10 Urine Microscopic WBC 30-50 per hpf (0-3) H 06/18/18 08:10 Urine Yeast Moderate per hpf (None Seen) H 06/18/18 08:10 Ur Culture Indicated? YES (NO) A 06/18/18 08:10 - Microbiology Findings Microbiology Findings: Microbiology, Last 48 Hours 06/17/18 18:13 Blood Culture - Preliminary Peripheral Venipuncture Culture is incubating and being continuously monitored for growth. Final report to follow. 06/17/18 18:07 Blood Culture - Preliminary Peripheral Venipuncture Culture is incubating and being continuously monitored for growth. Final report to follow. - Clinical Findings Intake & Output: Intake & Output 06/17/18 06/18/18 06/18/18 23:59 07:59 15:59 Intake Total 100 / 100 Output Total 125 / 125 0 / 0 Balance 100 / 100 -125 / -125 0 / 0 Weight 99.7 kg
--- NOTE | 2018-06-18 09:31 | Internal Med Progress Note ---
Hospitalist Progress Note - Encounter Date of Encounter: 06/18/18 Time of Encounter: 09:30 - Exam Vitals: Temp Pulse Resp BP Pulse Ox 99.1 F 96 16 126/88 100 06/18/18 05:44 06/18/18 05:44 06/18/18 05:44 06/18/18 05:44 06/18/18 05:44 Exam: Constitutional: No acute distress, Alert Psych: AAO x 3 however seems confused at times HEENT: NCAT, EOMI Neck: supple Derm: multiple eccymoses on bilateral upper extremities and abodmen Cardio: Irregularly irregular with controlled rate in low 90s, +s1s2 Resp: decreased breath sounds in bases; no wheezing Abd: soft, several nodules from subcutaneous heparin injections, 2 KARAN drains in left lower quadrant without significant surrounding erythema; they appear to be draining scant serous fluid at this time, BS positive Extremities: 3+ pitting edeam with anasarca present extending to abodmen Neuro: no focal deficits appreciated Lymph: no cervical denopahty apprecitated - Assessment and Plan (1) Encephalopathy Current Visit: Yes Status: Acute Assessment and Plan: Unclear etiology -Likely toxic metabolic encephalopathy presumably from hypoxia vs infection -Appears to be improving the patient is alert and oriented with just intermittent confusion; per documentation the patient was garbling her speech upon her vital to the emergency department Patient has improved this am. Follow up cultures (2) Acute and chronic respiratory failure with hypoxia Current Visit: Yes Status: Acute Assessment and Plan: -Per report the patient was hypoxic in the emergency department requiring higher than normal supplemental oxygen -Currently on home dose of 2 L -Unclear etiology; patient with interval increase in left pleural effusion now with apparent loculations; however this is not of significant size and may not be contributing to her respiratory failure -Patient does have recent history of what appears to be unexplained respiratory failure requiring intubation last admission Possibly secondary to acute worsening of chronic diastolic CHF vs loculated pleural effusion, luis bach Pulmonary following and plan for possible CT guided drainage (3) Congestive heart failure Current Visit: No Status: Chronic Assessment and Plan: -Acute worsening of chronic congestive heart failure with diastolic dysfunction -Started on lasix 40mg IV daily (4) Loculated pleural effusion Current Visit: Yes Status: Acute Assessment and Plan: Bilateral pleural effusions -Small right pleural stable pleural effusion -Enlarging left newly loculated pleural effusion however this remained small -Pulmonology following and appreciate recs. Plan for possible CT guided drainage (5) Intra-abdominal abscess post-procedure Current Visit: Yes Status: Acute Assessment and Plan: -s/p appendectomy 03/10/18 - was on senior living abx with Zosyn and Daptomycin -CT abd/pelvis today shows near resolution of abcess/hematoma Seen by ID and recommend drain removal and discontinuation of antibiotics. IR consulted (6) Obesity (BMI 30-39.9) Current Visit: No Status: Chronic Assessment and Plan: -Continue lifestyle modification (7) Metabolic acidosis Current Visit: Yes Status: Acute Assessment and Plan: -mild non anion gap acidosis -likely 2/2 bicarb losses with diarrhea -pt has intermitent diarrhea and started again today -stool studies sent -will follow bmp (8) Thrombocytopenia Current Visit: Yes Status: Acute Assessment and Plan: -Appears chronic and stable over the last5 weeks; possiblly related to her antibiotics -platelets 100K now; has been 93-115K over last 5 weeks -will monitor (9) Chronic indwelling Parks catheter Current Visit: Yes Status: Acute Assessment and Plan: -doubt infection with current abx but with encephalopathy will get UA -ID consulted (10) CKD (chronic kidney disease) stage 3, GFR 30-59 ml/min Current Visit: Yes Status: Acute Assessment and Plan: -Creat improved from baseline today -repeat bmp pending -watch renal function and dose abx appropirately (11) Superficial thrombophlebitis of upper extremity Current Visit: Yes Status: Acute Assessment and Plan: -noted on past admission -pt with anasarca but no unsymmetrical swelling of either upper or lower extremity (12) Legally blind Current Visit: No Status: Chronic Assessment and Plan: -stable (13) Anemia Current Visit: No Status: Acute Assessment and Plan: Likely secondary to chronic disease. Monitor hemoglobin. No acute indication to transfuse (14) DVT prophylaxis Current Visit: Yes Status: Acute Assessment and Plan: -Subcutaneous heparin - Time Spent with Patient Total time spent is greater than 50% in coordination of care (as documented) at patient's floor/unit and/or counseling patient: Internal Medicine: Result - Labs CBC & Chem 7: 06/18/18 03:59 06/18/18 03:59 Labs: Short CBC 06/17/18 06/18/18 Range/Units 14:49 03:59 WBC 9.8 7.2 (4.3-11.1) K/mcL Hgb 9.5 L 7.5 L D (11.5-15.4) g/dL Hct 31.2 L 25.3 L (35.3-44.9) % Plt Count 131 L 105 L (140-400) K/mcL Neutrophils # 7.8 5.8 (1.6-8.9) K/mcL BMP 06/17/18 06/18/18 17:51 03:59 Sodium 139 140 Potassium 4.1 4.4 Chloride 112 H 113 H Carbon Dioxide 20 L 20 L BUN 9 10 Creatinine 1.08 1.07 Glucose 97 87 Calcium 9.2 8.9 Urine 06/18/18 Range/Units 08:10 Urine Color Yellow (Yellow) Urine Clarity Hazy A (Clear) Urine pH 5.5 (5.0-8.0) pH Units Ur Specific [place] 1.026 H (1.010-1.025) Urine Protein 100 H (Neg-Trace) mg/dL Urine Glucose (UA) Normal (Normal) mg/dL - ABG Interpretation ABG results: ABG ABG pH 7.31 pH Units (7.32-7.45) L 06/17/18 15:22 ABG pCO2 43 mmHg (35-45) 06/17/18 15:22 ABG pO2 83 mmHg (85-104) L 06/17/18 15:22 ABG O2 Saturation 95 % (95-98) 06/17/18 15:22 Consult Discharge Plan - Plan Referrals: Lokesh Cooper MD [Primary Care Provider] - (3) Congestive heart failure Qualifiers: Heart failure type: diastolic Heart failure chronicity: chronic Qualified Code(s): I50.32 - Chronic diastolic (congestive) heart failure (11) Superficial thrombophlebitis of upper extremity Qualifiers: Laterality: left Qualified Code(s): I80.8 - Phlebitis and thrombophlebitis of other sites (13) Anemia Qualifiers: Anemia type: unspecified type Qualified Code(s): D64.9 - Anemia, unspecified
[2018-06-18] MEDS: *HR* Amiodarone 200 MG TABLET PO SCH (10:01)
[2018-06-18] MEDS: Ondansetron ODT 4 MG TAB.RAPDIS PO PRN (10:02)
[2018-06-18] MEDS: Budesonide/Formoterol 160/4.5 1 PUFF INH IH SCH ×2 (11:21→19:49)
[2018-06-18] MEDS: Furosemide 40 MG/4 ML VIAL IVP SCH (11:35)
--- NOTE | 2018-06-18 16:02 | Infectious Disease Progress No ---
Date of Encounter: 06/18/18 Time of Encounter: 16:01 - Assessment and Plan (1) Pelvic fluid collection Current Visit: No Status: Acute Causative organism: S. epi, E. coli x 2, and Enterococcus faecium. Additional culture obtained with new drain placement grew E. coli. Aspergillus also came back on the culture after the patient was discharged, but this is likely a contaminant as we recently had a known lab contamination. CT scan completed 03/29/2018 showed moderate volume of fluid in the pelvis and along the mesentery with subacute blood. Repeat CT of the abdomen and pelvis completed 04/01/18 showed a complex fluid collection within the pelvis, here unchanged in size and the density continued to decrease making the finding concerning for an organizing hematoma, although there was suggestion of possible capsule formation, and the possibility of an abscess should be considered. She also had some increasing right-sided hydronephrosis, but presumably from compression of the distal right ureteral compression. Status post CT-guided placement of abdominal abscess drainage catheter on by interventional radiology. No cultures were obtained at the time of catheter placement, but pathology was negative for malignancy. Culture obtained on 04/10/18 positive for and or coccus fascia, staph epi, and 2 strains of Escherichia coli. Repeat CT scan on 04/12/18 showed a large complex appearing fluid collection likely representing an abscess measuring approximately 17 x 11 x 8 cm in size and appears somewhat decreased in size when compared to the previous examination , however a large amount of fluid remained. Additional repeat CAT scan completed 04/19/18 showed complex large abscess in the lower abdomen and pelvis, unchanged in appearance and only slightly decreased in the size of the large abscess compared to prior examination, possibly secondary to multi loculation with a large amount of fluid remaining in the abscess. New drain placed in the abscess 04/19/18. Repeat CT scan 04/26/18 with PO contrast shows minimal improvement in the intra- abdominal abscess, likely secondary to multiple loculations. No surgical recommendations from the surgery team at that time. Repeat CT of the abdomen and pelvis showed that the pelvic abscess had decreased in size, but was still there. New CT scan completed 06/17/18 showed resolution of the abscess. Recommend IR consult to remove drains. Discontinue Daptomycin and Zosyn and observe. We will sign off. Feel free to consult us for any further questions or recommendations. (2) Pleural effusion Current Visit: Yes Status: Acute (3) H/O prosthetic heart valve Current Visit: No Status: Chronic (4) Hypertension Current Visit: No Status: Chronic Qualifiers: Hypertension type: essential hypertension Qualified Code(s): I10 - Essential (primary) hypertension (5) Legally blind Current Visit: No Status: Chronic (6) Obesity (BMI 30-39.9) Current Visit: No Status: Chronic (7) Diarrhea Current Visit: No Status: Resolved Qualifiers: Diarrhea type: unspecified type Qualified Code(s): R19.7 - Diarrhea, unspecified - Subjective Interval history: Patient seen and examined. Laying in bed. Unchanged clinically. Review of system is unremarkable but she is not the best historian. Vital signs reviewed, afebrile. Hemodynamically stable. Labs reviewed and cultures reviewed. Infect Dis PN-Objective Data - Labs CBC & Chem 7: 06/18/18 03:59 06/18/18 03:59 Labs: Laboratory Results - last 24 hr 06/17/18 06/18/18 06/18/18 17:51 03:59 03:59 WBC 7.2 RBC 2.57 L Hgb 7.5 L D Hct 25.3 L MCV 98.4 MCH 29.2 MCHC 29.6 L RDW 19.3 H Plt Count 105 L MPV 10.0 Immature Gran % 0.6 Seg Neutrophils % 80.7 Lymphocytes % 11.9 Monocytes % 4.9 Eosinophils % 1.8 Basophils % 0.1 Neutrophils # 5.8 Lymphocytes # 0.9 Monocytes # 0.4 Eosinophils # 0.1 Basophils # 0.0 Nucleated RBCs/100 WBC 0.6 H Sodium 139 140 Potassium 4.1 4.4 Chloride 112 H 113 H Carbon Dioxide 20 L 20 L BUN 9 10 Creatinine 1.08 1.07 Est GFR ( Amer) > 60 > 60 Est GFR (Non-Af Amer) 50 L 50 L BUN/Creatinine Ratio 8 9 Glucose 97 87 Calculated Osmolality 287 288 Calcium 9.2 8.9 Magnesium 1.6 Urine Color Urine Clarity Urine pH Ur Specific [place] Urine Protein Urine Glucose (UA) Urine Ketones Urine Blood Urine Nitrite Urine Bilirubin Urine Urobilinogen Ur Leukocyte Esterase Urine Microscopic RBC Urine Microscopic WBC Ur Squamous Epith Cells Urine Bacteria Urine Yeast Ur Culture Indicated? 06/18/18 08:10 WBC RBC Hgb Hct MCV MCH MCHC RDW Plt Count MPV Immature Gran % Seg Neutrophils % Lymphocytes % Monocytes % Eosinophils % Basophils % Neutrophils # Lymphocytes # Monocytes # Eosinophils # Basophils # Nucleated RBCs/100 WBC Sodium Potassium Chloride Carbon Dioxide BUN Creatinine Est GFR ( Amer) Est GFR (Non-Af Amer) BUN/Creatinine Ratio Glucose Calculated Osmolality Calcium Magnesium Urine Color Yellow Urine Clarity Hazy A Urine pH 5.5 Ur Specific [place] 1.026 H Urine Protein 100 H Urine Glucose (UA) Normal Urine Ketones Negative Urine Blood Moderate H Urine Nitrite Negative Urine Bilirubin Negative Urine Urobilinogen Normal Ur Leukocyte Esterase Large H Urine Microscopic RBC 0-3 Urine Microscopic WBC 30-50 H Ur Squamous Epith Cells Few Urine Bacteria Few Urine Yeast Moderate H Ur Culture Indicated? YES A Cultures: Cultures 06/17/18 18:13 Blood Culture - Preliminary Peripheral Venipuncture Culture is incubating and being continuously monitored for growth. Final report to follow. 06/17/18 18:07 Blood Culture - Preliminary Peripheral Venipuncture Culture is incubating and being continuously monitored for growth. Final report to follow. Serology 06/18/18 06/17/18 Range/Units 08:10 13:40 Urine Color Yellow (Yellow) Urine Clarity Hazy A (Clear) Urine pH 5.5 (5.0-8.0) pH Units Ur Specific [place] 1.026 H (1.010-1.025) Urine Protein 100 H (Neg-Trace) mg/dL Urine Glucose (UA) Normal (Normal) mg/dL Urine Ketones Negative (Negative) mg/dL Urine Blood Moderate H (Negative) Urine Nitrite Negative (Negative) Urine Bilirubin Negative (Negative) Urine Urobilinogen Normal (Normal) mg/dL Ur Leukocyte Esterase Large H (Negative) Urine Microscopic RBC 0-3 (0-3) per hpf Urine Microscopic WBC 30-50 H (0-3) per hpf Ur Squamous Epith Cells Few (None-Few) per lpf Urine Bacteria Few (None-Few) per hpf Urine Yeast Moderate H (None Seen) per hpf Ur Culture Indicated? YES A (NO) Stl C. cayetanensis PCR Not detected (Not detect) Stool Rotavirus A PCR Not detected (Not detect) Stl Adenov F 40/41 PCR Not detected (Not detect) Stool Astrovirus (PCR) Not detected (Not detect) Stool Campylobacter PCR Not detected (Not detect) Stl C. diff Tox A/B PCR Not detected (Not detect) Stool Cryptosporidium PCR Not detected (Not detect) Stl Sh Tox Pr E STEC PCR Not detected (Not detect) Stool E coli O157 PCR Not detected (Not detect) Stl Enterotoxigenic E PCR Not detected (Not detect) Stool EPEC (PCR) Not detected (Not detect) Stool EAEC (PCR) Not detected (Not detect) Stl E. histolytica PCR Not detected (Not detect) Stool Giardia Lamblia PCR Not detected (Not detect) Stool Salmonella PCR Not detected (Not detect) Stool Sapovirus (PCR) Not detected (Not detect) Stl P. shigelloides PCR Not detected (Not detect) Stl Shigella/EIEC PCR Not detected (Not detect) St Y.enterocolitica PCR Not detected (Not detect) Stool Vibrio (PCR) Not detected (Not detect) Stl Vibrio cholerae PCR Not detected (Not detect) Stl Norovirus GI/GII PCR Not detected (Not detect) Stl GI Panel (PCR) Com See below Exam - Constitutional Vitals: Temp Pulse Resp BP Pulse Ox 98.4 F 94 15 125/81 99 06/18/18 14:14 06/18/18 14:14 06/18/18 14:14 06/18/18 14:14 06/18/18 09:55 General appearance: no acute distress, no febrile - Respiratory Respiratory exam: Present: CTAB. Absent: wheezes - Cardiovascular Cardiovascular exam: Present: RRR, +S1, +S2 - GI/Abdominal GI/Abdominal exam: Present: soft. Absent: tenderness Consult Discharge Plan - Plan Referrals: Lokesh Cooper MD [Primary Care Provider] -
[2018-06-18] MEDS: levETIRAcetam 250 MG TABLET PO SCH (21:16)
[2018-06-19] MEDS: Budesonide/Formoterol 160/4.5 1 PUFF INH IH SCH ×2 (07:39→21:47)
[2018-06-19] MEDS: *HR* Amiodarone 200 MG TABLET PO SCH (08:31)
[2018-06-19] MEDS: levETIRAcetam 250 MG TABLET PO SCH ×2 (08:31→20:46)
[2018-06-19] MEDS: Aspirin Enteric Coated 81 MG Tablet PO SCH (08:32)
[2018-06-19] MEDS: Furosemide 40 MG/4 ML VIAL IVP SCH (08:32)
[2018-06-19] MEDS: *HR* Heparin 5,000 UNIT/ML VIAL SQ SCH ×2 (08:32→14:52)
--- NOTE | 2018-06-19 09:52 | Internal Med Progress Note ---
Hospitalist Progress Note - Encounter Date of Encounter: 06/19/18 Time of Encounter: 09:45 - Exam Vitals: Temp Pulse Resp BP Pulse Ox 97.6 F 92 16 117/78 96 06/19/18 07:10 06/19/18 07:10 06/19/18 07:39 06/19/18 07:10 06/19/18 07:39 Exam: Constitutional: No acute distress, Alert Psych: AAO x 3 however seems confused at times HEENT: NCAT, EOMI Neck: supple Derm: multiple eccymoses on bilateral upper extremities and abodmen Cardio: Irregularly irregular with controlled rate in low 90s, +s1s2 Resp: decreased breath sounds in bases; no wheezing Abd: soft, several nodules from subcutaneous heparin injections, 2 KARAN drains in left lower quadrant without significant surrounding erythema; they appear to be draining scant serous fluid at this time, BS positive Extremities: 3+ pitting edeam with anasarca present extending to abodmen Neuro: no focal deficits appreciated Lymph: no cervical denopahty apprecitated - Assessment and Plan (1) Encephalopathy Current Visit: Yes Status: Acute Assessment and Plan: Unclear etiology -Likely toxic metabolic encephalopathy presumably from hypoxia vs infection -Urine cultures growing yeast. Ecncephalopathy possibly 2/2 fungal UTI. Started on fluconazole. Follow up sensitivities (2) Acute and chronic respiratory failure with hypoxia Current Visit: Yes Status: Acute Assessment and Plan: -Per report the patient was hypoxic in the emergency department requiring higher than normal supplemental oxygen -Currently on home dose of 2 L -Unclear etiology; patient with interval increase in left pleural effusion now with apparent loculations; however this is not of significant size and may not be contributing to her respiratory failure -Patient does have recent history of what appears to be unexplained respiratory failure requiring intubation last admission Possibly secondary to acute worsening of chronic diastolic CHF vs loculated pleural effusion, [employer] Pulmonary following and plan for possible CT guided drainage (3) Congestive heart failure Current Visit: No Status: Chronic Assessment and Plan: -Acute worsening of chronic congestive heart failure with diastolic dysfunction -Started on lasix 40mg IV daily (4) Loculated pleural effusion Current Visit: Yes Status: Acute Assessment and Plan: Bilateral pleural effusions -Small right pleural stable pleural effusion -Enlarging left newly loculated pleural effusion however this remained small -Pulmonology following and appreciate recs. Plan for possible CT guided drainage (5) Intra-abdominal abscess post-procedure Current Visit: Yes Status: Acute Assessment and Plan: -s/p appendectomy 03/10/18 - was on fdc abx with Zosyn and Daptomycin -CT abd/pelvis today shows near resolution of abcess/hematoma Seen by ID and recommend drain removal and discontinuation of antibiotics. s/p drain removal by IR (6) Obesity (BMI 30-39.9) Current Visit: No Status: Chronic Assessment and Plan: -Continue lifestyle modification (7) Metabolic acidosis Current Visit: Yes Status: Acute Assessment and Plan: -mild non anion gap acidosis -likely 2/2 bicarb losses with diarrhea -pt has intermitent diarrhea and started again today -stool studies sent -will follow bmp (8) Thrombocytopenia Current Visit: Yes Status: Acute Assessment and Plan: -Appears chronic and stable over the last5 weeks; possiblly related to her antibiotics -platelets 100K now; has been 93-115K over last 5 weeks -will monitor (9) Chronic indwelling Parks catheter Current Visit: Yes Status: Acute Assessment and Plan: -doubt infection with current abx but with encephalopathy will get UA -ID consulted (10) CKD (chronic kidney disease) stage 3, GFR 30-59 ml/min Current Visit: Yes Status: Acute Assessment and Plan: -Creat improved from baseline today -repeat bmp pending -watch renal function and dose abx appropirately (11) Superficial thrombophlebitis of upper extremity Current Visit: Yes Status: Acute Assessment and Plan: -noted on past admission -pt with anasarca but no unsymmetrical swelling of either upper or lower extremity (12) Legally blind Current Visit: No Status: Chronic Assessment and Plan: -stable (13) Anemia Current Visit: No Status: Acute Assessment and Plan: Likely secondary to chronic disease. Monitor hemoglobin. No acute indication to transfuse (14) DVT prophylaxis Current Visit: Yes Status: Acute Assessment and Plan: -Subcutaneous heparin - Time Spent with Patient Total time spent is greater than 50% in coordination of care (as documented) at patient's floor/unit and/or counseling patient: Internal Medicine: Result - Labs CBC & Chem 7: 06/18/18 03:59 06/18/18 03:59 - ABG Interpretation ABG results: ABG ABG pH 7.31 pH Units (7.32-7.45) L 06/17/18 15:22 ABG pCO2 43 mmHg (35-45) 06/17/18 15:22 ABG pO2 83 mmHg (85-104) L 06/17/18 15:22 ABG O2 Saturation 95 % (95-98) 06/17/18 15:22 Consult Discharge Plan - Plan Referrals: Lokesh Cooper MD [Primary Care Provider] - (3) Congestive heart failure Qualifiers: Heart failure type: diastolic Heart failure chronicity: chronic Qualified Code(s): I50.32 - Chronic diastolic (congestive) heart failure (11) Superficial thrombophlebitis of upper extremity Qualifiers: Laterality: left Qualified Code(s): I80.8 - Phlebitis and thrombophlebitis of other sites (13) Anemia Qualifiers: Anemia type: unspecified type Qualified Code(s): D64.9 - Anemia, unspecified
[2018-06-19] MEDS: Fluconazole 200 MG/100 ML 200 MG/100 ML BAG IVPB SCH (14:51)
[2018-06-19] MEDS: Loratadine 10 MG TABLET PO SCH (14:56)
[2018-06-19] MEDS: Fluticasone Propionate Nasal 50 MCG/SPRAY BOTTLE NS SCH (15:00)
[2018-06-20] MEDS: *HR* Heparin 5,000 UNIT/ML VIAL SQ SCH ×3 (00:42→15:48)
[2018-06-20 06:34] LABS: Basophils % 0.2 %; Eosinophils # 0.1 K/mcL (0.0-0.6); Hematocrit 27.5 % (35.3-44.9); Hemoglobin 8.1 g/dL (11.5-15.4); Immature Granulocytes % 0.7 % (0-4); Lymphocytes # 0.8 K/mcL (0.6-4.6); Lymphocytes % 15.6 %; Mean Corpuscular HGB Conc 29.5 g/dL (31.6-35.5); Mean Corpuscular Hemoglobin 28.9 pg (28.0-33.3); Mean Corpuscular Volume 98.2 fL (83.0-100.0); Mean Platelet Volume 10.5 fL (9.4-12.4); Monocytes # 0.3 K/mcL (0.0-1.3); Monocytes % 5.4 %; Neutrophils # 4.1 K/mcL (1.6-8.9); Nucleated Red Blood Cells 0.6 /100 WBC (0); Platelet Count 142 K/mcL (140-400); Red Cell Distribution Width 18.6 % (11.5-14.5); Segmented Neutrophils % 76.1 %
[2018-06-20 07:00] LABS: Calcium 8.9 mg/dL (8.6-10.3); Magnesium 1.5 mg/dL (1.6-2.6); Phosphorous 3.2 mg/dL (2.7-4.5)
[2018-06-20] MEDS: Budesonide/Formoterol 160/4.5 1 PUFF INH IH SCH ×2 (07:48→21:32)
--- NOTE | 2018-06-20 08:47 | Internal Med Progress Note ---
Hospitalist Progress Note - Encounter Date of Encounter: 06/20/18 Time of Encounter: 08:45 - Exam Vitals: Temp Pulse Resp BP Pulse Ox 97.1 F L 94 16 109/78 98 06/20/18 06:56 06/20/18 06:56 06/20/18 07:55 06/20/18 06:56 06/20/18 07:55 Exam: Constitutional: No acute distress, Alert Psych: AAO x 3 however seems confused at times HEENT: NCAT, EOMI Neck: supple Derm: multiple eccymoses on bilateral upper extremities and abodmen Cardio: Irregularly irregular with controlled rate in low 90s, +s1s2 Resp: decreased breath sounds in bases; no wheezing Abd: soft, several nodules from subcutaneous heparin injections, 2 KARAN drains in left lower quadrant without significant surrounding erythema; they appear to be draining scant serous fluid at this time, BS positive Extremities: 3+ pitting edeam with anasarca present extending to abodmen Neuro: no focal deficits appreciated Lymph: no cervical denopahty apprecitated - Assessment and Plan (1) Encephalopathy Current Visit: Yes Status: Acute Assessment and Plan: Unclear etiology -Likely toxic metabolic encephalopathy presumably from hypoxia vs infection -Urine cultures growing yeast. Ecncephalopathy possibly 2/2 fungal UTI. Started on fluconazole. Follow up sensitivities Pt improved this am (2) Acute and chronic respiratory failure with hypoxia Current Visit: Yes Status: Acute Assessment and Plan: -Per report the patient was hypoxic in the emergency department requiring higher than normal supplemental oxygen -Currently on home dose of 2 L -Unclear etiology; patient with interval increase in left pleural effusion now with apparent loculations; however this is not of significant size and may not be contributing to her respiratory failure -Patient does have recent history of what appears to be unexplained respiratory failure requiring intubation last admission Possibly secondary to acute worsening of chronic diastolic CHF vs loculated pleural effusion, will [place] [employer] Pulmonary following and plan for possible CT guided drainage (3) Congestive heart failure Current Visit: No Status: Chronic Assessment and Plan: -Acute worsening of chronic congestive heart failure with diastolic dysfunction -Started on lasix 40mg IV daily (4) Loculated pleural effusion Current Visit: Yes Status: Acute Assessment and Plan: Bilateral pleural effusions -Small right pleural stable pleural effusion -Enlarging left newly loculated pleural effusion however this remained small -Pulmonology following and appreciate recs. Plan for possible CT guided drainage (5) Intra-abdominal abscess post-procedure Current Visit: Yes Status: Acute Assessment and Plan: -s/p appendectomy 03/10/18 - was on intermediate project manager abx with Zosyn and Daptomycin -CT abd/pelvis on this admission showed near resolution of abcess/hematoma Seen by ID and recommend drain removal and discontinuation of antibiotics. s/p drain removal by IR on 06/18 (6) Obesity (BMI 30-39.9) Current Visit: No Status: Chronic Assessment and Plan: -Continue lifestyle modification (7) Thrombocytopenia Current Visit: Yes Status: Acute Assessment and Plan: -Appears chronic and stable over the last5 weeks; possiblly related to her antibiotics -platelets 100K now; has been 93-115K over last 5 weeks -will monitor (8) Chronic indwelling Parks catheter Current Visit: Yes Status: Acute Assessment and Plan: -doubt infection with current abx but with encephalopathy will get UA -ID consulted (9) CKD (chronic kidney disease) stage 3, GFR 30-59 ml/min Current Visit: Yes Status: Acute Assessment and Plan: -Creat improved from baseline today -repeat bmp pending -watch renal function and dose abx appropirately (10) Superficial thrombophlebitis of upper extremity Current Visit: Yes Status: Acute Assessment and Plan: -noted on past admission -pt with anasarca but no unsymmetrical swelling of either upper or lower extremity (11) Legally blind Current Visit: No Status: Chronic Assessment and Plan: -stable (12) Anemia Current Visit: No Status: Acute Assessment and Plan: Likely secondary to chronic disease. Monitor hemoglobin. No acute indication to transfuse (13) DVT prophylaxis Current Visit: Yes Status: Acute Assessment and Plan: -Subcutaneous heparin - Time Spent with Patient Total time spent is greater than 50% in coordination of care (as documented) at patient's floor/unit and/or counseling patient: Internal Medicine: Result - Labs CBC & Chem 7: 06/20/18 05:21 06/20/18 05:21 Labs: Short CBC 06/20/18 Range/Units 05:21 WBC 5.4 (4.3-11.1) K/mcL Hgb 8.1 L (11.5-15.4) g/dL Hct 27.5 L (35.3-44.9) % Plt Count 142 (140-400) K/mcL Neutrophils # 4.1 (1.6-8.9) K/mcL BMP 06/20/18 05:21 Sodium 139 Potassium 4.0 Chloride 109 H Carbon Dioxide 25 BUN 11 Creatinine 1.16 Glucose 85 Calcium 8.9 - ABG Interpretation ABG results: ABG ABG pH 7.31 pH Units (7.32-7.45) L 06/17/18 15:22 ABG pCO2 43 mmHg (35-45) 06/17/18 15:22 ABG pO2 83 mmHg (85-104) L 06/17/18 15:22 ABG O2 Saturation 95 % (95-98) 06/17/18 15:22 Consult Discharge Plan - Plan Referrals: Lokesh Cooper MD [Primary Care Provider] - (3) Congestive heart failure Qualifiers: Heart failure type: diastolic Heart failure chronicity: chronic Qualified Code(s): I50.32 - Chronic diastolic (congestive) heart failure (10) Superficial thrombophlebitis of upper extremity Qualifiers: Laterality: left Qualified Code(s): I80.8 - Phlebitis and thrombophlebitis of other sites (12) Anemia Qualifiers: Anemia type: unspecified type Qualified Code(s): D64.9 - Anemia, unspecified
[2018-06-20] MEDS: Fluconazole 200 MG/100 ML 200 MG/100 ML BAG IVPB SCH (08:51)
[2018-06-20] MEDS: Furosemide 40 MG/4 ML VIAL IVP SCH (08:55)
[2018-06-20] MEDS: levETIRAcetam 250 MG TABLET PO SCH ×2 (08:57→21:01)
[2018-06-20] MEDS: Aspirin Enteric Coated 81 MG Tablet PO SCH (08:57)
[2018-06-20] MEDS: *HR* Amiodarone 200 MG TABLET PO SCH (08:58)
[2018-06-20] MEDS: Fluticasone Propionate Nasal 50 MCG/SPRAY BOTTLE NS SCH (09:06)
[2018-06-21] MEDS: *HR* Heparin 5,000 UNIT/ML VIAL SQ SCH ×4 (00:21→23:25)
[2018-06-21 05:37] LABS: Basophils % 0.2 %; Eosinophils # 0.1 K/mcL (0.0-0.6); Eosinophils % 1.4 %; Hematocrit 26.1 % (35.3-44.9); Hemoglobin 7.9 g/dL (11.5-15.4); Immature Granulocytes % 0.8 % (0-4); Lymphocytes # 0.9 K/mcL (0.6-4.6); Lymphocytes % 17.1 %; Mean Corpuscular HGB Conc 30.3 g/dL (31.6-35.5); Mean Corpuscular Hemoglobin 29.6 pg (28.0-33.3); Mean Corpuscular Volume 97.8 fL (83.0-100.0); Mean Platelet Volume 10.3 fL (9.4-12.4); Monocytes # 0.4 K/mcL (0.0-1.3); Neutrophils # 3.8 K/mcL (1.6-8.9); Nucleated Red Blood Cells 0.6 /100 WBC (0); Platelet Count 139 K/mcL (140-400); Red Blood Count 2.67 M/mcL (3.82-4.97); Red Cell Distribution Width 18.6 % (11.5-14.5); Segmented Neutrophils % 73.5 %
[2018-06-21 06:01] LABS: Magnesium 1.5 mg/dL (1.6-2.6); Phosphorous 3.2 mg/dL (2.7-4.5)
[2018-06-21] MEDS: Budesonide/Formoterol 160/4.5 1 PUFF INH IH SCH ×2 (08:11→19:50)
[2018-06-21] MEDS: Aspirin Enteric Coated 81 MG Tablet PO SCH (08:53)
[2018-06-21] MEDS: levETIRAcetam 250 MG TABLET PO SCH ×2 (08:54→21:46)
[2018-06-21] MEDS: *HR* Amiodarone 200 MG TABLET PO SCH (08:54)
[2018-06-21] MEDS: Fluticasone Propionate Nasal 50 MCG/SPRAY BOTTLE NS SCH (08:56)
[2018-06-21] MEDS: Furosemide 40 MG/4 ML VIAL IVP SCH (09:43)
[2018-06-21] MEDS: Fluconazole 200 MG/100 ML 200 MG/100 ML BAG IVPB SCH (09:43)
--- NOTE | 2018-06-21 10:18 | Discharge Summary ---
Orders not resulted at time of discharge: Pending orders 06/17/18 17:14 Culture,Sputum with Gram Stain [RM] Routine 06/17/18 18:13 Culture,Blood [BC] Routine 06/18/18 08:10 Culture,Urine [RM] Stat 06/21/18 09:48 Chest Xray, 1 view [XR chest 1V] [XR] Routine 06/22/18 04:00 Basic Metabolic Panel AM 0400 CBC [Complete Blood Count] [HEME] AM 0400 Magnesium AM 0400 Phosphorous AM 0400 06/23/18 04:00 Basic Metabolic Panel AM 0400 CBC [Complete Blood Count] [HEME] AM 0400 Magnesium AM 0400 Phosphorous AM 0400 06/24/18 04:00 Basic Metabolic Panel AM 0400 CBC [Complete Blood Count] [HEME] AM 0400 Magnesium AM 0400 Phosphorous AM 0400 06/25/18 04:00 Basic Metabolic Panel AM 0400 CBC [Complete Blood Count] [HEME] AM 0400 Magnesium AM 0400 Phosphorous AM 0400 Date of Encounter: 06/21/18 Time of Encounter: 10:15 - Discharge Diagnosis (1) Encephalopathy Priority: Primary Status: Acute Assessment and Plan: 72 year old female who presented to the emergency department from nursing facility with difficulty in breathing and confusion. Patient recently admitted to the hospital for appendectomy and subsequently developed intra-abdominal pelvic abscess. The patient had a prolonged hospitalization at that time and was discharged to nursing facility on prolonged antibiotics including daptomycin and Zosyn. The patient had 2 KARAN drains placed during that hospitalization that are still in place. The patient was evaluated in the emergency department at [facility] and was communicated to myself and the patient was hypoxic and required higher than normal supplemental oxygen to maintain adequate pulse oximetry. The patient had a CT scan of her chest abdomen and pelvis which revealed a increasing left-sided pleural effusion that now has a loculated component as well as a small stable right-sided pleural effusion. The CAT scan of her abdomen revealed that there does not appear to currently be any remaining loculated abscess. Patient's CT scan of her brain was negative for any acute intracranial pathology. The patient also had an ABG which revealed a mild metabolic acidosis with appropriate respiratory compensation. She was initially assessed with acute encephalopathy of unclear etiology, possibly due to hypoxia vs infection. She had been on intermediate manager antibiotics at her halfway with daptomycin and zosyn for pelvic abscesses with e .coli wound cultures and VRE in the blood. On admission, these antibiotics were stopped per ID recs. She was also noted to have a small size loculated pleural effusion which was assessed by pulmonary and determined there was no need for thoracentesis, but may benefit from CT guided chest drainage in future. She also had pelvic drains in place that were removed by IR on this admission. She was monitored and therefore determined to have acute metabolic encephalopathy from hypoxia likely secondary to acute worsening of diastolic CHF and acute fungal UTI. Urine cultures were positive for yeast. She was diuresed with lasix and treated with IV fluconazole per ID recs when her urine came back positive for yeast, and she made a remarkable improvement. She will be discharged to complete a 2 week total course of oral fluconazole. She is stable for discharge but is however requesting discharge to a different F facility. filter worker has been notified and is on board. 35minutes was spent discharging this patient (2) Acute and chronic respiratory failure with hypoxia Priority: Primary Status: Acute Assessment and Plan: -Per report the patient was hypoxic in the emergency department requiring higher than normal supplemental oxygen -Currently on home dose of 2 L -Unclear etiology; patient with interval increase in left pleural effusion now with apparent loculations; however this is not of significant size and may not be contributing to her respiratory failure -Patient does have recent history of what appears to be unexplained respiratory failure requiring intubation last admission Possibly secondary to acute worsening of chronic diastolic CHF vs loculated pleural effusion, will diurese and [employer] Pulmonary following and plan for possible CT guided drainage (3) Congestive heart failure Priority: Primary Status: Chronic Qualifiers: Heart failure type: diastolic Heart failure chronicity: chronic Qualified Code(s): I50.32 - Chronic diastolic (congestive) heart failure (4) Loculated pleural effusion Priority: Primary Status: Acute (5) Intra-abdominal abscess post-procedure Priority: Primary Status: Acute (6) Obesity (BMI 30-39.9) Priority: Secondary Status: Chronic (7) Thrombocytopenia Priority: Secondary Status: Acute (8) Chronic indwelling Parks catheter Priority: Secondary Status: Acute (9) CKD (chronic kidney disease) stage 3, GFR 30-59 ml/min Priority: Secondary Status: Acute (10) Superficial thrombophlebitis of upper extremity Priority: Secondary Status: Acute Qualifiers: Laterality: left Qualified Code(s): I80.8 - Phlebitis and thrombophlebitis of other sites (11) Legally blind Priority: Secondary Status: Chronic (12) Anemia Priority: Secondary Status: Acute Qualifiers: Anemia type: unspecified type Qualified Code(s): D64.9 - Anemia, unspecified (13) DVT prophylaxis Priority: Secondary Status: Acute Hospital course: Ms. Barber is a 72 year old female - Time Spent with Patient Total time spent providing and/or coordinating discharge services: - Discharge Medications Prescriptions: Amiodarone [Cordarone] 200 mg PO DAILY 30 Days #30 tablet Fluconazole [Diflucan] 200 mg PO DAILY 11 Days #11 tab Furosemide [Lasix] 40 mg PO DAILY 30 Days #60 tab Home Medications: Cyclosporine [Restasis] 1 drop BOTH EYES BID 04/30/15 [History] Potassium Chloride 20 meq PO BID 06/19/16 [History] Calcitriol [Rocaltrol] 0.25 mcg PO DAILY 03/20/17 [History] Albuterol Sulfate [Albuterol Inhaler] 2 puff IH Q4HR PRN 08/27/17 [History] Esomeprazole Magnesium [Nexium] 40 mg PO DAILY 10/06/17 [History] Aspirin Enteric Coated [Aspirin EC] 81 mg PO DAILY tablet. 11/02/17 [Rx] Docusate [Colace] 100 mg PO BID PRN capsule 12/02/17 [Rx] Fluticasone Propionate Nasal [Flonase] 50 mcg NS DAILY bottle 12/02/17 [Rx] Quetiapine Fumarate [Seroquel] 50 mg PO HS 03/09/18 [History] Fluticasone/Vilanterol [Breo Ellipta 100-25 Mcg INH] 1 puff IH DAILY 03/29/18 [ History] Loperamide [Imodium] 2 mg PO Q6H PRN 03/29/18 [History] Ondansetron [Zofran] 8 mg PO Q6H PRN 03/29/18 [History] Acetaminophen [Tylenol] 650 mg PO Q4HR PRN #60 tablet 04/29/18 [Rx] Bisacodyl [Dulcolax] 10 mg RC DAILY PRN supp.rect 04/29/18 [Rx] Calcium Carbonate [Tums] 1,000 mg PO Q4HR PRN #30 tab.chew 04/29/18 [Rx] Ferrous Sulfate 325 mg PO BIDWM #60 tablet 04/29/18 [Rx] Loratadine [Claritin] 10 mg PO Q48H #0 04/29/18 [Rx] Metoprolol [Lopressor] 12.5 mg PO BID #30 tablet 04/29/18 [Rx] 0.9 % Sodium Chloride [Normal Saline Flush] 10 ml IVP Q8H syringe 05/20/18 [Rx] Levothyroxine [Synthroid] 112 mcg PO DAILY 06/17/18 [History] LevETIRAcetam [Keppra] 500 mg PO BID 06/18/18 [History] Amiodarone [Cordarone] 200 mg PO DAILY 30 Days #30 tablet 06/21/18 [Rx] Fluconazole [Diflucan] 200 mg PO DAILY 11 Days #11 tab 06/21/18 [Rx] Furosemide [Lasix] 40 mg PO DAILY 30 Days #60 tab 06/21/18 [Rx] Allergies/Adverse Reactions: 3 Allergy/AdvReac Type Severity Reaction Status Date / Time ciprofloxacin [From Cipro] Allergy Hives Verified 03/29/18 21:41 meperidine [From Demerol] AdvReac Vomiting Verified 03/29/18 21:41 Date of admission: 06/17/18 13:40 Primary care physician: Lokesh Cooper MD Consults: 06/17/18 13:32 Consult to Infectious Diseases [CONS] Routine Consulting Provider: Infectious Disease Apple Reason for Consult: Follows with ID; still on Dapto and zosyn for intra abdmoinal abcess; appears resolved now; need for further abx? Call Completed: Yes 06/17/18 13:46 Consult to Pulmonology [CONS] Routine Consulting Provider: Pulm Crit Care & Sleep Apple Reason for Consult: eval of loculated pleural effusion with worsening hypoxia Call Completed: Yes 06/18/18 09:24 Consult to Interventional Radiology [CONS] Routine Consulting Provider: Radiology Interventional Cols Reason for Consult: remove abdominal drains Call Completed: No 06/18/18 12:24 Consult to Quality Assurance Manager [CONS] Routine Reason for SW Consult: From Froy DIAZ 06/19/18 10:27 Consult to Palliative Care [CONS] Routine Comment: Consulting Provider: Palliative Care Apple Reason for Consult: goals of care, advance directives Call Completed: Yes - Constitutional Vitals: Temp Pulse Resp BP Pulse Ox 97.6 F 93 14 118/78 98 06/21/18 07:31 06/21/18 07:31 06/21/18 08:11 06/21/18 07:31 06/21/18 09:28 Exam: Constitutional: No acute distress, Alert Psych: AAO x 3 however seems confused at times HEENT: NCAT, EOMI Neck: supple Derm: multiple eccymoses on bilateral upper extremities and abodmen Cardio: Irregularly irregular with controlled rate in low 90s, +s1s2 Resp: decreased breath sounds in bases; no wheezing Abd: soft, several nodules from subcutaneous heparin injections, 2 KARAN drains in left lower quadrant without significant surrounding erythema; they appear to be draining scant serous fluid at this time, BS positive Extremities: 3+ pitting edeam with anasarca present extending to abodmen Neuro: no focal deficits appreciated Lymph: no cervical denopahty apprecitated - Patient Status Disposition: Transfer SNF Condition: Good - Discharge Instructions Follow Up With: Lokesh Cooper MD [Primary Care Provider] -
--- NOTE | 2018-06-21 10:24 | Physician Discharge Referral ---
- Diagnosis (1) Encephalopathy Priority: Primary Status: Acute (2) Acute and chronic respiratory failure with hypoxia Priority: Primary Status: Acute (3) Congestive heart failure Priority: Primary Status: Chronic (4) Loculated pleural effusion Priority: Primary Status: Acute (5) Intra-abdominal abscess post-procedure Priority: Primary Status: Acute (6) Obesity (BMI 30-39.9) Priority: Primary Status: Chronic (7) Thrombocytopenia Priority: Primary Status: Acute (8) Chronic indwelling Parks catheter Status: Acute (9) CKD (chronic kidney disease) stage 3, GFR 30-59 ml/min Status: Acute (10) Superficial thrombophlebitis of upper extremity Status: Acute (11) Legally blind Status: Chronic (12) Anemia Status: Acute (13) DVT prophylaxis Status: Acute - Transfer Medications Prescriptions: Amiodarone [Cordarone] 200 mg PO DAILY 30 Days #30 tablet Fluconazole [Diflucan] 200 mg PO DAILY 11 Days #11 tab Home Medications: Cyclosporine [Restasis] 1 drop BOTH EYES BID 04/30/15 [History] Potassium Chloride 20 meq PO BID 06/19/16 [History] Calcitriol [Rocaltrol] 0.25 mcg PO DAILY 03/20/17 [History] Albuterol Sulfate [Albuterol Inhaler] 2 puff IH Q4HR PRN 08/27/17 [History] Esomeprazole Magnesium [Nexium] 40 mg PO DAILY 10/06/17 [History] Aspirin Enteric Coated [Aspirin EC] 81 mg PO DAILY tablet. 11/02/17 [Rx] Docusate [Colace] 100 mg PO BID PRN capsule 12/02/17 [Rx] Fluticasone Propionate Nasal [Flonase] 50 mcg NS DAILY bottle 12/02/17 [Rx] Quetiapine Fumarate [Seroquel] 50 mg PO HS 03/09/18 [History] Fluticasone/Vilanterol [Breo Ellipta 100-25 Mcg INH] 1 puff IH DAILY 03/29/18 [ History] Loperamide [Imodium] 2 mg PO Q6H PRN 03/29/18 [History] Ondansetron [Zofran] 8 mg PO Q6H PRN 03/29/18 [History] Acetaminophen [Tylenol] 650 mg PO Q4HR PRN #60 tablet 04/29/18 [Rx] Bisacodyl [Dulcolax] 10 mg RC DAILY PRN supp.rect 04/29/18 [Rx] Calcium Carbonate [Tums] 1,000 mg PO Q4HR PRN #30 tab.chew 04/29/18 [Rx] Ferrous Sulfate 325 mg PO BIDWM #60 tablet 04/29/18 [Rx] Loratadine [Claritin] 10 mg PO Q48H #0 04/29/18 [Rx] Metoprolol [Lopressor] 12.5 mg PO BID #30 tablet 04/29/18 [Rx] 0.9 % Sodium Chloride [Normal Saline Flush] 10 ml IVP Q8H syringe 05/20/18 [Rx] Levothyroxine [Synthroid] 112 mcg PO DAILY 06/17/18 [History] LevETIRAcetam [Keppra] 500 mg PO BID 06/18/18 [History] Amiodarone [Cordarone] 200 mg PO DAILY 30 Days #30 tablet 06/21/18 [Rx] Fluconazole [Diflucan] 200 mg PO DAILY 11 Days #11 tab 06/21/18 [Rx] Allergies/Adverse Reactions: 3 Allergy/AdvReac Type Severity Reaction Status Date / Time ciprofloxacin [From Cipro] Allergy Hives Verified 03/29/18 21:41 meperidine [From Demerol] AdvReac Vomiting Verified 03/29/18 21:41 - Respiratory Orders Smoking Cessation: Smoking cessation has been advised. For more information, call the [place] Tobacco Quit Line at 4-361-EMIK-NOW. - Mobility Orders Chair - Rehabiliation Orders Rehab Orders: Evaluation for Physical Therapy - Diet Orders Cardiac CERTIFICATION: I certify that the transfer of the above named patient to an Extended Care Facility is necessary for the continuing treatment of the diagnosis listed. The above information is true and accurate reflection of patient's current condition. Confidential - Redisclosure prohibited without a patient's written consent.
--- NOTE | 2018-06-21 10:51 | Palliative - Consult Note ---
Date of Encounter: 06/21/18 Time of Encounter: 10:00 - Assessment and Plan (1) Goals of care, counseling/discussion Current Visit: Yes Status: Acute Assessment and plan: Patient alert but poor historian. States she desires to transition to different ECF. She currently resides at [facility]. She desires [facility] in [place]. I called Gabi in [facility] to report patients desires. Gabi states she will f/u on placement. Patient has Living Will at ECF. Called facility to have copy faxed. [facility] will fax document to [facility]. Discussed Code Status desires with patient. Patient states that she doesn't want to intubated but desires CPR. I explained procedure for CPR and airway management. Patient desires to think this over. Contact name listed in EMR is Sridhar Fernandez but patient reports that Sridhar was now. Attempted to call Aura Newman patients [id number]. and Home . Left message. Patient is to be DC'd today. Will add Living will to EMR. Patient remains Full Code. (2) Obesity (BMI 30-39.9) Current Visit: Yes Status: Chronic Assessment and plan: Patient with morbid obesity. Baseline performance status is bedridden. Patient with generalized edema and legally blind. She needs assistance with meals. Position for comfort, Turn every 2 hours and assess skin. Dietary following patient. (3) Legally blind Current Visit: No Status: Chronic (4) Acute exacerbation of chronic obstructive airways disease Current Visit: No Status: Acute Assessment and plan: Pulmonology following. (5) Intra-abdominal abscess post-procedure Current Visit: No Status: Acute Assessment and plan: Resolved. ID Infectious disease has signed off. Patient stable Qualifiers: Encounter type: subsequent encounter Qualified Code(s): T81.4XXD - Infection following a procedure, subsequent encounter; K65.1 - Peritoneal abscess Palliative-CN HPI - Data of Consult Patient: new to practice Consult date: 06/21/18 Requesting Physician: Karla Florez Primary Care Provider: Lokesh Cooper MD - Consult Narrative Palliative Care/Comfort Measures: Palliative care Reason for consult: Goals of Care History of present illness: This is a 72-year-old female with a past medical history of COPD, GERD, C Sylvia stage III, A. fib, s/p appendectomy who presented to the ER at [facility] with shortness of breath and confusion. most of the Hx is obtained from the records obtained from the [facility]. Initial workup was negative and head CT negative. Her UA was unremarkable. Patient ABG revealed mild metabolic acidosis with appropriate dressed decompensation. Chest CT was positive for right side pleural effusion and a small on the L side , along ground glass opacities in both lungs with concerns for interstitial edema. CT also showed third spacing of fluid. Pulmology seeing. Patient ia status post CT-guided placement of abdominal abscess drainage catheter on 04/06/18 by interventional radiology. New CT scan completed 06/17/18 showed resolution of the abscess. Recommend IR consult to remove drains. Discontinue Daptomycin and Zosyn and observe. This palliative care consult is for goals of care discussion. CC: Amanda Vazquez MD - Time Spent with Patient Time: Total time spent is greater than 50% in coordination of care (as documented) at patient's floor/unit and/or counseling patient: Past Med Surg Social Fam HX - Past Medical History Medical history: arthritis, asthma, atrial fibrillation, CHF, COPD, GERD, hyperlipidemia, hypertension, osteoporosis, renal disease, venous stasis, valvular heart disease, other Additional medical history: blind Psychiatric history: anxiety, depression - Past Surgical History Surgical History: cataract, cholecystectomy, heart valve replacement, herniorrhaphy, hysterectomy, knee replacement, orthopedic, other, sinus surgery , other Additional surgical history: lung surgery - right pleurodesis secondary to pleural effusions after cardiac surgery. "Ross" heart procedure- 1994 [facility] - Social History Smoking Status: Never smoker Smokeless Tobacco Status: No Alcohol use: none Drug use: none - Family History Father Adopted: No Family Member Ethnicity: Non- Living Status: Hx Family Cardiac Disorders: Yes (HD, Pig valve, HD) Hx Family Cancer: Yes (Cancer on lip) Hx Family GI Disorders: Yes (CKD) Hx Family Endocrine Disorder: Yes (Gallstones) Sister Family Member Ethnicity: Non- Living Status: Hx Family Endocrine Disorder: Yes (DM) Mother Adopted: No Family Member Ethnicity: Non- Living Status: Hx Family Cardiac Disorders: Yes (HD, Anemia) Medications and Allergies Cyclosporine [Restasis] 1 drop BOTH EYES BID 04/30/15 [History] Potassium Chloride 20 meq PO BID 06/19/16 [History] Calcitriol [Rocaltrol] 0.25 mcg PO DAILY 03/20/17 [History] Albuterol Sulfate [Albuterol Inhaler] 2 puff IH Q4HR PRN 08/27/17 [History] Esomeprazole Magnesium [Nexium] 40 mg PO DAILY 10/06/17 [History] Aspirin Enteric Coated [Aspirin EC] 81 mg PO DAILY tablet. 11/02/17 [Rx] Docusate [Colace] 100 mg PO BID PRN capsule 12/02/17 [Rx] Fluticasone Propionate Nasal [Flonase] 50 mcg NS DAILY bottle 12/02/17 [Rx] Quetiapine Fumarate [Seroquel] 50 mg PO HS 03/09/18 [History] Fluticasone/Vilanterol [Breo Ellipta 100-25 Mcg INH] 1 puff IH DAILY 03/29/18 [ History] Loperamide [Imodium] 2 mg PO Q6H PRN 03/29/18 [History] Ondansetron [Zofran] 8 mg PO Q6H PRN 03/29/18 [History] Acetaminophen [Tylenol] 650 mg PO Q4HR PRN #60 tablet 04/29/18 [Rx] Bisacodyl [Dulcolax] 10 mg RC DAILY PRN supp.rect 04/29/18 [Rx] Calcium Carbonate [Tums] 1,000 mg PO Q4HR PRN #30 tab.chew 04/29/18 [Rx] Ferrous Sulfate 325 mg PO BIDWM #60 tablet 04/29/18 [Rx] Loratadine [Claritin] 10 mg PO Q48H #0 04/29/18 [Rx] Metoprolol [Lopressor] 12.5 mg PO BID #30 tablet 04/29/18 [Rx] 0.9 % Sodium Chloride [Normal Saline Flush] 10 ml IVP Q8H syringe 05/20/18 [Rx] Levothyroxine [Synthroid] 112 mcg PO DAILY 06/17/18 [History] LevETIRAcetam [Keppra] 500 mg PO BID 06/18/18 [History] Amiodarone [Cordarone] 200 mg PO DAILY 30 Days #30 tablet 06/21/18 [Rx] Fluconazole [Diflucan] 200 mg PO DAILY 11 Days #11 tab 06/21/18 [Rx] Furosemide [Lasix] 40 mg PO DAILY 30 Days #60 tab 06/21/18 [Rx] 3 Allergy/AdvReac Type Severity Reaction Status Date / Time ciprofloxacin [From Cipro] Allergy Hives Verified 03/29/18 21:41 meperidine [From Demerol] AdvReac Vomiting Verified 03/29/18 21:41 All systems: reviewed and no additional remarkable complaints except as stated ( SOB, abdominal tenderness) - Constitutional Constitutional ROS PAL: chills, fatigue - EENT Additional comments: legally blind - Cardiovascular Cardiovascular ROS: dyspnea on exertion, edema, irregular heart rhythm, pedal edema - Respiratory Respiratory: dyspnea on exertion - Gastrointestinal Gastrointestinal: abdominal pain - Genitourinary Palliative ROS female: urinary urgency - Musculoskeletal Musculoskeletal ROS IM: muscle weakness - Neurological Neurological ROS: weakness - Psychiatric Psychiatric general PM: confusion Palliative Care-Exam - Constitutional Vitals: Temp Pulse Resp BP Pulse Ox 97.6 F 93 14 118/78 98 06/21/18 07:31 06/21/18 07:31 06/21/18 08:11 06/21/18 07:31 06/21/18 09:28 General appearance: Present: no acute distress - Head Head Exam: Present: atraumatic, normal inspection, normocephalic - Eye Eye exam: Present: PERRL Additional comments: Patient legally blind - ENT ENT exam: Present: mucous membranes moist - Expanded ENT Exam Mouth Exam: Present: moist - Respiratory Respiratory exam: Present: decreased breath sounds - Expanded Respiratory Exam Location: decreased breath sounds: Left, Right, Lower - Cardiovascular Cardiovascular exam: Present: +S1, +S2 - Expanded Cardiovascular Exam Type of murmur: Present: diastolic Intensity: 4/6 Peripheral pulses: 1+: Femoral (L) PM, Femoral (R) PM, Posterior Tibialis (L), Posterior Tibialis (R), Dorsalis Pedis (L) PM, Dorsalis Pedis (R) PM, 2+: Carotid (L) PM, Carotid (R) PM, Radial (L), Radial (R) - GI/Abdominal Exam GI/Abdominal exam: Present: normal bowel sounds, soft - Expanded GI/Abdominal Exam GI/Abdominal exam: Present: ascites - Rectal Rectal exam: Present: deferred - Catheter Type: Urethral (Parks) Additional comments: Clear yellow urine - Expanded Upper Extremities Exam Shoulder exam: Present: tenderness Upper Arm exam: Present: tenderness Elbow exam: Present: tenderness Forearm wrist exam: Present: tenderness Hand wrist exam: Present: tenderness - Back Exam Back exam: Present: tenderness - Neurological Exam Neurological exam: Present: alert, altered - Expanded Neurological Exam Coma Scale Eye Opening: Spontaneous Coma Scale Motor Response: Obeys Commands Coma Scale Verbal Response: Confused Coma Scale Total: 14 - Psychiatric Psychiatric exam: Present: flat affect - Skin Skin exam: Present: pallor, warm Additional comments: 2x2 x 2 to abdomen. Clean dry and intact Internal Medicine - CN: Reslt - Labs CBC & Chem 7: 06/21/18 05:20 06/21/18 05:20 Labs: Short CBC 06/21/18 Range/Units 05:20 WBC 5.2 (4.3-11.1) K/mcL Hgb 7.9 L (11.5-15.4) g/dL Hct 26.1 L (35.3-44.9) % Plt Count 139 L (140-400) K/mcL Neutrophils # 3.8 (1.6-8.9) K/mcL BMP 06/21/18 05:20 Sodium 137 Potassium 4.0 Chloride 106 Carbon Dioxide 25 BUN 11 Creatinine 1.17 Glucose 86 Calcium 9.0 - ABG Interpretation ABG results: ABG ABG pH 7.31 pH Units (7.32-7.45) L 06/17/18 15:22 ABG pCO2 43 mmHg (35-45) 06/17/18 15:22 ABG pO2 83 mmHg (85-104) L 06/17/18 15:22 ABG O2 Saturation 95 % (95-98) 06/17/18 15:22 - Impressions Impressions Chest X-Ray 06/21/18 09:48 IMPRESSION: Stable exam, given differences in modality, from prior CT chest, abdomen and pelvis 06/17/2018 with bilateral pleural effusions and bilateral streaky/patchy airspace opacities which may relate to atelectasis and/or infiltrates, left worse than right. Stable cardiomegaly. D/ / Kirt Pemberton MD / Kirt Pemberton MD Interpreting Provider: Kirt Pemberton MD Consult Discharge Plan - Plan Referrals: Lokesh Cooper MD [Primary Care Provider] - Prescriptions: Amiodarone [Cordarone] 200 mg PO DAILY 30 Days #30 tablet Fluconazole [Diflucan] 200 mg PO DAILY 11 Days #11 tab Furosemide [Lasix] 40 mg PO DAILY 30 Days #60 tab Palliative Quality Palliative Quality: Screen for Code Status: Yes, Screen for Goals of Care: Yes, Screen for Pain: Yes, If Pain Regimen Started, Initiate Bowel Regimen: Yes, Screen for Nausea/Vomitting: Yes Code Status: 06/17/18 13:40 Resuscitation Status: Active [RES] Routine Comment: Resuscitation Status: Full Code
[2018-06-21] MEDS: Loratadine 10 MG TABLET PO SCH (13:39)
[2018-06-22 08:25] LABS: Basophils % 0.2 %; Eosinophils # 0.1 K/mcL (0.0-0.6); Eosinophils % 1.5 %; Hemoglobin 8.2 g/dL (11.5-15.4); Lymphocytes # 0.8 K/mcL (0.6-4.6); Lymphocytes % 16.2 %; Mean Corpuscular HGB Conc 30.4 g/dL (31.6-35.5); Mean Corpuscular Hemoglobin 29.2 pg (28.0-33.3); Mean Corpuscular Volume 96.1 fL (83.0-100.0); Mean Platelet Volume 10.4 fL (9.4-12.4); Monocytes # 0.4 K/mcL (0.0-1.3); Monocytes % 7.5 %; Neutrophils # 3.8 K/mcL (1.6-8.9); Platelet Count 155 K/mcL (140-400); Red Blood Count 2.81 M/mcL (3.82-4.97); Red Cell Distribution Width 18.1 % (11.5-14.5); Segmented Neutrophils % 73.6 %
[2018-06-22 08:40] LABS: Sodium 135 mEq/L (136-145)
[2018-06-22 08:41] LABS: BUN/Creatinine Ratio 10 (6-26); Blood Urea Nitrogen 11 mg/dL (8-23); Calcium 9.3 mg/dL (8.6-10.3); Carbon Dioxide 26 mEq/L (23-29); Chloride 102 mEq/L (98-107); Glucose 90 mg/dL (70-105); Magnesium 1.7 mg/dL (1.6-2.6); Osmolality,Calculated 279 (280-300); Potassium 4.1 mEq/L (3.5-5.1); eGFR For Non-African Americans 50 (> 60)
[2018-06-22] MEDS: *HR* Heparin 5,000 UNIT/ML VIAL SQ SCH ×2 (08:41→17:28)
--- NOTE | 2018-06-22 08:41 | Event Note ---
Date of Encounter: 06/22/18 Time of Encounter: 08:40 Chart reviewed. Patient's discharge plan in place. Awaiting SW management for discharge to new detention. Gabi SW notified of need yesterday. Palliative care will sign off. Reconsult if further need arises.
[2018-06-22] MEDS: Furosemide 40 MG/4 ML VIAL IVP SCH (08:42)
[2018-06-22] MEDS: Budesonide/Formoterol 160/4.5 1 PUFF INH IH SCH ×2 (08:43→20:08)
[2018-06-22] MEDS: levETIRAcetam 250 MG TABLET PO SCH ×2 (08:43→21:32)
[2018-06-22] MEDS: Fluconazole 100 MG TABLET PO SCH (08:43)
[2018-06-22] MEDS: Aspirin Enteric Coated 81 MG Tablet PO SCH (08:43)
[2018-06-22] MEDS: *HR* Amiodarone 200 MG TABLET PO SCH (08:43)
[2018-06-22] MEDS: Fluticasone Propionate Nasal 50 MCG/SPRAY BOTTLE NS SCH (08:47)
--- NOTE | 2018-06-22 11:46 | Internal Med Progress Note ---
Hospitalist Progress Note - Encounter Date of Encounter: 06/22/18 Time of Encounter: 11:44 - Subjective Interval History: Patient is discharged on the waiting a Profore for the alf discharge and no new acute issues - Exam Vitals: Temp Pulse Resp BP Pulse Ox 97.7 F 90 19 135/81 100 06/22/18 10:40 06/22/18 10:40 06/22/18 10:40 06/22/18 10:40 06/22/18 10:40 Exam: Constitutional: No acute distress, Alert Psych: AAO x 3 however seems confused at times HEENT: NCAT, EOMI Neck: supple Derm: multiple eccymoses on bilateral upper extremities and abodmen Cardio: Irregularly irregular with controlled rate in low 90s, +s1s2 Resp: decreased breath sounds in bases; no wheezing Abd: soft, several nodules from subcutaneous heparin injections, 2 KARAN drains in left lower quadrant without significant surrounding erythema; they appear to be draining scant serous fluid at this time, BS positive Extremities: 3+ pitting edeam with anasarca present extending to abodmen Neuro: no focal deficits appreciated Lymph: no cervical denopahty apprecitated - Assessment and Plan (1) Legally blind Current Visit: No Status: Chronic (2) Acute exacerbation of chronic obstructive airways disease Current Visit: No Status: Acute Assessment and Plan: Patient clinically stable and within transferred to alf (3) COPD (chronic obstructive pulmonary disease) Current Visit: No Status: Chronic Assessment and Plan: Chronic and stable (4) Anemia Current Visit: No Status: Chronic - Time Spent with Patient Total time spent is greater than 50% in coordination of care (as documented) at patient's floor/unit and/or counseling patient: Internal Medicine: Result - Labs CBC & Chem 7: 06/22/18 06:35 06/22/18 06:35 Labs: Short CBC 06/22/18 Range/Units 06:35 WBC 5.2 (4.3-11.1) K/mcL Hgb 8.2 L (11.5-15.4) g/dL Hct 27.0 L (35.3-44.9) % Plt Count 155 (140-400) K/mcL Neutrophils # 3.8 (1.6-8.9) K/mcL BMP 06/22/18 06:35 Sodium 135 L Potassium 4.1 Chloride 102 Carbon Dioxide 26 BUN 11 Creatinine 1.08 Glucose 90 Calcium 9.3 - ABG Interpretation ABG results: ABG ABG pH 7.31 pH Units (7.32-7.45) L 06/17/18 15:22 ABG pCO2 43 mmHg (35-45) 06/17/18 15:22 ABG pO2 83 mmHg (85-104) L 06/17/18 15:22 ABG O2 Saturation 95 % (95-98) 06/17/18 15:22 Consult Discharge Plan - Plan Referrals: Lokesh Cooper MD [Primary Care Provider] - Prescriptions: Amiodarone [Cordarone] 200 mg PO DAILY 30 Days #30 tablet Fluconazole [Diflucan] 200 mg PO DAILY 11 Days #11 tab Furosemide [Lasix] 40 mg PO DAILY 30 Days #60 tab (3) COPD (chronic obstructive pulmonary disease) Qualifiers: COPD type: unspecified COPD Qualified Code(s): J44.9 - Chronic obstructive pulmonary disease, unspecified (4) Anemia Qualifiers: Anemia type: other cause Other causes of anemia: chronic disease, other Qualified Code(s): D63.8 - Anemia in other chronic diseases classified elsewhere
[2018-06-23] MEDS: *HR* Heparin 5,000 UNIT/ML VIAL SQ SCH ×4 (00:41→23:51)
[2018-06-23 03:55] LABS: Basophils % 0.2 %; Eosinophils # 0.1 K/mcL (0.0-0.6); Eosinophils % 1.4 %; Hematocrit 24.5 % (35.3-44.9); Hemoglobin 7.6 g/dL (11.5-15.4); Immature Granulocytes % 0.8 % (0-4); Lymphocytes # 0.8 K/mcL (0.6-4.6); Lymphocytes % 16.5 %; Mean Corpuscular Hemoglobin 29.5 pg (28.0-33.3); Monocytes # 0.3 K/mcL (0.0-1.3); Monocytes % 6.8 %; Neutrophils # 3.6 K/mcL (1.6-8.9); Platelet Count 130 K/mcL (140-400); Red Blood Count 2.58 M/mcL (3.82-4.97); Red Cell Distribution Width 18.2 % (11.5-14.5); Segmented Neutrophils % 74.3 %
[2018-06-23 04:17] LABS: BUN/Creatinine Ratio 9 (6-26); Blood Urea Nitrogen 9 mg/dL (8-23); Calcium 8.9 mg/dL (8.6-10.3); Carbon Dioxide 29 mEq/L (23-29); Chloride 101 mEq/L (98-107); Glucose 96 mg/dL (70-105); Magnesium 1.5 mg/dL (1.6-2.6); Osmolality,Calculated 277 (280-300); Potassium 4.1 mEq/L (3.5-5.1); Sodium 134 mEq/L (136-145); eGFR For Non-African Americans 54 (> 60)
[2018-06-23] MEDS: Budesonide/Formoterol 160/4.5 1 PUFF INH IH SCH ×2 (07:42→21:10)
[2018-06-23] MEDS: *HR* Amiodarone 200 MG TABLET PO SCH ×2 (09:05→09:37)
[2018-06-23] MEDS: Aspirin Enteric Coated 81 MG Tablet PO SCH ×2 (09:05→09:36)
[2018-06-23] MEDS: levETIRAcetam 250 MG TABLET PO SCH ×3 (09:05→21:10)
[2018-06-23] MEDS: Fluconazole 100 MG TABLET PO SCH ×2 (09:05→09:36)
[2018-06-23] MEDS: Furosemide 40 MG/4 ML VIAL IVP SCH (09:06)
[2018-06-23] MEDS: Fluticasone Propionate Nasal 50 MCG/SPRAY BOTTLE NS SCH (09:07)
--- NOTE | 2018-06-23 09:45 | Internal Med Progress Note ---
Hospitalist Progress Note - Encounter Date of Encounter: 06/23/18 Time of Encounter: 09:46 - Subjective Interval History: Patient is discharged on the waiting a Profore for the prison discharge and no new acute issues 06/23 patient seen and examined being fed breakfast appears comfortable still awaiting prison approval for discharge no new issues - Exam Vitals: Temp Pulse Resp BP Pulse Ox 97.7 F 89 14 102/58 100 06/23/18 07:32 06/23/18 07:32 06/23/18 07:42 06/23/18 07:32 06/23/18 07:42 Exam: Constitutional: No acute distress, Alert Psych: AAO x 3 however seems confused at times HEENT: NCAT, EOMI Neck: supple Derm: multiple eccymoses on bilateral upper extremities and abodmen Cardio: Irregularly irregular with controlled rate in low 90s, +s1s2 Resp: decreased breath sounds in bases; no wheezing Abd: soft, several nodules from subcutaneous heparin injections, 2 KARAN drains in left lower quadrant without significant surrounding erythema; they appear to be draining scant serous fluid at this time, BS positive Extremities: 3+ pitting edeam with anasarca present extending to abodmen Neuro: no focal deficits appreciated Lymph: no cervical denopahty apprecitated - Assessment and Plan (1) Legally blind Current Visit: No Status: Chronic Assessment and Plan: No new issues (2) Acute exacerbation of chronic obstructive airways disease Current Visit: No Status: Acute Assessment and Plan: Patient clinically stable and feel better (3) COPD (chronic obstructive pulmonary disease) Current Visit: No Status: Chronic (4) Anemia Current Visit: No Status: Chronic Assessment and Plan: Hemoglobin is stable - Time Spent with Patient Total time spent is greater than 50% in coordination of care (as documented) at patient's floor/unit and/or counseling patient: Internal Medicine: Result - Labs CBC & Chem 7: 06/23/18 03:30 06/23/18 03:30 Labs: Short CBC 06/23/18 Range/Units 03:30 WBC 4.9 (4.3-11.1) K/mcL Hgb 7.6 L (11.5-15.4) g/dL Hct 24.5 L (35.3-44.9) % Plt Count 130 L (140-400) K/mcL Neutrophils # 3.6 (1.6-8.9) K/mcL BMP 06/23/18 03:30 Sodium 134 L Potassium 4.1 Chloride 101 Carbon Dioxide 29 BUN 9 Creatinine 1.00 Glucose 96 Calcium 8.9 - ABG Interpretation ABG results: ABG ABG pH 7.31 pH Units (7.32-7.45) L 06/17/18 15:22 ABG pCO2 43 mmHg (35-45) 06/17/18 15:22 ABG pO2 83 mmHg (85-104) L 06/17/18 15:22 ABG O2 Saturation 95 % (95-98) 06/17/18 15:22 - VTE Documentation of Mechanical Device: Intermittent pneumatic compression device Consult Discharge Plan - Plan Referrals: Lokesh Cooper MD [Primary Care Provider] - Prescriptions: Amiodarone [Cordarone] 200 mg PO DAILY 30 Days #30 tablet Fluconazole [Diflucan] 200 mg PO DAILY 11 Days #11 tab Furosemide [Lasix] 40 mg PO DAILY 30 Days #60 tab (3) COPD (chronic obstructive pulmonary disease) Qualifiers: COPD type: unspecified COPD Qualified Code(s): J44.9 - Chronic obstructive pulmonary disease, unspecified (4) Anemia Qualifiers: Anemia type: other cause Other causes of anemia: chronic disease, other Qualified Code(s): D63.8 - Anemia in other chronic diseases classified elsewhere
[2018-06-23] MEDS: Loratadine 10 MG TABLET PO SCH (14:44)
[2018-06-24 03:57] LABS: Basophils % 0.2 %; Eosinophils # 0.1 K/mcL (0.0-0.6); Eosinophils % 1.3 %; Hematocrit 27.2 % (35.3-44.9); Hemoglobin 8.2 g/dL (11.5-15.4); Immature Granulocytes % 1.3 % (0-4); Lymphocytes # 0.9 K/mcL (0.6-4.6); Lymphocytes % 16.3 %; Mean Corpuscular HGB Conc 30.1 g/dL (31.6-35.5); Mean Corpuscular Hemoglobin 28.9 pg (28.0-33.3); Mean Corpuscular Volume 95.8 fL (83.0-100.0); Monocytes # 0.4 K/mcL (0.0-1.3); Monocytes % 8.1 %; Neutrophils # 3.9 K/mcL (1.6-8.9); Platelet Count 145 K/mcL (140-400); Red Blood Count 2.84 M/mcL (3.82-4.97); Red Cell Distribution Width 17.9 % (11.5-14.5); Segmented Neutrophils % 72.8 %
[2018-06-24 04:04] LABS: BUN/Creatinine Ratio 10 (6-26); Blood Urea Nitrogen 9 mg/dL (8-23); Carbon Dioxide 30 mEq/L (23-29); Chloride 97 mEq/L (98-107); Glucose 98 mg/dL (70-105); Magnesium 1.9 mg/dL (1.6-2.6); Osmolality,Calculated 273 (280-300); Phosphorous 3.1 mg/dL (2.7-4.5); Potassium 4.3 mEq/L (3.5-5.1); Sodium 132 mEq/L (136-145); eGFR For Non-African Americans 58 (> 60)
[2018-06-24 05:35] VITALS: BP 100/63
[2018-06-24] MEDS: levETIRAcetam 250 MG TABLET PO SCH (07:51)
[2018-06-24] MEDS: Fluconazole 100 MG TABLET PO SCH (07:52)
[2018-06-24] MEDS: *HR* Amiodarone 200 MG TABLET PO SCH (07:53)
[2018-06-24] MEDS: *HR* Heparin 5,000 UNIT/ML VIAL SQ SCH (07:53)
[2018-06-24] MEDS: Aspirin Enteric Coated 81 MG Tablet PO SCH (07:53)
[2018-06-24] MEDS: Fluticasone Propionate Nasal 50 MCG/SPRAY BOTTLE NS SCH (08:16)
[2018-06-24] MEDS ORDERED: Furosemide 40 MG TABLET PO SCH (09:00)
--- NOTE | 2018-06-24 10:52 | Discharge Summary ---
Date of Encounter: 06/24/18 Time of Encounter: 10:50 - Discharge Diagnosis (1) Encephalopathy Priority: Primary Status: Acute Assessment and Plan: 72 year old female who presented to the emergency department from nursing facility with difficulty in breathing and confusion. Patient recently admitted to the hospital for appendectomy and subsequently developed intra-abdominal pelvic abscess. The patient had a prolonged hospitalization at that time and was discharged to nursing facility on prolonged antibiotics including daptomycin and Zosyn. The patient had 2 KARAN drains placed during that hospitalization that are still in place. The patient was evaluated in the emergency department at [facility] and was communicated to myself and the patient was hypoxic and required higher than normal supplemental oxygen to maintain adequate pulse oximetry. The patient had a CT scan of her chest abdomen and pelvis which revealed a increasing left-sided pleural effusion that now has a loculated component as well as a small stable right-sided pleural effusion. The CAT scan of her abdomen revealed that there does not appear to currently be any remaining loculated abscess. Patient's CT scan of her brain was negative for any acute intracranial pathology. The patient also had an ABG which revealed a mild metabolic acidosis with appropriate respiratory compensation. She was initially assessed with acute encephalopathy of unclear etiology, possibly due to hypoxia vs infection. She had [facility] with d[facility] and zosyn for pelvic abscesses with e .coli wound cultures and VRE in the blood. On admission, these antibiotics were stopped per ID recs. She was also noted to have a small size loculated pleural effusion which was assessed by pulmonary and determined there was no need for thoracentesis, but may benefit from CT guided chest drainage in future. She also had pelvic drains in place that were removed by IR on this admission. She was monitored and therefore determined to have acute metabolic encephalopathy from hypoxia likely secondary to acute worsening of diastolic CHF and acute fungal UTI. Urine cultures were positive for yeast. She was diuresed with lasix and treated with IV fluconazole per ID recs when her urine came back positive for yeast, and she made a remarkable improvement. She will be discharged to complete a 2 week total course of oral fluconazole. She is stable for discharge but is however requesting discharge to a different ECF facility. cold storage worker has been notified and is on board. 35minutes was spent discharging this patient. Patient was discharged on 06/24/18 (2) Acute and chronic respiratory failure with hypoxia Priority: Primary Status: Acute Assessment and Plan: -Per report the patient was hypoxic in the emergency department requiring higher than normal supplemental oxygen -Currently on home dose of 2 L -Unclear etiology; patient with interval increase in left pleural effusion now with apparent loculations; however this is not of significant size and may not be contributing to her respiratory failure -Patient does have recent history of what appears to be unexplained respiratory failure requiring intubation last admission Possibly secondary to acute worsening of chronic diastolic CHF vs loculated pleural effusion, will [facility] [employer] [facility] following and plan for possible CT guided drainage (3) Congestive heart failure Priority: Primary Status: Chronic Qualifiers: Heart failure type: diastolic Heart failure chronicity: chronic Qualified Code(s): I50.32 - Chronic diastolic (congestive) heart failure (4) Loculated pleural effusion Priority: Primary Status: Acute (5) Intra-abdominal abscess post-procedure Priority: Primary Status: Acute (6) Obesity (BMI 30-39.9) Priority: Primary Status: Chronic (7) Thrombocytopenia Priority: Primary Status: Acute (8) Chronic indwelling Parks catheter Priority: Primary Status: Acute (9) CKD (chronic kidney disease) stage 3, GFR 30-59 ml/min Priority: Primary Status: Acute (10) Superficial thrombophlebitis of upper extremity Priority: Secondary Status: Acute Qualifiers: Laterality: left Qualified Code(s): I80.8 - Phlebitis and thrombophlebitis of other sites (11) Legally blind Priority: Secondary Status: Chronic (12) Anemia Priority: Secondary Status: Acute Qualifiers: Anemia type: unspecified type Qualified Code(s): D64.9 - Anemia, unspecified (13) DVT prophylaxis Priority: Secondary Status: Acute Hospital course: Ms. Barber is a 72 year old female - Time Spent with Patient Total time spent providing and/or coordinating discharge services: - Discharge Medications Prescriptions: Amiodarone [Cordarone] 200 mg PO DAILY 30 Days #30 tablet Fluconazole [Diflucan] 200 mg PO DAILY 11 Days #11 tab Furosemide [Lasix] 40 mg PO DAILY 30 Days #60 tab Home Medications: Cyclosporine [Restasis] 1 drop BOTH EYES BID 04/30/15 [History] Potassium Chloride 20 meq PO BID 06/19/16 [History] Calcitriol [Rocaltrol] 0.25 mcg PO DAILY 03/20/17 [History] Albuterol Sulfate [Albuterol Inhaler] 2 puff IH Q4HR PRN 08/27/17 [History] Esomeprazole Magnesium [Nexium] 40 mg PO DAILY 10/06/17 [History] Aspirin Enteric Coated [Aspirin EC] 81 mg PO DAILY tablet. 11/02/17 [Rx] Docusate [Colace] 100 mg PO BID PRN capsule 12/02/17 [Rx] Fluticasone Propionate Nasal [Flonase] 50 mcg NS DAILY bottle 12/02/17 [Rx] Quetiapine Fumarate [Seroquel] 50 mg PO HS 03/09/18 [History] Fluticasone/Vilanterol [Breo Ellipta 100-25 Mcg INH] 1 puff IH DAILY 03/29/18 [ History] Loperamide [Imodium] 2 mg PO Q6H PRN 03/29/18 [History] Ondansetron [Zofran] 8 mg PO Q6H PRN 03/29/18 [History] Acetaminophen [Tylenol] 650 mg PO Q4HR PRN #60 tablet 04/29/18 [Rx] Bisacodyl [Dulcolax] 10 mg RC DAILY PRN supp.rect 04/29/18 [Rx] Calcium Carbonate [Tums] 1,000 mg PO Q4HR PRN #30 tab.chew 04/29/18 [Rx] Ferrous Sulfate 325 mg PO BIDWM #60 tablet 04/29/18 [Rx] Loratadine [Claritin] 10 mg PO Q48H #0 04/29/18 [Rx] Metoprolol [Lopressor] 12.5 mg PO BID #30 tablet 04/29/18 [Rx] 0.9 % Sodium Chloride [Normal Saline Flush] 10 ml IVP Q8H syringe 05/20/18 [Rx] Levothyroxine [Synthroid] 112 mcg PO DAILY 06/17/18 [History] LevETIRAcetam [Keppra] 500 mg PO BID 06/18/18 [History] Amiodarone [Cordarone] 200 mg PO DAILY 30 Days #30 tablet 06/21/18 [Rx] Fluconazole [Diflucan] 200 mg PO DAILY 11 Days #11 tab 06/21/18 [Rx] Furosemide [Lasix] 40 mg PO DAILY 30 Days #60 tab 06/21/18 [Rx] Allergies/Adverse Reactions: 3 Allergy/AdvReac Type Severity Reaction Status Date / Time ciprofloxacin [From Cipro] Allergy Hives Verified 03/29/18 21:41 meperidine [From Demerol] AdvReac Vomiting Verified 03/29/18 21:41 Date of admission: 06/17/18 13:40 Primary care physician: Lokesh Cooper MD Consults: 06/17/18 13:32 Consult to Infectious Diseases [CONS] Routine Consulting Provider: Infectious Disease [facility] Reason for Consult: Follows with ID; still on Dapto and zosyn for intra abdmoinal abcess; appears resolved now; need for further abx? Call Completed: Yes 06/17/18 13:46 Consult to Pulmonology [CONS] Routine Consulting Provider: [facility] [place] Reason for Consult: eval of loculated pleural effusion with worsening hypoxia Call Completed: Yes 06/18/18 09:24 Consult to Interventional Radiology [CONS] Routine Consulting Provider: Radiology Interventional [facility] Reason for Consult: remove abdominal drains Call Completed: No 06/18/18 12:24 Consult to Motor Runner [CONS] Routine Reason for SW Consult: From [facility] Cint[facility] EC 06/19/18 10:27 Consult to Palliative Care [CONS] Routine Comment: Consulting Provider: Palliative Care [facility] Reason for Consult: goals of care, advance directives Call Completed: Yes - Constitutional Vitals: Temp Pulse Resp BP Pulse Ox 97.7 F 87 15 100/63 99 06/24/18 05:34 06/24/18 05:34 06/24/18 05:34 06/24/18 05:34 06/24/18 05:34 Exam: Constitutional: No acute distress, Alert Psych: AAO x 3 however seems confused at times HEENT: NCAT, EOMI Neck: supple Derm: multiple eccymoses on bilateral upper extremities and abodmen Cardio: Irregularly irregular with controlled rate in low 90s, +s1s2 Resp: decreased breath sounds in bases; no wheezing Abd: soft, several nodules from subcutaneous heparin injections, 2 KARAN drains in left lower quadrant without significant surrounding erythema; they appear to be draining scant serous fluid at this time, BS positive Extremities: 3+ pitting edeam with anasarca present extending to abodmen Neuro: no focal deficits appreciated Lymph: no cervical denopahty apprecitated - Patient Status Disposition: Transfer SNF Condition: Good - Discharge Instructions Follow Up With: Lokesh Cooper MD [Primary Care Provider] - - VTE Documentation of Mechanical Device: Intermittent pneumatic compression device
== END 2018-06-24 10:13 | DRG 862 ==
LOC: 2SOUTHHOLD → 3ANU 14:34
PROVIDERS: ADMIT Internal Medicine; ATTEND Internal Medicine

== ENCOUNTER 2019-06-21 22:25 | Observation (INO) ==
--- NOTE | 2019-06-21 22:33 | Emergency Department Note ---
Disposition Clinical Impression: Shortness of breath Chest pain Qualifiers: Chest pain type: unspecified Qualified Code(s): R07.9 - Chest pain, unspecified CKD (chronic kidney disease) Qualifiers: Chronic kidney disease stage: unspecified stage Qualified Code(s): N18.9 - Chronic kidney disease, unspecified Disposition: Admitted As Inpatient Condition: Good Time of Disposition: 02:02 General Adult HPI - General Chief complaint: ED Shortness of Breath/Dyspnea Stated complaint: SOB Time Seen by Provider: 06/21/19 22:26 - Related Data Home Medications Medication Instructions Recorded Confirmed Cyclosporine [Restasis] 1 drop BOTH EYES BID 04/30/15 06/22/19 Potassium Chloride 20 meq PO BID 06/19/16 06/22/19 Calcitriol [Rocaltrol] 0.25 mcg PO DAILY 03/20/17 06/22/19 Albuterol Sulfate [Proventil 2 puff IH Q4HR PRN 08/27/17 06/22/19 Inhaler] Quetiapine Fumarate [Seroquel] 25 mg PO HS 03/09/18 06/22/19 Fluticasone/Vilanterol [Breo 1 puff IH DAILY 03/29/18 06/22/19 Ellipta 100-25 Mcg INH] Levothyroxine [Synthroid] 112 mcg PO DAILY 06/17/18 06/22/19 LevETIRAcetam [Keppra] 500 mg PO BID 06/18/18 06/22/19 Ferrous Sulfate [Iron] 325 mg PO DAILY 10/28/18 06/22/19 Loperamide [Imodium] 2 mg PO Q6H PRN 10/28/18 06/22/19 Ondansetron HCl 8 mg PO Q6H PRN 10/28/18 06/22/19 Rosuvastatin [Crestor] 20 mg PO HS 10/28/18 06/22/19 Acetaminophen [Tylenol] 325 mg PO Q4HR PRN 06/22/19 06/22/19 Hydrocodone/Acetaminophen 1 each PO Q6HR PRN 06/22/19 06/22/19 [Hydrocodon-Acetaminophen 5-325] Pantoprazole Sodium [Protonix] 20 mg PO DAILY 06/22/19 06/22/19 Previous Rx's Medication Instructions Recorded Docusate [Colace] 100 mg PO BID PRN capsule 12/02/17 Fluticasone Propionate Nasal 50 mcg NS DAILY bottle 12/02/17 [Flonase] Calcium Carbonate [Tums] 1,000 mg PO Q4HR PRN #30 tab.chew 04/29/18 Loratadine [Claritin] 10 mg PO Q48H #0 04/29/18 Metoprolol [Lopressor] 12.5 mg PO BID #30 tablet 04/29/18 Furosemide [Lasix] 40 mg PO DAILY 30 Days #60 tab 06/21/18 Allergies Allergy/AdvReac Type Severity Reaction Status Date / Time ciprofloxacin [From Cipro] Allergy Hives Verified 06/21/19 22:31 meperidine [From Demerol] AdvReac Vomiting Verified 06/21/19 22:31 Past Medical History - Past Medical History Medical history: Reports: arthritis, asthma, atrial fibrillation, CHF, COPD, GERD, hyperlipidemia, hypertension, osteoporosis, renal disease, venous stasis, valvular heart disease, other Surgical history: Reports: cataract, cholecystectomy, heart valve replacement, herniorrhaphy, hysterectomy, knee replacement, orthopedic, other, sinus surgery, other Psychiatric history: Reports: anxiety, depression [employer] history: Reports: no [employer] history - Social History Smoking Status: Never smoker Smokeless Tobacco Status: No Alcohol use: Reports: none Drug use: Reports: none Course Vital Signs Temperature 98.7 F 06/21/19 22:31 Pulse Rate 83 06/21/19 22:31 Respiratory Rate 19 06/21/19 22:31 Blood Pressure 116/82 06/21/19 22:31 O2 Sat by Pulse Oximetry 98 06/21/19 22:31 Temperature 98.7 F 06/21/19 22:31 Pulse Rate 81 06/22/19 00:46 Respiratory Rate 12 06/22/19 00:46 Blood Pressure 106/62 06/22/19 00:46 O2 Sat by Pulse Oximetry 100 06/22/19 00:46 Oxygen Delivery Oxygen Delivery Room Air Medical Decision Making - Lab Data Result diagrams: 06/21/19 22:44 06/21/19 22:44 Lab Results 06/21/19 06/21/19 06/21/19 Range/Units 22:44 22:44 22:44 WBC 7.3 (4.3-11.1) K/mcL RBC 3.38 L (3.82-4.97) M/mcL Hgb 10.6 L (11.5-15.4) g/dL Hct 33.7 L (35.3-44.9) % MCV 99.7 (83.0-100.0) fL MCH 31.4 (28.0-33.3) pg MCHC 31.5 L (31.6-35.5) g/dL RDW 14.2 (11.5-14.5) % Plt Count 100 L (140-400) K/mcL MPV 10.6 (9.4-12.4) fL Immature Gran % 1.8 (0-4) % Seg Neutrophils % 86.3 % Lymphocytes % 8.7 % Monocytes % 2.0 % Eosinophils % 1.1 % Basophils % 0.1 % Neutrophils # 6.3 (1.6-8.9) K/mcL Lymphocytes # 0.6 (0.6-4.6) K/mcL Monocytes # 0.2 (0.0-1.3) K/mcL Eosinophils # 0.1 (0.0-0.6) K/mcL Basophils # 0.0 (0.0-0.2) K/mcL Nucleated RBCs/100 WBC 0.3 H (0) /100 WBC PT 13.6 H (9.4-12.1) Seconds INR 1.2 Sodium 142 (136-145) mEq/L Potassium 5.0 (3.5-5.1) mEq/L Chloride 108 H (98-107) mEq/L Carbon Dioxide 24 (23-29) mEq/L BUN 59 H (8-23) mg/dL Creatinine 2.40 H (0.60-1.20) mg/dL Est GFR ( Amer) 24 L (> 60) Est GFR (Non-Af Amer) 20 L (> 60) BUN/Creatinine Ratio 25 (6-26) Glucose 98 (70-105) mg/dL Calculated Osmolality 311 H (280-300) Calcium 9.3 (8.6-10.3) mg/dL Total Bilirubin 0.4 (0.3-1.0) mg/dL AST 22 (13-39) Units/L ALT 17 (7-52) Units/L Alkaline Phosphatase 68 (34-104) Units/L Troponin I 0.03 (< 0.04) ng/mL B-Natriuretic Peptide (Less than 100) pg/mL Serum Total Protein 6.9 (6.4-8.9) g/dL Albumin 3.7 (3.5-5.7) g/dL Globulin 3.2 (2.4-3.5) g/dL Albumin/Globulin Ratio 1.2 (1.1-2.2) Urine Color (Yellow) Urine Clarity (Clear) Urine pH (5.0-8.0) pH Units Ur Specific [place] (1.010-1.025) Urine Protein (Neg-Trace) mg/dL Urine Glucose (UA) (Normal) mg/dL Urine Ketones (Negative) mg/dL Urine Blood (Negative) Urine Nitrite (Negative) Urine Bilirubin (Negative) Urine Urobilinogen (Normal) mg/dL Ur Leukocyte Esterase (Negative) Urine Microscopic RBC (0-3) per hpf Urine Microscopic WBC (0-3) per hpf Ur Squamous Epith Cells (None-Few) per lpf Urine Bacteria (None-Few) per hpf Hyaline Casts (None-Few) per lpf Urine Mucus (Few) Ur Culture Indicated? (NO) 06/21/19 06/21/19 Range/Units 22:44 22:45 WBC (4.3-11.1) K/mcL RBC (3.82-4.97) M/mcL Hgb (11.5-15.4) g/dL Hct (35.3-44.9) % MCV (83.0-100.0) fL MCH (28.0-33.3) pg MCHC (31.6-35.5) g/dL RDW (11.5-14.5) % Plt Count (140-400) K/mcL MPV (9.4-12.4) fL Immature Gran % (0-4) % Seg Neutrophils % % Lymphocytes % % Monocytes % % Eosinophils % % Basophils % % Neutrophils # (1.6-8.9) K/mcL Lymphocytes # (0.6-4.6) K/mcL Monocytes # (0.0-1.3) K/mcL Eosinophils # (0.0-0.6) K/mcL Basophils # (0.0-0.2) K/mcL Nucleated RBCs/100 WBC (0) /100 WBC PT (9.4-12.1) Seconds INR Sodium (136-145) mEq/L Potassium (3.5-5.1) mEq/L Chloride (98-107) mEq/L Carbon Dioxide (23-29) mEq/L BUN (8-23) mg/dL Creatinine (0.60-1.20) mg/dL Est GFR ( Amer) (> 60) Est GFR (Non-Af Amer) (> 60) BUN/Creatinine Ratio (6-26) Glucose (70-105) mg/dL Calculated Osmolality (280-300) Calcium (8.6-10.3) mg/dL Total Bilirubin (0.3-1.0) mg/dL AST (13-39) Units/L ALT (7-52) Units/L Alkaline Phosphatase (34-104) Units/L Troponin I (< 0.04) ng/mL B-Natriuretic Peptide 307 H (Less than 100) pg/mL Serum Total Protein (6.4-8.9) g/dL Albumin (3.5-5.7) g/dL Globulin (2.4-3.5) g/dL Albumin/Globulin Ratio (1.1-2.2) Urine Color Yellow (Yellow) Urine Clarity Cloudy A (Clear) Urine pH 6.0 (5.0-8.0) pH Units Ur Specific [place] 1.013 (1.010-1.025) Urine Protein 100 H (Neg-Trace) mg/dL Urine Glucose (UA) Normal (Normal) mg/dL Urine Ketones Negative (Negative) mg/dL Urine Blood Moderate H (Negative) Urine Nitrite Negative (Negative) Urine Bilirubin Negative (Negative) Urine Urobilinogen Normal (Normal) mg/dL Ur Leukocyte Esterase Large H (Negative) Urine Microscopic RBC 5-15 H (0-3) per hpf Urine Microscopic WBC TNTC H (0-3) per hpf Ur Squamous Epith Cells Many H (None-Few) per lpf Urine Bacteria None Seen (None-Few) per hpf Hyaline Casts Few (None-Few) per lpf Urine Mucus Few (Few) Ur Culture Indicated? YES A (NO) Attestation Statement - Attestation Attestation: I reviewed the residents documentation and agree with the residents assessment and plan of care. I have personally had face to face time with the patient. (Brief History, Brief Exam, and MDM) I personally supervised and was present for the baltazar/critical portions of the following procedures completed by the resident: (add procedures performed here). [id number] time provided Patient arrives by EMS from the extended-care facility with substernal chest discomfort and dyspnea that has since resolved. She was given an aspirin prehospital. History of multivessel CABG in 1994. The patient is nonambulatory at baseline. She appears in no acute distress. I attest to supervising the resident physician's interpretation of the ECG
--- NOTE | 2019-06-21 22:45 | Emergency Department Note ---
Disposition Clinical Impression: Shortness of breath Chest pain Qualifiers: Chest pain type: unspecified Qualified Code(s): R07.9 - Chest pain, unspecified CKD (chronic kidney disease) Qualifiers: Chronic kidney disease stage: unspecified stage Qualified Code(s): N18.9 - Chronic kidney disease, unspecified Disposition: Admitted As Inpatient Condition: Good Forms: ED Satisfaction Letter Time of Disposition: 00:30 General Adult HPI - General Chief complaint: ED Shortness of Breath/Dyspnea Stated complaint: SOB Time Seen by Provider: 06/21/19 22:26 Nursing Notes Reviewed: Yes Vital Signs Reviewed: Yes - History of Present Illness HPI Narrative: 73-year-old female with history of CAD status post CABG, HTN, Pulmonary HTN, asthma, CKD who presents emergency Department with complaints of shortness of breath and chest pain. The patient was at [facility] where she resides and lay down to sleep and woke up feeling significantly short of breath. She also began to experience chest pain in the midsternum. The patient was placed on oxygen secondary to hypoxia down to 82%. Upon arrival EMS found that she was satting well on room air but was diaphoretic and complaining of chest pain there short for she was given nitroglycerin and aspirin 325 mg. The patient describes persistent orthopnea but states her chest pain is now resolved. She notes no significant change in her peripheral edema. She denies any cough, nasal congestion, fever, nausea, vomiting, abdominal pain, dysuria or hematuria. - Related Data Home Medications Medication Instructions Recorded Confirmed Cyclosporine [Restasis] 1 drop BOTH EYES BID 04/30/15 06/22/19 Potassium Chloride 20 meq PO BID 06/19/16 06/22/19 Calcitriol [Rocaltrol] 0.25 mcg PO DAILY 03/20/17 06/22/19 Albuterol Sulfate [Proventil 2 puff IH Q4HR PRN 08/27/17 06/22/19 Inhaler] Quetiapine Fumarate [Seroquel] 25 mg PO HS 03/09/18 06/22/19 Fluticasone/Vilanterol [Breo 1 puff IH DAILY 03/29/18 06/22/19 Ellipta 100-25 Mcg INH] Levothyroxine [Synthroid] 112 mcg PO DAILY 06/17/18 06/22/19 LevETIRAcetam [Keppra] 500 mg PO BID 06/18/18 06/22/19 Ferrous Sulfate [Iron] 325 mg PO DAILY 10/28/18 06/22/19 Loperamide [Imodium] 2 mg PO Q6H PRN 10/28/18 06/22/19 Ondansetron HCl 8 mg PO Q6H PRN 10/28/18 06/22/19 Rosuvastatin [Crestor] 20 mg PO HS 10/28/18 06/22/19 Acetaminophen [Tylenol] 325 mg PO Q4HR PRN 06/22/19 06/22/19 Hydrocodone/Acetaminophen 1 each PO Q6HR PRN 06/22/19 06/22/19 [Hydrocodon-Acetaminophen 5-325] Pantoprazole Sodium [Protonix] 20 mg PO DAILY 06/22/19 06/22/19 Previous Rx's Medication Instructions Recorded Docusate [Colace] 100 mg PO BID PRN capsule 12/02/17 Fluticasone Propionate Nasal 50 mcg NS DAILY bottle 12/02/17 [Flonase] Calcium Carbonate [Tums] 1,000 mg PO Q4HR PRN #30 tab.chew 04/29/18 Loratadine [Claritin] 10 mg PO Q48H #0 04/29/18 Metoprolol [Lopressor] 12.5 mg PO BID #30 tablet 04/29/18 Furosemide [Lasix] 40 mg PO DAILY 30 Days #60 tab 06/21/18 Allergies Allergy/AdvReac Type Severity Reaction Status Date / Time ciprofloxacin [From Cipro] Allergy Hives Verified 06/21/19 22:31 meperidine [From Demerol] AdvReac Vomiting Verified 06/21/19 22:31 Review of Systems: ROS per history of present illness, all other systems reviewed and negative or normal. All systems ED: reviewed and negative except as stated. 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 No apparent distress. Follow commands. Appears stated age. Neck: No JVD. Trachea midline. Neck supple. Eyes: PERRL. No scleral icterus. HENT: Normocephalic and atraumatic. Moist mucus membranes. Cardiovascular: Regular rate and rhythm. Normal S1 and S2. No murmurs appreciated. Normal capillary refill. Extremities well perfused with 2+ distal pulses bilaterally. 1+ edema bilaterally Pulmonary: Normal and equal breath sounds bilaterally, anteriorly and posteriorl y. No wheezes, rales, or rhonchi. Not in respiratory distress. Speaks in full sentences. Abdomen: Soft, nondistended, and tontender. No bruits or masses. No guarding. Neuro: Alert and oriented x3. No slurred speech. No focal deficits noted. Skin: No rashes noted on visualized skin. Musculoskeletal: No bony abnormalities visualized. Moves all extremities. Psych: Normal mood. Pleasant. Makes appropriate eye contact. Course Vital Signs Temperature 98.7 F 06/21/19 22:31 Pulse Rate 83 06/21/19 22:31 Respiratory Rate 19 06/21/19 22:31 Blood Pressure 116/82 06/21/19 22:31 O2 Sat by Pulse Oximetry 98 06/21/19 22:31 Temperature 98.7 F 06/21/19 22:31 Pulse Rate 81 06/22/19 00:46 Respiratory Rate 12 06/22/19 00:46 Blood Pressure 106/62 06/22/19 00:46 O2 Sat by Pulse Oximetry 100 06/22/19 00:46 Oxygen Delivery Oxygen Delivery Room Air Medical Decision Making - [facility] Narrative Medical decision making narrative: 73-year-old female with history of CABG, hypertension, asthma, CKD who presents emergency department with complaints of chest pain and shortness of breath. These are now resolved. On arrival the patient's vital signs are stable, no hypoxia, fever, hypotension or tachycardia. The patient has no significant crackles or coarse breath sounds on auscultation. Laboratory evaluation shows baseline anemia and CKD. UA shows no UTI. Troponin less than 0.031. EKG shows no ST or T-wave abnormalities concerning for ischemia. Chest x-ray shows no focal consolidation or significant edema. Given the patient's significant cardiac history and chest pain do believe she warrants admission for further cardiac evaluation. Discussed case with on-call hospitalist Chelsie who agrees with plan for admission and accepts the patient to the inpatient service. Patient agrees with and understands course of treatment plan including plan for admission. All questions answered. - Medical Records Medical records reviewed: Yes I reviewed the patient's medical records. - Lab Data Lab results reviewed: Yes I reviewed the patient's lab results. Result diagrams: 06/21/19 22:44 06/21/19 22:44 Lab Results 06/21/19 06/21/19 06/21/19 Range/Units 22:44 22:44 22:44 WBC 7.3 (4.3-11.1) K/mcL RBC 3.38 L (3.82-4.97) M/mcL Hgb 10.6 L (11.5-15.4) g/dL Hct 33.7 L (35.3-44.9) % MCV 99.7 (83.0-100.0) fL MCH 31.4 (28.0-33.3) pg MCHC 31.5 L (31.6-35.5) g/dL RDW 14.2 (11.5-14.5) % Plt Count 100 L (140-400) K/mcL MPV 10.6 (9.4-12.4) fL Immature Gran % 1.8 (0-4) % Seg Neutrophils % 86.3 % Lymphocytes % 8.7 % Monocytes % 2.0 % Eosinophils % 1.1 % Basophils % 0.1 % Neutrophils # 6.3 (1.6-8.9) K/mcL Lymphocytes # 0.6 (0.6-4.6) K/mcL Monocytes # 0.2 (0.0-1.3) K/mcL Eosinophils # 0.1 (0.0-0.6) K/mcL Basophils # 0.0 (0.0-0.2) K/mcL Nucleated RBCs/100 WBC 0.3 H (0) /100 WBC PT 13.6 H (9.4-12.1) Seconds INR 1.2 Sodium 142 (136-145) mEq/L Potassium 5.0 (3.5-5.1) mEq/L Chloride 108 H (98-107) mEq/L Carbon Dioxide 24 (23-29) mEq/L BUN 59 H (8-23) mg/dL Creatinine 2.40 H (0.60-1.20) mg/dL Est GFR ( Amer) 24 L (> 60) Est GFR (Non-Af Amer) 20 L (> 60) BUN/Creatinine Ratio 25 (6-26) Glucose 98 (70-105) mg/dL Calculated Osmolality 311 H (280-300) Calcium 9.3 (8.6-10.3) mg/dL Total Bilirubin 0.4 (0.3-1.0) mg/dL AST 22 (13-39) Units/L ALT 17 (7-52) Units/L Alkaline Phosphatase 68 (34-104) Units/L Troponin I 0.03 (< 0.04) ng/mL B-Natriuretic Peptide (Less than 100) pg/mL Serum Total Protein 6.9 (6.4-8.9) g/dL Albumin 3.7 (3.5-5.7) g/dL Globulin 3.2 (2.4-3.5) g/dL Albumin/Globulin Ratio 1.2 (1.1-2.2) Urine Color (Yellow) Urine Clarity (Clear) Urine pH (5.0-8.0) pH Units Ur Specific [place] (1.010-1.025) Urine Protein (Neg-Trace) mg/dL Urine Glucose (UA) (Normal) mg/dL Urine Ketones (Negative) mg/dL Urine Blood (Negative) Urine Nitrite (Negative) Urine Bilirubin (Negative) Urine Urobilinogen (Normal) mg/dL Ur Leukocyte Esterase (Negative) Urine Microscopic RBC (0-3) per hpf Urine Microscopic WBC (0-3) per hpf Ur Squamous Epith Cells (None-Few) per lpf Urine Bacteria (None-Few) per hpf Hyaline Casts (None-Few) per lpf Urine Mucus (Few) Ur Culture Indicated? (NO) 06/21/19 06/21/19 Range/Units 22:44 22:45 WBC (4.3-11.1) K/mcL RBC (3.82-4.97) M/mcL Hgb (11.5-15.4) g/dL Hct (35.3-44.9) % MCV (83.0-100.0) fL MCH (28.0-33.3) pg MCHC (31.6-35.5) g/dL RDW (11.5-14.5) % Plt Count (140-400) K/mcL MPV (9.4-12.4) fL Immature Gran % (0-4) % Seg Neutrophils % % Lymphocytes % % Monocytes % % Eosinophils % % Basophils % % Neutrophils # (1.6-8.9) K/mcL Lymphocytes # (0.6-4.6) K/mcL Monocytes # (0.0-1.3) K/mcL Eosinophils # (0.0-0.6) K/mcL Basophils # (0.0-0.2) K/mcL Nucleated RBCs/100 WBC (0) /100 WBC PT (9.4-12.1) Seconds INR Sodium (136-145) mEq/L Potassium (3.5-5.1) mEq/L Chloride (98-107) mEq/L Carbon Dioxide (23-29) mEq/L BUN (8-23) mg/dL Creatinine (0.60-1.20) mg/dL Est GFR ( Amer) (> 60) Est GFR (Non-Af Amer) (> 60) BUN/Creatinine Ratio (6-26) Glucose (70-105) mg/dL Calculated Osmolality (280-300) Calcium (8.6-10.3) mg/dL Total Bilirubin (0.3-1.0) mg/dL AST (13-39) Units/L ALT (7-52) Units/L Alkaline Phosphatase (34-104) Units/L Troponin I (< 0.04) ng/mL B-Natriuretic Peptide 307 H (Less than 100) pg/mL Serum Total Protein (6.4-8.9) g/dL Albumin (3.5-5.7) g/dL Globulin (2.4-3.5) g/dL Albumin/Globulin Ratio (1.1-2.2) Urine Color Yellow (Yellow) Urine Clarity Cloudy A (Clear) Urine pH 6.0 (5.0-8.0) pH Units Ur Specific [place] 1.013 (1.010-1.025) Urine Protein 100 H (Neg-Trace) mg/dL Urine Glucose (UA) Normal (Normal) mg/dL Urine Ketones Negative (Negative) mg/dL Urine Blood Moderate H (Negative) Urine Nitrite Negative (Negative) Urine Bilirubin Negative (Negative) Urine Urobilinogen Normal (Normal) mg/dL Ur Leukocyte Esterase Large H (Negative) Urine Microscopic RBC 5-15 H (0-3) per hpf Urine Microscopic WBC TNTC H (0-3) per hpf Ur Squamous Epith Cells Many H (None-Few) per lpf Urine Bacteria None Seen (None-Few) per hpf Hyaline Casts Few (None-Few) per lpf Urine Mucus Few (Few) Ur Culture Indicated? YES A (NO) - Radiology Data Radiology results reviewed: Yes I reviewed the patient's radiology results. Chest X-Ray 06/21/19 22:48 IMPRESSION: No acute cardiopulmonary abnormality. Stable pleuroparenchymal opacity left lower thorax. D/ / Lloyd Archuleta MD / Lloyd Archuleta MD Interpreting Provider: Lloyd Archuleta MD - EKG Data EKG #1 EKG attestation: Yes I reviewed and interpreted this EKG. EKG results narrative: NSR rate of 95. Normal [place]. Slightly prolonged QTc at 505. No ischemic ST or T wave abnormalities. When compared with prior from 10/28/18 there are no signific ant changes Heart Score - Score History: Moderately Suspicious EKG: Normal Age: Greater than 65 Risk Factors: Equal/Greater than 3 risk factor or history of atherosclerotic disease Troponin: Less than normal limit HEART Score Total: 5
[2019-06-21 22:53] LABS: Basophils % 0.1 %; Eosinophils # 0.1 K/mcL (0.0-0.6); Eosinophils % 1.1 %; Hematocrit 33.7 % (35.3-44.9); Hemoglobin 10.6 g/dL (11.5-15.4); Immature Granulocytes % 1.8 % (0-4); Lymphocytes # 0.6 K/mcL (0.6-4.6); Lymphocytes % 8.7 %; Mean Corpuscular HGB Conc 31.5 g/dL (31.6-35.5); Mean Corpuscular Hemoglobin 31.4 pg (28.0-33.3); Mean Corpuscular Volume 99.7 fL (83.0-100.0); Mean Platelet Volume 10.6 fL (9.4-12.4); Monocytes # 0.2 K/mcL (0.0-1.3); Neutrophils # 6.3 K/mcL (1.6-8.9); Nucleated Red Blood Cells 0.3 /100 WBC (0); Platelet Count 100 K/mcL (140-400); Red Blood Count 3.38 M/mcL (3.82-4.97); Red Cell Distribution Width 14.2 % (11.5-14.5); Segmented Neutrophils % 86.3 %; White Blood Count 7.3 K/mcL (4.3-11.1)
[2019-06-21 23:04] LABS: INR 1.2; Prothrombin Time 13.6 Seconds (9.4-12.1)
[2019-06-21 23:15] LABS: Albumin 3.7 g/dL (3.5-5.7); Albumin/Globulin Ratio 1.2 (1.1-2.2); Bilirubin,Total 0.4 mg/dL (0.3-1.0); Calcium 9.3 mg/dL (8.6-10.3); Globulin 3.2 g/dL (2.4-3.5); Total Protein 6.9 g/dL (6.4-8.9); Troponin I 0.03 ng/mL (< 0.04)
[2019-06-21 23:23] LABS: Bilirubin,Urine Negative (Negative); Blood,Urine Moderate (Negative); Clarity,Urine Cloudy (Clear); Color,Urine Yellow (Yellow); Glucose,Urine (UA) Normal (Normal); Ketones,Urine Negative (Negative); Leukocyte Esterase,Urine Large (Negative); Nitrite,Urine Negative (Negative); Protein,Urine 100 mg/dL (Neg-Trace); Specific Gravity,Urine 1.013 (1.010-1.025); Urobilinogen,Urine Normal (Normal)
[2019-06-21 23:27] LABS: Bacteria,Urine None Seen per hpf (None-Few); Squamous Epithelial Cell,Urine Many per lpf (None-Few); WBC,Urine TNTC per hpf (0-3)
[2019-06-21 23:43] LABS: Hyaline Casts,Urine Few per lpf (None-Few); Mucus,Urine Few (Few)
[2019-06-22] MEDS ORDERED: Nitroglycerin 0.4 MG TAB.SUBL SL PRN (05:09)
[2019-06-22] MEDS ORDERED: Morphine Sulfate 2 MG/ML SYRINGE IVP PRN (05:09)
[2019-06-22 06:00] LABS: Basophils % 0.1 %; Eosinophils # 0.1 K/mcL (0.0-0.6); Eosinophils % 1.3 %; Hematocrit 31.3 % (35.3-44.9); Hemoglobin 9.6 g/dL (11.5-15.4); Immature Granulocytes % 0.9 % (0-4); Immature Platelets 2.9 % (1.1-6.1); Lymphocytes # 0.9 K/mcL (0.6-4.6); Lymphocytes % 11.9 %; Mean Corpuscular HGB Conc 30.7 g/dL (31.6-35.5); Mean Corpuscular Hemoglobin 30.3 pg (28.0-33.3); Mean Corpuscular Volume 98.7 fL (83.0-100.0); Mean Platelet Volume 10.3 fL (9.4-12.4); Monocytes # 0.4 K/mcL (0.0-1.3); Monocytes % 5.1 %; Neutrophils # 6.4 K/mcL (1.6-8.9); Platelet Count 91 K/mcL (140-400); Red Blood Count 3.17 M/mcL (3.82-4.97); Red Cell Distribution Width 14.1 % (11.5-14.5); Segmented Neutrophils % 80.7 %; White Blood Count 7.9 K/mcL (4.3-11.1)
[2019-06-22 06:05] LABS: INR 1.3; Prothrombin Time 14.2 Seconds (9.4-12.1)
[2019-06-22 06:19] LABS: Albumin 3.4 g/dL (3.5-5.7); Albumin/Globulin Ratio 1.1 (1.1-2.2); Bilirubin,Total 0.3 mg/dL (0.3-1.0); Calcium 9.3 mg/dL (8.6-10.3); Total Protein 6.4 g/dL (6.4-8.9)
[2019-06-22] MEDS ORDERED: *HR* HYDROcodone/Acet 5/325 mg TABLET PO PRN (09:02)
[2019-06-22] MEDS ORDERED: Ondansetron ODT 4 MG TAB.RAPDIS PO PRN (09:02)
[2019-06-22] MEDS: Aspirin 81 MG TAB.CHEW PO SCH (09:08)
[2019-06-22] MEDS ORDERED: Regadenoson 0.4 MG/5 ML SYRINGE IVP ONE (09:33)
[2019-06-22] MEDS ORDERED: Artificial Tears SOLN 15 ML BOTTLE BOTH EYES PRN (10:07)
[2019-06-22] MEDS: Budesonide/Formoterol 80/4.5 1 PUFF INH IH SCH ×2 (10:31→20:00)
--- NOTE | 2019-06-22 11:19 | Internal Med History&Physical ---
Date of Encounter: 06/22/19 Time of Encounter: 08:30 Internal Medicine - H&P: HPI Chief complaint: Chest pain / SOB Admitted From: Emergency Dept Plans for Post Hospital Care: Home History of present illness: Ms. Barber is a 73 year old female with a past medical history of flow hyperlipidemia, hypertension, chronic anemia, atrial fibrillation, CKD stage IV, COPD, GERD, anxiety disorder, major depressive disorder, OA, Pablo Jose Francisco syndrome, DJD and chronic diastolic CHF pt presented to ER from local [facility] with c/o chest pain and shortness of breath. She did c/o sudden onset CP y/d evening while she was resting. Her CP was 6/10 in severity, non radiating, associated with SOB and sharp pain. She also c/o SOB, HUMPHREY and b/l LE edema. She denied any active CP now. She did c/o pain in both legs associated with She is alert, awake and O x 4. Past Med Surg Social Fam HX - Past Medical History Medical history: arthritis, asthma, atrial fibrillation, CHF, COPD, GERD, hyperlipidemia, hypertension, osteoporosis, renal disease, venous stasis, valvu lar heart disease, other Additional medical history: blind Psychiatric history: anxiety, depression - Past Surgical History Surgical History: cholecystectomy, hysterectomy, knee replacement Additional surgical history: lung surgery - right pleurodesis secondary to pleural effusions after cardiac surgery. "Ross" heart procedure- 1994 [facility] - Social History Smoking Status: Never smoker Smokeless Tobacco Status: No Alcohol use: none Drug use: none - Family History Father Adopted: No Family Member Ethnicity: Non- Living Status: Hx Family Cardiac Disorders: Yes (HD, Pig valve, HD) Hx Family Cancer: Yes (Cancer on lip) Hx Family GI Disorders: Yes (CKD) Hx Family Endocrine Disorder: Yes (Gallstones) Sister Family Member Ethnicity: Non- Living Status: Hx Family Endocrine Disorder: Yes (DM) Mother Adopted: No Family Member Ethnicity: Non- Living Status: Hx Family Cardiac Disorders: Yes (HD, Anemia) Internal Medicine - H&P: Meds Cyclosporine [Restasis] 1 drop BOTH EYES BID 04/30/15 [History] Potassium Chloride 20 meq PO BID 06/19/16 [History] Calcitriol [Rocaltrol] 0.25 mcg PO DAILY 03/20/17 [History] Albuterol Sulfate [Proventil Inhaler] 2 puff IH Q4HR PRN 08/27/17 [History] Docusate [Colace] 100 mg PO BID PRN capsule 12/02/17 [Rx] Fluticasone Propionate Nasal [Flonase] 50 mcg NS DAILY bottle 12/02/17 [Rx] Quetiapine Fumarate [Seroquel] 25 mg PO HS 03/09/18 [History] Fluticasone/Vilanterol [Breo Ellipta 100-25 Mcg INH] 1 puff IH DAILY 03/29/18 [History] Calcium Carbonate [Tums] 1,000 mg PO Q4HR PRN #30 tab.chew 04/29/18 [Rx] Loratadine [Claritin] 10 mg PO Q48H #0 04/29/18 [Rx] Metoprolol [Lopressor] 12.5 mg PO BID #30 tablet 04/29/18 [Rx] Levothyroxine [Synthroid] 112 mcg PO DAILY 06/17/18 [History] LevETIRAcetam [Keppra] 500 mg PO BID 06/18/18 [History] Furosemide [Lasix] 40 mg PO DAILY 30 Days #60 tab 06/21/18 [Rx] Ferrous Sulfate [Iron] 325 mg PO DAILY 10/28/18 [History] Loperamide [Imodium] 2 mg PO Q6H PRN 10/28/18 [History] Ondansetron HCl 8 mg PO Q6H PRN 10/28/18 [History] Rosuvastatin [Crestor] 20 mg PO HS 10/28/18 [History] Acetaminophen [Tylenol] 325 mg PO Q4HR PRN 06/22/19 [History] Hydrocodone/Acetaminophen [Hydrocodon-Acetaminophen 5-325] 1 each PO Q6HR PRN 06/22/19 [History] Pantoprazole Sodium [Protonix] 20 mg PO DAILY 06/22/19 [History] Allergy/AdvReac Type Severity Reaction Status Date / Time ciprofloxacin [From Cipro] Allergy Hives Verified 06/21/19 22:31 meperidine [From Demerol] AdvReac Vomiting Verified 06/21/19 22:31 All Systems PM: A 10-system review of systems was performed and is negative for pertinent findings except as documented above in the HPI. Review of systems: All the systems are reviewed everything is benign except the systems and symptoms I mentioned in the history of present illness - Constitutional Vitals: Temp Pulse Resp BP Pulse Ox 97.5 F L 79 16 111/74 98 06/22/19 11:07 06/22/19 11:07 06/22/19 11:07 06/22/19 11:07 06/22/19 11:07 General appearance: Present: cooperative, A&O X 3, no acute distress, answers questions appropriately Exam: a - Head Head exam: Present: atraumatic, normal inspection - Neck Neck exam general surgery: Present: normal inspection, supple - Respiratory Respiratory exam: Present: decreased breath sounds, wheezes (mild). Absent: rales, respiratory distress, rhonchi - Cardiovascular Cardiovascular exam: Present: irregular rhythm, +S1, +S2. Absent: tachycardia - GI/Abdominal GI/Abdominal exam: Present: normal bowel sounds, soft. Absent: rebound, rigid, tenderness - Extremities Exam Extremities exam: Present: calf tenderness (left leg), pedal edema, tenderness (Left lower leg), warm - Back Exam Back exam: Absent: CVA tenderness (L), CVA tenderness (R) - Psychiatric Psychiatric exam: Present: normal affect, normal mood - Skin Skin exam: Absent: rash Internal Med - H&P Results - Labs CBC & Chem 7: 06/22/19 05:42 06/22/19 05:42 Labs: Short CBC 06/21/19 06/22/19 Range/Units 22:44 05:42 WBC 7.3 7.9 (4.3-11.1) K/mcL Hgb 10.6 L 9.6 L (11.5-15.4) g/dL Hct 33.7 L 31.3 L (35.3-44.9) % Plt Count 100 L 91 L (140-400) K/mcL Neutrophils # 6.3 6.4 (1.6-8.9) K/mcL BMP 06/21/19 06/22/19 22:44 05:42 Sodium 142 141 Potassium 5.0 5.0 Chloride 108 H 107 Carbon Dioxide 24 28 BUN 59 H 57 H Creatinine 2.40 H 2.48 H Glucose 98 83 Calcium 9.3 9.3 Cardiac Enzymes 06/21/19 06/22/19 Range/Units 22:44 05:42 Troponin I 0.03 0.03 (< 0.04) ng/mL Liver Function 06/21/19 06/22/19 Range/Units 22:44 05:42 Total Bilirubin 0.4 0.3 (0.3-1.0) mg/dL AST 22 18 (13-39) Units/L ALT 17 15 (7-52) Units/L Alkaline Phosphatase 68 69 (34-104) Units/L Albumin 3.7 3.4 L (3.5-5.7) g/dL Urine 06/21/19 Range/Units 22:45 Urine Color Yellow (Yellow) Urine Clarity Cloudy A (Clear) Urine pH 6.0 (5.0-8.0) pH Units Ur Specific [place] 1.013 (1.010-1.025) Urine Protein 100 H (Neg-Trace) mg/dL Urine Glucose (UA) Normal (Normal) mg/dL - Impressions ITS Impressions Chest X-Ray 06/21/19 22:48 IMPRESSION: No acute cardiopulmonary abnormality. Stable pleuroparenchymal opacity left lower thorax. D/ / Lloyd Archuleta MD / Lloyd Archuleta MD Interpreting Provider: Lloyd Archuleta MD - Assessment and Plan (1) Chest pain Current Visit: Yes Status: Acute Assessment and plan: Will admit the pt into Tele for observation Will place pt on manager cardiac so far negative troponin x 2 EKG reviewed - no acute ischemic changes noticed Cont on ASA and Nitro PRN for pain Will check FLP in AM Will get pharmacological nuclear stress test since pt is high risk for ACS Cont home med Metoprolol and statin Qualifiers: Chest pain type: unspecified Qualified Code(s): R07.9 - Chest pain, unspecified (2) Diastolic CHF, acute on chronic Current Visit: No Status: Acute Assessment and plan: She does have significant volume overload started on IV Lasix 40 mg b.i.d. resumed other home medications aspirin, Statin, and metoprolol reviewed her Echo from 2018 showed preserved LVEF and moderate diastolic dysfunction will repeat echocardiogram again (3) Bilateral lower extremity edema Current Visit: Yes Status: Acute Assessment and plan: Mostly due to CHF Cont IV lasix since she does have tenderness also will obtain venous doppler of b/l LE (4) CKD (chronic kidney disease) stage 3, GFR 30-59 ml/min Current Visit: No Status: Acute Assessment and plan: Stable creatinine at baseline continue close monitoring Avoid nephrotoxic medications (5) Atrial fibrillation Current Visit: No Status: Chronic Assessment and plan: Rate controlled with home medication metoprolol not all anticoagulation due to high risk for falls Qualifiers: Atrial fibrillation type: permanent Qualified Code(s): I48.21 - Permanent atrial fibrillation (6) HLD (hyperlipidemia) Current Visit: No Status: Chronic Assessment and plan: Continue home medication Crestor Qualifiers: Hyperlipidemia type: mixed hyperlipidemia Qualified Code(s): E78.2 - Mixed hyperlipidemia (7) HTN (hypertension) Current Visit: No Status: Chronic Assessment and plan: Stable blood pressure with current home medications Qualifiers: Hypertension type: essential hypertension Qualified Code(s): I10 - Essential (primary) hypertension (8) Legally blind Current Visit: No Status: Chronic - Time Spent With Patient Total time spent is greater than 50% in coordination of care (as documented) at patient's floor/unit and/or counseling patient:
--- NOTE | 2019-06-22 13:26 | Electrocardiograph Report ---
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
[2019-06-22] MEDS: Loratadine 10 MG TABLET PO SCH (13:46)
[2019-06-22] MEDS: Furosemide 40 MG/4 ML VIAL IVP SCH ×2 (15:10→22:04)
[2019-06-22] MEDS: Acetaminophen 325 MG TABLET PO PRN ×2 (15:23→22:11)
[2019-06-22] MEDS ORDERED: CYCLOSPORINE BOTH EYES SCH (21:00)
[2019-06-22] MEDS: levETIRAcetam 250 MG TABLET PO SCH (21:59)
--- NOTE | 2019-06-23 00:59 | Event Note ---
Date of Encounter: 06/23/19 Time of Encounter: 00:57 Notified by nurse of patient not having code status. Discussed with patient at bedside who remains alert and oriented. Would like to discuss her code status tomorrow with her nephew but is agreeable to remaining a full code until then. Informed her she can change her code status anytime she wants. Code status entered into [employer].
[2019-06-23 01:24] LABS: Calcium 8.8 mg/dL (8.6-10.3); Potassium 4.2 mEq/L (3.5-5.1)
[2019-06-23] MEDS: Aspirin 81 MG TAB.CHEW PO SCH (08:18)
[2019-06-23] MEDS: levETIRAcetam 250 MG TABLET PO SCH ×2 (08:19→20:37)
[2019-06-23] MEDS: Furosemide 40 MG/4 ML VIAL IVP SCH ×2 (08:26→20:40)
[2019-06-23] MEDS: Fluticasone Propionate Nasal 50 MCG/SPRAY BOTTLE NS SCH (08:26)
[2019-06-23] MEDS ORDERED: NON-FORMULARY MEDICATION 1 EACH EACH (Fluticasone/Vilanterol [Breo Ellipta 100-25 Mcg Inh] IH SCH (09:00)
[2019-06-23] MEDS ORDERED: Ertapenem 1,000 MG in 0.9 % Sodium Chloride Mini Bag 100 ML IVPB SCH (09:00)
[2019-06-23] MEDS ORDERED: Ertapenem 500 MG in 0.9 % Sodium Chloride Mini Bag 100 ML IVPB SCH (09:00)
--- NOTE | 2019-06-23 10:52 | Internal Med Progress Note ---
<Gary Navarrete - Last Filed: 06/23/19 10:47> Hospitalist Progress Note - Encounter Date of Encounter: 06/23/19 Time of Encounter: 08:30 - Subjective Interval History: When seen today, patient was resting comfortably in her bed. She denies any chest pain or SOB. She continues to admit to swelling in her LE but was unable to tell me if it has gotten worse or not. She denies any fever, wheezing, or cough. Denies any abdominal pain, nausea, or vomiting. - Exam Vitals: Temp Pulse Resp BP Pulse Ox 98.1 F 86 19 108/56 95 06/23/19 06:37 06/23/19 06:37 06/23/19 06:37 06/23/19 06:37 06/23/19 06:37 Exam: GENERAL APPEARANCE: Obese, alert and cooperative, and appears to be in no acute distress. HEAD: normocephalic. EYES: vision is grossly intact. EARS: hearing grossly intact. NOSE: No nasal discharge. CARDIAC: Normal S1 and S2. No S3, S4 or murmurs. Rhythm is regular. There is no peripheral edema, cyanosis or pallor. Extremities are warm and well perfused. Capillary refill is less than 2 seconds. No carotid bruits. LUNGS: Clear to auscultation and percussion without rales, rhonchi, wheezing or diminished breath sounds. ABDOMEN: Positive bowel sounds. Soft, nondistended, nontender. No guarding or rebound. No masses. MUSKULOSKELETAL: Adequately aligned spine. ROM intact spine and extremities. No joint erythema or tenderness. Normal muscular development. BACK: Examination of the spine reveals normal gait and posture, no spinal deformity, symmetry of spinal muscles, without tenderness, decreased range of motion or muscular spasm. LOWER EXTREMITY: Examination of both feet reveals all toes to be normal in size and symmetry, normal range of motion, normal sensation with distal capillary filling of less than 2 seconds without tenderness, discoloration, nodules, weakness or deformity. She does have +1 b/l pitting edema of her LE. SKIN: Skin normal color, texture and turgor with no lesions or eruptions. PSYCHIATRIC: The mental examination revealed the patient was oriented to person, place, and time. The patient was able to demonstrate good judgement and reason, without hallucinations, abnormal affect or abnormal behaviors during the examination. - Assessment and Plan (1) Chest pain Current Visit: Yes Status: Acute Assessment and Plan: Troponin levels have been negative x 3. EKG reviewed - no acute ischemic changes noticed. Pharmacological nuclear stress test was negative for ischemia. - Cont on ASA and Nitro PRN for pain. - Cont home med Metoprolol and statin. - Continue telemetry. (2) Diastolic CHF, acute on chronic Current Visit: No Status: Acute Assessment and Plan: Had significant significant volume overload on admission. Started on IV Lasix 40 mg b.i.d. Her fluid status has improved: weight has decreased from 86 kg to 82 kg. reviewed her Echo from 2018 showed preserved LVEF and moderate diastolic dysfunction. Repeat echo shows a normal EF of 60% with atypical septal motion consistent with post-operative status and right ventricle grossly appears mildly dilated with normal systolic function. - Continue lasix IV 40 mg BID. - Continue ASA, statin, and metoprolol. (3) Bilateral lower extremity edema Current Visit: Yes Status: Acute Assessment and Plan: Mostly due to CH. Does seem to be improving. Venous doppler of b/l LE negative for DVT. - Cont IV lasix. (4) CKD (chronic kidney disease) Current Visit: Yes Status: Acute Assessment and Plan: Stable creatinine at baseline. - continue close monitoring - Avoid nephrotoxic medications (5) Atrial fibrillation Current Visit: No Status: Acute Assessment and Plan: Rate controlled with home medication metoprolol. Not all anticoagulation due to high risk for falls. - Continue metoprolol. (6) HLD (hyperlipidemia) Current Visit: No Status: Acute Assessment and Plan: Continue home medication Crestor. (7) Hypertension Current Visit: No Status: Chronic Assessment and Plan: Stable blood pressure with current home medications. (8) Legally blind Current Visit: No Status: Chronic - Time Spent with Patient Total time spent is greater than 50% in coordination of care (as documented) at patient's floor/unit and/or counseling patient: Internal Medicine: Result - Labs CBC & Chem 7: 06/22/19 05:42 06/23/19 00:35 Labs: BMP 06/23/19 00:35 Sodium 140 Potassium 4.2 Chloride 107 Carbon Dioxide 26 BUN 56 H Creatinine 2.37 H Glucose 115 H Calcium 8.8 Cardiac Enzymes 06/22/19 06/22/19 Range/Units 10:56 17:41 Troponin I 0.03 0.03 (< 0.04) ng/mL - ABG Interpretation ABG results: PT/INR, D-dimer PT 14.2 Seconds (9.4-12.1) H 06/22/19 05:42 - Impressions Impressions Echocardiogram 06/22/19 20:26 Impressions: LVEF 60%. Basal sigmoid septum. Atypical septal motion consistent with post-operative status. Indeterminate diastolic function. Right ventricle grossly appears mildly dilated with normal systolic function. Bi-atrial enlargement. Mild-moderate mitral regurgitation. Turbulent, possibly moderate bioprosthetic aortic regurgitation appears paravalvular. No prosthetic aortic stenosis. Moderate-severe tricuspid regurgitation. Mild-moderate pulmonic regurgitation. Severe pulmonary hypertension. Left Ventricular Wall Motion: Rest Echo Findings All wall segments showed normal motion. Findings: Study Quality * Technically adequate exam. ECG Findings * Possibly atrial fibrillation. Left Ventricle * LVEF 60%. * Basal sigmoid septum. * Atypical septal motion consistent with post-operative status. * Indeterminate diastolic function. Right Ventricle * Right ventricle grossly appears mildly dilated with normal systolic function. Left Atrium * Moderately dilated left atrium. Right Atrium * Moderately dilated right atrium. Mitral Valve * Mildly thickened/calcified mitral valve leaflets. * Mild-moderate mitral regurgitation. * No mitral stenosis. Aortic Valve * Biologic aortic prosthesis not optimally visualized. * Turbulent, possibly moderate bioprosthetic aortic regurgitation appears paravalvular. * No aortic stenosis. Tricuspid Valve * Normal tricuspid valve structure. * Moderate-severe tricuspid regurgitation. * Estimated RA pressure is 20 mmHg. * Estimated RVSP is 71 mmHg. * Severe pulmonary hypertension. Pulmonic Valve * Pulmonic valve is not well visualized. * No pulmonic stenosis. * Mild-moderate pulmonic regurgitation. Pulmonary Artery * Pulmonary artery not well visualized. Aorta * Normally sized aortic root. * Proximal ascending thoracic aorta not well visualized. Pericardium * There is no pericardial effusion present. Interatrial Septum * No evidence of PFO by color Doppler. IVC * The IVC is dilated. * < 50% respiratory change. Consult Discharge Plan - Plan Referrals: Luca Meyer MD [Primary Care Provider] - <Edgard Newman - Last Filed: 06/23/19 13:02> Hospitalist Progress Note - Encounter Date of Encounter: 06/23/19 - Exam Vitals: Temp Pulse Resp BP Pulse Ox 97.6 F 79 15 111/64 96 06/23/19 10:49 06/23/19 10:49 06/23/19 10:54 06/23/19 10:49 06/23/19 10:54 - Assessment and Plan (1) Chest pain Current Visit: Yes Status: Acute (2) Diastolic CHF, acute on chronic Current Visit: No Status: Acute (3) Bilateral lower extremity edema Current Visit: Yes Status: Acute (4) CKD (chronic kidney disease) stage 3, GFR 30-59 ml/min Current Visit: No Status: Acute (5) Atrial fibrillation Current Visit: No Status: Chronic (6) HLD (hyperlipidemia) Current Visit: No Status: Chronic (7) HTN (hypertension) Current Visit: No Status: Chronic (8) Legally blind Current Visit: No Status: Chronic - Time Spent with Patient Total time spent is greater than 50% in coordination of care (as documented) at patient's floor/unit and/or counseling patient: Internal Medicine: Result - Labs CBC & Chem 7: 06/22/19 05:42 06/23/19 00:35 Labs: BMP 06/23/19 00:35 Sodium 140 Potassium 4.2 Chloride 107 Carbon Dioxide 26 BUN 56 H Creatinine 2.37 H Glucose 115 H Calcium 8.8 Cardiac Enzymes 06/22/19 Range/Units 17:41 Troponin I 0.03 (< 0.04) ng/mL - ABG Interpretation ABG results: PT/INR, D-dimer PT 14.2 Seconds (9.4-12.1) H 06/22/19 05:42 - Impressions Impressions Echocardiogram 06/22/19 20:26 Impressions: LVEF 60%. Basal sigmoid septum. Atypical septal motion consistent with post-operative status. Indeterminate diastolic function. Right ventricle grossly appears mildly dilated with normal systolic function. Bi-atrial enlargement. Mild-moderate mitral regurgitation. Turbulent, possibly moderate bioprosthetic aortic regurgitation appears paravalvular. No prosthetic aortic stenosis. Moderate-severe tricuspid regurgitation. Mild-moderate pulmonic regurgitation. Severe pulmonary hypertension. Left Ventricular Wall Motion: Rest Echo Findings All wall segments showed normal motion. Findings: Study Quality * Technically adequate exam. ECG Findings * Possibly atrial fibrillation. Left Ventricle * LVEF 60%. * Basal sigmoid septum. * Atypical septal motion consistent with post-operative status. * Indeterminate diastolic function. Right Ventricle * Right ventricle grossly appears mildly dilated with normal systolic function. Left Atrium * Moderately dilated left atrium. Right Atrium * Moderately dilated right atrium. Mitral Valve * Mildly thickened/calcified mitral valve leaflets. * Mild-moderate mitral regurgitation. * No mitral stenosis. Aortic Valve * Biologic aortic prosthesis not optimally visualized. * Turbulent, possibly moderate bioprosthetic aortic regurgitation appears paravalvular. * No aortic stenosis. Tricuspid Valve * Normal tricuspid valve structure. * Moderate-severe tricuspid regurgitation. * Estimated RA pressure is 20 mmHg. * Estimated RVSP is 71 mmHg. * Severe pulmonary hypertension. Pulmonic Valve * Pulmonic valve is not well visualized. * No pulmonic stenosis. * Mild-moderate pulmonic regurgitation. Pulmonary Artery * Pulmonary artery not well visualized. Aorta * Normally sized aortic root. * Proximal ascending thoracic aorta not well visualized. Pericardium * There is no pericardial effusion present. Interatrial Septum * No evidence of PFO by color Doppler. IVC * The IVC is dilated. * < 50% respiratory change. - Attending Attestation I examined this patient and my medical decision-making was reviewed with the Resident Physician Dr. Navarrete. I agree with the documented findings, disposition and treatment plan as described except to the extent set forth below. Ms. aBrber is a 73 year old female with a past medical history of flow hyperlipidemia, hypertension, chronic anemia, atrial fibrillation, CKD stage IV, COPD, GERD, anxiety disorder, major depressive disorder, OA, Pablo Jose Francisco syndrome, DJD and chronic diastolic CHF pt presented to ER from local [facility] with c/o chest pain and shortness of breath. She denied any more CP. Her SOB and b/l LE edema also better today. Will continu e IV Lasix for one more day. Her stress test came back as negative for ischemia / infarction. <Leigh Annhyan,Gary - Last Filed: 06/23/19 10:47> (1) Chest pain Qualifiers: Chest pain type: unspecified Qualified Code(s): R07.9 - Chest pain, unspecified (4) CKD (chronic kidney disease) Qualifiers: Chronic kidney disease stage: unspecified stage Qualified Code(s): N18.9 - Chronic kidney disease, unspecified (5) Atrial fibrillation Qualifiers: Atrial fibrillation type: persistent (6) HLD (hyperlipidemia) Qualifiers: Hyperlipidemia type: unspecified Qualified Code(s): E78.5 - Hyperlipidemia, unspecified (7) Hypertension Qualifiers: Hypertension type: essential hypertension Qualified Code(s): I10 - Essential (primary) hypertension <Edgard Newman - Last Filed: 06/23/19 13:02> (1) Chest pain Qualifiers: Chest pain type: unspecified Qualified Code(s): R07.9 - Chest pain, unspecified (5) Atrial fibrillation Qualifiers: Atrial fibrillation type: permanent Qualified Code(s): I48.21 - Permanent atrial fibrillation (6) HLD (hyperlipidemia) Qualifiers: Hyperlipidemia type: mixed hyperlipidemia Qualified Code(s): E78.2 - Mixed hyperlipidemia (7) HTN (hypertension) Qualifiers: Hypertension type: essential hypertension Qualified Code(s): I10 - Essential (primary) hypertension
[2019-06-23] MEDS: Budesonide/Formoterol 80/4.5 1 PUFF INH IH SCH ×2 (10:53→19:57)
[2019-06-23] MEDS: Acetaminophen 325 MG TABLET PO PRN (20:37)
[2019-06-24 07:39] VITALS: BP 112/66
[2019-06-24] MEDS: Budesonide/Formoterol 80/4.5 1 PUFF INH IH SCH (08:02)
--- NOTE | 2019-06-24 09:31 | Discharge Summary ---
<Gary Navarrete - Last Filed: 06/24/19 09:14> Date of Encounter: 06/24/19 Time of Encounter: 08:30 - Discharge Diagnosis (1) Chest pain Priority: Primary Status: Acute Qualifiers: Chest pain type: unspecified Qualified Code(s): R07.9 - Chest pain, unspecified (2) Diastolic CHF, acute on chronic Priority: Primary Status: Acute (3) Bilateral lower extremity edema Priority: Primary Status: Acute (4) CKD (chronic kidney disease) Priority: Secondary Status: Acute Qualifiers: Chronic kidney disease stage: stage 4 (severe) Qualified Code(s): N18.4 - Chronic kidney disease, stage 4 (severe) (5) Atrial fibrillation Priority: Secondary Status: Acute Qualifiers: Atrial fibrillation type: paroxysmal Qualified Code(s): I48.0 - Paroxysmal atrial fibrillation (6) HLD (hyperlipidemia) Priority: Secondary Status: Acute Qualifiers: Hyperlipidemia type: unspecified Qualified Code(s): E78.5 - Hyperlipidemia, unspecified (7) Hypertension Priority: Primary Status: Chronic Qualifiers: Hypertension type: essential hypertension Qualified Code(s): I10 - Essential (primary) hypertension (8) Legally blind Priority: Secondary Status: Chronic Hospital course: Ms. Barber is a 73 year old female with a past medical history of flow hyper lipidemia, hypertension, chronic anemia, atrial fibrillation, CKD stage IV, COPD, GERD, anxiety disorder, major depressive disorder, OA, Pablo Jose Francisco syndrome, DJD and chronic diastolic CHF who presented to ER from local [facility] with complaints of chest pain and shortness of breath. She was also complaining of SOB, dyspnea on exertion, and b/l lower extremity edema. Upon arrival, EKG showed no acute ischemic changes. Her troponin levels were negative x 3. Was given ASA, placed on nitro PRN, and admitted ffor observation. Echocardiogram showed a normal EF of 60% with atypical septal motion consistent with post- operative status. Pharmacologic stress test was negative for ischemia or infarct. Patient also presented with LE swelling bilaterally likely secondary to CHF exacerbation. She was started on Lasix IV and metoprolol. Her volume status improved during her hospital course. She will need to continue PO lasix upon discharge. Patient also has a history or recurrent UTI with multi-drug resistant strains. She was started on Meropnem (based upon past sensitivities) when her UA showed signs of an infection. Today her urine culture came back positive for yeast infection. She will be discharge with a 7 day supply of Diflucan. When seen today, patient denied any chest pain or SOB. She denies any light- headedness or dizziness. Denied any fever. Denied any abdominal pain, nausea, or vomiting. Denies any diarrhea. Patient has been approved for placement at [facility]. Warned patient that if she experiences any increased swelling, chest pain, SOB, or fever to contact her PCP or report immediately to the ER. Patient will need to follow-up with her PCP in the next 3-4 days. - Time Spent with Patient Total time spent providing and/or coordinating discharge services: Time spent: Greater than 30 minutes - Discharge Medications Prescriptions: New Aspirin 81 mg PO DAILY #30 tab.chew Fluconazole [Diflucan] 100 mg PO DAILY 14 Days #14 tablet Furosemide [Lasix] 40 mg PO BID #60 tablet Continued Cyclosporine [Restasis] 1 drop BOTH EYES BID Calcitriol [Rocaltrol] 0.25 mcg PO DAILY Albuterol Sulfate [Proventil Inhaler] 2 puff IH Q4HR PRN PRN Reason: Shortness Of Breath Docusate [Colace] 100 mg PO BID PRN capsule PRN Reason: Constipation Fluticasone Propionate Nasal [Flonase] 50 mcg NS DAILY bottle Fluticasone/Vilanterol [Breo Ellipta 100-25 Mcg INH] 1 puff IH DAILY Calcium Carbonate [Tums] 1,000 mg PO Q4HR PRN #30 tab.chew PRN Reason: Heartburn LevETIRAcetam [Keppra] 500 mg PO BID Rosuvastatin [Crestor] 20 mg PO HS Ferrous Sulfate [Iron] 325 mg PO DAILY Loperamide [Imodium] 2 mg PO Q6H PRN MDD 8 PRN Reason: Diarrhea Acetaminophen [Tylenol] 325 mg PO Q4HR PRN PRN Reason: Pain Hydrocodone/Acetaminophen [Hydrocodon-Acetaminophen 5-325] 1 each PO Q6HR PRN PRN Reason: Pain Pantoprazole Sodium [Protonix] 20 mg PO DAILY Levothyroxine Sodium [Levoxyl] 125 mcg PO QAM Loratadine [Claritin] 10 mg PO DAILY Metoprolol [Lopressor] 25 mg PO BID Ondansetron HCl 8 mg PO Q6H PRN PRN Reason: Nausea Potassium Chloride [K-Tab ER] 20 meq PO BID Quetiapine Fumarate [Seroquel] 25 mg PO HS Discontinued Furosemide [Lasix] 40 mg PO DAILY Home Medications: Cyclosporine [Restasis] 1 drop BOTH EYES BID 04/30/15 [History] Calcitriol [Rocaltrol] 0.25 mcg PO DAILY 03/20/17 [History] Albuterol Sulfate [Proventil Inhaler] 2 puff IH Q4HR PRN 08/27/17 [History] Docusate [Colace] 100 mg PO BID PRN capsule 12/02/17 [Rx] Fluticasone Propionate Nasal [Flonase] 50 mcg NS DAILY bottle 12/02/17 [Rx] Fluticasone/Vilanterol [Breo Ellipta 100-25 Mcg INH] 1 puff IH DAILY 03/29/18 [History] Calcium Carbonate [Tums] 1,000 mg PO Q4HR PRN #30 tab.chew 04/29/18 [Rx] LevETIRAcetam [Keppra] 500 mg PO BID 06/18/18 [History] Ferrous Sulfate [Iron] 325 mg PO DAILY 10/28/18 [History] Loperamide [Imodium] 2 mg PO Q6H PRN MDD 8 10/28/18 [History] Rosuvastatin [Crestor] 20 mg PO HS 10/28/18 [History] Acetaminophen [Tylenol] 325 mg PO Q4HR PRN 06/22/19 [History] Hydrocodone/Acetaminophen [Hydrocodon-Acetaminophen 5-325] 1 each PO Q6HR PRN 06/22/19 [History] Levothyroxine Sodium [Levoxyl] 125 mcg PO QAM 06/22/19 [History] Loratadine [Claritin] 10 mg PO DAILY 06/22/19 [History] Metoprolol [Lopressor] 25 mg PO BID 06/22/19 [History] Ondansetron HCl 8 mg PO Q6H PRN 06/22/19 [History] Pantoprazole Sodium [Protonix] 20 mg PO DAILY 06/22/19 [History] Potassium Chloride [K-Tab ER] 20 meq PO BID 06/22/19 [History] Quetiapine Fumarate [Seroquel] 25 mg PO HS 06/22/19 [History] Aspirin 81 mg PO DAILY #30 tab.chew 06/24/19 [Rx] Fluconazole [Diflucan] 100 mg PO DAILY 14 Days #14 tablet 06/24/19 [Rx] Furosemide [Lasix] 40 mg PO BID #60 tablet 06/24/19 [Rx] Allergies/Adverse Reactions: Allergy/AdvReac Type Severity Reaction Status Date / Time ciprofloxacin [From Cipro] Allergy Hives Verified 06/22/19 14:36 meperidine [From Demerol] AdvReac Vomiting Verified 06/22/19 14:36 Date of admission: 06/22/19 01:07 Primary care physician: Luca Meyer MD Consults: 06/22/19 08:06 Consult to [facility] [CONS] Routine Reason for SW Consult: Patient from [facility]. 06/23/19 09:25 Consult to Nurse Navigator [CONS] Routine Comment: CHF. Patient being discharged to [facility]. Discharging clinician: Gary Navarrete Anticipated date of discharge: 06/24/19 - Constitutional Vitals: Temp Pulse Resp BP Pulse Ox 97.9 F 78 16 112/66 95 06/24/19 07:35 06/24/19 07:35 06/24/19 08:02 06/24/19 07:35 06/24/19 08:02 General appearance: Present: cooperative, A&O X 3, no acute distress, answers questions appropriately Exam: GENERAL APPEARANCE: Obese, alert and cooperative, and appears to be in no acute distress. HEAD: normocephalic. EYES: vision is grossly intact. EARS: hearing grossly intact. NOSE: No nasal discharge. CARDIAC: Normal S1 and S2. No S3, S4 or murmurs. Rhythm is regular. There is no peripheral edema, cyanosis or pallor. Extremities are warm and well perfused. Capillary refill is less than 2 seconds. No carotid bruits. LUNGS: Clear to auscultation and percussion without rales, rhonchi, wheezing or diminished breath sounds. ABDOMEN: Positive bowel sounds. Soft, nondistended, nontender. No guarding or rebound. No masses. MUSKULOSKELETAL: Adequately aligned spine. ROM intact spine and extremities. No joint erythema or tenderness. Normal muscular development. BACK: Examination of the spine reveals normal gait and posture, no spinal deformity, symmetry of spinal muscles, without tenderness, decreased range of motion or muscular spasm. LOWER EXTREMITY: Examination of both feet reveals all toes to be normal in size and symmetry, normal range of motion, normal sensation with distal capillary filling of less than 2 seconds without tenderness, discoloration, nodules, weakness or deformity. She does have +1 b/l pitting edema of her LE. SKIN: Skin normal color, texture and turgor with no lesions or eruptions. PSYCHIATRIC: The mental examination revealed the patient was oriented to person, place, and time. The patient was able to demonstrate good judgement and reason, without hallucinations, abnormal affect or abnormal behaviors during the examination. - Patient Status Disposition: Transfer SNF Condition: Good Functional capacity at discharge: independent ambulation Overall status at discharge: patient is progressing back to baseline - Discharge Instructions Instructions: Furosemide (By mouth), Aspirin (By mouth), Fluconazole (By mouth), Chest Pain (DC), Anemia (GEN) Follow Up With: Luca Meyer MD [Primary Care Provider] - - Diet and Activity Activity: increase activity as tolerated Diet: low salt diet <Edgard Newman - Last Filed: 06/24/19 12:52> Date of Encounter: 06/24/19 - Discharge Diagnosis (1) Chest pain Status: Acute Qualifiers: Chest pain type: unspecified Qualified Code(s): R07.9 - Chest pain, unspecified (2) Diastolic CHF, acute on chronic Status: Acute (3) Bilateral lower extremity edema Status: Acute (4) CKD (chronic kidney disease) stage 3, GFR 30-59 ml/min Status: Acute (5) Atrial fibrillation Status: Chronic Qualifiers: Atrial fibrillation type: permanent Qualified Code(s): I48.21 - Permanent atrial fibrillation (6) HLD (hyperlipidemia) Status: Chronic Qualifiers: Hyperlipidemia type: mixed hyperlipidemia Qualified Code(s): E78.2 - Mixed hyperlipidemia (7) HTN (hypertension) Status: Chronic Qualifiers: Hypertension type: essential hypertension Qualified Code(s): I10 - Essential (primary) hypertension (8) Legally blind Status: Chronic Hospital course: Ms. Barber is a 73 year old female - Time Spent with Patient Total time spent providing and/or coordinating discharge services: Date of admission: 06/22/19 01:07 Primary care physician: Luca Meyer MD Consults: 06/22/19 08:06 Consult to [facility] [CONS] Routine Reason for SW Consult: Patient from [facility]. 06/23/19 09:25 Consult to Nurse Navigator [CONS] Routine Comment: CHF. Patient being discharged to [facility]. - Constitutional Vitals: Temp Pulse Resp BP Pulse Ox 97.9 F 78 16 112/66 95 06/24/19 07:35 06/24/19 07:35 06/24/19 08:02 06/24/19 07:35 06/24/19 08:02 - Attending Attestation I examined this patient and my medical decision-making was reviewed with the Resident Physician Dr. Navarrete. I agree with the documented findings, disposition and treatment plan as described except to the extent set forth below. Ms. Barber is a 73 year old female with a past medical history of flow hyperlipidemia, hypertension, chronic anemia, atrial fibrillation, CKD stage IV, COPD, GERD, anxiety disorder, major depressive disorder, OA, Pablo Jose Francisco syndrome, DJD and chronic diastolic CHF pt presented to ER from local [facility] with c/o chest pain and shortness of breath. She denied any more CP. Her SOB and b/l LE edema also better today. Will d/c her back to [facility] in stable condition today. Recommend to continue Lasix 40mg BID x 5 more days then continue 40mg PO Daily.
[2019-06-24] MEDS: Furosemide 40 MG/4 ML VIAL IVP SCH (09:42)
[2019-06-24] MEDS: Loratadine 10 MG TABLET PO SCH (09:43)
[2019-06-24] MEDS: levETIRAcetam 250 MG TABLET PO SCH (09:43)
[2019-06-24] MEDS: Aspirin 81 MG TAB.CHEW PO SCH (09:43)
[2019-06-24] MEDS: Fluticasone Propionate Nasal 50 MCG/SPRAY BOTTLE NS SCH (09:44)
--- NOTE | 2019-06-24 09:52 | Physician Discharge Referral ---
[facility] Referral Info Transfer To[facility] Provider in Charge after Transfer: PCP Institutional Level of Care: Skilled - Diagnosis (1) Chest pain Priority: Primary Status: Acute (2) Diastolic CHF, acute on chronic Priority: Primary Status: Acute (3) Bilateral lower extremity edema Priority: Primary Status: Acute (4) CKD (chronic kidney disease) Priority: Secondary Status: Acute (5) Atrial fibrillation Priority: Secondary Status: Acute (6) HLD (hyperlipidemia) Priority: Secondary Status: Acute (7) Hypertension Priority: Secondary Status: Chronic (8) Legally blind Priority: Secondary Status: Chronic - Transfer Medications Prescriptions: Aspirin 81 mg PO DAILY #30 tab.chew Prescription Printed Fluconazole [Diflucan] 100 mg PO DAILY 14 Days #14 tablet Prescription Printed Furosemide [Lasix] 40 mg PO BID #60 tablet Prescription Printed Home Medications: Cyclosporine [Restasis] 1 drop BOTH EYES BID 04/30/15 [History] Calcitriol [Rocaltrol] 0.25 mcg PO DAILY 03/20/17 [History] Albuterol Sulfate [Proventil Inhaler] 2 puff IH Q4HR PRN 08/27/17 [History] Docusate [Colace] 100 mg PO BID PRN capsule 12/02/17 [Rx] Fluticasone Propionate Nasal [Flonase] 50 mcg NS DAILY bottle 12/02/17 [Rx] Fluticasone/Vilanterol [Breo Ellipta 100-25 Mcg INH] 1 puff IH DAILY 03/29/18 [History] Calcium Carbonate [Tums] 1,000 mg PO Q4HR PRN #30 tab.chew 04/29/18 [Rx] LevETIRAcetam [Keppra] 500 mg PO BID 06/18/18 [History] Ferrous Sulfate [Iron] 325 mg PO DAILY 10/28/18 [History] Loperamide [Imodium] 2 mg PO Q6H PRN MDD 8 10/28/18 [History] Rosuvastatin [Crestor] 20 mg PO HS 10/28/18 [History] Acetaminophen [Tylenol] 325 mg PO Q4HR PRN 06/22/19 [History] Hydrocodone/Acetaminophen [Hydrocodon-Acetaminophen 5-325] 1 each PO Q6HR PRN 06/22/19 [History] Levothyroxine Sodium [Levoxyl] 125 mcg PO QAM 06/22/19 [History] Loratadine [Claritin] 10 mg PO DAILY 06/22/19 [History] Metoprolol [Lopressor] 25 mg PO BID 06/22/19 [History] Ondansetron HCl 8 mg PO Q6H PRN 06/22/19 [History] Pantoprazole Sodium [Protonix] 20 mg PO DAILY 06/22/19 [History] Potassium Chloride [K-Tab ER] 20 meq PO BID 06/22/19 [History] Quetiapine Fumarate [Seroquel] 25 mg PO HS 06/22/19 [History] Aspirin 81 mg PO DAILY #30 tab.chew 06/24/19 [Rx] Fluconazole [Diflucan] 100 mg PO DAILY 14 Days #14 tablet 06/24/19 [Rx] Furosemide [Lasix] 40 mg PO BID #60 tablet 06/24/19 [Rx] Allergies/Adverse Reactions: Allergy/AdvReac Type Severity Reaction Status Date / Time ciprofloxacin [From Cipro] Allergy Hives Verified 06/22/19 14:36 meperidine [From Demerol] AdvReac Vomiting Verified 06/22/19 14:36 - Respiratory Orders Smoking Cessation: Smoking cessation has been advised. For more information, call the [place] Tobacco Quit Line at 5-394-ERRBNOW. - Lab Orders Lab Orders: Other (include drug levels w/frequency) (Will need repeat BMP in 2 weeks to check for potassium level given that she is on lasix.) - Ancillary Orders May use pressure relief devices daily prn, May go on YUN w/family/respon green party w/meds at nurse discretion PRN, May consult with Dentist, Back Roll Lathe Operator, Appointment Scheduler PRN - Advance Directives Code Status: Full Code - Mobility Orders Ambulate - Rehabiliation Orders Rehab Potential: Fair - Treatments Skin tear care topically daily PRN per policy, May check for fecal impaction rectally daily PRN, Fleet enema rectally every other day PRN cleansing purposes - Diet Orders No Added Salt (MADELEINE), Renal CERTIFICATION: I certify that the transfer of the above named patient to an Extended Care Facility is necessary for the continuing treatment of the diagnosis listed. The above information is true and accurate reflection of patient's current condition. Confidential - Redisclosure prohibited without a patient's written consent.
== END 2019-06-24 11:37 ==
LOC: 3BNU 22:25 → EMEROOARM 22:25 → SUATTDRO 06-22 01:07 → 3BNU 06-22 01:58
PROVIDERS: ADMIT Internal Medicine; ATTEND Family Medicine

== ENCOUNTER 2019-12-05 07:48 | Inpatient (IN) ==
[2019-12-05 08:19] LABS: ABG Base Excess -1 mEq/L (-2 to 3); ABG HCO3 27 mEq/L (21-27); ABG Oxygen Saturation 97 % (95-98); ABG PCO2 55 mmHg (35-45); ABG PO2 99 mmHg (85-104); ABG TCO2 28 mEq/L (20-26)
[2019-12-05] MEDS: 0.9 % Sodium Chloride 1,000 ML IVC ONE (08:22)
[2019-12-05] MEDS ORDERED: *HR* Etomidate 40 MG/20 ML VIAL IVP ONE (08:22)
[2019-12-05] MEDS ORDERED: *HR* Rocuronium Bromide 50 MG/5 ML VIAL IVP ONE (08:22)
[2019-12-05] MEDS ORDERED: 0.9 % Sodium Chloride 1,000 ML ONE (08:23)
[2019-12-05] MEDS ORDERED: Artificial Tears SOLN 15 ML BOTTLE BOTH EYES PRN (08:28)
[2019-12-05] MEDS ORDERED: *HR* Etomidate 20 MG/10 ML AMPUL IVP ONE (08:38)
[2019-12-05] MEDS ORDERED: *HR* Rocuronium Bromide 100 MG/10 ML VIAL IVC ONE (08:38)
[2019-12-05 08:43] LABS: Basophils % 0.2 %; Eosinophils # 0.1 K/mcL (0.0-0.6); Eosinophils % 1.1 %; Hemoglobin 12.6 g/dL (11.5-15.4); Immature Granulocytes % 0.4 % (0-4); Lymphocytes # 2.7 K/mcL (0.6-4.6); Lymphocytes % 23.8 %; Mean Corpuscular HGB Conc 31.5 g/dL (31.6-35.5); Mean Corpuscular Hemoglobin 31.3 pg (28.0-33.3); Mean Corpuscular Volume 99.3 fL (83.0-100.0); Mean Platelet Volume 11.1 fL (9.4-12.4); Monocytes # 0.3 K/mcL (0.0-1.3); Monocytes % 2.7 %; Platelet Count 163 K/mcL (140-400); Red Blood Count 4.03 M/mcL (3.82-4.97); Red Cell Distribution Width 13.5 % (11.5-14.5); Segmented Neutrophils % 71.8 %; White Blood Count 11.2 K/mcL (4.3-11.1)
[2019-12-05 08:46] LABS: INR 1.1; Prothrombin Time 12.7 Seconds (9.4-12.1)
[2019-12-05 08:48] LABS: Activated Partial Thrombo Time 33.9 Seconds (26.0-36.0)
[2019-12-05] MEDS: FentaNYL (PF) 1,000 MCG in 0.9 % Sodium Chloride 80 ML IVC SCH (08:57)
[2019-12-05] MEDS ORDERED: Ipratropium/Albuterol Neb 3 ML IH ONE (09:03)
[2019-12-05 09:10] LABS: Alanine Aminotransferase 13 Units/L (7-52); Albumin 3.9 g/dL (3.5-5.7); Albumin/Globulin Ratio 1.1 (1.1-2.2); Alkaline Phosphatase 67 Units/L (34-104); Aspartate Amino Transferase 21 Units/L (13-39); BUN/Creatinine Ratio 28 (6-26); Bilirubin,Total 0.5 mg/dL (0.3-1.0); Blood Urea Nitrogen 54 mg/dL (8-23); Calcium 9.6 mg/dL (8.6-10.3); Carbon Dioxide 24 mEq/L (23-29); Chloride 104 mEq/L (98-107); Globulin 3.6 g/dL (2.4-3.5); Glucose 217 mg/dL (70-105); Osmolality,Calculated 315 (280-300); Potassium 3.9 mEq/L (3.5-5.1); Sodium 142 mEq/L (136-145); Total Protein 7.5 g/dL (6.4-8.9); Troponin I < 0.03 ng/mL (< 0.04); eGFR For African Americans 30 (> 60); eGFR For Non-African Americans 25 (> 60)
[2019-12-05] MEDS ORDERED: cefTRIAXone 1,000 MG in Water for inj. (sterile) 10 ML IVP ONE (09:45)
[2019-12-05] MEDS ORDERED: Azithromycin 500 MG in D5% in Water 250 ML IVPB ONE (09:46)
[2019-12-05 09:54] LABS: Bilirubin,Urine Negative (Negative); Blood,Urine Small (Negative); Clarity,Urine Cloudy (Clear); Color,Urine Yellow (Yellow); Glucose,Urine (UA) Normal (Normal); Ketones,Urine Negative (Negative); Leukocyte Esterase,Urine Large (Negative); Nitrite,Urine Negative (Negative); Protein,Urine 100 mg/dL (Neg-Trace); Specific Gravity,Urine 1.016 (1.010-1.025); Urobilinogen,Urine Normal (Normal)
[2019-12-05 09:56] LABS: Bacteria,Urine None Seen per hpf (None-Few); Squamous Epithelial Cell,Urine Many per lpf (None-Few); WBC,Urine TNTC per hpf (0-3)
[2019-12-05 10:10] LABS: Hyaline Casts,Urine Few per lpf (None-Few); Yeast,Urine Few per hpf (None Seen)
[2019-12-05] MEDS ORDERED: Piperacillin/Tazobactam 3.375 GM in Water for inj. (sterile) 20 ML IVP ONE (10:14)
[2019-12-05] MEDS ORDERED: Naloxone 0.4 MG/ML INJ IVP PRN (10:25)
[2019-12-05] MEDS: Chlorhexidine Rinse 15 ML MOUTHWASH MM SCH ×2 (13:21→21:26)
[2019-12-05] MEDS ORDERED: Pantoprazole 40 MG VIAL IVP SCH (14:30)
[2019-12-05 14:49] LABS: ABG Base Excess 1 mEq/L (-2 to 3); ABG HCO3 24 mEq/L (21-27); ABG Oxygen Saturation 98 % (95-98); ABG PCO2 30 mmHg (35-45); ABG PH 7.51 pH Units (7.32-7.45); ABG PO2 99 mmHg (85-104); ABG TCO2 25 mEq/L (20-26); Blood Gas VT 350 cc
[2019-12-05] MEDS: *HR* Metoprolol 5 MG/5 ML VIAL IVP SCH ×2 (15:54→21:26)
[2019-12-05 15:55] LABS: Basophils % 0.1 %; Eosinophils % 0.2 %; Hematocrit 38.2 % (35.3-44.9); Immature Granulocytes % 0.4 % (0-4); Lymphocytes # 0.7 K/mcL (0.6-4.6); Lymphocytes % 3.6 %; Mean Corpuscular HGB Conc 31.4 g/dL (31.6-35.5); Mean Corpuscular Hemoglobin 30.8 pg (28.0-33.3); Mean Corpuscular Volume 98.2 fL (83.0-100.0); Mean Platelet Volume 10.8 fL (9.4-12.4); Neutrophils # 17.7 K/mcL (1.6-8.9); Platelet Count 146 K/mcL (140-400); Red Blood Count 3.89 M/mcL (3.82-4.97); Red Cell Distribution Width 13.7 % (11.5-14.5); Segmented Neutrophils % 90.7 %
[2019-12-05 15:58] LABS: White Blood Count 19.5 K/mcL (4.3-11.1)
[2019-12-05 15:59] LABS: INR 0.9; Prothrombin Time 10.5 Seconds (9.4-12.1)
[2019-12-05] MEDS: Ipratropium/Albuterol Neb 3 ML IH SCH ×6 (16:09→23:22)
[2019-12-05] MEDS ORDERED: *HR* Heparin 5,000 UNIT/ML VIAL IVP ONE (16:10)
[2019-12-05] MEDS ORDERED: *HR* Heparin 5,000 UNIT/ML VIAL IVP PRN ×2 (16:10)
[2019-12-05] MEDS ORDERED: CLEAR EYES NATURAL TEARS 15 ML BOTTLE BOTH EYES PRN (16:15)
[2019-12-05] MEDS ORDERED: Heparin 25,000 UNIT/250 ML D5W 25,000 UNIT/250 ML IV.SOLN IVC SCH (16:15)
[2019-12-05] MEDS ORDERED: 0.9 % Sodium Chloride 1,000 ML IVC ONE (16:15)
[2019-12-05 17:00] LABS: Calcium 9.3 mg/dL (8.6-10.3); Potassium 3.4 mEq/L (3.5-5.1)
[2019-12-05 17:15] LABS: Hematocrit 36.4 % (35.3-44.9); Hemoglobin 11.4 g/dL (11.5-15.4); Mean Corpuscular HGB Conc 31.3 g/dL (31.6-35.5); Mean Corpuscular Hemoglobin 30.6 pg (28.0-33.3); Mean Corpuscular Volume 97.8 fL (83.0-100.0); Mean Platelet Volume 10.7 fL (9.4-12.4); Platelet Count 140 K/mcL (140-400); Red Blood Count 3.72 M/mcL (3.82-4.97); Red Cell Distribution Width 13.6 % (11.5-14.5); White Blood Count 20.3 K/mcL (4.3-11.1)
[2019-12-05 17:21] LABS: INR 1.9; Prothrombin Time 21.2 Seconds (9.4-12.1)
[2019-12-05 17:24] LABS: Heparin anti-factor XA UFH > 2.00 IU/mL (0.30-0.70)
[2019-12-05] MEDS: Doxycycline 100 MG in 0.9 % Sodium Chloride Mini Bag 100 ML IVPB SCH (18:02)
[2019-12-05] MEDS: MethylPREDNISolone 40 MG/ML VIAL IVP SCH (18:03)
[2019-12-05] MEDS: Artificial Tears SOLN 15 ML BOTTLE BOTH EYES SCH ×2 (19:42→19:43)
[2019-12-05 21:07] LABS: ABG Base Excess -2 mEq/L (-2 to 3); ABG HCO3 24 mEq/L (21-27); ABG Oxygen Saturation 98 % (95-98); ABG PCO2 46 mmHg (35-45); ABG PH 7.33 pH Units (7.32-7.45); ABG PO2 113 mmHg (85-104); ABG TCO2 26 mEq/L (20-26); Blood Gas Modality AF; Blood Gas VT 340 cc
[2019-12-05] MEDS: CLEAR EYES NATURAL TEARS 15 ML BOTTLE BOTH EYES SCH (21:48)
[2019-12-06] MEDS: 0.9 % Sodium Chloride 1,000 ML IVC ONE (00:10)
[2019-12-06] MEDS ORDERED: 0.9 % Sodium Chloride 1,000 ML ONE (00:11)
[2019-12-06] MEDS ORDERED: 0.9 % Sodium Chloride 1,000 ML IVC ONE (01:12)
[2019-12-06] MEDS: FentaNYL (PF) 1,000 MCG in 0.9 % Sodium Chloride 80 ML IVC SCH ×2 (01:14→21:38)
[2019-12-06] MEDS: Norepinephrine 4 MG in 0.9 % Sodium Chloride 250 ML IVC SCH ×2 (01:16→15:35)
[2019-12-06 01:26] LABS: Basophils % 0.1 %; Eosinophils % 0.1 %; Hematocrit 27.5 % (35.3-44.9); Immature Granulocytes % 0.5 % (0-4); Lymphocytes # 0.7 K/mcL (0.6-4.6); Lymphocytes % 5.6 %; Mean Corpuscular HGB Conc 31.3 g/dL (31.6-35.5); Mean Corpuscular Volume 99.3 fL (83.0-100.0); Mean Platelet Volume 10.7 fL (9.4-12.4); Monocytes # 0.3 K/mcL (0.0-1.3); Monocytes % 2.8 %; Neutrophils # 10.5 K/mcL (1.6-8.9); Platelet Count 100 K/mcL (140-400); Red Blood Count 2.77 M/mcL (3.82-4.97); Red Cell Distribution Width 13.8 % (11.5-14.5); Segmented Neutrophils % 90.9 %; White Blood Count 11.6 K/mcL (4.3-11.1)
[2019-12-06 01:28] LABS: Hemoglobin 8.6 g/dL (11.5-15.4)
[2019-12-06 01:46] LABS: Potassium 2.9 mEq/L (3.5-5.1)
[2019-12-06 01:47] LABS: Albumin 2.6 g/dL (3.5-5.7); Albumin/Globulin Ratio 1.1 (1.1-2.2); Bilirubin,Total 0.4 mg/dL (0.3-1.0); Calcium 7.3 mg/dL (8.6-10.3); Globulin 2.4 g/dL (2.4-3.5); Magnesium 1.9 mg/dL (1.6-2.6); Phosphorous 4.1 mg/dL (2.7-4.5)
[2019-12-06] MEDS: Phenylephrine 10 MG in 0.9 % Sodium Chloride 250 ML IVC SCH ×2 (01:58→23:34)
[2019-12-06 01:59] LABS: Thyroid Stimulating Hormone 1.508 mcIU/mL (0.340-5.600)
[2019-12-06] MEDS: Ipratropium/Albuterol Neb 3 ML IH SCH ×9 (02:33→23:18)
[2019-12-06] MEDS: *HR* Metoprolol 5 MG/5 ML VIAL IVP SCH ×4 (02:47→20:07)
[2019-12-06] MEDS: CLEAR EYES NATURAL TEARS 15 ML BOTTLE BOTH EYES SCH ×7 (03:15→23:25)
[2019-12-06] MEDS: Potassium Chloride 40 MEQ/200 ML BAG IVPB PRN ×3 (03:16→12:35)
[2019-12-06] MEDS: Calcium Gluconate 1gm/50mL 1 GM/50 ML BAG IVPB SCH ×3 (04:41→06:37)
[2019-12-06 05:04] LABS: ABG Base Excess -3 mEq/L (-2 to 3); ABG HCO3 22 mEq/L (21-27); ABG Oxygen Saturation 97 % (95-98); ABG PCO2 36 mmHg (35-45); ABG PH 7.39 pH Units (7.32-7.45); ABG PO2 88 mmHg (85-104); ABG TCO2 23 mEq/L (20-26); Blood Gas Modality ASSIST CONTROL; Blood Gas VT 340 cc
[2019-12-06] MEDS: Doxycycline 100 MG in 0.9 % Sodium Chloride Mini Bag 100 ML IVPB SCH ×2 (05:40→18:34)
[2019-12-06] MEDS: MethylPREDNISolone 40 MG/ML VIAL IVP SCH ×3 (05:41→18:35)
[2019-12-06] MEDS: Pantoprazole 40 MG VIAL IVP SCH ×2 (05:44→18:35)
[2019-12-06] MEDS ORDERED: Potassium Chloride 40 MEQ/200 ML BAG IVPB PRN (07:36)
[2019-12-06] MEDS ORDERED: Potassium Phosphate 44 MEQ in 0.9 % Sodium Chloride 250 ML IVPB PRN (07:36)
[2019-12-06] MEDS ORDERED: Calcium Gluconate 1gm/50mL 1 GM/50 ML BAG IVPB PRN (07:36)
[2019-12-06] MEDS: Chlorhexidine Rinse 15 ML MOUTHWASH MM SCH ×2 (08:06→20:07)
[2019-12-06 08:33] LABS: INR 1.3; Prothrombin Time 14.7 Seconds (9.4-12.1)
[2019-12-06 08:35] LABS: Hematocrit 30.6 % (35.3-44.9); Hemoglobin 9.8 g/dL (11.5-15.4); Mean Corpuscular Hemoglobin 31.4 pg (28.0-33.3); Mean Corpuscular Volume 98.1 fL (83.0-100.0); Mean Platelet Volume 11.3 fL (9.4-12.4); Platelet Count 188 K/mcL (140-400); Red Blood Count 3.12 M/mcL (3.82-4.97); Red Cell Distribution Width 14.1 % (11.5-14.5); White Blood Count 28.7 K/mcL (4.3-11.1)
[2019-12-06 09:03] LABS: Activated Partial Thrombo Time 138.3 Seconds (26.0-36.0)
[2019-12-06] MEDS: 0.9 % Sodium Chloride 1,000 ML IVC SCH ×2 (09:59→21:38)
[2019-12-06] MEDS: Insulin LISPRO 300 UNITS/3 ML VIAL SQ SCH ×4 (11:33→23:25)
[2019-12-06] MEDS ORDERED: cefTRIAXone 2,000 MG in Water for inj. (sterile) 20 ML IVP SCH (13:00)
[2019-12-06] MEDS: Piperacillin/Tazobactam 3.375 GM in 0.9 % Sodium Chloride Mini Bag 100 ML IVPB SCH (20:07)
[2019-12-06 21:33] LABS: Adenovirus DETECTED (Not Detect); Bordetella Pertussis Not Detected (Not Detect); Chlamydophila pneumoniae Not Detected (Not Detect); Coronavirus 229E Not Detected (Not Detect); Coronavirus HKU1 Not Detected (Not Detect); Coronavirus NL63 Not Detected (Not Detect); Coronavirus OC43 Not Detected (Not Detect); Human Metapneumovirus Not Detected (Not Detect); Human Rhinovirus/Enterovirus Not Detected (Not Detect); Influenza A Subtype 2009 H1 Not Detected (Not Detect); Influenza B Not Detected (Not Detect); Mycoplasma pneumoniae Not Detected (Not Detect); Parainfluenza Virus 1 Not Detected (Not Detect); Parainfluenza Virus 2 Not Detected (Not Detect); Parainfluenza Virus 3 Not Detected (Not Detect); Parainfluenza Virus 4 Not Detected (Not Detect); Respiratory Syncytial Virus Not Detected (Not Detect)
[2019-12-06 23:46] LABS: Hematocrit 25.2 % (35.3-44.9); Hemoglobin 7.9 g/dL (11.5-15.4)
[2019-12-07] MEDS: Norepinephrine 4 MG in 0.9 % Sodium Chloride 250 ML IVC SCH (01:19)
[2019-12-07] MEDS ORDERED: 0.9 % Sodium Chloride 250 ML ONE (01:32)
[2019-12-07] MEDS: *HR* Metoprolol 5 MG/5 ML VIAL IVP SCH ×4 (01:49→20:10)
[2019-12-07] MEDS: Ipratropium/Albuterol Neb 3 ML IH SCH ×6 (03:29→23:11)
[2019-12-07] MEDS: CLEAR EYES NATURAL TEARS 15 ML BOTTLE BOTH EYES SCH ×6 (04:14→23:38)
[2019-12-07] MEDS: Insulin LISPRO 300 UNITS/3 ML VIAL SQ SCH ×6 (04:32→23:38)
[2019-12-07 04:56] LABS: ABG Base Excess -5 mEq/L (-2 to 3); ABG HCO3 20 mEq/L (21-27); ABG Oxygen Saturation 96 % (95-98); ABG PCO2 38 mmHg (35-45); ABG PH 7.34 pH Units (7.32-7.45); ABG PO2 86 mmHg (85-104); ABG TCO2 21 mEq/L (20-26); Blood Gas Modality AF; Blood Gas VT 340 cc
[2019-12-07] MEDS: Pantoprazole 40 MG VIAL IVP SCH ×2 (05:43→17:27)
[2019-12-07] MEDS: Doxycycline 100 MG in 0.9 % Sodium Chloride Mini Bag 100 ML IVPB SCH ×2 (05:43→17:29)
[2019-12-07] MEDS: MethylPREDNISolone 40 MG/ML VIAL IVP SCH ×2 (05:44→17:27)
[2019-12-07 06:00] LABS: VBG Ionized Calcium 1.14 mmol/L (1.15-1.35)
[2019-12-07 06:01] LABS: Hematocrit 31.9 % (35.3-44.9); Hemoglobin 10.2 g/dL (11.5-15.4)
[2019-12-07 06:33] LABS: Basophils # 0.1 K/mcL (0.0-0.2); Basophils % 0.2 %; Immature Granulocytes % 2.3 % (0-4); Lymphocytes # 1.3 K/mcL (0.6-4.6); Mean Corpuscular HGB Conc 31.4 g/dL (31.6-35.5); Mean Corpuscular Hemoglobin 30.7 pg (28.0-33.3); Mean Corpuscular Volume 97.9 fL (83.0-100.0); Monocytes # 0.9 K/mcL (0.0-1.3); Monocytes % 4.4 %; Neutrophils # 18.7 K/mcL (1.6-8.9); Nucleated Red Blood Cells 0.1 /100 WBC (0); Platelet Count 127 K/mcL (140-400); Red Blood Count 3.32 M/mcL (3.82-4.97); Red Cell Distribution Width 14.8 % (11.5-14.5); Segmented Neutrophils % 87.1 %; White Blood Count 21.5 K/mcL (4.3-11.1)
[2019-12-07] MEDS: Chlorhexidine Rinse 15 ML MOUTHWASH MM SCH ×2 (07:52→20:10)
[2019-12-07] MEDS: Piperacillin/Tazobactam 3.375 GM in 0.9 % Sodium Chloride Mini Bag 100 ML IVPB SCH ×2 (07:52→15:24)
[2019-12-07 09:30] LABS: INR 1.1; Prothrombin Time 12.5 Seconds (9.4-12.1)
[2019-12-07 09:34] LABS: Activated Partial Thrombo Time 26.5 Seconds (26.0-36.0)
[2019-12-07 10:16] LABS: Creatine Kinase 70 Units/L (30-223); Uric Acid 9.6 mg/dL (2.3-7.6)
[2019-12-07 12:48] LABS: Bilirubin,Urine Negative (Negative); Blood,Urine Negative (Negative); Clarity,Urine Cloudy (Clear); Color,Urine Yellow (Yellow); Glucose,Urine (UA) Normal (Normal); Ketones,Urine Negative (Negative); Leukocyte Esterase,Urine Moderate (Negative); Nitrite,Urine Negative (Negative); PH,Urine 5.5 pH Units (5.0-8.0); Protein,Urine 100 mg/dL (Neg-Trace); Specific Gravity,Urine 1.024 (1.010-1.025); Urobilinogen,Urine Normal (Normal)
[2019-12-07 12:50] LABS: Hyaline Casts,Urine Few per lpf (None-Few)
[2019-12-07 13:16] LABS: Squamous Epithelial Cell,Urine Few per lpf (None-Few)
[2019-12-07 13:17] LABS: WBC,Urine 15-30 per hpf (0-3)
[2019-12-07 13:18] LABS: Bacteria,Urine Moderate per hpf (None-Few); Yeast,Urine Many per hpf (None Seen)
[2019-12-07] MEDS: Albumin 25% 25gram/100mL 25 GM/100 ML IV.SOLN IVPB SCH ×2 (15:24→23:37)
[2019-12-07] MEDS: Phenylephrine 10 MG in 0.9 % Sodium Chloride 250 ML IVC SCH (23:39)
[2019-12-08] MEDS: Ipratropium/Albuterol Neb 3 ML IH SCH ×6 (03:25→23:31)
[2019-12-08] MEDS: *HR* Metoprolol 5 MG/5 ML VIAL IVP SCH ×4 (03:48→20:19)
[2019-12-08] MEDS: Insulin LISPRO 300 UNITS/3 ML VIAL SQ SCH ×6 (03:49→23:52)
[2019-12-08] MEDS: CLEAR EYES NATURAL TEARS 15 ML BOTTLE BOTH EYES SCH ×6 (03:49→23:51)
[2019-12-08] MEDS: Piperacillin/Tazobactam 3.375 GM in 0.9 % Sodium Chloride Mini Bag 100 ML IVPB SCH ×2 (04:05→16:04)
[2019-12-08 04:30] LABS: ABG Base Excess -6 mEq/L (-2 to 3); ABG HCO3 19 mEq/L (21-27); ABG Oxygen Saturation 97 % (95-98); ABG PCO2 38 mmHg (35-45); ABG PH 7.32 pH Units (7.32-7.45); ABG PO2 96 mmHg (85-104); ABG TCO2 20 mEq/L (20-26); Blood Gas Modality AF; Blood Gas VT 340 cc
[2019-12-08 04:57] LABS: VBG Ionized Calcium 1.23 mmol/L (1.15-1.35)
[2019-12-08 05:00] LABS: Basophils % 0.2 %; Mean Corpuscular Volume 97.5 fL (83.0-100.0); Nucleated Red Blood Cells 0.3 /100 WBC (0); Red Cell Distribution Width 15.5 % (11.5-14.5)
[2019-12-08 05:02] LABS: Hematocrit 26.9 % (35.3-44.9); Hemoglobin 8.6 g/dL (11.5-15.4); Immature Granulocytes % 3.9 % (0-4); Immature Platelets 3.4 % (1.1-6.1); Lymphocytes # 0.4 K/mcL (0.6-4.6); Lymphocytes % 3.8 %; Mean Corpuscular Hemoglobin 31.2 pg (28.0-33.3); Mean Platelet Volume 10.6 fL (9.4-12.4); Monocytes # 0.4 K/mcL (0.0-1.3); Monocytes % 4.1 %; Neutrophils # 8.8 K/mcL (1.6-8.9); Platelet Count 102 K/mcL (140-400); Red Blood Count 2.76 M/mcL (3.82-4.97)
[2019-12-08 05:10] LABS: Platelet Estimate Decreased (Normal)
[2019-12-08 05:19] LABS: Calcium 8.6 mg/dL (8.6-10.3)
[2019-12-08 05:21] LABS: Magnesium 2.1 mg/dL (1.6-2.6); Phosphorous 3.7 mg/dL (2.7-4.5)
[2019-12-08] MEDS: Pantoprazole 40 MG VIAL IVP SCH ×2 (05:34→17:37)
[2019-12-08] MEDS: MethylPREDNISolone 40 MG/ML VIAL IVP SCH ×2 (05:34→17:37)
[2019-12-08] MEDS: Doxycycline 100 MG in 0.9 % Sodium Chloride Mini Bag 100 ML IVPB SCH ×2 (05:34→17:37)
[2019-12-08] MEDS: Chlorhexidine Rinse 15 ML MOUTHWASH MM SCH ×2 (07:59→20:19)
[2019-12-08] MEDS: FentaNYL (PF) 1,000 MCG in 0.9 % Sodium Chloride 80 ML IVC SCH (08:00)
[2019-12-08] MEDS: Albumin 25% 25gram/100mL 25 GM/100 ML IV.SOLN IVPB SCH ×3 (08:00→23:51)
[2019-12-08] MEDS: levETIRAcetam 250 MG in 0.9 % Sodium Chloride 100 ML IVPB SCH (08:00)
[2019-12-08 09:57] LABS: Protein/Creatinine Ratio,Urine 1.54 mg/mg (0.00-0.20); Sodium, Urine 39.3 mEq/L
[2019-12-08] MEDS: Dexmedetomidine HCl 400 MCG/100 ML MLS IVC SCH (20:36)
[2019-12-09] MEDS: Ipratropium/Albuterol Neb 3 ML IH SCH ×6 (03:19→23:36)
[2019-12-09 03:31] LABS: Basophils % 0.3 %
[2019-12-09 03:33] LABS: Hematocrit 25.3 % (35.3-44.9); Immature Granulocytes % 4.7 % (0-4); Immature Platelets 3.3 % (1.1-6.1); Lymphocytes # 0.4 K/mcL (0.6-4.6); Lymphocytes % 4.6 %; Mean Corpuscular HGB Conc 31.6 g/dL (31.6-35.5); Mean Corpuscular Hemoglobin 30.8 pg (28.0-33.3); Mean Corpuscular Volume 97.3 fL (83.0-100.0); Mean Platelet Volume 10.1 fL (9.4-12.4); Monocytes # 0.3 K/mcL (0.0-1.3); Monocytes % 3.9 %; Neutrophils # 6.8 K/mcL (1.6-8.9); Nucleated Red Blood Cells 1.1 /100 WBC (0); Red Cell Distribution Width 15.7 % (11.5-14.5); Segmented Neutrophils % 86.5 %; White Blood Count 7.9 K/mcL (4.3-11.1)
[2019-12-09 03:36] LABS: Platelet Count 94 K/mcL (140-400)
[2019-12-09 03:37] LABS: Platelet Estimate Decreased (Normal)
[2019-12-09 03:49] LABS: Albumin 4.2 g/dL (3.5-5.7); Albumin/Globulin Ratio 2.6 (1.1-2.2); Bilirubin,Total 0.7 mg/dL (0.3-1.0); Calcium 8.8 mg/dL (8.6-10.3); Globulin 1.6 g/dL (2.4-3.5); Potassium 3.8 mEq/L (3.5-5.1); Total Protein 5.8 g/dL (6.4-8.9)
[2019-12-09 04:09] LABS: Magnesium 2.1 mg/dL (1.6-2.6); Phosphorous 3.4 mg/dL (2.7-4.5)
[2019-12-09] MEDS: Piperacillin/Tazobactam 3.375 GM in 0.9 % Sodium Chloride Mini Bag 100 ML IVPB SCH ×2 (04:21→15:44)
[2019-12-09] MEDS: Phenylephrine 10 MG in 0.9 % Sodium Chloride 250 ML IVC SCH ×2 (04:22→22:39)
[2019-12-09] MEDS: Norepinephrine 4 MG in 0.9 % Sodium Chloride 250 ML IVC SCH ×2 (04:22→22:39)
[2019-12-09] MEDS: *HR* Metoprolol 5 MG/5 ML VIAL IVP SCH ×4 (04:22→21:20)
[2019-12-09] MEDS: Insulin LISPRO 300 UNITS/3 ML VIAL SQ SCH ×5 (04:23→20:32)
[2019-12-09] MEDS: CLEAR EYES NATURAL TEARS 15 ML BOTTLE BOTH EYES SCH ×5 (04:23→20:31)
[2019-12-09 05:28] LABS: ABG Base Excess -5 mEq/L (-2 to 3); ABG HCO3 19 mEq/L (21-27); ABG Oxygen Saturation 98 % (95-98); ABG PCO2 34 mmHg (35-45); ABG PH 7.37 pH Units (7.32-7.45); ABG PO2 110 mmHg (85-104); ABG TCO2 20 mEq/L (20-26); Blood Gas Modality AF; Blood Gas VT 340 cc
[2019-12-09] MEDS: MethylPREDNISolone 40 MG/ML VIAL IVP SCH ×2 (05:48→18:00)
[2019-12-09] MEDS: Pantoprazole 40 MG VIAL IVP SCH ×2 (05:49→18:00)
[2019-12-09] MEDS: Potassium Chloride 40 MEQ/200 ML BAG IVPB PRN (05:49)
[2019-12-09] MEDS: Doxycycline 100 MG in 0.9 % Sodium Chloride Mini Bag 100 ML IVPB SCH ×2 (05:49→18:00)
[2019-12-09] MEDS ORDERED: Isovue-370 500 ML BOTTLE IVP ONE (07:15)
[2019-12-09 07:44] LABS: Immature Reticulocyte % 22.8 % (11.0-38.0); Retculocyte # 0.05 M/mcL (0.05-0.10); Reticulocyte % 2.1 % (1.6-2.8)
[2019-12-09 07:49] LABS: INR 1.2; Prothrombin Time 14.1 Seconds (9.4-12.1)
[2019-12-09] MEDS: Albumin 25% 25gram/100mL 25 GM/100 ML IV.SOLN IVPB SCH (08:00)
[2019-12-09] MEDS: Chlorhexidine Rinse 15 ML MOUTHWASH MM SCH ×2 (08:17→21:16)
[2019-12-09] MEDS: levETIRAcetam 250 MG in 0.9 % Sodium Chloride 100 ML IVPB SCH (08:24)
[2019-12-09 09:10] LABS: Bilirubin,Urine Negative (Negative); Blood,Urine Negative (Negative); Clarity,Urine Cloudy (Clear); Color,Urine Yellow (Yellow); Glucose,Urine (UA) Normal (Normal); Ketones,Urine Negative (Negative); Leukocyte Esterase,Urine Large (Negative); Nitrite,Urine Negative (Negative); Protein,Urine 30 mg/dL (Neg-Trace); Specific Gravity,Urine 1.023 (1.010-1.025); Urobilinogen,Urine Normal (Normal)
[2019-12-09] MEDS ORDERED: 0.9 % Sodium Chloride 250 ML ONE (09:11)
[2019-12-09 09:12] LABS: Squamous Epithelial Cell,Urine Many per lpf (None-Few)
[2019-12-09 09:23] LABS: Yeast,Urine Many per hpf (None Seen)
[2019-12-09 09:24] LABS: Bacteria,Urine Few per hpf (None-Few); Hyaline Casts,Urine Few per lpf (None-Few); RBC,Urine 0-3 per hpf (0-3); Renal Epithelial Cells,Urine Few per hpf (None-Few); WBC,Urine 50-100 per hpf (0-3)
[2019-12-09] MEDS: FentaNYL (PF) 1,000 MCG in 0.9 % Sodium Chloride 80 ML IVC SCH (15:37)
[2019-12-09] MEDS: Dexmedetomidine HCl 400 MCG/100 ML MLS IVC SCH (20:29)
[2019-12-10] MEDS: CLEAR EYES NATURAL TEARS 15 ML BOTTLE BOTH EYES SCH ×5 (00:03→15:18)
[2019-12-10] MEDS: Insulin LISPRO 300 UNITS/3 ML VIAL SQ SCH ×7 (00:03→23:16)
[2019-12-10] MEDS: *HR* Metoprolol 5 MG/5 ML VIAL IVP SCH ×4 (03:18→19:45)
[2019-12-10] MEDS: Ipratropium/Albuterol Neb 3 ML IH SCH ×6 (03:29→23:24)
[2019-12-10] MEDS: Piperacillin/Tazobactam 3.375 GM in 0.9 % Sodium Chloride Mini Bag 100 ML IVPB SCH ×2 (03:38→15:16)
[2019-12-10 04:57] LABS: VBG Ionized Calcium 1.26 mmol/L (1.15-1.35)
[2019-12-10 04:57] LABS: Hematocrit 24.7 % (35.3-44.9); Hemoglobin 7.8 g/dL (11.5-15.4); INR 1.2; Immature Platelets 4.7 % (1.1-6.1); Mean Corpuscular HGB Conc 31.6 g/dL (31.6-35.5); Mean Corpuscular Hemoglobin 31.3 pg (28.0-33.3); Mean Corpuscular Volume 99.2 fL (83.0-100.0); Mean Platelet Volume 10.5 fL (9.4-12.4); Nucleated Red Blood Cells 1.2 /100 WBC (0); Prothrombin Time 13.2 Seconds (9.4-12.1); Red Blood Count 2.49 M/mcL (3.82-4.97); Red Cell Distribution Width 15.7 % (11.5-14.5); White Blood Count 8.3 K/mcL (4.3-11.1)
[2019-12-10 05:00] LABS: Activated Partial Thrombo Time 27.7 Seconds (26.0-36.0); Platelet Count 90 K/mcL (140-400)
[2019-12-10 05:13] LABS: Albumin 3.9 g/dL (3.5-5.7); Albumin/Globulin Ratio 2.6 (1.1-2.2); Bilirubin,Total 0.7 mg/dL (0.3-1.0); Calcium 8.7 mg/dL (8.6-10.3); Globulin 1.5 g/dL (2.4-3.5); Magnesium 1.9 mg/dL (1.6-2.6); Potassium 4.3 mEq/L (3.5-5.1); Total Protein 5.4 g/dL (6.4-8.9)
[2019-12-10 05:14] LABS: Albumin 3.9 g/dL (3.5-5.7); Albumin/Globulin Ratio 2.6 (1.1-2.2); Bilirubin,Direct 0.3 mg/dL (0.0-0.2); Bilirubin,Indirect 0.4 mg/dL (0.0-1.0); Bilirubin,Total 0.7 mg/dL (0.3-1.0); Globulin 1.5 g/dL (2.4-3.5); Total Protein 5.4 g/dL (6.4-8.9)
[2019-12-10 05:16] LABS: Lymphocytes # 0.5 K/mcL (0.6-4.6); Monocytes # 0.7 K/mcL (0.0-1.3); Neutrophils # 7.1 K/mcL (1.6-8.9); Platelet Estimate Decreased (Normal)
[2019-12-10 05:32] LABS: ABG Base Excess -4 mEq/L (-2 to 3); ABG HCO3 21 mEq/L (21-27); ABG Oxygen Saturation 98 % (95-98); ABG PCO2 37 mmHg (35-45); ABG PH 7.37 pH Units (7.32-7.45); ABG PO2 114 mmHg (85-104); ABG TCO2 22 mEq/L (20-26); Blood Gas Modality AF; Blood Gas VT 340 cc
[2019-12-10] MEDS: Pantoprazole 40 MG VIAL IVP SCH ×2 (05:36→18:28)
[2019-12-10] MEDS: MethylPREDNISolone 40 MG/ML VIAL IVP SCH ×2 (05:38→18:28)
[2019-12-10] MEDS: Doxycycline 100 MG in 0.9 % Sodium Chloride Mini Bag 100 ML IVPB SCH ×2 (05:40→18:28)
[2019-12-10] MEDS ORDERED: 0.9 % Sodium Chloride 250 ML ONE (08:08)
[2019-12-10] MEDS: Chlorhexidine Rinse 15 ML MOUTHWASH MM SCH (08:55)
[2019-12-10] MEDS ORDERED: Furosemide 20 MG/2 ML VIAL IVP ONE (10:09)
[2019-12-10] MEDS: FentaNYL (PF) 1,000 MCG in 0.9 % Sodium Chloride 80 ML IVC SCH (11:51)
[2019-12-10] MEDS: levETIRAcetam 250 MG in 0.9 % Sodium Chloride 100 ML IVPB SCH (11:59)
[2019-12-10 12:26] LABS: Hematocrit 24.8 % (35.3-44.9); Hemoglobin 7.8 g/dL (11.5-15.4)
[2019-12-10] MEDS: Dexmedetomidine HCl 400 MCG/100 ML MLS IVC SCH (19:45)
[2019-12-10 21:06] LABS: Hematocrit 24.4 % (35.3-44.9); Hemoglobin 7.9 g/dL (11.5-15.4)
[2019-12-10] MEDS: Norepinephrine 4 MG in 0.9 % Sodium Chloride 250 ML IVC SCH (23:17)
[2019-12-10] MEDS: Phenylephrine 10 MG in 0.9 % Sodium Chloride 250 ML IVC SCH (23:17)
[2019-12-11] MEDS: *HR* Metoprolol 5 MG/5 ML VIAL IVP SCH ×4 (03:33→20:06)
[2019-12-11] MEDS: Piperacillin/Tazobactam 3.375 GM in 0.9 % Sodium Chloride Mini Bag 100 ML IVPB SCH ×2 (03:33→16:41)
[2019-12-11] MEDS: Ipratropium/Albuterol Neb 3 ML IH SCH ×6 (03:38→23:43)
[2019-12-11 04:07] LABS: Immature Granulocytes % 8.4 % (0-4); Red Cell Distribution Width 15.9 % (11.5-14.5)
[2019-12-11] MEDS: Insulin LISPRO 300 UNITS/3 ML VIAL SQ SCH ×5 (04:08→20:06)
[2019-12-11 04:10] LABS: Basophils % 0.2 %; Eosinophils # 0.1 K/mcL (0.0-0.6); Eosinophils % 0.5 %; Hemoglobin 7.1 g/dL (11.5-15.4); Immature Platelets 4.3 % (1.1-6.1); Lymphocytes # 0.5 K/mcL (0.6-4.6); Lymphocytes % 4.9 %; Mean Corpuscular HGB Conc 30.9 g/dL (31.6-35.5); Mean Corpuscular Volume 100.4 fL (83.0-100.0); Monocytes # 0.7 K/mcL (0.0-1.3); Monocytes % 6.2 %; Neutrophils # 8.7 K/mcL (1.6-8.9); Nucleated Red Blood Cells 0.4 /100 WBC (0); Red Blood Count 2.29 M/mcL (3.82-4.97); Segmented Neutrophils % 79.8 %; White Blood Count 10.9 K/mcL (4.3-11.1)
[2019-12-11 04:25] LABS: Platelet Count 95 K/mcL (140-400)
[2019-12-11 04:26] LABS: Albumin 3.9 g/dL (3.5-5.7); Albumin/Globulin Ratio 2.1 (1.1-2.2); Bilirubin,Total 0.9 mg/dL (0.3-1.0); Calcium 9.6 mg/dL (8.6-10.3); Globulin 1.9 g/dL (2.4-3.5); Potassium 3.9 mEq/L (3.5-5.1); Total Protein 5.8 g/dL (6.4-8.9)
[2019-12-11 04:47] LABS: Folate 11.7 ng/mL (3.0-16.0)
[2019-12-11 04:48] LABS: Vitamin B12 939 pg/mL (250-1100)
[2019-12-11 05:27] LABS: Platelet Estimate Slight Decrease (Normal)
[2019-12-11] MEDS: Doxycycline 100 MG in 0.9 % Sodium Chloride Mini Bag 100 ML IVPB SCH ×2 (06:03→16:41)
[2019-12-11] MEDS: MethylPREDNISolone 40 MG/ML VIAL IVP SCH ×2 (06:03→16:41)
[2019-12-11] MEDS: Pantoprazole 40 MG VIAL IVP SCH ×2 (06:04→16:41)
[2019-12-11 07:24] LABS: INR 1.3; Prothrombin Time 14.5 Seconds (9.4-12.1)
[2019-12-11] MEDS: FentaNYL (PF) 1,000 MCG in 0.9 % Sodium Chloride 80 ML IVC SCH (08:10)
[2019-12-11] MEDS: levETIRAcetam 250 MG in 0.9 % Sodium Chloride 100 ML IVPB SCH (08:13)
[2019-12-11] MEDS: D5% in Water 1,000 ML IVC SCH ×2 (08:14→22:13)
[2019-12-11] MEDS ORDERED: Furosemide 20 MG/2 ML VIAL IVP ONE (09:33)
[2019-12-11 13:04] LABS: Hematocrit 22.6 % (35.3-44.9); Hemoglobin 7.1 g/dL (11.5-15.4)
[2019-12-11 18:24] LABS: Calcium 9.3 mg/dL (8.6-10.3); Potassium 3.3 mEq/L (3.5-5.1)
[2019-12-11] MEDS: Potassium Chloride 40 MEQ/200 ML BAG IVPB PRN (20:05)
[2019-12-11] MEDS ORDERED: Darbepoetin 100 MCG/0.5 ML SYRINGE SQ SCH (21:15)
[2019-12-11] MEDS: Dexmedetomidine HCl 400 MCG/100 ML MLS IVC SCH (22:15)
[2019-12-12] MEDS: Insulin LISPRO 300 UNITS/3 ML VIAL SQ SCH ×7 (01:07→23:23)
[2019-12-12] MEDS: Norepinephrine 4 MG in 0.9 % Sodium Chloride 250 ML IVC SCH (01:09)
[2019-12-12] MEDS: Phenylephrine 10 MG in 0.9 % Sodium Chloride 250 ML IVC SCH (01:09)
[2019-12-12] MEDS: Ipratropium/Albuterol Neb 3 ML IH SCH ×6 (03:16→23:45)
[2019-12-12] MEDS: *HR* Metoprolol 5 MG/5 ML VIAL IVP SCH ×4 (03:29→20:25)
[2019-12-12 04:01] LABS: VBG Ionized Calcium 1.31 mmol/L (1.15-1.35)
[2019-12-12 04:01] LABS: Eosinophils % 0.4 %; Mean Corpuscular Volume 100.4 fL (83.0-100.0)
[2019-12-12 04:03] LABS: Basophils # 0.1 K/mcL (0.0-0.2); Basophils % 0.5 %; Eosinophils # 0.1 K/mcL (0.0-0.6); Hemoglobin 7.4 g/dL (11.5-15.4); Immature Granulocytes % 8.8 % (0-4); Immature Platelets 5.6 % (1.1-6.1); Lymphocytes # 0.9 K/mcL (0.6-4.6); Lymphocytes % 5.6 %; Mean Corpuscular HGB Conc 30.8 g/dL (31.6-35.5); Monocytes # 1.1 K/mcL (0.0-1.3); Monocytes % 7.1 %; Neutrophils # 12.4 K/mcL (1.6-8.9); Nucleated Red Blood Cells 0.7 /100 WBC (0); Platelet Count 105 K/mcL (140-400); Red Blood Count 2.39 M/mcL (3.82-4.97); Red Cell Distribution Width 15.5 % (11.5-14.5); Segmented Neutrophils % 77.6 %
[2019-12-12 04:17] LABS: INR 1.3; Prothrombin Time 14.5 Seconds (9.4-12.1)
[2019-12-12 04:20] LABS: Albumin 3.9 g/dL (3.5-5.7); Bilirubin,Direct 0.3 mg/dL (0.0-0.2); Bilirubin,Indirect 0.4 mg/dL (0.0-1.0); Bilirubin,Total 0.7 mg/dL (0.3-1.0); Calcium 9.3 mg/dL (8.6-10.3); Phosphorous 3.3 mg/dL (2.7-4.5); Potassium 3.6 mEq/L (3.5-5.1); Total Protein 5.9 g/dL (6.4-8.9)
[2019-12-12 04:21] LABS: % Iron Saturation 38 % (15-50); Iron 60 mcg/dL (50-170); Transferrin 113 mg/dL (203-362)
[2019-12-12 04:37] LABS: Platelet Estimate Slight Decrease (Normal)
[2019-12-12 04:40] LABS: Ferritin 215 ng/mL (10-120)
[2019-12-12] MEDS: Piperacillin/Tazobactam 3.375 GM in 0.9 % Sodium Chloride Mini Bag 100 ML IVPB SCH ×3 (05:41→20:30)
[2019-12-12] MEDS: Doxycycline 100 MG in 0.9 % Sodium Chloride Mini Bag 100 ML IVPB SCH ×2 (05:42→18:45)
[2019-12-12] MEDS: Pantoprazole 40 MG VIAL IVP SCH (05:43)
[2019-12-12] MEDS: MethylPREDNISolone 40 MG/ML VIAL IVP SCH (05:43)
[2019-12-12] MEDS: Potassium Chloride 40 MEQ/200 ML BAG IVPB PRN ×2 (05:44→07:15)
[2019-12-12] MEDS ORDERED: Furosemide 40 MG/4 ML VIAL IVP ONE (08:18)
[2019-12-12] MEDS: FentaNYL (PF) 1,000 MCG in 0.9 % Sodium Chloride 80 ML IVC SCH (08:29)
[2019-12-12] MEDS: levETIRAcetam 250 MG in 0.9 % Sodium Chloride 100 ML IVPB SCH (08:53)
[2019-12-12 09:01] LABS: Bilirubin,Urine Negative (Negative); Blood,Urine Small (Negative); Clarity,Urine Cloudy (Clear); Color,Urine Yellow (Yellow); Glucose,Urine (UA) Normal (Normal); Ketones,Urine Negative (Negative); Leukocyte Esterase,Urine Large (Negative); Nitrite,Urine Negative (Negative); Protein,Urine 30 mg/dL (Neg-Trace); Specific Gravity,Urine 1.016 (1.010-1.025); Urobilinogen,Urine Normal (Normal)
[2019-12-12 09:04] LABS: Squamous Epithelial Cell,Urine Moderate per lpf (None-Few); WBC,Urine TNTC per hpf (0-3)
[2019-12-12 09:25] LABS: Granular Casts,Urine Few per lpf (None Seen); Hyaline Casts,Urine Few per lpf (None-Few)
[2019-12-12 09:26] LABS: Bacteria,Urine Moderate per hpf (None-Few)
[2019-12-12] MEDS ORDERED: Naloxone 0.4 MG/ML INJ IVP PRN (10:00)
[2019-12-12] MEDS ORDERED: D5% in Water 1,000 ML IVC SCH (10:00)
[2019-12-12] MEDS: Darbepoetin 100 MCG/0.5 ML SYRINGE SQ SCH (10:27)
[2019-12-12] MEDS ORDERED: Piperacillin/Tazobactam 3.375 GM in 0.9 % Sodium Chloride Mini Bag 100 ML IVPB SCH (16:00)
[2019-12-12 17:39] LABS: Hepatitis B Surface Antigen Nonreactive (Nonreactive)
[2019-12-12] MEDS ORDERED: MethylPREDNISolone 40 MG/ML VIAL IVP SCH (18:00)
[2019-12-12] MEDS ORDERED: Pantoprazole 40 MG VIAL IVP SCH (18:00)
[2019-12-12 18:13] LABS: Hepatitis A Antibody IgM Nonreactive (Nonreactive)
[2019-12-12 18:19] LABS: Hepatitis B Core IgM Nonreactive (Nonreactive)
[2019-12-12 18:55] LABS: Kappa Qnt Free Light Chains 26.86 mg/L (3.30-19.40); Lambda Qnt Free Light Chains 22.24 mg/L (5.71-26.30)
[2019-12-12 21:33] LABS: Hepatitis C Virus Antibody Nonreactive (Nonreactive)
[2019-12-13] MEDS: Ipratropium/Albuterol Neb 3 ML IH SCH ×6 (03:27→23:46)
[2019-12-13] MEDS: *HR* Metoprolol 5 MG/5 ML VIAL IVP SCH ×4 (03:39→20:46)
[2019-12-13] MEDS: Piperacillin/Tazobactam 3.375 GM in 0.9 % Sodium Chloride Mini Bag 100 ML IVPB SCH ×3 (03:44→20:29)
[2019-12-13] MEDS: Insulin LISPRO 300 UNITS/3 ML VIAL SQ SCH ×5 (03:46→20:30)
[2019-12-13] MEDS: Doxycycline 100 MG in 0.9 % Sodium Chloride Mini Bag 100 ML IVPB SCH ×2 (05:13→17:17)
[2019-12-13 07:10] LABS: Alpha 2 Globulin (PEP) 0.53 g/dL (0.48-1.05); Beta Globulin (PEP) 0.46 g/dL (0.48-1.10)
[2019-12-13] MEDS: Pantoprazole 40 MG VIAL IVP SCH (08:43)
[2019-12-13] MEDS ORDERED: levETIRAcetam 250 MG in 0.9 % Sodium Chloride 100 ML IVPB SCH (09:00)
[2019-12-13] MEDS ORDERED: Albumin 25% 25gram/100mL 25 GM/100 ML IV.SOLN IVPB ONE (09:27)
[2019-12-13 10:33] LABS: IFE Reflexed NOT DONE
[2019-12-13] MEDS ORDERED: E-Z-HD (BARIUM SULF) SUSPENSION PO ONE (10:42)
[2019-12-13] MEDS ORDERED: E-Z-PAQUE (BARIUM SULF) SUSP 1 BOTTLE PO ONE (10:42)
[2019-12-13 10:46] LABS: Basophils % 0.2 %; Lymphocytes % 5.5 %; Nucleated Red Blood Cells 0.5 /100 WBC (0)
[2019-12-13 10:48] LABS: Eosinophils # 0.2 K/mcL (0.0-0.6); Eosinophils % 1.6 %; Hematocrit 24.1 % (35.3-44.9); Hemoglobin 7.6 g/dL (11.5-15.4); Immature Granulocytes % 6.9 % (0-4); Immature Platelets 5.2 % (1.1-6.1); Lymphocytes # 0.5 K/mcL (0.6-4.6); Mean Corpuscular HGB Conc 31.5 g/dL (31.6-35.5); Mean Corpuscular Hemoglobin 30.9 pg (28.0-33.3); Mean Platelet Volume 10.8 fL (9.4-12.4); Monocytes # 0.8 K/mcL (0.0-1.3); Monocytes % 8.3 %; Neutrophils # 7.6 K/mcL (1.6-8.9); Platelet Count 107 K/mcL (140-400); Red Blood Count 2.46 M/mcL (3.82-4.97); Red Cell Distribution Width 15.4 % (11.5-14.5); Segmented Neutrophils % 77.5 %; White Blood Count 9.8 K/mcL (4.3-11.1)
[2019-12-13 11:01] LABS: Albumin 3.6 g/dL (3.5-5.7); Albumin/Globulin Ratio 1.8 (1.1-2.2); Calcium 9.3 mg/dL (8.6-10.3); Total Protein 5.6 g/dL (6.4-8.9)
[2019-12-13 11:03] LABS: Anisocytosis 1+ (Not Present); Hypersegmented Neutrophils Present (Not Present); Platelet Estimate Decreased (Normal); Toxic Granulation Present (Not Present)
[2019-12-13] MEDS ORDERED: Furosemide 40 MG/4 ML VIAL IVP ONE (11:30)
[2019-12-13 18:01] LABS: Calcium 9.6 mg/dL (8.6-10.3)
[2019-12-14 01:31] LABS: Basophils % 0.1 %; Hemoglobin 7.1 g/dL (11.5-15.4)
[2019-12-14 01:33] LABS: Eosinophils # 0.1 K/mcL (0.0-0.6); Eosinophils % 1.7 %; Hematocrit 22.1 % (35.3-44.9); Immature Granulocytes % 4.1 % (0-4); Immature Platelets 5.7 % (1.1-6.1); Lymphocytes # 0.5 K/mcL (0.6-4.6); Lymphocytes % 5.9 %; Mean Corpuscular HGB Conc 32.1 g/dL (31.6-35.5); Mean Corpuscular Hemoglobin 31.1 pg (28.0-33.3); Mean Corpuscular Volume 96.9 fL (83.0-100.0); Mean Platelet Volume 10.7 fL (9.4-12.4); Monocytes # 0.7 K/mcL (0.0-1.3); Monocytes % 8.4 %; Nucleated Red Blood Cells 0.7 /100 WBC (0); Platelet Count 107 K/mcL (140-400); Red Blood Count 2.28 M/mcL (3.82-4.97); Red Cell Distribution Width 15.8 % (11.5-14.5); Segmented Neutrophils % 79.8 %; White Blood Count 8.3 K/mcL (4.3-11.1)
[2019-12-14 01:35] LABS: Neutrophils # 6.6 K/mcL (1.6-8.9)
[2019-12-14 01:49] LABS: Albumin 3.6 g/dL (3.5-5.7); Bilirubin,Total 1.1 mg/dL (0.3-1.0); Calcium 9.2 mg/dL (8.6-10.3); Globulin 1.8 g/dL (2.4-3.5); Potassium 2.8 mEq/L (3.5-5.1); Total Protein 5.4 g/dL (6.4-8.9)
[2019-12-14] MEDS: *HR* Metoprolol 5 MG/5 ML VIAL IVP SCH ×4 (01:52→21:14)
[2019-12-14] MEDS: Ipratropium/Albuterol Neb 3 ML IH SCH ×6 (03:53→23:41)
[2019-12-14] MEDS: Doxycycline 100 MG in 0.9 % Sodium Chloride Mini Bag 100 ML IVPB SCH (05:47)
[2019-12-14] MEDS: Piperacillin/Tazobactam 3.375 GM in 0.9 % Sodium Chloride Mini Bag 100 ML IVPB SCH ×3 (05:48→21:14)
[2019-12-14] MEDS: Insulin LISPRO 300 UNITS/3 ML VIAL SQ SCH ×4 (07:53→21:17)
[2019-12-14] MEDS: Pantoprazole 40 MG VIAL IVP SCH (07:58)
[2019-12-14] MEDS: levETIRAcetam 250 MG TABLET PO SCH ×2 (09:44→21:16)
[2019-12-14 14:30] LABS: Calcium 9.3 mg/dL (8.6-10.3); Potassium 3.2 mEq/L (3.5-5.1)
[2019-12-14] MEDS ORDERED: 0.9 % Sodium Chloride 250 ML ONE (15:27)
[2019-12-14] MEDS: Doxycycline 100 MG CAPSULE PO SCH (21:16)
[2019-12-15 01:16] LABS: Basophils % 0.1 %; Hemoglobin 7.9 g/dL (11.5-15.4); Mean Corpuscular Volume 96.5 fL (83.0-100.0)
[2019-12-15 01:18] LABS: Eosinophils # 0.1 K/mcL (0.0-0.6); Eosinophils % 1.4 %; Hematocrit 24.9 % (35.3-44.9); Immature Granulocytes % 2.3 % (0-4); Immature Platelets 6.8 % (1.1-6.1); Lymphocytes # 0.9 K/mcL (0.6-4.6); Lymphocytes % 9.1 %; Mean Corpuscular HGB Conc 31.7 g/dL (31.6-35.5); Mean Corpuscular Hemoglobin 30.6 pg (28.0-33.3); Mean Platelet Volume 11.7 fL (9.4-12.4); Neutrophils # 7.5 K/mcL (1.6-8.9); Nucleated Red Blood Cells 0.7 /100 WBC (0); Red Blood Count 2.58 M/mcL (3.82-4.97); Red Cell Distribution Width 15.7 % (11.5-14.5); Segmented Neutrophils % 77.1 %; White Blood Count 9.7 K/mcL (4.3-11.1)
[2019-12-15 01:19] LABS: Platelet Count 97 K/mcL (140-400)
[2019-12-15 01:30] LABS: Albumin 3.6 g/dL (3.5-5.7); Albumin/Globulin Ratio 1.9 (1.1-2.2); Bilirubin,Total 1.1 mg/dL (0.3-1.0); Globulin 1.9 g/dL (2.4-3.5); Potassium 3.5 mEq/L (3.5-5.1); Total Protein 5.5 g/dL (6.4-8.9)
[2019-12-15] MEDS: Ipratropium/Albuterol Neb 3 ML IH SCH ×5 (03:25→20:19)
[2019-12-15] MEDS: Piperacillin/Tazobactam 3.375 GM in 0.9 % Sodium Chloride Mini Bag 100 ML IVPB SCH (03:48)
[2019-12-15] MEDS: *HR* Metoprolol 5 MG/5 ML VIAL IVP SCH ×2 (04:11→09:15)
[2019-12-15] MEDS: Insulin LISPRO 300 UNITS/3 ML VIAL SQ SCH ×4 (07:53→21:40)
[2019-12-15] MEDS: levETIRAcetam 250 MG TABLET PO SCH ×2 (09:14→22:01)
[2019-12-15] MEDS: Doxycycline 100 MG CAPSULE PO SCH (09:14)
[2019-12-15] MEDS: Albumin 25% 25gram/100mL 25 GM/100 ML IV.SOLN IVPB SCH ×2 (11:34→22:01)
[2019-12-15] MEDS: Magnesium Oxide 400 MG TABLET PO SCH ×2 (11:51→22:01)
[2019-12-15] MEDS ORDERED: Furosemide 40 MG/4 ML VIAL IVP ONE ×2 (12:00→23:00)
[2019-12-16] MEDS: Ipratropium/Albuterol Neb 3 ML IH SCH ×6 (00:23→20:26)
[2019-12-16 02:39] LABS: Basophils % 0.1 %; Hemoglobin 6.7 g/dL (11.5-15.4); Mean Corpuscular Volume 98.6 fL (83.0-100.0); Monocytes % 8.3 %; Nucleated Red Blood Cells 0.4 /100 WBC (0)
[2019-12-16 02:41] LABS: Eosinophils # 0.1 K/mcL (0.0-0.6); Eosinophils % 1.2 %; Hematocrit 21.1 % (35.3-44.9); Immature Granulocytes % 1.5 % (0-4); Immature Platelets 6.3 % (1.1-6.1); Lymphocytes # 0.5 K/mcL (0.6-4.6); Lymphocytes % 6.3 %; Mean Corpuscular HGB Conc 31.8 g/dL (31.6-35.5); Mean Corpuscular Hemoglobin 31.3 pg (28.0-33.3); Mean Platelet Volume 11.4 fL (9.4-12.4); Monocytes # 0.7 K/mcL (0.0-1.3); Neutrophils # 6.9 K/mcL (1.6-8.9); Red Blood Count 2.14 M/mcL (3.82-4.97); Red Cell Distribution Width 15.8 % (11.5-14.5); Segmented Neutrophils % 82.6 %; White Blood Count 8.4 K/mcL (4.3-11.1)
[2019-12-16 02:44] LABS: Platelet Count 95 K/mcL (140-400)
[2019-12-16 02:53] LABS: Albumin 4.4 g/dL (3.5-5.7); Albumin/Globulin Ratio 2.8 (1.1-2.2); Bilirubin,Total 1.1 mg/dL (0.3-1.0); Calcium 9.4 mg/dL (8.6-10.3); Globulin 1.6 g/dL (2.4-3.5); Potassium 2.9 mEq/L (3.5-5.1)
[2019-12-16] MEDS ORDERED: 0.9 % Sodium Chloride 250 ML ONE (05:33)
[2019-12-16] MEDS: Furosemide 40 MG/4 ML VIAL IVP SCH ×2 (09:52→22:39)
[2019-12-16] MEDS: Magnesium Oxide 400 MG TABLET PO SCH ×2 (09:52→22:41)
[2019-12-16] MEDS: calcitrioL 0.25 MCG CAPSULE PO SCH (09:52)
[2019-12-16] MEDS: levETIRAcetam 250 MG TABLET PO SCH ×2 (09:52→22:40)
[2019-12-16] MEDS: Insulin LISPRO 300 UNITS/3 ML VIAL SQ SCH ×4 (10:16→22:39)
[2019-12-17] MEDS: Ipratropium/Albuterol Neb 3 ML IH SCH ×7 (00:22→23:31)
[2019-12-17 06:30] LABS: Basophils % 0.2 %; Eosinophils # 0.2 K/mcL (0.0-0.6); Eosinophils % 1.6 %; Hematocrit 29.1 % (35.3-44.9); Hemoglobin 9.6 g/dL (11.5-15.4); Lymphocytes # 0.7 K/mcL (0.6-4.6); Mean Corpuscular Hemoglobin 31.5 pg (28.0-33.3); Mean Corpuscular Volume 95.4 fL (83.0-100.0); Mean Platelet Volume 11.2 fL (9.4-12.4); Monocytes # 0.8 K/mcL (0.0-1.3); Monocytes % 6.5 %; Neutrophils # 9.8 K/mcL (1.6-8.9); Nucleated Red Blood Cells 0.2 /100 WBC (0); Platelet Count 101 K/mcL (140-400); Red Blood Count 3.05 M/mcL (3.82-4.97); Red Cell Distribution Width 15.6 % (11.5-14.5); Segmented Neutrophils % 84.7 %; White Blood Count 11.5 K/mcL (4.3-11.1)
[2019-12-17 06:49] LABS: Calcium 9.7 mg/dL (8.6-10.3)
[2019-12-17] MEDS: Insulin LISPRO 300 UNITS/3 ML VIAL SQ SCH ×4 (09:14→21:47)
[2019-12-17] MEDS: Magnesium Oxide 400 MG TABLET PO SCH ×2 (09:28→21:07)
[2019-12-17] MEDS: calcitrioL 0.25 MCG CAPSULE PO SCH (09:29)
[2019-12-17] MEDS: Potassium Chloride Elixir 20 MEQ/15 ML UDC PO SCH ×2 (09:29→14:42)
[2019-12-17] MEDS: levETIRAcetam 250 MG TABLET PO SCH ×2 (09:29→21:07)
[2019-12-17] MEDS: Furosemide 40 MG/4 ML VIAL IVP SCH ×2 (09:29→21:08)
[2019-12-17] MEDS ORDERED: Ondansetron 4 MG/2 ML VIAL IVP PRN (21:25)
[2019-12-17] MEDS ORDERED: Benzonatate 100 MG CAPSULE PO PRN (21:54)
[2019-12-18] MEDS: Ipratropium/Albuterol Neb 3 ML IH SCH ×6 (04:02→23:36)
[2019-12-18] MEDS: Insulin LISPRO 300 UNITS/3 ML VIAL SQ SCH ×4 (08:13→21:36)
[2019-12-18] MEDS ORDERED: Lidocaine -MPF 2% 2 ML VIAL ONE (08:38)
[2019-12-18] MEDS ORDERED: *HR* Propofol 200 MG/20 ML VIAL IVP ONE (08:39)
[2019-12-18] MEDS ORDERED: *HR* Succinylcholine 200 MG/10 ML VIAL IVP ONE (08:42)
[2019-12-18] MEDS ORDERED: Ondansetron 4 MG/2 ML VIAL ONE (08:42)
[2019-12-18] MEDS ORDERED: Dexamethasone 4 MG/ML VIAL ONE (08:42)
[2019-12-18] MEDS ORDERED: *HR* FentaNYL (PF) 100 MCG/2 ML VIAL ONE (08:44)
[2019-12-18] MEDS ORDERED: *HR* PHENYLEPHRINE 1,000 MCG/10 ML SYRINGE IVP ONE ×2 (08:48→09:07)
[2019-12-18 09:46] LABS: Basophils % 0.1 %; Eosinophils # 0.1 K/mcL (0.0-0.6); Hemoglobin 9.2 g/dL (11.5-15.4); Immature Granulocytes % 0.7 % (0-4); Lymphocytes # 0.8 K/mcL (0.6-4.6); Lymphocytes % 7.9 %; Mean Corpuscular HGB Conc 32.9 g/dL (31.6-35.5); Mean Corpuscular Hemoglobin 31.4 pg (28.0-33.3); Mean Corpuscular Volume 95.6 fL (83.0-100.0); Mean Platelet Volume 11.5 fL (9.4-12.4); Monocytes # 0.8 K/mcL (0.0-1.3); Red Blood Count 2.93 M/mcL (3.82-4.97); Red Cell Distribution Width 15.3 % (11.5-14.5); Segmented Neutrophils % 82.3 %; White Blood Count 9.8 K/mcL (4.3-11.1)
[2019-12-18 09:47] LABS: Neutrophils # 8.1 K/mcL (1.6-8.9); Platelet Count 81 K/mcL (140-400)
[2019-12-18 10:05] LABS: Calcium 8.1 mg/dL (8.6-10.3); Potassium 2.5 mEq/L (3.5-5.1)
[2019-12-18] MEDS: calcitrioL 0.25 MCG CAPSULE PO SCH (12:35)
[2019-12-18] MEDS: Magnesium Oxide 400 MG TABLET PO SCH ×2 (12:35→21:35)
[2019-12-18] MEDS: levETIRAcetam 250 MG TABLET PO SCH ×2 (12:36→21:35)
[2019-12-18] MEDS: Potassium Chloride Elixir 20 MEQ/15 ML UDC PO SCH ×2 (12:36→16:36)
[2019-12-18] MEDS: Furosemide 40 MG/4 ML VIAL IVP SCH ×2 (13:00→21:35)
[2019-12-18] MEDS ORDERED: Potassium Chloride Elixir 20 MEQ/15 ML UDC PO SCH (16:45)
[2019-12-18] MEDS ORDERED: *HR* Dextrose 50 % in Water (Syg) 50 ML SYRINGE IVP PRN (17:08)
[2019-12-18] MEDS ORDERED: D5% in Water 1,000 ML IVC PRN (17:08)
[2019-12-18] MEDS ORDERED: Dextrose Gel 15 GM/37.5 ML TUBE PO PRN ×2 (17:08)
[2019-12-18] MEDS ORDERED: Insulin Human Regular 10 UNIT in 0.9 % Sodium Chloride 10 ML IV ONE (19:29)
[2019-12-18] MEDS ORDERED: *HR* Dextrose 50 % in Water (Syg) 50 ML SYRINGE IVP ONE (19:31)
[2019-12-18 23:40] LABS: Calcium 9.1 mg/dL (8.6-10.3); Potassium 4.5 mEq/L (3.5-5.1)
[2019-12-19] MEDS: Calcium Gluconate 1gm/50mL 1 GM/50 ML BAG IVPB SCH (00:28)
[2019-12-19] MEDS: Ipratropium/Albuterol Neb 3 ML IH SCH ×3 (04:21→11:06)
[2019-12-19 05:19] LABS: Basophils % 0.1 %; Hematocrit 29.1 % (35.3-44.9); Red Blood Count 3.03 M/mcL (3.82-4.97)
[2019-12-19 05:21] LABS: Eosinophils % 0.4 %; Hemoglobin 9.4 g/dL (11.5-15.4); Immature Granulocytes % 0.8 % (0-4); Immature Platelets 7.7 % (1.1-6.1); Lymphocytes # 0.6 K/mcL (0.6-4.6); Lymphocytes % 5.6 %; Mean Corpuscular HGB Conc 32.3 g/dL (31.6-35.5); Mean Platelet Volume 12.1 fL (9.4-12.4); Monocytes % 10.3 %; Neutrophils # 8.3 K/mcL (1.6-8.9); Nucleated Red Blood Cells 0.3 /100 WBC (0); Red Cell Distribution Width 15.2 % (11.5-14.5); Segmented Neutrophils % 82.8 %
[2019-12-19 05:39] LABS: Large Platelets Present (Not Present); Platelet Count 98 K/mcL (140-400); Platelet Estimate Decreased (Normal)
[2019-12-19 05:40] LABS: Calcium 8.9 mg/dL (8.6-10.3); Magnesium 1.7 mg/dL (1.6-2.6); Phosphorous 2.5 mg/dL (2.7-4.5); Potassium 3.7 mEq/L (3.5-5.1)
[2019-12-19 07:50] VITALS: BP 122/57
[2019-12-19] MEDS: levETIRAcetam 250 MG TABLET PO SCH (08:52)
[2019-12-19] MEDS: Magnesium Oxide 400 MG TABLET PO SCH (08:52)
[2019-12-19] MEDS: calcitrioL 0.25 MCG CAPSULE PO SCH (08:52)
[2019-12-19] MEDS: Furosemide 40 MG/4 ML VIAL IVP SCH (08:53)
[2019-12-19] MEDS: Insulin LISPRO 300 UNITS/3 ML VIAL SQ SCH (08:53)
[2019-12-19] MEDS ORDERED: Apixaban 5 MG TABLET PO SCH (09:00)
[2019-12-19] MEDS: Darbepoetin 100 MCG/0.5 ML SYRINGE SQ SCH (11:13)
== END 2019-12-19 12:17 | DRG 870 ==
LOC: EMEROOARM 07:48 → ICNU 12:03 → SUATTDRO 14:05 → 2NNU 12-12 14:49 → 2NENU 12-16 21:24
PROVIDERS: ADMIT Internal Medicine Pulmonary Disease; ATTEND Internal Medicine

== ENCOUNTER 2020-12-27 07:52 | Inpatient (IN) ==
[2020-12-27 09:02] LABS: VBG HCO3 31 mEq/L (21-27); VBG PCO2 56 mmHg (41-51); VBG PH 7.35 pH Units (7.32-7.42); VBG PO2 105 mmHg (25-50)
[2020-12-27 09:11] LABS: Alanine Aminotransferase 14 Units/L (7-52); Albumin 3.5 g/dL (3.5-5.7); Alkaline Phosphatase 45 Units/L (34-104); Aspartate Amino Transferase 20 Units/L (13-39); BUN/Creatinine Ratio 29 (6-26); Bilirubin,Direct 0.1 mg/dL (0.0-0.2); Bilirubin,Indirect 0.3 mg/dL (0.0-1.0); Bilirubin,Total 0.4 mg/dL (0.3-1.0); Blood Urea Nitrogen 61 mg/dL (8-23); Calcium 9.7 mg/dL (8.6-10.3); Carbon Dioxide 29 mEq/L (23-29); Chloride 105 mEq/L (98-107); Globulin 3.5 g/dL (2.4-3.5); Glucose 83 mg/dL (70-105); Osmolality,Calculated 312 (280-300); Potassium 4.4 mEq/L (3.5-5.1); Sodium 143 mEq/L (136-145); Troponin I < 0.03 ng/mL (< 0.04); eGFR For African Americans 28 (> 60); eGFR For Non-African Americans 23 (> 60)
[2020-12-27 10:02] LABS: Eosinophils # 0.1 K/mcL (0.0-0.6); Eosinophils % 1.1 %; Hematocrit 27.1 % (35.3-44.9); Hemoglobin 8.5 g/dL (11.5-15.4); Immature Granulocytes % 0.2 % (0-4); Immature Platelets 2.1 % (1.1-6.1); Lymphocytes # 0.7 K/mcL (0.6-4.6); Lymphocytes % 12.9 %; Mean Corpuscular HGB Conc 31.4 g/dL (31.6-35.5); Mean Corpuscular Hemoglobin 31.5 pg (28.0-33.3); Mean Corpuscular Volume 100.4 fL (83.0-100.0); Mean Platelet Volume 10.5 fL (9.4-12.4); Monocytes # 0.3 K/mcL (0.0-1.3); Monocytes % 5.6 %; Neutrophils # 4.3 K/mcL (1.6-8.9); Platelet Count 111 K/mcL (140-400); Red Cell Distribution Width 13.6 % (11.5-14.5); Segmented Neutrophils % 80.2 %; White Blood Count 5.3 K/mcL (4.3-11.1)
[2020-12-27 11:06] LABS: Bilirubin,Urine Negative (Negative); Blood,Urine Moderate (Negative); Clarity,Urine Clear (Clear); Color,Urine Light-Yellow (Yellow); Glucose,Urine (UA) Normal (Normal); Ketones,Urine Negative (Negative); Leukocyte Esterase,Urine Negative (Negative); Nitrite,Urine Negative (Negative); Protein,Urine Trace mg/dL (Neg-Trace); Specific Gravity,Urine 1.015 (1.010-1.025); Squamous Epithelial Cell,Urine Few per hpf (None-Few); Urobilinogen,Urine Normal (Normal)
[2020-12-27 11:07] LABS: Amphetamine Screen,Urine Negative ng/mL (Cutoff=1000); Barbiturate Screen,Urine Negative ng/mL (Cutoff=200); Benzodiazepines Screen,Urine Negative ng/mL (Cutoff=200); Cannabinoid Screen,Urine Negative ng/mL (Cutoff = 50); Cocaine Screen,Urine Negative ng/mL (Cutoff= 300); Opiate Screen,Urine Positive ng/mL (Cutoff=300); Phencyclidine Screen,Urine Negative ng/mL (Cutoff=25)
[2020-12-27] MEDS ORDERED: 0.9 % Sodium Chloride 500 ML IVC ONE ×3 (11:13→13:39)
[2020-12-27] MEDS ORDERED: 0.9 % Sodium Chloride 500 ML ONE (11:14)
[2020-12-27] MEDS ORDERED: Acetaminophen 325 MG TABLET PO PRN (13:31)
[2020-12-27] MEDS ORDERED: Ondansetron 4 MG/2 ML VIAL IVP PRN (13:31)
[2020-12-27] MEDS ORDERED: Melatonin 3 MG TABLET PO PRN (13:31)
[2020-12-27] MEDS ORDERED: levETIRAcetam 250 MG TABLET PO SCH (13:45)
[2020-12-27 14:54] LABS: C-Reactive Protein < 5 mg/L (Less than 10)
[2020-12-27 15:08] LABS: Thyroid Stimulating Hormone 0.848 mcIU/mL (0.340-5.600)
[2020-12-27] MEDS: cefTRIAXone 1,000 MG in Water for inj. (sterile) 10 ML IVP SCH (17:33)
[2020-12-27] MEDS ORDERED: D5% in Water 1,000 ML IVC PRN (18:43)
[2020-12-27] MEDS ORDERED: *HR* Dextrose 50 % in Water (Vial) 50 ML VIAL IVP PRN (18:43)
[2020-12-27] MEDS ORDERED: Dextrose Gel 15 GM/37.5 ML TUBE PO PRN ×2 (18:43)
[2020-12-27] MEDS: Budesonide/Formoterol 80/4.5 1 PUFF INH IH SCH ×2 (20:19→20:29)
[2020-12-27] MEDS: Apixaban 5 MG TABLET PO SCH (21:52)
[2020-12-28 04:07] LABS: Hematocrit 25.2 % (35.3-44.9); Immature Platelets 2.7 % (1.1-6.1); Mean Corpuscular HGB Conc 31.7 g/dL (31.6-35.5); Mean Corpuscular Hemoglobin 31.1 pg (28.0-33.3); Mean Corpuscular Volume 98.1 fL (83.0-100.0); Mean Platelet Volume 10.1 fL (9.4-12.4); Red Blood Count 2.57 M/mcL (3.82-4.97); Red Cell Distribution Width 13.3 % (11.5-14.5); White Blood Count 6.3 K/mcL (4.3-11.1)
[2020-12-28 04:09] LABS: VBG HCO3 25 mEq/L (21-27); VBG PCO2 41 mmHg (41-51); VBG PH 7.38 pH Units (7.32-7.42); VBG PO2 250 mmHg (25-50)
[2020-12-28 04:15] LABS: Calcium 8.7 mg/dL (8.6-10.3); Potassium 3.7 mEq/L (3.5-5.1)
[2020-12-28] MEDS: Budesonide/Formoterol 80/4.5 1 PUFF INH IH SCH ×2 (08:46→19:50)
[2020-12-28] MEDS ORDERED: levETIRAcetam 250 MG in 0.9 % Sodium Chloride 100 ML IVPB SCH (09:00)
[2020-12-28] MEDS: cefTRIAXone 1,000 MG in Water for inj. (sterile) 10 ML IVP SCH (09:30)
[2020-12-28] MEDS: Apixaban 5 MG TABLET PO SCH ×2 (10:27→21:23)
[2020-12-28] MEDS: Aspirin 81 MG TAB.CHEW PO SCH (10:27)
[2020-12-28] MEDS ORDERED: *HR* LORazepam 0.5 MG TABLET PO PRN (13:16)
[2020-12-28] MEDS ORDERED: *HR* HYDROcodone/Acet 5/325 mg TABLET PO PRN (13:16)
[2020-12-28] MEDS ORDERED: Ipratropium/Albuterol Neb 3 ML IH PRN (13:20)
[2020-12-28] MEDS: Artificial Tears SOLN 15 ML BOTTLE BOTH EYES SCH ×2 (16:41→21:29)
[2020-12-28] MEDS: Furosemide 40 MG TABLET PO SCH (21:24)
[2020-12-28] MEDS: QUEtiapine Fumarate 25 MG TABLET PO SCH (21:24)
[2020-12-29] MEDS: Budesonide/Formoterol 80/4.5 1 PUFF INH IH SCH ×2 (08:14→21:25)
[2020-12-29] MEDS: Aspirin 81 MG TAB.CHEW PO SCH (08:36)
[2020-12-29] MEDS: Apixaban 5 MG TABLET PO SCH ×2 (08:36→20:38)
[2020-12-29] MEDS: calcitrioL 0.25 MCG CAPSULE PO SCH (08:36)
[2020-12-29] MEDS: Furosemide 40 MG TABLET PO SCH ×2 (08:36→20:38)
[2020-12-29] MEDS: Loratadine 10 MG TABLET PO SCH (08:36)
[2020-12-29] MEDS: Fluticasone Propionate Nasal 50 MCG/SPRAY BOTTLE NS SCH (08:37)
[2020-12-29] MEDS: Artificial Tears SOLN 15 ML BOTTLE BOTH EYES SCH ×4 (08:37→20:39)
[2020-12-29] MEDS: levETIRAcetam 250 MG TABLET PO SCH ×2 (08:37→20:38)
[2020-12-29 14:01] LABS: Basophils % 0.1 %; Eosinophils % 1.1 %; Immature Granulocytes % 0.8 % (0-4); Mean Corpuscular HGB Conc 31.2 g/dL (31.6-35.5); Red Blood Count 2.77 M/mcL (3.82-4.97)
[2020-12-29 14:03] LABS: Eosinophils # 0.1 K/mcL (0.0-0.6); Hematocrit 27.6 % (35.3-44.9); Hemoglobin 8.6 g/dL (11.5-15.4); Immature Platelets 3.1 % (1.1-6.1); Lymphocytes # 0.9 K/mcL (0.6-4.6); Lymphocytes % 9.9 %; Mean Corpuscular Volume 99.6 fL (83.0-100.0); Mean Platelet Volume 10.3 fL (9.4-12.4); Monocytes # 0.4 K/mcL (0.0-1.3); Monocytes % 4.5 %; Neutrophils # 7.5 K/mcL (1.6-8.9); Platelet Count 109 K/mcL (140-400); Red Cell Distribution Width 13.4 % (11.5-14.5); Segmented Neutrophils % 83.6 %
[2020-12-29 14:15] LABS: Calcium 8.8 mg/dL (8.6-10.3); Magnesium 1.9 mg/dL (1.6-2.6); Potassium 3.8 mEq/L (3.5-5.1)
[2020-12-29] MEDS: QUEtiapine Fumarate 25 MG TABLET PO SCH (20:38)
[2020-12-30 06:20] LABS: Immature Granulocytes % 0.4 % (0-4)
[2020-12-30 06:21] LABS: Eosinophils # 0.1 K/mcL (0.0-0.6); Eosinophils % 1.2 %; Hematocrit 24.7 % (35.3-44.9); Hemoglobin 7.9 g/dL (11.5-15.4); Immature Platelets 2.7 % (1.1-6.1); Lymphocytes # 0.8 K/mcL (0.6-4.6); Lymphocytes % 12.2 %; Mean Corpuscular Volume 96.9 fL (83.0-100.0); Monocytes # 0.3 K/mcL (0.0-1.3); Red Blood Count 2.55 M/mcL (3.82-4.97); Red Cell Distribution Width 13.4 % (11.5-14.5); Segmented Neutrophils % 81.2 %; White Blood Count 6.8 K/mcL (4.3-11.1)
[2020-12-30 06:23] LABS: Neutrophils # 5.5 K/mcL (1.6-8.9); Platelet Count 95 K/mcL (140-400)
[2020-12-30 06:37] LABS: Calcium 8.7 mg/dL (8.6-10.3); Magnesium 1.7 mg/dL (1.6-2.6); Potassium 3.3 mEq/L (3.5-5.1)
[2020-12-30 07:39] LABS: Folate 8.5 ng/mL (3.0-16.0)
[2020-12-30] MEDS: Budesonide/Formoterol 80/4.5 1 PUFF INH IH SCH ×2 (08:02→20:32)
[2020-12-30] MEDS: Apixaban 5 MG TABLET PO SCH ×2 (08:30→22:26)
[2020-12-30] MEDS: Loratadine 10 MG TABLET PO SCH (08:34)
[2020-12-30] MEDS: levETIRAcetam 250 MG TABLET PO SCH ×2 (08:35→22:26)
[2020-12-30] MEDS: calcitrioL 0.25 MCG CAPSULE PO SCH (08:35)
[2020-12-30] MEDS: Aspirin 81 MG TAB.CHEW PO SCH (08:35)
[2020-12-30] MEDS: Artificial Tears SOLN 15 ML BOTTLE BOTH EYES SCH ×4 (08:35→22:27)
[2020-12-30] MEDS: Furosemide 40 MG TABLET PO SCH ×2 (08:36→22:26)
[2020-12-30] MEDS: Fluticasone Propionate Nasal 50 MCG/SPRAY BOTTLE NS SCH (08:36)
[2020-12-30] MEDS ORDERED: Iron Sucrose Complex 250 MG in 0.9 % Sodium Chloride 250 ML IVPB ONE (15:30)
[2020-12-30] MEDS: QUEtiapine Fumarate 25 MG TABLET PO SCH (22:26)
[2020-12-31 07:26] LABS: Hemoglobin 7.4 g/dL (11.5-15.4); Mean Platelet Volume 10.6 fL (9.4-12.4); Red Cell Distribution Width 13.5 % (11.5-14.5)
[2020-12-31 07:28] LABS: Basophils % 0.2 %; Eosinophils # 0.1 K/mcL (0.0-0.6); Eosinophils % 1.4 %; Hematocrit 22.7 % (35.3-44.9); Immature Granulocytes % 0.5 % (0-4); Immature Platelets 3.3 % (1.1-6.1); Lymphocytes # 0.7 K/mcL (0.6-4.6); Lymphocytes % 11.6 %; Mean Corpuscular HGB Conc 32.6 g/dL (31.6-35.5); Mean Corpuscular Hemoglobin 31.9 pg (28.0-33.3); Mean Corpuscular Volume 97.8 fL (83.0-100.0); Monocytes # 0.3 K/mcL (0.0-1.3); Monocytes % 4.7 %; Neutrophils # 5.1 K/mcL (1.6-8.9); Red Blood Count 2.32 M/mcL (3.82-4.97); Segmented Neutrophils % 81.6 %; White Blood Count 6.2 K/mcL (4.3-11.1)
[2020-12-31 07:29] LABS: Platelet Count 91 K/mcL (140-400)
[2020-12-31] MEDS: Budesonide/Formoterol 80/4.5 1 PUFF INH IH SCH (07:36)
[2020-12-31 07:52] VITALS: BP 116/73
[2020-12-31 07:52] LABS: Calcium 8.7 mg/dL (8.6-10.3); Magnesium 1.8 mg/dL (1.6-2.6); Potassium 3.9 mEq/L (3.5-5.1)
[2020-12-31] MEDS: Apixaban 5 MG TABLET PO SCH (08:21)
[2020-12-31] MEDS: Aspirin 81 MG TAB.CHEW PO SCH (08:21)
[2020-12-31] MEDS: calcitrioL 0.25 MCG CAPSULE PO SCH (08:22)
[2020-12-31] MEDS: Furosemide 40 MG TABLET PO SCH (08:22)
[2020-12-31] MEDS: Artificial Tears SOLN 15 ML BOTTLE BOTH EYES SCH ×2 (08:22→13:21)
[2020-12-31] MEDS: Fluticasone Propionate Nasal 50 MCG/SPRAY BOTTLE NS SCH (08:22)
[2020-12-31] MEDS: Loratadine 10 MG TABLET PO SCH (08:23)
[2020-12-31] MEDS: levETIRAcetam 250 MG TABLET PO SCH (08:23)
[2020-12-31 14:03] LABS: Adenovirus Not Detected (Not Detect); Bordetella Pertussis Not Detected (Not Detect); Chlamydophila pneumoniae Not Detected (Not Detect); Coronavirus 229E Not Detected (Not Detect); Coronavirus HKU1 Not Detected (Not Detect); Coronavirus NL63 Not Detected (Not Detect); Coronavirus OC43 Not Detected (Not Detect); Human Metapneumovirus Not Detected (Not Detect); Human Rhinovirus/Enterovirus DETECTED (Not Detect); Influenza A Subtype 2009 H1 Not Detected (Not Detect); Influenza B Not Detected (Not Detect); Parainfluenza Virus 1 Not Detected (Not Detect); Parainfluenza Virus 2 Not Detected (Not Detect); Parainfluenza Virus 3 Not Detected (Not Detect); Parainfluenza Virus 4 Not Detected (Not Detect); Respiratory Syncytial Virus Not Detected (Not Detect); SARS-CoV-2 Not Detected (Not Detect)
[2020-12-31 14:04] LABS: Mycoplasma pneumoniae Not Detected (Not Detect)
== END 2020-12-31 15:38 | DRG 91 ==
LOC: 3ANU 07:52 → EMEROOARM 07:52 → SUATTDRO 13:39 → 3ANU 16:08
PROVIDERS: ADMIT Internal Medicine; ATTEND Pharmacist

== ENCOUNTER 2021-03-06 12:12 | Inpatient (IN) ==
[2021-03-06 13:35] LABS: Alanine Aminotransferase 17 Units/L (7-52); Albumin 3.1 g/dL (3.5-5.7); Alkaline Phosphatase 46 Units/L (34-104); Aspartate Amino Transferase 17 Units/L (13-39); BUN/Creatinine Ratio 32 (6-26); Bilirubin,Indirect 0.3 mg/dL (0.0-1.0); Bilirubin,Total 0.3 mg/dL (0.3-1.0); Blood Urea Nitrogen 56 mg/dL (8-23); Calcium 8.8 mg/dL (8.6-10.3); Carbon Dioxide 22 mEq/L (23-29); Chloride 105 mEq/L (98-107); Ethanol < 10 mg/dL (Less than 10); Glucose 81 mg/dL (70-105); Osmolality,Calculated 295 (280-300); Potassium 4.7 mEq/L (3.5-5.1); Sodium 135 mEq/L (136-145); Total Protein 6.1 g/dL (6.4-8.9); Troponin I < 0.03 ng/mL (< 0.04); eGFR For African Americans 34 (> 60); eGFR For Non-African Americans 28 (> 60)
[2021-03-06 13:39] LABS: Bacteria,Urine Few per hpf (None-Few); Granular Casts,Urine Few per lpf (None Seen); Mucus,Urine Few per lpf (None-Few); RBC,Urine 0-3 per hpf (0-3); Squamous Epithelial Cell,Urine Few per hpf (None-Few)
[2021-03-06 13:40] LABS: Clarity,Urine Clear (Clear); Color,Urine Light Yellow (Yellow); Glucose,Urine (UA) Normal (Normal)
[2021-03-06 13:40] LABS: Amphetamine Screen,Urine Negative ng/mL (Cutoff=1000); Barbiturate Screen,Urine Negative ng/mL (Cutoff=200); Benzodiazepines Screen,Urine Negative ng/mL (Cutoff=200); Cannabinoid Screen,Urine Negative ng/mL (Cutoff = 50); Cocaine Screen,Urine Negative ng/mL (Cutoff= 300); Opiate Screen,Urine Negative ng/mL (Cutoff=300); Phencyclidine Screen,Urine Negative ng/mL (Cutoff=25)
[2021-03-06 13:41] LABS: Bilirubin,Urine Negative (Negative); Blood,Urine Negative (Negative); Ketones,Urine Negative (Negative); Specific Gravity,Urine 1.016 (1.010-1.025)
[2021-03-06 13:42] LABS: Nitrite,Urine Negative (Negative); Urobilinogen,Urine Normal (Normal)
[2021-03-06 13:43] LABS: Leukocyte Esterase,Urine Negative (Negative)
[2021-03-06 13:44] LABS: Protein,Urine 30 mg/dL (Neg-Trace)
[2021-03-06 13:58] LABS: Basophils % 0.2 %; Eosinophils # 0.1 K/mcL (0.0-0.6); Eosinophils % 1.8 %; Hematocrit 24.9 % (35.3-44.9); Hemoglobin 8.6 g/dL (11.5-15.4); Immature Granulocytes % 0.5 % (0-4); Lymphocytes # 0.8 K/mcL (0.6-4.6); Lymphocytes % 12.7 %; Mean Corpuscular HGB Conc 34.5 g/dL (31.6-35.5); Mean Corpuscular Hemoglobin 32.1 pg (28.0-33.3); Mean Corpuscular Volume 92.9 fL (83.0-100.0); Mean Platelet Volume 12.4 fL (9.4-12.4); Monocytes # 0.3 K/mcL (0.0-1.3); Monocytes % 4.3 %; Neutrophils # 4.9 K/mcL (1.6-8.9); Platelet Count 160 K/mcL (140-400); Red Blood Count 2.68 M/mcL (3.82-4.97); Red Cell Distribution Width 14.3 % (11.5-14.5); Segmented Neutrophils % 80.5 %; White Blood Count 6.1 K/mcL (4.3-11.1)
[2021-03-06 13:59] LABS: Platelet Estimate Decreased (Normal)
[2021-03-06] MEDS ORDERED: Piperacillin/Tazobactam 3.375 GM in 0.9 % Sodium Chloride Mini Bag 100 ML IVPB ONE (15:45)
[2021-03-06] MEDS ORDERED: Ondansetron 4 MG/2 ML VIAL IVP PRN (16:06)
[2021-03-06] MEDS ORDERED: Naloxone 0.4 MG/ML INJ IVP PRN (16:06)
[2021-03-06] MEDS ORDERED: Acetaminophen 325 MG TABLET PO PRN (16:06)
[2021-03-06] MEDS ORDERED: Vancomycin 1,250 MG/262.5 ML IV.SOLN IVPB ONE (22:00)
[2021-03-07] MEDS ORDERED: Vancomycin 1,500 MG/265 ML IV.SOLN IVPB ONE (12:00)
[2021-03-07] MEDS: levETIRAcetam 250 MG TABLET PO SCH ×2 (16:00)
[2021-03-07 16:18] LABS: Hematocrit 25.9 % (35.3-44.9); Hemoglobin 8.6 g/dL (11.5-15.4); Mean Corpuscular HGB Conc 33.2 g/dL (31.6-35.5); Mean Corpuscular Hemoglobin 31.2 pg (28.0-33.3); Mean Corpuscular Volume 93.8 fL (83.0-100.0); Mean Platelet Volume 10.3 fL (9.4-12.4); Platelet Count 105 K/mcL (140-400); Red Blood Count 2.76 M/mcL (3.82-4.97); Red Cell Distribution Width 13.1 % (11.5-14.5); White Blood Count 7.2 K/mcL (4.3-11.1)
[2021-03-07 16:20] LABS: BUN/Creatinine Ratio 30 (6-26); Blood Urea Nitrogen 47 mg/dL (8-23); Calcium 9.4 mg/dL (8.6-10.3); Carbon Dioxide 25 mEq/L (23-29); Chloride 106 mEq/L (98-107); Glucose 88 mg/dL (70-105); Lactate Dehydrogenase 106 Units/L (140-271); Osmolality,Calculated 298 (280-300); Potassium 4.4 mEq/L (3.5-5.1); Sodium 138 mEq/L (136-145); Total Protein 6.5 g/dL (6.4-8.9); eGFR For African Americans 39 (> 60); eGFR For Non-African Americans 32 (> 60)
[2021-03-07] MEDS: Piperacillin/Tazobactam 3.375 GM in 0.9 % Sodium Chloride Mini Bag 100 ML IVPB SCH (17:31)
[2021-03-07] MEDS: Budesonide/Formoterol 160/4.5 1 PUFF INH IH SCH (20:00)
[2021-03-07] MEDS: QUEtiapine Fumarate 25 MG TABLET PO SCH (20:48)
[2021-03-08] MEDS: Piperacillin/Tazobactam 3.375 GM in 0.9 % Sodium Chloride Mini Bag 100 ML IVPB SCH ×3 (01:31→18:06)
[2021-03-08 05:25] LABS: Hemoglobin 7.6 g/dL (11.5-15.4); Mean Platelet Volume 10.3 fL (9.4-12.4); Red Cell Distribution Width 13.1 % (11.5-14.5)
[2021-03-08 05:27] LABS: Hematocrit 23.4 % (35.3-44.9); Mean Corpuscular HGB Conc 32.5 g/dL (31.6-35.5); Mean Corpuscular Hemoglobin 30.8 pg (28.0-33.3); Mean Corpuscular Volume 94.7 fL (83.0-100.0); Red Blood Count 2.47 M/mcL (3.82-4.97)
[2021-03-08 05:41] LABS: Potassium 4.2 mEq/L (3.5-5.1)
[2021-03-08] MEDS: Budesonide/Formoterol 160/4.5 1 PUFF INH IH SCH ×2 (07:25→20:24)
[2021-03-08] MEDS: levETIRAcetam 250 MG TABLET PO SCH ×2 (08:24)
[2021-03-08] MEDS: calcitrioL 0.25 MCG CAPSULE PO SCH (08:25)
[2021-03-08] MEDS: polyethylene glycoL 3350 17 GM POWD.PACK PO SCH (08:25)
[2021-03-08] MEDS: Furosemide 40 MG TABLET PO SCH (08:31)
[2021-03-08 10:11] LABS: Hematocrit 22.6 % (35.3-44.9); Hemoglobin 7.2 g/dL (11.5-15.4)
[2021-03-08 14:10] LABS: Hematocrit 22.1 % (35.3-44.9); Hemoglobin 7.1 g/dL (11.5-15.4)
[2021-03-08] MEDS ORDERED: 0.9 % Sodium Chloride 250 ML IVC SCH (15:15)
[2021-03-08 15:16] LABS: INR 1.4; Prothrombin Time 15.9 Seconds (9.4-12.1)
[2021-03-08 17:44] LABS: Hematocrit 21.8 % (35.3-44.9); Hemoglobin 6.9 g/dL (11.5-15.4)
[2021-03-08] MEDS: QUEtiapine Fumarate 25 MG TABLET PO SCH (22:35)
[2021-03-09] MEDS: *HR* HYDROcodone/Acet 5/325 mg TABLET PO PRN ×3 (00:11→20:53)
[2021-03-09] MEDS: Piperacillin/Tazobactam 3.375 GM in 0.9 % Sodium Chloride Mini Bag 100 ML IVPB SCH ×3 (03:36→09:41)
[2021-03-09 05:31] LABS: Hematocrit 24.2 % (35.3-44.9); Hemoglobin 7.8 g/dL (11.5-15.4); Immature Platelets 2.4 % (1.1-6.1); Mean Corpuscular HGB Conc 32.2 g/dL (31.6-35.5); Mean Corpuscular Volume 93.1 fL (83.0-100.0); Mean Platelet Volume 10.6 fL (9.4-12.4); Red Blood Count 2.6 M/mcL (3.82-4.97); White Blood Count 5.6 K/mcL (4.3-11.1)
[2021-03-09 05:49] LABS: Calcium 8.3 mg/dL (8.6-10.3)
[2021-03-09] MEDS: Budesonide/Formoterol 160/4.5 1 PUFF INH IH SCH ×2 (07:49→19:58)
[2021-03-09] MEDS: Furosemide 40 MG TABLET PO SCH (08:45)
[2021-03-09] MEDS: polyethylene glycoL 3350 17 GM POWD.PACK PO SCH (08:45)
[2021-03-09] MEDS: calcitrioL 0.25 MCG CAPSULE PO SCH (08:45)
[2021-03-09] MEDS: levETIRAcetam 250 MG TABLET PO SCH ×2 (08:45→08:47)
[2021-03-09] MEDS ORDERED: Vancomycin 1 EACH in 0.9 % Sodium Chloride 250 ML IVPB PRN (11:00)
[2021-03-09] MEDS: Amoxicillin/Clavulanate 500 MG TABLET PO SCH (17:49)
[2021-03-09] MEDS: QUEtiapine Fumarate 25 MG TABLET PO SCH (20:46)
[2021-03-09] MEDS: Apixaban 5 MG TABLET PO SCH (20:46)
[2021-03-09] MEDS: Doxycycline 100 MG CAPSULE PO SCH (20:46)
[2021-03-10 03:34] LABS: Red Cell Distribution Width 14.6 % (11.5-14.5); White Blood Count 6.2 K/mcL (4.3-11.1)
[2021-03-10 03:36] LABS: Hemoglobin 7.2 g/dL (11.5-15.4); Immature Platelets 2.9 % (1.1-6.1); Mean Corpuscular HGB Conc 32.7 g/dL (31.6-35.5); Mean Corpuscular Hemoglobin 30.6 pg (28.0-33.3); Mean Corpuscular Volume 93.6 fL (83.0-100.0); Mean Platelet Volume 10.1 fL (9.4-12.4); Red Blood Count 2.35 M/mcL (3.82-4.97)
[2021-03-10 03:56] LABS: Calcium 8.2 mg/dL (8.6-10.3); Potassium 4.4 mEq/L (3.5-5.1)
[2021-03-10] MEDS: Budesonide/Formoterol 160/4.5 1 PUFF INH IH SCH (07:46)
[2021-03-10] MEDS ORDERED: Aspirin 81 MG TAB.CHEW PO SCH (09:00)
[2021-03-10] MEDS: calcitrioL 0.25 MCG CAPSULE PO SCH (09:05)
[2021-03-10] MEDS: Apixaban 5 MG TABLET PO SCH (09:06)
[2021-03-10] MEDS: Amoxicillin/Clavulanate 500 MG TABLET PO SCH (09:06)
[2021-03-10] MEDS: Doxycycline 100 MG CAPSULE PO SCH (09:06)
[2021-03-10] MEDS: Furosemide 40 MG TABLET PO SCH (09:06)
[2021-03-10] MEDS: levETIRAcetam 250 MG TABLET PO SCH ×2 (09:06)
[2021-03-10] MEDS: polyethylene glycoL 3350 17 GM POWD.PACK PO SCH (09:07)
[2021-03-10] MEDS: *HR* HYDROcodone/Acet 5/325 mg TABLET PO PRN (09:08)
[2021-03-10 09:14] LABS: Hematocrit 22.6 % (35.3-44.9); Hemoglobin 7.3 g/dL (11.5-15.4)
[2021-03-10 10:47] VITALS: BP 94/55
== END 2021-03-10 13:32 | DRG 177 ==
LOC: EMEROOARM 12:12 → 2ANU 12:12 → SUATTDRO 16:35 → 2ANU 17:07
PROVIDERS: ADMIT Internal Medicine; ATTEND Family Medicine

== ENCOUNTER 2021-03-11 10:14 | Observation (INO) ==
[2021-03-11] MEDS ORDERED: 0.9 % Sodium Chloride 1,000 ML IVC ONE ×2 (10:19→12:58)
[2021-03-11 10:38] LABS: ABG Base Excess 0 mEq/L (-2 to 3); ABG HCO3 25 mEq/L (21-27); ABG Oxygen Saturation 95 % (95-98); ABG PCO2 41 mmHg (35-45); ABG PH 7.39 pH Units (7.32-7.45); ABG PO2 75 mmHg (85-104); ABG TCO2 26 mEq/L (20-26)
[2021-03-11 11:02] LABS: Hematocrit 24.4 % (35.3-44.9)
[2021-03-11 11:04] LABS: Eosinophils # 0.1 K/mcL (0.0-0.6); Hemoglobin 7.8 g/dL (11.5-15.4); Immature Granulocytes % 0.2 % (0-4); Immature Platelets 2.8 % (1.1-6.1); Lymphocytes # 0.7 K/mcL (0.6-4.6); Lymphocytes % 17.9 %; Mean Corpuscular Hemoglobin 30.1 pg (28.0-33.3); Mean Corpuscular Volume 94.2 fL (83.0-100.0); Monocytes # 0.3 K/mcL (0.0-1.3); Monocytes % 6.5 %; Neutrophils # 2.9 K/mcL (1.6-8.9); Red Blood Count 2.59 M/mcL (3.82-4.97); Red Cell Distribution Width 14.2 % (11.5-14.5); Segmented Neutrophils % 72.4 %
[2021-03-11 11:05] LABS: Platelet Count 82 K/mcL (140-400)
[2021-03-11 11:09] LABS: INR 1.4; Prothrombin Time 16.3 Seconds (9.4-12.1)
[2021-03-11 11:29] LABS: Bilirubin,Urine Negative (Negative); Blood,Urine Negative (Negative); Clarity,Urine Clear (Clear); Color,Urine Light-Yellow (Yellow); Glucose,Urine (UA) Normal (Normal); Hyaline Casts,Urine Few per lpf (None Seen); Ketones,Urine Negative (Negative); Leukocyte Esterase,Urine Trace (Negative); Mucus,Urine Few per lpf (None-Few); Nitrite,Urine Negative (Negative); PH,Urine 5.5 pH Units (5.0-8.0); Protein,Urine Negative (Neg-Trace); RBC,Urine 0-3 per hpf (0-3); Specific Gravity,Urine 1.012 (1.010-1.025); Squamous Epithelial Cell,Urine Few per hpf (None-Few); Urobilinogen,Urine Normal (Normal); WBC,Urine 0-3 per hpf (0-3)
[2021-03-11 11:42] LABS: Alanine Aminotransferase 11 Units/L (7-52); Albumin 3.2 g/dL (3.5-5.7); Albumin/Globulin Ratio 1.2 (1.1-2.2); Alkaline Phosphatase 44 Units/L (34-104); Aspartate Amino Transferase 13 Units/L (13-39); BUN/Creatinine Ratio 25 (6-26); Bilirubin,Direct 0.1 mg/dL (0.0-0.2); Bilirubin,Indirect 0.2 mg/dL (0.0-1.0); Bilirubin,Total 0.3 mg/dL (0.3-1.0); Blood Urea Nitrogen 51 mg/dL (8-23); Carbon Dioxide 22 mEq/L (23-29); Chloride 105 mEq/L (98-107); Globulin 2.7 g/dL (2.4-3.5); Glucose 87 mg/dL (70-105); Osmolality,Calculated 299 (280-300); Potassium 4.1 mEq/L (3.5-5.1); Sodium 138 mEq/L (136-145); Total Protein 5.9 g/dL (6.4-8.9); Troponin I < 0.03 ng/mL (< 0.04); eGFR For African Americans 29 (> 60); eGFR For Non-African Americans 24 (> 60)
[2021-03-11] MEDS ORDERED: Piperacillin/Tazobactam 3.375 GM in Water for inj. (sterile) 20 ML IVP ONE (12:57)
[2021-03-11] MEDS ORDERED: Vancomycin 1,500 MG/265 ML IV.SOLN IVPB ONE (12:57)
[2021-03-11 14:52] LABS: Amphetamine Screen,Urine Negative ng/mL (Cutoff=1000); Barbiturate Screen,Urine Negative ng/mL (Cutoff=200); Benzodiazepines Screen,Urine Negative ng/mL (Cutoff=200); Cannabinoid Screen,Urine Negative ng/mL (Cutoff = 50); Cocaine Screen,Urine Negative ng/mL (Cutoff= 300); Opiate Screen,Urine Positive ng/mL (Cutoff=300); Phencyclidine Screen,Urine Negative ng/mL (Cutoff=25)
[2021-03-11] MEDS ORDERED: Naloxone 0.4 MG/ML INJ IVP PRN (15:36)
[2021-03-11] MEDS ORDERED: Mag Hydrox/Al Hydrox/Simeth 30 ML UDC PO PRN (15:36)
[2021-03-11] MEDS ORDERED: Ondansetron ODT 4 MG TAB.RAPDIS SL PRN (15:36)
[2021-03-11] MEDS ORDERED: Melatonin 3 MG TABLET PO PRN (15:36)
[2021-03-11] MEDS ORDERED: Vancomycin 1,250 MG/262.5 ML IV.SOLN IVPB SCH (17:00)
[2021-03-11] MEDS: Piperacillin/Tazobactam 3.375 GM in 0.9 % Sodium Chloride Mini Bag 100 ML IVPB SCH (20:13)
[2021-03-12 03:14] LABS: Basophils % 0.2 %; Eosinophils % 2.8 %; Red Blood Count 2.57 M/mcL (3.82-4.97)
[2021-03-12 03:16] LABS: Eosinophils # 0.2 K/mcL (0.0-0.6); Hematocrit 24.2 % (35.3-44.9); Hemoglobin 7.9 g/dL (11.5-15.4); Immature Granulocytes % 0.3 % (0-4); Immature Platelets 3.1 % (1.1-6.1); Lymphocytes # 0.6 K/mcL (0.6-4.6); Lymphocytes % 9.7 %; Mean Corpuscular HGB Conc 32.6 g/dL (31.6-35.5); Mean Corpuscular Hemoglobin 30.7 pg (28.0-33.3); Mean Corpuscular Volume 94.2 fL (83.0-100.0); Monocytes # 0.3 K/mcL (0.0-1.3); Monocytes % 4.8 %; Neutrophils # 5.3 K/mcL (1.6-8.9); Red Cell Distribution Width 14.1 % (11.5-14.5); Segmented Neutrophils % 82.2 %; White Blood Count 6.4 K/mcL (4.3-11.1)
[2021-03-12 03:19] LABS: Platelet Count 82 K/mcL (140-400)
[2021-03-12 03:22] LABS: Albumin/Globulin Ratio 1.1 (1.1-2.2); Bilirubin,Total 0.4 mg/dL (0.3-1.0); Calcium 8.6 mg/dL (8.6-10.3); Globulin 2.7 g/dL (2.4-3.5); Potassium 4.1 mEq/L (3.5-5.1); Total Protein 5.7 g/dL (6.4-8.9)
[2021-03-12] MEDS: Piperacillin/Tazobactam 3.375 GM in 0.9 % Sodium Chloride Mini Bag 100 ML IVPB SCH (04:36)
[2021-03-12] MEDS ORDERED: Apixaban 5 MG TABLET PO SCH ×2 (09:00→21:00)
[2021-03-12] MEDS ORDERED: levETIRAcetam 250 MG TABLET PO SCH ×2 (09:00→21:00)
[2021-03-12] MEDS ORDERED: Artificial Tears SOLN 15 ML BOTTLE BOTH EYES SCH (09:00)
[2021-03-12] MEDS ORDERED: Aspirin 81 MG TAB.CHEW PO SCH (09:00)
[2021-03-12] MEDS ORDERED: calcitrioL 0.25 MCG CAPSULE PO SCH (09:00)
[2021-03-12] MEDS ORDERED: Furosemide 40 MG TABLET PO SCH (09:00)
[2021-03-12] MEDS ORDERED: polyethylene glycoL 3350 17 GM POWD.PACK PO SCH (09:00)
[2021-03-12] MEDS ORDERED: Budesonide/Formoterol 160/4.5 1 PUFF INH IH SCH (10:00)
[2021-03-12 11:01] VITALS: BP 129/59
[2021-03-12] MEDS ORDERED: Amoxicillin/Clavulanate 500 MG TABLET PO SCH (17:00)
[2021-03-12] MEDS ORDERED: Doxycycline 100 MG CAPSULE PO SCH (21:00)
== END 2021-03-12 15:24 ==
LOC: 2ANU 10:14 → EMEROOARM 10:14 → SUATTDRO 16:13 → 2ANU 16:52
PROVIDERS: ADMIT Family Medicine; ATTEND Family Medicine

== ENCOUNTER 2021-03-28 10:03 | Inpatient (IN) ==
[2021-03-28] MEDS ORDERED: Isovue-370 500 ML BOTTLE IVP ONE (10:09)
[2021-03-28 10:22] LABS: Hematocrit 25.9 % (35.3-44.9); Mean Corpuscular HGB Conc 30.9 g/dL (31.6-35.5); Mean Corpuscular Hemoglobin 30.1 pg (28.0-33.3); Mean Corpuscular Volume 97.4 fL (83.0-100.0); Mean Platelet Volume 10.4 fL (9.4-12.4); Platelet Count 102 K/mcL (140-400); Red Blood Count 2.66 M/mcL (3.82-4.97); Red Cell Distribution Width 13.8 % (11.5-14.5); White Blood Count 4.6 K/mcL (4.3-11.1)
[2021-03-28 10:58] LABS: BUN/Creatinine Ratio 26 (6-26); Blood Urea Nitrogen 63 mg/dL (8-23); Calcium 9.5 mg/dL (8.6-10.3); Carbon Dioxide 28 mEq/L (23-29); Chloride 104 mEq/L (98-107); Glucose 80 mg/dL (70-105); Osmolality,Calculated 299 (280-300); Potassium 4.7 mEq/L (3.5-5.1); Sodium 136 mEq/L (136-145); Troponin I < 0.03 ng/mL (< 0.04); eGFR For African Americans 23 (> 60); eGFR For Non-African Americans 19 (> 60)
[2021-03-28] MEDS ORDERED: 0.9 % Sodium Chloride 500 ML IVC SCH (13:00)
[2021-03-28] MEDS ORDERED: Perflutren Lipid Microsphere 1.3 ML in 0.9 % Sodium Chloride 8.7 ML IVP PRN (14:53)
[2021-03-28] MEDS ORDERED: Ipratropium/Albuterol Neb 3 ML IH PRN (14:53)
[2021-03-28] MEDS ORDERED: Naloxone 0.4 MG/ML INJ IVP PRN (14:59)
[2021-03-28] MEDS ORDERED: Ondansetron 4 MG/2 ML VIAL IVP PRN (14:59)
[2021-03-28] MEDS: Budesonide/Formoterol 160/4.5 1 PUFF INH IH SCH (20:03)
[2021-03-28] MEDS: levETIRAcetam 250 MG TABLET PO SCH (21:00)
[2021-03-28] MEDS: QUEtiapine Fumarate 25 MG TABLET PO SCH (21:00)
[2021-03-28] MEDS: Apixaban 5 MG TABLET PO SCH (21:01)
[2021-03-28] MEDS: *HR* HYDROcodone/Acet 5/325 mg TABLET PO PRN (21:01)
[2021-03-29] MEDS: *HR* HYDROcodone/Acet 5/325 mg TABLET PO PRN ×2 (03:03→16:26)
[2021-03-29 06:45] LABS: Basophils % 0.2 %; Eosinophils # 0.1 K/mcL (0.0-0.6); Eosinophils % 1.7 %; Hematocrit 28.1 % (35.3-44.9); Hemoglobin 9.1 g/dL (11.5-15.4); Immature Granulocytes % 0.4 % (0-4); Lymphocytes # 0.6 K/mcL (0.6-4.6); Lymphocytes % 12.4 %; Mean Corpuscular HGB Conc 32.4 g/dL (31.6-35.5); Mean Corpuscular Hemoglobin 31.3 pg (28.0-33.3); Mean Corpuscular Volume 96.6 fL (83.0-100.0); Mean Platelet Volume 11.1 fL (9.4-12.4); Monocytes # 0.2 K/mcL (0.0-1.3); Monocytes % 4.7 %; Neutrophils # 3.8 K/mcL (1.6-8.9); Nucleated Red Blood Cells 0.4 /100 WBC (0); Platelet Count 118 K/mcL (140-400); Red Blood Count 2.91 M/mcL (3.82-4.97); Red Cell Distribution Width 13.7 % (11.5-14.5); Segmented Neutrophils % 80.6 %; White Blood Count 4.7 K/mcL (4.3-11.1)
[2021-03-29 07:00] LABS: INR 1.8; Prothrombin Time 20.1 Seconds (9.4-12.1)
[2021-03-29 07:02] LABS: Magnesium 2.3 mg/dL (1.6-2.6); Phosphorous 4.9 mg/dL (2.7-4.5)
[2021-03-29 07:03] LABS: Activated Partial Thrombo Time 39.5 Seconds (26.0-36.0)
[2021-03-29 07:04] LABS: Albumin 3.3 g/dL (3.5-5.7); Bilirubin,Total 0.3 mg/dL (0.3-1.0); Calcium 9.8 mg/dL (8.6-10.3); Chol/HDL Ratio 4.4 (0-4.9); Globulin 3.3 g/dL (2.4-3.5); Potassium 4.5 mEq/L (3.5-5.1); Total Protein 6.6 g/dL (6.4-8.9)
[2021-03-29] MEDS ORDERED: Acetaminophen 325 MG TABLET PO PRN (07:25)
[2021-03-29] MEDS: Budesonide/Formoterol 160/4.5 1 PUFF INH IH SCH ×2 (09:58→19:47)
[2021-03-29] MEDS: levETIRAcetam 250 MG TABLET PO SCH ×2 (10:23→21:13)
[2021-03-29] MEDS: calcitrioL 0.25 MCG CAPSULE PO SCH (10:24)
[2021-03-29] MEDS: Apixaban 5 MG TABLET PO SCH ×2 (10:24→21:12)
[2021-03-29] MEDS: Aspirin 81 MG TAB.CHEW PO SCH (10:24)
[2021-03-29] MEDS: polyethylene glycoL 3350 17 GM POWD.PACK PO SCH (10:24)
[2021-03-29] MEDS: Fluticasone Propionate Nasal 50 MCG/SPRAY BOTTLE NS SCH (14:29)
[2021-03-29] MEDS ORDERED: *HR* HYDROcodone/Acet 5/325 mg TABLET PO SCH (21:00)
[2021-03-29] MEDS: QUEtiapine Fumarate 25 MG TABLET PO SCH (21:13)
[2021-03-30] MEDS: *HR* HYDROcodone/Acet 5/325 mg TABLET PO PRN ×2 (06:26→19:49)
[2021-03-30] MEDS: Budesonide/Formoterol 160/4.5 1 PUFF INH IH SCH ×2 (07:56→19:45)
[2021-03-30] MEDS: Apixaban 5 MG TABLET PO SCH ×2 (10:20→21:47)
[2021-03-30] MEDS: levETIRAcetam 250 MG TABLET PO SCH ×2 (10:20→21:47)
[2021-03-30] MEDS: Aspirin 81 MG TAB.CHEW PO SCH (10:20)
[2021-03-30] MEDS: calcitrioL 0.25 MCG CAPSULE PO SCH (10:20)
[2021-03-30] MEDS: Fluticasone Propionate Nasal 50 MCG/SPRAY BOTTLE NS SCH (10:20)
[2021-03-30] MEDS: polyethylene glycoL 3350 17 GM POWD.PACK PO SCH (10:21)
[2021-03-30 11:23] LABS: Bilirubin,Urine Negative (Negative); Blood,Urine Negative (Negative); Clarity,Urine Clear (Clear); Color,Urine Light-Yellow (Yellow); Glucose,Urine (UA) Normal (Normal); Ketones,Urine Negative (Negative); Leukocyte Esterase,Urine Negative (Negative); Nitrite,Urine Negative (Negative); Protein,Urine Trace mg/dL (Neg-Trace); Specific Gravity,Urine 1.026 (1.010-1.025); Urobilinogen,Urine Normal (Normal)
[2021-03-30] MEDS: QUEtiapine Fumarate 25 MG TABLET PO SCH (21:47)
[2021-03-31 03:24] LABS: Basophils % 0.2 %; Eosinophils # 0.1 K/mcL (0.0-0.6); Eosinophils % 2.1 %; Hematocrit 25.6 % (35.3-44.9); Hemoglobin 7.8 g/dL (11.5-15.4); Immature Granulocytes % 0.5 % (0-4); Lymphocytes # 0.8 K/mcL (0.6-4.6); Lymphocytes % 13.6 %; Mean Corpuscular HGB Conc 30.5 g/dL (31.6-35.5); Mean Corpuscular Hemoglobin 29.7 pg (28.0-33.3); Mean Corpuscular Volume 97.3 fL (83.0-100.0); Mean Platelet Volume 10.7 fL (9.4-12.4); Monocytes # 0.4 K/mcL (0.0-1.3); Monocytes % 7.2 %; Neutrophils # 4.5 K/mcL (1.6-8.9); Platelet Count 100 K/mcL (140-400); Red Blood Count 2.63 M/mcL (3.82-4.97); Red Cell Distribution Width 13.9 % (11.5-14.5); Segmented Neutrophils % 76.4 %; White Blood Count 5.8 K/mcL (4.3-11.1)
[2021-03-31 03:50] LABS: Calcium 9.4 mg/dL (8.6-10.3); Magnesium 2.4 mg/dL (1.6-2.6); Phosphorous 4.7 mg/dL (2.7-4.5); Potassium 4.9 mEq/L (3.5-5.1)
[2021-03-31] MEDS: polyethylene glycoL 3350 17 GM POWD.PACK PO SCH (09:35)
[2021-03-31] MEDS: *HR* HYDROcodone/Acet 5/325 mg TABLET PO PRN (09:36)
[2021-03-31] MEDS: calcitrioL 0.25 MCG CAPSULE PO SCH (09:36)
[2021-03-31] MEDS: levETIRAcetam 250 MG TABLET PO SCH ×2 (09:37→22:23)
[2021-03-31] MEDS: Aspirin 81 MG TAB.CHEW PO SCH (09:37)
[2021-03-31] MEDS: Apixaban 5 MG TABLET PO SCH ×2 (09:37→22:23)
[2021-03-31] MEDS: Fluticasone Propionate Nasal 50 MCG/SPRAY BOTTLE NS SCH (09:38)
[2021-03-31] MEDS: Budesonide/Formoterol 160/4.5 1 PUFF INH IH SCH ×2 (09:54→22:15)
[2021-03-31] MEDS: QUEtiapine Fumarate 25 MG TABLET PO SCH (22:24)
[2021-04-01 05:21] LABS: Hemoglobin 8.1 g/dL (11.5-15.4)
[2021-04-01 05:41] LABS: Calcium 9.6 mg/dL (8.6-10.3); Magnesium 2.4 mg/dL (1.6-2.6); Potassium 5.5 mEq/L (3.5-5.1)
[2021-04-01] MEDS: Budesonide/Formoterol 160/4.5 1 PUFF INH IH SCH ×2 (07:30→20:19)
[2021-04-01] MEDS: polyethylene glycoL 3350 17 GM POWD.PACK PO SCH (08:54)
[2021-04-01] MEDS: *HR* HYDROcodone/Acet 5/325 mg TABLET PO PRN (08:55)
[2021-04-01] MEDS: levETIRAcetam 250 MG TABLET PO SCH ×2 (08:55→20:42)
[2021-04-01] MEDS: Aspirin 81 MG TAB.CHEW PO SCH (08:55)
[2021-04-01] MEDS: Fluticasone Propionate Nasal 50 MCG/SPRAY BOTTLE NS SCH (08:56)
[2021-04-01] MEDS: calcitrioL 0.25 MCG CAPSULE PO SCH (08:56)
[2021-04-01] MEDS: Apixaban 5 MG TABLET PO SCH ×2 (08:56→20:42)
[2021-04-01] MEDS: QUEtiapine Fumarate 25 MG TABLET PO SCH (20:42)
[2021-04-02 05:06] LABS: Calcium 9.3 mg/dL (8.6-10.3); Magnesium 2.2 mg/dL (1.6-2.6); Phosphorous 3.5 mg/dL (2.7-4.5); Potassium 4.2 mEq/L (3.5-5.1)
[2021-04-02] MEDS: polyethylene glycoL 3350 17 GM POWD.PACK PO SCH (08:26)
[2021-04-02] MEDS: Aspirin 81 MG TAB.CHEW PO SCH (08:26)
[2021-04-02] MEDS: calcitrioL 0.25 MCG CAPSULE PO SCH (08:26)
[2021-04-02] MEDS: levETIRAcetam 250 MG TABLET PO SCH (08:26)
[2021-04-02] MEDS: Apixaban 5 MG TABLET PO SCH (08:26)
[2021-04-02] MEDS: Fluticasone Propionate Nasal 50 MCG/SPRAY BOTTLE NS SCH (08:27)
[2021-04-02] MEDS: Budesonide/Formoterol 160/4.5 1 PUFF INH IH SCH (10:03)
[2021-04-02 15:36] LABS: ABG Base Excess -1 mEq/L (-2 to 3); ABG HCO3 24 mEq/L (21-27); ABG Oxygen Saturation 94 % (95-98); ABG PCO2 43 mmHg (35-45); ABG PH 7.36 pH Units (7.32-7.45); ABG PO2 73 mmHg (85-104); ABG TCO2 26 mEq/L (20-26)
[2021-04-02 15:59] VITALS: BP 120/73; PULSE 86; TEMP 98.2; O2SAT 100
[2021-04-02 16:09] LABS: Adenovirus Not Detected (Not Detect); Bordetella Pertussis Not Detected (Not Detect); Chlamydophila pneumoniae Not Detected (Not Detect); Coronavirus 229E Not Detected (Not Detect); Coronavirus HKU1 Not Detected (Not Detect); Coronavirus NL63 Not Detected (Not Detect); Coronavirus OC43 Not Detected (Not Detect); Human Metapneumovirus Not Detected (Not Detect); Human Rhinovirus/Enterovirus Not Detected (Not Detect); Influenza A Subtype 2009 H1 Not Detected (Not Detect); Influenza B Not Detected (Not Detect); Mycoplasma pneumoniae Not Detected (Not Detect); Parainfluenza Virus 1 Not Detected (Not Detect); Parainfluenza Virus 2 Not Detected (Not Detect); Parainfluenza Virus 3 Not Detected (Not Detect); Parainfluenza Virus 4 Not Detected (Not Detect); Respiratory Syncytial Virus Not Detected (Not Detect); SARS-CoV-2 Not Detected (Not Detect)
== END 2021-04-02 17:54 | DRG 92 ==
LOC: EMEROOARM 10:03 → CDU 10:03 → SUATTDRO 12:22 → CDU 13:12 → 2ANU 03-29 04:20
PROVIDERS: ADMIT Internal Medicine; ATTEND Internal Medicine

== ENCOUNTER 2021-04-14 20:50 | Inpatient (IN) ==
[2021-04-14] MEDS ORDERED: Pantoprazole 80 MG in 0.9 % Sodium Chloride 50 ML IVPB ONE (21:14)
[2021-04-14 21:41] LABS: Basophils % 0.1 %; Eosinophils # 0.1 K/mcL (0.0-0.6); Eosinophils % 1.2 %; Hemoglobin 7.6 g/dL (11.5-15.4); Immature Granulocytes % 1.7 % (0-4); Lymphocytes # 0.7 K/mcL (0.6-4.6); Lymphocytes % 10.2 %; Mean Corpuscular HGB Conc 31.7 g/dL (31.6-35.5); Mean Corpuscular Hemoglobin 29.1 pg (28.0-33.3); Mean Platelet Volume 10.1 fL (9.4-12.4); Monocytes # 0.5 K/mcL (0.0-1.3); Monocytes % 7.7 %; Neutrophils # 5.4 K/mcL (1.6-8.9); Platelet Count 186 K/mcL (140-400); Red Blood Count 2.61 M/mcL (3.82-4.97); Red Cell Distribution Width 13.5 % (11.5-14.5); Segmented Neutrophils % 79.1 %; White Blood Count 6.9 K/mcL (4.3-11.1)
[2021-04-14 21:49] LABS: INR 2.7
[2021-04-14 21:52] LABS: Activated Partial Thrombo Time 36.2 Seconds (26.0-36.0)
[2021-04-14 22:01] LABS: Albumin 2.7 g/dL (3.5-5.7); Albumin/Globulin Ratio 0.7 (1.1-2.2); Bilirubin,Total 0.3 mg/dL (0.3-1.0); Calcium 8.6 mg/dL (8.6-10.3); Globulin 3.7 g/dL (2.4-3.5); Magnesium 1.9 mg/dL (1.6-2.6); Total Protein 6.4 g/dL (6.4-8.9)
[2021-04-15] MEDS ORDERED: Ondansetron 4 MG/2 ML VIAL IVP PRN (00:03)
[2021-04-15] MEDS ORDERED: Naloxone 0.4 MG/ML INJ IVP PRN (00:03)
[2021-04-15] MEDS: 0.9 % Sodium Chloride 1,000 ML IVC SCH ×2 (01:07→11:37)
[2021-04-15 02:28] LABS: Albumin 2.6 g/dL (3.5-5.7); Albumin/Globulin Ratio 0.7 (1.1-2.2); Bilirubin,Total 0.3 mg/dL (0.3-1.0); Calcium 8.4 mg/dL (8.6-10.3); Globulin 3.5 g/dL (2.4-3.5); Potassium 4.5 mEq/L (3.5-5.1); Total Protein 6.1 g/dL (6.4-8.9)
[2021-04-15 02:39] LABS: Basophils % 0.4 %; Eosinophils # 0.1 K/mcL (0.0-0.6); Hematocrit 28.1 % (35.3-44.9); Hemoglobin 8.8 g/dL (11.5-15.4); Immature Granulocytes % 1.8 % (0-4); Lymphocytes # 1.3 K/mcL (0.6-4.6); Lymphocytes % 19.6 %; Mean Corpuscular HGB Conc 31.3 g/dL (31.6-35.5); Mean Corpuscular Volume 95.9 fL (83.0-100.0); Mean Platelet Volume 9.9 fL (9.4-12.4); Monocytes # 0.7 K/mcL (0.0-1.3); Monocytes % 10.5 %; Neutrophils # 4.5 K/mcL (1.6-8.9); Platelet Count 159 K/mcL (140-400); Red Blood Count 2.93 M/mcL (3.82-4.97); Red Cell Distribution Width 13.6 % (11.5-14.5); Segmented Neutrophils % 66.7 %; White Blood Count 6.8 K/mcL (4.3-11.1)
[2021-04-15] MEDS: Pantoprazole 40 MG VIAL IVP SCH ×2 (05:32→17:14)
[2021-04-15] MEDS ORDERED: *HR* Propofol 200 MG/20 ML VIAL IVP ONE (10:20)
[2021-04-15] MEDS ORDERED: Lidocaine -MPF 2% 5 ML VIAL ONE (10:20)
[2021-04-15] MEDS ORDERED: *HR* Norepinephrine 4 MG/4 ML VIAL IVC ONE (10:38)
[2021-04-15] MEDS ORDERED: *HR* Vasopressin 20 UNIT/ML VIAL ONE (10:38)
[2021-04-15] MEDS: cefTRIAXone 1,000 MG in Water for inj. (sterile) 10 ML IVP SCH (11:37)
[2021-04-15] MEDS: Azithromycin 250 MG TABLET PO SCH (11:38)
[2021-04-15 21:13] LABS: Hematocrit 23.1 % (35.3-44.9)
[2021-04-15 21:15] LABS: Hemoglobin 7.2 g/dL (11.5-15.4)
[2021-04-15 21:20] LABS: Prothrombin Time 22.8 Seconds (9.4-12.1)
[2021-04-16] MEDS: Pantoprazole 40 MG VIAL IVP SCH ×2 (04:57→18:30)
[2021-04-16 05:24] LABS: Hematocrit 22.7 % (35.3-44.9); Mean Corpuscular HGB Conc 30.8 g/dL (31.6-35.5); Mean Corpuscular Volume 94.2 fL (83.0-100.0); Mean Platelet Volume 9.6 fL (9.4-12.4); Platelet Count 175 K/mcL (140-400); Red Blood Count 2.41 M/mcL (3.82-4.97); Red Cell Distribution Width 13.3 % (11.5-14.5)
[2021-04-16 05:48] LABS: Albumin 2.6 g/dL (3.5-5.7); Albumin/Globulin Ratio 0.7 (1.1-2.2); Bilirubin,Total 0.3 mg/dL (0.3-1.0); Calcium 8.4 mg/dL (8.6-10.3); Globulin 3.6 g/dL (2.4-3.5); Total Protein 6.2 g/dL (6.4-8.9)
[2021-04-16] MEDS: cefTRIAXone 1,000 MG in Water for inj. (sterile) 10 ML IVP SCH (09:33)
[2021-04-16] MEDS: Azithromycin 250 MG TABLET PO SCH (09:33)
[2021-04-16] MEDS ORDERED: 0.9 % Sodium Chloride 500 ML ONE (09:40)
[2021-04-16] MEDS ORDERED: LEVETIRACETAM 500 MG PO SCH (11:15)
[2021-04-16] MEDS ORDERED: levETIRAcetam 250 MG TABLET PO SCH (11:15)
[2021-04-16] MEDS: levETIRAcetam 250 MG TABLET PO SCH (11:52)
[2021-04-16] MEDS: Artificial Tears SOLN 15 ML BOTTLE BOTH EYES SCH ×3 (15:58→22:12)
[2021-04-16] MEDS ORDERED: Tranexamic Acid 1,000 MG, Syringe CATH TIP 1 EACH in Water for inj. (sterile) 10 ML NS ONE (16:05)
[2021-04-16 17:18] LABS: Hematocrit 25.2 % (35.3-44.9); Hemoglobin 8.5 g/dL (11.5-15.4); Mean Corpuscular HGB Conc 33.7 g/dL (31.6-35.5); Mean Corpuscular Hemoglobin 30.2 pg (28.0-33.3); Mean Corpuscular Volume 89.7 fL (83.0-100.0); Mean Platelet Volume 9.9 fL (9.4-12.4); Platelet Count 178 K/mcL (140-400); Red Blood Count 2.81 M/mcL (3.82-4.97); Red Cell Distribution Width 14.3 % (11.5-14.5); White Blood Count 8.1 K/mcL (4.3-11.1)
[2021-04-16] MEDS: QUEtiapine Fumarate 25 MG TABLET PO SCH (22:12)
[2021-04-17] MEDS: Pantoprazole 40 MG VIAL IVP SCH ×2 (06:18→17:15)
[2021-04-17 06:58] LABS: Calcium 8.4 mg/dL (8.6-10.3); Potassium 3.8 mEq/L (3.5-5.1)
[2021-04-17] MEDS: Artificial Tears SOLN 15 ML BOTTLE BOTH EYES SCH ×4 (09:34→22:34)
[2021-04-17] MEDS: levETIRAcetam 250 MG TABLET PO SCH (09:34)
[2021-04-17] MEDS: cefTRIAXone 1,000 MG in Water for inj. (sterile) 10 ML IVP SCH (09:34)
[2021-04-17] MEDS: Azithromycin 250 MG TABLET PO SCH (09:35)
[2021-04-17 10:45] LABS: Hematocrit 24.3 % (35.3-44.9); Hemoglobin 7.8 g/dL (11.5-15.4); Mean Corpuscular HGB Conc 32.1 g/dL (31.6-35.5); Mean Corpuscular Volume 90.3 fL (83.0-100.0); Mean Platelet Volume 9.4 fL (9.4-12.4); Platelet Count 152 K/mcL (140-400); Red Blood Count 2.69 M/mcL (3.82-4.97); Red Cell Distribution Width 14.2 % (11.5-14.5); White Blood Count 6.9 K/mcL (4.3-11.1)
[2021-04-17] MEDS ORDERED: *HR* Phytonadione 5 MG TABLET PO ONE (17:01)
[2021-04-17 17:43] LABS: Immature Reticulocyte % 24.2 % (11.0-38.0); Retculocyte # 0.06 M/mcL (0.05-0.10)
[2021-04-17 17:50] LABS: INR 1.5; Prothrombin Time 16.8 Seconds (9.4-12.1)
[2021-04-17 18:05] LABS: % Iron Saturation 7 % (15-50); Iron 12 mcg/dL (50-170); Lactate Dehydrogenase 115 Units/L (140-271); Transferrin 116 mg/dL (203-362)
[2021-04-17 18:23] LABS: Ferritin 598 ng/mL (10-120)
[2021-04-17 18:28] LABS: Folate 6.6 ng/mL (3.0-16.0)
[2021-04-17] MEDS: QUEtiapine Fumarate 25 MG TABLET PO SCH (22:33)
[2021-04-18] MEDS: Pantoprazole 40 MG VIAL IVP SCH (06:46)
[2021-04-18 08:03] LABS: Hematocrit 22.6 % (35.3-44.9); Hemoglobin 7.5 g/dL (11.5-15.4); Mean Corpuscular HGB Conc 33.2 g/dL (31.6-35.5); Mean Corpuscular Volume 90.4 fL (83.0-100.0); Mean Platelet Volume 9.6 fL (9.4-12.4); Platelet Count 143 K/mcL (140-400); Red Cell Distribution Width 13.8 % (11.5-14.5); White Blood Count 6.7 K/mcL (4.3-11.1)
[2021-04-18 08:18] LABS: Calcium 8.1 mg/dL (8.6-10.3)
[2021-04-18] MEDS: cefTRIAXone 1,000 MG in Water for inj. (sterile) 10 ML IVP SCH (09:35)
[2021-04-18] MEDS: Azithromycin 250 MG TABLET PO SCH (09:36)
[2021-04-18] MEDS: Artificial Tears SOLN 15 ML BOTTLE BOTH EYES SCH ×4 (09:36→20:46)
[2021-04-18] MEDS: levETIRAcetam 250 MG TABLET PO SCH (09:37)
[2021-04-18] MEDS ORDERED: Isovue-370 500 ML BOTTLE IVP ONE (13:01)
[2021-04-18] MEDS ORDERED: *HR* Heparin 5,000 UNIT/ML VIAL IVP PRN ×2 (13:08)
[2021-04-18] MEDS ORDERED: *HR* Heparin 5,000 UNIT/ML VIAL IVP ONE (13:08)
[2021-04-18] MEDS ORDERED: Heparin 25,000UNIT/250ML 1/2NS 25,000 UNIT/250 ML IV.SOLN IVC SCH (13:15)
[2021-04-18 14:23] LABS: Hematocrit 23.9 % (35.3-44.9); Hemoglobin 7.6 g/dL (11.5-15.4); Mean Corpuscular HGB Conc 31.8 g/dL (31.6-35.5); Mean Corpuscular Hemoglobin 28.9 pg (28.0-33.3); Mean Corpuscular Volume 90.9 fL (83.0-100.0); Mean Platelet Volume 9.7 fL (9.4-12.4); Platelet Count 157 K/mcL (140-400); Red Blood Count 2.63 M/mcL (3.82-4.97); Red Cell Distribution Width 13.6 % (11.5-14.5); White Blood Count 8.1 K/mcL (4.3-11.1)
[2021-04-18 14:34] LABS: Heparin anti-factor XA UFH 0.09 IU/mL (0.30-0.70)
[2021-04-18 14:35] LABS: INR 1.4; Prothrombin Time 15.5 Seconds (9.4-12.1)
[2021-04-18] MEDS: QUEtiapine Fumarate 25 MG TABLET PO SCH (20:46)
[2021-04-19] MEDS: levETIRAcetam 250 MG TABLET PO SCH (09:22)
[2021-04-19] MEDS: Artificial Tears SOLN 15 ML BOTTLE BOTH EYES SCH ×4 (09:22→21:46)
[2021-04-19] MEDS: cefTRIAXone 1,000 MG in Water for inj. (sterile) 10 ML IVP SCH (09:23)
[2021-04-19] MEDS: Azithromycin 250 MG TABLET PO SCH (09:23)
[2021-04-19 09:32] LABS: Hematocrit 24.9 % (35.3-44.9); Hemoglobin 7.8 g/dL (11.5-15.4); Mean Corpuscular HGB Conc 31.3 g/dL (31.6-35.5); Mean Corpuscular Volume 92.6 fL (83.0-100.0); Mean Platelet Volume 9.5 fL (9.4-12.4); Platelet Count 155 K/mcL (140-400); Red Blood Count 2.69 M/mcL (3.82-4.97); Red Cell Distribution Width 13.8 % (11.5-14.5)
[2021-04-19 09:51] LABS: Calcium 8.4 mg/dL (8.6-10.3); Potassium 4.1 mEq/L (3.5-5.1)
[2021-04-19] MEDS ORDERED: *HR* HYDROcodone/Acet 5/325 mg TABLET PO ONE ×2 (19:27→21:45)
[2021-04-19] MEDS: QUEtiapine Fumarate 25 MG TABLET PO SCH (21:45)
[2021-04-20 06:42] LABS: Hematocrit 23.1 % (35.3-44.9); Hemoglobin 7.3 g/dL (11.5-15.4); Mean Corpuscular HGB Conc 31.6 g/dL (31.6-35.5); Mean Corpuscular Hemoglobin 29.3 pg (28.0-33.3); Mean Corpuscular Volume 92.8 fL (83.0-100.0); Mean Platelet Volume 9.9 fL (9.4-12.4); Platelet Count 144 K/mcL (140-400); Red Blood Count 2.49 M/mcL (3.82-4.97); Red Cell Distribution Width 13.7 % (11.5-14.5); White Blood Count 6.8 K/mcL (4.3-11.1)
[2021-04-20 06:54] LABS: Calcium 8.3 mg/dL (8.6-10.3); Potassium 3.9 mEq/L (3.5-5.1)
[2021-04-20 07:54] VITALS: BP 137/61; PULSE 78; TEMP 98.4; O2SAT 100
[2021-04-20] MEDS: levETIRAcetam 250 MG TABLET PO SCH (09:48)
[2021-04-20] MEDS: Artificial Tears SOLN 15 ML BOTTLE BOTH EYES SCH (09:50)
== END 2021-04-20 17:31 | DRG 377 ==
LOC: EMEROOARM 20:50 → 3ANU 20:50 → SUATTDRO 04-15 12:45
PROVIDERS: ADMIT Internal Medicine; ATTEND Internal Medicine